=== PATIENT | female | born 1950 | race Caucasian/White ===

== ENCOUNTER 2019-10-09 06:00 | Outpatient (RCR) | payer MEDICARE, OTHER, SELFPAY | END 2019-11-08 00:01 | LOC: SPT 06:00 | PROVIDERS: Family Provider Family Medicine; Visit Provider Orthopaedic Surgery | DX: M25.512 Pain in left shoulder (principal); S42.295D Other nondisplaced fracture of upper end of left humerus, subsequent encounter for fracture with routine healing; X58.XXXD Exposure to other specified factors, subsequent encounter | CPT/HCPCS: 97110 ×3; G0283 ×3 ==

== ENCOUNTER 2019-11-09 06:00 | Outpatient (RCR) | payer MEDICARE, OTHER, SELFPAY | END 2019-12-09 23:59 | disposition home or self-care (01) | LOC: SPT 06:00 | PROVIDERS: Family Provider Family Medicine; PCP Family Medicine; Visit Provider Orthopaedic Surgery | DX: S42.202D Unspecified fracture of upper end of left humerus, subsequent encounter for fracture with routine healing (principal); X58.XXXD Exposure to other specified factors, subsequent encounter ==

== ENCOUNTER 2019-12-13 12:34 | Outpatient (CLI) | payer MEDICARE, OTHER, SELFPAY ==
--- NOTE | 2019-12-13 12:50 | XR_ITS ---
WS: [id number] KNEES AP STANDING TECHNIQUE: Bilateral AP weightbearing view. CLINICAL INFORMATION: BILATERAL KNEE PAIN COMPARISON: None. FINDINGS: Moderate to advanced degenerative arthritis both knees with medial compartment narrowing. Hypertrophi c changes along the joint line. Hypertrophic patella bilaterally moderate degenerative narrowing at t he patellofemoral articulations. XR/[place] [id number] IMPRESSION: Moderate to advanced tricompartmental arthritis both knees worse in the medial joint compartments.
== END 2019-12-13 12:35 | disposition home or self-care (01) ==
LOC: RAD 12:39
PROVIDERS: Family Provider Family Medicine; PCP Family Medicine; Visit Provider Orthopaedic Surgery
DX: M13.862 Other specified arthritis, left knee (principal); M13.861 Other specified arthritis, right knee
CPT/HCPCS: 73565

== ENCOUNTER 2019-12-21 10:42 | Outpatient (CLI) | payer MEDICARE, OTHER, SELFPAY ==
--- NOTE | 2019-12-21 10:53 | XRR_ITS ---
PROCEDURE INFORMATION: Exam: XR Abdomen, 2 Views Exam date and time: 12/21/2019 10:54 AM Age: 69 years old Clinical indication: Condition or disease; Other: Cath obstruction subsequent/esrd/dependent on renal dialysis; Prior surgery; Surgery date: 6+ months; Surgery type: Dialysis catheter TECHNIQUE: Imaging protocol: XR of the abdomen. Views: 2 Views. COMPARISON: CR Abdomen 2 views [id number] 10/10/2019 12:44 PM FINDINGS: Tubes, catheters and devices: Peritoneal dialysis catheter within the left pelvis. Gastrointestinal tract: bowel gas pattern is nonspecific. Air filled large bowel including distal rectal gas. Moderate amount stool throughout the large bowel. Medicinal capsule Intraperitoneal space: Normal. No free air. Bones/joints: Unremarkable for age. XR/XR abdomen min 2V [id number] IMPRESSION: 1. Peritoneal dialysis catheter within the left pelvis. 2. Bowel gas pattern is nonspecific. Air filled large bowel including distal rectal gas. 3. Moderate amount stool throughout the large bowel.
== END 2019-12-21 10:43 | disposition home or self-care (01) ==
PROVIDERS: Family Provider Family Medicine; PCP Family Medicine; Visit Provider Internal Medicine Nephrology
DX: T85.691D Other mechanical complication of intraperitoneal dialysis catheter, subsequent encounter (principal); N18.6 End stage renal disease; Z99.2 Dependence on renal dialysis
CPT/HCPCS: 74019

== ENCOUNTER 2020-01-10 11:29 | Emergency (ER) | payer MEDICARE, OTHER, SELFPAY ==
[2020-01-10 11:36] VITALS: BP 109/58; PULSE 79; RESP 16; TEMP 37; O2SAT 100; BMI 27.1
--- NOTE | 2020-01-10 11:47 | XR_ITS ---
WS: [id number] XR chest 1V portable [id number] REASON FOR EXAM: dizzness FINDINGS: Comparisons were made to August 24, 2019. There is elevation of the right hemidiaphragm with atelectasis in the right lower lung. Slight fullne ss off the right hilum is seen. A Mediport is seen extending from the left side. There is postop changes in the axilla on the left. The left shoulder shows a permeated pattern a fracture line is not seen but metastatic changes is fatemeh pected. XR/XR chest 1V portable [id number] IMPRESSION: Atelectasis of the right right lower lung with a nodule in the right hilum. Suspected destructive changes in the left proximal humerus. Postop changes in the axilla on the left. A Mediport is seen in good position extends from the left side.
--- NOTE | 2020-01-10 11:47 | ECG_ITS ---
Measurements Intervals [place] Rate: 75 P: 65 NE: 162 QRS: -18 QRSD: 118 T: 47 QT: 414 QTc: 463 SINUS RHYTHM INCOMPLETE RIGHT BUNDLE BRANCH BLOCK SEPTAL MYOCARDIAL INFARCTION , PROBABLY OLD [40+ ms Q WAVE IN V1/V2] Compared to ECG 06/14/2019 09:24:00 Incomplete right bundle-branch block now present Myocardial infarct finding now present Left-axis deviation no longer present Electronically Signed On 01-10-2020 13:18:05 RECEIVING WORKER by Elsie Villagomez M.D. [id number] valdes
--- NOTE | 2020-01-10 14:33 | CT_ITS ---
WS: [id number] CT scan of the chest Without IV contrast, CT scan of the abdomen and pelvis without IV contrast an d oral contrast. Additional two-dimensional coronal and sagittal reconstruction was performed. 020 Clinical Data: elevated right diaphragm and metastatic changes left humerus Comparison: CT abdomen pelvis, 01/28/2018. DLP: 1278.[address] scans at [facility] use at least one of these dose optimization techniques: automat ed exposure control; mA and/or kV adjustment per patient size (includes targeted exams where dose is matched to clinical indication); or iterative reconstruction. Findings: Chest: There is a moderate right pleural effusion. The left lung is clear. There are no nodules or masses. T here is coronary artery calcification. The heart size is normal with a minimal pericardial effusion. There are clips in the left axilla from surgery. The pulmonary arterial system and thoracic aorta demonstrate no abnormalities or dilatations. There i s atherosclerotic calcification of the thoracic aorta. There is no axillary or significant mediastinal adenopathy. The bones of the thorax show no fractures or evidence of metastatic disease. Abdomen/pelvis: The gallbladder shows calcification of the wall and there may be small gallstones. The liver, spleen, adrenal glands and pancreas are normal. The kidneys show no cysts, masses, hydronephrosis or renal calculi. The abdominal aorta is normal in size with calcification in the wall. No appendicitis or diverticulitis is seen. The small bowel, stomach and colon show only fecal materia l throughout the colon. No abscess, adenopathy, ascites, mass, obstruction or free air is seen. The b ladder is unremarkable. There are bilateral fat-containing inguinal hernias. The uterus shows calcifi cation probably from a uterine leiomyoma.. There is a tube curled in the inferior aspect of the abdom en. The bones of the lower thorax, lumbar spine, pelvis, and hips show no metastatic lesions. There i s degenerative disc narrowing at L2-L3.. CT/CT chest abd pel wo con Impression: 1. Moderate right pleural effusion. 2. Gallbladder wall calcification with possible small gallstones. 3. Tube curled in the pelvis overlying the bladder.
--- NOTE | 2020-01-10 14:33 | CT_ITS ---
WS: [id number] CT scan of the left arm and humerus. Additional two-dimensional coronal and sagittal reconstruction w as performed. MIP images were also performed. 01/10/2020 Clinical Data: metastatic changes proximal humerus Comparison: Left shoulder x-ray, 10/25/2019. DLP: 2704.43 mGy-cm All CT scans at [facility] use at least one of these dose optimization techniques: automat ed exposure control; mA and/or kV adjustment per patient size (includes targeted exams where dose is matched to clinical indication); or iterative reconstruction. Findings: The comminuted impacted fracture of the left humeral neck shows periosteal new bone formation. The fr acture lines are still visible. The shaft of the humerus does not show any evidence of metastatic dis ease. The visualized elbow is unremarkable. CT/CT humerus LT wo con* [id number] Impression: Healing fracture of the left humeral neck.
--- NOTE | 2020-01-10 14:42 | PC.NURSE ---
PHYSICAL ASSESSMENT Chief Complaint: Dizzy Hx: Started after dialysis last night. GENERAL / NEURO / PSYCH: Alert and oriented x 4 GIOVANI COMA SCORE: 15 HEENT: No facial asymmetry noted. Mucous membranes are pink. RESPIRATORY: Denies complaints CVS: Capillary refill less than 2 seconds. Pulses within normal limits. GI / : Abdomen soft and nontender and normal bowel sounds. SKIN: Skin intact. Skin is warm and dry. Normal skin turgor. - Patient resting at this time. No needs.
[2020-01-10 15:06] LABS: Influenza A by IFA Negative (Negative); Influenza B by IFA Negative (Negative)
--- NOTE | 2020-01-10 15:07 | W.ED.DIZZY ---
HPI - Dizziness General: Chief Complaint: Dizziness Stated Complaint: DIZZY Time Seen by Provider: 01/10/20 14:25 History of Present Illness: HPI Narrative: Patient with history of node in lung with lymph node biopsies left side. In here days to come from dialysis and was dizzy prior to then dizzy with movement of her head but while she still her thing feels fine she went down to [facility] saw Dr. Mendez after dialysis and he sent her up here no testing was done except blood test done at dialysis MD elicited complaint: dizziness and disequilibrium Onset (ago): hour(s) Timing: gradual onset Severity: mild Description: sense of movement Exacerbating factors: change in body position Relieving factors: remaining still Associated symptoms: Reports no associated symptoms and headache(s); Denies chest pain, chills, nausea, nasal congestion or vomiting Associated neuro symptoms: Reports no associated symptoms Review of Systems Const: Denies: fever, chills or body aches Eyes: Denies: change in vision or blurry vision ENMT: Denies: throat pain or nasal congestion Card: Denies: chest pain or shortness of breath on exertion Resp: Denies: shortness of breath, productive cough or non-productive cough GI: Denies: abdominal pain, nausea or vomiting Musc: Denies: extremity pain Skin/Breast: Denies: rash Neuro: Reports: headache and other (Dizziness with movement okay while sitting still) Psych: Denies: anxiety or depression Dave/Lymph: Denies: easy bruising PFSH ED PFSH: Social History Smoking and tobacco status: never smoked Alcohol intake: never Physical Exam Const: COMMON NORMALS: no apparent distress, average body habitus, oriented x3 and alert HENMT: COMMON NORMALS: normocephalic HEAD & SCALP: normal to inspection and normocephalic FACE & SINUS: normal facial exam Eye: COMMON NORMALS: conjunctivae normal GENERAL EYE: normal appearance of both eyes CONJUNCTIVA: Yes conjunctivae normal Neck/C-Spine: COMMON NORMALS: no JVD Chest: COMMONS NORMALS: inspection of chest normal Resp: COMMON NORMALS: normal respiratory effort and clear to auscultation bilaterally AUSCULTATION: clear to auscultation bilaterally Cardio: COMMON NORMALS: no JVD, regular rate and regular rhythm RATE: regular rate RHYTHM: regular rhythm GI: COMMON NORMALS: normal to inspection, nondistended, normoactive bowel sounds Extremity: COMMON NORMALS: normal to inspection and full ROM Neuro: COMMON NORMALS: oriented x3, CN's II-XII intact bilaterally and moves all extremities SENSORIUM/ORIENTATION: Yes alert Course Vital Signs: Vital signs: Vital Signs Temperature 98.6 F 01/10/20 11:36 Pulse Rate 74 01/10/20 16:30 Respiratory Rate 17 01/10/20 16:30 Blood Pressure 127/67 01/10/20 16:30 Pulse Oximetry 98 01/10/20 16:30 MDM - Dizziness MDM Narrative: Medical decision making narrative: Discussed case with Dr. Lion Lab Data: Labs: Lab Results 01/10/20 01/10/20 01/10/20 Range/Units 14:40 15:51 15:51 WBC 12.2 H (4.0-10.0) 10^3/ uL RBC 3.42 L (4.1-5.3) 10^6/u L Hgb 10.4 L (11.5-15.3) g/dL Hct 30.1 L (37.0-47.0) % MCV 88.0 (81-99) fL MCH 30.4 (28.0-34.0) pg MCHC 34.6 (30.0-36.0) g/dL RDW 14.4 (12.1-15.1) % Plt Count 296 (130-400) 10^3/c mm MPV 10.8 H (7.4-10.4) fL Neut % (Auto) 78.9 % Lymph % (Auto) 13.0 % Moody % (Auto) 4.9 % Eos % (Auto) 0.8 % Baso % (Auto) 0.4 % Neut # (Auto) 9.6 H (1.8-7.7) 10^3/u L Lymph # (Auto) 1.6 (0.8-4.8) 10^3/u L Moody # (Auto) 0.6 (0.2-0.9) 10^3/u L Eos # (Auto) 0.1 (0.0-0.8) 10^3/u L Baso # (Auto) 0.1 (0.0-0.1) 10^3/u L Nucleated RBC % (a uto) 0 % Nucleated RBCs # 0.0 /100WBC Sodium 133 L (136-145) mmol/L Potassium 3.7 (3.5-5.1) mmol/L Chloride 88 L (98-107) mmol/L Carbon Dioxide 27 (22-29) mmol/L Anion Gap 21.7 H (5-19) BUN 105 H* (8-23) mg/dL Creatinine 6.1 H* (0.5-0.9) mg/dL Glucose 205 H (65-115) mg/dL Calcium 9.6 (8.5-10.5) mg/dL Total Bilirubin 0.4 (0.15-1.2) mg/dL AST 11 (0-32) U/L ALT 14 (0-33) U/L Alkaline Phosphata se 92 (35-105) IU/L Total Protein 7.9 (6.6-8.7) g/dL Albumin 4.1 (3.5-5.2) g/dL Globulin 3.8 (1.3-4.6) g/dL Influenza Type A A g Negative (Negative) POC Influenza B Ag Negative (Negative) Discharge Plan Discharge Prescriptions: No Action tamsulosin 0.4 mg capsule 0.4 mg PO DAILY RF: 0 atorvastatin 20 mg tablet 20 mg PO DAILY RF: 0 metolazone 5 mg tablet 5 mg PO DAILY RF: 0 amlodipine 5 mg tablet 10 mg PO DAILY RF: 0 furosemide [Lasix] 80 mg tablet 80 mg PO QAM RF: 0 levothyroxine 200 mcg capsule 200 mcg PO DAILY RF: 0 ferrous sulfate 325 mg (65 mg iron) tablet 325 mg PO DAILY RF: 0 amitriptyline 10 mg tablet 100 mg PO DAILY RF: 0 losartan 50 mg tablet 50 mg PO DAILY RF: 0 potassium chloride 10 mEq capsule, extended release 20 meq PO DAILY RF: 0 torsemide 100 mg tablet 50 mg PO DAILY RF: 0 calcitriol 0.5 mcg Capsule 0.5 mcg PO DAILY RF: 0 ropinirole 0.5 mg tablet 0.5 mg PO BEDTIME RF: 0 Aldactone 50 mg Tablet 50 mg PO DAILY RF: 0 Novolog Flexpen U-100 Insulin 100 unit/mL (3 mL) insulin pen See Rx Instructions .ROUTE .COMPLEX RF: 0 Tresiba FlexTouch U-100 100 unit/mL (3 mL) insulin pen See Rx Instructions .ROUTE .COMPLEX RF: 0 RenaPlex-D 800 mcg-12.5 mg -2,000 unit tablet 1 tab PO DAILY RF: 0 Coding Level of Care Code ED Malt Specifications Control Assistant for Chg Fwd Exam Comprehensive
[2020-01-10 15:56] LABS: Basophils # 0.1 10^3/uL (0.0-0.1); Basophils % 0.4 %; Eosinophils # 0.1 10^3/uL (0.0-0.8); Eosinophils % 0.8 %; Hematocrit 30.1 % (37.0-47.0); Hemoglobin 10.4 g/dL (11.5-15.3); Lymphocytes # 1.6 10^3/uL (0.8-4.8); Mean Corpuscular HGB Conc 34.6 g/dL (30.0-36.0); Mean Corpuscular Hemoglobin 30.4 pg (28.0-34.0); Mean Platelet Volume 10.8 fL (7.4-10.4); Monocytes # 0.6 10^3/uL (0.2-0.9); Monocytes % 4.9 %; Neutrophils # 9.6 10^3/uL (1.8-7.7); Neutrophils % 78.9 %; Nucleated Red Blood Cells % 0 %; Platelet Count 296 10^3/cmm (130-400); Red Blood Count 3.42 10^6/uL (4.1-5.3); Red Cell Distribution Width 14.4 % (12.1-15.1); White Blood Count 12.2 10^3/uL (4.0-10.0)
[2020-01-10 16:11] LABS: Alanine Aminotransferase 14 U/L (0-33); Albumin Level 4.1 g/dL (3.5-5.2); Alkaline Phosphatase 92 IU/L (35-105); Anion Gap 21.7 (5-19); Aspartate Amino Transferase 11 U/L (0-32); Calcium 9.6 mg/dL (8.5-10.5); Carbon Dioxide 27 mmol/L (22-29); Chloride 88 mmol/L (98-107); Globulin 3.8 g/dL (1.3-4.6); Glucose 205 mg/dL (65-115); Potassium 3.7 mmol/L (3.5-5.1); Sodium 133 mmol/L (136-145); Total Bilirubin 0.4 mg/dL (0.15-1.2); Total Protein 7.9 g/dL (6.6-8.7)
[2020-01-10 16:20] LABS: Blood Urea Nitrogen 105 mg/dL (8-23)
--- NOTE | 2020-01-10 16:24 | PC.NURSE ---
BUN 105 creatinine 6.1. Anya notified.
[2020-01-10] MEDS: meclizine 25 mg tablet PO (16:28)
[2020-01-10 16:30] VITALS: BP 127/67; PULSE 74; RESP 17; O2SAT 98
[2020-01-10 17:06] VITALS: BP 110/75; PULSE 70; RESP 14; O2SAT 98
== END 2020-01-10 17:07 | disposition home or self-care (01) ==
PROVIDERS: Emergency Provider Nurse Practitioner Family; Family Provider Family Medicine; PCP Family Medicine
DX: R42 Dizziness and giddiness (principal); R51 Headache; Z99.2 Dependence on renal dialysis
CPT/HCPCS: 36415; 71045; 71250; 73200; 74176; 80053; 85025; 87804; 93005; 99281; 99283; J8597

== ENCOUNTER 2020-02-06 08:22 | Outpatient (CLI) | payer MEDICARE, OTHER, SELFPAY ==
--- NOTE | 2020-02-06 08:31 | US_ITS ---
WS: [id number] ULTRASOUND-GUIDED THORACENTESIS, diagnostic and therapeutic. HISTORY: PLEURAL EFFUSION(RT SIDE) Procedure, risks, and complications were explained to the patient. With the patient in an upright pos ition, the skin over the RIGHT posterior thorax was cleansed with ChloraPrep and anesthetized with 1% buffered lidocaine. A 5 Danish Yueh needle is inserted into the pleural fluid without complication. Approximately 1200 cc of clear pleural fluid is removed without difficulty. Pleural fluid specimen collected and sent for analysis as requested. / thoracentesis [id number] IMPRESSION: 1. RIGHT thoracentesis yielding 1200 cc of fluid. 2. Chest radiograph to follow to evaluate for pneumothorax. 3. Pleural fluid collected and sent for analysis as requested.
[2020-02-06 09:15] VITALS: BP 120/63; PULSE 90; RESP 18; TEMP 36.8; O2SAT 95; BMI 27.4
[2020-02-06 09:59] LABS: INR 1.07 (0.8-1.2)
--- NOTE | 2020-02-06 10:25 | XR_ITS ---
WS: [id number] PORTABLE CHEST HISTORY: thoracentesis COMPARISON: None available. Status post RIGHT thoracentesis. There is very minimal residual pleural fluid. Slight elevation of th e RIGHT hemidiaphragm with RIGHT basilar atelectasis. LEFT subclavian Port-A-Cath with tip in the dis ginette SVC. Prior LEFT axillary abdoulaye dissection. LEFT lung is clear. No pneumothorax. Cardiac size: Normal. Mediastinum/Aorta: Mild atherosclerosis aorta. Known healing fracture in the proximal LEFT humerus. XR/XR chest 1V portable [id number] IMPRESSION: 1. Small residual RIGHT pleural effusion and RIGHT basilar atelectasis. 2. No pneumothorax postthoracentesis.
== END 2020-02-06 08:23 | disposition home or self-care (01) ==
LOC: RAD 08:28
PROVIDERS: Radiology Diagnostic Radiology; Family Provider Family Medicine; PCP Family Medicine; Visit Provider Internal Medicine Nephrology
DX: J90 Pleural effusion, not elsewhere classified (principal); J98.11 Atelectasis; J93.83 Other pneumothorax
CPT/HCPCS: 32555; 36591; 36592; 71045; 82945; 85610

== ENCOUNTER 2020-02-23 09:49 | Outpatient (CLI) | payer MEDICARE, OTHER, SELFPAY ==
--- NOTE | 2020-02-23 | XR_ITS ---
WS: [id number] CHEST 2 VIEWS HISTORY: PLEURAL EFFUSION COMPARISON: 02/06/2020 Lungs: Slight elevation of the RIGHT hemidiaphragm. Elevation of the diaphragms likely due to a combi nation of a small effusion with atelectasis. No pneumothorax. LEFT lung is clear. Cardiac size: Normal. Mediastinum/Aorta: Mild atherosclerosis aorta. LEFT subclavian Port-A-Cath in good position. Bones: Healed fracture proximal LEFT humerus. Prior LEFT axillary abdoulaye dissection. XR/XR chest 2V* [id number] IMPRESSION: 1. Volume loss and increased density at the RIGHT lung base. Probably combinat ion of subsegmental atelectasis and small effusion. Progressed since 02/06/2020. 2. No pneumonia.
== END 2020-02-23 09:50 | disposition home or self-care (01) ==
LOC: RAD 09:54
PROVIDERS: Family Provider Family Medicine; PCP Family Medicine; Visit Provider Internal Medicine Nephrology
DX: J91.8 Pleural effusion in other conditions classified elsewhere (principal)
CPT/HCPCS: 71046

== ENCOUNTER 2020-03-16 10:08 | Day surgery (SDC) | payer MEDICARE, OTHER, SELFPAY ==
[2020-03-15 15:06] VITALS: BMI 26.7
[2020-03-16 10:23] VITALS: BP 112/66; PULSE 77; RESP 18; TEMP 36.1; O2SAT 96
--- NOTE | 2020-03-16 11:21 | P.HPUD_ITS ---
Surgery/Procedure H&P Update DATE OF PROCEDURE: March 16, 2020 DATE H&P PERFORMED: 03/15/20 H&P UPDATE INFORMATION: I have reviewed H&P completed within last 30 days, I have examined patient prior to procedure and No changes to prior documentation PLANNED PROCEDURE: Patient is here for right-sided Pleurx catheter placement. Operation Date: 03/16/20 12:10 Proposed Procedures p [place] Drain Placement Indwelling Pleural Catheter Insertion [id number] J90(Not Applicable) - Mitchell Hinkle MD
--- NOTE | 2020-03-16 12:44 | PM.OP ---
Operative Report Date of procedure: March 16, 2020 Pre-op Diagnosis: Right-sided recurrent pleural effusion Post-op diagnosis: same Brief History: 69-year-old female with recurrent right-sided pleural fluid requiring thoracentesis coming in for Pleurx catheter placement. The eventual plan is to perform pleurodesis as outpatient. Procedure: Name of the procedure: Right-sided Pleurx catheter placement Anesthesia: Monitor anesthesia care. Local: 1% lidocaine 13 mL. Fentanyl 25 mcg, Versed 1 mg. Description of the procedure: The patient was brought to the preop area and underwent conscious sedation. The patient was placed in left lateral position. Using the ultrasound a safe fluid pocket was identified in the right eighth intercostal space in the midaxillary line. The site was marked. The site was then prepared using sterile technique. 1% lidocaine was used to anesthetize the skin and subcutaneous tissue periosteum and the pleural space was entered. Straw-colored fluid was aspirated. The introducer needle was then introduced into the pleural space. The guide wire was introduced and left in place. About 6 cm from the initial introduction site in the anterolateral chest wall a second incision was made. The pleural catheter was then tunneled under the skin with the help of a trocar. The initial site was then dilated and the Pleurx catheter was advanced into the pleural space without any difficulty. The incision sites were sutured. There was good hemostasis. 1600 cc of straw-colored fluid was drained. Pleural fluid is sent for analysis including cell count and differential, pH, LDH, glucose, protein, Gram stain culture, fungal stain culture, AFB stain and culture, cytology. Complications: None Follow-up: 1. The patient will follow-up with me in 10 days time for removal of sutures.
--- NOTE | 2020-03-16 12:47 | XR_ITS ---
WS: [id number] XR chest 1V portable [id number] REASON FOR EXAM: Post Pleurx catheter placement FINDINGS: Pleurx catheter is seen placed in the lower right chest. The Mediport is seen in good position extending from the left side. There is a healing fracture of the surgical neck of the left humerus. There is no fluid is now seen in the right lung base. There is arteriosclerotic changes seen in the arch the aorta. XR/XR chest 1V portable [id number] IMPRESSION: Markedly improved right pleural effusion after insertion of a Pleurx catheter.
[2020-03-16 12:51] VITALS: BP 97/48; PULSE 71; RESP 18; TEMP 36.1; O2SAT 96
[2020-03-16 13:09] LABS: Body Fluid Polynuclear #Cells 0.009 10^3/uL; Body Fluid WBC 80 /uL; Monocytes # Body Fluid 0.071 10^3/uL; RBC, Body Fluid 1 10^3/uL (0-0)
[2020-03-16 13:36] LABS: LDH Body Fluid 37 U/L; Total Protein Pleural Fluid 1.1 g/dL
[2020-03-16 14:04] LABS: Apprearance, Body Fluid CLEAR (CLEAR); Color, Body Fluid PALE YELLOW (PALE YELLOW)
--- NOTE | 2020-03-16 14:04 | SUR.PHASEII ---
[id number] Discharge: [facility]yler fritz [facility] contacted regarding referral for home health services. [place] drain to be drained daily as ordered. Patient to be called within 24 hours for admission to home health.
== END 2020-03-16 13:45 | disposition home or self-care (01) ==
PROVIDERS: PCP Family Medicine; Visit Provider Internal Medicine Critical Care Medicine
PROC: (CPT 32550; principal; 2020-03-16 12:00)
DX: J90 Pleural effusion, not elsewhere classified (principal); I10 Essential (primary) hypertension; Z85.3 Personal history of malignant neoplasm of breast; E11.9 Type 2 diabetes mellitus without complications; Z79.4 Long term (current) use of insulin; E03.9 Hypothyroidism, unspecified
CPT/HCPCS: 32550; 12345; 71045; 80500; 82945; 83615; 83986; 84157; 87070; 87075; 87205; 88112; 88305; 89050; C1729; J1642; T1015-U1

== ENCOUNTER 2020-03-28 13:20 | Day surgery (SDC) | payer MEDICARE, OTHER, SELFPAY ==
[2020-03-27 10:12] VITALS: BMI 26.7
--- NOTE | 2020-03-28 | SCC_ITS ---
Procedure Done: Right IJ dual-lumen tunneled dialysis catheter placement 62.7 seconds of fluoroscopic guidance, for a cumulative dose of 6.69 mGy, was provided to Dr. Kaufman by the radiology department. C-arm images of the chest were saved for the patient's permanent record. [facility]
--- NOTE | 2020-03-28 | SC_ITS ---
WS: [id number] INTRAOPERATIVE TECHNIQUE: 3 Spot fluoroscopic images for intraoperative purposes. FLUOROSCOPY TIME: 62.7 seconds CLINICAL INFORMATION: DIALYSIS CATH COMPARISON: None. FINDINGS: Right dual-lumen central venous dialysis catheter with tip in the distal SVC. Left Port-A-Cath with t ip in the right atrium. No pneumothorax. SC/C-arm FL for CVA [id number] IMPRESSION: Images obtained for intraoperative purposes.
--- NOTE | 2020-03-28 11:11 | P.ANESASSM_ITS ---
Documented by User: Neeta Hwang 03/28/20 11:14 Pre-Anesthetic Assessment Pre-Anesthetic Assessment: Height/Weight: Height 1.6 m Weight 68.492 kg Preop Diagnosis: Right-sided recurrent pleural effusion Proposed Procedure: Operation Date: 03/28/20 14:55 Proposed Procedures p Split Jorge Catheter Placement(Not Applicable) - Delbert Kaufman MD CV/HEM: CV/HEM: HTN and OK (septal mI, RBBB) : : Chronic renal failure (ESRD on dialysis (peritoneal)) Metabolic: Metabolic: DM, Hyperlipidemia and Thyroid Anesthetic Plan: ASA status: 4 Anesthesia: MAC Risk of > 500 ml blood loss (7ml/kg in children): No PFSH Anesthesia PFSH: Medical History Cataract Closed fracture of left proximal humerus History of peritoneal dialysis HTN (hypertension) Hx of breast cancer Hyperlipidemia Hypothyroidism Microcytic anemia Type 2 diabetes mellitus Surgical History H/O knee surgery H/O skin graft H/O tubal ligation History of kidney surgery History of lumpectomy of left breast History of surgery on arm Hx of cataract surgery Hx of tonsillectomy S/P dialysis catheter insertion Family History Mother Stroke Father Stroke Social History Smoking and tobacco status: never smoked Alcohol intake: never Lives independently: Yes Household members: spouse Marital status: Current occupational status: employed History of recent travel: No Current gender identity: Female Data Anesthesia Cardiac Studies: No Data to Display Documented by User: Delbert Hatfield Jr, CRNA 03/28/20 14:22 Pre-Anesthetic Assessment Pre-Anesthetic Assessment: Preop Diagnosis: renal failure Proposed Pro cedure: Dialysis catheter Was Beta Jessa taken within 24 hours: N/A Last intake: 2300 Last Intake: 23:00 Social: Social History: No alcohol and No tobacco Exam: Pre-Anes Outpt Exam: alert, oriented x 3, clear to auscultation bilaterally and regular rate & rhythm Airway: Submandibular: WNL Cervical ROM: WNL MP: 2 Dentition: Full Pulmonary: Pulmonary: SOB CV/HEM: CV/HEM: Anemia, DVT (RLE 1971) and HTN : : Chronic renal failuer Hepatic: Hepatic: None reported GI: GI: None reported Metabolic: Metabolic: DM (avg 200-300) and Thyroid Musc/skel: Musc/skel: Lower Back Pain and OA/DJD Neuropsych: Neuropsych: None reported Anesthetic Plan: ASA status: 3 Anesthesia: Anesthesia Evaluation and MAC Risk of > 500 ml blood loss (7ml/kg in children): No PFSH Anesthesia PFSH: Medical History Cataract Closed fracture of left proximal humerus History of peritoneal dialysis HTN (hypertension) Hx of breast cancer Hyperlipidemia Hypothyroidism Microcytic anemia Type 2 diabetes mellitus Surgical History H/O knee surgery H/O skin graft H/O tubal ligation History of kidney surgery History of lumpectomy of left breast History of surgery on arm Hx of cataract surgery Hx of tonsillectomy S/P dialysis catheter insertion Family History Mother Stroke Father Stroke Social History Smoking and tobacco status: never smoked Alcohol intake: never Lives independently: Yes Household members: spouse Marital status: Current occupational status: employed History of recent travel: No Current gender identity: Female Data Anesthesia Cardiac Studies: No Data to Display
[2020-03-28 13:30] VITALS: BP 125/68; PULSE 70; RESP 18; TEMP 36.6; O2SAT 95
[2020-03-28] MEDS: sodium chloride 0.9% 1,000 ML 30 ML IV (14:35)
[2020-03-28] MEDS: vancomycin 500 MG in sodium chloride 0.9% (100 ml) 100 ML 200 MG IV (14:36)
--- NOTE | 2020-03-28 15:14 | W.PM.OPSUD ---
Surgery/Procedure H&P Update DATE OF PROCEDURE: March 28, 2020 DATE H&P PERFORMED: 03/15/20 H&P UPDATE INFORMATION: I have reviewed H&P completed within last 30 days, I have examined patient prior to procedure and No changes to prior documentation PREOP DIAGNOSIS: renal failure PRIMARY INDICATION FOR PROCEDURE: Inability to continue peritoneal dialysis due to pleural leak. PLANNED PROCEDURE: Operation Date: 03/28/20 14:55 Proposed Procedures p Split Jorge Catheter Placement(Not Applicable) - Delbert Kaufman MD
[2020-03-28] MEDS: lidocaine 1% INJ 20 mL INJECTION (16:07)
[2020-03-28] MEDS: heparin, porcine 1,000 unit/mL INJ 10 mL 6000 UNIT HE (16:08)
--- NOTE | 2020-03-28 16:32 | P.OP_ITS ---
Operative Report Date of procedure: March 28, 2020 Pre-op Diagnosis: renal failure Post-op diagnosis: same Procedure Done: Right IJ dual-lumen tunneled dialysis catheter placement Implants: Dual-lumen dialysis catheter Pathology: none sent Surgeon: Delbert Kaufman Anesthesia: MAC and Local (15 cc 1% lidocaine infiltrated locally) Complications: None: Post procedure chest x-ray pending Disposition: same day Brief History: Ms. Saab is a very pleasant 69-year-old female with chronic renal insufficiency. Original peritoneal dialysis is now not practical as she has a right pleural leak. Tunnel dialysis catheter which was recommended by her bankruptcy judge, Dr. Clark. Rationale for the procedure was carefully and frankly discussed. Appropriate consents have been reviewed and signed. Procedure: The entire chest was sterilely prepped and draped. With the patient in Trendelenburg position, and utilizing a modified Seldinger technique, the right jugular vein was engaged with a needle and easily aspirated of blood. Guidewire was placed and advanced without difficulty. The patient was returned to the supine position. The fluoroscopy was then used to confirm appropriate placement of the guidewire. Next, the dialysis catheter was measured to the appropriate length. A small incision was made laterally and inferiorly to the exit point of the guidewire. The dialysis catheter was then tunneled from this point medially to the point of exit of the guidewire on the chest wall after the tunnel had been infiltrated with 1% lidocaine. Velcro cuff was placed in this tunnel. Next, utilizing a series of dilators over the guidewire, under fluoroscopic guidance, the subcutaneous tract was dilated. Next, a dilator and tear-away sheath was placed over the guidewire and advanced under fluoroscopic guidance. Dilator and guidewire were removed. The dual-lumen dialysis catheter was then placed in the tear-away sheath as the tear-away sheath was removed. The entire system was interrogated with fluoroscopy to confirm appropriate position. Next, each lumen of the catheter was aspirated of air and blood and flushed with heparin solution. Securing caps and clamps were applied. The superior wound was closed with 4-0 Monocryll suture in a subcuticular fashion. The dialysis catheter was secured to the skin with 2-0 silk suture. A sterile dressing was applied. There were equal breath sounds bilaterally at the completion of the procedure. Post procedure chest x-ray will be obtained in recovery. We did family and marriage counsellor with the Ms. Saab and family at the completion of the procedure.
--- NOTE | 2020-03-28 16:42 | XRR_ITS ---
PROCEDURE INFORMATION: Exam: XR Chest, 1 View Exam date and time: 03/28/2020 4:57 PM Age: 69 years old Clinical indication: Device placement; Other: Jorge split catheter placement; Prior surgery; Surgery type: Port; Additional info: Post split jorge cath placement TECHNIQUE: Imaging protocol: XR of the chest Views: 1 view. COMPARISON: CR XR chest 1V portable [id number] 03/16/2020 1:04 PM FINDINGS: Tubes, catheters and devices: Tunneled right jugular hemodialysis catheter in place. Tip at cavoatrial junction. Left subclavian chest port in place. Right basilar PleurX chest drain in place. Lungs: Unremarkable. No consolidation. Pleural space: No pleural effusion. No pneumothorax. Heart/Mediastinum: No cardiomegaly. Vasculature: Mildly tortuous aorta with moderate arch atherosclerotic calcification. Bones/joints: Unremarkable. Soft tissues: Prior left breast surgery with left axillary clips in place. XR/XR chest 1V portable [id number] IMPRESSION: Tubes and catheters appear well-positioned.
[2020-03-28 16:45] VITALS: BP 119/54; PULSE 74; RESP 18; TEMP 36.4; O2SAT 93
[2020-03-28 17:13] VITALS: BP 145/68; PULSE 75; RESP 18; O2SAT 96
== END 2020-03-28 15:30 | disposition home or self-care (01) ==
PROVIDERS: PCP Family Medicine; Visit Provider Thoracic Surgery (Cardiothoracic Vascular Surgery)
PROC: (CPT 36561; principal; 2020-03-28 14:55)
DX: J90 Pleural effusion, not elsewhere classified (principal); E11.22 Type 2 diabetes mellitus with diabetic chronic kidney disease; I12.9 Hypertensive chronic kidney disease with stage 1 through stage 4 chronic kidney disease, or unspecified chronic kidney disease; N18.9 Chronic kidney disease, unspecified; E78.5 Hyperlipidemia, unspecified; E03.9 Hypothyroidism, unspecified; Z85.3 Personal history of malignant neoplasm of breast; M19.90 Unspecified osteoarthritis, unspecified site
CPT/HCPCS: 36561; 12345; 71045; 77001; 86850; 86900; C1750; J1644; J2001; J2704; J3010; J7030

== ENCOUNTER 2020-04-06 06:05 | Day surgery (SDC) | payer MEDICARE, OTHER, SELFPAY ==
[2020-04-06] VITALS (7 sets, daily range): BP systolic 116–135; BP diastolic 54–73; PULSE 78–81; RESP 18–20; TEMP 36.6–36.7; O2SAT 96–99
[2020-04-06 06:43] LABS: Glucose Point of Care 179 mg/dL (70-110)
[2020-04-06] MEDS: sodium chloride 0.9% 1,000 ML 30 ML IV (06:54)
--- NOTE | 2020-04-06 06:55 | W.PM.OPSUD ---
Surgery/Procedure H&P Update DATE OF PROCEDURE: April 06, 2020 DATE H&P PERFORMED: 03/27/20 H&P UPDATE INFORMATION: I have reviewed H&P completed within last 30 days, I have examined patient prior to procedure and No changes to prior documentation PREOP DIAGNOSIS: Recurrent right-sided pleural effusion PLANNED PROCEDURE: Right-sided pleurodesis with Pleurx catheter in place. Operation Date: 04/06/20 07:00 Proposed Procedures p Atkinson Drain Placement Indwelling Pleural Catheter Insertion [id number]/J91.8(Not Applicable) - Mitchell Hinkle MD
[2020-04-06] MEDS: midazolam 1 mg/mL INJ 2 mL IVP (07:20)
[2020-04-06] MEDS: lidocaine 1% INJ 20 mL XX (07:21)
--- NOTE | 2020-04-06 08:48 | PC.NURSE ---
NOTIFIED [facility] THAT DR LANG WANTED PTS POWER DRAIN TO BE DRAINED AT 1600 TODAY AND AGAIN AT 0600 TOMORROW MORNING. THEY SAID THAT HER NURSE WOULD BE THERE TODAY AND THAT THE CREAM MAKER NURSE WOULD BE THERE IN THE MORNING.
--- NOTE | 2020-04-06 08:51 | PC.NURSE ---
0720- PT 02 SAT STARTED TO DROP DURING PROCEDURE AFTER FENTANYL AND VERSED GIVEN. O2 AT 2L PER NC APPLIED, AND SATS BACK UP TO 99.
--- NOTE | 2020-04-06 08:54 | PC.NURSE ---
0745-PT RESTING, O2 REMOVED AND SATS STAYING ABOVE 95. HAVING PATIENT TURN EVERY 15 MIN AND PT TOLERATING THAT WELL. NO COMPLAINTS AT THIS TIME.
--- NOTE | 2020-04-06 09:31 | XRR_ITS ---
PROCEDURE INFORMATION: Exam: XR Chest, 1 View Exam date and time: 04/06/2020 9:45 AM Age: 69 years old Clinical indication: Screening exam; Other screening; Prior surgery; Surgery date: Post-operative (0-2 days); Surgery type: Post gray drain placement; Additional info: Post bronchoscopy TECHNIQUE: Imaging protocol: XR of the chest Views: 1 view. COMPARISON: CR XR chest 1V portable [id number] 03/28/2020 5:00 PM FINDINGS: Tubes, catheters and devices: Bilateral central venous catheters and right pleural drain again demonstrated. Lungs: Hyperinflation and mild interstitial prominence. Pleural space: No significant pleural effusion or pneumothorax. Heart/Mediastinum: Cardiac silhouette upper limits of normal in size. Vasculature: Calcification and ectasia of the thoracic aorta. Bones/joints: Degenerative change prior Soft tissues: Surgical clips in the left axilla. When correlating with the previous study, no significant interval changes are present. XR/XR chest 1V portable [id number] IMPRESSION: Stable appearance of the chest, not significantly changed from 03/28/2020 .
--- NOTE | 2020-04-06 09:32 | PM.ACPR ---
Procedure/Consent Time out: Time Out Performed: Yes Consent: Consent for Procedure: Consent obtained from patient Procedure Narrative: Name of the procedure: Right-sided pleurodesis using Pleurx catheter. Anesthetic: Lidocaine 1% 20 mL instilled into the pleural space, midazolam 1 mg, fentanyl 25 mcg. Description of the procedure: The Pleurx catheter was accessed. Last pleural drainage was about a week ago. 200 mL of straw-colored fluid was suctioned out. 20 mL of 1% lidocaine was then introduced into the pleural space. This was followed by 4 g of talc instilled into 50 cc syringes to a total of 100 cc. The talc was left in place for 1.5 hours. Repeat suctioning removed 100 cc of fluid. The patient tolerated the procedure well without any significant pain, development of shortness of breath or cardiac arrhythmia. Complications: None Follow-up: The plan is for her to drain her pleural space again at 4 PM today. Tomorrow morning she will have another session of drainage of the pleural fluid. After that she will get drained every day for the next 4 days. The patient follow-up with me in 2 weeks time in office. Acute Procedures Epistaxis Control: Time out performed: Yes
--- NOTE | 2020-04-06 09:42 | PC.NURSE ---
0938-CHEST XRAY DONE AND DR LANG LOOKED AT IT. LUNGS LOOK GOOD, AND PT OK TO GO HOME
--- NOTE | 2020-04-06 09:44 | PC.NURSE ---
4119- CALLED [facility] BACK AND LET THEM KNOW THAT THEY WOULD NEED TO SEE PT THE NEXT 4 DAYS TO DRAIN TUBE.
--- NOTE | 2020-04-06 10:41 | PC.NURSE ---
0720-200ml yellow fluid drained from glentana drain per Dr Hinkle using suction. Then 20ml lidocaine 1% instilled into drain, and 100ml talc solution instilled into drain. 0930-200ml yellow foamy fluid drained from glentana drain per Dr Hinkle using suction. During wait time, pt was turned every 15 min to rotate talc solution. Pt tolerated well
== END 2020-04-06 10:10 | disposition home or self-care (01) ==
PROVIDERS: PCP Family Medicine; Visit Provider Internal Medicine Critical Care Medicine
PROC: (CPT 32550; principal; 2020-04-06 07:00)
DX: J90 Pleural effusion, not elsewhere classified (principal)
CPT/HCPCS: 32550; 12345; 36416; 71045; 82962; 96374; 96375; J2001; J2250; J3010; J7030

== ENCOUNTER 2020-04-18 10:09 | Outpatient (CLI) | payer MEDICARE, OTHER, SELFPAY ==
--- NOTE | 2020-04-18 10:19 | XR_ITS ---
WS: [id number] Abdomen series, Flat and upright 04/18/2020 Clinical Data: CATHETER OBSTRUCTION/DEPENDENCE ON RENAL DIALYSIS/ESRD Comparison: KUB, 12/21/2019. Findings: There is a peritoneal dialysis catheter which enters the left side of the abdomen and is cu rled in the pelvis. There is also a catheter in the base of the right pleural space. There is a large bore catheter in the midportion of the abdomen. There is a large amount of fecal material throughout the colon. No abnormal masses or calcifications are present. Scattered air-fluid levels are seen on the erect film but there is no free air. No obstruction is present. XR/XR abdomen min 2V [id number] Impression: 1. Peritoneal dialysis catheter unchanged. 2. Large bore catheter in the mid abdomen. 3. Catheter at the base of the right pleural space unchanged. 4. Moderate generalized ileus.
== END 2020-04-18 10:10 | disposition home or self-care (01) ==
LOC: RAD 10:14
PROVIDERS: PCP Family Medicine; Visit Provider Internal Medicine Nephrology
DX: T85.691D Other mechanical complication of intraperitoneal dialysis catheter, subsequent encounter (principal); Z99.2 Dependence on renal dialysis; N18.6 End stage renal disease
CPT/HCPCS: 74019

== ENCOUNTER 2020-04-23 15:22 | Outpatient (CLI) | payer MEDICARE, OTHER, SELFPAY ==
--- NOTE | 2020-04-23 15:49 | XR_ITS ---
WS: [id number] XR chest 2V* [id number] REASON FOR EXAM: Status post pleurodesis FINDINGS: Left-sided pleurodesis shows mild blunting of the costophrenic angle. There is no pneumotho rax seen the triple-lumen catheter is seen in good position. A Mediport is seen in good position. There is mild thickening of the pleural space on the right side not seen on previous exam. XR/XR chest 2V* [id number] IMPRESSION: Mild thickening of the pleura along the lateral wall of the right lung Lumen catheter and Mediport unchanged. The right lung is hyper aerated in regards to the left.
== END 2020-04-23 15:23 | disposition home or self-care (01) ==
LOC: RAD 15:31
PROVIDERS: PCP Family Medicine; Visit Provider Internal Medicine Critical Care Medicine
DX: Z48.89 Encounter for other specified surgical aftercare (principal)
CPT/HCPCS: 71046

== ENCOUNTER 2020-05-01 09:15 | Inpatient (IN) | payer MEDICARE, OTHER, SELFPAY ==
[2020-05-01] VITALS (31 sets, daily range): BP systolic 113–155; BP diastolic 50–102; PULSE 61–95; RESP 15–29; TEMP 36.5–37.4; O2SAT 88–100; BMI 26.5
--- NOTE | 2020-05-01 09:28 | XR_ITS ---
WS: [id number] PORTABLE CHEST HISTORY: dyspnea/cough COMPARISON: 04/23/2020 RIGHT subclavian dialysis catheter remains unchanged in position. There is also Port-A-Cath present t hrough the LEFT subclavian vein with tip in the distal SVC. Lungs are clear and well expanded. No pleural effusion or pneumothorax. RIGHT thoracostomy tube is pr esent in the RIGHT lower thorax. No pneumothorax. Cardiac size: Normal. Mediastinum/Aorta: Mild atherosclerosis aorta. Healing pathological fracture involving the LEFT proximal humerus. Prior axillary abdoulaye dissection on the LEFT. XR/XR chest 1V portable [id number] IMPRESSION: 1. No pneumonia. 2. RIGHT lower thorax thoracostomy tube with no pneumothorax. No residual effu roseanne.
--- NOTE | 2020-05-01 09:46 | US_ITS ---
WS: [id number] Abdominal ultrasound, limited. History: Evaluate for ascites. Comparison: None. All 4 quadrants are imaged by ultrasound to evaluate for ascites. There is no peritoneal fluid identi fied. US/US abdomen limited [id number] IMPRESSION: No peritoneal ascites.
[2020-05-01 09:51] LABS: Basophils # 0.1 10^3/uL (0.0-0.1); Basophils % 0.3 %; Eosinophils % 0.1 %; Hematocrit 29.1 % (37.0-47.0); Hemoglobin 9.3 g/dL (11.5-15.3); Lymphocytes # 1.1 10^3/uL (0.8-4.8); Lymphocytes % 4.3 %; Mean Corpuscular Hemoglobin 28.5 pg (28.0-34.0); Mean Corpuscular Volume 89.3 fL (81-99); Mean Platelet Volume 10.6 fL (7.4-10.4); Monocytes # 0.9 10^3/uL (0.2-0.9); Monocytes % 3.3 %; Neutrophils # 23.5 10^3/uL (1.8-7.7); Neutrophils % 91.1 %; Nucleated Red Blood Cells % 0 %; Platelet Count 420 10^3/cmm (130-400); Red Blood Count 3.26 10^6/uL (4.1-5.3); Red Cell Distribution Width 15.8 % (12.1-15.1); White Blood Count 25.9 10^3/uL (4.0-10.0)
[2020-05-01 10:09] LABS: Lactate (Lactic Acid level) 2.3 mmol/L (0.5-2.2)
[2020-05-01] MEDS: ondansetron 2 mg/ML SDV 2 mL 4 MG IVP (10:12)
[2020-05-01 10:13] LABS: Alanine Aminotransferase 11 U/L (0-33); Albumin Level 3.4 g/dL (3.5-5.2); Alkaline Phosphatase 123 IU/L (35-105); Aspartate Amino Transferase 12 U/L (0-32); Blood Urea Nitrogen 56 mg/dL (8-23); Calcium 9.4 mg/dL (8.5-10.5); Carbon Dioxide 22 mmol/L (22-29); Chloride 89 mmol/L (98-107); Globulin 4.5 g/dL (1.3-4.6); Glucose 331 mg/dL (65-115); Lipase 20 U/L (13-60); Osmolality Calculated 275 mOsm/kg (285-295); Sodium 127 mmol/L (136-145); Total Bilirubin 0.7 mg/dL (0.15-1.2); Total Protein 7.9 g/dL (6.6-8.7)
[2020-05-01] MEDS: morphine 4 mg/mL SDV 1 mL IVP (10:15)
--- NOTE | 2020-05-01 11:06 | CT_ITS ---
WS: [id number] CT ABDOMEN AND PELVIS WITH CONTRAST HISTORY: Abdominal pain. Pain around dialysis catheter insertion site. TECHNIQUE: Imaging performed of the abdomen and pelvis with IV contrast. Single phase imaging of the abdomen. Coronal and sagittal reformats are submitted. All CT scans at [facility] use at least one of these dose optimization techniques: automated exposure control; mA and/or kV adjustment per patient size (includes targeted exams where dose is matched to clinical indication); or iterativ e reconstruction. IV CONTRAST: Visipaque 320; 75 mL IV. Oral contrast: No DLP: 573.12 mGy.cm COMPARISON: 01/10/2020 Lower thorax: [place] drain is noted at the RIGHT inferior thorax. There is no associated fluid remain ing. Heart is normal size. Small hiatal hernia. Liver/biliary system: Liver is moderately enlarged with mild diffuse intrahepatic duct dilatation. Gallbladder: Slightly contracted gallbladder with partially calcified gallbladder wall. No adjacent i nflammation. Pancreas: Atrophied pancreas. Spleen: Normal. Adrenal glands: Normal. Right kidney: Mild perinephric stranding with no obstruction. Left kidney: Mild perinephric stranding with no obstruction. Aorta: Heavy calcification with no aneurysm. Lymphadenopathy: None. Free fluid: None. GI tract: There is no GI tract obstruction. There is marked thickening of the distal small bowel at t he site of the dialysis catheter insertion. Abdominal wall: Marked abnormal appearance of the abdominal wall. The dialysis catheter enters the mi dline of the abdominal wall at the level of S1. At the insertion site of the catheter there is marked inflammation of the abdominal wall musculature and the soft tissues. Foci of air within the abdomina l wall musculature. The dialysis catheter is within the anterior pelvis and there is a large amount o f inflammation surrounding the peritoneal catheter and inseparable from the small bowel loops over th e lower pelvis. Pelvis: Well-distended urinary bladder. Uterus remains midline and atrophic. Bones: Unremarkable. Notified Florian Gerber DO at 05/01/2020 1:[address]/CT abdomen pelvis w con* [id number] IMPRESSION: 1. Significant inflammatory process involving the dialysis catheter insertion site, abdominal wall musculature and soft tissue and also the adjacent underlyi ng small bowel. Significant inflammatory process but no abscess. 2. Dissecting air along the LEFT abdominal wall. May be due to recent catheter manipulation or infection. 3. No ascites. 4. Calcified gallbladder wall. 5. Minimal intrahepatic bile duct dilatation of uncertain etiology. 6. Luis drain at the RIGHT inferior thorax with no adjacent fluid.
[2020-05-01] MEDS: cefTRIAXone 2,000 MG in sodium chloride 0.9% (plus) 50 ML 100 MG IV (11:26)
--- NOTE | 2020-05-01 11:27 | W.ED.ABDPA2 ---
HPI - Abdominal Pain General: Chief Complaint: Abdominal Pain Stated Complaint: DIALYSIS TUBE SITE PAIN Time Seen by Provider: 05/01/20 09:26 History of Present Illness: HPI narrative: 69-year-old female who is currently going through complications of peritoneal dialysis. In discussing it sounds like there is a fluid leak through the hiatus of the diaphragm putting fluid into the right side of her chest. They drained twice large amounts of peritoneal dialysis fluid out the right side of the chest using a Luis drain once 1200 and once [address] Shrestha for this today or clot her peritoneal dialysis port is also been clotted off the got bits of blood from it. She seen Dr. Hinkle for this she is supposed to be seeing Dr. Shrestha her usual golf club head inspector and adjuster is Dr. Clark. She presents today complaining of severe abdominal pain that began overnight. She denies any fever denies any respiratory symptoms prior to the draining the fluid from her chest she was severely short of breath but has not been recently. She does have a known hiatal hernia. They are hoping to return her back to peritoneal dialysis but she did recently have a tunneled dialysis catheter placed in the right subclavian she has a port in the left subclavian. MD elicited complaint: abdominal pain Pertinent past history: none Onset (ago): day(s) Pain Consistency: constant and intermittent Location: Diffuse Severity: severe Associated Symptoms: Denies bloating, chills, coffee ground emesis, constipation, diarrhea, dysuria, fever(s), hematochezia, hematemesis, melena, nausea and vomiting Review of Systems Const: Denies: fever(s), chills, body aches, change in appetite, fatigue or malaise ENMT: Denies: throat pain, ear or mastoid pain, nasal discharge or nasal congestion Card: Denies: chest pain, edema, dyspnea on exertion or orthopnea Resp: Denies: dyspnea, productive cough or non-productive cough GI: Denies: abdominal pain, nausea, vomiting, hematemesis, coffee ground emesis, diarrhea, constipation, bloating, hematochezia or melena : Denies: flank pain, difficulty voiding, dysuria, urinary frequency or urinary urgency Skin/Breast: Denies: rash or pruritus PFSH ED PFSH: Medical History (Updated 05/02/20 @ 12:08 by Cabrera Shrestha MD) Cataract Chronic kidney disease (CKD) Closed fracture of left proximal humerus Hemodialysis patient History of peritoneal dialysis HTN (hypertension) Hx of breast cancer Hyperlipidemia Hypothyroidism Microcytic anemia Type 2 diabetes mellitus Surgical History H/O knee surgery H/O skin graft H/O tubal ligation History of kidney surgery History of lumpectomy of left breast History of surgery Right-sided pleurodesis and Pleurx catheter placement History of surgery on arm Hx of cataract surgery Hx of tonsillectomy S/P dialysis catheter insertion Peritoneal dialysis catheter placement x3 according to patient, revisions had to be performed in [facility] at an outside facility Hemodialysis catheter placement Family History Mother Stroke Father Stroke Social History Smoking and tobacco status: never smoked Alcohol intake: never Lives independently: Yes Household members: spouse Marital status: Current occupational status: employed History of recent travel: No Current gender identity: Female Physical Exam Const: COMMON NORMALS: no acute distress GENERAL APPEARANCE: cooperative and comfortable ORIENTATION/CONSCIOUSNESS: Yes awake, Yes oriented to person, Yes oriented to place and Yes oriented to time HENMT: COMMON NORMALS: normocephalic, atraumatic, hearing grossly normal bilaterally, external ears normal, EAC's normal, TM's normal bilaterally, Normal nasal mucous membranes and turbinates present, moist oral mucous membranes and oropharynx normal HEAD & SCALP: normocephalic and atraumatic NOSE: Normal nasal mucous membranes and turbinates present EXTERNAL EAR: Yes external ears normal EXTERNAL AUDITORY CANAL: EAC's normal TYMPANIC MEMBRANE: TM's normal bilaterally Eye: COMMON NORMALS: Equal, round and reactive pupils present, EOMs intact bilaterally, conjunctivae normal and no scleral icterus CONJUNCTIVA: Yes conjunctivae normal PUPIL: Yes Equal, round and reactive pupils present Neck/C-Spine: COMMON NORMALS: full ROM, no lymphadenopathy, supple and no JVD Lymph: LYMPHATIC: no lymphadenopathy noted and no lymphedema noted Resp: COMMON NORMALS: normal respiratory effort, No retractions, No use of accessory muscles and clear to auscultation bilaterally AUSCULTATION: clear to auscultation bilaterally Cardio: COMMON NORMALS: no JVD, regular rate, regular rhythm and No murmurs present (Cardio) RATE: regular rate RHYTHM: regular rhythm GI: AUSCULTATION: Yes Hypoactive bowel sounds present PALPATION: Yes Tenderness to palpation present (GI) (Diffuse peritoneal signs), Yes Guarding due to palpation present (GI) and Yes Rigid due to palpation Extremity: COMMON NORMALS: normal to inspection, capillary refill normal, no clubbing, cyanosis or edema, no calf tenderness and no pedal edema Neuro: SENSORIUM/ORIENTATION: Yes oriented to person, Yes oriented to place and Yes oriented to time Course Vital Signs: Vital signs: Vital Signs Temperature 98.5 F 05/02/20 12:00 Pulse Rate 86 05/02/20 12:00 Respiratory Rate 19 H 05/02/20 12:00 Blood Pressure 125/55 05/02/20 12:00 Pulse Oximetry 100 05/02/20 12:00 MDM - Abdominal Pain MDM Narrative: Medical decision making narrative: Patient developed peritonitis. Discussed with Dr. Rdz will go ahead and admit also discussed with nephrology and Dr. Shrestha who is to see the patient later today. She will need heme dialysis. Lab Data: Labs: Lab Results 05/01/20 05/01/20 05/01/20 Range/Units 04:20 09:43 09:43 WBC 25.9 H (4.0-10.0) 10^3/ uL RBC 3.26 L (4.1-5.3) 10^6/u L Hgb 9.3 L (11.5-15.3) g/dL Hct 29.1 L (37.0-47.0) % MCV 89.3 (81-99) fL MCH 28.5 (28.0-34.0) pg MCHC 32.0 (30.0-36.0) g/dL RDW 15.8 H (12.1-15.1) % Plt Count 420 H (130-400) 10^3/c mm MPV 10.6 H (7.4-10.4) fL Neut % (Auto) 91.1 % Lymph % (Auto) 4.3 % [place] % (Auto) 3.3 % Eos % (Auto) 0.1 % Baso % (Auto) 0.3 % Neut # (Auto) 23.5 H (1.8-7.7) 10^3/u L Lymph # (Auto) 1.1 (0.8-4.8) 10^3/u L [place] # (Auto) 0.9 (0.2-0.9) 10^3/u L Eos # (Auto) 0.0 (0.0-0.8) 10^3/u L Baso # (Auto) 0.1 (0.0-0.1) 10^3/u L Nucleated RBC % (a uto) 0 % Nucleated RBCs # 0.0 /100WBC Sodium 127 L (136-145) mmol/L Potassium 5.0 (3.5-5.1) mmol/L Chloride 89 L (98-107) mmol/L Carbon Dioxide 22 (22-29) mmol/L Anion Gap 21.0 H (5-19) BUN 56 H (8-23) mg/dL Creatinine 4.4 H (0.5-0.9) mg/dL Glucose 331 H (65-115) mg/dL Calculated Osmolal ity 275 L (285-295) mOsm/k g Lactate (0.5-2.2) mmol/L Calcium 9.4 (8.5-10.5) mg/dL Total Bilirubin 0.7 (0.15-1.2) mg/dL AST 12 (0-32) U/L ALT 11 (0-33) U/L Alkaline Phosphata se 123 H (35-105) IU/L Total Protein 7.9 (6.6-8.7) g/dL Albumin 3.4 L (3.5-5.2) g/dL Globulin 4.5 (1.3-4.6) g/dL Lipase 20 (13-60) U/L Urine Color Yellow (Yellow) Urine Appearance Cloudy (CLEAR) Urine pH 7 (5-7) Ur Specific Gravit y 1.005 (1.005-1.030) Urine Protein Trace (Negative) Urine Glucose (UA) Norm (Normal) Urine Ketones Negative (Negative) Urine Blood 3+ H (Negative) Urine Nitrate Negative (Negative) Urine Bilirubin Neg (NEGATIVE) Urine Urobilinogen Norm (Negative) mg/dL Ur Leukocyte Ayesha ase 2+ H (Negative) Urine RBC 0-4 H (0-2) /hpf Urine WBC Too numerous to c nt H (0-5) /hpf Ur Squamous Epith Cells 0-4 H (0-5) Urine Bacteria 1+ H (NONE) 05/01/20 Range/Units 09:43 WBC (4.0-10.0) 10^3/ uL RBC (4.1-5.3) 10^6/u L Hgb (11.5-15.3) g/dL Hct (37.0-47.0) % MCV (81-99) fL MCH (28.0-34.0) pg MCHC (30.0-36.0) g/dL RDW (12.1-15.1) % Plt Count (130-400) 10^3/c mm MPV (7.4-10.4) fL Neut % (Auto) % Lymph % (Auto) % [place] % (Auto) % Eos % (Auto) % Baso % (Auto) % Neut # (Auto) (1.8-7.7) 10^3/u L Lymph # (Auto) (0.8-4.8) 10^3/u L [place] # (Auto) (0.2-0.9) 10^3/u L Eos # (Auto) (0.0-0.8) 10^3/u L Baso # (Auto) (0.0-0.1) 10^3/u L Nucleated RBC % (a uto) % Nucleated RBCs # /100WBC Sodium (136-145) mmol/L Potassium (3.5-5.1) mmol/L Chloride (98-107) mmol/L Carbon Dioxide (22-29) mmol/L Anion Gap (5-19) BUN (8-23) mg/dL Creatinine (0.5-0.9) mg/dL Glucose (65-115) mg/dL Calculated Osmolal ity (285-295) mOsm/k g Lactate 2.3 H (0.5-2.2) mmol/L Calcium (8.5-10.5) mg/dL Total Bilirubin (0.15-1.2) mg/dL AST (0-32) U/L ALT (0-33) U/L Alkaline Phosphata se (35-105) IU/L Total Protein (6.6-8.7) g/dL Albumin (3.5-5.2) g/dL Globulin (1.3-4.6) g/dL Lipase (13-60) U/L Urine Color (Yellow) Urine Appearance (CLEAR) Urine pH (5-7) Ur Specific Gravit y (1.005-1.030) Urine Protein (Negative) Urine Glucose (UA) (Normal) Urine Ketones (Negative) Urine Blood (Negative) Urine Nitrate (Negative) Urine Bilirubin (NEGATIVE) Urine Urobilinogen (Negative) mg/dL Ur Leukocyte Ayesha ase (Negative) Urine RBC (0-2) /hpf Urine WBC (0-5) /hpf Ur Squamous Epith Cells (0-5) Urine Bacteria (NONE) Discharge Plan Discharge Patient Disposition: Admitted As Inpatient Admit Provider: Milagros Rdz Clinical Impression: Peritonitis due to infected peritoneal dialysis catheter, End stage renal disease, Diabetes mellitus Condition: Stable Referrals: Cesar Mendez MD [Primary Care Provider] - Discharge Date/Time: 05/01/20 12:20 Coding Level of Care Code ED Senior Ui Software Engineer for Chg Fwd Exam Comprehensive
[2020-05-01] MEDS: iodixanol 320 mg/mL 100mL Btl IV (12:38)
--- NOTE | 2020-05-01 12:43 | PM.HP ---
Providers/Chief Complaint Admitting Physician: Milagros Rdz DO Primary Care Provider: Cesar Mendez MD Chief Complaint: DIALYSIS TUBE SITE PAIN History of Present Illness María Saab is a 69 year old female with a past medical history of end-stage renal disease on peritoneal dialysis, diabetes, hypertension, hypothyroidism, history of breast cancer and history of recurrent right-sided pleural effusion status post right-sided Pleurx catheter that presented to the emergency department today for abdominal pain. Patient was seen and evaluated in the emergency department noted to have concern for sepsis with elevated white blood cell count of 25,000 and abdominal pain. Initial concern for peritonitis therefore patient was given IV antibiotics and dialysis nurse was called to obtain peritoneal fluid culture. Patient was noted to have continued left lower quadrant abdominal pain. She stated that she was seen in dialysis yesterday and they attempted to heparinize her PD catheter to get it to function again. She stated that since that time she is continued to have increasing pain. She denies any fevers at home, no sick contacts. She reports nausea with no vomiting, bowel movement yesterday, no melanotic stools, no bright red blood per rectum. Patient reports that she is continued to pass flatus with no concern. Continued to have worsening pain so therefore came into the ER for further evaluation and treatment. ER work-up showed CT scan of the abdomen and pelvis with concern for peritoneal dialysis catheter with inflammation along peritoneal dialysis insertion site, abdominal wall musculature and soft tissue and adjacent small bowel with significant inflammatory process. Dissecting air along the left abdominal wall. Discussed findings with patient and she reported that she has had 3 prior surgeries due to similar issues with prior peritoneal dialysis catheters. Patient had recent talc pleurodesis on 04/06/2020, performed from indwelling pleural catheter due to recurrent right-sided pleural effusions. Patient has been on peritoneal dialysis previously, however due to peritoneal dialysis catheter failure she had a tunneled dialysis catheter placed and has been on hemodialysis since that time. Review of Systems Const: Denies: fever(s) or chills Eyes: Denies: change in vision ENMT: Denies: nasal congestion Card: Denies: chest pain, palpitations or edema Resp: Denies: dyspnea, productive cough or hemoptysis GI: Reports: abdominal pain and nausea; Denies: vomiting, diarrhea, constipation, hematochezia or melena : Reports: other (cloudy urine); Denies: dysuria or hematuria Musc: Denies: extremity pain or muscle cramps Skin/Breast: Denies: rash or new lesions Neuro: Denies: headache(s) or dizziness Psych: Denies: anxiety or depression Endo: Denies: polyuria or hot flashes Dave/Lymph: Denies: easy bruising or easy bleeding Medications/Allergies Home Medications Medication Instructions Recorded Confirmed Last Taken Type atorvastatin 20 mg tablet 20 mg PO DAILY 11/28/19 05/01/20 04/30/20 History ferrous sulfate 325 mg (65 mg 325 mg PO BID 11/28/19 05/01/20 05/01/20 History iron) tablet levothyroxine 200 mcg capsule 200 mcg PO DAILY 11/28/19 05/01/20 05/01/20 History metolazone 5 mg tablet 5 mg PO DAILY 11/28/19 05/01/20 04/05/20 History Tresiba FlexTouch U-100 18 unit SUBCUT DAILY 01/10/20 05/01/20 04/30/20 History insulin aspart U-100 [Novolog See Rx Instructions .ROUTE .COMPLEX 01/10/20 05/01/20 05/01/20 History Flexpen U-100 Insulin] meclizine 25 mg PO TID PRN #14 tab 01/10/20 05/01/20 05/01/20 Rx potassium chloride 20 meq PO BID 01/10/20 05/01/20 05/01/20 History ropinirole 0.5 mg PO BEDTIME 01/10/20 05/01/20 04/30/20 History torsemide See Rx Instructions .ROUTE .COMPLEX 01/10/20 05/01/20 05/01/20 History tamsulosin 0.4 mg capsule 0.4 mg PO BID #60 cap 02/17/20 05/01/20 05/01/20 Rx Velphoro 500 - 1,000 mg PO TID 03/15/20 05/01/20 04/30/20 History amitriptyline 100 mg PO BEDTIME 03/15/20 05/01/20 04/30/20 History PreserVision AREDS 1 tab PO BID 03/27/20 05/01/20 05/01/20 History RenaPlex 1 tab PO DAILY 03/27/20 05/01/20 05/01/20 History calcitriol 0.5 mcg PO QMWF 03/27/20 05/01/20 04/30/20 History gentamicin 1 applic TOPICAL PRN PRN 03/27/20 05/01/20 04/02/20 History sevelamer carbonate [Renvela] 1,600 mg PO TID 03/27/20 05/01/20 04/30/20 History spironolactone [Aldactone] 50 mg PO DAILY 03/27/20 05/01/20 04/30/20 History Allergies Allergy/AdvReac Type Severity Reaction Status Date / Time Penicillins Allergy Mild ALGY-Rash Verified 05/01/20 14:12 propoxyphene [From Darvon] Allergy Mild ALGY-Rash Verified 05/01/20 14:12 codeine Allergy ALGY-Rash Verified 05/01/20 14:12 PFSH Acute PFSH: Medical History (Updated 05/01/20 @ 13:39 by Milagros Rdz DO) Cataract Closed fracture of left proximal humerus History of peritoneal dialysis HTN (hypertension) Hx of breast cancer Hyperlipidemia Hypothyroidism Microcytic anemia Type 2 diabetes mellitus Surgical History H/O knee surgery H/O skin graft H/O tubal ligation History of kidney surgery History of lumpectomy of left breast History of surgery Right-sided pleurodesis and Pleurx catheter placement History of surgery on arm Hx of cataract surgery Hx of tonsillectomy S/P dialysis catheter insertion Peritoneal dialysis catheter placement x3 according to patient, revisions had to be performed in [facility] at an outside facility Hemodialysis catheter placement Family History Mother Stroke Father Stroke Social History Smoking and tobacco status: never smoked Alcohol intake: never Lives independently: Yes Household members: spouse Marital status: Current occupational status: employed History of recent travel: No Current gender identity: Female Vitals/I&O/Wt Last Vital Signs Temp 98.0 F 05/01/20 09:26 Pulse 91 05/01/20 11:28 Resp 18 05/01/20 09:26 BP 133/60 05/01/20 11:28 Pulse Ox 97 05/01/20 11:28 Weight last 48 hrs Weight 68.039 kg Physical Exam Const: COMMON NORMALS: patient oriented x3 and alert GENERAL APPEARANCE: cooperative ORIENTATION/CONSCIOUSNESS: Yes awake, Yes oriented to person, Yes oriented to place and Yes oriented to time HENMT: COMMON NORMALS: normocephalic and atraumatic HEAD & SCALP: normocephalic and atraumatic Eye: COMMON NORMALS: Equal, round and reactive pupils present PUPIL: Yes Equal, round and reactive pupils present Neck/C-Spine: COMMON NORMALS: supple GENERAL: Yes normal visual inspection Resp: COMMON NORMALS: normal respiratory effort and clear to auscultation bilaterally EFFORT & INSPECTION: Yes able to speak in complete sentences AUSCULTATION: clear to auscultation bilaterally, no rhonchi and no wheezes Cardio: COMMON NORMALS: regular rate, regular rhythm and No murmurs present (Cardio) RATE: regular rate RHYTHM: regular rhythm GI: OTHER: Tender to palpation in the left lower quadrant with guarding and rigidity, normal bowel sounds : COMMON NORMALS: Yes no CVA tenderness BLADDER/KIDNEY EXAM: Yes no CVA tenderness Back/Pelvis: COMMON NORMALS: no CVA tenderness Extremity: COMMON NORMALS: no clubbing, cyanosis or edema and no calf tenderness Neuro: COMMON NORMALS: patient oriented x3, CN's II-XII intact bilaterally, moves all extremities and no focal motor deficits SENSORIUM/ORIENTATION: Yes alert, Yes oriented to person, Yes oriented to place and Yes oriented to time SPEECH: speech normal Psych: COMMON NORMALS: mental status grossly normal and cooperative Skin: COMMON NORMALS: no rashes or lesions noted GENERAL SKIN EXAM: no rashes or lesions noted Data : 05/01/20 09:43 05/01/20 09:43 Micro: Microbiology 05/01/20 09:43 Blood Culture - Preliminary Blood SPECIMEN COLLECTED 05/01/20 09:35 Blood Culture - Preliminary Blood SPECIMEN COLLECTED CXR: I personally reviewed and interpreted this imaging study as follows: Radiologist's impression: RIGHT subclavian dialysis catheter remains unchanged in position. There is also Port-A-Cath present through the LEFT subclavian vein with tip in the distal SVC. Lungs are clear and well expanded. No pleural effusion or pneumothorax. RIGHT thoracostomy tube is present in the RIGHT lower thorax. No pneumothorax. Cardiac size: Normal. Mediastinum/Aorta: Mild atherosclerosis aorta. Healing pathological fracture involving the LEFT proximal humerus. Prior axillary abdoulaye dissection on the LEFT. XR/XR chest 1V portable [id number] IMPRESSION: 1. No pneumonia. 2. RIGHT lower thorax thoracostomy tube with no pneumothorax. No residual effusion. US: I personally reviewed and interpreted this imaging study as follows: Radiologist's impression: All 4 quadrants are imaged by ultrasound to evaluate for ascites. There is no peritoneal fluid identified. US/US abdomen limited [id number] IMPRESSION: No peritoneal ascites. CT Abd/Pel: I personally reviewed and interpreted this imaging study as follows: Radiologist's impression: Lower thorax: Hutchinson drain is noted at the RIGHT inferior thorax. There is no associated fluid remaining. Heart is normal size. Small hiatal hernia. Liver/biliary system: Liver is moderately enlarged with mild diffuse intrahepatic duct dilatation. Gallbladder: Slightly contracted gallbladder with partially calcified gallbladder wall. No adjacent inflammation. Pancreas: Atrophied pancreas. Spleen: Normal. Adrenal glands: Normal. Right kidney: Mild perinephric stranding with no obstruction. Left kidney: Mild perinephric stranding with no obstruction. Aorta: Heavy calcification with no aneurysm. Lymphadenopathy: None. Free fluid: None. GI tract: There is no GI tract obstruction. There is marked thickening of the distal small bowel at the site of the dialysis catheter insertion. Abdominal wall: Marked abnormal appearance of the abdominal wall. The dialysis catheter enters the midline of the abdominal wall at the level of S1. At the insertion site of the catheter there is marked inflammation of the abdominal wall musculature and the soft tissues. Foci of air within the abdominal wall musculature. The dialysis catheter is within the anterior pelvis and there is a large amount of inflammation surrounding the peritoneal catheter and inseparable from the small bowel loops over the lower pelvis. Pelvis: Well-distended urinary bladder. Uterus remains midline and atrophic. Bones: Unremarkable. Notified Florian Gerber DO at 05/01/2020 1:[address]/CT abdomen pelvis w con* [id number] IMPRESSION: 1. Significant inflammatory process involving the dialysis catheter insertion site, abdominal wall musculature and soft tissue and also the adjacent underlying small bowel. Significant inflammatory process but no abscess. 2. Dissecting air along the LEFT abdominal wall. May be due to recent catheter manipulation or infection. 3. No ascites. 4. Calcified gallbladder wall. 5. Minimal intrahepatic bile duct dilatation of uncertain etiology. 6. Hutchinson drain at the RIGHT inferior thorax with no adjacent fluid. A&P Assessment and plan (1) Peritonitis due to infected peritoneal dialysis catheter: Left lower quadrant abdominal pain with imaging findings of significant inflammatory process involving the dialysis catheter insertion site, soft tissue and abdominal wall musculature with inflammatory process with dissecting air along the left abdominal wall that could be related to infection versus recent manipulation of catheter. Dr. Shrestha consulted, plan for patient to go to the OR urgently today Given Rocephin in the emergency department, discussed broadening antibiotic coverage at this time with Primaxin We will obtain culture from PD catheter Patient had recent manipulation of PD catheter at outpatient dialysis center yesterday, flushed with heparin but no results and patient began having onset of pain following this. Status: Acute (2) Abdominal pain: Left lower quadrant abdominal pain as noted above with concern for dissecting air along the left abdominal wall with concern for catheter manipulation or infectious process with significant inflammatory findings along the abdominal wall musculature soft tissue and underlying adjacent small bowel. N.p.o. Dr. Shrestha consulted, plan for patient to go to the OR today for peritoneal dialysis catheter removal and further exploration Continue broad-spectrum antibiotic coverage with Primaxin Status: Acute (3) Diabetes mellitus: Patient reports worsening blood glucose control over the past several days, likely secondary to infectious process Will place on moderate dose sliding scale insulin and addition of long acting insulin if indicated, will continue to be cautious at this time due to n.p.o. status Status: Acute (4) End stage renal disease: Consult to nephrology Patient has end-stage renal disease previously on peritoneal dialysis, however has been on hemodialysis for 1 month Has catheter placed for hemodialysis, will continue with HD at this time due to PD catheter malfunction Appreciate nephrology recommendations and assistance in patient's care Patient did not have dialysis on Thursday due to PD dysfunction and trying to get back on peritoneal dialysis. Typically on Thursday hemodialysis schedule for the past 1 month. Status: Acute (5) HTN (hypertension): Patient reports recently being taken off of her home blood pressure medications, will hold Aldactone, continue to monitor fluid status and blood pressure closely due to concern for sepsis secondary to intra-abdominal infection. Status: Acute (6) Hypothyroidism: Continue on levothyroxine 200 mcg daily Status: Acute (7) Sepsis: Sepsis with concern for intra-abdominal pathology as noted above Continue on broad-spectrum Primaxin Blood culture ordered and pending Peritoneal dialysis catheter to be removed today, will send for culture We will drained fluid from Pleurx cath for culture Status: Acute (8) Anemia: Anemia of chronic disease with no active bleeding. Continue to monitor hemoglobin closely Status: Acute Additional A&P Information Hyponatremia Elevated lactic acid: We will recheck with sepsis, continue to monitor bili pain with empiric antibiotic treatment and plan for patient to go to the OR, this could be secondary to renal disease as well Patient reports recently having cloudy urine: UA ordered and pending DVT prophylaxis: SCDs, no pharmacologic prophylaxis due to concern for intra-abdominal pathology requiring urgent surgery Diet: N.p.o. CODE STATUS: Full code, this was discussed with patient on admission Discussion with patient about the need for operative management due to concern for intra-abdominal infection Also discussed with patient's and made him aware of admission and plan for surgical intervention, he verbalized understanding and agreed with plan. Attestations Medical Necessity Statement*: She requires hospitalization and close monitoring in the ICU due to abdominal pain with end-stage renal disease and concerning findings for peritoneal dialysis catheter inflammation and infectious process with adherence to bowel wall. Expected stay greater than 2 midnights. 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
[2020-05-01] MEDS: morphine 4 mg/mL SDV 1 mL 2 MG IVP (13:54)
--- NOTE | 2020-05-01 14:01 | PC.NURSE ---
PT'S MONEY COUNTED WITH OR NURSE SABINE DELGADO, TOTAL OF $228.00 ELIZABETH WITH PT UPON DISCHARGE FROM ER.
--- NOTE | 2020-05-01 14:28 | ANES.PREANE2 ---
Pre-Anesthetic Assessment Pre-Anesthetic Assessment: Height/Weight: Height 1.6 m Weight 68.039 kg Temp Pulse Resp BP Pulse Ox 99.4 F 90 18 155/66 97 05/01/20 14:08 05/01/20 14:08 05/01/20 14:08 05/01/20 14:08 05/01/20 14:08 Preop Diagnosis: Recurrent right-sided pleural effusion Proposed Procedure: Operation Date: 05/01/20 15:00 Proposed Procedures p Peritoneal Catheter Removal(Not Applicable) - Cabrera Shrestha MD Last intake: Intake Last Liquid Date 05/01/20 Last Liquid Time 08:30 Last Solid Date 04/30/20 Last Solid Time 12:00 Social: Social History: No alcohol and No tobacco Exam: Pre-Anes Outpt Exam: alert, oriented x 3, clear to auscultation bilaterally and regular rate & rhythm Airway: Submandibular: WNL Cervical ROM: WNL MP: 3 Dentition: Other (teeth ok) History/ROS: No significant history except as noted Pulmonary: Pulmonary: COONEY Comments: gray drain placed 03/31 for pleural eff CV/HEM: CV/HEM: HTN : : Chronic renal failure Hepatic: Hepatic: None reported GI: GI: None reported Metabolic: Metabolic: DM and Thyroid Musc/skel: Musc/skel: OA/DJD Neuropsych: Neuropsych: Neuropathy (bilat feet) Anesthetic Plan: ASA status: 3E Anesthesia: Anesthesia Evaluation, General and MAC Risk of > 500 ml blood loss (7ml/kg in children): No PFSH Anesthesia PFSH: Medical History (Updated 05/01/20 @ 13:39 by Milagros Rdz DO) Cataract Closed fracture of left proximal humerus History of peritoneal dialysis HTN (hypertension) Hx of breast cancer Hyperlipidemia Hypothyroidism Microcytic anemia Type 2 diabetes mellitus Surgical History H/O knee surgery H/O skin graft H/O tubal ligation History of kidney surgery History of lumpectomy of left breast History of surgery Right-sided pleurodesis and Pleurx catheter placement History of surgery on arm Hx of cataract surgery Hx of tonsillectomy S/P dialysis catheter insertion Peritoneal dialysis catheter placement x3 according to patient, revisions had to be performed in [facility] at an outside facility Hemodialysis catheter placement Family History Mother Stroke Father Stroke Social History Smoking and tobacco status: never smoked Alcohol intake: never Lives independently: Yes Household members: spouse Marital status: Current occupational status: employed History of recent travel: No Current gender identity: Female Data Anesthesia CBC & Chem 7: 05/01/20 09:43 05/01/20 09:43 Other Labs: Laboratory Results - last 48 hr 05/01/20 05/01/20 05/01/20 09:43 09:43 09:43 WBC 25.9 H RBC 3.26 L Hgb 9.3 L Hct 29.1 L MCV 89.3 MCH 28.5 MCHC 32.0 RDW 15.8 H Plt Count 420 H MPV 10.6 H Neut % (Auto) 91.1 Lymph % (Auto) 4.3 Heard % (Auto) 3.3 Eos % (Auto) 0.1 Baso % (Auto) 0.3 Neut # (Auto) 23.5 H Lymph # (Auto) 1.1 Heard # (Auto) 0.9 Eos # (Auto) 0.0 Baso # (Auto) 0.1 Nucleated RBC % (auto) 0 Nucleated RBCs # 0.0 Sodium 127 L Potassium 5.0 Chloride 89 L Carbon Dioxide 22 Anion Gap 21.0 H BUN 56 H Creatinine 4.4 H Glucose 331 H Calculated Osmolality 275 L Lactate 2.3 H Calcium 9.4 Total Bilirubin 0.7 AST 12 ALT 11 Alkaline Phosphatase 123 H Total Protein 7.9 Albumin 3.4 L Globulin 4.5 Lipase 20 Micro: Microbiology 05/01/20 09:43 Blood Culture - Preliminary Blood SPECIMEN COLLECTED 05/01/20 09:35 Blood Culture - Preliminary Blood SPECIMEN COLLECTED Cardiac Studies: No Data to Display
[2020-05-01] MEDS: sodium chloride 0.9% 1,000 ML 30 ML IV (14:39)
--- NOTE | 2020-05-01 16:46 | PM.CONSULT ---
Providers/Reason For Consult Consulting Physican/Specialty*: Dr. Rdz Reason for Consult*: Peritonitis Attending Physician: Milagros Rdz DO Primary Care Provider: Cesar Mendez MD History of Present Illness History of Present Illness María Saab is a 69 year old female with end-stage renal disease currently on peritoneal dialysis. Patient was seen in dialysis center yesterday where the catheter was injected with heparin since it was not functioning well. Patient had the cath placed last year in [place]. She presented to the ER due to worsening abdominal pain around the catheter entry site. Review of Systems General: Reports: 10 or more systems reviewed and unremarkable except in HPI and below Meds/Allergies Home Medications and Allergies Home Medications Medication Instructions Recorded Confirmed Last Taken Type atorvastatin 20 mg tablet 20 mg PO DAILY 11/28/19 05/01/20 04/30/20 History ferrous sulfate 325 mg (65 mg 325 mg PO BID 11/28/19 05/01/20 05/01/20 History iron) tablet levothyroxine 200 mcg capsule 200 mcg PO DAILY 11/28/19 05/01/20 05/01/20 History metolazone 5 mg tablet 5 mg PO DAILY 11/28/19 05/01/20 04/05/20 History Tresiba FlexTouch U-100 18 unit SUBCUT DAILY 01/10/20 05/01/20 04/30/20 History insulin aspart U-100 [Novolog See Rx Instructions .ROUTE .COMPLEX 01/10/20 05/01/20 05/01/20 History Flexpen U-100 Insulin] meclizine 25 mg PO TID PRN #14 tab 01/10/20 05/01/20 05/01/20 Rx potassium chloride 20 meq PO BID 01/10/20 05/01/20 05/01/20 History ropinirole 0.5 mg PO BEDTIME 01/10/20 05/01/20 04/30/20 History torsemide See Rx Instructions .ROUTE .COMPLEX 01/10/20 05/01/20 05/01/20 History tamsulosin 0.4 mg capsule 0.4 mg PO BID #60 cap 02/17/20 05/01/20 05/01/20 Rx Velphoro 500 - 1,000 mg PO TID 03/15/20 05/01/20 04/30/20 History amitriptyline 100 mg PO BEDTIME 03/15/20 05/01/20 04/30/20 History PreserVision AREDS 1 tab PO BID 03/27/20 05/01/20 05/01/20 History RenaPlex 1 tab PO DAILY 03/27/20 05/01/20 05/01/20 History calcitriol 0.5 mcg PO QMWF 03/27/20 05/01/20 04/30/20 History gentamicin 1 applic TOPICAL PRN PRN 03/27/20 05/01/20 04/02/20 History sevelamer carbonate [Renvela] 1,600 mg PO TID 03/27/20 05/01/20 04/30/20 History spironolactone [Aldactone] 50 mg PO DAILY 03/27/20 05/01/20 04/30/20 History Allergies Allergy/AdvReac Type Severity Reaction Status Date / Time Penicillins Allergy Mild ALGY-Rash Verified 05/01/20 14:12 propoxyphene [From Darvon] Allergy Mild ALGY-Rash Verified 05/01/20 14:12 codeine Allergy ALGY-Rash Verified 05/01/20 14:12 Current Medications Current Medications Generic Name Dose Route Start Last Admin Trade Name Freq PRN Reason Stop Dose Admin Sodium Chloride 1,000 mls @ 30 mls/hr 05/01/20 14:45 05/01/20 14:39 Sodium Chloride 0.9% IV 05/02/20 14:44 30 mls/hr .Q24H NIKKY Administration PFSH Acute PFSH: Medical History Cataract Closed fracture of left proximal humerus History of peritoneal dialysis HTN (hypertension) Hx of breast cancer Hyperlipidemia Hypothyroidism Microcytic anemia Type 2 diabetes mellitus Surgical History H/O knee surgery H/O skin graft H/O tubal ligation History of kidney surgery History of lumpectomy of left breast History of surgery Right-sided pleurodesis and Pleurx catheter placement History of surgery on arm Hx of cataract surgery Hx of tonsillectomy S/P dialysis catheter insertion Peritoneal dialysis catheter placement x3 according to patient, revisions had to be performed in [facility] at an outside facility Hemodialysis catheter placement Family History Mother Stroke Father Stroke Social History Smoking and tobacco status: never smoked Alcohol intake: never Lives independently: Yes Household members: spouse Marital status: Current occupational status: employed History of recent travel: No Current gender identity: Female Vitals/I&O/Wt Last Vital Signs Temp 99.4 F 05/01/20 14:08 Pulse 90 05/01/20 14:08 Resp 18 05/01/20 14:08 BP 155/66 05/01/20 14:08 Pulse Ox 97 05/01/20 14:08 05/01/20 05/01/20 05/01/20 06:59 14:59 22:59 Intake Total 150 / 150 Balance 150 / 150 Weight last 48 hrs Weight 150 lb Physical Exam Narrative: EXAM NARRATIVE: HEENT: Normocephalic Eye: Sclera /conjunctiva normal Respiratory and chest: Bilateral clear breath sounds on auscultation Cardiovascular: Normal S1 and S2 heart sounds Abdomen: Soft to palpation, generalized tenderness, voluntary guarding left lower quadrant, PD catheter left upper quadrant, well-healed laparoscopy scars Neurological: Oriented to place person and time Skin: Intact, no lesions appreciated on gross exam Urinary Catheter Management^: Spears: Cath Placed During This Visit: yes Urinary Catheter Date of Insertion: 05/01/20 Urinary Catheter Time of Insertion: 13:51 Data Micro: Micro: Microbiology 05/01/20 09:43 Blood Culture - Pr eliminary Blood SPECIMEN [facility] 05/01/20 09:35 Blood Culture - Pr eliminary Blood SPECIMEN [facility] A&P Assessment and plan (1) Peritonitis due to infected peritoneal dialysis catheter: 69-year-old female with end-stage renal disease on hemodialysis due to nonfunctioning PD catheter who now presents with peritonitis, leukocytosis and CT scan showing inflammatory changes in the small bowel as well as air within the abdominal wall near the catheter entry site. Patient has been admitted to the ICU and started on empiric antibiotics. We will take her to the operating room for diagnostic laparoscopy, possible laparotomy for removal of dialysis catheter, possible bowel resection. Procedure, risks, benefits and alternatives have been discussed with the patient who wishes to proceed with surgery. 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
--- NOTE | 2020-05-01 17:02 | PC.NURSE ---
OR staff brought aver valuables. Placed in Pyxis.
--- NOTE | 2020-05-01 18:30 | PC.NURSE ---
Pt arrives to ICU 8 from surgery. Pt alert and drowsy. On Rooom air. Implanted port, accessed noted on her left chest. Hemodialysis cath noted on right chest.. Pleurex drain noted right chest, per OR report freshly dressed. Peripherl IV noted right AC. 3 small bandages noted mid and left abdomen, sanguineness drainage noted on mid. Spears cath patent and draining plae yellow puruent appearing fluid. Mild abdominal ain reported by patient.
--- NOTE | 2020-05-01 19:05 | PC.NURSE ---
Report given to DANNY Winchester
--- NOTE | 2020-05-01 19:07 | PM.OP ---
Operative Report Date of procedure: May 01, 2020 Pre-op Diagnosis: PD catheter peritonitis Post-op Findings: No evidence of bowel injury or perforation. No free fluid or significant inflammation except for one small bowel loop which was adherent to the abdominal wall and appeared inflamed. There was a small amount of pus within the abdominal wall adjacent to the catheter Procedure Done: Diagnostic laparoscopy Removal of peritoneal dialysis catheter. Pathology: PD catheter tip for culture Surgeon: Cabrera Shrestha Anesthesia: General Estimated blood loss (mL): 10 Condition: stable Disposition: ICU Brief History: This is a 69-year-old female who presented to the ER with severe abdominal pain, leukocytosis and CT scan showing air within the abdominal wall at the catheter entry site. The catheter has not been functioning. Procedure: The patient was taken to the operating room and intubated under general anesthesia and the abdomen was prepped and draped in a sterile manner. Patient is currently on IV antibiotics. Using 15 blade 3 cm incision was made at the catheter entry site into the peritoneal cavity, subcutaneous tissues was divided using electrocautery and the catheter was dissected free from the surrounding subcutaneous tissue and anterior rectus sheath. The external portion of the catheter was cut with [place] scissors and the tunnelled portion of the catheter along with the cuff was first freed and removed. The pigtail tip of the catheter was freed without difficulty from the rectus muscle and sent for cultures. A 5 mm port was placed through the catheter entry site and the anterior rectus sheath. 15 mm of pneumoperitoneum was created and a 5 mm 30 degrees scope was introduced. On examination of the abdomen, there were 2 inflamed small bowel loops adherent to the anterior abdominal wall where the catheter had previously been in place, there was no free fluid, pus or signs of bowel perforation noted. Another 5 mm port was placed in the left lower quadrant under direct visualization and I tried to gently peel away the adherent small bowel loop from the abdominal wall. It was inflamed and therefore I decided to not completely dissect the bowel loops free due to risk of bowel injury. The ports were removed under direct visualization and there was no bleeding from the port sites. The anterior rectus sheath was closed using [id number] 0 Vicryl suture, subcutaneous is approximated using interrupted 3-0 Vicryl suture and skin was closed with shanell and wounds packed with quarter inch ribbon gauze. The patient was extubated and transferred to ICU in stable condition.
--- NOTE | 2020-05-01 19:41 | P.CONIM_ITS ---
Providers/Reason For Consult Consulting Physican/Specialty*: Luba Perez DO, telenephrology Reason for Consult*: ESRD Requesting Physcian: Milagros Rdz DO Attending Physician: Milagros Rdz DO Primary Care Provider: Cesar Mendez MD History of Present Illness History of Present Illness María Saab is a 69 year old female presenting for evaluation of abdominal pain. Was on peritoneal dialysis for about one year, history of malfunctioning PD catheter. Attempt to flush PD catheter yesterday at dialysis. Has been getting hemodialysis via venous catheter for 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 Last treatment ThursdayApril 27. Patient seen postop PD catheter removal. History obtained from patient, chart and speaking with ER and admitting physicians. Meds/Allergies Home Medications and Allergies Home Medications Medication Instructions Recorded Confirmed Last Taken Type atorvastatin 20 mg tablet 20 mg PO DAILY 11/28/19 05/01/20 04/30/20 History ferrous sulfate 325 mg (65 mg 325 mg PO BID 11/28/19 05/01/20 05/01/20 History iron) tablet levothyroxine 200 mcg capsule 200 mcg PO DAILY 11/28/19 05/01/20 05/01/20 History metolazone 5 mg tablet 5 mg PO DAILY 11/28/19 05/01/20 04/05/20 History Tresiba FlexTouch U-100 18 unit SUBCUT DAILY 01/10/20 05/01/20 04/30/20 History insulin aspart U-100 [Novolog See Rx Instructions .ROUTE .COMPLEX 01/10/20 05/01/20 05/01/20 History Flexpen U-100 Insulin] meclizine 25 mg PO TID PRN #14 tab 01/10/20 05/01/20 05/01/20 Rx potassium chloride 20 meq PO BID 01/10/20 05/01/20 05/01/20 History ropinirole 0.5 mg PO BEDTIME 01/10/20 05/01/20 04/30/20 History torsemide See Rx Instructions .ROUTE .COMPLEX 01/10/20 05/01/20 05/01/20 History tamsulosin 0.4 mg capsule 0.4 mg PO BID #60 cap 02/17/20 05/01/20 05/01/20 Rx Velphoro 500 - 1,000 mg PO TID 03/15/20 05/01/20 04/30/20 History amitriptyline 100 mg PO BEDTIME 03/15/20 05/01/20 04/30/20 History PreserVision AREDS 1 tab PO BID 03/27/20 05/01/20 05/01/20 History RenaPlex 1 tab PO DAILY 03/27/20 05/01/20 05/01/20 History calcitriol 0.5 mcg PO QMWF 03/27/20 05/01/20 04/30/20 History gentamicin 1 applic TOPICAL PRN PRN 03/27/20 05/01/20 04/02/20 History sevelamer carbonate [Renvela] 1,600 mg PO TID 03/27/20 05/01/20 04/30/20 History spironolactone [Aldactone] 50 mg PO DAILY 03/27/20 05/01/20 04/30/20 History Allergies Allergy/AdvReac Type Severity Reaction Status Date / Time Penicillins Allergy Mild ALGY-Rash Verified 05/01/20 14:12 propoxyphene [From Darvon] Allergy Mild ALGY-Rash Verified 05/01/20 14:12 codeine Allergy ALGY-Rash Verified 05/01/20 14:12 PFSH Acute PFSH: Medical History Cataract Closed fracture of left proximal humerus History of peritoneal dialysis HTN (hypertension) Hx of breast cancer Hyperlipidemia Hypothyroidism Microcytic anemia Type 2 diabetes mellitus Surgical History H/O knee surgery H/O skin graft H/O tubal ligation History of kidney surgery History of lumpectomy of left breast History of surgery Right-sided pleurodesis and Pleurx catheter placement History of surgery on arm Hx of cataract surgery Hx of tonsillectomy S/P dialysis catheter insertion Peritoneal dialysis catheter placement x3 according to patient, revisions had to be performed in [facility] at an outside facility Hemodialysis catheter placement Family History Mother Stroke Father Stroke Social History Smoking and tobacco status: never smoked Alcohol intake: never Lives independently: Yes Household members: spouse Marital status: Current occupational status: employed History of recent travel: No Current gender identity: Female Vitals/I&O/Wt Last Vital Signs Temp 98.7 F 05/01/20 18:32 Pulse 86 05/01/20 18:45 Resp 17 05/01/20 18:45 BP 152/61 05/01/20 18:45 Pulse Ox 92 05/01/20 18:45 05/01/20 05/01/20 05/01/20 06:59 14:59 22:59 Intake Total 150 / 150 Balance 150 / 150 Weight last 48 hrs Weight 68.039 kg Physical Exam Const: COMMON NORMALS: no acute distress GENERAL APPEARANCE: cooperative Urinary Catheter Management^: Spears: Cath Placed During This Visit: yes Urinary Catheter Date of Insertion: 05/01/20 Urinary Catheter Time of Insertion: 13:51 Data Micro: Micro: Microbiology 05/01/20 09:43 Blood Culture - Pr eliminary Blood SPECIMEN [facility] 05/01/20 09:35 Blood Culture - Pr eliminary Blood SPECIMEN [facility] Other Data: Other data: CT ABDOMEN AND PELVIS WITH CONTRAST IMPRESSION: 1. Significant inflammatory process involving the dialysis catheter insertion site, abdominal wall musculature and soft tissue and also the adjacent underlying small bowel. Significant inflammatory process but no abscess. 2. Dissecting air along the LEFT abdominal wall. May be due to recent catheter manipulation or infection. 3. No ascites. 4. Calcified gallbladder wall. 5. Minimal intrahepatic bile duct dilatation of uncertain etiology. 6. Luis drain at the RIGHT inferior thorax with no adjacent fluid. CXR RIGHT subclavian dialysis catheter remains unchanged in position. There is also Port-A-Cath present through the LEFT subclavian vein with tip in the distal SVC. Lungs are clear and well expanded. No pleural effusion or pneumothorax. RIGHT t horacostomy tube is present in the RIGHT lower thorax. No pneumothorax. Cardiac size: Normal. Mediastinum/Aorta: Mild atherosclerosis aorta. Healing pathological fracture involving the LEFT proximal humerus. Prior axillary abdoulaye dissection on the LEFT. A&P Additional A&P Information Impression: 1. ESRD 2. Peritonitis, sepsis, s/p removal of peritoneal dialysis catheter 3. Hypertension 4. Anemia 5. Diabetes 6. Hyponatremia Recommendation: Hemodialysis 05/02/20. 4hours, 2 liter UF, 2K, 2.5 Ca. Epogen for anemia. Can hold phosphate binders (renvela and velphoro), oral diuretics (furosemide and metolazone) and oral iron, vitamin D. Follow up blood and peritoneal cultures. 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
--- NOTE | 2020-05-01 20:21 | PC.NURSE ---
Dr. Clifton called spoke with patient re: dialysis in morning and to think about fistula being placed. patient will have meds held tonite per dr. Clifton.
[2020-05-01] MEDS: ropinirole 0.25 mg Tablet 0.5 MG PO (21:07)
[2020-05-01 21:30] LABS: Glucose Point of Care 183 mg/dL (70-110)
--- NOTE | 2020-05-01 23:57 | PC.NURSE ---
patient ate sandwich and is talking on phone, no issues at this time. no pain. dressings dry and intact on abdomen. pleuridex is patent vey minute drainage.
[2020-05-02] VITALS (37 sets, daily range): BP systolic 101–154; BP diastolic 53–76; PULSE 82–99; RESP 14–33; TEMP 36.5–37.6; O2SAT 90–100; BMI 26.5
[2020-05-02 04:57] LABS: Basophils # 0.1 10^3/uL (0.0-0.1); Basophils % 0.3 %; Eosinophils # 0.1 10^3/uL (0.0-0.8); Eosinophils % 0.7 %; Hematocrit 26.2 % (37.0-47.0); Hemoglobin 8.2 g/dL (11.5-15.3); Lymphocytes # 1.2 10^3/uL (0.8-4.8); Lymphocytes % 6.8 %; Mean Corpuscular HGB Conc 31.3 g/dL (30.0-36.0); Mean Corpuscular Hemoglobin 28.4 pg (28.0-34.0); Mean Corpuscular Volume 90.7 fL (81-99); Mean Platelet Volume 11.1 fL (7.4-10.4); Monocytes # 0.9 10^3/uL (0.2-0.9); Neutrophils # 14.6 10^3/uL (1.8-7.7); Neutrophils % 85.8 %; Nucleated Red Blood Cells % 0 %; Platelet Count 343 10^3/cmm (130-400); Red Blood Count 2.89 10^6/uL (4.1-5.3)
[2020-05-02 05:36] LABS: Anion Gap 20.7 (5-19); Blood Urea Nitrogen 67 mg/dL (8-23); Calcium 8.8 mg/dL (8.5-10.5); Carbon Dioxide 21 mmol/L (22-29); Chloride 95 mmol/L (98-107); Glucose 218 mg/dL (65-115); Osmolality Calculated 280 mOsm/kg (285-295); Potassium 4.7 mmol/L (3.5-5.1); Sodium 132 mmol/L (136-145)
[2020-05-02 06:00] LABS: Blood Urine 3+ (Negative); Glucose Urine UA Norm (Normal); Ketones Urine Negative (Negative); Protein Urine Trace (Negative); Specific Gravity, Urine 1.005 (1.005-1.030); Urine Appearance Cloudy (CLEAR); Urine Color Yellow (Yellow); pH Urine 7 (5-7)
[2020-05-02 06:01] LABS: Add Urine Culture? Yes; Bacteria Urine 1+; Bilirubin Urine Neg (NEGATIVE); Leukocyte Esterase Urine 2+ (Negative); Nitrate Urine Negative (Negative); RBC Urine 0-4 /hpf (0-2); Squamous Epithelial Cell Urine 0-4 (0-5); Urobilinogen Urine Norm (Negative); WBC Urine TOO NUMEROUS TO CNT /hpf (0-5)
--- NOTE | 2020-05-02 07:00 | PC.NURSE ---
Report received from DANNY Winchester. Pt had an uneventful night. Snyder pale urine noted and sent to lab. No resp distress, no arrythmias noted. Belly slightly distended and still operator gin.
[2020-05-02 07:46] LABS: Glucose Point of Care 193 mg/dL (70-110)
[2020-05-02] MEDS: levothyroxine 100 mcg Tablet 200 MCG PO (08:04)
[2020-05-02] MEDS: sodium chloride 0.9% 1,000 ML 50 ML IV ×2 (08:04→08:19)
[2020-05-02] MEDS: atorvastatin 40 mg Tablet 20 MG PO (08:04)
[2020-05-02] MEDS: pantoprazole 40 mg SDV IVP (08:05)
--- NOTE | 2020-05-02 08:19 | PC.NURSE ---
MAR: Dialysis needed 2 bags of NS, both scanned into MAR, per direction of Arley Tim when this nurse spoke to him about this. Primaxin, antibiotic, on hold until after Dialysis, as it is dialyzable. Dr Rdz aware and ok'd
--- NOTE | 2020-05-02 08:24 | PC.NURSE ---
MICRO PD CATHETER TIP CULTURE WAS REORDERED TISSUE CULTURE PER ARNAV IN LAB. DR DURANT NOTIFIED & OK'D
[2020-05-02 09:14] LABS: Hepatitis B Core AB, Total Non-Reactive (Nonreactive); Hepatitis B Surface Antigen Non-Reactive (Nonreactive)
--- NOTE | 2020-05-02 09:42 | P.PN_ITS ---
Subjective Subjective: Interval history: seen during HD, alert. Mild abdominal pain. no flatus Medications: Reviewed: Yes Vitals/I&O/Wt Last Vital Signs Temp 98.6 F 05/02/20 05:00 Pulse 91 05/02/20 05:45 Resp 19 H 05/02/20 05:45 BP 137/70 05/02/20 05:45 Pulse Ox 95 05/02/20 05:45 05/01/20 05/02/20 05/02/20 22:59 06:59 14:59 Intake Total 240 / 390 480 / 870 1000 / 1000 Output Total 40 / 40 500 / 540 Balance 200 / 350 -20 / 330 1000 / 1000 Weight last 48 hrs Weight 68.039 kg Weight 68.039 kg Physical Exam Const: COMMON NORMALS: no acute distress Neck/C-Spine: OTHER: right IJ HD catheter Resp: COMMON NORMALS: clear to auscultation bilaterally AUSCULTATION: clear to auscultation bilaterally Cardio: COMMON NORMALS: regular rate and regular rhythm RATE: regular rate RHYTHM: regular rhythm GI: OTHER: distended, incision below umbilicus Extremity: COMMON NORMALS: no pedal edema Urinary Catheter Management^: Spears: Cath Placed During This Visit: yes Reason for Continuing Indwelling Catheter: Accurate Measurement of Urinary Output in Critically Ill Patients Urinary Catheter Date of Insertion: 05/01/20 Urinary Catheter Time of Insertion: 13:51 Data : 05/02/20 04:20 05/02/20 04:20 Other Labs: Urine TNTC WBC Micro: Microbiology 05/01/20 09:43 Blood Culture - Preliminary Blood SPECIMEN COLLECTED 05/01/20 09:35 Blood Culture - Preliminary Blood SPECIMEN COLLECTED A&P Additional A&P Information Impression: 1. ESRD 2. Peritonitis, sepsis, s/p removal of peritoneal dialysis catheter. Lab states they have PD catheter tip to culture, but no PD fluid 3. UTI 4. Hypertension 5. Anemia, receiving SQ epogen MWF 6. Diabetes 7. Hyponatremia, improved Recommendation: Hemodialysis 05/02/20. 4hours, 2 liter UF, 2K, 2.5 Ca. Follow up blood, urine and peritoneal cultures. I spoke with Dr Clark. We agree pleural tube can be removed prior to discharge. 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
--- NOTE | 2020-05-02 10:51 | ANE.PACU2 ---
Inpatient post-anesthesia follow up: Airway intact: Yes Vital signs: Temperature 99.3 F Pulse Rate 87 Respiratory Rate 19 Blood Pressure 123/58 Pulse Oximetry 100 Oxygen Delivery Me thod [ Room Air Current Rate & Del filippo] Oxygen Delivery Me thod Room Air Oxygen Flow Rate 2 Fraction of Inspir ed Oxygen 96 Hydration adequate: Yes Nausea and vomiting: No Pain level: 5 Mental status: Baseline
[2020-05-02 11:44] LABS: Glucose Point of Care 115 mg/dL (70-110)
--- NOTE | 2020-05-02 12:02 | PM.PN ---
Subjective Subjective: Interval history: Patient awake in bed at time of exam this morning. Reports that she continues to have some tenderness over her abdomen but pain is improved from admission. Discussed with her plan for transfer out of the ICU and she verbalizes understanding and agrees with plan. Discussed continuation of IV antibiotics at this time until further cultures return. We will continue with hemodialysis today. Medications: Reviewed: Yes Vitals/I&O/Wt Last Vital Signs Temp 99.3 F 05/02/20 08:00 Pulse 87 05/02/20 10:00 Resp 19 H 05/02/20 10:00 BP 123/58 05/02/20 10:00 Pulse Ox 100 05/02/20 10:00 05/01/20 05/02/20 05/02/20 22:59 06:59 14:59 Intake Total 240 / 390 480 / 870 1250 / 1250 Output Total 40 / 40 500 / 540 Balance 200 / 350 -20 / 330 1250 / 1250 Weight last 48 hrs Weight 68.039 kg Weight 68.039 kg Physical Exam Const: COMMON NORMALS: patient oriented x3 and alert GENERAL APPEARANCE: cooperative ORIENTATION/CONSCIOUSNESS: Yes awake, Yes oriented to person, Yes oriented to place and Yes oriented to time HENMT: COMMON NORMALS: normocephalic and atraumatic HEAD & SCALP: normocephalic and atraumatic Eye: COMMON NORMALS: Equal, round and reactive pupils present PUPIL: Yes Equal, round and reactive pupils present Neck/C-Spine: COMMON NORMALS: supple GENERAL: Yes normal visual inspection Resp: COMMON NORMALS: normal respiratory effort and clear to auscultation bilaterally EFFORT & INSPECTION: Yes able to speak in complete sentences AUSCULTATION: clear to auscultation bilaterally, no rhonchi and no wheezes Cardio: COMMON NORMALS: regular rate, regular rhythm and No murmurs present (Cardio) RATE: regular rate RHYTHM: regular rhythm GI: OTHER: Tenderness to palpation over the anterior abdomen, rigidity has improved, hypoactive bowel sounds : COMMON NORMALS: Yes no CVA tenderness BLADDER/KIDNEY EXAM: Yes no CVA tenderness Back/Pelvis: COMMON NORMALS: no CVA tenderness Extremity: COMMON NORMALS: no clubbing, cyanosis or edema and no calf tenderness Neuro: COMMON NORMALS: patient oriented x3, CN's II-XII intact bilaterally, moves all extremities and no focal motor deficits SENSORIUM/ORIENTATION: Yes alert, Yes oriented to person, Yes oriented to place and Yes oriented to time SPEECH: speech normal Psych: COMMON NORMALS: mental status grossly normal and cooperative Skin: COMMON NORMALS: no rashes or lesions noted GENERAL SKIN EXAM: no rashes or lesions noted Urinary Catheter Management^: Spears: Cath Placed During This Visit: yes Reason for Continuing Indwelling Catheter: Accurate Measurement of Urinary Output in Critically Ill Patients Urinary Catheter Date of Insertion: 05/01/20 Urinary Catheter Time of Insertion: 13:51 Data : 05/02/20 04:20 05/02/20 04:20 Micro: Microbiology 05/01/20 09:43 Blood Culture - Preliminary Blood NEGATIVE TO DATE 05/01/20 09:35 Blood Culture - Preliminary Blood NEGATIVE TO DATE A&P Assessment and plan (1) Peritonitis due to infected peritoneal dialysis catheter: Patient postop day #1 from diagnostic laparoscopy with removal of peritoneal dialysis catheter Initial concern for peritonitis, remains on broad-spectrum IV antibiotics PD catheter tip sent for culture CT scan showed peritoneal dialysis catheter with concern for attachment to small bowel Dr. Shrestha, general surgeon consulted, appreciate recommendations and assistance in patient's care. Status: Acute (2) Abdominal pain: Secondary to above postop day #1 Continue to follow with surgical recommendations Advance to clear liquid diet and gradually advance to renal diet Status: Acute (3) Diabetes mellitus: Continue sliding scale insulin, will continue with longer acting insulin if able to tolerate increase diet Status: Acute (4) End stage renal disease: Consult to nephrology Plan for hemodialysis today Patient will not likely be a good candidate for peritoneal dialysis in the future due to recurrent issues with peritoneal dialysis catheter placement Status: Acute (5) HTN (hypertension): Patient reports recently being taken off of her home blood pressure medications, will hold Aldactone, continue to monitor fluid status and blood pressure closely due to concern for sepsis secondary to intra-abdominal infection. Status: Acute (6) Hypothyroidism: Continue on levothyroxine 200 mcg daily Status: Acute (7) Sepsis: Sepsis with concern for intra-abdominal pathology as noted above Continue on broad-spectrum Primaxin Blood culture ordered and pending Peritoneal dialysis catheter to be removed, will send for culture Fluid Pleurx cath for culture Status: Acute (8) Anemia: Anemia of chronic disease with no active bleeding. Continue to monitor hemoglobin closely Status: Acute Additional A&P Information Hyponatremia: Improved Patient reports recently having cloudy urine: With prominence of WBCs and 1+ bacteria, recently had urinalysis dialysis center, awaiting records DVT prophylaxis: SCDs, no pharmacologic prophylaxis due to concern for intra-abdominal pathology requiring urgent surgery along with anemia with a hemoglobin of 8.2 at this time Diet: Fair liquid diet CODE STATUS: Full code, this was discussed with patient on admission Attestations Medical Necessity Statement*: Continued hospitalization due to concern for intra-abdominal infection with adherence of peritoneal dialysis catheter to small bowel requiring surgical removal Coding Level of Care Code Acute Correctional Probation Officer for [facility] Diagnoses Peritonitis due to infected peritoneal dialysis catheter T85.71XA; K65.9 Abdominal pain R10.9 Diabetes mellitus E11.9 End stage renal disease N18.6 HTN (hypertension) I10 Hypothyroidism E03.9 Sepsis A41.9 Anemia D64.9
--- NOTE | 2020-05-02 12:03 | PM.PN ---
Subjective Subjective: Interval history: No issues overnight, patient is getting hemodialysis currently. Still has some abdominal pain but no nausea or vomiting. Vitals/I&O/Wt Last Vital Signs Temp 99.3 F 05/02/20 08:00 Pulse 87 05/02/20 10:00 Resp 19 H 05/02/20 10:00 BP 123/58 05/02/20 10:00 Pulse Ox 100 05/02/20 10:00 05/01/20 05/02/20 05/02/20 22:59 06:59 14:59 Intake Total 240 / 870 480 / 870 1250 / 1250 Output Total 40 / 540 500 / 540 Balance 200 / 330 -20 / 330 1250 / 1250 Weight last 48 hrs Weight 150 lb Weight 150 lb Physical Exam Narrative: EXAM NARRATIVE: Abdomen: Soft, mildly distended, minimally tender, incision clean dry and intact Urinary Catheter Management^: Spears: Cath Placed During This Visit: yes Reason for Continuing Indwelling Catheter: Accurate Measurement of Urinary Output in Critically Ill Patients Urinary Catheter Date of Insertion: 05/01/20 Urinary Catheter Time of Insertion: 13:51 Data : 05/02/20 04:20 05/02/20 04:20 Micro: Microbiology 05/01/20 09:43 Blood Culture - Preliminary Blood NEGATIVE TO DATE 05/01/20 09:35 Blood Culture - Preliminary Blood NEGATIVE TO DATE A&P Assessment and plan (1) Peritoneal dialysis catheter site infection: Status post diagnostic laparoscopy with removal of peritoneal dialysis catheter postop day 1, WBC down to 17 today Cultures pending Continue IV antibiotics Medical management as per hospitalist service. Patient will need to stay on hemodialysis for the next few weeks Status: Acute Attestations Medical Necessity Statement*: Peritonitis Coding Level of Care Code Acute Hoop Bender Tank for [facility] Diagnoses Peritoneal dialysis catheter site infection T85.71XA
--- NOTE | 2020-05-02 15:06 | PC.NURSE ---
Report faxed to [facility]. Further verbal report given to DANNY Dejesus. All questions answered.
--- NOTE | 2020-05-02 15:36 | PC.NURSE ---
Addendum entered by Alyx Estevez RN 05/02/20 15:41: Valuables ( vann) in a signed and sealed envelope. Original Note: Pt transferred to room 270 via W/C. All belongings ( bag with clothing and other things, flower arrangement, cell phne and dry pan charger and valuables;vann (removed from ICU pyxis)) with pateint. Charge nurse, Neeta (at nurse desk) and DANNY Dejesus, primary nurse informed of valuables at pt's bedside.
[2020-05-02 17:17] LABS: Glucose Point of Care 232 mg/dL (70-110)
[2020-05-02 20:31] LABS: Glucose Point of Care 217 mg/dL (70-110)
[2020-05-02] MEDS: epoetin alfa 10,000 unit/mL INJ 10000 UNIT SUBCUT (21:08)
[2020-05-02] MEDS: ropinirole 0.25 mg Tablet 0.5 MG PO (21:09)
[2020-05-03] VITALS: BP 124/66; PULSE 85; RESP 17; TEMP 37.2; O2SAT 94
[2020-05-03] MEDS: sodium chloride 0.9% 1,000 ML 50 ML IV (00:18)
[2020-05-03 04:00] VITALS: BP 133/79; PULSE 88; RESP 17; TEMP 36.8; O2SAT 97
[2020-05-03 06:15] LABS: Glucose Point of Care 189 mg/dL (70-110)
[2020-05-03 07:52] VITALS: BP 149/68; PULSE 86; RESP 18; TEMP 36.6; O2SAT 96
[2020-05-03] MEDS: levothyroxine 100 mcg Tablet 200 MCG PO (08:52)
[2020-05-03] MEDS: atorvastatin 40 mg Tablet 20 MG PO (08:52)
[2020-05-03] MEDS: pantoprazole 40 mg SDV IVP (08:53)
[2020-05-03 10:11] LABS: Basophils # 0.1 10^3/uL (0.0-0.1); Basophils % 0.5 %; Eosinophils # 0.2 10^3/uL (0.0-0.8); Eosinophils % 1.5 %; Hematocrit 25.3 % (37.0-47.0); Lymphocytes # 0.8 10^3/uL (0.8-4.8); Lymphocytes % 5.7 %; Mean Corpuscular HGB Conc 31.6 g/dL (30.0-36.0); Mean Corpuscular Hemoglobin 28.8 pg (28.0-34.0); Mean Platelet Volume 10.8 fL (7.4-10.4); Monocytes # 0.7 10^3/uL (0.2-0.9); Monocytes % 5.2 %; Neutrophils # 11.2 10^3/uL (1.8-7.7); Neutrophils % 85.3 %; Nucleated Red Blood Cells % 0 %; Platelet Count 292 10^3/cmm (130-400); Red Blood Count 2.78 10^6/uL (4.1-5.3); Red Cell Distribution Width 15.9 % (12.1-15.1); White Blood Count 13.1 10^3/uL (4.0-10.0)
--- NOTE | 2020-05-03 10:23 | P.PN_ITS ---
Subjective Subjective: Interval history: Patient denies any nausea, tolerating full liquid diet, passing flatus, no BM yet. States abdominal pain is better though still present Vitals/I&O/Wt Last Vital Signs Temp 97.9 F 05/03/20 07:52 Pulse 86 05/03/20 07:52 Resp 18 05/03/20 07:52 BP 149/68 05/03/20 07:52 Pulse Ox 96 05/03/20 07:52 05/02/20 05/03/20 05/03/20 22:59 06:59 14:59 Intake Total 480 / 3129.167 799.167 / 3129.167 240 / 240 Output Total 650 / 650 Balance 480 / 2479.167 149.167 / 2479.167 240 / 240 Weight last 48 hrs Weight 152 lb 8 oz Weight 150 lb Physical Exam Narrative: EXAM NARRATIVE: Abdomen: soft mildly distended, tender, incisions clean dry, packed with quarter inch ribbon gauze Urinary Catheter Management^: Spears: Cath Placed During This Visit: yes Reason for Continuing Indwelling Catheter: Accurate Measurement of Urinary Output in Critically Ill Patients Urinary Catheter Date of Insertion: 05/01/20 Urinary Catheter Time of Insertion: 13:51 Data : 05/03/20 09:58 05/02/20 04:20 Micro: Microbiology 05/01/20 04:20 Urine Culture - Preliminary Urine,Clean Catch 05/01/20 17:50 Gram Stain - Final Other Source 05/01/20 09:43 Blood Culture - Preliminary Blood NEGATIVE TO DATE 05/01/20 09:35 Blood Culture - Preliminary Blood NEGATIVE TO DATE A&P Assessment and plan (1) Peritoneal dialysis catheter site infection: Status post diagnostic laparoscopy with removal of peritoneal dialysis catheter postop day 2, WBC down to 13 today Cultures pending Continue IV antibiotics I have added senna S to her bowel regimen since she appeared pretty constipated on the CT scan Medical management as per hospitalist service. Patient will need to stay on hemodialysis for the next few weeks Status: Acute Attestations Medical Necessity Statement*: Peritoneal dialysis catheter malfunction, leukocytosis requiring continued inpatient stay for IV antibiotics Coding Level of Care Code Acute Blood Bank Business Manager for [facility] Diagnoses Peritoneal dialysis catheter site infection T85.71XA
[2020-05-03 10:31] LABS: Alanine Aminotransferase 28 U/L (0-33); Albumin Level 2.8 g/dL (3.5-5.2); Alkaline Phosphatase 214 IU/L (35-105); Anion Gap 18.5 (5-19); Aspartate Amino Transferase 13 U/L (0-32); Blood Urea Nitrogen 39 mg/dL (8-23); Calcium 8.5 mg/dL (8.5-10.5); Carbon Dioxide 22 mmol/L (22-29); Chloride 90 mmol/L (98-107); Globulin 4.1 g/dL (1.3-4.6); Glucose 336 mg/dL (65-115); Osmolality Calculated 275 mOsm/kg (285-295); Phosphorus 4.1 mg/dL (2.5-4.5); Potassium 3.5 mmol/L (3.5-5.1); Sodium 127 mmol/L (136-145); Total Bilirubin 0.3 mg/dL (0.15-1.2); Total Protein 6.9 g/dL (6.6-8.7)
--- NOTE | 2020-05-03 10:41 | PC.CHAP ---
Pastoral Care Encounter/Spiritual Assessment Type of Contact [] Declined excavation laborer visit [] Patient/Family/Request visit [] Outpatient visit [] Follow-up visit [] Physician referral [] Code/Alert [x] Routine visit [] Staff referral [] Actively dying [] Patient sleeping [] Family support [] [] Out of room [] Palliative care [] [] Receiving care in room [] Pre-surgical visit [] Trauma [] Long length of stay [] ICU visit [] Other: Relational/Emotional Strength [x] Patient feels connected with others/family/visitors/staff [] Distress [] Loneliness/isolation [] Abandonment Spirituality of Patient [x] Person of Dede [x] Attends Zoroastrian of their Dede [x] Believes in Prayer [x] Reads Bible or Samaritan materials [] There are Spiritual issues to be addressed Calculus Professor Interventions [x] Prayer [x] Active listening [x] Non-anxious presence [x] Spiritual/emotional support [] Crisis/trauma care [] Spiritual counseling [] Bereavement support [] Provided bereavement packet [] Provided Bible/devotional materials [] Provided toy/stuffed animal, coloring book to patient or family member [] Provided Communion [] Anointing/[place] [] Salvation [x] Completed spiritual assessment [] Other: Impact on Illness or Injury [] Angry [] Fearful [] Anxious [] Often cries [] Exhaustion [] Unable to work [] Unable to attend uatsdin [] Unable to walk/stand [] Unable to read [] Unable to drive [] Unable to eat/drink [] Unable to sleep [] Unable to be with family [] Patient intubated [x] Other: Summary 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 Time spent with patient 10 minutes
[2020-05-03 11:06] VITALS: BP 126/69; PULSE 87; RESP 18; TEMP 36.8; O2SAT 95
--- NOTE | 2020-05-03 11:43 | P.PN_ITS ---
Subjective Subjective: Interval history: Patient awake in bed at time of exam. She reported that abdominal pain still slightly present in the left lower quadrant, however continues to improve. Now passing flatus, has not had a bowel movement. She denies any nausea or vomiting. Discussed with patient concern for positive culture from peritoneal dialysis catheter, she verbalized understanding. Medications: Reviewed: Yes Vitals/I&O/Wt Last Vital Signs Temp 98.2 F 05/03/20 11:06 Pulse 87 05/03/20 11:06 Resp 18 05/03/20 11:06 BP 126/69 05/03/20 11:06 Pulse Ox 95 05/03/20 11:06 05/02/20 05/03/20 05/03/20 22:59 06:59 14:59 Intake Total 480 / 2330 799.167 / 3129.167 240 / 240 Output Total 650 / 650 Balance 480 / 2330 149.167 / 2479.167 240 / 240 Weight last 48 hrs Weight 69.173 kg Weight 68.039 kg Physical Exam Const: COMMON NORMALS: patient oriented x3 and alert GENERAL APPEARANCE: cooperative ORIENTATION/CONSCIOUSNESS: Yes awake, Yes oriented to person, Yes oriented to place and Yes oriented to time HENMT: COMMON NORMALS: normocephalic and atraumatic HEAD & SCALP: normocephalic and atraumatic Eye: COMMON NORMALS: Equal, round and reactive pupils present PUPIL: Yes Equal, round and reactive pupils present Neck/C-Spine: COMMON NORMALS: supple GENERAL: Yes normal visual inspection Resp: COMMON NORMALS: normal respiratory effort and clear to auscultation bilaterally EFFORT & INSPECTION: Yes able to speak in complete sentences AUSCULTATION: clear to auscultation bilaterally, no rhonchi and no wheezes Cardio: COMMON NORMALS: regular rate, regular rhythm and No murmurs present (Cardio) RATE: regular rate RHYTHM: regular rhythm GI: OTHER: Improved tenderness over the anterior abdominal wall, normal bowel sounds, tenderness to palpation in the left lower quadrant : COMMON NORMALS: Yes no CVA tenderness BLADDER/KIDNEY EXAM: Yes no CVA tenderness Back/Pelvis: COMMON NORMALS: no CVA tenderness Extremity: COMMON NORMALS: no clubbing, cyanosis or edema and no calf tenderness Neuro: COMMON NORMALS: patient oriented x3, CN's II-XII intact bilaterally, moves all extremities and no focal motor deficits SENSORIUM/ORIENTATION: Yes alert, Yes oriented to person, Yes oriented to place and Yes oriented to time SPEECH: speech normal Psych: COMMON NORMALS: mental status grossly normal and cooperative Skin: COMMON NORMALS: no rashes or lesions noted GENERAL SKIN EXAM: no rashes or lesions noted Urinary Catheter Management^: Spears: Cath Placed During This Visit: yes Reason for Continuing Indwelling Catheter: Accurate Measurement of Urinary Output in Critically Ill Patients Urinary Catheter Date of Insertion: 05/01/20 Urinary Catheter Time of Insertion: 13:51 Data : 05/03/20 09:58 05/03/20 09:58 Micro: Microbiology 05/01/20 17:50 Gram Stain - Final Other Source Tissue Culture - Preliminary Coagulase negativ staphylococc 05/01/20 04:20 Urine Culture - Preliminary Urine,Clean Catch 05/01/20 09:43 Blood Culture - Preliminary Blood NEGATIVE TO DATE 05/01/20 09:35 Blood Culture - Preliminary Blood NEGATIVE TO DATE A&P Assessment and plan (1) Peritonitis due to infected peritoneal dialysis catheter: Patient postop day #2 from diagnostic laparoscopy with removal of peritoneal dialysis catheter Initial concern for peritonitis, remains on broad-spectrum IV antibiotics PD catheter culture showing staph Blood culture showed no growth to date, will follow up with final catheter cu lture Follow-up with recommendations from deja Michel consultation Status: Acute (2) Abdominal pain: Secondary to above postop day #2 Continue to follow with surgical recommendations Full liquid diet and will advance to soft diet Status: Acute (3) Diabetes mellitus: Continue sliding scale insulin, start lantus 10U daily Status: Acute (4) End stage renal disease: Consult to nephrology Plan for hemodialysis M,W,F Patient will not likely be a good candidate for peritoneal dialysis in the future due to recurrent issues with peritoneal dialysis catheter placement Status: Acute (5) HTN (hypertension): Patient reports recently being taken off of her home blood pressure medications, will hold Aldactone Status: Acute (6) Hypothyroidism: Continue on levothyroxine 200 mcg daily Status: Acute (7) Sepsis: Improved Continue IV antibiotics due to concern for peritonitis Status: Acute (8) Anemia: Anemia of chronic disease with no active bleeding. Continue to monitor hemoglobin closely Status: Acute Additional A&P Information Hyponatremia: IV fluids discontinued Patient reports recently having cloudy urine: Culture shows no significant growth DVT prophylaxis: SCDs, will start heparin today Diet: GI soft diet CODE STATUS: Full code, this was discussed with patient on admission Attestations Medical Necessity Statement*: Patient requires continued hospitalization due to concern for peritonitis with peritoneal dialysis catheter removal Coding Level of Care Code Acute Cascara Bark Cutter for Chg Fwd Diagnoses Peritonitis due to infected peritoneal dialysis catheter T85.71XA; K65.9 Abdominal pain R10.9 Diabetes mellitus E11.9 End stage renal disease N18.6 HTN (hypertension) I10 Hypothyroidism E03.9 Sepsis A41.9 Anemia D64.9
[2020-05-03 11:56] LABS: Glucose Point of Care 294 mg/dL (70-110)
[2020-05-03] MEDS: heparin 5,000 unit/mL INJ 1 mL 5000 UNIT SUBCUT ×2 (12:33→23:23)
[2020-05-03] MEDS: vancomycin 1,000 MG in sodium chloride 0.9% 250 ML 250 MG IV (15:04)
[2020-05-03 15:24] VITALS: BP 133/73; PULSE 85; RESP 18; TEMP 36.8; O2SAT 96
--- NOTE | 2020-05-03 15:45 | P.PN_ITS ---
Subjective Subjective: Interval history: s/p PD catheter removal. abdomen still sore. + flatus, no BM Medications: Reviewed: Yes Vitals/I&O/Wt Last Vital Signs Temp 98.2 F 05/03/20 15:24 Pulse 85 05/03/20 15:24 Resp 18 05/03/20 15:24 BP 133/73 05/03/20 15:24 Pulse Ox 96 05/03/20 15:24 05/03/20 05/03/20 05/03/20 06:59 14:59 22:59 Intake Total 899.167 / 3229.167 240 / 240 100 / 340 Output Total 650 / 650 500 / 500 Balance 249.167 / 2579.167 -260 / -260 100 / -160 Weight last 48 hrs Weight 69.173 kg Weight 68.039 kg Physical Exam Const: COMMON NORMALS: no acute distress Resp: COMMON NORMALS: normal respiratory effort and clear to auscultation bilaterally AUSCULTATION: clear to auscultation bilaterally Cardio: COMMON NORMALS: regular rate and regular rhythm RATE: regular rate RHYTHM: regular rhythm Urinary Catheter Management^: Spears: Cath Placed During This Visit: yes Reason for Continuing Indwelling Catheter: Accurate Measurement of Urinary Output in Critically Ill Patients Urinary Catheter Date of Insertion: 05/01/20 Urinary Catheter Time of Insertion: 13:51 Data : 05/03/20 09:58 05/03/20 09:58 Micro: Microbiology 05/01/20 17:50 Gram Stain - Final Other Source Tissue Culture - Preliminary Coagulase negativ staphylococc 05/01/20 04:20 Urine Culture - Preliminary Urine,Clean Catch A&P Additional A&P Information Impression: 1. ESRD 2. Peritonitis, sepsis, s/p removal of peritoneal dialysis catheter. Culture + coag neg staph, vancomycin added 3. Pyuria, culture < 5000 GNR 4. Hypertension 5. Anemia, receiving SQ epogen MWF 6. Diabetes 7. Hyponatremia, improved Recommendation: Hemodialysis 05/04/20. 4hours, 2 liter UF, 2K, 2.5 Ca. Vancomycin can be dosed at dialysis Attestations Medical Necessity Statement*: per primary service Coding Level of Care Code Acute Framing Mechanic for [facility]
[2020-05-03 17:07] LABS: Glucose Point of Care 133 mg/dL (70-110)
[2020-05-03] MEDS: sennosides-docusate Tablet 1 TAB PO (18:00)
[2020-05-03 20:00] VITALS: BP 159/79; PULSE 94; RESP 18; TEMP 36.7; O2SAT 99
[2020-05-03 21:38] LABS: Glucose Point of Care 254 mg/dL (70-110)
[2020-05-03] MEDS: insulin glargine 100 units/1 mL 10 UNIT SUBCUT (22:53)
[2020-05-03] MEDS: ropinirole 0.25 mg Tablet 0.5 MG PO (22:54)
[2020-05-04 00:05] VITALS: BP 147/63; PULSE 86; RESP 12; TEMP 36.9; O2SAT 94
[2020-05-04 03:47] LABS: Basophils # 0.1 10^3/uL (0.0-0.1); Basophils % 0.7 %; Eosinophils # 0.3 10^3/uL (0.0-0.8); Eosinophils % 3.5 %; Hematocrit 24.1 % (37.0-47.0); Hemoglobin 7.5 g/dL (11.5-15.3); Lymphocytes # 0.8 10^3/uL (0.8-4.8); Lymphocytes % 8.7 %; Mean Corpuscular HGB Conc 31.1 g/dL (30.0-36.0); Mean Corpuscular Hemoglobin 29.1 pg (28.0-34.0); Mean Corpuscular Volume 93.4 fL (81-99); Mean Platelet Volume 11.1 fL (7.4-10.4); Monocytes # 0.6 10^3/uL (0.2-0.9); Neutrophils % 77.4 %; Nucleated Red Blood Cells % 0 %; Platelet Count 259 10^3/cmm (130-400); Red Blood Count 2.58 10^6/uL (4.1-5.3); Red Cell Distribution Width 15.9 % (12.1-15.1)
[2020-05-04 04:00] VITALS: BP 144/79; PULSE 83; RESP 12; TEMP 36.6; O2SAT 98
[2020-05-04 04:20] LABS: Alanine Aminotransferase 18 U/L (0-33); Albumin Level 2.6 g/dL (3.5-5.2); Alkaline Phosphatase 167 IU/L (35-105); Anion Gap 17.7 (5-19); Aspartate Amino Transferase 9 U/L (0-32); Blood Urea Nitrogen 47 mg/dL (8-23); Calcium 8.4 mg/dL (8.5-10.5); Carbon Dioxide 21 mmol/L (22-29); Chloride 94 mmol/L (98-107); Globulin 3.9 g/dL (1.3-4.6); Glucose 179 mg/dL (65-115); Osmolality Calculated 271 mOsm/kg (285-295); Potassium 3.7 mmol/L (3.5-5.1); Sodium 129 mmol/L (136-145); Total Bilirubin 0.3 mg/dL (0.15-1.2); Total Protein 6.5 g/dL (6.6-8.7)
[2020-05-04 06:52] LABS: Glucose Point of Care 177 mg/dL (70-110)
[2020-05-04 08:00] VITALS: BP 144/62; PULSE 82; RESP 16; TEMP 36.6; O2SAT 100
--- NOTE | 2020-05-04 08:45 | PC.SOCIAL ---
IMM Page 2 of IMM explained to patient. Initialed, dated, and timed and placed in chart. Copy provided to patient.
[2020-05-04] MEDS: atorvastatin 40 mg Tablet 20 MG PO (08:48)
[2020-05-04] MEDS: pantoprazole 40 mg SDV IVP (08:49)
[2020-05-04] MEDS: sennosides-docusate Tablet 1 TAB PO ×2 (08:49→18:33)
[2020-05-04] MEDS: levothyroxine 100 mcg Tablet 200 MCG PO (08:49)
[2020-05-04 11:59] LABS: Glucose Point of Care 178 mg/dL (70-110)
[2020-05-04 12:00] VITALS: BP 160/73; PULSE 85; RESP 20; TEMP 36.6; O2SAT 100
[2020-05-04] MEDS: polyethylene glycol 3350 Pkt 17 gm PO (12:01)
[2020-05-04 12:22] LABS: Hematocrit 28.8 % (37.0-47.0); Hemoglobin 9.1 g/dL (11.5-15.3)
--- NOTE | 2020-05-04 12:29 | P.DS_ITS ---
Discharge Providers Date of Admission: 05/01/20 18:21 Date of Discharge: May 04, 2020 Attending Provider at Admission: Milagros Rdz DO Attending Provider at Discharge: Cabrera Shrestha MD Primary Care Provider: Cesar Mendez MD Diagnoses at Discharge Discharge Diagnosis (1) Peritonitis due to infected peritoneal dialysis catheter: Status: Acute (2) Abdominal pain: Status: Acute Problem details: Resolved (3) Diabetes mellitus: Status: Acute (4) End stage renal disease: Status: Acute Problem details: Currently on hemodialysis Thursday, Thursday, Thursday (5) HTN (hypertension): Status: Acute (6) Hypothyroidism: Status: Acute (7) Sepsis: Status: Acute Problem details: Resolved (8) Anemia: Status: Acute Problem details: Stable Reason for Visit Reason for Visit: DIALYSIS TUBE SITE PAIN Hospital Course Hospital Course: Patient was seen and evaluated in the emergency department due to concern for abdominal pain. She was noted to have concern for peritoneal dialysis catheter being adjacent to the small bowel with concern for infectious process. Concern for peritonitis with a white blood cell count of 25,000 on admission. She was started on broad-spectrum antibiotic coverage and general surgeon, Dr. Shrestha was consulted. Patient was taken to the OR for peritoneal dialysis catheter removal, culture was obtained from removed catheter. Nephrology was consulted and patient was continued on hemodialysis. Patient continued to improve status post removal of peritoneal dialysis catheter and IV antibiotics. Culture ended up growing coagulase-negative staph. Patient had been on Primaxin and vancomycin. On date of discharge she had been afebrile and white blood cell count had returned to normal. Patient was feeling well with no further abdominal pain or discomfort. She was eating and tolerating a regular diet with no nausea or vomiting, passing flatus. Discussed with general surgeon on date of discharge and he cleared patient for discharge with plan to follow-up in 2 weeks. 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 Patient verbalized understanding and agreed with plan. She stated that she was feeling well on date of discharge with no concerns. Physical Exam Const: COMMON NORMALS: patient oriented x3 and alert GENERAL APPEARANCE: cooperative ORIENTATION/CONSCIOUSNESS: Yes awake, Yes oriented to person, Yes oriented to place and Yes oriented to time HENMT: COMMON NORMALS: normocephalic and atraumatic HEAD & SCALP: normocephalic and atraumatic Eye: COMMON NORMALS: Equal, round and reactive pupils present PUPIL: Yes Equal, round and reactive pupils present Neck/C-Spine: COMMON NORMALS: supple GENERAL: Yes normal visual inspection Resp: COMMON NORMALS: normal respiratory effort and clear to auscultation bilaterally EFFORT & INSPECTION: Yes able to speak in complete sentences AUSCULTATION: clear to auscultation bilaterally, no rhonchi and no wheezes Cardio: COMMON NORMALS: regular rate, regular rhythm and No murmurs present (Cardio) RATE: regular rate RHYTHM: regular rhythm GI: OTHER: No tenderness to palpation throughout the abdomen, normal bowel sounds : COMMON NORMALS: Yes no CVA tenderness BLADDER/KIDNEY EXAM: Yes no CVA tenderness Back/Pelvis: COMMON NORMALS: no CVA tenderness Extremity: COMMON NORMALS: no clubbing, cyanosis or edema and no calf tenderness Neuro: COMMON NORMALS: patient oriented x3, CN's II-XII intact bilaterally, moves all extremities and no focal motor deficits SENSORIUM/ORIENTATION: Yes alert, Yes oriented to person, Yes oriented to place and Yes oriented to time SPEECH: speech normal Psych: COMMON NORMALS: mental status grossly normal and cooperative Skin: COMMON NORMALS: no rashes or lesions noted GENERAL SKIN EXAM: no rashes or lesions noted Urinary Catheter Management^: Spears: Cath Placed During This Visit: yes, but has since been removed by the nurse Reason for Continuing Indwelling Catheter: Decision to DC Catheter Urinary Catheter Date of Insertion: 05/01/20 Urinary Catheter Time of Insertion: 13:51 Date Urinary Catheter Removed: 05/03/20 Time Urinary Catheter Discontinued: 14:00 Discharge Data Data Completed and Pending: Completed Studies During Hospitalization Category Date Time Status CT abdomen pelvis w con* [id number] Urge nt Cat Scan 05/01/20 11:06 Completed XR chest 1V pushpa ble [id number] Stat Exams 05/01/20 09:28 Completed US abdomen limite d [id number] Urgent Ultrasound 05/01/20 09:46 Completed Pending at discharge Category Date Time Status Blood Culture Sta t Lab 05/01/20 09:43 Results Body Fluid Cultur e & GS Stat Lab 05/01/20 22:54 Ordered Tissue Culture an d Gram Stain Routi ne Lab 05/01/20 17:50 Results Labs from last 24 hours 05/04/20 05/04/20 05/04/20 12:05 11:53 06:42 WBC RBC Hgb 9.1 L Hct 28.8 L MCV MCH MCHC RDW Plt Count MPV Neut % (Auto) Lymph % (Auto) [place] % (Auto) Eos % (Auto) Baso % (Auto) Neut # (Auto) Lymph # (Auto) [place] # (Auto) Eos # (Auto) Baso # (Auto) Nucleated RBC % (a uto) Nucleated RBCs # Sodium Potassium Chloride Carbon Dioxide Anion Gap BUN Creatinine Glucose POC Glucose 178 177 Calculated Osmolal ity Calcium Total Bilirubin AST ALT Alkaline Phosphata se Total Protein Albumin Globulin 05/04/20 05/04/20 05/03/20 03:01 03:01 21:30 WBC 9.0 RBC 2.58 L Hgb 7.5 L Hct 24.1 L MCV 93.4 MCH 29.1 MCHC 31.1 RDW 15.9 H Plt Count 259 MPV 11.1 H Neut % (Auto) 77.4 Lymph % (Auto) 8.7 [place] % (Auto) 7.0 Eos % (Auto) 3.5 Baso % (Auto) 0.7 Neut # (Auto) 7.0 Lymph # (Auto) 0.8 [place] # (Auto) 0.6 Eos # (Auto) 0.3 Baso # (Auto) 0.1 Nucleated RBC % (a uto) 0 Nucleated RBCs # 0.0 Sodium 129 L Potassium 3.7 Chloride 94 L Carbon Dioxide 21 L Anion Gap 17.7 BUN 47 H Creatinine 3.9 H Glucose 179 H POC Glucose 254 Calculated Osmolal ity 271 L Calcium 8.4 L Total Bilirubin 0.3 AST 9 ALT 18 Alkaline Phosphata se 167 H Total Protein 6.5 L Albumin 2.6 L Globulin 3.9 05/03/20 16:54 WBC RBC Hgb Hct MCV MCH MCHC RDW Plt Count MPV Neut % (Auto) Lymph % (Auto) [place] % (Auto) Eos % (Auto) Baso % (Auto) Neut # (Auto) Lymph # (Auto) [place] # (Auto) Eos # (Auto) Baso # (Auto) Nucleated RBC % (a uto) Nucleated RBCs # Sodium Potassium Chloride Carbon Dioxide Anion Gap BUN Creatinine Glucose POC Glucose 133 Calculated Osmolal ity Calcium Total Bilirubin AST ALT Alkaline Phosphata se Total Protein Albumin Globulin Vitals: Last Vital Signs Temp 97.8 F 05/04/20 08:00 Pulse 82 05/04/20 08:00 Resp 16 05/04/20 08:00 BP 144/62 05/04/20 08:00 Pulse Ox 100 05/04/20 08:00 Discharge Plan Discharge Patient Disposition: Home, Self-Care Condition: Stable Prescriptions: New levofloxacin [Levaquin] 750 mg tablet 750 mg PO Q48H 5 Days Qty: 3 RF: 0 Continued atorvastatin 20 mg tablet 20 mg PO DAILY RF: 0 metolazone 5 mg tablet 5 mg PO DAILY RF: 0 levothyroxine 200 mcg capsule 200 mcg PO DAILY RF: 0 ferrous sulfate 325 mg (65 mg iron) tablet 325 mg PO BID RF: 0 tamsulosin 0.4 mg capsule 0.4 mg PO BID Qty: 60 RF: 12 Velphoro 500 mg Tablet,Chewable 500 - 1,000 mg PO TID RF: 0 amitriptyline 100 mg tablet 100 mg PO BEDTIME RF: 0 calcitriol 0.5 mcg capsule 0.5 mcg PO QMWF RF: 0 gentamicin 0.1 % cream 1 applic TOPICAL PRN PRN (Reason: Rash) RF: 0 sevelamer carbonate [Renvela] 800 mg tablet 1,600 mg PO TID RF: 0 PreserVision AREDS [id number] tablet 1 tab PO BID RF: 0 RenaPlex 800 mcg- 12.5 mg tablet 1 tab PO DAILY RF: 0 torsemide 100 mg tablet See Rx Instructions .ROUTE .COMPLEX RF: 0 ropinirole 0.5 mg tablet 0.5 mg PO BEDTIME RF: 0 insulin aspart U-100 [Novolog Flexpen U-100 Insulin] 100 unit/mL (3 mL) insulin pen See Rx Instructions .ROUTE .COMPLEX RF: 0 Tresiba FlexTouch U-100 100 unit/mL (3 mL) insulin pen 18 unit SUBCUT DAILY RF: 0 meclizine 25 mg tablet 25 mg PO TID PRN (Reason: motion sickness) Qty: 14 RF: 0 Held spironolactone [Aldactone] 50 mg tablet 50 mg PO DAILY RF: 0 Discontinued potassium chloride 10 mEq capsule, extended release 20 meq PO BID RF: 0 Discharge Orders: Discharge Order (Routine); Ordered 05/04/20 Ordered By: Milagros Rdz Referrals: Wu Clark MD [Referring] - 2 weeks Cabrera Shrestha MD [Physician] - 2 weeks Cesar Mendez MD [Primary Care Provider] - 1-3 days Mitchell Hinkle MD [Physician] - 1 week Discharge Diet: Advance as tolerated and Usual diet Discharge Activity: Increase activity as tolerated and Limit activity as instructed Activity Restrictions/Additional Instructions: Continue with postsurgical care and postsurgical activity as instructed per Dr. Shrestha Recommend holding on Aldactone at this time until follow-up with primary care provider and nephrology Discharge to home with Levaquin 750 mg every 48 hours, take after dialysis Continue with dialysis as scheduled on Thursday, Thursday, Thursday Will need close follow-up with Dr. Clark Call your physician or present to the ED for any acute illness or concern. For any worsening abdominal pain, increasing nausea or vomiting, unable to pass gas or have a bowel movement please call your physician or present to the ED. 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
--- NOTE | 2020-05-04 12:32 | P.PN_ITS ---
Subjective Subjective: Interval history: feels better today. has ambulated, out of bed in chair, ate breakfast. No bowel movement Medications: Reviewed: Yes Vitals/I&O/Wt Last Vital Signs Temp 97.8 F 05/04/20 08:00 Pulse 82 05/04/20 08:00 Resp 16 05/04/20 08:00 BP 144/62 05/04/20 08:00 Pulse Ox 100 05/04/20 08:00 05/03/20 05/04/20 05/04/20 22:59 06:59 14:59 Intake Total 990 / 1230 340 / 1570 240 / 240 Output Total 500 / 1000 200 / 1200 Balance 490 / 230 140 / 370 240 / 240 Weight last 48 hrs Weight 69.173 kg Physical Exam Const: COMMON NORMALS: no acute distress Urinary Catheter Management^: Spears: Cath Placed During This Visit: yes, but has since been removed by the nurse Reason for Continuing Indwelling Catheter: Decision to DC Catheter Urinary Catheter Date of Insertion: 05/01/20 Urinary Catheter Time of Insertion: 13:51 Date Urinary Catheter Removed: 05/03/20 Time Urinary Catheter Discontinued: 14:00 Data : 05/04/20 12:05 05/04/20 03:01 Micro: Microbiology 05/01/20 17:50 Gram Stain - Final Other Source Tissue Culture - Preliminary Staphylococcus lugdunensis 05/01/20 04:20 Urine Culture - Final Urine,Clean Catch A&P Additional A&P Information Impression: 1. ESRD 2. Peritonitis, Staph lugdunesis, sepsis, s/p removal of peritoneal dialysis catheter. Received 1 gram IV vanco yesterday 3. Pyuria, culture < 5000 GNR 4. Hypertension 5. Anemia, receiving SQ epogen MWF 6. Diabetes 7. Hyponatremia, stable Recommendation: Hemodialysis today. 4hours, 2 liter UF, 2K, 2.5 Ca. Vancomycin 750 mg IV today after dialysis to cover weekend. Suggest vancomycin 750 g IV QHD x 2 weeks - vanco levels should be sent from outpatient dialysis. Outpatient removal of pleural space catheter. Follow-up with outpatient supervisor chemical Dr Clark. 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
[2020-05-04 14:54] VITALS: BP 160/73; PULSE 85; RESP 20; TEMP 36.6; O2SAT 100
--- NOTE | 2020-05-04 15:19 | PM.PN ---
Subjective Subjective: Interval history: Patient still has some abdominal pain, passing flatus,. No nausea or vomiting Vitals/I&O/Wt Last Vital Signs Temp 97.9 F 05/04/20 14:54 Pulse 85 05/04/20 14:54 Resp 20 H 05/04/20 14:54 BP 160/73 05/04/20 14:54 Pulse Ox 100 05/04/20 14:54 05/04/20 05/04/20 05/04/20 06:59 14:59 22:59 Intake Total 340 / 1570 240 / 240 Output Total 200 / 1200 Balance 140 / 370 240 / 240 Weight last 48 hrs Weight 152 lb 8 oz Physical Exam Narrative: EXAM NARRATIVE: Abdomen: Soft, nontender, nondistended incisions healing well Urinary Catheter Management^: Spears: Cath Placed During This Visit: yes, but has since been removed by the nurse Reason for Continuing Indwelling Catheter: Decision to DC Catheter Urinary Catheter Date of Insertion: 05/01/20 Urinary Catheter Time of Insertion: 13:51 Date Urinary Catheter Removed: 05/03/20 Time Urinary Catheter Discontinued: 14:00 Data : 05/04/20 12:05 05/04/20 03:01 Micro: Microbiology 05/01/20 17:50 Gram Stain - Final Other Source Tissue Culture - Preliminary Staphylococcus lugdunensis 05/01/20 04:20 Urine Culture - Final Urine,Clean Catch A&P Assessment and plan (1) Peritoneal dialysis catheter site infection: Status post removal of PD catheter currently on hemodialysis doing well White count is down to 9 today DC home today on oral antibiotics Follow-up 2 weeks for staple removal and scheduling of PD catheter 4 weeks from now Status: Acute Attestations Medical Necessity Statement*: Infected PD catheter Coding Level of Care Code 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
[2020-05-04] MEDS: heparin, porcine 1,000 unit/mL INJ 10 mL HE (17:27)
[2020-05-04] MEDS: vancomycin 750 MG in sodium chloride 0.9% 250 ML 250 MG IV (18:33)
[2020-05-04 18:34] LABS: Glucose Point of Care 134 mg/dL (70-110)
--- NOTE | 2020-05-04 22:12 | PC.NURSE ---
Patient was assisted to ED parking lot via wheelchair with staff and all personal belongings, PT entered family vehicle with family members driving, left unit at 2100.
== END 2020-05-04 21:00 | disposition home or self-care (01) | DRG 907 ==
LOC: ER 13:47 → OPS 18:08 → ICU 05-02 09:53 → ER 05-02 10:14 → OPS 05-02 10:20 → ICU 05-02 10:24 → MEDSURG 05-02 15:52
PROVIDERS: Family Medicine; Internal Medicine; Admitting Provider Family Medicine; PCP Family Medicine; Visit Provider Surgery
PROC: 0WJG4ZZ Inspection of Peritoneal Cavity, Percutaneous Endoscopic Approach (ICD-10-PCS; CPT 49320; principal; 2020-05-01 15:00)
PROC: 0WJG4ZZ Inspection of Peritoneal Cavity, Percutaneous Endoscopic Approach (ICD-10-PCS; CPT 49422; 2020-05-01 15:00)
DX: T85.71XA Infection and inflammatory reaction due to peritoneal dialysis catheter, initial encounter (principal); A41.9 Sepsis, unspecified organism; N18.6 End stage renal disease; I12.0 Hypertensive chronic kidney disease with stage 5 chronic kidney disease or end stage renal disease; E87.1 Hypo-osmolality and hyponatremia; N39.0 Urinary tract infection, site not specified; Y82.8 Other medical devices associated with adverse incidents; E11.22 Type 2 diabetes mellitus with diabetic chronic kidney disease; Z99.2 Dependence on renal dialysis; E03.9 Hypothyroidism, unspecified; Z85.3 Personal history of malignant neoplasm of breast; E78.5 Hyperlipidemia, unspecified; D63.1 Anemia in chronic kidney disease; Z79.4 Long term (current) use of insulin
CPT/HCPCS: 12345; 36415; 36416; 36591; 51702; 71045; 74177; 76705; 80048; 80053; 81001; 82962; 83605; 83690; 84100; 85014; 85018; 85025; 86705; 86706; 87040; 87070; 87075; 87077; 87086; 87176; 87186; 87205; 87340; 90935; 96372; 96375; 99282; C9113; J0696; J0743; J1642; J1644; J1815; J2001; J2270; J2370; J2405; J2704; J3010; J3370; J3490; J7030; J7050; Q3014; Q4081; Q9967

== ENCOUNTER → 2020-05-31 05:59 | Day surgery (SDC) | payer MEDICARE, OTHER, SELFPAY ==
[2020-05-31 06:23] LABS: Glucose Point of Care 155 mg/dL (70-110)
[2020-05-31 06:26] VITALS: BP 128/63; PULSE 83; RESP 16; TEMP 36.5; O2SAT 100; BMI 26.5
--- NOTE | 2020-05-31 07:02 | P.HP_ITS ---
Same Day Surgery H&P Indication for Procedure/HPI DATE OF PROCEDURE: May 31, 2020 CHIEF COMPLAINT/INDICATIONFOR SURGICAL PROCEDURE: The patient is here for removal of the right-sided Pleurx catheter. PREOP DIAGNOSIS: Recurrent right-sided pleural effusion PLANNED PROCEDRUE: Right-sided Pleurx catheter removal Operation Date: 05/31/20 07:10 Proposed Procedures p Urich Drain Removal(Not Applicable) - Mitchell Hinkle MD This is 69-year-old lady with recurrent right-sided pleural effusion secondary to peritoneal dialysis had undergone an indwelling right-sided pleural catheter placement as well as pleurodesis. Now the patient is here for removal of the Pleurx catheter as there is no significant pleural effusion. Medications/Allergies* Home Medications Medication Instructions Recorded Confirmed Type atorvastatin 20 mg tablet 20 mg PO DAILY 11/28/19 05/31/20 History levothyroxine 200 mcg capsule 200 mcg PO DAILY 11/28/19 05/31/20 History metolazone 5 mg tablet 5 mg PO DAILY 11/28/19 05/31/20 History Tresiba FlexTouch U-100 18 unit SUBCUT DAILY 01/10/20 05/31/20 History insulin aspart U-100 [Novolog See Rx Instructions .ROUTE .COMPLEX 01/10/20 05/31/20 History Flexpen U-100 Insulin] ropinirole 0.5 mg PO BEDTIME 01/10/20 05/31/20 History torsemide See Rx Instructions .ROUTE .COMPLEX 01/10/20 05/31/20 History Velphoro 500 - 1,000 mg PO TID 03/15/20 05/31/20 History amitriptyline 100 mg PO BEDTIME 03/15/20 05/31/20 History PreserVision AREDS 1 tab PO BID 03/27/20 05/31/20 History RenaPlex 1 tab PO DAILY 03/27/20 05/31/20 History calcitriol 0.5 mcg PO QMWF 03/27/20 05/31/20 History gentamicin 1 applic TOPICAL PRN PRN 03/27/20 05/30/20 History sevelamer carbonate [Renvela] 1,600 mg PO TID 03/27/20 05/31/20 History spironolactone [Aldactone] 50 mg PO DAILY 03/27/20 05/31/20 History Allergies/Adverse Reactions Allergy/AdvReac Type Severity Reaction Status Date / Time Penicillins Allergy Mild ALGY-Rash Verified 05/31/20 06:13 propoxyphene [From Darvon] Allergy Mild ALGY-Rash Verified 05/31/20 06:13 codeine Allergy ALGY-Rash Verified 05/31/20 06:13 Pertinent History/Comorbid Conditions* Medical History (Updated 05/05/20 @ 00:00 by ) Cataract Chronic kidney disease (CKD) Closed fracture of left proximal humerus Hemodialysis patient History of peritoneal dialysis HTN (hypertension) Hx of breast cancer Hyperlipidemia Hypothyroidism Microcytic anemia Type 2 diabetes mellitus Surgical History (Updated 05/01/20 @ 13:44 by Milagros Rdz DO) H/O knee surgery H/O skin graft H/O tubal ligation History of kidney surgery History of lumpectomy of left breast History of surgery Right-sided pleurodesis and Pleurx catheter placement History of surgery on arm Hx of cataract surgery Hx of tonsillectomy S/P dialysis catheter insertion Peritoneal dialysis catheter placement x3 according to patient, revisions had to be performed in [facility] at an outside facility Hemodialysis catheter placement Family History (Updated 03/15/20 @ 12:27 by Christy Dc LPN) Father Mother Stroke Mother Father Social History Smoking and tobacco status: never smoked Alcohol intake: never Lives independently: Yes Household members: spouse Marital status: Current occupational status: employed History of recent travel: No Current gender identity: Female Pertinent Exam Findings alert, oriented x 3, clear to auscultation bilaterally, regular rate & rhythm and operative site marked Recommendations Surgery/Procedure today Coding Level of Care Code 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
--- NOTE | 2020-05-31 13:22 | PM.ACPR ---
Procedure/Consent Time out: Time Out Performed: Yes Consent: Consent for Procedure: Consent obtained from patient Procedure Narrative: Name of the procedure: Right-sided Pleurx catheter removal. Description of the procedure: The site was prepared using sterile technique. 1% lidocaine 12 mL was used to anesthetized the skin subcutaneous tissue and the site around the indwelling catheter. The catheter was mobilized by blunt dissection with forceps. The catheter was then removed to the entirety of its length. The catheter exit site was opposed with a single suture. Complication none Follow-up: The patient to follow-up with me in 1 week time. Acute Procedures Epistaxis Control: Time out performed: Yes
== END ==
PROVIDERS: PCP Family Medicine; Visit Provider Internal Medicine Critical Care Medicine
DX: J90 Pleural effusion, not elsewhere classified (principal); E11.22 Type 2 diabetes mellitus with diabetic chronic kidney disease; I12.9 Hypertensive chronic kidney disease with stage 1 through stage 4 chronic kidney disease, or unspecified chronic kidney disease; N18.9 Chronic kidney disease, unspecified; Z85.3 Personal history of malignant neoplasm of breast; E78.5 Hyperlipidemia, unspecified; E03.9 Hypothyroidism, unspecified
CPT/HCPCS: 12345; 36416; 82962

== ENCOUNTER → 2020-09-25 10:56 | Outpatient (BNVA) | payer MEDICARE, OTHER, SELFPAY | PROVIDERS: PCP Family Medicine; Visit Provider Specialist | DX: R42 Dizziness and giddiness (principal); M17.0 Bilateral primary osteoarthritis of knee; G11.9 Hereditary ataxia, unspecified; E11.42 Type 2 diabetes mellitus with diabetic polyneuropathy; E11.22 Type 2 diabetes mellitus with diabetic chronic kidney disease; I12.0 Hypertensive chronic kidney disease with stage 5 chronic kidney disease or end stage renal disease; N18.6 End stage renal disease; Z99.2 Dependence on renal dialysis; Z79.4 Long term (current) use of insulin | CPT/HCPCS: 99205 ==

== ENCOUNTER 2020-09-28 14:08 | Outpatient (CLI) | payer MEDICARE, OTHER, SELFPAY ==
--- NOTE | 2020-09-28 15:00 | USCV_ITS ---
María Saab Age: 70 Gender: F : 1950 Exam Date: 09/28/2020 14:35 Ordering Phys: Elsie Villagomez MD ([email or web address]) Technologist: Amy Leal Exam Location: [facility] – [place] Indication: Carotid Stenosis Risk Factors: Previous Vascular Surgery: Right Brachial BP: / Left Brachial BP: / Right Left Velocity (cm/s) Spectral Plaque Velocity (cm/s) Spectral Plaque Syst/Diast Broadening Syst/Diast Broadening 89.70/ 8.70 Prox CCA 124.50/ 10.80 80.90/ 9.50 Mid CCA 84.80 / 11.80 78.60/ 8.50 Distal CCA 70.80 / 11.80 56.60/ 10.80 Prox ICA 78.80 / 17.70 81.00/ 19.20 Mid ICA 104.00/ 21.20 105.30/21.50 Distal ICA 74.90 / 16.80 144.80 ECA 104.40 1.30 ICA/CCA 1.23 Antegrade Vertebral Antegrade 86.90/ 13.30 cm/s 49.20/ 9.20 cm/s Bi Subclavian Tri 170.5 165.0 0 0 FINDINGS Comparison: none available. No significant elevation of systolic or diastolic velocities. Waveforms are normal. Mixture of calcified and noncalcified plaque in the bifurcations. Bilateral antegrade vertebral arteries. CONCLUSIONS Bilateral ICA stenosis less than 50%. Mild atherosclerosis carotid bifurcations. Dr. Lilly Andre DO (Electronically Signed) Final Date: 28 September 2020 15:37 S
--- NOTE | 2020-09-28 15:45 | USCV_ITS ---
María Saab Age: 70 Gender: F : 1950 Exam Date: 09/28/2020 15:07 Ordering Phys: Elsie Villagomez MD ([email or web address]) Technologist: Mirian Alvares Exam Location: [facility] – [place] Indication: sob BP: / HR: 87 Rhythm: Sinus Technical Quality: Good MEASUREMENTS (Male / Female) Normal Values 2D ECHO LV Diastolic Diameter PLAX 5.4 cm 4.2 - 5.9 / 3.9 - 5.3 cm LV Systolic Diameter PLAX 4.5 cm IVS Diastolic Thickness 0.8 cm 0.6 - 1.0 / 0.6 - 0.9 cm IVS Systolic Thickness 0.8 cm LVPW Diastolic Thickness 0.7 cm 0.6 - 1.0 / 0.6 - 0.9 cm LVPW Systolic Thickness 1.2 cm LVOT Diameter 2.0 cm LV Ejection Fraction 2D Teich 33.7 % LV Ejection Fraction MOD 2C 73.7 % LV Ejection Fraction 2C AL 75.1 % LA Diameter 3.4 cm LA Width 4.0 cm LA Height 5.1 cm RA Width 3.1 cm RA Height 4.9 cm Aorta at Sinotubular Diameter 2.6 cm M-MODE LV Diastolic Diameter MM 6.0 cm 4.2 - 5.9 / 3.9 - 5.3 cm LV Systolic Diameter MM 3.6 cm LV Ejection Fraction MM Teich 69.9 % IVS Diastolic Thickness MM 1.3 cm 0.6 - 1.0 / 0.6 - 0.9 cm IVS Systolic Thickness MM 1.6 cm LVPW Diastolic Thickness MM 1.0 cm 0.6 - 1.0 / 0.6 - 0.9 cm LVPW Systolic Thickness MM 1.5 cm Aortic Annulus Diameter 2.9 cm LA Ao Ratio MM 1.4 MV E Point Septal Separation 0.8 cm DOPPLER AV Peak Velocity 181.0 cm/s LVOT Peak Velocity 128.0 cm/s AV Area Cont Eq vti 2.2 cm squared AV Area Cont Eq pk 2.2 cm squared MV Peak Velocity 195.0 cm/s MV Area PHT 3.9 cm squared Mitral E to A Ratio 1.1 MV E' Velocity 100.0 cm/s Mitral E to MV E' Ratio 28.3 Mitral E to LV E' Lateral Ratio 24.4 Mitral E to LV E' Septal Ratio 34.4 TR Peak Velocity 266.8 cm/s TR Peak Gradient 28.5 mmHg Right Atrial Pressure 3.0 mmHg Pulmonary Artery Systolic Pressu 31.5 mmHg PV Peak Velocity 121.7 cm/s RV Acceleration Time 0.1 s RV Ejection Time 0.3 s RV AcT/ET 0.3 FINDINGS Left Ventricle Normal left ventricular size, systolic function and wall thickness, with no regional wall motion abnormalities. Left ventricular ejection fraction is estimated at 65 %. Grade II diastolic dysfunction, moderately elevated filling pressures. Right Ventricle Normal right ventricular size and systolic function. Right ventricular systolic pressure 31.5 mmHg. Right Atrium Normal right atrial size. Right atrial pressure estimated at 3 mm Hg. Left Atrium Moderately increased left atrial size. Mitral Valve Moderate mitral annular calcification. Moderately thickened mitral valve. No mitral valve stenosis. Mild-moderate mitral valve regurgitation. Aortic Valve Mildly thickend trileaflet aortic valve. No aortic valve stenosis. No aortic valve regurgitation. Tricuspid Valve Structurally normal tricuspid valve. No tricuspid valve stenosis. Mild tricuspid valve regurgitation. Pulmonic Valve Pulmonic valve not well visualized. No pulmonary valve stenosis. Trace pulmonary valve regurgitation. Pericardium No pericardial effusion. Aorta Normal size aortic root and proximal ascending aorta. Normal sized inferior vena cava. CONCLUSIONS 1. Normal left ventricular size, systolic function and wall thickness, with no regional wall motion abnormalities. Left ventricular ejection fraction is estimated at 65 %. Grade II diastolic dysfunction, moderately elevated filling pressures. 2. Mild-moderate mitral valve regurgitation. 3. Pulmonary artery pressure estimated at 31 mm Hg. 4. Moderately increased left atrial size. 5. When compared to previous study dated 10/06/2017, there has been no significant change. Elsie Villagomez MD (Electronically Signed) Final Date: 28 September 2020 21:02 S
== END 2020-09-28 14:09 | disposition home or self-care (01) ==
LOC: RAD 14:21
PROVIDERS: PCP Family Medicine; Visit Provider Internal Medicine Cardiovascular Disease
DX: R06.02 Shortness of breath (principal); I34.0 Nonrheumatic mitral (valve) insufficiency; I65.23 Occlusion and stenosis of bilateral carotid arteries
CPT/HCPCS: 93306; 93880

== ENCOUNTER → 2020-10-02 09:08 | Outpatient (BNVA) | payer MEDICARE, OTHER, SELFPAY | PROVIDERS: PCP Family Medicine; Visit Provider Urology | DX: N11.1 Chronic obstructive pyelonephritis (principal); R33.9 Retention of urine, unspecified; R82.81 Pyuria | CPT/HCPCS: 81003; 87077; 87086; 87184 ==

== ENCOUNTER 2020-10-08 14:42 | Outpatient (CLI) | payer MEDICARE, OTHER, SELFPAY ==
--- NOTE | 2020-10-08 15:15 | MR_ITS ---
WS: [id number] MRI HEAD WITHOUT CONTRAST TECHNIQUE: Sagittal T1, T2 axial, T2 axial FLAIR, axial and coronal T1 images, axial susceptibility w eighted imaging, axial diffusion weighted images, and coronal T2 images were obtained. CLINICAL INFORMATION: R42 - Dizziness and giddiness COMPARISON: None. FINDINGS: Well-circumscribed extra-axial lesion overlying the left parietal convexity at the vertex posteriorly consistent with meningioma. This measures approximately 2.1 x 1.5 x 1.5 CM. Mild localized mass effe ct. No underlying edema. This appears unchanged compared to the CT . No restricted diffusion to suggest acute ischemia. Ventricular system and basal cisterns are patent. Mild small vessel changes. Moderate parenchymal volume loss. Small vessel changes in the loulou. Normal vascular flow voids at the skull base. No extra-axial fluid collections. Paranasal sinuses and masto id air cells well aerated. Benign partially empty sella. Moderate symmetric atrophy involving the temporal lobes and hippocampal formations. Normal optic helene sm and pituitary infundibulum. Normal cavernous sinuses and Meckel's cave. Small retention cyst right maxillary sinus measuring 1.5 CM. MR/MR head wo con* [id number] IMPRESSION: 1. 2.1 x 1.5 x 1.5 CM meningioma overlying the left parietal convexity global program director iorly at the vertex. No underlying edema. This appears unchanged prior CT. Nestor mmend annual surveillance with MRI without and with gadolinium 2. No restricted diffusion to suggest acute ischemia. 3. Mild small vessel changes. Moderate parenchymal volume loss. 4. Small vessel changes in the loulou. 5. Moderate symmetric atrophy involving the temporal lobes and hippocampal for mations. 6. 1.4 cm retention cyst right maxillary sinus.
== END 2020-10-08 14:43 | disposition home or self-care (01) ==
LOC: RADSHAW 14:46
PROVIDERS: PCP Family Medicine; Visit Provider Specialist
DX: R42 Dizziness and giddiness (principal); J34.1 Cyst and mucocele of nose and nasal sinus; G31.9 Degenerative disease of nervous system, unspecified; D32.0 Benign neoplasm of cerebral meninges
CPT/HCPCS: 70551

== ENCOUNTER → 2020-10-23 08:42 | Outpatient (BNVA) | payer MEDICARE, OTHER, SELFPAY | PROVIDERS: PCP Family Medicine; Visit Provider Specialist | DX: R20.0 Anesthesia of skin (principal); M17.0 Bilateral primary osteoarthritis of knee; G62.89 Other specified polyneuropathies | CPT/HCPCS: 95909 ==

== ENCOUNTER → 2021-01-01 11:09 | Outpatient (BNVA) | payer MEDICARE, OTHER, SELFPAY | PROVIDERS: PCP Family Medicine; Visit Provider Specialist | DX: G11.9 Hereditary ataxia, unspecified; E11.22 Type 2 diabetes mellitus with diabetic chronic kidney disease; E11.42 Type 2 diabetes mellitus with diabetic polyneuropathy; N18.6 End stage renal disease; Z99.2 Dependence on renal dialysis; Z79.4 Long term (current) use of insulin | CPT/HCPCS: 99214 ==

== ENCOUNTER 2021-01-07 06:00 | Outpatient (RCR) | payer MEDICARE, OTHER, SELFPAY | END 2021-02-06 23:59 | disposition home or self-care (01) | LOC: SPT 06:00 | PROVIDERS: PCP Family Medicine; Referring Provider Specialist; Visit Provider Specialist | DX: R26.89 Other abnormalities of gait and mobility (principal) | CPT/HCPCS: 97110; 97161 ==

== ENCOUNTER 2021-02-07 12:52 | Outpatient (RCR) | payer MEDICARE, OTHER, SELFPAY | END 2021-03-08 23:59 | disposition home or self-care (01) | LOC: SPT 12:52 | PROVIDERS: PCP Family Medicine; Referring Provider Specialist; Visit Provider Specialist | DX: R26.89 Other abnormalities of gait and mobility (principal); E03.9 Hypothyroidism, unspecified; E11.22 Type 2 diabetes mellitus with diabetic chronic kidney disease; N18.6 End stage renal disease; E11.319 Type 2 diabetes mellitus with unspecified diabetic retinopathy without macular edema; E11.42 Type 2 diabetes mellitus with diabetic polyneuropathy; E16.0 Drug-induced hypoglycemia without coma; T38.3X5A Adverse effect of insulin and oral hypoglycemic [antidiabetic] drugs, initial encounter | CPT/HCPCS: 97110; 99204 ==

== ENCOUNTER 2021-06-03 19:56 | Emergency (ER) | payer MEDICARE, OTHER, SELFPAY ==
[2021-06-03 20:56] VITALS: BP 193/75; PULSE 76; RESP 18; TEMP 36.7; O2SAT 97; BMI 29.7
[2021-06-03 23:48] LABS: Add Urine Microscopic? YES; Bacteria Urine TRACE /hpf; Bilirubin Urine Neg (Negative); Blood Urine 2+ (Negative); Glucose Urine UA 2+ (Normal); Ketones Urine Negative (Negative); Leukocyte Esterase Urine Negative (Negative); Mucus Urine TRACE /hpf; Nitrate Urine Negative (Negative); Protein Urine 1+ (Negative); Squamous Epithelial Cell Urine 15-25 /hpf (0-5); Sulfosalicylic Acid Urine Positive (Negative); Urine Appearance Clear (CLEAR); Urine Color Yellow (Yellow); Urobilinogen Urine Norm (Negative); pH Urine 9 (5-7)
[2021-06-03 23:49] LABS: Add Urine Culture? No; Renal Epithelial Cells Urine 0-4 /hpf
--- NOTE | 2021-06-04 00:46 | ED_ITS ---
HPI - Abdominal Pain General: Chief Complaint: Abdominal Pain Stated Complaint: ABD Pain On Dialysis Time Seen by Provider: 06/04/21 00:46 History of Present Illness: HPI narrative: Patient comes in with left flank pain starting today. Patient denies any nausea or vomiting. Patient reports the pain reminds her of her of a previous kidney infection she had on the right side. Patient is a dialysis patient with chronic renal failure, diabetes, hypothyroidism. Patient appears in no acute distress. Patient appears mildly unwell but not toxic. Review of Systems General: Reports: 10 or more systems reviewed and unremarkable except in HPI and below GI: Reports: abdominal pain : Reports: flank pain PFSH ED PFSH: Medical History Cataract Chronic kidney disease (CKD) Closed fracture of left proximal humerus Hemodialysis patient History of peritoneal dialysis HTN (hypertension) Hx of breast cancer Hydronephrosis Hyperlipidemia Hypothyroidism Incomplete bladder emptying Kidney stones Microcytic anemia Obstructive pyelonephritis Type 2 diabetes mellitus Ureteral obstruction, right HX OF RIGHT URETEROSCOPY WITH STENT PLACEMENT Surgical History H/O knee surgery H/O skin graft H/O tubal ligation History of kidney surgery History of lumpectomy of left breast History of surgery Right-sided pleurodesis and Pleurx catheter placement History of surgery on arm Hx of cataract surgery Hx of tonsillectomy S/P dialysis catheter insertion Peritoneal dialysis catheter placement x3 according to patient, revisions had to be performed in [facility] at an outside facility Hemodialysis catheter placement S/P hemodialysis catheter insertion Right IJ: Removed Family History Mother Stroke Father Stroke Social History Smoking and tobacco status: never smoked Alcohol intake: never Lives independently: Yes Household members: spouse Marital status: Current occupational status: employed History of recent travel: No Current gender identity: Female Physical Exam Const: COMMON NORMALS: no acute distress and patient oriented x3 GENERAL APPEARANCE: cooperative HENMT: COMMON NORMALS: normocephalic and Normal external nose present HEAD & SCALP: normal to inspection and normocephalic NOSE: Normal external nose present MOUTH: Normal oral and palatal mucosa present THROAT: posterior oropharynx normal Eye: GENERAL EYE: appearance normal, both eyes and all related structures Neck/C-Spine: COMMON NORMALS: full ROM Lymph: LYMPHATIC: no lymphadenopathy noted Chest: COMMONS NORMALS: normal inspection of the chest Resp: COMMON NORMALS: normal respiratory effort EFFORT & INSPECTION: Yes able to speak in complete sentences Cardio: COMMON NORMALS: regular rate and regular rhythm RATE: regular rate RHYTHM: regular rhythm GI: COMMON NORMALS: non-tender PALPATION: Yes Firmness to palpation present (GI) (Mildly distended.) and Yes Tenderness to palpation present (GI) Details: LUQ : BLADDER/KIDNEY EXAM: Yes CVA tenderness on the left Back/Pelvis: COMMON NORMALS: thoracic and lumbar spine normal to inspection GENERAL BACK: Yes CVA tenderness Extremity: COMMON NORMALS: normal to inspection Neuro: COMMON NORMALS: patient oriented x3 and moves all extremities Psych: COMMON NORMALS: mental status grossly normal and cooperative Skin: COMMON NORMALS: no rashes or lesions noted GENERAL SKIN EXAM: no rashes or lesions noted Course Vital Signs: Vital signs: Vital Signs Temperature 98.1 F 06/03/21 20:56 Pulse Rate 78 06/04/21 03:26 Respiratory Rate 20 H 06/04/21 03:26 Blood Pressure 160/99 06/04/21 03:26 Pulse Oximetry 99 06/04/21 03:26 MDM - Abdominal Pain 2 MDM Narrative: Medical decision making narrative: Patient came in tonight with complaints of left flank pain. Patient reports the pain comes across her abdomen into the right side. Patient states pains been going on for a few days now. But was worse tonight. Patient states that she has been using hydrocodone to help control the pain but she had ran out. On exam patient appears well. Patient does have some mild abdominal distention. Bowel sounds are present. Skin is warm and dry. No edema is noted in the extremities. Differential diagnosis includes but not limited to renal calculi, urinary tract infection, diverticulitis, musculoskeletal. Laboratory values noted chronic anemia, CMP was unremarkable except for a 2.7 creatinine which is better than her previous. Most of the abnormals we would expect patient on dialysis. CT scan of the abdomen pelvis indicated no significant problem except a new L4 vertebral frac ture. I reviewed this with patient I feel that her pain probably is secondary to the new vertebral fracture. Patient will be continued on hydrocodone for her pain. I will also have case management arrange for follow-up with the spinal aviation technical systems specialist Dr. Ferrera. Lab Data: Labs: Lab Results 06/03/21 06/04/21 06/04/21 Range/Units 23:35 01:22 01:22 WBC 8.3 (4.0-10.0) 10^3/ uL RBC 3.20 L (4.1-5.3) 10^6/u L Hgb 9.6 L (11.5-15.3) g/dL Hct 29.4 L (37.0-47.0) % MCV 91.9 (81-99) fL MCH 30.0 (28.0-34.0) pg MCHC 32.7 (30.0-36.0) g/dL RDW 16.5 H (12.1-15.1) % Plt Count 259 (130-400) 10^3/c mm MPV 10.3 (7.4-10.4) fL Neut % (Auto) 67.9 % Lymph % (Auto) 14.6 % Cottle % (Auto) 9.4 % Eos % (Auto) 6.4 % Baso % (Auto) 1.1 % Neut # (Auto) 5.67 (1.8-7.7) 10^3/u L Lymph # (Auto) 1.2 (0.8-4.8) 10^3/u L Cottle # (Auto) 0.8 (0.2-0.9) 10^3/u L Eos # (Auto) 0.5 (0.0-0.8) 10^3/u L Baso # (Auto) 0.1 (0.0-0.1) 10^3/u L Nucleated RBC % (a uto) 0 % Nucleated RBCs # 0.0 /100WBC Sodium 131 L (136-145) mmol/L Potassium 4.1 (3.5-5.1) mmol/L Chloride 94 L (98-107) mmol/L Carbon Dioxide 27 (22-29) mmol/L Anion Gap 14.1 (5-19) BUN 18 (8-23) mg/dL Creatinine 2.7 H (0.5-0.9) mg/dL GFR Calculation Not Reportable Glucose 122 H (65-115) mg/dL Calculated Osmolal ity 275 L (285-295) mOsm/k g Lactic Acid (0.5-2.2) mmol/L Calcium 8.5 (8.5-10.5) mg/dL Total Bilirubin 0.4 (0.15-1.2) mg/dL AST 10 (0-32) U/L ALT 9 (0-33) U/L Alkaline Phosphata se 83 (35-105) IU/L Total Protein 6.6 (6.6-8.7) g/dL Albumin 3.6 (3.5-5.2) g/dL Globulin 3.0 (1.3-4.6) g/dL Lipase 11 L (13-60) U/L Urine Color Yellow (Yellow) Urine Appearance Clear (CLEAR) Urine pH 9 H (5-7) Ur Specific Gravit y 1.010 (1.005-1.030) Urine Protein 1+ H (Negative) Urine Glucose (UA) 2+ (Normal) Urine Ketones Negative (Negative) Urine Blood 2+ H (Negative) Urine Nitrate Negative (Negative) Urine Bilirubin Neg (Negative) Prot Sulfosalicyli c Acd Positive (Negative) Urine Urobilinogen Norm (Negative) mg/dL Ur Leukocyte Ayesha ase Negative (Negative) Urine RBC 5-10 H (0-2) /hpf Urine WBC 5-10 H (0-5) /hpf Ur Squamous Epith Cells 15-25 H (0-5) /hpf Ur Renal Epithelia l Cell 0-4 /hpf Amorphous Sediment Not Reportable Urine Bacteria Trace (NONE) /hpf Urine Mucus Trace /hpf 06/04/ Range/Units 01:22 WBC (4.0-10.0) 10^3/ uL RBC (4.1-5.3) 10^6/u L Hgb (11.5-15.3) g/dL Hct (37.0-47.0) % MCV (81-99) fL MCH (28.0-34.0) pg MCHC (30.0-36.0) g/dL RDW (12.1-15.1) % Plt Count (130-400) 10^3/c mm MPV (7.4-10.4) fL Neut % (Auto) % Lymph % (Auto) % Cottle % (Auto) % Eos % (Auto) % Baso % (Auto) % Neut # (Auto) (1.8-7.7) 10^3/u L Lymph # (Auto) (0.8-4.8) 10^3/u L Cottle # (Auto) (0.2-0.9) 10^3/u L Eos # (Auto) (0.0-0.8) 10^3/u L Baso # (Auto) (0.0-0.1) 10^3/u L Nucleated RBC % (a uto) % Nucleated RBCs # /100WBC Sodium (136-145) mmol/L Potassium (3.5-5.1) mmol/L Chloride (98-107) mmol/L Carbon Dioxide (22-29) mmol/L Anion Gap (5-19) BUN (8-23) mg/dL Creatinine (0.5-0.9) mg/dL GFR Calculation Glucose (65-115) mg/dL Calculated Osmolal ity (285-295) mOsm/k g Lactic Acid 0.9 (0.5-2.2) mmol/L Calcium (8.5-10.5) mg/dL Total Bilirubin (0.15-1.2) mg/dL AST (0-32) U/L ALT (0-33) U/L Alkaline Phosphata se (35-105) IU/L Total Protein (6.6-8.7) g/dL Albumin (3.5-5.2) g/dL Globulin (1.3-4.6) g/dL Lipase (13-60) U/L Urine Color (Yellow) Urine Appearance (CLEAR) Urine pH (5-7) Ur Specific Gravit y (1.005-1.030) Urine Protein (Negative) Urine Glucose (UA) (Normal) Urine Ketones (Negative) Urine Blood (Negative) Urine Nitrate (Negative) Urine Bilirubin (Negative) Prot Sulfosalicyli c Acd (Negative) Urine Urobilinogen (Negative) mg/dL Ur Leukocyte Ayesha ase (Negative) Urine RBC (0-2) /hpf Urine WBC (0-5) /hpf Ur Squamous Epith Cells (0-5) /hpf Ur Renal Epithelia l Cell /hpf Amorphous Sediment Urine Bacteria (NONE) /hpf Urine Mucus /hpf Discharge Plan Discharge Patient Disposition: Home Clinical Impression: Compression fracture of L4 vertebra Qualifiers: Encounter type: initial encounter Qualified Code(s): S32.040A - Wedge compression fracture of fourth lumbar vertebra, initial encounter for closed fracture Condition: Stable Prescriptions: New hydrocodone-acetaminophen 5-325 mg tablet 1 tab PO Q6H PRN (Reason: pain (scale score 7-10)) Qty: 20 RF: 0 No Action Velphoro 500 mg tablet,chewable 500 mg PO BID RF: 0 RenaPlex-D 800 mcg-12.5 mg -2,000 unit tablet 1 tab PO DAILY RF: 0 amitriptyline 100 mg tablet 100 mg PO DAILY RF: 0 ropinirole 0.5 mg tablet 0.5 mg PO DAILY RF: 0 [employer] Renal 2 Cassius 0.09 gram- 2 kcal/mL liquid PO RF: 0 metolazone 5 mg tablet 5 mg PO DAILY RF: 0 levothyroxine 200 mcg capsule 200 mcg PO DAILY RF: 0 potassium chloride 10 mEq tablet extended release 10 meq PO DAILY RF: 0 (DME) FreeStyle Anita 2 Sensor Kit See Rx Instructions .Route Qty: 3 RF: 3 (DME) FreeStyle Anita 2 Hawkins Misc See Rx Instructions .Route Qty: 1 RF: 0 tamsulosin 0.4 mg capsule See Rx Instructions .ROUTE .COMPLEX Qty: 60 RF: 12 torsemide 100 mg tablet See Rx Instructions .ROUTE .COMPLEX RF: 0 insulin aspart U-100 [Novolog Flexpen U-100 Insulin] 100 unit/mL (3 mL) insulin pen See Rx Instructions .ROUTE .COMPLEX RF: 0 Tresiba FlexTouch U-100 100 unit/mL (3 mL) insulin pen 20 unit SUBCUT .night RF: 0 Discharge Orders: Discharge ED (Routine); Ordered 06/04/21 Ordered By: Delbert Colbert Referrals: Cesar Mendez MD [Primary Care Provider] - Discharge Diet: Usual diet Discharge Activity: Increase activity as tolerated Patient Instructions: Thoracolumbar Fracture (ED), Opioid Safety Activity Restrictions/Additional Instructions: Home and rest. Use medication as directed. Use a walker to help with ambulation. Follow-up with primary care as needed. Case management will contact you in regards for follow-up with our orthopedic spinal specialist for further evaluation and possible treatment. Coding Level of Care Code ED Human Development Professor for Nadegeg Fwd Exam Comprehensive
--- NOTE | 2021-06-04 01:27 | CTR_ITS ---
PROCEDURE INFORMATION: Exam: CT Abdomen And Pelvis Without Contrast Exam date and time: 06/04/2021 1:27 AM Age: 70 years old Clinical indication: Abdominal pain; Flank; Left; Prior surgery; Surgery date: 6+ months; Surgery type: Dialysis cath; Additional info: Left flank pain TECHNIQUE: Imaging protocol: Computed tomography of the abdomen and pelvis without contrast. Radiation optimization: All CT scans at this facility use at least one of these dose optimization techniques: automated exposure control; mA and/or kV adjustment per patient size (includes targeted exams where dose is matched to clinical indication); or iterative reconstruction. COMPARISON: CT abdomen pelvis w con* [id number] 05/01/2020 12:26 PM RADIATION DOSE METRICS: Total DLP (mGy-cm): 1121.35 FINDINGS: Lungs: The lung bases are clear. No effusion Pleural spaces: There is pleural thickening in the left costophrenic angle. Liver: Normal. No mass. Gallbladder and bile ducts: Stable calcifications of the gallbladder wall. Pancreas: Normal. No ductal dilation. Spleen: Normal. No splenomegaly. Adrenal glands: Normal. No mass. Kidneys and ureters: There is a low-attenuation left renal lesion which is too small to accurately characterize by CT, but likely represents a cyst. Stomach and bowel: Mild amount of formed stool in the colon. Appendix: No evidence of appendicitis. Intraperitoneal space: Unremarkable. No free air. No significant fluid collection. Vasculature: Mild atherosclerotic disease of the aorta without aneurysm. Lymph nodes: Unremarkable. No enlarged lymph nodes. Urinary bladder: Unremarkable as visualized. Reproductive: Unremarkable as visualized. Bones/joints: There is compression deformity of the left lateral aspect of the superior endplate of L4. No involvement of the posterior elements. Soft tissues: Small bilateral fat containing inguinal hernias. CT/CT abdomen pelvis wo con [id number] IMPRESSION: 1. Stable calcifications of the gallbladder wall. 2. Mild constipation. 3. Acute compression of the left lateral aspect of the superior endplate of L4, since 05/01/2020. 4. Mild atherosclerotic disease of the aorta without aneurysm. COMMENTS: Consistent with the [employer]'s Incidental Findings Committee white paper (J Am Ramon Radiol 2018): Any incidental renal lesion less than 1 cm or classified as too small to characterize, or any incidental cystic renal lesion characterized as simple-appearing, is likely benign. No follow-up imaging is recommended for these lesions per consensus recommendations based on imaging criteria. Radiation Dose CTDIVOL = (mGy): DLP = 1121.35 (mGy-cm)
[2021-06-04 01:28] LABS: Basophils # 0.1 10^3/uL (0.0-0.1); Basophils % 1.1 %; Eosinophils # 0.5 10^3/uL (0.0-0.8); Eosinophils % 6.4 %; Hematocrit 29.4 % (37.0-47.0); Hemoglobin 9.6 g/dL (11.5-15.3); Lymphocytes # 1.2 10^3/uL (0.8-4.8); Lymphocytes % 14.6 %; Mean Corpuscular HGB Conc 32.7 g/dL (30.0-36.0); Mean Corpuscular Volume 91.9 fL (81-99); Mean Platelet Volume 10.3 fL (7.4-10.4); Monocytes # 0.8 10^3/uL (0.2-0.9); Monocytes % 9.4 %; Neutrophils # 5.67 10^3/uL (1.8-7.7); Neutrophils % 67.9 %; Nucleated Red Blood Cells % 0 %; Platelet Count 259 10^3/cmm (130-400); Red Cell Distribution Width 16.5 % (12.1-15.1); White Blood Count 8.3 10^3/uL (4.0-10.0)
[2021-06-04 01:48] LABS: Lactic Sepsis W/Reflex 0.9 mmol/L (0.5-2.2)
[2021-06-04 01:49] LABS: Alanine Aminotransferase 9 U/L (0-33); Albumin Level 3.6 g/dL (3.5-5.2); Alkaline Phosphatase 83 IU/L (35-105); Anion Gap 14.1 (5-19); Aspartate Amino Transferase 10 U/L (0-32); Blood Urea Nitrogen 18 mg/dL (8-23); Calcium 8.5 mg/dL (8.5-10.5); Carbon Dioxide 27 mmol/L (22-29); Chloride 94 mmol/L (98-107); Glucose 122 mg/dL (65-115); Lipase 11 U/L (13-60); Osmolality Calculated 275 mOsm/kg (285-295); Potassium 4.1 mmol/L (3.5-5.1); Sodium 131 mmol/L (136-145); Total Bilirubin 0.4 mg/dL (0.15-1.2); Total Protein 6.6 g/dL (6.6-8.7)
[2021-06-04] MEDS: ondansetron 2 mg/ML SDV 2 mL 4 MG IVP (03:20)
[2021-06-04] MEDS: morphine 4 mg/mL SDV 1 mL 2 MG IVP (03:21)
[2021-06-04 03:26] VITALS: BP 160/99; PULSE 78; RESP 20; O2SAT 99
[2021-06-04 04:39] VITALS: BP 140/85; PULSE 76; RESP 18; O2SAT 94
--- NOTE | 2021-06-04 09:38 | DCPLANNER ---
assistant store manager had message to schedule a follow up appointment for patient with ortho for a follow up for L4 vertabral fracture. assistant store manager called the ortho clinic, spoke with Yolie, gave clinic patients information. assistant store manager was told that patients information would be printed and reviewed. Clinic will call patient with appointment information.
--- NOTE | 2021-06-05 09:07 | DCPLANNER ---
Patient has a follow up appointment scheduled for , May at 8:[address] Ferrera at [facility]. Clinic will call patient with appointment information.
--- NOTE | 2021-06-28 13:20 | DCPLANNER ---
Patient had a follow up appointment scheduled for 06.06.[address] Ferrera at [facility] - patient did attend appointment.
== END 2021-06-04 04:40 | disposition home or self-care (01) ==
PROVIDERS: Emergency Provider Nurse Practitioner Family; PCP Family Medicine
DX: S32.040A Wedge compression fracture of fourth lumbar vertebra, initial encounter for closed fracture (principal); I12.9 Hypertensive chronic kidney disease with stage 1 through stage 4 chronic kidney disease, or unspecified chronic kidney disease; N18.9 Chronic kidney disease, unspecified; E78.5 Hyperlipidemia, unspecified; E03.9 Hypothyroidism, unspecified; E11.22 Type 2 diabetes mellitus with diabetic chronic kidney disease; Z79.4 Long term (current) use of insulin; Z99.2 Dependence on renal dialysis; X58.XXXA Exposure to other specified factors, initial encounter
CPT/HCPCS: 74176; 80053; 81001; 83605; 83690; 85025; 87040; 96374; 96375; 99283; J2270; J2405

== ENCOUNTER → 2021-06-06 08:42 | Outpatient (BNVA) | payer MEDICARE, OTHER, SELFPAY | PROVIDERS: PCP Family Medicine; Referring Provider Nurse Practitioner Family; Visit Provider Orthopaedic Surgery | DX: S32.040A Wedge compression fracture of fourth lumbar vertebra, initial encounter for closed fracture (principal); M43.10 Spondylolisthesis, site unspecified | CPT/HCPCS: 72100 ==

== ENCOUNTER → 2021-06-25 13:32 | Outpatient (BNVA) | payer MEDICARE, OTHER, SELFPAY | PROVIDERS: PCP Family Medicine; Visit Provider Specialist | DX: R26.9 Unspecified abnormalities of gait and mobility (principal); D32.0 Benign neoplasm of cerebral meninges; H81.10 Benign paroxysmal vertigo, unspecified ear; E11.42 Type 2 diabetes mellitus with diabetic polyneuropathy; Z79.4 Long term (current) use of insulin | CPT/HCPCS: 99214 ==

== ENCOUNTER 2021-06-26 04:46 | Emergency (ER) | payer MEDICARE, OTHER, SELFPAY ==
[2021-06-26 04:59] VITALS: BP 225/89; PULSE 84; RESP 16; TEMP 36.7; O2SAT 97; BMI 27.4
--- NOTE | 2021-06-26 05:04 | ED_ITS ---
Documented by User: Luis Gibson MD 06/26/21 05:07 HPI - General Adult General: Chief complaint: General Medical Stated complaint: Gall Bladder\Vomiting\Fractured Vertibr. Time Seen by Provider: 06/26/21 04:59 Source: patient Mode of arrival: ambulatory Limitations: no limitations History of Present Illness: HPI narrative: 71-year-old female states she been having abdominal pain off and on over the last 2 weeks. States she is a history of gallstones and that tonight her pain worsened. States the pain is sharp in nature in her right upper quadrant and rates an 8 out of 10. She denies any radiation of her pain. States she is also having back pain but did have a lumbar compression fracture remotely and has a back brace and is followed Dr. Laney burris for that. States abdominal pain is new. Denies any diarrhea. States it is worse with palpation of movement improved with rest. Associated symptoms: Deny chest pain, dyspnea, headache(s) or rash Review of Systems Const: Denies: fever(s), chills, body aches or change in appetite Eyes: Denies: blurry vision or eye discomfort ENMT: Denies: throat pain or dental pain Card: Denies: chest pain Resp: Denies: dyspnea GI: Reports: abdominal pain : Denies: dysuria Musc: Denies: neck pain or back pain Skin/Breast: Denies: rash Neuro: Denies: headache(s) Psych: Denies: depression Dave/Lymph: Denies: easy bruising All/Imm: Denies: urticaria PFSH ED PFSH: Medical History Cataract Chronic kidney disease (CKD) Closed fracture of left proximal humerus Hemodialysis patient History of peritoneal dialysis HTN (hypertension) Hx of breast cancer Hydronephrosis Hyperlipidemia Hypothyroidism Incomplete bladder emptying Kidney stones Microcytic anemia Obstructive pyelonephritis Type 2 diabetes mellitus Ureteral obstruction, right HX OF RIGHT URETEROSCOPY WITH STENT PLACEMENT Surgical History H/O knee surgery H/O skin graft H/O tubal ligation History of kidney surgery History of lumpectomy of left breast History of surgery Right-sided pleurodesis and Pleurx catheter placement History of surgery on arm Hx of cataract surgery Hx of tonsillectomy S/P dialysis catheter insertion Peritoneal dialysis catheter placement x3 according to patient, revisions had to be performed in [facility] at an outside facility Hemodialysis catheter placement S/P hemodialysis catheter insertion Right IJ: Removed Family History Mother Stroke Father Stroke Social History Smoking and tobacco status: never smoked Alcohol intake: never Lives independently: Yes Household members: spouse Marital status: Current occupational status: employed History of recent travel: No Current gender identity: Female Physical Exam Const: COMMON NORMALS: no acute distress, patient oriented x3 and healthy appearing HENMT: COMMON NORMALS: normocephalic and atraumatic HEAD & SCALP: normocephalic and atraumatic Eye: COMMON NORMALS: Equal, round and reactive pupils present and EOMs intact bilaterally PUPIL: Yes Equal, round and reactive pupils present Neck/C-Spine: COMMON NORMALS: full ROM and supple Chest: COMMONS NORMALS: normal inspection of the chest and normal palpation of entire chest wall Resp: COMMON NORMALS: normal respiratory effort, No retractions, No use of accessory muscles and clear to auscultation bilaterally AUSCULTATION: clear to auscultation bilaterally Cardio: COMMON NORMALS: regular rate, regular rhythm and No murmurs present (Cardio) RATE: regular rate RHYTHM: regular rhythm GI: COMMON NORMALS: Normal to inspection, nondistended, normoactive bowel sounds present, Soft to palpation and no masses PALPATION: Yes Soft to palpation and Yes Tenderness to palpation present (GI) Details: RUQ Extremity: COMMON NORMALS: normal to inspection and full ROM Neuro: COMMON NORMALS: patient oriented x3, moves all extremities and no focal motor deficits Psych: COMMON NORMALS: mental status grossly normal, Normal thought process present and cooperative THOUGHT PROCESS: Normal thought process present Skin: COMMON NORMALS: no rashes or lesions noted and no wounds GENERAL SKIN EXAM: no rashes or lesions noted Course Vital Signs: Vital signs: Vital Signs Temperature 97.6 F 06/26/21 05:30 Pulse Rate 75 06/26/21 09:00 Respiratory Rate 19 H 06/26/21 09:00 Blood Pressure 179/99 06/26/21 09:00 Pulse Oximetry 96 06/26/21 09:00 [facility] - General Adult Lab Data: Labs: Lab Results 06/26/21 06/26/21 Range/Units 05:15 05:15 WBC 13.0 H (4.0-10.0) 10^3/ uL RBC 4.35 (4.1-5.3) 10^6/u L Hgb 12.5 (11.5-15.3) g/dL Hct 39.0 (37.0-47.0) % MCV 89.7 (81-99) fl MCH 28.7 (28.0-34.0) pg MCHC 32.1 (30.0-36.0) g/dL RDW 17.9 H (12.1-15.1) % Plt Count 455 H (130-400) 10^3/c mm MPV 10.6 H (7.4-10.4) fL Neut % (Auto) 80.6 % Lymph % (Auto) 9.0 % Alexander % (Auto) 6.0 % Eos % (Auto) 1.5 % Baso % (Auto) 0.7 % Neut # (Auto) 10.47 H (1.8-7.7) 10^3/u L Lymph # (Auto) 1.2 (0.8-4.8) 10^3/u L Alexander # (Auto) 0.8 (0.2-0.9) 10^3/u L Eos # (Auto) 0.2 (0.0-0.8) 10^3/u L Baso # (Auto) 0.1 (0.0-0.1) 10^3/u L Nucleated RBC % (a uto) 0.2 % Nucleated RBCs # 0.0 /100WBC Sodium 130 L (136-145) mmol/L Potassium 3.8 (3.5-5.1) mmol/L Chloride 90 L (98-107) mmol/L Carbon Dioxide 24 (22-29) mmol/L Anion Gap 19.8 H (5-19) BUN 38 H (8-23) mg/dL Creatinine 3.2 H (0.5-0.9) mg/dL GFR Calculation Not Reportable Glucose 215 H (65-115) mg/dL Calculated Osmolal ity 286 (285-295) mOsm/k g Calcium 9.9 (8.5-10.5) mg/dL Total Bilirubin 0.7 (0.15-1.2) mg/dL AST 14 (0-32) U/L ALT 14 (0-33) U/L Alkaline Phosphata se 117 H (35-105) IU/L Total Protein 8.2 (6.6-8.7) g/dL Albumin 4.2 (3.5-5.2) g/dL Globulin 4.0 (1.3-4.6) g/dL Lipase 15 (13-60) U/L Discharge Plan Discharge Patient Disposition: Home Clinical Impression: Abdominal pain, End stage renal disease, Diabetes mellitus, Cholelithiases Condition: Stable Prescriptions: New hydrocodone-acetaminophen 5-325 mg tablet 1 tab PO Q6H PRN (Reason: pain) Qty: 25 RF: 0 Zofran 4 mg tablet 4 mg PO Q6H PRN (Reason: nausea and vomiting) Qty: 20 RF: 0 pantoprazole 40 mg tablet,delayed release (DR/EC) 40 mg PO QAM 56 Days Qty: 56 RF: 0 No Action RenaPlex-D 800 mcg-12.5 mg -2,000 unit tablet 1 tab PO DAILY RF: 0 amitriptyline 100 mg tablet 100 mg PO DAILY RF: 0 ropinirole 0.5 mg tablet 0.5 mg PO DAILY RF: 0 NovaSource Renal 2 Cassius 0.09 gram- 2 kcal/mL liquid PO RF: 0 metolazone 5 mg tablet 5 mg PO DAILY RF: 0 levothyroxine 200 mcg capsule 200 mcg PO DAILY RF: 0 potassium chloride 10 mEq tablet extended release 10 meq PO DAILY RF: 0 (DME) corset back brace See Rx Instructions .Route .MEDSUPPLY Qty: 1 RF: 0 hydrocodone-acetaminophen 5-325 mg tablet 1 tab PO Q6H PRN (Reason: pain (scale score 7-10)) 7 Days Qty: 40 RF: 0 (DME) FreeStyle Anita 2 Sensor Kit See Rx Instructions .Route Qty: 3 RF: 3 (DME) FreeStyle Anita 2 [place] Misc See Rx Instructions .Route Qty: 1 RF: 0 tamsulosin 0.4 mg capsule See Rx Instructions .ROUTE .COMPLEX Qty: 60 RF: 12 torsemide 100 mg tablet See Rx Instructions .ROUTE .COMPLEX RF: 0 Tresiba FlexTouch U-100 100 unit/mL (3 mL) insulin pen 20 unit SUBCUT .night RF: 0 insulin aspart U-100 [Novolog Flexpen U-100 Insulin] 100 unit/mL (3 mL) insulin pen See Rx Instructions .ROUTE .COMPLEX RF: 0 Discharge Orders: Discharge ED (Routine); Ordered 06/26/21 Ordered By: Florian Gerber Referrals: Cesar Mendez MD [Primary Care Provider] - Discharge Diet: As Directed Discharge Activity: Increase activity as tolerated Patient Instructions: Abdominal Pain (ED), Opioid Safety Activity Restrictions/Additional Instructions: Case management make arrangements for you to have a HIDA scan. After this is completed you should follow-up with Dr. Mullins. Sign Out Sign Out Data: Patient Sign Out occurred on 06/26/21 at 06:00. Patient's care was discussed, and care was transferred from to Florian Gerber DO. Coding Level of Care Code ED Laboratory Specialist for Chg Fwd Exam Comprehensive Documented by User: Florian Gerber DO 06/26/21 10:14 HPI - General Adult General: Chief complaint: General Medical Stated complaint: Gall Bladder\Vomiting\Fractured Vertibr. Time Seen by Provider: 06/26/21 04:59 PFSH ED PFSH: Medical History Cataract Chronic kidney disease (CKD) Closed fracture of left proximal humerus Hemodialysis patient History of peritoneal dialysis HTN (hypertension) Hx of breast cancer Hydronephrosis Hyperlipidemia Hypothyroidism Incomplete bladder emptying Kidney stones Microcytic anemia Obstructive pyelonephritis Type 2 diabetes mellitus Ureteral obstruction, right HX OF RIGHT URETEROSCOPY WITH STENT PLACEMENT Surgical History H/O knee surgery H/O skin graft H/O tubal ligation History of kidney surgery History of lumpectomy of left breast History of surgery Right-sided pleurodesis and Pleurx catheter placement History of surgery on arm Hx of cataract surgery Hx of tonsillectomy S/P dialysis catheter insertion Peritoneal dialysis catheter placement x3 according to patient, revisions had to be performed in [facility] at an outside facility Hemodialysis catheter placement S/P hemodialysis catheter insertion Right IJ: Removed Family History Mother Stroke Father Stroke Social History Smoking and tobacco status: never smoked Alcohol intake: never Lives independently: Yes Household members: spouse Marital status: Current occupational status: employed History of recent travel: No Current gender identity: Female Course Vital Signs: Vital signs: Vital Signs Temperature 97.6 F 06/26/21 05:30 Pulse Rate 75 06/26/21 09:00 Respiratory Rate 19 H 06/26/21 09:00 Blood Pressure 179/99 06/26/21 09:00 Pulse Oximetry 96 06/26/21 09:00 MDM - General Adult MDM Narrative: Medical decision making narrative: Care assumed a change of shift. Reviewed imaging and labs on the chart discussed with the patient. No evidence of acute cholecystitis at this time. Ultrasound shows cholelithiasis with some calcification of the gallbladder wall but no thickening no dilation of the common bile duct. She has been seen in the past by Dr. Owen for this problem. We'll get her set up for a HIDA scan and have her follow-up with echo after that. We also gave her hydrocodone and Zofran to use as needed simple carbohydrate diet return if is worsening symptoms. Lab Data: Labs: Lab Results 06/26/21 06/26/21 Range/Units 05:15 05:15 WBC 13.0 H (4.0-10.0) 10^3/ uL RBC 4.35 (4.1-5.3) 10^6/u L Hgb 12.5 (11.5-15.3) g/dL Hct 39.0 (37.0-47.0) % MCV 89.7 (81-99) fl MCH 28.7 (28.0-34.0) pg MCHC 32.1 (30.0-36.0) g/dL RDW 17.9 H (12.1-15.1) % Plt Count 455 H (130-400) 10^3/c mm MPV 10.6 H (7.4-10.4) fL Neut % (Auto) 80.6 % Lymph % (Auto) 9.0 % Alexander % (Auto) 6.0 % Eos % (Auto) 1.5 % Baso % (Auto) 0.7 % Neut # (Auto) 10.47 H (1.8-7.7) 10^3/u L Lymph # (Auto) 1.2 (0.8-4.8) 10^3/u L Alexander # (Auto) 0.8 (0.2-0.9) 10^3/u L Eos # (Auto) 0.2 (0.0-0.8) 10^3/u L Baso # (Auto) 0.1 (0.0-0.1) 10^3/u L Nucleated RBC % (a uto) 0.2 % Nucleated RBCs # 0.0 /100WBC Sodium 130 L (136-145) mmol/L Potassium 3.8 (3.5-5.1) mmol/L Chloride 90 L (98-107) mmol/L Carbon Dioxide 24 (22-29) mmol/L Anion Gap 19.8 H (5-19) BUN 38 H (8-23) mg/dL Creatinine 3.2 H (0.5-0.9) mg/dL GFR Calculation Not Reportable Glucose 215 H (65-115) mg/dL Calculated Osmolal ity 286 (285-295) mOsm/k g Calcium 9.9 (8.5-10.5) mg/dL Total Bilirubin 0.7 (0.15-1.2) mg/dL AST 14 (0-32) U/L ALT 14 (0-33) U/L Alkaline Phosphata se 117 H (35-105) IU/L Total Protein 8.2 (6.6-8.7) g/dL Albumin 4.2 (3.5-5.2) g/dL Globulin 4.0 (1.3-4.6) g/dL Lipase 15 (13-60) U/L Discharge Plan Discharge Patient Disposition: Home Clinical Impression: Abdominal pain, End stage renal disease, Diabetes mellitus, Cholelithiases Condition: Stable Prescriptions: New hydrocodone-acetaminophen 5-325 mg tablet 1 tab PO Q6H PRN (Reason: pain) Qty: 25 RF: 0 Zofran 4 mg tablet 4 mg PO Q6H PRN (Reason: nausea and vomiting) Qty: 20 RF: 0 pantoprazole 40 mg tablet,delayed release (DR/EC) 40 mg PO QAM 56 Days Qty: 56 RF: 0 No Action RenaPlex-D 800 mcg-12.5 mg -2,000 unit tablet 1 tab PO DAILY RF: 0 amitriptyline 100 mg tablet 100 mg PO DAILY RF: 0 ropinirole 0.5 mg tablet 0.5 mg PO DAILY RF: 0 NovaSource Renal 2 Cassius 0.09 gram- 2 kcal/mL liquid PO RF: 0 metolazone 5 mg tablet 5 mg PO DAILY RF: 0 levothyroxine 200 mcg capsule 200 mcg PO DAILY RF: 0 potassium chloride 10 mEq tablet extended release 10 meq PO DAILY RF: 0 (DME) corset back brace See Rx Instructions .Route .MEDSUPPLY Qty: 1 RF: 0 hydrocodone-acetaminophen 5-325 mg tablet 1 tab PO Q6H PRN (Reason: pain (scale score 7-10)) 7 Days Qty: 40 RF: 0 (DME) FreeStyle Anita 2 Sensor Kit See Rx Instructions .Route Qty: 3 RF: 3 (DME) FreeStyle Anita 2 [place] Misc See Rx Instructions .Route Qty: 1 RF: 0 tamsulosin 0.4 mg capsule See Rx Instructions .ROUTE .COMPLEX Qty: 60 RF: 12 torsemide 100 mg tablet See Rx Instructions .ROUTE .COMPLEX RF: 0 Tresiba FlexTouch U-100 100 unit/mL (3 mL) insulin pen 20 unit SUBCUT .night RF: 0 insulin aspart U-100 [Novolog Flexpen U-100 Insulin] 100 unit/mL (3 mL) insulin pen See Rx Instructions .ROUTE .COMPLEX RF: 0 Discharge Orders: Discharge ED (Routine); Ordered 06/26/21 Ordered By: Florian Gerber Referrals: Cesar Mendez MD [Primary Care Provider] - Discharge Diet: As Directed Discharge Activity: Increase activity as tolerated Patient Instructions: Abdominal Pain (ED), Opioid Safety Activity Restrictions/Additional Instructions: Case management make arrangements for you to have a HIDA scan. After this is completed you should follow-up with Dr. Mullins. Sign Out Sign Out Data: Patient Sign Out occurred on 06/26/21 at 06:00. Patient's care was discussed, and care was transferred from to Florian Gerber DO. Coding Level of Care Code ED Laboratory Specialist for Chg Fwd Exam Comprehensive
--- NOTE | 2021-06-26 05:05 | XRR_ITS ---
PROCEDURE INFORMATION: Exam: XR Chest Exam date and time: 06/26/2021 5:05 AM Age: 71 years old Clinical indication: Prior surgery; Surgery type: Dialysis cath. Chest port. ; Patient HX: Epigastric pain. History of breast cancer. TECHNIQUE: Imaging protocol: XR of the chest. Views: 1 view. COMPARISON: CR XR chest 1V portable [id number] 05/01/2020 10:13 AM FINDINGS: Tubes, catheters and devices: Right central catheter tip terminates in the right atrium. Left central catheter tip projects over the caval atrial junction. Right axillary stent noted. Lungs: Left basilar atelectasis or other infiltrate. Pleural spaces: Unremarkable. No pleural effusion. No pneumothorax. Heart/Mediastinum: No cardiomegaly. Bones/joints: No acute fracture. Soft tissues: Left axillary clips noted. XR/XR chest 1V portable [id number] IMPRESSION: Left basilar atelectasis or other infiltrate.
--- NOTE | 2021-06-26 05:23 | US_ITS ---
WS: [id number] RIGHT UPPER QUADRANT ULTRASOUND HISTORY: Abdominal pain. COMPARISON: 05/01/2020 Liver: 16.5 cm in length. Mildly enlarged liver with changes of hepatic steatosis. Surface of the joleen er is nodular suggesting cirrhosis. Gallbladder: Large amount shadowing from the gallbladder fossa. On a recent CT heavy calcification wa s noted within the wall of the gallbladder. There is heavy wall calcification is obscuring the lumina l contents. No wall thickening appreciated. CBD: 0.7 cm Pancreas: Head and tail are poorly visualized. Right kidney: 8.4 cm in length. Normal size and echogenicity. No hydronephrosis or mass. Small cortic al cyst measures 8 mm inferior pole. Aorta and IVC: Unremarkable abdominal aorta and IVC. No ascites. US/US gall bladder [id number] IMPRESSION: 1. Shadowing from the gallbladder fossa. On a prior CT gallbladder wall calcif ications were identified. Cannot exclude intraluminal calcifications due to the extensive shadowing from the wall. 2. Top normal common bile duct. 3. Mild hepatic steatosis and hepatomegaly with cirrhosis.
[2021-06-26] MEDS: ondansetron 2 mg/ML SDV 2 mL 4 MG IVP (05:25)
[2021-06-26 05:26] LABS: Basophils # 0.1 10^3/uL (0.0-0.1); Basophils % 0.7 %; Eosinophils # 0.2 10^3/uL (0.0-0.8); Eosinophils % 1.5 %; Hemoglobin 12.5 g/dL (11.5-15.3); Lymphocytes # 1.2 10^3/uL (0.8-4.8); Mean Corpuscular HGB Conc 32.1 g/dL (30.0-36.0); Mean Corpuscular Hemoglobin 28.7 pg (28.0-34.0); Mean Corpuscular Volume 89.7 fl (81-99); Mean Platelet Volume 10.6 fL (7.4-10.4); Monocytes # 0.8 10^3/uL (0.2-0.9); Neutrophils # 10.47 10^3/uL (1.8-7.7); Neutrophils % 80.6 %; Nucleated Red Blood Cells % 0.2 %; Platelet Count 455 10^3/cmm (130-400); Red Blood Count 4.35 10^6/uL (4.1-5.3); Red Cell Distribution Width 17.9 % (12.1-15.1)
[2021-06-26 05:30] VITALS: BP 105/64; PULSE 75; RESP 20; TEMP 36.4; O2SAT 100
[2021-06-26 05:44] VITALS: BP 185/66; PULSE 72; RESP 18; O2SAT 97
[2021-06-26 05:44] LABS: Alanine Aminotransferase 14 U/L (0-33); Albumin Level 4.2 g/dL (3.5-5.2); Alkaline Phosphatase 117 IU/L (35-105); Anion Gap 19.8 (5-19); Aspartate Amino Transferase 14 U/L (0-32); Blood Urea Nitrogen 38 mg/dL (8-23); Calcium 9.9 mg/dL (8.5-10.5); Carbon Dioxide 24 mmol/L (22-29); Chloride 90 mmol/L (98-107); Glucose 215 mg/dL (65-115); Lipase 15 U/L (13-60); Osmolality Calculated 286 mOsm/kg (285-295); Potassium 3.8 mmol/L (3.5-5.1); Sodium 130 mmol/L (136-145); Total Bilirubin 0.7 mg/dL (0.15-1.2); Total Protein 8.2 g/dL (6.6-8.7)
[2021-06-26 06:41] VITALS: BP 181/87; PULSE 73; RESP 18; O2SAT 98
[2021-06-26] MEDS: promethazine 25 mg/mL SDV 1 mL 12.5 MG IM (08:48)
[2021-06-26] MEDS: HYDROmorphone 1 mg/mL INJ 1 mL 0.5 MG IVP (08:48)
[2021-06-26 09:00] VITALS: BP 179/99; PULSE 75; RESP 19; O2SAT 96
--- NOTE | 2021-06-26 10:21 | DCPLANNER ---
Addendum entered by Sarah Govea 07/02/21 09:52: Patient has a HIDA scan scheduled for Friday, July 30, 2021 at 10:00. front office manager called the office of Dr. Mullins, spoke with Faviola, and let her know when the HIDA scan was scheduled for. Clinic will call patient with appointment information. Original Note: front office manager had message to schedule an out patient HIDA scan for patient. front office manager faxed signed order to centralized scheduling, who will call patient with appointment information. front office manager also had message to schedule a follow up appointment for patient with Dr. Mullins after the HIDA scan, manager of case management faxed patients information to the office of Dr. Mullins. front office manager will call the office of Dr. Mullins and schedule a follow up appointment after the HIDA scan.
--- NOTE | 2021-07-01 15:22 | DCPLANNER ---
Patient has a follow up appointment scheduled for Friday, July 30, 2021 at 10:00 for a HIDA scan. Centralized scheduling will call patient with appointment information.
--- NOTE | 2021-08-01 09:12 | DCPLANNER ---
Patient had an appointment for a HIDA scan scheduled - appointment cancelled.
== END 2021-06-26 09:22 | disposition home or self-care (01) ==
PROVIDERS: Emergency Medicine; Emergency Provider Family Medicine; PCP Family Medicine
DX: K80.20 Calculus of gallbladder without cholecystitis without obstruction (principal); E11.22 Type 2 diabetes mellitus with diabetic chronic kidney disease; I12.0 Hypertensive chronic kidney disease with stage 5 chronic kidney disease or end stage renal disease; N18.6 End stage renal disease; Z79.4 Long term (current) use of insulin; Z85.3 Personal history of malignant neoplasm of breast; E78.5 Hyperlipidemia, unspecified
CPT/HCPCS: 71045; 76705; 80053; 83690; 85025; 96372; 96374; 96375; 99284; J1170; J2405; J2550

== ENCOUNTER → 2021-07-09 08:19 | Outpatient (BNVA) | payer MEDICARE, OTHER, SELFPAY | PROVIDERS: PCP Family Medicine; Visit Provider Orthopaedic Surgery | DX: S32.040A Wedge compression fracture of fourth lumbar vertebra, initial encounter for closed fracture (principal); X58.XXXA Exposure to other specified factors, initial encounter | CPT/HCPCS: 72100 ==

== ENCOUNTER 2021-07-26 09:28 | Emergency (ER) | payer MEDICARE, OTHER, SELFPAY ==
[2021-07-26] VITALS (11 sets, daily range): BP systolic 159–220; BP diastolic 66–90; PULSE 64–85; RESP 16–20; TEMP 36.2–36.9; O2SAT 96–98; BMI 29.2
--- NOTE | 2021-07-26 09:47 | ED_ITS ---
HPI - General Adult General: Chief complaint: General Medical Stated complaint: fall, abd pain-not related to the fall Time Seen by Provider: 07/26/21 09:46 History of Present Illness: HPI narrative: Ms. Saab is a 71-year-old lady with significant past medical history of diabetes, stroke, hypertension, hyperlipidemia, end-stage renal disease on dialysis who presents emergency department due to pain. She has had some pain in her right upper quadrant and h as known gallbladder disease however now has generalized abdominal pain which started yesterday. Additionally she had a mechanical fall yesterday and landed on the left side of her face and chest. She earlier today she developed chest pressure in the middle of her chest without radiation. She thought initially that this was due to the fall however decided to come get checked out. Over the all of the intensity symptoms is moderate. The course has persisted. No other new exacerbating or alleviating factors identified. Review of Systems 2 General: Reports: 10 or more systems reviewed and unremarkable except in HPI and below Narrative: CONSTITUTIONAL: denies fever, fatigue, weakness EYES - denies pain, denies loss of vision EARS - denies ear issues. NOSE - denies congestion or rhinorrhea. THROAT - denies sore throat or difficulty swallowing. CARDIOVASCULAR - denies chest pain and palpitations RESPIRATORY - denies shortness of breath and cough GASTROINTESTINAL -see HPI GENITOURINARY - denies dysuria or urinary frequency MUSCULOSKELETAL-see HPI SKIN - denies rashes or new changed skin lesions NEUROLOGIC - denies focal weakness or sensory changes HEMATOLOGIC/LYMPHATIC - denies easy bruising or lymphadenopathy. [facility] ED PFSH: Medical History Cataract Chronic kidney disease (CKD) Closed fracture of left proximal humerus Hemodialysis patient History of peritoneal dialysis HTN (hypertension) Hx of breast cancer Hydronephrosis Hyperlipidemia Hypothyroidism Incomplete bladder emptying Kidney stones Microcytic anemia Obstructive pyelonephritis Type 2 diabetes mellitus Ureteral obstruction, right HX OF RIGHT URETEROSCOPY WITH STENT PLACEMENT Surgical History H/O knee surgery H/O skin graft H/O tubal ligation History of kidney surgery History of lumpectomy of left breast History of surgery Right-sided pleurodesis and Pleurx catheter placement History of surgery on arm Hx of cataract surgery Hx of tonsillectomy S/P dialysis catheter insertion Peritoneal dialysis catheter placement x3 according to patient, revisions had to be performed in [facility] at an outside facility Hemodialysis catheter placement S/P hemodialysis catheter insertion Right IJ: Removed Family History Mother Stroke Father Stroke Social History Smoking and tobacco status: never smoked Alcohol intake: never Lives independently: Yes Household members: spouse Marital status: Current occupational status: employed History of recent travel: No Current gender identity: Female Physical Exam Narrative: EXAM NARRATIVE: GENERAL/CONSTITUTIONAL -chronically ill-appearing. No acute distress. Eyes - PERRL, left lateral eye subconjunctival hemorrhage which the patient reports is from a injection ENMT - Atraumatic external nose and ears. Moist mucous membranes NECK - supple. trachea midline CARDIOVASCULAR - regular rate and rhythm. Peripheral pulses 2+ and equal RESPIRATORY -clear to auscultation bilaterally. No retractions or accessory muscle use. ABDOMEN/GI -mild to moderately generalized tender. Nondistended. No tenderness to percussion or evidence of peritonitis MSK - Extremities without obvious deformity or tenderness to palpation SKIN - Warm, Dry. Small contusion on face. NEURO - alert and appropriately oriented. strength and sensation intact. Moves all extremities equally. PSYCH - Appropriate mood and affect Course ED course: - Patient was seen and evaluated by me at bedside - Patient placed on cardiac monitors, IV access obtained - Initial evaluation notable for chronically ill appearance, no acute distress. -Symptom treatment ordered - Labs notable for no significant hematologic abnormality. No emergent indication for dialysis. Delta troponin negative, BNP is somewhat elevated though patient not requiring additional supplemental oxygen. Urinalysis not concerning for urinary tract infection. - Imaging notable for Negative head CT. No acute abnormality to explain patient's anterior abdominal pain. Abnormality of the thoracic spine, additional dedicated imaging ordered which notes compression fractures. - Upon serial reexamination after treatment the patient was somewhat improved and back to her baseline pain - Based on patient history, evaluation, labs, and imaging as interpreted the m ost likely cause of the patient's condition is thoracic compression fractures - Patient will follow up with Dr. Ferrera of orthopedic spine surgery. - The results of ED evaluation were discussed with the patient including prescriptions and/or symptomatic cares (if applicable) including appropriate and responsible use, followup plan, and return precautions. The patient verbalized understanding and felt safe for discharge. - Patient discharged in satisfactory condition. Vital Signs: Vital signs: Vital Signs Temperature 98 F 07/26/21 14:19 Pulse Rate 77 07/26/21 14:19 Respiratory Rate 20 H 07/26/21 14:19 Blood Pressure 195/75 07/26/21 14:19 Pulse Oximetry 97 07/26/21 14:19 MDM - General Adult Medical Records: Attestation: I reviewed the patient's medical records. Lab Data: Attestation: I reviewed the patient's lab results. Labs: Lab Results 07/26/21 07/26/21 07/26/21 Range/Units 10:49 10:49 10:49 WBC 7.1 (4.0-10.0) 10^3/ uL RBC 4.33 (4.1-5.3) 10^6/u L Hgb 12.4 (11.5-15.3) g/dL Hct 39.9 (37.0-47.0) % MCV 92.1 (81-99) fl MCH 28.6 (28.0-34.0) pg MCHC 31.1 (30.0-36.0) g/dL RDW 17.2 H (12.1-15.1) % Plt Count 253 (130-400) 10^3/c mm MPV 11.1 H (7.4-10.4) fL Neut % (Auto) 79.3 % Lymph % (Auto) 12.1 % [place] % (Auto) 6.2 % Eos % (Auto) 1.3 % Baso % (Auto) 0.8 % Neut # (Auto) 5.64 (1.8-7.7) 10^3/u L Lymph # (Auto) 0.9 (0.8-4.8) 10^3/u L [place] # (Auto) 0.4 (0.2-0.9) 10^3/u L Eos # (Auto) 0.1 (0.0-0.8) 10^3/u L Baso # (Auto) 0.1 (0.0-0.1) 10^3/u L Nucleated RBC % (a uto) 0 % Nucleated RBCs # 0.0 /100WBC Sodium 134 L (136-145) mmol/L Potassium 3.6 (3.5-5.1) mmol/L Chloride 97 L (98-107) mmol/L Carbon Dioxide 26 (22-29) mmol/L Anion Gap 14.6 (5-19) BUN 24 H (8-23) mg/dL Creatinine 2.9 H (0.5-0.9) mg/dL GFR Calculation Not Reportable Glucose 157 H (65-115) mg/dL Calculated Osmolal ity 285 (285-295) mOsm/k g Calcium 8.6 (8.5-10.5) mg/dL Total Bilirubin 0.4 (0.15-1.2) mg/dL AST 12 (0-32) U/L ALT 12 (0-33) U/L Alkaline Phosphata se 115 H (35-105) IU/L Troponin T Baselin e 64 H (0-10) ng/L Troponin T 120 Min mariana (0-10) ng/L Delta Troponin T (0-10) ABS# NT-Pro-B Natriuret Pep 3478 H (0-125) pg/mL Total Protein 6.2 L (6.6-8.7) g/dL Albumin 3.7 (3.5-5.2) g/dL Globulin 2.5 (1.3-4.6) g/dL Lipase 10 L (13-60) U/L TSH 60.71 H (0.27-4.20) uIU/ mL Free T4 (0.82-1.77) ng/d L Urine Color (Yellow) Urine Appearance (CLEAR) Urine pH (5-7) Ur Specific Gravit y (1.005-1.030) Urine Protein (Negative) Urine Glucose (UA) (Normal) Urine Ketones (Negative) Urine Blood (Negative) Urine Nitrate (Negative) Urine Bilirubin (Negative) Prot Sulfosalicyli c Acd (Negative) Urine Urobilinogen (Negative) mg/dL Ur Leukocyte Ayesha ase (Negative) Urine RBC (0-2) /hpf Urine WBC (0-5) /hpf Ur Squamous Epith Cells (0-5) /hpf Amorphous Sediment Urine Bacteria (NONE) /hpf Urine Mucus /hpf 07/26/21 07/26/21 07/26/21 Range/Units 10:49 10:56 12:50 WBC (4.0-10.0) 10^3/ uL RBC (4.1-5.3) 10^6/u L Hgb (11.5-15.3) g/dL Hct (37.0-47.0) % MCV (81-99) fl MCH (28.0-34.0) pg MCHC (30.0-36.0) g/dL RDW (12.1-15.1) % Plt Count (130-400) 10^3/c mm MPV (7.4-10.4) fL Neut % (Auto) % Lymph % (Auto) % [place] % (Auto) % Eos % (Auto) % Baso % (Auto) % Neut # (Auto) (1.8-7.7) 10^3/u L Lymph # (Auto) (0.8-4.8) 10^3/u L [place] # (Auto) (0.2-0.9) 10^3/u L Eos # (Auto) (0.0-0.8) 10^3/u L Baso # (Auto) (0.0-0.1) 10^3/u L Nucleated RBC % (a uto) % Nucleated RBCs # /100WBC Sodium (136-145) mmol/L Potassium (3.5-5.1) mmol/L Chloride (98-107) mmol/L Carbon Dioxide (22-29) mmol/L Anion Gap (5-19) BUN (8-23) mg/dL Creatinine (0.5-0.9) mg/dL GFR Calculation Glucose (65-115) mg/dL Calculated Osmolal ity (285-295) mOsm/k g Calcium (8.5-10.5) mg/dL Total Bilirubin (0.15-1.2) mg/dL AST (0-32) U/L ALT (0-33) U/L Alkaline Phosphata se (35-105) IU/L Troponin T Baselin e (0-10) ng/L Troponin T 120 Min mariana 60.58 H (0-10) ng/L Delta Troponin T -3.42 L (0-10) ABS# NT-Pro-B Natriuret Pep (0-125) pg/mL Total Protein (6.6-8.7) g/dL Albumin (3.5-5.2) g/dL Globulin (1.3-4.6) g/dL Lipase (13-60) U/L TSH (0.27-4.20) uIU/ mL Free T4 0.82 (0.82-1.77) ng/d L Urine Color Yellow (Yellow) Urine Appearance Clear (CLEAR) Urine pH 8 H (5-7) Ur Specific Gravit y 1.005 (1.005-1.030) Urine Protein 2+ H (Negative) Urine Glucose (UA) 1+ H (Normal) Urine Ketones Negative (Negative) Urine Blood 3+ H (Negative) Urine Nitrate Negative (Negative) Urine Bilirubin Neg (Negative) Prot Sulfosalicyli c Acd Positive (Negative) Urine Urobilinogen Norm (Negative) mg/dL Ur Leukocyte Ayesha ase Negative (Negative) Urine RBC 10-15 H (0-2) /hpf Urine WBC 0-4 H (0-5) /hpf Ur Squamous Epith Cells 0-4 H (0-5) /hpf Amorphous Sediment Not Reportable Urine Bacteria Trace (NONE) /hpf Urine Mucus Trace /hpf EKG Data^: EKG 1: Attestation: I personally reviewed and interpreted this EKG as follows: EKG interpretation date: 07/26/21 EKG interpretation time: 10:39 Interpretation: Twelve-lead EKG shows a regular sinus rhythm at a rate of 78. NH interval 149, QRS duration 115, QTc 428. Left axis deviation. Interpretation: Sinus rhythm. LVH. Computer generated interpretation: Abdomen/Pelvis CT 07/26/21 10:07 IMPRESSION: 1. Marked perinephric stranding around each kidney with no obstruction. Correlate for possible pyelonephritis. 2. Constipation with no obstruction. 3. Mild anterior wedging of T9. Sclerotic and lytic changes within T9 with adjacent paravertebral soft tissue edema. There is also a small adjacent LEFT pleural effusion. With history of recent trauma this may be related to a compression fracture. Cannot exclude malignancy. Additional imaging may be necessary. Consider CT thoracic spine imaging or MRI of thoracic spine with and without contrast. 4. Stable minimal compression deformity superior endplate of L4. Chest X-Ray 07/26/21 10:07 IMPRESSION: 1. No pneumonia. 2. Mild atherosclerosis aorta. 3. Minimal pleural thickening versus small LEFT pleural effusion. Head CT 07/26/21 10:07 IMPRESSION: 1. No acute intracranial hemorrhage or edema. 2. Stable noncontrast head CT since 08/24/2019. Thoracic Spine CT 07/26/21 12:08 IMPRESSION: 1. Acute T8, 50% compression fracture without retropulsion. 2. Acute T9, 20% compression fracture without retropulsion. 3. Moderate amount of paravertebral edema and hemorrhage surrounding the T8 and T9 vertebral bodies. EKG 2: Attestation: I personally reviewed and interpreted this EKG as follows: EKG interpretation date: 07/26/21 EKG interpretation time: 12:50 Interpretation: Twelve-lead EKG shows a regular sinus rhythm at a rate of 70. NH interval 123, QRS duration 123, QTc 437. Left axis deviation. Interpretation: Sinus rhythm, LVH. Computer generated interpretation: Abdomen/Pelvis CT 07/26/21 10:07 IMPRESSION: 1. Marked perinephric stranding around each kidney with no obstruction. Correlate for possible pyelonephritis. 2. Constipation with no obstruction. 3. Mild anterior wedging of T9. Sclerotic and lytic changes within T9 with adjacent paravertebral soft tissue edema. There is also a small adjacent LEFT pleural effusion. With history of recent trauma this may be related to a compression fracture. Cannot exclude malignancy. Additional imaging may be necessary. Consider CT thoracic spine imaging or MRI of thoracic spine with and without contrast. 4. Stable minimal compression deformity superior endplate of L4. Chest X-Ray 07/26/21 10:07 IMPRESSION: 1. No pneumonia. 2. Mild atherosclerosis aorta. 3. Minimal pleural thickening versus small LEFT pleural effusion. Head CT 07/26/21 10:07 IMPRESSION: 1. No acute intracranial hemorrhage or edema. 2. Stable noncontrast head CT since 08/24/2019. Thoracic Spine CT 07/26/21 12:08 IMPRESSION: 1. Acute T8, 50% compression fracture without retropulsion. 2. Acute T9, 20% compression fracture without retropulsion. 3. Moderate amount of paravertebral edema and hemorrhage surrounding the T8 and T9 vertebral bodies. Discharge Plan Discharge Patient Disposition: Home Clinical Impression: Compression fracture of thoracic vertebra, Fall, End stage renal disease Condition: Stable Prescriptions: New oxycodone 5 mg tablet 5 mg PO Q4H PRN (Reason: pain) Qty: 20 RF: 0 methocarbamol 750 mg tablet 750 mg PO TID Qty: 20 RF: 0 No Action RenaPlex-D 800 mcg-12.5 mg -2,000 unit tablet 1 tab PO QAM RF: 0 amitriptyline 100 mg tablet 100 mg PO BEDTIME RF: 0 ropinirole 0.5 mg tablet 0.5 mg PO BEDTIME PRN (Reason: Restless Leg(S)) RF: 0 NovaSource Renal 2 Cassius 0.09 gram- 2 kcal/mL liquid 1 ea PO BID RF: 0 metolazone 5 mg tablet 5 mg PO DAILY@15 RF: 0 potassium chloride 10 mEq tablet extended release 10 meq PO BID RF: 0 (DME) corset back brace See Rx Instructions .Route .MEDSUPPLY Qty: 1 RF: 0 (DME) FreeStyle Anita 2 Sensor Kit See Rx Instructions .Route Qty: 3 RF: 3 (DME) FreeStyle Anita 2 [place] Misc See Rx Instructions .Route Qty: 1 RF: 0 ondansetron HCl [Zofran] 4 mg tablet 4 mg PO Q6H PRN (Reason: nausea and vomiting) Qty: 20 RF: 0 torsemide 100 mg tablet See Rx Instructions .ROUTE .COMPLEX RF: 0 Tresiba FlexTouch U-100 100 unit/mL (3 mL) insulin pen 15 unit SUBCUT BEDTIME RF: 0 insulin aspart U-100 [Novolog Flexpen U-100 Insulin] 100 unit/mL (3 mL) insulin pen See Rx Instructions .ROUTE .COMPLEX RF: 0 hydrocodone-acetaminophen 10-325 mg tablet 1 tab PO Q4H PRN (Reason: Pain) RF: 0 Tylenol Extra Strength 500 mg Tablet 1,000 mg PO Q4H PRN (Reason: Pain) RF: 0 lidocaine-prilocaine 2.5-2.5 % cream See Rx Instructions .ROUTE .COMPLEX RF: 0 levothyroxine 200 mcg tablet 200 mcg PO .FIVE DAYS A WEEK RF: 0 PreserVision AREDS-2 250-90-40-1 mg Capsule 1 tab PO BID RF: 0 Auryxia 210 mg iron tablet 210 mg PO TID RF: 0 tamsulosin 0.4 mg capsule 0.4 mg PO BID RF: 0 pantoprazole 40 mg tablet,delayed release (DR/EC) 40 mg PO QAM PRN (Reason: Heartburn) RF: 0 Discharge Orders: Discharge ED (Routine); Ordered 07/26/21 Ordered By: Neri Ohara Referrals: Cesar Mendez MD [Primary Care Provider] - Discharge Diet: Usual diet Discharge Activity: Limit activity as instructed Patient Instructions: Vertebral Compression Fracture (ED), Opioid Safety Activity Restrictions/Additional Instructions: Thank you for visiting the emergency department. You were seen and evaluated for fall. You pain is likely secondary to new vertebral compression fractures at T8 and T9. Please follow-up with your spine surgeon. Please follow-up with your primary care provider. Please return to the emergency department for uncontrolled pain, or anything else that you are concerned about and feel needs emergency department evaluation. You will be given a prescription for oxycodone. 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
--- NOTE | 2021-07-26 10:07 | CT_ITS ---
WS: [id number] CT HEAD NONCONTRAST HISTORY: fall, head strike TECHNIQUE: Contiguous axial imaging performed through the brain in 2.5 mm imaging. Bone and soft tiss ue windows. Sagittal and coronal reformats reviewed. All CT scans at [facility] use at least one of these dose optimization techniques: automated exposure control; mA and/or kV adjustment per pa tient size (includes targeted exams where dose is matched to clinical indication); or iterative recon struction. DLP: 794.88 mGy.cm COMPARISON: 08/24/2019 Soft tissue mass of mild increased density towards the LEFT vertex. This appears extra-axial on the c oronal and sagittal reformats. Mass measures 2.0 x 2.0 cm. No increase in size. Very mild atrophy and chronic microvascular ischemic disease. No acute hemorrhage. Prominent perivasc ular space versus small remote lacunar infarct in the LEFT inferior basal ganglia. Ventricles: Normal size with no hydrocephalus. No inferior displacement of cerebellar tonsils. Paranasal sinuses: Mild mucoperiosteal thickening in the RIGHT frontal sinus. No air-fluid levels. Mastoid air cells: Well pneumatized. Calvarium and scalp: Skull is intact with no soft tissue edema or swelling. CT/CT head wo con* [id number] IMPRESSION: 1. No acute intracranial hemorrhage or edema. 2. Stable noncontrast head CT since 08/24/2019.
--- NOTE | 2021-07-26 10:07 | XR_ITS ---
WS: [id number] PORTABLE CHEST HISTORY: chest pain COMPARISON: 06/26/2021 Large-bore dialysis catheter through the RIGHT subclavian vein. LEFT subclavian Mediport. Lungs are clear and well expanded. . Minimal blunting of the LEFT costophrenic angle. Cardiac size: Normal. Mediastinum/Aorta: Mild atherosclerosis aorta. Osteopenia. Prior LEFT axillary abdoulaye dissection. There is a short stent within the soft tissues of the RIGHT upp er extremity. XR/XR chest 1V portable [id number] IMPRESSION: 1. No pneumonia. 2. Mild atherosclerosis aorta. 3. Minimal pleural thickening versus small LEFT pleural effusion.
--- NOTE | 2021-07-26 10:07 | CT_ITS ---
WS: [id number] CT ABDOMEN AND PELVIS NONCONTRAST HISTORY: abdominal pain TECHNIQUE: Imaging performed through the abdomen and pelvis. Coronal and sagittal reformats are submi tted. All CT scans at [facility] use at least one of these dose optimization techniques: auto mated exposure control; mA and/or kV adjustment per patient size (includes targeted exams where dose is matched to clinical indication); or iterative reconstruction. DLP: 1399.37 mGy.cm COMPARISON: 06/04/2021 and 01/10/2020 Lower thorax: Dependent changes at the lung bases. Very small LEFT pleural effusion. Moderate enlarge ment of the heart. Small hiatal hernia. Liver: Normal size liver. No mass or bile duct dilatation. Gallbladder: Normally distended gallbladder with calcified wall. No adjacent inflammation. Pancreas: Moderate atrophy of the pancreas. Spleen: Normal. Adrenal glands: Normal. No mass. Right kidney: Normal size kidney with moderate perinephric stranding. No obstruction. Left kidney: Normal size kidney with perinephric stranding. No obstruction. Aorta: Moderate atherosclerosis of aorta and mesenteric arteries. No aneurysm. No free fluid, intraperitoneal air or significant lymphadenopathy. GI tract: Moderate diffuse fecal retention and constipation. No obstruction is identified. There is a lso moderate fluid distention of the stomach. Abdominal wall: Negative. No hernia. Pelvis: Moderate distention of the urinary bladder. No intraluminal filling defect. Seen on the appea phyllis of the uterus. No adnexal masses or fluid. Osseous structures: L4 anterolisthesis by 4 mm. Stable minimal compression deformity involving the cooper perior endplate of L4. Mixed sclerotic and lytic changes within T9. There is mild anterior wedging of T9. There is increased soft tissue edema surrounding the T9 vertebral body. There may be similar findings in the T8 vertebr al body but only a small portion is visualized. CT/CT abdomen pelvis wo con [id number] IMPRESSION: 1. Marked perinephric stranding around each kidney with no obstruction. Correl ate for possible pyelonephritis. 2. Constipation with no obstruction. 3. Mild anterior wedging of T9. Sclerotic and lytic changes within T9 with adj acent paravertebral soft tissue edema. There is also a small adjacent LEFT pleu ral effusion. With history of recent trauma this may be related to a compressio n fracture. Cannot exclude malignancy. Additional imaging may be necessary. 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 4. Stable minimal compression deformity superior endplate of L4.
[2021-07-26] MEDS: fentaNYL 50 mcg/mL INJ 2mL 25 MCG IVP ×2 (10:57→11:54)
[2021-07-26 11:02] LABS: Basophils # 0.1 10^3/uL (0.0-0.1); Basophils % 0.8 %; Eosinophils # 0.1 10^3/uL (0.0-0.8); Eosinophils % 1.3 %; Hematocrit 39.9 % (37.0-47.0); Hemoglobin 12.4 g/dL (11.5-15.3); Lymphocytes # 0.9 10^3/uL (0.8-4.8); Lymphocytes % 12.1 %; Mean Corpuscular HGB Conc 31.1 g/dL (30.0-36.0); Mean Corpuscular Hemoglobin 28.6 pg (28.0-34.0); Mean Corpuscular Volume 92.1 fl (81-99); Mean Platelet Volume 11.1 fL (7.4-10.4); Monocytes # 0.4 10^3/uL (0.2-0.9); Monocytes % 6.2 %; Neutrophils # 5.64 10^3/uL (1.8-7.7); Neutrophils % 79.3 %; Nucleated Red Blood Cells % 0 %; Platelet Count 253 10^3/cmm (130-400); Red Blood Count 4.33 10^6/uL (4.1-5.3); Red Cell Distribution Width 17.2 % (12.1-15.1); White Blood Count 7.1 10^3/uL (4.0-10.0)
[2021-07-26 11:26] LABS: Troponin(5th) Baseline 64 ng/L (0-10)
[2021-07-26 11:28] LABS: Add Urine Microscopic? YES; Bilirubin Urine Neg (Negative); Blood Urine 3+ (Negative); Glucose Urine UA 1+ (Normal); Ketones Urine Negative (Negative); Leukocyte Esterase Urine Negative (Negative); Nitrate Urine Negative (Negative); Protein Urine 2+ (Negative); Specific Gravity, Urine 1.005 (1.005-1.030); Sulfosalicylic Acid Urine Positive (Negative); Urine Appearance Clear (CLEAR); Urine Color Yellow (Yellow); Urobilinogen Urine Norm (Negative); WBC Urine 0-4 /hpf (0-5); pH Urine 8 (5-7)
[2021-07-26 11:29] LABS: Add Urine Culture? No; Bacteria Urine TRACE /hpf; Mucus Urine TRACE /hpf; Squamous Epithelial Cell Urine 0-4 /hpf (0-5)
[2021-07-26 11:32] LABS: Alanine Aminotransferase 12 U/L (0-33); Albumin Level 3.7 g/dL (3.5-5.2); Alkaline Phosphatase 115 IU/L (35-105); Anion Gap 14.6 (5-19); Aspartate Amino Transferase 12 U/L (0-32); Blood Urea Nitrogen 24 mg/dL (8-23); Calcium 8.6 mg/dL (8.5-10.5); Carbon Dioxide 26 mmol/L (22-29); Chloride 97 mmol/L (98-107); Globulin 2.5 g/dL (1.3-4.6); Glucose 157 mg/dL (65-115); Lipase 10 U/L (13-60); NT Pro B Type Natriuretic Pept 3478 pg/mL (0-125); Osmolality Calculated 285 mOsm/kg (285-295); Potassium 3.6 mmol/L (3.5-5.1); Sodium 134 mmol/L (136-145); Thyroid Stimulating Hormone 60.71 uIU/mL (0.27-4.20); Total Bilirubin 0.4 mg/dL (0.15-1.2); Total Protein 6.2 g/dL (6.6-8.7)
[2021-07-26] MEDS: labetalol 5 mg/mL SDV 20mL 10 MG IVP (11:46)
--- NOTE | 2021-07-26 12:08 | ECG_ITS ---
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 Measurements Intervals [place] Rate: 70 P: 29 SC: 123 QRS: -47 QRSD: 123 T: 9 QT: 416 QTc: 451 Interpretive Statements SINUS RHYTHM LEFT AXIS DEVIATION [QRS AXIS < -30] MODERATE INTRAVENTRICULAR CONDUCTION DELAY [110+ ms QRS DURATION] VOLTAGE CRITERIA FOR LVH [MEETS CRITERIA IN ONE OF: R(aVL), S(V1), R(V5), R(V5/V6)+S(V1)] Compared to ECG 07/26/2021 10:31:59 Intraventricular conduction delay now present ST (T wave) deviation no longer present Myocardial infarct finding no longer present Electronically Signed On 07-26-2021 19:07:15 CDT by Elsie Villagomez M.D. [id number]
--- NOTE | 2021-07-26 12:08 | CT_ITS ---
WS: [id number] CT THORACIC SPINE HISTORY: abnormal CT, pain after fall TECHNIQUE: Contiguous 2.5 mm axial images are reviewed to thoracic spine. Images are reformatted in s agittal and coronal planes. All CT scans at [facility] use at least one of these dose optimiz ation techniques: automated exposure control; mA and/or kV adjustment per patient size (includes targ eted exams where dose is matched to clinical indication); or iterative reconstruction. DLP: 1402.94 mGy.cm COMPARISON: None available. Increase in thoracic kyphosis centered at T8-9. Acute compression fractures at T8 and T9. T8 compress ion fracture 50% and T9 20%. Multiple small osseous fragments anteriorly with a moderate amount of pa ravertebral soft tissue thickening, edema and hemorrhage. Transverse processes and posterior elements appear intact. No rib fracture identified. No retropulsion of the vertebral bodies. No cord contact. Mild bilateral foraminal stenosis at T8-9 and T9-10. No central or foraminal high-grade stenosis. No acute-appearing disc protrusions or herniations. Smal l LEFT effusion. CT/CT thoracic spin wo con* [id number] IMPRESSION: 1. Acute T8, 50% compression fracture without retropulsion. 2. Acute T9, 20% compression fracture without retropulsion. 3. Moderate amount of paravertebral edema and hemorrhage surrounding the T8 an d T9 vertebral bodies.
--- NOTE | 2021-07-26 12:36 | PC.PHAR ---
pt states she takes care of her own medications-pt states she takes a binder but is unsure of the name states what fresenius has is what she takes fresenius has the pt should be taking auryxia 210mg tid with meals-notes are made in the pharmacy comments
[2021-07-26 12:41] LABS: Free T4 Free Thyroxine 0.82 ng/dL (0.82-1.77)
[2021-07-26 13:12] LABS: Troponin 5 2HR 60.58 ng/L (0-10)
[2021-07-26 13:16] LABS: Troponin 5 2HR Delta -3.42 ABS# (0-10)
[2021-07-26] MEDS: acetaminophen 325 mg Tablet 650 MG PO (13:18)
[2021-07-26] MEDS: lidocaine 5% Patch 1 PATCH TOPICAL (13:19)
[2021-07-26] MEDS: methocarbamol 750 mg Tablet PO (13:19)
[2021-07-26] MEDS: ketorolac 30 mg/mL INJ 15 MG IVP (13:19)
--- NOTE | 2021-07-26 16:08 | ECG_ITS ---
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 Measurements Intervals [place] Rate: 78 P: 47 TX: 149 QRS: -44 QRSD: 115 T: 54 QT: 395 QTc: 450 Interpretive Statements SINUS RHYTHM LEFT AXIS DEVIATION [QRS AXIS < -30] LEFT VENTRICULAR HYPERTROPHY AND ST-T CHANGE [VOLTAGE CRITERIA PLUS ST/T ABNORMALITY] POSSIBLE ANTERIOR MYOCARDIAL INFARCTION , OF INDETERMINATE AGE [30 ms Q WAVE IN V3/V4, OR R < 0.2 mV IN V4] Compared to ECG 01/10/2020 12:52:57 Left-axis deviation now present Left ventricular hypertrophy now present ST (T wave) deviation now present Incomplete right bundle-branch block no longer present Myocardial infarct finding still present Electronically Signed On 07-26-2021 19:13:24 CDT by Elsie Villagomez M.D. [id number]
--- NOTE | 2021-07-29 09:19 | DCPLANNER ---
international operations manager had message to schedule a follow up appointment for patient with ortho. international operations manager called the ortho clinic, spoke with Kirsten, gave clinic patients information. international operations manager was told that patients information would be printed and reviewed. Clinic will call patient with appointment information.
--- NOTE | 2021-07-30 14:21 | DCPLANNER ---
Patient had a follow up appointment scheduled for 07.30.[address] Ferrera at [facility] - patient did attend appointment.
== END 2021-07-26 14:23 | disposition home or self-care (01) ==
PROVIDERS: Emergency Provider Emergency Medicine; PCP Family Medicine
DX: S22.060A Wedge compression fracture of T7-T8 vertebra, initial encounter for closed fracture (principal); S22.070A Wedge compression fracture of T9-T10 vertebra, initial encounter for closed fracture; I12.0 Hypertensive chronic kidney disease with stage 5 chronic kidney disease or end stage renal disease; E11.22 Type 2 diabetes mellitus with diabetic chronic kidney disease; N18.6 End stage renal disease; Z99.2 Dependence on renal dialysis; Z79.4 Long term (current) use of insulin; Z85.3 Personal history of malignant neoplasm of breast; E78.5 Hyperlipidemia, unspecified; Z86.73 Personal history of transient ischemic attack (TIA), and cerebral infarction without residual deficits; W19.XXXA Unspecified fall, initial encounter
CPT/HCPCS: 70450; 71045; 72128; 74176; 80053; 81001; 83690; 83880; 84439; 84443; 84484; 85025; 93005; 96374; 96375; 99284; J1642; J1885; J3010; J3490

== ENCOUNTER 2021-07-30 06:00 | Outpatient (CLI) | payer MEDICARE, OTHER, SELFPAY | END 2021-07-30 06:01 | disposition home or self-care (01) | LOC: RAD 03-20 15:09 | PROVIDERS: PCP Internal Medicine Nephrology; Visit Provider Orthopaedic Surgery | DX: S32.000A Wedge compression fracture of unspecified lumbar vertebra, initial encounter for closed fracture (principal); W19.XXXA Unspecified fall, initial encounter | CPT/HCPCS: 72100 ==

== ENCOUNTER 2021-08-01 07:57 | Day surgery (SDC) | payer MEDICARE, OTHER, SELFPAY ==
[2021-07-31 13:17] VITALS: BMI 29.2
[2021-08-01] VITALS (15 sets, daily range): BP systolic 163–217; BP diastolic 69–86; PULSE 67–81; RESP 14–20; TEMP 36.3; O2SAT 94–100
--- NOTE | 2021-08-01 08:58 | W.PM.OPSUD ---
Surgery/Procedure H&P Update DATE OF PROCEDURE: August 01, 2021 DATE H&P PERFORMED: 05/01/20 H&P UPDATE INFORMATION: No changes to prior documentation PREOP DIAGNOSIS: Symptomatic cholelithiasis. PLANNED PROCEDURE: Operation Date: 08/01/21 09:45 Proposed Procedures p Laparoscopic Cholecystectomy(Not Applicable) - Atul Mullins MD
[2021-08-01 09:01] LABS: Glucose Point of Care 153 mg/dL (70-110)
[2021-08-01] MEDS: sodium chloride 0.9% 1,000 ML 30 ML IV (09:06)
[2021-08-01 09:35] LABS: Alanine Aminotransferase 12 U/L (0-33); Albumin Level 3.7 g/dL (3.5-5.2); Alkaline Phosphatase 132 IU/L (35-105); Aspartate Amino Transferase 14 U/L (0-32); Globulin 3.5 g/dL (1.3-4.6); Potassium 3.9 mmol/L (3.5-5.1); Total Bilirubin 0.5 mg/dL (0.15-1.2); Total Protein 7.2 g/dL (6.6-8.7)
--- NOTE | 2021-08-01 09:43 | P.ANESASSM_ITS ---
Pre-Anesthetic Assessment Pre-Anesthetic Assessment: Height/Weight: Height 1.6 m Weight 74.843 kg Preop Diagnosis: Symptomatic cholelithiasis. Proposed Procedure: Operation Date: 08/01/21 09:45 Proposed Procedures p Laparoscopic Cholecystectomy(Not Applicable) - Atul Mullins MD Was Beta Jessa taken within 24 hours: N/A Was Clonidine taken within 24 hours: N/A Last intake: Intake Last Liquid Date 07/31/21 Last Liquid Time 23:59 Last Solid Date 07/28/21 Last Solid Time 18:00 Social: Social History: No alcohol and No tobacco Exam: Pre-Anes Outpt Exam: alert, oriented x 3, clear to auscultation bilaterally and regular rate & rhythm Airway: Submandibular: WNL Cervical ROM: WNL MP: 2 Dentition: Chipped CV/HEM: CV/HEM: Anemia : : Chronic renal failure Comments: ESRDz, M-W-F dialysis through right SC cath, fistula RUE GI: GI: GERD Metabolic: Metabolic: DM and Thyroid Musc/skel: Musc/skel: OA/DJD Neuropsych: Neuropsych: Neuropathy Anesthetic Plan: ASA status: 3 Anesthesia: General Risk of > 500 ml blood loss (7ml/kg in children): No Meds/Allergies Current Medications: Current Medications Generic Name Dose Route Start Last Admin Trade Name Freq PRN Reason Stop Dose Admin Sodium Chloride 1,000 mls @ 30 ml s/hr 08/01/21 08:30 08/01/21 09:06 Sodium Chloride 0.9% IV 08/02/21 08:29 30 mls/hr .Q24H NIKKY Administration PFSH Anesthesia PFSH: Medical History Cataract Chronic kidney disease (CKD) Closed fracture of left proximal humerus Hemodialysis patient History of peritoneal dialysis HTN (hypertension) Hx of breast cancer Hydronephrosis Hyperlipidemia Hypothyroidism Incomplete bladder emptying Kidney stones Microcytic anemia Obstructive pyelonephritis Type 2 diabetes mellitus Ureteral obstruction, right HX OF RIGHT URETEROSCOPY WITH STENT PLACEMENT Surgical History H/O knee surgery H/O skin graft H/O tubal ligation History of kidney surgery History of lumpectomy of left breast History of surgery Right-sided pleurodesis and Pleurx catheter placement History of surgery on arm Hx of cataract surgery Hx of tonsillectomy S/P dialysis catheter insertion Peritoneal dialysis catheter placement x3 according to patient, revisions had to be performed in [facility] at an outside facility Hemodialysis catheter placement S/P hemodialysis catheter insertion Right IJ: Removed Family History Mother Stroke Father Stroke Social History Smoking and tobacco status: never smoked Alcohol intake: never Lives independently: Yes Household members: spouse Marital status: Current occupational status: employed History of recent travel: No Current gender identity: Female Data Anesthesia CBC & Chem 7: 08/01/21 09:10 Other Labs: Laboratory Results - last 48 hr 08/01/21 08/01/21 08:58 09:10 Potassium 3.9 POC Glucose 153 H Total Bilirubin 0.5 Direct Bilirubin 0.20 AST 14 ALT 12 Alkaline Phosphatase 132 H Total Protein 7.2 Albumin 3.7 Globulin 3.5 Cardiac Studies: Holter Monitor 09/10/20
--- NOTE | 2021-08-01 11:00 | PM.OP ---
Operative Report Date of procedure: August 01, 2021 Pre-op Diagnosis: Symptomatic cholelithiasis. Post-op diagnosis: same Procedure Done: Laparoscopic cholecystectomy. Specimens removed/disposition: Gallbladder. Surgeon: Atul Mullins Anesthesia: General Estimated blood loss (mL): 10 Complications: None. Condition: stable Disposition: PACU Procedure: The patient was brought to the Operating Room and was placed in a supine position on the Operating Room table. General endotracheal anesthesia was induced. The abdomen was prepped and draped in a sterile fashion. A small vertical incision was carried out in the superior aspect of the umbilicus. Blunt dissection was carried out down to the fascia, which was grasped with a Melissa clamp. A stay suture of 0 Vicryl was placed on either side of the midline and the midline fascia was incised. The underlying peritoneum was opened bluntly and the Rosaura port was placed directly into the peritoneal cavity and was held in place with the inflatable balloon. The peritoneal cavity was insufflated with carbon dioxide. The laparoscope was used to inspect the abdominal cavity. The patient had some adhesions in the lower abdomen at the midline in the right lower quadrant. These involved both omentum and bowel. None of these were disturbed, but the pressure in the abdomen was limited to 10 mmHg throughout the procedure as a result of their presence. A 5 millimeter port was placed in the epigastrium under direct vision. Two 5-millimeter ports were placed on the right side of the abdomen under direct vision. The gallbladder was grasped and was elevated. The gallbladder had chronic adhesions all the way along the fundus down to and involving the infundibular region. In addition, it appeared as if almost the entire lumen was filled with one large stone by palpation. Blunt dissection and hydrodissection were carried out in the infundibular region of the gallbladder and the cystic duct and cystic artery were identified. There was extensive chronic inflammation in this region, as well. The gallbladder was partially removed from the liver bed using cautery and the spatula to confirm the anatomy before the structures were clipped and divided. The gallbladder was then removed from the liver bed using cautery and the spatula. After the gallbladder had been removed from the liver bed, the laparoscope was moved to the epigastric port and the gallbladder was removed from the peritoneal cavity through the umbilical port site after being placed in a laparoscopic bag. The fascial opening at the umbilical incision had to be elongated slightly to allow passage of the gallbladder with a large stone in place. The stay sutures of Vicryl were tied to each other at the umbilicus and additional [id number] suture of 0 Vicryl was placed to buttress the repair, closing the defect so that it was airtight. The perihepatic spaces were irrigated with saline and the liver bed was reinspected. No ongoing problems were seen. The remaining ports were removed from the abdominal wall and the pneumoperitoneum was evacuated. All skin incisions were closed using inverted interrupted sutures of 4-0 Vicryl. Benzoin and Steri-Strips were placed over the incisions and Band-Aids followed. The patient was taken to the Recovery Area in stable condition postoperatively.
[2021-08-01] MEDS: labetalol 5 mg/mL SDV 20mL IVP ×2 (11:19→11:32)
[2021-08-01 11:23] LABS: Glucose Point of Care 141 mg/dL (70-110)
[2021-08-01] MEDS: fentaNYL 50 mcg/mL INJ 2mL IVP ×2 (11:39→11:47)
== END 2021-08-01 13:18 | disposition home or self-care (01) ==
PROVIDERS: PCP Family Medicine; Visit Provider Surgery
PROC: 0FT44ZZ Resection of Gallbladder, Percutaneous Endoscopic Approach (ICD-10-PCS; CPT 47562; principal; 2021-08-01 09:45)
DX: K80.10 Calculus of gallbladder with chronic cholecystitis without obstruction (principal); E11.22 Type 2 diabetes mellitus with diabetic chronic kidney disease; I12.0 Hypertensive chronic kidney disease with stage 5 chronic kidney disease or end stage renal disease; N18.6 End stage renal disease; Z99.2 Dependence on renal dialysis; M19.90 Unspecified osteoarthritis, unspecified site; M79.7 Fibromyalgia; Z85.3 Personal history of malignant neoplasm of breast; Z79.4 Long term (current) use of insulin; Z82.49 Family history of ischemic heart disease and other diseases of the circulatory system; Z83.3 Family history of diabetes mellitus
CPT/HCPCS: 47562; 36416; 36592; 80076; 82962; 84132; 88304; 96365; J0690; J2405; J2704; J3010; J3490; J7030

== ENCOUNTER → 2021-08-13 08:16 | Outpatient (BNVA) | payer MEDICARE, OTHER, SELFPAY | PROVIDERS: PCP Family Medicine; Visit Provider Orthopaedic Surgery | DX: S29.9XXA Unspecified injury of thorax, initial encounter (principal); X58.XXXA Exposure to other specified factors, initial encounter | CPT/HCPCS: 72100 ==

== ENCOUNTER 2021-08-16 09:53 | Outpatient (CLI) | payer MEDICARE, OTHER, SELFPAY ==
--- NOTE | 2021-08-16 10:15 | USCV_ITS ---
María Saab Age: 71 Gender: F : 1950 Exam Date: 08/16/2021 10:15 Ordering Phys: Nellie Simons MD Technologist: Mirian Alvares Exam Location: [facility] [place] Indication: palpitations, dizziness Risk Factors: Previous Vascular Surgery: Right Brachial BP: / Left Brachial BP: / Right Left Velocity (cm/s) Spectral Plaque Velocity (cm/s) Spectral Plaque Syst/Diast Broadening Syst/Diast Broadening 89.30/ 13.20 Prox CCA 95.70 / 6.80 73.90/ 13.20 Mid CCA 50.40 / 8.50 Hetro 44.30/ 9.30 Hetro Distal CCA 64.90 / 11.10 Hetro 43.40/ 9.20 Prox ICA 59.00 / 14.50 Hetro 42.70/ 8.50 Mid ICA 61.50 / 12.80 81.60/ 15.50 Distal ICA 72.10 / 16.30 97.40 ECA 90.60 Hetro 0.91 ICA/CCA 0.75 Antegrade Vertebral Antegrade 69.90/ 13.30 cm/s 28.80/ 5.90 cm/s Tri Subclavian Tri 93.20 94.80 CONCLUSIONS Right ICA stenosis <50%. Mild atheromatous plaque right carotid bulb/ICA. Left ICA stenosis <50%. Moderate atheromatous plaque left carotid bulb/ICA. Normal antegrade Doppler flow noted in the right vertebral artery. Normal antegrade Doppler flow noted in the left vertebral artery. Naif Jenkins MD (Electronically Signed) Final Date: 16 August 2021 15:14 S
== END 2021-08-16 09:54 | disposition home or self-care (01) ==
LOC: US 09:54
PROVIDERS: PCP Family Medicine; Visit Provider Specialist
DX: R42 Dizziness and giddiness (principal); R00.2 Palpitations
CPT/HCPCS: 93880

== ENCOUNTER 2021-08-27 12:13 | Outpatient (CLI) | payer MEDICARE, OTHER, SELFPAY ==
--- NOTE | 2021-08-27 13:00 | MR_ITS ---
WS: [id number] MRI LUMBAR SPINE NONCONTRAST TECHNIQUE: Sagittal T1, T2 and STIR imaging. Axial T1 and T2 imaging. CLINICAL INFORMATION: M54.50 - Low back pain, unspecified COMPARISON: None. FINDINGS: Mild lumbar curve. Mild biconcave compression at T12 with loss of approximately 20% vertebral body he ight and anterior wedging. Mild associated edema consistent with recent compression. No retropulsion. Mild compression along the inferior endplate at L1 consistent with recent compression. Mild compress ion superior endplate T11 with trace edema likely subacute to early chronic Hemangioma posterior T12 vertebral body. Grade 1 anterolisthesis L4 on L5 measuring 3.3 mm. Chronic appearing compression fractures with anterior wedging in the mid and lower thoracic spine T7, T8, T9, T10. L1-L2: Normal. L2-L3: Mild annular bulging. Narrowing of the subarticular recess bilaterally. Mild facet arthropathy . Spinal canal is patent. L3-L4: Mild annular bulging with slight narrowing of the subarticular recess bilaterally. Moderate fa cet arthropathy. Spinal canal and foramen are patent. L4-L5: Slight anterolisthesis L4 on L5. Mild central canal stenosis and impingement on the traversing right greater than left L5 nerve roots. Moderate facet arthropathy ligament flavum hypertrophy. Mild right and no significant left foraminal narrowing. L5-S1: Mild disc osteophytic ridging. Moderate facet arthropathy. Spinal canal and foramen are patent . Adrenal glands are normal. Small bilateral renal cysts. MR/MR lumbar spine wo con* [id number] IMPRESSION: 1. Mild lumbar curve. Grade 1 anterolisthesis L4 on L5 measuring 3.3 mm. 2. Acute to subacute compression involving the superior endplate T11 , biconca ve compression at T12, and inferior endplate L1 with mild edema at these locati ons. This appears more acute at T12 and L1. Loss of approximately 25% vertebral body height at T12. No significant retropulsion. 3. Chronic appearing compression fractures involving the mid and lower thoraci c spine at T7, T8, T9, and T10 4. Mild central canal stenosis L4-5 with impingement on the traversing right g reater than left L5 nerve roots with mild central canal stenosis. Moderate to a dvanced 5. Mild central canal stenosis L2-3 and L3-4 with narrowing of the subarticula r recess bilaterally. Moderate Facet arthropathy.
== END 2021-08-27 12:14 | disposition home or self-care (01) ==
LOC: RADSHAW 12:16
PROVIDERS: PCP Family Medicine; Visit Provider Orthopaedic Surgery
DX: M48.061 Spinal stenosis, lumbar region without neurogenic claudication (principal); M48.56XA Collapsed vertebra, not elsewhere classified, lumbar region, initial encounter for fracture; M54.50 Low back pain, unspecified
CPT/HCPCS: 72148

== ENCOUNTER → 2021-09-05 09:11 | Outpatient (BNVA) | payer MEDICARE, OTHER, SELFPAY | PROVIDERS: PCP Family Medicine; Visit Provider Physician Assistant | DX: M43.16 Spondylolisthesis, lumbar region (principal) | CPT/HCPCS: 72100 ==

== ENCOUNTER → 2021-09-10 10:36 | Outpatient (BNVA) | payer MEDICARE, OTHER, SELFPAY | PROVIDERS: PCP Family Medicine; Visit Provider Internal Medicine | DX: E11.319 Type 2 diabetes mellitus with unspecified diabetic retinopathy without macular edema (principal); E11.40 Type 2 diabetes mellitus with diabetic neuropathy, unspecified; E11.22 Type 2 diabetes mellitus with diabetic chronic kidney disease; E03.9 Hypothyroidism, unspecified; E16.0 Drug-induced hypoglycemia without coma; T38.3X5A Adverse effect of insulin and oral hypoglycemic [antidiabetic] drugs, initial encounter; N18.6 End stage renal disease; Z79.84 Long term (current) use of oral hypoglycemic drugs | CPT/HCPCS: 99214 ==

== ENCOUNTER → 2021-09-17 09:53 | Outpatient (BNVA) | payer MEDICARE, OTHER, SELFPAY | PROVIDERS: PCP Internal Medicine Nephrology; Referring Provider Orthopaedic Surgery; Visit Provider Anesthesiology Pain Medicine | DX: M43.16 Spondylolisthesis, lumbar region (principal); S22.000A Wedge compression fracture of unspecified thoracic vertebra, initial encounter for closed fracture; S32.040A Wedge compression fracture of fourth lumbar vertebra, initial encounter for closed fracture; G62.9 Polyneuropathy, unspecified; X58.XXXA Exposure to other specified factors, initial encounter; Z79.891 Long term (current) use of opiate analgesic | CPT/HCPCS: 99205 ==

== ENCOUNTER → 2021-12-17 11:02 | Outpatient (BNVA) | payer MEDICARE, OTHER, SELFPAY | PROVIDERS: PCP Internal Medicine Nephrology; Visit Provider Internal Medicine | DX: E11.319 Type 2 diabetes mellitus with unspecified diabetic retinopathy without macular edema (principal); E11.40 Type 2 diabetes mellitus with diabetic neuropathy, unspecified; E03.9 Hypothyroidism, unspecified; N18.6 End stage renal disease; E16.0 Drug-induced hypoglycemia without coma; T38.3X5A Adverse effect of insulin and oral hypoglycemic [antidiabetic] drugs, initial encounter; Z79.4 Long term (current) use of insulin | CPT/HCPCS: 99214 ==

== ENCOUNTER 2022-01-03 13:56 | Emergency (ER) | payer MEDICARE, OTHER, SELFPAY ==
[2022-01-03 14:02] VITALS: BP 160/97; PULSE 75; RESP 18; TEMP 36.3; O2SAT 97; BMI 26.5
--- NOTE | 2022-01-03 14:25 | US_ITS ---
WS: [id number] ULTRASOUND ABDOMEN LIMITED CLINICAL INFORMATION: eval for fluid COMPARISON: None. FINDINGS: 4 quadrant ultrasound survey. No evidence of free fluid. US/US abdomen limited [id number] IMPRESSION: No evidence of free fluid
--- NOTE | 2022-01-03 14:27 | W.ED.GENADLT ---
HPI - General Adult General: Chief complaint: General Medical Stated complaint: SOB Time Seen by Provider: 01/03/22 14:07 History of Present Illness: Patient is a 71-year-old female history of CKD on dialysis Thursday/Thursday/Thursday, diabetes, hypothyroidism, CHF on torsemide who presents the emergency room for evaluation of worsening dental swelling over 2-month. Patient tells me that she is due for an ultrasound study but has not heard back the outpatient elective test. Patient has no complaints abdominal pain, nausea/vomiting, fever/chills. Patient says that she reports shortness of breath thinks that the abdominals that she is causing her shortness of breath to be worse. Patient denies any acute worsening of abdominal distention. Denies any history of cirrhosis. Patient denies any hemoptysis, hematemesis, melena/hematochezia, complaints, chest pain or palpitation. Patient tells me that she went to dialysis center earlier today. She is still able to make urine. Patient takes torsemide compliantly per prescription. No other focal complaints at this time. Onset: chronic 2 month ago Duration:2 month Location:home Severity:mild/moderate Associated symptoms: Reports dyspnea; Deny chest pain, nausea, rash, palpitations or vomiting Review of Systems Const: Denies: fever(s) or chills Eyes: Denies: change in vision ENMT: Denies: mouth pain Card: Denies: chest pain or palpitations Resp: Reports: dyspnea; Denies: non-productive cough GI: Reports: other (+abdominal distenion); Denies: abdominal pain, nausea, vomiting or diarrhea : Denies: dysuria Musc: Denies: extremity pain Skin/Breast: Denies: rash or new lesions Neuro: Denies: weakness in extremities Psych: Reports: other (Normal mood) Dave/Lymph: Denies: easy bruising PFSH ED PFSH: Medical History Cataract Chronic kidney disease (CKD) Closed fracture of left proximal humerus Hemodialysis patient History of peritoneal dialysis HTN (hypertension) Hx of breast cancer Hydronephrosis Hyperlipidemia Hypothyroidism Incomplete bladder emptying Kidney stones Microcytic anemia Obstructive pyelonephritis Type 2 diabetes mellitus Ureteral obstruction, right HX OF RIGHT URETEROSCOPY WITH STENT PLACEMENT Surgical History H/O knee surgery H/O skin graft H/O tubal ligation History of kidney surgery History of lumpectomy of left breast History of surgery Right-sided pleurodesis and Pleurx catheter placement History of surgery on arm Hx of cataract surgery Hx of tonsillectomy S/P dialysis catheter insertion Peritoneal dialysis catheter placement x3 according to patient, revisions had to be performed in [facility] at an outside facility Hemodialysis catheter placement S/P hemodialysis catheter insertion Right IJ: Removed Family History Mother Stroke Father Stroke Social History Smoking and tobacco status: never smoked Alcohol intake: never Lives independently: Yes Household members: spouse Marital status: Current occupational status: employed History of recent travel: No Current gender identity: Female Physical Exam Const: COMMON NORMALS: alert HENMT: COMMON NORMALS: atraumatic HEAD & SCALP: atraumatic MOUTH: moist mucous membranes not abnormal Eye: COMMON NORMALS: EOMs intact bilaterally and conjunctivae normal CONJUNCTIVA: Yes conjunctivae normal Neck/C-Spine: COMMON NORMALS: full ROM and supple Resp: COMMON NORMALS: normal respiratory effort and clear to auscultation bilaterally AUSCULTATION: clear to auscultation bilaterally Cardio: COMMON NORMALS: regular rate RATE: regular rate GI: COMMON NORMALS: Soft to palpation and non-tender PALPATION: Yes Soft to palpation OTHER: +moderate abdominal swelling and distenison, no focal TTP. NO guarding rebound, guarding, rigidity. No CVA tenderness to percussion. Neg Kerns/Neg McBurney's point tenderness, no suprabupic tenderness to palpation. Extremity: COMMON NORMALS: full ROM Neuro: SENSORIUM/ORIENTATION: Yes alert MOTOR EXAM: No Abnormal motor strength present and Other motor observations present (no focal motor deficits) Psych: COMMON NORMALS: speech normal SPEECH: Yes normal speech MOOD & AFFECT: Yes euthymic mood Course Vital Signs: Vital signs: Vital Signs Temperature 97.4 F L 01/03/22 14:02 Pulse Rate 75 01/03/22 14:02 Respiratory Rate 18 01/03/22 14:02 Blood Pressure 160/97 01/03/22 14:02 Pulse Oximetry 97 01/03/22 14:02 MDM - General Adult Medical Decision Making 71-year-old female with a history of CKD on dialysis, hypertension, hyperlipidemia, diabetes presented to the emergency room for evaluation of abdominal distention x2 months. On exam, patient has moderate distended abdomen. No guarding no rebound tenderness no focal tenderness palpation. Rest of vitals within normal limit. Stat ultrasound showed no large pockets of ascites requiring future paracentesis. Will obtain blood work and formal ultrasound performed since patient has not been scheduled for US. Cr appears to be improved at 2.3 with baseline 2.8-6. Ultrasound not show any focal findings including ascites. PATIENT INSTRUCTED TO FOLLOW-UP WITH DR. CLARK FOR FURTHER MANAGEMENT OF ABDOMINAL DISTENTION. Since PATIENT HAS BEEN HAVING SYMPTOMS FOR THE LAST 2-MONTH, DO NOT SUSPECT THAT THERE IS AN ACUTE PATHOLOGY AT THIS TIME. No suspicion for other acute intra-abdominal pathology including SBO, biliary pathology, appendicitis, diverticulitis, or other emergent condition requiring surgery. I have given patient follow up with our mattress spring encaser to be seen by Dr. Perla for repeat assessment. Patient aware of a call from our mattress spring encaser to schedule for appointment(s) and verbalizes understanding of the importance of following up. Disposition: Discharge. Patient counseled regarding diagnostic impression, treatment plan. Patient given ED strict return precautions to return for continuation, worsening, or development of new symptoms. Instructed to f/u w/ PCP regarding symptoms today. Patient verbalized understanding. Lab Data : 01/03/22 14:22 Radiology Impressions Abdomen Ultrasound 01/03/22 14:25 IMPRESSION: No evidence of free fluid Laboratory Results Sodium 133 mmol/L (136-145) L 01/03/22 14:22 Potassium 4.3 mmol/L (3.5-5.1) 01/03/22 14:22 Chloride 96 mmol/L (98-107) L 01/03/22 14:22 Carbon Dioxide 24 mmol/L (22-29) 01/03/22 14:22 Anion Gap 17.3 (5-19) 01/03/22 14:22 BUN 20 mg/dL (8-23) 01/03/22 14:22 Creatinine 2.3 mg/dL (0.5-0.9) H 01/03/22 14:22 GFR Calculation Not Reportable 01/03/22 14:22 Glucose 171 mg/dL (65-115) H 01/03/22 14:22 Calculated Osmolality 283 mOsm/kg (285-295) L 01/03/22 14:22 Calcium 9.4 mg/dL (8.5-10.5) 01/03/22 14:22 Total Bilirubin 0.6 mg/dL (0.15-1.2) 01/03/22 14:22 AST 14 U/L (0-32) 01/03/22 14:22 ALT 9 U/L (0-33) 01/03/22 14:22 Alkaline Phosphatase 95 IU/L (35-105) 01/03/22 14:22 Total Protein 8.3 g/dL (6.6-8.7) 01/03/22 14: Albumin 4.2 g/dL (3.5-5.2) 01/03/22 14: Globulin 4.1 g/dL (1.3-4.6) 01/03/22 14: Lipase 16 U/L (13-60) 01/03/22 14:22 Imaging Data Other Imaging: Radiologist's impression: [address] [address] Ultrasound Report Signed Patient: María Saab Unit #: [id number] : 1950 Age/Sex: 71 / F ADM Date: 01/03/22 Loc: ER Room/Bed: Attending Dr: Ordering Provider/Ordering MD: Maria Elena Livingston MD Date of Service: 01/03/22 Procedure(s): US abdomen limited [id number] Accession Number(s): [id number] Report Number: [id number] WS: [id number] ULTRASOUND ABDOMEN LIMITED CLINICAL INFORMATION: eval for fluid COMPARISON: None. FINDINGS: 4 quadrant ultrasound survey. No evidence of free fluid. US/US abdomen limited [id number] IMPRESSION: ? No evidence of free fluid ? Dictated By: Naif Jenkins MD Signed By: Naif Jenkins MD Signed Date/Time: 01/03/22 1508 DD/ 1504 Discharge Plan Discharge Patient Disposition: Home Clinical Impression: Abdominal distention Condition: Stable Prescriptions: No Action RenaPlex-D 800 mcg-12.5 mg -2,000 unit tablet 1 tab PO QAM 0RF amitriptyline 100 mg tablet 100 mg PO BEDTIME 0RF ropinirole 0.5 mg tablet 0.5 mg PO BEDTIME PRN (Reason: Restless Leg(S)) 0RF NovaSource Renal 2 Cassius 0.09 gram- 2 kcal/mL liquid 1 ea PO BID 0RF metolazone 5 mg tablet 5 mg PO DAILY@15 0RF potassium chloride 10 mEq tablet extended release 10 meq PO BID 0RF (DME) corset back brace See Rx Instructions .Route .MEDSUPPLY Qty: 1 0RF Rx Instructions: As directed hydrocodone-acetaminophen 10-325 mg tablet 1 tab PO Q6H PRN (Reason: Pain) 0RF tamsulosin 0.4 mg capsule 0.4 mg PO BID Qty: 180 3RF (DME) FreeStyle Anita 2 Sensor Kit See Rx Instructions .Route Qty: 3 3RF Rx Instructions: check blood sugar (DME) FreeStyle Anita 2 [place] Misc See Rx Instructions .Route Qty: 1 0RF Rx Instructions: check blood sugar carvedilol 3.125 mg tablet 3.125 mg PO DAILY 0RF lidocaine-prilocaine 2.5-2.5 % cream 1 applic topical . DIRECTED 0RF torsemide 100 mg tablet See Rx Instructions .ROUTE .COMPLEX 0RF Rx Instructions: 100 mg orally IN THE MORNING and 50 MG IN THE EVENING Tresiba FlexTouch U-100 100 unit/mL (3 mL) insulin pen 15 unit SUBCUT BEDTIME 0RF insulin aspart U-100 [Novolog Flexpen U-100 Insulin] 100 unit/mL (3 mL) insulin pen See Rx Instructions .ROUTE .COMPLEX 0RF Rx Instructions: 2-4 units plus moderate sliding scale before meals with max daily dose of 48 units levothyroxine 200 mcg tablet 200 mcg PO .FIVE DAYS A WEEK 0RF Rx Instructions: takes mon,,thu,,fri PreserVision AREDS-2 250-90-40-1 mg Capsule 1 tab PO BID 0RF Discharge Orders: Discharge ED (Routine); Ordered 01/03/22 Ordered By: Maria Elena Livingston Referrals: Wu Clark MD [Primary Care Provider] - Discharge Diet: Advance as tolerated Discharge Activity: Increase activity as tolerated Patient Instructions: Gas and Bloating (ED) Activity Restrictions/Additional Instructions: Please come back if you have any worsening abdominal pain, fever or chills, nausea or vomiting, diarrhea, blood in the stool, inability hold down liquid or solids, or any new concerning complaints. Coding Level of Care Code ED Launch Operator for Chg Fwd Exam Comprehensive
[2022-01-03 14:51] LABS: Alanine Aminotransferase 9 U/L (0-33); Albumin Level 4.2 g/dL (3.5-5.2); Alkaline Phosphatase 95 IU/L (35-105); Aspartate Amino Transferase 14 U/L (0-32); Blood Urea Nitrogen 20 mg/dL (8-23); Calcium 9.4 mg/dL (8.5-10.5); Carbon Dioxide 24 mmol/L (22-29); Chloride 96 mmol/L (98-107); Globulin 4.1 g/dL (1.3-4.6); Glucose 171 mg/dL (65-115); Lipase 16 U/L (13-60); Osmolality Calculated 283 mOsm/kg (285-295); Sodium 133 mmol/L (136-145); Total Bilirubin 0.6 mg/dL (0.15-1.2); Total Protein 8.3 g/dL (6.6-8.7)
[2022-01-03 14:53] LABS: Anion Gap 17.3 (5-19); Potassium 4.3 mmol/L (3.5-5.1)
[2022-01-03 15:05] VITALS: BP 172/70; PULSE 80; RESP 20; O2SAT 98
[2022-01-03 15:23] VITALS: BP 177/84; PULSE 81; RESP 18; O2SAT 98
[2022-01-03 15:33] LABS: Basophils # 0.1 10^3/uL (0.0-0.1); Basophils % 0.8 %; Eosinophils # 0.3 10^3/uL (0.0-0.8); Eosinophils % 3.5 %; Hematocrit 30.8 % (37.0-47.0); Hemoglobin 10.3 g/dL (11.5-15.3); Mean Corpuscular HGB Conc 33.4 g/dL (30.0-36.0); Mean Corpuscular Hemoglobin 30.3 pg (28.0-34.0); Mean Corpuscular Volume 90.6 fl (81-99); Mean Platelet Volume 10.7 fL (7.4-10.4); Monocytes # 0.8 10^3/uL (0.2-0.9); Monocytes % 9.2 %; Neutrophils # 6.04 10^3/uL (1.8-7.7); Nucleated Red Blood Cells % 0 %; Platelet Count 287 10^3/cmm (130-400); Red Cell Distribution Width 16.5 % (12.1-15.1); White Blood Count 8.3 10^3/uL (4.0-10.0)
--- NOTE | 2022-01-08 12:08 | DCPLANNER ---
manager business development hospice had message to speak with patient about getting a follow up appointment for patient with primary care. [facility] business development hosp[facility] unable to speak with patient or leave a voicemail for patient.
== END 2022-01-03 15:24 | disposition home or self-care (01) ==
PROVIDERS: Emergency Provider Emergency Medicine; PCP Internal Medicine Nephrology
DX: R14.0 Abdominal distension (gaseous) (principal); Z79.4 Long term (current) use of insulin; I12.9 Hypertensive chronic kidney disease with stage 1 through stage 4 chronic kidney disease, or unspecified chronic kidney disease; E11.22 Type 2 diabetes mellitus with diabetic chronic kidney disease; N18.9 Chronic kidney disease, unspecified; Z99.2 Dependence on renal dialysis; Z85.3 Personal history of malignant neoplasm of breast; E78.5 Hyperlipidemia, unspecified
CPT/HCPCS: 76705; 80053; 83690; 85025; 99283

== ENCOUNTER → 2022-01-28 10:10 | Outpatient (BNVA) | payer MEDICARE, OTHER, SELFPAY | PROVIDERS: PCP Internal Medicine Nephrology; Visit Provider Internal Medicine | DX: E11.40 Type 2 diabetes mellitus with diabetic neuropathy, unspecified (principal); E11.319 Type 2 diabetes mellitus with unspecified diabetic retinopathy without macular edema; E03.9 Hypothyroidism, unspecified; N18.6 End stage renal disease; E16.0 Drug-induced hypoglycemia without coma; T38.3X5A Adverse effect of insulin and oral hypoglycemic [antidiabetic] drugs, initial encounter; Z79.4 Long term (current) use of insulin | CPT/HCPCS: 99214 ==

== ENCOUNTER → 2022-02-04 13:08 | Outpatient (BNVA) | payer MEDICARE, OTHER, SELFPAY | PROVIDERS: PCP Internal Medicine Nephrology; Visit Provider Internal Medicine Cardiovascular Disease | DX: R14.0 Abdominal distension (gaseous) (principal); I12.9 Hypertensive chronic kidney disease with stage 1 through stage 4 chronic kidney disease, or unspecified chronic kidney disease; N18.6 End stage renal disease; E11.22 Type 2 diabetes mellitus with diabetic chronic kidney disease | CPT/HCPCS: 99213 ==

== ENCOUNTER 2022-02-28 11:05 | Outpatient (CLI) | payer MEDICARE, OTHER, SELFPAY ==
--- NOTE | 2022-02-28 11:27 | XR_ITS ---
WS: [id number] Exam: XR chest 2V* [id number] Date/Time of Exam: 02/28/2022 11:47 AM Reason For Exam: SHORT OF BREATH Comparison 07/26/2021. The lungs are clear and fully expanded. Heart size is normal. The superior mediastinum is not widened . There may be small right pleural effusion. Surgical clips along left axilla. A left subclavian port ends in the lower one third of the SVC. A right axillary artery vascular graft is noted. Old fractur e of the proximal left humerus. XR/XR chest 2V* [id number] IMPRESSION: 1. No acute cardiopulmonary finding. 2. Probable trace right basal pleural effusion.
== END 2022-02-28 11:06 | disposition home or self-care (01) ==
LOC: RAD 11:16
PROVIDERS: PCP Internal Medicine Nephrology; Visit Provider Internal Medicine Nephrology
DX: R06.02 Shortness of breath (principal)
CPT/HCPCS: 71046

== ENCOUNTER 2022-03-06 11:27 | Outpatient (CLI) | payer MEDICARE, OTHER, SELFPAY ==
--- NOTE | 2022-03-06 12:00 | USCV_ITS ---
María Saab Age: 71 Gender: F : 1950 Exam Date: 03/06/2022 11:50 Ordering Phys: Rob Garcia MD ([email or web address]) Technologist: [email or web address] [place]am [place] [facility] [place]: SOB BP: 140 / 90 HR: 79 Rhythm: Sinus Technical Quality: Adequate MEASUREMENTS (Male / Female) Normal Values 2D ECHO LVOT Diameter 2.0 cm LV Ejection Fraction MOD 2C 64.1 % LV Ejection Fraction 2C AL 64.8 % LA Diameter 3.5 cm LA Width 3.8 cm LA Height 5.3 cm RA Width 3.5 cm RA Height 4.3 cm Aorta at Sinotubular Diameter 1.7 cm M-MODE Aortic Annulus Diameter 2.8 cm LA Ao Ratio MM 1.1 DOPPLER AV Peak Velocity 184.0 cm/s LVOT Peak Velocity 125.0 cm/s AV Area Cont Eq vti 2.2 cm squared AV Area Cont Eq pk 2.2 cm squared MV Peak Velocity 211.0 cm/s MV Area PHT 5.0 cm squared Mitral E to A Ratio 1.3 MV E' Velocity 93.0 cm/s Mitral E to MV E' Ratio 28.0 Mitral E to LV E' Lateral Ratio 26.8 Mitral E to LV E' Septal Ratio 29.4 TR Peak Velocity 350.4 cm/s TR Peak Gradient 49.1 mmHg TR Mean Velocity 280.4 cm/s TR Mean Gradient 33.2 mmHg TR Velocity Time Integral 105.5 cm TV Peak E Velocity 55.0 cm/s Right Atrial Pressure 3.0 mmHg Pulmonary Artery Systolic Pressu 52.1 mmHg PV Peak Velocity 150.0 cm/s RV Acceleration Time 0.1 s RV Ejection Time 0.3 s RV AcT/ET 0.4 FINDINGS Left Ventricle The ventricle is normal in size. There is overall normal left ventricular function with an ejection fraction of about 55%. In 1 view, the parasternal short axis view there may be slight hypokinesis of the inferior posterior wall but this is not confirmed on other views. There is mild LVH with grade 2 diastolic dysfunction. Right Ventricle Normal right ventricular size and systolic function. Moderate pulmonary hypertension, RVSP 52.1 mmHg. Right Atrium Mildly increased right atrial size. Left Atrium Moderately increased left atrial size. Mitral Valve Structurally normal mitral valve. Moderate mitral valve regurgitation. Aortic Valve Structurally normal aortic valve without significant sclerosis or stenosis. There is no aortic regurgitation. Tricuspid Valve Structurally normal tricuspid valve. [id number] tricuspid valve regurgitation. Pulmonic Valve Structurally normal pulmonic valve. Mild pulmonary valve regurgitation. Pericardium Normal pericardium without effusion. Aorta Normal ascending aorta dimension. CONCLUSIONS The ventricle is normal in size. There is overall normal left ventricular function with an ejection fraction of about 55%. In 1 view, the parasternal short axis view there may be slight hypokinesis of the inferior posterior wall but this is not confirmed on other views. There is mild LVH with grade 2 diastolic dysfunction. Normal right ventricular size and systolic function. Moderate pulmonary hypertension, RVSP 52.1 mmHg. Mildly increased right atrial size. Moderately increased left atrial size. Structurally normal mitral valve. Moderate mitral valve regurgitation. No change from prior study. Dr. Rob Garcia MD (Electronically Signed) Final Date: 07 March 2022 13:57 S
== END 2022-03-06 11:28 | disposition home or self-care (01) ==
LOC: RAD 11:34
PROVIDERS: PCP Internal Medicine Nephrology; Visit Provider Internal Medicine Cardiovascular Disease
DX: I27.20 Pulmonary hypertension, unspecified (principal); I51.7 Cardiomegaly; I34.0 Nonrheumatic mitral (valve) insufficiency
CPT/HCPCS: 93306

== ENCOUNTER → 2022-03-25 14:13 | Outpatient (BNVA) | payer MEDICARE, OTHER, SELFPAY | PROVIDERS: PCP Internal Medicine Nephrology; Visit Provider Nurse Practitioner Family | DX: I51.89 Other ill-defined heart diseases (principal) | CPT/HCPCS: 99213 ==

== ENCOUNTER → 2022-04-03 09:58 | Outpatient (BNVA) | payer MEDICARE, OTHER, SELFPAY | PROVIDERS: PCP Internal Medicine Nephrology; Visit Provider Internal Medicine Critical Care Medicine | DX: R06.02 Shortness of breath (principal); E78.5 Hyperlipidemia, unspecified; E03.9 Hypothyroidism, unspecified; E11.8 Type 2 diabetes mellitus with unspecified complications; N18.9 Chronic kidney disease, unspecified | CPT/HCPCS: 99213 ==

== ENCOUNTER → 2022-04-15 14:50 | Outpatient (BNVA) | payer MEDICARE, OTHER, SELFPAY | PROVIDERS: PCP Internal Medicine Nephrology; Visit Provider Internal Medicine | DX: E11.319 Type 2 diabetes mellitus with unspecified diabetic retinopathy without macular edema (principal); E11.40 Type 2 diabetes mellitus with diabetic neuropathy, unspecified; E11.65 Type 2 diabetes mellitus with hyperglycemia; E11.22 Type 2 diabetes mellitus with diabetic chronic kidney disease; E11.649 Type 2 diabetes mellitus with hypoglycemia without coma; E16.0 Drug-induced hypoglycemia without coma; E03.9 Hypothyroidism, unspecified; N18.6 End stage renal disease; T38.3X5A Adverse effect of insulin and oral hypoglycemic [antidiabetic] drugs, initial encounter; Z79.4 Long term (current) use of insulin | CPT/HCPCS: 99214 ==

== ENCOUNTER 2022-07-18 11:48 | Day surgery (SDC) | payer MEDICARE, OTHER, SELFPAY ==
[2022-07-18] VITALS (12 sets, daily range): BP systolic 117–152; BP diastolic 45–78; PULSE 73–82; RESP 16–19; TEMP 36.7–37.4; O2SAT 90–99; BMI 27.3
[2022-07-18 13:52] LABS: Hematocrit 16.7 % (37.0-47.0); Hemoglobin 5.3 g/dL (11.5-15.3)
--- NOTE | 2022-07-18 20:35 | PM.HP ---
Providers/Chief Complaint Primary Care Provider: Wu Clark MD History of Present Illness María Saab is a 72 year old female who has history of hemodialysis dependent end-stage renal disease failed peritoneal dialysis, recurrent right-sided pleural effusion follows up with Dr. Hinkle has undergone pleurodesis was sent to GI lab Dr. Clark for blood transfusion, status post 2 unit PRBC, is being admitted because at the time of discharge patient had an episode of hematochezia. She was admitted outpatient to get blood transfusion for hemoglobin 5.3 however decision was made to admit her as observation because of hematochezia. Patient is hemodynamically stable. Patient recently had GI surgery at [facility] by Dr. Whittaker, patient is stating there was a polyp in her appendix which was thought to be precancerous and 3 inches of colon was removed as well she does not know the details but stating that since her surgery she has been experiencing intermittent bright bleed per rectum. She is also noticing some abdominal bloating which is chronic even before her surgery she is describing it as watermelon belly. No history of liver cirrhosis. Today when she was about to go home she had an episode of bright bleed per rectum with fresh big chunks of clots. I have requested Protonix 40 mg IV twice daily, we will keep her n.p.o., check H&H in the morning, she is hemodynamically stable Hold antiplatelet regimen, Check iron panel, B12 level Review of Systems Const: Reports: fatigue Eyes: Denies: change in vision ENMT: Denies: throat pain Card: Denies: chest pain Resp: Reports: dyspnea GI: Reports: nausea and hematochezia : Denies: flank pain Musc: Denies: neck pain Skin/Breast: Denies: rash Neuro: Denies: headache(s) Psych: Reports: anxiety Endo: Denies: polyuria Dave/Lymph: Denies: easy bruising All/Imm: Denies: urticaria Medications/Allergies Home Medications Medication Instructions Recorded Confirmed Last Taken Type metolazone 5 mg tablet 5 mg PO DAILY@15 11/28/19 07/18/22 07/18/22 History torsemide 100 mg tablet 100 mg PO DAILY 01/10/20 07/18/22 07/18/22 History amitriptyline 100 mg tablet 100 mg PO BEDTIME 11/07/18/22 07/18/22 History nut.tx.impaired renal fxn,soy 0.09 1 ea PO BID 10/02/20 07/18/22 07/18/22 History gram-2 kcal/mL oral liquid ([facility] Renal 2 Cassius) vit B,C-folic ac 800 mcg-zinc 12.5 1 tab PO QAM 10/02/20 07/18/22 07/18/22 History mg-selen-D3 2,000 unit-vit E tablet (RenaPlex-D) flash glucose scanning reader #1 ea 03/15/21 07/18/22 07/18/22 Rx (FreeStyle Anita 2 Porter) flash glucose sensor (FreeStyle #3 ea 03/15/21 07/18/22 07/18/22 Rx Anita 2 Sensor) insulin aspart U-100 100 unit/mL See Rx Instructions .Route 06/10/21 07/18/22 07/18/22 History (3 mL) subcutaneous pen (Novolog .COMPLEX see pharamacy comments-pt Flexpen U-100 Insulin aspart) states she hasnt used for a couple weeks levothyroxine 200 mcg tablet 200 mcg PO .FIVE DAYS A WEEK 07/26/21 07/18/22 07/18/22 History vit C 250 mg-vit E 90 mg-zinc 40 1 tab PO BID 07/26/21 07/18/22 07/18/22 History mg-copper 1 br-[id number]-[id number] capsule (PreserVision AREDS-2) hydrocodone 10 mg-acetaminophen 1 tab PO Q6H PRN Pain 09/10/21 07/18/22 07/18/22 History 325 mg tablet lidocaine-prilocaine 2.5 %-2.5 % 1 applic topical . DIRECTED 01/03/22 07/18/22 07/18/22 History topical cream carvedilol 3.125 mg tablet 3.125 mg PO DIRECTED 02/04/22 07/18/22 07/18/22 History insulin degludec 100 unit/mL (3 12 unit SUBCUT DIRECTED see 02/04/22 07/18/22 07/18/22 History mL) subcutaneous pen ([facility] pharmacy comments FlexTouch U-100 insulin) ropinirole 0.5 mg tablet 1 mg PO BEDTIME PRN Restless Leg(S) 05/26/22 09/09/22 09/09/22 History tamsulosin 0.4 mg capsule 0.4 mg PO BID 07/18/22 07/18/22 07/18/22 History Allergies Allergy/AdvReac Type Severity Reaction Status Date / Time Penicillins Allergy Mild ALGY-Rash Verified 04/15/22 15:11 propoxyphene [From Darvon] Allergy Mild ALGY-Rash Verified 04/15/22 15:11 codeine Allergy ALGY-Rash Verified 04/15/22 15:11 PFSH Acute PFSH: Medical History Abdominal bloating Cataract Chronic kidney disease (CKD) Closed fracture of left proximal humerus Hemodialysis patient History of peritoneal dialysis HTN (hypertension) Hx of breast cancer Hydronephrosis Hyperlipidemia Hypothyroidism Incomplete bladder emptying Kidney stones Microcytic anemia Obstructive pyelonephritis SOB (shortness of breath) Type 2 diabetes mellitus Ureteral obstruction, right HX OF RIGHT URETEROSCOPY WITH STENT PLACEMENT Surgical History H/O knee surgery H/O skin graft H/O tubal ligation History of kidney surgery History of lumpectomy of left breast History of surgery Right-sided pleurodesis and Pleurx catheter placement History of surgery on arm Hx of cataract surgery Hx of tonsillectomy S/P dialysis catheter insertion Peritoneal dialysis catheter placement x3 according to patient, revisions had to be performed in [facility] at an outside facility Hemodialysis catheter placement S/P hemodialysis catheter insertion Right IJ: Removed Family History Mother Stroke Father Stroke Social History Smoking and tobacco status: never smoked Alcohol intake: never Lives independently: Yes Household members: spouse Marital status: Current occupational status: employed History of recent travel: No Current gender identity: Female Vitals/I&O/Wt Last Vital Signs Temp 98.9 F 07/18/22 20:00 Pulse 75 07/18/22 20:00 Resp 18 07/18/22 20:00 BP 139/60 07/18/22 20:00 Pulse Ox 99 07/18/22 20:00 O2 Del Method 07/18/22 15:54 07/18/22 07/18/22 07/18/22 06:59 14:59 22:59 Intake Total 250 / 250 Balance 250 / 250 Weight last 48 hrs Weight 69.853 kg Physical Exam Narrative: Patient is laying supine Hemodynamically stable No acute tachycardia Awake and alert Abdomen is soft No signs of peritonitis Bowel sound present Right arm AV fistula Currently euvolemic Awake and alert Currently on room air No audible stridor or wheezing No sign of congestive heart failure Awake and alert Nonfocal neuro exam Data : 07/18/22 12:15 A&P Assessment and plan (1) Diabetes type 2, uncontrolled: Status: Acute Qualifiers: Glycemic state: with hyperglycemia Qualified Code(s): E11.65 - Type 2 diabetes mellitus with hyperglycemia (2) Abdominal bloating: Status: Acute (3) Diabetic neuropathy: Status: Acute (4) Hematochezia: Status: Acute (5) Precancerous lesion: Status: Acute Plan Hematochezia Acute blood loss normocytic anemia Hemodynamically stable Hemodialysis dependent Hemoglobin 5.3 Check CBC, iron panel, B12 panel SCDs for DVT prophylaxis N.p.o. Protonix 40 mg IV twice daily Hold Antihypertensive regimen She carries history of diabetes, we will keep her on sliding scale for now Full code N.p.o. Follows up with Dr. Clark Hypothyroidism: Takes levothyroxine 200 mcg 5 days a week With her recent GI surgery she might need CTA abdomen pelvis to rule out postsurgical complications however I did tell the patient that she might need to go back to [facility] if there are any postoperative complication detected on this CAT scan, she is agreeable and wants to stay overnight for observation We will get records from [place] I did tell her that it is probably late to arrange CAT scan of the abdomen with angiogram because she will need dialysis afterwards it is better to do it in the morning Attestations Medical Necessity Statement*: Anticipating discharge within 48 hours will need evaluation for hematochezia and severe anemia Time Spent in Patient Care: 40 Coding Level of Care Code Acute [employer] Operator 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
[2022-07-18] MEDS: sodium chloride 0.9% 250 ML 30 ML IV (21:00)
[2022-07-18 21:46] LABS: Glucose Point of Care 256 mg/dL (70-110)
[2022-07-19] VITALS (16 sets, daily range): BP systolic 130–177; BP diastolic 53–81; PULSE 68–77; RESP 16–19; TEMP 36.6–37.2; O2SAT 92–98
[2022-07-19 04:54] LABS: Basophils # 0.1 10^3/uL (0.0-0.1); Basophils % 0.8 %; Eosinophils # 0.2 10^3/uL (0.0-0.8); Lymphocytes # 0.9 10^3/uL (0.8-4.8); Lymphocytes % 15.2 %; Mean Corpuscular HGB Conc 32.8 g/dL (30.0-36.0); Mean Corpuscular Volume 94.7 fl (81-99); Monocytes # 0.6 10^3/uL (0.2-0.9); Monocytes % 9.9 %; Neutrophils % 69.4 %; Nucleated Red Blood Cells % 0.5 %; Platelet Count 144 10^3/cmm (130-400); Red Blood Count 1.87 10^6/uL (4.1-5.3); Red Cell Distribution Width 16.3 % (12.1-15.1); White Blood Count 6.1 10^3/uL (4.0-10.0)
[2022-07-19 05:33] LABS: Anion Gap 11.8 (5-19); Blood Urea Nitrogen 30 mg/dL (8-23); Calcium 7.8 mg/dL (8.5-10.5); Carbon Dioxide 30 mmol/L (22-29); Chloride 99 mmol/L (98-107); Glucose 201 mg/dL (65-115); Iron 39 ug/dL (37-145); Magnesium 1.8 mg/dL (1.7-2.3); Osmolality Calculated 296 mOsm/kg (285-295); Percent Saturation 36.4 % (20-50); Potassium 3.8 mmol/L (3.5-5.1); Sodium 137 mmol/L (136-145); Total Iron Binding Capacity 107 mcg/dl; Unsaturated Iron Binding 68 ug/dL (112-347)
[2022-07-19 05:39] LABS: Vitamin B12 936 pg/mL (232-1245)
[2022-07-19 05:59] LABS: Ferritin 1521 ng/mL (15-150)
[2022-07-19 06:14] LABS: Hematocrit 17.7 % (37.0-47.0); Hemoglobin 5.8 g/dL (11.5-15.3)
[2022-07-19 06:35] LABS: Iron 38 ug/dL (37-145)
--- NOTE | 2022-07-19 07:18 | CTR_ITS ---
PROCEDURE INFORMATION: Exam: CT Abdomen And Pelvis Without Contrast Exam date and time: 07/19/2022 7:39 AM Age: 72 years old Clinical indication: Condition or disease; Intestinal condition; Other: Hematochezia; Prior surgery; Surgery date: <1 month; Surgery type: Colon resection TECHNIQUE: Imaging protocol: Computed tomography of the abdomen and pelvis without contrast. Radiation optimization: All CT scans at this facility use at least one of these dose optimization techniques: automated exposure control; mA and/or kV adjustment per patient size (includes targeted exams where dose is matched to clinical indication); or iterative reconstruction. COMPARISON: CT abdomen pelvis con [id number] 07/26/2021 11:12 AM RADIATION DOSE METRICS: Total DLP (mGy-cm): 528.19 FINDINGS: Pleural spaces: Bilateral small layering pleural effusions, left greater than right. Chronic right posterior basilar pleural calcification. Liver: Normal. Gallbladder and bile ducts: Cholecystectomy. Pancreas: Normal. No ductal dilation. Spleen: Normal. No splenomegaly. Adrenal glands: Low-density thickening of the right adrenal gland is unchanged. No discrete nodule. Kidneys and ureters: No hydronephrosis or urinary tract calculi identified. No change subcentimeter rounded hyperdense lesion at the left renal midpole compatible with hyperdense cyst but not further characterized without contrast. Stomach and bowel: Interval right hemicolectomy with mild surrounding stranding. No fluid collection or free air. No bowel obstruction or focal inflammation identified. Appendix: Appendix not present. Intraperitoneal space: See Stomach and bowel finding. Vasculature: Extensive atherosclerotic calcification. No abdominal aortic aneurysm. Lymph nodes: Unremarkable. No enlarged lymph nodes. Urinary bladder: Bladder well distended. No stones. Reproductive: Unremarkable as visualized. Bones/joints: Osteopenia. Severe compression fracture of T12 and mild compression fracture inferior endplate L1 are favored to be chronic though were not present on the July 26 2021 comparison. Chronic superior endplate compression fracture of L4. Soft tissues: Bilateral small fat containing inguinal hernias. Ventral midline laparotomy scar with minimal air within the subcutaneous tissues to the left midline. No fluid collection. CT/CT abdomen pelvis con [id number] IMPRESSION: 1. Right hemicolectomy with mild nonspecific surrounding stranding which may simply be postoperative in nature; no discrete fluid collection. Bowel otherwise unremarkable on noncontrast CT. 2. Minimal subcutaneous air to the left of ventral laparotomy scar. No fluid collection. 3. Small pleural effusions, left greater than right, similar to prior. Right pleural calcification again noted. 4. Incidental stable subcentimeter hyperdense left renal lesion compatible with hyperdense cyst though not further characterized without contrast. 5. Compression fractures of T12 and L1 are favored to be chronic but were not present July 26, 2021. Chronic L4 compression fracture is unchanged. 6. Other chronic and incidental findings as described.
[2022-07-19 07:59] LABS: Glucose Point of Care 235 mg/dL (70-110)
[2022-07-19] MEDS: pantoprazole 40 mg SDV IVP (09:28)
[2022-07-19] MEDS: sodium chloride 0.9% 250 ML 10 ML IV (09:47)
[2022-07-19 11:14] LABS: Glucose Point of Care 205 mg/dL (70-110)
[2022-07-19 13:23] LABS: Basophils % 0.7 %; Eosinophils # 0.4 10^3/uL (0.0-0.8); Hematocrit 22.5 % (37.0-47.0); Hemoglobin 7.5 g/dL (11.5-15.3); Lymphocytes # 0.9 10^3/uL (0.8-4.8); Lymphocytes % 15.4 %; Mean Corpuscular HGB Conc 33.3 g/dL (30.0-36.0); Mean Corpuscular Hemoglobin 30.7 pg (28.0-34.0); Mean Corpuscular Volume 92.2 fl (81-99); Mean Platelet Volume 11.8 fL (7.4-10.4); Monocytes # 0.6 10^3/uL (0.2-0.9); Monocytes % 9.9 %; Neutrophils # 4.01 10^3/uL (1.8-7.7); Neutrophils % 67.3 %; Nucleated Red Blood Cells % 0.5 %; Platelet Count 158 10^3/cmm (130-400); Red Blood Count 2.44 10^6/uL (4.1-5.3); Red Cell Distribution Width 15.8 % (12.1-15.1)
[2022-07-19 14:00] LABS: INR 1.11 (0.8-1.2)
[2022-07-19 14:01] LABS: Partial Thromboplastin Time 32.4 SECONDS (23.9-36.7)
[2022-07-19 14:03] LABS: D Dimer 0.78 ug/mIFEU (0-0.59)
[2022-07-19] MEDS: sodium chloride 0.9% 250 ML 30 ML IV (14:12)
--- NOTE | 2022-07-19 14:30 | PM.TDS ---
Transfer Summary Providers Date of Admission: 07/18/2022 Date of Discharge/Transfer: 07/19/22 Attending Provider at Admission: Kristy Rodriguez MD Attending Provider at Transfer: Naif Gagnon MD Consults: None Primary Care Provider: Wu Clark MD Transfer Plans: Anticipated date of transfer: 07/19/22. Receiving Facility: [facility] in [facility]. Receiving Provider: Dr. Nielsen. Additional transfer facility information: Going to [facility] with plans for CTA and interventional radiology to stop recurrent lower GI bleeding. Diagnoses at Discharge Discharge Diagnosis (1) Lower GI bleed requiring more than 4 units of blood in 24 hours, ICU, or surgery: Details from hospital stay: Patient with hemoglobin 5.2 yesterday received 2 units of packed red cells in the outpatient infusion and subsequent hemoglobin 5.8 was referred to hospitalist for admission and received additional unit of blood with hemoglobin now seven-point 5/4 unit of blood being transfused and she is transferred to [facility] for probable CT angiogram and interventional radiology to stop lower GI bleed Status: Acute (2) Hematochezia: Details from hospital stay: She states that in the last 1 hour bright red blood from rectum has slowed or stopped At no time was this bright red blood from rectum overtly smelly in the room suggesting a fairly distal bleed however not consistent with location for appendectomy which would be near the cecum Status: Acute (3) Diabetes type 2, uncontrolled: Details from hospital stay: Stable Status: Acute Qualifiers: Glycemic state: with hyperglycemia Qualified Code(s): E11.65 - Type 2 diabetes mellitus with hyperglycemia (4) Abdominal bloating: Details from hospital stay: Recent chronic concern for the patient Status: Acute (5) Diabetic neuropathy: Details from hospital stay: Unchanged Status: Acute Reason for Visit Reason for Visit Bright red blood per rectum Brief History: 72-year-old female is a patient of Dr. Whittaker and underwent laparoscopic appendectomy on 07/10/2022 for concerning appendiceal polyp. This ended up being benign. The patient had some postoperative hematochezia with hemoglobin drop below 6 and was transfused 2 unit and hemoglobin became stable. She was discharged with intended follow-up on 08/05/2022 She is on chronic hemodialysis and was noted to have hemoglobin 5.2 was sent to outpatient infusion for 2 units of blood and follow-up hemoglobin 5.8. She was then referred to hospitalist service for admission and additional blood but continues to have bright red blood per rectum and is too many days from her recent surgery for this to be considered likely to heal without intervention Hospital Course Hospital Course Patient received a total of 3 units packed red cells and hemoglobin 7.5 PT PTT normal dimer only minimally elevated. She is hemodynamically stable and not actively pooping blood although she did throughout the night and only stopped in the last 1-1/2 hours. She has been accepted to the care of Dr. Castellanos on-call for Dr. Whittaker and will be transferred via ground ambulance to [facility] at this time Physical Exam Narrative: General well-developed well-nourished modestly overweight female no acute cardiopulmonary distress CV regular rate and rhythm Lungs clear to auscultation bilateral Abdomen diminished bowel tones soft nontender no rebound Calves no tenderness cords pedal edema No significant stool odor in the room TS Data Studies Completed and Pending Labs from last 24 hours 07/19/22 07/19/22 07/19/22 13:00 13:00 11:12 WBC 6.0 RBC 2.44 L Hgb 7.5 L Hct 22.5 L MCV 92.2 MCH 30.7 MCHC 33.3 RDW 15.8 H Plt Count 158 MPV 11.8 H Neut % (Auto) 67.3 Lymph % (Auto) 15.4 Mcpherson % (Auto) 9.9 Eos % (Auto) 6.0 Baso % (Auto) 0.7 Neut # (Auto) 4.01 Lymph # (Auto) 0.9 Mcpherson # (Auto) 0.6 Eos # (Auto) 0.4 Baso # (Auto) 0.0 Nucleated RBC % (auto) 0.5 Nucleated RBCs # 0.0 PT 14.60 INR 1.11 APTT 32.4 D-Dimer 0.78 H Sodium Potassium Chloride Carbon Dioxide Anion Gap BUN Creatinine GFR Calculation Glucose POC Glucose 205 H Calculated Osmolality Calcium Magnesium Iron TIBC % Saturation Unsat Iron Binding Ferritin Vitamin B12 Blood Type Rho(D) Type Antibody Screen Crossmatch 07/19/22 07/19/22 07/19/22 07:56 04:25 04:25 WBC 6.1 RBC 1.87 L Hgb 5.8 L* Hct 17.7 L* MCV 94.7 MCH 31.0 MCHC 32.8 RDW 16.3 H Plt Count 144 MPV 12.0 H Neut % (Auto) 69.4 Lymph % (Auto) 15.2 Mcpherson % (Auto) 9.9 Eos % (Auto) 4.0 Baso % (Auto) 0.8 Neut # (Auto) 4.20 Lymph # (Auto) 0.9 Mcpherson # (Auto) 0.6 Eos # (Auto) 0.2 Baso # (Auto) 0.1 Nucleated RBC % (auto) 0.5 Nucleated RBCs # 0.0 PT INR APTT D-Dimer Sodium 137 Potassium 3.8 Chloride 99 Carbon Dioxide 30 H Anion Gap 11.8 BUN 30 H Creatinine 2.8 H GFR Calculation Not Reportable Glucose 201 H POC Glucose 235 H Calculated Osmolality 296 H Calcium 7.8 L Magnesium 1.8 Iron 39 TIBC 107 % Saturation 36.4 Unsat Iron Binding 68 L Ferritin 1521 H Vitamin B12 936 Blood Type Rho(D) Type Antibody Screen Crossmatch 07/18/22 07/18/22 07/18/22 21:18 12:15 04:25 WBC RBC Hgb Hct MCV MCH MCHC RDW Plt Count MPV Neut % (Auto) Lymph % (Auto) Mcpherson % (Auto) Eos % (Auto) Baso % (Auto) Neut # (Auto) Lymph # (Auto) Mcpherson # (Auto) Eos # (Auto) Baso # (Auto) Nucleated RBC % (auto) Nucleated RBCs # PT INR APTT D-Dimer Sodium Potassium Chloride Carbon Dioxide Anion Gap BUN Creatinine GFR Calculation Glucose POC Glucose 256 H Calculated Osmolality Calcium Magnesium Iron 38 TIBC % Saturation Unsat Iron Binding Ferritin Vitamin B12 Blood Type A Positive Rho(D) Type Positive Antibody Screen Negative Crossmatch See Detail Completed Studies During Hospitalization Category Date Time Status CT abdomen pelvis wo con [id number] Routine Cat Scan 07/19/22 07:18 Completed Laboratory Last Values WBC 6.0 10^3/uL (4.0-10.0) 07/19/22 13:00 RBC 2.44 10^6/uL (4.1-5.3) L 07/19/22 13:00 Hgb 7.5 g/dL (11.5-15.3) L 07/19/22 13:00 Hct 22.5 % (37.0-47.0) L 07/19/22 13:00 MCV 92.2 fl (81-99) 07/19/22 13:00 MCH 30.7 pg (28.0-34.0) 07/19/22 13:00 MCHC 33.3 g/dL (30.0-36.0) 07/19/22 13:00 RDW 15.8 % (12.1-15.1) H 07/19/22 13:00 Plt Count 158 10^3/cmm (130-400) 07/19/22 13:00 MPV 11.8 fL (7.4-10.4) H 07/19/22 13:00 Neut % (Auto) 67.3 % 07/19/22 13:00 Lymph % (Auto) 15.4 % 07/19/22 13:00 Mcpherson % (Auto) 9.9 % 07/19/22 13:00 Eos % (Auto) 6.0 % 07/19/22 13:00 Baso % (Auto) 0.7 % 07/19/22 13:00 Neut # (Auto) 4.01 10^3/uL (1.8-7.7) 07/19/22 13:00 Lymph # (Auto) 0.9 10^3/uL (0.8-4.8) 07/19/22 13:00 Mcpherson # (Auto) 0.6 10^3/uL (0.2-0.9) 07/19/22 13:00 Eos # (Auto) 0.4 10^3/uL (0.0-0.8) 07/19/22 13:00 Baso # (Auto) 0.0 10^3/uL (0.0-0.1) 07/19/22 13:00 Nucleated RBC % (auto) 0.5 % 07/19/22 13:00 Nucleated RBCs # 0.0 /100WBC 07/19/22 13:00 PT 14.60 SECONDS (12.1-14.9) 07/19/22 13:00 INR 1.11 (0.8-1.2) 07/19/22 13:00 APTT 32.4 SECONDS (23.9-36.7) 07/19/22 13:00 D-Dimer 0.78 ug/mIFEU (0-0.59) H 07/19/22 13:00 Sodium 137 mmol/L (136-145) 07/19/22 04:25 Potassium 3.8 mmol/L (3.5-5.1) 07/19/22 04:25 Chloride 99 mmol/L (98-107) 07/19/22 04:25 Carbon Dioxide 30 mmol/L (22-29) H 07/19/22 04:25 Anion Gap 11.8 (5-19) 07/19/22 04:25 BUN 30 mg/dL (8-23) H 07/19/22 04:25 Creatinine 2.8 mg/dL (0.5-0.9) H 07/19/22 04:25 GFR Calculation Not Reportable 07/19/22 04:25 Glucose 201 mg/dL (65-115) H 07/19/22 04:25 POC Glucose 205 mg/dL (70-110) H 07/19/22 11:12 Calculated Osmolality 296 mOsm/kg (285-295) H 07/19/22 04:25 Calcium 7.8 mg/dL (8.5-10.5) L 07/19/22 04:25 Magnesium 1.8 mg/dL (1.7-2.3) 07/19/22 04:25 Iron 39 ug/dL (37-145) 07/19/22 04:25 TIBC 107 mcg/dl 07/19/22 04:25 % Saturation 36.4 % (20-50) 07/19/22 04:25 Unsat Iron Binding 68 ug/dL (112-347) L 07/19/22 04:25 Ferritin 1521 ng/mL (15-150) H 07/19/22 04:25 Vitamin B12 936 pg/mL (232-1245) 07/19/22 04:25 Blood Type A Positive 07/18/22 12:15 Rho(D) Type Positive 07/18/22 12:15 Antibody Screen Negative 07/18/22 12:15 Crossmatch See Detail 07/18/22 12:15 Radiology Impressions Abdomen/Pelvis CT 07/19/22 07:18 IMPRESSION: 1. Right hemicolectomy with mild nonspecific surrounding stranding which may simply be postoperative in nature; no discrete fluid collection. Bowel otherwise unremarkable on noncontrast CT. 2. Minimal subcutaneous air to the left of ventral laparotomy scar. No fluid collection. 3. Small pleural effusions, left greater than right, similar to prior. Right pleural calcification again noted. 4. Incidental stable subcentimeter hyperdense left renal lesion compatible with hyperdense cyst though not further characterized without contrast. 5. Compression fractures of T12 and L1 are favored to be chronic but were not present July 26, 2021. Chronic L4 compression fracture is unchanged. 6. Other chronic and incidental findings as described. Recent Clincial Data Last Vital Signs Temp 98.1 F 07/19/22 14:14 Pulse 72 07/19/22 14:14 Resp 16 07/19/22 14:14 BP 162/67 07/19/22 14:14 Pulse Ox 93 07/19/22 14:14 O2 Del Method 07/19/22 08:02 Vital Signs Temp Pulse Resp BP Pulse Ox O2 Del Method 07/19/22 14:14 98.1 F 72 16 162/67 93 07/19/22 12:30 98.9 F 69 16 159/71 95 07/19/22 12:21 98.9 F 69 16 159/71 95 07/19/22 11:21 98.1 F 69 16 135/62 07/19/22 10:21 98.0 F 68 16 145/53 07/19/22 10:06 98.6 F 69 16 155/76 07/19/22 09:49 98.3 F 69 16 163/81 07/19/22 07:19 71 18 96 Room Air 07/19/22 08:02 97.8 F 73 17 162/70 98 Room Air 07/19/22 04:00 98.6 F 71 17 130/58 95 Intake & Output/Weight 07/17/22 07/18/22 07/19/22 07/20/22 06:59 06:59 06:59 06:59 Intake Total 650 / 650 350 / 350 Balance 650 / 650 350 / 350 Weight 73.437 kg Vitals Last Vital Signs Temp 98.1 F 07/19/22 14:14 Pulse 72 07/19/22 14:14 Resp 16 07/19/22 14:14 BP 162/67 07/19/22 14:14 Pulse Ox 93 07/19/22 14:14 O2 Del Method 07/19/22 08:02 TS Medications Medications Acetaminophen (Acetaminophen 500 Mg Tablet) 500 mg PO Q4H PRN PRN Reason: fever Albuterol/Ipratropium (Ipratropium-Albuterol 3 Ml Neb) 3 ml INHALATION Q6H PRN PRN Reason: SHORTNESS OF BREATH Dextrose (Dextrose 50% Syringe 50 Ml) 25 ml IVP ONCE PRN; Protocol PRN Reason: hypoglycemia protocol Dextrose (Dextrose 50% Syringe 50 Ml) 50 ml IVP PRN PRN; Protocol PRN Reason: hypoglycemia protocol Glucagon (Glucagon 1 Mg/Ml Inj 1 Ml) 1 mg IM ONCE PRN; Protocol PRN Reason: Adult Acute Hypoglycemia Prot. Dextrose (D5w) 500 mls @ 100 mls/hr IV ONCE PRN; Protocol PRN Reason: Adult Acute Hypoglycemia Prot Sodium Chloride (Sodium Chloride 0.9%) 250 mls @ 30 mls/hr IV .Q8H20M [facility] Last Admin: 07/19/22 09:47 Dose: 10 mls/hr Sodium Chloride (Sodium Chloride 0.9%) 250 mls @ 30 mls/hr IV .Q8H20M [facility] Last Admin: 07/19/22 14:12 Dose: 30 mls/hr Insulin Human Lispro (Insulin Lispro 100 Unit/1 Ml) 0 unit SUBCUT TIDWM [facility]; Protocol Last Admin: 07/19/22 11:19 Dose: Not Given Ondansetron HCl (Ondansetron 2 Mg/Ml Sdv 2 Ml) 4 mg IVP Q6H PRN PRN Reason: NAUSEA AND VOMITING Pantoprazole Sodium (Pantoprazole 40 Mg Sdv) 40 mg IVP BID [facility] Last Admin: 07/19/22 09:28 Dose: 40 mg Discontinued Medications Sodium Chloride (Sodium Chloride 0.9%) 250 mls @ 30 mls/hr IV .Q8H20M ONE Stop: 07/19/22 00:19 Last Infusion: 07/19/22 04:30 Dose: Infused Allergies Penicillins Allergy (Mild, Verified 04/15/22 15:11) ALGY-Rash propoxyphene [From Darvon] Allergy (Mild, Verified 04/15/22 15:11) ALGY-Rash codeine Allergy (Verified 04/15/22 15:11) ALGY-Rash Home Medications metolazone 5 mg tablet 5 mg PO DAILY@15 11/28/19 [History Confirmed 07/18/22] torsemide 100 mg tablet 100 mg PO DAILY 01/10/20 [History Confirmed 07/18/22] amitriptyline 100 mg tablet 100 mg PO BEDTIME 10/02/20 [History Confirmed 07/18/22] nut.tx.impaired renal fxn,soy 0.09 gram-2 kcal/mL oral liquid (NovaSource Renal 2 Cassius) 1 ea PO BID 10/02/20 [History Confirmed 07/18/22] vit B,C-folic ac 800 mcg-zinc 12.5 mg-selen-D3 2,000 unit-vit E tablet (RenaPlex-D) 1 tab PO QAM 10/02/20 [History Confirmed 07/18/22] flash glucose scanning reader (MapMyFitnessStyle Anita 2 [place]) #1 ea 03/15/21 [Rx Confirmed 07/18/22] flash glucose sensor (FreeStyle Anita 2 Sensor) #3 ea 03/15/21 [Rx Confirmed 07/18/22] insulin aspart U-100 100 unit/mL (3 mL) subcutaneous pen (Novolog Flexpen U-100 Insulin aspart) See Rx Instructions .Route .COMPLEX see pharamacy comments-pt states she hasnt used for a couple weeks 06/10/21 [History Confirmed 07/18/22] levothyroxine 200 mcg tablet 200 mcg PO .FIVE DAYS A WEEK 07/26/21 [History Confirmed 07/18/22] vit C 250 mg-vit E 90 mg-zinc 40 mg-copper 1 [id number] capsule (PreserVision AREDS-2) 1 tab PO BID 07/26/21 [History Confirmed 07/18/22] hydrocodone 10 mg-acetaminophen 325 mg tablet 1 tab PO Q6H PRN Pain 09/10/21 [History Confirmed 07/18/22] lidocaine-prilocaine 2.5 %-2.5 % topical cream 1 applic topical . DIRECTED 01/03/22 [History Confirmed 07/18/22] carvedilol 3.125 mg tablet 3.125 mg PO DIRECTED 02/04/22 [History Confirmed 07/18/22] insulin degludec 100 unit/mL (3 mL) subcutaneous pen (Tresiba FlexTouch U-100 insulin) 12 unit SUBCUT DIRECTED see pharmacy comments 02/04/22 [History Confirmed 07/18/22] ropinirole 0.5 mg tablet 1 mg PO BEDTIME PRN Restless Leg(S) 04/03/22 [History Confirmed 07/18/22] tamsulosin 0.4 mg capsule 0.4 mg PO BID 07/18/22 [History Confirmed 07/18/22] Discharge Plan Discharge Patient Disposition: Home Condition: Stable Prescriptions: No Action RenaPlex-D 800 mcg-12.5 mg -2,000 unit tablet 1 tab PO QAM amitriptyline 100 mg tablet 100 mg PO BEDTIME NovaSource Renal 2 Cassius 0.09 gram- 2 kcal/mL liquid 1 ea PO BID ropinirole 0.5 mg tablet 1 mg PO BEDTIME PRN (Reason: Restless Leg(S)) metolazone 5 mg tablet 5 mg PO DAILY@15 hydrocodone-acetaminophen 10-325 mg tablet 1 tab PO Q6H PRN (Reason: Pain) (DME) FreeStyle Anita 2 Sensor Kit See Rx Instructions .Route Qty: 3 3RF Rx Instructions: check blood sugar (DME) FreeStyle Anita 2 [place] Misc See Rx Instructions .Route Qty: 1 0RF Rx Instructions: check blood sugar lidocaine-prilocaine 2.5-2.5 % cream 1 applic topical . DIRECTED carvedilol 3.125 mg tablet 3.125 mg PO DIRECTED Rx Instructions: 1 tab morning of dialysis Thu, Thu, Fri torsemide 100 mg tablet 100 mg PO DAILY insulin aspart U-100 [Novolog Flexpen U-100 Insulin] 100 unit/mL (3 mL) insulin pen See Rx Instructions .ROUTE .COMPLEX Rx Instructions: 2-4 units plus moderate sliding scale before meals with max daily dose of 48 units Tresiba FlexTouch U-100 100 unit/mL (3 mL) insulin pen 12 unit SUBCUT DIRECTED Rx Instructions: 10-12 units at bedtime levothyroxine 200 mcg tablet 200 mcg PO .FIVE DAYS A WEEK Rx Instructions: takes thu,,thu,,thu PreserVision AREDS-2 250-90-40-1 mg Capsule 1 tab PO BID tamsulosin 0.4 mg capsule 0.4 mg PO BID Rx Instructions: TAKE ONE CAPSULE BY MOUTH TWICE DAILY Discharge Orders: Discharge Order (Routine); Ordered 07/18/22 Ordered By: Rolo Flores Transfer Attestations Time Spent in Transfer Care: greater than 30 min Status at Transfer: Cognitive status at transfer: cognitively intact; Behavioral status at transfer: cooperative; Functional status at transfer: independent ambulation; Overall status at transfer: patient is progressing back to baseline Quality Metrics Clinical Quality Measures [ No reported AMI, CVA or VTE this stay] Coding Level of Care Code Acute Flask Fitter for Supriya Fwd History Comprehensive Exam Detailed Medical Decision Making High Complexity Diagnoses Lower GI bleed requiring more than 4 units of blood in 24 hours, ICU, or surgery K92.2 Hematochezia K92.1 Diabetes type 2, uncontrolled E11.65 Glycemic state: with hyperglycemia Abdominal bloating R14.0 Diabetic neuropathy E11.40
[2022-07-19] MEDS: carvedilol 3.125 mg Tablet PO (16:47)
== END 2022-07-19 16:57 | disposition short-term general hospital (02) ==
LOC: GILAB 11:50 → MEDSURG 15:31
PROVIDERS: Internal Medicine; PCP Internal Medicine Nephrology; Visit Provider Internal Medicine Nephrology
DX: K92.1 Melena (principal); D62 Acute posthemorrhagic anemia; R14.0 Abdominal distension (gaseous); D12.1 Benign neoplasm of appendix; I12.0 Hypertensive chronic kidney disease with stage 5 chronic kidney disease or end stage renal disease; N18.6 End stage renal disease; E11.22 Type 2 diabetes mellitus with diabetic chronic kidney disease; E11.65 Type 2 diabetes mellitus with hyperglycemia; E11.40 Type 2 diabetes mellitus with diabetic neuropathy, unspecified; E78.5 Hyperlipidemia, unspecified; E03.9 Hypothyroidism, unspecified; Z79.4 Long term (current) use of insulin; Z88.0 Allergy status to penicillin; Z88.5 Allergy status to narcotic agent; Z90.49 Acquired absence of other specified parts of digestive tract; Z99.2 Dependence on renal dialysis
CPT/HCPCS: 36415; 36416; 36430; 36591; 74176; 80048; 82607; 82728; 82962; 83540; 83550; 83735; 85014; 85018; 85025; 85378; 85610; 85730; 86850; 86900; 86920; C9113; J7050; P9016; P9040

== ENCOUNTER → 2022-09-16 12:49 | Outpatient (BNVA) | payer MEDICARE, OTHER, SELFPAY | PROVIDERS: PCP Internal Medicine Nephrology; Visit Provider Podiatrist Foot & Ankle Surgery | DX: E11.65 Type 2 diabetes mellitus with hyperglycemia (principal); G62.9 Polyneuropathy, unspecified; B35.1 Tinea unguium; L84 Corns and callosities; R60.9 Edema, unspecified; Z79.4 Long term (current) use of insulin | CPT/HCPCS: 11721; 99204 ==

== ENCOUNTER → 2022-09-17 12:57 | Outpatient (BNVA) | payer MEDICARE, OTHER, SELFPAY | PROVIDERS: PCP Internal Medicine Nephrology; Visit Provider Orthopaedic Surgery | DX: M17.0 Bilateral primary osteoarthritis of knee (principal) | CPT/HCPCS: 20610; J7327 ==

== ENCOUNTER 2022-10-13 07:23 | Emergency (ER) | payer MEDICARE, OTHER, SELFPAY ==
[2022-10-13 07:26] VITALS: BP 142/63; PULSE 68; RESP 18; TEMP 36.5; O2SAT 90; BMI 26.9
--- NOTE | 2022-10-13 07:27 | XR_ITS ---
WS: [id number] EXAMINATION: XR cervical spine 3V* [id number] Cervical spine 3 5 views HISTORY: Neck pain after a fall FINDINGS: There is no sign of acute fracture or subluxation. The osseous densities appear normal. There are pro minent osteophyte disc complexes and disc space narrowing occurring at C4-5 C5-6 and difficult to vis ualize C6-7 due to soft tissue artifact. There is prominent carotid bulb calcifications on the right. Incidental note is made of a left-sided Port-A-Cath. There is no prevertebral soft tissue change. XR/XR cervical spine 3V* 94999 IMPRESSION: No acute osseous abnormality. Prominent degenerative changes in lower cervical spine is noted.
--- NOTE | 2022-10-13 07:27 | CT_ITS ---
WS: [id number] CT HEAD NONCONTRAST HISTORY: trauma TECHNIQUE: Contiguous axial imaging performed through the brain in 2.5 mm imaging. Bone and soft tiss ue windows. Sagittal and coronal reformats reviewed. All CT scans at [facility] use at least one of these dose optimization techniques: automated exposure control; mA and/or kV adjustment per pa tient size (includes targeted exams where dose is matched to clinical indication); or iterative recon struction. DLP: 1646.67 mGy.cm COMPARISON: 07/26/2021 No acute intracranial hemorrhage or edema. There is mild atrophy and small vessel ischemic disease. E xtra-axial mass towards the LEFT vertex is of slightly increased density compared to the adjacent bra in parenchyma. This mass measures 1.8 x 2.2 x 2.2 cm. No associated hemorrhage. Stable over multiple prior examinations. No prior infarcts. Ventricles: Normal size with no hydrocephalus. No inferior displacement of the cerebellar tonsils. There is calcified plaque in the vertebral arteri es and the intracranial carotid arteries. Paranasal sinuses: As visualized are clear. Mastoid air cells: Fluid in the RIGHT mastoid air cells. Fluid is new since the prior CT of 07/26/2021 . No identifiable skull base fracture. Calvarium and scalp: No skull fracture identified. There is a large soft tissue hematoma centered ove r the RIGHT orbit and globe. This area will be better evaluated on follow-up facial bone CT performed on the same day. No air-fluid levels in the adjacent sinuses. CT/CT head wo con* [id number] IMPRESSION: 1. No acute intracranial hemorrhage or edema. 2. Moderate soft tissue hematoma centered over the RIGHT orbit and globe. Faci al bone CT is pending. 3. No skull fractures are identified. 4. New effusion in the RIGHT mastoid air cells. No fracture is identified.
[2022-10-13 07:33] VITALS: BP 176/72; PULSE 69; RESP 16; O2SAT 91
--- NOTE | 2022-10-13 07:34 | XR_ITS ---
WS: [id number] EXAMINATION: XR shoulder RT min 2V* [id number] DATE: 10/13/2022 7:55 AM CLINICAL HISTORY: Trauma from fall TECHNIQUE: 3 views of the right shoulder were obtained. COMPARISON: None X-RAY FINDINGS: No fractures or dislocations. Normal motion of the shoulder with internal/external rotation. No degenerative changes. Acromioclavicular joint appears unremarkable. XR/XR shoulder RT min 2V* [id number] IMPRESSION: No fractures or dislocations of the right shoulder.
--- NOTE | 2022-10-13 07:34 | ED_ITS ---
HPI - Fall General: Chief Complaint: Fall Stated Complaint: FALL W/BRUISE OVER EYE Time Seen by Provider: 10/13/22 07:25 Source: patient Mode of arrival: EMS History of Present Illness: 72-year-old female with mechanical ground-level fall. She falls frequently he was on her way to dialysis and fell while trying to open the door she has an ecchymotic area above her right thigh. She denies any loss of consciousness no chest pain or difficulty breathing. She gets hemodialysis 3 days a week she is not on any anticoagulants. She had no chest pain or's precipitating symptoms prior to the fall. MD complaint: fall Onset (ago): minute(s) Fall from: standing Fall witnessed: yes, by bystander Place fall occurred: street Loss of consciousness: None Prolonged down time: no Symptoms prior to fall: none Context: history of frequent falls Location of injury: head and face Location of injury - extremities: Right: shoulder Associated symptoms-after fall: Reports difficulty walking and headache(s); Denies abdominal pain, chest pain, confusion, hematuria, lightheadedness, neck pain, numbness, short of breath, vertigo or weakness Review of Systems Const: Denies: fever(s), chills, body aches, change in appetite, fatigue or malaise ENMT: Denies: throat pain, ear or mastoid pain, nasal discharge or nasal congestion Card: Denies: chest pain or lightheadedness Resp: Denies: dyspnea, productive cough or non-productive cough GI: Denies: abdominal pain : Denies: dysuria, urinary frequency, urinary urgency or hematuria Musc: Denies: neck pain Skin/Breast: Denies: rash or pruritus Neuro: Reports: headache(s) and difficulty walking; Denies: vertigo or confusion PFS ED PFSH: Medical History Abdominal bloating Cataract Chronic kidney disease (CKD) Closed fracture of left proximal humerus Hemodialysis patient History of peritoneal dialysis HTN (hypertension) Hx of breast cancer Hydronephrosis Hyperlipidemia Hypothyroidism Incomplete bladder emptying Kidney stones Microcytic anemia Obstructive pyelonephritis SOB (shortness of breath) Type 2 diabetes mellitus Ureteral obstruction, right HX OF RIGHT URETEROSCOPY WITH STENT PLACEMENT Surgical History H/O knee surgery H/O skin graft H/O tubal ligation History of kidney surgery History of lumpectomy of left breast History of surgery Right-sided pleurodesis and Pleurx catheter placement History of surgery on arm Hx of cataract surgery Hx of tonsillectomy S/P dialysis catheter insertion Peritoneal dialysis catheter placement x3 according to patient, revisions had to be performed in [facility] at an outside facility Hemodialysis catheter placement S/P hemodialysis catheter insertion Right IJ: Removed Family History Mother Stroke Father Stroke Social History Smoking and tobacco status: never smoked Alcohol intake: never Lives independently: Yes Household members: spouse Marital status: Current occupational status: employed History of recent travel: No Current gender identity: Female Physical Exam Const: COMMON NORMALS: no acute distress GENERAL APPEARANCE: cooperative and comfortable ORIENTATION/CONSCIOUSNESS: Yes awake, Yes oriented to person, Yes oriented to place and Yes oriented to time HENMT: COMMON NORMALS: normocephalic, hearing grossly normal bilaterally, external ears normal, EAC's normal, TM's normal bilaterally, Normal nasal mucous membranes and turbinates present, moist oral mucous membranes and oropharynx normal HEAD & SCALP: normocephalic NOSE: Normal nasal mucous membranes and turbinates present EXTERNAL EAR: Yes external ears normal EXTERNAL AUDITORY CANAL: EAC's normal TYMPANIC MEMBRANE: TM's normal bilaterally Eye: COMMON NORMALS: Equal, round and reactive pupils present, EOMs intact bilaterally, conjunctivae normal and no scleral icterus CONJUNCTIVA: Yes conjunctivae normal PUPIL: Yes Equal, round and reactive pupils present Neck/C-Spine: COMMON NORMALS: full ROM, no lymphadenopathy, supple and no JVD Resp: COMMON NORMALS: normal respiratory effort, No retractions, No use of accessory muscles and clear to auscultation bilaterally AUSCULTATION: clear to auscultation bilaterally Cardio: COMMON NORMALS: no JVD, regular rate, regular rhythm and No murmurs present (Cardio) RATE: regular rate RHYTHM: regular rhythm GI: COMMON NORMALS: Soft to palpation and No hepatosplenomegaly present A USCULTATION: Yes normoactive bowel sounds PALPATION: Yes Soft to palpation, No Tenderness to palpation present (GI), No Guarding due to palpation present (GI) and Yes No hepatosplenomegaly present Extremity: COMMON NORMALS: normal to inspection, capillary refill normal, no clubbing, cyanosis or edema, no calf tenderness and no pedal edema Neuro: SENSORIUM/ORIENTATION: Yes oriented to person, Yes oriented to place and Yes oriented to time Skin: COMMON NORMALS: no rashes or lesions noted GENERAL SKIN EXAM: no rashes or lesions noted Course Vital Signs: Vital signs: Vital Signs Temperature 97.7 F 10/13/22 07:26 Pulse Rate 69 10/13/22 07:33 Respiratory Rate 16 10/13/22 07:33 Blood Pressure 176/72 10/13/22 07:33 Pulse Oximetry 91 10/13/22 07:33 Oxygen Delivery Me thod 10/13/22 07:26 MDM - Fall Medical Decision Making Labs and imaging reviewed. There is a questionable nasal bone fracture that even on the CT is difficult to distinguish to the extent that it may be present there is not any significant deformity clinically at this point in really no intervention of any type will be needed. Otherwise no fracture remainder of her labs are as expected given her underlying comorbid conditions. She will be discharged from the emergency room back to the dialysis clinic to complete her routine run of dialysis for today. Medical Records I reviewed the patient's medical records. Lab Data I reviewed the patient's lab results. 10/13/22 07:50 10/13/22 07:50 Radiology Impressions Cervical Spine X-Ray 10/13/22 07:27 IMPRESSION: No acute osseous abnormality. Prominent degenerative changes in lower cervical spine is noted. Head CT 10/13/22 07:27 IMPRESSION: 1. No acute intracranial hemorrhage or edema. 2. Moderate soft tissue hematoma centered over the RIGHT orbit and globe. Facial bone CT is pending. 3. No skull fractures are identified. 4. New effusion in the RIGHT mastoid air cells. No fracture is identified. Face CT 10/13/22 07:34 IMPRESSION: 1. No facial bone fractures identified. 2. Very minimal deviation of the RIGHT nasal bone. Indeterminate for fracture. No adjacent edema. If this is a fracture is not displaced. 3. Moderate soft tissue hematoma centered over the RIGHT orbit and globe. Orbit and globe are otherwise negative. Shoulder X-Ray 10/13/22 07:34 IMPRESSION: No fractures or dislocations of the right shoulder. Laboratory Results WBC 8.3 10^3/uL (4.0-10.0) 10/13/22 07:50 RBC 3.38 10^6/uL (4.1-5.3) L 10/13/22 07:50 Hgb 9.9 g/dL (11.5-15.3) L 10/13/22 07:50 Hct 31.5 % (37.0-47.0) L 10/13/22 07:50 MCV 93.2 fl (81-99) 10/13/22 07:50 MCH 29.3 pg (28.0-34.0) 10/13/22 07:50 MCHC 31.4 g/dL (30.0-36.0) 10/13/22 07:50 RDW 16.6 % (12.1-15.1) H 10/13/22 07:50 Plt Count 195 10^3/cmm (130-400) 10/13/22 07:50 MPV 11.2 fL (7.4-10.4) H 10/13/22 07:50 Neut % (Auto) 83.5 % 10/13/22 07:50 Lymph % (Auto) 7.3 % 10/13/22 07:50 [place] % (Auto) 5.7 % 10/13/22 07:50 Eos % (Auto) 2.4 % 10/13/22 07:50 Baso % (Auto) 0.6 % 10/13/22 07:50 Neut # (Auto) 6.91 10^3/uL (1.8-7.7) 10/13/22 07:50 Lymph # (Auto) 0.6 10^3/uL (0.8-4.8) L 10/13/22 07:50 [place] # (Auto) 0.5 10^3/uL (0.2-0.9) 10/13/22 07:50 Eos # (Auto) 0.2 10^3/uL (0.0-0.8) 10/13/22 07:50 Baso # (Auto) 0.1 10^3/uL (0.0-0.1) 10/13/22 07:50 Nucleated RBC % (auto) 0.2 % 10/13/22 07:50 Nucleated RBCs # 0.0 /100WBC 10/13/22 07:50 Sodium 125 mmol/L (136-145) L 10/13/22 07:50 Potassium 3.6 mmol/L (3.5-5.1) 10/13/22 07:50 Chloride 88 mmol/L (98-107) L 10/13/22 07:50 Carbon Dioxide 27 mmol/L (22-29) 10/13/22 07:50 Anion Gap 13.6 (5-19) 10/13/22 07:50 BUN 54 mg/dL (8-23) H 10/13/22 07:50 Creatinine 5.4 mg/dL (0.5-0.9) H 10/13/22 07:50 GFR Calculation Not Reportable 10/13/22 07:50 Glucose 289 mg/dL (65-115) H 10/13/22 07:50 POC Glucose 288 mg/dL (70-110) H 10/13/22 07:40 Calculated Osmolality 285 mOsm/kg (285-295) 10/13/22 07:50 Calcium 9.1 mg/dL (8.5-10.5) 10/13/22 07:50 Discharge Plan Discharge Patient Disposition: Home Clinical Impression: Fall, End stage renal disease, Diabetes mellitus, Anemia, Closed fracture nasal bone Condition: Stable Prescriptions: No Action RenaPlex-D 800 mcg-12.5 mg -2,000 unit tablet 1 tab PO QAM amitriptyline 100 mg tablet 100 mg PO BEDTIME [facility] Renal 2 Cassius 0.09 gram- 2 kcal/mL liquid 1 ea PO BID ropinirole 0.5 mg tablet 1 mg PO BEDTIME PRN (Reason: Restless Leg(S)) metolazone 5 mg tablet 5 mg PO DAILY@15 hydrocodone-acetaminophen 10-325 mg tablet 1 tab PO Q6H PRN (Reason: Pain) (DME) FreeStyle Anita 2 Sensor Kit See Rx Instructions .Route Qty: 3 3RF Rx Instructions: check blood sugar (DME) FreeStyle Anita 2 [place] Misc See Rx Instructions .Route Qty: 1 0RF Rx Instructions: check blood sugar Tresiba FlexTouch U-100 100 unit/mL (3 mL) insulin pen See Rx Instructions .ROUTE .COMPLEX Qty: 9 0RF Dose Instruction: ADMINISTER 14 UNITS UNDER THE SKIN WITH THE EVENING MEAL Rx Instructions: ADMINISTER 14 UNITS UNDER THE SKIN WITH THE EVENING MEAL lidocaine-prilocaine 2.5-2.5 % cream 1 applic topical . DIRECTED carvedilol 3.125 mg tablet 3.125 mg PO DIRECTED Rx Instructions: 1 tab morning of dialysis Thu, Thu, Thu torsemide 100 mg tablet 100 mg PO DAILY insulin aspart U-100 [Novolog Flexpen U-100 Insulin] 100 unit/mL (3 mL) insulin pen See Rx Instructions .ROUTE .COMPLEX Rx Instructions: 2-4 units plus moderate sliding scale before meals with max daily dose of 48 units levothyroxine 200 mcg tablet 200 mcg PO .FIVE DAYS A WEEK Rx Instructions: takes thu,,thu,,thu PreserVision AREDS-2 250-90-40-1 mg Capsule 1 tab PO BID tamsulosin 0.4 mg capsule 0.4 mg PO BID Rx Instructions: TAKE ONE CAPSULE BY MOUTH TWICE DAILY Discharge Orders: Discharge ED (Routine); Ordered 10/13/22 Ordered By: Florian Gerber Referrals: Wu Clark MD [Primary Care Provider] - Discharge Diet: Usual diet Discharge Activity: Increase activity as tolerated Patient Instructions: Opioid Safety, Pain Management Activity Restrictions/Additional Instructions: You were seen today for a fall. There is a questionable nasal bone fracture with no displacement on the CT of your facial bones. While this may lead to some discomfort for period of time there is no intervention at this point that needs to be done. You will have a significant mount of swelling around the right thigh for the next several days. We will discharge you from the ER you should return to the dialysis clinic so they can complete your usual run of dialysis. 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
--- NOTE | 2022-10-13 07:34 | CT_ITS ---
WS: [id number] CT FACIAL BONES HISTORY: fall TECHNIQUE: Images obtained from the supraorbital location through the mandible. Soft tissue and bone windows are reviewed. Coronal and sagittal reformats have also been submitted. DLP: 1646.[address] scans at [facility] use at least one of these dose optimization techniques: automated e xposure control; mA and/or kV adjustment per patient size (includes targeted exams where dose is matc hed to clinical indication); or iterative reconstruction. COMPARISON: None available. There is very slight deformity of the RIGHT nasal bone. Indeterminate for fracture. This could very w ell be congenital or from prior injury. There is no adjacent soft tissue hematoma. The zygomatic arch es are intact. No fractures involving the maldonado of the maxillary sinuses. The roof of the orbit and r zackary of the RIGHT maxillary sinus are intact. There are no fractures. No displacement of the extraocul ar muscles. There is a moderate amount of soft tissue hematoma centered over the RIGHT orbit and globe. No post o rbital hematoma. Small RIGHT maxillary sinus mucous retention cyst. Moderate plaque in the cervical carotid arteries. Visualized cervical spine is negative for fracture. There are degenerative changes in the cervical sp ine related to disc space narrowing and osteophyte disease. CT/CT facial bones wo con* [id number] IMPRESSION: 1. No facial bone fractures identified. 2. Very minimal deviation of the RIGHT nasal bone. Indeterminate for fracture. No adjacent edema. If this is a fracture is not displaced. 3. Moderate soft tissue hematoma centered over the RIGHT orbit and globe. Orbi t and globe are otherwise negative.
[2022-10-13 07:46] LABS: Glucose Point of Care 288 mg/dL (70-110)
[2022-10-13 07:46] LABS: Glucose Point of Care 276 mg/dL (70-110)
[2022-10-13 08:01] LABS: Basophils # 0.1 10^3/uL (0.0-0.1); Basophils % 0.6 %; Eosinophils # 0.2 10^3/uL (0.0-0.8); Eosinophils % 2.4 %; Hematocrit 31.5 % (37.0-47.0); Hemoglobin 9.9 g/dL (11.5-15.3); Lymphocytes # 0.6 10^3/uL (0.8-4.8); Lymphocytes % 7.3 %; Mean Corpuscular HGB Conc 31.4 g/dL (30.0-36.0); Mean Corpuscular Hemoglobin 29.3 pg (28.0-34.0); Mean Corpuscular Volume 93.2 fl (81-99); Mean Platelet Volume 11.2 fL (7.4-10.4); Monocytes # 0.5 10^3/uL (0.2-0.9); Monocytes % 5.7 %; Neutrophils # 6.91 10^3/uL (1.8-7.7); Neutrophils % 83.5 %; Nucleated Red Blood Cells % 0.2 %; Platelet Count 195 10^3/cmm (130-400); Red Blood Count 3.38 10^6/uL (4.1-5.3); Red Cell Distribution Width 16.6 % (12.1-15.1); White Blood Count 8.3 10^3/uL (4.0-10.0)
--- NOTE | 2022-10-13 08:03 | PC.NURSE ---
PT PRESENTS TO THE ED WITH RIGHT SIDED SHOULDER PAIN, AND BRUISING/SWELLING OF THE RIGHT EYE AND RIGHT SIDE OF FACE. PT BLOOD GLUCOSE 288, PT STATES SHE HAD A PROTEIN SHAKE NOT TOO LONG AGO
[2022-10-13 08:22] LABS: Anion Gap 13.6 (5-19); Blood Urea Nitrogen 54 mg/dL (8-23); Calcium 9.1 mg/dL (8.5-10.5); Carbon Dioxide 27 mmol/L (22-29); Chloride 88 mmol/L (98-107); Glucose 289 mg/dL (65-115); Osmolality Calculated 285 mOsm/kg (285-295); Potassium 3.6 mmol/L (3.5-5.1); Sodium 125 mmol/L (136-145)
[2022-10-13 08:33] VITALS: BP 159/61; PULSE 61; O2SAT 96
[2022-10-13 09:33] VITALS: BP 168/94; PULSE 64; O2SAT 92
--- NOTE | 2022-10-13 09:55 | PC.NURSE ---
PT PORT DE-ACCESSED WITH PULSATING SALINE FLUSH
[2022-10-13 09:59] VITALS: BP 132/80; PULSE 62; O2SAT 94
== END 2022-10-13 10:00 | disposition home or self-care (01) ==
PROVIDERS: Emergency Provider Family Medicine; PCP Internal Medicine Nephrology
DX: S02.2XXA Fracture of nasal bones, initial encounter for closed fracture (principal); E11.22 Type 2 diabetes mellitus with diabetic chronic kidney disease; I12.0 Hypertensive chronic kidney disease with stage 5 chronic kidney disease or end stage renal disease; N18.6 End stage renal disease; Z99.2 Dependence on renal dialysis; D64.9 Anemia, unspecified; Z79.4 Long term (current) use of insulin; Z85.3 Personal history of malignant neoplasm of breast; E78.5 Hyperlipidemia, unspecified; W18.30XA Fall on same level, unspecified, initial encounter
CPT/HCPCS: 36416; 70450; 70486; 72040; 73030; 80048; 82962; 85025; 99285

== ENCOUNTER → 2022-10-22 13:07 | Outpatient (BNVA) | payer MEDICARE, OTHER, SELFPAY | PROVIDERS: PCP Family Medicine; Visit Provider Internal Medicine | DX: E11.319 Type 2 diabetes mellitus with unspecified diabetic retinopathy without macular edema (principal); E11.65 Type 2 diabetes mellitus with hyperglycemia; E11.40 Type 2 diabetes mellitus with diabetic neuropathy, unspecified; E11.649 Type 2 diabetes mellitus with hypoglycemia without coma; E03.9 Hypothyroidism, unspecified; N18.6 End stage renal disease; E16.0 Drug-induced hypoglycemia without coma; T38.3X5A Adverse effect of insulin and oral hypoglycemic [antidiabetic] drugs, initial encounter; Z79.890 Hormone replacement therapy; Z79.4 Long term (current) use of insulin | CPT/HCPCS: 99214 ==

== ENCOUNTER → 2022-11-24 13:12 | Outpatient (BNVA) | payer MEDICARE, OTHER, SELFPAY | PROVIDERS: PCP Family Medicine; Visit Provider Podiatrist Foot & Ankle Surgery | DX: E11.65 Type 2 diabetes mellitus with hyperglycemia (principal); G62.9 Polyneuropathy, unspecified; B35.1 Tinea unguium; R60.9 Edema, unspecified; Z79.4 Long term (current) use of insulin | CPT/HCPCS: 11721 ==

== ENCOUNTER → 2022-12-15 13:37 | Outpatient (BNVA) | payer MEDICARE, OTHER, SELFPAY | PROVIDERS: PCP Family Medicine; Visit Provider Internal Medicine | DX: E11.65 Type 2 diabetes mellitus with hyperglycemia (principal); E11.319 Type 2 diabetes mellitus with unspecified diabetic retinopathy without macular edema; E11.40 Type 2 diabetes mellitus with diabetic neuropathy, unspecified; T38.3X5A Adverse effect of insulin and oral hypoglycemic [antidiabetic] drugs, initial encounter; E16.0 Drug-induced hypoglycemia without coma; N18.6 End stage renal disease; E03.9 Hypothyroidism, unspecified; E11.22 Type 2 diabetes mellitus with diabetic chronic kidney disease; Z79.4 Long term (current) use of insulin; Z79.890 Hormone replacement therapy | CPT/HCPCS: 99214 ==

== ENCOUNTER → 2022-12-30 13:51 | Outpatient (BNVA) | payer MEDICARE, OTHER, SELFPAY | PROVIDERS: PCP Family Medicine; Visit Provider Internal Medicine | DX: E11.40 Type 2 diabetes mellitus with diabetic neuropathy, unspecified (principal); E11.65 Type 2 diabetes mellitus with hyperglycemia; E11.319 Type 2 diabetes mellitus with unspecified diabetic retinopathy without macular edema; E11.649 Type 2 diabetes mellitus with hypoglycemia without coma; E11.22 Type 2 diabetes mellitus with diabetic chronic kidney disease; N18.6 End stage renal disease; E16.0 Drug-induced hypoglycemia without coma; T38.3X5A Adverse effect of insulin and oral hypoglycemic [antidiabetic] drugs, initial encounter; Z79.890 Hormone replacement therapy; Z79.4 Long term (current) use of insulin | CPT/HCPCS: 99214 ==

== ENCOUNTER → 2022-12-31 15:36 | Outpatient (BNVA) | payer MEDICARE, OTHER, SELFPAY | PROVIDERS: PCP Family Medicine; Visit Provider Otolaryngology | DX: H91.91 Unspecified hearing loss, right ear (principal) | CPT/HCPCS: 99202; 99203 ==

== ENCOUNTER → 2023-02-23 13:24 | Outpatient (BNVA) | payer MEDICARE, OTHER, SELFPAY | PROVIDERS: PCP Family Medicine; Visit Provider Internal Medicine | DX: E11.40 Type 2 diabetes mellitus with diabetic neuropathy, unspecified (principal); E11.319 Type 2 diabetes mellitus with unspecified diabetic retinopathy without macular edema; E11.65 Type 2 diabetes mellitus with hyperglycemia; E11.649 Type 2 diabetes mellitus with hypoglycemia without coma; E11.22 Type 2 diabetes mellitus with diabetic chronic kidney disease; T38.3X5A Adverse effect of insulin and oral hypoglycemic [antidiabetic] drugs, initial encounter; E16.0 Drug-induced hypoglycemia without coma; E03.9 Hypothyroidism, unspecified; N18.6 End stage renal disease; Z79.4 Long term (current) use of insulin; X58.XXXA Exposure to other specified factors, initial encounter | CPT/HCPCS: 36415; 84439; 84443; 84480; 99214 ==

== ENCOUNTER 2023-02-27 04:29 | Inpatient (IN) | payer MEDICARE, OTHER, SELFPAY ==
[2023-02-27] VITALS (32 sets, daily range): BP systolic 117–219; BP diastolic 53–86; PULSE 64–83; RESP 14–18; TEMP 36.2–36.8; O2SAT 92–100; BMI 24.7
--- NOTE | 2023-02-27 | CTR_ITS ---
PROCEDURE INFORMATION: Exam: CT Head Without Contrast Exam date and time: 02/27/2023 5:30 AM Age: 72 years old Clinical indication: Injury or trauma; Fall; Blunt trauma (contusions or hematomas); Consciousness not specified; Additional info: Fall, trauma TECHNIQUE: Imaging protocol: Computed tomography of the head without contrast. Total images: 664 Radiation optimization: All CT scans at this facility use at least one of these dose optimization techniques: automated exposure control; mA and/or kV adjustment per patient size (includes targeted exams where dose is matched to clinical indication); or iterative reconstruction. REPORTING DATA: Count of CT and Cardiac NM exams in prior 12 months: This patient has received 3 known CTs and 0 known cardiac nuclear medicine studies in the 12 months prior to the current study. COMPARISON: CT head wo con* [id number] 10/13/2022 8:22 AM RADIATION DOSE METRICS: Total DLP (mGy-cm): 1097.38 FINDINGS: Brain: Global brain atrophy and chronic white matter ischemic changes are present. Intracranial mass extending from the inner table of the left parietal bone near vertex most consistent with a meningioma and appears unchanged from prior exam. This measures 1.8 x 2.2 x 2.2 cm. Cerebral ventricles: Ventricles are appropriate in size for degree of atrophy. Pituitary gland and sella: Incidental incompetence of the diaphragmatic sella. Paranasal sinuses: Benign mucous retention cyst in the right maxillary paranasal sinus. Mastoid air cells: Partially opacified right mastoid air cells unchanged from prior exam. Orbital cavities: Prior right lens extraction. Prior left lens replacement. Bones/joints: Unremarkable. No acute fracture. Soft tissues: Unremarkable. CT/CT head wo con* [id number] IMPRESSION: No acute intracranial pathology detected.
--- NOTE | 2023-02-27 04:31 | CTR_ITS ---
PROCEDURE INFORMATION: Exam: CT Cervical Spine Without Contrast Exam date and time: 02/27/2023 5:33 AM Age: 72 years old Clinical indication: Injury or trauma; Fall; Blunt trauma TECHNIQUE: Imaging protocol: Computed tomography of the cervical spine without contrast. Total images: 287 Radiation optimization: All CT scans at this facility use at least one of these dose optimization techniques: automated exposure control; mA and/or kV adjustment per patient size (includes targeted exams where dose is matched to clinical indication); or iterative reconstruction. REPORTING DATA: Count of CT and Cardiac NM exams in prior 12 months: This patient has received 3 known CTs and 0 known cardiac nuclear medicine studies in the 12 months prior to the current study. COMPARISON: CT cervical spin wo con* [id number] 08/24/2019 9:59 AM RADIATION DOSE METRICS: Total DLP (mGy-cm): 314.61 FINDINGS: Bones/joints: Facet joint degenerative changes are present. C4-7 degenerative disc disease with disc space narrowing and osteophyte formation. Uncovertebral joint degeneration is present. Mastoid air cells: Partially opacified right mastoid air cells. Lungs: Peripheral apical interstitial septal thickening is suspicious for mild interstitial edema. 3 mm nodule in the lung apices bilaterally. Vasculature: Calcified atherosclerotic plaque is noted at the carotid bifurcations bilaterally. Soft tissues: Unremarkable. CT/CT cervical spin wo con* [id number] IMPRESSION: 1. No acute cervical spine pathology. 2. Peripheral apical interstitial septal thickening is suspicious for mild interstitial edema. 3. 3 mm nodule in the lung apices bilaterally. Finding may be infectious or neoplastic. For patients at low risk (minimal or absent history of smoking and of other known risk factors), no routine follow-up is indicated. For patients at high risk (history of smoking or of other known risk factors), consider optional CT Chest at 12 months. (Reference: Marky) REFERENCES: Marky Le, et al. Guidelines for Management of Incidental Pulmonary Nodules Detected on CT Images: From the Fleischner Society 2017. Radiology. 2017;284(1):228-243.
--- NOTE | 2023-02-27 04:31 | XRR_ITS ---
PROCEDURE INFORMATION: Exam: XR Left Hip Exam date and time: 02/27/2023 5:20 AM Age: 72 years old Clinical indication: Injury or trauma; Fall; Blunt trauma (contusions or hematomas); Left; Hip TECHNIQUE: Imaging protocol: Radiologic exam of the left hip. Views: 2 or 3 views hip with pelvis when performed. COMPARISON: CT abdomen pelvis wo con [id number] 07/19/2022 7:39 AM FINDINGS: Bones/joints: Minimally displaced intertrochanteric fracture of the left femur. Femoroacetabular alignment is normal. The visible portion of pelvis is intact. Soft tissues: Visible soft tissues are unremarkable. Vascular calcification is present. XR/XR hip LT 2-3V wo/w pel* [id number] IMPRESSION: Minimally displaced intertrochanteric fracture of the left femur.
--- NOTE | 2023-02-27 04:31 | XRR_ITS ---
PROCEDURE INFORMATION: Exam: XR Chest Exam date and time: 02/27/2023 5:17 AM Age: 72 years old Clinical indication: Injury or trauma; Fall; Blunt trauma (contusions or hematomas) TECHNIQUE: Imaging protocol: Radiologic exam of the chest. Views: 1 view. COMPARISON: CR XR chest 2V* [id number] 02/28/2022 11:45 AM FINDINGS: Tubes, catheters and devices: There is a left chest port with the line tip appropriately positioned in the lower SVC near the cavoatrial junction. Lungs: There is no consolidation. Pleural spaces: There is no pleural effusion or pneumothorax. Heart/Mediastinum: There is mild enlargement of the cardiac silhouette. Vasculature: Vascular stent partially imaged in the right upper arm. Bones/joints: Healed fracture of the left proximal humerus. Soft tissues: Surgical clips in the left axilla. XR/XR chest 1V portable [id number] IMPRESSION: No acute findings.
--- NOTE | 2023-02-27 04:34 | ED_ITS ---
HPI - Fall General: Chief Complaint: Extremity Injury, Lower Stated Complaint: HIP PAIN Time Seen by Provider: 02/27/23 04:31 Source: patient and EMS Mode of arrival: EMS Limitations: no limitations History of Present Illness: 72-year-old female states that she got up an hour ago walk and tripped and fell on her left side she states she was unable to stand been having left hip pain she rates a 9 out of 10. States she also hit her head no loss conscious does have a headache and neck pain denies any other pain elsewhere. Patient does have end-stage renal disease she is on dialysis receives a Thursday she states she did go on Thursday. Associated symptoms-after fall: Reports neck pain; Denies abdominal pain, chest pain or headache(s) Review of Systems Const: Denies: fever(s) or chills Eyes: Denies: blurry vision or eye discomfort ENMT: Denies: throat pain or dental pain Card: Denies: chest pain Resp: Denies: dyspnea GI: Denies: abdominal pain, nausea, vomiting or diarrhea Musc: Reports: neck pain and extremity pain; Denies: back pain Skin/Breast: Denies: rash Neuro: Denies: headache(s) Psych: Denies: depression PFSH ED PFSH: Medical History Abdominal bloating Cataract Chronic kidney disease (CKD) Closed fracture of left proximal humerus Hemodialysis patient History of peritoneal dialysis HTN (hypertension) Hx of breast cancer Hydronephrosis Hyperlipidemia Hypothyroidism Incomplete bladder emptying Kidney stones Microcytic anemia Obstructive pyelonephritis SOB (shortness of breath) Type 2 diabetes mellitus Ureteral obstruction, right HX OF RIGHT URETEROSCOPY WITH STENT PLACEMENT Surgical History H/O knee surgery H/O skin graft H/O tubal ligation History of cholecystectomy History of kidney surgery History of lumpectomy of left breast History of surgery Right-sided pleurodesis and Pleurx catheter placement History of surgery on arm Hx of cataract surgery Hx of tonsillectomy S/P dialysis catheter insertion Peritoneal dialysis catheter placement x3 according to patient, revisions had to be performed in [facility] at an outside facility Hemodialysis catheter placement S/P hemodialysis catheter insertion Right IJ: Removed Family History Mother Stroke Father Stroke Social History Smoking and tobacco status: never smoked Alcohol intake: never Substance/Drug Use: never Lives independently: Yes Household members: spouse Marital status: Current occupational status: employed Current gender identity: Female Physical Exam Const: COMMON NORMALS: patient oriented x3 and healthy appearing HENMT: COMMON NORMALS: normocephalic HEAD & SCALP: normocephalic OTHER: abrasion to forehead Eye: COMMON NORMALS: conjunctivae normal CONJUNCTIVA: Yes conjunctivae normal Neck/C-Spine: COMMON NORMALS: full ROM and supple Chest: COMMONS NORMALS: normal inspection of the chest and normal palpation of entire chest wall Resp: COMMON NORMALS: normal respiratory effort Cardio: COMMON NORMALS: regular rate, regular rhythm and No murmurs present (Cardio) RATE: regular rate RHYTHM: regular rhythm GI: COMMON NORMALS: Normal to inspection, nondistended, normoactive bowel sounds present, Soft to palpation, non-tender and no masses PALPATION: Yes Soft to palpation Extremity: COMMON NORMALS: full ROM NARRATIVE EXTREMITY EXAM: Patient presents here left hip tenderness noted pain with range of motion. Neuro: COMMON NORMALS: patient oriented x3, moves all extremities and no focal motor deficits Psych: COMMON NORMALS: mental status grossly normal, Normal thought process present and cooperative THOUGHT PROCESS: Normal thought process present Skin: COMMON NORMALS: no rashes or lesions noted and no wounds GENERAL SKIN EXAM: no rashes or lesions noted Course Vital Signs: Vital signs: Vital Signs Temperature 97.8 F 02/27/23 04:29 Pulse Rate 80 02/27/23 04:29 Respiratory Rate 16 02/27/23 05:00 Blood Pressure 214/82 02/27/23 04:29 Pulse Oximetry 97 02/27/23 05:00 Oxygen Delivery Me thod Room Air 02/27/23 04:29 MDM - Fall Medical Decision Making Patient presents here with a left hip fracture after a fall CT head CT C-spine are negative spoke to the hospitalist and orthopedist and will admit at this time. Lab Data 02/27/23 04:50 02/27/23 04:50 Radiology Impressions Cervical Spine CT 02/27/23 04:31 IMPRESSION: 1. No acute cervical spine pathology. 2. Peripheral apical interstitial septal thickening is suspicious for mild interstitial edema. 3. 3 mm nodule in the lung apices bilaterally. Finding may be infectious or neoplastic. For patients at low risk (minimal or absent history of smoking and of other known risk factors), no routine follow-up is indicated. For patients at high risk (history of smoking or of other known risk factors), consider optional CT Chest at 12 months. (Reference: Marky) REFERENCES: Marky Le, et al. Guidelines for Management of Incidental Pulmonary Nodules Detected on CT Images: From the Fleischner Society 2017. Radiology. 2017;284(1):228-243. Laboratory Results WBC 13.6 10^3/uL (4.0-10.0) H 02/27/23 04:50 RBC 3.15 10^6/uL (4.1-5.3) L 02/27/23 04:50 Hgb 9.4 g/dL (11.5-15.3) L 02/27/23 04:50 Hct 29.4 % (37.0-47.0) L 02/27/23 04:50 MCV 93.3 fl (81-99) 02/27/23 04:50 MCH 29.8 pg (28.0-34.0) 02/27/23 04:50 MCHC 32.0 g/dL (30.0-36.0) 02/27/23 04:50 RDW 16.0 % (12.1-15.1) H 02/27/23 04:50 Plt Count 170 10^3/cmm (130-400) 02/27/23 04:50 MPV 11.4 fL (7.4-10.4) H 02/27/23 04:50 Neut % (Auto) 90.7 % 02/27/23 04:50 Lymph % (Auto) 3.4 % 02/27/23 04:50 [place] % (Auto) 3.4 % 02/27/23 04:50 Eos % (Auto) 1.1 % 02/27/23 04:50 Baso % (Auto) 0.3 % 02/27/23 04:50 Neut # (Auto) 12.33 10^3/uL (1.8-7.7) H 02/27/23 04:50 Lymph # (Auto) 0.5 10^3/uL (0.8-4.8) L 02/27/23 04:50 [place] # (Auto) 0.5 10^3/uL (0.2-0.9) 02/27/23 04:50 Eos # (Auto) 0.2 10^3/uL (0.0-0.8) 02/27/23 04:50 Baso # (Auto) 0.0 10^3/uL (0.0-0.1) 02/27/23 04:50 Nucleated RBC % (auto) 0 % 02/27/23 04:50 Nucleated RBCs # 0.0 /100WBC 02/27/23 04:50 PT 14.60 SECONDS (12.1-14.9) 02/27/23 04:50 INR 1.10 (0.8-1.2) 02/27/23 04:50 Sodium 130 mmol/L (136-145) L 02/27/23 04:50 Potassium 4.2 mmol/L (3.5-5.1) 02/27/23 04:50 Chloride 92 mmol/L (98-107) L 02/27/23 04:50 Carbon Dioxide 25 mmol/L (22-29) 02/27/23 04:50 Anion Gap 17.2 (5-19) 02/27/23 04:50 BUN 47 mg/dL (8-23) H 02/27/23 04:50 Creatinine 4.5 mg/dL (0.5-0.9) H 02/27/23 04:50 GFR Calculation Not Reportable 02/27/23 04:50 Glucose 194 mg/dL (65-115) H 02/27/23 04:50 Calculated Osmolality 288 mOsm/kg (285-295) 02/27/23 04:50 Calcium 8.8 mg/dL (8.5-10.5) 02/27/23 04:50 Total Bilirubin 0.4 mg/dL (0.15-1.2) 02/27/23 04:50 AST 13 U/L (0-32) 02/27/23 04:50 ALT 12 U/L (0-33) 02/27/23 04:50 Alkaline Phosphatase 73 U/L (35-105) 02/27/23 04:50 Total Protein 7.0 g/dL (6.6-8.7) 02/27/23 04:50 Albumin 3.7 g/dL (3.5-5.2) 02/27/23 04:50 Globulin 3.3 g/dL (1.3-4.6) 02/27/23 04:50 EKG Data EKG 1: I personally reviewed and interpreted this EKG as follows: EKG interpretation date: 02/27/23 EKG interpretation time: 04:45 Interpretation: nsr hr [address] or t wave abnormalities qrs 136 qtc 463 Discharge Plan Discharge Patient Disposition: Admitted As Inpatient Clinical Impression: Fall Closed fracture of left hip Qualifiers: Encounter type: initial encounter Qualified Code(s): S72.002A - Fracture of unspecified part of neck of left femur, initial encounter for closed fracture Condition: Stable Coding Level of Care Code ED Cookie Padder for Supriya Byers
--- NOTE | 2023-02-27 04:45 | ECG_ITS ---
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 Measurements Intervals [place] Rate: 77 P: 54 NM: 137 QRS: -52 QRSD: 136 T: 73 QT: 432 QTc: 489 Interpretive Statements SINUS RHYTHM LEFT AXIS DEVIATION [QRS AXIS < -30] INTRAVENTRICULAR CONDUCTION DELAY [130+ ms QRS DURATION] POSSIBLE LEFT VENTRICULAR HYPERTROPHY [VOLTAGE CRITERIA PLUS LAE OR QRS WIDENING] Compared to ECG 07/26/2021 12:44:11 No significant changes Electronically Signed On 02-27-2023 21:57:39 CDT by Cory Menjivar M.D. [id number]
[2023-02-27] MEDS: ondansetron 2 mg/ML SDV 2 mL 4 MG IVP (04:58)
[2023-02-27 04:59] LABS: Basophils % 0.3 %; Eosinophils # 0.2 10^3/uL (0.0-0.8); Eosinophils % 1.1 %; Hematocrit 29.4 % (37.0-47.0); Hemoglobin 9.4 g/dL (11.5-15.3); Lymphocytes # 0.5 10^3/uL (0.8-4.8); Lymphocytes % 3.4 %; Mean Corpuscular Hemoglobin 29.8 pg (28.0-34.0); Mean Corpuscular Volume 93.3 fl (81-99); Mean Platelet Volume 11.4 fL (7.4-10.4); Monocytes # 0.5 10^3/uL (0.2-0.9); Monocytes % 3.4 %; Neutrophils # 12.33 10^3/uL (1.8-7.7); Neutrophils % 90.7 %; Nucleated Red Blood Cells % 0 %; Platelet Count 170 10^3/cmm (130-400); Red Blood Count 3.15 10^6/uL (4.1-5.3); White Blood Count 13.6 10^3/uL (4.0-10.0)
[2023-02-27] MEDS: HYDROmorphone 1 mg/mL INJ 1 mL IVP (05:00)
[2023-02-27 05:18] LABS: Alanine Aminotransferase 12 U/L (0-33); Albumin Level 3.7 g/dL (3.5-5.2); Alkaline Phosphatase 73 U/L (35-105); Anion Gap 17.2 (5-19); Aspartate Amino Transferase 13 U/L (0-32); Blood Urea Nitrogen 47 mg/dL (8-23); Calcium 8.8 mg/dL (8.5-10.5); Carbon Dioxide 25 mmol/L (22-29); Chloride 92 mmol/L (98-107); Globulin 3.3 g/dL (1.3-4.6); Glucose 194 mg/dL (65-115); Osmolality Calculated 288 mOsm/kg (285-295); Potassium 4.2 mmol/L (3.5-5.1); Sodium 130 mmol/L (136-145); Total Bilirubin 0.4 mg/dL (0.15-1.2)
--- NOTE | 2023-02-27 06:25 | PM.HP ---
Providers/Chief Complaint Primary Care Provider: Cesar Mendez MD Chief Complaint: HIP PAIN History of Present Illness María Saab is a 72 year old female with a past medical of insulin-dependent type 2 diabetes mellitus, end-stage renal disease on dialysis, hypothyroidism, hypertension, has a port in due to difficulty in IV blood draws, history of life-threatening GI bleed, transfusion due to lower GI bleed requiring transfer to tertiary level center, who presents [facility] for a fall. Patient tells me that this morning she got up to use the bathroom, when she flipped on the light, she twisted and fell on her left side. She tells me that she has fallen before and she has had a nasal fracture, with a left shoulder fracture in the past operated by Dr. Will. She denies any preceding lightheadedness, dizziness, no nausea, no vomiting, no chest pain, palpitations, no facial droop, no slurring words, no paresthesias Review of Systems Const: Denies: fever(s) Eyes: Denies: change in vision Card: Denies: chest pain Resp: Denies: dyspnea GI: Denies: abdominal pain Musc: Denies: neck pain or back pain Skin/Breast: Denies: rash Neuro: Denies: headache(s) Medications/Allergies Home Medications Medication Instructions Recorded Confirmed Last Taken Type metolazone 5 mg tablet 5 mg PO DAILY@15 11/28/19 02/23/23 07/18/22 History torsemide 100 mg tablet 100 mg PO DAILY 01/10/20 02/23/23 07/18/22 History amitriptyline 100 mg tablet 100 mg PO BEDTIME 10/02/20 02/23/23 07/18/22 History nut.tx.impaired renal fxn,soy 0.09 1 ea PO BID 10/02/20 02/23/23 07/18/22 History gram-2 kcal/mL oral liquid (NovaSource Renal 2 Cassius) vit B,C-folic ac 800 mcg-zinc 12.5 1 tab PO QAM 10/02/20 02/23/23 07/18/22 History mg-selen-D3 2,000 unit-vit E tablet (RenaPlex-D) insulin aspart U-100 100 unit/mL See Rx Instructions .Route 06/10/21 02/23/23 07/18/22 History (3 mL) subcutaneous pen (Novolog .COMPLEX see pharamacy comments-pt FlexPen U-100 Insulin aspart) states she hasnt used for a couple weeks vit C 250 mg-vit E 90 mg-zinc 40 1 tab PO BID 07/26/21 02/23/23 07/18/22 History mg-copper 1 kw-wcrunk-kdkjed capsule (PreserVision AREDS-2) hydrocodone 10 mg-acetaminophen 1 tab PO Q6H PRN Pain 09/10/21 02/23/23 07/18/22 History 325 mg tablet lidocaine-prilocaine 2.5 %-2.5 % 1 applic topical . DIRECTED 01/03/22 02/23/23 07/18/22 History topical cream carvedilol 3.125 mg tablet 3.125 mg PO DIRECTED 02/04/22 02/23/23 07/18/22 History ropinirole 0.5 mg tablet 1 mg PO BEDTIME PRN Restless Leg(S) 04/03/22 02/23/23 07/18/22 History tamsulosin 0.4 mg capsule 0.4 mg PO BID 07/18/22 02/23/23 07/18/22 History levothyroxine 200 mcg tablet 200 mcg PO .FIVE DAYS A WEEK #120 10/23/22 02/23/23 Unknown Rx tabs insulin degludec 100 unit/mL (3 See Rx Instructions .Route 11/24/22 02/23/23 Unknown Rx mL) subcutaneous pen (Tresiba .COMPLEX #9 mL FlexTouch U-100 insulin) flash glucose scanning reader #1 ea 12/15/22 02/23/23 Unknown Rx (FreeStyle Anita 2 [place]) flash glucose sensor (FreeStyle #3 ea 12/15/22 02/23/23 Unknown Rx Anita 2 Sensor kit) semaglutide 0.25 mg or 0.5 mg (2 0.25 mg (0.2 mL) SUBCUT Q7D #8 mL 12/15/22 02/23/23 Unknown Rx mg/1.5 mL) subcutaneous pen injector (Ozempic) semaglutide 0.25 mg or 0.5 mg (2 0.5 mg (0.4 mL) SUBCUT Q7D 1 month 12/30/22 02/23/23 Unknown Rx mg/1.5 mL) subcutaneous pen #2 mL injector (Ozempic) semaglutide 2 mg/dose (8 mg/3 mL) mg SUBCUT 12/31/22 02/23/23 Unknown History subcutaneous pen injector (Ozempic) Allergies Allergy/AdvReac Type Severity Reaction Status Date / Time Penicillins Allergy Mild ALGY-Rash Verified 02/23/23 14:06 propoxyphene [From Darvon] Allergy Mild ALGY-Rash Verified 02/23/23 14:06 codeine Allergy ALGY-Rash Verified 02/23/23 14:06 PFSH Acute PFSH: Medical History Abdominal bloating Cataract Chronic kidney disease (CKD) Closed fracture of left proximal humerus Hemodialysis patient History of peritoneal dialysis HTN (hypertension) Hx of breast cancer Hydronephrosis Hyperlipidemia Hypothyroidism Incomplete bladder emptying Kidney stones Microcytic anemia Obstructive pyelonephritis SOB (shortness of breath) Type 2 diabetes mellitus Ureteral obstruction, right HX OF RIGHT URETEROSCOPY WITH STENT PLACEMENT Surgical History H/O knee surgery H/O skin graft H/O tubal ligation History of cholecystectomy History of kidney surgery History of lumpectomy of left breast History of surgery Right-sided pleurodesis and Pleurx catheter placement History of surgery on arm Hx of cataract surgery Hx of tonsillectomy S/P dialysis catheter insertion Peritoneal dialysis catheter placement x3 according to patient, revisions had to be performed in [facility] at an outside facility Hemodialysis catheter placement S/P hemodialysis catheter insertion Right IJ: Removed Family History Mother Stroke Father Stroke Social History Smoking and tobacco status: never smoked Alcohol intake: never Substance/Drug Use: never Lives independently: Yes Household members: spouse Marital status: Current occupational status: employed Current gender identity: Female Vitals/I&O/Wt Last Vital Signs Temp 97.8 F 02/27/23 04:29 Pulse 80 02/27/23 04:29 Resp 16 02/27/23 05:00 BP 214/82 02/27/23 04:29 Pulse Ox 97 02/27/23 05:00 O2 Del Method Room Air 02/27/23 04:29 Weight last 48 hrs Weight 63.503 kg Physical Exam Const: COMMON NORMALS: no acute distress and patient oriented x3 HENMT: COMMON NORMALS: normocephalic HEAD & SCALP: normocephalic Eye: COMMON NORMALS: Equal, round and reactive pupils present and EOMs intact bilaterally Neck/C-Spine: COMMON NORMALS: full ROM Lymph: LYMPHATIC: no lymphadenopathy noted Resp: COMMON NORMALS: normal respiratory effort, No retractions, No use of accessory muscles and clear to auscultation bilaterally AUSCULTATION: clear to auscultation bilaterally Cardio: COMMON NORMALS: regular rate, regular rhythm, S1 normal heart sound present and S2 normal heart sound present RATE: regular rate RHYTHM: regular rhythm HEART SOUNDS: S1 normal heart sound present and S2 normal heart sound present GI: COMMON NORMALS: Normal to inspection, nondistended, normoactive bowel sounds present, Soft to palpation and non-tender Extremity: COMMON NORMALS: no pedal edema Neuro: COMMON NORMALS: patient oriented x3 and CN's II-XII intact bilaterally Psych: COMMON NORMALS: mental status grossly normal Data 02/27/23 04:50 02/27/23 04:50 A&P Assessment and plan (1) Closed fracture of left hip: Qualifiers: Encounter type: initial encounter Qualified Code(s): S72.002A - Fracture of unspecified part of neck of left femur, initial encounter for closed fracture (2) Fall: (3) Lower GI bleed requiring more than 4 units of blood in 24 hours, ICU, or surgery: (4) Diabetic retinopathy: (5) Hypothyroidism: Qualifiers: Hypothyroidism type: unspecified Qualified Code(s): E03.9 - Hypothyroidism, unspecified (6) End stage renal disease: Plan Left hip fracture -Last meal was 1 AM, will keep n.p.o. -Pain control morphine -Zofran for nausea -SCDs for DVT prophylaxis -Anticoagulation, will hold off for now, relatively contraindicated, given her history of life-threatening lower GI bleed, requiring transfer to [facility] in 07/31, will request records End-stage renal disease, consult nephrology in a.m. for dialysis Hypertension hold blood pressure medications Hypothyroidism we will call pharmacy in the morning to confirm and clarify levothyroxine dosing, 200 mcg 5 times a day Thursday through Thursday? Insulin-dependent diabetes mellitus, low-dose sliding scale Attestations Medical Necessity Statement*: Patient requires hospitalization, inpatient, greater than 2 midnights, due to fall, left hip fracture Coding Level of Care Code Acute Code for Chg Fwd Diagnoses Closed fracture of left hip S72.002A Encounter type: initial encounter Fall W19.XXXA Lower GI bleed requiring more than 4 units of blood in 24 hours, ICU, or surgery K92.2 Diabetic retinopathy E11.319 Hypothyroidism E03.9 Hypothyroidism type: unspecified End stage renal disease N18.6
--- NOTE | 2023-02-27 07:04 | PC.NURSE ---
pt resting in bed, on cell phone. pt is alert and oriented to person, place, and time. shortening and rotation noted to LLE. Pedal pulses palpable bilaterally. skin pink/warm/dry. pt updated with plan of care and NPO status. pt verbalized understanding. call light within reach.
--- NOTE | 2023-02-27 07:08 | P.CONIM_ITS ---
Providers/Reason For Consult Consulting Physician/Specialty*: Cooper Will MD; orthopedic surgery Reason for Consult*: Left intertrochanteric hip fracture Primary Care Provider: Cesar Mendez MD History of Present Illness History of Present Illness María Saab is a 72 year old female who fell early this morning. She has a history of multiple medical problems including dfg-hkotbfp-ptsfaawyw diabetes mellitus, end-stage renal disease, hypothyroidism and hyper tension. She lives alone as her is a solo truck driver she ambulates with a cane but is still fairly functional in the community and able to drive. She apparently fell this morning on the way to the bathroom she had immediate onset left hip pain. She was taken here by EMS and radiographs revealed a left intertrochanteric hip fracture Medications/Allergies Home Medications Medication Instructions Recorded Confirmed Last Taken Type metolazone 5 mg tablet 5 mg PO DAILY@15 11/28/19 02/23/23 07/18/22 History torsemide 100 mg tablet 100 mg PO DAILY 01/10/20 02/23/23 07/18/22 History amitriptyline 100 mg tablet 100 mg PO BEDTIME 10/02/20 02/23/23 07/18/22 History nut.tx.impaired renal fxn,soy 0.09 1 ea PO BID 10/02/20 02/23/23 07/18/22 History gram-2 kcal/mL oral liquid (NovaSource Renal 2 [place]) vit B,C-folic ac 800 mcg-zinc 12.5 1 tab PO QAM 10/02/20 02/23/23 07/18/22 History mg-selen-D3 2,000 unit-vit E tablet (RenaPlex-D) insulin aspart U-100 100 unit/mL See Rx Instructions .Route 06/10/21 02/23/23 07/18/22 History (3 mL) subcutaneous pen (Novolog .COMPLEX see pharamacy comments-pt FlexPen U-100 Insulin aspart) states she hasnt used for a couple weeks vit C 250 mg-vit E 90 mg-zinc 40 1 tab PO BID 07/26/21 02/23/23 07/18/22 History mg-copper 1 kg-qecbqo-dddmdi capsule (PreserVision AREDS-2) hydrocodone 10 mg-acetaminophen 1 tab PO Q6H PRN Pain 11/12/3002/23/23 07/18/22 History 325 mg tablet lidocaine-prilocaine 2.5 %-2.5 % 1 applic topical . DIRECTED 01/03/22 02/23/23 07/18/22 History topical cream carvedilol 3.125 mg tablet 3.125 mg PO DIRECTED 02/04/22 02/23/23 07/18/22 History ropinirole 0.5 mg tablet 1 mg PO BEDTIME PRN Restless Leg(S) 04/03/22 02/23/23 07/18/22 History tamsulosin 0.4 mg capsule 0.4 mg PO BID 07/18/22 02/23/23 07/18/22 History levothyroxine 200 mcg tablet 200 mcg PO .FIVE DAYS A WEEK #120 10/23/22 02/23/23 Unknown Rx tabs insulin degludec 100 unit/mL (3 See Rx Instructions .Route 11/24/22 02/23/23 Unknown Rx mL) subcutaneous pen (Tresiba .COMPLEX #9 mL FlexTouch U-100 insulin) flash glucose scanning reader #1 ea 12/15/22 02/23/23 Unknown Rx (FreeStyle [place] 2 [place]) flash glucose sensor (FreeStyle #3 ea 12/15/22 02/23/23 Unknown Rx Anita 2 Sensor kit) semaglutide 0.25 mg or 0.5 mg (2 0.25 mg (0.2 mL) SUBCUT Q7D #8 mL 12/15/22 02/23/23 Unknown Rx mg/1.5 mL) subcutaneous pen injector (Ozempic) semaglutide 0.25 mg or 0.5 mg (2 0.5 mg (0.4 mL) SUBCUT Q7D 1 month 12/30/22 02/23/23 Unknown Rx mg/1.5 mL) subcutaneous pen #2 mL injector (Ozempic) semaglutide 2 mg/dose (8 mg/3 mL) mg SUBCUT 12/31/22 02/23/23 Unknown History subcutaneous pen injector (Ozempic) Allergies Allergy/AdvReac Type Severity Reaction Status Date / Time Penicillins Allergy Mild ALGY-Rash Verified 02/23/23 14:06 propoxyphene [From Darvon] Allergy Mild ALGY-Rash Verified 02/23/23 14:06 codeine Allergy ALGY-Rash Verified 02/23/23 14:06 PFSH Acute PFSH: Medical History Abdominal bloating Cataract Chronic kidney disease (CKD) Closed fracture of left proximal humerus Hemodialysis patient History of peritoneal dialysis HTN (hypertension) Hx of breast cancer Hydronephrosis Hyperlipidemia Hypothyroidism Incomplete bladder emptying Kidney stones Microcytic anemia Obstructive pyelonephritis SOB (shortness of breath) Type 2 diabetes mellitus Ureteral obstruction, right HX OF RIGHT URETEROSCOPY WITH STENT PLACEMENT Surgical History H/O knee surgery H/O skin graft H/O tubal ligation History of cholecystectomy History of kidney surgery History of lumpectomy of left breast History of surgery Right-sided pleurodesis and Pleurx catheter placement History of surgery on arm Hx of cataract surgery Hx of tonsillectomy S/P dialysis catheter insertion Peritoneal dialysis catheter placement x3 according to patient, revisions had to be performed in [facility] at an outside facility Hemodialysis catheter placement S/P hemodialysis catheter insertion Right IJ: Removed Family History Mother Stroke Father Stroke Social History Smoking and tobacco status: never smoked Alcohol intake: never Substance/Drug Use: never Lives independently: Yes Household members: spouse Marital status: Current occupational status: employed Current gender identity: Female Vitals/I&O/Wt Last Vital Signs Temp 97.8 F 02/27/23 04:29 Pulse 80 02/27/23 04:29 Resp 16 02/27/23 05:00 BP 187/63 02/27/23 05:11 Pulse Ox 97 02/27/23 05:11 O2 Del Method Nasal Cannula 02/27/23 05:11 O2 Flow Rate 3 02/27/23 05:11 Weight last 48 hrs Weight 140 lb Physical Exam Narrative: María is a pleasant female supine in bed. She answers questions appropriately She has shortening and external rotation of the left hip. She has severe pain with any motion of the left hip. I cannot feel a good dorsalis pedis pulse. She can flex and extend her toes and ankle. She has diminished sensation in the left foot. Data 02/27/23 04:50 02/27/23 04:50 Xray Ortho: My impression: 2 views of the left hip were personally interpreted. The patient has a left intertrochanteric hip fracture. She has significant underlying osteoporosis A&P Assessment and plan (1) Intertrochanteric fracture of left hip: María is a previously functional ambulatory female. She has fallen now with a unstable fracture of the left hip. I discussed options with the the patient. I told them we could treat this nonoperatively but certainly they would be at risk for medical problems without surgery. Theywould have problems with pain that would require narcotics for pain control. They would require a long period of bedrest industrial safety and health specialist risk for pneumonia and skin breakdown. I discussed surgical intervention with the patient. I told them with open reduction internal fixation they should be able to be mobilized and resume ambulatory status. We can eliminate the problems associated with prolonged bed rest and would have better control of pain. Certainly there would be inherent risk with surgery. These would would include the risk of cardiac complications, stroke, infection, and even . I discussed risk of any orthopedic implant including nonunion, malunion, a component failure. I discussed the possible need for component removal. I discussed risk of deep venous thromboses and pulmonary emboli that are present with any treatment and the importance of DVT prophylaxis. They expressed good understanding of alternative treatments, seem to comprehend, and agrees to surgical intervention. Coding Level [facility] Care Code [facility] Intertrochanteric fracture of left hip S72.142A
--- NOTE | 2023-02-27 07:40 | P.ANESASSM_ITS ---
Pre-Anesthetic Assessment Height/Weight: Height 1.6 m Weight 63.503 kg Temp Pulse Resp BP Pulse Ox O2 Del Method O2 Flow Rate 97.8 F 83 16 187/84 98 Nasal Cannula 3 02/27/23 04:29 02/27/23 07:00 02/27/23 07:00 02/27/23 07:00 02/27/23 07:00 02/27/23 05:11 02/27/23 05:11 Preop Diagnosis: Left intertrochanteric hip fracture Operation Date: 02/27/23 08:00 Proposed Procedures p Trochanteric Femoral Nail(Left) - Cooper Will MD Familial anesthetic complications: NOne Was Beta Jessa taken within 24 hours: Yes Was Clonidine taken within 24 hours: N/A Last intake: > 8hrs Social No alcohol and No tobacco Exam alert, oriented x 3, clear to auscultation bilaterally and regular rate & rhythm Airway Mallampati: Class II Dentition: other (missing) Comments: Comments: hx Nasal fracture CV/HEM Anemia, Congestive Heart Failure (grade II diastolic dysfunction) and Hypertension MOD MVR with mod Pulm HTN, mild LVH ESRD on dialysis, last on thursday, receives MWF GI Hx GI bleed and colon resection, early satiety but patient denies ever e xperiencing acid reflux Metabolic Diabetes Mellitus and Thyroid Disease Musc/skel Lower Back Pain Neuropsych Cerebrovascular Accident (cerebellar w/ ataxic gait) Anesthetic Plan ASA status: 4 Anesthesia: General Risk of > 500 ml blood loss (7ml/kg in children): No Medications/Allergies Home Medications Medication Instructions Recorded Confirmed Last Taken Type metolazone 5 mg tablet 5 mg PO DAILY@15 11/28/19 02/23/23 07/18/22 History torsemide 100 mg tablet 100 mg PO DAILY 01/10/20 02/23/23 07/18/22 History amitriptyline 100 mg tablet 100 mg PO BEDTIME 10/02/20 02/23/23 07/18/22 History nut.tx.impaired renal fxn,soy 0.09 1 ea PO BID 10/02/20 02/23/23 07/18/22 History gram-2 kcal/mL oral liquid (NovaSource Renal 2 Cassius) vit B,C-folic ac 800 mcg-zinc 12.5 1 tab PO QAM 10/02/20 02/23/23 07/18/22 History mg-selen-D3 2,000 unit-vit E tablet (RenaPlex-D) insulin aspart U-100 100 unit/mL See Rx Instructions .Route 06/10/21 02/23/23 07/18/22 History (3 mL) subcutaneous pen (Novolog .COMPLEX see pharamacy comments-pt FlexPen U-100 Insulin aspart) states she hasnt used for a couple weeks vit C 250 mg-vit E 90 mg-zinc 40 1 tab PO BID 07/26/21 02/23/23 07/18/22 History mg-copper 1 [id number] capsule (PreserVision AREDS-2) hydrocodone 10 mg-acetaminophen 1 tab PO Q6H PRN Pain 09/10/21 02/23/23 07/18/22 History 325 mg tablet lidocaine-prilocaine 2.5 %-2.5 % 1 applic topical . DIRECTED 01/03/22 02/23/23 07/18/22 History topical cream carvedilol 3.125 mg tablet 3.125 mg PO DIRECTED 02/04/22 02/23/23 07/18/22 History ropinirole 0.5 mg tablet 1 mg PO BEDTIME PRN Restless Leg(S) 04/03/22 02/23/23 07/18/22 History tamsulosin 0.4 mg capsule 0.4 mg PO BID 07/18/22 02/23/23 07/18/22 History levothyroxine 200 mcg tablet 200 mcg PO .FIVE DAYS A WEEK #120 10/23/22 02/23/23 Unknown Rx tabs insulin degludec 100 unit/mL (3 See Rx Instructions .Route 11/24/22 02/23/23 Unknown Rx mL) subcutaneous pen (Tresiba .COMPLEX #9 mL FlexTouch U-100 insulin) flash glucose scanning reader #1 ea 12/15/22 02/23/23 Unknown Rx (FreeStyle Anita 2 [place]) flash glucose sensor (FreeStyle #3 ea 12/15/22 02/23/23 Unknown Rx Anita 2 Sensor kit) semaglutide 0.25 mg or 0.5 mg (2 0.25 mg (0.2 mL) SUBCUT Q7D #8 mL 12/15/22 02/23/23 Unknown Rx mg/1.5 mL) subcutaneous pen injector (OzModular Patterns) semaglutide 0.25 mg or 0.5 mg (2 0.5 mg (0.4 mL) SUBCUT Q7D 1 month 12/30/22 02/23/23 Unknown Rx mg/1.5 mL) subcutaneous pen #2 mL injector (OzModular Patterns) semaglutide 2 mg/dose (8 mg/3 mL) mg SUBCUT 12/31/22 02/23/23 Unknown History subcutaneous pen injector (OzempRolith) Allergies Allergy/AdvReac Type Severity Reaction Status Date / Time Penicillins Allergy Mild ALGY-Rash Verified 02/23/23 14:06 propoxyphene [From Darvon] Allergy Mild ALGY-Rash Verified 02/23/23 14:06 codeine Allergy ALGY-Rash Verified 02/23/23 14:06 [facility] Anesthesia Medical History Abdominal bloating Cataract Chronic kidney disease (CKD) Closed fracture of left proximal humerus Hemodialysis patient History of peritoneal dialysis HTN (hypertension) Hx of breast cancer Hydronephrosis Hyperlipidemia Hypothyroidism Incomplete bladder emptying Kidney stones Microcytic anemia Obstructive pyelonephritis SOB (shortness of breath) Type 2 diabetes mellitus Ureteral obstruction, right HX OF RIGHT URETEROSCOPY WITH STENT PLACEMENT Surgical History H/O knee surgery H/O skin graft H/O tubal ligation History of cholecystectomy History of kidney surgery History of lumpectomy of left breast History of surgery Right-sided pleurodesis and Pleurx catheter placement History of surgery on arm Hx of cataract surgery Hx of tonsillectomy S/P dialysis catheter insertion Peritoneal dialysis catheter placement x3 according to patient, revisions had to be performed in [facility] at an outside facility Hemodialysis catheter placement S/P hemodialysis catheter insertion Right IJ: Removed Family History Mother Stroke Father Stroke Social History Smoking and tobacco status: never smoked Alcohol intake: never Substance/Drug Use: never Lives independently: Yes Household members: spouse Marital status: Current occupational status: employed Current gender identity: Female Data Anesthesia 02/27/23 04:50 04/21/23 04:50 Short CBC 02/27/23 Range/Units 04:50 WBC 13.6 H (4.0-10.0) 10^3/uL Hgb 9.4 L (11.5-15.3) g/dL Hct 29.4 L (37.0-47.0) % MCV 93.3 (81-99) fl Plt Count 170 (130-400) 10^3/cmm Neut % (Auto) 90.7 % Neut # (Auto) 12.33 H (1.8-7.7) 10^3/uL BMP 02/27/23 04:50 Sodium 130 L Potassium 4.2 Chloride 92 L Carbon Dioxide 25 BUN 47 H Creatinine 4.5 H Glucose 194 H Calcium 8.8 Liver Function 02/27/23 Range/Units 04:50 Total Bilirubin 0.4 (0.15-1.2) mg/dL AST 13 (0-32) U/L ALT 12 (0-33) U/L Alkaline Phosphatase 73 (35-105) U/L Albumin 3.7 (3.5-5.2) g/dL Coags 02/27/23 04:50 PT 14.60 INR 1.10 Cardiac Studies: Echocardiogram 03/06/22 Echocardiogram Ultrasound 09/28/20 Holter Monitor 09/10/20
[2023-02-27] MEDS: sodium chloride 0.9% 1,000 ML 30 ML IV (07:50)
[2023-02-27] MEDS: ceFAZolin 2,000 MG in sodium chloride 0.9% (plus) 50 ML 100 MG IV ×3 (08:13→23:14)
--- NOTE | 2023-02-27 09:08 | XR_ITS ---
WS: [id number] C-ARM RADIOGRAPHS LEFT HIP; 4 IMAGES HISTORY: OR PICS COMPARISON: None available. Intraoperative imaging during ORIF LEFT hip fracture. Long intramedullary almita and gamma nail have bee n placed. XR/XR hip LT 2-3V wo/w pel* [id number] IMPRESSION: Intraoperative imaging during LEFT hip ORIF.
--- NOTE | 2023-02-27 09:24 | PM.OP ---
Operative Report Date of procedure: February 27, 2023 Pre-op diagnosis: Preop Diagnosis Left intertrochanteric hip fracture Post-op diagnosis: Same Procedure done: Open reduction internal fixation left hip with intramedullary device Implants: Kal Gamma nail 11 mm x 340 mm, 10.5mm by 90 lag screw Pathology: none sent Surgeon: Cooper Will Anesthesia: General Estimated blood loss (mL): 100 Findings: Patient had a left 2 part intertrochanteric hip fracture. She had significant osteopenia Condition: stable Disposition: PACU Procedure: The patient was taken to the operating room. They were given 1 g of Ancef. They were positioned on the fracture table with the lower extremity in gentle traction. A timeout was performed. A 2 cm long incision was made proximal to the greater trochanter scalpel blade. Dissection was carried down to tip the greater trochanter. A guidepin was passed manually from the tip of the trochanter down the shaft. The proximal reamer was utilized to open up the proximal canal. An 11 mm 340 mm [place] gamma nail was passed down the canal without difficulty. Under visualization of fluoroscopy a guidepin was driven up into the head and neck at 125? angle. It was measured at 90 mm in length and a lag screw similar length was then placed and locked into place with the proximal locking screw. [The static guides were then used to pass the distal locking screw.] Intraoperative imaging was obtained verifying satisfactory position of the hardware and reduction of the fracture. Deep tissues were closed with 0 Vicryl as were subcutaneous tissues. The skin was closed with running 4-0 subcutaneous Monocryl suture. Sterile dressings were applied. The patient was extubated and taken to recovery room in stable condition.
--- NOTE | 2023-02-27 09:25 | PC.NURSE ---
Pt arrived to PACU, LMA removed by Will BLINDSTITCH HEMMER, pt tolerated well. Dressing to left hip C/D/I, left foot p/w/d, cap refill <3 seconds, good pedal pulse noted.
[2023-02-27] MEDS: fentaNYL 50 mcg/mL INJ 2mL IVP ×2 (09:44→09:55)
[2023-02-27 11:08] LABS: Glucose Point of Care 231 mg/dL (70-110)
--- NOTE | 2023-02-27 11:15 | W.PM.EVENTAC ---
Event Note Event Note: History and physical reviewed. I examined the patient, and reviewed her surgical risk prior to surgery as well. No direct contraindications to surgery. This is her normal dialysis day, and will require dialysis following procedure. I called nephrology to make sure that they got the consult. See history and physical done earlier today.
[2023-02-27 11:20] LABS: Thyroid Stimulating Hormone 14.63 uIU/mL (0.27-4.20)
[2023-02-27] MEDS: oxyCODONE 5 mg IR Tab/Cap PO ×3 (11:45→23:19)
--- NOTE | 2023-02-27 12:50 | PM.CONSULT ---
Providers/Reason For Consult Consulting Physician/Specialty*: Luba Perez DO, telenephrology Reason for Consult*: ESRD Requesting Physician: Rolo Flores MD Attending Physician: Rolo Flores MD Primary Care Provider: Cesar Mendez MD History of Present Illness History of Present Illness María Saab is a 72 year old female admitted after fall. Had ORIF left hip today. Reports pain. ESRD HD MWF Medications/Allergies Home Medications Medication Instructions Recorded Confirmed Last Taken Type torsemide 100 mg tablet 100 mg PO DAILY 01/10/20 02/27/23 07/18/22 History amitriptyline 100 mg tablet 100 mg PO BEDTIME 10/02/20 02/27/23 07/18/22 History nut.tx.impaired renal fxn,soy 0.09 1 ea PO BID 10/02/20 02/27/23 07/18/22 History gram-2 kcal/mL oral liquid (NovaSource Renal 2 [place]ius) vit C 250 mg-vit E 90 mg-zinc 40 1 tab PO QAM 07/26/21 02/27/23 07/18/22 History mg-copper 1 [id number] capsule (PreserVision AREDS-2) tamsulosin 0.4 mg capsule 0.4 mg PO QAM 07/18/22 02/27/23 07/18/22 History flash glucose scanning reader #1 ea 12/15/22 02/27/23 Unknown Rx (FreeStyle Anita 2 [place]) flash glucose sensor (FreeStyle #3 ea 12/15/22 02/27/23 Unknown Rx Anita 2 Sensor kit) carvedilol 12.5 mg tablet See Rx Instructions .Route .COMPLEX 02/27/23 02/27/23 Unknown History hydrocodone 7.5 mg-acetaminophen 1 tab PO Q6H PRN Pain 02/27/23 02/27/23 Unknown History 325 mg tablet levothyroxine 200 mcg tablet 200 mcg PO QAM 02/27/23 02/27/23 Unknown History lidocaine-prilocaine 2.5 %-2.5 % See Rx Instructions .Route .COMPLEX 02/27/23 02/27/23 Unknown History topical cream potassium chloride 10 mEq 10 meq PO QAM 02/27/23 02/27/23 Unknown History tablet,extended release ropinirole 0.5 mg tablet See Rx Instructions .Route .COMPLEX 02/27/23 02/27/23 1 Week Ago History ~02/20/23 ropinirole 1 mg tablet 1 mg PO BEDTIME 02/27/23 02/27/23 Unknown History semaglutide 0.25 mg or 0.5 mg (2 1.5 mg SUBCUT Q7D 02/27/23 02/27/23 02/21/23 History mg/1.5 mL) subcutaneous pen see pharmacy injector (Nexopia) comment vit B,C-folic ac 800 mcg-zinc 12.5 1 tab PO DAILY 02/27/23 02/27/23 Unknown History mg-selen-D3 2,000 unit-vit E tablet (RenaPlex-D) Allergies Allergy/AdvReac Type Severity Reaction Status Date / Time Penicillins Allergy Mild ALGY-Rash Verified 02/27/23 13:14 propoxyphene [From Darvon] Allergy Mild ALGY-Rash Verified 02/27/23 13:14 codeine Allergy ALGY-Rash Verified 02/27/23 13:14 Current Medications Generic Name Dose Route Start Last Admin Trade Name Freq PRN Reason Stop Dose Admin Oxycodone HCl 5 mg 02/27/23 10:40 02/27/23 11:45 Oxycodone 5 Mg Ir Tab/Cap PO 5 mg Q4H PRN Administration MODERATE PAIN PFSH Acute PFSH: Medical History Abdominal bloating Cataract Chronic kidney disease (CKD) Closed fracture of left proximal humerus Hemodialysis patient History of peritoneal dialysis HTN (hypertension) Hx of breast cancer Hydronephrosis Hyperlipidemia Hypothyroidism Incomplete bladder emptying Kidney stones Microcytic anemia Obstructive pyelonephritis SOB (shortness of breath) Type 2 diabetes mellitus Ureteral obstruction, right HX OF RIGHT URETEROSCOPY WITH STENT PLACEMENT Surgical History H/O knee surgery H/O skin graft H/O tubal ligation History of cholecystectomy History of kidney surgery History of lumpectomy of left breast History of surgery Right-sided pleurodesis and Pleurx catheter placement History of surgery on arm Hx of cataract surgery Hx of tonsillectomy S/P dialysis catheter insertion Peritoneal dialysis catheter placement x3 according to patient, revisions had to be performed in [facility] at an outside facility Hemodialysis catheter placement S/P hemodialysis catheter insertion Right IJ: Removed Family History Mother Stroke Father Stroke Social History Smoking and tobacco status: never smoked Alcohol intake: never Substance/Drug Use: never Lives independently: Yes Household members: spouse Marital status: Current occupational status: employed Do you think of yourself as: Straight/Heterosexual Current gender identity: Female Vitals/I&O/Wt Last Vital Signs Temp 97.6 F 02/27/23 10:24 Pulse 65 02/27/23 10:24 Resp 18 02/27/23 11:45 BP 133/76 02/27/23 10:24 Pulse Ox 97 02/27/23 10:24 O2 Del Method Nasal Cannula 02/27/23 11:17 O2 Flow Rate 1 02/27/23 10:24 02/26/23 02/27/23 02/27/23 22:59 06:59 14:59 Intake Total 550 / 550 Output Total 650 / 650 Balance -100 / -100 Weight last 48 hrs Weight 63.503 kg Weight 63.503 kg Physical Exam Const: COMMON NORMALS: alert Extremity: NARRATIVE EXTREMITY EXAM: RUE AVF + thrill per RN GENERAL: No edema Neuro: SENSORIUM/ORIENTATION: Yes alert Urinary Catheter Management: Spears: Cath Placed During This Visit: yes Urinary Catheter Date of Insertion: 02/27/23 Urinary Catheter Time of Insertion: 08:30 Data 02/27/23 04:50 02/27/23 04:50 Other data: seen via telemedicine with assistance of RN at bedside verbal consent obtained A&P Assessment and plan (1) End stage renal disease: Plan 1. ESRD 2. Fall, hip fracture, ORIF 3. Anemia 4. Mild hyponatremia, chronic 5. hypertension, well-controlled Plan: HD tomorrow, 3.5h, 2K, 1000 ml UF, then return to [facility] schedule Consult Attestations Medical Necessity Statement: per primary service Time Spent in Patient Care: 16 - 35 minutes Coding Level of Care Code Acute Code for Chg Fwd Diagnoses End stage renal disease N18.6
[2023-02-27] MEDS: insulin lispro 100 unit/1 mL SUBCUT (13:05)
[2023-02-27] MEDS: tamsulosin 0.4 mg Capsule PO ×2 (13:06→17:24)
[2023-02-27] MEDS: acetaminophen 500 mg Tablet 1000 MG PO ×2 (13:06→21:01)
[2023-02-27] MEDS: morphine 4 mg/mL SDV 1 mL 2 MG IVP ×2 (13:06→21:08)
--- NOTE | 2023-02-27 13:42 | PC.PHAR ---
pt states she takes care of her own medications-pt states she no longer takes tresiba flextouch or novolog flexpen not used for 2 months-pt states she was suppose to start out with ozempic 1.5mg q7d for 4 weeks then go to 0.5mg q7d for 4 weeks then 0.25mg q7d for 4 weeks then repeat the process-called [facility] [place] rx filled for 0.25mg q7d for 1 month then 0.5mg q7d and continue-pt states due to take 1.5mg on sat 02/28/23-pt states she takes flomax 0.4mg qam ext med history shows last filled 03/31/23 83d/s 0.4mg bid-pt states she now takes her levothyroxine 200mcg qam rx was filled for 200mcg po five days a week-pt states she has an old norco 7.5/325mg tab left from an old rx states she takes prn ext shows last filled 07/10/22 5d/s-pt states she takes carvedilol 12.5mg three times a week as directed the am of dialysis on thu and thu ext med history shows last filled 02/14/23 12.5mg twice a week as directed the am of dialysis-pt state she is no longer taking nexium 20mg daily ext med history shows last filled 11/17/22 90d/s-notes are made in the pharmacy comments
[2023-02-27 15:33] LABS: Add Urine Microscopic? YES; Bilirubin Urine Neg (Negative); Blood Urine 3+ (Negative); Glucose Urine UA 2+ (Normal); Ketones Urine Negative (Negative); Leukocyte Esterase Urine Negative (Negative); Nitrate Urine Negative (Negative); Protein Urine 3+ (Negative); Specific Gravity, Urine 1.015 (1.005-1.030); Sulfosalicylic Acid Urine Positive (Negative); Urine Appearance Clear (CLEAR); Urine Color Yellow (Yellow); Urobilinogen Urine Neg (Negative); pH Urine 8 (5-7)
[2023-02-27 15:35] LABS: Add Urine Culture? Yes; Bacteria Urine TRACE /hpf; Mucus Urine TRACE /hpf; RBC Urine 25-40 /hpf (0-2); Squamous Epithelial Cell Urine 0-4 /hpf (0-5)
[2023-02-27 16:59] LABS: Glucose Point of Care 132 mg/dL (70-110)
[2023-02-27] MEDS: sennosides-docusate Tablet 2 TAB PO (17:24)
[2023-02-27 20:48] LABS: Glucose Point of Care 159 mg/dL (70-110)
[2023-02-27] MEDS: amitriptyline 25 mg Tablet 100 MG PO (21:01)
[2023-02-27] MEDS: ropinirole 1 mg Tablet PO (21:01)
[2023-02-27 21:02] LABS: Hepatitis B Surface Antigen Non-Reactive (Nonreactive)
[2023-02-27 21:04] LABS: Hepatitis C Virus Antibody Non-Reactive (Nonreactive)
[2023-02-27 22:20] LABS: Hepatitis B Surface AB > 1000.0 (11.5-1000)
[2023-02-28] VITALS (11 sets, daily range): BP systolic 111–171; BP diastolic 53–78; PULSE 72–92; RESP 14–18; TEMP 36.1–37.7; O2SAT 90–97
[2023-02-28] MEDS: oxyCODONE 5 mg IR Tab/Cap PO ×2 (05:32→09:44)
[2023-02-28] MEDS: acetaminophen 500 mg Tablet 1000 MG PO ×2 (05:33→22:29)
[2023-02-28] MEDS: levothyroxine 200 mcg Tablet PO (05:34)
[2023-02-28 06:03] LABS: Glucose Point of Care 201 mg/dL (70-110)
[2023-02-28 06:24] LABS: Basophils % 0.4 %; Eosinophils # 0.2 10^3/uL (0.0-0.8); Eosinophils % 1.6 %; Hematocrit 27.3 % (37.0-47.0); Hemoglobin 8.6 g/dL (11.5-15.3); Lymphocytes # 0.4 10^3/uL (0.8-4.8); Lymphocytes % 3.6 %; Mean Corpuscular HGB Conc 31.5 g/dL (30.0-36.0); Mean Corpuscular Hemoglobin 29.8 pg (28.0-34.0); Mean Corpuscular Volume 94.5 fl (81-99); Mean Platelet Volume 11.8 fL (7.4-10.4); Monocytes # 0.6 10^3/uL (0.2-0.9); Monocytes % 5.8 %; Neutrophils # 9.46 10^3/uL (1.8-7.7); Nucleated Red Blood Cells % 0 %; Platelet Count 178 10^3/cmm (130-400); Red Blood Count 2.89 10^6/uL (4.1-5.3); White Blood Count 10.7 10^3/uL (4.0-10.0)
[2023-02-28 06:49] LABS: Anion Gap 12.4 (5-19); Blood Urea Nitrogen 55 mg/dL (8-23); Calcium 8.4 mg/dL (8.5-10.5); Carbon Dioxide 25 mmol/L (22-29); Chloride 88 mmol/L (98-107); Glucose 174 mg/dL (65-115); Magnesium 2.1 mg/dL (1.7-2.3); Osmolality Calculated 271 mOsm/kg (285-295); Potassium 4.4 mmol/L (3.5-5.1); Sodium 121 mmol/L (136-145)
--- NOTE | 2023-02-28 07:44 | PM.PN ---
Subjective Subjective: Had a rough night. A lot of pain in hip area. Vitals/I&O/Wt Last Vital Signs Temp 97.9 F 02/28/23 03:51 Pulse 84 02/28/23 05:57 Resp 16 02/28/23 05:32 BP 118/78 02/28/23 03:51 Pulse Ox 97 02/28/23 05:32 O2 Del Method Room Air 02/28/23 03:51 O2 Flow Rate 1 02/27/23 23:19 02/27/23 02/28/23 02/28/23 22:59 06:59 14:59 Intake Total 290 / 1080 50 / 1130 Output Total 400 / 1050 Balance 290 / 430 -350 / 80 Weight last 48 hrs Weight 63.503 kg Weight 63.503 kg Physical Exam Const: COMMON NORMALS: alert Extremity: NARRATIVE EXTREMITY EXAM: + right UE AVF GENERAL: No edema Neuro: SENSORIUM/ORIENTATION: Yes alert Urinary Catheter Management: Spaers: Cath Placed During This Visit: yes, but has since been removed by the nurse Reason for Continuing Indwelling Catheter: Decision to DC Catheter Urinary Catheter Date of Insertion: 02/27/23 Urinary Catheter Time of Insertion: 08:30 Date Urinary Catheter Removed: 02/28/23 Time Urinary Catheter Discontinued: 06:01 Data 02/28/23 05:33 02/28/23 05:33 Other data: seen via telemedicine with assistance of RN at bedside A&P Assessment and plan (1) End stage renal disease: Plan 1. ESRD 2. Fall, hip fracture, ORIF 3. Anemia, Hb lower post-op 4. Hyponatremia, serum sodium lower this morning. Did not receive IVF overnight. 5. hypertension, well-controlled Plan: HD today, 3.5h, 2K, 1000 ml UF, then return to MWF schedule. No BPs, IVs, blood draws right arm. Acceptable from renal standpoint to use NSAID for pain management. repeat serum sodium later today Attestations Medical Necessity Statement*: per primary service Time Spent in Patient Care: 16 - 35 minutes Coding Level of Care Code Acute Code for Chg Fwd Diagnoses End stage renal disease N18.6
[2023-02-28] MEDS: ceFAZolin 2,000 MG in sodium chloride 0.9% (plus) 50 ML 100 MG IV (08:10)
[2023-02-28] MEDS: tamsulosin 0.4 mg Capsule PO ×2 (08:10→18:03)
[2023-02-28] MEDS: pantoprazole DR 40 mg Tablet PO ×2 (08:11→18:03)
[2023-02-28] MEDS: TORSEmide 20 mg Tablet 100 MG PO (08:11)
[2023-02-28] MEDS: insulin lispro 100 unit/1 mL SUBCUT ×2 (08:12→18:03)
[2023-02-28] MEDS: enoxaparin 30 mg/0.3 mL Syringe SUBCUT (09:44)
[2023-02-28 11:11] LABS: Glucose Point of Care 134 mg/dL (70-110)
[2023-02-28 11:47] LABS: Free T4 Free Thyroxine 1.31 ng/dL (0.82-1.77); T3 Free 1.5 PG/ML (2.0-4.4)
[2023-02-28 12:01] LABS: Iron 26 ug/dL (37-145); Percent Saturation 17.4 % (20-50); Total Iron Binding Capacity 149 mcg/dl; Unsaturated Iron Binding 123 ug/dL (112-347)
[2023-02-28 12:16] LABS: Folate Level > 20.0 ng/mL (4.8-37.3)
[2023-02-28 12:17] LABS: Vitamin B12 770 pg/mL (232-1245)
--- NOTE | 2023-02-28 14:37 | P.PN_ITS ---
Subjective Subjective: Hospital course, labs appreciated. Today morning on examination sitting comfortably in chair. Post physical therapy. Complaining of pain. States continues to have pain even after oral medications. Currently on oxycodone 5 mg every 4 hourly as needed. Has remained hemodynamically stable and afebrile. Plan for dialysis today. Vitals/I&O/Wt Last Vital Signs Temp 97.4 F L 02/28/23 12:00 Pulse 78 02/28/23 12:00 Resp 16 02/28/23 12:00 BP 113/54 02/28/23 12:00 Pulse Ox 94 02/28/23 12:00 O2 Del Method Room Air 02/28/23 12:00 O2 Flow Rate 1 02/28/23 08:00 02/27/23 02/28/23 02/28/23 22:59 06:59 14:59 Intake Total 290 / 1080 50 / 1130 530 / 530 Output Total 400 / 1050 Balance 290 / 430 -350 / 80 530 / 530 Weight last 48 hrs Weight 63.503 kg Weight 63.503 kg Physical Exam Const: COMMON NORMALS: no acute distress and patient oriented x3 HENMT: COMMON NORMALS: normocephalic HEAD & SCALP: normocephalic Eye: COMMON NORMALS: Equal, round and reactive pupils present and EOMs intact bilaterally PUPIL: Yes Equal, round and reactive pupils present Neck/C-Spine: COMMON NORMALS: full ROM Lymph: LYMPHATIC: no lymphadenopathy noted Resp: COMMON NORMALS: normal respiratory effort, No retractions, No use of accessory muscles and clear to auscultation bilaterally AUSCULTATION: clear to auscultation bilaterally Cardio: COMMON NORMALS: regular rate, regular rhythm, S1 normal heart sound present and S2 normal heart sound present RATE: regular rate RHYTHM: regular rhythm HEART SOUNDS: S1 normal heart sound present and S2 normal heart sound present GI: COMMON NORMALS: Normal to inspection, nondistended, normoactive bowel sounds present, Soft to palpation and non-tender PALPATION: Yes Soft to palpation Extremity: COMMON NORMALS: no pedal edema Neuro: COMMON NORMALS: patient oriented x3 and CN's II-XII intact bilaterally Psych: COMMON NORMALS: mental status grossly normal Urinary Catheter Management: Spears: Cath Placed During This Visit: yes, but has since been removed by the nurse Reason for Continuing Indwelling Catheter: Decision to DC Catheter Urinary Catheter Date of Insertion: 02/27/23 Urinary Catheter Time of Insertion: 08:30 Date Urinary Catheter Removed: 02/28/23 Time Urinary Catheter Discontinued: 06:01 Data 02/28/23 05:33 02/28/23 05:33 Micro: Microbiology 02/27/23 14:20 Urine Culture - Preliminary Urine,Clean Catch A&P Assessment and plan (1) Closed fracture of left hip: Postoperative day 1. PT/ OT, anticoagulation, perioperative antibiotics as per orthopedic team. Monitor hemoglobin. Stop oxycodone 5 mg every 4 hours as needed for pain as not working enough as per patient. Restart home dose of [place] 7.5 mg every 6 hourly as needed. Add tramadol 50 mg every 6 hourly as needed and Flexeril 5 mg 3 times daily. Qualifiers: Encounter type: initial encounter Qualified Code(s): S72.002A - Fracture of unspecified part of neck of left femur, initial encounter for closed fracture (2) Fall: Mechanical (3) Lower GI bleed requiring more than 4 units of blood in 24 hours, ICU, or surgery: On previous admission. Monitor hemoglobin. Protonix 40 mg oral twice daily. Carafate twice daily. (4) Diabetic retinopathy: (5) Hypothyroidism: Supposed to take 200 mcg 5 times a week Thursday to Thursday. TSH more than 14. Check free T3, free T4. For now switch to levothyroxine 200 mcg daily. Qualifiers: Hypothyroidism type: unspecified Qualified Code(s): E03.9 - Hypothyroidism, unspecified (6) End stage renal disease: Plan End-stage renal disease: Appreciate nephrology recommendations. Dialysis as per session. Hypertension: Goal blood pressure less than 140/90 mmHg. Blood pressures soft to normal. Continue home dose of carvedilol. Discharge planning: Plan to discharge to SNF for further rehabilitation given hip fracture. Attestations Medical Necessity Statement*: Requires further hospitalization for post-ORIF care, end-stage renal disease on hemodialysis, postoperative anemia while safe discharge planning is sought. Diagnoses Closed fracture of left hip S72.002A Encounter type: initial encounter Fall W19.XXXA Lower GI bleed requiring more than 4 units of blood in 24 hours, ICU, or surgery K92.2 Diabetic retinopathy E11.319 Hypothyroidism E03.9 Hypothyroidism type: unspecified End stage renal disease N18.6
[2023-02-28] MEDS: morphine 4 mg/mL SDV 1 mL 2 MG IVP (15:42)
[2023-02-28] MEDS: cyclobenzaprine 10 mg Tablet 5 MG PO ×2 (16:06→22:31)
[2023-02-28 17:21] LABS: Glucose Point of Care 183 mg/dL (70-110)
[2023-02-28] MEDS: sucralfate 1 gm/10 mL Oral Liq UDC PO (18:03)
[2023-02-28 20:23] LABS: Anion Gap 12.4 (5-19); Blood Urea Nitrogen 21 mg/dL (8-23); Calcium 8.2 mg/dL (8.5-10.5); Carbon Dioxide 26 mmol/L (22-29); Chloride 88 mmol/L (98-107); Glucose 115 mg/dL (65-115); Osmolality Calculated 260 mOsm/kg (285-295); Potassium 3.4 mmol/L (3.5-5.1); Sodium 123 mmol/L (136-145)
[2023-02-28 20:45] LABS: Glucose Point of Care 110 mg/dL (70-110)
[2023-02-28] MEDS: amitriptyline 25 mg Tablet 100 MG PO (22:30)
[2023-02-28] MEDS: ropinirole 1 mg Tablet PO (22:31)
[2023-02-28] MEDS: HYDROcodone-acetaminophen 7.5-325 mg Tablet 1 TAB PO (22:31)
[2023-03-01] VITALS (12 sets, daily range): BP systolic 100–134; BP diastolic 45–78; PULSE 74–88; RESP 14–17; TEMP 36.6–36.9; O2SAT 90–96
[2023-03-01] MEDS: acetaminophen 500 mg Tablet 1000 MG PO ×2 (05:29→21:12)
[2023-03-01] MEDS: levothyroxine 200 mcg Tablet PO (05:30)
[2023-03-01 05:38] LABS: Basophils % 0.4 %; Eosinophils % 0.4 %; Hematocrit 23.5 % (37.0-47.0); Hemoglobin 7.7 g/dL (11.5-15.3); Lymphocytes # 0.6 10^3/uL (0.8-4.8); Lymphocytes % 5.3 %; Mean Corpuscular HGB Conc 32.8 g/dL (30.0-36.0); Mean Corpuscular Hemoglobin 30.7 pg (28.0-34.0); Mean Corpuscular Volume 93.6 fl (81-99); Mean Platelet Volume 11.4 fL (7.4-10.4); Monocytes % 9.2 %; Neutrophils # 9.01 10^3/uL (1.8-7.7); Neutrophils % 84.1 %; Nucleated Red Blood Cells % 0 %; Platelet Count 220 10^3/cmm (130-400); Red Blood Count 2.51 10^6/uL (4.1-5.3); Red Cell Distribution Width 16.4 % (12.1-15.1); White Blood Count 10.7 10^3/uL (4.0-10.0)
[2023-03-01 05:57] LABS: Estmated Average Glucose 131; Hemoglobin A1C 6.2 % (4.0-6.0)
[2023-03-01 06:13] LABS: Alanine Aminotransferase < 5 U/L (0-33); Alkaline Phosphatase 78 U/L (35-105); Anion Gap 15.9 (5-19); Aspartate Amino Transferase 14 U/L (0-32); Blood Urea Nitrogen 27 mg/dL (8-23); Calcium 8.5 mg/dL (8.5-10.5); Carbon Dioxide 26 mmol/L (22-29); Chloride 93 mmol/L (98-107); Chol HDL Ratio 2.31 mg/dL (0.0-4.40); Cholesterol 97 mg/dL (0-200); Globulin 3.3 g/dL (1.3-4.6); Glucose 147 mg/dL (65-115); HDL Cholesterol 42 mg/dL (60-100); LDL Cholesterol Calculated 38 mg/dL (50-129); Osmolality Calculated 280 mOsm/kg (285-295); Potassium 3.9 mmol/L (3.5-5.1); Sodium 131 mmol/L (136-145); Total Bilirubin 0.3 mg/dL (0.15-1.2); Total Protein 6.3 g/dL (6.6-8.7); Triglycerides 86 mg/dL (0-150); VLDL Cholestrol Calculation 17 mg/dL (0-30)
[2023-03-01 07:18] LABS: Glucose Point of Care 212 mg/dL (70-110)
[2023-03-01] MEDS: pantoprazole DR 40 mg Tablet PO ×2 (08:50→17:16)
[2023-03-01] MEDS: insulin lispro 100 unit/1 mL SUBCUT ×3 (08:50→17:16)
[2023-03-01] MEDS: sucralfate 1 gm/10 mL Oral Liq UDC PO ×2 (08:50→17:15)
[2023-03-01] MEDS: tamsulosin 0.4 mg Capsule PO ×2 (08:50→17:15)
[2023-03-01] MEDS: cyclobenzaprine 10 mg Tablet 5 MG PO ×3 (08:50→21:13)
[2023-03-01] MEDS: enoxaparin 30 mg/0.3 mL Syringe SUBCUT (08:53)
[2023-03-01] MEDS: TORSEmide 20 mg Tablet 100 MG PO (08:53)
[2023-03-01] MEDS: TRAMadol 50 mg Tablet PO (08:58)
--- NOTE | 2023-03-01 10:27 | P.PN_ITS ---
Subjective Subjective: weak, hip pain. poor appetite. no rahman, cp, sob Medications: Reviewed: Yes Medication Review Details: Current Medications Acetaminophen (Acetaminophen 325 Mg Tablet) 650 mg PO Q6H PRN PRN Reason: Mild/Mod Pain Or Temp >/= 101 Acetaminophen (Acetaminophen 500 Mg Tablet) 1,000 mg PO Q8H [facility] Last Admin: 03/01/23 05:29 Dose: 1,000 mg Hydrocodone Bitart/Acetaminophen (Hydrocodone-Acetaminophen 7.5-325 Mg Tablet) 1 tab PO Q6H PRN PRN Reason: Pain Last Admin: 02/28/23 22:31 Dose: 1 tab Amitriptyline HCl (Amitriptyline 25 Mg Tablet) 100 mg PO BEDTIME [facility] Last Admin: 02/28/23 22:30 Dose: 100 mg Carvedilol (Carvedilol 12.5 Mg Tablet) 12.5 mg PO MoWeFr@0600 NIKKY Cyclobenzaprine HCl (Cyclobenzaprine 10 Mg Tablet) 5 mg PO TID [facility] Last Admin: 03/01/23 08:50 Dose: 5 mg Dextrose (Dextrose 50% Syringe 50 Ml) 50 ml IVP PRN PRN; Protocol PRN Reason: hypoglycemia protocol Dextrose (Dextrose 50% Syringe 50 Ml) 25 ml IVP ONCE PRN; Protocol PRN Reason: hypoglycemia protocol Enoxaparin Sodium (Enoxaparin 30 Mg/0.3 Ml Syringe) 30 mg SUBCUT Q24H [facility] Last Admin: 03/01/23 08:53 Dose: 30 mg Glucagon (Glucagon 1 Mg/Ml Inj 1 Ml) 1 mg IM ONCE PRN; Protocol PRN Reason: Adult Acute Hypoglycemia Prot. Sodium Chloride (Sodium Chloride 0.9%) 1,000 mls @ 0 mls/hr IV .Q0M PRN PRN Reason: hypotension or symptomatic Insulin Human Lispro (Insulin Lispro 100 Unit/1 Ml) 0 unit SUBCUT TIDWM [facility]; Protocol Last Admin: 03/01/23 08:50 Dose: 4 unit Levothyroxine Sodium (Levothyroxine 200 Mcg Tablet) 200 mcg PO QAM [facility] Last Admin: 03/01/23 05:30 Dose: 200 mcg Metoclopramide HCl (Metoclopramide 5 Mg/Ml Sdv 2 Ml) 10 mg IVP ONCE PRN PRN Reason: N/V unrelieved by zofrmerritt Morphine Sulfate (Morphine 4 Mg/Ml Sdv 1 Ml) 2 mg IVP Q1H PRN PRN Reason: BREAKTHROUGH PAIN Last Admin: 02/28/23 15:42 Dose: 2 mg Naloxone HCl (Naloxone 0.4 Mg/Ml Sdv) 0.1 mg IVP Q2M PRN PRN Reason: Respiratory rate less than 8. Ondansetron HCl (Ondansetron 2 Mg/Ml Sdv 2 Ml) 4 mg IVP Q6H PRN PRN Reason: NAUSEA AND VOMITING Pantoprazole Sodium (Pantoprazole Dr 40 Mg Tablet) 40 mg PO BID [facility] Last Admin: 03/01/23 08:50 Dose: 40 mg Ropinirole HCl (Ropinirole 1 Mg Tablet) 1 mg PO BEDTIME [facility] Last Admin: 02/28/23 22:31 Dose: 1 mg Senna/Docusate Sodium (Sennosides-Docusate Tablet) 2 tab PO BID [facility] Last Admin: 03/01/23 08:50 Dose: Not Given Sucralfate (Sucralfate 1 Gm/10 Ml Oral Liq Udc) 1 gm PO BID [facility] Last Admin: 03/01/23 08:50 Dose: 1 gm Tamsulosin HCl (Tamsulosin 0.4 Mg Capsule) 0.4 mg PO BID [facility] Last Admin: 03/01/23 08:50 Dose: 0.4 mg Torsemide (Torsemide 20 Mg Tablet) 100 mg PO DAILY [facility] Last Admin: 03/01/23 08:53 Dose: 100 mg Tramadol HCl (Tramadol 50 Mg Tablet) 50 mg PO Q6H PRN PRN Reason: MODERATE PAIN Last Admin: 03/01/23 08:58 Dose: 50 mg Vitals/I&O/Wt Last Vital Signs Temp 98.4 F 03/01/23 08:00 Pulse 84 03/01/23 08:00 Resp 17 03/01/23 08:00 BP 117/50 03/01/23 08:00 Pulse Ox 94 03/01/23 08:00 O2 Del Method Room Air 03/01/23 03:44 O2 Flow Rate 1 02/28/23 08:00 02/28/23 03/01/23 03/01/23 22:59 06:59 14:59 Intake Total 860 / 1390 240 / 240 Output Total 1548 / 1548 Balance -688 / -158 240 / 240 Weight last 48 hrs Weight 68.5 kg Weight 63.503 kg Physical Exam Narrative: uncomfortable in bed vss heent- nc/at, eomi neck supple lungs clear heart reg, +s1, s2 abd soft, nt, nd, + bs ext RUE AVF w/ thrill and bruit no edema hip tender neuro- a,a, o x 2+ Urinary Catheter Management: Spears: Cath Placed During This Visit: yes, but has since been removed by the nurse Reason for Continuing Indwelling Catheter: Decision to DC Catheter Urinary Catheter Date of Insertion: 02/27/23 Urinary Catheter Time of Insertion: 08:30 Date Urinary Catheter Removed: 02/28/23 Time Urinary Catheter Discontinued: 06:01 Data 03/01/23 04:49 03/01/23 04:49 Micro: Microbiology 02/27/23 14:20 Urine Culture - Final Urine,Clean Catch A&P Assessment and plan (1) ESRD (end stage renal disease): 72 yr old female 1. ESRD- s/p HD yesterday. repeat hd tomorrow 2. POD #2 s/p left hip fx repair 3. anemia- h/o GI bleed, post-op bleedd- please transfuse 1 u prbc today or tomorrow on dialysis -epo. if does not get prbc tx, then give iv iron 4. DM 5. hyponatremia -improving w/ dialysis 6. htn- 7. hypothyroidism - tsh 14.6- levothyroxine per medicine seen and examined w/ RN -telehealth visit time spent 30 min Plan ESRD- hd tomorrow anemia- consider prbc tx hip pain per medicine/ orthopedics Attestations Medical Necessity Statement*: per medicine Time Spent in Patient Care: 16 - 35 minutes (>than 50% of time spent in counselling and/or direct pt care on unit) . Coding Level of Care Code Acute Code for Chg Fwd Diagnoses ESRD (end stage renal disease) N18.6
[2023-03-01 12:16] LABS: Glucose Point of Care 203 mg/dL (70-110)
--- NOTE | 2023-03-01 16:19 | PM.PN ---
Subjective Subjective: No acute events overnight. Patient has remained hemodynamically stable and afebrile. On examination patient lying comfortably in bed. Tired appearing. States pain is better after changes in medication but still bothering her with physical therapy. As per nurse patient is a little more groggy after changes in medications. Vitals/I&O/Wt Last Vital Signs Temp 98.2 F 03/01/23 15:55 Pulse 86 03/01/23 15:55 Resp 15 03/01/23 15:55 BP 110/51 03/01/23 15:55 Pulse Ox 96 03/01/23 15:55 O2 Del Method Room Air 03/01/23 03:44 O2 Flow Rate 1 02/28/23 08:00 03/01/23 03/01/23 03/01/23 06:59 14:59 22:59 Intake Total 240 / 240 Balance 240 / 240 Weight last 48 hrs Weight 68.5 kg Physical Exam Const: COMMON NORMALS: no acute distress and patient oriented x3 HENMT: COMMON NORMALS: normocephalic HEAD & SCALP: normocephalic Eye: COMMON NORMALS: Equal, round and reactive pupils present and EOMs intact bilaterally PUPIL: Yes Equal, round and reactive pupils present Neck/C-Spine: COMMON NORMALS: full ROM Lymph: LYMPHATIC: no lymphadenopathy noted Resp: COMMON NORMALS: normal respiratory effort, No retractions, No use of accessory muscles and clear to auscultation bilaterally AUSCULTATION: clear to auscultation bilaterally Cardio: COMMON NORMALS: regular rate, regular rhythm, S1 normal heart sound present and S2 normal heart sound present RATE: regular rate RHYTHM: regular rhythm HEART SOUNDS: S1 normal heart sound present and S2 normal heart sound present GI: COMMON NORMALS: Normal to inspection, nondistended, normoactive bowel sounds present, Soft to palpation and non-tender PALPATION: Yes Soft to palpation Extremity: COMMON NORMALS: no pedal edema Neuro: COMMON NORMALS: patient oriented x3 and CN's II-XII intact bilaterally Psych: COMMON NORMALS: mental status grossly normal Urinary Catheter Management: Spears: Cath Placed During This Visit: yes, but has since been removed by the nurse Reason for Continuing Indwelling Catheter: Decision to DC Catheter Urinary Catheter Date of Insertion: 02/27/23 Urinary Catheter Time of Insertion: 08:30 Date Urinary Catheter Removed: 02/28/23 Time Urinary Catheter Discontinued: 06:01 Data 03/01/23 04:49 03/01/23 04:49 Micro: Microbiology 02/27/23 14:20 Urine Culture - Final Urine,Clean Catch A&P Assessment and plan (1) Closed fracture of left hip: Postoperative day 1. PT/ OT, anticoagulation, perioperative antibiotics as per orthopedic team. Monitor hemoglobin. Stop oxycodone 5 mg every 4 hours as needed for pain as not working enough as per patient. Restart home dose of [place] 7.5 mg every 6 hourly as needed. Add tramadol 50 mg every 6 hourly as needed and Flexeril 5 mg 3 times daily. Qualifiers: Encounter type: initial encounter Qualified Code(s): S72.002A - Fracture of unspecified part of neck of left femur, initial encounter for closed fracture (2) Fall: Mechanical (3) Lower GI bleed requiring more than 4 units of blood in 24 hours, ICU, or surgery: On previous admission. Monitor hemoglobin. Protonix 40 mg oral twice daily. Carafate twice daily. (4) Diabetic retinopathy: (5) Hypothyroidism: Supposed to take 200 mcg 5 times a week Thursday to Thursday. TSH more than 14. Check free T3, free T4. For now switch to levothyroxine 200 mcg daily. Qualifiers: Hypothyroidism type: unspecified Qualified Code(s): E03.9 - Hypothyroidism, unspecified (6) End stage renal disease: Plan End-stage renal disease: Appreciate nephrology recommendations. Dialysis as per session. Hypertension: Goal blood pressure less than 140/90 mmHg. Blood pressures soft to normal. Continue home dose of carvedilol. Plan for today: Continue with current medications. Change frequency of tramadol 50 mg to every 8 hourly as needed. Continue with home dose of [place] and Flexeril. Dialysis as per schedule. Transfuse 1 unit of PRBC today as patient's hemoglobin trending down gradually for last 3 days. Discharge planning: Plan to discharge to SNF for further rehabilitation given hip fracture. Attestations Medical Necessity Statement*: Requires further hospitalization for post-ORIF care, end-stage renal disease on hemodialysis, blood loss anemia while safe discharge planning is sought. Diagnoses Closed fracture of left hip S72.002A Encounter type: initial encounter Fall W19.XXXA Lower GI bleed requiring more than 4 units of blood in 24 hours, ICU, or surgery K92.2 Diabetic retinopathy E11.319 Hypothyroidism E03.9 Hypothyroidism type: unspecified End stage renal disease N18.6
[2023-03-01] MEDS: ferrous gluconate 324 mg Tablet PO (17:16)
[2023-03-01 17:19] LABS: Glucose Point of Care 272 mg/dL (70-110)
[2023-03-01] MEDS: sodium chloride 0.9% 100 mL Bag 50 ML IV (17:25)
[2023-03-01 20:51] LABS: Glucose Point of Care 172 mg/dL (70-110)
[2023-03-01] MEDS: amitriptyline 25 mg Tablet 100 MG PO (21:13)
[2023-03-01] MEDS: ropinirole 1 mg Tablet PO (21:13)
[2023-03-02] VITALS: BP 126/53; PULSE 72; RESP 16; TEMP 36.6; O2SAT 16
[2023-03-02 01:58] LABS: Basophils % 0.3 %; Eosinophils # 0.2 10^3/uL (0.0-0.8); Eosinophils % 1.8 %; Hematocrit 25.5 % (37.0-47.0); Hemoglobin 8.1 g/dL (11.5-15.3); Lymphocytes # 0.8 10^3/uL (0.8-4.8); Lymphocytes % 6.3 %; Mean Corpuscular HGB Conc 31.8 g/dL (30.0-36.0); Mean Corpuscular Hemoglobin 29.6 pg (28.0-34.0); Mean Corpuscular Volume 93.1 fl (81-99); Mean Platelet Volume 11.4 fL (7.4-10.4); Monocytes % 7.9 %; Neutrophils # 10.17 10^3/uL (1.8-7.7); Neutrophils % 83.1 %; Nucleated Red Blood Cells % 0 %; Platelet Count 246 10^3/cmm (130-400); Red Blood Count 2.74 10^6/uL (4.1-5.3); Red Cell Distribution Width 16.8 % (12.1-15.1); White Blood Count 12.2 10^3/uL (4.0-10.0)
[2023-03-02 02:18] LABS: Alanine Aminotransferase < 5 U/L (0-33); Albumin Level 2.9 g/dL (3.5-5.2); Alkaline Phosphatase 83 U/L (35-105); Anion Gap 16.4 (5-19); Aspartate Amino Transferase 10 U/L (0-32); Blood Urea Nitrogen 42 mg/dL (8-23); Calcium 8.7 mg/dL (8.5-10.5); Carbon Dioxide 25 mmol/L (22-29); Chloride 91 mmol/L (98-107); Globulin 3.3 g/dL (1.3-4.6); Glucose 183 mg/dL (65-115); Magnesium 2.1 mg/dL (1.7-2.3); Osmolality Calculated 281 mOsm/kg (285-295); Potassium 4.4 mmol/L (3.5-5.1); Sodium 128 mmol/L (136-145); Total Bilirubin 0.3 mg/dL (0.15-1.2); Total Protein 6.2 g/dL (6.6-8.7)
[2023-03-02 04:00] VITALS: BP 118/69; PULSE 80; RESP 17; TEMP 36.6; O2SAT 94
[2023-03-02 05:16] LABS: Glucose Point of Care 199 mg/dL (70-110)
[2023-03-02 06:00] VITALS: PULSE 82
[2023-03-02] MEDS: carvedilol 12.5 mg Tablet PO (06:12)
[2023-03-02] MEDS: acetaminophen 500 mg Tablet 1000 MG PO ×2 (06:12→14:05)
[2023-03-02] MEDS: levothyroxine 200 mcg Tablet PO (06:12)
[2023-03-02 06:44] LABS: Glucose Point of Care 229 mg/dL (70-110)
[2023-03-02 07:29] VITALS: BP 141/56; PULSE 81; RESP 16; TEMP 37.1
--- NOTE | 2023-03-02 08:17 | P.PN_ITS ---
Subjective Subjective: seen and examined on dialysis. weak, nausea, trace edema, not eating well. denies bleeding. received prbc yesterday Medications: Reviewed: Yes Medication Review Details: Current Medications Acetaminophen (Acetaminophen 325 Mg Tablet) 650 mg PO Q6H PRN PRN Reason: Mild/Mod Pain Or Temp >/= 101 Acetaminophen (Acetaminophen 500 Mg Tablet) 1,000 mg PO Q8H [facility] Last Admin: 03/02/23 06:12 Dose: 1,000 mg Hydrocodone Bitart/Acetaminophen (Hydrocodone-Acetaminophen 7.5-325 Mg Tablet) 1 tab PO Q6H PRN PRN Reason: Pain Last Admin: 02/28/23 22:31 Dose: 1 tab Amitriptyline HCl (Amitriptyline 25 Mg Tablet) 100 mg PO BEDTIME [facility] Last Admin: 03/01/23 21:13 Dose: 100 mg Carvedilol (Carvedilol 12.5 Mg Tablet) 12.5 mg PO MoWeFr@0600 [facility] Last Admin: 03/02/23 06:12 Dose: 12.5 mg Cyclobenzaprine HCl (Cyclobenzaprine 10 Mg Tablet) 5 mg PO TID [facility] Last Admin: 03/01/23 21:13 Dose: 5 mg Dextrose (Dextrose 50% Syringe 50 Ml) 50 ml IVP PRN PRN; Protocol PRN Reason: hypoglycemia protocol Dextrose (Dextrose 50% Syringe 50 Ml) 25 ml IVP ONCE PRN; Protocol PRN Reason: hypoglycemia protocol Enoxaparin Sodium (Enoxaparin 30 Mg/0.3 Ml Syringe) 30 mg SUBCUT Q24H [facility] Last Admin: 03/01/23 08:53 Dose: 30 mg Ferrous Gluconate (Ferrous Gluconate 324 Mg Tablet) 324 mg PO BIDWM [facility] Last Admin: 03/01/23 17:16 Dose: 324 mg Glucagon (Glucagon 1 Mg/Ml Inj 1 Ml) 1 mg IM ONCE PRN; Protocol PRN Reason: Adult Acute Hypoglycemia Prot. Sodium Chloride (Sodium Chloride 0.9%) 1,000 mls @ 0 mls/hr IV .Q0M PRN PRN Reason: hypotension or symptomatic Albumin Human (Albumin) 12.5 gm in 50 mls @ 60 mls/hr IV PRN PRN PRN Reason: Hypotension and/or symptomatic Insulin Human Lispro (Insulin Lispro 100 Unit/1 Ml) 0 unit SUBCUT TIDWM [facility]; Protocol Last Admin: 03/01/23 17:16 Dose: 8 unit Levothyroxine Sodium (Levothyroxine 200 Mcg Tablet) 200 mcg PO QAM [facility] Last Admin: 03/02/23 06:12 Dose: 200 mcg Metoclopramide HCl (Metoclopramide 5 Mg/Ml Sdv 2 Ml) 10 mg IVP ONCE PRN PRN Reason: N/V unrelieved by zofran Naloxone HCl (Naloxone 0.4 Mg/Ml Sdv) 0.1 mg IVP Q2M PRN PRN Reason: Respiratory rate less than 8. Ondansetron HCl (Ondansetron 2 Mg/Ml Sdv 2 Ml) 4 mg IVP Q6H PRN PRN Reason: NAUSEA AND VOMITING Pantoprazole Sodium (Pantoprazole Dr 40 Mg Tablet) 40 mg PO BID [facility] Last Admin: 03/01/23 17:16 Dose: 40 mg Ropinirole HCl (Ropinirole 1 Mg Tablet) 1 mg PO BEDTIME [facility] Last Admin: 03/01/23 21:13 Dose: 1 mg Senna/Docusate Sodium (Sennosides-Docusate Tablet) 2 tab PO BID [facility] Last Admin: 03/01/23 17:17 Dose: Not Given Sodium Chloride (Sodium Chloride 0.9% 100 Ml Bag) 50 ml IV PRN PRN PRN Reason: Blood transfusion prime and flush Stop: 03/02/23 12:06 Last Admin: 03/01/23 17:25 Dose: 50 ml Sucralfate (Sucralfate 1 Gm/10 Ml Oral Liq Udc) 1 gm PO BID [facility] Last Admin: 03/01/23 17:15 Dose: 1 gm Tamsulosin HCl (Tamsulosin 0.4 Mg Capsule) 0.4 mg PO BID [facility] Last Admin: 03/01/23 17:15 Dose: 0.4 mg Tramadol HCl (Tramadol 50 Mg Tablet) 50 mg PO Q8H PRN PRN Reason: MODERATE PAIN Vitals/I&O/Wt Last Vital Signs Temp 98.8 F 03/02/23 07:29 Pulse 81 03/02/23 07:29 Resp 16 03/02/23 07:29 BP 141/56 03/02/23 07:29 Pulse Ox 94 03/02/23 04:00 O2 Del Method Nasal Cannula 03/01/23 19:31 O2 Flow Rate 1 03/01/23 19:31 03/01/23 03/02/23 03/02/23 22:59 06:59 14:59 Intake Total 360 / 600 120 / 720 Balance 360 / 600 120 / 720 Weight last 48 hrs Weight 68.5 kg Physical Exam Narrative: comfortable in bed, nard on dialysis vss heent- nc/at, eomi neck supple lungs clear heart reg, +s1, s2 abd soft, nt, nd, + bs ext RUE AVF w/ thrill and bruit no edema hip tender neuro- a,a, o x 2+ Urinary Catheter Management: Spears: Cath Placed During This Visit: yes, but has since been removed by the nurse Reason for Continuing Indwelling Catheter: Decision to DC Catheter Urinary Catheter Date of Insertion: 02/27/23 Urinary Catheter Time of Insertion: 08:30 Date Urinary Catheter Removed: 02/28/23 Time Urinary Catheter Discontinued: 06:01 Data 03/02/23 01:41 03/02/23 01:41 Micro: Microbiology 02/27/23 14:20 Urine Culture - Final Urine,Clean Catch A&P Assessment and plan (1) ESRD (end stage renal disease): 72 yr old female 1. ESRD- HD now- remove fluids as tolerated 2. POD #3 s/p left hip fx repair 3. anemia- h/o GI bleed, post-op bleed. - s/p 1 u prbc yesterday -continue epo. -may need iron 4. DM 5. hyponatremia -monitor w/ dialysis 6. htn-BP stable 7. hypothyroidism - tsh 14.6- levothyroxine per medicine seen and examined w/ RN -telehealth visit time spent 30 min Plan ESRD- hd today anemia- monitor hgb hip pain per medicine/ orthopedics Attestations Medical Necessity Statement*: esrd, anemia, hip fracture Time Spent in Patient Care: 16 - 35 minutes (>than 50% of time spent in counselling and/or direct pt care on unit) . Coding Level of Care Code Acute Code for Chg Fwd Diagnoses ESRD (end stage renal disease) N18.6
[2023-03-02] MEDS: insulin lispro 100 unit/1 mL SUBCUT (08:33)
[2023-03-02] MEDS: albumin 12.5 GM/50 ML VIAL IV (09:28)
[2023-03-02] MEDS: HYDROcodone-acetaminophen 7.5-325 mg Tablet 1 TAB PO (09:59)
[2023-03-02] MEDS: epoetin alfa 10,000 unit/mL INJ 10000 UNIT SUBCUT (10:55)
--- NOTE | 2023-03-02 11:04 | PC.SOCIAL ---
IMM Update pg 2 of IMM updated and reviewed w/ patient while in dialysis. Copy left @ Bedside and copy dated, initialed and placed in chart.
[2023-03-02 11:30] LABS: Glucose Point of Care 132 mg/dL (70-110)
[2023-03-02 11:52] LABS: SARS Covid-2 Antigen negative (Negative)
[2023-03-02 12:00] VITALS: BP 107/65; PULSE 68; RESP 18; TEMP 36.3; O2SAT 93
--- NOTE | 2023-03-02 12:29 | PM.DCS ---
Discharge Providers Date of Admission: 02/27/23 09:16 Date of Discharge: March 02, 2023 Attending Provider at Admission: Angel Cee DO Attending Provider at Discharge: Angle Palma MD Consults: Dr Will with orthopedics Nephrology Primary Care Provider: Cesar Mendez MD Diagnoses at Discharge Discharge Diagnosis (1) Fall: Details from hospital stay: Mechanical fall, initial encounter at admission, in a patient with history of gait abnormalities Status: Acute (2) Intertrochanteric fracture of left hip: Details from hospital stay: Initial encounter at admission, closed, minimally displaced, s/p surgical repair on 02/27/[address] Status: Acute (3) Anemia: Details from hospital stay: iron deficiency anemia chronically with acute loss post operatively, s/p one unit of blood Status: Chronic Permanent problem details: Stable (4) End stage renal disease: Details from hospital stay: Dialysis MWF Status: Chronic Permanent problem details: Currently on hemodialysis Thursday, Thursday, Thursday (5) Diabetes mellitus: Details from hospital stay: Type 2, noninsulin requiring at home, currently with suboptimal blood sugar control so insulin being prescribed, with nephropathy and retinopathy Status: Chronic (6) Diabetic retinopathy: Status: Chronic (7) Diabetic neuropathy: Status: Chronic (8) HTN (hypertension): Details from hospital stay: On carvedilol. Torsemide presently held as pressures lower end of normal after surgery Status: Chronic Qualifiers: Hypertension type: essential hypertension Qualified Code(s): I10 - Essential (primary) hypertension (9) Hypothyroidism: Details from hospital stay: On levothyroxine, dosing changed to daily at TSH high, primary care provider will need to follow Status: Chronic Qualifiers: Hypothyroidism type: unspecified Qualified Code(s): E03.9 - Hypothyroidism, unspecified (10) Lower GI bleed requiring more than 4 units of blood in 24 hours, ICU, or surgery: Details from hospital stay: No evidence Gi bleed this stay but had significant bleed in 07/2022 Status: Resolved Reason for Visit Reason for Visit: HIP PAIN Brief History: From Dr Yasmeen Garcias Kaiser is a 72 year old female with a past medical of insulin-dependent type 2 diabetes mellitus, end-stage renal disease on dialysis, hypothyroidism, hypertension, has a port in due to difficulty in IV blood draws, history of life-threatening GI bleed, transfusion due to lower GI bleed requiring transfer to tertiary level center, who presents [facility] for a fall.? Patient tells me that this morning she got up to use the bathroom, when she flipped on the light, she twisted and fell on her left side.? She tells me that she has fallen before and she has had a nasal fracture, with a left shoulder fracture in the past operated by Dr. Will.? She denies any preceding lightheadedness, dizziness, no nausea, no vomiting, no chest pain, palpitations, no facial droop, no slurring words, no paresthesias Hospital Course Hospital Course Mrs. Saab was admitted to a medical bed. Orthopedics was consulted and she underwent surgical repair with open reduction and internal fixation with intramedullary device by Dr. Will on February 27. Postoperatively she had some anemia and received transfusion of 1 unit of blood. PT and OT were working with her. Recommendation was for skilled rehabilitation ongoing. Nephrology was consulted during the hospital stay for her usual dialysis on Wednesdays and Fridays. She underwent dialysis on Thursday morning and is being transferred to [facility] for ongoing care. During the hospital stay torsemide was held due to lower range blood pressures and low sodium. It will need to be resumed at discretion of nephrology soon. Adjustments were made to pain medications to optimize pain control and ability to participate in therapy. TSH was checked and was noted to be elevated. Free T3 was low though free T4 was normal. Currently on levothyroxine at 200 mcg daily. Recommend checking repeat thyroid function studies in 4 to 6 weeks and adjusting care as needed. Blood sugars at times were just under 200 but hemoglobin A1c was 6.2. She will be resuming semaglutide after discharge but currently have ordered for sliding scale insulin as needed. This can be adjusted by primary provider as needed. On the day of discharge patient pain was still present but managed with medications as outlined. She was not complaining of any chest pain or nausea. She has had some constipation. Dressings to left hip are intact with marked area of dried blood on the more proximal dressing. She has some mild edema in the left lower extremity compared to the right predominantly in the thigh around surgical site. Pulses are equal at feet. Physical Exam Urinary Catheter Management: Spears: Cath Placed During This Visit: yes, but has since been removed by the nurse Reason for Continuing Indwelling Catheter: Decision to DC Catheter Urinary Catheter Date of Insertion: 02/27/23 Urinary Catheter Time of Insertion: 08:30 Date Urinary Catheter Removed: 02/28/23 Time Urinary Catheter Discontinued: 06:01 Discharge Data Studies Completed and Pending Completed Studies During Hospitalization Category Date Time Status CT cervical spin wo con* [id number] Stat Cat Scan 02/27/23 04:[address] head wo con* [id number] Stat Cat Scan 02/27/23 Completed XR chest 1V portable [id number] Stat Exams 02/27/23 04:31 Completed XR hip LT 2-3V wo/w pel* [id number] Routine Exams 02/27/23 09:08 Completed XR hip LT 2-3V wo/w pel* [id number] Stat Exams 02/27/23 04:31 Completed Radiology Impressions Cervical Spine CT 02/27/23 04:31 IMPRESSION: 1. No acute cervical spine pathology. 2. Peripheral apical interstitial septal thickening is suspicious for mild interstitial edema. 3. 3 mm nodule in the lung apices bilaterally. Finding may be infectious or neoplastic. For patients at low risk (minimal or absent history of smoking and of other known risk factors), no routine follow-up is indicated. For patients at high risk (history of smoking or of other known risk factors), consider optional CT Chest at 12 months. (Reference: Marky) REFERENCES: Marky Le, et al. Guidelines for Management of Incidental Pulmonary Nodules Detected on CT Images: From the Fleischner Society 2017. Radiology. 2017;284(1):228-243. Chest X-Ray 02/27/23 04:31 IMPRESSION: No acute findings. Hip/Pelvis X-Ray 02/27/23 09:08 IMPRESSION: Intraoperative imaging during LEFT hip ORIF. Laboratory Results WBC 12.2 10^3/uL (4.0-10.0) H 03/02/23 01:41 RBC 2.74 10^6/uL (4.1-5.3) L 03/02/23 01:41 Hgb 8.1 g/dL (11.5-15.3) L 03/02/23 01:41 Hct 25.5 % (37.0-47.0) L 03/02/23 01:41 MCV 93.1 fl (81-99) 03/02/23 01:41 MCH 29.6 pg (28.0-34.0) 03/02/23 01:41 MCHC 31.8 g/dL (30.0-36.0) 03/02/23 01:41 RDW 16.8 % (12.1-15.1) H 03/02/23 01:41 Plt Count 246 10^3/cmm (130-400) 03/02/23 01:41 MPV 11.4 fL (7.4-10.4) H 03/02/23 01:41 Neut % (Auto) 83.1 % 03/02/23 01:41 Lymph % (Auto) 6.3 % 03/02/23 01:41 Coffey % (Auto) 7.9 % 03/02/23 01:41 Eos % (Auto) 1.8 % 03/02/23 01:41 Baso % (Auto) 0.3 % 03/02/23 01:41 Neut # (Auto) 10.17 10^3/uL (1.8-7.7) H 03/02/23 01:41 Lymph # (Auto) 0.8 10^3/uL (0.8-4.8) 03/02/23 01:41 Coffey # (Auto) 1.0 10^3/uL (0.2-0.9) H 03/02/23 01:41 Eos # (Auto) 0.2 10^3/uL (0.0-0.8) 03/02/23 01:41 Baso # (Auto) 0.0 10^3/uL (0.0-0.1) 03/02/23 01:41 Nucleated RBC % (auto) 0 % 03/02/23 01:41 Nucleated RBCs # 0.0 /100WBC 03/02/23 01:41 PT 14.60 SECONDS (12.1-14.9) 02/27/23 04:50 INR 1.10 (0.8-1.2) 02/27/23 04:50 Sodium 128 mmol/L (136-145) L 03/02/23 01:41 Potassium 4.4 mmol/L (3.5-5.1) 03/02/23 01:41 Chloride 91 mmol/L (98-107) L 03/02/23 01:41 Carbon Dioxide 25 mmol/L (22-29) 03/02/23 01:41 Anion Gap 16.4 (5-19) 03/02/23 01:41 BUN 42 mg/dL (8-23) H 03/02/23 01:41 Creatinine 5.2 mg/dL (0.5-0.9) H 03/02/23 01:41 GFR Calculation Not Reportable 03/02/23 01:41 Glucose 183 mg/dL (65-115) H 03/02/23 01:41 POC Glucose 132 mg/dL (70-110) H 03/02/23 11:15 Estimat Average Glucose 131 03/01/23 04:49 Hemoglobin A1c 6.2 % (4.0-6.0) H 03/01/23 04:49 Calculated Osmolality 281 mOsm/kg (285-295) L 03/02/23 01:41 Calcium 8.7 mg/dL (8.5-10.5) 03/02/23 01:41 Phosphorus 4.0 mg/dL (2.5-4.5) 03/02/23 01:41 Magnesium 2.1 mg/dL (1.7-2.3) 03/02/23 01:41 Iron 26 ug/dL (37-145) L 02/28/23 05:33 TIBC 149 mcg/dl 02/28/23 05:33 % Saturation 17.4 % (20-50) L 02/28/23 05:33 Unsat Iron Binding 123 ug/dL (112-347) 02/28/23 05:33 Total Bilirubin 0.3 mg/dL (0.15-1.2) 03/02/23 01:41 AST 10 U/L (0-32) 03/02/23 01:41 ALT < 5 U/L (0-33) 03/02/23 01:41 Alkaline Phosphatase 83 U/L (35-105) 03/02/23 01:41 Total Protein 6.2 g/dL (6.6-8.7) L 03/02/23 01:41 Albumin 2.9 g/dL (3.5-5.2) L 03/02/23 01:41 Globulin 3.3 g/dL (1.3-4.6) 03/02/23 01:41 Triglycerides 86 mg/dL (0-150) 03/01/23 04:49 Cholesterol 97 mg/dL (0-200) 03/01/23 04:49 LDL Cholesterol, Calc 38 mg/dL (50-129) L 03/01/23 04:49 Total VLDL Cholesterol 17 mg/dL (0-30) 03/01/23 04:49 HDL Cholesterol 42 mg/dL (60-100) L 03/01/23 04:49 Cholesterol/HDL Ratio 2.31 mg/dL (0.0-4.40) 03/01/23 04:49 Vitamin B12 770 pg/mL (232-1245) 02/28/23 05:33 Folate > 20.0 ng/mL (4.8-37.3) 02/28/23 05:33 TSH 14.63 uIU/mL (0.27-4.20) H 02/27/23 04:50 Free T4 1.31 ng/dL (0.82-1.77) 02/28/23 05:33 Free T3 1.5 PG/ML (2.0-4.4) L 02/28/23 05:33 Urine Color Yellow (Yellow) 02/27/23 14:20 Urine Appearance Clear (CLEAR) 02/27/23 14:20 Urine pH 8 (5-7) H 02/27/23 14:20 Ur Specific [employer] 1.015 (1.005-1.030) 02/27/23 14:20 Urine Protein 3+ (Negative) H 02/27/23 14:20 Urine Glucose (UA) 2+ (Normal) H 02/27/23 14:20 Urine Ketones Negative (Negative) 02/27/23 14:20 Urine Blood 3+ (Negative) H 02/27/23 14:20 Urine Nitrate Negative (Negative) 02/27/23 14:20 Urine Bilirubin Neg (Negative) 02/27/23 14:20 Prot Sulfosalicylic Acd Positive (Negative) 02/27/23 14:20 Urine Urobilinogen Neg mg/dL (Negative) 02/27/23 14:20 Ur Leukocyte Esterase Negative (Negative) 02/27/23 14:20 Urine RBC 25-40 /hpf (0-2) H 02/27/23 14:20 Urine WBC 5-10 /hpf (0-5) H 02/27/23 14:20 Ur Squamous Epith Cells 0-4 /hpf (0-5) H 02/27/23 14:20 Amorphous Sediment Not Reportable 02/27/23 14:20 Urine Bacteria Trace /hpf (NONE) 02/27/23 14:20 Urine Mucus Trace /hpf 02/27/23 14:20 Hep Bs Antigen Non-reactive (Nonreactive) 02/27/23 04:50 Hep Bs Antibody > 1000.0 (11.5-1000) H 02/27/23 04:50 Hepatitis C Antibody Non-reactive (Nonreactive) 02/27/23 04:50 SARS-CoV-2 Ag (Rapid) negative (Negative) 03/02/23 11:20 Blood Type A Positive 03/01/23 12:38 Rho(D) Type Positive 03/01/23 12:38 Antibody Screen TNP 03/01/23 12:38 PEG Antibody Screen Negative 03/01/23 12:38 Crossmatch See Detail 03/01/23 12:38 Vitals Last Vital Signs Temp 97.4 F L 03/02/23 12:00 Pulse 68 03/02/23 12:00 Resp 18 03/02/23 12:00 BP 107/65 03/02/23 12:00 Pulse Ox 93 03/02/23 12:00 O2 Del Method Room Air 03/02/23 12:00 O2 Flow Rate 1 03/02/23 08:00 Discharge Plan Discharge Patient Disposition: Xfer SNF Condition: Stable Prescriptions: New cyclobenzaprine 10 mg Tablet 5 mg PO TID Qty: 30 0RF enoxaparin 30 mg/0.3 mL Syringe 30 mg SUBCUT Q24H Qty: 14 0RF ferrous gluconate 324 mg (37.5 mg iron) Tablet 324 mg PO BIDWM Qty: 60 0RF sucralfate 1 gram tablet 1 g PO BID 56 Days Qty: 112 0RF tramadol 50 mg Tablet 50 mg PO Q8H PRN (Reason: Moderate Pain) Qty: 30 0RF Stool Softener-Laxative 8.6-50 mg Tablet 2 tab PO BID Qty: 120 0RF pantoprazole 40 mg Tablet,Delayed Release (Dr/Ec) 40 mg PO DAILY Qty: 30 0RF insulin aspart (niacinamide) 100 unit/mL (3 mL) cartridge See Rx Instructions .ROUTE .COMPLEX Qty: 15 0RF Rx Instructions: Sliding scale insulin QACHS, moderate dose, monitor for need to decrease dosing with resumption of semaglutide Continued amitriptyline 100 mg tablet 100 mg PO BEDTIME [facility]al 2 Cassius 0.09 gram- 2 kcal/mL liquid 1 ea PO BID PreserVision AREDS-2 250-90-40-1 mg Capsule 1 tab PO QAM tamsulosin 0.4 mg capsule 0.4 mg PO QAM carvedilol 12.5 mg tablet See Rx Instructions .ROUTE .COMPLEX Rx Instructions: 12.5 mg orally three times a week as directed the morning of dialysis on thu,wed,fri ropinirole 1 mg tablet 1 mg PO BEDTIME lidocaine-prilocaine 2.5-2.5 % cream See Rx Instructions .ROUTE .COMPLEX Rx Instructions: APPLY SMALL AMOUNT TO ACCESS SITE (AVF) 1 HOUR BEFORE DIALYSIS. COVER WITH OCCLUSIVE DRESSING (SARAN WRAP) ropinirole 0.5 mg tablet See Rx Instructions .ROUTE .COMPLEX Rx Instructions: 0.5 mg orally before dialysis on thu,thu,fri RenaPlex-D 800 mcg-12.5 mg -2,000 unit tablet 1 tab PO DAILY levothyroxine 200 mcg tablet 200 mcg PO QAM Ozempic 0.25 mg or 0.5 mg(2 mg/1.5 mL) Pen Injector 1.5 mg SUBCUT Q7D Rx Instructions: on sat hydrocodone-acetaminophen 7.5-325 mg tablet 1 tab PO Q6H PRN (Reason: severe pain (scale score 7-10)) Qty: 20 0RF Held torsemide 100 mg tablet 100 mg PO DAILY Hold Instructions: Discuss with Nephrology at next hemodialysis session. Held due to sodium 121 and soft blood pressures (~100 systolic) post op. potassium chloride 10 mEq tablet extended release 10 meq PO QAM Hold Instructions: Discuss with Nephrology at next hemodialysis session. Held due to torsemide being held. No Action (DME) FreeStyle Anita 2 [place] Misc See Rx Instructions .Route Qty: 1 0RF Rx Instructions: check blood sugar (DME) FreeStyle Anita 2 Sensor Kit See Rx Instructions .Route Qty: 3 3RF Rx Instructions: check blood sugar Discharge Orders: Discharge Order (Routine); Ordered 03/02/23 Ordered By: Angle Palma Referrals: [facility] [place] [Outside] Cesar Mendez MD [Primary Care Provider] - 4-7 days Cooper Will MD [Physician] - 03/17/23 9:15 am (post op hip fracture) Discharge Activity: Increase activity as tolerated and As per PT/OT instructions Patient Instructions: Cyclobenzaprine (By mouth), Tramadol (By mouth), Enoxaparin (By injection), Opioid Safety, Pain Management Activity Restrictions/Additional Instructions: Diet: Renal diabetic Therapy: PT, OT Hemodialysis: Thursday, Thursday, Thursday Labs: if does not have lab worked checked through hemodialysis, check BMP, CBC in 1-2 weeks. Needs thyroid function rechecked in 4-6 weeks. Home Medications: torsemide held due to low sodium (121) and low blood pressures (systolic 100-110); potassium held due to torsemide held >> Check at next hemodialysis session with nephrology on when to resume. Other home medications the same New Meds: Tramadol and flexeril addded for short term additional pain control Lovenox for DVT prophylaxis next 2 weeks Carafate and PPI due to history of significant GI blood last fall and currently on anticoagulant Iron due to anemia (got one unit blood) Sennokot S due to constipation with pain control Insulin due to higher blood sugars while here (monitor blood sugars with resumption of semaglutide) PCP follow up can be completed through facility provider Patient's Health Concerns: Pain control, rehabilitation Assessment: Hip Fracture status post surgical repair Plan of Treatment: Skilled rehabilitation then home Discharge Attestations Time Spent in Discharge Care*: greater than 30 min Status at Discharge: Cognitive status at discharge: cognitively intact, Behavioral status at discharge: cooperative, Functional status at discharge: other (Electric [employer] ambulation/therapy status postsurgery), Overall status at discharge: patient is not back to baseline Quality Metrics Clinical Quality Measures [ No reported AMI, CVA or VTE this stay] Coding Level of Care Code 16739 Total time (in minutes) for Discharge: 45 Diagnoses Fall W19.XXXA Intertrochanteric fracture of left hip S72.142A Anemia D64.9 End stage renal disease N18.6 Diabetes mellitus E11.9 Diabetic retinopathy E11.319 Diabetic neuropathy E11.40 HTN (hypertension) I10 Hypertension type: essential hypertension Hypothyroidism E03.9 Hypothyroidism type: unspecified Lower GI bleed requiring more than 4 units of blood in 24 hours, ICU, or surgery K92.2
--- NOTE | 2023-03-02 13:29 | PC.NURSE ---
This nurse gave report to Maria D at [facility] via phone at 1330. Patient awaiting transport at this time.
[2023-03-02] MEDS: cyclobenzaprine 10 mg Tablet 5 MG PO (14:05)
[2023-03-02 14:06] VITALS: BP 130/108; PULSE 69; RESP 16; TEMP 36
--- NOTE | 2023-03-02 14:29 | PC.OT ---
OT TREATMENT HELD TODAY DUE TO SCHEDULED PATIENT D/C TODAY
== END 2023-03-02 14:00 | disposition skilled nursing facility (03) | DRG 480 ==
LOC: ER 05:27 → OR 07:25 → MEDSURG 09:16
PROVIDERS: Family Medicine; Internal Medicine; Internal Medicine Nephrology; Orthopaedic Surgery; Student in an Organized Health Care Education/Training Program; Admitting Provider Surgery; Emergency Provider Emergency Medicine; PCP Family Medicine; Visit Provider Hospitalist
PROC: 0QH736Z Insertion of Intramedullary Internal Fixation Device into Left Upper Femur, Percutaneous Approach (ICD-10-PCS; CPT 27245; principal; 2023-02-27 08:00)
DX: S72.142A Displaced intertrochanteric fracture of left femur, initial encounter for closed fracture (principal); N18.6 End stage renal disease; D62 Acute posthemorrhagic anemia; I12.0 Hypertensive chronic kidney disease with stage 5 chronic kidney disease or end stage renal disease; E87.1 Hypo-osmolality and hyponatremia; W01.0XXA Fall on same level from slipping, tripping and stumbling without subsequent striking against object, initial encounter; D50.0 Iron deficiency anemia secondary to blood loss (chronic); E11.22 Type 2 diabetes mellitus with diabetic chronic kidney disease; Z99.2 Dependence on renal dialysis; E11.319 Type 2 diabetes mellitus with unspecified diabetic retinopathy without macular edema; E11.40 Type 2 diabetes mellitus with diabetic neuropathy, unspecified; E03.9 Hypothyroidism, unspecified; Z79.891 Long term (current) use of opiate analgesic; M85.852 Other specified disorders of bone density and structure, left thigh; E78.5 Hyperlipidemia, unspecified; Z85.3 Personal history of malignant neoplasm of breast
CPT/HCPCS: 36415; 36416; 36430; 36591; 51702; 70450; 71045; 72125; 73502; 76000; 80048; 80053; 80061; 81001; 82607; 82746; 82962; 83036; 83540; 83550; 83735; 84100; 84439; 84443; 84481; 85025; 85610; 86706; 86803; 86850; 86900; 86920; 87086; 87340; 87426; 90935; 93005; 94664; 96365; 96372; 96375; 97110; 97162; 97166; 97530; 97535; 99285; C1713; J0690; J1170; J1650; J1815; J2270; J2405; J2704; J3010; J7030; P9016; P9047; Q4081

== ENCOUNTER 2023-03-05 11:52 | Outpatient (CLI) | payer MEDICARE, OTHER, SELFPAY ==
--- NOTE | 2023-03-05 11:59 | MR_ITS ---
WS: [id number] MRI ABDOMEN with and without CONTRAST. COMPARISON: 12/10/2017 Multiplanar, multisequence imaging is performed with and without contrast. MultiHance 14 mL IV. History: History of breast cancer. Prior cholecystectomy. Colon polyps. No significant pleural effusion. Heart size is top normal. Liver is top normal size at 17 cm. Normal size spleen. No cysts or solid lesions or abnormal enhancem ent in the liver. Normal portal vein. No bile duct dilatation. Prior cholecystectomy. No mass or recu rrent abnormality in the gallbladder fossa. Pancreas is atrophic. No pancreatic pseudocyst or edema. Mild perinephric stranding, greatest on the LEFT kidney with no obstruction. No solid mass. 9 mm LEFT renal cyst lower pole. Normal size aorta. No adenopathy or ascites. MR/MR abdomen wo/w con* [id number] IMPRESSION: 1. Status post cholecystectomy. 2. No renal obstruction. 3. No metastatic disease in the liver. 4. LEFT renal cyst.
== END 2023-03-05 11:53 | disposition home or self-care (01) ==
LOC: RAD 11:54
PROVIDERS: PCP Family Medicine; Visit Provider Internal Medicine Nephrology
DX: R11.0 Nausea (principal); R19.01 Right upper quadrant abdominal swelling, mass and lump; R19.02 Left upper quadrant abdominal swelling, mass and lump; R63.4 Abnormal weight loss; Z90.49 Acquired absence of other specified parts of digestive tract
CPT/HCPCS: 74183; A9577

== ENCOUNTER → 2023-03-17 09:13 | Outpatient (BNVA) | payer MEDICARE, OTHER, SELFPAY | PROVIDERS: PCP Family Medicine; Visit Provider Nurse Practitioner Family | DX: S72.142A Displaced intertrochanteric fracture of left femur, initial encounter for closed fracture (principal); X58.XXXA Exposure to other specified factors, initial encounter; Z98.890 Other specified postprocedural states | CPT/HCPCS: 73502; 99024 ==

== ENCOUNTER 2023-04-13 13:54 | Inpatient (IN) | payer MEDICARE, OTHER, SELFPAY ==
[2023-04-13 13:57] VITALS: PULSE 77; RESP 18; TEMP 36.8; O2SAT 95; BMI 24.6
--- NOTE | 2023-04-13 13:58 | XRR_ITS ---
PROCEDURE INFORMATION: Exam: XR Right Hip Exam date and time: 04/13/2023 2:12 PM Age: 72 years old Clinical indication: Injury or trauma; Fall; Blunt trauma (contusions or hematomas); Right; Hip TECHNIQUE: Imaging protocol: Radiologic exam of the right hip. Views: 1 view hip with pelvis when performed. COMPARISON: CT abdomen pelvis wo con [id number] 07/19/2022 7:39 AM FINDINGS: Bones/joints: There is a mildly displaced intertrochanteric fracture of the proximal right femur with slight varus angulation at the fracture site. Normal femoroacetabular alignment is maintained. There are prominent bilateral acetabular enthesophytes. There is a healed fracture of the proximal left femur transfixed by a dynamic compression screw. The visible portion of the pelvis is intact. Soft tissues: Vascular calcification is present. Visible soft tissues are unremarkable. XR/XR hip RT 2-3V wo/w pel* [id number] IMPRESSION: Acute intertrochanteric fracture of the right femur.
--- NOTE | 2023-04-13 14:14 | XRR_ITS ---
PROCEDURE INFORMATION: Exam: XR Chest Exam date and time: 04/13/2023 2:20 PM Age: 72 years old Clinical indication: Injury or trauma; Fall; Blunt trauma (contusions or hematomas); Additional info: Hip fracture TECHNIQUE: Imaging protocol: Radiologic exam of the chest. Views: 1 view. COMPARISON: CR XR chest 1V portable [id number] 02/27/2023 5:17 AM FINDINGS: Tubes, catheters and devices: There is a left chest port with the line tip appropriately positioned in the lower SVC near the cavoatrial junction. Lungs: There is no consolidation. Central interstitial markings are prominent, similar to the findings on 02/27/2023. Pleural spaces: There is no pleural effusion or pneumothorax. Heart/Mediastinum: There is mild enlargement of the cardiac silhouette. Bones/joints: There is a healed fracture of the left proximal humerus. XR/XR chest 1V portable [id number] IMPRESSION: 1. Probable mild chronic or recurrent interstitial edema similar to the findings on 02/27/2023. 2. No pulmonary consolidation.
--- NOTE | 2023-04-13 14:18 | W.ED.FALL ---
HPI - Fall General: Chief Complaint: Fall Stated Complaint: rt hip pain Time Seen by Provider: 04/13/23 13:58 Source: patient Mode of arrival: EMS History of Present Illness: 72-year-old female [facility]. She was here rehabbing after a right hip fracture she went to use her walker had a ground-level mechanical fall she has external rotation and shortening of her right leg now with severe pain. She was on Lovenox [facility] the [facility] she has a history of diabetes mellitus and is on insulin as well as Ozempic. She denies any other injuries. complaint: fall Onset (ago): hour(s) Fall from: standing Fall witnessed: yes, by living facility staff Place fall occurred: [facility] Loss of consciousness: None Prolonged down time: no Context: tripped/slipped Location of injury - extremities: Right: thigh (Right hip) Quality: sharp Associated symptoms-after fall: Reports difficulty walking; Denies abdominal pain, chest pain, confusion, headache(s), hematuria, lightheadedness, neck pain, numbness, short of breath, vertigo or weakness Review of Systems Const: Denies: fever(s), chills, body aches, change in appetite, fatigue or malaise ENMT: Denies: throat pain, ear or mastoid pain, nasal discharge or nasal congestion Card: Denies: chest pain, palpitations, irregular heart rhythm or lightheadedness Resp: Denies: dyspnea, productive cough or non-productive cough GI: Denies: abdominal pain, nausea or vomiting : Denies: dysuria, urinary frequency, urinary urgency or hematuria Musc: Reports: joint pain (Right hip); Denies: neck pain Skin/Breast: Denies: rash or pruritus Neuro: Reports: difficulty walking; Denies: headache(s), vertigo or confusion PFSH ED PFSH: Medical History Abdominal bloating Cataract Cerebellar stroke syndrome Chronic kidney disease (CKD) Closed fracture of left proximal humerus Compression fracture of L4 vertebra Hemodialysis patient History of peritoneal dialysis HTN (hypertension) Hx of breast cancer Hydronephrosis Hyperlipidemia Hypothyroidism Incomplete bladder emptying Kidney stones Lower GI bleed requiring more than 4 units of blood in 24 hours, ICU, or surgery (07/2022) Microcytic anemia Obstructive pyelonephritis Pleural effusion on right SOB (shortness of breath) Spondylolisthesis at L4-L5 level Type 2 diabetes mellitus Ureteral obstruction, right HX OF RIGHT URETEROSCOPY WITH STENT PLACEMENT Surgical History H/O knee surgery H/O skin graft H/O tubal ligation History of cholecystectomy History of kidney surgery History of lumpectomy of left breast History of surgery Right-sided pleurodesis and Pleurx catheter placement History of surgery on arm Hx of cataract surgery Hx of tonsillectomy S/P dialysis catheter insertion Peritoneal dialysis catheter placement x3 according to patient, revisions had to be performed in [facility] at an outside facility Hemodialysis catheter placement S/P hemodialysis catheter insertion Right IJ: Removed Family History Mother Stroke Father Stroke Social History Smoking and tobacco status: never smoked Alcohol intake: never Substance/Drug Use: never Lives independently: Yes Household members: spouse Marital status: Current occupational status: employed Do you think of yourself as: Straight/Heterosexual Current gender identity: Female Physical Exam Const: GENERAL APPEARANCE: cooperative and comfortable ORIENTATION/CONSCIOUSNESS: Yes awake, Yes oriented to person, Yes oriented to place and Yes oriented to time HENMT: COMMON NORMALS: normocephalic, atraumatic and hearing grossly normal bilaterally HEAD & SCALP: normocephalic and atraumatic Resp: COMMON NORMALS: normal respiratory effort, No retractions, No use of accessory muscles and clear to auscultation bilaterally AUSCULTATION: clear to auscultation bilaterally Cardio: COMMON NORMALS: regular rate, regular rhythm and No murmurs present (Cardio) RATE: regular rate RHYTHM: regular rhythm GI: COMMON NORMALS: Soft to palpation and No hepatosplenomegaly present AUSCULTATION: Yes normoactive bowel sounds PALPATION: Yes Soft to palpation, No Tenderness to palpation present (GI), No Guarding due to palpation present (GI) and Yes No hepatosplenomegaly present Extremity: COMMON NORMALS: normal to inspection, capillary refill normal, no clubbing, cyanosis or edema, no calf tenderness and no pedal edema Neuro: SENSORIUM/ORIENTATION: Yes oriented to person, Yes oriented to place and Yes oriented to time Skin: COMMON NORMALS: no rashes or lesions noted GENERAL SKIN EXAM: no rashes or lesions noted Course Vital Signs: Vital signs: Vital Signs Temperature 98.1 F 04/14/23 08:00 Pulse Rate 76 04/14/23 08:00 Respiratory Rate 18 04/14/23 08:00 Blood Pressure 172/65 04/14/23 08:00 Pulse Oximetry 97 04/14/23 08:00 Oxygen Delivery Me thod Nasal Cannula 04/14/23 08:00 MDM - Fall Medical Decision Making Right intertrochanteric hip fracture on x-ray. Will discuss with on-call orthopedics admit to the [facility] under hospitalist service. Preoperative labs ordered Medical Records I reviewed the patient's medical records. Lab Data I reviewed the patient's lab results. 04/14/23 03:48 04/14/23 03:48 Radiology Impressions Chest X-Ray 04/13/23 14:14 IMPRESSION: 1. Probable mild chronic or recurrent interstitial edema similar to the findings on 02/27/2023. 2. No pulmonary consolidation. Femur X-Ray 04/13/23 14:28 IMPRESSION: Fracture through the distal femoral neck. Hip/Pelvis X-Ray 04/13/23 14:28 IMPRESSION: Left hip fixation device in expected alignment traversing known intertrochanteric left hip fracture. Knee X-Ray 04/13/23 14:28 IMPRESSION: No acute findings. Lumbar Spine CT 04/13/23 19:46 IMPRESSION: 1. Acute superior L2 mild endplate depression fracture, and opposing L3-L4 endplate depression fractures. 2. Degenerative disc and joint disease with multilevel moderate spinal and foraminal stenosis. COMMENTS: Consistent with the [employer]'s Incidental Findings Committee white paper (J Am Ramon Radiol 2018): Any incidental renal lesion less than 1 cm or classified as too small to characterize, or any incidental cystic renal lesion characterized as simple-appearing, is likely benign. No follow-up imaging is recommended for these lesions per consensus recommendations based on imaging criteria. Thoracic Spine CT 04/13/23 19:46 IMPRESSION: 1. Superior T5 age-indeterminate but possibly recent endplate depression fracture. 2. Age-indeterminate superior T5 mild endplate depression deformity. Laboratory Results WBC 16.1 10^3/uL (4.0-10.0) H 04/13/23 16:21 RBC 3.70 10^6/uL (4.1-5.3) L 04/13/23 16:21 Hgb 10.2 g/dL (11.5-15.3) L 04/13/23 16:21 Hct 33.0 % (37.0-47.0) L 04/13/23 16:21 MCV 89.2 fl (81-99) 04/13/23 16:21 MCH 27.6 pg (28.0-34.0) L 04/13/23 16:21 MCHC 30.9 g/dL (30.0-36.0) 04/13/23 16:21 RDW 16.2 % (12.1-15.1) H 04/13/23 16:21 Plt Count 328 10^3/cmm (130-400) 04/13/23 16:21 MPV 10.7 fL (7.4-10.4) H 04/13/23 16:21 Neut % (Auto) 92.1 % 04/13/23 16:21 Lymph % (Auto) 3.4 % 04/13/23 16:21 Hern[place] % (Auto) 2.8 % 04/13/23 16:21 Eos % (Auto) 0.2 % 04/13/23 16:21 Baso % (Auto) 0.2 % 04/13/23 16:21 Neut # (Auto) 14.83 10^3/uL (1.8-7.7) H 04/13/23 16:21 Lymph # (Auto) 0.5 10^3/uL (0.8-4.8) L 04/13/23 16:21 [place] # (Auto) 0.5 10^3/uL (0.2-0.9) 04/13/23 16:21 Eos # (Auto) 0.0 10^3/uL (0.0-0.8) 04/13/23 16:21 Baso # (Auto) 0.0 10^3/uL (0.0-0.1) 04/13/23 16:21 Nucleated RBC % (auto) 0.1 % 04/13/23 16:21 Nucleated RBCs # 0.0 /100WBC 04/13/23 16:21 PT 14.60 SECONDS (12.1-14.9) 04/13/23 16:21 INR 1.11 (0.8-1.2) 04/13/23 16:21 APTT 33.1 SECONDS (23.9-36.7) 04/13/23 16:21 Sodium 136 mmol/L (136-145) 04/13/23 16:21 Potassium 3.6 mmol/L (3.5-5.1) 04/13/23 16:21 Chloride 97 mmol/L (98-107) L 04/13/23 16:21 Carbon Dioxide 29 mmol/L (22-29) 04/13/23 16:21 Anion Gap 13.6 (5-19) 04/13/23 16:21 BUN 13 mg/dL (8-23) 04/13/23 16:21 Creatinine 2.2 mg/dL (0.5-0.9) H 04/13/23 16:21 GFR Calculation Not Reportable 04/13/23 16:21 Glucose 187 mg/dL (65-115) H 04/13/23 16:21 Calculated Osmolality 287 mOsm/kg (285-295) 04/13/23 16:21 Calcium 8.8 mg/dL (8.5-10.5) 04/13/23 16:21 Total Bilirubin 0.5 mg/dL (0.15-1.2) 04/13/23 16:21 AST 15 U/L (0-32) 04/13/23 16:21 ALT 7 U/L (0-33) 04/13/23 16:21 Alkaline Phosphatase 173 U/L (35-105) H 04/13/23 16:21 Total Protein 6.9 g/dL (6.6-8.7) 04/13/23 16:21 Albumin 3.5 g/dL (3.5-5.2) 04/13/23 16:21 Globulin 3.4 g/dL (1.3-4.6) 04/13/23 16:21 Discharge Plan Discharge Patient Disposition: Admitted As Inpatient Admit Provider: Hung Gonsalez Clinical Impression: Closed intertrochanteric fracture of right hip, End stage renal disease, Anemia, Diastolic dysfunction, Hypothyroidism, Diabetes type 2, uncontrolled Condition: Stable Coding Level of Care Code ED 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
--- NOTE | 2023-04-13 14:28 | XRR_ITS ---
PROCEDURE INFORMATION: Exam: XR Right Femur Exam date and time: 04/13/2023 2:36 PM Age: 72 years old Clinical indication: Injury or trauma; Fall; Blunt trauma; Thigh or upper leg; Right; Additional info: Hi( FX TECHNIQUE: Imaging protocol: Radiologic exam of the right femur. Views: 2 views. COMPARISON: NM bone scan whole body* [id number] 01/14/2019 11:01 AM FINDINGS: Bones/joints: Fracture noted through the distal femoral neck. Soft tissues: Unremarkable. XR/XR femur RT min 2V* [id number] IMPRESSION: Fracture through the distal femoral neck.
--- NOTE | 2023-04-13 14:28 | XRR_ITS ---
PROCEDURE INFORMATION: Exam: XR Left Hip Exam date and time: 04/13/2023 2:41 PM Age: 72 years old Clinical indication: Injury or trauma; Fall; Blunt trauma (contusions or hematomas); Prior surgery; Surgery date: 6+ months; Surgery type: Left hip; Additional info: Hip fx/trauma TECHNIQUE: Imaging protocol: Radiologic exam of the left hip. Views: 2 or 3 views hip with pelvis when performed. COMPARISON: CR XR hip LT 2-3V wo/w pel* [id number] 03/17/2023 9:17 AM FINDINGS: Bones/joints: Left hip fixation device noted in expected alignment traversing an intertrochanteric left hip fracture. No acute findings. Soft tissues: Unremarkable. XR/XR hip LT 2-3V wo/w pel* [id number] IMPRESSION: Left hip fixation device in expected alignment traversing known intertrochanteric left hip fracture.
--- NOTE | 2023-04-13 14:28 | XRR_ITS ---
PROCEDURE INFORMATION: Exam: XR Right Knee Exam date and time: 04/13/2023 2:39 PM Age: 72 years old Clinical indication: Injury or trauma; Fall; Blunt trauma; Knee; Right; Additional info: Hip FX TECHNIQUE: Imaging protocol: Radiologic exam of the right knee. Views: 3 views. COMPARISON: [place] [id number] 12/13/2019 12:54 PM FINDINGS: Bones/joints: Osseous structures are intact. Negative for fracture. Moderate to severe DJD centered in the medial and patellofemoral compartments. Soft tissues: Normal. XR/XR knee RT 3V* [id number] IMPRESSION: No acute findings.
--- NOTE | 2023-04-13 14:56 | ECG_ITS ---
[facility] Test Date: 2023-04-13 Pat Name: María Saab Department: Room: Gender: Female Pharmacognosist: : [id number] Requested By: Florian Garcias Order Number: [id number] Baron MD: Gilbert Bass M.D. Measurements Intervals [place] Rate: 79 P: 58 IA: 117 QRS: -54 QRSD: 123 T: 57 QT: 433 QTc: 497 Interpretive Statements SINUS RHYTHM WITH SHORT IA INTERVAL LEFT AXIS DEVIATION [QRS AXIS < -30] POSSIBLE LEFT VENTRICULAR HYPERTROPHY [VOLTAGE CRITERIA PLUS LAE OR QRS WIDENING] NONSPECIFIC T-WAVE ABNORMALITY Compared to ECG 02/27/2023 04:45:12 Short IA interval now present T-wave abnormality now present Intraventricular conduction delay no longer present Electronically Signed On 04-13-2023 16:42:52 CDT by Gilbert Bass M.D. [id number]
[2023-04-13 15:07] VITALS: BP 183/72; PULSE 82; RESP 16; O2SAT 96
[2023-04-13] MEDS: ondansetron 2 mg/ML SDV 2 mL 4 MG IVP (15:22)
[2023-04-13] MEDS: morphine 4 mg/mL SDV 1 mL IVP ×3 (15:23→22:14)
[2023-04-13 15:25] VITALS: BP 183/72; PULSE 81; RESP 18; O2SAT 96
[2023-04-13 16:34] LABS: Basophils % 0.2 %; Eosinophils % 0.2 %; Hemoglobin 10.2 g/dL (11.5-15.3); Lymphocytes # 0.5 10^3/uL (0.8-4.8); Lymphocytes % 3.4 %; Mean Corpuscular HGB Conc 30.9 g/dL (30.0-36.0); Mean Corpuscular Hemoglobin 27.6 pg (28.0-34.0); Mean Corpuscular Volume 89.2 fl (81-99); Mean Platelet Volume 10.7 fL (7.4-10.4); Monocytes # 0.5 10^3/uL (0.2-0.9); Monocytes % 2.8 %; Neutrophils # 14.83 10^3/uL (1.8-7.7); Neutrophils % 92.1 %; Nucleated Red Blood Cells % 0.1 %; Platelet Count 328 10^3/cmm (130-400); Red Cell Distribution Width 16.2 % (12.1-15.1); White Blood Count 16.1 10^3/uL (4.0-10.0)
--- NOTE | 2023-04-13 16:34 | PM.HP ---
Providers/Chief Complaint Primary Care Provider: Cesar Mendez MD Chief Complaint: rt hip pain History of Present Illness Pleasant 72-year-old lady with history of fall and fracture of left hip, status postrepair, has been undergoing rehabilitation at half-way and was just about to finish, fell down while turning to reach for her walker, subsequently with pain in right hip, shortened and everted limb noted on assessment, with finding of distal right femoral neck fracture. Review of Systems Const: Denies: fever(s), chills, body aches or malaise ENMT: Denies: throat pain or oral sores Card: Denies: chest pain, edema, pre-syncope or dyspnea on exertion Resp: Denies: dyspnea, productive cough, change in phlegm color or hemoptysis GI: Denies: abdominal pain, nausea, vomiting, diarrhea, constipation, hematochezia or melena : Denies: flank pain, urinary frequency or hematuria Musc: Reports: extremity pain and joint pain; Denies: back pain, joint swelling or joint redness Skin/Breast: Denies: rash or new lesions Neuro: Denies: headache(s), numbness in extremities, weakness in extremities, dizziness, confusion or seizure-like activity Medications/Allergies Home Medications Medication Instructions Recorded Confirmed Last Taken Type amitriptyline 100 mg tablet 100 mg PO BEDTIME 10/02/20 04/13/23 07/18/22 History tamsulosin 0.4 mg capsule 0.4 mg PO QAM 07/18/22 04/13/23 07/18/22 History flash glucose scanning reader #1 ea 12/15/22 04/13/23 Unknown Rx (FreeStyle Anita 2 [place]) flash glucose sensor (FreeStyle #3 ea 12/15/22 04/13/23 Unknown Rx Anita 2 Sensor kit) carvedilol 12.5 mg tablet See Rx Instructions .Route .COMPLEX 02/27/23 04/13/23 Unknown History levothyroxine 200 mcg tablet 200 mcg PO QAM 02/27/23 04/13/23 Unknown History lidocaine-prilocaine 2.5 %-2.5 % See Rx Instructions .Route .COMPLEX 02/27/23 04/13/23 Unknown History topical cream ropinirole 0.5 mg tablet See Rx Instructions .Route .COMPLEX 02/27/23 04/13/23 1 Week Ago History ~04/14/23 ropinirole 1 mg tablet 1 mg PO BEDTIME 02/27/23 04/13/23 Unknown History vit B,C-folic ac 800 mcg-zinc 12.5 1 tab PO DAILY 02/27/23 04/13/23 Unknown History mg-selen-D3 2,000 unit-vit E tablet (RenaPlex-D) cyclobenzaprine 10 mg tablet 5 mg PO TID #30 tabs 03/02/23 04/13/23 Unknown Rx ferrous gluconate 324 mg (37.5 mg 324 mg PO BIDWM #60 tabs 03/02/23 04/13/23 Unknown Rx iron) tablet hydrocodone 7.5 mg-acetaminophen 1 tab PO Q6H PRN severe pain 03/02/23 04/13/23 Unknown Rx 325 mg tablet (scale score 7-10) #20 tabs pantoprazole 40 mg tablet,delayed 40 mg PO DAILY #30 tabs 03/02/23 04/13/23 Unknown Rx release sennosides 8.6 mg-docusate sodium 2 tab PO BID #120 tabs 03/02/23 04/13/23 Unknown Rx 50 mg tablet (Stool Softener-Laxative) sucralfate 1 gram tablet 1 g PO BID 8 weeks #112 tabs 03/02/23 04/13/23 Unknown Rx tramadol 50 mg tablet 50 mg PO Q8H PRN Moderate Pain #30 03/02/23 04/13/23 Unknown Rx tabs amlodipine 5 mg tablet (Norvasc) 5 mg PO DAILY 04/13/23 04/13/23 Unknown History bisacodyl 10 mg rectal suppository 10 mg TX DAILY PRN Constipation 04/13/23 04/13/23 Unknown History (Dulcolax (bisacodyl)) dulaglutide 0.75 mg/0.5 mL 0.75 mg SUBCUT Q7D 04/13/23 04/13/23 Unknown History subcutaneous pen injector (Trulicity) magnesium hydroxide 400 mg/5 mL 15 ml PO DAILY PRN Constipation 04/13/23 04/13/23 Unknown History oral suspension (Milk of Magnesia) mv-mn-folic 200 mcg-vit K 15 1 cap PO DAILY 04/13/23 04/13/23 Unknown History mcg-lutein 5 mg-zeaxanthin 1 mg capsule (PreserVision AREDS 2 Plus Multivit) sodium phosphates 19 gram-7 118 ml TX DAILY PRN Constipation 04/13/23 04/13/23 Unknown History gram/118 mL enema (Fleet Enema) Allergies Allergy/AdvReac Type Severity Reaction Status Date / Time Penicillins Allergy Mild ALGY-Rash Verified 04/13/23 14:00 propoxyphene [From Darvon] Allergy Mild ALGY-Rash Verified 04/13/23 14:00 codeine Allergy ALGY-Rash Verified 04/13/23 14:00 PFSH Acute PFSH: Medical History Abdominal bloating Cataract Cerebellar stroke syndrome Chronic kidney disease (CKD) Closed fracture of left proximal humerus Compression fracture of L4 vertebra Hemodialysis patient History of peritoneal dialysis HTN (hypertension) Hx of breast cancer Hydronephrosis Hyperlipidemia Hypothyroidism Incomplete bladder emptying Kidney stones Lower GI bleed requiring more than 4 units of blood in 24 hours, ICU, or surgery (07/2022) Microcytic anemia Obstructive pyelonephritis Pleural effusion on right SOB (shortness of breath) Spondylolisthesis at L4-L5 level Type 2 diabetes mellitus Ureteral obstruction, right HX OF RIGHT URETEROSCOPY WITH STENT PLACEMENT Surgical History H/O knee surgery H/O skin graft H/O tubal ligation History of cholecystectomy History of kidney surgery History of lumpectomy of left breast History of surgery Right-sided pleurodesis and Pleurx catheter placement History of surgery on arm Hx of cataract surgery Hx of tonsillectomy S/P dialysis catheter insertion Peritoneal dialysis catheter placement x3 according to patient, revisions had to be performed in [facility] at an outside facility Hemodialysis catheter placement S/P hemodialysis catheter insertion Right IJ: Removed Family History Mother Stroke Father Stroke Social History Smoking and tobacco status: never smoked Alcohol intake: never Substance/Drug Use: never Lives independently: Yes Household members: spouse Marital status: Current occupational status: employed Do you think of yourself as: Straight/Heterosexual Current gender identity: Female Vitals/I&O/Wt Last Vital Signs Temp 98.3 F 04/13/23 13:57 Pulse 81 04/13/23 15:25 Resp 18 04/13/23 15:25 BP 183/72 04/13/23 15:25 Pulse Ox 96 04/13/23 15:25 O2 Del Method Room Air 04/13/23 15:25 Weight last 48 hrs Weight 63.049 kg Physical Exam Narrative: at bedside Const: COMMON NORMALS: patient oriented x3 and alert GENERAL APPEARANCE: cooperative ORIENTATION/CONSCIOUSNESS: Yes awake HENMT: COMMON NORMALS: oropharynx normal Neck/C-Spine: COMMON NORMALS: no JVD Resp: COMMON NORMALS: normal respiratory effort and clear to auscultation bilaterally AUSCULTATION: clear to auscultation bilaterally Cardio: COMMON NORMALS: no JVD, regular rhythm, S1 normal heart sound present, S2 normal heart sound present and No murmurs present (Cardio) RHYTHM: regular rhythm HEART SOUNDS: S1 normal heart sound present and S2 normal heart sound present GI: COMMON NORMALS: Normal to inspection, nondistended, normoactive bowel sounds present, Soft to palpation and non-tender PALPATION: Yes Soft to palpation Extremity: COMMON NORMALS: no joint enlargement and no pedal edema OTHER: RLE shortened, everted. Extremity well perfused, warm to touch. Dopplerable PT and DP pulses. Neuro: COMMON NORMALS: patient oriented x3 and moves all extremities SENSORIUM/ORIENTATION: Yes alert Skin: COMMON NORMALS: no rashes or lesions noted GENERAL SKIN EXAM: no rashes or lesions noted Data 04/13/23 16:21 04/13/23 16:21 A&P Assessment and plan (1) Closed intertrochanteric fracture of right hip: Fell down while turning to reach for her walker. Right hip fracture. She would like to get it repaired. She had just had left hip fracture and repair and had just been getting through her physical therapy. She denies any chest pain or pressure with ambulation, does not get winded or short of breath. Denies any other recent new symptoms. Her blood pressure is noted elevated in ER. She did have postoperative anemia last time, hemoglobin currently noted 10.2. This is better than at discharge back in February. We will need to monitor hemoglobin. Noted hypertensive, blood pressure 183/72. Suspect related to pain. EKG obtained in ER with possible LVH likely secondary hypertension. Nonspecific T wave abnormality. She has no chest pain or pressure. Pending additional assessment and discussion with orthopedics. 1 dose heparin VTE prophylaxis anticipation of procedure. Note n.p.o. after midnight. Pain control as needed. Monitor vital signs. Discussed with surgery, she is ESRD, also on TTE noted mitral regurgitation. May be responsible for the findings of some possible mild chronic recurrent interstitial edema on chest x-ray. She is oxygenating well on room air, is not dyspneic. However, discussed caution with volume, avoiding volume overload. We will consult nephrology as well with consideration of whether she might end up needing early/additional dialysis tomorrow before her usual day on Thursday. Discussed with nephrology. We will request repeat chemistry, Phos, monitor volume status and respiratory function, at high risk of volume overload with ESRD, mitral regurg. Plan Prior left hip fracture and repair ESRD: On MWF schedule TTS via right upper arm access. Chest x-ray noted in ER with probable mild chronic recurrent interstitial edema similar to findings back in February. No pulmonary consolidation. Follow-up: UA is requested. Will need PT HTN: Currently hypotensive, likely secondary to pain with hip fracture. Pain control. Subsequently monitor blood pressures. Resume antihypertensives. She will be Hypothyroidism DM2: Sliding scale insulin. Monitor Accu-Checks. Attestations Medical Necessity Statement*: Admission of over 2 midnights anticipated for assessment management of right hip fracture in a lady with ESRD, mitral rotation, additional coronary disease above. Diagnoses Closed intertrochanteric fracture of right hip S72.141A
[2023-04-13] MEDS: HYDROmorphone 1 mg/mL INJ 1 mL 0.5 MG IVP (16:56)
[2023-04-13 17:04] LABS: INR 1.11 (0.8-1.2); Partial Thromboplastin Time 33.1 SECONDS (23.9-36.7)
--- NOTE | 2023-04-13 17:17 | P.CONIM_ITS ---
Providers/Reason For Consult Consulting Physician/Specialty*: Ras Brady DO/orthopedic surgery Reason for Consult*: Right intertrochanteric/basicervical femur fracture Requesting Physician: Dr. Gerber Attending Physician: Hung Gonsalez Primary Care Provider: Cesar Mendez MD History of Present Illness History of Present Illness Pleasant 72-year-old lady with history of fall and fracture of left hip, status postrepair, has been undergoing rehabilitation at long term and was just about to finish, fell down while turning to reach for her walker, subsequently with pain in right hip with a shortened and externally rotated right lower extremity. She was brought to the emergency department x-rays reveal ba sicervical/intertrochanteric right femur fracture. Orthopedics was consulted for treatment recommendations. Discussion with patient and family state patient had eaten today. Patient at baseline does ambulate with a walker and this would be her goals. She is currently not on any anticoagulants however she had taken Lovenox for her previous hip fracture back in February. Denies any left hip pain t en on examination. Denies hitting her head or loss of consciousness. She is complaining of low back pain as well. Denies any fevers chills chest pain shortness of breath nausea or vomiting Review of Systems General: Reports: 10 or more systems reviewed and unremarkable except in HPI and below Medications/Allergies Home Medications Medication Instructions Recorded Confirmed Last Taken Type amitriptyline 100 mg tablet 100 mg PO BEDTIME 10/02/20 04/13/23 07/18/22 History tamsulosin 0.4 mg capsule 0.4 mg PO QAM 07/18/22 04/13/23 07/18/22 History flash glucose scanning reader #1 ea 12/15/22 04/13/23 Unknown Rx (FreeStyle Anita 2 [place]) flash glucose sensor (FreeStyle #3 ea 12/15/22 04/13/23 Unknown Rx Anita 2 Sensor kit) carvedilol 12.5 mg tablet See Rx Instructions .Route .COMPLEX 02/27/23 04/13/23 Unknown History levothyroxine 200 mcg tablet 200 mcg PO QAM 02/27/23 04/13/23 Unknown History lidocaine-prilocaine 2.5 %-2.5 % See Rx Instructions .Route .COMPLEX 02/27/23 04/13/23 Unknown History topical cream ropinirole 0.5 mg tablet See Rx Instructions .Route .COMPLEX 02/27/23 04/13/23 1 Week Ago History ~02/20/23 ropinirole 1 mg tablet 1 mg PO BEDTIME 02/27/23 04/13/23 Unknown History vit B,C-folic ac 800 mcg-zinc 12.5 1 tab PO DAILY 02/27/23 04/13/23 Unknown History mg-selen-D3 2,000 unit-vit E tablet (RenaPlex-D) cyclobenzaprine 10 mg tablet 5 mg PO TID #30 tabs 03/02/23 04/13/23 Unknown Rx ferrous gluconate 324 mg (37.5 mg 324 mg PO BIDWM #60 tabs 03/02/23 04/13/23 Unknown Rx iron) tablet hydrocodone 7.5 mg-acetaminophen 1 tab PO Q6H PRN severe pain 03/02/23 04/13/23 Unknown Rx 325 mg tablet (scale score 7-10) #20 tabs pantoprazole 40 mg tablet,delayed 40 mg PO DAILY #30 tabs 03/02/23 04/13/23 Unknown Rx release sennosides 8.6 mg-docusate sodium 2 tab PO BID #120 tabs 03/02/23 04/13/23 Unknown Rx 50 mg tablet (Stool Softener-Laxative) sucralfate 1 gram tablet 1 g PO BID 8 weeks #112 tabs 03/02/23 04/13/23 Unknown Rx tramadol 50 mg tablet 50 mg PO Q8H PRN Moderate Pain #30 03/02/23 04/13/23 Unknown Rx tabs amlodipine 5 mg tablet (Norvasc) 5 mg PO DAILY 04/13/23 04/13/23 Unknown History bisacodyl 10 mg rectal suppository 10 mg [place] DAILY PRN Constipation 04/13/23 04/13/23 Unknown History (Dulcolax (bisacodyl)) dulaglutide 0.75 mg/0.5 mL 0.75 mg SUBCUT Q7D 04/13/23 04/13/23 Unknown History subcutaneous pen injector (Trulicity) magnesium hydroxide 400 mg/5 mL 15 ml PO DAILY PRN Constipation 04/13/23 04/13/23 Unknown History oral suspension (Milk of Magnesia) mv-mn-folic 200 mcg-vit K 15 1 cap PO DAILY 04/13/23 04/13/23 Unknown History mcg-lutein 5 mg-zeaxanthin 1 mg capsule (PreserVision AREDS 2 Plus Multivit) sodium phosphates 19 gram-7 118 ml [place] DAILY PRN Constipation 04/13/23 04/13/23 Unknown History gram/118 mL enema (Fleet Enema) Allergies Allergy/AdvReac Type Severity Reaction Status Date / Time Penicillins Allergy Mild ALGY-Rash Verified 04/13/23 14:00 propoxyphene [From Darvon] Allergy Mild ALGY-Rash Verified 04/13/23 14:00 codeine Allergy ALGY-Rash Verified 04/13/23 14:00 PFSH Acute PFSH: Medical History Abdominal bloating Cataract Cerebellar stroke syndrome Chronic kidney disease (CKD) Closed fracture of left proximal humerus Compression fracture of L4 vertebra Hemodialysis patient History of peritoneal dialysis HTN (hypertension) Hx of breast cancer Hydronephrosis Hyperlipidemia Hypothyroidism Incomplete bladder emptying Kidney stones Lower GI bleed requiring more than 4 units of blood in 24 hours, ICU, or surgery (07/2022) Microcytic anemia Obstructive pyelonephritis Pleural effusion on right SOB (shortness of breath) Spondylolisthesis at L4-L5 level Type 2 diabetes mellitus Ureteral obstruction, right HX OF RIGHT URETEROSCOPY WITH STENT PLACEMENT Surgical History H/O knee surgery H/O skin graft H/O tubal ligation History of cholecystectomy History of kidney surgery History of lumpectomy of left breast History of surgery Right-sided pleurodesis and Pleurx catheter placement History of surgery on arm Hx of cataract surgery Hx of tonsillectomy S/P dialysis catheter insertion Peritoneal dialysis catheter placement x3 according to patient, revisions had to be performed in [facility] at an outside facility Hemodialysis catheter placement S/P hemodialysis catheter insertion Right IJ: Removed Family History Mother Stroke Father Stroke Social History Smoking and tobacco status: never smoked Alcohol intake: never Substance/Drug Use: never Lives independently: Yes Household members: spouse Marital status: Current occupational status: employed Do you think of yourself as: Straight/Heterosexual Current gender identity: Female Vitals/I&O/Wt Last Vital Signs Temp 98.3 F 04/13/23 13:57 Pulse 81 04/13/23 15:25 Resp 18 04/13/23 15:25 BP 183/72 04/13/23 15:25 Pulse Ox 96 04/13/23 15:25 O2 Del Method Room Air 04/13/23 15:25 Weight last 48 hrs Weight 139 lb Physical Exam Narrative: Orthopedic specific examination: Examination of the bilateral upper extremities demonstrates no tenderness palpation of the bilateral shoulders elbows wrists or hands she has gross motor and sensation intact about upper extremities distal pulses are palpable Patient has tenderness to palpation of the thoracolumbar junction and lumbar spine tender to palpation over the mid substance of the spine. no tenderness to pelvic compression and no evidence of pelvic instability Examination of the right lower extremity it is shortened and externally rotated pain with logroll unable to perform Stinchfield secondary to pain. She is able to wiggle her toes plantarflex and dorsiflex ankle sensations intact light touch distally. No tenderness palpation of the right knee tibia, foot or ankle. Distal pulses are palpable. Negative logroll to the left lower extremity patient is able to wiggle toes plantarflex and dorsiflex ankle no tenderness palpation of the left hip knee or ankle Const: GENERAL APPEARANCE: cooperative ORIENTATION/CONSCIOUSNESS: Yes awake Resp: COMMON NORMALS: normal respiratory effort Data 04/14/23 03:48 04/14/23 03:48 Xray Ortho: My impression: X-rays of the pelvis as well as hip femur and knee reviewed and personally interpreted by myself demonstrating a right hip basicervical/intertrochanteric femur fracture. With displacement noted. Previous left hip intertrochanteric femur fixation noted with stable hardware. A&P Assessment and plan (1) Closed intertrochanteric fracture of right hip: Plan N.p.o. at midnight Internal medicine as primary Medically optimized for surgery tomorrow Hold a.m. 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 At this point in time reviewed images with family. At this point time it is a stable intertrochanteric/basicervical femur fracture which would be amenable to short gamma nail fixation we talked about the treatment options in detail nonoperative and operative invention as far as through shared decision making we agreed to proceed with surgical intervention for earlier mobilization and pain control. She understands the risks which include not limited to make a better make it worse but clot, heart attack, stroke, on the table, infection, hardware failure, malunion, nonunion. Understand the risk of surgery she agrees to proceed with surgical intervention all questions been answered at this time. We will proceed with surgery for right hip trochanteric femur nail tomorrow. Consult Attestations Medical Necessity Statement: Right hip fracture ongoing care Coding Level of Care Code Acute Code for Chg Fwd Diagnoses Closed intertrochanteric fracture of right hip S72.141A Time Spent (min) 50
[2023-04-13 17:18] LABS: Alanine Aminotransferase 7 U/L (0-33); Albumin Level 3.5 g/dL (3.5-5.2); Alkaline Phosphatase 173 U/L (35-105); Anion Gap 13.6 (5-19); Aspartate Amino Transferase 15 U/L (0-32); Blood Urea Nitrogen 13 mg/dL (8-23); Calcium 8.8 mg/dL (8.5-10.5); Carbon Dioxide 29 mmol/L (22-29); Chloride 97 mmol/L (98-107); Globulin 3.4 g/dL (1.3-4.6); Glucose 187 mg/dL (65-115); Osmolality Calculated 287 mOsm/kg (285-295); Potassium 3.6 mmol/L (3.5-5.1); Sodium 136 mmol/L (136-145); Total Bilirubin 0.5 mg/dL (0.15-1.2); Total Protein 6.9 g/dL (6.6-8.7)
[2023-04-13 17:55] LABS: Add Urine Microscopic? YES; Bacteria Urine TRACE /hpf; Bilirubin Urine Neg (Negative); Blood Urine Trace (Negative); Glucose Urine UA 1+ (Normal); Ketones Urine 1+ (Negative); Leukocyte Esterase Urine Negative (Negative); Nitrate Urine Negative (Negative); Protein Urine 3+ (Negative); Sulfosalicylic Acid Urine Positive (Negative); Urine Appearance Clear (CLEAR); Urine Color Yellow (Yellow); Urobilinogen Urine Norm (Negative); WBC Urine 0-4 /hpf (0-5); pH Urine 9 (5-7)
[2023-04-13 17:56] LABS: Add Urine Culture? No
--- NOTE | 2023-04-13 19:46 | CTR_ITS ---
PROCEDURE INFORMATION: Exam: CT Thoracic Spine Without Contrast Exam date and time: 04/13/2023 8:30 PM Age: 72 years old Clinical indication: Pain in thoracic spine; Additional info: R/O compression FX TECHNIQUE: Imaging protocol: Computed tomography of the thoracic spine without contrast. Radiation optimization: All CT scans at this facility use at least one of these dose optimization techniques: automated exposure control; mA and/or kV adjustment per patient size (includes targeted exams where dose is matched to clinical indication); or iterative reconstruction. REPORTING DATA: Count of CT and Cardiac NM exams in prior 12 months: This patient has received 6 known CTs and 0 known cardiac nuclear medicine studies in the 12 months prior to the current study. COMPARISON: 1. CT thoracic spin wo con* [id number] 2021-07-26 12:15 2. NM bone scan whole body* [id number] 2019-01-14 11:01 RADIATION DOSE METRICS: Total DLP (mGy-cm): 303 FINDINGS: Bones/joints: Mild moderate superior T7, moderate wedge T8, mild T9, and moderate T12 chronic compression fractures. Superior T5 age-indeterminate but possibly recent endplate depression fracture. Age-indeterminate superior T5 mild endplate depression deformity. Soft tissues: Unremarkable. Vasculature: Pulmonary artery enlargement. Lymph nodes: Mild mediastinal adenopathy. Lungs: Minimal subsegmental dependent pulmonary atelectasis. Pleural spaces: Pleural calcifications. Heart: Cardiomegaly. Cardiomegaly. Adrenal glands: Adrenal adenomatous hypertrophy. CT/CT thoracic spin wo con* [id number] IMPRESSION: 1. Superior T5 age-indeterminate but possibly recent endplate depression fracture. 2. Age-indeterminate superior T5 mild endplate depression deformity.
--- NOTE | 2023-04-13 19:46 | CTR_ITS ---
PROCEDURE INFORMATION: Exam: CT Lumbar Spine Without Contrast Exam date and time: 04/13/2023 8:30 PM Age: 72 years old Clinical indication: Low back pain; Additional info: R/O lumbar compression fracture TECHNIQUE: Imaging protocol: Computed tomography of the lumbar spine without contrast. Radiation optimization: All CT scans at this facility use at least one of these dose optimization techniques: automated exposure control; mA and/or kV adjustment per patient size (includes targeted exams where dose is matched to clinical indication); or iterative reconstruction. REPORTING DATA: Count of CT and Cardiac NM exams in prior 12 months: This patient has received 6 known CTs and 0 known cardiac nuclear medicine studies in the 12 months prior to the current study. COMPARISON: 1. MR lumbar spine wo con* [id number] 2021-08-27 12:42 2. NM bone scan whole body* [id number] 2019-01-14 11:01 RADIATION DOSE METRICS: Total DLP (mGy-cm): 450.2 FINDINGS: Bones/joints: Bones are demineralized. Lumbar degenerative disc and joint disease greatest at L3-L5 causing up to moderate spinal and moderate foraminal stenosis. Degenerative L4-L5 anterolisthesis. Acute superior L2 mild endplate depression fracture, and opposing L3-L4 endplate depression fractures. No significant retropulsion. Mild levoconvex lumbar curvature. Normal lumbar lordosis. Chronic T12 moderate compression fracture. Chronic inferior L1 endplate depression fracture. Lungs: Minimal subsegmental dependent pulmonary atelectasis. Pleural spaces: Pulmonary pleural calcifications. Kidneys and ureters: Hemorrhagic or proteinaceous 1 cm left renal cyst. Soft tissues: Soft tissue edema. CT/CT lumbar spine wo con* [id number] IMPRESSION: 1. Acute superior L2 mild endplate depression fracture, and opposing L3-L4 endplate depression fractures. 2. Degenerative disc and joint disease with multilevel moderate spinal and foraminal stenosis. COMMENTS: Consistent with the [employer]'s Incidental Findings Committee white paper (J Am Ramon Radiol 2018): Any incidental renal lesion less than 1 cm or classified as too small to characterize, or any incidental cystic renal lesion characterized as simple-appearing, is likely benign. No follow-up imaging is recommended for these lesions per consensus recommendations based on imaging criteria.
[2023-04-13 20:00] VITALS: BP 161/64; PULSE 82; RESP 15; TEMP 36.8; O2SAT 92
[2023-04-13] MEDS: HYDROcodone-acetaminophen 7.5-325 mg Tablet 1 TAB PO (21:26)
[2023-04-13] MEDS: ferrous gluconate 324 mg Tablet PO (21:27)
[2023-04-13] MEDS: D5-NS 0.45% + KCL 20 mEq 20 MEQ/1,000 ML BAG 100 MEQ IV (21:27)
[2023-04-13] MEDS: amitriptyline 25 mg Tablet 100 MG PO (21:27)
[2023-04-13] MEDS: ropinirole 1 mg Tablet PO (21:27)
[2023-04-13] MEDS: sennosides-docusate Tablet 2 TAB PO (21:27)
[2023-04-13] MEDS: heparin 5,000 unit/mL INJ 1 mL 5000 UNIT SUBCUT (21:27)
[2023-04-13] MEDS: cyclobenzaprine 10 mg Tablet 5 MG PO (21:27)
--- NOTE | 2023-04-13 21:36 | PC.NURSE ---
Physician notification: Call placed to clarify orders. Dr. Brady clarified the medication in question is on hold for preop in the OR and the other is an 8 hour post op dose.
[2023-04-13 22:14] VITALS: RESP 20
[2023-04-13 23:49] VITALS: BP 145/56; PULSE 77; RESP 16; TEMP 36.8; O2SAT 95
[2023-04-14] VITALS (31 sets, daily range): BP systolic 81–175; BP diastolic 37–86; PULSE 56–76; RESP 13–20; TEMP 36.4–36.9; O2SAT 91–100; BMI 24.5
[2023-04-14] MEDS: morphine 4 mg/mL SDV 1 mL IVP (04:05)
[2023-04-14 04:48] LABS: Basophils % 0.5 %; Eosinophils # 0.1 10^3/uL (0.0-0.8); Eosinophils % 1.5 %; Hematocrit 33.4 % (37.0-47.0); Hemoglobin 9.8 g/dL (11.5-15.3); Lymphocytes # 0.9 10^3/uL (0.8-4.8); Mean Corpuscular HGB Conc 29.3 g/dL (30.0-36.0); Mean Corpuscular Hemoglobin 27.4 pg (28.0-34.0); Mean Corpuscular Volume 93.3 fl (81-99); Mean Platelet Volume 10.9 fL (7.4-10.4); Monocytes # 0.7 10^3/uL (0.2-0.9); Neutrophils % 78.1 %; Nucleated Red Blood Cells % 0.2 %; Platelet Count 282 10^3/cmm (130-400); Red Blood Count 3.58 10^6/uL (4.1-5.3); Red Cell Distribution Width 16.6 % (12.1-15.1); White Blood Count 8.5 10^3/uL (4.0-10.0)
[2023-04-14 05:10] LABS: Alanine Aminotransferase 8 U/L (0-33); Alkaline Phosphatase 167 U/L (35-105); Anion Gap 14.3 (5-19); Aspartate Amino Transferase 17 U/L (0-32); Blood Urea Nitrogen 15 mg/dL (8-23); Calcium 8.9 mg/dL (8.5-10.5); Carbon Dioxide 28 mmol/L (22-29); Chloride 95 mmol/L (98-107); Globulin 3.1 g/dL (1.3-4.6); Glucose 142 mg/dL (65-115); Osmolality Calculated 279 mOsm/kg (285-295); Potassium 4.3 mmol/L (3.5-5.1); Sodium 133 mmol/L (136-145); Total Bilirubin 0.4 mg/dL (0.15-1.2); Total Protein 6.1 g/dL (6.6-8.7)
[2023-04-14] MEDS: levothyroxine 200 mcg Tablet PO (06:03)
[2023-04-14] MEDS: tamsulosin 0.4 mg Capsule PO (06:03)
[2023-04-14] MEDS: cyclobenzaprine 10 mg Tablet 5 MG PO ×3 (07:39→21:19)
[2023-04-14] MEDS: sennosides-docusate Tablet 2 TAB PO ×2 (07:40→17:04)
[2023-04-14] MEDS: amlodipine 5 mg Tablet PO (07:40)
[2023-04-14] MEDS: carvedilol 12.5 mg Tablet 12.8 MG PO (07:40)
[2023-04-14] MEDS: pantoprazole DR 40 mg Tablet PO (07:41)
[2023-04-14] MEDS: HYDROcodone-acetaminophen 7.5-325 mg Tablet 1 TAB PO (07:41)
[2023-04-14] MEDS: ferrous gluconate 324 mg Tablet PO ×2 (07:42→17:04)
[2023-04-14] MEDS: D5-NS 0.45% + KCL 20 mEq 20 MEQ/1,000 ML BAG 100 MEQ IV (07:43)
--- NOTE | 2023-04-14 10:26 | PC.CHAP ---
Pastoral Care Encounter/Spiritual Assessment Type of Contact [] Declined manager contact visit [] Patient/Family/Request visit [] Outpatient visit [] Follow-up visit [] Physician referral [] Code/Alert [x] Routine visit [] Staff referral [] Actively dying [] Patient sleeping [] Family support [] [] Out of room [] Palliative care [] [] Receiving care in room [] Pre-surgical visit [] Trauma [] Long length of stay [] ICU visit [] Other: Relational/Emotional Strength [x] Patient feels connected with others/family/visitors/staff [] Distress [] Loneliness/isolation [] Abandonment Spirituality of Patient [x] Person of Dede [] Attends Buddhism of their Dede [x] Believes in Prayer [] Reads Bible or Tenriism materials [] There are Spiritual issues to be addressed Slusher Operator Interventions [x] Prayer [] Active listening [] Non-anxious presence [x] Spiritual/emotional support [] Crisis/trauma care [] Spiritual counseling [] Bereavement support [] Provided bereavement packet [] Provided Bible/devotional materials [] Provided toy/stuffed animal, coloring book to patient or family member [] Provided Communion [] Anointing/[place] [] Salvation [x] Completed spiritual assessment [] Other: Impact on Illness or Injury [] Angry [] Fearful [] Anxious [] Often cries [] Exhaustion [] Unable to work [] Unable to attend episcopalian [] Unable to walk/stand [] Unable to read [] Unable to drive [] Unable to eat/drink [] Unable to sleep [] Unable to be with family [] Patient intubated [] Other: Summary Time spent with patient 5 min
--- NOTE | 2023-04-14 10:53 | P.ANESASSM_ITS ---
Pre-Anesthetic Assessment Height/Weight: Height 1.6 m Weight 62.766 kg Temp Pulse Resp BP Pulse Ox O2 Del Method 98.1 F 74 18 158/66 96 Nasal Cannula 04/14/23 10:37 04/14/23 10:37 04/14/23 10:37 04/14/23 10:37 04/14/23 10:37 04/14/23 10:37 Preop Diagnosis: Right intertrochanteric femur fracture Operation Date: 04/14/23 15:20 Proposed Procedures p Trochanteric Femoral Nail(Right) - Ras Caitlyn, DO Familial anesthetic complications: None Was Beta Jessa taken within 24 hours: Yes Was Clonidine taken within 24 hours: N/A Last intake: Intake Last Liquid Date 04/13/23 Last Liquid Time 12:00 Last Solid Date 04/13/23 Last Solid Time 12:00 Social No alcohol and No tobacco Exam alert, oriented x 3, clear to auscultation bilaterally and regular rate & rhythm Airway Mallampati: Class II Dentition: other (missing) CV/HEM Anemia and Hypertension mod pulm HTN, mod MVR Chronic Renal Failure Metabolic Thyroid Disease Neuropsych Cerebrovascular Accident Anesthetic Plan ASA status: 4 Anesthesia: General Risk of > 500 ml blood loss (7ml/kg in children): No Medications/Allergies Home Medications Medication Instructions Recorded Confirmed Last Taken Type amitriptyline 100 mg tablet 100 mg PO BEDTIME 10/02/20 04/13/23 07/18/22 History tamsulosin 0.4 mg capsule 0.4 mg PO QAM 07/18/22 04/13/23 07/18/22 History flash glucose scanning reader #1 ea 12/15/22 04/13/23 Unknown Rx (FreeStyle Anita 2 [place]) flash glucose sensor (FreeStyle #3 ea 12/15/22 04/13/23 Unknown Rx Anita 2 Sensor kit) carvedilol 12.5 mg tablet See Rx Instructions .Route .COMPLEX 02/27/23 04/13/23 Unknown History levothyroxine 200 mcg tablet 200 mcg PO QAM 02/27/23 04/13/23 Unknown History lidocaine-prilocaine 2.5 %-2.5 % See Rx Instructions .Route .COMPLEX 02/27/23 04/13/23 Unknown History topical cream ropinirole 0.5 mg tablet See Rx Instructions .Route .COMPLEX 02/27/23 04/13/23 1 Week Ago History ~02/20/23 ropinirole 1 mg tablet 1 mg PO BEDTIME 02/27/23 04/13/23 Unknown History vit B,C-folic ac 800 mcg-zinc 12.5 1 tab PO DAILY 02/27/23 04/13/23 Unknown History mg-selen-D3 2,000 unit-vit E tablet (RenaPlex-D) cyclobenzaprine 10 mg tablet 5 mg PO TID #30 tabs 03/02/23 04/13/23 Unknown Rx ferrous gluconate 324 mg (37.5 mg 324 mg PO BIDWM #60 tabs 03/02/23 04/13/23 Unknown Rx iron) tablet hydrocodone 7.5 mg-acetaminophen 1 tab PO Q6H PRN severe pain 03/02/23 04/13/23 Unknown Rx 325 mg tablet (scale score 7-10) #20 tabs pantoprazole 40 mg tablet,delayed 40 mg PO DAILY #30 tabs 03/02/23 04/13/23 Unknown Rx release sennosides 8.6 mg-docusate sodium 2 tab PO BID #120 tabs 03/02/23 04/13/23 Unknown Rx 50 mg tablet (Stool Softener-Laxative) sucralfate 1 gram tablet 1 g PO BID 8 weeks #112 tabs 03/02/23 04/13/23 Unknown Rx tramadol 50 mg tablet 50 mg PO Q8H PRN Moderate Pain #30 03/02/23 04/13/23 Unknown Rx tabs amlodipine 5 mg tablet (Norvasc) 5 mg PO DAILY 04/13/23 04/13/23 Unknown History bisacodyl 10 mg rectal suppository 10 mg [place] DAILY PRN Constipation 04/13/23 04/13/23 Unknown History (Dulcolax (bisacodyl)) dulaglutide 0.75 mg/0.5 mL 0.75 mg SUBCUT Q7D 04/13/23 04/13/23 Unknown History subcutaneous pen injector (Trulicity) magnesium hydroxide 400 mg/5 mL 15 ml PO DAILY PRN Constipation 04/13/23 04/13/23 Unknown History oral suspension (Milk of Magnesia) mv-mn-folic 200 mcg-vit K 15 1 cap PO DAILY 04/13/23 04/13/23 Unknown History mcg-lutein 5 mg-zeaxanthin 1 mg capsule (PreserVision AREDS 2 Plus Multivit) sodium phosphates 19 gram-7 118 ml [place] DAILY PRN Constipation 04/13/23 04/13/23 Unknown History gram/118 mL enema (Fleet Enema) Allergies Allergy/AdvReac Type Severity Reaction Status Date / Time Penicillins Allergy Mild ALGY-Rash Verified 04/13/23 14:00 propoxyphene [From Darvon] Allergy Mild ALGY-Rash Verified 04/13/23 14:00 codeine Allergy ALGY-Rash Verified 04/13/23 14:00 Current Medications Generic Name Dose Route Start Last Admin Trade Name Freq PRN Reason Stop Dose Admin Hydrocodone Bitart/Acetaminophen 1 tab 04/13/23 20:58 04/14/23 07:41 Hydrocodone-Acetaminophen 7.5-325 Mg Tablet PO 1 tab Q6H PRN Administration severe pain (scale score 7-10) Amitriptyline HCl 100 mg 04/13/23 21:15 04/13/23 21:27 Amitriptyline 25 Mg Tablet PO 100 mg BEDTIME NIKKY Administration Amlodipine Besylate 5 mg 04/14/23 09:00 04/14/23 07:40 Amlodipine 5 Mg Tablet PO 5 mg DAILY NIKKY Administration Carvedilol 12.8 mg 04/14/23 09:00 04/14/23 07:40 Carvedilol 12.5 Mg Tablet PO 12.8 mg SuTuThSa NIKKY Administration Cyclobenzaprine HCl 5 mg 04/13/23 21:00 04/14/23 07:39 Cyclobenzaprine 10 Mg Tablet PO 5 mg TID NIKKY Administration Ferrous Gluconate 324 mg 04/13/23 20:58 04/14/23 07:42 Ferrous Gluconate 324 Mg Tablet PO 324 mg BIDWM NIKKY Administration Levothyroxine Sodium 200 mcg 04/14/23 06:00 04/14/23 06:03 Levothyroxine 200 Mcg Tablet PO 200 mcg QAM NIKKY Administration Morphine Sulfate 4 mg 04/13/23 20:58 04/14/23 04:05 Morphine 4 Mg/Ml Sdv 1 Ml IVP 4 mg Q4H PRN Administration SEVERE PAIN Pantoprazole Sodium 40 mg 04/14/23 09:00 04/14/23 07:[address] 40 Mg Tablet PO 40 mg DAILY NIKKY Administration Ropinirole HCl 1 mg 04/13/23 21:00 04/13/23 21:27 Ropinirole 1 Mg Tablet PO 1 mg BEDTIME NIKKY Administration Senna/Docusate Sodium 2 tab 04/13/23 20:58 04/14/23 07:40 Sennosides-Docusate Tablet PO 2 tab BID NIKKY Administration Tamsulosin HCl 0.4 mg 04/14/23 06:00 04/14/23 06:03 Tamsulosin 0.4 Mg Capsule PO 0.4 mg QAM NIKKY Administration PFSH Anesthesia Medical History Abdominal bloating Cataract Cerebellar stroke syndrome Chronic kidney disease (CKD) Closed fracture of left proximal humerus Compression fracture of L4 vertebra Hemodialysis patient History of peritoneal dialysis HTN (hypertension) Hx of breast cancer Hydronephrosis Hyperlipidemia Hypothyroidism Incomplete bladder emptying Kidney stones Lower GI bleed requiring more than 4 units of blood in 24 hours, ICU, or surgery (07/2022) Microcytic anemia Obstructive pyelonephritis Pleural effusion on right SOB (shortness of breath) Spondylolisthesis at L4-L5 level Type 2 diabetes mellitus Ureteral obstruction, right HX OF RIGHT URETEROSCOPY WITH STENT PLACEMENT Surgical History H/O knee surgery H/O skin graft H/O tubal ligation History of cholecystectomy History of kidney surgery History of lumpectomy of left breast History of surgery Right-sided pleurodesis and Pleurx catheter placement History of surgery on arm Hx of cataract surgery Hx of tonsillectomy S/P dialysis catheter insertion Peritoneal dialysis catheter placement x3 according to patient, revisions had to be performed in [facility] at an outside facility Hemodialysis catheter placement S/P hemodialysis catheter insertion Right IJ: Removed Family History Mother Stroke Father Stroke Social History Smoking and tobacco status: never smoked Alcohol intake: never Substance/Drug Use: never Lives independently: Yes Household members: spouse Marital status: Current occupational status: employed Do you think of yourself as: Straight/Heterosexual Current gender identity: Female Data Anesthesia 04/14/23 03:48 04/14/23 03:48 Short CBC 04/13/23 04/14/23 Range/Units 16:21 03:48 WBC 16.1 H 8.5 (4.0-10.0) 10^3/uL Hgb 10.2 L 9.8 L (11.5-15.3) g/dL Hct 33.0 L 33.4 L (37.0-47.0) % MCV 89.2 93.3 (81-99) fl Plt Count 328 282 (130-400) 10^3/cmm Neut % (Auto) 92.1 78.1 % Neut # (Auto) 14.83 H 6.60 (1.8-7.7) 10^3/uL BMP 04/13/23 04/14/23 16:21 03:48 Sodium 136 133 L Potassium 3.6 4.3 Chloride 97 L 95 L Carbon Dioxide 29 28 BUN 13 15 Creatinine 2.2 H 2.9 H Glucose 187 H 142 H Calcium 8.8 8.9 Liver Function 04/13/23 04/14/23 Range/Units 16:21 03:48 Total Bilirubin 0.5 0.4 (0.15-1.2) mg/dL AST 15 17 (0-32) U/L ALT 7 8 (0-33) U/L Alkaline Phosphatase 173 H 167 H (35-105) U/L Albumin 3.5 3.0 L (3.5-5.2) g/dL Urine 04/13/23 Range/Units 17:05 Urine Color Yellow (Yellow) Urine Appearance Clear (CLEAR) Urine pH 9 H (5-7) Ur Specific [place] 1.020 (1.005-1.030) Urine Protein 3+ H (Negative) Urine Glucose (UA) 1+ H (Normal) Urine Ketones 1+ H (Negative) Urine Nitrate Negative (Negative) Urine Bilirubin Neg (Negative) Ur Leukocyte Esterase Negative (Negative) Urine RBC 5-10 H (0-2) /hpf Urine WBC 0-4 H (0-5) /hpf Blood Bank 04/13/23 18:14 Blood Type A Positive Rho(D) Type Positive Antibody Screen Negative Coags 04/13/23 16:21 PT 14.60 INR 1.11 APTT 33.1 Cardiac Studies: Echocardiogram 03/06/22 Echocardiogram Ultrasound 09/28/20 Holter Monitor 09/10/20
--- NOTE | 2023-04-14 10:53 | W.PM.OPSUD ---
Surgery/Procedure H&P Update DATE OF PROCEDURE: April 14, 2023 DATE H&P PERFORMED: 04/13/23 CHANGES TO PREVIOUS DOCUMENTATION: None. Patient has displaced right intertrochanteric/basicervical femur fracture we talked about her treatment options in detail at this point in time for earlier mobility and pain control she and I agreed to proceed with a right hip trochanteric femur nail. She understands the risk benefits complication alternatives of surgery and agrees to proceed. I did review her CT scan results of her thoracic and lumbar spine and she does have some vertebral compression fractures that are. Some chronic and potentially some acute I did contact our spine surgeon Dr. Ferrera who reviewed these images these are stable fractures and is okay to proceed with surgery today. I will consult Dr. Ferrera for him to see and evaluate vertebral compression fractures for further treatment recommendations. Patient family understand agree with current plan. All questions answered. PREOP DIAGNOSIS: Right intertrochanteric femur fracture PRIMARY INDICATION FOR PROCEDURE: Right displaced intertrochanteric/basicervical femur fracture PLANNED PROCEDURE: Operation Date: 04/14/23 15:20 Proposed Procedures p Trochanteric Femoral Nail(Right) - Ras Brady DO
[2023-04-14] MEDS: ketorolac 30 mg/mL INJ IVP (10:54)
[2023-04-14] MEDS: acetaminophen 1,000 MG/100 ML PIGGYBACK 400 MG IV (10:54)
--- NOTE | 2023-04-14 10:54 | PC.NURSE ---
Surgery schedule changed. Notified of schedule changes via phone.
[2023-04-14] MEDS: clindamycin 600 MG/50 ML PREMIX 100 MG IV ×2 (11:10→21:17)
--- NOTE | 2023-04-14 12:39 | XRR_ITS ---
PROCEDURE INFORMATION: Exam: XR Right Hip Exam date and time: 04/14/2023 11:50 AM Age: 72 years old Clinical indication: Device placement; Other: Right hip troch nail; Prior surgery; Surgery date: Post-operative (0-2 days); Additional info: Postop right hip troch nail, ap pelvis, ap hip and cross table lateral TECHNIQUE: Imaging protocol: Radiologic exam of the right hip. 3image(s) are provided. Views: 1 view hip with pelvis when performed. COMPARISON: CR XR hip RT 2-3V wo/w pel* [id number] 04/13/2023 2:12 PM FINDINGS: Bones/joints: Acetabular alignment is maintained. There is slightly decreased bone mineralization overall. There is history of previous injury and fracture of the left hip intertrochanteric level similar overall. Soft tissues: There are post surgical changes including subcutaneous. This includes good alignment of the right femoral intertrochanteric hip fracture fixation hardware. Other findings: No other significant interval changes are appreciated. XR/XR hip RT 2-3V wo/w pel* [id number] IMPRESSION: There is good alignment of the right hip hardware with postsurgical changes present. No dislocation is appreciated.
--- NOTE | 2023-04-14 12:43 | PM.OP2 ---
Brief Operative Note Date of procedure: 04/14/23 Pre-op diagnosis: Right intertrochanteric/basicervical femur fracture Post-op diagnosis: same Procedure Done: Right femur trochanteric nail Surgeon: Ras Brady Estimated blood loss (mL): 75 Complications: None Post-op Plan: Patient taken to PACU in stable condition recovering well pain controlled. Will be placed on DVT prophylaxis starting tomorrow. Will receive appropriate postoperative antibiotics, TXA, pain control. PT/OT. Weightbearing as tolerated right lower extremity orthopedics will continue to follow. plan to follow-up in the office 2 weeks out from surgery Condition: stable Disposition: floor Coding Level of Care Code Acute Code for [facility]
--- NOTE | 2023-04-14 12:45 | PM.OP ---
Operative Report Date of procedure: April 14, 2023 Pre-op diagnosis: Preop Diagnosis Right intertrochanteric femur fracture Procedure: Procedure: Post-op diagnosis: right displaced intertrochanteric femur fracture Procedure done: Right intertrochanteric femur fracture ORIF with cephalomedullary nail Implants: [place] gamma nail short 11 mm x 180 mm x 125 degree Lag screw 10.5 mm x 95 mm Distal locking screw 5 mm x 35 mm Surgeon: Ras Brady DO Estimated blood loss: 75mm IV fluids: 250 mL Urine output: See anesthesia record Complications: See operative report Findings: See operative report narrative Condition: stable Disposition: FLoor Brief History: Patient sustained a fall and was found to have a right intertrochanteric hip fx.?patient recently back in February sustained a left intertrochanteric femur fracture this was fixed by her partner she had been doing well and was just about to be discharged from rehab facility when she sustained a fall yesterday. She is been unable to bear weight right hip/lower extremity shortened and externally rotated she is unable to bear weight. At this point time she was admitted by the hospitalist team we talked about treatment options as far as nonoperative and operative intervention. At this point time she would like to pursue surgical intervention for benefits of pain control and earlier mobilization. Her baseline is ambulation with a walker. She understands the ins and outs of procedure, the risk benefits complication alternatives of surgical nonsurgical treatment options. Understanding risk of surgery she agrees to proceed with surgical intervention all questions answered. Consent obtained. Procedure: Patient seen evaluated in the preoperative holding area.? Consent obtained with POA.? Correct extremity was then marked.? Once cleared by anesthesia and the hospitalist team patient was taken back to the operative suite.? Patient underwent anesthesia per the anesthesia department.? Once appropriately anesthetized she was placed on a fracture Liberty table.? Patient was appropriately secured to the bed.? All bony prominences were well-padded.? At this point time patient received appropriate preoperative antibiotics.? Final timeout was performed.? Prior to beginning surgery a standard closed reduction maneuver was placed on the [place] table and large C-arm was brought in.? After performing a closed reduction maneuver there was able to achieve satisfactory reduction of right intertrochanteric femur fracture.? Fracture site did not extend into the subtrochanteric region as result plan was for a short nail.?? This point time the right lower extremity was then prepped and draped in standard orthopedic fashion. A standard longitudinal incision was made just proximal to the greater trochanter roughly 4 cm in length sharp scalpel vision was made through skin and subcutaneous tissue.? I then utilized a blunt Thayer to split her fascia and mobilized directly down to the greater trochanter.? I then inserted my starting guidewire which was placed appropriate starting position the tip of the greater trochanter. This was advanced in AP and lateral films to be in center center position and advanced to the level lesser trochanter.? This was confirmed to be in center center position on AP and lateral imaging.? Once this was done I then introduced my opening reamer which was then subsequently guide pin removed.? I selected a 11 mm x 180 mm x 125 degree. At this point time the nail was then loaded onto the [employer] gamma trochanteric nail guide.? This was placed within the canal and confirmed with XR and the setscrew was then gently placed.? The nail was then impacted to appropriate depth .? At this point time I then inserted my lag screw guide and subsequently made a small incision through skin and subcutaneous tissue splitting the IT band longitudinally and the guide was placed directly onto bone.? Next I then subsequently placed the guidewire in center center position in the head with an appropriate tip to apex distance this was confirmed with multiple orthogonal images.? Once I was satisfied with my planned lag screw placement I then measured which was 95.? I then set my cannulated drill 95 subsequently reamed this into the head at appropriate depth and did feel as though this would accommodate for 95 which was then set to 95 and further advance with an excellent tip to apex distance.? I then had my rep open the 10.5 mm x 95 mm lag screw which was then opened on the back table and subsequently screwed into place over my cannulated drill guide.? This was placed with excellent tip to apex distance.? Next I then utilized the compressing device and subsequently compressed my fracture after I let off traction.? This had excellent fracture compression and opposition and closing down to my fracture line.? Next I then locked the nail setting my setscrew.? This point time the guidewire as well as the sleeve was then removed.? Next I plan for statically locking the nail distally.? This triple sleeve was then placed a small stab incision was made blunt dissection directly down to bone and the guide sleeve was placed and locked directly onto the bone.? I then inserted the drill bit and subsequently drilled bicortically measured appropriate length screw and then placed a 35 mm distal interlocking screw and had excellent fixation was appropriate length.? This point time is completed my construct I remove the outer jig and took final images of AP and lateral of the right intertrochanteric femur fracture which showed stable reduction and stable fixation.? Wound was then thoroughly irrigated.? Hemostasis was maintained with electrocautery.? I then once again thoroughly irrigated the incisions and then subsequently closed in layered fashion of 0 Vicryl 2-0 Vicryl and shanell.? Silverlon dressings applied.? Patient was then awakened from anesthesia transported onto the hospital bed and taken to PACU in stable condition.? Patient tolerated procedure without complications. Disposition: Patient taken to PACU in stable condition. Postoperatively.? Patient to receive appropriate discharge instructions as well as pain medication DVT prophylaxis postoperatively.? She will be allowed weightbearing as tolerated right lower extremity.? Patient to follow-up in the orthopedic office in 2 weeks.? Patients family understands and agrees with current plan.? All questions answered.
--- NOTE | 2023-04-14 12:45 | PM.PACU ---
PACU note Narrative: Patient taken to PACU in stable condition recovering well. Patient's dressings are on in place clean dry and intact thigh compartments are soft and compressible. Patient's distal pulses are palpable patient is able to wiggle toes plantarflex and dorsiflex ankle sensation intact light touch distally Exam: awake Disposition: back to floor
[2023-04-14] MEDS: fentaNYL 50 mcg/mL INJ 2mL IVP ×2 (13:03→13:23)
--- NOTE | 2023-04-14 13:46 | PM.CONSULT ---
Providers/Reason For Consult Consulting Physician/Specialty*: kom[facility]a/Nephrology Reason for Consult*: ESRD Attending Physician: Hung Gonsalez Primary Care Provider: Cesar Mendez MD History of Present Illness History of Present Illness María Saab is a 72 year old female with a past medical history of end-stage renal disease on dialysis per Thursday schedule, hypertension, hyperlipidemia, hypothyroidism, diabetes presented to the emergency department due to right hip pain. Patient underwent left hip repair for fracture recently. X-ray showed distal right femoral neck fracture. Plan for the OR today for hip repair/nailing. Last dialysis was on Thursday Review of Systems Narrative: deferred Medications/Allergies Home Medications Medication Instructions Recorded Confirmed Last Taken Type amitriptyline 100 mg tablet 100 mg PO BEDTIME 10/02/20 04/13/23 07/18/22 History tamsulosin 0.4 mg capsule 0.4 mg PO QAM 07/18/22 04/13/23 07/18/22 History flash glucose scanning reader #1 ea 12/15/22 04/13/23 Unknown Rx (FreeStyle Anita 2 [place]) flash glucose sensor (FreeStyle #3 ea 12/15/22 04/13/23 Unknown Rx Anita 2 Sensor kit) carvedilol 12.5 mg tablet See Rx Instructions .Route .COMPLEX 02/27/23 04/13/23 Unknown History levothyroxine 200 mcg tablet 200 mcg PO QAM 02/27/23 04/13/23 Unknown History lidocaine-prilocaine 2.5 %-2.5 % See Rx Instructions .Route .COMPLEX 02/27/23 04/13/23 Unknown History topical cream ropinirole 0.5 mg tablet See Rx Instructions .Route .COMPLEX 02/27/23 04/13/23 1 Week Ago History ~02/20/23 ropinirole 1 mg tablet 1 mg PO BEDTIME 02/27/23 04/13/23 Unknown History vit B,C-folic ac 800 mcg-zinc 12.5 1 tab PO DAILY 02/27/23 04/13/23 Unknown History mg-selen-D3 2,000 unit-vit E tablet (RenaPlex-D) cyclobenzaprine 10 mg tablet 5 mg PO TID #30 tabs 03/02/23 04/13/23 Unknown Rx ferrous gluconate 324 mg (37.5 mg 324 mg PO BIDWM #60 tabs 03/02/23 04/13/23 Unknown Rx iron) tablet hydrocodone 7.5 mg-acetaminophen 1 tab PO Q6H PRN severe pain 03/02/23 04/13/23 Unknown Rx 325 mg tablet (scale score 7-10) #20 tabs pantoprazole 40 mg tablet,delayed 40 mg PO DAILY #30 tabs 03/02/23 04/13/23 Unknown Rx release sennosides 8.6 mg-docusate sodium 2 tab PO BID #120 tabs 03/02/23 04/13/23 Unknown Rx 50 mg tablet (Stool Softener-Laxative) sucralfate 1 gram tablet 1 g PO BID 8 weeks #112 tabs 03/02/23 04/13/23 Unknown Rx tramadol 50 mg tablet 50 mg PO Q8H PRN Moderate Pain #30 03/02/23 04/13/23 Unknown Rx tabs amlodipine 5 mg tablet (Norvasc) 5 mg PO DAILY 04/13/23 04/13/23 Unknown History bisacodyl 10 mg rectal suppository 10 mg GA DAILY PRN Constipation 04/13/23 04/13/23 Unknown History (Dulcolax (bisacodyl)) dulaglutide 0.75 mg/0.5 mL 0.75 mg SUBCUT Q7D 04/13/23 04/13/23 Unknown History subcutaneous pen injector (Trulicity) magnesium hydroxide 400 mg/5 mL 15 ml PO DAILY PRN Constipation 04/13/23 04/13/23 Unknown History oral suspension (Milk of Magnesia) mv-mn-folic 200 mcg-vit K 15 1 cap PO DAILY 04/13/23 04/13/23 Unknown History mcg-lutein 5 mg-zeaxanthin 1 mg capsule (PreserVision AREDS 2 Plus Multivit) sodium phosphates 19 gram-7 118 ml GA DAILY PRN Constipation 04/13/23 04/13/23 Unknown History gram/118 mL enema (Fleet Enema) Allergies Allergy/AdvReac Type Severity Reaction Status Date / Time Penicillins Allergy Mild ALGY-Rash Verified 04/13/23 14:00 propoxyphene [From Darvon] Allergy Mild ALGY-Rash Verified 04/13/23 14:00 codeine Allergy ALGY-Rash Verified 04/13/23 14:00 Current Medications Generic Name Dose Route Start Last Admin Trade Name Ana PRN Reason Stop Dose Admin Hydrocodone Bitart/Acetaminophen 1 tab 04/13/23 20:58 04/14/23 07:41 Hydrocodone-Acetaminophen 7.5-325 Mg Tablet PO 1 tab Q6H PRN Administration severe pain (scale score 7-10) Amitriptyline HCl 100 mg 04/13/23 21:15 04/13/23 21:27 Amitriptyline 25 Mg Tablet PO 100 mg BEDTIME NIKKY Administration Amlodipine Besylate 5 mg 04/14/23 09:00 04/14/23 07:40 Amlodipine 5 Mg Tablet PO 5 mg DAILY NIKKY Administration Carvedilol 12.8 mg 04/14/23 09:00 04/14/23 07:40 Carvedilol 12.5 Mg Tablet PO 12.8 mg SuTuThSa NIKKY Administration Cyclobenzaprine HCl 5 mg 04/13/23 21:00 04/14/23 07:39 Cyclobenzaprine 10 Mg Tablet PO 5 mg TID NIKKY Administration Fentanyl 50 mcg 04/14/23 10:37 04/14/23 13:23 Fentanyl 50 Mcg/Ml Inj 2ml IVP 50 mcg Q10M PRN Administration Preop Pain Ferrous Gluconate 324 mg 04/13/23 20:58 04/14/23 07:42 Ferrous Gluconate 324 Mg Tablet PO 324 mg BIDWM NIKKY Administration Levothyroxine Sodium 200 mcg 04/14/23 06:00 04/14/23 06:03 Levothyroxine 200 Mcg Tablet PO 200 mcg QAM NIKKY Administration Morphine Sulfate 4 mg 04/13/23 20:58 04/14/23 04:05 Morphine 4 Mg/Ml Sdv 1 Ml IVP 4 mg Q4H PRN Administration SEVERE PAIN Pantoprazole Sodium 40 mg 04/14/23 09:00 04/14/23 07:[address] 40 Mg Tablet PO 40 mg DAILY NIKKY Administration Ropinirole HCl 1 mg 04/13/23 21:00 04/13/23 21:27 Ropinirole 1 Mg Tablet PO 1 mg BEDTIME NIKKY Administration Senna/Docusate Sodium 2 tab 04/13/23 20:58 04/14/23 07:40 Sennosides-Docusate Tablet PO 2 tab BID NIKKY Administration Tamsulosin HCl 0.4 mg 04/14/23 06:00 04/14/23 06:03 Tamsulosin 0.4 Mg Capsule PO 0.4 mg QAM NIKKY Administration PFSH Acute PFSH: Medical History Abdominal bloating Cataract Cerebellar stroke syndrome Chronic kidney disease (CKD) Closed fracture of left proximal humerus Compression fracture of L4 vertebra Hemodialysis patient History of peritoneal dialysis HTN (hypertension) Hx of breast cancer Hydronephrosis Hyperlipidemia Hypothyroidism Incomplete bladder emptying Kidney stones Lower GI bleed requiring more than 4 units of blood in 24 hours, ICU, or surgery (07/2022) Microcytic anemia Obstructive pyelonephritis Pleural effusion on right SOB (shortness of breath) Spondylolisthesis at L4-L5 level Type 2 diabetes mellitus Ureteral obstruction, right HX OF RIGHT URETEROSCOPY WITH STENT PLACEMENT Surgical History H/O knee surgery H/O skin graft H/O tubal ligation History of cholecystectomy History of kidney surgery History of lumpectomy of left breast History of surgery Right-sided pleurodesis and Pleurx catheter placement History of surgery on arm Hx of cataract surgery Hx of tonsillectomy S/P dialysis catheter insertion Peritoneal dialysis catheter placement x3 according to patient, revisions had to be performed in [facility] at an outside facility Hemodialysis catheter placement S/P hemodialysis catheter insertion Right IJ: Removed Family History Mother Stroke Father Stroke Social History Smoking and tobacco status: never smoked Alcohol intake: never Substance/Drug Use: never Lives independently: Yes Household members: spouse Marital status: Current occupational status: employed Do you think of yourself as: Straight/Heterosexual Current gender identity: Female Vitals/I&O/Wt Last Vital Signs Temp 97.6 F 04/14/23 13:40 Pulse 57 L 04/14/23 13:40 Resp 15 04/14/23 13:40 BP 100/56 04/14/23 13:40 Pulse Ox 99 04/14/23 13:40 O2 Del Method Nasal Cannula 04/14/23 13:40 O2 Flow Rate 3 04/14/23 13:40 04/13/23 04/14/23 04/14/23 22:59 06:59 14:59 Intake Total 1989 Output Total 500 / 500 125 / 125 Balance -500 / -500 1865 / 1865 Weight last 48 hrs Weight 62.766 kg Weight 63.049 kg Physical Exam Urinary Catheter Management: Spears: Cath Placed During This Visit: no Reason for Continuing Indwelling Catheter: Perioperative Use in Selected Surgeries Data 04/14/23 03:48 04/14/23 03:48 A&P Assessment and plan (1) End stage renal disease: Plan 1. End-stage renal disease: Last dialysis Thursday on [facility] schedule as outpatient, will plan on next dialysis tomorrow 2. History of hypertension: Blood pressure stable 3. Anemia hemoglobin 9.8, monitor 4. Right hip fracture: OR today for repair Consult Attestations Medical Necessity Statement: per medicine Coding Level of Care Code Acute Code for [facility] Fwd Diagnoses End stage renal disease N18.6
[2023-04-14] MEDS: ondansetron 2 mg/ML SDV 2 mL 4 MG IVP (14:30)
[2023-04-14] MEDS: FUROsemide 10 mg/mL SDV 10mL 60 MG IVP (14:30)
--- NOTE | 2023-04-14 15:56 | ANE.PACU2 ---
Inpatient post-anesthesia follow up: Airway intact: Yes Vital signs: Temperature 97.6 F Pulse Rate 57 Respiratory Rate 15 Blood Pressure 100/56 Pulse Oximetry 99 Oxygen Delivery Me thod Nasal Cannula Oxygen Flow Rate 3 Fraction of Inspir ed Oxygen Hydration adequate: Yes Nausea and vomiting: Yes Pain level: 1 Mental status: Baseline
--- NOTE | 2023-04-14 16:47 | P.CONIM_ITS ---
Providers/Reason For Consult Consulting Physician/Specialty*: Ortho Spine Reason for Consult*: Back Pain Requesting Physician: Dr Brady Attending Physician: Hung Gonsalez Primary Care Provider: Cesar Mendez MD History of Present Illness History of Present Illness María Saab is a 72 year old female who is complaining of mid and low back pain. She had a recent fall at her rehab facility following recovery of her left hip ORIF and subsequently sustained a right hip fracture which underwent open reduction internal fixation today on 04/14/[address] Brady. Orthopedic spine was consulted to deal with her back pain and evaluation of the patient in room 251 bed to with no family present she continues to complain of back pain this been ongoing and progressively intensifying. She states she has had back pain on and off over the last 2 years. Her back pain is somewhat worse following the most recent fall. She states that the back pain is progressively intensified given her more recent falls. Her leg pain is difficult to discern due to hip fractures that she has been recovering from. She does have known osteoporosis. She has been told she has had multiple fractures in her back. At its worst her back pain is sharp stabbing constant in nature 6-7 out of 10 on the pain scale. Activities such as bending and twisting seem to make things much worse prolonged standing. But given her recovery from her left hip fracture and now her right is been difficult to sort out where most of the pain localizes. Review of Systems Narrative: deferred Medications/Allergies Home Medications Medication Instructions Recorded Confirmed Last Taken Type amitriptyline 100 mg tablet 100 mg PO BEDTIME 10/02/20 04/13/23 07/18/22 History tamsulosin 0.4 mg capsule 0.4 mg PO QAM 07/18/22 04/13/23 07/18/22 History flash glucose scanning reader #1 ea 12/15/22 04/13/23 Unknown Rx (FreeStyle Anita 2 Moville) flash glucose sensor (FreeStyle #3 ea 12/15/22 04/13/23 Unknown Rx Anita 2 Sensor kit) carvedilol 12.5 mg tablet See Rx Instructions .Route .COMPLEX 02/27/23 04/13/23 Unknown History levothyroxine 200 mcg tablet 200 mcg PO QAM 02/27/23 04/13/23 Unknown History lidocaine-prilocaine 2.5 %-2.5 % See Rx Instructions .Route .COMPLEX 02/27/23 04/13/23 Unknown History topical cream ropinirole 0.5 mg tablet See Rx Instructions .Route .COMPLEX 02/27/23 04/13/23 1 Week Ago History ~02/20/23 ropinirole 1 mg tablet 1 mg PO BEDTIME 02/27/23 04/13/23 Unknown History vit B,C-folic ac 800 mcg-zinc 12.5 1 tab PO DAILY 02/27/23 04/13/23 Unknown History mg-selen-D3 2,000 unit-vit E tablet (RenaPlex-D) cyclobenzaprine 10 mg tablet 5 mg PO TID #30 tabs 03/02/23 04/13/23 Unknown Rx ferrous gluconate 324 mg (37.5 mg 324 mg PO BIDWM #60 tabs 03/02/23 04/13/23 Unknown Rx iron) tablet hydrocodone 7.5 mg-acetaminophen 1 tab PO Q6H PRN severe pain 03/02/23 04/13/23 Unknown Rx 325 mg tablet (scale score 7-10) #20 tabs pantoprazole 40 mg tablet,delayed 40 mg PO DAILY #30 tabs 03/02/23 04/13/23 Unknown Rx release sennosides 8.6 mg-docusate sodium 2 tab PO BID #120 tabs 03/02/23 04/13/23 Unknown Rx 50 mg tablet (Stool Softener-Laxative) sucralfate 1 gram tablet 1 g PO BID 8 weeks #112 tabs 03/02/23 04/13/23 Unknown Rx tramadol 50 mg tablet 50 mg PO Q8H PRN Moderate Pain #30 03/02/23 04/13/23 Unknown Rx tabs amlodipine 5 mg tablet (Norvasc) 5 mg PO DAILY 04/13/23 04/13/23 Unknown History bisacodyl 10 mg rectal suppository 10 mg OR DAILY PRN Constipation 04/13/23 04/13/23 Unknown History (Dulcolax (bisacodyl)) dulaglutide 0.75 mg/0.5 mL 0.75 mg SUBCUT Q7D 04/13/23 04/13/23 Unknown History subcutaneous pen injector (Trulicity) magnesium hydroxide 400 mg/5 mL 15 ml PO DAILY PRN Constipation 04/13/23 04/13/23 Unknown History oral suspension (Milk of Magnesia) mv-mn-folic 200 mcg-vit K 15 1 cap PO DAILY 04/13/23 04/13/23 Unknown History mcg-lutein 5 mg-zeaxanthin 1 mg capsule (PreserVision AREDS 2 Plus Multivit) sodium phosphates 19 gram-7 118 ml OR DAILY PRN Constipation 04/13/23 04/13/23 Unknown History gram/118 mL enema (Fleet Enema) Allergies Allergy/AdvReac Type Severity Reaction Status Date / Time Penicillins Allergy Mild ALGY-Rash Verified 04/13/23 14:00 propoxyphene [From Darvon] Allergy Mild ALGY-Rash Verified 04/13/23 14:00 codeine Allergy ALGY-Rash Verified 04/13/23 14:00 Current Medications Generic Name Dose Route Start Last Admin Trade Name Freq PRN Reason Stop Dose Admin Hydrocodone Bitart/Acetaminophen 1 tab 04/13/23 20:58 04/14/23 07:41 Hydrocodone-Acetaminophen 7.5-325 Mg Tablet PO 1 tab Q6H PRN Administration severe pain (scale score 7-10) Amitriptyline HCl 100 mg 04/13/23 21:15 04/13/23 21:27 Amitriptyline 25 Mg Tablet PO 100 mg BEDTIME NIKKY Administration Amlodipine Besylate 5 mg 04/14/23 09:00 04/14/23 07:40 Amlodipine 5 Mg Tablet PO 5 mg DAILY NIKKY Administration Carvedilol 12.8 mg 04/14/23 09:00 04/14/23 07:40 Carvedilol 12.5 Mg Tablet PO 12.8 mg SuTuThSa NIKKY Administration Cyclobenzaprine HCl 5 mg 04/13/23 21:00 04/14/23 07:39 Cyclobenzaprine 10 Mg Tablet PO 5 mg TID NIKKY Administration Ferrous Gluconate 324 mg 04/13/23 20:58 04/14/23 07:42 Ferrous Gluconate 324 Mg Tablet PO 324 mg BIDWM NIKKY Administration Levothyroxine Sodium 200 mcg 04/14/23 06:00 04/14/23 06:03 Levothyroxine 200 Mcg Tablet PO 200 mcg QAM NIKKY Administration Lidocaine/Prilocaine 0 applic 04/14/23 08:00 04/14/23 14:09 Lidocaine-Prilocaine Cream 5 Gm TOPICAL Not Given SuTuThSa [facility] Morphine Sulfate 4 mg 04/13/23 20:58 04/14/23 04:05 Morphine 4 Mg/Ml Sdv 1 Ml IVP 4 mg Q4H PRN Administration SEVERE PAIN Ondansetron HCl 4 mg 04/13/23 20:58 04/14/23 14:30 Ondansetron 2 Mg/Ml Sdv 2 Ml IVP 4 mg Q6H PRN Administration NAUSEA AND VOMITING Pantoprazole Sodium 40 mg 04/14/23 09:00 04/14/23 07:[address] 40 Mg Tablet PO 40 mg DAILY NIKKY Administration Ropinirole HCl 1 mg 04/13/23 21:00 04/13/23 21:27 Ropinirole 1 Mg Tablet PO 1 mg BEDTIME NIKKY Administration Senna/Docusate Sodium 2 tab 04/13/23 20:58 04/14/23 07:40 Sennosides-Docusate Tablet PO 2 tab BID NIKKY Administration Tamsulosin HCl 0.4 mg 04/14/23 06:00 04/14/23 06:03 Tamsulosin 0.4 Mg Capsule PO 0.4 mg QAM NIKKY Administration PFSH Acute PFSH: Medical History (Updated 04/14/23 @ 17:00 by Destin Morales PA-C) Abdominal bloating Cataract Cerebellar stroke syndrome Chronic kidney disease (CKD) Closed fracture of left proximal humerus Compression fracture of L4 vertebra Compression fracture of thoracic vertebra Hemodialysis patient History of peritoneal dialysis HTN (hypertension) Hx of breast cancer Hydronephrosis Hyperlipidemia Hypothyroidism Incomplete bladder emptying Kidney stones Lower GI bleed requiring more than 4 units of blood in 24 hours, ICU, or surgery (07/2022) Microcytic anemia Obstructive pyelonephritis Pleural effusion on right SOB (shortness of breath) Spondylolisthesis at L4-L5 level Type 2 diabetes mellitus Ureteral obstruction, right HX OF RIGHT URETEROSCOPY WITH STENT PLACEMENT Surgical History H/O knee surgery H/O skin graft H/O tubal ligation History of cholecystectomy History of kidney surgery History of lumpectomy of left breast History of surgery Right-sided pleurodesis and Pleurx catheter placement History of surgery on arm Hx of cataract surgery Hx of tonsillectomy S/P dialysis catheter insertion Peritoneal dialysis catheter placement x3 according to patient, revisions had to be performed in [facility] at an outside facility Hemodialysis catheter placement S/P hemodialysis catheter insertion Right IJ: Removed Family History Mother Stroke Father Stroke Social History Smoking and tobacco status: never smoked Alcohol intake: never Substance/Drug Use: never Lives independently: Yes Household members: spouse Marital status: Current occupational status: employed Do you think of yourself as: Straight/Heterosexual Current gender identity: Female Vitals/I&O/Wt Last Vital Signs Temp 97.6 F 04/14/23 13:40 Pulse 57 L 04/14/23 13:40 Resp 15 04/14/23 13:40 BP 100/56 04/14/23 13:40 Pulse Ox 99 04/14/23 13:40 O2 Del Method Nasal Cannula 04/14/23 13:40 O2 Flow Rate 3 04/14/23 13:40 04/14/23 04/14/23 04/14/23 06:59 14:59 22:59 Intake Total 1989 / 1989 Output Total 500 / 500 125 / 125 Balance -500 / -500 1865 / 1865 Weight last 48 hrs Weight 138 lb 6 oz Weight 139 lb Physical Exam Narrative: She is alert and orient x3 has a good general appearance normal mood and affect. She is recovering from anesthesia following her right hip fracture. She has had some nausea and vomiting. She has palpable pain in the thoracic spine she has good sensation in all dermatomal layers. She has palpable pain in the lumbar spine. She is able to wiggle her toes are warm to the touch. Calves are supple no medial thigh tenderness. Hip incision on the left from recent in her trochanteric hip nail as well as most recent hip ORIF on the right. She has good sensation light touch down both lower extremities dorsalis pedis and posterior tibial pulses are palpable she is able to wiggle her toes dorsiflex and plantarflex both ankles. HENMT: COMMON NORMALS: normocephalic and atraumatic HEAD & SCALP: normocephalic and atraumatic Resp: COMMON NORMALS: normal respiratory effort Cardio: COMMON NORMALS: regular rate and regular rhythm RATE: regular rate RHYTHM: regular rhythm GI: COMMON NORMALS: Soft to palpation and non-tender PALPATION: Yes Soft to palpation : COMMON NORMALS: Yes no CVA tenderness BLADDER/KIDNEY EXAM: Yes no CVA tenderness Back/Pelvis: COMMON NORMALS: no CVA tenderness Psych: COMMON NORMALS: mental status grossly normal and cooperative Urinary Catheter Management: Spears: Cath Placed During This Visit: no Reason for Continuing Indwelling Catheter: Perioperative Use in Selected Surgeries Data 04/14/23 03:48 04/14/23 03:[address]: Radiologist's impression: CT/CT thoracic spin wo con* [id number] IMPRESSION: 1. ? Superior T5 age-indeterminate but possibly recent endplate depression fracture. 2. ? Age-indeterminate superior T5 mild endplate depression deformity. ? CT/CT lumbar spine wo con* [id number] IMPRESSION: 1. ? Acute superior L2 mild endplate depression fracture, and opposing L3-L4 endplate depression fractures. 2. ? Degenerative disc and joint disease with multilevel moderate spinal and foraminal stenosis A&P Assessment and plan (1) Compression fracture of thoracic vertebra: At this point the CT scans are difficult to discern acute versus old compression fractures in the thoracic and lumbar spine. We recommend an MRI scan of the thoracic and lumbar spines without contrast but STIR images. The meantime we will keep her bedrest as she is recovering from hip nailing as well. We will obtain the MRIs to discuss further treatment options at that time. Discussed this with Dr. Ferrera at length and agrees above-stated plan. More than 50% of the time spent with the patient today involved coordination of care, counseling and discussion of conservative versus surgical treatment options. Total amount of time spent with the patient was 32 minutes. (2) Traumatic compression fracture of lumbar vertebra: Coding Level of Care Code Acute Code for [facility] Fwd Diagnoses Compression fracture of thoracic vertebra S22.000A Traumatic compression fracture of lumbar vertebra S32.000A Time Spent (min) 32
[2023-04-14] MEDS: iron polysaccharide complex 150 mg Capsule PO (17:04)
[2023-04-14] MEDS: calcium carb-vit d 600mg/400unit 1 Tablet 1 EACH PO (17:04)
[2023-04-14] MEDS: acetaminophen 500 mg Tablet 1000 MG PO (17:04)
[2023-04-14] MEDS: docusate sodium 100 mg Capsule PO (17:04)
[2023-04-14] MEDS: mupirocin oint 22 gm 1 APPLIC NASAL (17:05)
[2023-04-14] MEDS: chlorhexidine gluconate 0.12% UDC 15 mL 30 ML MUCOUS MEM ×2 (17:05→21:19)
--- NOTE | 2023-04-14 17:53 | P.PN_ITS ---
Subjective Subjective: She is awaiting surgery. Denies any additional symptoms. Denies chest pain or trouble breathing. We discussed with her and family regarding mitral regurgitation. She states most previously told about having a murmur. Vitals/I&O/Wt Last Vital Signs Temp 97.6 F 04/14/23 13:40 Pulse 57 L 04/14/23 13:40 Resp 15 04/14/23 13:40 BP 100/56 04/14/23 13:40 Pulse Ox 99 04/14/23 13:40 O2 Del Method Nasal Cannula 04/14/23 17:17 O2 Flow Rate 1 04/14/23 17:17 04/14/23 04/14/23 04/14/23 06:59 14:59 22:59 Intake Total 1989 Output Total 500 / 500 125 / 125 Balance -500 / -500 1865 / 1865 Weight last 48 hrs Weight 62.766 kg Weight 63.049 kg Physical Exam Narrative: Family at bedside Const: COMMON NORMALS: patient oriented x3 and alert GENERAL APPEARANCE: cooperative ORIENTATION/CONSCIOUSNESS: Yes awake HENMT: COMMON NORMALS: oropharynx normal Neck/C-Spine: COMMON NORMALS: no JVD Resp: COMMON NORMALS: normal respiratory effort and clear to auscultation bilaterally AUSCULTATION: clear to auscultation bilaterally Cardio: COMMON NORMALS: no JVD, regular rhythm, S1 normal heart sound present, S2 normal heart sound present and No murmurs present (Cardio) RHYTHM: regular rhythm HEART SOUNDS: S1 normal heart sound present and S2 normal heart sound present GI: COMMON NORMALS: Normal to inspection, nondistended, normoactive bowel sounds present, Soft to palpation and non-tender PALPATION: Yes Soft to palpation Extremity: COMMON NORMALS: no joint enlargement and no pedal edema OTHER: RLE shortened, everted. Extremity well perfused, warm to touch. Dopplerable PT and DP pulses. Neuro: COMMON NORMALS: patient oriented x3 and moves all extremities SENSO RIUM/ORIENTATION: Yes alert Skin: COMMON NORMALS: no rashes or lesions noted GENERAL SKIN EXAM: no rashes or lesions noted Urinary Catheter Management: Spears: Cath Placed During This Visit: no Reason for Continuing Indwelling Catheter: Acute Urinary Retention or Obstruction Data 04/14/23 03:48 04/14/23 03:48 A&P Assessment and plan (1) Closed intertrochanteric fracture of right hip: Right hip fracture repair today. Postoperatively having some nausea, did not respond to Zofran, added Reglan. Reassess blood counts. Orthopedic documentation reviewed. She is started on Lovenox for DVT prophylaxis. Hemoglobin today noted 9.8. Platelets 282. She is afebrile. No leukocytosis, WBC 8.5. Pain control as needed. Monitor vital signs. We will request repeat chemistry, Phos, monitor volume status and respiratory function, at high risk of volume overload with ESRD, mitral regurg. Plan Vertebral compression fracture: Orthospine assessment noted, documentation reviewed. Additional assessment with MRI is recommended and requested. Prior left hip fracture and repair ESRD: Anion gap 14, bicarb 20. Sodium 133, potassium 4.3, chloride 95. On MWF schedule TTS via right upper arm access. Discussed with nephrology. Appreciate consultation. Chest x-ray noted in ER with probable mild chronic recurrent interstitial edema similar to findings back in February. No pulmonary consolidation. Received IV fluids started in ER overnight. Discussed with her, stopped, and given a dose of Lasix with underlying ESRD with risk of pulmonary edema and respiratory failure. Follow-up chest x-ray. Monitor oxygenation. Moderate mitral regurgitation: Follow-up with cardiology. Follow-up: UA is requested. Will need PT HTN: Blood pressure elevated initially, currently soft. Hold antihypertensives for now. She will be Hypothyroidism DM2: Sliding scale insulin. Monitor Accu-Checks. Attestations Medical Necessity Statement*: Continue admission for assessment of lady with multiple traumas, including hip fracture, vertebral fracture, in chronically ill lady with ESRD, mitral regurgitation and risk of pulmonary edema and respiratory failure. Diagnoses Closed intertrochanteric fracture of right hip S72.141A
[2023-04-14] MEDS: metoclopramide 5 mg/mL SDV 2 mL IVP (18:19)
--- NOTE | 2023-04-14 19:03 | PC.NURSE ---
Recheck of BP is 120/62.
[2023-04-14] MEDS: ropinirole 1 mg Tablet PO (21:19)
[2023-04-14] MEDS: amitriptyline 25 mg Tablet 100 MG PO (21:19)
[2023-04-15] VITALS (9 sets, daily range): BP systolic 91–121; BP diastolic 40–53; PULSE 59–99; RESP 15–17; TEMP 36.3–37.4; O2SAT 91–100
[2023-04-15] MEDS: acetaminophen 500 mg Tablet 1000 MG PO ×2 (03:07→11:51)
[2023-04-15] MEDS: clindamycin 600 MG/50 ML PREMIX 100 MG IV ×2 (04:24→19:02)
[2023-04-15 04:31] LABS: Basophils % 0.3 %; Eosinophils # 0.1 10^3/uL (0.0-0.8); Eosinophils % 0.3 %; Hematocrit 26.9 % (37.0-47.0); Hemoglobin 7.9 g/dL (11.5-15.3); Lymphocytes # 0.8 10^3/uL (0.8-4.8); Lymphocytes % 5.2 %; Mean Corpuscular HGB Conc 29.4 g/dL (30.0-36.0); Mean Corpuscular Hemoglobin 28.2 pg (28.0-34.0); Mean Corpuscular Volume 96.1 fl (81-99); Mean Platelet Volume 11.1 fL (7.4-10.4); Monocytes # 0.6 10^3/uL (0.2-0.9); Monocytes % 4.2 %; Neutrophils # 13.18 10^3/uL (1.8-7.7); Neutrophils % 89.3 %; Nucleated Red Blood Cells % 0.1 %; Platelet Count 289 10^3/cmm (130-400); Red Cell Distribution Width 17.1 % (12.1-15.1); White Blood Count 14.8 10^3/uL (4.0-10.0)
[2023-04-15 04:53] LABS: Alanine Aminotransferase 9 U/L (0-33); Albumin Level 2.9 g/dL (3.5-5.2); Alkaline Phosphatase 146 U/L (35-105); Anion Gap 14.9 (5-19); Aspartate Amino Transferase 16 U/L (0-32); Blood Urea Nitrogen 26 mg/dL (8-23); Calcium 8.1 mg/dL (8.5-10.5); Carbon Dioxide 25 mmol/L (22-29); Chloride 95 mmol/L (98-107); Globulin 2.8 g/dL (1.3-4.6); Glucose 138 mg/dL (65-115); Osmolality Calculated 277 mOsm/kg (285-295); Potassium 4.9 mmol/L (3.5-5.1); Sodium 130 mmol/L (136-145); Total Bilirubin 0.4 mg/dL (0.15-1.2); Total Protein 5.7 g/dL (6.6-8.7)
--- NOTE | 2023-04-15 06:00 | XRR_ITS ---
PROCEDURE INFORMATION: Exam: XR Chest Exam date and time: 04/15/2023 6:05 AM Age: 72 years old Clinical indication: Shortness of breath; Additional info: Hypoxia TECHNIQUE: Imaging protocol: Radiologic exam of the chest. Views: 1 view. COMPARISON: CR XR chest 1V portable [id number] 04/13/2023 2:20 PM FINDINGS: Tubes, catheters and devices: Stable positioning of med port catheter. Lungs: Interstitial prominence. Pleural spaces: No significant pleural effusion. Heart/Mediastinum: Cardiac silhouette upper limits of normal size. Vasculature: Calcification of the thoracic aorta. Bones/joints: Osteopenia and degenerative change. Soft tissues: Surgical clips in the left axilla. When correlating with the previous study, no significant interval changes are present. XR/XR chest 1V portable [id number] IMPRESSION: Stable appearance of the chest, without acute airspace or pleural disease.
[2023-04-15] MEDS: tamsulosin 0.4 mg Capsule PO (06:28)
[2023-04-15] MEDS: levothyroxine 200 mcg Tablet PO (06:28)
--- NOTE | 2023-04-15 07:36 | PC.OT ---
OT EVALUATION ORDERS RECEIVED; DUE TO COMP. FX OF VERTEBRAE AND AWAITING MRI; ON BEDREST-WILL HOLD EVAL AT THIS TIME.
[2023-04-15] MEDS: iron polysaccharide complex 150 mg Capsule PO ×2 (08:20→17:53)
[2023-04-15] MEDS: cyclobenzaprine 10 mg Tablet 5 MG PO ×3 (08:20→20:42)
[2023-04-15] MEDS: docusate sodium 100 mg Capsule PO ×2 (08:20→17:53)
[2023-04-15] MEDS: sennosides-docusate Tablet 2 TAB PO ×2 (08:20→17:53)
[2023-04-15] MEDS: pantoprazole DR 40 mg Tablet PO (08:20)
[2023-04-15] MEDS: calcium carb-vit d 600mg/400unit 1 Tablet 1 EACH PO ×2 (08:21→17:53)
[2023-04-15] MEDS: multivitamin therapeutic Tablet 1 TAB PO (08:21)
[2023-04-15] MEDS: chlorhexidine gluconate 0.12% UDC 15 mL 30 ML MUCOUS MEM ×4 (08:21→20:42)
[2023-04-15] MEDS: enoxaparin 30 mg/0.3 mL Syringe SUBCUT (08:21)
[2023-04-15] MEDS: ferrous gluconate 324 mg Tablet PO ×2 (08:21→17:53)
[2023-04-15] MEDS: mupirocin oint 22 gm 1 APPLIC NASAL ×2 (08:22→17:53)
--- NOTE | 2023-04-15 09:30 | MR_ITS ---
WS: [id number] MRI THORACIC SPINE noncontrast. HISTORY: Compression Fractures COMPARISON: Prior CT thoracic spine 07/26/2021 and 04/13/2023 TECHNIQUE: Multiplanar sequences are performed in sagittal and axial planes. Increase in thoracic kyphosis. Mild osteopenia. T5: Mild concave deformity superior endplate without retropulsion. There is a very small amount of ma rrow edema along the superior endplate. No retropulsion. New since 07/26/2021. T7: New superior endplate fracture without retropulsion of vertebral body. Small amount of marrow evonne ma. Fracture is 10%. T8: Moderate to severe anterior compression fracture similar to 07/26/2021. T9: Biconcave fracture. No retropulsion. Similar to the prior study from 07/26/2021. T10 and T11: Very minimal signal abnormality along the superior endplate of T10 without compression. Mild concave deformity T11. T12: Anterior wedging 20% is new since 07/26/2021. Very small amount of marrow edema along the superio r endplate. T1-2: No stenosis. T2-3: No stenosis. T3-4: No stenosis. T4-5: No stenosis. T5-6: No stenosis. T6-7: No stenosis. T7-8: Mild facet arthritis. No stenosis. T8-9: Moderate facet joint arthritis encroaching upon the thecal sac. No high-grade stenosis. T9-10: Bilateral facet joint arthritis. Mild foraminal narrowing. T10-11: Mild facet arthritis. T11-12: Mild disc bulging. MR/MR thoracic spin wo con* [id number] IMPRESSION: 1. Remote stable compression fractures at T8 and T9 since 07/26/2021. 2. New compression fractures involving the superior endplates of T5 and T7, mi nimal deformity of approximately 10% with no retropulsion. New since 07/26/2021. 3. New T12 anterior wedging since 07/26/2021. T12 compression fracture 20%. 4. No significant central or foraminal stenosis. 5. Suspicious but indeterminate for occult fractures involving the superior en dplate of T10 and T11. No definite marrow edema. On the recent CT of 04/13/2023 t here were suspicious findings for fracture especially at T11.
--- NOTE | 2023-04-15 09:30 | MR_ITS ---
WS: [id number] MRI LUMBAR SPINE NONCONTRAST HISTORY: Compression fractures COMPARISON: 08/27/2021 TECHNIQUE: Sagittal and axial multisequence imaging is submitted. L4 anterolisthesis by 4 mm. Small amount of marrow edema in the superior L2 vertebral body with mild concave deformity consistent with an acute fracture. Prior fracture L1 is stable. T12 anterior compre ssion fracture has progressed since 2020. T11 superior endplate is unchanged and similar to the prior study from 2020. Conus terminates normally at L1-2 disc level. L1-L2: Mild facet arthritis. L2-L3: Annular disc bulging and osteophytic ridging. Facet joint arthritis. Mild central, bilateral s ubarticular recess and RIGHT foraminal stenosis. L3-L4: Mild annular disc bulging and osteophytic ridging. Bilateral facet joint arthritis. Central an d subarticular recess stenosis, greater on the RIGHT. Mild encroachment upon the traversing RIGHT L4 nerve root. L4-L5: Diffuse disc bulging and facet arthritis. Mild central and bilateral subarticular recess steno sis. Mild progression of encroachment upon the traversing L5 nerve root since the prior study. L5-S1: No stenosis. MR/MR lumbar spine wo con* [id number] IMPRESSION: 1. Grade 1 anterolisthesis of L4 by 4 mm. No change. 2. New mild acute compression deformity L2, 10%. 3. Prior L1 compression fracture is stable. 4. Mild central and subarticular recess stenosis at L3-4, RIGHT greater than L EFT. Encroachment upon the traversing RIGHT L4 nerve root. 5. Mild central and bilateral subarticular recess stenosis L4-5 with progressi on of encroachment upon the traversing L5 nerve roots. 6. Mild central and bilateral subarticular recess stenosis and RIGHT foraminal stenosis at L2-3.
--- NOTE | 2023-04-15 09:45 | P.PN_ITS ---
Subjective Subjective: No new complaints Medications: Reviewed: Yes Vitals/I&O/Wt Last Vital Signs Temp 97.7 F 04/15/23 08:00 Pulse 81 04/15/23 08:22 Resp 17 04/15/23 08:22 BP 101/53 04/15/23 08:00 Pulse Ox 100 04/15/23 08:22 O2 Del Method Nasal Cannula 04/15/23 08:22 O2 Flow Rate 1 04/15/23 08:22 04/14/23 04/15/23 04/15/23 22:59 06:59 14:59 Intake Total 1340 / 3330 100 / 3430 240 / 240 Output Total 100 / 225 Balance 1340 / 3205 0 / 3205 240 / 240 Weight last 48 hrs Weight 64.229 kg Weight 62.766 kg Weight 63.049 kg Physical Exam Narrative: awake , alert, no acute distress HEENT Regular rate and rhythm per report Lungs clear per report no edema Urinary Catheter Management: Spears: Cath Placed During This Visit: no Reason for Continuing Indwelling Catheter: Other Data 04/15/23 03:14 04/15/23 03:14 A&P Assessment and plan (1) End stage renal disease: Plan 1. End-stage renal disease: Last dialysis Thursday on MWF schedule as outpatient, HD today 2. History of hypertension: Blood pressure stable 3. Anemia hemoglobin 7.9 , multifactorial , sec to blood loss , ESRD . will give procrit, monitor 4. Right hip fracture: s/p repair Attestations Medical Necessity Statement*: per medicine Coding Level of Care Code Acute Code for [facility] Diagnoses End stage renal disease N18.6
[2023-04-15] MEDS: epoetin alfa 1000 Unit/0.05 mL (non-esrd) 20000 UNIT SUBCUT (10:29)
[2023-04-15 11:40] LABS: Hepatitis B Core AB, Total Non-Reactive (Nonreactive); Hepatitis B Surface Antigen Non-Reactive (Nonreactive)
[2023-04-15] MEDS: ropinirole 0.25 mg Tablet 0.5 MG PO (11:51)
[2023-04-15 12:02] LABS: Hepatitis B Surface AB > 1000.0 (11.5-1000)
--- NOTE | 2023-04-15 12:40 | PC.HD ---
Patient's first BP on dialysis was 89/61, MAP 70, patient asymptomatic. Per restoration silversmith's hypotension dialysis orders, dialysate temperature lowered from 36.0C to 35.0C. Albumin x2 ordered and received, currently running. Hot Stamp Operator and primary RN Armida aware. Will continue to monitor closely.
--- NOTE | 2023-04-15 13:30 | PM.PN ---
Subjective Subjective: C/O pain in Mid and Low back. Patient currently in dialysis. Vitals/I&O/Wt Last Vital Signs Temp 97.9 F 04/15/23 12:38 Pulse 82 04/15/23 12:38 Resp 16 04/15/23 12:38 BP 115/44 04/15/23 12:38 Pulse Ox 100 04/15/23 08:22 O2 Del Method Nasal Cannula 04/15/23 08:22 O2 Flow Rate 1 04/15/23 08:22 04/14/23 04/15/23 04/15/23 22:59 06:59 14:59 Intake Total 1340 / 3330 100 / 3430 480 / 480 Output Total 100 / 225 Balance 1340 / 3205 0 / 3205 480 / 480 Weight last 48 hrs Weight 141 lb 9.6 oz Weight 138 lb 6 oz Weight 139 lb Physical Exam Narrative: Patient presents alert and oriented x3 with a good general appearance normal mood and affect. Normal coordination normal stability. Pain in mid and low back. 4/5 motor strength both lower extremities Calves are supple no medial thigh tenderness. Pulses are 2+ at the dorsalis pedis and posterior tibial region. Good capillary refill throughout normal sensation light touch both lower extremities. HENMT: COMMON NORMALS: normocephalic and atraumatic HEAD & SCALP: normocephalic and atraumatic Resp: COMMON NORMALS: normal respiratory effort Cardio: COMMON NORMALS: regular rate and regular rhythm RATE: regular rate RHYTHM: regular rhythm GI: COMMON NORMALS: non-tender : COMMON NORMALS: Yes no CVA tenderness BLADDER/KIDNEY EXAM: Yes no CVA tenderness Back/Pelvis: COMMON NORMALS: no CVA tenderness Psych: COMMON NORMALS: cooperative Urinary Catheter Management: Spears: Cath Placed During This Visit: no Reason for Continuing Indwelling Catheter: Other Data 04/15/23 03:14 04/15/23 03:14 A&P Assessment and plan (1) Traumatic compression fracture of lumbar vertebra: Discussed treatment options that involve TLSO brace or kyphoplasty. Patient does not want surgery at this time. We will proceed with a TLSO brace continue to work towards mobilization based on her recent right hip ORIF. We will see her back in the office in 1 to 2 weeks to check her progress. Restrict bending lifting and twisting activities. Ice to the back as tolerated. Defer to medical team for discharge and placement. (2) Compression fracture of thoracic vertebra: (3) Closed intertrochanteric fracture of right hip: Attestations Medical Necessity Statement*: defer to medical team Coding Level of Care Code Acute Code for g Fwd Diagnoses Traumatic compression fracture of lumbar vertebra S32.000A Compression fracture of thoracic vertebra S22.000A Closed intertrochanteric fracture of right hip S72.141A
--- NOTE | 2023-04-15 14:54 | PM.PN ---
Subjective Subjective: No new complaints Medications: Reviewed: Yes Vitals/I&O/Wt Last Vital Signs Temp 97.9 F 04/15/23 12:38 Pulse 82 04/15/23 12:38 Resp 16 04/15/23 12:38 BP 115/44 04/15/23 12:38 Pulse Ox 93 04/15/23 12:00 O2 Del Method Room Air 04/15/23 12:00 O2 Flow Rate 1 04/15/23 08:22 04/14/23 04/15/23 04/15/23 22:59 06:59 14:59 Intake Total 1340 / 3330 100 / 3430 480 / 480 Output Total 100 / 225 Balance 1340 / 3205 0 / 3205 480 / 480 Weight last 48 hrs Weight 64.229 kg Weight 62.766 kg Physical Exam Narrative: awake , alert, no acute distress HEENT Regular rate and rhythm per report Lungs clear per report no edema Urinary Catheter Management: Separs: Cath Placed During This Visit: no Reason for Continuing Indwelling Catheter: Other Data 04/16/23 10:50 04/16/23 01:10 A&P Assessment and plan (1) Closed intertrochanteric fracture of right hip: Plan 1. End-stage renal disease: Last dialysis Thursday on MWF schedule as outpatient, HD tomorrow 2. History of hypertension: Blood pressure stable 3. Anemia hemoglobin 7.9 , multifactorial , sec to blood loss , ESRD . will give procrit, monitor 4. Right hip fracture: s/p repair Attestations Medical Necessity Statement*: per medicine Coding Level of Care Code Acute Code for [facility] Diagnoses Closed intertrochanteric fracture of right hip S72.141A
--- NOTE | 2023-04-15 15:10 | PM.PN ---
Subjective Subjective: Patient seen and evaluated this evening. Patient was receiving dialysis. Dressings on in place clean dry and intact. Patient states pain is controlled. No other issues or complaints at this time. Vitals/I&O/Wt Last Vital Signs Temp 97.9 F 04/15/23 12:38 Pulse 82 04/15/23 12:38 Resp 16 04/15/23 12:38 BP 115/44 04/15/23 12:38 Pulse Ox 93 04/15/23 12:00 O2 Del Method Room Air 04/15/23 12:00 O2 Flow Rate 1 04/15/23 08:22 04/15/23 04/15/23 04/15/23 06:59 14:59 22:59 Intake Total 100 / 3430 480 / 480 Output Total 100 / 225 Balance 0 / 3205 480 / 480 Weight last 48 hrs Weight 141 lb 9.6 oz Weight 138 lb 6 oz Physical Exam Narrative: Right lower extremity Dressings on right ankle clean dry and intact no evidence of saturation bandages left on in place compartments are soft and compressible normal postoperative swelling and ecchymosis. Patient is able to wiggle toes plantarflex and dorsiflex ankle endorses sensations intact to light touch distally distal pulses are palpable Urinary Catheter Management: Spears: Cath Placed During This Visit: no Reason for Continuing Indwelling Catheter: Other Data 04/17/23 03:10 04/17/23 03:10 Other Labs: 04/15/2023 hemoglobin 7.9 Xray Ortho: My impression: Postop x-rays reviewed and demonstrate a stable right intertrochanteric femur fracture status post cephalomedullary nail placement. A&P Assessment and plan (1) Closed intertrochanteric fracture of right hip: Plan Pain control DVT prophylaxis Postoperative antibiotics Internal medicine on board as primary Ice as needed Weight-bear as tolerated right lower extremity PT/OT Change dressings as needed Follow-up with Dr. Brady in 2 weeks upon discharge Case management on board working on discharge planning and placement Orthopedics will follow up tomorrow A.m. labs reviewed Attestations Medical Necessity Statement*: Ongoing care right intertrochanteric femur fracture Coding Level of Care Code Acute Code for Chg Fwd Diagnoses Closed intertrochanteric fracture of right hip S72.141A Time Spent (min) 20
[2023-04-15] MEDS: HYDROcodone-acetaminophen 7.5-325 mg Tablet 1 TAB PO (16:47)
[2023-04-15] MEDS: heparin, porcine 1,000 unit/mL INJ 10 mL 10000 UNIT INTRACATH (17:12)
[2023-04-15] MEDS: heparin, porcine 1,000 unit/mL INJ 10 mL 1000 UNIT IV (17:12)
--- NOTE | 2023-04-15 19:03 | P.PN_ITS ---
Subjective Subjective: She states she is doing all right. She is somewhat somnolent this morning. Some pain in her back. Later ongoing for hemodialysis. Medications: Reviewed: Yes Vitals/I&O/Wt Last Vital Signs Temp 98.1 F 04/15/23 16:00 Pulse 79 04/15/23 16:00 Resp 17 04/15/23 16:00 BP 106/52 04/15/23 16:00 Pulse Ox 96 04/15/23 16:00 O2 Del Method Nasal Cannula 04/15/23 16:00 O2 Flow Rate 1 04/15/23 08:22 04/15/23 04/15/23 04/15/23 06:59 14:59 22:59 Intake Total 100 / 3430 480 / 480 540 / 1020 Output Total 100 / 225 2800 / 2800 Balance 0 / 3205 480 / 480 -2260 / -1780 Weight last 48 hrs Weight 63.5 kg Weight 64.229 kg Weight 62.766 kg Physical Exam Narrative: Somnolent, wakes up to voice Const: COMMON NORMALS: patient oriented x3 GENERAL APPEARANCE: cooperative HENMT: COMMON NORMALS: oropharynx normal Neck/C-Spine: COMMON NORMALS: no JVD Resp: COMMON NORMALS: normal respiratory effort and clear to auscultation bilaterally AUSCULTATION: clear to auscultation bilaterally Cardio: COMMON NORMALS: no JVD, regular rhythm, S1 normal heart sound present, S2 normal heart sound present and No murmurs present (Cardio) RHYTHM: regular rhythm HEART SOUNDS: S1 normal heart sound present and S2 normal heart sound present GI: COMMON NORMALS: Normal to inspection, nondistended, normoactive bowel sounds present, Soft to palpation and non-tender PALPATION: Yes Soft to palpation Extremity: COMMON NORMALS: no joint enlargement and no pedal edema OTHER: RLE perfused Neuro: COMMON NORMALS: patient oriented x3 and moves all extremities Skin: COMMON NORMALS: no rashes or lesions noted GENERAL SKIN EXAM: no rashes or lesions noted Urinary Catheter Management: Spears: Cath Placed During This Visit: no Reason for Continuing Indwelling Catheter: Other Data 04/15/23 03:14 04/15/23 03:14 A&P Assessment and plan (1) Closed intertrochanteric fracture of right hip: Right hip fracture repair 04/14. Hemoglobin 7.9. Platelets 289. Leukocytosis 14.8. Symptomatically she is doing well. Recheck blood counts. Reassess anemia, leukocytosis. Therapy assessment. Discharge planning. Discussed with case management. Discussed with orthopedics. Still requiring IV morphine for pain. Wean down as tolerating. Monitor vital signs. Plan Vertebral compression fracture: Old compression fractures noted on MRI, as well as new compression fractures. Weight T5 and T7, minimal deformity approximately 1% with no retropulsion, new T12 anterior wedging since 07/26/2021. T12 compress ion fracture 20%. Suspicious but indeterminate for fracture involving superior endplate of T10 and T11. No definite bone marrow edema. On recent CT 04/13/2023 suspicious findings for fracture especially T11. Will need follow-up regarding pathologic fractures. [facility] documentation reviewed, consideration of TLSO brace. Consideration of kyphoplasty. She is choosing conservative management. Follow-up in 1-2 weeks in office. Prior left hip fracture and repair ESRD: HD today Chest x-ray noted in ER with probable mild chronic recurrent interstitial edema similar to findings back in February. No pulmonary consolidation. Received IV fluids started in ER overnight. Discussed with her, stopped, and given a dose of Lasix with underlying ESRD with risk of pulmonary edema and respiratory failure. Follow-up chest x-ray. Monitor oxygenation. Moderate mitral regurgitation: Follow-up with cardiology. Fall: UA not suggestive of UTI. PT assessment. HTN: Blood pressure elevated initially, currently soft. Hold antihypertensives for now. She will be Hypothyroidism DM2: Sliding scale insulin. Monitor Accu-Checks. Attestations Medical Necessity Statement*: Continue assessment and management after hip fracture and repair complicated by vertebral fractures, ESRD, mitral regurgitation. Diagnoses Closed intertrochanteric fracture of right hip S72.141A
[2023-04-15] MEDS: amitriptyline 25 mg Tablet 100 MG PO (20:41)
[2023-04-15] MEDS: ropinirole 1 mg Tablet PO (20:42)
[2023-04-16] VITALS (9 sets, daily range): BP systolic 85–155; BP diastolic 52–62; PULSE 64–83; RESP 14–18; TEMP 36.5–37.1; O2SAT 91–100
[2023-04-16 00:12] LABS: Glucose Point of Care 240 mg/dL (70-110)
--- NOTE | 2023-04-16 00:20 | CTR_ITS ---
PROCEDURE INFORMATION: Exam: CTA Head With Contrast, Arteriography Exam date and time: 04/16/2023 12:46 AM Age: 72 years old Clinical indication: Stroke-like symptoms; Altered mental status/memory loss and speech disturbance; Additional info: Aphasia TECHNIQUE: Imaging protocol: Computed tomographic angiography of the head with contrast. Exam focused on the arteries. 3D rendering (Not supervised by radiologist): MIP and/or 3D reconstructed images were created by the technologist. Radiation optimization: All CT scans at this facility use at least one of these dose optimization techniques: automated exposure control; mA and/or kV adjustment per patient size (includes targeted exams where dose is matched to clinical indication); or iterative reconstruction. Contrast material: OMNI 350; Contrast volume: 100 ml; Contrast route: INTRAVENOUS (IV); REPORTING DATA: Count of CT and Cardiac NM exams in prior 12 months: This patient has received 8 known CTs and 0 known cardiac nuclear medicine studies in the 12 months prior to the current study. COMPARISON: CT head wo con* [id number] 04/16/2023 12:39 AM RADIATION DOSE METRICS: Total DLP (mGy-cm): 294.13 FINDINGS: ANTERIOR CIRCULATION: Right internal carotid artery: Intracranial segment is patent with no significant stenosis. No aneurysm. Right middle cerebral artery: No occlusion or significant stenosis. No aneurysm. Right anterior cerebral artery: Probable scattered stenosis throughout the distal right anterior cerebral artery without occlusion. Left internal carotid artery: Intracranial segment is patent with no significant stenosis. No aneurysm. Left middle cerebral artery: No occlusion or significant stenosis. No aneurysm. Left anterior cerebral artery: Multiple short segment stenosis throughout the left anterior cerebral artery with mild to moderate severity. Negative for occlusion. POSTERIOR CIRCULATION: Right vertebral artery: No occlusion or significant stenosis. No aneurysm. Left vertebral artery: No occlusion or significant stenosis. No aneurysm. Basilar artery: No occlusion or significant stenosis. No aneurysm. Right posterior cerebral artery: No occlusion or significant stenosis. No aneurysm. Left posterior cerebral artery: Mild severity stenosis of the left INCIDENT MANAGER P1 segment without occlusion. Brain: Negative for hemorrhage. Extra-axial mass in the superior left cerebral hemisphere redemonstrated; suspect meningioma. Cerebral ventricles: No ventriculomegaly. Bones/joints: Unremarkable. No acute fracture. Soft tissues: Unremarkable. PROCEDURE INFORMATION: Exam: CTA Neck With Contrast Exam date and time: 04/16/2023 12:46 AM Age: 72 years old Clinical indication: Stroke-like symptoms; Altered mental status/memory loss and speech disturbance; Additional info: Aphasia TECHNIQUE: Imaging protocol: Computed tomographic angiography of the neck with contrast. 3D rendering (Not supervised by radiologist): MIP and/or 3D reconstructed images were created by the technologist. Radiation optimization: All CT scans at this facility use at least one of these dose optimization techniques: automated exposure control; mA and/or kV adjustment per patient size (includes targeted exams where dose is matched to clinical indication); or iterative reconstruction. Contrast material: OMNI 350; Contrast volume: 100 ml; Contrast route: INTRAVENOUS (IV); REPORTING DATA: Count of CT and Cardiac NM exams in prior 12 months: This patient has received 8 known CTs and 0 known cardiac nuclear medicine studies in the 12 months prior to the current study. COMPARISON: CT cervical spin wo con* [id number] 02/27/2023 5:33 AM RADIATION DOSE METRICS: Total DLP (mGy-cm): 294.13 FINDINGS: Tubes, catheters and devices: Partially included left chest port extends into the SVC. Right common carotid artery: No stenosis. No dissection or occlusion. Right internal carotid artery: Large calcified plaque volume proximal right ICA. Mild severity stenosis. Negative for occlusion or dissection. Right external carotid artery: No occlusion or stenosis of the origin. Left common carotid artery: No stenosis. No dissection or occlusion. Left internal carotid artery: Large circumferential calcified plaque volume proximal left ICA. Mild severity stenosis. Negative for occlusion. Negative for dissection. Left external carotid artery: No occlusion or stenosis of the origin. Right vertebral artery: No stenosis. No dissection or occlusion. Left vertebral artery: No stenosis. No dissection or occlusion. Soft tissues: Normal. No significant soft tissue swelling. Bones/joints: No acute fracture. CT/CT angio headneck* [id number] IMPRESSION: Negative for acute intracranial large arterial vessel occlusion. IMPRESSION: 1. Less than 50% carotid artery stenosis. 2. Negative for vascular occlusion in the neck. REFERENCES: NASCET CRITERIA. The degree of stenosis in the cervical segment of the internal carotid artery is based on NASCET criteria. Normal is no stenosis. Mild is less than 50% stenosis. Moderate is 50-69% stenosis. Severe is 70% to 99% stenosis. Total occlusion is no detectable patent lumen.
--- NOTE | 2023-04-16 00:20 | CTR_ITS ---
PROCEDURE INFORMATION: Exam: CT Head Without Contrast Exam date and time: 04/16/2023 12:39 AM Age: 72 years old Clinical indication: Stroke-like symptoms; Altered mental status/memory loss and speech disturbance; Additional info: Sudden onset of aphasia. Confusion. TECHNIQUE: Imaging protocol: Computed tomography of the head without contrast. Radiation optimization: All CT scans at this facility use at least one of these dose optimization techniques: automated exposure control; mA and/or kV adjustment per patient size (includes targeted exams where dose is matched to clinical indication); or iterative reconstruction. Other technique: STROKE PROTOCOL was implemented. REPORTING DATA: Count of CT and Cardiac NM exams in prior 12 months: This patient has received 8 known CTs and 0 known cardiac nuclear medicine studies in the 12 months prior to the current study. COMPARISON: 1. CT head wo con* [id number] 02/27/2023 5:[address] head wo con* [id number] 10/13/2022 8:22 AM RADIATION DOSE METRICS: Total DLP (mGy-cm): 2677.28 FINDINGS: Brain: There is moderate cerebral atrophy. There is moderate diffuse heterogeneity of the white matter attenuation, consistent with chronic white matter ischemic changes. Negative for intracranial hemorrhage. Negative for intracranial mass. Negative for midline shift brain. Flaherty matter and white matter interfaces are preserved. Circumscribed hyperdense extra-axial mass at the superior margin of the posterior left cerebral hemisphere is stable from comparison with no significant mass effect on the brain parenchyma. Cerebral ventricles: No ventriculomegaly. Paranasal sinuses: Visualized sinuses are unremarkable. No fluid levels. Mastoid air cells: Visualized mastoid air cells are well aerated. Bones/joints: Unremarkable. No acute fracture. Soft tissues: Unremarkable. CT/CT head wo con* [id number] IMPRESSION: 1. Negative for acute intracranial pathology. 2. No change in intracranial mass; suspect benign meningioma. ASSESSMENT: ASPECTS ([facility] Stroke Program Early CT Score) is 10.
[2023-04-16] MEDS: iohexol 350 mg/mL 500 mL Btl (per mL) IV (00:58)
[2023-04-16 01:20] LABS: Basophils % 0.4 %; Eosinophils # 0.1 10^3/uL (0.0-0.8); Eosinophils % 0.7 %; Lymphocytes # 0.6 10^3/uL (0.8-4.8); Lymphocytes % 7.5 %; Mean Corpuscular HGB Conc 30.1 g/dL (30.0-36.0); Mean Corpuscular Hemoglobin 27.8 pg (28.0-34.0); Mean Corpuscular Volume 92.3 fl (81-99); Mean Platelet Volume 10.4 fL (7.4-10.4); Monocytes # 0.6 10^3/uL (0.2-0.9); Monocytes % 6.9 %; Neutrophils # 7.02 10^3/uL (1.8-7.7); Nucleated Red Blood Cells % 0 %; Platelet Count 204 10^3/cmm (130-400); Red Blood Count 2.09 10^6/uL (4.1-5.3); Red Cell Distribution Width 17.6 % (12.1-15.1); White Blood Count 8.4 10^3/uL (4.0-10.0)
--- NOTE | 2023-04-16 01:24 | PM.CONSULT ---
Providers/Reason For Consult Consulting Physician/Specialty*: Farshad Sarmiento MD neurology and epilepsy Reason for Consult*: Code stroke on 04/16/2023 at 12:24 AM to the [facility] surgical floor room 251 bed #2 Attending Physician: Hung Gonsalez Primary Care Provider: Evelia Mendez History of Present Illness History of Present Illness María Saab is a 72 year old female with a history of type 2 diabetes mellitus, end-stage renal disease on hemodialysis, hypertension, anemia, osteoarthritis of the knees bilaterally, compression fracture of the thoracic vertebrae and closed intertrochanteric fracture of the right hip requiring surgery on 04/14/2023. The patient was placed on Lovenox 30 mg subcutaneously every 24 hours for deep venous thrombosis following her right hip surgery on 04/14/2023. According to the nurse who is caring for the patient this morning, the patient's underwent hemodialysis on 04/15/2023 and the patient last known well was 8:42 PM on 04/15/2023. This morning on 04/16/2023 at 12:12 AM the nurse was obtaining the patient's vitals signs and the patient was not talking and was observed to have slurred speech. According to the nurse caring for the patient this morning, the patient's blood pressure was 85/40 with a oxygen saturation of 82%. Code stroke was initiated at 12:24 AM on 04/16/2023. I arrived at 12:45 AM on 04/16/2023. The patient was off the floor and was taken to the CT scanner. I waited at the nurses station to review the patient's medical records and reviewed the unread noncontrast head CT scan which did not reveal any acute findings. The nurses station and computer where near the patient's room 251 bed #2. The nurse caring for the patient returned with the patient on the stretcher approximately 10 minutes following my arrival to the [facility] surgery unit. Upon evaluating the patient NIH score = 2. Note: The patient complained of right hip pain and proximal thigh weakness on the right but had right hip surgery 2 days prior to this neurological evaluation. The patient's distal strength in the right lower extremity was 5/5. CT angiogram of the head and neck was performed and read by radiology. The CT angiogram reported large calcific calcified plaque in the right and left internal carotid arteries measuring less than 50% stenosis. Radiology also reported a benign meningioma in the left posterior hemisphere on the head CT scan performed on 04/16/2023. Note: Since the patient's last known well was 8:42 PM on 04/15/2023 and I could not complete my assessment until 1:08 AM on 04/16/2023 and the patient had right hip surgery performed 2 days prior to the code stroke and the patient was on Lovenox subcutaneously for deep venous thrombosis and the patient has a history of anemia and her NIH score = 2, the patient was not a candidate for tPA and tPA was not administered. Repeat blood pressure following my neurological assessment was obtained. Blood pressure 124/61 heart rate 79 O2 saturation 99% on oxygen 2 L nasal cannula and the patient was alert and able to communicate and follow instructions and was in no apparent distress. Past medical history: Status post right hip surgery 04/14/2023 for right hip fracture History of left hip fracture Hypothyroid End-stage renal disease on hemodialysis Hypertension Anemia Diabetic retinopathy Diabetic neuropathy History of lower GI bleed requiring more than 4 units of blood and 24 hours on July 2022 Drug allergies: Penicillin which resulted in a rash Propoxyphene which resulted in a rash Codeine which resulted in a rash Medications: Lovenox 30 mg subcutaneously every 24 hours Amitriptyline 100 mg p.o. nightly Norvasc 5 mg p.o. daily Dulcolax 10 mg p.o. as needed constipation Carvedilol Flexeril 5 mg p.o. 3 times daily Trulicity 0.75 mg subcutaneously every 7 days Ferrous gluconate 324 mg p.o. twice daily Hydrocodone?acetaminophen 1 p.o. every 6 hours as needed pain Synthroid 200 mcg p.o. every morning Pantoprazole 40 mg p.o. daily RenaPlex-D 1 p.o. daily Review of Systems General: Reports: 10 or more systems reviewed and unremarkable except in HPI and below Eyes: Reports: change in vision, blurry vision and other Resp: Reports: dyspnea : Reports: other (End-stage renal disease) Musc: Reports: joint pain, muscle weakness and other (Status post right hip surgery) Neuro: Reports: weakness in extremities, confusion and other (Slurred speech confusion) Dave/Lymph: Reports: other (Anemia, end-stage renal disease) Medications/Allergies Home Medications Medication Instructions Recorded Confirmed Last Taken Type amitriptyline 100 mg tablet 100 mg PO BEDTIME 10/02/20 04/13/23 07/18/22 History tamsulosin 0.4 mg capsule 0.4 mg PO QAM 07/18/22 04/13/23 07/18/22 History flash glucose scanning reader #1 ea 12/15/22 04/13/23 Unknown Rx (FreeStyle Anita 2 [place]) flash glucose sensor (FreeStyle #3 ea 12/15/22 04/13/23 Unknown Rx Anita 2 Sensor kit) carvedilol 12.5 mg tablet See Rx Instructions .Route .COMPLEX 02/27/23 04/13/23 Unknown History levothyroxine 200 mcg tablet 200 mcg PO QAM 02/27/23 04/13/23 Unknown History lidocaine-prilocaine 2.5 %-2.5 % See Rx Instructions .Route .COMPLEX 02/27/23 04/13/23 Unknown History topical cream ropinirole 0.5 mg tablet See Rx Instructions .Route .COMPLEX 02/27/23 04/13/23 1 Week Ago History ~02/20/23 ropinirole 1 mg tablet 1 mg PO BEDTIME 02/27/23 04/13/23 Unknown History vit B,C-folic ac 800 mcg-zinc 12.5 1 tab PO DAILY 02/27/23 04/13/23 Unknown History mg-selen-D3 2,000 unit-vit E tablet (RenaPlex-D) cyclobenzaprine 10 mg tablet 5 mg PO TID #30 tabs 03/02/23 04/13/23 Unknown Rx ferrous gluconate 324 mg (37.5 mg 324 mg PO BIDWM #60 tabs 03/02/23 04/13/23 Unknown Rx iron) tablet hydrocodone 7.5 mg-acetaminophen 1 tab PO Q6H PRN severe pain 03/02/23 04/13/23 Unknown Rx 325 mg tablet (scale score 7-10) #20 tabs pantoprazole 40 mg tablet,delayed 40 mg PO DAILY #30 tabs 03/02/23 04/13/23 Unknown Rx release sennosides 8.6 mg-docusate sodium 2 tab PO BID #120 tabs 03/02/23 04/13/23 Unknown Rx 50 mg tablet (Stool Softener-Laxative) sucralfate 1 gram tablet 1 g PO BID 8 weeks #112 tabs 03/02/23 04/13/23 Unknown Rx tramadol 50 mg tablet 50 mg PO Q8H PRN Moderate Pain #30 03/02/23 04/13/23 Unknown Rx tabs amlodipine 5 mg tablet (Norvasc) 5 mg PO DAILY 04/13/23 04/13/23 Unknown History bisacodyl 10 mg rectal suppository 10 mg IN DAILY PRN Constipation 04/13/23 04/13/23 Unknown History (Dulcolax (bisacodyl)) dulaglutide 0.75 mg/0.5 mL 0.75 mg SUBCUT Q7D 04/13/23 04/13/23 Unknown History subcutaneous pen injector (Trulicity) magnesium hydroxide 400 mg/5 mL 15 ml PO DAILY PRN Constipation 04/13/23 04/13/23 Unknown History oral suspension (Milk of Magnesia) mv-mn-folic 200 mcg-vit K 15 1 cap PO DAILY 04/13/23 04/13/23 Unknown History mcg-lutein 5 mg-zeaxanthin 1 mg capsule (PreserVision AREDS 2 Plus Multivit) sodium phosphates 19 gram-7 118 ml IN DAILY PRN Constipation 04/13/23 04/13/23 Unknown History gram/118 mL enema (Fleet Enema) Allergies Allergy/AdvReac Type Severity Reaction Status Date / Time Penicillins Allergy Mild ALGY-Rash Verified 04/13/23 14:00 propoxyphene [From Darvon] Allergy Mild ALGY-Rash Verified 04/13/23 14:00 codeine Allergy ALGY-Rash Verified 04/13/23 14:00 Current Medications Generic Name Dose Route Start Last Admin Trade Name Freq PRN Reason Stop Dose Admin Acetaminophen 1,000 mg 04/14/23 18:45 04/15/23 19:04 Acetaminophen 500 Mg Tablet PO Not Given Q8H NIKKY Hydrocodone Bitart/Acetaminophen 1 tab 04/13/23 20:58 04/15/23 16:47 Hydrocodone-Acetaminophen 7.5-325 Mg Tablet PO 1 tab Q6H PRN Administration severe pain (scale score 7-10) Amitriptyline HCl 100 mg 04/13/23 21:15 04/15/23 20:41 Amitriptyline 25 Mg Tablet PO 100 mg BEDTIME NIKKY Administration Amlodipine Besylate 5 mg 04/14/23 09:00 04/14/23 07:40 Amlodipine 5 Mg Tablet PO 5 mg DAILY [facility] Administration Calcium Carbonate 1 each 04/14/23 18:00 04/15/23 17:53 Calcium Carb-Vit D 600mg/400unit 1 Tablet PO 1 each BID [facility] Administration Carvedilol 12.8 mg 04/14/23 09:00 04/14/23 07:40 Carvedilol 12.5 Mg Tablet PO 12.8 mg [facility] Administration Chlorhexidine Gluconate 30 ml 04/14/23 17:00 04/15/23 20:42 Chlorhexidine Gluconate 0.12% Udc 15 Ml MUCOUS MEM 30 ml QID [facility] Administration Cyclobenzaprine HCl 5 mg 04/13/23 21:00 04/15/23 20:42 Cyclobenzaprine 10 Mg Tablet PO 5 mg TID [facility] Administration Docusate Sodium 100 mg 04/14/23 18:00 04/15/23 17:53 Docusate Sodium 100 Mg Capsule PO 100 mg BID [facility] Administration Enoxaparin Sodium 30 mg 04/15/23 08:00 04/15/23 08:21 Enoxaparin 30 Mg/0.3 Ml Syringe SUBCUT 30 mg Q24H [facility] Administration Ferrous Gluconate 324 mg 04/13/23 20:58 04/15/23 17:53 Ferrous Gluconate 324 Mg Tablet PO 324 mg BIDWM [facility] Administration Levothyroxine Sodium 200 mcg 04/14/23 06:00 04/15/23 06:28 Levothyroxine 200 Mcg Tablet PO 200 mcg QAM [facility] Administration Lidocaine/Prilocaine 0 applic 04/14/23 08:00 04/14/23 14:09 Lidocaine-Prilocaine Cream 5 Gm TOPICAL Not Given [facility] Metoclopramide HCl 5 mg 04/14/23 17:22 04/14/23 18:19 Metoclopramide 5 Mg/Ml Sdv 2 Ml IVP 5 mg Q6H PRN Administration NAUSEA AND VOMITING Morphine Sulfate 4 mg 04/13/23 20:58 04/14/23 04:05 Morphine 4 Mg/Ml Sdv 1 Ml IVP 4 mg Q4H PRN Administration SEVERE PAIN Multivitamins Therapeutic 1 tab 04/15/23 09:00 04/15/23 08:21 Multivitamin Therapeutic Tablet PO 1 tab DAILY [facility] Administration Mupirocin 1 applic 04/14/23 18:00 04/15/23 17:53 Mupirocin Oint 22 Gm NASAL 04/19/23 17:59 1 applic BID NIKKY Administration Protocol Ondansetron HCl 4 mg 04/13/23 20:58 04/14/23 14:30 Ondansetron 2 Mg/Ml Sdv 2 Ml IVP 4 mg Q6H PRN Administration NAUSEA AND VOMITING Pantoprazole Sodium 40 mg 04/14/23 09:00 04/15/23 08:[address] 40 Mg Tablet PO 40 mg DAILY NIKKY Administration Polysaccharide Iron Complex 150 mg 04/14/23 18:00 04/15/23 17:53 Iron Polysaccharide Complex 150 Mg Capsule PO 150 mg BIDWM NIKKY Administration Ropinirole HCl 1 mg 04/13/23 21:00 04/15/23 20:42 Ropinirole 1 Mg Tablet PO 1 mg BEDTIME NIKKY Administration Ropinirole HCl 0.5 mg 04/15/23 10:00 04/15/23 11:51 Ropinirole 0.25 Mg Tablet PO 0.5 mg MOWEFR NIKKY Administration Senna/Docusate Sodium 2 tab 04/13/23 20:58 04/15/23 17:53 Sennosides-Docusate Tablet PO 2 tab BID NIKKY Administration Tamsulosin HCl 0.4 mg 04/14/23 06:00 04/15/23 06:28 Tamsulosin 0.4 Mg Capsule PO 0.4 mg QAM NIKKY Administration PFSH Acute PFSH: Medical History (Updated 04/16/23 @ 02:13 by Farshad Sarmiento MD) Abdominal bloating Cataract Cerebellar stroke syndrome Chronic kidney disease (CKD) Closed fracture of left proximal humerus Compression fracture of L4 vertebra Compression fracture of thoracic vertebra Hemodialysis patient History of peritoneal dialysis HTN (hypertension) Hx of breast cancer Hydronephrosis Hyperlipidemia Hypothyroidism Incomplete bladder emptying Kidney stones Lower GI bleed requiring more than 4 units of blood in 24 hours, ICU, or surgery (07/2022) Microcytic anemia Obstructive pyelonephritis Pleural effusion on right SOB (shortness of breath) Spondylolisthesis at L4-L5 level Type 2 diabetes mellitus Ureteral obstruction, right HX OF RIGHT URETEROSCOPY WITH STENT PLACEMENT Surgical History H/O knee surgery H/O skin graft H/O tubal ligation History of cholecystectomy History of kidney surgery History of lumpectomy of left breast History of surgery Right-sided pleurodesis and Pleurx catheter placement History of surgery on arm Hx of cataract surgery Hx of tonsillectomy S/P dialysis catheter insertion Peritoneal dialysis catheter placement x3 according to patient, revisions had to be performed in [facility] at an outside facility Hemodialysis catheter placement S/P hemodialysis catheter insertion Right IJ: Removed Family History Mother Stroke Father Stroke Social History Smoking and tobacco status: never smoked Alcohol intake: never Substance/Drug Use: never Lives independently: Yes Household members: spouse Marital status: Current occupational status: employed Do you think of yourself as: Straight/Heterosexual Current gender identity: Female Vitals/I&O/Wt Last Vital Signs Temp 98.6 F 04/16/23 00:00 Pulse 79 04/16/23 00:00 Resp 14 04/16/23 00:00 BP 114/59 04/16/23 00:05 Pulse Ox 99 04/16/23 00:00 O2 Del Method Room Air 04/16/23 00:00 O2 Flow Rate 2 04/15/23 20:00 04/15/23 04/15/23 04/16/23 14:59 22:59 06:59 Intake Total 480 / 480 890 / 1370 Output Total 2800 / 2800 Balance 480 / 480 -1910 / -1430 Weight last 48 hrs Weight 139 lb 15.896 oz Weight 141 lb 9.6 oz Weight 138 lb 6 oz Physical Exam Narrative: NIH =2 The patient is mildly confused. The patient knew her age but did not know the month. She had some mild dysarthria. Head atraumatic. Cranial nerves II through XII grossly intact. Pupils 5 mm round reactive to light and accommodation extraocular movements intact motor testing 5/5 bilaterally except for proximal right thigh weakness secondary to hip fracture and surgery. Deep tendon reflexes grossly symmetrical at 1-2+ plantar responses flexor bilaterally. There was no clonus. Sensory examination was intact to gross modalities. There was no extinction on double sensory stimulation. There was no ataxia in the upper extremities. Lower extremities were not tested secondary to the right hip fracture and recent surgery and patient complaining of right hip and thigh pain. Throat clear. Lungs clear. Heart regular rhythm and rate. Extremities were negative for clubbing or cyanosis. Urinary Catheter Management: Spears: Cath Placed During This Visit: no Reason for Continuing Indwelling Catheter: Other Data 04/15/23 03:14 04/15/23 03:14 A&P Assessment and plan (1) TIA (transient ischemic attack): (2) Carotid stenosis: (3) Hypotension: Plan Assessment: 1. Code stroke [facility] unit room 251. #2 at 12:24 AM NIH score =2 and the patient had recent right hip surgery on 04/14/2023, anemia, and receiving Lovenox subcutaneously therefore the patient was not a candidate for tPA and no tPA was administered. 2. Possible transient ischemic attack versus secondary to hypotension and decreased O2 saturations of 85/40 and O2 saturations of 82%), improved with repeat blood pressure 124/61 heart rate 79 O2 saturation 99% on 2 L of oxygen 3. Status post right hip surgery 04/14/2023 4. End-stage renal disease on hemodialysis 5. Diabetes mellitus 6. Hypertension 7. Anemia 8. Left extra-axial lesion suggestive of meningioma, stable on head CT scan performed on 04/16/2023 9. Bilateral large calcified plaque in the internal carotid arteries bilaterally measuring less than 50% stenosis Plan: 1. Recommend starting the patient on a medication for hyperlipidemia (i.e. Lipitor, Zocor, or Crestor) if not already started 2. Recommend low-dose aspirin 81 mg p.o. every morning when safe for the patient to start aspirin following her right hip surgery for stroke prophylaxis 3. Recommend obtaining fasting lipid profile if not already performed 4. Agree with administering fluids for hypotension Consult Attestations Medical Necessity Statement: The patient was evaluated by neurology for code stroke initiated on 04/16/2023 Coding Level of Care Code 17375 Diagnoses TIA (transient ischemic attack) G45.9 Carotid stenosis I65.29 Hypotension I95.9 Time Spent (min) 30
[2023-04-16 01:25] LABS: Hematocrit 19.3 % (37.0-47.0); Hemoglobin 5.8 g/dL (11.5-15.3)
[2023-04-16 01:41] LABS: Alanine Aminotransferase 8 U/L (0-33); Albumin Level 3.1 g/dL (3.5-5.2); Alkaline Phosphatase 140 U/L (35-105); Aspartate Amino Transferase 9 U/L (0-32); Blood Urea Nitrogen 13 mg/dL (8-23); Calcium 8.5 mg/dL (8.5-10.5); Carbon Dioxide 27 mmol/L (22-29); Chloride 92 mmol/L (98-107); Globulin 2.7 g/dL (1.3-4.6); Glucose 197 mg/dL (65-115); Osmolality Calculated 274 mOsm/kg (285-295); Sodium 129 mmol/L (136-145); Total Bilirubin 0.4 mg/dL (0.15-1.2); Total Protein 5.8 g/dL (6.6-8.7)
[2023-04-16] MEDS: levothyroxine 200 mcg Tablet PO (05:10)
[2023-04-16] MEDS: tamsulosin 0.4 mg Capsule PO (05:10)
[2023-04-16] MEDS: acetaminophen 325 mg Tablet 650 MG PO (05:10)
[2023-04-16] MEDS: chlorhexidine gluconate 0.12% UDC 15 mL 30 ML MUCOUS MEM ×4 (08:35→22:07)
[2023-04-16] MEDS: enoxaparin 30 mg/0.3 mL Syringe SUBCUT (08:35)
[2023-04-16] MEDS: ferrous gluconate 324 mg Tablet PO ×2 (08:35→17:30)
[2023-04-16] MEDS: calcium carb-vit d 600mg/400unit 1 Tablet 1 EACH PO ×2 (08:36→17:30)
[2023-04-16] MEDS: iron polysaccharide complex 150 mg Capsule PO ×2 (08:36→17:30)
[2023-04-16] MEDS: multivitamin therapeutic Tablet 1 TAB PO (08:36)
[2023-04-16] MEDS: docusate sodium 100 mg Capsule PO ×2 (08:36→17:30)
[2023-04-16] MEDS: mupirocin oint 22 gm 1 APPLIC NASAL ×2 (08:36→17:31)
[2023-04-16] MEDS: pantoprazole DR 40 mg Tablet PO (08:36)
[2023-04-16] MEDS: sennosides-docusate Tablet 2 TAB PO ×2 (08:36→17:30)
[2023-04-16] MEDS: acetaminophen 500 mg Tablet 1000 MG PO ×2 (10:45→17:31)
[2023-04-16] MEDS: lidocaine-prilocaine cream 5 gm TOPICAL (10:45)
--- NOTE | 2023-04-16 10:52 | PC.SOCIAL ---
IMM UPDATED IMM initialed and dated, copy given to patient and copy placed in chart.
[2023-04-16 10:57] LABS: Hemoglobin 7.5 g/dL (11.5-15.3)
--- NOTE | 2023-04-16 12:16 | PM.PN ---
Subjective Subjective: Patient seen and evaluated at noon. Patient had a stroke alert overnight called and was evaluated by neurology. Suspect possible TIA given lower pressures at this point in time patient does not appear to have any deficits. She is able to hold a conversation and talk with me with family member at bedside at lunchtime today. She did have low hemoglobin this morning was given a unit of the PRBC per primary team. Patient has no other complaints at this time pain is controlled. Has worked with therapy. Vitals/I&O/Wt Last Vital Signs Temp 98.7 F 04/16/23 11:50 Pulse 64 04/16/23 11:50 Resp 18 04/16/23 11:50 BP 155/60 04/16/23 11:50 Pulse Ox 95 04/16/23 11:50 O2 Del Method Room Air 04/16/23 11:50 O2 Flow Rate 2 04/16/23 04:00 04/15/23 04/16/23 04/16/23 22:59 06:59 14:59 Intake Total 890 / 1370 240 / 1610 240 / 240 Output Total 2800 / 2800 Balance -1910 / -1430 240 / -1190 240 / 240 Weight last 48 hrs Weight 140 lb 8 oz Weight 139 lb 15.896 oz Weight 141 lb 9.6 oz Physical Exam Narrative: Right lower extremity Dressings on right ankle clean dry and intact no evidence of saturation bandages left on in place compartments are soft and compressible normal postoperative swelling and ecchymosis. No evidence of progressive hematoma no worsening in swelling. Patient is able to wiggle toes plantarflex and dorsiflex ankle endorses sensations intact to light touch distally distal pulses are palpabl. Patient has TLSO brace on in place from spine team Urinary Catheter Management: Spears: Cath Placed During This Visit: no Reason for Continuing Indwelling Catheter: Other Data 04/17/23 03:10 04/17/23 03:10 Other Labs: 04/16/2020 3 AM labs hemoglobin in the early a.m. was 5.8 after 1 unit PRBC up to 7.5 A&P Assessment and plan (1) Closed intertrochanteric fracture of right hip: Plan Pain control DVT prophylaxis Postoperative antibiotics Internal medicine on board as primary Ice as needed Weight-bear as tolerated right lower extremity PT/OT Spine surgery on board for compression fractures and patient currently has TLSO brace Change dressings as needed Follow-up with Dr. Brady in 2 weeks upon discharge Case management on board working on discharge planning and placement A.m. labs reviewed 5.8 hemoglobin this a.m. received 1 unit PRBC per primary up to 7.5 At this point in time no further orthopedic surgical intervention required at this time patient's dressings are clean dry and intact examination is stable she has responded well to 1 unit PRBC no further intervention required from orthopedics at this time orthopedic surgery team will sign off patient and follow peripherally if there is any questions pertaining to patient's care or need for reassessment feel free to contact the orthopedic team discharge instructions are in patient's chart as well as discharge pain medication DVT prophylaxis recommend follow-up in 2 weeks. All questions answered. Attestations Medical Necessity Statement*: Ongoing care right intertrochanteric femur fracture Coding Level of Care Code Acute Code for Chg Fwd Diagnoses Closed intertrochanteric fracture of right hip S72.141A Time Spent (min) 35
[2023-04-16] MEDS: HYDROcodone-acetaminophen 7.5-325 mg Tablet 1 TAB PO (12:37)
--- NOTE | 2023-04-16 19:59 | P.PN_ITS ---
Subjective Subjective: States she is doing okay, I am back . Overnight states was saying some things which did not make sense. This seems to have resolved. Denies any such issues in the past. Medications: Reviewed: Yes Vitals/I&O/Wt Last Vital Signs Temp 97.7 F 04/16/23 14:46 Pulse 81 04/16/23 14:46 Resp 18 04/16/23 14:46 BP 130/55 04/16/23 14:46 Pulse Ox 96 04/16/23 14:46 O2 Del Method Room Air 04/16/23 14:46 O2 Flow Rate 2 04/16/23 04:00 04/16/23 04/16/23 04/16/23 06:59 14:59 22:59 Intake Total 240 / 1610 240 / 240 Balance 240 / -1190 240 / 240 Weight last 48 hrs Weight 63.73 kg Weight 63.5 kg Weight 64.229 kg Physical Exam Const: COMMON NORMALS: patient oriented x3 and alert GENERAL APPEARANCE: cooperative ORIENTATION/CONSCIOUSNESS: Yes awake HENMT: COMMON NORMALS: oropharynx normal Neck/C-Spine: COMMON NORMALS: no JVD Resp: COMMON NORMALS: normal respiratory effort and clear to auscultation bilaterally AUSCULTATION: clear to auscultation bilaterally Cardio: COMMON NORMALS: no JVD, regular rhythm, S1 normal heart sound present, S2 normal heart sound present and No murmurs present (Cardio) RHYTHM: regular rhythm HEART SOUNDS: S1 normal heart sound present and S2 normal heart sound present GI: COMMON NORMALS: Normal to inspection, nondistended, normoactive bowel sounds present, Soft to palpation and non-tender PALPATION: Yes Soft to palpation Extremity: COMMON NORMALS: no joint enlargement and no pedal edema OTHER: RLE perfused, mild thigh swelling Neuro: COMMON NORMALS: patient oriented x3 and moves all extremities SEN SORIUM/ORIENTATION: Yes alert Skin: COMMON NORMALS: no rashes or lesions noted GENERAL SKIN EXAM: no rashes or lesions noted Urinary Catheter Management: Spears: Cath Placed During This Visit: no Reason for Continuing Indwelling Catheter: Other Data 04/16/23 10:50 04/16/23 01:10 A&P Assessment and plan (1) Acute anemia: Hemoglobin 5.8, received 1 unit RBC transfusion. Subsequent hemoglobin 7.5. Follow-up blood count requested. Discussed with orthopedics. Suspected acute b lood loss anemia with fracture and surgery. At risk of DVT, on reduced-dose Lovenox due to renal failure. At risk of bleeding. Check Hemoccult. (2) TIA (transient ischemic attack): Possible TIA, versus acute encephalopathy secondary to hypovolemic/hemorrhagic shock. Underwent work-up overnight with CT head, CTA, noted less than 50% carotid stenosis. Neurology assessment and documentation appreciated. Start statin. Low-dose after DVT prophylaxis. Had a lipid profile in February. Add atorvastatin. Additionally requested assessment by MRI (3) Hypotension: Improved. Follow-up blood pressures. Continue to hold amlodipine, carvedilol. Hold tamsulosin as well. Follow vital signs. Follow-up hemoglobin. Hypovolemic/hemorrhagic shock following hemodialysis and with acute anemia. (4) Closed intertrochanteric fracture of right hip: Right hip fracture repair 04/14. Discussed with orthopedics. Acute anemia as above. Received transfusion. Follow-up level. Platelets 204. Leukocytosis resolved, 8.4. Recheck blood counts. PT. Discharge planning. Discussed with case management. Pain control as needed. Monitor vital signs. Plan Vertebral compression fracture: Old compression fractures noted on MRI, as well as new compression fractures. Weight T5 and T7, minimal deformity approximately 1% with no retropulsion, new T12 anterior wedging since 07/26/2021. T12 compression fracture 20%. Suspicious but indeterminate for fracture involving superior endplate of T10 and T11. No definite bone marrow edema. On recent CT 04/13/2023 suspicious findings for fracture especially T11. Will need follow-up regarding pathologic fractures. [facility]ospine documentation reviewed, consideration of TLSO brace. Consideration of kyphoplasty. She is choosing conservative management. Follow-up in 1-2 weeks in office. Prior left hip fracture and repair ESRD: HD on 04/15, nursing note noted hypotensive during HD, received albumin. Chest x-ray noted in ER with probable mild chronic recurrent interstitial edema similar to findings back in February. No pulmonary consolidation. Received IV fluids started in ER overnight. Discussed with her, stopped, and given a dose of Lasix with underlying ESRD with risk of pulmonary edema and respiratory failure. Follow-up chest x-ray. Monitor oxygenation. Moderate mitral regurgitation: Follow-up with cardiology. Fall: UA not suggestive of UTI. PT assessment. HTN: Blood pressure elevated initially, currently soft. Hold antihypertensives for now. Hypothyroidism DM2: Sliding scale insulin. Monitor Accu-Checks. Attestations Medical Necessity Statement*: Continue admission for assessment management after altered mental status, possible TIA, hypovolemic/hemorrhagic shock, acute anemia, Diagnoses Acute anemia D64.9 TIA (transient ischemic attack) G45.9 Hypotension I95.9 Closed intertrochanteric fracture of right hip S72.141U
[2023-04-16 21:26] LABS: Hemoglobin 6.6 g/dL (11.5-15.3)
[2023-04-16] MEDS: ropinirole 1 mg Tablet PO (22:07)
[2023-04-16] MEDS: atorvastatin 40 mg Tablet PO (22:07)
[2023-04-16] MEDS: amitriptyline 25 mg Tablet 100 MG PO (22:07)
[2023-04-17] VITALS (8 sets, daily range): BP systolic 123–178; BP diastolic 56–133; PULSE 71–82; RESP 16–20; TEMP 36.6–37.2; O2SAT 92–97; BMI 24.8
[2023-04-17 04:09] LABS: Basophils % 0.3 %; Eosinophils # 0.3 10^3/uL (0.0-0.8); Eosinophils % 4.3 %; Hematocrit 23.3 % (37.0-47.0); Hemoglobin 7.1 g/dL (11.5-15.3); Lymphocytes # 0.8 10^3/uL (0.8-4.8); Lymphocytes % 11.6 %; Mean Corpuscular HGB Conc 30.5 g/dL (30.0-36.0); Mean Corpuscular Hemoglobin 27.8 pg (28.0-34.0); Mean Corpuscular Volume 91.4 fl (81-99); Mean Platelet Volume 11.2 fL (7.4-10.4); Monocytes # 0.7 10^3/uL (0.2-0.9); Monocytes % 10.2 %; Neutrophils # 4.92 10^3/uL (1.8-7.7); Nucleated Red Blood Cells % 0 %; Platelet Count 229 10^3/cmm (130-400); Red Blood Count 2.55 10^6/uL (4.1-5.3); Red Cell Distribution Width 17.4 % (12.1-15.1); White Blood Count 6.7 10^3/uL (4.0-10.0)
[2023-04-17 04:34] LABS: Anion Gap 14.3 (5-19); Blood Urea Nitrogen 24 mg/dL (8-23); Calcium 9.1 mg/dL (8.5-10.5); Carbon Dioxide 27 mmol/L (22-29); Chloride 93 mmol/L (98-107); Glucose 134 mg/dL (65-115); Osmolality Calculated 276 mOsm/kg (285-295); Potassium 4.3 mmol/L (3.5-5.1); Sodium 130 mmol/L (136-145)
[2023-04-17] MEDS: levothyroxine 200 mcg Tablet PO (06:44)
[2023-04-17] MEDS: ferrous gluconate 324 mg Tablet PO ×2 (09:16→17:04)
[2023-04-17] MEDS: chlorhexidine gluconate 0.12% UDC 15 mL 30 ML MUCOUS MEM ×3 (09:16→17:03)
[2023-04-17] MEDS: iron polysaccharide complex 150 mg Capsule PO ×2 (09:16→17:03)
[2023-04-17] MEDS: enoxaparin 30 mg/0.3 mL Syringe SUBCUT (09:16)
[2023-04-17] MEDS: multivitamin therapeutic Tablet 1 TAB PO (09:17)
[2023-04-17] MEDS: pantoprazole DR 40 mg Tablet PO (09:17)
[2023-04-17] MEDS: sennosides-docusate Tablet 2 TAB PO ×2 (09:17→17:03)
[2023-04-17] MEDS: calcium carb-vit d 600mg/400unit 1 Tablet 1 EACH PO ×2 (09:17→17:03)
[2023-04-17] MEDS: mupirocin oint 22 gm 1 APPLIC NASAL (09:17)
[2023-04-17] MEDS: docusate sodium 100 mg Capsule PO ×2 (09:17→17:03)
[2023-04-17] MEDS: HYDROcodone-acetaminophen 7.5-325 mg Tablet 1 TAB PO (09:31)
--- NOTE | 2023-04-17 10:24 | PC.CHAP ---
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 [] Patient/Family/Request visit [] Outpatient visit [] Follow-up visit [] Physician referral [] Code/Alert [x] Routine visit [] Staff referral [] Actively dying [] Patient sleeping [x] Family support [] [] Out of room [] Palliative care [] [] Receiving care in room [] Pre-surgical visit [] Trauma [] Long length of stay [] ICU visit [] Other: Relational/Emotional Strength [x] Patient feels connected with others/family/visitors/staff [] Distress [] Loneliness/isolation [] Abandonment Spirituality of Patient [x] Person of Dede [x] Attends Nondenominational of their Dede [] Believes in Prayer [] Reads Bible or Sabianism materials [] There are Spiritual issues to be addressed Flight Communications Officer Interventions [x] Prayer [x] Active listening [] Non-anxious presence [] Spiritual/emotional support [] Crisis/trauma care [] Spiritual counseling [] Bereavement support [] Provided bereavement packet [] Provided Bible/devotional materials [] Provided toy/stuffed animal, coloring book to patient or family member [] Provided Communion [] Anointing/[place] [] Salvation [x] Completed spiritual assessment [] Other: Impact on Illness or Injury [] Angry [] Fearful [] Anxious [] Often cries [] Exhaustion [] Unable to work [] Unable to attend anabaptist [] Unable to walk/stand [] Unable to read [] Unable to drive [] Unable to eat/drink [] Unable to sleep [] Unable to be with family [] Patient intubated [] Other: Summary Time spent with patient 1`0 min
[2023-04-17] MEDS: acetaminophen 500 mg Tablet 1000 MG PO (11:07)
[2023-04-17] MEDS: ropinirole 0.25 mg Tablet 0.5 MG PO (11:07)
[2023-04-17] MEDS: heparin, porcine 1,000 unit/mL INJ 10 mL 1000 UNIT IV (11:09)
--- NOTE | 2023-04-17 13:01 | P.DS_ITS ---
Discharge Providers Date of Admission: 04/13/23 16:40 Date of Discharge: April 17, 2023 Attending Provider at Admission: Hung Gonsalez Attending Provider at Discharge: Cristino Lim MD Consults: Orthopedics Nephrology Neurology Primary Care Provider: Evelia Mendez Diagnoses at Discharge Discharge Diagnosis (1) Acute anemia: Status: Acute (2) TIA (transient ischemic attack): Status: Acute (3) Hypotension: Status: Acute (4) Closed intertrochanteric fracture of right hip: Status: Acute Reason for Visit Reason for Visit: rt hip pain Hospital Course Hospital Course María Saab is a 72-year-old female with a past medical history significant for cerebellar stroke syndrome, end stage renal disease on dialysis, hypertension, hyperlipidemia, hypothyroidism, mitral regurgitation, and type 2 diabetes mellitus who presented from [facility] facility after recovering from left hip surgery with right hip pain following mechanical fall. Patient found to have intertrochanteric fracture of the right hip. Orthopedic surgery consulted and followed. Patient underwent right femur trochanteric nail. Nephrology consulted and followed for end stage renal disease and dialysis management. Post-operative course was complicated by altered mental status c onsistent with cerebral hypoperfusion due to acute blood loss anemia. Code stroke was called. Patient evaluated by neurology. Head imaging was negative for acute findings. Mentation returned to baseline with transfusion. Patient discharged back to [facility] facility in stable condition. Physical Exam Narrative: General: Patient is awake. Alert. Pleasant. Head: Normocephalic. Atraumatic. EOM intact. Neck: No JVD. Cardiovascular: RRR. No gallops. No murmurs. Lungs: Clear to auscultation, no use of accessory muscles, no crackles or wheezes. Skin: No jaundice. No rashes. Abdomen: Soft. Not distended. Normal bowel sounds. Extremities: No cyanosis or clubbing. Musculoskeletal: Normal muscular development. Neurological: No myoclonus. Moves all 4 extremities. Urinary Catheter Management: Spears: Cath Placed During This Visit: no Reason for Continuing Indwelling Catheter: Other Discharge Data Studies Completed and Pending Completed Studies During Hospitalization Category Date Time Status CT head wo con* [id number] Stat Cat Scan 04/16/23 00:[address] lumbar spine wo con* [id number] Urgent Cat Scan 04/13/23 19:[address] thoracic spin wo con* [id number] Urgent Cat Scan 04/13/23 19:46 Completed CTA head neck [CT angio headneck* [id number]] Stat Cat Scan 04/16/23 00:20 Completed XR chest 1V portable [id number] Routine Exams 04/15/23 06:00 Completed XR chest 1V portable [id number] Stat Exams 04/13/23 14:14 Completed XR femur RT min 2V* [id number] Stat Exams 04/13/23 14:28 Completed XR hip LT 2-3V wo/w pel* [id number] Stat Exams 04/13/23 14:28 Completed XR hip RT 2-3V wo/w pel* [id number] Routine Exams 04/14/23 12:39 Completed XR hip RT 2-3V wo/w pel* [id number] Stat Exams 04/13/23 13:58 Completed XR knee RT 3V* [id number] Stat Exams 04/13/23 14:28 Completed MR lumbar spine wo con* [id number] Routine MRI 04/15/23 09:30 Completed MR thoracic spin wo con* [id number] Routine MRI 04/15/23 09:30 Completed Pending at discharge Category Date Time Status Leukocyte Reduced RBC Routine Lab 04/16/23 01:05 Results Occult Blood Stool [Immunochemical Fecal OCB] Routine Lab 04/16/23 20:22 Uncollected Type and Screen Routine Lab 04/16/23 01:05 Results MR head wo con* [id number] Routine MRI 04/17/23 13:38 Ordered Radiology Impressions Femur X-Ray 04/13/23 14:28 IMPRESSION: Fracture through the distal femoral neck. Knee X-Ray 04/13/23 14:28 IMPRESSION: No acute findings. Lumbar Spine CT 04/13/23 19:46 IMPRESSION: 1. Acute superior L2 mild endplate depression fracture, and opposing L3-L4 endplate depression fractures. 2. Degenerative disc and joint disease with multilevel moderate spinal and foraminal stenosis. COMMENTS: Consistent with the [employer]'s Incidental Findings Committee white paper (J Am Ramon Radiol 2018): Any incidental renal lesion less than 1 cm or classified as too small to characterize, or any incidental cystic renal lesion characterized as simple-appearing, is likely benign. No follow-up imaging is recommended for these lesions per consensus recommendations based on imaging criteria. Thoracic Spine CT 04/13/23 19:46 IMPRESSION: 1. Superior T5 age-indeterminate but possibly recent endplate depression fracture. 2. Age-indeterminate superior T5 mild endplate depression deformity. Hip/Pelvis X-Ray 04/14/23 12:39 IMPRESSION: There is good alignment of the right hip hardware with postsurgical changes present. No dislocation is appreciated. Chest X-Ray 04/15/23 06:00 IMPRESSION: Stable appearance of the chest, without acute airspace or pleural disease. Lumbar Spine MRI 04/15/23 09:30 IMPRESSION: 1. Grade 1 anterolisthesis of L4 by 4 mm. No change. 2. New mild acute compression deformity L2, 10%. 3. Prior L1 compression fracture is stable. 4. Mild central and subarticular recess stenosis at L3-4, RIGHT greater than LEFT. Encroachment upon the traversing RIGHT L4 nerve root. 5. Mild central and bilateral subarticular recess stenosis L4-5 with progression of encroachment upon the traversing L5 nerve roots. 6. Mild central and bilateral subarticular recess stenosis and RIGHT foraminal stenosis at L2-3. Thoracic Spine MRI 04/15/23 09:30 IMPRESSION: 1. Remote stable compression fractures at T8 and T9 since 07/26/2021. 2. New compression fractures involving the superior endplates of T5 and T7, minimal deformity of approximately 10% with no retropulsion. New since 07/26/2021. 3. New T12 anterior wedging since 07/26/2021. T12 compression fracture 20%. 4. No significant central or foraminal stenosis. 5. Suspicious but indeterminate for occult fractures involving the superior endplate of T10 and T11. No definite marrow edema. On the recent CT of 04/13/2023 there were suspicious findings for fracture especially at T11. Head CT 04/16/23 00:20 IMPRESSION: 1. Negative for acute intracranial pathology. 2. No change in intracranial mass; suspect benign meningioma. ASSESSMENT: ASPECTS (Ericka Stroke Program Early CT Score) is 10. Head/Neck CTA 04/16/23 00:20 IMPRESSION: Negative for acute intracranial large arterial vessel occlusion. IMPRESSION: 1. Less than 50% carotid artery stenosis. 2. Negative for vascular occlusion in the neck. REFERENCES: NASCET CRITERIA. The degree of stenosis in the cervical segment of the internal carotid artery is based on NASCET criteria. Normal is no stenosis. Mild is less than 50% stenosis. Moderate is 50-69% stenosis. Severe is 70% to 99% stenosis. Total occlusion is no detectable patent lumen. Laboratory Results WBC 6.7 10^3/uL (4.0-10.0) 04/17/23 03:10 RBC 2.55 10^6/uL (4.1-5.3) L 04/17/23 03:10 Hgb 7.1 g/dL (11.5-15.3) L 04/17/23 03:10 Hct 23.3 % (37.0-47.0) L 04/17/23 03:10 MCV 91.4 fl (81-99) 04/17/23 03:10 MCH 27.8 pg (28.0-34.0) L 04/17/23 03:10 MCHC 30.5 g/dL (30.0-36.0) 04/17/23 03:10 RDW 17.4 % (12.1-15.1) H 04/17/23 03:10 Plt Count 229 10^3/cmm (130-400) 04/17/23 03:10 MPV 11.2 fL (7.4-10.4) H 04/17/23 03:10 Neut % (Auto) 73.0 % 04/17/23 03:10 Lymph % (Auto) 11.6 % 04/17/23 03:10 [place] % (Auto) 10.2 % 04/17/23 03:10 Eos % (Auto) 4.3 % 04/17/23 03:10 Baso % (Auto) 0.3 % 04/17/23 03:10 Neut # (Auto) 4.92 10^3/uL (1.8-7.7) 04/17/23 03:10 Lymph # (Auto) 0.8 10^3/uL (0.8-4.8) 04/17/23 03:10 [place] # (Auto) 0.7 10^3/uL (0.2-0.9) 04/17/23 03:10 Eos # (Auto) 0.3 10^3/uL (0.0-0.8) 04/17/23 03:10 Baso # (Auto) 0.0 10^3/uL (0.0-0.1) 04/17/23 03:10 Nucleated RBC % (auto) 0 % 04/17/23 03:10 Nucleated RBCs # 0.0 /100WBC 04/17/23 03:10 PT 14.60 SECONDS (12.1-14.9) 04/13/23 16:21 INR 1.11 (0.8-1.2) 04/13/23 16:21 APTT 33.1 SECONDS (23.9-36.7) 04/13/23 16:21 Sodium 130 mmol/L (136-145) L 04/17/23 03:10 Potassium 4.3 mmol/L (3.5-5.1) 04/17/23 03:10 Chloride 93 mmol/L (98-107) L 04/17/23 03:10 Carbon Dioxide 27 mmol/L (22-29) 04/17/23 03:10 Anion Gap 14.3 (5-19) 04/17/23 03:10 BUN 24 mg/dL (8-23) H 04/17/23 03:10 Creatinine 3.6 mg/dL (0.5-0.9) H 04/17/23 03:10 GFR Calculation Not Reportable 04/17/23 03:10 Glucose 134 mg/dL (65-115) H 04/17/23 03:10 POC Glucose 240 mg/dL (70-110) H 04/16/23 00:06 Calculated Osmolality 276 mOsm/kg (285-295) L 04/17/23 03:10 Calcium 9.1 mg/dL (8.5-10.5) 04/17/23 03:10 Total Bilirubin 0.4 mg/dL (0.15-1.2) 04/16/23 01:10 AST 9 U/L (0-32) 04/16/23 01:10 ALT 8 U/L (0-33) 04/16/23 01:10 Alkaline Phosphatase 140 U/L (35-105) H 04/16/23 01:10 Total Protein 5.8 g/dL (6.6-8.7) L 04/16/23 01:10 Albumin 3.1 g/dL (3.5-5.2) L 04/16/23 01:10 Globulin 2.7 g/dL (1.3-4.6) 04/16/23 01:10 Urine Color Yellow (Yellow) 04/13/23 17:05 Urine Appearance Clear (CLEAR) 04/13/23 17:05 Urine pH 9 (5-7) H 04/13/23 17:05 Ur Specific [place] 1.020 (1.005-1.030) 04/13/23 17:05 Urine Protein 3+ (Negative) H 04/13/23 17:05 Urine Glucose (UA) 1+ (Normal) H 04/13/23 17:05 Urine Ketones 1+ (Negative) H 04/13/23 17:05 Urine Blood Trace (Negative) H 04/13/23 17:05 Urine Nitrate Negative (Negative) 04/13/23 17:05 Urine Bilirubin Neg (Negative) 04/13/23 17:05 Prot Sulfosalicylic Acd Positive (Negative) 04/13/23 17:05 Urine Urobilinogen Norm mg/dL (Negative) 04/13/23 17:05 Ur Leukocyte Esterase Negative (Negative) 04/13/23 17:05 Urine RBC 5-10 /hpf (0-2) H 04/13/23 17:05 Urine WBC 0-4 /hpf (0-5) H 04/13/23 17:05 Ur Squamous Epith Cells None /hpf (0-5) 04/13/23 17:05 Amorphous Sediment Not Reportable 04/13/23 17:05 Urine Bacteria Trace /hpf (NONE) 04/13/23 17:05 Hep Bs Antigen Non-reactive (Nonreactive) 04/13/23 16:21 Hep Bs Antibody > 1000.0 (11.5-1000) H 04/13/23 16:21 Hep B Core Total Ab Non-reactive (Nonreactive) 04/13/23 16:21 Blood Type A Positive 04/16/23 01:05 Rho(D) Type Positive 04/16/23 01:05 Antibody Screen Negative 04/16/23 01:05 Crossmatch See Detail 04/16/23 01:05 Procedures Performed Right femur trochanteric nail Vitals Last Vital Signs Temp 98.2 F 04/17/23 08:00 Pulse 77 04/17/23 08:19 Resp 18 04/17/23 08:00 BP 160/82 06/09/23 08:00 Pulse Ox 93 04/17/23 08:19 O2 Del Method Room Air 04/17/23 08:19 O2 Flow Rate 2 04/16/23 20:00 Discharge Plan Discharge Patient Disposition: Xfer SNF Condition: Stable Prescriptions: New Lovenox 30 mg/0.3 mL syringe 30 mg SUBCUT DAILY 35 Days Qty: 10.5 0RF hydrocodone-acetaminophen 5-325 mg tablet 1 tab PO Q6H PRN (Reason: pain) 7 Days Qty: 28 0RF ondansetron 4 mg tablet,disintegrating 4 mg PO DAILY 5 Days Qty: 5 0RF calcium carbonate-vitamin D3 600 mg-10 mcg (400 unit) Tablet 1 ea PO BID 30 Days Qty: 60 0RF Adult Aspirin Regimen 81 mg tablet,delayed release (DR/EC) 81 mg PO DAILY Qty: 90 0RF Continued amitriptyline 100 mg tablet 100 mg PO BEDTIME (DME) FreeStyle Anita 2 [place] Misc See Rx Instructions .Route Qty: 1 0RF Rx Instructions: check blood sugar (DME) FreeStyle Anita 2 Sensor Kit See Rx Instructions .Route Qty: 3 3RF Rx Instructions: check blood sugar tamsulosin 0.4 mg capsule 0.4 mg PO QAM carvedilol 12.5 mg tablet See Rx Instructions .ROUTE .COMPLEX Rx Instructions: 12.5 mg orally three times a week as directed the morning of dialysis on , KVNG, SAT, SUN ropinirole 1 mg tablet 1 mg PO BEDTIME lidocaine-prilocaine 2.5-2.5 % cream See Rx Instructions .ROUTE .COMPLEX Rx Instructions: APPLY SMALL AMOUNT TO ACCESS SITE (AVF) 1 HOUR BEFORE DIALYSIS. COVER WITH OCCLUSIVE DRESSING (SARAN WRAP) ropinirole 0.5 mg tablet See Rx Instructions .ROUTE .COMPLEX Rx Instructions: 0.5 mg orally before dialysis on mon,wed,fri RenaPlex-D 800 mcg-12.5 mg -2,000 unit tablet 1 tab PO DAILY levothyroxine 200 mcg tablet 200 mcg PO QAM cyclobenzaprine 10 mg Tablet 5 mg PO TID Qty: 30 0RF ferrous gluconate 324 mg (37.5 mg iron) Tablet 324 mg PO BIDWM Qty: 60 0RF sucralfate 1 gram tablet 1 g PO BID 56 Days Qty: 112 0RF tramadol 50 mg Tablet 50 mg PO Q8H PRN (Reason: Moderate Pain) Qty: 30 0RF sennosides-docusate sodium [Stool Softener-Laxative] 8.6-50 mg Tablet 2 tab PO BID Qty: 120 0RF pantoprazole 40 mg Tablet,Delayed Release (Dr/Ec) 40 mg PO DAILY Qty: 30 0RF hydrocodone-acetaminophen 7.5-325 mg tablet 1 tab PO Q6H PRN (Reason: severe pain (scale score 7-10)) Qty: 20 0RF Norvasc 5 mg Tablet 5 mg PO DAILY Milk of Magnesia 400 mg/5 mL Suspension 15 ml PO DAILY PRN (Reason: Constipation) Dulcolax (bisacodyl) 10 mg Suppository 10 mg [place] DAILY PRN (Reason: Constipation) Fleet Enema 19-7 gram/118 mL Enema 118 ml [place] DAILY PRN (Reason: Constipation) Trulicity 0.75 mg/0.5 mL pen injector 0.75 mg SUBCUT Q7D Rx Instructions: ON THURSDAY PreserVision AREDS 2 Plus MV 200 mcg-15 mcg- 5 mg-1 mg Capsule 1 cap PO DAILY Discharge Orders: Discharge Order (Routine); Ordered 04/17/23 Ordered By: Cristino Lim Referrals: [facility] [Outside] Evelia Mendez PA [Primary Care Provider] - Ras Brady DO [Physician] - 04/30/23 8:30 am (Please arrive 15 minutes early ) Discharge Diet: Advance as tolerated Discharge Activity: Increase activity as tolerated and As per PT/OT instructions Patient Instructions: Opioid Safety, Post Anesthesia Care Activity Restrictions/Additional Instructions: Orthopedic discharge instructions: Patient may be weightbearing as tolerated to the right lower extremity Leave Silverlon dressings on in place for a total of 7 days may change them as needed if becomes over 50% saturated. After 7 days remove Silverlon dressings and a regular island dressing can be applied. Keep incisions clean dry and intact no baths or soaks Elevation and ice as needed for pain and swelling PT/OT Encourage hip and knee range of motion Take pain medication as prescribed Take antinausea medication as needed Supplement with Citracal vitamin D for bone health and healing Take Lovenox (blood thinner) as prescribed for blood clot prevention Follow-up with Dr. Brady in the office in 2 weeks Contact the office for any questions or concerns Plan of Treatment: 1. Take medications as prescribed. 2. Weight bearing per orthopedics. 3. Continue dialysis. 4. Follow up in clinic. Discharge Attestations Time Spent in Discharge Care*: greater than 30 min Status at Discharge: Cognitive status at discharge: cognitively intact , Behavioral status at discharge: cooperative , Quality Metrics Clinical Quality Measures [ No reported AMI, CVA or VTE this stay] Coding Level of Care Code Acute Code for Chg Fwd Diagnoses Acute anemia D64.9 TIA (transient ischemic attack) G45.9 Hypotension I95.9 Closed intertrochanteric fracture of right hip S72.141A
--- NOTE | 2023-04-17 14:57 | P.PN_ITS ---
Subjective Subjective: s/p HD Medications: Reviewed: Yes Vitals/I&O/Wt Last Vital Signs Temp 98.2 F 04/17/23 08:00 Pulse 77 04/17/23 08:19 Resp 18 04/17/23 08:00 BP 160/82 04/17/23 08:00 Pulse Ox 93 04/17/23 08:19 O2 Del Method Room Air 04/17/23 08:19 O2 Flow Rate 2 04/16/23 20:00 04/16/23 04/17/23 04/17/23 22:59 06:59 14:59 Intake Total 200 / 440 120 / 560 360 / 360 Balance 200 / 440 120 / 560 360 / 360 Weight last 48 hrs Weight 63.73 kg Weight 63.73 kg Weight 63.5 kg Physical Exam Narrative: awake , alert, no acute distress HEENT Regular rate and rhythm per report Lungs clear per report no edema Urinary Catheter Management: Spears: Cath Placed During This Visit: no Reason for Continuing Indwelling Catheter: Other Data 04/17/23 03:10 04/17/23 03:10 A&P Assessment and plan (1) End stage renal disease: Plan 1. End-stage renal disease: Last dialysis Thursday on MWF schedule as outpatient, HD today 2. History of hypertension: Blood pressure stable 3. Anemia hemoglobin 7.9 , multifactorial , sec to blood loss , ESRD . will give procrit, monitor 4. Right hip fracture: s/p repair Attestations Medical Necessity Statement*: PER MEDICINE Coding Level of Care Code Acute Code for [facility] Diagnoses End stage renal disease N18.6
--- NOTE | 2023-04-17 16:03 | PC.OT ---
OT tx attempted at 11:15. Pt out of room in dialysis. Tx to be attempted again at later time if possible.
[2023-04-17 16:41] LABS: SARS Covid-2 Antigen negative (Negative)
== END 2023-04-17 17:30 | disposition skilled nursing facility (03) | DRG 480 ==
LOC: ER 15:18 → MEDSURG 16:40
PROVIDERS: Hospitalist; Student in an Organized Health Care Education/Training Program; Admitting Provider Internal Medicine; Emergency Provider Family Medicine; PCP Physician Assistant; Visit Provider Internal Medicine
PROC: 0QH636Z Insertion of Intramedullary Internal Fixation Device into Right Upper Femur, Percutaneous Approach (ICD-10-PCS; CPT 27245; principal; 2023-04-14 15:00)
DX: S72.141A Displaced intertrochanteric fracture of right femur, initial encounter for closed fracture (principal); N18.6 End stage renal disease; S22.050A Wedge compression fracture of T5-T6 vertebra, initial encounter for closed fracture; S22.060A Wedge compression fracture of T7-T8 vertebra, initial encounter for closed fracture; I12.0 Hypertensive chronic kidney disease with stage 5 chronic kidney disease or end stage renal disease; D62 Acute posthemorrhagic anemia; G45.9 Transient cerebral ischemic attack, unspecified; W01.0XXA Fall on same level from slipping, tripping and stumbling without subsequent striking against object, initial encounter; Y92.129 Unspecified place in nursing home as the place of occurrence of the external cause; D63.1 Anemia in chronic kidney disease; Z86.73 Personal history of transient ischemic attack (TIA), and cerebral infarction without residual deficits; E11.22 Type 2 diabetes mellitus with diabetic chronic kidney disease; Z99.2 Dependence on renal dialysis; E78.5 Hyperlipidemia, unspecified; E03.9 Hypothyroidism, unspecified; I34.0 Nonrheumatic mitral (valve) insufficiency; Z79.891 Long term (current) use of opiate analgesic; Z79.85 Long-term (current) use of injectable non-insulin antidiabetic drugs; Z85.3 Personal history of malignant neoplasm of breast; I95.9 Hypotension, unspecified; D42.9 Neoplasm of uncertain behavior of meninges, unspecified; M48.061 Spinal stenosis, lumbar region without neurogenic claudication; M81.0 Age-related osteoporosis without current pathological fracture
CPT/HCPCS: 12345; 36415; 36416; 36430; 36591; 70450; 70496; 70498; 71045; 72128; 72131; 72146; 72148; 73502; 73552; 73562; 76000; 80048; 80053; 81001; 82962; 85014; 85018; 85025; 85610; 85730; 86705; 86706; 86850; 86900; 86920; 87340; 87426; 90935; 93005; 96365; 96367; 96372; 96375; 96376; 97161; 97167; 97530; 97760; 99285; C1713; J0131; J0885; J1170; J1644; J1650; J1885; J1940; J2250; J2270; J2405; J2704; J2765; J3010; J3490; P9016; Q3014; Q9967

== ENCOUNTER 2023-04-23 20:47 | Emergency (ER) | payer MEDICARE, OTHER, SELFPAY ==
[2023-04-23 20:51] VITALS: PULSE 85; RESP 20; TEMP 36.8; O2SAT 98
[2023-04-23 20:58] VITALS: BP 190/68
--- NOTE | 2023-04-23 21:04 | ED_ITS ---
HPI - Extremity Problem General: Chief complaint: Extremity Injury, Lower Stated complaint: HIP PAIN Time Seen by Provider: 04/23/23 20:51 History of Present Illness: Patient arrived to the ER via EMS from the senior living. Patient was there having physical therapy today and had increasing right hip pain. Patient approximately 1 week out from right hip surgery. Patient took the hydrocodone, tramadol, Tylenol at the senior living with no relief. Review of Systems General: Reports: 10 or more systems reviewed and unremarkable except in HPI and below PFSH ED PFSH: Medical History Abdominal bloating Cataract Cerebellar stroke syndrome Chronic kidney disease (CKD) Closed fracture of left proximal humerus Compression fracture of L4 vertebra Compression fracture of thoracic vertebra Hemodialysis patient History of peritoneal dialysis HTN (hypertension) Hx of breast cancer Hydronephrosis Hyperlipidemia Hypothyroidism Incomplete bladder emptying Kidney stones Lower GI bleed requiring more than 4 units of blood in 24 hours, ICU, or surgery (07/2022) Microcytic anemia Obstructive pyelonephritis Pleural effusion on right SOB (shortness of breath) Spondylolisthesis at L4-L5 level Type 2 diabetes mellitus Ureteral obstruction, right HX OF RIGHT URETEROSCOPY WITH STENT PLACEMENT Surgical History H/O knee surgery H/O skin graft H/O tubal ligation History of cholecystectomy History of kidney surgery History of lumpectomy of left breast History of surgery Right-sided pleurodesis and Pleurx catheter placement History of surgery on arm Hx of cataract surgery Hx of tonsillectomy S/P dialysis catheter insertion Peritoneal dialysis catheter placement x3 according to patient, revisions had to be performed in [facility] at an outside facility Hemodialysis catheter placement S/P hemodialysis catheter insertion Right IJ: Removed Family History Mother Stroke Father Stroke Social History Smoking and tobacco status: never smoked Alcohol intake: never Substance/Drug Use: never Lives independently: Yes Household members: spouse Marital status: Current occupational status: employed Do you think of yourself as: Straight/Heterosexual Current gender identity: Female Physical Exam Const: COMMON NORMALS: no acute distress, average body habitus, patient oriented x3, no limitations, healthy appearing, alert and well nourished HENMT: COMMON NORMALS: normocephalic, atraumatic, hearing grossly normal bilaterally, external ears normal, Normal external nose present and moist oral mucous membranes HEAD & SCALP: normocephalic and atraumatic NOSE: Normal external nose present EXTERNAL EAR: Yes external ears normal Neck/C-Spine: COMMON NORMALS: full ROM, no lymphadenopathy, supple, no meningeal signs, no JVD and Thyroid normal THYROID: Thyroid normal Chest: COMMONS NORMALS: normal inspection of the chest Resp: COMMON NORMALS: normal respiratory effort, No retractions, No use of accessory muscles and clear to auscultation bilaterally AUSCULTATION: clear to auscultation bilaterally Cardio: COMMON NORMALS: no JVD, regular rate, regular rhythm, S1 normal heart sound present, S2 normal heart sound present, No gallops present (Cardio), No clicks present (Cardio), No murmurs present (Cardio) and No rub (Cardio) RATE: regular rate RHYTHM: regular rhythm HEART SOUNDS: S1 normal heart sound present and S2 normal heart sound present GI: COMMON NORMALS: Normal to inspection, nondistended, normoactive bowel sounds present, Soft to palpation, non-tender, No hepatosplenomegaly present and no masses PALPATION: Yes Soft to palpation and Yes No hepatosplenomegaly present : COMMON NORMALS: Yes no CVA tenderness BLADDER/KIDNEY EXAM: Yes no CVA tenderness Back/Pelvis: COMMON NORMALS: no CVA tenderness Neuro: COMMON NORMALS: patient oriented x3 SENSORIUM/ORIENTATION: Yes alert MENINGEAL SIGNS: Yes no meningeal signs Course Vital Signs: Vital signs: Vital Signs Temperature 98.2 F 04/23/23 20:51 Pulse Rate 78 04/23/23 22:41 Respiratory Rate 16 04/23/23 23:05 Blood Pressure 185/62 04/23/23 23:05 Pulse Oximetry 94 04/23/23 23:05 Oxygen Delivery Me thod Room Air 04/23/23 20:51 MDM - Extremity (Nontraumatic) Medical Decision Making Patient presents to the ER with complaints of right hip pain secondary to physical therapy on a hip repair. Patient already tried everything she has at home and [id number] with no relief. Patient was given 4 mg morphine IV which did not seem to relieve much pain. Patient was then given 0.5 mg Dilaudid IV. Patient be discharged home to continue with her current home pain medicine. Differential Diagnosis Unlikely herpes zoster, gout, cellulitis, superficial thrombophlebitis, deep venous thrombosis of upper extremity, lower extremity edema or deep vein thrombosis of lower extremity Discharge Plan Discharge Patient Disposition: Home Clinical Impression: Acute pain of right hip Condition: Stable Prescriptions: No Action amitriptyline 100 mg tablet 100 mg PO BEDTIME (DME) FreeStyle Anita 2 [place] Misc See Rx Instructions .Route Qty: 1 0RF Rx Instructions: check blood sugar (DME) FreeStyle Anita 2 Sensor Kit See Rx Instructions .Route Qty: 3 3RF Rx Instructions: check blood sugar tamsulosin 0.4 mg capsule 0.4 mg PO QAM carvedilol 12.5 mg tablet See Rx Instructions .ROUTE .COMPLEX Rx Instructions: 12.5 mg orally three times a week as directed the morning of dialysis on , KVNG, SAT, SUN ropinirole 1 mg tablet 1 mg PO BEDTIME lidocaine-prilocaine 2.5-2.5 % cream See Rx Instructions .ROUTE .COMPLEX Rx Instructions: APPLY SMALL AMOUNT TO ACCESS SITE (AVF) 1 HOUR BEFORE DIALYSIS. COVER WITH OCCLUSIVE DRESSING (SARAN WRAP) ropinirole 0.5 mg tablet See Rx Instructions .ROUTE .COMPLEX Rx Instructions: 0.5 mg orally before dialysis on mon,wed,fri RenaPlex-D 800 mcg-12.5 mg -2,000 unit tablet 1 tab PO DAILY levothyroxine 200 mcg tablet 200 mcg PO QAM cyclobenzaprine 10 mg Tablet 5 mg PO TID Qty: 30 0RF ferrous gluconate 324 mg (37.5 mg iron) Tablet 324 mg PO BIDWM Qty: 60 0RF sucralfate 1 gram tablet 1 g PO BID 56 Days Qty: 112 0RF tramadol 50 mg Tablet 50 mg PO Q8H PRN (Reason: Moderate Pain) Qty: 30 0RF sennosides-docusate sodium [Stool Softener-Laxative] 8.6-50 mg Tablet 2 tab PO BID Qty: 120 0RF pantoprazole 40 mg Tablet,Delayed Release (Dr/Ec) 40 mg PO DAILY Qty: 30 0RF hydrocodone-acetaminophen 7.5-325 mg tablet 1 tab PO Q6H PRN (Reason: severe pain (scale score 7-10)) Qty: 20 0RF Norvasc 5 mg Tablet 5 mg PO DAILY Milk of Magnesia 400 mg/5 mL Suspension 15 ml PO DAILY PRN (Reason: Constipation) Dulcolax (bisacodyl) 10 mg Suppository 10 mg [place] DAILY PRN (Reason: Constipation) Fleet Enema 19-7 gram/118 mL Enema 118 ml [place] DAILY PRN (Reason: Constipation) Trulicity 0.75 mg/0.5 mL pen injector 0.75 mg SUBCUT Q7D Rx Instructions: ON THURSDAY PreserVision AREDS 2 Plus MV 200 mcg-15 mcg- 5 mg-1 mg Capsule 1 cap PO DAILY Lovenox 30 mg/0.3 mL syringe 30 mg SUBCUT DAILY 35 Days Qty: 10.5 0RF calcium carbonate-vitamin D3 600 mg-10 mcg (400 unit) Tablet 1 ea PO BID 30 Days Qty: 60 0RF Adult Aspirin Regimen 81 mg tablet,delayed release (DR/EC) 81 mg PO DAILY Qty: 90 0RF Discharge Orders: Discharge ED (Routine); Ordered 04/23/23 Ordered By: Ranjan Olmedo Referrals: Evelia Mendez PA [Primary Care Provider] - 1 week Patient Instructions: Opioid Safety, Pain Management Activity Restrictions/Additional Instructions: Please continue your current home regimen of pain medicine as needed as directed and your physical therapy. Please follow-up with your PCP in approximately 1 week and or your orthopedic surgeon as needed for pain management. Coding Level of Care Code ED Superintendent Operating for Supriya Byers
[2023-04-23 21:56] VITALS: RESP 16; O2SAT 99
[2023-04-23] MEDS: morphine 4 mg/mL SDV 1 mL IVP (21:56)
[2023-04-23 21:58] VITALS: BP 193/70; PULSE 80; RESP 16; O2SAT 99
[2023-04-23 22:41] VITALS: BP 195/139; PULSE 78; RESP 16; O2SAT 98
[2023-04-23 23:05] VITALS: BP 185/62; RESP 16; O2SAT 94
[2023-04-23] MEDS: HYDROmorphone 1 mg/mL INJ 1 mL 0.5 MG IVP (23:24)
[2023-04-24 00:38] VITALS: RESP 16; O2SAT 98
[2023-04-24] MEDS: HYDROmorphone 1 mg/mL INJ 1 mL 0.5 MG IVP (00:38)
[2023-04-24 00:45] VITALS: BP 145/72; PULSE 76; RESP 16; O2SAT 94
[2023-04-24 01:59] VITALS: BP 145/72; PULSE 76; RESP 16; TEMP 36.8; O2SAT 94
== END 2023-04-24 02:01 | disposition home or self-care (01) ==
PROVIDERS: Emergency Provider Emergency Medicine; PCP Physician Assistant
DX: M25.551 Pain in right hip (principal); Z79.85 Long-term (current) use of injectable non-insulin antidiabetic drugs; Z79.82 Long term (current) use of aspirin; I12.9 Hypertensive chronic kidney disease with stage 1 through stage 4 chronic kidney disease, or unspecified chronic kidney disease; E11.22 Type 2 diabetes mellitus with diabetic chronic kidney disease; N18.9 Chronic kidney disease, unspecified; Z99.2 Dependence on renal dialysis; Z85.3 Personal history of malignant neoplasm of breast; E78.5 Hyperlipidemia, unspecified
CPT/HCPCS: 96374; 96375; 96376; 99284; J1170; J2270

== ENCOUNTER 2023-04-25 15:34 | Emergency (ER) | payer MEDICARE, OTHER, SELFPAY ==
[2023-04-25 15:37] VITALS: BP 155/60; PULSE 76; RESP 14; TEMP 36.9; O2SAT 97
--- NOTE | 2023-04-25 15:59 | XRR_ITS ---
PROCEDURE INFORMATION: Exam: XR Pelvis Exam date and time: 04/25/2023 4:14 PM Age: 72 years old Clinical indication: Hip pain; Right hip; Prior surgery; Surgery date: 1-6 months; Surgery type: Bilateral hip surgeries TECHNIQUE: Imaging protocol: Radiologic exam of the pelvis. Views: 1 or 2 view. COMPARISON: CR XR hip RT 2-3V wo/w pel* [id number] 04/14/2023 11:50 AM FINDINGS: Bones/joints: Stable changes consistent with a prior right and left femoral fracture repairs. No evidence for loosening of the surgical hardware. Acute nondisplaced intertrochanteric fracture of the right femur and subacute/chronic intertrochanteric fracture of the left femur are stable. Stable diffuse osteopenia of the visualized bones. Degenerative changes in the spine, sacroiliac joints, and hips. Soft tissues: Resolution of right soft tissue emphysema. Skin shanell over the right hip. Gastrointestinal tract: Increased fecal content in the visualized colon. Organs: Increased soft tissue density in the pelvis, possibly due to a distended bladder. Vasculature: Atherosclerotic changes in the visualized arteries. XR/XR pelvis 1-2V* [id number] IMPRESSION: 1. Acute nondisplaced intertrochanteric fracture of the right femur and subacute/chronic intertrochanteric fracture of the left femur are stable. 2. Increased soft tissue density in the pelvis, possibly due to a distended bladder. Recommend clinical correlation. 3. Stable changes consistent with a prior right and left femoral fracture repairs. No evidence for loosening of the surgical hardware. 4. Resolution of right soft tissue emphysema. 5. Increased fecal content in the visualized colon. 6. Incidental/nonacute findings are listed in the report.
[2023-04-25] MEDS: morphine 4 mg/mL SDV 1 mL IM (16:08)
--- NOTE | 2023-04-25 16:11 | W.ED.EXTPRO ---
HPI - Extremity Problem General: Chief complaint: Extremity Problem,Nontraumatic Stated complaint: HOLLY HIP PAIN Time Seen by Provider: 04/25/23 15:47 History of Present Illness: 72-year-old female brought to the emergency room by EMS from a local rehab facility due to right knee and right hip pain. Family and patient reveals that patient recently had hip replacement done and currently at a rehab center. Within the past few days he noticed increased pain along the right hip and some swelling of the knee. Patient described the pain as sharp/aching sensation with severity of 7 out of 10 especially with hip movement and any movement. Denies any recent fall or injury. No numbness or tingling of the lower extremity. Associated symptoms: Deny fever(s) Review of Systems General: Reports: 10 or more systems reviewed and unremarkable except in HPI and below Const: Denies: fever(s), chills, body aches, change in appetite, change in weight, fatigue or malaise Musc: Reports: extremity pain, extremity swelling, joint pain and joint swelling; Denies: back pain, joint warmth or joint stiffness PFSH ED PFSH: Medical History Abdominal bloating Cataract Cerebellar stroke syndrome Chronic kidney disease (CKD) Closed fracture of left proximal humerus Compression fracture of L4 vertebra Compression fracture of thoracic vertebra Hemodialysis patient History of peritoneal dialysis HTN (hypertension) Hx of breast cancer Hydronephrosis Hyperlipidemia Hypothyroidism Incomplete bladder emptying Kidney stones Lower GI bleed requiring more than 4 units of blood in 24 hours, ICU, or surgery (07/2022) Microcytic anemia Obstructive pyelonephritis Pleural effusion on right SOB (shortness of breath) Spondylolisthesis at L4-L5 level Type 2 diabetes mellitus Ureteral obstruction, right HX OF RIGHT URETEROSCOPY WITH STENT PLACEMENT Surgical History H/O knee surgery H/O skin graft H/O tubal ligation History of cholecystectomy History of kidney surgery History of lumpectomy of left breast History of surgery Right-sided pleurodesis and Pleurx catheter placement History of surgery on arm Hx of cataract surgery Hx of tonsillectomy S/P dialysis catheter insertion Peritoneal dialysis catheter placement x3 according to patient, revisions had to be performed in [facility] at an outside facility Hemodialysis catheter placement S/P hemodialysis catheter insertion Right IJ: Removed Family History Mother Stroke Father Stroke Social History Smoking and tobacco status: never smoked Alcohol intake: never Substance/Drug Use: never Lives independently: Yes Household members: spouse Marital status: Current occupational status: employed Do you think of yourself as: Straight/Heterosexual Current gender identity: Female Physical Exam Const: COMMON NORMALS: no acute distress, average body habitus, patient oriented x3, no limitations, healthy appearing, alert and well nourished Neck/C-Spine: COMMON NORMALS: full ROM, no lymphadenopathy, supple, no meningeal signs, no JVD, Thyroid normal and No carotid bruits THYROID: Thyroid normal Chest: COMMONS NORMALS: normal inspection of the chest, normal palpation of entire chest wall, normal inspection of the breasts and normal palpation of the breasts Breast/axilla inspection: Yes normal inspection of the breasts BREAST/AXILLA PALPATION: Yes normal palpation of the breasts Cardio: COMMON NORMALS: no JVD Extremity: RIGHT LOWER EXTREMITY: Yes hip joint (Right hip joint with pain upon full range of motion no deformities) and Yes knee joint (Right knee with some swelling and tenderness upon palpation on the anterior) Right knee: Yes palpation (Upon palpation on the transport of the knee) and Yes neurovascular exam Neuro: COMMON NORMALS: patient oriented x3 SENSORIUM/ORIENTATION: Yes alert MENINGEAL SIGNS: Yes no meningeal signs Course Vital Signs: Vital signs: Vital Signs Temperature 98.4 F 04/25/23 15:37 Pulse Rate 74 04/25/23 17:37 Respiratory Rate 13 04/25/23 17:37 Blood Pressure 142/56 04/25/23 17:37 Pulse Oximetry 91 04/25/23 17:37 Oxygen Delivery Me thod Room Air 04/25/23 15:37 MDM - Extremity (Nontraumatic) Medical Decision Making Discussed patient with family, reviewed past medical history and record, yoseph patient with orthopedic on-call. I obtained x-rays and review x-rays Medical Records I reviewed the patient's medical records. Lab Data Radiology Impressions Pelvis X-Ray 04/25/23 15:59 IMPRESSION: 1. Acute nondisplaced intertrochanteric fracture of the right femur and subacute/chronic intertrochanteric fracture of the left femur are stable. 2. Increased soft tissue density in the pelvis, possibly due to a distended bladder. Recommend clinical correlation. 3. Stable changes consistent with a prior right and left femoral fracture repairs. No evidence for loosening of the surgical hardware. 4. Resolution of right soft tissue emphysema. 5. Increased fecal content in the visualized colon. 6. Incidental/nonacute findings are listed in the report. Knee X-Ray 04/25/23 16:32 IMPRESSION: 1. No acute fracture of the right knee. Followup imaging recommended in 7-14 days if clinical concern for fracture persists. 2. Stable moderate to severe tricompartment degenerative changes at the right knee. 3. Moderate right knee joint effusion. 4. Mild soft tissue swelling anterior and lateral to the right knee. 5. Incidental/nonacute findings are listed in the report. Discharge Plan Discharge Patient Disposition: Home Clinical Impression: Osteoarthritis of knees, bilateral, Hip sprain Condition: Stable Prescriptions: No Action amitriptyline 100 mg tablet 100 mg PO BEDTIME (DME) FreeStyle Anita 2 [place] Misc See Rx Instructions .Route Qty: 1 0RF Rx Instructions: check blood sugar (DME) FreeStyle Anita 2 Sensor Kit See Rx Instructions .Route Qty: 3 3RF Rx Instructions: check blood sugar tamsulosin 0.4 mg capsule 0.4 mg PO QAM carvedilol 12.5 mg tablet See Rx Instructions .ROUTE .COMPLEX Rx Instructions: 12.5 mg orally three times a week as directed the morning of dialysis on , THU, THU, SUN ropinirole 1 mg tablet 1 mg PO BEDTIME lidocaine-prilocaine 2.5-2.5 % cream See Rx Instructions .ROUTE .COMPLEX Rx Instructions: APPLY SMALL AMOUNT TO ACCESS SITE (AVF) 1 HOUR BEFORE DIALYSIS. COVER WITH OCCLUSIVE DRESSING (SARAN WRAP) ropinirole 0.5 mg tablet See Rx Instructions .ROUTE .COMPLEX Rx Instructions: 0.5 mg orally before dialysis on mon,wed,fri RenaPlex-D 800 mcg-12.5 mg -2,000 unit tablet 1 tab PO DAILY levothyroxine 200 mcg tablet 200 mcg PO QAM cyclobenzaprine 10 mg Tablet 5 mg PO TID Qty: 30 0RF ferrous gluconate 324 mg (37.5 mg iron) Tablet 324 mg PO BIDWM Qty: 60 0RF sucralfate 1 gram tablet 1 g PO BID 56 Days Qty: 112 0RF tramadol 50 mg Tablet 50 mg PO Q8H PRN (Reason: Moderate Pain) Qty: 30 0RF sennosides-docusate sodium [Stool Softener-Laxative] 8.6-50 mg Tablet 2 tab PO BID Qty: 120 0RF pantoprazole 40 mg Tablet,Delayed Release (Dr/Ec) 40 mg PO DAILY Qty: 30 0RF hydrocodone-acetaminophen 7.5-325 mg tablet 1 tab PO Q6H PRN (Reason: severe pain (scale score 7-10)) Qty: 20 0RF Norvasc 5 mg Tablet 5 mg PO DAILY Milk of Magnesia 400 mg/5 mL Suspension 15 ml PO DAILY PRN (Reason: Constipation) Dulcolax (bisacodyl) 10 mg Suppository 10 mg [place] DAILY PRN (Reason: Constipation) Fleet Enema 19-7 gram/118 mL Enema 118 ml [place] DAILY PRN (Reason: Constipation) Trulicity 0.75 mg/0.5 mL pen injector 0.75 mg SUBCUT Q7D Rx Instructions: ON THURSDAY PreserVision AREDS 2 Plus MV 200 mcg-15 mcg- 5 mg-1 mg Capsule 1 cap PO DAILY Lovenox 30 mg/0.3 mL syringe 30 mg SUBCUT DAILY 35 Days Qty: 10.5 0RF calcium carbonate-vitamin D3 600 mg-10 mcg (400 unit) Tablet 1 ea PO BID 30 Days Qty: 60 0RF Adult Aspirin Regimen 81 mg tablet,delayed release (DR/EC) 81 mg PO DAILY Qty: 90 0RF Discharge Orders: Discharge ED (Routine); Ordered 04/25/23 Ordered By: Jackelyn Houston Referrals: Evelia Mendez PA [Primary Care Provider] - Discharge Diet: Advance as tolerated Discharge Activity: Resume usual activity Patient Instructions: Opioid Safety, Pain Management Coding Level of Care Code ED Chicken Hatchery Helper for Supriya Byers
--- NOTE | 2023-04-25 16:32 | XRR_ITS ---
PROCEDURE INFORMATION: Exam: XR Right Knee Exam date and time: 04/25/2023 5:01 PM Age: 72 years old Clinical indication: Pain; Knee; Right TECHNIQUE: Imaging protocol: Radiologic exam of the right knee. Views: 3 views. COMPARISON: CR XR knee RT 3V* [id number] 04/13/2023 2:39 PM FINDINGS: Bones/joints: Stable moderate to severe tricompartment degenerative changes at the right knee. Bones are diffusely osteopenic. Moderate right knee joint effusion. Small calcified enthesophyte at the quadriceps tendon insertion. Soft tissues: Mild soft tissue swelling anterior and lateral to the right knee. No radiopaque foreign body. Vasculature: Atherosclerotic changes in the visualized arteries. XR/XR knee RT 3V* [id number] IMPRESSION: 1. No acute fracture of the right knee. Followup imaging recommended in 7-14 days if clinical concern for fracture persists. 2. Stable moderate to severe tricompartment degenerative changes at the right knee. 3. Moderate right knee joint effusion. 4. Mild soft tissue swelling anterior and lateral to the right knee. 5. Incidental/nonacute findings are listed in the report.
[2023-04-25] MEDS: HYDROmorphone 1 mg/mL INJ 1 mL IM (16:55)
[2023-04-25 17:37] VITALS: BP 142/56; PULSE 74; RESP 13; O2SAT 91
== END 2023-04-25 18:12 | disposition home or self-care (01) ==
PROVIDERS: Emergency Provider Family Medicine; PCP Physician Assistant
DX: M17.0 Bilateral primary osteoarthritis of knee (principal); S73.101A Unspecified sprain of right hip, initial encounter; Z79.85 Long-term (current) use of injectable non-insulin antidiabetic drugs; Z79.82 Long term (current) use of aspirin; I12.9 Hypertensive chronic kidney disease with stage 1 through stage 4 chronic kidney disease, or unspecified chronic kidney disease; E11.22 Type 2 diabetes mellitus with diabetic chronic kidney disease; N18.9 Chronic kidney disease, unspecified; Z99.2 Dependence on renal dialysis; Z85.3 Personal history of malignant neoplasm of breast; E78.5 Hyperlipidemia, unspecified; X58.XXXA Exposure to other specified factors, initial encounter; Z96.649 Presence of unspecified artificial hip joint
CPT/HCPCS: 72170; 73562; 96372; 99285; J1170; J2270

== ENCOUNTER → 2023-04-30 09:08 | Outpatient (BNVA) | payer OTHER, SELFPAY | PROVIDERS: PCP Physician Assistant; Visit Provider Student in an Organized Health Care Education/Training Program | DX: Z98.890 Other specified postprocedural states (principal); S72.142A Displaced intertrochanteric fracture of left femur, initial encounter for closed fracture; S72.141A Displaced intertrochanteric fracture of right femur, initial encounter for closed fracture; X58.XXXA Exposure to other specified factors, initial encounter | CPT/HCPCS: 73502; 99024 ==

== ENCOUNTER → 2023-05-01 12:57 | Day surgery (SDC) | payer MEDICARE, OTHER, SELFPAY ==
[2023-05-01 13:05] VITALS: BP 163/63; PULSE 77; RESP 18; TEMP 37; O2SAT 100
[2023-05-01 13:35] LABS: Hematocrit 22.9 % (37.0-47.0); Hemoglobin 6.7 g/dL (11.5-15.3)
[2023-05-01] MEDS: HYDROcodone-acetaminophen 7.5-325 mg Tablet 1 TAB PO (14:38)
[2023-05-01 14:53] VITALS: BP 162/63; PULSE 76; RESP 14; TEMP 36.5; O2SAT 100
[2023-05-01] MEDS: sodium chloride 0.9% 100 mL Bag 50 ML IV (15:05)
[2023-05-01 15:15] VITALS: BP 146/58; PULSE 78; RESP 18; TEMP 36.7; O2SAT 99
[2023-05-01 15:30] VITALS: BP 151/67; PULSE 75; RESP 18; TEMP 36.6; O2SAT 100
[2023-05-01 16:30] VITALS: BP 146/95; PULSE 79; RESP 16; TEMP 36.7; O2SAT 100
[2023-05-01 17:00] VITALS: PULSE 84; RESP 16; TEMP 36.7; O2SAT 100
== END ==
PROVIDERS: PCP Physician Assistant; Visit Provider Internal Medicine Nephrology
DX: D64.9 Anemia, unspecified (principal); Z79.899 Other long term (current) drug therapy
CPT/HCPCS: 36430; 36591; 85014; 85018; 86850; 86900; 86920; P9016

== ENCOUNTER → 2023-06-11 13:01 | Outpatient (BNVA) | payer MEDICARE, OTHER, SELFPAY | PROVIDERS: PCP Physician Assistant; Visit Provider Student in an Organized Health Care Education/Training Program | DX: S72.141A Displaced intertrochanteric fracture of right femur, initial encounter for closed fracture (principal); S72.142A Displaced intertrochanteric fracture of left femur, initial encounter for closed fracture; X58.XXXA Exposure to other specified factors, initial encounter | CPT/HCPCS: 73502; 99024 ==

== ENCOUNTER → 2023-06-29 13:26 | Outpatient (BNVA) | payer MEDICARE, OTHER, SELFPAY | PROVIDERS: PCP Physician Assistant; Visit Provider Internal Medicine | DX: E03.9 Hypothyroidism, unspecified; N18.6 End stage renal disease; E16.0 Drug-induced hypoglycemia without coma; T38.3X5A Adverse effect of insulin and oral hypoglycemic [antidiabetic] drugs, initial encounter; E11.319 Type 2 diabetes mellitus with unspecified diabetic retinopathy without macular edema; E11.40 Type 2 diabetes mellitus with diabetic neuropathy, unspecified; E11.22 Type 2 diabetes mellitus with diabetic chronic kidney disease; E11.649 Type 2 diabetes mellitus with hypoglycemia without coma; S22.000A Wedge compression fracture of unspecified thoracic vertebra, initial encounter for closed fracture; X58.XXXA Exposure to other specified factors, initial encounter; Z79.890 Hormone replacement therapy; Z79.4 Long term (current) use of insulin | CPT/HCPCS: 36415; 80053; 80061; 83036; 84439; 84443; 99214 ==

== ENCOUNTER 2023-07-07 12:53 | Outpatient (CLI) | payer MEDICARE, OTHER, SELFPAY ==
--- NOTE | 2023-07-07 13:30 | XR_ITS ---
WS: [id number] SCREENING DEXA SCAN [facility] CLINICAL INFORMATION: Compression fracture of thoracic vertebra COMPARISON: None. FINDINGS: The L1-L4 bone mineral density measures 1.110 g/cm2. This corresponds to a T score score of -0.6 and Z score of 1.4. Left forearm bone mineral density measures 0.778. This corresponds to a T score of -1.1 and Z score o f 1.1. IMPRESSION: Normal bone mineralization lumbar spine. Osteopenia LEFT forearm.
== END 2023-07-07 12:54 | disposition home or self-care (01) ==
PROVIDERS: PCP Physician Assistant; Visit Provider Internal Medicine
DX: Z13.820 Encounter for screening for osteoporosis (principal); M85.832 Other specified disorders of bone density and structure, left forearm; S22.000A Wedge compression fracture of unspecified thoracic vertebra, initial encounter for closed fracture; X58.XXXA Exposure to other specified factors, initial encounter
CPT/HCPCS: 77080

== ENCOUNTER 2023-08-29 09:20 | Emergency (ER) | payer MEDICARE, OTHER, SELFPAY ==
[2023-08-29 09:27] VITALS: BP 187/93; PULSE 86; RESP 22; TEMP 36.7; O2SAT 97; BMI 22.1
--- NOTE | 2023-08-29 09:47 | CTR_ITS ---
PROCEDURE INFORMATION: Exam: CT Pelvis Without Contrast; Skeletal Exam date and time: 08/29/2023 10:16 AM Age: 73 years old Clinical indication: Injury or trauma; Fall; Blunt trauma (contusions or hematomas); Bilateral; Pelvic region and sacrum and coccyx; Prior surgery; Surgery date: 6+ months; Surgery type: Jovan hips; Additional info: [facility] for new coccyx fracture with a h/o old fracture TECHNIQUE: Imaging protocol: Computed tomography of the pelvis without contrast. Exam focused on the skeleton. 601image(s) are provided. Radiation optimization: All CT scans at this facility use at least one of these dose optimization techniques: automated exposure control; mA and/or kV adjustment per patient size (includes targeted exams where dose is matched to clinical indication); or iterative reconstruction. REPORTING DATA: Count of CT and Cardiac NM exams in prior 12 months: This patient has received 9 known CTs and 0 known cardiac nuclear medicine studies in the 12 months prior to the current study. COMPARISON: 1. CT abdomen pelvis wo con [id number] 07/19/2022 7:[address] lumbar spine wo con* [id number] 08/29/2023 10:12 AM 3. MR lumbar spine wo con* [id number] 04/15/2023 11:[address] lumbar spine wo con* [id number] 04/13/2023 8:30 PM 5. CR (PELVIS, ) 04/25/2023 4:14 PM COMPARISON MORE: CT abdomen pelvis wo con [id number] 07/19/2022 7:39 AM RADIATION DOSE METRICS: Total DLP (mGy-cm): 276.93 FINDINGS: Urinary bladder: The bladder is fluid-filled and slightly distended with unremarkable overall contours. Intraperitoneal space: No pelvic level free air or fluid collections are currently appreciated. The bowel gas pattern appears nonobstructive.Some aspects of the colon are undistended. This may also be peristaltic related.There is abundant stool present limiting mucosal detail evaluation. There is some chronic perinephric stranding and calcific nonobstructive appearance of the kidneys. Bones/joints: There is similar overall femoral intramedullary almita hardware appearance with history of previous fractures and residual nonunion. No prior ct comparison is currently available. There is some slight soft tissue swelling and joint fluid about the hips. There are intertrochanteric fractures demonstrated corresponding to the previous descriptions with some residual nonunion. No interval dislocation is appreciated. There is some chronic appearing degeneration about the pubic symphysis. There is some cortical thickening and sclerosis indicative of subacute healing fracture about the right inferior pubic ramus with lesser changes superiorly. There is some sclerosis indicative of subacute healing fracture of the right iliac bone wing. The lumbar findings correspond with the lumbar description same day. There is similar overall appearance of the left sacral wing cortical disruption indicative of interval fracture. There is some chronic appearing mid and right insufficiency related change. The coccygeal alignment appears maintained overall on the sagittal sequence. There does appear to be some cortical thickening suggestive of injury at the junction with no significant separation. There is some subtle cortical undulation suggestive of previous nondisplaced injury about the pubic symphysis. There is some nondisplaced fracture appearance about the left inferior pubic ramus. Soft tissues: No radiopaque foreign body or subcutaneous emphysema is appreciated. Other findings: There is some motion artifact present. No other significant interval changes are appreciated. CT/CT pelvis wo con [id number] IMPRESSION: There are several acute on chronic fracture related changes present including some interval for example at the left sacral wing as well as the left inferior pubic ramus and sacrococcygeal junction.
--- NOTE | 2023-08-29 09:47 | CTR_ITS ---
PROCEDURE INFORMATION: Exam: CT Lumbar Spine Without Contrast Exam date and time: 08/29/2023 10:12 AM Age: 73 years old Clinical indication: Injury or trauma; Fall; Blunt trauma (contusions or hematomas); Additional info: Fall with pain TECHNIQUE: Imaging protocol: Computed tomography of the lumbar spine without contrast. 408image(s) are provided. Radiation optimization: All CT scans at this facility use at least one of these dose optimization techniques: automated exposure control; mA and/or kV adjustment per patient size (includes targeted exams where dose is matched to clinical indication); or iterative reconstruction. REPORTING DATA: Count of CT and Cardiac NM exams in prior 12 months: This patient has received 9 known CTs and 0 known cardiac nuclear medicine studies in the 12 months prior to the current study. COMPARISON: 1. CT lumbar spine wo con* [id number] 04/13/2023 8:30 PM 2. MR lumbar spine wo con* [id number] 04/15/2023 11:[address] pelvis wo con [id number] 08/29/2023 10:16 AM 4. CR (PELVIS, ) 04/25/2023 4:14 PM RADIATION DOSE METRICS: Total DLP (mGy-cm): 433.82 FINDINGS: Bones/joints: There is slightly decreased bone mineralization overall. There is history of previous femoral fractures with similar overall hardware alignment. There is multilevel facet and ligamentous hypertrophy. There are compression deformities similar in location albeit with some interval progression for example most pronounced at the L2 level with superior and mid predominance. No interval posterior extension or significant retropulsion is currently appreciated. There is also similar compression deformity at the T12 level as well as very subtle superior endplate and inferior irregularity at the L1 level. There is some chronic appearing Schmorl's node or endplate irregularity about the L4 superior endplate as well as the adjacent anterior osteophyte. There is some overall similar paravertebral stranding related changes correspondingly. There is some incongruity suggested at the right iliac medial margin with some sclerosis suggestive of subacute injury. The sacral iliac junctions appear relatively symmetric. There is some incongruity indicative of left sacral ala fracture. There is some very subtle irregularity and could represent some nondisplaced or insufficiency related fracture about the superomedial aspect of the right sacral wing as well as midline albeit overall more pronounced on the left. There appears to be some chronic dorsal disc bulging multilevel overall similar. Discs/Spinal canal/Neural foramina: No hyperdense spinal canal fluid is appreciated. Lungs: There are some subpleural calcific related changes about the right lung base. Pleural spaces: There appears to be a small amount of pleural fluid along with some patchy atelectasis, scarring type appearance overall. Adrenal glands: There is some adrenal hypertrophy similar overall. Extraperitoneal space: There is some subtle presacral stranding more so on the left correspondingly. Vasculature: There are atherosclerotic calcifications similar overall. There is some atherosclerotic ectatic appearance of the aorta as well as dense branch vessel calcifications similar overall. Soft tissues: No radiopaque foreign body or subcutaneous emphysema is appreciated. There is some chronic appearing soft tissue calcifications present. There is some slight subcutaneous edematous stranding. Other findings: There is some motion artifact present. No other significant interval changes are appreciated. CT/CT lumbar spine wo con* [id number] IMPRESSION: There are multiple fractures demonstrated with some interval progression for example including at the L2 vertebral body compression with no significant interval posterior elements or retropulsion currently appreciated. There appears to be some interval sacral wing fracture predominantly on the left as well as some insufficiency type appearance on the right and some cortical irregularity of the right iliac bone suggestive of subacute fracture.
[2023-08-29] MEDS: HYDROcodone-acetaminophen 5-325 mg Tablet 1 TAB PO (09:52)
--- NOTE | 2023-08-29 10:00 | W.ED.FALL ---
HPI - Fall General: Chief Complaint: Fall Stated Complaint: fall Time Seen by Provider: 08/29/23 09:25 History of Present Illness: 73-year-old female presents to the ER with family chief complaint of recent fall from standing in which she struck her lower back as well as tailbone. Patient reports that she did not strike her head she had no loss of consciousness she is on no blood thinning agents patient Dors is a previous history of 2 previous tailbone fractures as well as bilateral hip fractures patient endorses she has been able to ambulate since the injury however it does hurt in the buttocks region. Patient reports she did not take any medications for the pain prior to arrival she reports no other associated symptoms. Associated symptoms-after fall: Denies abdominal pain, chest pain or headache(s) Review of Systems General: Reports: 10 or more systems reviewed and unremarkable except in HPI and below Const: Denies: fever(s), chills, fatigue or malaise Eyes: Denies: change in vision or blurry vision Card: Denies: chest pain or palpitations Resp: Denies: dyspnea or productive cough GI: Denies: abdominal pain, nausea or vomiting : Denies: flank pain Musc: Reports: back pain; Denies: extremity pain or extremity swelling Skin/Breast: Denies: rash or pruritus Neuro: Denies: headache(s) Psych: Denies: anxiety or depression Dave/Lymph: Denies: easy bleeding All/Imm: Denies: urticaria, throat swelling or facial swelling PFSH ED PFSH: Medical History Abdominal bloating Cataract Cerebellar stroke syndrome Chronic kidney disease (CKD) Closed fracture of left proximal humerus Compression fracture of L4 vertebra Compression fracture of thoracic vertebra Hemodialysis patient History of peritoneal dialysis HTN (hypertension) Hx of breast cancer Hydronephrosis Hyperlipidemia Hypothyroidism Incomplete bladder emptying Kidney stones Lower GI bleed requiring more than 4 units of blood in 24 hours, ICU, or surgery (07/2022) Microcytic anemia Obstructive pyelonephritis Pleural effusion on right SOB (shortness of breath) Spondylolisthesis at L4-L5 level Type 2 diabetes mellitus Ureteral obstruction, right HX OF RIGHT URETEROSCOPY WITH STENT PLACEMENT Surgical History H/O knee surgery H/O skin graft H/O tubal ligation History of cholecystectomy History of kidney surgery History of lumpectomy of left breast History of surgery Right-sided pleurodesis and Pleurx catheter placement History of surgery on arm Hx of cataract surgery Hx of tonsillectomy S/P dialysis catheter insertion Peritoneal dialysis catheter placement x3 according to patient, revisions had to be performed in [facility] at an outside facility Hemodialysis catheter placement S/P hemodialysis catheter insertion Right IJ: Removed Family History Mother Stroke Father Stroke Social History Smoking and tobacco/nicotine status: never used tobacco/nicotine Alcohol intake: never Substance/Drug Use: never Lives independently: Yes Household members: spouse Marital status: Current occupational status: employed Do you think of yourself as: Straight/Heterosexual Current gender identity: Female Physical Exam Const: COMMON NORMALS: patient oriented x3 and healthy appearing; apparent distress (Patient appears to be in mild distress due to pain and discomfort) HENMT: COMMON NORMALS: normocephalic and atraumatic HEAD & SCALP: normocephalic and atraumatic Eye: COMMON NORMALS: Equal, round and reactive pupils present and EOMs intact bilaterally PUPIL: Yes Equal, round and reactive pupils present Neck/C-Spine: COMMON NORMALS: full ROM, supple and no JVD Lymph: LYMPHATIC: no lymphadenopathy noted Chest: COMMONS NORMALS: normal inspection of the chest and normal palpation of entire chest wall Resp: COMMON NORMALS: normal respiratory effort, No retractions and clear to auscultation bilaterally EFFORT & INSPECTION: Yes able to speak in complete sentences and Yes symmetric chest movement AUSCULTATION: clear to auscultation bilaterally Cardio: COMMON NORMALS: no JVD, regular rate and regular rhythm RATE: regular rate RHYTHM: regular rhythm GI: COMMON NORMALS: Normal to inspection, nondistended, normoactive bowel sounds present, Soft to palpation and non-tender INSPECTION: Yes normal to inspection PALPATION: Yes Soft to palpation Back/Pelvis: OTHER: moderate pain appreciatedat approx L4-L5 region into the gluteal cleft region with no obvious step-offs, ecchymosis or crepitus noted. Neurovascularly intact distally moderate pain with movement of elevation of both legs no foot drop appreciated Extremity: COMMON NORMALS: normal to inspection and full ROM Neuro: COMMON NORMALS: patient oriented x3, CN's II-XII intact bilaterally, moves all extremities and no focal motor deficits Psych: COMMON NORMALS: mental status grossly normal, Normal thought process present, cooperative and normal affect THOUGHT PROCESS: Normal thought process present Skin: COMMON NORMALS: no rashes or lesions noted GENERAL SKIN EXAM: no rashes or lesions noted Course Vital Signs: Vital signs: Vital Signs Temperature 98.0 F 08/29/23 09:27 Pulse Rate 86 08/29/23 09:27 Respiratory Rate 22 H 08/29/23 09:27 Blood Pressure 187/93 08/29/23 09:27 Pulse Oximetry 97 08/29/23 09:27 MDM - Fall Medical Decision Making Due to pain symptoms and condition CT imaging of the lumbar spine as well as the sacrum and coccyx will be obtained. Patient was placed on hydrocodone for her current pain control. CT imaging revealed a sacral fracture subacute in nature L2 compression fracture with no retropulsion with a questionable iliac fracture as well patient has noted multiple falls in the most recent events including last 3 weeks ago patient is neurologically intact distally manage she was offered a lumbar splint LSO back brace she reports that he has to at home we will be providing the patient additional medication for pain control advised for her to use LSO back brace upon returning home in which patient advised further follow-up with primary care in 2 to 3 days in which advised return the interim if any of her symptoms persist or worse Lab Data Radiology Impressions Lumbar Spine CT 08/29/23 09:47 IMPRESSION: There are multiple fractures demonstrated with some interval progression for example including at the L2 vertebral body compression with no significant interval posterior elements or retropulsion currently appreciated. There appears to be some interval sacral wing fracture predominantly on the left as well as some insufficiency type appearance on the right and some cortical irregularity of the right iliac bone suggestive of subacute fracture. Pelvis CT 08/29/23 09:47 IMPRESSION: There are several acute on chronic fracture related changes present including some interval for example at the left sacral wing as well as the left inferior pubic ramus and sacrococcygeal junction. All radiology interpretation(s) finalized by discharge Discharge Plan Discharge Patient Disposition: Home Clinical Impression: Closed sacral fracture, Closed compression fracture of lumbar vertebra, Fall from standing Condition: Stable Prescriptions: New hydrocodone-acetaminophen 7.5-325 mg tablet 1 tab PO Q6H PRN (Reason: pain) Qty: 20 0RF No Action amitriptyline 100 mg tablet 100 mg PO BEDTIME (DME) FreeStyle Anita 2 Barlow Misc See Rx Instructions .Route Qty: 1 0RF Rx Instructions: check blood sugar (DME) FreeStyle Anita 2 Sensor Kit See Rx Instructions .Route Qty: 3 3RF Rx Instructions: check blood sugar (DME) wheel chair See Rx Instructions .Route .MEDSUPPLY Qty: 1 0RF Rx Instructions: As directed tamsulosin 0.4 mg capsule 0.4 mg PO QAM carvedilol 12.5 mg tablet See Rx Instructions .ROUTE .COMPLEX Rx Instructions: 1.25 mg orally 3 times weekly as directed the morning of dialysis on , , Thu and Sun ropinirole 1 mg tablet 1 mg PO BEDTIME lidocaine-prilocaine 2.5-2.5 % cream See Rx Instructions .ROUTE .COMPLEX Rx Instructions: APPLY SMALL AMOUNT TO ACCESS SITE (AVF) 1 HOUR BEFORE DIALYSIS. COVER WITH OCCLUSIVE DRESSING (SARAN WRAP) ropinirole 0.5 mg tablet See Rx Instructions .ROUTE .COMPLEX Rx Instructions: 0.5 mg orally before dialysis on thu,thu,thu RenaPlex-D 800 mcg-12.5 mg -2,000 unit tablet 1 tab PO QAM tramadol 50 mg Tablet 50 mg PO Q8H PRN (Reason: Moderate Pain) Qty: 30 0RF hydrocodone-acetaminophen 7.5-325 mg tablet 1 tab PO Q6H PRN (Reason: severe pain (scale score 7-10)) Qty: 20 0RF Trulicity 0.75 mg/0.5 mL pen injector 0.75 mg SUBCUT Q7D Rx Instructions: ON THURSDAY PreserVision AREDS 2 Plus MV 200 mcg-15 mcg- 5 mg-1 mg Capsule 1 cap PO QAM amlodipine 10 mg tablet 10 mg PO QAM cyclobenzaprine 5 mg tablet 5 mg PO TID PRN (Reason: Muscle Spasm) levothyroxine 200 mcg tablet 200 mcg PO QAM sucralfate 1 gram tablet 1 g PO BID bumetanide 1 mg tablet See Rx Instructions .ROUTE .COMPLEX Rx Instructions: 1 mg orally daily on non dialysis days Dialyvite 800-Ultra D 0.8-2,000 mg-unit tablet 1 tab PO QAM Discharge Orders: Discharge ED (Routine); Ordered 08/29/23 Ordered By: Rigo Bear Referrals: Evelia Mendez PA [Primary Care Provider] - 1-3 days Discharge Diet: Advance as tolerated Discharge Activity: Increase activity as tolerated Patient Instructions: Sacral Fracture (ED), Thoracolumbar Fracture (ED), Fall Prevention (ED), Opioid Safety, Pain Management Activity Restrictions/Additional Instructions: please further follow-up with your primary care doctor in 2 to 3 days please take medications as prescribed when you get home please place on your lumbar brace that you already have in which please return the interim if any of your symptoms persist or worse Coding Level of Care Code ED Transportation Assistant for Supriya Byers
== END 2023-08-29 11:58 | disposition home or self-care (01) ==
PROVIDERS: Emergency Provider Emergency Medicine; PCP Physician Assistant
DX: S32.10XA Unspecified fracture of sacrum, initial encounter for closed fracture (principal); S32.029A Unspecified fracture of second lumbar vertebra, initial encounter for closed fracture; Z79.85 Long-term (current) use of injectable non-insulin antidiabetic drugs; E11.22 Type 2 diabetes mellitus with diabetic chronic kidney disease; I12.9 Hypertensive chronic kidney disease with stage 1 through stage 4 chronic kidney disease, or unspecified chronic kidney disease; N18.9 Chronic kidney disease, unspecified; Z85.3 Personal history of malignant neoplasm of breast; E78.5 Hyperlipidemia, unspecified; W18.30XA Fall on same level, unspecified, initial encounter
CPT/HCPCS: 72131; 72192; 99284

== ENCOUNTER → 2023-09-15 11:59 | Outpatient (BNVA) | payer MEDICARE, OTHER, SELFPAY | PROVIDERS: PCP Physician Assistant; Visit Provider Internal Medicine | DX: E03.9 Hypothyroidism, unspecified; N18.6 End stage renal disease; E11.319 Type 2 diabetes mellitus with unspecified diabetic retinopathy without macular edema; E11.40 Type 2 diabetes mellitus with diabetic neuropathy, unspecified; E11.649 Type 2 diabetes mellitus with hypoglycemia without coma; E11.22 Type 2 diabetes mellitus with diabetic chronic kidney disease; E16.0 Drug-induced hypoglycemia without coma; T38.3X5A Adverse effect of insulin and oral hypoglycemic [antidiabetic] drugs, initial encounter; X58.XXXA Exposure to other specified factors, initial encounter; Z79.890 Hormone replacement therapy | CPT/HCPCS: 36415; 82306; 84439; 84443; 99214 ==

== ENCOUNTER → 2023-09-24 14:46 | Outpatient (BNVA) | payer MEDICARE, OTHER, SELFPAY | PROVIDERS: PCP Physician Assistant; Visit Provider Student in an Organized Health Care Education/Training Program | DX: S72.141D Displaced intertrochanteric fracture of right femur, subsequent encounter for closed fracture with routine healing; X58.XXXD Exposure to other specified factors, subsequent encounter | CPT/HCPCS: 73502; 99213 ==

== ENCOUNTER → 2023-12-24 11:34 | Outpatient (BNVA) | payer MEDICARE, OTHER, SELFPAY | PROVIDERS: PCP Physician Assistant; Visit Provider Internal Medicine | DX: E03.9 Hypothyroidism, unspecified; N18.6 End stage renal disease; E16.0 Drug-induced hypoglycemia without coma; T38.3X5A Adverse effect of insulin and oral hypoglycemic [antidiabetic] drugs, initial encounter; E11.319 Type 2 diabetes mellitus with unspecified diabetic retinopathy without macular edema; E11.40 Type 2 diabetes mellitus with diabetic neuropathy, unspecified; E11.22 Type 2 diabetes mellitus with diabetic chronic kidney disease; E11.649 Type 2 diabetes mellitus with hypoglycemia without coma; Z79.890 Hormone replacement therapy; Z79.85 Long-term (current) use of injectable non-insulin antidiabetic drugs | CPT/HCPCS: 99214 ==

== ENCOUNTER 2023-12-28 13:08 | Outpatient (CLI) | payer MEDICARE, OTHER, SELFPAY ==
[2023-12-28 14:45] LABS: Alanine Aminotransferase 9 U/L (0-33); Albumin Level 3.8 g/dL (3.5-5.2); Alkaline Phosphatase 84 U/L (35-105); Anion Gap 14.6 (5-19); Aspartate Amino Transferase 11 U/L (0-32); Blood Urea Nitrogen 10 mg/dL (8-23); Calcium 8.7 mg/dL (8.5-10.5); Carbon Dioxide 29 mmol/L (22-29); Chloride 96 mmol/L (98-107); Chol HDL Ratio 2.89 mg/dL (0.0-4.40); Cholesterol 130 mg/dL (0-200); Estmated Average Glucose 148; Free T4 Free Thyroxine 1.68 ng/dL (0.82-1.77); Globulin 3.8 g/dL (1.3-4.6); Glucose 215 mg/dL (65-115); HDL Cholesterol 45 mg/dL (60-100); Hemoglobin A1C 6.8 % (4.0-6.0); LDL Cholesterol Calculated 59 mg/dL (50-129); LDL HDL Ratio 1.31 RATIO (0.00-3.22); Osmolality Calculated 288 mOsm/kg (285-295); Potassium 3.6 mmol/L (3.5-5.1); Sodium 136 mmol/L (136-145); Thyroid Stimulating Hormone 0.58 uIU/mL (0.27-4.20); Total Bilirubin 0.6 mg/dL (0.15-1.2); Total Protein 7.6 g/dL (6.6-8.7); Triglycerides 132 mg/dL (0-150)
== END 2023-12-28 13:09 | disposition home or self-care (01) ==
LOC: LAB 13:09
PROVIDERS: PCP Physician Assistant; Visit Provider Internal Medicine
DX: E03.9 Hypothyroidism, unspecified (principal); N18.6 End stage renal disease; E11.9 Type 2 diabetes mellitus without complications
CPT/HCPCS: 36415; 80053; 80061; 83036; 84439; 84443

== ENCOUNTER 2023-12-30 13:22 | Outpatient (CLI) | payer MEDICARE, OTHER, SELFPAY ==
[2023-12-30 14:07] LABS: Creatinine Urine, Random 22 mg/dL (28-217)
[2023-12-30 14:26] LABS: Microalbum Creatinine Ratio Ur 4364 mg/dL (0-20); Microalbumin Random Urine 96 ug/dL (0-20)
== END 2023-12-30 13:23 | disposition home or self-care (01) ==
LOC: LAB 13:24
PROVIDERS: PCP Physician Assistant; Visit Provider Internal Medicine
DX: E03.9 Hypothyroidism, unspecified (principal); N18.6 End stage renal disease
CPT/HCPCS: 82044

== ENCOUNTER 2024-03-21 12:48 | Outpatient (CLI) | payer MEDICARE, OTHER, SELFPAY ==
[2024-03-21 14:28] LABS: Estmated Average Glucose 171; Hemoglobin A1C 7.6 % (4.0-6.0)
[2024-03-21 14:30] LABS: Alanine Aminotransferase 19 U/L (0-33); Albumin Level 3.9 g/dL (3.5-5.2); Alkaline Phosphatase 89 U/L (35-105); Aspartate Amino Transferase 18 U/L (0-32); Blood Urea Nitrogen 20 mg/dL (8-23); Calcium 9.2 mg/dL (8.5-10.5); Carbon Dioxide 29 mmol/L (22-29); Chloride 92 mmol/L (98-107); Chol HDL Ratio 2.56 mg/dL (0.0-4.40); Cholesterol 133 mg/dL (0-200); Free T4 Free Thyroxine 2.09 ng/dL (0.82-1.77); Globulin 4.1 g/dL (1.3-4.6); Glucose 126 mg/dL (65-115); HDL Cholesterol 52 mg/dL (60-100); LDL Cholesterol Calculated 55 mg/dL (50-129); LDL HDL Ratio 1.06 RATIO (0.00-3.22); Osmolality Calculated 278 mOsm/kg (285-295); Sodium 132 mmol/L (136-145); Thyroid Stimulating Hormone 1.46 uIU/mL (0.27-4.20); Total Bilirubin 0.5 mg/dL (0.15-1.2); Triglycerides 131 mg/dL (0-150)
[2024-03-21 14:37] LABS: Anion Gap 15.1 (5-19); Potassium 4.1 mmol/L (3.5-5.1)
== END 2024-03-21 12:49 | disposition home or self-care (01) ==
LOC: LAB 12:49
PROVIDERS: Internal Medicine; PCP Physician Assistant; Visit Provider Physician Assistant
DX: E03.9 Hypothyroidism, unspecified (principal); N18.6 End stage renal disease; E11.9 Type 2 diabetes mellitus without complications
CPT/HCPCS: 36415; 80053; 80061; 83036; 84439; 84443

== ENCOUNTER 2024-03-22 12:47 | Outpatient (CLI) | payer MEDICARE, OTHER, SELFPAY ==
[2024-03-22 13:25] LABS: Creatinine Urine, Random 23 mg/dL (28-217)
[2024-03-22 13:40] LABS: Microalbum Creatinine Ratio Ur 4652 mg/dL (0-20); Microalbumin Random Urine 107 ug/dL (0-20)
== END 2024-03-22 12:48 | disposition home or self-care (01) ==
LOC: LAB 12:49
PROVIDERS: PCP Physician Assistant; Visit Provider Internal Medicine
DX: E03.9 Hypothyroidism, unspecified (principal); N18.6 End stage renal disease
CPT/HCPCS: 82044

== ENCOUNTER → 2024-03-24 11:13 | Outpatient (BNVA) | payer MEDICARE, OTHER, SELFPAY | PROVIDERS: PCP Physician Assistant; Visit Provider Internal Medicine | DX: E03.9 Hypothyroidism, unspecified; N18.6 End stage renal disease; E16.0 Drug-induced hypoglycemia without coma; T38.3X5A Adverse effect of insulin and oral hypoglycemic [antidiabetic] drugs, initial encounter; E11.319 Type 2 diabetes mellitus with unspecified diabetic retinopathy without macular edema; E11.40 Type 2 diabetes mellitus with diabetic neuropathy, unspecified; E11.649 Type 2 diabetes mellitus with hypoglycemia without coma; E11.22 Type 2 diabetes mellitus with diabetic chronic kidney disease; X58.XXXA Exposure to other specified factors, initial encounter | CPT/HCPCS: 99214 ==

== ENCOUNTER → 2024-04-14 15:35 | Outpatient (BNVA) | payer MEDICARE, OTHER, SELFPAY | PROVIDERS: PCP Physician Assistant; Visit Provider Student in an Organized Health Care Education/Training Program | DX: S72.141D Displaced intertrochanteric fracture of right femur, subsequent encounter for closed fracture with routine healing; X58.XXXD Exposure to other specified factors, subsequent encounter | CPT/HCPCS: 73502; 99213 ==

== ENCOUNTER 2024-04-20 14:09 | Oncology outpatient (recurring) (ONCR) | payer MEDICARE, OTHER, SELFPAY ==
[2024-04-20] MEDS: denosumab 60 mg SDV SUBCUT (14:38)
== END 2024-05-08 23:59 | disposition home or self-care (01) ==
PROVIDERS: PCP Physician Assistant; Visit Provider Internal Medicine
DX: S72.092D Other fracture of head and neck of left femur, subsequent encounter for closed fracture with routine healing (principal); X58.XXXD Exposure to other specified factors, subsequent encounter
CPT/HCPCS: 96372; J0897

== ENCOUNTER → 2024-04-21 09:26 | Outpatient (BNVA) | payer MEDICARE, OTHER, SELFPAY | PROVIDERS: PCP Physician Assistant; Visit Provider Podiatrist Foot & Ankle Surgery | DX: B35.1 Tinea unguium (principal); G62.9 Polyneuropathy, unspecified; R60.9 Edema, unspecified; N18.6 End stage renal disease; E11.42 Type 2 diabetes mellitus with diabetic polyneuropathy | CPT/HCPCS: 11721 ==

== ENCOUNTER → 2024-06-23 09:40 | Outpatient (BNVA) | payer MEDICARE, OTHER, SELFPAY | PROVIDERS: PCP Physician Assistant; Visit Provider Podiatrist Foot & Ankle Surgery | DX: B35.1 Tinea unguium (principal); G62.9 Polyneuropathy, unspecified; R60.9 Edema, unspecified; N18.6 End stage renal disease; E11.42 Type 2 diabetes mellitus with diabetic polyneuropathy | CPT/HCPCS: 11721 ==

== ENCOUNTER 2024-06-27 12:42 | Outpatient (CLI) | payer MEDICARE, OTHER, SELFPAY ==
[2024-06-27 13:23] LABS: Estmated Average Glucose 160; Hemoglobin A1C 7.2 % (4.0-6.0)
[2024-06-27 13:26] LABS: Alanine Aminotransferase 11 U/L (0-33); Albumin Level 3.9 g/dL (3.5-5.2); Alkaline Phosphatase 91 U/L (35-105); Aspartate Amino Transferase 12 U/L (0-32); Blood Urea Nitrogen 26 mg/dL (8-23); Calcium 8.6 mg/dL (8.5-10.5); Carbon Dioxide 24 mmol/L (22-29); Chloride 94 mmol/L (98-107); Chol HDL Ratio 2.64 mg/dL (0.0-4.40); Cholesterol 132 mg/dL (0-200); Globulin 3.7 g/dL (1.3-4.6); Glucose 225 mg/dL (65-115); HDL Cholesterol 50 mg/dL (60-100); LDL Cholesterol Calculated 54 mg/dL (50-129); LDL HDL Ratio 1.08 RATIO (0.00-3.22); Osmolality Calculated 286 mOsm/kg (285-295); Sodium 132 mmol/L (136-145); Total Bilirubin 0.6 mg/dL (0.15-1.2); Total Protein 7.6 g/dL (6.6-8.7); Triglycerides 140 mg/dL (0-150)
[2024-06-27 13:50] LABS: Free T4 Free Thyroxine 1.31 ng/dL (0.82-1.77)
== END 2024-06-27 12:43 | disposition home or self-care (01) ==
LOC: LAB 12:44
PROVIDERS: PCP Family Medicine; Visit Provider Internal Medicine
DX: E11.9 Type 2 diabetes mellitus without complications (principal); E03.9 Hypothyroidism, unspecified
CPT/HCPCS: 36415; 80053; 80061; 83036; 84439

== ENCOUNTER → 2024-06-30 09:45 | Outpatient (BNVA) | payer MEDICARE, OTHER, SELFPAY | PROVIDERS: PCP Family Medicine; Visit Provider Internal Medicine | DX: N18.6 End stage renal disease (principal); E16.0 Drug-induced hypoglycemia without coma; T38.3X5A Adverse effect of insulin and oral hypoglycemic [antidiabetic] drugs, initial encounter; E03.9 Hypothyroidism, unspecified; E11.319 Type 2 diabetes mellitus with unspecified diabetic retinopathy without macular edema; E11.40 Type 2 diabetes mellitus with diabetic neuropathy, unspecified; E11.22 Type 2 diabetes mellitus with diabetic chronic kidney disease; X58.XXXA Exposure to other specified factors, initial encounter; Z79.890 Hormone replacement therapy; Z79.85 Long-term (current) use of injectable non-insulin antidiabetic drugs | CPT/HCPCS: 99214 ==

== ENCOUNTER → 2024-08-25 09:45 | Outpatient (BNVA) | payer MEDICARE, OTHER, SELFPAY | PROVIDERS: PCP Family Medicine; Visit Provider Podiatrist Foot & Ankle Surgery | DX: B35.1 Tinea unguium (principal); G62.9 Polyneuropathy, unspecified; R60.9 Edema, unspecified; N18.6 End stage renal disease; E11.42 Type 2 diabetes mellitus with diabetic polyneuropathy | CPT/HCPCS: 11056; 11721 ==

== ENCOUNTER 2024-09-05 13:34 | Oncology outpatient (recurring) (ONCR) | payer MEDICARE, OTHER, SELFPAY | END 2024-09-08 23:59 | disposition home or self-care (01) | PROVIDERS: PCP Family Medicine; Visit Provider Internal Medicine | DX: S72.092D Other fracture of head and neck of left femur, subsequent encounter for closed fracture with routine healing (principal); X58.XXXD Exposure to other specified factors, subsequent encounter | CPT/HCPCS: 96523 ==

== ENCOUNTER 2024-09-27 08:32 | Outpatient (CLI) | payer MEDICARE, OTHER, SELFPAY ==
--- NOTE | 2024-09-27 08:46 | CTR_ITS ---
PROCEDURE INFORMATION: Exam: CT Abdomen And Pelvis With Contrast Exam date and time: 09/27/2024 10:27 AM Age: 74 years old Clinical indication: Prior surgery; Surgery date: 6+ months; Surgery type: Dialysis catheter, gb tubal, left breast lumpectomy; Patient HX: Bloating x 2.5 years since dialysis cath was removed; Additional info: Abdominal bloating, stat TECHNIQUE: Imaging protocol: Computed tomography of the abdomen and pelvis with contrast. Radiation optimization: All CT scans at this facility use at least one of these dose optimization techniques: automated exposure control; mA and/or kV adjustment per patient size (includes targeted exams where dose is matched to clinical indication); or iterative reconstruction. Contrast material: OMNIPAQUE 350; Contrast volume: 100 ml; Contrast route: INTRAVENOUS (IV); Other contrast: Oral, omnipaque 350, 50; COMPARISON: 1. CT pelvis wo con [id number] 08/29/2023 10:16 AM 2. MR abdomen wo/w con* [id number] 03/05/2023 2:[address] abdomen pelvis wo con [id number] 07/19/2022 7:[address] lumbar spine wo con* [id number] 08/29/2023 10:12 AM RADIATION DOSE METRICS: Total DLP (mGy-cm): 308.18 FINDINGS: Lungs: Mild right basilar scarring. Liver: Measures 16.4 cm in craniocaudal dimension. Heterogeneous mottled of the liver without discrete mass. Gallbladder and biliary ducts: Prior cholecystectomy without biliary ductal dilatation. Pancreas: Diffuse pancreatic atrophy without ductal dilatation. Spleen: Normal. No splenomegaly. Adrenal glands: Stable right adrenal thickening possibly representing adenoma. Unremarkable left adrenal gland. Kidneys and ureters: Redemonstrated left renal cyst and bilateral subcentimeter hypodensities too small to characterize are statistically likely benign and require no dedicated imaging follow-up. Mild symmetric perirenal fat stranding is likely age related. Otherwise unremarkable. Stomach and bowel: Suspect prior partial right colectomy. No bowel dilatation to suggest obstruction. No evidence of mucosal thickening. Oral contrast visualized within the stomach and small bowel. Appendix: Evidence of prior appendectomy. Intraperitoneal space: Unremarkable. No free air. No significant fluid collection. Vasculature: Heavy systemic atherosclerosis without abdominal aortic aneurysm. Lymph nodes: Unremarkable. No enlarged lymph nodes. Urinary bladder: Unremarkable as visualized. Reproductive: Unremarkable as visualized. Bones/joints: Stable moderate anterior wedge compression deformity of the T12 vertebral body and mild anterior wedge deformity of the L2 vertebral body. Moderate anterior wedge deformity of the L1 vertebral body new from August 2023, age indeterminate. Degenerative change along the imaged axial skeletal system. Partially visualized bilateral femur intramedullary nail and screw fixation. Soft tissues: Small fat containing left inguinal hernia. CT/CT abdomen pelvis w con* [id number] IMPRESSION: 1. Heterogeneous liver parenchyma suggestive of hepatic venous congestion. 2. Age-indeterminate moderate anterior wedge deformity of the L1 vertebral body new from August 2023. 3. Additional chronic and incidental findings as above. COMMENTS: Consistent with the [employer]'s Incidental Findings Committee white paper (J Am Ramon Radiol 2018): Any incidental renal lesion less than 1 cm or classified as too small to characterize, or any incidental cystic renal lesion characterized as simple-appearing, is likely benign. No follow-up imaging is recommended for these lesions per consensus recommendations based on imaging criteria.
[2024-09-27] MEDS: iohexol 350 mg/mL 500 mL Btl (per mL) PO (10:15)
[2024-09-27] MEDS: iohexol 350 mg/mL 500 mL Btl (per mL) IV (10:42)
== END 2024-09-27 08:33 | disposition home or self-care (01) ==
PROVIDERS: PCP Family Medicine; Visit Provider Internal Medicine Gastroenterology
DX: R14.0 Abdominal distension (gaseous) (principal); K76.89 Other specified diseases of liver; D35.01 Benign neoplasm of right adrenal gland; I70.0 Atherosclerosis of aorta; S22.080A Wedge compression fracture of T11-T12 vertebra, initial encounter for closed fracture; S32.010A Wedge compression fracture of first lumbar vertebra, initial encounter for closed fracture; X58.XXXA Exposure to other specified factors, initial encounter; Z90.49 Acquired absence of other specified parts of digestive tract
CPT/HCPCS: 74177

== ENCOUNTER 2024-09-29 11:36 | Outpatient (CLI) | payer MEDICARE, OTHER, SELFPAY ==
--- NOTE | 2024-09-29 11:39 | MR_ITS ---
WS: [id number] MRI BRAIN WITH HIGH-RESOLUTION IMAGING THROUGH THE INTERNAL AUDITORY CANALS WITHOUT AND WITH CONTRAST HISTORY: SENSORINEURAL HEARING LOSS,BILATERAL COMPARISON: 10/08/2020 TECHNIQUE: Multiplanar, multisequence imaging is performed through the brain. Additional 3 mm imaging performed in multiple planes through the internal auditory canal. Postcontrast imaging with 12 ml's of MultiHance. No acute intracranial hemorrhage, midline shift, edema or mass effect. Mild symmetric atrophy with mild small vessel ischemic type changes in the periventricular and subcor tical white matter. Small vessel disease does appear to progressed since the prior study. No focal in farct. Small vessel ischemic disease also noted bilaterally within the loulou. Reidentified is a well-circumscribed extra-axial mass over the LEFT parietal convexity towards the ve rtex consistent with a meningioma. Moderately intensely enhancing mass with slight mass effect on the parietal cortex. Mass measures 1.6 x 1.6 x 2.1 cm without significant increase in size. No edema in the cortex. No additional masses or abnormal enhancement. Ventricles and extra-axial spaces are normal. No inferior displacement of cerebellar tonsils. Clivus and pituitary gland are normal. Internal and external auditory canals: Unremarkable. Cranial nerves VII and VIII complexes: Unremarkable. No enhancement or mass. Cerebellopontine angles: Normal. Paranasal sinuses: Normal. Mastoid air cells: Normal. Calvarium and scalp: Normal. Visualized [place] and dural venous sinuses demonstrate no abnormality. MR/MR iac's wo/w con* [id number] IMPRESSION: 1. Normal internal auditory canals. No mass identified or abnormal enhancement . 2. Normal cerebellopontine angles. 3. Stable LEFT parietal extra-axial meningioma since 10/08/2020. Meningioma me asures 1.6 x 1.6 x 2.1 cm. 4. Mild progression of atrophy and small vessel ischemic disease since 2020. 5. Mild ischemic change in the loulou bilaterally.
[2024-09-29] MEDS: gadobenate dimeglumine 20 mL vial 12 ML IV (12:59)
== END 2024-09-29 11:37 | disposition home or self-care (01) ==
LOC: RAD 11:36
PROVIDERS: PCP Family Medicine; Visit Provider Otolaryngology
DX: H90.3 Sensorineural hearing loss, bilateral (principal); D32.0 Benign neoplasm of cerebral meninges
CPT/HCPCS: 70553

== ENCOUNTER 2024-10-17 13:16 | Oncology outpatient (recurring) (ONCR) | payer MEDICARE, SELFPAY ==
[2024-10-17] MEDS: denosumab 60 mg SDV SUBCUT (13:35)
== END 2024-11-08 23:59 | disposition home or self-care (01) ==
PROVIDERS: PCP Family Medicine; Visit Provider Internal Medicine
DX: S72.092D Other fracture of head and neck of left femur, subsequent encounter for closed fracture with routine healing (principal); X58.XXXD Exposure to other specified factors, subsequent encounter; Z45.2 Encounter for adjustment and management of vascular access device; Z79.899 Other long term (current) drug therapy; Z53.9 Procedure and treatment not carried out, unspecified reason
CPT/HCPCS: 96372; 96523; J0897

== ENCOUNTER → 2024-10-27 09:49 | Outpatient (BNVA) | payer MEDICARE, SELFPAY | PROVIDERS: PCP Family Medicine; Visit Provider Podiatrist Foot & Ankle Surgery | DX: B35.1 Tinea unguium (principal); G62.9 Polyneuropathy, unspecified; R60.9 Edema, unspecified; N18.6 End stage renal disease; E11.42 Type 2 diabetes mellitus with diabetic polyneuropathy | CPT/HCPCS: 11721 ==

== ENCOUNTER 2024-11-28 13:16 | Oncology outpatient (recurring) (ONCR) | payer MEDICARE, SELFPAY | END 2024-12-09 23:59 | disposition home or self-care (01) | PROVIDERS: PCP Family Medicine; Visit Provider Internal Medicine | DX: Z45.2 Encounter for adjustment and management of vascular access device (principal) | CPT/HCPCS: 96523 ==

== ENCOUNTER 2024-12-06 20:03 | Emergency (ER) | payer MEDICARE, OTHER, SELFPAY ==
[2024-12-06] VITALS (8 sets, daily range): BP systolic 138–173; BP diastolic 65–103; PULSE 63–96; RESP 19–22; TEMP 36.7; O2SAT 90–93; BMI 22.1
--- NOTE | 2024-12-06 20:34 | XRR_ITS ---
PROCEDURE INFORMATION: Exam: XR Chest Exam date and time: 12/06/2024 9:05 PM Age: 74 years old Clinical indication: Shortness of breath; Additional info: SOB TECHNIQUE: Imaging protocol: Radiologic exam of the chest. Views: 1 view. COMPARISON: CR XR chest 1V portable [id number] 04/15/2023 6:05 AM FINDINGS: Lungs: No focal consolidation. Pleural spaces: No evidence of pneumothorax. No evidence of pleural effusion. Heart/Mediastinum: Cardiomediastinal silhouette is within normal limits. Left-sided MediPort with tip terminating at the cavoatrial junction. Bones/joints: No evidence of acute osseous abnormality. Clips noted in the left axilla. XR/XR chest 1V portable [id number] IMPRESSION: 1. No acute cardiopulmonary abnormality.
--- NOTE | 2024-12-06 21:21 | ECG_ITS ---
[facility] 24/7 Card Test Date: 2024-12-06 Pat Name: María Saab Department: Room: Gender: Female Tissue Specialist: : 1950 Requested By: Luis Gibson Order Number: [id number] Baron MD: Gilbert Bass M.D. Measurements Intervals [place] Rate: 93 P: 0 NM: 0 QRS: -52 QRSD: 122 T: 88 QT: 382 QTc: 477 Interpretive Statements ATRIAL FIBRILLATION WITH ABERRANT CONDUCTION OR VENTRICULAR PREMATURE COMPLEXES POSSIBLE ANTERIOR MYOCARDIAL INFARCTION , PROBABLY OLD [30 ms Q WAVE IN V3/V4, OR R < 0.2 mV IN V4] INFERIOR MYOCARDIAL INFARCTION , PROBABLY OLD [40+ ms Q WAVE AND/OR ST/T ABNORMALITY IN II/aVF] Compared to ECG 04/13/2023 14:56:32 Ventricular premature complex(es) now present Sinus rhythm no longer present Short NM interval no longer present Left-axis deviation no longer present T-wave abnormality no longer present Electronically Signed On 12-08-2024 11:17:02 BARREL INSPECTOR TIGHT by Gilbert Bass M.D. [id number]
--- NOTE | 2024-12-06 21:35 | W.ED.SOB ---
HPI - SOB/Dyspnea General: Chief Complaint: Shortness of Breath/Dyspnea Stated Complaint: SOB,lower abd pain Time Seen by Provider: 12/06/24 20:34 History of Present Illness: HPI Narrative: Patient presents to the ER with a cough congestion shortness of breath all started about 3 days ago got worse today. Patient also has some bilateral lower abdominal pain. 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 Patient denies any fever chills nausea vomiting diarrhea or overt sickness. Related Data Home Medications Medication Instructions Recorded Confirmed amitriptyline 100 mg tablet 100 mg PO BEDTIME 10/02/20 10/27/24 tamsulosin 0.4 mg capsule 0.4 mg PO QAM 07/18/22 10/27/24 carvedilol 12.5 mg tablet See Rx Instructions .Route .COMPLEX 02/27/23 10/27/24 lidocaine-prilocaine 2.5 %-2.5 % See Rx Instructions .Route .COMPLEX 02/27/23 10/27/24 topical cream ropinirole 0.5 mg tablet See Rx Instructions .Route .COMPLEX 02/27/23 10/27/24 ropinirole 1 mg tablet 1 mg PO BEDTIME 02/27/23 10/27/24 vit B,C-folic ac 800 mcg-zinc 12.5 1 tab PO QAM 02/27/23 10/27/24 mg-selen-D3 2,000 unit-vit E tablet (RenaPlex-D) mv-mn-folic 200 mcg-vit K 15 1 cap PO QAM 04/13/23 10/27/24 mcg-lutein 5 mg-zeaxanthin 1 mg capsule (PreserVision AREDS 2 Plus Multivit) amlodipine 10 mg tablet 10 mg PO QAM 08/29/23 10/27/24 bumetanide 1 mg tablet See Rx Instructions .Route .COMPLEX 08/29/23 10/27/24 cyclobenzaprine 5 mg tablet 5 mg PO TID PRN Muscle Spasm 08/29/23 10/27/24 folic acid 0.8 mg-vit B comp with 1 tab PO QAM 08/29/23 10/27/24 J-uglf-nwgsdes D3 2,000 unit tablet (Dialyvite 800-Ultra D) sucralfate 1 gram tablet 1 g PO BID 08/29/23 10/27/24 Previous Rx's Medication Instructions Recorded flash glucose scanning reader #1 ea 12/15/22 (FreeStyle Anita 2 [place]) flash glucose sensor (FreeStyle #3 ea 12/15/22 Anita 2 Sensor kit) hydrocodone 7.5 mg-acetaminophen 1 tab PO Q6H PRN severe pain 03/02/23 325 mg tablet (scale score 7-10) #20 tabs tramadol 50 mg tablet 50 mg PO Q8H PRN Moderate Pain #30 03/02/23 tabs wheel chair #1 ea 04/30/23 hydrocodone 7.5 mg-acetaminophen 1 tab PO Q6H PRN pain #20 tabs 08/29/23 325 mg tablet semaglutide 2 mg/dose (8 mg/3 mL) 2 mg (0.75 mL) SUBCUT Q7D #9 mL 09/16/23 subcutaneous pen injector (Ozempic) levothyroxine 200 mcg tablet 200 mcg PO DAILY #90 tabs 03/24/24 denosumab 60 mg/mL subcutaneous 60 mg SUBCUT .u8yqnnyg #1 mL 06/11/24 syringe (Prolia) Allergies Allergy/AdvReac Type Severity Reaction Status Date / Time Penicillins Allergy Mild ALGY-Rash Verified 12/06/24 20:13 propoxyphene [From Darvon] Allergy Mild ALGY-Rash Verified 12/06/24 20:13 codeine Allergy ALGY-Rash Verified 12/06/24 20:13 Review of Systems General: Reports: 10 or more systems reviewed and unremarkable except in HPI and below PFSH ED PFSH: Medical History Lower GI bleed requiring more than 4 units of blood in 24 hours, ICU, or surgery (07/2022) Abdominal bloating SOB (shortness of breath) Spondylolisthesis at L4-L5 level Compression fracture of L4 vertebra Compression fracture of thoracic vertebra Cerebellar stroke syndrome Incomplete bladder emptying Hydronephrosis Ureteral obstruction, right HX OF RIGHT URETEROSCOPY WITH STENT PLACEMENT Obstructive pyelonephritis Kidney stones Hemodialysis patient Chronic kidney disease (CKD) Pleural effusion on right Microcytic anemia Type 2 diabetes mellitus Hx of breast cancer History of peritoneal dialysis HTN (hypertension) Hyperlipidemia Hypothyroidism Cataract Closed fracture of left proximal humerus Surgical History History of cholecystectomy S/P hemodialysis catheter insertion Right IJ: Removed History of surgery Right-sided pleurodesis and Pleurx catheter placement S/P dialysis catheter insertion Peritoneal dialysis catheter placement x3 according to patient, revisions had to be performed in [facility] at an outside facility Hemodialysis catheter placement Hx of cataract surgery Hx of tonsillectomy H/O tubal ligation History of surgery on arm H/O skin graft History of lumpectomy of left breast H/O knee surgery History of kidney surgery Family History Mother Stroke Father Stroke Social History Smoking and tobacco/nicotine status: never used tobacco/nicotine Alcohol intake: never Substance/Drug Use: never Lives independently: Yes Household members: spouse Marital status: Current occupational status: employed Do you think of yourself as: Straight/Heterosexual Current gender identity: Female Physical Exam Const: COMMON NORMALS: no acute distress, average body habitus, patient oriented x3, no limitations, healthy appearing, alert and well nourished HENMT: COMMON NORMALS: normocephalic, atraumatic, hearing grossly normal bilaterally, external ears normal, Normal external nose present and moist oral mucous membranes HEAD & SCALP: normocephalic and atraumatic NOSE: Normal external nose present EXTERNAL EAR: Yes external ears normal Neck/C-Spine: COMMON NORMALS: no JVD Chest: COMMONS NORMALS: normal inspection of the chest and normal palpation of entire chest wall Resp: COMMON NORMALS: normal respiratory effort, No retractions, No use of accessory muscles and clear to auscultation bilaterally AUSCULTATION: clear to auscultation bilaterally Cardio: COMMON NORMALS: no JVD, regular rate, regular rhythm, S1 normal heart sound present, S2 normal heart sound present, No gallops present (Cardio), No clicks present (Cardio) and No murmurs present (Cardio) RATE: regular rate RHYTHM: regular rhythm HEART SOUNDS: S1 normal heart sound present and S2 normal heart sound present GI: COMMON NORMALS: Normal to inspection, nondistended, normoactive bowel sounds present, Soft to palpation, non-tender, No hepatosplenomegaly present and no masses PALPATION: Yes Soft to palpation and Yes No hepatosplenomegaly present Neuro: COMMON NORMALS: patient oriented x3 SENSORIUM/ORIENTATION: Yes alert Course Vital Signs: Vital signs: Vital Signs Temperature 98.1 F 12/06/24 20:10 Pulse Rate 91 12/06/24 22:30 Respiratory Rate 22 H 12/06/24 22:30 Blood Pressure 156/72 12/06/24 22:30 Pulse Oximetry 90 12/06/24 22:30 Oxygen Delivery Me thod Room Air 12/06/24 20:10 MDM - SOB/Dyspnea Medical Decision Making On record review as well as chest x-ray, patient pain her oxygen saturation on room air. Patient states she was ready to go. Did talk with patient about having dialysis for little more excess fluid off and this may help her. She has dialysis tomorrow. Patient be discharged home. Medical Records I reviewed the patient's medical records. Lab Data I reviewed the patient's lab results. 12/06/24 22:07 12/06/24 22:07 Labs/Radiology: Radiology Impressions Chest X-Ray 12/06/24 20:34 IMPRESSION: 1. No acute cardiopulmonary abnormality. Laboratory Results WBC 7.55 10^3/uL (3.29-11.43) 12/06/24 22:07 RBC 3.57 10^6/uL (3.85-5.65) L 12/06/24 22:07 Hgb 10.60 g/dL (11.27-16.99) L 12/06/24 22:07 Hct 33.3 % (36-47) L 12/06/24 22:07 MCV 93.3 fl (85-98) 12/06/24 22:07 MCH 29.7 pg (27-33) 12/06/24 22:07 MCHC 31.8 g/dL (30-55) 12/06/24 22:07 RDW 16.3 % (12.1-15.1) H 12/06/24 22:07 Plt Count 158 10^3/cmm (157-399) 12/06/24 22:07 MPV 11.3 fL (7.4-10.4) H 12/06/24 22:07 Neut % (Auto) 79.3 % 12/06/24 22:07 Lymph % (Auto) 10.3 % 12/06/24 22:07 Walton % (Auto) 7.5 % 12/06/24 22:07 Eos % (Auto) 2.0 % 12/06/24 22:07 Baso % (Auto) 0.4 % 12/06/24 22:07 Neut # (Auto) 5.98 10^3/uL (1.8-7.7) 12/06/24 22:07 Lymph # (Auto) 0.8 10^3/uL (0.8-4.8) 12/06/24 22:07 Walton # (Auto) 0.6 10^3/uL (0.2-0.9) 12/06/24 22:07 Eos # (Auto) 0.2 10^3/uL (0.0-0.8) 12/06/24 22:07 Baso # (Auto) 0.0 10^3/uL (0.0-0.1) 12/06/24 22:07 Nucleated RBC % (auto) 0 % 12/06/24 22:07 Nucleated RBCs # 0.0 /100WBC 12/06/24 22:07 Sodium 129 mmol/L (136-145) L 12/06/24 22:07 Potassium 3.7 mmol/L (3.5-5.1) 12/06/24 22:07 Chloride 89 mmol/L (98-107) L 12/06/24 22:07 Carbon Dioxide 27 mmol/L (22-29) 12/06/24 22:07 Anion Gap 16.7 (5-19) 12/06/24 22:07 BUN 30 mg/dL (8-23) H 12/06/24 22:07 Creatinine 4.2 mg/dL (0.5-0.9) H 12/06/24 22:07 GFR Calculation Not Reportable 12/06/24 22:07 Glucose 161 mg/dL (65-115) H 12/06/24 22:07 Calculated Osmolality 278 mOsm/kg (285-295) L 12/06/24 22:07 Calcium 8.6 mg/dL (8.5-10.5) 12/06/24 22:07 Total Bilirubin 0.5 mg/dL (0.15-1.2) 12/06/24 22:07 AST 17 U/L (0-32) 12/06/24 22:07 ALT 23 U/L (0-33) 12/06/24 22:07 Alkaline Phosphatase 122 U/L (35-105) H 12/06/24 22:07 NT-Pro-B Natriuret Pep 27830 pg/mL (0-450) H 12/06/24 22:07 Total Protein 7.8 g/dL (6.6-8.7) 12/06/24 22:07 Albumin 4.2 g/dL (3.5-5.2) 12/06/24 22:07 Globulin 3.6 g/dL (1.3-4.6) 12/06/24 22:07 Lipase 11 U/L (13-60) L 12/06/24 22:07 Coronavirus (PCR) Negative (Negative) 12/06/24 21:27 Influenza A (PCR) Negative (Negative) 12/06/24 21:27 Influenza Type B (PCR) Negative (Negative) 12/06/24 21:27 All radiology interpretation(s) finalized by discharge Discharge Plan Discharge Patient Disposition: Home Clinical Impression: Breath shortness, ESRD (end stage renal disease) on dialysis Condition: Stable Prescriptions: No Action amitriptyline 100 mg tablet 100 mg PO BEDTIME (DME) FreeStyle Anita 2 [place] [facility] See Rx Instructions .Route Qty: 1 0RF Rx Instructions: check blood sugar (DME) FreeStyle Anita 2 Sensor Kit See Rx Instructions .Route Qty: 3 3RF Rx Instructions: check blood sugar (DME) wheel chair See Rx Instructions .Route .MEDSUPPLY Qty: 1 0RF Rx Instructions: As directed levothyroxine 200 mcg tablet 200 mcg PO DAILY Qty: 90 1RF Ozempic 2 mg/dose (8 mg/3 mL) pen injector 2 mg SUBCUT Q7D Qty: 9 0RF Prolia 60 mg/mL syringe 60 mg SUBCUT .n4ftsmho Qty: 1 0RF Rx Instructions: at infusions tamsulosin 0.4 mg capsule 0.4 mg PO QAM carvedilol 12.5 mg tablet See Rx Instructions .ROUTE .COMPLEX Rx Instructions: 1.25 mg orally 3 times weekly as directed the morning of dialysis on , , Sat and Sun ropinirole 1 mg tablet 1 mg PO BEDTIME lidocaine-prilocaine 2.5-2.5 % cream See Rx Instructions .ROUTE .COMPLEX Rx Instructions: APPLY SMALL AMOUNT TO ACCESS SITE (AVF) 1 HOUR BEFORE DIALYSIS. COVER WITH OCCLUSIVE DRESSING (SARAN WRAP) ropinirole 0.5 mg tablet See Rx Instructions .ROUTE .COMPLEX Rx Instructions: 0.5 mg orally before dialysis on mon,wed,fri RenaPlex-D 800 mcg-12.5 mg -2,000 unit tablet 1 tab PO QAM tramadol 50 mg Tablet 50 mg PO Q8H PRN (Reason: Moderate Pain) Qty: 30 0RF hydrocodone-acetaminophen 7.5-325 mg tablet 1 tab PO Q6H PRN (Reason: severe pain (scale score 7-10)) Qty: 20 0RF PreserVision AREDS 2 Plus MV 200 mcg-15 mcg- 5 mg-1 mg Capsule 1 cap PO QAM amlodipine 10 mg tablet 10 mg PO QAM cyclobenzaprine 5 mg tablet 5 mg PO TID PRN (Reason: Muscle Spasm) sucralfate 1 gram tablet 1 g PO BID bumetanide 1 mg tablet See Rx Instructions .ROUTE .COMPLEX Rx Instructions: 1 mg orally daily on non dialysis days Dialyvite 800-Ultra D 0.8-2,000 mg-unit tablet 1 tab PO QAM hydrocodone-acetaminophen 7.5-325 mg tablet 1 tab PO Q6H PRN (Reason: pain) Qty: 20 0RF Discharge Orders: Discharge ED (Routine); Ordered 12/06/24 Ordered By: Ranjan Olmedo Referrals: Cesar Mendez MD [Primary Care Provider] - 1 week Patient Instructions: Shortness of Breath (ED) Activity Restrictions/Additional Instructions: Activity restrictions/additional instructions: Thank you for choosing [facility] for your healthcare needs today. Please realize that you were seen in the emergency department and that we are providing you with an emergency medical screening exam and this may not be a complete and all exclusive of all testing and/or medical workup we may need to determine your element or severity of your illness. It is very important that you follow-up as instructed with your primary care provider or specialist for the additional evaluation and to discuss your medical treatment plan. You may return to the emergency department should you have concerns or if your condition changes or worsens in any way. Coding Level of Care Code ED Guide Dog Trainer for Supriya Byers
[2024-12-06 22:20] LABS: Basophils % 0.4 %; Eosinophils # 0.2 10^3/uL (0.0-0.8); Hematocrit 33.3 % (36-47); Lymphocytes # 0.8 10^3/uL (0.8-4.8); Lymphocytes % 10.3 %; Mean Corpuscular HGB Conc 31.8 g/dL (30-55); Mean Corpuscular Hemoglobin 29.7 pg (27-33); Mean Corpuscular Volume 93.3 fl (85-98); Mean Platelet Volume 11.3 fL (7.4-10.4); Monocytes # 0.6 10^3/uL (0.2-0.9); Monocytes % 7.5 %; Neutrophils # 5.98 10^3/uL (1.8-7.7); Neutrophils % 79.3 %; Nucleated Red Blood Cells % 0 %; Platelet Count 158 10^3/cmm (157-399); Red Blood Count 3.57 10^6/uL (3.85-5.65); Red Cell Distribution Width 16.3 % (12.1-15.1); White Blood Count 7.55 10^3/uL (3.29-11.43)
[2024-12-06 22:38] LABS: Covid PCR NEGATIVE (Negative); Influenza A NEGATIVE (Negative); Influenza B NEGATIVE (Negative)
[2024-12-06 22:45] LABS: Alanine Aminotransferase 23 U/L (0-33); Albumin Level 4.2 g/dL (3.5-5.2); Alkaline Phosphatase 122 U/L (35-105); Anion Gap 16.7 (5-19); Aspartate Amino Transferase 17 U/L (0-32); Blood Urea Nitrogen 30 mg/dL (8-23); Calcium 8.6 mg/dL (8.5-10.5); Carbon Dioxide 27 mmol/L (22-29); Chloride 89 mmol/L (98-107); Creatinine Clr Calc Pharmacy 9.7358; Globulin 3.6 g/dL (1.3-4.6); Glucose 161 mg/dL (65-115); Lipase 11 U/L (13-60); NT Pro B Type Natriuretic Pept 30048 pg/mL (0-450); Osmolality Calculated 278 mOsm/kg (285-295); Potassium 3.7 mmol/L (3.5-5.1); Sodium 129 mmol/L (136-145); Total Bilirubin 0.5 mg/dL (0.15-1.2); Total Protein 7.8 g/dL (6.6-8.7)
[2024-12-06 23:24] LABS: Respiratory Syncytial Virus Ce POSITIVE (Negative)
== END 2024-12-06 23:30 | disposition home or self-care (01) ==
PROVIDERS: Emergency Medicine; Emergency Provider Emergency Medicine; PCP Family Medicine
DX: R06.02 Shortness of breath (principal); E11.22 Type 2 diabetes mellitus with diabetic chronic kidney disease; I12.0 Hypertensive chronic kidney disease with stage 5 chronic kidney disease or end stage renal disease; N18.6 End stage renal disease; Z99.2 Dependence on renal dialysis; E78.5 Hyperlipidemia, unspecified
CPT/HCPCS: 36415; 71045; 80053; 83690; 83880; 85025; 87637; 93005; 99285

== ENCOUNTER 2024-12-19 12:52 | Outpatient (CLI) | payer MEDICARE, SELFPAY ==
[2024-12-19 13:58] LABS: Estmated Average Glucose 189; Hemoglobin A1C 8.2 % (4.0-6.0)
[2024-12-19 14:18] LABS: 25 Hydroxy Vitamin D 50 ng/mL (30-100); Alanine Aminotransferase 10 U/L (0-33); Albumin Level 3.8 g/dL (3.5-5.2); Alkaline Phosphatase 86 U/L (35-105); Blood Urea Nitrogen 13 mg/dL (8-23); Calcium 9.7 mg/dL (8.5-10.5); Carbon Dioxide 26 mmol/L (22-29); Chloride 96 mmol/L (98-107); Chol HDL Ratio 2.87 mg/dL (0.0-4.40); Cholesterol 129 mg/dL (0-200); Globulin 3.9 g/dL (1.3-4.6); Glucose 191 mg/dL (65-115); HDL Cholesterol 45 mg/dL (60-100); LDL Cholesterol Calculated 64 mg/dL (50-129); LDL HDL Ratio 1.42 RATIO (0.00-3.22); Osmolality Calculated 281 mOsm/kg (285-295); Sodium 133 mmol/L (136-145); Thyroid Stimulating Hormone 1.52 uIU/mL (0.27-4.20); Total Bilirubin 0.7 mg/dL (0.15-1.2); Total Protein 7.7 g/dL (6.6-8.7); Triglycerides 98 mg/dL (0-150)
[2024-12-19 14:30] LABS: Aspartate Amino Transferase 18 U/L (0-32)
[2024-12-19 15:09] LABS: Free T4 Free Thyroxine 1.69 ng/dL (0.82-1.77)
== END 2024-12-19 12:53 | disposition home or self-care (01) ==
PROVIDERS: PCP Family Medicine; Visit Provider Internal Medicine
DX: N18.6 End stage renal disease (principal); E11.9 Type 2 diabetes mellitus without complications; E16.0 Drug-induced hypoglycemia without coma; T38.3X5A Adverse effect of insulin and oral hypoglycemic [antidiabetic] drugs, initial encounter; E03.9 Hypothyroidism, unspecified; X58.XXXA Exposure to other specified factors, initial encounter
CPT/HCPCS: 36415; 80053; 80061; 82306; 83036; 84439; 84443

== ENCOUNTER 2024-12-27 09:58 | Emergency (ER) | payer MEDICARE, OTHER, SELFPAY ==
[2024-12-27 10:02] VITALS: RESP 18; TEMP 36.4; BMI 22.1
--- NOTE | 2024-12-27 10:03 | ECG_ITS ---
[facility] Test Date: 2024-12-27 Pat Name: María Saab Department: Room: Gender: Female Maxillofacial Pathology: : 1950 Requested By: Florian Garcias Order Number: [id number] Braon MD: Gilbert Bass M.D. Measurements Intervals [place] Rate: 75 P: 0 NM: 0 QRS: -58 QRSD: 123 T: 11 QT: 430 QTc: 483 Interpretive Statements ATRIAL FIBRILLATION LEFT AXIS DEVIATION [QRS AXIS < -30] MINIMAL VOLTAGE CRITERIA FOR LVH, CONSIDER NORMAL VARIANT [MEETS CRITERIA IN ONE OF: R(aVL), S(V1), R(V5), R(V5/V6)+S(V1)] POSSIBLE ANTERIOR MYOCARDIAL INFARCTION , PROBABLY OLD [30 ms Q WAVE IN V3/V4, OR R < 0.2 mV IN V4] Compared to ECG 12/06/2024 21:21:06 Left-axis deviation now present Ventricular premature complex(es) no longer present Aberrant conduction of supraventricular beat(s) no longer present Myocardial infarct finding still present Electronically Signed On 12-29-2024 17:54:50 FRENCH TEACHER by Gilbert Bass M.D. [email or web address]
[2024-12-27 10:11] VITALS: BP 128/49; PULSE 75; RESP 18; TEMP 36.4; O2SAT 98
--- NOTE | 2024-12-27 10:15 | XR_ITS ---
WS: [id number] Exam: XR chest 1V portable [id number] Date/Time of Exam: 12/27/2024 10:17 AM Reason For Exam: dyspnea/cough Comparison 12/06/2024. The lungs are hyperinflated and clear. Normal cardiomediastinal silhouette. No pleural effusions. LEFT subclavian port ends at the cavoatrial junction. Surgical clips along the LEFT axilla. Healed proximal LEFT humeral fracture. XR/XR chest 1V portable [id number] IMPRESSION: 1. Pulmonary hyperinflation. No acute process.
[2024-12-27 10:36] LABS: Basophils # 0.1 10^3/uL (0.0-0.1); Eosinophils # 0.2 10^3/uL (0.0-0.8); Eosinophils % 3.8 %; Hematocrit 31.9 % (36-47); Lymphocytes # 0.8 10^3/uL (0.8-4.8); Lymphocytes % 13.8 %; Mean Corpuscular Hemoglobin 30.4 pg (27-33); Mean Corpuscular Volume 95.2 fl (85-98); Mean Platelet Volume 11.3 fL (7.4-10.4); Monocytes # 0.5 10^3/uL (0.2-0.9); Monocytes % 9.2 %; Neutrophils # 4.09 10^3/uL (1.8-7.7); Neutrophils % 71.5 %; Nucleated Red Blood Cells % 0 %; Platelet Count 220 10^3/cmm (157-399); Red Blood Count 3.35 10^6/uL (3.85-5.65); Red Cell Distribution Width 16.9 % (12.1-15.1); White Blood Count 5.73 10^3/uL (3.29-11.43)
--- NOTE | 2024-12-27 10:46 | W.ED.WEAKNES ---
HPI - Weakness General: Chief complaint: Weakness Stated complaint: hypotension Time Seen by Provider: 12/27/24 10:14 History of Present Illness: 74-year-old female brought to the ER after rapid response in the medical office building. She was being seen mentioned that she got dizzy at times her blood pressure was measured at 90 systolic she has not had any chest pain abdominal pain she does occasionally get dizzy when she stands up too quick she is chronically anemic. She taken all of her blood pressure medicines this morning when she arrived here from the clinic setting her blood pressure was 128 systolic she is otherwise asymptomatic. Patient is diabetic. Associated symptoms: Denies chest pain, chills, dysuria or fever(s) Review of Systems Const: Denies: fever(s) or chills Card: Denies: chest pain Resp: Denies: dyspnea GI: Denies: abdominal pain : Denies: dysuria, urinary frequency or urinary urgency Musc: Denies: neck pain or back pain Skin/Breast: Denies: rash PFSH ED PFSH: Medical History Lower GI bleed requiring more than 4 units of blood in 24 hours, ICU, or surgery (07/2022) Abdominal bloating SOB (shortness of breath) Spondylolisthesis at L4-L5 level Compression fracture of L4 vertebra Compression fracture of thoracic vertebra Cerebellar stroke syndrome Incomplete bladder emptying Hydronephrosis Ureteral obstruction, right HX OF RIGHT URETEROSCOPY WITH STENT PLACEMENT Obstructive pyelonephritis Kidney stones Hemodialysis patient Chronic kidney disease (CKD) Pleural effusion on right Microcytic anemia Type 2 diabetes mellitus Hx of breast cancer History of peritoneal dialysis HTN (hypertension) Hyperlipidemia Hypothyroidism Cataract Closed fracture of left proximal humerus Surgical History History of cholecystectomy S/P hemodialysis catheter insertion Right IJ: Removed History of surgery Right-sided pleurodesis and Pleurx catheter placement S/P dialysis catheter insertion Peritoneal dialysis catheter placement x3 according to patient, revisions had to be performed in [facility] at an outside facility Hemodialysis catheter placement Hx of cataract surgery Hx of tonsillectomy H/O tubal ligation History of surgery on arm H/O skin graft History of lumpectomy of left breast H/O knee surgery History of kidney surgery Family History Mother Stroke Father Stroke Social History Smoking and tobacco/nicotine status: never used tobacco/nicotine Alcohol intake: never Substance/Drug Use: never Lives independently: Yes Household members: spouse Marital status: Current occupational status: employed Do you think of yourself as: Straight/Heterosexual Current gender identity: Female Physical Exam Const: GENERAL APPEARANCE: cooperative ORIENTATION/CONSCIOUSNESS: Yes awake, Yes oriented to person, Yes oriented to place and Yes oriented to time HENMT: COMMON NORMALS: normocephalic, atraumatic and hearing grossly normal bilaterally HEAD & SCALP: normocephalic and atraumatic Resp: COMMON NORMALS: normal respiratory effort, No retractions, No use of accessory muscles and clear to auscultation bilaterally AUSCULTATION: clear to auscultation bilaterally Cardio: COMMON NORMALS: regular rate, regular rhythm and No murmurs present (Cardio) RATE: regular rate RHYTHM: regular rhythm GI: COMMON NORMALS: Soft to palpation and No hepatosplenomegaly present AUSCULTATION: Yes normoactive bowel sounds PALPATION: Yes Soft to palpation, No Tenderness to palpation present (GI), No Guarding due to palpation present (GI) and Yes No hepatosplenomegaly present Extremity: COMMON NORMALS: normal to inspection, capillary refill normal, no clubbing, cyanosis or edema, no calf tenderness and no pedal edema Neuro: SENSORIUM/ORIENTATION: Yes oriented to person, Yes oriented to place and Yes oriented to time Skin: COMMON NORMALS: no rashes or lesions noted GENERAL SKIN EXAM: no rashes or lesions noted Course Vital Signs: Vital signs: Vital Signs Temperature 97.6 F 12/27/24 10:11 Pulse Rate 75 12/27/24 14:04 Respiratory Rate 16 12/27/24 11:16 Blood Pressure 178/75 12/27/24 14:04 Pulse Oximetry 99 12/27/24 14:04 Oxygen Delivery Me thod Room Air 12/27/24 13:00 MDM - Weakness Medical Decision Making Patient is feeling much better after IV fluids she did have mild orthostatic hypotension symptomatically she is resolved we will go ahead and discharge patient home have her follow-up with her primary care doctor no change in medications made at this time. Suspect it was her Lasix that triggered this. She should follow-up with her doctor within the next week Medical Records I reviewed the patient's medical records. Lab Data I reviewed the patient's lab results. 12/27/24 10:30 12/27/24 10:30 Radiology Impressions Chest X-Ray 12/27/24 10:15 IMPRESSION: 1. Pulmonary hyperinflation. No acute process. Laboratory Results WBC 5.73 10^3/uL (3.29-11.43) 12/27/24 10:30 RBC 3.35 10^6/uL (3.85-5.65) L 12/27/24 10:30 Hgb 10.20 g/dL (11.27-16.99) L 12/27/24 10:30 Hct 31.9 % (36-47) L 12/27/24 10:30 MCV 95.2 fl (85-98) 12/27/24 10:30 MCH 30.4 pg (27-33) 12/27/24 10:30 MCHC 32.0 g/dL (30-55) 12/27/24 10:30 RDW 16.9 % (12.1-15.1) H 12/27/24 10:30 Plt Count 220 10^3/cmm (157-399) 12/27/24 10:30 MPV 11.3 fL (7.4-10.4) H 12/27/24 10:30 Neut % (Auto) 71.5 % 12/27/24 10:30 Lymph % (Auto) 13.8 % 12/27/24 10:30 [place]ham % (Auto) 9.2 % 12/27/24 10:30 Eos % (Auto) 3.8 % 12/27/24 10:30 Baso % (Auto) 1.0 % 12/27/24 10:30 Neut # (Auto) 4.09 10^3/uL (1.8-7.7) 12/27/24 10:30 Lymph # (Auto) 0.8 10^3/uL (0.8-4.8) 12/27/24 10:30 Oldham # (Auto) 0.5 10^3/uL (0.2-0.9) 12/27/24 10:30 Eos # (Auto) 0.2 10^3/uL (0.0-0.8) 12/27/24 10:30 Baso # (Auto) 0.1 10^3/uL (0.0-0.1) 12/27/24 10:30 Nucleated RBC % (auto) 0 % 12/27/24 10:30 Nucleated RBCs # 0.0 /100WBC 12/27/24 10:30 Sodium 131 mmol/L (136-145) L 12/27/24 10:30 Potassium 3.9 mmol/L (3.5-5.1) 12/27/24 10:30 Chloride 91 mmol/L (98-107) L 12/27/24 10:30 Carbon Dioxide 25 mmol/L (22-29) 12/27/24 10:30 Anion Gap 18.9 (5-19) 12/27/24 10:30 BUN 25 mg/dL (8-23) H 12/27/24 10:30 Creatinine 3.7 mg/dL (0.5-0.9) H 12/27/24 10:30 GFR Calculation Not Reportable 12/27/24 10:30 Glucose 330 mg/dL (65-115) H 12/27/24 10:30 Calculated Osmolality 289 mOsm/kg (285-295) 12/27/24 10:30 Calcium 9.0 mg/dL (8.5-10.5) 12/27/24 10:30 Total Bilirubin 0.5 mg/dL (0.15-1.2) 12/27/24 10:30 AST 10 U/L (0-32) 12/27/24 10:30 ALT 9 U/L (0-33) 12/27/24 10:30 Alkaline Phosphatase 78 U/L (35-105) 12/27/24 10:30 Total Protein 7.3 g/dL (6.6-8.7) 12/27/24 10:30 Albumin 3.7 g/dL (3.5-5.2) 12/27/24 10:30 Globulin 3.6 g/dL (1.3-4.6) 12/27/24 10:30 All radiology interpretation(s) finalized by discharge Discharge Plan Discharge Patient Disposition: Home Clinical Impression: Orthostasis Condition: Stable Prescriptions: No Action amitriptyline 100 mg tablet 100 mg PO BEDTIME (DME) FreeStyle Anita 2 [place] Misc See Rx Instructions .Route Qty: 1 0RF Rx Instructions: check blood sugar (DME) FreeStyle Anita 2 Sensor Kit See Rx Instructions .Route Qty: 3 3RF Rx Instructions: check blood sugar (DME) wheel chair See Rx Instructions .Route .MEDSUPPLY Qty: 1 0RF Rx Instructions: As directed levothyroxine 200 mcg tablet 200 mcg PO DAILY Qty: 90 1RF Ozempic 2 mg/dose (8 mg/3 mL) pen injector 2 mg SUBCUT Q7D Qty: 9 0RF Prolia 60 mg/mL syringe 60 mg SUBCUT .[id number] Qty: 1 0RF Rx Instructions: at infusions tamsulosin 0.4 mg capsule 0.4 mg PO QAM carvedilol 12.5 mg tablet See Rx Instructions .ROUTE .COMPLEX Rx Instructions: 1.25 mg orally 3 times weekly as directed the morning of dialysis on , , Thu and Sun ropinirole 1 mg tablet 1 mg PO BEDTIME RenaPlex-D 800 mcg-12.5 mg -2,000 unit tablet 1 tab PO QAM Dialyvite 800-Ultra D 0.8-2,000 mg-unit tablet 1 tab PO QAM furosemide 80 mg tablet 80 mg PO BID losartan 25 mg tablet 25 mg PO DAILY gabapentin 100 mg capsule 100 mg PO BEDTIME Auryxia 210 mg iron tablet 1 tab PO TID Discharge Orders: Discharge ED (Routine); Ordered 12/27/24 Ordered By: Florian Gerber Referrals: Cesar Mendez MD [Primary Care Provider] - Discharge Diet: Usual diet Discharge Activity: Increase activity as tolerated Patient Instructions: Opioid Safety, Pain Management Activity Restrictions/Additional Instructions: Thank you for choosing [facility] for your healthcare needs today. It is very important that you follow up as instructed or that you return to the Emergency Department should you have concerns or if your condition changes or worsens in any way. You were seen emergency with low blood pressure improved after IV fluids continuously medications Print Language: Serbian Coding Level of Care Code ED Box Finisher for Chg Fwd Related Data Home Medications ?Medication ?Instructions ?Recorded ?Confirmed amitriptyline 100 mg tablet 100 mg PO BEDTIME 10/02/20 12/27/24 tamsulosin 0.4 mg capsule 0.4 mg PO QAM 07/18/22 12/27/24 carvedilol 12.5 mg tablet See Rx Instructions .Route .COMPLEX 02/27/23 12/27/24 ropinirole 1 mg tablet 1 mg PO BEDTIME 02/27/23 12/27/24 vit B,C-folic ac 800 mcg-zinc 12.5 1 tab PO QAM 02/27/23 12/27/24 mg-selen-D3 2,000 unit-vit E tablet (RenaPlex-D) folic acid 0.8 mg-vit B comp with 1 tab PO QAM 08/29/23 12/27/24 V-wjgz-zvgqavy D3 2,000 unit tablet (Dialyvite 800-Ultra D) ferric citrate 210 mg iron tablet 1 tab PO TID 12/27/24 12/27/24 (Auryxia) furosemide 80 mg tablet 80 mg PO BID 12/27/24 12/27/24 gabapentin 100 mg capsule 100 mg PO BEDTIME 12/27/24 12/27/24 losartan 25 mg tablet 25 mg PO DAILY 12/27/24 12/27/24 Previous Rx's ?Medication ?Instructions ?Recorded flash glucose scanning reader #1 ea 12/15/22 (FreeStyle Anita 2 [place]) flash glucose sensor (FreeStyle #3 ea 12/15/22 Anita 2 Sensor kit) wheel chair #1 ea 04/30/23 semaglutide 2 mg/dose (8 mg/3 mL) 2 mg (0.75 mL) SUBCUT Q7D #9 mL 09/16/23 subcutaneous pen injector (Ozempic) levothyroxine 200 mcg tablet 200 mcg PO DAILY #90 tabs 03/24/24 denosumab 60 mg/mL subcutaneous 60 mg SUBCUT .h8zogiaw #1 mL 06/11/24 syringe (Prolia) Allergies Allergy/AdvReac Type Severity Reaction Status Date / Time Penicillins Allergy Mild ALGY-Rash Verified 12/26/24 08:13 propoxyphene (From Darvon) Allergy Mild ALGY-Rash Verified 12/26/24 08:13 codeine Allergy ALGY-Rash Verified 12/26/24 08:13
[2024-12-27 10:54] LABS: Alanine Aminotransferase 9 U/L (0-33); Albumin Level 3.7 g/dL (3.5-5.2); Alkaline Phosphatase 78 U/L (35-105); Anion Gap 18.9 (5-19); Aspartate Amino Transferase 10 U/L (0-32); Blood Urea Nitrogen 25 mg/dL (8-23); Carbon Dioxide 25 mmol/L (22-29); Chloride 91 mmol/L (98-107); Creatinine Clr Calc Pharmacy 11.0514; Globulin 3.6 g/dL (1.3-4.6); Glucose 330 mg/dL (65-115); Osmolality Calculated 289 mOsm/kg (285-295); Potassium 3.9 mmol/L (3.5-5.1); Sodium 131 mmol/L (136-145); Total Bilirubin 0.5 mg/dL (0.15-1.2); Total Protein 7.3 g/dL (6.6-8.7)
[2024-12-27 11:07] VITALS: BP 108/50; BP 112/55; BP 120/49; PULSE 72; PULSE 74; PULSE 76
[2024-12-27 11:16] VITALS: PULSE 71; RESP 16; O2SAT 98
--- NOTE | 2024-12-27 11:38 | PC.NURSE ---
this nurse asked pt for urine sample, pt states she cannot go at this time.
[2024-12-27 13:00] VITALS: BP 151/69; PULSE 69; O2SAT 97
[2024-12-27] MEDS: sodium chloride 0.9% 500 ML 999 ML IV (13:11)
--- NOTE | 2024-12-27 13:11 | PC.NURSE ---
chest port accessed by Asiya DELGADO.
[2024-12-27 14:04] VITALS: BP 178/75; PULSE 75; O2SAT 99
== END 2024-12-27 14:06 | disposition home or self-care (01) ==
PROVIDERS: Emergency Provider Family Medicine; PCP Family Medicine
DX: I95.1 Orthostatic hypotension (principal); Z85.3 Personal history of malignant neoplasm of breast; E78.5 Hyperlipidemia, unspecified; E11.22 Type 2 diabetes mellitus with diabetic chronic kidney disease; I12.9 Hypertensive chronic kidney disease with stage 1 through stage 4 chronic kidney disease, or unspecified chronic kidney disease; N18.9 Chronic kidney disease, unspecified
CPT/HCPCS: 71045; 80053; 85025; 93005; 96361; 96374; 99285; J1642; J7040

== ENCOUNTER → 2024-12-29 10:02 | Outpatient (BNVA) | payer MEDICARE, OTHER, SELFPAY | PROVIDERS: PCP Family Medicine; Visit Provider Podiatrist Foot & Ankle Surgery | DX: E11.42 Type 2 diabetes mellitus with diabetic polyneuropathy (principal); B35.1 Tinea unguium; L84 Corns and callosities; G62.9 Polyneuropathy, unspecified; R60.9 Edema, unspecified; N18.6 End stage renal disease | CPT/HCPCS: 11056; 11721 ==

== ENCOUNTER 2025-01-11 14:24 | Oncology outpatient (recurring) (ONCR) | payer MEDICARE, OTHER, SELFPAY | END 2025-02-06 23:59 | disposition home or self-care (01) | LOC: ONCMED 14:24 | PROVIDERS: PCP Family Medicine; Visit Provider Internal Medicine | DX: Z45.2 Encounter for adjustment and management of vascular access device (principal) | CPT/HCPCS: 96523 ==

== ENCOUNTER 2025-02-06 11:46 | Outpatient (CLI) | payer MEDICARE, OTHER, SELFPAY ==
[2025-02-06 13:12] LABS: Potassium 3.2 mmol/L (3.5-5.1)
== END 2025-02-06 11:47 | disposition home or self-care (01) ==
LOC: LAB 11:53
PROVIDERS: PCP Family Medicine; Visit Provider Student in an Organized Health Care Education/Training Program
DX: E11.3211 Type 2 diabetes mellitus with mild nonproliferative diabetic retinopathy with macular edema, right eye (principal)
CPT/HCPCS: 36415; 84132

== ENCOUNTER 2025-02-20 13:40 | Oncology outpatient (recurring) (ONCR) | payer MEDICARE, OTHER, SELFPAY | END 2025-03-08 23:59 | disposition home or self-care (01) | LOC: ONCMED 13:40 | PROVIDERS: PCP Family Medicine; Visit Provider Internal Medicine | DX: Z45.2 Encounter for adjustment and management of vascular access device (principal) | CPT/HCPCS: 96523 ==

== ENCOUNTER → 2025-03-02 10:34 | Outpatient (BNVA) | payer MEDICARE, OTHER, SELFPAY | PROVIDERS: PCP Family Medicine; Visit Provider Podiatrist Foot & Ankle Surgery | DX: E11.42 Type 2 diabetes mellitus with diabetic polyneuropathy (principal); B35.1 Tinea unguium; L84 Corns and callosities; G62.9 Polyneuropathy, unspecified; R60.9 Edema, unspecified; N18.6 End stage renal disease | CPT/HCPCS: 11056; 11721 ==

== ENCOUNTER 2025-04-05 14:19 | Oncology outpatient (recurring) (ONCR) | payer MEDICARE, OTHER, SELFPAY ==
[2025-04-05 15:27] LABS: Alanine Aminotransferase 9 U/L (0-33); Albumin Level 3.8 g/dL (3.5-5.2); Alkaline Phosphatase 107 U/L (35-105); Anion Gap 13.1 (5-19); Aspartate Amino Transferase 11 U/L (0-32); Blood Urea Nitrogen 7 mg/dL (8-23); Calcium 8.7 mg/dL (8.5-10.5); Carbon Dioxide 32 mmol/L (22-29); Chloride 93 mmol/L (98-107); Chol HDL Ratio 1.92 mg/dL (0.0-4.40); Cholesterol 100 mg/dL (0-200); Free T4 Free Thyroxine 1.53 ng/dL (0.82-1.77); Globulin 3.2 g/dL (1.3-4.6); Glucose 280 mg/dL (65-115); HDL Cholesterol 52 mg/dL (60-100); LDL Cholesterol Calculated 35 mg/dL (50-129); LDL HDL Ratio 0.67 RATIO (0.00-3.22); Osmolality Calculated 288 mOsm/kg (285-295); Potassium 3.1 mmol/L (3.5-5.1); Sodium 135 mmol/L (136-145); Thyroid Stimulating Hormone 2.14 uIU/mL (0.27-4.20); Total Bilirubin 0.5 mg/dL (0.15-1.2); Triglycerides 64 mg/dL (0-150)
== END 2025-04-08 23:59 | disposition home or self-care (01) ==
LOC: ONCMED 14:20
PROVIDERS: PCP Family Medicine; Visit Provider Internal Medicine
DX: Z45.2 Encounter for adjustment and management of vascular access device (principal); Z95.828 Presence of other vascular implants and grafts; E11.9 Type 2 diabetes mellitus without complications; E03.9 Hypothyroidism, unspecified; N18.6 End stage renal disease; T38.3X5A Adverse effect of insulin and oral hypoglycemic [antidiabetic] drugs, initial encounter; X58.XXXA Exposure to other specified factors, initial encounter; E11.319 Type 2 diabetes mellitus with unspecified diabetic retinopathy without macular edema; E11.40 Type 2 diabetes mellitus with diabetic neuropathy, unspecified; E16.0 Drug-induced hypoglycemia without coma
CPT/HCPCS: 36591; 80053; 80061; 84439; 84443; 96523

== ENCOUNTER 2025-04-28 14:16 | Outpatient (CLI) | payer MEDICARE, OTHER, SELFPAY ==
[2025-04-28 15:33] LABS: Creatinine Urine, Random 51 mg/dL (28-217)
[2025-04-28 16:12] LABS: Microalbum Creatinine Ratio Ur 1588 mg/dL (0-20); Microalbumin Random Urine 81 ug/dL (0-20)
== END 2025-04-28 14:17 | disposition home or self-care (01) ==
LOC: LAB 14:22
PROVIDERS: PCP Family Medicine; Visit Provider Internal Medicine
DX: E11.9 Type 2 diabetes mellitus without complications (principal); E16.0 Drug-induced hypoglycemia without coma; E03.9 Hypothyroidism, unspecified
CPT/HCPCS: 82044

== ENCOUNTER → 2025-05-02 10:09 | Outpatient (BNVA) | payer MEDICARE, OTHER, SELFPAY | PROVIDERS: PCP Family Medicine; Visit Provider Internal Medicine | DX: E11.9 Type 2 diabetes mellitus without complications (principal); I95.9 Hypotension, unspecified; E03.9 Hypothyroidism, unspecified; N18.6 End stage renal disease; E11.319 Type 2 diabetes mellitus with unspecified diabetic retinopathy without macular edema; E11.40 Type 2 diabetes mellitus with diabetic neuropathy, unspecified; E16.0 Drug-induced hypoglycemia without coma | CPT/HCPCS: 99214 ==

== ENCOUNTER → 2025-05-04 10:38 | Outpatient (BNVA) | payer MEDICARE, OTHER, SELFPAY | PROVIDERS: PCP Family Medicine; Visit Provider Podiatrist Foot & Ankle Surgery | DX: E11.42 Type 2 diabetes mellitus with diabetic polyneuropathy (principal); B35.1 Tinea unguium; G62.9 Polyneuropathy, unspecified; R60.9 Edema, unspecified; N18.6 End stage renal disease | CPT/HCPCS: 11721 ==

== ENCOUNTER → 2025-06-01 08:04 | Outpatient (BNVA) | payer MEDICARE, OTHER, SELFPAY | PROVIDERS: PCP Family Medicine; Visit Provider Podiatrist Foot & Ankle Surgery | DX: E11.42 Type 2 diabetes mellitus with diabetic polyneuropathy (principal); B35.1 Tinea unguium; G62.9 Polyneuropathy, unspecified; R60.9 Edema, unspecified; N18.6 End stage renal disease; S90.424A Blister (nonthermal), right lesser toe(s), initial encounter; X58.XXXA Exposure to other specified factors, initial encounter | CPT/HCPCS: 10140; 99213 ==

== ENCOUNTER 2025-06-17 10:23 | Emergency (ER) | payer MEDICARE, OTHER, SELFPAY ==
--- OUTSIDE RECORDS SUMMARY | 2025-06-17 10:27 | XMS_ITS | Encounter Summary ---
Author Organization [facility] Address [address] [place] [address] Care Team Providers Care Highway Safety Engineer Name Role Phone Cesar Mendez MD Primary Care Provider [phone] Encounter Details Date Type Department Care Team (Latest Contact Info) Description 02/09/2002 Outpatient Historical HIS [facility] Vince Chaney Jr., MD [address] [place] [address] BACKACHE NOS (Primary Dx); DIABETES UNCOMPL ADULT-TYPE II (CMS/[facility]); HYPERTENSION NOS; AFTERCARE RESIDENTIAL USE MEDICATN Social History Tobacco Use Types Packs/Day Years Used Date Smoking Tobacco: Never Assessed Comments Unknown Sex and Gender Information Value Date Recorded Sex Assigned at Not on file 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 Sex 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 Gender Identity Not on file Sexual Orientation Not on file documented as of this encounter Plan of Treatment Not on file documented as of this encounter Visit Diagnoses Diagnosis Backache, unspecified- Primary Type II or unspecified type diabetes mellitus without mention of complication, not stated as uncontrolled Unspecified essential hypertension Encounter for long-term (current) use of other medications documented in this encounter Care Teams Highway Safety Engineer Relationship Specialty Start Date End Date Cesar Mendez MD [address] [facility] [address] [place] [address] PCP - General Family Practice 01/13/20 documented as of this encounter
--- OUTSIDE RECORDS SUMMARY | 2025-06-17 10:27 | XMS_ITS | Encounter Summary ---
Author Organization [facility] Address [address] [place] [address] Care Team Providers Care Lye Machine Operator Name Role Phone Cesar Mendez MD Primary Care Provider [phone] Encounter Details Date Type Department Care Team (Latest Contact Info) Description 06/30/2002 Outpatient Historical HIS [facility] Vince Chaney Jr., MD [address] [place] [address] ANEMIA NOS (Primary Dx); DIABETES UNCOMPL ADULT-TYPE II (CMS/HCC); HYPERTENSION NOS Social History Tobacco Use Types Packs/Day Years Used Date Smoking Tobacco: Never Assessed Comments Unknown Sex and Gender Information Value Date Recorded Sex Assigned at Not on file Legal Sex Female 4:12 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
--- OUTSIDE RECORDS SUMMARY | 2025-06-17 10:27 | XMS_ITS | Encounter Summary ---
Author Organization [facility] Address [address] [place] [address] Care Team Providers Care Cook Dessert Name Role Phone Cesar Mendez MD Primary Care Provider [phone] Encounter Details Date Type Department Care Team (Late st Contact Info) Description 01/02/2003 Outpatient Historical HIS [facility] Vince Chaney Jr., MD [address] [place] [address] Social History Tobacco Use Types Packs/Day Years Used Date Smoking Tobacco: Never Assessed Comments Unknown Sex and Gender Information Value Date Recorded Sex Assigned at Not on file 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
--- OUTSIDE RECORDS SUMMARY | 2025-06-17 10:27 | XMS_ITS | Encounter Summary ---
Author Organization [facility] Address [address] [place] [address] Care Team Providers Care Log Sawyer Name Role Phone Cesar Mendez MD Primary Care Provider [phone] Encounter Details Date Type Department Care Team (Latest Contact Info) Description 07/06/2003 Outpatient Historical HIS [facility] Vince Chaney Jr., MD [address] [place] [address] DIABETES UNCOMPL ADULT-TYPE II (CMS/HCC) (Primary Dx); LUMBAGO; HYPERTENSION NOS Social History Tobacco Use Types Packs/Day Years Used Date Smoking Tobacco: Never Assessed Comments Unknown Sex and Gender Information Value Date Recorded Sex Assigned at Not on file Legal Sex Female 4:12 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
--- OUTSIDE RECORDS SUMMARY | 2025-06-17 10:27 | XMS_ITS | Encounter Summary ---
Author Organization [employer] [facility] Address [address] [place] [address] Care Team Providers Care Subject Scientific Research Name Role Phone Cesar Mendez MD Primary Care Provider [phone] Encounter Details Date Type Department Care Team (Latest Contact Info) Description 04/05/2003 Outpatient Historical HIS [facility] Vince Chaney Jr., MD [address] [place] [address] DIABETES UNCOMPL ADULT-TYPE II (CMS/HCC) (Primary Dx); Pure hypercholesterolem; HYPERTENSION NOS; AFTERCARE CAREERS ADVISER USE MEDICATN Social History Tobacco Use Types Packs/Day Years Used Date Smoking Tobacco: Never Assessed Comments Unknown Sex and Gender Information Value Date Recorded Sex Assigned at Not on file Legal Sex Female 4:12 AM FURNACE PROCESS PLANT OPERATOR Gender Identity Not on file Sexual Orientation Not on file documented as of this encounter Plan of Treatment Not on file documented as of this encounter Visit Diagnoses Diagnosis Type II or unspecified type diabetes mellitus without mention of complication, not stated as uncontrolled- Primary Pure hypercholesterolem Pure hypercholesterolemia Unspecified essential hypertension Encounter for long-term (current) use of other medications documented in this encounter Care Teams Subject Scientific Research Relationship Specialty Start Date End Date Cesar Mendez MD [address] [address] PCP - General Family Practice 01/13/20 documented as of this encounter
--- OUTSIDE RECORDS SUMMARY | 2025-06-17 10:27 | XMS_ITS | Encounter Summary ---
Author Organization [facility] Address [address] [place] [address] Care Team Providers Care All Round Logger Name Role Phone Cesar Mendez MD Primary Care Provider [phone] Encounter Details Date Type Department Care Team (Late st Contact Info) Description 04/05/2003 Outpatient Historical HIS [facility] Vince Chaney Jr., MD [address] [place] [address] Social History Tobacco Use Types Packs/Day Years Used Date Smoking Tobacco: Never Assessed Comments Unknown Sex and Gender Information Value Date Recorded Sex Assigned at Not on file Legal Sex Female 4:12 AM SOFTWARE CONFIGURATION ENGINEER Gender Identity Not on file Sexual Orientation Not on file documented as of this encounter Plan of Treatment Not on file documented as of this encounter Visit Diagnoses Not on filedocumented in this encounter Care Teams All Round Logger Relationship Specialty Start Date End Date Cesar Mendez MD [address] [facility] 1 [place] [address] PCP - General Family Practice 01/13/20 documented as of this encounter
--- OUTSIDE RECORDS SUMMARY | 2025-06-17 10:27 | XMS_ITS | Encounter Summary ---
Author Organization [facility] [employer] [facility] [facility] Address [address] [place] [address] Care Team Providers Care Accounts Payable Analyst Name Role Phone Cesar Mendez MD Primary Care Provider [phone] Encounter Details Date Type Department Care Team (Latest Contact Info) Description 03/16/2002 Outpatient Historical HIS [facility] Vince Chaney Jr., MD [address] [place] [address] DIABETES UNCOMPL ADULT-TYPE II (CMS/HCC) (Primary Dx); Pure hypercholesterolem; PERS HX OF BREAST MALIGNANCY Social History Tobacco Use Types Packs/Day Years Used Date Smoking Tobacco: Never Assessed Comments Unknown Sex and Gender Information Value Date Recorded Sex Assigned at Not on file Legal Sex Female 4:12 AM AUTO STRIPER Gender Identity Not on file Sexual Orientation Not on file documented as of this encounter Plan of Treatment Not on file documented as of this encounter Visit Diagnoses Diagnosis Type II or unspecified type diabetes mellitus without mention of complication, not stated as uncontrolled- Primary Pure hypercholesterolem Pure hypercholesterolemia Personal history of malignant neoplasm of breast documented in this encounter Care Teams Accounts Payable Analyst Relationship Specialty Start Date End Date Cesar Mendez MD [address] [facility] 1 [place] [phone] PCP - General Family Practice 01/13/20 documented as of this encounter
--- OUTSIDE RECORDS SUMMARY | 2025-06-17 10:27 | XMS_ITS | Encounter Summary ---
Author Organization [facility] Address [address] [place] [address] Care Team Providers Care Metallic Yarn Slitting Machine Operator Name Role Phone Cesar Mendez MD Primary Care Provider [phone] Encounter Details Date Type Department Care Team (Late st Contact Info) Description 04/05/2003 Outpatient Historical HIS [facility] Vince Chaney Jr., MD [address] [place] [address] Social History Tobacco Use Types Packs/Day Years Used Date Smoking Tobacco: Never Assessed Comments Unknown Sex and Gender Information Value Date Recorded Sex Assigned at Not on file Legal Sex Female 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
--- OUTSIDE RECORDS SUMMARY | 2025-06-17 10:27 | XMS_ITS | Encounter Summary ---
Author Organization [employer] [facility] Address [address] [place] [address] Care Team Providers Care Insurance Agency Manager Name Role Phone Cesar Mendez MD Primary Care Provider [phone] Encounter Details Date Type Department Care Team (Latest Contact Info) Description 01/02/2003 Outpatient Historical HIS [facility] Vince Chaney Jr., MD [address] [place] [address] DIABETES UNCOMPL ADULT-TYPE II (CMS/HCC) (Primary Dx); HYPERTENSION NOS; Pure hypercholesterolem; HEMATURIA Social History Tobacco Use Types Packs/Day Years Used Date Smoking Tobacco: Never Assessed Comments Unknown Sex and Gender Information Value Date Recorded Sex Assigned at Not on file Legal Sex Female 4:12 AM APPOINTMENT SETTER Gender Identity Not on file Sexual Orientation Not on file documented as of this encounter Plan of Treatment Not on file documented as of this encounter Visit Diagnoses Diagnosis Type II or unspecified type diabetes mellitus without mention of complication, not stated as uncontrolled- Primary Unspecified essential hypertension Pure hypercholesterolem Pure hypercholesterolemia Hematuria documented in this encounter Care Teams Insurance Agency Manager Relationship Specialty Start Date End Date Cesar Mendez MD [address] [facility] 1 [place] [address] PCP - General Family Practice 01/13/20 documented as of this encounter
--- OUTSIDE RECORDS SUMMARY | 2025-06-17 10:27 | XMS_ITS | Encounter Summary ---
Author Organization [facility] Address [address] [place] [address] Care Team Providers Care Retail Department Manager Name Role Phone Cesar Mendez MD Primary Care Provider [phone] Encounter Details Date Type Department Care Team (Latest Contact Info) Description 10/03/2002 Outpatient Historical [facility] Vince Chaney Jr., MD [address] [place] [address] DIABETES UNCOMPL ADULT-TYPE II (CMS/HCC) (Primary Dx); HYPERTENSION NOS; HYPOTHYROIDISM NOS; VACCINE FOR INFLUENZA Social History Tobacco Use Types Packs/Day Years Used Date Smoking Tobacco: Never Assessed Comments Unknown Sex and Gender Information Value Date Recorded Sex Assigned at Not on file Legal Sex Female 4:12 AM BAND CUTTER Gender Identity Not on file Sexual Orientation Not on file documented as of this encounter Plan of Treatment Not on file documented as of this encounter Visit Diagnoses Diagnosis Type II or unspecified type diabetes mellitus without mention of complication, not stated as uncontrolled- Primary Unspecified essential hypertension Unspecified hypothyroidism Need vaccination-viral disease Need for prophylactic vaccination and inoculation against other viral diseases documented in this encounter Care Teams Retail Department Manager Relationship Specialty Start Date End Date Cesar Mendez MD [address] [facility] 1 [place] [address] PCP - General Family Practice 01/13/20 documented as of this encounter
--- OUTSIDE RECORDS SUMMARY | 2025-06-17 10:27 | XMS_ITS | Encounter Summary ---
Author Organization [employer] [facility] Address [address] [place] [address] Care Team Providers Care Supervisor Decorating Name Role Phone Cesar Mendez MD Primary Care Provider [phone] Encounter Details Date Type Department Care Team (Late st Contact Info) Description 07/20/2003 Outpatient [facility] Breast Center [facility] [address] [place], [place] [id number] Vince Chaney Jr., MD [address] [place] [address] SCREENING MAMM-MAILG NEOPL-OTHER (Primary Dx) Social History Tobacco Use Types Packs/Day Years Used Date Smoking Tobacco: Never Assessed Comments Unknown Sex and Gender Information Value Date Recorded Sex Assigned at Not on file 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
--- OUTSIDE RECORDS SUMMARY | 2025-06-17 10:27 | XMS_ITS | Encounter Summary ---
Author Organization [employer] [facility] Address [address] [place] [address] Care Team Providers Care Production Leader Name Role Phone Cesar Mendez MD Primary Care Provider [phone] Encounter Details Date Type Department Care Team (Latest Contact Info) Description 08/31/2001 Outpatient Historical [facility] Vince Chaney Jr., MD [address] [place] [address] Need vaccination-viral disease (Primary Dx) Social History Tobacco Use Types Packs/Day Years Used Date Smoking Tobacco: Never Assessed Comments Unknown Sex and Gender Information Value Date Recorded Sex Assigned at Not on file Legal Sex Female 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
--- OUTSIDE RECORDS SUMMARY | 2025-06-17 10:27 | XMS_ITS | Encounter Summary ---
Author Organization [employer] Address [address] [facility] Attn: [place] [address] Care Team Providers Care Universal Winding Machine Operator Name Role Phone Cesar Mendez MD Primary Care Provider [phone] Encounter Details Date Type Department Care Team (Late st Contact Info) Description 07/12/2002 Outpatient Historical Vince Chaney Jr., MD [address] [place] [address] Social History Tobacco Use Types Packs/Day Years Used Date Smoking Tobacco: Never Assessed Comments Unknown Sex and Gender Information Value Date Recorded Sex Assigned at Not on file 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
--- OUTSIDE RECORDS SUMMARY | 2025-06-17 10:27 | XMS_ITS | Encounter Summary ---
Author Organization [facility] Address [address] [facility] Attn: [place] [address] Care Team Providers Care Certified Solid Waste Facility Operator Name Role Phone Cesar Mendez MD Primary Care Provider [phone] Encounter Details Date Type Department Care Team (Late st Contact Info) Description 09/06/2001 Outpatient Historical Walt Solomon MD [address] [place] [address] Social History Tobacco Use Types Packs/Day Years Used Date Smoking Tobacco: Never Assessed Comments Unknown Sex and Gender Information Value Date Recorded Sex Assigned at Not on file 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
--- OUTSIDE RECORDS SUMMARY | 2025-06-17 10:28 | XMS_ITS | Encounter Summary ---
Author Organization [facility] Address [address] [place] [address] Phone Care Team Providers Care Personnel Director Name Role Phone Cesar Mendez MD Primary Care Provider [phone] Reason for Visit * Reason Comments Med Refill Encounter Details Date Type Department Care Team (Late st Contact Info) Description 05/06/2021 Refill [facility] [address] [place] [address] Wu Clark MD [address] [place] [address] Social History Tobacco Use Types Packs/Day Years Used Date Smoking Tobacco: Never Smokeless Tobacco: Never Alcohol Use Standard Drinks/Week Comments Never 0 (1 standard drink = 0.6 oz pur e alcohol) AUDIT-C Answer Date Recorded Frequency of Alcohol Consumption Never 12/27/2018 Average Number of Drinks Not on file 019 Frequency of Binge Drinking Not on file 12/10 Comments Unknown Sex and Gender Information Value Date Recorded Sex Assigned at Not on file Legal Sex Female 10:51 AM EST Gender Identity Not on file Sexual Orientation Not on file documented as of this encounter Plan of Treatment Not on file documented as of this encounter Visit Diagnoses Not on filedocumented in this encounter Care Teams Personnel Director Relationship Specialty Start Date End Date Cesar Mendez MD [address] [place] [phone] PCP - General Family Medicine 12/29/18 documented as of this encounter
--- OUTSIDE RECORDS SUMMARY | 2025-06-17 10:28 | XMS_ITS | Encounter Summary ---
Author Organization [facility] Address [address] [facility] [address] [facility] [address] [place] [address] Phone Care Team Providers Care Phlebotomy Services Technician Name Role Phone Cesar Mendez MD Primary Care Provider [phone] Encounter Details Date Type Department Care Team (Late st Contact Info) Description 03/16/2019 Orders Only [facility] [address] [place] [address] Wu Clark MD [address] [place] [address] Chronic kidney disease stage 4 (HCC) Social History Tobacco Use Types Packs/Day Years [...] on file documented as of this encounter Progress Notes * Wu Clark MD - 03/16/2019 11:59 PM CDT Have her stop her losartin and lasix and recheck next Thursday. She's going to be seen this week. documented in this encounter Plan of Treatment Not on file documented as of this encounter Procedures Procedure Name Priority Date/Time Associated Diagnosis Comments CBC Routine 03/09/2019 Chronic kidney disease stage 4 (HCC) RENAL FUNCTION PANEL Routine 03/09/2019 Chronic kidney disease stage 4 (HCC) documented in this encounter Results * CBC (03/09/2019) WBC 6.9 K/uL [facility] Red Blood Cell Count 3.25 [facility] Hemoglobin 9.4 g/dL [facility] Hematocrit 28.2 % [facility] MCV 86.7 [facility] MCH 28.9 [facility] MCHC 33.3 [facility] RDW 16.5 [facility] Platelet Count 274 [facility] Absolute Lymphocytes 1.2 [facility] Absolute Monocytes 0.6 [facility] Lymphocytes 17 [facility] Monocytes 8.5 [facility] Blood specimen (specimen) 03/09/2019 Narrative [facility] - 03/15/2019 9:45 AM CDT kwadwo klein us Wu Clark MD LAB BLOOD ORDERABLES Fi nal Result [facility] * (ABNORMAL) RFP (03/09/2019) Albumin 3.8 3.5 - 5.0 g/dL [facility] BUN 74(A) 4 - 21 mg/dL [facility] BUN/Creatinine Ratio 17.62 [facility] Calcium 9.4 8.7 - 10.7 mg/dL [facility] Chloride 103 99 - 108 [facility] Bicarbonate (CO2) 23 22 - 30 mmol/L [facility] Creatinine 4.20(A) 0.50 - 1.10 mg/dL [facility] eGFR 11.1 mL/min/1.7 3m*2 [facility] eGFR Non- 13.0 mL/min/1.7 3m*2 [facility] Glucose 67 [facility] Blood specimen (specimen) 03/09/2019 Narrative [facility] - 03/15/2019 9:48 AM CDT Kwadwo klein us Wu Clark MD LAB BLOOD ORDERABLES Fi nal Result [facility] documented in this encounter Visit Diagnoses Diagnosis Chronic kidney disease stage 4 (HCC) documented in this encounter Care Teams Phlebotomy Services Technician Relationship Specialty Start Date End Date Cesar Mendez MD [address] [place] [address] PCP - General Family Medicine 12/29/18 documented as of this encounter
--- OUTSIDE RECORDS SUMMARY | 2025-06-17 10:28 | XMS_ITS | Encounter Summary ---
Author Organization [facility] Address [address] [place] [address] Care Team Providers Care Environmental Services Attendant Name Role Phone Cesar Mendez MD Primary Care Provider [phone] Reason for Referral * Radiology Services (Routine) - Closed Specialty Diagnoses / Procedures Referred By George wallace Referred To Contact Radiology Diagnoses ESRD on dialysis ([facility]) Procedures IR FISTULOGRAM Wu Clark MD [facility] Interventional Radiology [address] [place] [address] Phone: tel: fax: Referral ID Status Reason Start Date Expiration Date Visits Re quested Visits Authorized [id number] Closed 11/30/2020 12/31/2021 1 1 AND PENCILS REPAIRER Encounter Details Date Type Department Care Team (Latest Contact Info) Description 11/30/2020 Ancillary Orders [facility] Interventional Radiology [address] [place] [address] Wu Clark MD NO ADDRESS ON FILE ESRD on dialysis ([facility]) Social History Tobacco Use Types Packs/Day Years Used Date Smoking Tobacco: Never Smokeless Tobacco: Never Alcohol Use Standard Drinks/Week Comments Never 0 (1 standard drink = 0.6 oz pur e alcohol) Comments No Sex and Gender Information Value Date Recorded Sex Assigned at Not on file Legal Sex Female 4:12 AM PENS AND PENCILS REPAIRER Gender Identity Not on file Sexual Orientation Not on file COVID-19 Exposure Response Date Recorded In the last month, have you been in contact with someone who was confirmed or suspected to have Coronavirus / COVID-19? No / Unsure 11/30/2020 11:40 AM PENS AND PENCILS REPAIRER documented as of this encounter Plan of Treatment Not on file documented as of this encounter Results * IR FISTULOGRAM (11/30/2020 3:52 PM PENS AND PENCILS REPAIRER) Anatomical Region Laterality Modality X-Ray Angiograph y 11/30/2020 3:52 PM PENS AND PENCILS REPAIRER Impressions 11/30/2020 6:58 PM PENS AND PENCILS REPAIRER IMPRESSION: Please see below. Exam: Right upper portion dialysis fistulogram, declot and peripheral venous balloon angioplasty and stent graft insertion Date/Time of Exam: 11/30/2020 3:52 PM Reason For Exam: This is a 70-year-old female who underwent declot on 11/22/2020. The patient returns with newly thrombosed right upper arm dialysis graft.. Diagnosis: ESRD on dialysis; ESRD on dialysis. Findings: The procedure and its risks and convocations were explained to the patient and written consent was obtained. Monitored IV conscious sedation was performed. Following sterile preparation, drape, and adequate local anesthesia, the arterial limb of the dialysis graft was punctured and a 6 Panamanian sheath was placed with its tip directed centrally. A 5 Panamanian straight end hole catheter was advanced over a J guidewire position with its tip in the right axillary vein. Imaging was performed over the chest during contrast injection. The catheter was retracted and imaging was performed throughout the venous outflow of the graft. These images demonstrate wide patency of the central veins. The outflow brachial and basilic vein are widely patent with the exception of a recurrent moderate short segment stenosis at the venous anastomosis of the graft. Subsequently, the end hole catheter was replaced over the guidewire with an 8 mm x 4 cm balloon angioplasty catheter. Angioplasty was performed at the venous anastomotic stenosis. Alteplase 2.5 mg was pulse sprayed infused throughout the thrombus in the venous limb of the graft. The balloon catheter was removed from the access sheath. Subsequently the venous limb of the graft was punctured and a 6 Panamanian sheath was placed with its tip directed peripherally. A 5 Panamanian Yamileth balloon catheter was advanced over the glide wire and positioned with its tip in the arterial limb of the graft. Alteplase 2.5 mg was pulse sprayed infused throughout the thrombosed arterial limb. An angled Glidewire was then advanced across the AV anastomosis into the proximal right brachial artery. Yamileth balloon thrombectomy was performed several times. Repeat imaging demonstrated was stored patency and outflow throughout the graft with a persistent filling defect in the arterial limb of the graft near the arterial limb access sheath. At this point the millimeter by 4 cm balloon catheter was advanced over the guidewire through the venous limb access sheath and angioplasty was performed at the filling defect 4 balloon maceration. Repeat imaging demonstrated resolution of the filling defect. There was however some subtle persistent filling defect in the venous limb of the graft. The balloon catheter was removed from the venous limb access sheath and advanced over the guidewire through the arterial limb access sheath. Balloon maceration was performed throughout the venous limb of the graft. Repeat imaging demonstrated resolution of the residual thrombus. There was a persistent moderate short segment stenosis at the venous anastomosis of the graft. Subsequently the balloon angioplasty catheter was removed leaving the guidewire in place through the venous outflow of the graft. The indwelling 6 Panamanian arterial limb access sheath was replaced with an 8 Panamanian access sheath through which a 9 mm x 6 cm Covera stent graft was advanced and deployed at the venous anastomosis. The introducer device was removed from the guidewire and the 8 mm x 4 cm balloon catheter was advanced and balloon angioplasty was performed within the covered stent. Repeat imaging demonstrated wide patency of the treated segment. The balloon catheter was removed from the access sheath. The sheaths were removed and hemostasis was achieved using 2-0 nylon suture material as per string closures at both sites. Blood loss was negligible. IMPRESSION: This examination demonstrated a recurrent short segment moderate grade elastic stenosis at the venous anastomosis the graft. The clot was performed. A Covera stent graft was deployed and ballooned into position resulting in near 100% patency of the venous anastomotic site. A good thrill was palpable within the graft upon completion Narrative Procedure Note Betsey Serra MD - 11/30/2020 IMPRESSION: Please see below. Exam: Right upper portion dialysis fistulogram, declot and peripheral venous balloon angioplasty and stent graft insertion Date/Time of Exam: 11/30/2020 3:52 PM Reason For Exam: This is a 70-year-old female who underwent declot on 11/22/2020. The patient returns with newly thrombosed right upper arm dialysis graft.. Diagnosis: ESRD on dialysis; ESRD on dialysis. Findings: The procedure and its risks and convocations were explained to the patient and written consent was obtained. Monitored IV conscious sedation was performed. Following sterile preparation, drape, and adequate local anesthesia, the arterial limb of the dialysis graft was punctured and a 6 Panamanian sheath was placed with its tip directed centrally. A 5 Panamanian straight end hole catheter was advanced over a J guidewire position with its tip in the right axillary vein. Imaging was performed over the chest during contrast injection. The catheter was retracted and imaging was performed throughout the venous outflow of the graft. These images demonstrate wide patency of the central veins. The outflow brachial and basilic vein are widely patent with the exception of a recurrent moderate short segment stenosis at the venous anastomosis of the graft. Subsequently, the end hole catheter was replaced over the guidewire with an 8 mm x 4 cm balloon angioplasty catheter. Angioplasty was performed at the venous anastomotic stenosis. Alteplase 2.5 mg was pulse sprayed infused throughout the thrombus in the venous limb of the graft. The balloon catheter was removed from the access sheath. Subsequently the venous limb of the graft was punctured and a 6 Panamanian sheath was placed with its tip directed peripherally. A 5 Panamanian Yamileth balloon catheter was advanced over the glide wire and positioned with its tip in the arterial limb of the graft. Alteplase 2.5 mg was pulse sprayed infused throughout the thrombosed arterial limb. An angled Glidewire was then advanced across the AV anastomosis into the proximal right brachial artery. Yamileth balloon thrombectomy was performed several times. Repeat imaging demonstrated was stored patency and outflow throughout the graft with a persistent filling defect in the arterial limb of the graft near the arterial limb access sheath. At this point the millimeter by 4 cm balloon catheter was advanced over the guidewire through the venous limb access sheath and angioplasty was performed at the filling defect 4 balloon maceration. Repeat imaging demonstrated resolution of the filling defect. There was however some subtle persistent filling defect in the venous limb of the graft. The balloon catheter was removed from the venous limb access sheath and advanced over the guidewire through the arterial limb access sheath. Balloon maceration was performed throughout the venous limb of the graft. Repeat imaging demonstrated resolution of the residual thrombus. There was a persistent moderate short segment stenosis at the venous anastomosis of the graft. Subsequently the balloon angioplasty catheter was removed leaving the guidewire in place through the venous outflow of the graft. The indwelling 6 Panamanian arterial limb access sheath was replaced with an 8 Panamanian access sheath through which a 9 mm x 6 cm Covera stent graft was advanced and deployed at the venous anastomosis. The introducer device was removed from the guidewire and the 8 mm x 4 cm balloon catheter was advanced and balloon angioplasty was performed within the covered stent. Repeat imaging demonstrated wide patency of the treated segment. The balloon catheter was removed from the access sheath. The sheaths were removed and hemostasis was achieved using 2-0 nylon suture material as per string closures at both sites. Blood loss was negligible. IMPRESSION: This examination demonstrated a recurrent short segment moderate grade elastic stenosis at the venous anastomosis the graft. The clot was performed. A Covera stent graft was deployed and ballooned into position resulting in near 100% patency of the venous anastomotic site. A good thrill was palpable within the graft upon completion us Wu Clark MD IR ORDERABLES Final Result documented in this encounter Visit Diagnoses Diagnosis ESRD on dialysis ([facility]) End stage renal disease ESRD on dialysis ([facility]) End stage renal disease documented in this encounter Care Teams Environmental Services Attendant Relationship Specialty Start Date End Date Cesar Mendez MD [address] [phone] PCP - General Family Practice 01/13/20 documented as of this encounter
--- OUTSIDE RECORDS SUMMARY | 2025-06-17 10:28 | XMS_ITS | Encounter Summary ---
Author Organization [facility] Address [address] [place] [address] Care Team Providers Care Rough Rounder Machine Name Role Phone Cesar Mendez MD Primary Care Provider [phone] Encounter Details Date Type Department Care Team (Latest Contact Info) Description 08/30/1999 Outpatient Historical [facility] Breast Center [address] [facility] [address] [place] [phone] Nagi Clark MD NO ADDRESS ON FILE Lump or mass in breast (Primary Dx) Social History Tobacco Use Types Packs/Day Years Used Date Smoking Tobacco: Never Assessed Comments Unknown Sex and Gender Information Value Date Recorded Sex Assigned at Not on file Legal Sex Female 4:12 AM RESPIRATORY THERAPIST Gender Identity Not on file Sexual Orientation Not on file documented as of this encounter Plan of Treatment Not on file documented as of this encounter Visit Diagnoses Diagnosis Lump or mass in breast- Primary documented in this encounter Care Teams Rough Rounder Machine Relationship Specialty Start Date End Date Cesar Mendez MD [address] [facility] 1 [place] [phone] PCP - General Family Practice 01/13/20 documented as of this encounter
--- OUTSIDE RECORDS SUMMARY | 2025-06-17 10:28 | XMS_ITS | Encounter Summary ---
Author Organization [facility] Address [address] [place] [address] Care Team Providers Care Geriatric Case Manager Name Role Phone Cesar Mendez MD Primary Care Provider [phone] Encounter Details Date Type Department Care Team (Latest Contact Info) Description 09/23/1999 Outpatient Historical [facility] Antonio Mathis MD [address] [place] [address] Other specified aftercare following surgery (Primary Dx) Social History Tobacco Use Types Packs/Day Years Used Date Smoking Tobacco: Never Assessed Comments Unknown Sex and Gender Information Value Date Recorded Sex Assigned at Not on file 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
--- OUTSIDE RECORDS SUMMARY | 2025-06-17 10:28 | XMS_ITS | Encounter Summary ---
Author Organization [facility] Address [address] [place] [address] Care Team Providers Care Licensed Loan Officer Assistant Name Role Phone Cesar Mendez MD Primary Care Provider [phone] Reason for Referral * Radiology Services (Routine) - Closed Specialty Diagnoses / Procedures Referred By George wallace Referred To Contact Radiology Diagnoses Arteriovenous fistula occlusion, initial encounter Procedures IR FISTULOGRAM Wu Clark MD [facility] Interventional Radiology [address] [place] [address] Phone: tel: fax: Referral ID Status Reason Start Date Expiration Date Visits Re quested Visits Authorized [id number] Closed 12/10/2020 01/10/2022 1 1 MBLE MEMBER Encounter Details Date Type Department Care Team (Latest Contact Info) Description 12/10/2020 Ancillary Orders [facility] Interventional Radiology [address] [place] [address] Wu Clark MD NO ADDRESS ON FILE Arteriovenous fistula occlusion, initial encounter Social History Tobacco Use Types Packs/Day Years Used Date Smoking Tobacco: Never Smokeless Tobacco: Never Alcohol Use Standard Drinks/Week Comments Never 0 (1 standard drink = 0.6 oz pur e alcohol) Comments No Sex and Gender Information Value Date Recorded Sex Assigned at Not on file Legal Sex Female 4:12 AM ENSEMBLE MEMBER Gender Identity Not on file Sexual Orientation Not on file COVID-19 Exposure Response Date Recorded In the last month, have you been in contact with someone who was confirmed or suspected to have Coronavirus / COVID-19? No / Unsure 12/10/2020 11:46 AM ENSEMBLE MEMBER documented as of this encounter Plan of Treatment Not on file documented as of this encounter Results * IR FISTULOGRAM (12/10/2020 3:06 PM ENSEMBLE MEMBER) Anatomical Region Laterality Modality X-Ray Angiograph y 12/10/2020 3:06 PM ENSEMBLE MEMBER Impressions 12/10/2020 6:48 PM ENSEMBLE MEMBER IMPRESSION: Please see below. Exam: Right upper extremity dialysis fistulogram, declot and covered stent insertion Date/Time of Exam: 12/10/2020 3:06 PM Reason For Exam: This is a 70-year-old female who returns with graft thrombosis having undergone declot and venous anastomotic covered stent insertion on 11/30/2020. Diagnosis: Arteriovenous fistula occlusion, initial encounter. Findings: The procedure and its risks and convocations were To the patient and written consent was obtained. Monitored IV conscious sedation was performed. Following sterile preparation, drape, and adequate local anesthesia, the thrombosed right upper arm dialysis graft was punctured at the arterial limb and a 6 Welsh sheath was placed with its tip directed centrally. A 5 Welsh straight end hole catheter was advanced over a J guidewire and position with its tip in the right axillary vein. Imaging was performed over the chest during contrast injection. The catheter was retracted and imaging was performed throughout the patent portion of the outflow basilic system. The central venogram demonstrates mild narrowing of the right subclavian vein near its confluence with the right innominate vein. This does not appear flow limiting. From this is demonstrated within the previously placed stent at the venous anastomosis of the graft. Subsequently, an 8 mm x 4 cm balloon catheter was advanced and balloon plasty was performed within the stented venous anastomosis of the graft. Alteplase 2.5 mg was then PulseSpray infusion throughout the venous limb of the graft. The balloon catheter was removed from the access sheath. After this, the venous limb of the graft was punctured and a 6 Welsh sheath was placed with its tip directed peripherally. A 5 Welsh Yamileth catheter was advanced over an angled Glidewire and alteplase 2.5 mg was pulse sprayed infused throughout the thrombus of the arterial limb. Yamileth thrombectomy was performed multiple times. A faint thrill was palpable. Repeat imaging demonstrated a filling defect at the arterial limb of the graft and additional scattered filling defects throughout the venous limb of the graft and the venous outflow. Additional maneuvers were performed utilizing balloon angioplasty and Yamileth thrombectomy until the graft was almost entirely free of significant filling defects with exception of the bandlike filling defect within the previously placed venous anastomotic stent. The Yamileth catheter was advanced and this was dislodged as proved on follow-up fistulogram, after all these maneuvers, there was mild narrowing of the venous anastomosis of the graft despite the presence of the previously placed covered stent. With a Gallegos guidewire in place entering through the arterial limb access sheath, the indwelling 6 Welsh sheath was replaced with an 8 Welsh access sheath through which an 8 mm x 4 cm Covera stent graft was advanced and diploic overlapping with the peripheral and of the previously placed stent graft. Repeat imaging demonstrated wide patency of the treated segment. A good thrill was palpable at completion. The access sheath were removed and hemostasis was achieved with local compression. Blood loss was negligible. IMPRESSION: Difficult declot. Persistent mild narrowing at the venous anastomosis of the graft despite previous stent graft insertion. Overlapping stent graft was placed to attempt improved hemodynamics. Patency was restored with good post procedure palpable thrill. Narrative Procedure Note Btesey Serra MD - 12/10/2020 IMPRESSION: Please see below. Exam: Right upper extremity dialysis fistulogram, declot and covered stent insertion Date/Time of Exam: 12/10/2020 3:06 PM Reason For Exam: This is a 70-year-old female who returns with graft thrombosis having undergone declot and venous anastomotic covered stent insertion on 11/30/2020. Diagnosis: Arteriovenous fistula occlusion, initial encounter. Findings: The procedure and its risks and convocations were To the patient and written consent was obtained. Monitored IV conscious sedation was performed. Following sterile preparation, drape, and adequate local anesthesia, the thrombosed right upper arm dialysis graft was punctured at the arterial limb and a 6 Welsh sheath was placed with its tip directed centrally. A 5 Welsh straight end hole catheter was advanced over a J guidewire and position with its tip in the right axillary vein. Imaging was performed over the chest during contrast injection. The catheter was retracted and imaging was performed throughout the patent portion of the outflow basilic system. The central venogram demonstrates mild narrowing of the right subclavian vein near its confluence with the right innominate vein. This does not appear flow limiting. From this is demonstrated within the previously placed stent at the venous anastomosis of the graft. Subsequently, an 8 mm x 4 cm balloon catheter was advanced and balloon plasty was performed within the stented venous anastomosis of the graft. Alteplase 2.5 mg was then PulseSpray infusion throughout the venous limb of the graft. The balloon catheter was removed from the access sheath. After this, the venous limb of the graft was punctured and a 6 Welsh sheath was placed with its tip directed peripherally. A 5 Welsh Yamileth catheter was advanced over an angled Glidewire and alteplase 2.5 mg was pulse sprayed infused throughout the thrombus of the arterial limb. Yamileth thrombectomy was performed multiple times. A faint thrill was palpable. Repeat imaging demonstrated a filling defect at the arterial limb of the graft and additional scattered filling defects throughout the venous limb of the graft and the venous outflow. Additional maneuvers were performed utilizing balloon angioplasty and Yamileth thrombectomy until the graft was almost entirely free of significant filling defects with exception of the bandlike filling defect within the previously placed venous anastomotic stent. The Yamileth catheter was advanced and this was dislodged as proved on follow-up fistulogram, after all these maneuvers, there was mild narrowing of the venous anastomosis of the graft despite the presence of the previously placed covered stent. With a Gallegos guidewire in place entering through the arterial limb access sheath, the indwelling 6 Welsh sheath was replaced with an 8 Welsh access sheath through which an 8 mm x 4 cm Covera stent graft was advanced and diploic overlapping with the peripheral and of the previously placed stent graft. Repeat imaging demonstrated wide patency of the treated segment. A good thrill was palpable at completion. The access sheath were removed and hemostasis was achieved with local compression. Blood loss was negligible. IMPRESSION: Difficult declot. Persistent mild narrowing at the venous anastomosis of the graft despite previous stent graft insertion. Overlapping stent graft was placed to attempt improved hemodynamics. Patency was restored with good post procedure palpable thrill. us Wu Clark MD IR ORDERABLES Final Result documented in this encounter Visit Diagnoses Diagnosis Arteriovenous fistula occlusion, initial encounter Arteriovenous fistula occlusion, initial encounter documented in this encounter Care Teams Licensed Loan Officer Assistant Relationship Specialty Start Date End Date Cesar Mendez MD [address] [phone] PCP - General Family Practice 01/13/20 documented as of this encounter
--- OUTSIDE RECORDS SUMMARY | 2025-06-17 10:28 | XMS_ITS | Encounter Summary ---
Author Organization [facility] Address [address] [place] [address] Care Team Providers Care Hot Strip Mill Inspector Name Role Phone Cesar Mendez MD Primary Care Provider [phone] Encounter Details Date Type Department Care Team (Latest Contact Info) Description 03/02/[address] [facility] Antonio Mathis MD [address] [place] [address] Personal history of malignant neoplasm of breast (Primary Dx) Social History Tobacco Use Types Packs/Day Years Used Date Smoking Tobacco: Never Assessed Comments Unknown Sex and Gender Information Value Date Recorded Sex Assigned at Not on file Legal Sex Female 4:12 AM PARTS IDENTIFIER Gender Identity Not on file Sexual Orientation Not on file documented as of this encounter Plan of Treatment Not on file documented as of this encounter Visit Diagnoses Diagnosis Personal history of malignant neoplasm of breast- Primary documented in this encounter Care Teams Hot Strip Mill Inspector Relationship Specialty Start Date End Date Cesar Mendez MD [address] [facility] 1 [place] [phone] PCP - General Family Practice 01/13/20 documented as of this encounter
--- OUTSIDE RECORDS SUMMARY | 2025-06-17 10:28 | XMS_ITS | Encounter Summary ---
Author Organization [facility] Address [address] [place] [address] Care Team Providers Care Funeral Counselor Name Role Phone Cesar Mendez MD Primary Care Provider [phone] Encounter Details Date Type Department Care Team (Latest Contact Info) Description 09/06/2001 Outpatient Historical [facility] [address] [facility] [address] [place] [phone] Nagi Clark MD NO ADDRESS ON FILE SYMPTOMS IN BREAST NEC (Primary Dx) Social History Tobacco Use Types Packs/Day Years Used Date Smoking Tobacco: Never Assessed Comments Unknown Sex and Gender Information Value Date Recorded Sex Assigned at Not on file Legal Sex Female 4:12 AM TACK DRILLER Gender Identity Not on file Sexual Orientation Not on file documented as of this encounter Plan of Treatment Not on file documented as of this encounter Visit Diagnoses Diagnosis Other sign and symptom in breast- Primary documented in this encounter Care Teams Funeral Counselor Relationship Specialty Start Date End Date Cesar Mendez MD [address] [facility] 1 [place] [phone] PCP - General Family Practice 01/13/20 documented as of this encounter
--- OUTSIDE RECORDS SUMMARY | 2025-06-17 10:28 | XMS_ITS | Encounter Summary ---
Author Organization [facility] Address [address] [place] [address] Care Team Providers Care Saloon Keeper Name Role Phone Cesar Mendez MD Primary Care Provider [phone] Encounter Details Date Type Department Care Team (Latest Contact Info) Description 02/12/2000 Outpatient Historical HIS [facility] Vince Chaney Jr., MD [address] [place] [address] Type II or unspecified type diabetes mellitus without mention of complication, not stated as uncontrolled (Primary Dx); Anemia, unspecified; Unspecified hypothyroidism; Other and unspecified hyperlipidemia Social History Tobacco Use Types Packs/Day Years Used Date Smoking Tobacco: Never Assessed Comments Unknown Sex and Gender Information Value Date Recorded Sex Assigned at Not on file Legal Sex Female 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 Gender Identity Not on file Sexual Orientation Not on file documented as of this encounter Plan of Treatment Not on file documented as of this encounter Visit Diagnoses Diagnosis Type II or unspecified type diabetes mellitus without mention of complication, not stated as uncontrolled- Primary Anemia, unspecified Unspecified hypothyroidism Other and unspecified hyperlipidemia documented in this encounter Care Teams Saloon Keeper Relationship Specialty Start Date End Date Cesar Mendez MD [address] [facility] 1 [place] [address] PCP - General Family Practice 01/13/20 documented as of this encounter
--- OUTSIDE RECORDS SUMMARY | 2025-06-17 10:28 | XMS_ITS | Encounter Summary ---
Author Organization [facility] Address [address] [place] [address] Care Team Providers Care Flow Floor Attendant Name Role Phone Cesar Mendez MD Primary Care Provider [phone] Encounter Details Date Type Department Care Team (Late st Contact Info) Description 03/05/2001 Outpatient Historical [facility] [place] [address] [facility] [address] [place] [address] Mirian Nj MD NO ADDRESS ON FILE Other sign and symptom in breast (Primary Dx) Social History Tobacco Use Types Packs/Day Years Used Date Smoking Tobacco: Never Assessed Comments Unknown Sex and Gender Information Value Date Recorded Sex Assigned at Not on file Legal Sex Female 4:12 AM RECRUITING INTERN Gender Identity Not on file Sexual Orientation Not on file documented as of this encounter Plan of Treatment Not on file documented as of this encounter Visit Diagnoses Diagnosis Other sign and symptom in breast- Primary documented in this encounter Care Teams Flow Floor Attendant Relationship Specialty Start Date End Date Cesar Mendez MD [address] [facility] 1 [place] [address] PCP - General Family Practice 01/13/20 documented as of this encounter
--- OUTSIDE RECORDS SUMMARY | 2025-06-17 10:28 | XMS_ITS | Clinical Summary ---
Author Organization [facility] Address [address] [place] [address] Phone Care Team Providers Care Pediatric Dietician Name Role Phone Cesar Mendez MD Primary Care Provider [phone] Allergies Active Allergy Reactions Criticality Noted Date Comments Codeine Rash Low 01/12/2019 Penicillins Rash Low 01/12/2019 Propoxyphene Rash Low 01/12/2019 Medications amitriptyline (ELAVIL) 100 mg tablet Take 100 mg by mouth daily at bedtime. Active tamsulosin (FLOMAX) 0.4 mg capsule Take 0.4 mg by mouth 2 times daily . Active metOLazone (ZAROXOLYN) 5 mg tablet Take 5 mg by mouth late in the day. 4 9 Active RENAPLEX-D 800 mcg-12.5 mg -2,000 unit Tablet TAKE 1 TABLET BY MOUTH EVERY DAY (ON DIALYSIS DAYS, TAKE AFTER DIALYSIS TREATMENT) 4 9 Active torsemide (DEMADEX) 100 mg tablet Take 100 mg by mouth 2 times daily. 100 mg in AM, 50 mg in afternoon 11 9 Active rOPINIRole (REQUIP) 0.5 mg tablet Take 0.5 mg by mouth daily at bedtime. 0 Active calcitRIOL (ROCALTROL) 0.5 mcg capsule TAKE 1 CAPSULE BY MOUTH THREE DAYS A WEEK (3 TIMES A WEEK) ON THURSDAY, THURSDAY & THURSDAY. 0 Active Tresiba FlexTouch U-100 100 unit/mL (3 mL) pen syringe Inject 20 Units by subcutaneous injection daily at bedtime. 0 Active spironolactone (ALDACTONE) 50 mg tablet Take 1 Tablet by mouth daily. 0 Active insulin aspart protamine-aspart (NovoLOG MIX 70-30) 100 unit/mL (70-30) pen syringe Inject by subcutaneous injection. as needed Active levothyroxine 200 mcg tablet Take 200 mcg by mouth daily. 0 Active potassium chloride (KLOR-CON) 10 mEq Extended Release tablet Take 1 Tablet by mouth. 0 Active sucroferric oxyhydroxide (Velphoro) 500 mg Tablet, Chewable Take 2 Tablets by mouth. 0 Active Vit A,C,K-Kxbs-Wsfya r (Ocuvite PreserVision) 7,160 unit- 113 mg-100 unit Tablet Take 1 Tablet by mouth 2 times daily. 9 Active HYDROcodone-acet aminophen (NORCO) 5-325 mg tabletIndication s:CKD (chronic kidney disease) stage 5, GFR less than 15 ml/min (CMS/HCC) Take 1 Tablet by mouth every 4 hours as needed for Pain, Moderate. Max Daily Amount: 6 Tablets 15 Tablet 01/31/2021 3:11 PM CDT 1 Active Active Problems Problem Noted Date Diagnosed Date CKD (chronic kidney disease) stage 5, GFR less than 15 ml/min 03/28/2019 Hypertension 03/18/2019 Breast cancer 11/09/1999 Overview (06/05/2020): Left Breast Lumpectomy with Lymph Node removal. Chemo and Radiation Immunizations Immunization Administration Dates Next Due (HAVRIX/VAQTA)(19 YRS UP) HE PATITIS A VACCINE ADULT DOSAGE 1 ML IMM 08/30/2019 (PNEUMOVAX 23)(50 YRS UP) PN EUMOCOCCAL POLYSACCHARIDE (PPV23) 0.5 ML, IM 07/03/2000 Influenza Seasonal Unspecifi ed Formulation IM 07/27/2020,08/23/2019,10/03/2002,08/31 Social History Tobacco Use Types Packs/Day Years Used Date Smoking Tobacco: Never Smokeless Tobacco: Never Alcohol Use Standard Drinks/Week Comments Never 0 (1 standard drink = 0.6 oz pur e alcohol) Comments No Sex and Gender Information Value Date Recorded Sex Assigned at Not on file Legal Sex Female 4:12 AM 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 MANAGER Gender Identity Not on file Sexual Orientation Not on file Last Filed Vital Signs Vital Sign Reading Time Taken Comments Blood Pressure 156/61 04/11/2021 1:19 PM CDT Pulse 77 04/11/2021 1:19 PM CDT Temperature 36.2 C (97.2 F) 04/11/2021 1:19 PM CDT Respiratory Rate 12 04/11/2021 1:19 PM CDT Oxygen Saturation 98% 04/11/2021 1:19 PM CDT Inhaled Oxygen Concentration - - Weight 76.2 kg (168 lb) 04/11/2021 10:40 AM CDT Height 160 cm (5' 3 ) 04/11/2021 10:40 AM CDT Body Mass Index 29.76 04/11/2021 10:40 AM CDT Plan of Treatment Health Maintenance Due Date Last Done Comments DIABETES ANNUAL FOOT EXAM 1966 DIABETES ANNUAL RETINAL EXAM 1966 DTAP/TDAP/TD VACCINES (1 - Tdap) 1967 ZOSTER VACCINE (1 of 2) 1998 LDL CHOLESTEROL ANNUAL 04/05/2004 3, 03/24/2001, 02/12/2000 DIABETES MICROALBUMIN ANNUAL SCREEN 07/06/2004 07/06/2003, 04/05/2003, 01/02/2003, Additional history exists OSTEOPOROSIS SCREENING 2013 DIABETES HBA1C Q 6 MONTHS 10/10/20212020, 01/02/2003, 08/12/2001, Additional history exists RSV VACCINE (60+ or ) (1 - 1-dose 75+ series) 2023 PNEUMOCOCCAL VACCINE 50+ YEA RS (3 of 3 - PCV20 or PCV21) 07/20/2024 07/20/2019, 07/03/2000 INFLUENZA VACCINE (#1) 2025 0, 07/27/2020, 08/23/2019, Additional history exists Medical Devices Implanted Type Area Dump Truck Driver Off Highway Device Identifier Shelf Expiration Date Model / Serial / Lot Cath Pd Eric Boone 2cuff 12483-824 - [id number] Implanted:Qty : 1 on 04/26/2019 by Ben Enciso DO at [facility] Catheter N/A: Abdomen MEDTRONIC - COVIDIEN 11/30/2023 [id number] / / [id number] Cath Dialysis Glidepath 14.5fr 23cm Std [id number] Implanted:Qty : 1 on 12/21/2020 by Robert Castro MD Catheter Right: Chest Wall CR BARD- [employer] [id number] 05/08/2022 [id number] / / [id number] Description:14.5fr x 23cm Gl idePath Dialysis Catheter implanted on right Clip Ligating Horizon Med Ti [id number] - Csc - [id number] Implanted:Qty : 1 on 01/31/2021 by Lonnie Sparks MD at [facility] Clip Right: Arm TELEFLEX- WECK CLOSURE SYS 04/30/2025 [id number] / / [id number] Clip Ligating Horizon Red [id number] - Csc - [id number] Implanted:Qty : 1 on 01/31/2021 by Lonnie Sparks MD at [facility] Clip Right: Arm TELEFLEX INC 04/30/2025 [id number] / / [id number] Hemostatic Surgifoam [id number] 1973 - [id number] Implanted:Qty : 1 on 07/04/2020 by Lonnie Sparks MD at [facility] Hemostatic Right: Arm [employer] [id number] 02/22/2024 1974 / / [id number] Covera Flaired Stent-11/30/19 Implanted:Qty : 1 on 11/30/2020 by Betsey Serra MD Stent Right: Arm [id number] 07/06/2022 [id number] / / [id number] 8 X 40mm Covera Covered Stent- Implanted:Qty : 1 on 12/10/2020 by Betsey Serra MD Stent Right: Arm [id number] 05/04/2022 [id number] / / [id number] Description:8 x 40mm Covera Covered Stent implanted in right arm Graft Graft Vasc Propaten [id number] - [id number] Implanted:Qty : 1 on 07/04/2020 by Lonnie Sparks MD at [facility] Tissue Right: Arm [employer] 01/07/2024 [id number] / / [id number] Explanted Type Area Dump Truck Driver Off Highway Device Identifier Shelf Expiration Date Model / Serial / Lot Hemostatic Surgifoam [id number] 1973 - [id number] Explanted:Qty: 1 on 01/31/2021 by Lonnie Sparks MD at [facility] Hemostatic Right: Arm [employer] [id number] 09/06/20241973 / / [id number] Insurance MEDICARE PART A AND B [place] [facility] Medicare Part D Advance Directives For more information, please contact: [phone] * Full Code (Latest Code Status on File) Date Activated Date Inactivated Comments 01/18/2020 12:14 PM 01/18/2020 4:42 PM * Full Code Date Activated Date Inactivated Comments 01/18/2020 10:33 AM 01/18/2020 12:14 PM * Full Code Date Activated Date Inactivated Comments 10/04/2019 2:21 PM 10/04/2019 4:43 PM * Full Code Date Activated Date Inactivated Comments 10/04/2019 11:50 AM 10/04/2019 2:21 PM * Full Code Date Activated Date Inactivated Comments 04/26/2019 7:55 AM 04/26/2019 11:45 AM Care Teams Pediatric Dietician Relationship Specialty Start Date End Date Cesar Mendez MD [address] [phone] PCP - General Family Practice 01/13/20
--- OUTSIDE RECORDS SUMMARY | 2025-06-17 10:28 | XMS_ITS | Encounter Summary ---
Author Organization [employer] [facility] Address [address] [place] [address] Care Team Providers Care Reference Test Clerk Name Role Phone Cesar Mendez MD Primary Care Provider [phone] Encounter Details Date Type Department Care Team (Latest Contact Info) Description 09/23/2000 Outpatient Historical [facility] Vince Chaney Jr., MD [address] [place] [address] Osteoporosis, unspecified (Primary Dx); Personal history of other disorder of urinary system Social History Tobacco Use Types Packs/Day Years Used Date Smoking Tobacco: Never Assessed Comments Unknown Sex and Gender Information Value Date Recorded Sex Assigned at Not on file Legal Sex Female 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
--- OUTSIDE RECORDS SUMMARY | 2025-06-17 10:28 | XMS_ITS | Encounter Summary ---
Author Organization [employer] [facility] Address [address] [place] [address] Care Team Providers Care Agriculture Consultant Name Role Phone Cesar Mendez MD Primary Care Provider [phone] Encounter Details Date Type Department Care Team (Latest Contact Info) Description 09/10/2000 Outpatient Historical [facility] Vince Chaney Jr., MD [address] [place] [address] Hematuria (Primary Dx); Urinary tract infection, site not specified Social History Tobacco Use Types Packs/Day Years Used Date Smoking Tobacco: Never Assessed Comments Unknown Sex and Gender Information Value Date Recorded Sex Assigned at Not on file 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
--- OUTSIDE RECORDS SUMMARY | 2025-06-17 10:28 | XMS_ITS | Encounter Summary ---
Author Organization [facility] Address [address] [place] [address] Care Team Providers Care Leather Patcher Name Role Phone Cesar Mendez MD Primary Care Provider [phone] Reason for Referral * Radiology Services (Routine) - Closed Specialty Diagnoses / Procedures Referred By Contac t Referred To Contact Diagnoses Chronic kidney disease, stage IV (severe) (CMS/HCC) Procedures US BIOPSY ABDOMEN Wu Clark MD Referral ID Status Reason Start Date Expiration Date Visits Re quested Visits Authorized [id number] Closed 01/04/2019 02/04/2020 1 1 RION DEVELOPER Encounter Details Date Type Department Care Team (Latest Contact Info) Description 01/04/2019 Ancillary Orders [facility] Ultrasound [address] 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 Date: 01/12/2019 1:10 PM Reason For Exam: See Diagnosis. Diagnosis: Chronic kidney disease, stage IV (severe). Veterans' Counselor: Dr. Machado Moderate (conscious) sedation for this procedure was performed with continuous physician supervision. Medical history, physical exam, drug dosages, routes of drug administration, monitoring data, and precise times of service are documented in the medical record on the [facility]-approved form, 'Sedative/Analgesic Administration for Diagnostic and Therapeutic Procedures'. Please see nursing flow sheets for dosage and time. PROCEDURE AND FINDINGS: Successful ultrasound guided beaver kidney biopsy. Preliminary pathology report deems the specimen adequate for glomerular evaluation. Side: Left. Complication/s: None.. Estimated Blood Loss: Minimal. Technique: Informed written consent was obtained with specific understanding of the risks of the procedure including bleeding, infection, and injury to adjacent structures. The patient was taken to the ultrasound suite where the left posterior flank was prepped and draped in normal sterile fashion. A timeout procedure was performed. Intravenous sedation was administered in divided doses. Ultrasound was performed to localize appropriate biopsy site in the posterior inferior aspect of the kidney. Local anesthesia was achieved with subcutaneous injection of 1% lidocaine. With continuous ultrasound imaging, five 18 gauge core biopsy passes were obtained with a biopsy device. Post procedure ultrasound imaging identified no immediate complications. Pathology deemed the specimen adequate for evaluation. ++++++++++++++++++++ IMPRESSION: Successful ultrasound guided beaver kidney biopsy with results pending. Narrative Procedure Note Yvon Machado MD - 01/12/2019 IMPRESSION: Please see below. Date: 01/12/2019 1:10 PM Reason For Exam: See Diagnosis. Diagnosis: Chronic kidney disease, stage IV (severe). Veterans' Counselor: Dr. Machado Moderate (conscious) sedation for this procedure was performed with continuous physician supervision. Medical history, physical exam, drug dosages, routes of drug administration, monitoring data, and precise times of service are documented in the medical record on the [facility]-approved form, 'Sedative/Analgesic Administration for Diagnostic and Therapeutic Procedures'. Please see nursing flow sheets for dosage and time. PROCEDURE AND FINDINGS: Successful ultrasound guided beaver kidney biopsy. Preliminary pathology report deems the specimen adequate for glomerular evaluation. Side: Left. Complication/s: None.. Estimated Blood Loss: Minimal. Technique: Informed written consent was obtained with specific understanding of the risks of the procedure including bleeding, infection, and injury to adjacent structures. The patient was taken to the ultrasound suite where the left posterior flank was prepped and draped in normal sterile fashion. A timeout procedure was performed. Intravenous sedation was administered in divided doses. Ultrasound was performed to localize appropriate biopsy site in the posterior inferior aspect of the kidney. Local anesthesia was achieved with subcutaneous injection of 1% lidocaine. With continuous ultrasound imaging, five 18 gauge core biopsy passes were obtained with a biopsy device. Post procedure ultrasound imaging identified no immediate complications. Pathology deemed the specimen adequate for evaluation. ++++++++++++++++++++ IMPRESSION: Successful ultrasound guided beaver kidney biopsy with results pending. us Wu Clark MD US ORDERABLES Final Result documented in this encounter Visit Diagnoses Diagnosis Chronic kidney disease, stage IV (severe) (CMS/HCC) Chronic kidney disease, Stage IV (severe) Chronic kidney disease, stage IV (severe) (CMS/HCC) Chronic kidney disease, Stage IV (severe) documented in this encounter Care Teams Leather Patcher Relationship Specialty Start Date End Date Cesar Mendez MD [address] [phone] PCP - General Family Practice 01/13/20 documented as of this encounter
--- OUTSIDE RECORDS SUMMARY | 2025-06-17 10:28 | XMS_ITS | Encounter Summary ---
Author Organization [employer] [facility] Address [address] [place] [address] Care Team Providers Care Straddle Carrier Operator Name Role Phone Cesar Mendez MD Primary Care Provider [phone] Encounter Details Date Type Department Care Team (Latest Contact Info) Description 07/03/2000 Outpatient Historical [facility] Vince Chaney Jr., MD [address] [place] [address] Type II or unspecified type diabetes mellitus without mention of complication, not stated as uncontrolled (Primary Dx); Unspecified essential hypertension; Edema; Osteoarthrosis, unspecified whether generalized or localized, unspecified site Social History Tobacco Use Types Packs/Day Years Used Date Smoking Tobacco: Never Assessed Comments Unknown Sex and Gender Information Value Date Recorded Sex Assigned at Not on file 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 Gender Identity Not on file Sexual Orientation Not on file documented as of this encounter Plan of Treatment Not on file documented as of this encounter Visit Diagnoses Diagnosis Type II or unspecified type diabetes mellitus without mention of complication, not stated as uncontrolled- Primary Unspecified essential hypertension Edema Osteoarthrosis, unspecified whether generalized or localized, unspecified site documented in this encounter Care Teams Straddle Carrier Operator Relationship Specialty Start Date End Date Cesar Mendez MD [address] [phone] PCP - General Family Practice 01/13/20 documented as of this encounter
--- OUTSIDE RECORDS SUMMARY | 2025-06-17 10:28 | XMS_ITS | Clinical Summary ---
Author Organization [facility] Address [address] [place] [address] Phone Care Team Providers Care Command Post Craftsman Name Role Phone Wu Clark MD Primary Care Provider Unava ilable Allergies Active Allergy Reactions Criticality Noted Date Comments Codeine Rash Low 01/12/2019 Penicillins Rash Low 01/12/2019 Propoxyphene Rash Low 01/12/2019 Medications levothyroxine 200 mcg tablet Take 200 mcg by mouth daily. 0 Active torsemide (DEMADEX) 100 mg tablet Take 100 mg by mouth daily. 11 9 Active tamsulosin (FLOMAX) 0.4 mg capsule Take 0.4 mg by mouth 2 times daily. Usually only once daily Active insulin aspart U-100 (NovoLOG) 100 unit/mL vial Inject by subcutaneous injection. Sliding scale Active amitriptyline (ELAVIL) 100 mg tablet Take 100 mg by mouth daily at bedtime. Active Vit A,C,E-Zinc-Luis er (PreserVision AREDS) 14,320-226-200 oatu-ut-wiaf Capsule Take 1 Tablet by mouth. Active vit B,C-FX-phww-arianne en-vit D3-E (RenaPlex-D) 800 mcg-12.5 mg -2,000 unit Tablet Take 1 Tablet by mouth. 9 Active rOPINIRole (REQUIP) 0.5 mg tablet Take 1 Tablet by mouth daily at bedtime. Takes 1 before dialysis 0 Active carvediloL (COREG) 3.125 mg tablet Take 1 Tablet by mouth daily. 3 times a week before dialysis 2 Active Tresiba FlexTouch U-100 100 unit/mL (3 mL) pen syringe daily at bedtime. 8-10 u at hs 2 Active lidocaine-prilo kevin (EMLA) 2.5-2.5 % Cream APPLY SMALL AMOUNT TO ACCESS SITE (AVF) 1 HOUR BEFORE DIALYSIS. COVER WITH OCCLUSIVE DRESSING (SARAN WRAP) 2 Active ondansetron (Zofran) 4 mg Tablet Take 1 Tablet (4 mg) by mouth every 8 hours as needed for Nausea/Emesis. 3 Tablet 2 Active HYDROcodone-terence taminophen (NORCO) 7.5-325 mg TabletIndicatio ns:Adenomatous polyp of ascending colon Take 1 Tablet by mouth every 4 hours as needed for Pain, Moderate. Max Daily Amount: 6 Tablets 30 Tablet 07/14/2022 12:41 PM CDT 2 Active amitriptyline (ELAVIL) 100 mg tablet Take 100 mg by mouth daily at bedtime. 9 Active tamsulosin (FLOMAX) 0.4 mg capsule Take 0.4 mg by mouth 2 times daily . 9 Active Active Problems Problem Noted Date Diagnosed Date GI bleed 07/20/2022 Type 1 diabetes mellitus with hyperglycemia 11/2021 s/p lap right hemicolectomy 07/10/2022 07/10/2022 End stage renal disease 03/28/2019 Hypertension 03/18/2019 Breast cancer 11/09/1999 Overview (03/08/2021): Left Breast Lumpectomy with Lymph Node removal. Chemo and Radiation Encounters Date Type Department Care Team Description 05/30/2025 External Device Data STL ABSTRACTION Provider, Abstract 05/30/2025 External Device Data STL ABSTRACTION Provider, Abstract 05/24/2025 External Device Data STL ABSTRACTION Provider, Abstract 05/23/2025 External Device Data STL ABSTRACTION Provider, Abstract 04/25/2025 External Device Data STL ABSTRACTION Provider, Abstract 04/11/2025 Telephone [facility] Ophthal[facility] [place] [address] [phone] Sabino Díaz, OD Documentation Only from Last 3 Months Immunizations Immunization Administration Dates Next Due (HAVRIX/VAQTA)(19 YRS UP) HE PATITIS A VACCINE ADULT DOSAGE 1 ML IMM 08/30/2019 (PNEUMOVAX 23)(50 YRS UP) PN EUMOCOCCAL POLYSACCHARIDE (PPV23) 0.5 ML, IM 07/03/2000 (PREVNAR 13)(6 WKS UP) PNEUM OCOCCAL CONJUGATE (PCV13) 0.5 ML, IM 07/20/2019 (SPIKEVAX) (12 YRS UP PRIMAR Y SERIES) COVID-19 VACCINE - MRNA-1273(PF) 100 MCG/0.5 ML IM SUSP 09/18/2021,03/06/2021,01/28/2021 Hepatitis B Vaccine 11/10/2019, 9,07/06/2019,06/08 INFLUENZA VACCINE HIGH DOSE QUADRIVALENT 65 YR UP PF IM 08/07/2021,08/03/2020 Influenza Seasonal Unspecifi ed Formulation IM 07/27/2020,08/23/2019,10/03/2002,08/31 Family History Medical History Relation Name Comments Colon Cancer Neg Hx Social History Tobacco Use Types Packs/Day Years Used Date Smoking Tobacco: Never Smokeless Tobacco: Never Tobacco Cessation:Counseling Given: Not Answered Alcohol Use Standard Drinks/Week Comments Never 0 (1 standard drink = 0.6 oz pur e alcohol) Comments No Sex and Gender Information Value Date Recorded Sex Assigned at Not on file Legal Sex Female 9:26 AM TEST ADMINISTRATOR Gender Identity Not on file Sexual Orientation Not on file Last Filed Vital Signs Vital Sign Reading Time Taken Comments Blood Pressure 147/82 03/14/2025 1:15 PM CDT Pulse 82 03/14/2025 1:15 PM CDT Temperature 36.3 C (97.3 F) 03/14/2025 1:15 PM CDT Respiratory Rate 12 03/14/2025 1:15 PM CDT Oxygen Saturation 94% 03/14/2025 1:15 PM CDT Inhaled Oxygen Concentration - - Weight 56.7 kg (125 lb) 10/24/2024 11:04 AM TEST ADMINISTRATOR Height 160 cm (5' 3 ) 10/24/2024 11:04 AM TEST ADMINISTRATOR Body Mass Index 22.14 10/24/2024 11:04 AM TEST ADMINISTRATOR Plan of Treatment Health Maintenance Due Date Last Done Comments DIABETES ANNUAL FOOT EXAM 1966 DIABETES ANNUAL RETINAL EXAM 1966 DIABETES MICROALBUMIN ANNUAL SCREEN 1966 LDL CHOLESTEROL ANNUAL 1966 DTAP/TDAP/TD VACCINES (1 - Tdap) 1967 ZOSTER VACCINE (1 of 2) 1998 OSTEOPOROSIS SCREENING 2013 RSV VACCINE (60+ or ) (1 - 1-dose 75+ series) 2023 COVID-19 Vaccine (4 - 2023-2 5 season) 2024 09/18/2021, 03/06/2021, 02/27/2021, Additional history exists PNEUMOCOCCAL VACCINE 50+ YEA RS (3 of 3 - PCV20 or PCV21) 07/20/2024 07/20/2019, 07/03/2000 DIABETES HBA1C Q 6 MONTHS 04/12/2025 10/12/2024 INFLUENZA VACCINE (#1) 2025 , 08/19/2023, 08/07/2021, Additional history exists COLORECTAL SCREENING Discontinued 06/12/2022, 06/12/20 Colorectal Cancer Screening Discontinued FIT-DNA Q 3 years Discontinued FIT/FOBT Q 1 year Discontinued Flex Sig/CT Colonography Q 5 years Discontinued Medical Devices Implanted Type Area Demand Planning Manager Device Identifier Shelf Expiration Date Model / Serial / Lot Cath Pd Eric Boone 2cuff 97311-260 - [id number] Implanted:Qty : 1 on 04/26/2019 by Ben Enciso DO Catheter N/A: Abdomen [employer] - COVIDIEN 11/30/2023 [id number] / / [id number] Cath Dialysis Glidepath 14.5fr 23cm Std [id number] Implanted:Qty : 1 on 12/21/2020 by Robert Castro MD Catheter Right: Chest Wall CR BARD- [employer] [id number] 05/08/2022 [id number] / / [id number] Description:14.5fr x 23cm Gl idePath Dialysis Catheter implanted on right Clip Ligating [facility] [id number] [place] [facility] [place] [id number] Implanted:Qty : 1 on 01/31/2021 by Lonnie Sparks MD Clip Right: Arm TELEFLEX- WECK CLOSURE SYS 04/30/2025 [id number] / / [id number] Clip Ligating Horizon Red [id number] - Csc - [id number] Implanted:Qty : 1 on 01/31/2021 by Lonnie Sparks MD Clip Right: Arm TELE[employer]LEX INC 04/30/2025 [id number] / / [id number] Clip Ligating Horizon Red 875849 - Csc - [id number] Implanted:Qty : 1 on 05/09/2021 by Lonnie Sparks MD at [facility] Clip Right: Arm TELE[employer]LEX INC 07/16/2025 [id number] / / [id number] Clip Ligating Horizon Med Ti 110561 - Csc - [id number] Implanted:Qty : 1 on 05/09/2021 by Lonnie Sparks MD at [facility] Clip Right: Arm TELEFLEX- WECK CLOSURE SYS 07/09/2025 [id number] / / [id number] Hemostatic Surgifoam Sz100 1973 - [id number] Implanted:Qty : 1 on 07/04/2020 by Lonnie Sparks MD Hemostatic Right: Arm J[employer]- [employer] [id number] 02/22/20241973 / / [id number] Covera Flaired Stent-11/30/19 Implanted:Qty : 1 on 11/30/2020 by Betsey Serra MD Stent Right: Arm [id number] 07/06/2022 [id number] / / [id number] 8 X 40mm Covera Covered Stent- Implanted:Qty : 1 on 12/10/2020 by Betsey Serra MD Stent Right: Arm [id number] 05/04/2022 [id number] / / [id number] Description:8 x 40mm Covera Covered Stent implanted in right arm Graft Graft Vasc Propaten [id number] - [id number] Implanted:Qty : 1 on 07/04/2020 by Lonnie Sparks MD Tissue Right: Arm [employer] 01/07/2024 [id number] / / [id number] Explanted Type Area Demand Planning Manager Device Identifier Shelf Expiration Date Model / Serial / Lot Hemostatic Surgifoam Sz100 1973 - [id number] Explanted:Qty: 1 on 01/31/2021 by Lonnie Sparks MD Hemostatic Right: Arm [employer]- [employer] [id number] 09/06/20241973 / / [id number] Hemostatic Surgifoam Sz100 1973 - [id number] Explanted:Qty: 1 on 05/09/2021 by Lonnie Sparks MD at [facility] Hemostatic Right: Arm J[employer]J- [employer] [id number] 12/06/20241973 / / [id number] Procedures Procedure Name Priority Date/Time Associated Diagnosis Comments COLONOSCOPY REPORT 06/12/2022 12 :49 PM CDT from Last 3 Months or Most Recently Relevant to Health Maintenance Results * COLONOSCOPY REPORT (06/12/2022 12:49 PM CDT) Narrative Procedure Note Kane Kim DO - 06/12/2022 12:48 PM CDT [facility] Patient Name: María Saab Procedure Date: 06/12/2022 Date of : 1950 Admit Type: Outpatient Age: 71 Attending MD: Kane Kim MD Procedure: Colonoscopy Indications: Change in bowel habits Providers: Kane Kim MD Referring MD: Wu Clark MD Medicines: Fentanyl 100 micrograms IV, Midazolam 6 mg IV Complications: No immediate complications. Procedure: After I obtained informed consent, the scope was passed under direct vision. Throughout the procedure, the patient's blood pressure, pulse, and oxygen saturations were monitored continuously. The Colonoscope was introduced through the anus and advanced to the cecum, identified by appendiceal orifice and ileocecal valve. The colonoscopy was performed without difficulty. The patient tolerated the procedure well. The quality of the bowel preparation was good. Estimated Blood Loss: Estimated blood loss was minimal. Findings: A 12 mm polyp was found in the transverse colon. The polyp was sessile. The polyp was removed with a hot snare. Resection and retrieval were complete. A 4 mm polyp was found in the transverse colon. The polyp was sessile. The polyp was removed with a cold snare. Resection and retrieval were complete. A polyp was found in the appendiceal orifice. The polyp was sessile. Biopsies were taken with a cold forceps for histology. Polyp was going into the orifice and would not be able to be completely removed endoscopically. A 25 mm polyp was found in the ascending colon. The polyp was sessile. The terminal ileum appeared normal. Moderate Sedation: Moderate (conscious) sedation was administered by the endoscopy nurse and supervised by the endoscopist. The following parameters were monitored: oxygen saturation, heart rate, blood pressure, respiratory rate, EKG, adequacy of pulmonary ventilation, and response to care. Total physician intraservice time was 34 minutes. Impression: - One 12 mm polyp in the transverse colon, removed with a hot snare. Resected and retrieved. - One 4 mm polyp in the transverse colon, removed with a cold snare. Resected and retrieved. - One polyp at the appendiceal orifice. Biopsied. - One 25 mm polyp in the ascending colon. - The examined portion of the ileum was normal. Recommendation: - Patient has a contact number available for emergencies. The signs and symptoms of potential delayed complications were discussed with the patient. Return to normal activities tomorrow. Written discharge instructions were provided to the patient. - Resume previous diet. - Continue present medications. - Repeat colonoscopy date to be determined after pending pathology results are reviewed for surveillance. - Patient will need MAC if further endoscopy procedures done. Kane Kim MD 06/12/2022 12:48:38 PM Number of Addenda: 0 Note Initiated On: 06/12/2022 12:03 PM Scope Withdrawal Time 0 hours 18 minutes 20 seconds Scope In: 12:14:29 PM Scope Out: 12:43:42 PM [address] Kane Kim DO GI PROCEDURE ORDERABLES Final Result from Last 3 Months or Most Recently Relevant to Health Maintenance Insurance [address] [place] [address] MEDICARE PART A AND B [facility] [place] [address] * Guarantor: MARÍA SAAB Dieter Account Type Relation to Patient Date of Phone Billing Address Personal/Family [address] [place], [place] [id number] [place] [address] RX [facility] Medicare Part D Advance Directives For more information, please contact: [phone] * Full Code (Latest Code Status on File) Date Activated Date Inactivated Comments 07/19/2022 7:28 PM 07/23/2022 7:37 PM * Full Code Date Activated Date Inactivated Comments 07/10/2022 5:41 PM 07/14/2022 4:37 PM * Full Code Date Activated Date Inactivated Comments 07/10/2022 10:52 AM 07/10/2022 5:40 PM * Full Code Date Activated Date Inactivated Comments 06/12/2022 11:50 AM 06/12/2022 3:14 PM Care Teams Command Post Craftsman Relationship Specialty Start Date End Date Wu Clark MD PCP - General Nephrology 05/06/22
--- OUTSIDE RECORDS SUMMARY | 2025-06-17 10:28 | XMS_ITS | Encounter Summary ---
Author Organization [facility] Address [address] [place] [address] Care Team Providers Care Greenhouse Technician Name Role Phone Cesar Mendez MD Primary Care Provider [phone] Reason for Referral * Radiology Services (Routine) - Closed Specialty Diagnoses / Procedures Referred By George wallace Referred To Contact Radiology Diagnoses End stage renal disease (CMS/HCC) Procedures IR VENOUS ACCESS IR FISTULOGRAM Wu Clark MD [facility] Interventional Radiology [address] [place] [address] Phone: tel: fax: Referral ID Status Reason Start Date Expiration Date Visits Re quested Visits Authorized [id number] Closed 12/19/2020 01/19/2022 1 1 TMENT MAINTENANCE Encounter Details Date Type Department Care Team (Latest Contact Info) Description 12/19/2020 Ancillary Orders [facility] Interventional Radiology [address] [place] [address] [place] [address] Wu Clark MD NO ADDRESS ON FILE End stage renal disease (CMS/HCC) Social History Tobacco Use Types Packs/Day Years Used Date Smoking Tobacco: Never Smokeless Tobacco: Never Alcohol Use Standard Drinks/Week Comments Never 0 (1 standard drink = 0.6 oz pur e alcohol) Comments No Sex and Gender Information Value Date Recorded Sex Assigned at Not on file Legal Sex Female 4:12 AM APARTMENT MAINTENANCE Gender Identity Not on file Sexual Orientation Not on file COVID-19 Exposure Response Date Recorded In the last month, have you been in contact with someone who was confirmed or suspected to have Coronavirus / COVID-19? No / Unsure 12/21/2020 10:18 AM APARTMENT MAINTENANCE documented as of this encounter Plan of Treatment Not on file documented as of this encounter Results * IR VENOUS ACCESS (12/21/2020 1:09 PM APARTMENT MAINTENANCE) Anatomical Region Laterality Modality X-Ray Angiograph y 12/21/2020 1:09 PM APARTMENT MAINTENANCE Impressions 12/21/2020 5:03 PM APARTMENT MAINTENANCE IMPRESSION: Please see below. EXAM: Ultrasound and fluoroscopy guided tunneled hemodialysis catheter placement OPERATORS: Robert Castro MD ACCESS SITE: Right internal jugular vein with ultrasound MEDICATIONS: Versed and Fentanyl were titrated to effect. Ancef 2 gram IV. CONTRAST: None FLUOROSCOPY TIME: 0.8 minutes CATHETER: 14.5 Hong Konger, 23 cm tip to cuff catheter ESTIMATED BLOOD LOSS: Minimal COMPLICATIONS: None TECHNIQUE: The risks, benefits, and alternatives to the procedure and sedation were explained. Written informed consent was obtained. The right neck and upper chest were prepped and draped in sterile fashion. Using local anesthetic and ultrasound guidance, the right internal jugular vein was punctured with a 21 gauge needle. An image was saved and stored to PACS. A 0.018-inch wire was passed centrally and the needle exchanged for a 5 Hong Konger transitional dilator. A 0.035-inch wire was advanced through the dilator and negotiated into the IVC. The microwire was used to measure the intravascular length. The soft tissues caudal and lateral to the sheath entry site were anesthetized with lidocaine with epinephrine. A dermatotomy was made and a tunneling tool brought from the dermatotomy to the venotomy. The catheter was brought through the tunnel. The skin tract was dilated and a 15 Hong Konger dilator peel-away combination placed over the wire. During suspended respiration, the catheter was advanced through the peel-away and positioned centrally using fluoroscopy. The peel-away was removed and hemostasis achieved with manual compression. The venotomy was closed with Dermabond applied. The catheter was secured with 2-0 suture. An antimicrobial disc and sterile dressing were applied. The catheter was aspirated, flushed, and heparinized per protocol. The procedure was well tolerated, and the patient was discharged in satisfactory condition. FINDINGS: 1. The right internal jugular vein is ultrasonographically patent. Needle entry was documented. 2. The newly placed catheter has a smooth course with the tips terminating in the right atrium. 3. There is excellent function with 20 ml syringes. IMPRESSION: Uneventful image guided placement of a right internal jugular tunneled hemodialysis catheter as described. Narrative Procedure Note Robert Castro MD - 12/21/2020 IMPRESSION: Please see below. EXAM: Ultrasound and fluoroscopy guided tunneled hemodialysis catheter placement OPERATORS: Robert Castro MD ACCESS SITE: Right internal jugular vein with ultrasound MEDICATIONS: Versed and Fentanyl were titrated to effect. Ancef 2 gram IV. CONTRAST: None FLUOROSCOPY TIME: 0.8 minutes CATHETER: 14.5 Hong Konger, 23 cm tip to cuff catheter ESTIMATED BLOOD LOSS: Minimal COMPLICATIONS: None TECHNIQUE: The risks, benefits, and alternatives to the procedure and sedation were explained. Written informed consent was obtained. The right neck and upper chest were prepped and draped in sterile fashion. Using local anesthetic and ultrasound guidance, the right internal jugular vein was punctured with a 21 gauge needle. An image was saved and stored to PACS. A 0.018-inch wire was passed centrally and the needle exchanged for a 5 Hong Konger transitional dilator. A 0.035-inch wire was advanced through the dilator and negotiated into the IVC. The microwire was used to measure the intravascular length. The soft tissues caudal and lateral to the sheath entry site were anesthetized with lidocaine with epinephrine. A dermatotomy was made and a tunneling tool brought from the dermatotomy to the venotomy. The catheter was brought through the tunnel. The skin tract was dilated and a 15 Hong Konger dilator peel-away combination placed over the wire. During suspended respiration, the catheter was advanced through the peel-away and positioned centrally using fluoroscopy. The peel-away was removed and hemostasis achieved with manual compression. The venotomy was closed with Dermabond applied. The catheter was secured with 2-0 suture. An antimicrobial disc and sterile dressing were applied. The catheter was aspirated, flushed, and heparinized per protocol. The procedure was well tolerated, and the patient was discharged in satisfactory condition. FINDINGS: 1. The right internal jugular vein is ultrasonographically patent. Needle entry was documented. 2. The newly placed catheter has a smooth course with the tips terminating in the right atrium. 3. There is excellent function with 20 ml syringes. IMPRESSION: Uneventful image guided placement of a right internal jugular tunneled hemodialysis catheter as described. us Wu Clark MD IR ORDERABLES Final Result documented in this encounter Visit Diagnoses Diagnosis End stage renal disease (CMS/HCC) End stage renal disease End stage renal disease (CMS/HCC) End stage renal disease documented in this encounter Care Teams Greenhouse Technician Relationship Specialty Start Date End Date Cesar Mendez MD [address] [address] PCP - General Family Practice 01/13/20 documented as of this encounter
--- OUTSIDE RECORDS SUMMARY | 2025-06-17 10:28 | XMS_ITS | Encounter Summary ---
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/HCC) (Primary Dx); Unspecified essential hypertension; Malignant neoplasm of breast (female), unspecified site Social History Tobacco Use Types Packs/Day Years Used Date Smoking Tobacco: Never Assessed Comments Unknown Sex and Gender Information Value Date Recorded Sex Assigned at Not on file Legal Sex Female 4:12 AM BLUEPRINT DUPLICATOR Gender Identity Not on file Sexual Orientation Not on file documented as of this encounter Plan of Treatment Not on file documented as of this encounter Visit Diagnoses Diagnosis Type I (juvenile type) diabetes mellitus without mention of complication, not stated as uncontrolled (CMS/HCC)- Primary Type I (juvenile type) diabetes mellitus without mention of complication, not stated as uncontrolled Unspecified essential hypertension Malignant neoplasm of breast (female), unspecified site documented in this encounter Care Teams Processor Solid Propellant Relationship Specialty Start Date End Date Cesar Mendez MD [address] [phone] PCP - General Family Practice 01/13/20 documented as of this encounter
--- OUTSIDE RECORDS SUMMARY | 2025-06-17 10:28 | XMS_ITS | Encounter Summary ---
Author Organization [employer] [facility] Address [address] [place] [address] Care Team Providers Care Metal Casting Trades Worker Name Role Phone Cesar Mendez MD Primary Care Provider [phone] Encounter Details Date Type Department Care Team (Latest Contact Info) Description 09/17/2000 Outpatient Historical HIS [facility] Vince Chaney Jr., MD [address] [place] [address] Urinary tract infection, site not specified (Primary Dx); Hypopotassemia; Encounter for long-term (current) use of other medications Social History Tobacco Use Types Packs/Day Years Used Date Smoking Tobacco: Never Assessed Comments Unknown Sex and Gender Information Value Date Recorded Sex Assigned at Not on file Legal Sex Female 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 ACCOUNT DIRECTOR Gender Identity Not on file Sexual Orientation Not on file documented as of this encounter Plan of Treatment Not on file documented as of this encounter Visit Diagnoses Diagnosis Urinary tract infection, site not specified- Primary Hypopotassemia Encounter for long-term (current) use of other medications documented in this encounter Care Teams Metal Casting Trades Worker Relationship Specialty Start Date End Date Cesar Mendez MD [address] [facility] 1 [place] [address] PCP - General Family Practice 01/13/20 documented as of this encounter
--- OUTSIDE RECORDS SUMMARY | 2025-06-17 10:28 | XMS_ITS | Encounter Summary ---
Author Organization [facility] [employer] [employer] [facility] Address [address] [place] [address] Phone Care Team Providers Care Pharmacometrician Name Role Phone Cesar Mendez MD Primary Care Provider [phone] Encounter Details Date Type Department Care Team (Late st Contact Info) Description 12/22/2018 Orders Only [facility] [employer] [address] [facility] [address] [place] [address] Diabetes mellitus with renal manifestations (HCC) Social History Tobacco Use Types Packs/Day [...] as of this encounter Visit Diagnoses Diagnosis Diabetes mellitus with renal manifestations (HCC) documented in this encounter Care Teams Pharmacometrician Relationship Specialty Start Date End Date Cesar Mendez MD [address] [place] [address] PCP - General Family Medicine 12/29/18 documented as of this encounter
--- OUTSIDE RECORDS SUMMARY | 2025-06-17 10:28 | XMS_ITS | Encounter Summary ---
Author Organization [employer] [facility] Address [address] [place] [address] Care Team Providers Care Geography Faculty Member Name Role Phone Cesar Mendez MD Primary Care Provider [phone] Encounter Details Date Type Department Care Team (Latest Contact Info) Description 04/22/2001 Outpatient Historical HIS [facility] Vince Chaney Jr., MD [address] [place] [address] Unspecified essential hypertension (Primary Dx); Type II or unspecified type diabetes mellitus without mention of complication, not stated as uncontrolled; Neurogenic bladder, NOS Social History Tobacco Use Types Packs/Day Years Used Date Smoking Tobacco: Never Assessed Comments Unknown Sex and Gender Information Value Date Recorded Sex Assigned at Not on file Legal Sex Female 4:12 AM WATER MAINTENANCE SUPERVISOR Gender Identity Not on file Sexual Orientation Not on file documented as of this encounter Plan of Treatment Not on file documented as of this encounter Visit Diagnoses Diagnosis Unspecified essential hypertension- Primary Type II or unspecified type diabetes mellitus without mention of complication, not stated as uncontrolled Neurogenic bladder, NOS documented in this encounter Care Teams Geography Faculty Member Relationship Specialty Start Date End Date Cesar Mendez MD [address] [facility] [place] 1 [place] [address] PCP - General Family Practice 01/13/20 documented as of this encounter
--- OUTSIDE RECORDS SUMMARY | 2025-06-17 10:28 | XMS_ITS | Encounter Summary ---
Author Organization [employer] [facility] Address [address] [place] [address] Care Team Providers Care Staying Machine Operator Name Role Phone Cesar Mendez MD Primary Care Provider [phone] Encounter Details Date Type Department Care Team (Latest Contact Info) Description 09/11/1999 Outpatient Historical HIS [facility] GENER[facility]ERY Antonio Mathis MD [address] [place] [address] Other specified aftercare following surgery (Primary Dx) Social History Tobacco Use Types Packs/Day Years Used Date Smoking Tobacco: Never Assessed Comments Unknown Sex and Gender Information Value Date Recorded Sex Assigned at Not on file Legal Sex Female 4:12 AM PHARMACY ASSOCIATE Gender Identity Not on file Sexual Orientation Not on file documented as of this encounter Plan of Treatment Not on file documented as of this encounter Visit Diagnoses Diagnosis Other specified aftercare following surgery- Primary documented in this encounter Care Teams Staying Machine Operator Relationship Specialty Start Date End Date Cesar Mendez MD [address] [place] [address] 1 [place] [phone] PCP - General Family Practice 01/13/20 documented as of this encounter
--- OUTSIDE RECORDS SUMMARY | 2025-06-17 10:28 | XMS_ITS | Encounter Summary ---
Author Organization [facility] Address [address] [place] [address] Care Team Providers Care Crtt Name Role Phone Cesar Mendez MD Primary Care Provider [phone] Encounter Details Date Type Department Care Team (Latest Contact Info) Description 05/14/2000 Outpatient Historical HIS [facility] Vince Chaney Jr., MD [address] [place] [address] Type II or unspecified type diabetes mellitus without mention of complication, not stated as uncontrolled (Primary Dx); Unspecified essential hypertension Social History Tobacco Use Types Packs/Day Years Used Date Smoking Tobacco: Never Assessed Comments Unknown Sex and Gender Information Value Date Recorded Sex Assigned at Not on file Legal Sex Female 4:12 AM CERTIFIED NOVELL ADMINISTRATOR Gender Identity Not on file Sexual Orientation Not on file documented as of this encounter Plan of Treatment Not on file documented as of this encounter Visit Diagnoses Diagnosis Type II or unspecified type diabetes mellitus without mention of complication, not stated as uncontrolled- Primary Unspecified essential hypertension documented in this encounter Care Teams Crtt Relationship Specialty Start Date End Date Cesar Mendez MD [address] [facility] 1 [place] [address] PCP - General Family Practice 01/13/20 documented as of this encounter
--- OUTSIDE RECORDS SUMMARY | 2025-06-17 10:28 | XMS_ITS | Encounter Summary ---
Author Organization [employer] [facility] Address [address] [place] [address] Care Team Providers Care Mine Foreman Name Role Phone Cesar Mendez MD Primary Care Provider [phone] Encounter Details Date Type Department Care Team (Latest Contact Info) Description 08/12/2001 Outpatient Historical HIS [facility] Vince Chaney Jr., MD [address] [place] [address] Type II or unspecified type diabetes mellitus without mention of complication, not stated as uncontrolled (Primary Dx); Unspecified essential hypertension; Cystitis, unspecified; Other nonspecific finding on examination of urine Social History Tobacco Use Types Packs/Day Years Used Date Smoking Tobacco: Never Assessed Comments Unknown Sex and Gender Information Value Date Recorded Sex Assigned at Not on file Legal Sex Female 4:12 AM TELEVISION ENGINEERING TEACHER Gender Identity Not on file Sexual Orientation Not on file documented as of this encounter Plan of Treatment Not on file documented as of this encounter Visit Diagnoses Diagnosis Type II or unspecified type diabetes mellitus without mention of complication, not stated as uncontrolled- Primary Unspecified essential hypertension Cystitis, unspecified Other nonspecific finding on examination of urine documented in this encounter Care Teams Mine Foreman Relationship Specialty Start Date End Date Cesar Mendez MD [address] [facility] 1 [place] [address] PCP - General Family Practice 01/13/20 documented as of this encounter
--- OUTSIDE RECORDS SUMMARY | 2025-06-17 10:28 | XMS_ITS | Encounter Summary ---
Author Organization [facility] [employer] Address [address] [facility] [address] [place] [address] Phone Care Team Providers Care Party Bus Driver Name Role Phone Cesar Mendez MD Primary Care Provider [phone] Encounter Details Date Type Department Care Team (Late st Contact Info) Description 04/15/2019 Orders Only [facility] [address] [place] [address] Nicholas Rahman TOMB MAKER HELPER [address] [facility] [address] [place] [address] Chronic kidney disease stage 4 [...] as of this encounter Progress Notes * Nicholas Rahman NP - 04/15/2019 11:59 PM CDT Has referral in place for PD cath placement and for dialysis initiation. GFR remains less than 15 documented in this encounter Plan of Treatment Not on file documented as of this encounter Procedures Procedure Name Priority Date/Time Associated Diagnosis Comments BASIC METABOLIC PANEL Routine 03/21/2019 8:25 AM CDT Chronic kidney disease stage 4 (HCC) documented in this encounter Results * BMP (03/21/2019 8:25 AM CDT) Sodium 138 mEq/L [facility] Potassium 4.5 mEq/L [facility] Chloride 100 [facility] Carbon Dioxide 26 mmol/L [facility] Calcium 9.3 mg/dL [facility] BUN 66.0 mg/dL [facility] Creatinine 3.9 mg/dL [facility] Glucose 223 mg/dL [facility] eGFR Non-Afr [place] 11 [facility] eGFR 14 [facility] Blood specimen (specimen) Venous blood / Unknown 03/21/2019 8:25 AM CDT Narrative [facility] - 03/21/2019 10:26 AM CDT Kwadwo Murray Nicholas Varnerley TOMB MAKER HELPER LAB BLOOD ORDERABLES Final Res ult [facility] documented in this encounter Visit Diagnoses Diagnosis Chronic kidney disease stage 4 (HCC) documented in this encounter Care Teams Party Bus Driver Relationship Specialty Start Date End Date Cesar Mendez MD [address] [place] [address] PCP - General Family Medicine 12/29/18 documented as of this encounter
--- OUTSIDE RECORDS SUMMARY | 2025-06-17 10:28 | XMS_ITS | Encounter Summary ---
Author Organization [email or web address] [facility] Address [address] [place] [address] Care Team Providers Care Sander And Buffer Name Role Phone Cesar Mendez MD Primary Care Provider [phone] Encounter Details Date Type Department Care Team (Latest Contact Info) Description 11/11/2001 Outpatient Historical HIS [facility] Vince Chaney Jr., MD [address] [place] [address] DIABETES UNCOMPL ADULT-TYPE II (CMS/HCC) (Primary Dx); Pure hypercholesterolem; HYPERTENSION NOS Social History Tobacco Use Types Packs/Day Years Used Date Smoking Tobacco: Never Assessed Comments Unknown Sex and Gender Information Value Date Recorded Sex Assigned at Not on file Legal Sex Female 4:12 AM SPOOLING MACHINE OPERATOR Gender Identity Not on file Sexual Orientation Not on file documented as of this encounter Plan of Treatment Not on file documented as of this encounter Visit Diagnoses Diagnosis Type II or unspecified type diabetes mellitus without mention of complication, not stated as uncontrolled- Primary Pure hypercholesterolem Pure hypercholesterolemia Unspecified essential hypertension documented in this encounter Care Teams Sander And Buffer Relationship Specialty Start Date End Date Cesar Mendez MD [address] [facility] 1 [place] [phone] PCP - General Family Practice 01/13/20 documented as of this encounter
--- OUTSIDE RECORDS SUMMARY | 2025-06-17 10:28 | XMS_ITS | Encounter Summary ---
Author Organization [facility] Address [address] [place] [address] Care Team Providers Care Sales Operations Associate Name Role Phone Cesar Mendez MD Primary Care Provider [phone] Encounter Details Date Type Department Care Team (Latest Contact Info) Description 05/26/2001 Outpatient Historical HIS [facility] Vince Chaney Jr., MD [address] [place] [address] Myalgia and myositis, unspecified (Primary Dx); Urinary obstruction Social History Tobacco Use Types Packs/Day Years Used Date Smoking Tobacco: Never Assessed Comments Unknown Sex and Gender Information Value Date Recorded Sex Assigned at Not on file Legal Sex Female 4:12 AM AUTO SELF SERVICE STATION ATTENDANT Gender Identity Not on file Sexual Orientation Not on file documented as of this encounter Plan of Treatment Not on file documented as of this encounter Visit Diagnoses Diagnosis Myalgia and myositis, unspecified- Primary Mylagia and myositis, unspecified Urinary obstruction documented in this encounter Care Teams Sales Operations Associate Relationship Specialty Start Date End Date Cesar Mendez MD [address] [facility] 1 [place] [address] PCP - General Family Practice 01/13/20 documented as of this encounter
--- OUTSIDE RECORDS SUMMARY | 2025-06-17 10:28 | XMS_ITS | Encounter Summary ---
Author Organization [employer] [facility] Address [address] [place] [address] Care Team Providers Care Green Chain Marker Name Role Phone Cesar Mendez MD Primary Care Provider [phone] Encounter Details Date Type Department Care Team (Latest Contact Info) Description 10/30/1999 Outpatient Historical HIS [facility] Antonio Mathis MD [address] [place] [address] Other specified aftercare following surgery (Primary Dx) Social History Tobacco Use Types Packs/Day Years Used Date Smoking Tobacco: Never Assessed Comments Unknown Sex and Gender Information Value Date Recorded Sex Assigned at Not on file Legal Sex Female 4:12 AM M[place] HOUSE KILN OPERATOR Gender Identity Not on file Sexual Orientation Not on file documented as of this encounter Plan of Treatment Not on file documented as of this encounter Visit Diagnoses Diagnosis Other specified aftercare following surgery- Primary documented in this encounter Care Teams Green Chain Marker Relationship Specialty Start Date End Date Cesar Mendez MD [address] [place] [address] 1 [place] [phone] PCP - General Family Practice 01/13/20 documented as of this encounter
--- OUTSIDE RECORDS SUMMARY | 2025-06-17 10:28 | XMS_ITS | Encounter Summary ---
Author Organization [facility] [employer] [employer] Address [address] [place] [address] Phone Care Team Providers Care Field Investigator Name Role Phone Cesar Mendez MD Primary Care Provider [phone] Reason for Visit * Reason Comments Med Refill Encounter Details Date Type Department Care Team (Late st Contact Info) Description 03/16/2021 Refill [facility] [address] [place] [address] Wu Clark MD [address] [place] [address] Social History Tobacco Use Types [...] on filedocumented in this encounter Care Teams Field Investigator Relationship Specialty Start Date End Date Cesar Mendez MD [address] [place] [id number] PCP - General Family Medicine 12/29/18 documented as of this encounter
--- OUTSIDE RECORDS SUMMARY | 2025-06-17 10:28 | XMS_ITS | Encounter Summary ---
Author Organization [facility] Address [address] [place] [address] Care Team Providers Care Administration Assistant Name Role Phone Cesar Mendez MD Primary Care Provider [phone] Encounter Details Date Type Department Care Team (Latest Contact Info) Description 09/01/2000 Outpatient Historical [facility] [address] [facility] [address] [place] [address] Rajwinder Traylor MD NO ADDRESS ON FILE Other sign and symptom in breast (Primary Dx) Social History Tobacco Use Types Packs/Day Years Used Date Smoking Tobacco: Never Assessed Comments Unknown Sex and Gender Information Value Date Recorded Sex Assigned at Not on file 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
--- OUTSIDE RECORDS SUMMARY | 2025-06-17 10:28 | XMS_ITS | Encounter Summary ---
Author Organization [employer] [facility] Address [address] [place] [address] Care Team Providers Care Extractor Operator Solvent Process Name Role Phone Cesar Mendez MD Primary Care Provider [phone] Encounter Details Date Type Department Care Team (Latest Contact Info) Description 03/24/2001 Outpatient Historical HIS [facility] Vince Chaney Jr., MD [address] [place] [address] Type II or unspecified type diabetes mellitus without mention of complication, not stated as uncontrolled (Primary Dx); Unspecified essential hypertension; Pure hypercholesterolem; Screening for thyroid disorder Social History Tobacco Use Types Packs/Day Years Used Date Smoking Tobacco: Never Assessed Comments Unknown Sex and Gender Information Value Date Recorded Sex Assigned at Not on file 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 Gender Identity Not on file Sexual Orientation Not on file documented as of this encounter Plan of Treatment Not on file documented as of this encounter Visit Diagnoses Diagnosis Type II or unspecified type diabetes mellitus without mention of complication, not stated as uncontrolled- Primary Unspecified essential hypertension Pure hypercholesterolem Pure hypercholesterolemia Screening for thyroid disorder documented in this encounter Care Teams Extractor Operator Solvent Process Relationship Specialty Start Date End Date Cesar Mendez MD [address] [facility] 1 [place] [address] PCP - General Family Practice 01/13/20 documented as of this encounter
--- OUTSIDE RECORDS SUMMARY | 2025-06-17 10:28 | XMS_ITS | Encounter Summary ---
Author Organization [facility] Address [address] [place] [address] Care Team Providers Care Reproductive Endocrinologist Name Role Phone Cesar Mendez MD Primary Care Provider [phone] Encounter Details Date Type Department Care Team (Latest Contact Info) Description 01/13/2000 Outpatient Historical HIS [facility] Vince Chaney Jr., MD [address] [place] [address] Type II or unspecified type diabetes mellitus without mention of complication, not stated as uncontrolled (Primary Dx); Unspecified essential hypertension; Malignant neoplasm of breast (female), unspecified site Social History Tobacco Use Types Packs/Day Years Used Date Smoking Tobacco: Never Assessed Comments Unknown Sex and Gender Information Value Date Recorded Sex Assigned at Not on file 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 Gender Identity Not on file Sexual Orientation Not on file documented as of this encounter Plan of Treatment Not on file documented as of this encounter Visit Diagnoses Diagnosis Type II or unspecified type diabetes mellitus without mention of complication, not stated as uncontrolled- Primary Unspecified essential hypertension Malignant neoplasm of breast (female), unspecified site documented in this encounter Care Teams Reproductive Endocrinologist Relationship Specialty Start Date End Date Cesar Mendez MD [address] [address] PCP - General Family Practice 01/13/20 documented as of this encounter
--- OUTSIDE RECORDS SUMMARY | 2025-06-17 10:28 | XMS_ITS | Encounter Summary ---
Author Organization [facility] Address [address] [place] [address] Care Team Providers Care Rn Mobile Name Role Phone Cesar Mendez MD Primary Care Provider [phone] Encounter Details Date Type Department Care Team (Latest Contact Info) Description 04/01/2001 Outpatient Historical HIS [facility] Vince Chaney Jr., MD [address] [place] [address] Urinary tract infection, site not specified (Primary Dx); Type II or unspecified type diabetes mellitus without mention of complication, not stated as uncontrolled Social History Tobacco Use Types Packs/Day Years Used Date Smoking Tobacco: Never Assessed Comments Unknown Sex and Gender Information Value Date Recorded Sex Assigned at Not on file 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
--- OUTSIDE RECORDS SUMMARY | 2025-06-17 10:28 | XMS_ITS | Encounter Summary ---
Author Organization [facility] Address [address] [place] [address] Care Team Providers Care Electrolysis Engineer Name Role Phone Cesar Mendez MD Primary Care Provider [phone] Encounter Details Date Type Department Care Team (Late st Contact Info) Description 09/03/1999 Outpatient Historical [facility] [address] [facility] [address] [place] [phone] Mirian Nj MD NO ADDRESS ON FILE Other sign and symptom in breast (Primary Dx) Social History Tobacco Use Types Packs/Day Years Used Date Smoking Tobacco: Never Assessed Comments Unknown Sex and Gender Information Value Date Recorded Sex Assigned at Not on file 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
--- OUTSIDE RECORDS SUMMARY | 2025-06-17 10:28 | XMS_ITS | Encounter Summary ---
Author Organization [facility] Address [address] [place] [address] Care Team Providers Care Paleologist Name Role Phone Cesar Mendez MD Primary Care Provider [phone] Encounter Details Date Type Department Care Team (Latest Contact Info) Description 06/01/2000 Outpatient Historical HIS [facility] Antonio Mathis MD [address] [place] [address] Personal history of malignant neoplasm of breast (Primary Dx) Social History Tobacco Use Types Packs/Day Years Used Date Smoking Tobacco: Never Assessed Comments Unknown Sex and Gender Information Value Date Recorded Sex Assigned at Not on file 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
--- OUTSIDE RECORDS SUMMARY | 2025-06-17 10:28 | XMS_ITS | Encounter Summary ---
Author Organization [facility] Address [address] [place] [address] Care Team Providers Care Medical Director Occupational Health Name Role Phone Cesar Mendez MD Primary Care Provider [phone] Encounter Details Date Type Department Care Team (Latest Contact Info) Description 12/18/1999 Outpatient Historical HIS [facility] Antonio Mathis MD [address] [place] [address] Personal history of malignant neoplasm of breast (Primary Dx) Social History Tobacco Use Types Packs/Day Years Used Date Smoking Tobacco: Never Assessed Comments Unknown Sex and Gender Information Value Date Recorded Sex Assigned at Not on file 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
--- OUTSIDE RECORDS SUMMARY | 2025-06-17 10:28 | XMS_ITS | Encounter Summary ---
Author Organization [facility] Address [address] [place] [address] Care Team Providers Care Sammying Machine Operator Name Role Phone Cesar Mendez MD Primary Care Provider [phone] Reason for Referral * Radiology Services (Routine) - Closed Specialty Diagnoses / Procedures Referred By George wallace Referred To Contact Radiology Diagnoses Arteriovenous fistula occlusion, initial encounter Procedures IR FISTULOGRAM Wu Clark MD [facility] Interventional Radiology [address] [place] [address] Phone: tel: fax: Referral ID Status Reason Start Date Expiration Date Visits Re quested Visits Authorized [id number] Closed 11/21/2020 12/22/2021 1 1 HARMACEUTICAL REP Encounter Details Date Type Department Care Team (Latest Contact Info) Description 11/21/2020 Ancillary Orders [facility] Interventional Radiology [address] [place] [address] Wu Clark MD NO ADDRESS [...] on file Legal Sex Female 4:12 AM BIOPHARMACEUTICAL REP Gender Identity Not on file Sexual Orientation Not on file COVID-19 Exposure Response Date Recorded In the last month, have you been in contact with someone who was confirmed or suspected to have Coronavirus / COVID-19? No / Unsure 11/22/2020 8:30 AM BIOPHARMACEUTICAL REP documented as of this encounter Plan of Treatment Not on file documented as of this encounter Results * IR FISTULOGRAM (11/22/2020 10:46 AM BIOPHARMACEUTICAL REP) Anatomical Region Laterality Modality X-Ray Angiograph y 11/22/2020 10:4 6 AM BIOPHARMACEUTICAL REP Impressions 11/23/2020 7:56 AM BIOPHARMACEUTICAL REP IMPRESSION: 1. Sonography and fistulography demonstrated occlusive thrombus in the right upper arm arterial venous graft. 2. Thrombolysis and thrombectomy resulted in confucianism of vascular flow through the arteriovenous graft. 3. Angioplasty of a stenotic lesion at the venous anastomosis resulted in brisk flow and mild residual stenosis. Narrative 11/23/2020 7:56 AM BIOPHARMACEUTICAL REP PROCEDURE: 1. Ultrasound-guided vascular access. 2. Fistulography of the right upper extremity arteriovenous fistula, including venography of the peripheral and central venous outflow and arteriography performed from the right brachial artery. 3. Catheter-directed thrombolysis of thrombus in the left upper arm arteriovenous graft. 4. Transcatheter mechanical thrombectomy of thrombus in the right upper extremity arterial venous graft. 5. Percutaneous transluminal angioplasty of a short segment of stenosis at the venous anastomosis of the arteriovenous graft. INDICATION: End-stage renal disease requiring hemodialysis. Thrombosed right upper extremity arteriovenous graft. DATE: 11/23/2020. COMPARISON: None. PHYSICIAN: Juan Peace CONSENT: After discussing the potential risks, benefits, and alternatives of the procedure, written informed consent was obtained. MEDICATIONS: Moderate sedation was given by a trained provider under the direct supervision of the physician using intravenous Versed and fentanyl titrated to effect (see nursing notes). 2% lidocaine, approximately 4 mL subcutaneous. Alteplase 4 mg intravenous. DESCRIPTION OF PROCEDURE: The patient was brought to the angiography suite and placed on table in the supine position. Her right upper extremity was prepped and draped in usual sterile manner. [place] timeout protocol was performed. Sonographic evaluation of the right upper arm arterial venous graft showed occlusive thrombus within the graft. Using real-time ultrasound guidance, the arterial limb of the graft was accessed with micropuncture needle after anesthetizing the skin with 2% lidocaine (an ultrasound image is archived to PACS). Using standard micropuncture technique, the tract was dilated, and a 6 [place]an vascular sheath was inserted over a guidewire and directed antegrade. A 4 [place] [employer] diagnostic catheter was advanced over wire into the right axillary vein, and a gentle pullback venogram was performed. This demonstrated occlusive thrombus in the arteriovenous graft. Catheter-directed thrombolysis of thrombus in the arterial venous graft was performed using 4 mg of TPA. Balloon maceration of the thrombus in the arteriovenous graft was performed using an 8 mm x 40 mm Elwood balloon. Percutaneous transluminal angioplasty of a short segment of 70% stenosis at the venous anastomosis of the arterial venous graft was performed. A stenotic waist was seen widening during inflation of the balloon. Using real-time ultrasound guidance, the venous limb of the graft was accessed with micropuncture needle after anesthetizing the skin with 2% lidocaine (an ultrasound image is archived to PACS). Using standard micropuncture technique, the tract was dilated, and a 6 [place] vascular sheath was inserted over a guidewire and directed retrograde. A Yamileth balloon was advanced over a guidewire into the right brachial artery, and Yamileth thrombectomy of the arterial limb of the graft was performed. Subsequent arteriography performed from the right brachial artery demonstrated confucianism of flow through the arteriovenous graft. A small to moderate amount of residual thrombus was seen within the graft. Balloon maceration of the thrombus in the graft was again performed. Subsequent angiography demonstrated confucianism of brisk flow in the arterial venous graft and no significant residual stenosis. A short segment of 65% stenosis was again seen at the venous anastomosis. A prolonged inflation of the 8 mm balloon was performed at the venous anastomosis. Subsequent angiography demonstrated confucianism of brisk flow and less than 50% residual stenosis at the venous anastomosis. The vascular sheath and wire were removed. Hemostasis was achieved with placement of a Woggle temporary pursestring suture. The procedure site was dressed. COMPLICATIONS: None. The patient tolerated the procedure well. ESTIMATED BLOOD LOSS: Less than 10 mL. CONTRAST: Visipaque 320, 40 mL intravenous and intra-arterial.. FLUOROSCOPY TIME: 7.3 minutes. SAMPLES: None. Procedure Note Juan Peace MD - 11/23/2020 PROCEDURE: 1. Ultrasound-guided vascular access. 2. Fistulography of the right upper extremity arteriovenous fistula, including venography of the peripheral and central venous outflow and arteriography performed from the right brachial artery. 3. Catheter-directed thrombolysis of thrombus in the left upper arm arteriovenous graft. 4. Transcatheter mechanical thrombectomy of thrombus in the right upper extremity arterial venous graft. 5. Percutaneous transluminal angioplasty of a short segment of stenosis at the venous anastomosis of the arteriovenous graft. INDICATION: End-stage renal disease requiring hemodialysis. Thrombosed right upper extremity arteriovenous graft. DATE: 11/23/2020. COMPARISON: None. PHYSICIAN: Juan Peace CONSENT: After discussing the potential risks, benefits, and alternatives of the procedure, written informed consent was obtained. MEDICATIONS: Moderate sedation was given by a trained provider under the direct supervision of the physician using intravenous Versed and fentanyl titrated to effect (see nursing notes). 2% lidocaine, approximately 4 mL subcutaneous. Alteplase 4 mg intravenous. DESCRIPTION OF PROCEDURE: The patient was brought to the angiography suite and placed on table in the supine position. Her right upper extremity was prepped and draped in usual sterile manner. [place] timeout protocol was performed. Sonographic evaluation of the right upper arm arterial venous graft showed occlusive thrombus within the graft. Using real-time ultrasound guidance, the arterial limb of the graft was accessed with micropuncture needle after anesthetizing the skin with 2% lidocaine (an ultrasound image is archived to PACS). Using standard micropuncture technique, the tract was dilated, and a 6 [place]an vascular sheath was inserted over a guidewire and directed antegrade. A 4 [place] [employer] diagnostic catheter was advanced over wire into the right axillary vein, and a gentle pullback venogram was performed. This demonstrated occlusive thrombus in the arteriovenous graft. Catheter-directed thrombolysis of thrombus in the arterial venous graft was performed using 4 mg of TPA. Balloon maceration of the thrombus in the arteriovenous graft was performed using an 8 mm x 40 mm Elwood balloon. Percutaneous transluminal angioplasty of a short segment of 70% stenosis at the venous anastomosis of the arterial venous graft was performed. A stenotic waist was seen widening during inflation of the balloon. Using real-time ultrasound guidance, the venous limb of the graft was accessed with micropuncture needle after anesthetizing the skin with 2% lidocaine (an ultrasound image is archived to PACS). Using standard micropuncture technique, the tract was dilated, and a 6 [place] vascular sheath was inserted over a guidewire and directed retrograde. A Yamileth balloon was advanced over a guidewire into the right brachial artery, and Yamileth thrombectomy of the arterial limb of the graft was performed. Subsequent arteriography performed from the right brachial artery demonstrated confucianism of flow through the arteriovenous graft. A small to moderate amount of residual thrombus was seen within the graft. Balloon maceration of the thrombus in the graft was again performed. Subsequent angiography demonstrated confucianism of brisk flow in the arterial venous graft and no significant residual stenosis. A short segment of 65% stenosis was again seen at the venous anastomosis. A prolonged inflation of the 8 mm balloon was performed at the venous anastomosis. Subsequent angiography demonstrated confucianism of brisk flow and less than 50% residual stenosis at the venous anastomosis. The vascular sheath and wire were removed. Hemostasis was achieved with placement of a Woggle temporary pursestring suture. The procedure site was dressed. COMPLICATIONS: None. The patient tolerated the procedure well. ESTIMATED BLOOD LOSS: Less than 10 mL. CONTRAST: Visipaque 320, 40 mL intravenous and intra-arterial.. FLUOROSCOPY TIME: 7.3 minutes. SAMPLES: None. IMPRESSION: 1. Sonography and fistulography demonstrated occlusive thrombus in the right upper arm arterial venous graft. 2. Thrombolysis and thrombectomy resulted in confucianism of vascular flow through the arteriovenous graft. 3. Angioplasty of a stenotic lesion at the venous anastomosis resulted in brisk flow and mild residual stenosis. Wu Clark MD IR ORDERABLES Final Result documented in this encounter Visit Diagnoses Diagnosis Arteriovenous fistula occlusion, initial encounter Arteriovenous fistula occlusion, initial encounter documented in this encounter Care Teams Sammying Machine Operator Relationship Specialty Start Date End Date Cesar Mendez MD [address] [address] PCP - General Family Practice 01/13/20 documented as of this encounter
--- OUTSIDE RECORDS SUMMARY | 2025-06-17 10:28 | XMS_ITS | Encounter Summary ---
Author Organization [employer] [facility] Address [address] [place] [address] Care Team Providers Care Soaking Room Operator Name Role Phone Cesar Mendez MD Primary Care Provider [phone] Encounter Details Date Type Department Care Team (Late st Contact Info) Description 09/30/1999 Outpatient Historical HIS [facility] Social History Tobacco Use Types Packs/Day Years Used Date Smoking Tobacco: Never Assessed Comments Unknown Sex and Gender Information Value Date Recorded Sex Assigned at Not on file 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
--- OUTSIDE RECORDS SUMMARY | 2025-06-17 10:28 | XMS_ITS | Encounter Summary ---
Author Organization [facility] Address [address] [place] [address] Care Team Providers Care Color Specialist Name Role Phone Cesar Mendez MD Primary Care Provider [phone] Encounter Details Date Type Department Care Team (Latest Contact Info) Description 02/19/2000 Outpatient Historical [facility] Vince Chaney Jr., MD [address] [place] [address] Type II or unspecified type diabetes mellitus without mention of complication, not stated as uncontrolled (Primary Dx); Unspecified essential hypertension; Other abnormal blood chemistry; Hypopotassemia Social History Tobacco Use Types Packs/Day Years Used Date Smoking Tobacco: Never Assessed Comments Unknown Sex and Gender Information Value Date Recorded Sex Assigned at Not on file 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 Gender Identity Not on file Sexual Orientation Not on file documented as of this encounter Plan of Treatment Not on file documented as of this encounter Visit Diagnoses Diagnosis Type II or unspecified type diabetes mellitus without mention of complication, not stated as uncontrolled- Primary Unspecified essential hypertension Other abnormal blood chemistry Hypopotassemia documented in this encounter Care Teams Color Specialist Relationship Specialty Start Date End Date Cesar Mendez MD [address] [facility] 1 [place] [address] PCP - General Family Practice 01/13/20 documented as of this encounter
--- OUTSIDE RECORDS SUMMARY | 2025-06-17 10:28 | XMS_ITS | Encounter Summary ---
Author Organization [facility] [employer] Address [address] [place] [address] Phone Care Team Providers Care Worksite Wellness Practitioner Name Role Phone Cesar Mendez MD Primary Care Provider [phone] Reason for Visit * Reason Comments Med Refill Encounter Details Date Type Department Care Team (Late st Contact Info) Description 01/15/2021 Refill [facility] [employer] [address] [place] [address] Wu Clark MD [address] [place] [address] Social History Tobacco Use Types [...] on filedocumented in this encounter Care Teams Worksite Wellness Practitioner Relationship Specialty Start Date End Date Cesar Mendez MD [address] [place] [phone] PCP - General Family Medicine 12/29/18 documented as of this encounter
--- OUTSIDE RECORDS SUMMARY | 2025-06-17 10:28 | XMS_ITS | Encounter Summary ---
Author Organization [facility] Address [address] [place] [address] Care Team Providers Care Unhairer Name Role Phone Cesar Mendez MD Primary Care Provider [phone] Encounter Details Date Type Department Care Team (Latest Contact Info) Description 09/02/2000 Outpatient Historical HIS [facility] Vince Chaney Jr., MD [address] [place] [address] Unspecified hypothyroidism (Primary Dx); Type II or unspecified type diabetes mellitus without mention of complication, not stated as uncontrolled; Unspecified essential hypertension Social History Tobacco Use Types Packs/Day Years Used Date Smoking Tobacco: Never Assessed Comments Unknown Sex and Gender Information Value Date Recorded Sex Assigned at Not on file 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 Gender Identity Not on file Sexual Orientation Not on file documented as of this encounter Plan of Treatment Not on file documented as of this encounter Visit Diagnoses Diagnosis Unspecified hypothyroidism- Primary Type II or unspecified type diabetes mellitus without mention of complication, not stated as uncontrolled Unspecified essential hypertension documented in this encounter Care Teams Unhairer Relationship Specialty Start Date End Date Cesar Mendez MD [address] [facility] 1 [place] [address] PCP - General Family Practice 01/13/20 documented as of this encounter
--- OUTSIDE RECORDS SUMMARY | 2025-06-17 10:28 | XMS_ITS | Encounter Summary ---
Author Organization [facility] Address [address] [place] [address] Care Team Providers Care Evaporator Supervisor Name Role Phone Cesar Mendez MD Primary Care Provider [phone] Encounter Details Date Type Department Care Team (Late st Contact Info) Description 03/02/[address] [facility] [address] [facility] [address] [place] [address] Mirian Nj MD NO ADDRESS ON FILE Other sign and symptom in breast (Primary Dx) Social History Tobacco Use Types Packs/Day Years Used Date Smoking Tobacco: Never Assessed Comments Unknown Sex and Gender Information Value Date Recorded Sex Assigned at Not on file Legal Sex Female 4:12 AM INCLUSION INTERNSHIP Gender Identity Not on file Sexual Orientation Not on file documented as of this encounter Plan of Treatment Not on file documented as of this encounter Visit Diagnoses Diagnosis Other sign and symptom in breast- Primary documented in this encounter Care Teams Evaporator Supervisor Relationship Specialty Start Date End Date Cesar Mendez MD [address] [facility] 1 [place] [address] PCP - General Family Practice 01/13/20 documented as of this encounter
--- OUTSIDE RECORDS SUMMARY | 2025-06-17 10:28 | XMS_ITS ---
Author Organization [facility] Address [address] [place] [address] Phone Care Team Providers Care Battery Test Engineer Name Role Phone Wu Clark MD Primary Care Provider Unava ilable Active Problems Problem Noted Date Diagnosed Date GI bleed 07/20/2022 Type 1 diabetes mellitus with hyperglycemia 11/2021 s/p lap right hemicolectomy 07/10/2022 07/10/2022 End stage renal disease 03/28/2019 Hypertension 03/18/2019 Breast cancer 11/09/1999 Overview (03/08/2021): Left Breast Lumpectomy with Lymph Node removal. Chemo and Radiation Current Treatment and Therapy Plans No current plan information found. Past Treatment and Therapy Plans No past plan information found. Lifetime Dose Tracking * Chemical Lifetime Dose Automatic Entry Manual Entr y Effective Dose 10.3 mSv 10.3 mSv 0 mSv Total DLP 559 DLP 559 DLP 0 DLP CTDIvol Max 19.5 mGy 19.5 mGy 0 mGy CTDIvol Min 19.5 mGy 19.5 mGy 0 mGy
--- OUTSIDE RECORDS SUMMARY | 2025-06-17 10:28 | XMS_ITS | Encounter Summary ---
Author Organization [employer] [facility] Address [address] [place] [address] Care Team Providers Care Tank Systems Maintainer Name Role Phone Cesar Mendez MD Primary Care Provider [phone] Encounter Details Date Type Department Care Team (Latest Contact Info) Description 12/24/2000 Outpatient Historical [facility] Vince Chaney Jr., MD [address] [place] [address] Type II or unspecified type diabetes mellitus without mention of complication, not stated as uncontrolled (Primary Dx); Unspecified essential hypertension; Pure hypercholesterolem Social History Tobacco Use Types Packs/Day Years Used Date Smoking Tobacco: Never Assessed Comments Unknown Sex and Gender Information Value Date Recorded Sex Assigned at Not on file 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 Gender Identity Not on file Sexual Orientation Not on file documented as of this encounter Plan of Treatment Not on file documented as of this encounter Visit Diagnoses Diagnosis Type II or unspecified type diabetes mellitus without mention of complication, not stated as uncontrolled- Primary Unspecified essential hypertension Pure hypercholesterolem Pure hypercholesterolemia documented in this encounter Care Teams Tank Systems Maintainer Relationship Specialty Start Date End Date Cesar Mendez MD [address] [facility] 1 [place] [phone] PCP - General Family Practice 01/13/20 documented as of this encounter
--- OUTSIDE RECORDS SUMMARY | 2025-06-17 10:29 | XMS_ITS | Encounter Summary ---
Author Organization [facility] Address [address] [place] [address] Care Team Providers Care Java Designer Name Role Phone Cesar Mendez MD Primary Care Provider [phone] Encounter Details Date Type Department Care Team (Latest Contact Info) Description 08/26/1999 Outpatient Historical [facility] Antonio Mathis MD [address] [place] [address] Malignant neoplasm of breast (female), unspecified site (Primary Dx) Social History Tobacco Use Types Packs/Day Years Used Date Smoking Tobacco: Never Assessed Comments Unknown Sex and Gender Information Value Date Recorded Sex Assigned at Not on file Legal Sex Female 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
--- OUTSIDE RECORDS SUMMARY | 2025-06-17 10:29 | XMS_ITS | Encounter Summary ---
Author Organization [facility] [employer] Address [address] [place] [address] Phone Care Team Providers Care Baggage Agent Supervisor Name Role Phone Cesar Mendez MD Primary Care Provider [phone] Reason for Visit * Reason Comments Med Refill Encounter Details Date Type Department Care Team (Late st Contact Info) Description 05/28/2020 Refill [facility] [employer] [address] [place] [address] Wu Clark MD [address] [place] [address] Social History Tobacco Use Types [...] on filedocumented in this encounter Care Teams Baggage Agent Supervisor Relationship Specialty Start Date End Date Cesar Mendez MD [address] [facility] [place] [address] PCP - General Family Medicine 12/29/18 documented as of this encounter
--- OUTSIDE RECORDS SUMMARY | 2025-06-17 10:29 | XMS_ITS | Patient Health Record ---
Author Organization [facility] Address [address] [place] [address] Care Team Providers Care Vegetable Tier Name Role Phone Cesar Mendez MD Primary Care Provider Sin Cruz Unavailable [phone] Simran Strong Unavailable [phone] Tia Hsieh Unavailable [phone] Allergies Allergen (clinical drug ingredient) Drug/Non Drug Allergy documented on EMR Reaction Allergy Type Onset Date Status Darvon Unknown Drug Allergy Active codeine Codeine Unknown Drug Allergy 08/22/2004 Active Substance with penicillin structure and antibacterial mechanism of action (substance) Penicillins Unknown Drug Allergy 08/22/2004 Active Reason For Referral No Information Medications Medication SIG (Take, Route, Frequency, Duration) Notes Start Date End Date Status Enoxaparin Sodium 30 MG/0.3ML Solution Prefilled Syringe 0.3 mL Injection 3x a week Active HYDROcodone-Acetami nophen 7.5-325 MG Tablet 1 tablet as needed Orally every 6 hrs Active Levothyroxine Sodium 200 MCG Tablet 1 tablet in the morning on an empty stomach Orally Once a day Active Losartan Potassium 25 MG Tablet 1 tablet Orally Once a day Active RenaPlex-D - Tablet as directed Orally 800mcg-12 .5 mg 2000 unit tablet once a day Active rOPINIRole HCl 0.5 MG Tablet 1 tablet 1 to 3 hours before bedtime Orally Once a day. Take before dialysis on // Active rOPINIRole HCl 1 MG Tablet 1 tablet 1 to 3 hours before bedtime Orally Once a day Active Tamsulosin HCl 0.4 MG Capsule 1 capsule Orally Once a day Active Sucralfate 1 GM Tablet 1 tablet on an empty stomach Orally Twice a day Not-Taking traMADol HCl 50 MG Tablet 1 tab(s) po q6h Oral; Duration: 30 Tramadol 50mg Tablet 1 tab(s) po q6h 08/22/2004 Not-Taking Lasix 80 MG Tablet 1 tablet Orally 2 x a day Active Trulicity 0.75 MG/0.5ML Solution Pen-injector as directed Subcutaneous 1 x a week Active Tylenol 325 MG Tablet 2 tablet as needed Orally every 6 hrs Active amLODIPine Besylate 10 MG Tablet 1 tablet Orally Once a day Not-Taking Caltrate 600 + D 600 mg(1,500mg) -400 unit tablet Take 1 tablet(s) by mouth tid; Duration: 30 *please review for potential _update for e-prescription and drug interaction check* Caltrate 600 + D Tablet Take 1 tab(s) by mouth tid 08/22/2004 Not-Taking Acetaminophen 325 MG Tablet 1 tablet as needed Orally every 4 hrs Active Dyazide 37.5-25 mg Capsule Take 1 capsule(s) by mouth daily Oral; Duration: 30 Dyazide Capsules 1 cap(s) po qd 08/22/2004 Not-Taking Levoxyl 112 mcg Tablet Take 1 tablet(s) by mouth daily Oral; Duration: 30 Levoxyl 0.112mg Tablet 1 tab(s) po qd 08/22/2004 Not-Taking Amitriptyline HCl 100 MG Tablet 1 tablet at bedtime Orally Once a day; Duration: 30 days Amitriptyline HCl 50mg Tablet 1 tab(s) po hs 08/22/2004 Active Lisinopril 20 MG Tablet 1 tab(s) po bid Oral; Duration: 30 Lisinopril 20mg Tablet 1 tab(s) po bid 08/22/2004 Not-Taking metFORMIN HCl 850 MG Tablet Take 1 tablet(s) by mouth tid Oral; Duration: 30 Metformin HCl 850mg Tablet 1 tab(s) po tid 08/22/2004 Not-Taking Auryxia 1 GM 210 MG(Fe) Tablet 1 tablet with a meal Orally Three times a Week Active oxyCODONE HCl 5 MG Tablet 1 tablet as needed Orally every 6 hrs Not-Taking Bumetanide 1 MG Tablet 1 tablet Orally Once a day Active Pantoprazole Sodium 40 MG Tablet Delayed Release 1 tablet Orally Once a day Not-Taking Carvedilol 12.5 MG Tablet 1 tablet with food Orally once a day Active Social History Tobacco Use: Social History Observation Description Date Details (start date - stop date) Never Smoker NA - NA Social History Drugs/Alcohol: Social Info Question Answer Notes Alcohol Screen (Audit-C) Did you have a drink containing alcohol in the past year? No Points 0 Interpretation Negative Drugs Have you used drugs other than those for medical reasons in the past 12 months? No Caffeine Intake: Tea and little bit of soda Tobacco Use: Social Info Question Answer Notes Tobacco Control (Standard) Tobacco use: Nonsmoker Additional Details Category Social Info Options Details Drugs/Alcohol: Do you smoke marijuana? De nies Do you drink alcohol? No Problems Problem Type SNOMED Code ICD Code Onset Dates Problem Status W/U Status Risk Notes Problem Essential hypertension (36080074) Essential (primary) hypertension (I10) Active confirmed Problem Chronic diastolic heart failure (308516237) Chronic diastolic (congestive) heart failure (I50.32) Active confirmed Problem End stage renal disease (66912938) End stage renal disease (N18.6) Active confirmed Problem Dependence on renal dialysis (064964880) Dependence on renal dialysis (Z99.2) Active confirmed Problem Personal history of primary malignant neoplasm of breast (943400104) History of left breast cancer (Z85.3) Active confirmed Problem Abdominal bloating (363226843) Abdominal bloating (R14.0) Active confirmed Problem Cardiac arrhythmia (883389365) Irregular heart rhythm (I49.9) Active confirmed Problem Diabetic renal disease (142584163) Type 2 diabetes mellitus with diabetic nephropathy, 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) Active confirmed Problem Rheumatoid arthritis (37428200) Rheumatoid arthritis (714.0) 08/22/20 Problem resolved confirmed [id number] 11- Problem Essential hypertension (49314179) Essential hypertension (401.1) 08/22/20 Problem resolved confirmed [id number] 11- Problem Diabetes mellitus type 2 (disorder) (37319748) Type 2 diabetes (250.00) 08/22/20 Problem resolved confirmed [id number] 11- Vital Signs Heart Rate 63 /min 09/07/2024 Temperature 97.7 degrees Fahrenheit 09/07/2024 Respiratory Rate 18 /min 09/07/2024 Blood pressure diastolic 62 mm Hg 09/07/2024 Oximetry 98 % 09/07/2024 Height-cm 160.02 cm 09/07/2024 Weight-kg 56.7 kg 09/07/2024 Height 63 in 09/07/2024 Blood pressure systolic 104 mm Hg 09/07/2024 Weight 125 lbs 09/07/2024 BMI 22.14 kg/m2 09/07/2024 Encounters Encounter Location Date Provider Diagnosis [facility] [address] [place] [address] 09/06/2024 Simran Strong Abdominal bloating R14.0 [facility] [address] [place] [address] 09/07/2024 Sin Medley Abdominal bloating R14.0 ; Essential (primary) hypertension I10 ; Type 2 diabetes mellitus with diabetic nephropathy, without long-term current use of insulin E11.21 ; End stage renal disease N18.6 ; Dependence on renal dialysis Z99.2 ; Chronic diastolic (congestive) heart failure I50.32 and History of left breast cancer Z85.3 [facility] [address] [place] [address] 09/07/2024 Simran Strong End stage renal disease N18.6 Assessments Encounter Date Diagnosis (ICD Code) Assessment Notes Treatment Notes Treatment Clinical Notes Section Notes 09/06/2024 Abdominal bloating (ICD-10 - R14.0) Ms Saab, in the last year, broke one of her hips and broke the other one in rehab. She has had some trouble getting to this clinic for evaluation. I do not have any current labs or imaging. Multiple requests have been made to [facility] for records. I am having her follow up with Dr Medley as he will be in clinic tomorrow. 09/07/2024 Abdominal bloating (ICD-10 - R14.0) 09/07/2024 Essential (primary) hypertension (ICD-10 - I10) 09/07/2024 End stage renal disease (ICD-10 - N18.6) 09/07/2024 Type 2 diabetes mellitus with diabetic nephropathy, without long-term current use of insulin (ICD-10 - E11.21) 09/07/2024 End stage renal disease (ICD-10 - N18.6) 09/07/2024 Dependence on renal dialysis (ICD-10 - Z99.2) 09/07/2024 Chronic diastolic (congestive) heart failure (ICD-10 - I50.32) 09/07/2024 History of left breast cancer (ICD-10 - Z85.3) 09/07/2024 Other The report of last colonoscopy performed in [place], [place] 2 years ago was reviewed and noted. Surgical pathology report of right hemicolectomy was also reviewed and noted. The patient has chronic abdominal bloating for over 2 years. No specific abnormality is noted during physical examination. The patient's last cross-sectional imaging was performed over 2 years ago. Recommend abdomen/pelvis CT scan with p.o. and IV contrast for further evaluation. Meanwhile, dietary modifications to minimize abdominal bloating was discussed with the patient. I see no indication for upper endoscopy at this time. Future follow-ups will be with Dr. Russell. Plan Of Treatment Pending Test Test Name Order Date Pro BNP 60524 11/17/2023 CT Abdomen, Pelvis w/ Contrast-[id number] Electrocardiogram 12 Lead Tracing-92045 11/17/2023 Future Test Test Name Order Date Blood Urea Nitrogen (BUN) 15063 09/07/20 24 Creatinine (B) 43085 09/07/2024 Insurance Providers Payer Name Payer Address Payer Phone Subscriber Number Group Number Insured Name Patient Relationship to Insured Coverage Start Date Coverage End Date [place] Medicare [address] [place] [phone] [id number] María Saab Self - patient is the insured [address] [phone] [id number] María Saab Self - patient is the insured Medical (General) History Medical History History ICD Code measles mumps Arthritis Chicken Pox anemia bladder infections diabetes Back Trouble blood transfusion High Blood Pressure Low Blood Pressure stroke cataracts adenomatous colonic polyps fibromyalgia kidney stones Hemo Dialysis Colonoscopy 2021 Peritoneal dialysis 2019 Kidney infection 2019 Surgical History Surgery Date(Month/Year) Biopsy of breast; lymph node Tonsillectomy + AdenoidectomyTubal Ligation skin graft on arms Breast Cancer 1998 Broken Left and Right Legs 2022 choleycystectomy 2020 appendectomy 2021 Dialysis Graft 2020 Colonoscopy Polyp Removal 2021 dialysis fistula Hospitalization History Reason Date(Month/Year) Kidney infection 2000 See surgery history
--- OUTSIDE RECORDS SUMMARY | 2025-06-17 10:29 | XMS_ITS | Encounter Summary ---
Author Organization [employer] [facility] Address [address] [place] [address] Care Team Providers Care Parking Lot Laborer Name Role Phone Cesar Mendez MD Primary Care Provider [phone] Encounter Details Date Type Department Care Team (Latest Contact Info) Description 09/27/1998 Outpatient Historical [facility] Fady Jones MD [address] [place] [address] Hypotension, unspecified (Primary Dx); Unspecified hypothyroidism; Dyspepsia and other specified disorders of function of stomach Social History Tobacco Use Types Packs/Day Years Used Date Smoking Tobacco: Never Assessed Comments Unknown Sex and Gender Information Value Date Recorded Sex Assigned at Not on file 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
--- OUTSIDE RECORDS SUMMARY | 2025-06-17 10:29 | XMS_ITS | Encounter Summary ---
Author Organization [employer] [facility] Address [address] [place] [address] Care Team Providers Care Ship Officer Name Role Phone Cesar Mendez MD Primary Care Provider [phone] Encounter Details Date Type Department Care Team (Latest Contact Info) Description 08/14/1999 Outpatient Historical HIS [facility] Vince Chaney Jr., MD [address] [place] [address] Unspecified essential hypertension (Primary Dx); Lump or mass in breast Social History Tobacco Use Types Packs/Day Years Used Date Smoking Tobacco: Never Assessed Comments Unknown Sex and Gender Information Value Date Recorded Sex Assigned at Not on file Legal Sex Female 4:12 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
--- OUTSIDE RECORDS SUMMARY | 2025-06-17 10:29 | XMS_ITS | Encounter Summary ---
Author Organization [employer] [facility] Address [address] [place] [address] Care Team Providers Care Internship Name Role Phone Cesar Mendez MD Primary Care Provider [phone] Encounter Details Date Type Department Care Team (Latest Contact Info) Description 06/11/1998 Outpatient Historical [facility] Chris Connelly MD NO ADDRESS ON FILE Backache, unspecified (Primary Dx) Social History Tobacco Use Types Packs/Day Years Used Date Smoking Tobacco: Never Assessed Comments Unknown Sex and Gender Information Value Date Recorded Sex Assigned at Not on file Legal Sex Female 4:12 AM RIB BENDER Gender Identity Not on file Sexual Orientation Not on file documented as of this encounter Plan of Treatment Not on file documented as of this encounter Visit Diagnoses Diagnosis Backache, unspecified- Primary documented in this encounter Care Teams Internship Relationship Specialty Start Date End Date Cesar Mendez MD [address] [facility] 1 [place] [address] PCP - General Family Practice 01/13/20 documented as of this encounter
--- OUTSIDE RECORDS SUMMARY | 2025-06-17 10:29 | XMS_ITS | Encounter Summary ---
Author Organization [facility] [employer] Address [address] [facility] [address] [place] [address] Phone Care Team Providers Care Didactic Instructor Name Role Phone Cesar Mendez MD Primary Care Provider [phone] Encounter Details Date Type Department Care Team (Late st Contact Info) Description 05/18/2019 Orders Only [facility] [address] [place] [address] Nicholas Rahman [facility] [address] [place] [address] Chronic kidney disease stage 4 [...] Priority Date/Time Associated Diagnosis Comments CBC Routine 05/13/2019 9:45 AM CDT Chronic kidney disease stage 4 (HCC) PTH, INTACT Routine 05/13/2019 9:45 AM CDT Chronic kidney disease stage 4 (HCC) RENAL FUNCTION PANEL Routine 05/13/2019 9:45 AM CDT Chronic kidney disease stage 4 (HCC) documented in this encounter Results * PTH, intact (05/13/2019 9:45 AM CDT) Parathyroid Hormone, Intact 230 pg/mL [facility] Blood specimen (specimen) Venous blood / Unknown 05/13/2019 9:45 AM CDT [facility] LAB BLOOD ORDERABLES Final Res ult [facility] * CBC (05/13/2019 9:45 AM CDT) WBC 11.0 K/uL [facility] Red Blood Cell Count 2.51 [facility] Hemoglobin 7.7 g/dL [facility] Hematocrit 22.7 % [facility] MCV 90.7 [facility] MCH 30.7 [facility] MCHC 33.9 [facility] RDW 14.7 [facility] Platelet Count 304.0 [facility] Absolute Lymphocytes 1.2 [facility] Absolute Monocytes 0.6 [facility] Lymphocytes 11.0 [facility] Monocytes 5.1 [facility] Blood specimen (specimen) Venous blood / Unknown 05/13/2019 9:45 AM CDT [facility] LAB BLOOD ORDERABLES Final Res ult [facility] * (ABNORMAL) Renal function panel (05/13/2019 9:45 AM CDT) Albumin 3.4(A) 3.5 - 5.0 g/dL [facility] BUN 65(A) 4 - 21 mg/dL [facility] Calcium 8.7 8.7 - 10.7 mg/dL [facility] Chloride 103 99 - 108 [facility] Bicarbonate (CO2) 24 22 - 30 mmol/L [facility] Creatinine 3.89(A) 0.50 - 1.10 mg/dL [facility] eGFR 13.0 mL/min/1.7 3m*2 [facility] eGFR Non- 11.0 mL/min/1.7 3m*2 [facility] Glucose 177 [facility] Phosphorus, Serum 4.9 [facility] Potassium 4.5 3.4 - 5.[address] [facility] Sodium 138 137 - [address] [facility] Blood specimen (specimen) Venous blood / Unknown 05/13/2019 9:45 AM CDT Nicholas Rahman [facility] LAB BLOOD ORDERABLES Final Res ult [facility] documented in this encounter Visit Diagnoses Diagnosis Chronic kidney disease stage 4 (HCC) documented in this encounter Care Teams Didactic Instructor Relationship Specialty Start Date End Date Cesar Mendez MD [address] [place] [address] PCP - General Family Medicine 12/29/18 documented as of this encounter
--- OUTSIDE RECORDS SUMMARY | 2025-06-17 10:29 | XMS_ITS | Encounter Summary ---
Author Organization [facility] [employer] Address [address] [place] [address] Phone Care Team Providers Care Recreational Resort Manager Name Role Phone Cesar Mendez MD Primary Care Provider [phone] Encounter Details Date Type Department Care Team (Late st Contact Info) Description 06/14/2025 Orders Only [facility] [employer] [facility] [address] [place] [address] Debi Montes De Oca MD [address] [place] [address] Social History Tobacco Use Types [...] Procedure Name Priority Date/Time Associated Diagnosis Comments HD KINETICS Routine 06/14/2025 POST CHEMISTRY Routine 06/14/2025 HEMATOLOGY Routine 06/14/2025 CHEMISTRY Routine 06/14/2025 documented in this encounter Results * HD KINETICS (06/14/2025) Pathologist [facility] % Urea Reduction 77 65 - 80 % [facility] 06/14/2025 06/15/2025 4:1 2 PM CDT Narrative [facility] - 06/15/2025 Unless otherwise specified, test(s) performed at: [facility], [address] [place], [place] [id number] HIGHWAY SAFETY ENGINEER: John Treviño M.D. For any questions, please call customer service at FREQUENCY:MONTHLY Resulting Agency Comment Specimen source: Plasma Debi Montes De Oca MD LAB BLOOD ORDERABLES Final Re sult [facility] See order comments or contact performing lab Unknown, [place] * (ABNORMAL) [facility] (06/14/2025) Pathologist [facility] BUN 31(H) 6 - 19 mg/dL [facility] Creatinine 4.34(H) 0.60 - 1.30 mg/dL [facility] BUN/Creatinine Ratio 7.1(L) 10.0 - 20.0 [facility] Sodium 130(L) 136 - 145 mEq/L [facility] Potassium 3.8 3.5 - 5.1 mEq/L [facility] Chloride 90(L) 96 - 108 mEq/L [facility] Bicarbonate (CO2) 28 22 - 29 mEq/L [facility] Calcium 8.9 8.4 - 10.2 mg/dL [facility] Corrected Calcium 9.0 8.4 - 10.2 mg/dL [facility] Comment: Corrected Calcium is not equivalent to measured Ionized Calcium. Phosphorus 5.2(H) 2.6 - 4.5 mg/dL [facility] Calcium Phosphorus Product 46 0 - 54 [facility] Calcium Phosporus Product, Cor 47 0 - 54 [facility] Total Protein 6.9 6.0 - 8.5 g/dL [facility] Albumin 3.9 3.5 - 5.2 g/dL [facility] Globulin, Total 3.0 2.0 - 4.0 g/dL [facility] A/G Ratio 1.3 1.0 - 2.0 [facility] Glucose 198(H) 70 - 100 mg/dL [facility] Iron 39 30 - 160 mcg/dL [facility] UIBC 146(L) 155 - 355 mcg/dL [facility] TIBC 185 185 - 515 mcg/dL [facility] Iron Saturation (TSat) 21 20 - 55 % [facility] 06/14/2025 06/15/2025 12: 05 PM CDT Narrative [facility] - 06/15/2025 Unless otherwise specified, test(s) performed at: [facility], [address] [place] [address] HIG[address] SAFETY ENGINEER: John Treviño M.D. For any questions, please call customer service at FREQUENCY:MONTHLY Resulting Agency Comment Specimen source: Serum us Debi Montes De Oca MD LAB BLOOD ORDERABLES Final Re sult Performing Organization Address [facility] Co de Phone Number [facility] See order comments or contact performing lab Unknown, [place] * POST CHEMISTRY (06/14/2025) Pathologist [facility] BUN Post Dialysis 7 6 - 19 mg/dL [facility] 06/14/2025 06/15/2025 4:1 2 PM CDT Narrative [facility] - 06/15/2025 Unless otherwise specified, test(s) performed at: [facility], [address] [place] [address] [address]IG[address] SAFETY ENGINEER: John Treviño M.D. For any questions, please call customer service at FREQUENCY:MONTHLY Resulting Agency Comment Specimen source: Plasma us Debi Montes De Oca MD LAB BLOOD ORDERABLES Final Re sult Performing Organization Address City/[facility]/ZIP Co de Phone Number [facility] See order comments or contact performing lab Unknown, [place] * (ABNORMAL) HEMATOLOGY (06/14/2025) Neutrophils 71.4 40.0 - 75.0 % [facility] Lymphocytes Relative 14.4(L) 19.0 - 48.0 % [facility] Monocytes 6.5 3.0 - 10.0 % [facility] Eosinophils Relative 3.6 0.0 - 7.0 % [facility] Basophils Relative 2.3(H) 0.0 - 1.5 % [facility] LAZARO 1.8 0.0 - 4.0 % [facility] WBC 4.64(L) 4.80 - 10.80 1000/mcL [facility] RBC 3.25(L) 4.20 - 5.40 mill/mcL [facility] Hematocrit 30.2(L) 37.0 - 47.0 % [facility] MCV 93 80 - 100 fl [facility] MCH 30.0 27.0 - 31.0 pg [facility] MCHC 32.3 30.0 - 36.0 g/dL [facility] RDW 16.9(H) 11.5 - 14.5 % [facility] Hemoglobin 9.8(L) 12.0 - 16.0 g/dL [facility] Hemoglobin x 3 29.4(L) 36.0 - 48.0 % [facility] Platelets 175 130 - 400 1000/mcL [facility] 06/14/2025 06/15/2025 1:0 2 PM CDT Narrative [facility] - 06/15/2025 Unless otherwise specified, test(s) performed at: [facility], [address] [place] [id number] [address] SAFETY ENGINEER: John Treviño M.D. For any questions, please call customer service at FREQUENCY:MONTHLY Resulting Agency Comment Specimen source: Blood us Debi Montes De Oca MD LAB BLOOD ORDERABLES Final Re sult [facility] See order comments or contact performing lab Unknown, [place] documented in this encounter Visit Diagnoses Not on filedocumented in this encounter Care Teams Recreational Resort Manager Relationship Specialty Start Date End Date Cesar Mendez MD [address] [place] [address] PCP - General Family Medicine 12/29/18 documented as of this encounter
--- OUTSIDE RECORDS SUMMARY | 2025-06-17 10:29 | XMS_ITS | Encounter Summary ---
Author Organization [facility] Address [address] [place] [address] Care Team Providers Care Supplies Packer Name Role Phone Cesar Mendez MD Primary Care Provider [phone] Encounter Details Date Type Department Care Team (Latest Contact Info) Description 08/16/1999 Outpatient Historical [facility] Vince Chaney Jr., MD [address] [place] [address] Abn Pap Smear-Cervix (Primary Dx) Social History Tobacco Use Types Packs/Day Years Used Date Smoking Tobacco: Never Assessed Comments Unknown Sex and Gender Information Value Date Recorded Sex Assigned at Not on file Legal Sex Female 4:12 AM INSTALLATION 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
--- OUTSIDE RECORDS SUMMARY | 2025-06-17 10:29 | XMS_ITS | Encounter Summary ---
Author Organization [facility] [employer] Address [address] [place] [address] Phone Care Team Providers Care Ornamenter Hand Name Role Phone Cesar Mendez MD Primary Care Provider [phone] Reason for Visit * Reason Comments Med Refill Encounter Details Date Type Department Care Team (Late st Contact Info) Description 10/02/2021 Refill [facility] [employer] [facility] [address] [place] [address] Wu Clark MD [address] [place] [address] Social History Tobacco Use Types [...] on filedocumented in this encounter Care Teams Ornamenter Hand Relationship Specialty Start Date End Date Cesar Mendez MD [address] [place] [id number] PCP - General Family Medicine 12/29/18 documented as of this encounter
--- OUTSIDE RECORDS SUMMARY | 2025-06-17 10:29 | XMS_ITS | Clinical Summary ---
Author Organization [facility] Facility Address [address] [address] Care Team Providers Care Managed Care Coordinator Name Role Phone Cesar Mendez MD Primary Care Provider [phone] Allergies Active Allergy Reactions Criticality Noted Date Comments Codeine Rash Low 12/27/2018 Penicillins Rash Low 12/27/2018 Propoxyphene Rash Low 01/12/2019 Medications * This document contains information received from the source organization and may not represent a complete record from that organization. Insulin Degludec 100 UNIT/ML solution Inject 13 Units under the skin 2 (two) times a day with meals Active potassium chloride (KLOR-CON) 10 MEQ CR tablet Take 10 mEq by mouth in the morning and 10 mEq in the evening. Do not crush, chew, or split. . Active amitriptyline (ELAVIL) 100 MG tablet Take 100 mg by mouth every night Active levothyroxine (SYNTHROID, LEVOTHROID) 200 MCG tablet Take 200 mcg by mouth 1 (one) time each day Active ferrous sulfate 325 (65 Fe) MG EC tablet Take 325 mg by mouth in the morning and 325 mg in the evening. Do not crush, chew, or split. . Active tamsulosin (FLOMAX) 0.4 MG 24 hr capsule Take 0.4 mg by mouth 1 (one) time each day Active Multiple Vitamins-Minera ls (PRESERVISION AREDS 2 PO) Take 1 tablet by mouth 2 (two) times a day Active furosemide (LASIX) 40 MG tablet TAKE 2 TABLETS BY MOUTH TWICE DAILY. 60 tablet 1 03/31/2019 Active insulin aspart (NovoLOG) 100 UNIT/ML injection Inject under the skin Per sliding scale Active amLODIPine (NORVASC) 10 MG tablet Take 1 tablet (10 mg total) by mouth 1 (one) time each day 90 tablet 3 05/18/2019 Active Active Problems Problem Noted Date Diagnosed Date Hypertension 03/18/2019 Proteinuria 03/18/2019 Malignant tumor of breast 11/09/1999 Overview (05/25/2022): Left Breast Lumpectomy with Lymph Node removal. Chemo and Radiation Left Breast Lumpectomy with Lymph Node removal. Chemo and Radiation Resolved Problems Problem Noted Date Diagnosed Date Resolved Date Chronic kidney disease stage 4 03/18/2019 01/16/2022 Encounters Date Type Department Care Team Description 06/14/2025 [facility] Only [facility], [facility] [address] [place] [address] Debi Montes De Oca MD 06/07/2025 Orders Only [facility], [facility] [address] [place] [address] Debi Montes De Oca MD 06/02/2025 Orders Only [facility], [facility] [address] [place] [address] Debi Montes De Oca MD 05/31/2025 Orders Only [facility], [facility] [address] [place] [address] Debi Montes De Oca MD 05/31/[address] [facility], [facility] [address] [place] [address] Debi Montes De Oca MD End stage renal disease; Dependence on renal dialysis 05/25/2025 Orders Only [facility], [facility] [address] [place] [address] Debi Montes De Oca MD 05/22/2025 Orders Only [facility], [facility] [address] [place] [address] Debi Montes De Oca MD 05/22/[address] [facility], [facility] [address] [place] [address] Alyx Hayes, MIGEL End stage renal disease; Dependence on renal dialysis 05/17/2025 Orders Only [facility], [facility] [address] [place] [address] Debi Montes De Oca MD 05/17/[address] [facility], [facility] [address] [place] [address] Maryellen Laird NP End stage renal disease; Dependence on renal dialysis 05/10/2025 Orders Only [facility], [facility] [address] [place] [address] Debi Montes De Oca MD 05/10/2025 Treatment 8[facility], [facility] [address] [place] [address] Maryellen Laird NP End stage renal disease; Dependence on renal dialysis 05/03/2025 Orders Only [facility], [facility] [address] [place] [address] Debi Montes De Oca MD 04/26/2025 Orders Only [facility], [facility] [address] [place] [address] Debi Montes De Oca MD 04/26/[address] [facility], [facility] [address] [place] [address] Debi Montes De Oca MD End stage renal disease; Dependence on renal dialysis 04/23/2025 Refill [facility], [facility] [address] [place] [address] Debi Montes De Oca MD 04/19/2025 Orders Only [facility], [facility] [address] [place] [address] Debi Montes De Oca MD 04/17/[address] [facility], [facility] [address] [place] [address] Alyx Hayes NP End stage renal disease; Dependence on renal dialysis 04/14/2025 Orders Only [facility], [facility] [address] [place] [address] Debi Montes De Oca MD 04/12/2025 Orders Only [facility], [facility] [address] [place] [address] Debi Montes De Oca MD 04/10/[address] [place] [address], [facility] [address] [place] [address] Alyx Hayes NP End stage renal disease; Dependence on renal dialysis 04/05/2025 Orders Only [facility], [facility] [address] [place] [address] Debi Montes De Oca MD 04/05/[address] [place] [address], [facility] [address] [place] [address] Debi Montes De Oca MD End stage renal disease; Dependence on renal dialysis 03/29/2025 Orders Only [facility], [facility] [address] [place] [address] Debi Montes De Oca MD 03/27/[address] [place], [place] [address]rology [facility], [facility] [address] [place] [address] Maryellen Laird NP End stage renal disease; Dependence on renal dialysis 03/22/2025 Orders Only [facility], [facility] [address] [place] [address] Debi Montes De Oca MD 03/20/[address] [place], [place] [address]rology [facility], [facility] [address] [place] [address] Alyx Hayes, MIGEL End stage renal disease; Dependence on renal dialysis from Last 3 Months Immunizations Immunization Administration Dates Next Due Influenza TIV (IM) 10/03/2002,08/31/2001 Pneumococcal Polysaccharide 07/03/2000 Family History Medical History Relation Comments Hypertension Father Stroke Father Hypertension Mother Stroke Mother Relation Status Comments Father Mother Social History Tobacco Use Types Packs/Day Years [...] Sign Reading Time Taken Comments Blood Pressure 144/70 01/15/2022 2:57 PM ASSISTANT FOOTBALL COACH Pulse 70 01/15/2022 2:57 PM ASSISTANT FOOTBALL COACH Temperature - - Respiratory Rate - - Oxygen Saturation - - Inhaled Oxygen Concentration - - Weight 70.1 kg (154 lb 9.6 oz) 01/15/2022 2:57 P M ASSISTANT FOOTBALL COACH Height 160 cm (5' 3 ) 01/15/2022 2:57 PM ASSISTANT FOOTBALL COACH Body Mass Index 27.39 01/15/2022 2:57 PM ASSISTANT FOOTBALL COACH Plan of Treatment Health Maintenance Due Date Last Done Comments Hepatitis B Vaccine (1 of 5 - Risk Dialysis 4-dose series) 1970 11/10/2019, 07/29/2019, 07/06/2019, Additional history exists Pneumococcal Vaccine: 50+ Ye ars (3 of 3 - PCV20 or PCV21) 09/14/2019 07/20/2019, 07/03/2000 Diabetes: Ophthalmology Exam 12/14/2021 Diabetes: Pedal Pulse Checked 12/14/2021 Diabetes: Sensory Foot Exam 12/14/2021 Diabetes: Visual Foot Exam 12/14/2021 Influenza Vaccine (#1) 2025 10/03/2002, 2000 Diabetes: Hemoglobin A1C 07/27/2025 025, 10/12/2024, 07/13/2024, Additional history exists Pneumococcal Vaccine: Peds ( 0 to 5 Years) and At-Risk Patients (6 to 49 Years) Discontinued 07/20/2019, 07/03/2000 Colorectal Cancer Screening: Colonoscopy Discontinued 06/12/2022 Procedures Procedure Name Priority Date/Time Associated Diagnosis Comments HD KINETICS Routine 06/14/2025 CHEMISTRY Routine 06/14/2025 POST CHEMISTRY Routine 06/14/2025 HEMATOLOGY Routine 06/14/2025 HEMATOLOGY Routine 06/07/2025 [facility] RESULTS Routine 06/02/2025 HD KINETICS Routine 06/02/2025 POST CHEMISTRY Routine 06/02/2025 CHEMISTRY Routine 06/02/2025 [facility] RESULTS Routine 05/31/2025 HD KINETICS Routine 05/31/2025 POST CHEMISTRY Routine 05/31/2025 CHEMISTRY Routine 05/31/2025 HEMATOLOGY Routine 05/31/2025 HEMATOLOGY Routine 05/25/2025 [facility] RESULTS Routine 05/22/2025 HD KINETICS Routine 05/22/2025 POST CHEMISTRY Routine 05/22/2025 CHEMISTRY Routine 05/22/2025 HEMATOLOGY Routine 05/17/2025 CHEMISTRY Routine 05/10/2025 HEMATOLOGY Routine 05/10/2025 HEMATOLOGY Routine 05/03/2025 CHEMISTRY Routine 04/26/2025 SPECIAL CHEMISTRY Routine 04/26/2025 HEMATOLOGY Routine 04/26/2025 IMMUNO CHEMISTRY Routine 04/19/2025 HEMATOLOGY Routine 04/19/2025 [facility] RESULTS Routine 04/14/2025 HD KINETICS Routine 04/14/2025 POST CHEMISTRY Routine 04/14/2025 CHEMISTRY Routine 04/14/2025 CHEMISTRY Routine 04/12/2025 CHEMISTRY Routine 04/12/2025 HEMATOLOGY Routine 04/12/2025 HEMATOLOGY Routine 04/05/2025 HEMATOLOGY Routine 03/29/2025 HEMATOLOGY Routine 03/22/2025 from Last 3 Months Results * HD KINETICS (06/14/2025) Only the most recent of5 resultswithin the time period is included. % Urea Reduction 77 65 - 80 % [facility] 06/14/2025 06/15/2025 4:1 2 PM CDT Narrative [facility] - 06/15/2025 Unless otherwise specified, test(s) performed at: [facility], [address] [place] [address] OPERATING SYSTEM PROGRAMMER: John Treviño M.D. For any questions, please call customer service at FREQUENCY:MONTHLY Resulting Agency Comment Specimen source: Plasma us Debi Montes De Oca MD LAB BLOOD ORDERABLES Final Re [facility] Performing Organization Address [facility] de Phone Number [facility] See order comments or contact performing lab Unknown, [place] * POST CHEMISTRY (06/14/2025) Only the most recent of5 resultswithin the time period is included. Pathologist [facility] BUN Post Dialysis 7 6 - 19 mg/dL [facility] 06/14/2025 06/15/2025 4:1 2 PM CDT Narrative [facility] - 06/15/2025 Unless otherwise specified, test(s) performed at: [facility], [address] [place] [address] OPERATING SYSTEM PROGRAMMER: John Treviño M.D. For any questions, please call customer service at FREQUENCY:MONTHLY Resulting Agency Comment Specimen source: Plasma us Debi Montes De Oca MD LAB BLOOD ORDERABLES Final Re [facility] Performing Organization Address [facility] de Phone Number [facility] See order comments or contact performing lab Unknown, [place] * (ABNORMAL) HEMATOLOGY (06/14/2025) Only the most recent of13 resultswithin the time period is included. Pathologist [facility] Neutrophils 71.4 40.0 - 75.0 % [facility] [...] 06/15/2025 Unless otherwise specified, test(s) performed at: [facility], [address] [place] [address] OPERATING SYSTEM PROGRAMMER: John Treviño M.D. For any questions, please call customer service at FREQUENCY:MONTHLY Resulting Agency Comment Specimen source: Blood Debi Montes De Oca MD LAB BLOOD ORDERABLES Final Re sult [facility] [employer] [facility] See order comments or contact performing lab Unknown, [place] * (ABNORMAL) [facility] (06/14/2025) Only the most recent of9 resultswithin the time period is included. BUN 31(H) 6 - 19 mg/dL [facility] [...] 06/14/2025 06/15/2025 12: 05 PM CDT Narrative [facility] - 06/15/2025 Unless otherwise specified, test(s) performed at: [facility], [address] [place] [address] OPERATING SYSTEM PROGRAMMER: John Treviño M.D. For any questions, please call customer service at FREQUENCY:MONTHLY Resulting Agency Comment Specimen source: Serum Debi Montes De Oca MD LAB BLOOD ORDERABLES Final Re sult [facility] See order comments or contact performing lab Unknown, [place] * [facility] Lab Results (06/02/2025) Only the most recent of4 resultswithin the time period is included. Pathologist [facility] eKdrt/V 1.56 [facility] spKt/V (Daugirdas II) 1.78 [facility] eKt/V [facility] 1.56 [facility] e Center eKt/V ([place]) 1.55 [facility] WSTDKT/V 3.5 [facility] spKt/V [facility] 1.79 [facility] ge [place] nPCR_HD 0.50 [facility] PCR 44.63 [facility] eNPCR 0.47 [facility] 06/02/2025 06/02/2025 [facility] Ordering Provider LAB BLOOD ORDERABLES Final Result [facility] Center Contact Performing lab Unknown, [place] * (ABNORMAL) SPECIAL CHEMISTRY (04/26/2025) Pathologist [facility] Hemoglobin A1C 8.9(H) 4.8 - 5.9 % [facility] 04/26/2025 04/27/2025 9:1 4 AM CDT Narrative [facility] - 04/27/2025 Unless otherwise specified, test(s) performed at: [facility], [address] [place] [address] OPERATING SYSTEM PROGRAMMER: John Treviño M.D. For any questions, please call customer service at FREQUENCY:OTHER Resulting Agency Comment Specimen source: Blood us Debi Montes De Oca MD LAB BLOOD BANK TEST ORDERABLE S Final Result Performing Organization Address City/[facility]/ZIP Co de Phone Number [facility] See order comments or contact performing lab [facility], [place] * IMMUNO CHEMISTRY (04/19/2025) Hepatitis B Surface Ab 143 mIU/mL [employer] Comment: The anti-HBs (Hepatitis B surface antibody) is greater than or equal to 10 mIU/mL and implies immunity. The patient has either had an antibody response to HBV vaccination, received a transfusion, or has recovered from HBV infection. For post-vaccination antibody testing guidelines for the general public, refer to MMWR October 31, 2005/Vol.54 (No. 16); 1-23, and for healthcare workers, refer to MMWR October 28, 2013/Vol.62 (No. 10); 1-18. Reference Range: <10 mIU/mL Non-Immune >=10 mIU/mL Immune The magnitude of the measured result above 10 mIU/mL is not indicative of the total amount of antibody present. 04/19/2025 04/20/2025 11: 50 AM CDT Narrative [facility] - 04/20/2025 Unless otherwise specified, test(s) performed at: [facility], [address] [place] [address] OPERATING SYSTEM PROGRAMMER: John Treviño M.D. For any questions, please call customer service at FREQUENCY:OTHER Resulting Agency Comment Specimen source: Serum us Debi Montes De Oca MD LAB BLOOD ORDERABLES Final Re sult [facility] See order comments or contact performing lab Unknown, [place] from Last 3 Months Insurance Medicare [facility] Care Teams Managed Care Coordinator Relationship Specialty Start Date End Date Cesar Mendez MD [address] [place] [address] PCP - General Family Medicine 12/29/18
--- OUTSIDE RECORDS SUMMARY | 2025-06-17 10:29 | XMS_ITS | Encounter Summary ---
Author Organization [facility] Address [address] [place] [address] Phone Care Team Providers Care Cash Sales Audit Clerk Name Role Phone Cesar Mendez MD Primary Care Provider [phone] Reason for Visit * Reason Comments Med Refill Encounter Details Date Type Department Care Team (Late st Contact Info) Description 10/07/2021 Refill [facility] [address] [place] [address] Wu Clark MD [address] [place] [address] Social History Tobacco Use Types [...] on filedocumented in this encounter Care Teams Cash Sales Audit Clerk Relationship Specialty Start Date End Date Cesar Mendez MD [address] [place] [id number] PCP - General Family Medicine 12/29/18 documented as of this encounter
--- OUTSIDE RECORDS SUMMARY | 2025-06-17 10:29 | XMS_ITS | Patient Health Record ---
Author Organization [facility] Address [address] [place] [address] Care Team Providers Care Bag Washer Name Role Phone Andrea MONACO, Cesar Primary Care Provider Unavailabl e Reason For Referral No Information Plan Of Treatment No Information Insurance Providers Payer Name Payer Address Payer Phone Subscriber Number Group Number Insured Name Patient Relationship to Insured Coverage Start Date Coverage End Date [place] Medicare [address] [place], [place] [id number] María Saab Self - patient is the insured
--- OUTSIDE RECORDS SUMMARY | 2025-06-17 10:29 | XMS_ITS | Encounter Summary ---
Author Organization [facility] Address [address] [place] [address] Phone Care Team Providers Care Fringe Maker Name Role Phone Cesar Mendez MD Primary Care Provider [phone] Reason for Visit * Reason Comments Med Refill Encounter Details Date Type Department Care Team (Late st Contact Info) Description 05/16/2020 [facility]ill [facility] [address] [place] [address] Wu Clark MD [address] [place] [address] Social History Tobacco Use Types [...] on filedocumented in this encounter Care Teams Fringe Maker Relationship Specialty Start Date End Date Cesar Mendez MD [address] [facility] [place] [address] PCP - General Family Medicine 12/29/18 documented as of this encounter
[2025-06-17 10:32] VITALS: BP 166/67; PULSE 85; RESP 22; TEMP 36.4; O2SAT 97
--- NOTE | 2025-06-17 10:33 | XRR_ITS ---
PROCEDURE INFORMATION: Exam: XR Left Humerus Exam date and time: 06/17/2025 10:42 AM Age: 75 years old Clinical indication: Pain; Shoulder; Left; Additional info: Lt humerus deformity post fall TECHNIQUE: Imaging protocol: Radiologic exam of the left humerus. Views: 2 or more views. COMPARISON: CR XR chest 1V portable [id number] 04/13/2023 2:20 PM FINDINGS: Bones/joints: Oblique distal humeral shaft fracture displaced 2.3 cm is acute. Subtle linear lucencies are seen in the greater tuberosity. Soft tissues: Normal. XR/[place] [id number] IMPRESSION: 1. Acute humeral shaft fracture. 2. Subtle linear lucencies in the greater tuberosity. Suggest dedicated left shoulder radiographs.
--- NOTE | 2025-06-17 10:33 | XRR_ITS ---
PROCEDURE INFORMATION: Exam: XR Left Forearm Exam date and time: 06/17/2025 10:44 AM Age: 75 years old Clinical indication: Pain; Lower or forearm; Left; Additional info: Lt forearm pain post fall TECHNIQUE: Imaging protocol: Radiologic exam of the left forearm. Views: 2 views. COMPARISON: No relevant prior studies available. FINDINGS: Bones/joints: Normal. Soft tissues: Normal. XR/XR forearm LT 2V [id number] IMPRESSION: No acute findings.
--- NOTE | 2025-06-17 10:54 | ED_ITS ---
HPI - Extremity Problem General: Chief complaint: Extremity Injury, Upper Stated complaint: lt arm inj Time Seen by Provider: 06/17/25 10:29 History of Present Illness: HPI: Patient lost control of her walker at home and had a ground-level falls striking her left upper arm on the ground. No head strike, loss conscious, nausea, vomiting, rib pain, wrist pain. Patient states that this happened approximately 20 minutes prior to arrival. States only has pain in her left arm nowhere else. No prodromal symptoms prior to the fall. REVIEW OF SYSTEMS: 10 systems reviewed and otherwise unrema rkable except for those noted in HPI. PHYSCIAL EXAM: Triage vital signs reviewed Gen: A&O NAD HEENT: NCAT, EOMI, not icteric. External ears normal. No rhinorrhea. Moist mucous membranes. Neck: Supple, full range of motion, no observable masses, No meningeal sign. Lungs: No Respiratory distress. CV: RRR, no edema. Abdomen: Soft, nondistended, No rebound tenderness. MSK: Median, ulnar, radial nerve distributions with strength and sensation intact of the left upper extremity. Patient has tenderness and swelling to the mid humerus area, no clavicular tenderness, shoulder tenderness, wrist tenderness. Skin: No rashes, petechiae, lesions. Normal color per patient. Neuro: Normal Gait, Grossly intact. Psych: Appropriate for situation. PROCEDURES: N/A Related Data Home Medications ?Medication ?Instructions ?Recorded ?Confirmed amitriptyline 100 mg tablet 100 mg PO BEDTIME 10/02/20 06/01/25 tamsulosin 0.4 mg capsule 0.4 mg PO QAM 07/18/2206/01 carvedilol 12.5 mg tablet See Rx Instructions .Route . COMPLEX 02/27/23 06/01/25 ropinirole 1 mg tablet 1 mg PO BEDTIME 02/27/23 vit B,C-folic ac 800 mcg-zinc 12.5 1 tab PO QAM 06/01/25 mg-selen-D3 2,000 unit-vit E tablet (RenaPlex-D) folic acid 0.8 mg-vit B comp with 1 tab PO QAM 3 06/01/25 V-hibb-xppeiwc D3 2,000 unit tablet (Dialyvite 800-Ultra D) ferric citrate 210 mg iron tablet 1 tab PO TID 5 06/01/25 (Auryxia) furosemide 80 mg tablet 80 mg PO BID 12/27/24 gabapentin 100 mg capsule 100 mg PO BEDTIME 12/27/24 0 06/01/25 losartan 25 mg tablet 25 mg PO DAILY 12/27/2405/10 Previous Rx's ?Medication ?Instructions ?Recorded flash glucose scanning reader #1 ea 12/15/22 (FreeStyle Anita 2 [place]) flash glucose sensor (FreeStyle #3 ea 12/15/22 Anita 2 Sensor kit) wheel chair #1 ea 04/30/23 semaglutide 2 mg/dose (8 mg/3 mL) 2 mg (0.75 mL) SUBCU T Q7D #9 mL 09/16/23 subcutaneous pen injector (Ozempic) denosumab 60 mg/mL subcutaneous 60 mg SUBCUT .e4iccrsp #1 mL 06/11/24 syringe ([facility]) glipizide 5 mg tablet 5 mg PO TID 90 days #270 tab s 05/02/25 levothyroxine 200 mcg tablet See Rx Instructions .Rout e 06/02/25 .COMPLEX #90 tabs levothyroxine 25 mcg tablet 25 mcg PO DAILY #90 tabs 0 06/09/25 (Synthroid) Allergies Allergy/AdvReac Type Severity Reaction Status Date / Time Penicillins Allergy Mild ALGY-Rash Verified 06/01/25 08:13 propoxyphene (From Darvon) Allergy Mild ALGY-Rash Verified 06/01/25 08:13 codeine Allergy ALGY-Rash Verified 06/01/25 08:13 [facility] PFSH: Medical History (Updated 06/17/25 @ 10:57 by Chris Ye MD) Lower GI bleed requiring more than 4 units of blood in 24 hours, ICU, or surgery (07/2022) Abdominal bloating SOB (shortness of breath) Spondylolisthesis at L4-L5 level Compression fracture of L4 vertebra Compression fracture of thoracic vertebra Cerebellar stroke syndrome Incomplete bladder emptying Hydronephrosis Ureteral obstruction, right HX OF RIGHT URETEROSCOPY WITH STENT PLACEMENT Obstructive pyelonephritis Kidney stones Hemodialysis patient Chronic kidney disease (CKD) Pleural effusion on right Microcytic anemia Type 2 diabetes mellitus Hx of breast cancer History of peritoneal dialysis HTN (hypertension) Hyperlipidemia Hypothyroidism Cataract Closed fracture of left proximal humerus Surgical History History of cholecystectomy S/P hemodialysis catheter insertion Right IJ: Removed History of surgery Right-sided pleurodesis and Pleurx catheter placement S/P dialysis catheter insertion Peritoneal dialysis catheter placement x3 according to patient, revisions had to be performed in [facility] at an outside facility Hemodialysis catheter placement Hx of cataract surgery Hx of tonsillectomy H/O tubal ligation History of surgery on arm H/O skin graft History of lumpectomy of left breast H/O knee surgery History of kidney surgery Family History Mother Stroke Father Stroke Social History Smoking and tobacco/nicotine status: unknown if used tobacco/nicotine Alcohol intake: never Substance/Drug Use: never Lives independently: Yes Household members: spouse Marital status: Current occupational status: employed Do you think of yourself as: Straight/Heterosexual Current gender identity: Female Course Vital Signs: Vital signs: Vital Signs Temperature 97.6 F 06/17/25 10:32 Pulse Rate 85 06/17/25 10:32 Respiratory Rate 22 H 06/17/25 10:32 Blood Pressure 166/67 06/17/25 10:32 Pulse Oximetry 97 06/17/25 10:32 Oxygen Delivery Me thod Room Air 06/17/25 10:32 MDM - Extremity (Nontraumatic) Medical Decision Making MEDICAL DECISION MAKING: Differential diagnoses considered but not limited to: Fracture, strain, sprain, occult other traumatic injury from blunt fall trauma. Vitals nonactionable. Given history, examination, and pretest risk factors, patient without head strike, other areas of tenderness. X-ray shows midshaft humerus fracture. Spoke to on-call orthopedist recommends splint and outpatient follow-up. DISPO: VLADIMIR Ye MD Staff physician, [facility] Emergency Department [phone] All radiology interpretation(s) finalized by discharge Discharge Plan Discharge Patient Disposition: Home Clinical Impression: Humerus shaft fracture Qualifiers: Encounter type: initial encounter Fracture type: closed Fracture morphology: oblique Fracture alignment: displaced Laterality: left Qualified Code(s): S42.332A - Displaced oblique fracture of shaft of humerus, left arm, initial encounter for closed fracture Condition: Stable Prescriptions: No Action amitriptyline 100 mg tablet 100 mg PO BEDTIME (DME) FreeStyle Anita 2 [place] Misc See Rx Instructions .Route Qty: 1 0RF Rx Instructions: check blood sugar (DME) FreeStyle Anita 2 Sensor Kit See Rx Instructions .Route Qty: 3 3RF Rx Instructions: check blood sugar glipizide 5 mg tablet 5 mg PO TID 90 Days Qty: 270 0RF (DME) wheel chair See Rx Instructions .Route .MEDSUPPLY Qty: 1 0RF Rx Instructions: As directed Ozempic 2 mg/dose (8 mg/3 mL) pen injector 2 mg SUBCUT Q7D Qty: 9 0RF Prolia 60 mg/mL syringe 60 mg SUBCUT .w3gwrkdo Qty: 1 0RF Rx Instructions: at infusions levothyroxine 200 mcg tablet See Rx Instructions .ROUTE .COMPLEX Qty: 90 0RF Rx Instructions: TAKE 1 TABLET BY MOUTH DAILY IN ADDITION TO 25 MCG DAILY.; 225 MCG DAILY levothyroxine [Synthroid] 25 mcg tablet 25 mcg PO DAILY Qty: 90 1RF Rx Instructions: To be taken with 200 mcg one tablet daily tamsulosin 0.4 mg capsule 0.4 mg PO QAM carvedilol 12.5 mg tablet See Rx Instructions .ROUTE .COMPLEX Rx Instructions: 1.25 mg orally 3 times weekly as directed the morning of dialysis on , , Sat and Sun ropinirole 1 mg tablet 1 mg PO BEDTIME RenaPlex-D 800 mcg-12.5 mg -2,000 unit tablet 1 tab PO QAM Dialyvite 800-Ultra D 0.8-2,000 mg-unit tablet 1 tab PO QAM furosemide 80 mg tablet 80 mg PO BID losartan 25 mg tablet 25 mg PO DAILY gabapentin 100 mg capsule 100 mg PO BEDTIME Auryxia 210 mg iron tablet 1 tab PO TID Discharge Orders: Discharge ED (Routine); Ordered 06/17/25 Ordered By: Chris Ye Referrals: Juan Ramon Ferrera DO [Physician, Orthopedics] - 1-3 days Referral Note: Call the office on Thursday morning for an appointment on Thursday to see the orthopedic surgeon. Clinical Impression: Humerus shaft fracture Cesar Mendez MD [Primary Care Provider, Family Practice] Discharge Diet: Usual diet Discharge Activity: Resume usual activity Patient Instructions: Opioid Safety, Pain Management, Patient Portal & Maisha Instructions Activity Restrictions/Additional Instructions: It has been a pleasure caring for you in the emergency department. Please ensure that you follow-up with your primary care physician for review of all data obtained during this encounter including any incidental findings and laboratory values. Keep in mind that if your condition worsens in any way, I strongly recommend that you return to the emergency department for repeat evaluation immediately. Take 1000 mg of Tylenol at breakfast lunch and dinner. Print Language: Hungarian Coding Level of Care Code ED Director Business Systems for Supriya Byers
[2025-06-17 11:00] VITALS: RESP 20; O2SAT 98
[2025-06-17] MEDS: oxyCODONE-APAP 5-325 mg Tablet 1 TAB PO (11:00)
[2025-06-17 11:45] VITALS: PULSE 85; O2SAT 96
== END 2025-06-17 11:47 | disposition home or self-care (01) ==
PROVIDERS: Emergency Provider General Practice; PCP Family Medicine
DX: S42.332A Displaced oblique fracture of shaft of humerus, left arm, initial encounter for closed fracture (principal); E78.5 Hyperlipidemia, unspecified; E11.22 Type 2 diabetes mellitus with diabetic chronic kidney disease; I12.9 Hypertensive chronic kidney disease with stage 1 through stage 4 chronic kidney disease, or unspecified chronic kidney disease; N18.9 Chronic kidney disease, unspecified; Z85.3 Personal history of malignant neoplasm of breast; W18.30XA Fall on same level, unspecified, initial encounter
CPT/HCPCS: 29125; 73060; 73090; 99284; J9999

== ENCOUNTER → 2025-06-20 09:05 | Outpatient (BNVA) | payer MEDICARE, OTHER, SELFPAY | PROVIDERS: PCP Family Medicine; Visit Provider Orthopaedic Surgery | DX: S42.332A Displaced oblique fracture of shaft of humerus, left arm, initial encounter for closed fracture (principal); Z01.818 Encounter for other preprocedural examination; E11.9 Type 2 diabetes mellitus without complications; W19.XXXA Unspecified fall, initial encounter | CPT/HCPCS: 73060; 99204 ==

== ENCOUNTER 2025-06-20 12:45 | Oncology outpatient (recurring) (ONCR) | payer MEDICARE, OTHER, SELFPAY ==
[2025-06-14] MEDS: denosumab 60 mg SDV SUBCUT (12:34)
== END 2025-07-09 23:59 | disposition home or self-care (01) ==
PROVIDERS: PCP Family Medicine; Visit Provider Internal Medicine
DX: S42.332A Displaced oblique fracture of shaft of humerus, left arm, initial encounter for closed fracture (principal); X58.XXXA Exposure to other specified factors, initial encounter
CPT/HCPCS: 80053; 83036; 85025; 96372; 96523; J0897

== ENCOUNTER 2025-06-23 14:30 | Inpatient (IN) | payer MEDICARE, OTHER, SELFPAY ==
[2025-06-23] VITALS (27 sets, daily range): BP systolic 71–125; BP diastolic 21–75; PULSE 70–86; RESP 16–24; TEMP 36.1–36.6; O2SAT 91–100; BMI 22.3
--- NOTE | 2025-06-23 06:30 | W.PM.OPSUD ---
Surgery/Procedure H&P Update DATE OF PROCEDURE: June 23, 2025 DATE H&P PERFORMED: 06/20/25 H&P UPDATE INFORMATION: I have reviewed H&P completed within last 30 days, I have examined patient prior to procedure and No changes to prior documentation CHANGES TO PREVIOUS DOCUMENTATION: Patient was seen for preop clearance by Dr. Mendez. PREOP DIAGNOSIS: Left humerus fracture PLANNED PROCEDURE: Operation Date: 06/23/25 07:00 Proposed Procedures p ORIF humerus shaft fracture(Left) - Juan Ramon Ferrera DO
[2025-06-23 06:45] LABS: Hematocrit 23.1 % (36-47); Hemoglobin 7.50 g/dL (11.27-16.99); Mean Corpuscular HGB Conc 32.5 g/dL (30-55); Mean Corpuscular Hemoglobin 30.4 pg (27-33); Mean Corpuscular Volume 93.5 fl (85-98); Nucleated Red Blood Cells % 0 %; Platelet Count 177 10^3/cmm (157-399); Red Blood Count 2.47 10^6/uL (3.85-5.65); White Blood Count 7.00 10^3/uL (3.29-11.43)
--- NOTE | 2025-06-23 06:50 | ANES.PREANE2 ---
Pre-Anesthetic Assessment Height/Weight: Height 1.6 m Weight 57.153 kg Temp Pulse Resp Pulse Ox O2 Del Method 97.4 F L 81 17 96 Room Air 06/23/25 06:07 06/23/25 06:07 06/23/25 06:07 06/23/25 06:07 06/23/25 06:07 Preop Diagnosis: Left humerus fracture Operation Date: 06/23/25 07:00 Proposed Procedures p ORIF humerus shaft fracture(Left) - Juan Ramon Ferrera, DO Familial anesthetic complications: none Was Beta Jessa taken within 24 hours: N/A Was Clonidine taken within 24 hours: N/A Last intake: Intake Last Liquid Date 06/22/25 Last Liquid Time 22:00 Last Solid Date 06/22/25 Last Solid Time 12:00 Social No alcohol and No tobacco Exam alert, oriented x 3, clear to auscultation bilaterally and regular rate & rhythm Airway Mallampati: Class II Dentition: full Pulmonary mod pulm htn CV/HEM Atrial Fibrillation, Anemia, Congestive Heart Failure and Hypertension Kidney Stones (dialysis mwf) Metabolic Thyroid Disease Neuropsych carotid stenosis Anesthetic Plan ASA status: 4 Anesthesia: General and Regional (specify below) Risk of > 500 ml blood loss (7ml/kg in children): No Medications/Allergies Home Medications ?Medication ?Instructions ?Recorded ?Confirmed ?Last Taken ?Type amitriptyline 100 mg tablet 100 mg PO BEDTIME 10/02/20 06/23/25 06/22/25 History tamsulosin 0.4 mg capsule 0.4 mg PO QAM 07/18/22 06/23/25 06/22/25 History flash glucose scanning reader #1 ea 12/15/22 06/20/25 04/30/23 Rx (FreeStyle Anita 2 [place]) flash glucose sensor (FreeStyle #3 ea 12/15/22 06/20/25 04/30/23 Rx Anita 2 Sensor kit) carvedilol 12.5 mg tablet 12.5 mg PO EVERY OTHER DAY 02/27/23 06/23/25 06/23/25 History ropinirole 1 mg tablet 1 mg PO BEDTIME 02/27/23 06/23/25 06/22/25 History vit B,C-folic ac 800 mcg-zinc 12.5 1 tab PO QAM 02/27/23 06/23/25 06/22/25 History mg-selen-D3 2,000 unit-vit E tablet (RenaPlex-D) wheel chair #1 ea 04/30/23 06/20/25 04/30/23 Rx folic acid 0.8 mg-vit B comp with 1 tab PO QAM 08/29/23 06/23/25 06/22/25 History P-jsyp-skqgpnu D3 2,000 unit tablet (Dialyvite 800-Ultra D) semaglutide 2 mg/dose (8 mg/3 mL) 2 mg (0.75 mL) SUBCUT Q7D #9 mL 09/16/23 06/23/25 06/16/25 Rx subcutaneous pen injector (Ozempic) denosumab 60 mg/mL subcutaneous 60 mg SUBCUT .d4mfaosu #1 mL 06/11/24 06/23/25 06/15/25 Rx syringe (Prolia) ferric citrate 210 mg iron tablet 1 tab PO TID 12/27/24 06/23/25 06/21/25 History (Auryxia) furosemide 80 mg tablet 80 mg PO BID 12/27/24 06/23/25 06/22/25 History gabapentin 100 mg capsule 100 mg PO BEDTIME 12/27/24 06/23/25 06/22/25 History losartan 25 mg tablet 25 mg PO DAILY 12/27/24 06/23/25 12/26/24 History levothyroxine 25 mcg tablet 25 mcg PO DAILY #90 tabs 06/09/25 06/23/25 06/22/25 Rx (Synthroid) levothyroxine 200 mcg tablet 200 mcg PO DAILY 06/22/25 06/23/25 06/22/25 History Allergies Allergy/AdvReac Type Severity Reaction Status Date / Time Penicillins Allergy Mild ALGY-Rash Verified 06/22/25 11:43 propoxyphene (From Darvon) Allergy Mild ALGY-Rash Verified 06/22/25 11:43 codeine Allergy ALGY-Rash Verified 06/22/25 11:43 Current Medications Generic Name Dose Route Start Last Admin Trade Name Freq PRN Reason Stop Dose Admin Sodium Chloride 1,000 mls @ 30 mls/hr 06/23/25 06:00 06/23/25 06:49 Sodium Chloride 0.9% IV 06/24/25 05:59 30 mls/hr .Q24H NIKKY Administration PFSH Anesthesia Medical History (Updated 06/20/25 @ 10:17 by Juan Ramon Ferrera DO) Lower GI bleed requiring more than 4 units of blood in 24 hours, ICU, or surgery (07/2022) Abdominal bloating SOB (shortness of breath) Spondylolisthesis at L4-L5 level Compression fracture of L4 vertebra Compression fracture of thoracic vertebra Cerebellar stroke syndrome Incomplete bladder emptying Hydronephrosis Ureteral obstruction, right HX OF RIGHT URETEROSCOPY WITH STENT PLACEMENT Obstructive pyelonephritis Kidney stones Hemodialysis patient Chronic kidney disease (CKD) Pleural effusion on right Microcytic anemia Type 2 diabetes mellitus Hx of breast cancer History of peritoneal dialysis HTN (hypertension) Hyperlipidemia Hypothyroidism Cataract Closed fracture of left proximal humerus Surgical History History of cholecystectomy S/P hemodialysis catheter insertion Right IJ: Removed History of surgery Right-sided pleurodesis and Pleurx catheter placement S/P dialysis catheter insertion Peritoneal dialysis catheter placement x3 according to patient, revisions had to be performed in [facility] at an outside facility Hemodialysis catheter placement Hx of cataract surgery Hx of tonsillectomy H/O tubal ligation History of surgery on arm H/O skin graft History of lumpectomy of left breast H/O knee surgery History of kidney surgery Family History Mother Stroke Father Stroke Social History Smoking and tobacco/nicotine status: unknown if used tobacco/nicotine Alcohol intake: never Substance/Drug Use: never Lives independently: Yes Household members: spouse Marital status: Current occupational status: employed Do you think of yourself as: Straight/Heterosexual Current gender identity: Female Data Anesthesia 06/23/25 Unknown 06/23/25 Unknown Short CBC 06/23/25 Range/Units Unknown WBC 7.00 (3.29-11.43) 10^3/uL Hgb 7.50 L (11.27-16.99) g/dL Hct 23.1 L (36-47) % MCV 93.5 (85-98) fl Plt Count 177 (157-399) 10^3/cmm Neut % (Auto) 82.8 % Neut # (Auto) 5.80 (1.8-7.7) 10^3/uL BMP 06/23/25 Unknown Sodium 131 L Potassium 3.0 L Chloride 94 L Carbon Dioxide 24 BUN 30 H Creatinine 3.3 H Glucose 195 H Calcium 6.9 L Blood Bank 06/23/25 Unknown Blood Type A Positive Rho(D) Type Rh positive Antibody Screen Negative Cardiac Studies: Echocardiogram 03/06/22 Echocardiogram Ultrasound 09/28/20 Holter Monitor 09/10/20
[2025-06-23 07:05] LABS: Anion Gap 16.0 (5-19); Blood Urea Nitrogen 30 mg/dL (8-23); Calcium 6.9 mg/dL (8.5-10.5); Carbon Dioxide 24 mmol/L (22-29); Chloride 94 mmol/L (98-107); Creatinine Clr Calc Pharmacy 12.2383; Glucose 195 mg/dL (65-115); Osmolality Calculated 284 mOsm/kg (285-295); Potassium 3.0 mmol/L (3.5-5.1); Sodium 131 mmol/L (136-145)
--- NOTE | 2025-06-23 09:05 | XR_ITS ---
WS: [id number] Left arm and humerus, 2 views, C ARM fluoroscopy views, 06/23/2025 Clinical Data: OR PICS Comparison: Left arm and humerus, 06/20/2025 Findings: Dr. Ferrera repaired the distal left humeral fracture with a plate and screws. XR/[place] [id number] Impression: Internal fixation of distal left humeral fracture.
--- NOTE | 2025-06-23 09:11 | XR_ITS ---
WS: [id number] Left arm and humerus, 2 views, 06/23/2025 Clinical Data: POST OP Comparison: Left arm and humerus, 06/20/2025 Findings: There is a long plate attached to the distal left humerus with multiple screws reducing the distal humeral fracture. There is a splint assisting in reducing the fracture. There are clips in the left axilla and an infusion port on the left. There is an old proximal left humeral fracture. XR/[place] [id number] Impression: Internal fixation of distal left humeral fracture.
--- NOTE | 2025-06-23 09:34 | PM.OP ---
Operative Report Date of procedure: June 23, 2025 Pre-op diagnosis: Left humerus fracture Post-op diagnosis: same Procedure done: Open reduction internal fixation of left humerus fracture Surgeon: Juan Ramon Ferrera DO Estimated blood loss (mL): 250 Procedure: Open reduction internal fixation of left humerus fracture Patient is brought to the operative suite after undergoing anesthesia was placed in the lateral decubitus position. Left arm was bolstered with blankets. Patient was then prepped and draped in sterile fashion. All areas impingement were well-padded prior to this. Skin incision was made over the back of the arm. The distal tricep fascia was split. The radial nerve was then identified in the muscle belly. And the Larry drain was wrapped around the radial nerve to protect it. The fracture was then identified. Fracture was reduced and then 2 lag screws were placed to hold into position. A Altierre posterior lateral humerus plate was then used. This was an 8 hole plate. The plate was placed on the bone to fit well. 2 lag screws were placed through the plate to further stabilize the fracture. For total of 4 lag screws into the fracture. And then 4 locking screws were placed distally. And then 1 cortical screw in 3 locking screw were placed proximal to the fracture. AP lateral fluoroscopy ensured the fracture and hardware in good position. Wounds were irrigated and closed in a layered fashion. The tricep fascia was closed with 0 Vicryl. Skin was closed with 2-0 Vicryl nylon suture. Sterile dressings were applied patient was placed in a brace and transferred to the PACU in stable condition.
[2025-06-23 10:09] LABS: Hematocrit 24.6 % (36-47); Hemoglobin 8.10 g/dL (11.27-16.99)
--- NOTE | 2025-06-23 10:42 | ANES.PROC ---
Anesthesia Procedures Procedure/Date: 06/23/25 Nerve Block ^: Nerve Block 1: Main Anesthesia: general anesthesia Time Out Performed: Yes Consent: requested by attending/covering physician, from patient, from other, risks and benefits reviewed and patient agrees to proceed Laterality: Left Nerve block location: supraclavicular (L) Anesthesia monitors applied: pulse oximetry, EKG, BP cuff and oxygen Nerve block position: semi sitting Anesthetic Used: ropivicaine 0.5% (20 ml) and with decadron (4 mg) Ultrasound used to: recognize landmarks, visualize and ID brachial plexus and in supraclavicular region Nerve Stimulator Used?: No Interscalene/Femoral BLK: 4 stimuplex 21 g needle used for position and inplane approach, visualize local anesthetic spread and no vascular puncture identified Injection: neg aspiration of heme Patient Tolerated Procedure: well Complications: none Other Information: Diagnosis: Post-op upper extremity pain
--- NOTE | 2025-06-23 10:55 | PC.NURSE ---
Unable to obtain a blood pressure at times during Phase 1. Cuff changed to left and right legs numerous times to obtain blood pressure. Patient unable to remain still at times due to restless leg syndrome.
--- NOTE | 2025-06-23 10:59 | PM.CONSULT ---
Providers/Reason For Consult Consulting Physician/Specialty*: Dr. perez Reason for Consult*: Medical management Attending Physician: Juan Ramon Perez DO Primary Care Provider: Cesar Mendez MD History of Present Illness History of Present Illness María Saab is a 75 year old female past medical history of end-stage renal disease on dialysis, hypothyroidism, type 2 diabetes mellitus, chronic anemia, hypertension, hyperlipidemia who presents to [facility] as outpatient for ORIF of left humerus fracture, estimated blood loss 500 mL, she has received 1 unit of PRBC, hemoglobin pending, currently patient is alert to person, to place, not to time she follows commands no chest pain, shortness of breath no CAD history, no history of stroke, she does report history of anemia, has never required blood transfusions in the last denies any blood or black stools, denies being on blood thinners, she has no complaints except pain, denies any recent use of NSAIDs Review of Systems Const: Denies: fever(s) Card: Denies: chest pain Resp: Denies: dyspnea GI: Denies: abdominal pain Medications/Allergies Home Medications ?Medication ?Instructions ?Recorded ?Confirmed ?Last Taken ?Type amitriptyline 100 mg tablet 100 mg PO BEDTIME 10/02/20 06/23/25 06/22/25 History tamsulosin 0.4 mg capsule 0.4 mg PO QAM 07/18/22 06/23/25 06/22/25 History flash glucose scanning reader #1 ea 12/15/22 06/20/25 04/30/23 Rx (FreeStyle Anita 2 Meherrin) flash glucose sensor (FreeStyle #3 ea 12/15/22 06/20/25 04/30/23 Rx Anita 2 Sensor kit) carvedilol 12.5 mg tablet 12.5 mg PO EVERY OTHER DAY 02/27/23 06/23/25 06/23/25 History ropinirole 1 mg tablet 1 mg PO BEDTIME 02/27/23 06/23/25 06/22/25 History vit B,C-folic ac 800 mcg-zinc 12.5 1 tab PO QAM 02/27/23 06/23/25 06/22/25 History mg-selen-D3 2,000 unit-vit E tablet (RenaPlex-D) wheel chair #1 ea 04/30/23 06/20/2523 Rx folic acid 0.8 mg-vit B comp with 1 tab PO QAM 08/29/23 06/23/25 06/22/25 History A-sbin-qrmkbmt D3 2,000 unit tablet (Dialyvite 800-Ultra D) semaglutide 2 mg/dose (8 mg/3 mL) 2 mg (0.75 mL) SUBCUT Q7D #9 mL 09/16/23 06/23/25 06/16/25 Rx subcutaneous pen injector (Ozempic) denosumab 60 mg/mL subcutaneous 60 mg SUBCUT .d9tbpftz #1 mL 06/11/24 06/23/25 06/15/25 Rx syringe (Prolia) ferric citrate 210 mg iron tablet 1 tab PO TID 12/27/24 06/23/25 06/21/25 History (Auryxia) furosemide 80 mg tablet 80 mg PO BID 12/27/24 06/23/25 06/22/25 History gabapentin 100 mg capsule 100 mg PO BEDTIME 12/27/24 06/23/25 06/22/25 History losartan 25 mg tablet 25 mg PO DAILY 12/27/24 06/23/25 12/26/24 History levothyroxine 25 mcg tablet 25 mcg PO DAILY #90 tabs 06/09/25 06/23/25 06/22/25 Rx (Synthroid) levothyroxine 200 mcg tablet 200 mcg PO DAILY 06/22/25 06/23/25 06/22/25 History Allergies Allergy/AdvReac Type Severity Reaction Status Date / Time Penicillins Allergy Mild ALGY-Rash Verified 06/22/25 11:43 propoxyphene (From Darvon) Allergy Mild ALGY-Rash Verified 06/22/25 11:43 codeine Allergy ALGY-Rash Verified 06/22/25 11:43 Current Medications Generic Name Dose Route Start Last Admin Trade Name Freq PRN Reason Stop Dose Admin Sodium Chloride 1,000 mls @ 30 mls/hr 06/23/25 06:00 06/23/25 06:49 Sodium Chloride 0.9% IV 06/24/25 05:59 30 mls/hr .Q24H NIKKY Administration PFSH Acute PFSH: Medical History Lower GI bleed requiring more than 4 units of blood in 24 hours, ICU, or surgery (07/2022) Abdominal bloating SOB (shortness of breath) Spondylolisthesis at L4-L5 level Compression fracture of L4 vertebra Compression fracture of thoracic vertebra Cerebellar stroke syndrome Incomplete bladder emptying Hydronephrosis Ureteral obstruction, right HX OF RIGHT URETEROSCOPY WITH STENT PLACEMENT Obstructive pyelonephritis Kidney stones Hemodialysis patient Chronic kidney disease (CKD) Pleural effusion on right Microcytic anemia Type 2 diabetes mellitus Hx of breast cancer History of peritoneal dialysis HTN (hypertension) Hyperlipidemia Hypothyroidism Cataract Closed fracture of left proximal humerus Surgical History History of cholecystectomy S/P hemodialysis catheter insertion Right IJ: Removed History of surgery Right-sided pleurodesis and Pleurx catheter placement S/P dialysis catheter insertion Peritoneal dialysis catheter placement x3 according to patient, revisions had to be performed in [facility] at an outside facility Hemodialysis catheter placement Hx of cataract surgery Hx of tonsillectomy H/O tubal ligation History of surgery on arm H/O skin graft History of lumpectomy of left breast H/O knee surgery History of kidney surgery Family History Mother Stroke Father Stroke Social History Smoking and tobacco/nicotine status: unknown if used tobacco/nicotine Alcohol intake: never Substance/Drug Use: never Lives independently: Yes Household members: spouse Marital status: Current occupational status: employed Do you think of yourself as: Straight/Heterosexual Current gender identity: Female Vitals/I&O/Wt Last Vital Signs Temp 97.0 F L 06/23/25 10:45 Pulse 79 06/23/25 10:45 Resp 20 H 06/23/25 10:45 BP 110/63 06/23/25 10:42 Pulse Ox 98 06/23/25 10:45 O2 Del Method Room Air 06/23/25 10:45 O2 Flow Rate 8 06/23/25 10:02 06/22/25 06/23/25 06/23/25 22:59 06:59 14:59 Intake Total 50 / 50 Output Total 500 / 500 Balance -450 / -450 Weight last 48 hrs Weight 57.153 kg Physical Exam Const: COMMON NORMALS: no acute distress ORIENTATION/CONSCIOUSNESS: Yes awake, Yes oriented to person and Yes oriented to place; not oriented to time HENMT: COMMON NORMALS: normocephalic HEAD & SCALP: normocephalic Resp: COMMON NORMALS: normal respiratory effort, No retractions, No use of accessory muscles and clear to auscultation bilaterally AUSCULTATION: clear to auscultation bilaterally Cardio: COMMON NORMALS: regular rate, regular rhythm, S1 normal heart sound present and S2 normal heart sound present RATE: regular rate RHYTHM: regular rhythm HEART SOUNDS: S1 normal heart sound present and S2 normal heart sound present GI: COMMON NORMALS: Normal to inspection, nondistended, normoactive bowel sounds present and non-tender Extremity: COMMON NORMALS: no calf tenderness and no pedal edema NARRATIVE EXTREMITY EXAM: Left arm is in a binder Neuro: SENSORIUM/ORIENTATION: Yes oriented to person, Yes oriented to place and No oriented to time Psych: COMMON NORMALS: mental status grossly normal Data 06/23/25 Unknown 06/23/25 Unknown A&P Assessment and plan 1. Diabetes type 2, uncontrolled: 2. Hypothyroidism: 3. Acute on chronic anemia: Plan: Acute on chronic anemia - In July 2022 patient had a lower GI bleed requiring 4 units of PRBC, she was transferred to tertiary level center - In 2021 she had GI surgery at some point in [place], had a polyp in her appendix which was precancerous, had 3 inches of colon removed -Has a chronic anemia hemoglobin 7.5? -Status post left shoulder surgery, with EBL of 500 mL Plan - Monitor ferritin, monitor iron, monitor TIBC - Monitor hemoglobin every 6 hours - Has received 1 units PRBC, possibility of receiving another unit - Will avoid blood thinners for now - Hemoccult stool - Protonix, Carafate - Monitor hemodynamics closely Type 2 diabetes mellitus - Low-dose sliding scale End-stage renal disease on dialysis, nephrology consulted for dialysis Left humerus fracture - Open reduction internal fixation of left humerus - Pain control as per orthopedic team Hypocalcemia?, Recheck CMP, albumin Full code SCDs for DVT prophylaxis PDMP PDMP Reviewed: Not Reviewed Consult Attestations Medical Necessity Statement: Patient requires hospitalization, outpatient observation, acute on chronic anemia, end-stage renal disease on dialysis, left humeral fracture Diagnoses Diabetes type 2, uncontrolled Hypothyroidism E03.9 Acute on chronic anemia D64.9
[2025-06-23 12:57] LABS: Alanine Aminotransferase 7 U/L (0-33); Albumin Level 3.5 g/dL (3.5-5.2); Alkaline Phosphatase 91 U/L (35-105); Anion Gap 17.6 (5-19); Aspartate Amino Transferase 10 U/L (0-32); Blood Urea Nitrogen 32 mg/dL (8-23); Calcium 6.9 mg/dL (8.5-10.5); Carbon Dioxide 25 mmol/L (22-29); Chloride 90 mmol/L (98-107); Creatinine Clr Calc Pharmacy 11.2185; Globulin 2.9 g/dL (1.3-4.6); Glucose 293 mg/dL (65-115); Osmolality Calculated 286 mOsm/kg (285-295); Potassium 3.6 mmol/L (3.5-5.1); Sodium 129 mmol/L (136-145); Total Protein 6.4 g/dL (6.6-8.7)
[2025-06-23 13:45] LABS: Hematocrit 25.7 % (36-47); Hemoglobin 8.40 g/dL (11.27-16.99)
--- NOTE | 2025-06-23 14:24 | PC.NURSE ---
Reports given to ZAN. Pt AOx4, no complaints of pain at time of transfer to floor. Pt belonging sent with pt. 100mL left of 500mL fluid bolus
[2025-06-23 15:31] LABS: Hematocrit 26.4 % (36-47); Hemoglobin 8.30 g/dL (11.27-16.99)
[2025-06-23] MEDS: pantoprazole 40 mg SDV IVP (15:32)
[2025-06-23 15:55] LABS: Troponin(5th) Baseline 56 ng/L (0-10)
[2025-06-23 15:58] LABS: Iron 16 ug/dL (37-145); Total Iron Binding Capacity 123 mcg/dl; Unsaturated Iron Binding 107 ug/dL (112-347)
[2025-06-23 16:02] LABS: Calcium 6.6 mg/dL (8.5-10.5)
--- NOTE | 2025-06-23 16:07 | ECG_ITS ---
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 Measurements Intervals [place] Rate: 80 P: 0 IA: 0 QRS: 224 QRSD: 126 T: 90 QT: 443 QTc: 513 Interpretive Statements ATRIAL FIBRILLATION SUSPECT LIMB LEAD REVERSAL INFERIOR MYOCARDIAL INFARCTION , OF INDETERMINATE AGE [40+ ms Q WAVE AND/OR ST/T ABNORMALITY IN II/aVF] ANTEROLATERAL MYOCARDIAL INFARCTION , OF INDETERMINATE AGE [40+ ms Q WAVE IN I/aVL/V3-V6] Compared to ECG 12/27/2024 10:03:56 LIMB LEAD REVERSAL IS NEW Electronically Signed On 06-25-2025 17:12:55 CDT by Ronnie Lau M.D. [email or web address] [id number]
[2025-06-23 16:17] LABS: Ferritin 1624 ng/mL (15-150)
[2025-06-23] MEDS: albumin 25 G/100 ML BAG 60 G IV (16:49)
[2025-06-23 18:05] LABS: Troponin 5 2HR 55.77 ng/L (0-10)
[2025-06-23 18:06] LABS: Troponin 5 2HR Delta -0.23 ABS# (0-10)
[2025-06-23 18:33] LABS: Hematocrit 24.4 % (36-47); Hemoglobin 8.00 g/dL (11.27-16.99); Mean Corpuscular HGB Conc 32.8 g/dL (30-55); Mean Corpuscular Hemoglobin 29.6 pg (27-33); Mean Corpuscular Volume 90.4 fl (85-98); Nucleated Red Blood Cells % 0 %; Platelet Count 170 10^3/cmm (157-399); Red Blood Count 2.70 10^6/uL (3.85-5.65); White Blood Count 8.33 10^3/uL (3.29-11.43)
--- NOTE | 2025-06-23 20:07 | ECG_ITS ---
[facility] Date: 2025-06-24 Pat Name: María Saab Department: Room: 264 Gender: Female Staff Registered Nurse: : 1950 Requested By: Cas Arana Order Number: [id number] Baron MD: Ronnie Lau M.D. Measurements Intervals [place] Rate: 89 P: 0 IL: 0 QRS: -52 QRSD: 122 T: 125 QT: 424 QTc: 517 Interpretive Statements ATRIAL FIBRILLATION POSSIBLE ANTERIOR MYOCARDIAL INFARCTION , PROBABLY OLD [30 ms Q WAVE IN V3/V4, OR R < 0.2 mV IN V4] INFERIOR MYOCARDIAL INFARCTION , PROBABLY OLD [40+ ms Q WAVE AND/OR ST/T ABNORMALITY IN II/aVF] Compared to ECG 06/23/2025 15:24:40 No significant changes Electronically Signed On 06-25-2025 17:17:36 CDT by Ronnie Lau M.D. [id number] [id number]
[2025-06-23 20:18] LABS: INR 1.13 (0.8-1.2); Prothrombin Time 15.20 SECONDS (12.1-14.9)
[2025-06-23 20:26] LABS: Lactic Sepsis W/Reflex 3.6 mmol/L (0.5-2.2)
[2025-06-23 20:28] LABS: Reflex Lactate Order REFLEX LACTIC ORDERD
[2025-06-23 22:02] LABS: Lactic Acid level (Lactate) 3.4 mmol/L (0.5-2.2)
[2025-06-23 22:06] LABS: Troponin 5 6HR 57.66 ng/L (0-10); Troponin 5 6HR Delta 1.66 ng/L (0-12)
[2025-06-24] VITALS (34 sets, daily range): BP systolic 69–147; BP diastolic 23–122; PULSE 0–119; RESP 1–31; TEMP 36.9–37.1; O2SAT 85–100
[2025-06-24] MEDS: pantoprazole 40 mg SDV IVP ×2 (03:12→14:48)
[2025-06-24] MEDS: HYDROcodone-acetaminophen 5-325 mg Tablet PO ×3 (03:12→21:02)
[2025-06-24 05:25] LABS: Hepatitis B Surface Antigen Non-Reactive (Nonreactive)
[2025-06-24 05:28] LABS: Hematocrit 21.9 % (36-47); Hemoglobin 7.30 g/dL (11.27-16.99); Mean Corpuscular HGB Conc 33.3 g/dL (30-55); Mean Corpuscular Hemoglobin 29.9 pg (27-33); Mean Corpuscular Volume 89.8 fl (85-98); Nucleated Red Blood Cells % 0.2 %; Platelet Count 198 10^3/cmm (157-399); Red Blood Count 2.44 10^6/uL (3.85-5.65); White Blood Count 8.77 10^3/uL (3.29-11.43)
[2025-06-24 06:05] LABS: Alanine Aminotransferase 8 U/L (0-33); Albumin Level 3.5 g/dL (3.5-5.2); Alkaline Phosphatase 84 U/L (35-105); Anion Gap 16.6 (5-19); Aspartate Amino Transferase 10 U/L (0-32); Blood Urea Nitrogen 41 mg/dL (8-23); Calcium 6.5 mg/dL (8.5-10.5); Carbon Dioxide 25 mmol/L (22-29); Chloride 91 mmol/L (98-107); Creatinine Clr Calc Pharmacy 8.5929; Globulin 2.6 g/dL (1.3-4.6); Glucose 78 mg/dL (65-115); Magnesium 2.0 mg/dL (1.7-2.3); Osmolality Calculated 277 mOsm/kg (285-295); Potassium 3.6 mmol/L (3.5-5.1); Sodium 129 mmol/L (136-145); Total Protein 6.1 g/dL (6.6-8.7)
--- NOTE | 2025-06-24 07:07 | PC.NURSE ---
Addendum entered by Kvng Owens RN 06/24/25 07:43: During initial call to Dr baez, nurse was still attempting to obtain BP. Initially difficult due to fistula on right arm, surgery on left, and restless legs when trying to get pressure on the calf. Nurse was able to obtain a BP eventually, 49/21, checked again and it was 69/42. Peripheral pulses are thready. Nurse placed patient head down, and alerted Dr arteaga. REceived order for 1L bolus, Levophed if bolus ins innefective, and to give narcan. Nurse administered bolus while another nurse obtained narcan. Received ICU orders. Original Note: upon shift change, patient found to be very lethargic. Will look towards voice, but will not respond verbally. B,spo2: 91%. Respiratory rate is 16 to 18 and patient is protecting her airway. Nurse attempted a stroke assessment, but due to lethargy, patient is unable to participate. Nurse alerted Dr baez to AMS, received order for ABG.
[2025-06-24 07:31] LABS: ABG PCO2 36.6 mmHg (35-45); ABG PH Result 7.44 (7.35-7.45); Alveolar-Arterial Oxygen Gradi 6.1 mmHg (5-10); Arterial Blood Gas Hematocrit 22.8 % (37-47); Blood Gas Allen Test Pos; Blood Gas Operator Identificat WALCI; Blood Gas Sample Site Radial, right; Blood Gas Sample Type Arterial; Carboxyhemoglobin 2.7 %THgb (0.4-20.1); Glucose Level-ABG 95.0 mg/dL (70-115); HCO3 ABG 25.0 mmol/L (22-26); Ionized Calcium Level - ABG 0.9 mmol/L (1.1-1.4); Methemoglobin 1.2 % (0.4-1.5); Oxygen Saturation ABG 91.3; PO2 ABG 57.4 mmHg (80.0-100.0); PO2 FiO2 Ratio Arterial Blood 273; Potassium Level - ABG 3.7 mmol/L (3.5-5.0); Sodium Level - ABG 127.0 mmol/L (131-143)
--- NOTE | 2025-06-24 07:43 | PC.NURSE ---
Patient given 0.4 of Narcan at this time by verbal order of Dr. Arana.
[2025-06-24] MEDS: norepinephrine 4 MG/250 ML BAG 37.5 MG IV (08:00)
--- NOTE | 2025-06-24 08:00 | PC.NURSE ---
recieved into icu at this time noted blood pressure unable to obtain fluid bolus in progress attempt to dopple blood pressure unable pt very altered confused and restless constant moving legs and twitching unable to follow commands at this time. iv infusing via port cath levophed started on arrivial at 4 mcg, brief on noted incontinet urine foul smell, anesthesa called for art line and central line , Case here attempt art line 3 attempt left wrist unable to obtain several attempt for blood pressure check very unreliable , dr Arana here aware attempting cut left dressing off to mid arm . still unable to obtain after several tries dressing cut off of open to obtain site . to ct scan stat. check for abd pain and hypotension
--- NOTE | 2025-06-24 08:04 | ECG_ITS ---
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 Measurements Intervals [place] Rate: 104 P: 0 CT: 0 QRS: -60 QRSD: 120 T: 111 QT: 372 QTc: 491 Interpretive Statements ATRIAL FIBRILLATION WITH RAPID VENTRICULAR RESPONSE LEFT AXIS DEVIATION [QRS AXIS < -30] INFERIOR MYOCARDIAL INFARCTION, AGE UNDETERMINED POSSIBLE ANTERIOR MYOCARDIAL INFARCTION , PROBABLY OLD [30 ms Q WAVE IN V3/V4, OR R < 0.2 mV IN V4] INTRAVENTRICULAR CONDUCTION DELAY Compared to ECG 06/24/2025 05:04:22 NO SIGNIFICANT CHANGE Electronically Signed On 06-24-2025 21:44:20 CDT by Ronnie Lau M.D. [id number] [id number]
--- NOTE | 2025-06-24 08:18 | PC.NURSE ---
Nurse called patient family. SPoke to Alexis Saab- . Alerted him to status, interventions we provided so far, and transfer to ICU.
--- NOTE | 2025-06-24 08:57 | CTR_ITS ---
PROCEDURE INFORMATION: Exam: CT Chest With Contrast; Diagnostic Exam date and time: 06/24/2025 9:24 AM Age: 75 years old Clinical indication: Abdominal tenderness; Shortness of breath; Prior surgery; Surgery date: Post-operative (0-2 days); Surgery type: Left humerus; Additional info: Unresponsive, lethargic, hypxia TECHNIQUE: Imaging protocol: Diagnostic computed tomography of the chest with contrast. Radiation optimization: All CT scans at this facility use at least one of these dose optimization techniques: automated exposure control; mA and/or kV adjustment per patient size (includes targeted exams where dose is matched to clinical indication); or iterative reconstruction. Contrast material: OMNIPAQUE 350; Contrast volume: 100 ml; Contrast route: INTRAVENOUS (IV); COMPARISON: CR XR chest 1V portable [id number] 12/27/2024 10:17 AM RADIATION DOSE METRICS: Total DLP (mGy-cm): 1204.99 FINDINGS: Lungs: Right basilar pleural-based lesion measuring 1.2 x 2.2 cm. Pleural spaces: Moderate-sized left-sided pleural effusion. Calcified pleural plaques in the right chest posteriorly. Heart: Cardiomegaly is seen. Coronary arteries: Coronary calcifications are seen. Lymph nodes: Enlarged paratracheal lymph node 2.3 x 1.1 cm. Additional shotty mediastinal lymph nodes. Vasculature: Mild calcified atherosclerotic changes are seen in the thoracic aorta. Bones/joints: Chronic manubrial fracture. Age-indeterminate T7, T8, T9 vertebral body compression deformities. Soft tissues: Surgical shanell are seen in the left axilla. Generalized soft tissue anasarca. PROCEDURE INFORMATION: Exam: CT Abdomen And Pelvis With Contrast Exam date and time: 06/24/2025 9:24 AM Age: 75 years old Clinical indication: Abdominal tenderness; Shortness of breath; Prior surgery; Surgery date: Post-operative (0-2 days); Surgery type: Left humerus; Additional info: Unresponsive, lethargic, hypxia TECHNIQUE: Imaging protocol: Computed tomography of the abdomen and pelvis with contrast. Radiation optimization: All CT scans at this facility use at least one of these dose optimization techniques: automated exposure control; mA and/or kV adjustment per patient size (includes targeted exams where dose is matched to clinical indication); or iterative reconstruction. Contrast material: OMNIPAQUE 350; Contrast volume: 100 ml; Contrast route: INTRAVENOUS (IV); COMPARISON: CT abdomen pelvis w con* [id number] 09/27/2024 10:27 AM RADIATION DOSE METRICS: Total DLP (mGy-cm): 1204.99 FINDINGS: Liver: Liver has a heterogeneous appearance. The liver measures 19.9 cm in length. Liver appears to have irregular border. Edema is seen at the pushpa hepatis. Gallbladder and biliary ducts: Post cholecystectomy changes are seen. Pancreas: Normal. No ductal dilation. Spleen: Normal. No splenomegaly. Adrenal glands: Normal. No mass. Kidneys and ureters: Left renal simple cyst 1.9 x 1.3 cm. Stomach and bowel: No small bowel loop dilatation. Appendix: Post appendectomy changes. Intraperitoneal space: Small free pelvic fluid. Small perihepatic ascites. Vasculature: Moderate calcified atherosclerotic changes are seen in the abdominal aorta. Lymph nodes: Unremarkable. No enlarged lymph nodes. Urinary bladder: Unremarkable as visualized. Reproductive: Unremarkable as visualized. Bones/joints: Prior surgical changes in bilateral femur. Chronic T12, L1, L2 and L4 compression deformities. Mild lumbar spine degenerative changes. Soft tissues: Generalized soft tissue anasarca. CT/CT chest abdpel w/*[id number] IMPRESSION: 1. Right basilar pleural-based lesion measuring 1.2 x 2.2 cm. PET-CT scan for further evaluation to exclude neoplasm is advised. 2. Mediastinal adenopathy. PET-CT scan for further evaluation is advised. 3. Moderate-sized left-sided pleural effusion. 4. Calcified pleural plaques in the right chest posteriorly. Finding could be secondary to prior asbestos exposure. Clinical correlation is advised. 5. Age-indeterminate T7, T8, T9 vertebral body compression deformities. 6. Coronary calcifications. 7. Cardiomegaly. 8. Mild calcified atherosclerotic changes are seen in the thoracic aorta. 9. Generalized soft tissue anasarca. IMPRESSION: 1. Liver has a heterogeneous appearance. Diffuse hepatocellular process can not be excluded. 2. Liver appears to have irregular border. Cirrhotic liver can not be excluded. 3. Generalized soft tissue anasarca, small free pelvic fluid , edema at pushpa hepatis and small perihepatic ascites. 4. Moderate calcified atherosclerotic changes are seen in the abdominal aorta. 5. Hepatomegaly. 6. Generalized soft tissue anasarca. 7. Mild lumbar spine degenerative changes. COMMENTS: Consistent with the [employer]'s Incidental Findings Committee white paper (J Am Ramon Radiol 2018): Any incidental renal lesion less than 1 cm or classified as too small to characterize, or any incidental cystic renal lesion characterized as simple-appearing, is likely benign. No follow-up imaging is recommended for these lesions per consensus recommendations based on imaging criteria.
--- NOTE | 2025-06-24 09:02 | XRR_ITS ---
PROCEDURE INFORMATION: Exam: XR Chest Exam date and time: 06/24/2025 9:28 AM Age: 75 years old Clinical indication: Shortness of breath; Additional info: SOB TECHNIQUE: Imaging protocol: Radiologic exam of the chest. Views: 1 view. COMPARISON: CT chest abdpel w/*[id number] 06/24/2025 9:24 AM FINDINGS: Tubes, catheters and devices: Left chest Port-A-Cath is in position. Lungs: Pulmonary vessels are within normal limits. Right lung is clear. Pleural spaces: Small left-sided pleural effusion. Heart/Mediastinum: Cardiomegaly is seen. Bones/joints: Unremarkable. XR/XR chest 1V portable [id number] IMPRESSION: 1. Small left-sided pleural effusion. 2. Cardiomegaly.
--- NOTE | 2025-06-24 09:03 | USCV_ITS ---
Kaiser María Age: 75 Gender: F : 1950 Exam Date: 06/24/2025 14:04 Ordering Phys: Cas Aarna MD Technologist: Froilan Gutierrez Exam Location: [facility] [place] Indication: sob BP: 69 / 42 HR: 103 Rhythm: Atrial fibrillation Technical Quality: Adequate MEASUREMENTS (Male / Female) Normal Values 2D ECHO LV Diastolic Diameter PLAX 3.7 cm 4.2 - 5.9 / 3.9 - 5.3 cm IVS Diastolic Thickness 0.9 cm 0.6 - 1.0 / 0.6 - 0.9 cm IVS Systolic Thickness 1.2 cm LVPW Diastolic Thickness 0.7 cm 0.6 - 1.0 / 0.6 - 0.9 cm LVPW Systolic Thickness 1.0 cm LVOT Diameter 2.0 cm LV Ejection Fraction 2D Teich 45.1 % LV Ejection Fraction MOD 4C 50.1 % LV Ejection Fraction MOD 2C 48.7 % LV Ejection Fraction 2C AL 49.7 % LA Diameter 3.9 cm RA Systolic Volume 4C AL 43.3 ml RA Systolic Volume 4C MOD 42.3 ml LA Sys Volume AL 64.9 cm cubed LA Sys Volume Index AL 40.6 cm cubed/m squared Aorta at Sinotubular Diameter 1.7 cm IVC Diameter 1.8 cm M-MODE LA Ao Ratio MM 1.5 AV Cusp Separation MM 1.0 cm DOPPLER AV Peak Velocity 189.3 cm/s LVOT Peak Velocity 89.0 cm/s AV Area Cont Eq vti 1.6 cm squared AV Area Cont Eq pk 1.5 cm squared MV Peak Velocity 167.0 cm/s MV Area PHT 4.9 cm squared Mitral E to A Ratio 59.1 TV Peak Velocity 347.5 cm/s TR Peak Velocity 379.0 cm/s TR Peak Gradient 57.5 mmHg TR Mean Velocity 276.0 cm/s TR Mean Gradient 34.0 mmHg TR Velocity Time Integral 92.1 cm PV Peak Velocity 109.0 cm/s RV Ejection Time 0.3 s FINDINGS Left Ventricle Normal left ventricular size. Severe hypokinesis of the septum and inferior maldonado. Overall mildly reduced ejection fraction of 45%. Indeterminate left ventricular diastolic function due to severe mitral annular calcification Right Ventricle Moderately increased right ventricular cavity size. Mildly decreased right ventricular systolic function. Right Atrium Mildly increased right atrial size. Left Atrium Moderately increased left atrial size. Mitral Valve Severe mitral annular calcification. Moderate mitral valve regurgitation. Mild mitral valve stenosis with a mean pressure gradient of 5 with a heart rate of 99 bpm Aortic Valve Aortic valve not well-visualized. Mild aortic valve sclerosis. No aortic valve stenosis or regurgitation. Tricuspid Valve Blrlvyah-yf-khgpvn tricuspid valve regurgitation. Moderately to severely elevated pulmonary pressure, PASP 64 mmHg. No tricuspid valve stenosis. Pulmonic Valve Mild pulmonary valve regurgitation. No pulmonic valve stenosis Pericardium No pleural effusion Aorta Normal size aortic root and proximal ascending aorta. IVC Normal IVC size. Less than 50% IVC collapse with inspiration. Estimated right atrial pressure 8 mmHg. CONCLUSIONS 1. Normal LV size. Mildly reduced left ventricular systolic function with severe hypokinesis of the septum and inferior maldonado. Overall ejection fraction 45%. 2. Moderately dilated right ventricle. Mildly reduced right ventricular systolic function 3. Moderate left atrial enlargement 4. Indeterminate left ventricular diastolic function due to severe mitral annular calcification 5. Moderate to severe pulmonary hypertension, PASP 64 mmHg 6. Moderate mitral valve regurgitation. Mild mitral valve stenosis 7. Moderate to severe tricuspid valve regurgitation 8. Compared to echocardiogram on 03/07/2022, the left ventricular systolic function has mildly decreased and the pulmonary hypertension has mildly increased. Ronnie Lua MD, FACC (Electronically Signed) Final Date: 24 June 2025 15:32 S
[2025-06-24] MEDS: iohexol 350 mg/mL 500 mL Btl (per mL) IV (09:29)
--- NOTE | 2025-06-24 09:30 | ANES.PROC ---
Anesthesia Procedures Procedure/Date: 06/24/25 Arterial Line Diagnosis: Sepsis Procedure Narrative: Several attempts to place A line in L radial, but was unable to due to small vessel and patient's poor ability to cooperate with proper positioning (L humeral fracture)
--- NOTE | 2025-06-24 10:05 | XRR_ITS ---
PROCEDURE INFORMATION: Exam: XR Chest Exam date and time: 06/24/2025 10:16 AM Age: 75 years old Clinical indication: Other vascular access device placement or adjustment; Central line, non-tunnelled; Additional info: Central line placement TECHNIQUE: Imaging protocol: Radiologic exam of the chest. Views: 1 view. COMPARISON: CR (CHEST, ) 06/24/2025 9:28 AM FINDINGS: Tubes, catheters and devices: A left infusion port terminates in the SVC. A right central line has been inserted. It courses into the jugular system, tip not included on the uppermost portion of the image. Lungs: Hypoventilatory changes in the lower lobes. Pleural spaces: Unremarkable. No pleural effusion. No pneumothorax. Heart/Mediastinum: Endovascular stent in the mid upper arm on the right side. Mild cardiomegaly. Bones/joints: Unremarkable. XR/XR chest 1V portable [id number] IMPRESSION: 1. The right central line is malpositioned. 2. The left infusion port terminates near the atriocaval junction.
--- NOTE | 2025-06-24 10:30 | ANES.PROC ---
Anesthesia Procedures Procedure/Date: 06/24/25 Central Venous Insert: Central Venous Line: R IJ Time Out Performed: Yes Consent: requested by attending/covering physician, from patient, from other, risks and benefits reviewed and patient agrees to proceed Central Line: New Anesthesia monitors: pulse oximetry Vein cannulated: right internal jugular Ultrasound used: to identify patency to vessel and to visualize needle entry to vein Post procedure: Obtain Chest X-Ray Additional Comments: R IJ placed, but ended up tracking to subclavian vein. 2nd and 3rd attempt both displayed resistance to threading guidewire. Suspected Port was causing obstruction and called another provider to attempt alternate anatomical site, Subclavian
[2025-06-24 10:44] LABS: Glucose Urine UA 2+ (Normal); Nitrate Urine Negative (Negative); Specific Gravity, Urine 1.015 (1.005-1.030)
--- NOTE | 2025-06-24 10:52 | P.PN_ITS ---
Subjective 2 Subjective: Patient seen and examined later this morning. Patient currently in ICU. Patient currently having central line placed. Originally they had attempted an art line on the operative extremity left upper extremity dressing was taken down dressing incision inspected it is clean dry and intact. Will be redressed once procedure is done by the nursing team. Case discussed with hospitalist appreciate their management, I spoke with family and updated them on patient's current condition and they will continue to be updated by hospitalist at this time. Vitals/I&O/Wt Last Vital Signs Temp 98.8 F 06/24/25 07:42 Pulse 91 06/24/25 07:42 Resp 14 06/24/25 07:42 BP 69/42 06/24/25 07:42 Pulse Ox 90 06/24/25 07:42 O2 Del Method Room Air 06/24/25 07:42 O2 Flow Rate 0.5 06/23/25 13:55 06/23/25 06/24/25 06/24/25 22:59 06:59 14:59 Intake Total 1370 / 2520 290 / 2810 Output Total 400 / 900 Balance 1370 / 2020 -110 / 1910 Weight last 48 hrs Weight 126 lb Weight 126 lb Weight 126 lb Physical Exam 2 Narrative: Patient is awake and oriented she is able to follow commands Examination left upper extremity dressing subsequently taken down incisions inspected sutures all in place is clean dry and intact patient left upper extremity is warm well-perfused. Due to patient's low blood pressure diminished radial pulse she is able to perform all cardinal hand movements she is able to perform AIN/PIN/radial/ulnar/median nerve all appears to be intact. Sensations intact light touch distally to radial/ulnar/median nerve distribution. Normal postoperative swelling and ecchymosis about the incision site and upper arm, compartments are soft and compressible. Data 06/24/25 11:29 06/24/25 11:29 A&P Assessment and plan 1. Postoperative state: 2. Status post open reduction and internal fixation (ORIF) of fracture: 3. Postoperative anemia: Plan: Postop day 1 left humeral shaft open reduction internal fixation nonweightbearing left upper extremity Pain control Labs reviewed Internal medicine on board for medical management Patient currently in ICU requiring central line placement Patient received a unit PRBC [address] Patient currently has low blood pressure and receiving pressure support Dressings taken down and incision inspected clean dry and intact Instructed nursing on appropriate dressing reapplication once central line is placed and will reapply Xeroform 4 x 4's ABD Curlex soft roll Omid wrap and reapply patient's elbow brace Family updated after rounding from orthopedic standpoint. Will defer to the internal medicine/hospitalist team about patient's medical condition at this time. Orthopedics will continue to follow PDMP PDMP Reviewed: Not Reviewed Attestations 2 Medical Necessity Statement*: Ongoing care postop left humeral shaft ORIF patient requiring transfusion today and central line placement as well as requiring pressor support. Coding Level of Care Code Acute Code for Chg Fwd Diagnoses Postoperative state Z98.890 Status post open reduction and internal fixation (ORIF) of fracture Z98.890; Z87.81 Postoperative anemia D64.9 Time Spent (min) 35
--- NOTE | 2025-06-24 10:57 | PHA.VACGOAL ---
Vancomycin Goal - Goal Vancomycin Goal:: 15-20 mg/L Vancomycin Indication:: Other - Therapy Day of therpy:: Day []of [] . 1 Actual body weight (kg): 126 lb - Data Labs: WBC 8.77 10^3/uL (3.29-11.43) 06/24/25 04:55 RBC 2.44 10^6/uL (3.85-5.65) L 06/24/25 04:55 Hgb 7.30 g/dL (11.27-16.99) L 06/24/25 04:55 Hct 21.9 % (36-47) L 06/24/25 04:55 MCV 89.8 fl (85-98) 06/24/25 04:55 MCH 29.9 pg (27-33) 06/24/25 04:55 MCHC 33.3 g/dL (30-55) 06/24/25 04:55 RDW 19.5 % (12.1-15.1) H 06/24/25 04:55 Sodium 129 mmol/L (136-145) L 06/24/25 04:55 Potassium 3.6 mmol/L (3.5-5.1) 06/24/25 04:55 Chloride 91 mmol/L (98-107) L 06/24/25 04:55 Carbon Dioxide 25 mmol/L (22-29) 06/24/25 04:55 Anion Gap 16.6 (5-19) 06/24/25 04:55 BUN 41 mg/dL (8-23) H 06/24/25 04:55 Creatinine 4.7 mg/dL (0.5-0.9) H 06/24/25 04:55 GFR Calculation Not Reportable 06/24/25 04:55 Treatment plan:: new consult
--- NOTE | 2025-06-24 11:00 | PC.NURSE ---
unable to obtain line Dr Hwang here inserted left ij cxr done , and mejias inserted with dark cloudy urine return, spec to lab unable to do dialysis today due to hypotension , on levophed gtt at 10mcg more awake and able to respond remains lethargic , family here at bedside , dr vang here aware of site left arm to redress later and replace imobilizer,
--- NOTE | 2025-06-24 11:25 | XRR_ITS ---
PROCEDURE INFORMATION: Exam: XR Chest Exam date and time: 06/24/2025 11:27 AM Age: 75 years old Clinical indication: Other vascular access device placement or adjustment; Central line, non-tunnelled; Prior surgery; Surgery date: 6+ months; Surgery type: Port; Additional info: Left central line placement TECHNIQUE: Imaging protocol: Radiologic exam of the chest. Views: 1 view. COMPARISON: CR (CHEST, ) 06/24/2025 10:16 AM FINDINGS: Tubes, catheters and devices: Left-sided central line tip is at innominate vein. No pneumothorax. XR/XR chest 1V portable [id number] IMPRESSION: Left-sided central line tip is at innominate vein. No pneumothorax.
--- NOTE | 2025-06-24 11:31 | PC.HD ---
HD orders for 06/24/2025: Patient with low BPs, moved to ICU, unstable. Per Dr. Arredondo, hold HD today and attempt tomorrow.
[2025-06-24 11:42] LABS: Hematocrit 23.3 % (36-47); Hemoglobin 7.50 g/dL (11.27-16.99); Mean Corpuscular HGB Conc 32.2 g/dL (30-55); Mean Corpuscular Hemoglobin 29.1 pg (27-33); Mean Corpuscular Volume 90.3 fl (85-98); Nucleated Red Blood Cells % 0 %; Platelet Count 226 10^3/cmm (157-399); Red Blood Count 2.58 10^6/uL (3.85-5.65); White Blood Count 14.07 10^3/uL (3.29-11.43)
[2025-06-24 12:04] LABS: Alanine Aminotransferase 16 U/L (0-33); Albumin Level 3.4 g/dL (3.5-5.2); Alkaline Phosphatase 198 U/L (35-105); Anion Gap 20.0 (5-19); Aspartate Amino Transferase 25 U/L (0-32); Blood Urea Nitrogen 41 mg/dL (8-23); Calcium 6.1 mg/dL (8.5-10.5); Carbon Dioxide 20 mmol/L (22-29); Chloride 90 mmol/L (98-107); Creatinine Clr Calc Pharmacy 9.3922; Globulin 2.1 g/dL (1.3-4.6); Glucose 210 mg/dL (65-115); Osmolality Calculated 278 mOsm/kg (285-295); Potassium 4.0 mmol/L (3.5-5.1); Sodium 126 mmol/L (136-145); Total Protein 5.5 g/dL (6.6-8.7)
[2025-06-24] MEDS: albumin 50 G/200 ML BAG 60 G IV (12:05)
[2025-06-24 12:09] LABS: Procalcitonin 0.45 ng/mL (0-0.5)
[2025-06-24] MEDS: water for injection-sterile 10 ML (12:18)
[2025-06-24 12:21] LABS: Lactate (Lactic Acid level) 1.7 mmol/L (0.5-2.2)
[2025-06-24 12:23] LABS: Troponin(5th) Baseline 105 ng/L (0-10)
--- NOTE | 2025-06-24 13:07 | PM.CCN ---
Critical Care Event Note Consulted by hospitalist for placement of a central line. They are having difficulty with placement due to the patient's PowerPort. Patient is requiring multiple medications and can only give a single meant to the PowerPort other medications are not compatible or requesting this electrolyte replacement. Critical Care Time Code activated: No Critical Care Time (min): 0 Procedures Central Line Placement^ Right IJ: Additional comments: Initial attempt by anesthesiology and right IJ repeat attempted there I was able to easily cannulate the vessel but cannot get the wire to advance enough to place the catheter. I am concerned that subclavian catheter was deflected by the PowerPort line into the subclavian previously and I cannot get the wire to advance enough that I believe it would be able to get the line to remain in the superior vena cava. Wire withdrawn attempt abandoned and switched to the left IJ. Left IJ: Time out performed: Yes Patient placed on monitor/pulse ox: Yes prep: mask, gown and gloves Central line prep: Chlorhexidine scrub Local anesthesia used: lidocaine 1% Amount of anesthesia used (ml): 5 Central line lumen inserted: triple Post procedure: sutured in place, good blood return, all ports aspirated, flushed, capped and sterile dressing applied Post procedure x-ray: tip of catheter in good position (In the innominate see below) Patient tolerated procedure: well Complications: none Additional comments: Able to advance the wire and also able to advance the triple-lumen however did not advance completely concerned about positioning in relation of the PowerPort. When I did try to advance it completely it deflects and begins to go up the superior vena cava. Withdraw 4 cm the tip remains in the innominate. It should be fully functional there all of the ports can draw and flush without difficulty discussed with the attending at this point given his position in relation of the power port line and would not try to further advance that it should and it can be used safely there. Positioning confirmed by ultrasound. Coding Level of Care Code Acute Code for Chg Fwd
--- NOTE | 2025-06-24 14:18 | PC.NURSE ---
prbc infusing as per order and albumin infusing has had 2 liter total of fluid bolus now awake and responding to questions oriented x3 at this time , taking small amts of ice cream and applesauce po meds given and dressing reapplied to left arm area , immobilizer loosly applied levophed gtt remains at 10 mcg attempting to wean at this time , echo in progress
--- NOTE | 2025-06-24 14:26 | P.PN_ITS ---
Subjective 2 Subjective: Patient was examined multiple times throughout the morning into the afternoon - Early in the morning she was seen, jalne sing staff alerted me that patient was not responding appropriately, appeared lethargic, with soft blood pressures 69/42, no strokelike symptoms, she was not responding appropriately, not requiring oxygen - Order placed to place patient in [facility], received a 1 L bolus, orders for her to move down to ICU, ordered for 1 unit of blood, order placed for ABG - Patient was evaluated, and medical celestina ors she would awaken to sternal rub, say her name, but fall back asleep I cannot discern any facial droop, she is moving bilateral upper and lower extremities however her left arm is in a immobilizer - It is difficult to get a blood pressur e on her as she has AV fistula in the right arm, left arm cannot get a blood pressure as she is in an immobilizer, nursing staff have been try to get a blood pressure on her left leg but she keeps moving it due to agitation, encephalopathy - On examination pupils are equal round reactive to light, lungs clear to auscultation bilaterally, heart rate is in the 80s, normal sinus rhythm, abdomen soft, slightly distended, good bowel sounds, she is tender in her abdomen, no CVA tenderness, she has no mottling of her lower extremities, DP PT pulses although are diminished, cap refill is greater than 3 seconds, -Blood sugar was 119 - Concerns for shock, differential at th is point was hemorrhagic shock given her history of anemia, concerns for septic shock, also the possibility of cardiogenic shock - No history of rash, no history of anap hylaxis, - Nursing staff do report that she recei lucio hydrocodone, she has received her Requip, gabapentin, Elavil, distributive shock certainly could be a possibility, certainly could explain her encephalopathy - Orders placed for CBC, CMP, lactic aci d, troponin series, UA, CT chest abdomen pelvis, started on broad-spectrum metabolic therapy vancomycin, Zosyn - Patient was moved down to ICU, seen in ICU, placed on 4 of Levophed, receiving a liter bolus, she is becoming much more alert awake - She is alert to person, to place, not to time she can follow commands, still drowsy, she is in a lot of pain given her left shoulder immobilizer, she moves bilateral lower extremities, moves her right arm, she is able to squeeze my fingers able to smile for me, she is able to stick out her tongue - It was difficult to still get a blood pressure on her cannot get a blood pressure of the right arm given her AV fistula, - With the help of nursing staff I was a ble to cut down some of patient's surgical site of her forearm as it was wrapped in Omid bandage to get a blood pressure - However blood pressure cuff would not read, would not read on the left or right leg, I could palpate a DP PT pulses I can palpate a pulse in her femoral pulse, can get a radial pulse, she has a jugular pulse - Nursing staff placed Spears catheter, u rine shows evidence of sedimentation, is dark, evidence of UTI perhaps patient has septic shock from a UTI, UA sent down, CT abdomen was pending to evaluate for obstructive uropathy - I consulted anesthesia for a arterial line, central line placement - Anesthesia could not put an arterial l ine in the right arm given her AV fistula, but did try the left lower extremity could not get a arterial line in place - Spoke to Dr. Brady, about taking down the immobilizer so it be easier to try to place arterial line in left arm, he said that that would be reasonable - Immobilizer removed, however anesthesi a still could not get a arterial line in left wrist, arm is wrapped - Arm was unwrapped by me, with help of nursing staff to observe surgical site, surgical site is swollen, looks intact, but difficult to place arterial line in, not attempted to get a blood pressure reading, given the swelling and the location of the surgical site - Spoke to Dr. Brady he said that it is okay he would come back to the ICU and likely rewrap surgical site - Anesthesia try to place a arterial claudia e in groin, but was unsuccessful - At this point patient was examined aga in she is alert to person, to place, not to time she follows commands, she is hurting but she is able to follow commands, has no complaints except abdominal pain, she moves bilateral lower extremities, no facial droop, slurring of words, she moves her right arm she is able to squeeze my fingers, able to smile for me - She does have a measurable blood press ure on her left leg, MAP is greater than 65 - Patient was taken to CAT scan to do CT chest abdomen pelvis - She is back from CAT scan anesthesia t ried again to place an arterial line which was unsuccessful, tried to place a central line which was unsuccessful -Reviewed ABG with respiratory therapy, no significant pH 7.44, PCO2 36.6, PO2 57.4, lactic acid pending, - Dr. Gerber from emergency room came to the ICU to help for central line placement as patient has a port in place, but has multiple medications, pressors for which she requires multiple lines and nursing staff could not get a peripheral IV - Dr. Gerber was able to place left IJ central line however it would not pass beyond the innominate vein, due to patient's port, he tried maneuvering it multiple times, but it flushed well, patient tolerated procedure - Patient was seen thereafter, currently alert to person, to place, to time she can follow commands I cannot discern a facial droop, no slurring of words, she can move bilateral upper lower extremities, good DP PT pulses, cap refill is less than 3 seconds, no mottling, she has good popliteal pulses bilaterally, she has good femoral pulses bilaterally, she looks like she is perfusing better, MAP is consistent greater than 65 she is up to 10 of Levophed receiving albumin, fluid, IV antibiotics - Discussed with patient and family memb ers at bedside her CAT scan findings no obvious evidence of obstructive uropathy or bowel obstruction, she does have a left pleural effusion, nothing acute, discussed her UA, likely patient has sepsis and septic shock from urinary tract infection, also component of narcotics, anesthetic, - Patient tells me that her blood pressu res always run low, - Discussed monitor in the ICU, maintain MAP around 65, monitoring her kidney function and her liver function monitor mentation, will do a cardiac workup in addition, patient and family voiced understanding she is hungry she would like to eat, discussed with nursing staff that she can have cardiac diet - Reexamined again, she is on 2 L, revie wed blood work serum sodium 126, bicarb 20, anion gap 20, lactic acid 1.7, hemoglobin 7.5 -Troponin 105 no chest pain complaints, EKG no acute ST-T wave changes, will continue to monitor, blood thinners currently relatively contraindicated as she has had postoperative bleeding, 500 mL blood loss has required 1 unit PRBCs currently requiring 1 unit PRBC has a history of GI bleeds - She will be receiving 1 unit PRBC, - Currently attending celi Poe gy is holding off on dialysis for today given pressor requirements Vitals/I&O/Wt Last Vital Signs Temp 98.5 F 06/24/25 12:28 Pulse 92 06/24/25 14:00 Resp 22 H 06/24/25 12:28 BP 147/29 06/24/25 12:28 Pulse Ox 98 06/24/25 12:28 O2 Del Method Room Air 06/24/25 07:42 O2 Flow Rate 0.5 06/23/25 13:55 06/23/25 06/24/25 06/24/25 22:59 06:59 14:59 Intake Total 1370 / 2520 290 / 2810 260 / 260 Output Total 400 / 900 900 / 900 Balance 1370 / 2020 -110 / 1910 -640 / -640 Weight last 48 hrs Weight 57.153 kg Weight 57.153 kg Weight 57.153 kg Physical Exam 2 Const: COMMON NORMALS: no acute distress EXAM LIMITATIONS: altered mental status ORIENTATION/CONSCIOUSNESS: Yes awake, Yes oriented to person, Yes oriented to place and Yes oriented to time HENMT: COMMON NORMALS: normocephalic HEAD & SCALP: normocephalic Eye: COMMON NORMALS: Equal, round and reactive pupils present PUPIL: Yes Equal, round and reactive pupils present OTHER: Right eye blindness, Neck/C-Spine: COMMON NORMALS: no JVD Lymph: LYMPHATIC: no lymphadenopathy noted Chest: COMMONS NORMALS: normal inspection of the chest Resp: COMMON NORMALS: normal respiratory effort, No retractions and No use of accessory muscles AUSCULTATION: wheezes Cardio: COMMON NORMALS: no JVD, regular rate, regular rhythm, S1 normal heart sound present and S2 normal heart sound present RATE: regular rate RHYTHM: regular rhythm HEART SOUNDS: S1 normal heart sound present and S2 normal heart sound present GI: COMMON NORMALS: Normal to inspection, nondistended, normoactive bowel sounds present and non-tender Extremity: COMMON NORMALS: no pedal edema Neuro: SENSORIUM/ORIENTATION: Yes oriented to person, Yes oriented to place and Yes oriented to time Skin: NARRATIVE SKIN EXAM: Left arm, surgical site, looks clean and dry, swelling, no warmth, Data 06/24/25 11:29 06/24/25 11:29 A&P Assessment and plan 1. Postoperative state: 2. Status post open reduction and internal fixation (ORIF) of fracture: 3. Postoperative anemia: 4. Septic shock: 5. Diabetes type 2, uncontrolled: 6. Hypothyroidism: 7. Lower GI bleed requiring more than 4 units of blood in 24 hours, ICU, or surgery: 8. End stage renal disease: 9. Anemia: 10. Acute encephalopathy: 11. NSTEMI (non-ST elevated myocardial infarction): Plan: Acute encephalopathy, resolving -likely secondary to hypotension - Likely secondary metabolic acidosis - Likely secondary to hyponatremia - Likely sec to UTI -Acute on chronic anemia - Neurochecks - NIH stroke scale -aspiration precautions Septic shock secondary to urinary tract infection - Maintain MAP more than 65, currently on 10 of Levophed - Status post sepsis bolus - Status post albumin - Continue vancomycin - Continue Zosyn - Follow blood cultures - Follow urine culture Acute on chronic anemia with postoperative anemia - Hemoglobin 7.5, EBL 500, -Will transfuse 1 unit PRBC - Protonix, Carafate End-stage renal disease, hold off on dialysis, given hypotension Left upper extremity, left humerus fracture -Open reduction internal fixation of left humerus Hypocalcemia - Calcium 6.6, corrected calcium 7.1 -pth, vitamin d, ionized calcium Hyponatremia, monitor serum sodium NSTEMI, serial EKGs, serial troponins, telemetry monitoring History of GI bleed Type 2 diabetes mellitus, low-dose insulin scale Right basilar pleural base lesion 1. Right basilar pleural-based lesion measuring 1.2 x 2.2 cm. PET-CT scan for further evaluation to exclude neoplasm is advised. 2. Mediastinal adenopathy. PET-CT scan for further evaluation is advised. With calcified pleural plaques in the right chest posteriorly Plan - Will need to follow-up with oncology as outpatient Possible liver cirrhosis?, Will have to follow-up with GI as outpatient PDMP PDMP Reviewed: Not Reviewed Attestations 2 Medical Necessity Statement*: Patient requires hospitalization, inpatient, greater than 2 midnights, for septic shock, UTI, acute encephalopathy, acute renal failure on dialysis, hyponatremia, increased metabolic acidosis, NSTEMI, acute on chronic Coding Level of Care Code Critical Care >/= 30 minutes Critical care time (in minutes): 90 The high probability of a clinically significant, sudden or life threatening deterioration, as referenced in this documentation, required my full and direct attention, intervention and personal management. The critical care time shown is in addition to time spent performing any reported separately billable procedures and includes the following: [x] Data and vital sign review and interpretation [x ] Patient assessment, examination and intervention [x] Medication orders and management [x] Patient/Family updates as able [x] Care Coordination and Documentation. Diagnoses Postoperative state Z98.890 Status post open reduction and internal fixation (ORIF) of fracture Z98.890; Z87.81 Postoperative anemia D64.9 Septic shock A41.9; R65.21 Diabetes type 2, uncontrolled Hypothyroidism E03.9 Lower GI bleed requiring more than 4 units of blood in 24 hours, ICU, or surgery K92.2 End stage renal disease N18.6 Anemia D64.9 Acute encephalopathy G93.40 NSTEMI (non-ST elevated myocardial infarction) I21.4 Sepsis Event Note Evaluation Current stage of sepsis: septic shock Initial hypotension due to sepsis/infection: SBP < 90 mmHg Persistent hypotension due to sepsis/infection: SBP < 90 mmHg Possible source: genitourinary Focused Exam Vital Signs Temp Pulse Resp BP Pulse Ox O2 Del Method 06/24/25 14:00 92 06/24/25 12:28 98.5 F 107 H 22 H 147/29 98 06/24/25 07:42 98.8 F 91 14 69/42 90 Room Air Capillary refill: > 3 Seconds Peripheral pulse strength: 2+ Slightly Diminished Peripheral pulse location: Radial Skin exam: normal turgor Date exam was performed: 06/24/25 Time exam was performed: 15:01 Problem List 1. Postoperative state: Status: Acute 2. Status post open reduction and internal fixation (ORIF) of fracture: Status: Acute 3. Postoperative anemia: Status: Acute 4. Septic shock: Status: Acute 5. Diabetes type 2, uncontrolled: Status: Chronic 6. Hypothyroidism: Status: Chronic 7. Lower GI bleed requiring more than 4 units of blood in 24 hours, ICU, or surgery: Status: Resolved 8. End stage renal disease: Status: Chronic Comment: Currently on hemodialysis Thursday, Thursday, Thursday 9. Anemia: Status: Chronic Comment: Stable 10. Acute encephalopathy: Status: Acute 11. NSTEMI (non-ST elevated myocardial infarction): Status: Acute
[2025-06-24 14:59] LABS: Thyroid Stimulating Hormone 1.23 uIU/mL (0.27-4.20)
--- NOTE | 2025-06-24 15:44 | PM.CONSULT ---
Providers/Reason For Consult Consulting Physician/Specialty*: kommana/ nephrolgy Reason for Consult*: ESRD Attending Physician: Juan Ramon Ferrera DO Primary Care Provider: Cesar Mendez MD History of Present Illness History of Present Illness María Saab is a 75 year old female Patient is a 75-year-old male female with past medical history of end-stage renal disease on dialysis, hypothyroidism diabetes chronic anemia hypertension dyslipidemia initially admitted after ORIF of left humerus fracture. Patient received 1 unit of PRBCs postop. This morning patient was noted to be hypotensive with systolic blood pressure in the 60s and transferred to ICU, received IV fluid boluses and currently on pressors. . Review of Systems Narrative: negative Medications/Allergies Home Medications ?Medication ?Instructions ?Recorded ?Confirmed ?Last Taken ?Type amitriptyline 100 mg tablet 100 mg PO BEDTIME 10/02/20 06/23/25 06/22/25 History tamsulosin 0.4 mg capsule 0.4 mg PO QAM 07/18/22 06/23/25 06/22/25 History flash glucose scanning reader #1 ea 12/15/22 06/24/25 04/30/23 Rx (FreeStyle Anita 2 [place]) flash glucose sensor (FreeStyle #3 ea 12/15/22 06/24/25 04/30/23 Rx Anita 2 Sensor kit) carvedilol 12.5 mg tablet 12.5 mg PO EVERY OTHER DAY 02/27/23 06/23/25 06/23/25 History ropinirole 1 mg tablet 1 mg PO BEDTIME 02/27/23 06/23/25 06/22/25 History vit B,C-folic ac 800 mcg-zinc 12.5 1 tab PO QAM 02/27/23 06/23/25 06/22/25 History mg-selen-D3 2,000 unit-vit E tablet (RenaPlex-D) wheel chair #1 ea 04/30/23 06/24/25 04/30/23 Rx folic acid 0.8 mg-vit B comp with 1 tab PO QAM 08/29/23 06/23/25 06/22/25 History D-cvhg-wbxhuat D3 2,000 unit tablet (Dialyvite 800-Ultra D) semaglutide 2 mg/dose (8 mg/3 mL) 2 mg (0.75 mL) SUBCUT Q7D #9 mL 09/16/23 06/23/25 06/16/25 Rx subcutaneous pen injector (Ozempic) denosumab 60 mg/mL subcutaneous 60 mg SUBCUT .p6jxijxp #1 mL 06/11/24 06/23/25 06/15/25 Rx syringe (Prolia) ferric citrate 210 mg iron tablet 1 tab PO TID 12/27/24 06/23/25 06/21/25 History (Auryxia) furosemide 80 mg tablet 80 mg PO BID 12/27/24 06/23/25 06/22/25 History gabapentin 100 mg capsule 100 mg PO BEDTIME 12/27/24 06/23/25 06/22/25 History losartan 25 mg tablet 25 mg PO DAILY 12/27/24 06/23/25 12/26/24 History levothyroxine 25 mcg tablet 25 mcg PO DAILY #90 tabs 06/09/25 06/23/25 06/22/25 Rx (Synthroid) levothyroxine 200 mcg tablet 200 mcg PO DAILY 06/22/25 06/23/25 06/22/25 History Allergies Allergy/AdvReac Type Severity Reaction Status Date / Time Penicillins Allergy Mild ALGY-Rash Verified 06/22/25 11:43 propoxyphene (From Darvon) Allergy Mild ALGY-Rash Verified 06/22/25 11:43 codeine Allergy ALGY-Rash Verified 06/22/25 11:43 Current Medications Generic Name Dose Route Start Last Admin Trade Name Freq PRN Reason Stop Dose Admin Hydrocodone Bitart/Acetaminophen 1 - 2 tab 06/23/25 09:25 06/24/25 12:56 Hydrocodone-Acetaminophen 5-325 Mg Tablet PO 1 tab Q4H PRN Administration BREAKTHROUGH PAIN Norepinephrine Bitartrate 4 mg in 250 mls @ 0 mls/hr 06/24/25 07:45 06/24/25 08:00 Levophed IV 10 mcg/min .Q0M NIKKY 37.5 mls/hr Protocol Administration Per Protocol Insulin Human Lispro 0 unit 06/23/25 12:00 06/24/25 12:18 Insulin Lispro 100 Unit/1 Ml SUBCUT 4 unit WM&BEDTIME NIKKY Administration Protocol Levothyroxine Sodium 200 mcg 06/24/25 09:00 06/24/25 12:56 Levothyroxine 200 Mcg Tablet PO 200 mcg DAILY NIKKY Administration Levothyroxine Sodium 25 mcg 06/24/25 09:00 06/24/25 12:56 Levothyroxine 25 Mcg Tablet PO 25 mcg DAILY NIKKY Administration Meropenem 500 mg 06/24/25 10:00 06/24/25 10:05 Meropenem 500 Mg Sdv IVP 500 mg Q8H NIKKY Administration Protocol Pantoprazole Sodium 40 mg 06/23/25 14:41 06/24/25 14:48 Pantoprazole 40 Mg Sdv IVP 40 mg Q12H NIKKY Administration Sucralfate 1 gm 06/23/25 14:41 06/24/25 14:48 Sucralfate 1 Gm Tablet PO 1 gm Q6H NIKKY Administration Tamsulosin HCl 0.4 mg 06/24/25 06:00 06/24/25 05:40 Tamsulosin 0.4 Mg Capsule PO 0.4 mg QAM NIKKY Administration PFSH Acute PFSH: Medical History (Updated 06/24/25 @ 14:46 by Cas Arana MD) Lower GI bleed requiring more than 4 units of blood in 24 hours, ICU, or surgery (07/2022) Abdominal bloating SOB (shortness of breath) Spondylolisthesis at L4-L5 level Compression fracture of L4 vertebra Compression fracture of thoracic vertebra Cerebellar stroke syndrome Incomplete bladder emptying Hydronephrosis Ureteral obstruction, right HX OF RIGHT URETEROSCOPY WITH STENT PLACEMENT Obstructive pyelonephritis Kidney stones Hemodialysis patient Chronic kidney disease (CKD) Pleural effusion on right Microcytic anemia Type 2 diabetes mellitus Hx of breast cancer History of peritoneal dialysis HTN (hypertension) Hyperlipidemia Hypothyroidism Cataract Closed fracture of left proximal humerus Surgical History (Updated 06/24/25 @ 12:27 by Ras Brady DO) History of cholecystectomy S/P hemodialysis catheter insertion Right IJ: Removed History of surgery Right-sided pleurodesis and Pleurx catheter placement S/P dialysis catheter insertion Peritoneal dialysis catheter placement x3 according to patient, revisions had to be performed in [facility] at an outside facility Hemodialysis catheter placement Hx of cataract surgery Hx of tonsillectomy H/O tubal ligation History of surgery on arm H/O skin graft History of lumpectomy of left breast H/O knee surgery History of kidney surgery Family History Mother Stroke Father Stroke Social History Smoking and tobacco/nicotine status: unknown if used tobacco/nicotine Alcohol intake: never Substance/Drug Use: never Lives independently: Yes Household members: spouse Marital status: Current occupational status: employed Do you think of yourself as: Straight/Heterosexual Current gender identity: Female Vitals/I&O/Wt Last Vital Signs Temp 98.5 F 06/24/25 12:28 Pulse 92 06/24/25 14:00 Resp 22 H 06/24/25 12:28 BP 147/29 06/24/25 12:28 Pulse Ox 98 06/24/25 12:28 O2 Del Method Room Air 06/24/25 07:42 O2 Flow Rate 0.5 06/23/25 13:55 06/24/25 06/24/25 06/24/25 06:59 14:59 22:59 Intake Total 290 / 2810 560 / 560 Output Total 400 / 900 900 / 900 Balance -110 / 1910 -340 / -340 Weight last 48 hrs Weight 57.153 kg Weight 57.153 kg Weight 57.153 kg Physical Exam Narrative: on pressors , no distress no jvd peerla S1S2 RRR Lungs clear Abd sodt , non tender no edema Data 06/24/25 18:12 06/24/25 18:12 A&P Assessment and plan 1. End stage renal disease: Plan: 1. End-stage renal disease: Hold off on dialysis as patient hemodynamically unstable electrolytes are reasonable with no hyperkalemia no severe acidosis. Reevaluate in a.m. for dialysis. 2. Shock, likely hemorrhagic, plan for transfusions and IV fluids currently on pressors 3. Status post ORIF of humerus fracture 4. Encephalopathy, metabolic 5. Anemia due to blood loss, status posttransfusion 6. Urinary tract infection, 7. Hyponatremia, monitoring closely, and should improve with hemodialysis Patient evaluated using audiovisual cart. Time spent 40 minutes PDMP PDMP Reviewed: Not Reviewed Consult Attestations Medical Necessity Statement: per medicien team Coding Level of Care Code Acute Code for Chg Fwd Diagnoses End stage renal disease N18.6
[2025-06-24 16:15] LABS: Troponin 5 2HR 155.4 ng/L (0-10); Troponin 5 2HR Delta 50.4 ABS# (0-10)
[2025-06-24] MEDS: norepinephrine 4 MG/250 ML BAG 33.75 MG IV ×2 (17:00→23:11)
[2025-06-24] MEDS: water for injection-sterile 10 ML 1000 ML (17:52)
[2025-06-24 18:19] LABS: Hematocrit 25.6 % (36-47); Hemoglobin 8.40 g/dL (11.27-16.99); Mean Corpuscular HGB Conc 32.8 g/dL (30-55); Mean Corpuscular Hemoglobin 29.4 pg (27-33); Mean Corpuscular Volume 89.5 fl (85-98); Nucleated Red Blood Cells % 0.2 %; Platelet Count 209 10^3/cmm (157-399); Red Blood Count 2.86 10^6/uL (3.85-5.65); White Blood Count 10.32 10^3/uL (3.29-11.43)
[2025-06-24 18:45] LABS: Anion Gap 20.3 (5-19); Blood Urea Nitrogen 45 mg/dL (8-23); Calcium 6.1 mg/dL (8.5-10.5); Carbon Dioxide 19 mmol/L (22-29); Chloride 91 mmol/L (98-107); Creatinine Clr Calc Pharmacy 8.2421; Glucose 171 mg/dL (65-115); Osmolality Calculated 278 mOsm/kg (285-295); Potassium 4.3 mmol/L (3.5-5.1); Sodium 126 mmol/L (136-145)
[2025-06-24 18:53] LABS: Troponin 5 6HR 179.5 ng/L (0-10); Troponin 5 6HR Delta 74.5 ng/L (0-12)
[2025-06-25] VITALS (50 sets, daily range): BP systolic 74–155; BP diastolic 33–109; PULSE 71–94; RESP 8–29; TEMP 37–37.1; O2SAT 87–100
[2025-06-25] MEDS: pantoprazole 40 mg SDV IVP ×2 (03:44→15:13)
[2025-06-25] MEDS: HYDROcodone-acetaminophen 5-325 mg Tablet PO (05:45)
[2025-06-25 05:56] LABS: Hematocrit 25.2 % (36-47); Hemoglobin 7.90 g/dL (11.27-16.99); Mean Corpuscular HGB Conc 31.3 g/dL (30-55); Mean Corpuscular Hemoglobin 29.0 pg (27-33); Mean Corpuscular Volume 92.6 fl (85-98); Nucleated Red Blood Cells % 0.3 %; Platelet Count 196 10^3/cmm (157-399); Red Blood Count 2.72 10^6/uL (3.85-5.65); White Blood Count 6.94 10^3/uL (3.29-11.43)
[2025-06-25 06:14] LABS: INR 1.46 (0.8-1.2); Prothrombin Time 18.70 SECONDS (12.1-14.9)
[2025-06-25 06:32] LABS: Lactate (Lactic Acid level) 1.2 mmol/L (0.5-2.2)
[2025-06-25 06:33] LABS: Procalcitonin 1.74 ng/mL (0-0.5)
[2025-06-25 07:14] LABS: NT Pro B Type Natriuretic Pept > 70000 pg/mL (0-450)
[2025-06-25 07:49] LABS: Alanine Aminotransferase 14 U/L (0-33); Albumin Level 3.5 g/dL (3.5-5.2); Alkaline Phosphatase 145 U/L (35-105); Anion Gap 22.8 (5-19); Aspartate Amino Transferase 15 U/L (0-32); Blood Urea Nitrogen 46 mg/dL (8-23); Calcium 6.0 mg/dL (8.5-10.5); Carbon Dioxide 16 mmol/L (22-29); Chloride 91 mmol/L (98-107); Creatinine Clr Calc Pharmacy 9.0886; Globulin 2.4 g/dL (1.3-4.6); Glucose 86 mg/dL (65-115); Magnesium 2.0 mg/dL (1.7-2.3); Osmolality Calculated 273 mOsm/kg (285-295); Potassium 3.8 mmol/L (3.5-5.1); Sodium 126 mmol/L (136-145); Total Protein 5.9 g/dL (6.6-8.7)
--- NOTE | 2025-06-25 08:03 | ECG_ITS ---
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 Measurements Intervals [place] Rate: 81 P: 256 AL: 288 QRS: -56 QRSD: 120 T: 95 QT: 426 QTc: 496 Interpretive Statements ATRIAL FIBRILLATION INTRAVENTRICULAR CONDUCTION DELAY INFERIOR MYOCARDIAL INFARCTION , PROBABLY OLD [40+ ms Q WAVE AND/OR ST/T ABNORMALITY IN II/aVF] ANTEROSEPTAL MYOCARDIAL INFARCTION , OF INDETERMINATE AGE [40+ ms Q WAVE IN V1-V4] Compared to ECG 06/24/2025 08:27:18 NO SIGNIFICANT CHANGE Electronically Signed On 06-25-2025 17:05:02 CDT by Ronnie Lau M.D. [email or web address]
[2025-06-25 08:23] LABS: Troponin T (5th) Once 258 ng/L (0-10)
--- NOTE | 2025-06-25 09:34 | P.PN_ITS ---
Subjective 2 Subjective: on levophed 7 mcg on 4L NC Medications: Reviewed: Yes Vitals/I&O/Wt Last Vital Signs Temp 98.5 F 06/24/25 12:28 Pulse 84 06/25/25 07:30 Resp 17 06/25/25 07:30 BP 102/41 06/25/25 07:30 Pulse Ox 92 06/25/25 03:30 O2 Del Method Room Air 06/24/25 07:42 O2 Flow Rate 0.5 06/23/25 13:55 06/24/25 06/25/25 06/25/25 22:59 06:59 14:59 Intake Total 532.563 / 1442.563 763.125 / 2205.688 Output Total 500 / 1400 100 / 1500 Balance 32.563 / 42.563 663.125 / 705.688 Weight last 48 hrs Weight 68.039 kg Weight 57.153 kg Weight 57.153 kg Physical Exam 2 Narrative: on pressors , no distress , on 4L NC no jvd peerla S1S2 RRR Lungs = crackles Abd sodt , non tender no edema Data 06/25/25 04:24 06/25/25 04:24 Micro: Microbiology 06/24/25 15:25 Blood Culture - Preliminary Blood SPECIMEN COLLECTED 06/24/25 15:32 Blood Culture - Preliminary Blood SPECIMEN COLLECTED A&P Assessment and plan 1. End stage renal disease: Plan: 1. End-stage renal disease: pt on pressors , will request Temp HD catheter placent and plan for CRRT . 2. Shock, plan for transfusions and IV fluids currently on pressors 3. Status post ORIF of humerus fracture 4. Encephalopathy, metabolic 5. Anemia due to blood loss, status posttransfusion 6. Urinary tract infection, 7. Hyponatremia, monitoring closely, and should improve with hemodialysis Patient evaluated using audiovisual cart. Time spent 40 minutes PDMP PDMP Reviewed: Not Reviewed Attestations 2 Medical Necessity Statement*: per medicine Coding Level of Care Code Acute Code for Chg Fwd Diagnoses End stage renal disease N18.6
--- NOTE | 2025-06-25 09:52 | P.PN_ITS ---
Subjective 2 Subjective: Patient much more alert today and responsive this she was receiving procedure yesterday when seen. Still requiring pressure support. Dressings have been reapplied to the left upper extremity left upper extremity warm well-perfused compartments are soft and compressible Vitals/I&O/Wt Last Vital Signs Temp 98.5 F 06/24/25 12:28 Pulse 84 06/25/25 07:30 Resp 17 06/25/25 07:30 BP 102/41 06/25/25 07:30 Pulse Ox 92 06/25/25 03:30 O2 Del Method Room Air 06/24/25 07:42 O2 Flow Rate 0.5 06/23/25 13:55 06/24/25 06/25/25 06/25/25 22:59 06:59 14:59 Intake Total 532.563 / 1442.563 763.125 / 2205.688 Output Total 500 / 1400 100 / 1500 Balance 32.563 / 42.563 663.125 / 705.688 Weight last 48 hrs Weight 150 lb Weight 126 lb Weight 126 lb Physical Exam 2 Narrative: Patient is awake and oriented she is able to follow commands Examination left upper extremity dressing left in place today as well as elbow brace on in place. she is able to perform all cardinal hand movements she is able to perform AIN/PIN/radial/ulnar/median nerve all appears to be intact. Sensations intact light touch distally to radial/ulnar/median nerve distribution. Normal postoperative swelling to the left upper arm, patient's compartments are soft compressible. Data 06/25/25 04:24 06/25/25 14:29 Micro: Microbiology 06/24/25 15:25 Blood Culture - Preliminary Blood SPECIMEN COLLECTED 06/24/25 15:32 Blood Culture - Preliminary Blood SPECIMEN COLLECTED A&P Assessment and plan 1. Postoperative state: 2. Status post open reduction and internal fixation (ORIF) of fracture: 3. Postoperative anemia: Plan: Postop day 2 left humeral shaft open reduction internal fixation nonweightbearing left upper extremity Pain control Labs reviewed Internal medicine on board for medical management Patient currently in ICU -Per hospitalist having femoral line placed Patient requires dialysis Patient currently has low blood pressure and receiving pressure support Dressings clean dry and intact today with brace on in place leave on and may change as needed We will hand care back to Dr. Ferrera her orthopedic surgeon he updated him over the weekend on patient and he will resume care on Thursday No further orthopedic surgical invention required at this time?orthopedics will continue to follow Patient understands agrees with current plan. Questions answered. PDMP PDMP Reviewed: Not Reviewed Attestations 2 Medical Necessity Statement*: Ongoing care status post left humeral shaft ORIF, defer to patient's further medical necessity based on hospitalist stating patient required hospitalization, for septic shock,, UTI, NSTEMI, fluid overload, hyponatremia, Coding Level of Care Code Acute Code for Chg Fwd Diagnoses Postoperative state Z98.890 Status post open reduction and internal fixation (ORIF) of fracture Z98.890; Z87.81 Postoperative anemia D64.9 Time Spent (min) 15
--- NOTE | 2025-06-25 10:55 | PC.NURSE ---
this am weaned down levophed but had to increase back up , lungs with few crackles noted , right neck area with bruising noted but less swelling noted right arm elevated Dr Brady here aware of dressing placed on yesterday and immobilizer not able to place back on due to swelling urine output decreased alert and oriented , for crrt today unable to tolerate dialysis rt hypotension called surgeon to place line femoral for crrt
--- NOTE | 2025-06-25 12:12 | PM.CONSULT ---
Providers/Reason For Consult Consulting Physician/Specialty*: Dr Jaleel De Oliveira DO Reason for Consult*: Dialysis catheter placement Attending Physician: Juan Ramon Ferrera DO Primary Care Provider: Cesar Mendez MD History of Present Illness History of Present Illness María Saab is a 75 year old female that presented after a fall at her house with a left arm fracture. She had surgery with orthopedics to fix this and after surgery she experienced a urinary tract infection and some hypotension which required Levophed. She is on dialysis at home through a AV fistula which they are having trouble with flow rates and maintaining her blood pressure especially while she was on Levophed. She also experienced an NSTEMI postoperatively and for these reasons they wanted to place a temporary dialysis catheter to help with CRRT and to help maintain her blood pressure while she stabilized. No other complaints at this time she is resting comfortably in bed and she is being monitored in the ICU. She is currently receiving 2 units of packed red blood cells for low hemoglobin. I was asked to see her for right groin dialysis catheter placement. Review of Systems Const: Denies: fever(s) Card: Denies: chest pain Resp: Denies: dyspnea GI: Denies: abdominal pain Medications/Allergies Home Medications ?Medication ?Instructions ?Recorded ?Confirmed ?Last Taken ?Type amitriptyline 100 mg tablet 100 mg PO BEDTIME 10/02/20 06/23/25 06/22/25 History tamsulosin 0.4 mg capsule 0.4 mg PO QAM 07/18/22 06/23/25 06/22/25 History flash glucose scanning reader #1 ea 12/15/22 06/24/25 04/30/23 Rx (FreeStyle Anita 2 [place]) flash glucose sensor (FreeStyle #3 ea 12/15/22 06/24/25 04/30/23 Rx Anita 2 Sensor kit) carvedilol 12.5 mg tablet 12.5 mg PO EVERY OTHER DAY 02/27/23 06/23/25 06/23/25 History ropinirole 1 mg tablet 1 mg PO BEDTIME 02/27/23 06/23/25 06/22/25 History vit B,C-folic ac 800 mcg-zinc 12.5 1 tab PO QAM 02/27/23 06/23/25 06/22/25 History mg-selen-D3 2,000 unit-vit E tablet (RenaPlex-D) wheel chair #1 ea 04/30/23 06/24/25 04/30/23 Rx folic acid 0.8 mg-vit B comp with 1 tab PO QAM 08/29/23 06/23/25 06/22/25 History Q-idtd-imkhwob D3 2,000 unit tablet (Dialyvite 800-Ultra D) semaglutide 2 mg/dose (8 mg/3 mL) 2 mg (0.75 mL) SUBCUT Q7D #9 mL 09/16/23 06/23/25 06/16/25 Rx subcutaneous pen injector (Ozempic) denosumab 60 mg/mL subcutaneous 60 mg SUBCUT .j7xwqwkp #1 mL 06/11/24 06/23/25 06/15/25 Rx syringe (Prolia) ferric citrate 210 mg iron tablet 1 tab PO TID 12/27/24 06/23/25 06/21/25 History (Auryxia) furosemide 80 mg tablet 80 mg PO BID 12/27/24 06/23/25 06/22/25 History gabapentin 100 mg capsule 100 mg PO BEDTIME 12/27/24 06/23/25 06/22/25 History losartan 25 mg tablet 25 mg PO DAILY 12/27/24 06/23/25 12/26/24 History levothyroxine 25 mcg tablet 25 mcg PO DAILY #90 tabs 06/09/25 06/23/25 06/22/25 Rx (Synthroid) levothyroxine 200 mcg tablet 200 mcg PO DAILY 06/22/25 06/23/25 06/22/25 History Allergies Allergy/AdvReac Type Severity Reaction Status Date / Time Penicillins Allergy Mild ALGY-Rash Verified 06/22/25 11:43 propoxyphene (From Darvon) Allergy Mild ALGY-Rash Verified 06/22/25 11:43 codeine Allergy ALGY-Rash Verified 06/22/25 11:43 Current Medications Generic Name Dose Route Start Last Admin Trade Name Freq PRN Reason Stop Dose Admin Hydrocodone Bitart/Acetaminophen 1 - 2 tab 06/23/25 09:25 06/25/25 05:45 Hydrocodone-Acetaminophen 5-325 Mg Tablet PO 1 tab Q4H PRN Administration BREAKTHROUGH PAIN Aspirin 81 mg 06/25/25 08:00 06/25/25 09:12 Aspirin 81 Mg Ec Tablet PO 81 mg Q24H NIKKY Administration Norepinephrine Bitartrate 4 mg in 250 mls @ 0 mls/hr 06/24/25 07:45 06/25/25 05:15 Levophed IV 3 mcg/min .Q0M NIKKY 11.25 mls/hr Protocol Titration Per Protocol Insulin Human Lispro 0 unit 06/23/25 12:00 06/25/25 08:25 Insulin Lispro 100 Unit/1 Ml SUBCUT Not Given WM&BEDTIME NIKKY Protocol Levothyroxine Sodium 200 mcg 06/24/25 09:00 06/25/25 09:12 Levothyroxine 200 Mcg Tablet PO 200 mcg DAILY NIKKY Administration Levothyroxine Sodium 25 mcg 06/24/25 09:00 06/25/25 09:13 Levothyroxine 25 Mcg Tablet PO 25 mcg DAILY NIKKY Administration Meropenem 500 mg 06/24/25 10:00 06/25/25 11:50 Meropenem 500 Mg Sdv IVP 500 mg Q8H NIKKY Administration Protocol Pantoprazole Sodium 40 mg 06/23/25 14:41 06/25/25 03:44 Pantoprazole 40 Mg Sdv IVP 40 mg Q12H NIKKY Administration Sucralfate 1 gm 06/23/25 14:41 06/25/25 09:12 Sucralfate 1 Gm Tablet PO 1 gm Q6H NIKKY Administration Tamsulosin HCl 0.4 mg 06/24/25 06:00 06/25/25 05:44 Tamsulosin 0.4 Mg Capsule PO 0.4 mg QAM NIKKY Administration PFSH Acute PFSH: Medical History (Updated 06/24/25 @ 14:46 by Cas Arana MD) Lower GI bleed requiring more than 4 units of blood in 24 hours, ICU, or surgery (07/2022) Abdominal bloating SOB (shortness of breath) Spondylolisthesis at L4-L5 level Compression fracture of L4 vertebra Compression fracture of thoracic vertebra Cerebellar stroke syndrome Incomplete bladder emptying Hydronephrosis Ureteral obstruction, right HX OF RIGHT URETEROSCOPY WITH STENT PLACEMENT Obstructive pyelonephritis Kidney stones Hemodialysis patient Chronic kidney disease (CKD) Pleural effusion on right Microcytic anemia Type 2 diabetes mellitus Hx of breast cancer History of peritoneal dialysis HTN (hypertension) Hyperlipidemia Hypothyroidism Cataract Closed fracture of left proximal humerus Surgical History (Updated 06/25/25 @ 00:00 by ARMAAN Hernandez) History of cholecystectomy S/P hemodialysis catheter insertion Right IJ: Removed History of surgery Right-sided pleurodesis and Pleurx catheter placement S/P dialysis catheter insertion Peritoneal dialysis catheter placement x3 according to patient, revisions had to be performed in [facility] at an outside facility Hemodialysis catheter placement Hx of cataract surgery Hx of tonsillectomy H/O tubal ligation History of surgery on arm H/O skin graft History of lumpectomy of left breast H/O knee surgery History of kidney surgery Family History Mother Stroke Father Stroke Social History Smoking and tobacco/nicotine status: unknown if used tobacco/nicotine Alcohol intake: never Substance/Drug Use: never Lives independently: Yes Household members: spouse Marital status: Current occupational status: employed Do you think of yourself as: Straight/Heterosexual Current gender identity: Female Vitals/I&O/Wt Last Vital Signs Temp 98.6 F 06/25/25 11:04 Pulse 84 06/25/25 11:04 Resp 20 H 06/25/25 11:04 BP 98/56 06/25/25 11:04 Pulse Ox 93 06/25/25 11:04 O2 Del Method Room Air 06/24/25 07:42 O2 Flow Rate 0.5 06/23/25 13:55 06/24/25 06/25/25 06/25/25 22:59 06:59 14:59 Intake Total 532.563 / 1442.563 763.125 / 2205.688 200 / 200 Output Total 500 / 1400 100 / 1500 Balance 32.563 / 42.563 663.125 / 705.688 200 / 200 Weight last 48 hrs Weight 150 lb Weight 126 lb Weight 126 lb Physical Exam Const: COMMON NORMALS: no acute distress EXAM LIMITATIONS: altered mental status ORIENTATION/CONSCIOUSNESS: Yes awake, Yes oriented to person, Yes oriented to place and Yes oriented to time HENMT: COMMON NORMALS: normocephalic HEAD & SCALP: normocephalic Eye: COMMON NORMALS: Equal, round and reactive pupils present PUPIL: Yes Equal, round and reactive pupils present OTHER: Right eye blindness, Neck/C-Spine: COMMON NORMALS: no JVD Lymph: LYMPHATIC: no lymphadenopathy noted Chest: COMMONS NORMALS: normal inspection of the chest Resp: COMMON NORMALS: normal respiratory effort, No retractions and No use of accessory muscles AUSCULTATION: wheezes Cardio: COMMON NORMALS: no JVD, regular rate, regular rhythm, S1 normal heart sound present and S2 normal heart sound present RATE: regular rate RHYTHM: regular rhythm HEART SOUNDS: S1 normal heart sound present and S2 normal heart sound present GI: COMMON NORMALS: Normal to inspection, nondistended, normoactive bowel sounds present and non-tender Extremity: COMMON NORMALS: no pedal edema Neuro: SENSORIUM/ORIENTATION: Yes oriented to person, Yes oriented to place and Yes oriented to time Skin: NARRATIVE SKIN EXAM: Left arm, surgical site, looks clean and dry, swelling, no warmth, Data 06/25/25 04:24 06/25/25 04:24 Micro: Microbiology 06/24/25 15:25 Blood Culture - Preliminary Blood SPECIMEN COLLECTED 06/24/25 15:32 Blood Culture - Preliminary Blood SPECIMEN COLLECTED A&P Assessment and plan 1. Postoperative state: 2. Status post open reduction and internal fixation (ORIF) of fracture: 3. Postoperative anemia: 4. Septic shock: 5. Diabetes type 2, uncontrolled: 6. Hypothyroidism: 7. Lower GI bleed requiring more than 4 units of blood in 24 hours, ICU, or surgery: 8. End stage renal disease: 9. Anemia: 10. Acute encephalopathy: 11. NSTEMI (non-ST elevated myocardial infarction): Plan: Will place a right sided temporary dialysis catheter in the right groin. All risks and benefits were discussed with the patient and all questions were sought and answered by reviewing procedure. She agreed to proceed with the plan as discussed. Acute encephalopathy, resolving -likely secondary to hypotension - Likely secondary metabolic acidosis - Likely secondary to hyponatremia - Likely sec to UTI -Acute on chronic anemia - Neurochecks - NIH stroke scale -aspiration precautions Septic shock secondary to urinary tract infection - Maintain MAP more than 65, currently on 10 of Levophed - Status post sepsis bolus - Status post albumin - Continue vancomycin - Continue Zosyn - Follow blood cultures - Follow urine culture Acute on chronic anemia with postoperative anemia - Hemoglobin 7.5, EBL 500, -Will transfuse 1 unit PRBC - Protonix, Carafate End-stage renal disease, hold off on dialysis, given hypotension Left upper extremity, left humerus fracture -Open reduction internal fixation of left humerus Hypocalcemia - Calcium 6.6, corrected calcium 7.1 -pth, vitamin d, ionized calcium Hyponatremia, monitor serum sodium NSTEMI, serial EKGs, serial troponins, telemetry monitoring History of GI bleed Type 2 diabetes mellitus, low-dose insulin scale Right basilar pleural base lesion 1. Right basilar pleural-based lesion measuring 1.2 x 2.2 cm. PET-CT scan for further evaluation to exclude neoplasm is advised. 2. Mediastinal adenopathy. PET-CT scan for further evaluation is advised. With calcified pleural plaques in the right chest posteriorly Plan - Will need to follow-up with oncology as outpatient Possible liver cirrhosis?, Will have to follow-up with GI as outpatient PDMP PDMP Reviewed: Not Reviewed Coding Level of Care Code Acute Code for Chg Fwd Diagnoses Postoperative state Z98.890 Status post open reduction and internal fixation (ORIF) of fracture Z98.890; Z87.81 Postoperative anemia D64.9 Septic shock A41.9; R65.21 Diabetes type 2, uncontrolled Hypothyroidism E03.9 Lower GI bleed requiring more than 4 units of blood in 24 hours, ICU, or surgery K92.2 End stage renal disease N18.6 Anemia D64.9 Acute encephalopathy G93.40 NSTEMI (non-ST elevated myocardial infarction) I21.4
--- NOTE | 2025-06-25 12:18 | PM.DIACAT ---
Procedure Note: Date of procedure: 06/25/25 Pre-op diagnosis: End-stage renal disease on hemodialysis Post-op diagnosis: same Procedure Performed: femoral dialysis catheter Procedure: The area was prepped and draped in the standard sterile fashion. The right femoral vessels were identified with ultrasound guidance and using a finder needle the right femoral vein was accessed and cannulated using a guidewire the femoral vein was cannulated once this was done the ultrasound was removed and using a 10 blade scalpel a small miller was made in the skin to help with passage of the dialysis catheters. A dilation catheter was used to dilate the tract and then a 12 Vietnamese dialysis catheter was placed over the guidewire into the femoral vein. Once this was inserted in place each port was accessed using a 10 mL syringe and blood was easily drawn back and both ports were flushed using saline. At this point the catheter was fixated in place using 2-0 nylon suture through each of the fashion reports on the dialysis catheter. She tolerated this procedure well and a sterile dressing was placed over the catheter site. Anesthesia: other (5 cc of local anesthetic injected over the area of catheter insertion.) Surgeon: Jaleel De Oliveira Estimated blood loss (mL): 10 Coding Level of Care Code Acute Code for Chg Fwd
--- NOTE | 2025-06-25 12:19 | PM.CONSULT ---
Providers/Reason For Consult Consulting Physician/Specialty*: Ronnie Lau MD/Cardiology Reason for Consult*: Elevated troponin Requesting Physician: Dr. Arana Attending Physician: Juan Ramon Ferrera DO Primary Care Provider: Cesar Mendez MD History of Present Illness History of Present Illness María Saab is a 75 year old female with a history of essential hypertension, hyperlipidemia, type 2 diabetes mellitus, end-stage renal disease on hemodialysis Wednesdays and Fridays, severe GI bleed in 2021 requiring 4 units of packed red blood cells who is admitted to the hospital after a fall causing a left humerus fracture which was surgically corrected this hospitalization. She had a 500 mL blood loss during the surgery and has required a blood transfusion since then. Postoperatively the patient was found to be hypotensive and was transferred to the unit where the patient required initiation of Levophed for blood pressure support. The patient had lethargy during the time of hypotension but is now alert and oriented. The hypotension is now thought to be due to a urinary tract infection which is being treated. In the workup of the hypotension the patient had both an echocardiogram and a troponin level checked. The troponin level was elevated for which cardiology has been consulted. The patient denies chest pain or any history of cardiac disease. Medications/Allergies Home Medications ?Medication ?Instructions ?Recorded ?Confirmed ?Last Taken ?Type amitriptyline 100 mg tablet 100 mg PO BEDTIME 10/02/20 06/23/25 06/22/25 History tamsulosin 0.4 mg capsule 0.4 mg PO QAM 07/18/22 06/23/25 06/22/25 History flash glucose scanning reader #1 ea 12/15/22 06/24/25 04/30/23 Rx (FreeStyle Anita 2 Healy) flash glucose sensor (FreeStyle #3 ea 12/15/22 06/24/25 04/30/23 Rx Anita 2 Sensor kit) carvedilol 12.5 mg tablet 12.5 mg PO EVERY OTHER DAY 02/27/23 06/23/25 06/23/25 History ropinirole 1 mg tablet 1 mg PO BEDTIME 02/27/23 06/23/25 06/22/25 History vit B,C-folic ac 800 mcg-zinc 12.5 1 tab PO QAM 02/27/23 06/23/25 06/22/25 History mg-selen-D3 2,000 unit-vit E tablet (RenaPlex-D) wheel chair #1 ea 04/30/23 06/24/25 04/30/23 Rx folic acid 0.8 mg-vit B comp with 1 tab PO QAM 08/29/23 06/23/25 06/22/25 History D-vzfe-xuhlpya D3 2,000 unit tablet (Dialyvite 800-Ultra D) semaglutide 2 mg/dose (8 mg/3 mL) 2 mg (0.75 mL) SUBCUT Q7D #9 mL 09/16/23 06/23/25 06/16/25 Rx subcutaneous pen injector (Ozempic) denosumab 60 mg/mL subcutaneous 60 mg SUBCUT .l4slaiym #1 mL 06/11/24 06/23/25 06/15/25 Rx syringe (Prolia) ferric citrate 210 mg iron tablet 1 tab PO TID 12/27/24 06/23/25 06/21/25 History (Auryxia) furosemide 80 mg tablet 80 mg PO BID 12/27/24 06/23/25 06/22/25 History gabapentin 100 mg capsule 100 mg PO BEDTIME 12/27/24 06/23/25 06/22/25 History losartan 25 mg tablet 25 mg PO DAILY 12/27/24 06/23/25 12/26/24 History levothyroxine 25 mcg tablet 25 mcg PO DAILY #90 tabs 06/09/25 06/23/25 06/22/25 Rx (Synthroid) levothyroxine 200 mcg tablet 200 mcg PO DAILY 06/22/25 06/23/25 06/22/25 History Allergies Allergy/AdvReac Type Severity Reaction Status Date / Time Penicillins Allergy Mild ALGY-Rash Verified 06/22/25 11:43 propoxyphene (From Darvon) Allergy Mild ALGY-Rash Verified 06/22/25 11:43 codeine Allergy ALGY-Rash Verified 06/22/25 11:43 Current Medications Generic Name Dose Route Start Last Admin Trade Name Freq PRN Reason Stop Dose Admin Hydrocodone Bitart/Acetaminophen 1 - 2 tab 06/23/25 09:25 06/25/25 05:45 Hydrocodone-Acetaminophen 5-325 Mg Tablet PO 1 tab Q4H PRN Administration BREAKTHROUGH PAIN Aspirin 81 mg 06/25/25 08:00 06/25/25 09:12 Aspirin 81 Mg Ec Tablet PO 81 mg Q24H NIKYK Administration Norepinephrine Bitartrate 4 mg in 250 mls @ 0 mls/hr 06/24/25 07:45 06/25/25 05:15 Levophed IV 3 mcg/min .Q0M NIKKY 11.25 mls/hr Protocol Titration Per Protocol Insulin Human Lispro 0 unit 06/23/25 12:00 06/25/25 08:25 Insulin Lispro 100 Unit/1 Ml SUBCUT Not Given WM&BEDTIME NIKKY Protocol Levothyroxine Sodium 200 mcg 06/24/25 09:00 06/25/25 09:12 Levothyroxine 200 Mcg Tablet PO 200 mcg DAILY NIKKY Administration Levothyroxine Sodium 25 mcg 06/24/25 09:00 06/25/25 09:13 Levothyroxine 25 Mcg Tablet PO 25 mcg DAILY NIKKY Administration Meropenem 500 mg 06/24/25 10:00 06/25/25 11:50 Meropenem 500 Mg Sdv IVP 500 mg Q8H NIKKY Administration Protocol Pantoprazole Sodium 40 mg 06/23/25 14:41 06/25/25 03:44 Pantoprazole 40 Mg Sdv IVP 40 mg Q12H NIKKY Administration Sucralfate 1 gm 06/23/25 14:41 06/25/25 09:12 Sucralfate 1 Gm Tablet PO 1 gm Q6H NIKKY Administration Tamsulosin HCl 0.4 mg 06/24/25 06:00 06/25/25 05:44 Tamsulosin 0.4 Mg Capsule PO 0.4 mg QAM NIKKY Administration PFSH Acute PFSH: Medical History (Updated 06/25/25 @ 12:45 by Ronnie Lau MD) Lower GI bleed requiring more than 4 units of blood in 24 hours, ICU, or surgery (07/2022) Abdominal bloating SOB (shortness of breath) Spondylolisthesis at L4-L5 level Compression fracture of L4 vertebra Compression fracture of thoracic vertebra Cerebellar stroke syndrome Incomplete bladder emptying Hydronephrosis Ureteral obstruction, right HX OF RIGHT URETEROSCOPY WITH STENT PLACEMENT Obstructive pyelonephritis Kidney stones Hemodialysis patient Chronic kidney disease (CKD) Pleural effusion on right Microcytic anemia Type 2 diabetes mellitus Hx of breast cancer History of peritoneal dialysis HTN (hypertension) Hyperlipidemia Hypothyroidism Cataract Closed fracture of left proximal humerus Surgical History (Updated 06/25/25 @ 00:00 by ARMAAN Hernandez) History of cholecystectomy S/P hemodialysis catheter insertion Right IJ: Removed History of surgery Right-sided pleurodesis and Pleurx catheter placement S/P dialysis catheter insertion Peritoneal dialysis catheter placement x3 according to patient, revisions had to be performed in [facility] at an outside facility Hemodialysis catheter placement Hx of cataract surgery Hx of tonsillectomy H/O tubal ligation History of surgery on arm H/O skin graft History of lumpectomy of left breast H/O knee surgery History of kidney surgery Family History Mother Stroke Father Stroke Social History Smoking and tobacco/nicotine status: unknown if used tobacco/nicotine Alcohol intake: never Substance/Drug Use: never Lives independently: Yes Household members: spouse Marital status: Current occupational status: employed Do you think of yourself as: Straight/Heterosexual Current gender identity: Female Vitals/I&O/Wt Last Vital Signs Temp 98.6 F 06/25/25 11:04 Pulse 84 06/25/25 11:04 Resp 20 H 06/25/25 11:04 BP 98/56 06/25/25 11:04 Pulse Ox 93 06/25/25 11:04 O2 Del Method Room Air 06/24/25 07:42 O2 Flow Rate 0.5 06/23/25 13:55 06/24/25 06/25/25 06/25/25 22:59 06:59 14:59 Intake Total 532.563 / 1442.563 763.125 / 2205.688 200 / 200 Output Total 500 / 1400 100 / 1500 Balance 32.563 / 42.563 663.125 / 705.688 200 / 200 Weight last 48 hrs Weight 150 lb Weight 126 lb Weight 126 lb Physical Exam Narrative: General: In no acute distress Neck: No jugular venous distention or carotid bruits Heart: Normal S1 and S2 with a regular rate and rhythm, no cardiac murmurs Lungs: Normal respiratory effort with no use of intercostal muscles, clear lungs sounds to auscultation Extremities: Left arm in sling. Swelling in the left hand. No lower extremity edema Neuro: Alert and oriented x 3 Data 06/25/25 04:24 06/25/25 04:24 Micro: Microbiology 06/24/25 15:25 Blood Culture - Preliminary Blood SPECIMEN COLLECTED 06/24/25 15:32 Blood Culture - Preliminary Blood SPECIMEN COLLECTED Other data: Echo 06/24/25: 1. Normal LV size. Mildly reduced left ventricular systolic function with severe hypokinesis of the septum and inferior maldonado. Overall ejection fraction 45%. 2. Moderately dilated right ventricle. Mildly reduced right ventricular systolic function 3. Moderate left atrial enlargement 4. Indeterminate left ventricular diastolic function due to severe mitral annular calcification 5. Moderate to severe pulmonary hypertension, PASP 64 mmHg 6. Moderate mitral valve regurgitation. Mild mitral valve stenosis 7. Moderate to severe tricuspid valve regurgitation 8. Compared to echocardiogram on 03/07/2022, the left ventricular systolic function has mildly decreased and the pulmonary hypertension has mildly increased. EKGs personally reviewed: 05/25/2021?normal sinus rhythm 02/27/2023 normal sinus rhythm 12/06/2024 atrial fibrillation 12/27/2024 atrial fibrillation 06/23/2025 atrial fibrillation 06/24/2025 atrial fibrillation heart rate 81 A&P Assessment and plan 1. NSTEMI (non-ST elevated myocardial infarction): Type II NSTEMI due to hypotension and anemia but high risk for underlying CAD Continue with ASA 81mg QHS Atorvastatin 40mg QHS No BB due to hypotension Will ultimately need LHC due to worsening of LVF - prefer prior to discharge 2. Hypotension: [place] to be secondary to urosepsis Still requiring some Levophed but BP now stable 3. Persistent atrial fibrillation: My review of EKGs shows afib starting on EKG 12/06/24 Patient does not recall ever being told about having afib H/o of severe GI bleed in 2021 Now anemic post op and receiving pRBC Can hold on heparin for now but will need to decide if patient a candidate for anticoagulation in the near future and if not, will need to consider Watchman LAAO device Afib currently rate controlled 4. Mitral valve regurgitation: Moderate 5. Tricuspid valve regurgitation: Mod to severe 6. Acute HFrEF (heart failure with reduced ejection fraction): EF down from 55% in 03/06/2022 to 45% now. No LE edema and volume can be controlled with dialysis No GDMT for CHF currently due to hypotension PDMP PDMP Reviewed: Not Reviewed Coding Level of Care Code 64211 Diagnoses NSTEMI (non-ST elevated myocardial infarction) I21.4 Hypotension I95.9 Persistent atrial fibrillation I48.19 Mitral valve regurgitation I34.0 Tricuspid valve regurgitation I07.1 Acute HFrEF (heart failure with reduced ejection fraction) I50.21
--- NOTE | 2025-06-25 12:38 | P.PN_ITS ---
Subjective 2 Subjective: - Patient was examined this morning, son is at bedside - Currently she is alert oriented x 3, f ollowing all commands, denies any fevers, no chills, no cough, no abdominal pain, no chest pain - She is on 2 L but denies any shortness of breath - I did detailed discussion with María and her son about her current medical condition - She is on 4 of Levophed, continues to have septic shock likely sec to UTI, but also component related to acute on chronic anemia - She does have a history of GI bleeds b ut no bloody or black stools here - She had a significant GI bleed in 2022 requiring transfer to tertiary level center - I also am concerned that a component o f her hypotension might be cardiogenic shock and her NSTEMI - We discussed that she is on broad-spec trum antibiotic therapy for sepsis and septic shock for her UTI we will continue monitoring - For her left humeral fracture, she is status post surgery, will have Dr. Brady see her today - She does have evidence of fluid overlo ad she has not received dialysis in the last 2 days, due to hypotension, she tells me that she is always hypotensive in dialysis staff to give her midodrine albumin on a regular basis as outpatient - Discussed the increased risk of hypote nsion during dialysis year, especially with her NSTEMI, her echocardiogram findings high risk of cardiac event would prefer to try CRRT, after discussing risk benefits CRRT she was in agreement - We then did have a detailed discussion with her about her NSTEMI - She has NSTEMI, but she denies any ari st pain, her echocardiogram shows an EF of 45%, discussed her wall motion abnormality of the septum and inferior wall - Discussed type I versus type II NSTEMI , - However given her age, her risk factor s I cannot rule out a type I NSTEMI, will consult cardiology - The issue being that in most cases for NSTEMI we placed patients on anticoagulant therapy - Now with her acute on chronic anemia s he received 3 units of blood potential will require more blood, my goal was to keep the hemoglobin greater than 8, but in most cases of NSTEMI, especially type I NSTEM[address] place patients on blood thinners - But given her history of GI bleed, her current anemia, her hypotension, there is a high risk of worsening anemia, high risk of GI bleed - And nonetheless if she were to undergo coronary angiography she would need aspirin and Plavix and will be committed to aspirin Plavix for at least a year, which with her history of GI bleeds would carry significant risk - Discussed with María and her that certainly this is a difficult situation, were stuck between a rock and a hard place, we had a detailed discussion, shared decision making - After discussing the risks and benefit s of all options, María voiced understanding, all questions answered, she would prefer not to be put on blood thinners such as heparin due to her's severe history of GI bleed and she is worried about a recurrent GI bleed she remembers that situation in the past, and she does not want it to happen again, we did discuss trying aspirin 81 mg, and she is in agreement - Nonetheless we will monitor the ICU an d consult cardiology - Spoke to nephrology, plans on CRRT, sp bruce to dialysis nurse, spoke to nursing staff, concern for dialysis access via CRRT with her AV fistula, nephrology recommended dialysis catheter placement for CRRT - Spoke to general surgery about dialysi s catheter placement in groin, agreeable - Spoke to patient about plans on CRRT, our concerns about accessing dialysis catheter for CRRT with her AV fistula, complications associated, recommendations by nephrology to place dialysis catheter for CRRT, given patient's hypotension she is requiring more Levophed at 8, patient is agreeable, understands risk and benefits of dialysis catheter placement, under risk and benefits of CRRT, agreeable to proceed Vitals/I&O/Wt Last Vital Signs Temp 98.6 F 06/25/25 11:04 Pulse 84 06/25/25 11:04 Resp 20 H 06/25/25 11:04 BP 98/56 06/25/25 11:04 Pulse Ox 93 06/25/25 11:04 O2 Del Method Room Air 06/24/25 07:42 O2 Flow Rate 0.5 06/23/25 13:55 06/24/25 06/25/25 06/25/25 22:59 06:59 14:59 Intake Total 532.563 / 1442.563 763.125 / 2205.688 200 / 200 Output Total 500 / 1400 100 / 1500 Balance 32.563 / 42.563 663.125 / 705.688 200 / 200 Weight last 48 hrs Weight 68.039 kg Weight 57.153 kg Weight 57.153 kg Physical Exam 2 Const: COMMON NORMALS: no acute distress and patient oriented x3 Eye: COMMON NORMALS: Equal, round and reactive pupils present PUPIL: Yes Equal, round and reactive pupils present OTHER: Right eye permanent blindness, pupil minimally reactive to light, has pupillary defect Resp: COMMON NORMALS: normal respiratory effort, No retractions and No use of accessory muscles AUSCULTATION: crackles Cardio: COMMON NORMALS: regular rate, regular rhythm, S1 normal heart sound present and S2 normal heart sound present RATE: regular rate RHYTHM: r egular rhythm HEART SOUNDS: S1 normal heart sound present and S2 normal heart sound present GI: COMMON NORMALS: Normal to inspection, nondistended, normoactive bowel sounds present and non-tender Extremity: COMMON NORMALS: no pedal edema Neuro: COMMON NORMALS: patient oriented x3, CN's II-XII intact bilaterally and moves all extremities Psych: COMMON NORMALS: mental status grossly normal Data 06/25/25 04:24 06/25/25 04:24 Micro: Microbiology 06/24/25 09:15 Urine Culture - Preliminary Urine,Clean Catch 06/24/25 15:25 Blood Culture - Preliminary Blood SPECIMEN COLLECTED 06/24/25 15:32 Blood Culture - Preliminary Blood SPECIMEN COLLECTED A&P Assessment and plan 1. Postoperative state: 2. Status post open reduction and internal fixation (ORIF) of fracture: 3. Postoperative anemia: 4. Septic shock: 5. Diabetes type 2, uncontrolled: 6. Hypothyroidism: 7. Lower GI bleed requiring more than 4 units of blood in 24 hours, ICU, or surgery: 8. End stage renal disease: 9. Anemia: 10. Acute encephalopathy: 11. NSTEMI (non-ST elevated myocardial infarction): Plan: Acute encephalopathy, resolving -likely secondary to hypotension - Likely secondary metabolic acidosis - Likely secondary to hyponatremia - Likely secondary to UTI - Opponent acute on chronic anemia - Neurochecks - NIH stroke scale -aspiration precautions Multifactorial shock -Acute anemia -Possible component of cardiogenic shock? EF 45%, echocardiogram findings as below -Septic shock secondary to urinary tract infection - Maintain MAP more than 65, currently on 8 of Levophed - Status post sepsis bolus - Status post albumin - Continue vancomycin - Continue Zosyn - Follow blood cultures - Follow urine culture NSTEMI - No chest pain complaints - Type I versus type II NSTEMI -Does have septic shock secondary to UTI, acute anemia, is on Levophed, has end- stage renal disease on dialysis, fluid overload, bilateral pleural effusions CONCLUSIONS 1. Normal LV size. Mildly reduced left ventricular systolic function with severe hypokinesis of the septum and inferior maldonado. Overall ejection fraction 45%. 2. Moderately dilated right ventricle. Mildly reduced right ventricular systolic function 3. Moderate left atrial enlargement 4. Indeterminate left ventricular diastolic function due to severe mitral annular calcification 5. Moderate to severe pulmonary hypertension, PASP 64 mmHg 6. Moderate mitral valve regurgitation. Mild mitral valve stenosis 7. Moderate to severe tricuspid valve regurgitation 8. Compared to echocardiogram on 03/07/2022, the left ventricular systolic function has mildly decreased and the pulmonary hypertension has mildly increased. - History of GI bleed requiring transfer to tertiary level center with IR embolization according to patient - History of acute anemia during this hospitalization now requiring 3 units of blood Plan - After discussing the risk and benefits of anticoagulant therapy, patient has declined anticoagulant therapy - Continue aspirin 81 - Continue statin - Cardiology consulted - She will likely require stress testing versus angiographically at some point once clinically stable - Monitor clinical status closely - Cardiology consulted Fluid overload, pulmonary edema -Bilateral pleural effusion, moderate left-sided pleural effusion -Has end-stage renal disease on dialysis does not urinate much - Plan on CRRT - Will consider Lasix depending on blood pressures this afternoon Acute on chronic anemia with postoperative anemia - Hemoglobin 7.9, EBL 500, -Status post 2 units PRBC -Will give another unit PRBC today - Protonix, Carafate End-stage renal disease, right AV fistula in place, plans on assess catheter placement for CRRT Left upper extremity, left humerus fracture -Open reduction internal fixation of left humerus Hypocalcemia, monitor - Calcium 6.6, corrected calcium 7.1 -pth, vitamin d, ionized calcium Hyponatremia, monitor serum sodium CRRT today NSTEMI, serial EKGs, serial troponins, telemetry monitoring, as above History of GI bleed, as above Type 2 diabetes mellitus, low-dose insulin scale Right basilar pleural base lesion 1. Right basilar pleural-based lesion measuring 1.2 x 2.2 cm. PET-CT scan for further evaluation to exclude neoplasm is advised. 2. Mediastinal adenopathy. PET-CT scan for further evaluation is advised. With calcified pleural plaques in the right chest posteriorly Plan - Will need to follow-up with oncology as outpatient Possible liver cirrhosis?, Will have to follow-up with GI as outpatient PDMP PDMP Reviewed: Not Reviewed Attestations 2 Medical Necessity Statement*: Patient required hospitalization, for septic shock,, UTI, NSTEMI, fluid overload, hyponatremia, Coding Level of Care Code Critical Care >/= 30 minutes Critical care time (in minutes): 50 The high probability of a clinically significant, sudden or life threatening deterioration, as referenced in this documentation, required my full and direct attention, intervention and personal management. The critical care time shown is in addition to time spent performing any reported separately billable procedures and includes the following: [x] Data and vital sign review and interpretation [x ] Patient assessment, examination and intervention [x] Medication orders and management [x] Patient/Family updates as able [x] Care Coordination and Documentation. Diagnoses Postoperative state Z98.890 Status post open reduction and internal fixation (ORIF) of fracture Z98.890; Z87.81 Postoperative anemia D64.9 Septic shock A41.9; R65.21 Diabetes type 2, uncontrolled Hypothyroidism E03.9 Lower GI bleed requiring more than 4 units of blood in 24 hours, ICU, or surgery K92.2 End stage renal disease N18.6 Anemia D64.9 Acute encephalopathy G93.40 NSTEMI (non-ST elevated myocardial infarction) I21.4
[2025-06-25] MEDS: PrismaSol BGK 4/2.5 - 5,000 mL Bag 5000 ML CRRT ×5 (12:51→17:53)
[2025-06-25] MEDS: norepinephrine 4 MG/250 ML BAG 7.5 MG IV (14:51)
[2025-06-25 14:56] LABS: Albumin Level 3.6 g/dL (3.5-5.2); Anion Gap 19.2 (5-19); Blood Urea Nitrogen 48 mg/dL (8-23); Calcium 6.1 mg/dL (8.5-10.5); Carbon Dioxide 19 mmol/L (22-29); Chloride 92 mmol/L (98-107); Creatinine Clr Calc Pharmacy 9.0886; Glucose 170 mg/dL (65-115); Magnesium 2.0 mg/dL (1.7-2.3); Potassium 4.2 mmol/L (3.5-5.1); Sodium 126 mmol/L (136-145)
[2025-06-25 18:58] LABS: Hematocrit 27.6 % (36-47); Hemoglobin 9.20 g/dL (11.27-16.99); Mean Corpuscular HGB Conc 33.3 g/dL (30-55); Mean Corpuscular Hemoglobin 29.6 pg (27-33); Mean Corpuscular Volume 88.7 fl (85-98); Nucleated Red Blood Cells % 0 %; Platelet Count 194 10^3/cmm (157-399); Red Blood Count 3.11 10^6/uL (3.85-5.65); White Blood Count 7.22 10^3/uL (3.29-11.43)
[2025-06-25 19:08] LABS: Albumin Level 3.7 g/dL (3.5-5.2); Anion Gap 16.9 (5-19); Blood Urea Nitrogen 40 mg/dL (8-23); Calcium 6.4 mg/dL (8.5-10.5); Carbon Dioxide 21 mmol/L (22-29); Chloride 94 mmol/L (98-107); Creatinine Clr Calc Pharmacy 10.1454; Glucose 122 mg/dL (65-115); Magnesium 2.1 mg/dL (1.7-2.3); Potassium 3.9 mmol/L (3.5-5.1); Sodium 128 mmol/L (136-145)
--- NOTE | 2025-06-25 22:24 | PC.NURSE ---
Shift SUmmary: Temporary dialysis catheter inserted by Dr De Oliveira. Insertion was uneventful. Started CRRT at 1330 and ended at 2200. Was able to complete 8.5 hours of CRRT. Was able to acheive a net negative fluid balance of -874mL during dialysis session. Dialysis lines heparin locked at disconnect. Levophed was able to be titrated down to 2mcg. CRRT was run without any anticoagulation per physician orders. No clotting complications occurred. However, near the end of the dialysis session, pressure drop values were starting to trend upward. Nurse suspects that we would have likely had to change the filter within the next 2-3 hours.
[2025-06-25 22:37] LABS: Bacillus cereus group Not Detected (NOT DETECT); Bacillus subtillis group Not Detected (NOT DETECT); Corynebacterium Not Detected (NOT DETECT); Cutibacterium acnes (P.acnes) Not Detected (NOT DETECT); Enterococcus faecalis Not Detected (NOT DETECT); Enterococcus faecium Not Detected (NOT DETECT); Listeria Not Detected (NOT DETECT); Micrococcus Not Detected (NOT DETECT); Pan Candida Not Detected (NOT DETECT); Pan Gram-Negative Not Detected (NOT DETECT); Staphylococcus epidermidis Detected (NOT DETECT); Staphylococcus lugdunensis Not Detected (NOT DETECT); Staphylococcus species Detected (NOT DETECT); Streptococcus anginosus group Not Detected (NOT DETECT); Streptococcus pyogenes Not Detected (NOT DETECT); Streptococcus species Not Detected (NOT DETECT); mecA Detected (NOT DETECT); mecC Not Detected (NOT DETECT)
[2025-06-26] VITALS (26 sets, daily range): BP systolic 82–149; BP diastolic 41–82; PULSE 73–96; RESP 13–26; TEMP 36.6–37.2; O2SAT 90–100
[2025-06-26 00:47] LABS: Albumin Level 3.7 g/dL (3.5-5.2); Anion Gap 18.2 (5-19); Blood Urea Nitrogen 37 mg/dL (8-23); Calcium 6.4 mg/dL (8.5-10.5); Carbon Dioxide 20 mmol/L (22-29); Chloride 96 mmol/L (98-107); Creatinine Clr Calc Pharmacy 11.7906; Glucose 148 mg/dL (65-115); Magnesium 2.1 mg/dL (1.7-2.3); Potassium 4.2 mmol/L (3.5-5.1); Sodium 130 mmol/L (136-145)
[2025-06-26] MEDS: pantoprazole 40 mg SDV IVP ×2 (02:58→14:52)
[2025-06-26 04:23] LABS: Hematocrit 27.5 % (36-47); Hemoglobin 8.70 g/dL (11.27-16.99); Mean Corpuscular HGB Conc 31.6 g/dL (30-55); Mean Corpuscular Hemoglobin 28.6 pg (27-33); Mean Corpuscular Volume 90.5 fl (85-98); Nucleated Red Blood Cells % 0 %; Platelet Count 186 10^3/cmm (157-399); Red Blood Count 3.04 10^6/uL (3.85-5.65); White Blood Count 7.38 10^3/uL (3.29-11.43)
[2025-06-26 04:39] LABS: Lactate (Lactic Acid level) 1.0 mmol/L (0.5-2.2)
[2025-06-26 04:43] LABS: INR 1.26 (0.8-1.2); Prothrombin Time 16.60 SECONDS (12.1-14.9)
[2025-06-26 04:48] LABS: Procalcitonin 1.43 ng/mL (0-0.5)
[2025-06-26 05:04] LABS: Alanine Aminotransferase 15 U/L (0-33); Albumin Level 3.7 g/dL (3.5-5.2); Alkaline Phosphatase 143 U/L (35-105); Anion Gap 19.1 (5-19); Aspartate Amino Transferase 15 U/L (0-32); Blood Urea Nitrogen 41 mg/dL (8-23); Calcium 6.4 mg/dL (8.5-10.5); Carbon Dioxide 20 mmol/L (22-29); Chloride 93 mmol/L (98-107); Creatinine Clr Calc Pharmacy 10.1454; Globulin 2.3 g/dL (1.3-4.6); Glucose 149 mg/dL (65-115); Magnesium 2.2 mg/dL (1.7-2.3); Osmolality Calculated 279 mOsm/kg (285-295); Potassium 4.1 mmol/L (3.5-5.1); Sodium 128 mmol/L (136-145); Total Protein 6.0 g/dL (6.6-8.7)
[2025-06-26 05:09] LABS: NT Pro B Type Natriuretic Pept 50030 pg/mL (0-450)
[2025-06-26] MEDS: HYDROcodone-acetaminophen 5-325 mg Tablet PO ×2 (06:12→10:09)
[2025-06-26 07:10] LABS: Albumin Level 3.5 g/dL (3.5-5.2); Anion Gap 20.1 (5-19); Blood Urea Nitrogen 40 mg/dL (8-23); Calcium 6.4 mg/dL (8.5-10.5); Carbon Dioxide 19 mmol/L (22-29); Chloride 94 mmol/L (98-107); Creatinine Clr Calc Pharmacy 10.7061; Glucose 154 mg/dL (65-115); Magnesium 2.1 mg/dL (1.7-2.3); Potassium 4.1 mmol/L (3.5-5.1); Sodium 129 mmol/L (136-145)
--- NOTE | 2025-06-26 09:23 | XR_ITS ---
WS: [id number] Portable AP upright chest, 06/26/2025 Clinical Data: decreased breah sounds Comparison: Portable chest, 06/24/2025 Findings: The left infusion catheter remains in the same position ending in the superior vena cava. There is an additional left internal jugular venous catheter which ends in the superior vena cava. No pneumothorax is seen. There are no nodules, masses or effusions. There is a patchy opacity in the retrocardiac region unchanged. The aortic arch shows calcification. Monitor leads are on the chest wall. There is a stent in the medial aspect of the right arm. There are surgical clips in the left axilla. XR/XR chest 1V portable [id number] Impression: 1. Satisfactory position of the left infusion catheter and left internal jugula r venous catheter. 2. Minimal patchy opacity in the retrocardiac region unchanged. 3. Atherosclerosis.
--- NOTE | 2025-06-26 10:57 | P.PN_ITS ---
Subjective 2 Subjective: Patient is getting dialysis at this time. Patient is able to sit up in bed. Vitals/I&O/Wt Last Vital Signs Temp 99 F 06/26/25 07:30 Pulse 90 06/26/25 09:00 Resp 17 06/26/25 09:00 BP 94/59 06/26/25 09:00 Pulse Ox 94 06/26/25 09:00 O2 Del Method Nasal Cannula 06/26/25 09:00 O2 Flow Rate 11 06/26/25 08:30 06/25/25 06/26/25 06/26/25 22:59 06:59 14:59 Intake Total 417.562 / 1089.250 245.375 / 1334.625 Output Total 100 / 100 Balance 417.562 / 1089.250 145.375 / 1234.625 Weight last 48 hrs Weight 152 lb Weight 150 lb Physical Exam 2 Narrative: While nerves intact dressings clean dry and intact braces in place. Data 06/26/25 03:27 06/26/25 04:33 Micro: Microbiology 06/24/25 15:32 Blood Culture - Preliminary Blood 06/24/25 15:25 Blood Culture - Preliminary Blood NEGATIVE TO DATE 06/24/25 09:15 Urine Culture - Preliminary Urine,Clean Catch A&P Assessment and plan 1. Encounter for postoperative care: Patient is postop day 3 open reduction internal fixation of left humerus. Currently in ICU getting dialysis. PDMP PDMP Reviewed: Not Reviewed Attestations 2 Medical Necessity Statement*: Pain control cardiac issues Coding Level of Care Code Acute Code for Chg Fwd Diagnoses Encounter for postoperative care Z48.89
--- NOTE | 2025-06-26 11:26 | P.PN_ITS ---
<Statement entered by Ronnie Lau MD - 06/26/25 13:32> Patient was evaluated and cared for in conjunction with an advanced practice practitioner. I personally saw the patient and reviewed the chart and all pertinent data. I discussed the patient in detail with the advanced practice practitioner. Please see their note for complete assessment and agreed upon plan of care for the patient. Subjective 2 Subjective: She is doing well this morning, sitting up in the chair. She remains on Levophed for blood pressure support at 2 mcg/min. No chest pain or shortness of breath however breath sounds decreased in the left. Ordering chest x-ray. Vitals/I&O/Wt Last Vital Signs Temp 99 F 06/26/25 07:30 Pulse 90 06/26/25 09:00 Resp 17 06/26/25 09:00 BP 94/59 06/26/25 09:00 Pulse Ox 94 06/26/25 09:00 O2 Del Method Nasal Cannula 06/26/25 09:00 O2 Flow Rate 11 06/26/25 08:30 06/25/25 06/26/25 06/26/25 22:59 06:59 14:59 Intake Total 417.562 / 1334.625 245.375 / 1334.625 Output Total 100 / 100 Balance 417.562 / 1234.625 145.375 / 1234.625 Weight last 48 hrs Weight 152 lb Weight 150 lb Physical Exam 2 Const: COMMON NORMALS: no acute distress and patient oriented x3 GENERAL APPEARANCE: cooperative and comfortable ORIENTATION/CONSCIOUSNESS: Yes awake, Yes oriented to person, Yes oriented to place and Yes oriented to time Chest: COMMONS NORMALS: normal inspection of the chest and normal palpation of entire chest wall CHEST: Yes Symmetrical chest wall rise Resp: COMMON NORMALS: No retractions and No use of accessory muscles EFFORT & INSPECTION: Yes symmetric chest movement, Yes decreased respiratory effort and No labored AUSCULTATION: diminished lung sounds on the left OTHER: Decreased breath sounds could be due to poor inspiratory effort Cardio: COMMON NORMALS: regular rate, regular rhythm, S1 normal heart sound present, S2 normal heart sound present, No gallops present (Cardio), No clicks present (Cardio), No murmurs present (Cardio) and No rub (Cardio) RATE: r egular rate RHYTHM: regular rhythm HEART SOUNDS: S1 normal heart sound present and S2 normal heart sound present PERIPHERAL PULSES: radial pulses present Extremity: COMMON NORMALS: no pedal edema Neuro: COMMON NORMALS: patient oriented x3 and moves all extremities S ENSORIUM/ORIENTATION: Yes oriented to person, Yes oriented to place and Yes oriented to time Data 06/26/25 03:27 06/26/25 04:33 Micro: Microbiology 06/24/25 15:32 Blood Culture - Preliminary Blood 06/24/25 15:25 Blood Culture - Preliminary Blood NEGATIVE TO DATE 06/24/25 09:15 Urine Culture - Preliminary Urine,Clean Catch A&P Assessment and plan 1. NSTEMI (non-ST elevated myocardial infarction): 2. Hypotension: 3. Shock: 4. Persistent atrial fibrillation: 5. Mitral valve regurgitation: 6. Tricuspid valve regurgitation: 7. Acute HFrEF (heart failure with reduced ejection fraction): Plan: Due to new onset LV dysfunction will plan for coronary angiogram, timing will depend on blood pressure and anemia. She appears improved, sitting up in the chair. Will obtain chest x-ray just to ensure no pleural effusion. Continue weaning Levophed infusion as able, blood pressure in the upper 90s systolic both while laying in bed and while sitting in the chair. She is asymptomatic from a cardiovascular perspective. PDMP PDMP Reviewed: Not Reviewed Attestations 2 Medical Necessity Statement*: Systolic CHF and anemia requiring vasopressor Coding Level of Care Code Acute Code for [facility] Diagnoses NSTEMI (non-ST elevated myocardial infarction) I21.4 Hypotension I95.9 Shock R57.9 Persistent atrial fibrillation I48.19 Mitral valve regurgitation I34.0 Tricuspid valve regurgitation I07.1 Acute HFrEF (heart failure with reduced ejection fraction) I50.21
[2025-06-26] MEDS: heparin, porcine 1,000 unit/mL INJ 10 mL 1000 UNIT IV (11:28)
--- NOTE | 2025-06-26 11:43 | P.PN_ITS ---
Subjective 2 Subjective: on 1L NC Medications: Reviewed: Yes Vitals/I&O/Wt Last Vital Signs Temp 99 F 06/26/25 07:30 Pulse 90 06/26/25 09:00 Resp 17 06/26/25 09:00 BP 94/59 06/26/25 09:00 Pulse Ox 94 06/26/25 09:00 O2 Del Method Nasal Cannula 06/26/25 09:00 O2 Flow Rate 11 06/26/25 08:30 06/25/25 06/26/25 06/26/25 22:59 06:59 14:59 Intake Total 417.562 / 1089.250 245.375 / 1334.625 Output Total 100 / 100 Balance 417.562 / 1089.250 145.375 / 1234.625 Weight last 48 hrs Weight 68.946 kg Weight 68.039 kg Physical Exam 2 Narrative: on pressors , no distress , on 1L NC no jvd peerla S1S2 RRR Lungs + crackles Abd sodt , non tender no edema Data 06/26/25 03:27 06/26/25 04:33 Micro: Microbiology 06/24/25 15:32 Blood Culture - Preliminary Blood 06/24/25 15:25 Blood Culture - Preliminary Blood NEGATIVE TO DATE 06/24/25 09:15 Urine Culture - Preliminary Urine,Clean Catch A&P Assessment and plan 1. End stage renal disease: Plan: 1. End-stage renal disease: pt on pressors , s/p CRRT yesterday .plan for HD today 2. Shock, s/p transfusions , on pressors 3. Status post ORIF of humerus fracture 4. Encephalopathy, metabolic 5. Anemia due to blood loss, status posttransfusions 6. Urinary tract infection, 7. Hyponatremia, monitoring closely, and should improve with hemodialysis Patient evaluated using audiovisual cart. Time spent 40 minutes PDMP PDMP Reviewed: Not Reviewed Attestations 2 Medical Necessity Statement*: per rosita Coding Level of Care Code Acute Code for Chg Fwd Diagnoses End stage renal disease N18.6
--- NOTE | 2025-06-26 11:47 | PC.HD ---
Burr Bench Hand requested HD be attempted today using patient's temporary R femoral HD catheter. Unable to draw at all from venous and arterial was quite stiff to draw and flush. Attempted initiation, but unable to run due to high pressure machine alarms, despite attempts at repositioning patient and flushing ports. Contacted autocad designer and was instructed to attempt LAVF. Fistula was accessed without difficulty and treatment commenced at 11:32. Femoral catheter flushed, instilled with heparin, and capped. Dressing changed.
--- NOTE | 2025-06-26 12:08 | PC.OT ---
OT EVALUATION ATTEMPTED; PATIENT IN DIALYSIS.
--- NOTE | 2025-06-26 13:00 | P.PN_ITS ---
Subjective 2 Subjective: Currently remains on Levophed of 2. Hemoglobin stable at 8.7 this morning. Alert awake oriented sitting up in a chair today. Blood culture reported positive from 06/24/2025 with gram-positive cocci in clusters. Medications: Reviewed: Yes Vitals/I&O/Wt Last Vital Signs Temp 98.8 F 06/26/25 11:42 Pulse 88 06/26/25 11:42 Resp 16 06/26/25 11:42 BP 102/69 06/26/25 11:42 Pulse Ox 94 06/26/25 09:00 O2 Del Method Nasal Cannula 06/26/25 09:00 O2 Flow Rate 11 06/26/25 08:30 06/25/25 06/26/25 06/26/25 22:59 06:59 14:59 Intake Total 417.562 / 1089.250 245.375 / 1334.625 120 / 120 Output Total 100 / 100 Balance 417.562 / 1089.250 145.375 / 1234.625 120 / 120 Weight last 48 hrs Weight 68.946 kg Weight 68.039 kg Physical Exam 2 Narrative: General: No acute distress, chronically ill-appearing HEENT: PERRLA, pupils bilaterally equal and reactive, pallors not present Chest: Normal vesicular breath sounds, no added sounds, equal good air entry bilaterally CVS: S1-S2 regular, no murmurs, no tachycardia, no gallops, no rubs Abdomen: Soft, nontender, no organomegaly, bowel sounds present Neuro: No focal deficits, no facial deformity, AO x3, power 5/5 in all limbs Urinary Catheter Management: Spears: Cath Placed During This Visit: yes, but has since been removed by the nurse Reason for Continuing Indwelling Catheter: Decision to DC Catheter Date Urinary Catheter Removed: 06/26/25 Time Urinary Catheter Discontinued: 10:50 Data 06/26/25 03:27 06/26/25 04:33 Micro: Microbiology 06/26/25 12:24 Blood Culture - Preliminary Blood SPECIMEN COLLECTED 06/26/25 12:27 Blood Culture - Preliminary Blood SPECIMEN COLLECTED 06/24/25 09:15 Urine Culture - Final Urine,Clean Catch 06/24/25 15:32 Blood Culture - Preliminary Blood 06/24/25 15:25 Blood Culture - Preliminary Blood NEGATIVE TO DATE NAME: María Saab LOC: ICU U #: [id number] AGE/SX: 75/F ROOM: ICU11 R E06/24/[address]: Juan Ramon Ferrera DO : 1950 BED: 1 D IS: FAX #: STATUS: ADM IN TLOC: Spec #: [id number] Ramon: 06/24/25-1531 Status: RES Req #: [id number] Recd: 06/24/[address]: Cas Arana MD Src: Blood SpDesc: Ordered: Bcult Comments: 1351 LAUPA Procedure Result Verified Site Blood Culture Preliminary 06/25/25 GRAM STAIN: BOTTLE: GRAM POSITIVE COCCI IN CLUSTERS. CALLED & READBACK BY: ANNA @[id number]/[email or web address] Blood Culture Preliminary (changed) 06/25/25 NEGATIVE TO DATE Blood Culture Preliminary (changed) 06/24/25-1549 SPECIMEN COLLECTED NAME: María Saab LOC: ICU U #: [id number] AGE/SX: 75/F ROOM: ICU11 R E06/24/[address]: Juan Ramon Ferrera DO : 1950 BED: 1 D IS: FAX #: STATUS: ADM IN TLOC: Spec #: [id number] Ramon: 06/24/25-1524 Status: RES Req #: [id number] Recd: 06/24/[address]: Cas Arana MD Src: Blood SpDesc: Ordered: Bcult Comments: 1351 LAUPA Procedure Result Verified Site Blood Culture Preliminary 06/25/25-1544 NEGATIVE TO DATE Blood Culture Preliminary (changed) 06/24/25-1549 SPECIMEN COLLECTED A&P Assessment and plan 1. Postoperative state: 2. Status post open reduction and internal fixation (ORIF) of fracture: 3. Postoperative anemia: 4. Septic shock: 5. Uncontrolled type 2 diabetes mellitus with hyperglycemia: 6. Hypothyroidism, unspecified type: 7. Lower GI bleed requiring more than 4 units of blood in 24 hours, ICU, or surgery: 8. End stage renal disease: 9. Anemia: 10. Acute encephalopathy: 11. NSTEMI (non-ST elevated myocardial infarction): Plan: Acute encephalopathy, resolving -likely secondary to hypotension - Likely secondary metabolic acidosis - Likely secondary to hyponatremia - Likely secondary to UTI - Opponent acute on chronic anemia - Neurochecks - NIH stroke scale -aspiration precautions Multifactorial shock -Acute anemia -Possible component of cardiogenic shock? EF 45%, echocardiogram findings as below -Septic shock secondary to urinary tract infection - Maintain MAP more than 65, currently on 8 of Levophed - Status post sepsis bolus - Status post albumin - Continue vancomycin - Continue Zosyn - Follow blood cultures - Follow urine culture NSTEMI - No chest pain complaints - Type I versus type II NSTEMI -Does have septic shock secondary to UTI, acute anemia, is on Levophed, has end- stage renal disease on dialysis, fluid overload, bilateral pleural effusions CONCLUSIONS 1. Normal LV size. Mildly reduced left ventricular systolic function with severe hypokinesis of the septum and inferior maldonado. Overall ejection fraction 45%. 2. Moderately dilated right ventricle. Mildly reduced right ventricular systolic function 3. Moderate left atrial enlargement 4. Indeterminate left ventricular diastolic function due to severe mitral annular calcification 5. Moderate to severe pulmonary hypertension, PASP 64 mmHg 6. Moderate mitral valve regurgitation. Mild mitral valve stenosis 7. Moderate to severe tricuspid valve regurgitation 8. Compared to echocardiogram on 03/07/2022, the left ventricular systolic function has mildly decreased and the pulmonary hypertension has mildly increased. - History of GI bleed requiring transfer to tertiary level center with IR embolization according to patient - History of acute anemia during this hospitalization now requiring 3 units of blood Plan - After discussing the risk and benefits of anticoagulant therapy, patient has declined anticoagulant therapy - Continue aspirin 81 - Continue statin - Cardiology consulted - She will likely require stress testing versus angiographically at some point once clinically stable - Monitor clinical status closely - Cardiology consulted Fluid overload, pulmonary edema -Bilateral pleural effusion, moderate left-sided pleural effusion -Has end-stage renal disease on dialysis does not urinate much - Plan on CRRT - Will consider Lasix depending on blood pressures this afternoon Acute on chronic anemia with postoperative anemia - Hemoglobin 7.9, EBL 500, -Status post 2 units PRBC -Will give another unit PRBC today - Protonix, Carafate End-stage renal disease, right AV fistula in place, plans on assess catheter placement for CRRT Left upper extremity, left humerus fracture -Open reduction internal fixation of left humerus Hypocalcemia, monitor - Calcium 6.6, corrected calcium 7.1 -pth, vitamin d, ionized calcium Hyponatremia, monitor serum sodium CRRT today NSTEMI, serial EKGs, serial troponins, telemetry monitoring, as above History of GI bleed, as above Type 2 diabetes mellitus, low-dose insulin scale Right basilar pleural base lesion 1. Right basilar pleural-based lesion measuring 1.2 x 2.2 cm. PET-CT scan for further evaluation to exclude neoplasm is advised. 2. Mediastinal adenopathy. PET-CT scan for further evaluation is advised. With calcified pleural plaques in the right chest posteriorly Plan - Will need to follow-up with oncology as outpatient Possible liver cirrhosis?, Will have to follow-up with GI as outpatient June 26, 2025 Chart reviewed in detail. Patient with chronic comorbidities including ESRD on hemodialysis, hypothyroidism, diabetes mellitus, chronic anemia, history of GI bleed, hypertension, hyperlipidemia, admitted to the hospital on June 23, 2025 for planned open reduction internal fixation of a left humerus fracture. Postoperative course was notable for hypotension, altered mental status manifested as encephalopathy.. She received fluid boluses and was moved to the ICU. She has remained on Levophed, currently at 2 mics. Concern for postoperative weight loss for which patient received blood transfusion. Left IJ central line was placed in addition to having a port on the same side before due to need for multiple medications at the same time. There was no evidence of acute stroke. Patient was on CRRT as unable to tolerate hemodialysis with low blood pressure. Today patient appears to be improved. She is alert awake and oriented x 3. Levophed requirement is down at 2 mics. Plan is to resume hemodialysis today. Will add midodrine 10 mg 3 times daily to allow room on the blood pressure to be able to tolerate dialysis. Remove Spears catheter as strict output monitoring is not currently indicated in a patient on hemodialysis. CT of the chest abdomen and pelvis completed on 06/24/2025 showed a right basilar pleural-based region measuring 1.2 x 2.2 cm concerning for neoplasm. This appears to be an incidental finding. There was also mediastinal adenopathy. PET scan is recommended as an outpatient to further characterize. Liver cirrhosis was suspected based on irregular border and heterogeneous appearance of the liver. No other acute blood loss or infectious signs were found in the chest or abdomen. Urine analysis showed multiple urine WBCs, 4+ bacteria, 3+ leukocyte esterase, negative nitrate. Possibility of UTI considered, however urine culture has only showed mixed urogenital swetha on day 2 so far. She is on empiric meropenem and vancomycin at this time. Blood culture from 06/24 was reported positive for GPC's in clusters 1 out of 3 bottles. She is on empiric vancomycin. Currently awaiting identification of these GPC's. With the port in place certainly concerned that patient could have a staphylococcal infection. Will obtain repeat blood cultures today, 1 set from periphery and 1 set from the port. Patient denies any past history of port infection. Echocardiogram from 06/24/2025 showed a mildly reduced LVEF of 45% and severe hypokinesia of the septum and inferior maldonado. Right ventricle was moderately dilated. There was moderate to severe pulmonary hypertension with a PASP of 64 mmHg. There was moderate to severe tricuspid valve regurgitation as well. No gross vegetations were noted on TTE. Compared to 2021 hypokinesia was noted back then however the EF did drop from 55% previously. Cardiology service was consulted yesterday due to elevated troponins 105-->155--> 179 with delta of 50 and 74. She denied any chest pain. This was thought to be related to type II NSTEMI due to hypotension and anemia. Though there is a high risk of underlying CAD, angiogram has been deferred for now given that patient has a history of GI bleed and is not a good candidate currently to be on DAPT. This may need to be reassessed as an outpatient. Medical management with aspirin, atorvastatin and addition of beta- jose recommended once off pressors. Patient has also been noted to be having persistent A-fib. This is not a known history for patient. She will not be on anticoagulation candidate given history of severe GI bleed in 2021. May need to consider outpatient Watchman device. Currently A-fib is rate controlled. PDMP PDMP Reviewed: Not Reviewed Attestations 2 Medical Necessity Statement*: Ongoing need for IV antibiotics, needs follow-up blood cultures, GPC's needing identification from blood to isolate, continues to be on pressor support, NSTEMI, CRRT to hemodialysis today Critical Care Time: The high probability of a clinically significant, sudden or life threatening deterioration of the patient's [cardiac, renal, ID, pulmonary] system(s) required my full and direct attention, intervention and personal management. The critical care time is as shown. This time is in addition to time spent performing any reported procedures but includes the following: [x] Data and vital sign review and interpretation [x] Patient assessment, examination and intervention [x] Documentation [x] Medication orders and management Critical Care Time (min): 60 Coding Level of Care Code Acute Code for Chg Fwd Diagnoses Postoperative state Z98.890 Status post open reduction and internal fixation (ORIF) of fracture Z98.890; Z87.81 Postoperative anemia D64.9 Septic shock A41.9; R65.21 Uncontrolled type 2 diabetes mellitus with hyperglycemia Hypothyroidism, unspecified type E03.9 Lower GI bleed requiring more than 4 units of blood in 24 hours, ICU, or surgery K92.2 End stage renal disease N18.6 Anemia D64.9 Acute encephalopathy G93.40 NSTEMI (non-ST elevated myocardial infarction) I21.4
[2025-06-26 13:02] LABS: Albumin Level 3.5 g/dL (3.5-5.2); Anion Gap 14.1 (5-19); Blood Urea Nitrogen 28 mg/dL (8-23); Calcium 7.2 mg/dL (8.5-10.5); Carbon Dioxide 23 mmol/L (22-29); Chloride 97 mmol/L (98-107); Creatinine Clr Calc Pharmacy 15.1362; Glucose 134 mg/dL (65-115); Magnesium 2.0 mg/dL (1.7-2.3); Potassium 3.1 mmol/L (3.5-5.1); Sodium 131 mmol/L (136-145)
--- NOTE | 2025-06-26 14:31 | PC.SOCIAL ---
*IMM Updated* Initialed and dated and in chart, patient received copy.
[2025-06-26] MEDS: ondansetron 2 mg/ML SDV 2 mL 4 MG IVP ×2 (15:32→22:15)
--- NOTE | 2025-06-26 17:00 | PC.NURSE ---
Spoke with Dr badillo and enid Granados to removed HD temp cath, fabián. as blood flow poor. Stitches removed, cath removed intact, pressure held until hemostatis obtained. Gauze and bioclusive dressing applied. Pt tolerated well. No rednes or swelling noted at site.
--- NOTE | 2025-06-26 18:23 | PC.NURSE ---
Shift summary: Pt had HD today per her fistula. 1.4 liters removed. HD cath sluggish poor blood flow. It was removed. Pt started on Miodrine today. Levophed was at 2mcg/min, stopped after dialysis. Pt was up to chair for breakfast tolerated it well. Spears cath removed due to pt's HD history and poor urine output. Pt has been incontinent of Bm 3 times this shift. Ot and speech therapy seen her this afternoon. Pt is tolerating Dysphagia 6 level diet much better thatn the level 4. SHe ate most of her dinner. She skipped lunch and only ate a few bits of her level 4 breakfast. She did have one bout of nausea this afternoon, Zofran admin, it resolved. She has received pain med 1 x this shift.
[2025-06-27] VITALS (30 sets, daily range): BP systolic 75–122; BP diastolic 23–66; PULSE 69–91; RESP 4–24; TEMP 36.4–36.7; O2SAT 66–100
[2025-06-27] MEDS: pantoprazole 40 mg SDV IVP ×2 (02:13→14:16)
[2025-06-27 03:46] LABS: INR 1.29 (0.8-1.2); Prothrombin Time 16.90 SECONDS (12.1-14.9)
[2025-06-27 03:57] LABS: Lactate (Lactic Acid level) 1.6 mmol/L (0.5-2.2)
[2025-06-27 04:01] LABS: Procalcitonin 1.33 ng/mL (0-0.5)
[2025-06-27 04:30] LABS: NT Pro B Type Natriuretic Pept > 70000 pg/mL (0-450)
--- NOTE | 2025-06-27 04:50 | P.PN_ITS ---
Subjective 2 Subjective: no new c/o Medications: Reviewed: Yes Vitals/I&O/Wt Last Vital Signs Temp 97.9 F 06/26/25 15:10 Pulse 88 06/26/25 22:00 Resp 17 06/26/25 16:30 BP 103/72 06/26/25 16:30 Pulse Ox 96 06/26/25 16:00 O2 Del Method Nasal Cannula 06/26/25 16:30 O2 Flow Rate 1 06/26/25 16:30 06/26/25 06/26/25 06/27/25 14:59 22:59 06:59 Intake Total 120 / 120 866.375 / 986.375 Output Total 50 / 50 1700 / 1750 Balance 70 / 70 -833.625 / -763.625 Weight last 48 hrs Weight 71.8 kg Weight 68.946 kg Weight 68.039 kg Physical Exam 2 Narrative: , no distress , on 1L NC no jvd peerla S1S2 RRR Lungs + crackles Abd sodt , non tender no edema Urinary Catheter Management: Spears: Cath Placed During This Visit: yes, but has since been removed by the nurse Reason for Continuing Indwelling Catheter: Decision to DC Catheter Date Urinary Catheter Removed: 06/26/25 Time Urinary Catheter Discontinued: 10:50 Data 06/27/25 09:53 06/27/25 09:53 Micro: Microbiology 06/26/25 18:10 Occult Blood (FIT) - Final Stool Routine Collection 06/24/25 15:32 Blood Culture - Preliminary Blood Staphylococcus epidermidis 06/24/25 15:25 Blood Culture - Preliminary Blood NEGATIVE TO DATE 06/26/25 12:24 Blood Culture - Preliminary Blood SPECIMEN COLLECTED 06/26/25 12:27 Blood Culture - Preliminary Blood SPECIMEN COLLECTED 06/24/25 09:15 Urine Culture - Final Urine,Clean Catch A&P Assessment and plan 1. End stage renal disease: Plan: 1. End-stage renal disease: HD yesterday , next HD tomorrow 2. Shock, s/p transfusions , off pressors 3. Status post ORIF of humerus fracture 4. Encephalopathy, metabolic 5. Anemia due to blood loss, status posttransfusions 6. Urinary tract infection, 7. Hyponatremia, monitoring closely, and should improve with hemodialysis Patient evaluated using audiovisual cart. Time spent 40 minutes PDMP PDMP Reviewed: Not Reviewed Attestations 2 Medical Necessity Statement*: per medicine Coding Level of Care Code Acute Code for Chg Fwd Diagnoses End stage renal disease N18.6
--- NOTE | 2025-06-27 09:56 | P.PN_ITS ---
Subjective 2 Subjective: Patient remains in the ICU. Pain is controlled Vitals/I&O/Wt Last Vital Signs Temp 97.9 F 06/26/25 15:10 Pulse 91 06/27/25 05:25 Resp 17 06/26/25 16:30 BP 103/72 06/26/25 16:30 Pulse Ox 96 06/26/25 16:00 O2 Del Method Nasal Cannula 06/26/25 16:30 O2 Flow Rate 1 06/26/25 16:30 06/26/25 06/27/25 06/27/25 22:59 06:59 14:59 Intake Total 866.375 / 986.375 240 / 240 Output Total 1700 / 1750 Balance -833.625 / -763.625 240 / 240 Weight last 48 hrs Weight 148 lb Weight 158 lb 4.67 oz Weight 152 lb Physical Exam 2 Narrative: Dressing was taken down wound is clean dry and intact. Will put a new dressing on. Will keep her out of brace for a while to give her break. Urinary Catheter Management: Spears: Cath Placed During This Visit: yes, but has since been removed by the nurse Reason for Continuing Indwelling Catheter: Decision to DC Catheter Date Urinary Catheter Removed: 06/26/25 Time Urinary Catheter Discontinued: 10:50 Data 06/26/25 03:27 06/26/25 12:24 Micro: Microbiology 06/26/25 18:10 Occult Blood (FIT) - Final Stool Routine Collection 06/24/25 15:32 Blood Culture - Preliminary Blood Staphylococcus epidermidis 06/24/25 15:25 Blood Culture - Preliminary Blood NEGATIVE TO DATE 06/26/25 12:24 Blood Culture - Preliminary Blood SPECIMEN COLLECTED 06/26/25 12:27 Blood Culture - Preliminary Blood SPECIMEN COLLECTED 06/24/25 09:15 Urine Culture - Final Urine,Clean Catch A&P Assessment and plan 1. Humerus fracture: Status post ORIF of humerus. Continue to follow PDMP PDMP Reviewed: Not Reviewed Attestations 2 Medical Necessity Statement*: Patient is still in the ICU. Coding Level of Care Code Acute Code for [facility] Fwd Diagnoses Humerus fracture S42.309A
[2025-06-27 10:05] LABS: Hematocrit 22.2 % (36-47); Hemoglobin 7.20 g/dL (11.27-16.99); Mean Corpuscular HGB Conc 32.4 g/dL (30-55); Mean Corpuscular Hemoglobin 29.1 pg (27-33); Mean Corpuscular Volume 89.9 fl (85-98); Nucleated Red Blood Cells % 0 %; Platelet Count 175 10^3/cmm (157-399); Red Blood Count 2.47 10^6/uL (3.85-5.65); White Blood Count 5.71 10^3/uL (3.29-11.43)
[2025-06-27 10:26] LABS: Alanine Aminotransferase 13 U/L (0-33); Albumin Level 3.2 g/dL (3.5-5.2); Alkaline Phosphatase 113 U/L (35-105); Anion Gap 13.7 (5-19); Aspartate Amino Transferase 13 U/L (0-32); Blood Urea Nitrogen 26 mg/dL (8-23); Calcium 6.9 mg/dL (8.5-10.5); Carbon Dioxide 25 mmol/L (22-29); Chloride 99 mmol/L (98-107); Creatinine Clr Calc Pharmacy 13.1380; Globulin 2.3 g/dL (1.3-4.6); Glucose 115 mg/dL (65-115); Magnesium 2.0 mg/dL (1.7-2.3); Osmolality Calculated 284 mOsm/kg (285-295); Potassium 3.7 mmol/L (3.5-5.1); Sodium 134 mmol/L (136-145); Total Protein 5.5 g/dL (6.6-8.7)
--- NOTE | 2025-06-27 10:31 | P.PN_ITS ---
<Statement entered by Gilbert Bass M.D - 06/29/25 11:18> Patient was cared for in conjunction with an advanced practice practitioner.? I reviewed the chart and all pertinent data including imaging, telemetry, and laboratory results.? I discussed the patient in detail with the advanced practice practitioner.? Please see?their note for progress note, testing results and agreed upon plan of care for the patient. Subjective 2 Subjective: No events noted overnight. She had 1500 mL out in hemodialysis yesterday. She was started on midodrine 10 mg 3 times a day, Levophed infusion discontinued. Blood pressures and heart rates are stable. She still has some crackles in the bases. Hemoglobin 7.2 today, down from 8.7 yesterday. Vitals/I&O/Wt Last Vital Signs Temp 97.9 F 06/26/25 15:10 Pulse 91 06/27/25 05:25 Resp 17 06/26/25 16:30 BP 103/72 06/26/25 16:30 Pulse Ox 96 06/26/25 16:00 O2 Del Method Nasal Cannula 06/26/25 16:30 O2 Flow Rate 1 06/26/25 16:30 06/26/25 06/27/25 06/27/25 22:59 06:59 14:59 Intake Total 866.375 / 986.375 240 / 240 Output Total 1700 / 1750 Balance -833.625 / -763.625 240 / 240 Weight last 48 hrs Weight 148 lb Weight 158 lb 4.67 oz Weight 152 lb Physical Exam 2 Const: COMMON NORMALS: no acute distress and patient oriented x3 GENERAL APPEARANCE: cooperative and comfortable ORIENTATION/CONSCIOUSNESS: Yes awake, Yes oriented to person, Yes oriented to place and Yes oriented to time Chest: COMMONS NORMALS: normal inspection of the chest and normal palpation of entire chest wall CHEST: Yes Symmetrical chest wall rise Resp: COMMON NORMALS: normal respiratory effort, No retractions and No use of accessory muscles EFFORT & INSPECTION: Yes symmetric chest movement A USCULTATION: crackles (bases) Laterality: bilateral and posterior Cardio: COMMON NORMALS: regular rate, S1 normal heart sound present, S2 normal heart sound present, No gallops present (Cardio), No clicks present (Cardio) and No rub (Cardio) RATE: regular rate RHYTHM: abnormal rhythm irregularly irregular HEART SOUNDS: S1 normal heart sound present, S2 normal heart sound present and Murmur heart sound present systolic Location: right sternal border Intensity: II/ PERIPHERAL PULSES: radial pulses present Extremity: COMMON NORMALS: no pedal edema Neuro: COMMON NORMALS: patient oriented x3 and moves all extremities S ENSORIUM/ORIENTATION: Yes oriented to person, Yes oriented to place and Yes oriented to time Urinary Catheter Management: Spears: Cath Placed During This Visit: yes, but has since been removed by the nurse Reason for Continuing Indwelling Catheter: Decision to DC Catheter Date Urinary Catheter Removed: 06/26/25 Time Urinary Catheter Discontinued: 10:50 Data 06/27/25 09:53 06/27/25 09:53 Micro: Microbiology 06/26/25 18:10 Occult Blood (FIT) - Final Stool Routine Collection 06/24/25 15:32 Blood Culture - Preliminary Blood Staphylococcus epidermidis 06/24/25 15:25 Blood Culture - Preliminary Blood NEGATIVE TO DATE 06/26/25 12:24 Blood Culture - Preliminary Blood SPECIMEN COLLECTED 06/26/25 12:27 Blood Culture - Preliminary Blood SPECIMEN COLLECTED 06/24/25 09:15 Urine Culture - Final Urine,Clean Catch A&P Assessment and plan 1. NSTEMI (non-ST elevated myocardial infarction): 2. Hypotension: 3. Persistent atrial fibrillation: 4. Mitral valve regurgitation: 5. Tricuspid valve regurgitation: 6. Acute HFrEF (heart failure with reduced ejection fraction): 7. Diabetes mellitus: 8. End stage renal disease: 9. Acute on chronic anemia: Plan: Pleural effusion improved, she still has crackles. Received dialysis treatment yesterday. She will need coronary angiogram for investigation of new onset systolic CHF, however timing of procedure will be up to her surgeon Dr. Ferrera, due to her postoperative state. She also has atrial fibrillation and would benefit from anticoagulation however due to history of severe anemia, history of GI bleed in 2021, and ESRD this is currently contraindicated. Dr. Lau has discussed Watchman device with the patient, can discuss again in the future office visit. PDMP PDMP Reviewed: Not Reviewed Attestations 2 Medical Necessity Statement*: New onset systolic CHF Coding Level of Care Code Acute Code for [facility] Diagnoses NSTEMI (non-ST elevated myocardial infarction) I21.4 Hypotension I95.9 Persistent atrial fibrillation I48.19 Mitral valve regurgitation I34.0 Tricuspid valve regurgitation I07.1 Acute HFrEF (heart failure with reduced ejection fraction) I50.21 Diabetes mellitus E11.9 End stage renal disease N18.6 Acute on chronic anemia D64.9
[2025-06-27 12:10] LABS: Vit D 1,25 (Oh)2, Total 20 pg/mL (18-72); Vit D2 1,25 (Oh)2 <8 pg/mL; Vit D3 1,25 (Oh)2 20 pg/mL
--- NOTE | 2025-06-27 16:03 | PC.NURSE ---
Report called to Emma RN
--- NOTE | 2025-06-27 17:35 | P.PN_ITS ---
Subjective 2 Subjective: no new complaints today, participates with PT, off pressors Medications: Reviewed: Yes Vitals/I&O/Wt Last Vital Signs Temp 97.6 F 06/27/25 16:00 Pulse 84 06/27/25 16:00 Resp 19 H 06/27/25 16:00 BP 103/66 06/27/25 16:00 Pulse Ox 96 06/27/25 16:00 O2 Del Method Room Air 06/27/25 16:00 O2 Flow Rate 1 06/26/25 16:30 06/27/25 06/27/25 06/27/25 06:59 14:59 22:59 Intake Total 360 / 360 250 / 610 Balance 360 / 360 250 / 610 Weight last 48 hrs Weight 67.132 kg Weight 71.8 kg Weight 68.946 kg Physical Exam 2 Narrative: General: No acute distress, chronically ill-appearing HEENT: PERRLA, pupils bilaterally equal and reactive, pallors not present Chest: Normal vesicular breath sounds, no added sounds, equal good air entry bilaterally CVS: S1-S2 regular, no murmurs, no tachycardia, no gallops, no rubs Abdomen: Soft, nontender, no organomegaly, bowel sounds present Neuro: No focal deficits, no facial deformity, AO x3, power 5/5 in all limbs Urinary Catheter Management: Spears: Cath Placed During This Visit: yes, but has since been removed by the nurse Reason for Continuing Indwelling Catheter: Decision to DC Catheter Date Urinary Catheter Removed: 06/26/25 Time Urinary Catheter Discontinued: 10:50 Data 06/27/25 09:53 06/27/25 09:53 Micro: Microbiology 06/26/25 12:24 Blood Culture - Preliminary Blood NEGATIVE TO DATE 06/26/25 12:27 Blood Culture - Preliminary Blood NEGATIVE TO DATE 06/26/25 18:10 Occult Blood (FIT) - Final Stool Routine Collection 06/24/25 15:32 Blood Culture - Preliminary Blood Staphylococcus epidermidis 06/24/25 15:25 Blood Culture - Preliminary Blood NEGATIVE TO DATE A&P Assessment and plan 1. Postoperative state: 2. Status post open reduction and internal fixation (ORIF) of fracture: 3. Postoperative anemia: 4. Septic shock: 5. Uncontrolled type 2 diabetes mellitus with hyperglycemia: 6. Hypothyroidism, unspecified type: 7. Lower GI bleed requiring more than 4 units of blood in 24 hours, ICU, or surgery: 8. End stage renal disease: 9. Anemia: 10. Acute encephalopathy: 11. NSTEMI (non-ST elevated myocardial infarction): Plan: Acute encephalopathy, resolving -likely secondary to hypotension - Likely secondary metabolic acidosis - Likely secondary to hyponatremia - Likely secondary to UTI - Opponent acute on chronic anemia - Neurochecks - NIH stroke scale -aspiration precautions Multifactorial shock -Acute anemia -Possible component of cardiogenic shock? EF 45%, echocardiogram findings as below -Septic shock secondary to urinary tract infection - Maintain MAP more than 65, currently on 8 of Levophed - Status post sepsis bolus - Status post albumin - Continue vancomycin - Continue Zosyn - Follow blood cultures - Follow urine culture NSTEMI - No chest pain complaints - Type I versus type II NSTEMI -Does have septic shock secondary to UTI, acute anemia, is on Levophed, has end- stage renal disease on dialysis, fluid overload, bilateral pleural effusions CONCLUSIONS 1. Normal LV size. Mildly reduced left ventricular systolic function with severe hypokinesis of the septum and inferior maldonado. Overall ejection fraction 45%. 2. Moderately dilated right ventricle. Mildly reduced right ventricular systolic function 3. Moderate left atrial enlargement 4. Indeterminate left ventricular diastolic function due to severe mitral annular calcification 5. Moderate to severe pulmonary hypertension, PASP 64 mmHg 6. Moderate mitral valve regurgitation. Mild mitral valve stenosis 7. Moderate to severe tricuspid valve regurgitation 8. Compared to echocardiogram on 03/07/2022, the left ventricular systolic function has mildly decreased and the pulmonary hypertension has mildly increased. - History of GI bleed requiring transfer to tertiary level center with IR embolization according to patient - History of acute anemia during this hospitalization now requiring 3 units of blood Plan - After discussing the risk and benefits of anticoagulant therapy, patient has declined anticoagulant therapy - Continue aspirin 81 - Continue statin - Cardiology consulted - She will likely require stress testing versus angiographically at some point once clinically stable - Monitor clinical status closely - Cardiology consulted Fluid overload, pulmonary edema -Bilateral pleural effusion, moderate left-sided pleural effusion -Has end-stage renal disease on dialysis does not urinate much - Plan on CRRT - Will consider Lasix depending on blood pressures this afternoon Acute on chronic anemia with postoperative anemia - Hemoglobin 7.9, EBL 500, -Status post 2 units PRBC -Will give another unit PRBC today - Protonix, Carafate End-stage renal disease, right AV fistula in place, plans on assess catheter placement for CRRT Left upper extremity, left humerus fracture -Open reduction internal fixation of left humerus Hypocalcemia, monitor - Calcium 6.6, corrected calcium 7.1 -pth, vitamin d, ionized calcium Hyponatremia, monitor serum sodium CRRT today NSTEMI, serial EKGs, serial troponins, telemetry monitoring, as above History of GI bleed, as above Type 2 diabetes mellitus, low-dose insulin scale Right basilar pleural base lesion 1. Right basilar pleural-based lesion measuring 1.2 x 2.2 cm. PET-CT scan for further evaluation to exclude neoplasm is advised. 2. Mediastinal adenopathy. PET-CT scan for further evaluation is advised. With calcified pleural plaques in the right chest posteriorly Plan - Will need to follow-up with oncology as outpatient Possible liver cirrhosis?, Will have to follow-up with GI as outpatient June 26, 2025 Chart reviewed in detail. Patient with chronic comorbidities including ESRD on hemodialysis, hypothyroidism, diabetes mellitus, chronic anemia, history of GI bleed, hypertension, hyperlipidemia, admitted to the hospital on June 23, 2025 for planned open reduction internal fixation of a left humerus fracture. Postoperative course was notable for hypotension, altered mental status manifested as encephalopathy.. She received fluid boluses and was moved to the ICU. She has remained on Levophed, currently at 2 mics. Concern for postoperative weight loss for which patient received blood transfusion. Left IJ central line was placed in addition to having a port on the same side before due to need for multiple medications at the same time. There was no evidence of acute stroke. Patient was on CRRT as unable to tolerate hemodialysis with low blood pressure. Today patient appears to be improved. She is alert awake and oriented x 3. Levophed requirement is down at 2 mics. Plan is to resume hemodialysis today. Will add midodrine 10 mg 3 times daily to allow room on the blood pressure to be able to tolerate dialysis. Remove Spears catheter as strict output monitoring is not currently indicated in a patient on hemodialysis. CT of the chest abdomen and pelvis completed on 06/24/2025 showed a right basilar pleural-based region measuring 1.2 x 2.2 cm concerning for neoplasm. This appears to be an incidental finding. There was also mediastinal adenopathy. PET scan is recommended as an outpatient to further characterize. Liver cirrhosis was suspected based on irregular border and heterogeneous appearance of the liver. No other acute blood loss or infectious signs were found in the chest or abdomen. Urine analysis showed multiple urine WBCs, 4+ bacteria, 3+ leukocyte esterase, negative nitrate. Possibility of UTI considered, however urine culture has only showed mixed urogenital swetha on day 2 so far. She is on empiric meropenem and vancomycin at this time. Blood culture from 06/24 was reported positive for GPC's in clusters 1 out of 3 bottles. She is on empiric vancomycin. Currently awaiting identification of these GPC's. With the port in place certainly concerned that patient could have a staphylococcal infection. Will obtain repeat blood cultures today, 1 set from periphery and 1 set from the port. Patient denies any past history of port infection. Echocardiogram from 06/24/2025 showed a mildly reduced LVEF of 45% and severe hypokinesia of the septum and inferior maldonado. Right ventricle was moderately dilated. There was moderate to severe pulmonary hypertension with a PASP of 64 mmHg. There was moderate to severe tricuspid valve regurgitation as well. No gross vegetations were noted on TTE. Compared to 2021 hypokinesia was noted back then however the EF did drop from 55% previously. Cardiology service was consulted yesterday due to elevated troponins 105-->155--> 179 with delta of 50 and 74. She denied any chest pain. This was thought to be related to type II NSTEMI due to hypotension and anemia. Though there is a high risk of underlying CAD, angiogram has been deferred for now given that patient has a history of GI bleed and is not a good candidate currently to be on DAPT. This may need to be reassessed as an outpatient. Medical management with aspirin, atorvastatin and addition of beta- jose recommended once off pressors. Patient has also been noted to be having persistent A-fib. This is not a known history for patient. She will not be on anticoagulation candidate given history of severe GI bleed in 2021. May need to consider outpatient Watchman device. Currently A-fib is rate controlled. 06/27/25: clinically improving. BP mainained with midodrine 10mg TID , off levophed. Temp HD cath removed. Blood cx with staph epidermidis, likely contaminant. Plan to d/c vanc if port cx negative by tomorrow. working with PT, OT. encourage ambulation PDMP PDMP Reviewed: Not Reviewed Attestations 2 Medical Necessity Statement*: per admitting Coding Level of Care Code Acute Code for [facility] Diagnoses Postoperative state Z98.890 Status post open reduction and internal fixation (ORIF) of fracture Z98.890; Z87.81 Postoperative anemia D64.9 Septic shock A41.9; R65.21 Uncontrolled type 2 diabetes mellitus with hyperglycemia Hypothyroidism, unspecified type E03.9 Lower GI bleed requiring more than 4 units of blood in 24 hours, ICU, or surgery K92.2 End stage renal disease N18.6 Anemia D64.9 Acute encephalopathy G93.40 NSTEMI (non-ST elevated myocardial infarction) I21.4
--- NOTE | 2025-06-27 19:43 | XRR_ITS ---
PROCEDURE INFORMATION: Exam: XR Left Humerus Exam date and time: 06/27/2025 7:49 PM Age: 75 years old Clinical indication: Swelling; Arm, upper; Left; Prior surgery; Surgery date: 3-7 days post-operative; Surgery type: Lt humerus; Additional info: Edema L arm post surgery TECHNIQUE: Imaging protocol: Radiologic exam of the left humerus. Views: 2 or more views. COMPARISON: [place] [id number] 06/20/2025 9:21 AM FINDINGS: Bones/joints: Status post ORIF of distal humeral fracture. Hardware appears intact. Alignment is anatomic. Chronic appearing proximal humeral fracture is stable. Soft tissues: Diffuse soft tissue swelling. XR/[place] [id number] IMPRESSION: 1. Status post ORIF of distal humeral fracture with intact hardware. 2. Soft tissue swelling.
[2025-06-28] VITALS (23 sets, daily range): BP systolic 83–142; BP diastolic 42–83; PULSE 75–96; RESP 12–25; TEMP 36–36.7; O2SAT 93–99
[2025-06-28] MEDS: pantoprazole 40 mg SDV IVP ×2 (01:25→15:51)
[2025-06-28 05:02] LABS: Hematocrit 23.7 % (36-47); Hemoglobin 7.50 g/dL (11.27-16.99); Mean Corpuscular HGB Conc 31.6 g/dL (30-55); Mean Corpuscular Hemoglobin 29.1 pg (27-33); Mean Corpuscular Volume 91.9 fl (85-98); Nucleated Red Blood Cells % 0 %; Platelet Count 207 10^3/cmm (157-399); Red Blood Count 2.58 10^6/uL (3.85-5.65); White Blood Count 5.35 10^3/uL (3.29-11.43)
[2025-06-28 05:21] LABS: Magnesium 2.0 mg/dL (1.7-2.3)
[2025-06-28 05:26] LABS: Alanine Aminotransferase 11 U/L (0-33); Albumin Level 3.3 g/dL (3.5-5.2); Alkaline Phosphatase 115 U/L (35-105); Anion Gap 14.9 (5-19); Aspartate Amino Transferase 11 U/L (0-32); Blood Urea Nitrogen 28 mg/dL (8-23); Calcium 6.8 mg/dL (8.5-10.5); Carbon Dioxide 24 mmol/L (22-29); Chloride 98 mmol/L (98-107); Creatinine Clr Calc Pharmacy 10.5745; Globulin 2.2 g/dL (1.3-4.6); Glucose 79 mg/dL (65-115); Osmolality Calculated 280 mOsm/kg (285-295); Potassium 3.9 mmol/L (3.5-5.1); Sodium 133 mmol/L (136-145); Total Protein 5.5 g/dL (6.6-8.7)
--- NOTE | 2025-06-28 08:53 | PC.HD ---
Due to patient's hx of low BPs during HD, patient received Midodrine 10 mg PO prior to treatment initiation. Also, dialysate temperature lowered to 35.0C per hypotension dialysis orders, and albumin 25% prn was initiated at treatment start. BP currently 110/78; continue to monitor closely.
--- NOTE | 2025-06-28 08:59 | PC.SLP ---
Attempted speech therapy-pt not in room-nursing said in dialysis
--- NOTE | 2025-06-28 10:02 | P.PN_ITS ---
Subjective 2 Subjective: getting HD Medications: Reviewed: Yes Vitals/I&O/Wt Last Vital Signs Temp 96.8 F L 06/28/25 08:49 Pulse 80 06/28/25 08:49 Resp 16 06/28/25 08:49 BP 125/64 06/28/25 08:49 Pulse Ox 95 06/28/25 08:10 O2 Del Method Room Air 06/28/25 08:10 O2 Flow Rate 1 06/26/25 16:30 06/27/25 06/28/25 06/28/25 22:59 06:59 14:59 Intake Total 610 / 970 120 / 1090 290 / 290 Output Total 0 / 0 500 / 500 Balance 610 / 970 -380 / 590 290 / 290 Weight last 48 hrs Weight 70.874 kg Weight 67.132 kg Weight 71.8 kg Physical Exam 2 Narrative: , no distress , on 1L NC no jvd peerla S1S2 RRR Lungs + crackles Abd soft , non tender no edema Urinary Catheter Management: Spears: Cath Placed During This Visit: yes, but has since been removed by the nurse Reason for Continuing Indwelling Catheter: Decision to DC Catheter Date Urinary Catheter Removed: 06/26/25 Time Urinary Catheter Discontinued: 10:50 Data 06/28/25 04:16 06/28/25 04:16 Micro: Microbiology 06/26/25 12:24 Blood Culture - Preliminary Blood NEGATIVE TO DATE 06/26/25 12:27 Blood Culture - Preliminary Blood NEGATIVE TO DATE A&P Assessment and plan 1. End stage renal disease: Plan: 1. End-stage renal disease: HD today 2. Shock, off pressors 3. Status post ORIF of humerus fracture 4. Encephalopathy, metabolic 5. Anemia due to blood loss, status posttransfusions 6. Urinary tract infection, 7. Hyponatremia, monitoring closely, Patient evaluated using audiovisual cart. Time spent 40 minutes PDMP PDMP Reviewed: Not Reviewed Attestations 2 Medical Necessity Statement*: per medicine Coding Level of Care Code Acute Code for [facility] Diagnoses End stage renal disease N18.6
[2025-06-28 10:31] LABS: Hematocrit 23.3 % (36-47); Hemoglobin 7.40 g/dL (11.27-16.99)
--- NOTE | 2025-06-28 11:17 | PC.HD ---
During second hour of HD, patient's BP continued to drop despite several interventions. Contacted Dr. Arredondo, who advised to terminate treatment. Treatment terminated approximately 55 minutes early. After rinseback, BP improed to 118/83. Patient remained asymptomatic throughout. Net fluid removal 1319 mL.
--- NOTE | 2025-06-28 11:31 | PC.SOCIAL ---
IMM Updated Updated pt on IMM. No questions voiced. Provided pt a copy. Initialed, dated, & timed copy in chart.
--- NOTE | 2025-06-28 11:51 | PM.PN ---
Subjective Subjective: Patient's pain is controlled. Was supposed start bleeding yesterday. In the middle the wound otherwise everything looks okay. Vitals/I&O/Wt Last Vital Signs Temp 97.7 F 06/28/25 11:22 Pulse 75 06/28/25 11:22 Resp 18 06/28/25 11:22 BP 118/83 06/28/25 11:22 Pulse Ox 96 06/28/25 11:22 O2 Del Method Room Air 06/28/25 11:22 O2 Flow Rate 1 06/26/25 16:30 06/27/25 06/28/25 06/28/25 22:59 06:59 14:59 Intake Total 610 / 970 120 / 1090 690 / 690 Output Total 0 / 0 500 / 500 1719 / 1719 Balance 610 / 970 -380 / 590 -1029 / -1029 Weight last 48 hrs Weight 154 lb 1.65 oz Weight 156 lb 4 oz Weight 148 lb Weight 158 lb 4.67 oz Physical Exam Narrative: Laying in middle the wound. Put a pressure dressing on. Urinary Catheter Management: Spears: Cath Placed During This Visit: yes, but has since been removed by the nurse Reason for Continuing Indwelling Catheter: Decision to DC Catheter Date Urinary Catheter Removed: 06/26/25 Time Urinary Catheter Discontinued: 10:50 Data 06/28/25 10:18 06/28/25 04:16 Micro: Microbiology 06/26/25 12:24 Blood Culture - Preliminary Blood NEGATIVE TO DATE 06/26/25 12:27 Blood Culture - Preliminary Blood NEGATIVE TO DATE A&P Assessment and plan 1. Humerus fracture: Postop day #5 left humerus fracture PDMP PDMP Reviewed: Not Reviewed Attestations Medical Necessity Statement*: Pain control Coding Level of Care Code Acute Code for [facility] Fwd Diagnoses Humerus fracture S42.309A
--- NOTE | 2025-06-28 12:01 | P.PN_ITS ---
<Statement entered by Gilbert Bass M.D - 06/29/25 11:05> Patient was cared for in conjunction with an advanced practice practitioner.? I reviewed the chart and all pertinent data including imaging, telemetry, and laboratory results.? I discussed the patient in detail with the advanced practice practitioner.? Please see?their note for progress note, testing results and agreed upon plan of care for the patient. Subjective 2 Subjective: She is receiving dialysis at the time of my exam. Noted bleeding from the surgical site on the left arm, it has been persistent since yesterday. No chest pain or worsening shortness of breath. Vitals/I&O/Wt Last Vital Signs Temp 97.7 F 06/28/25 11:22 Pulse 75 06/28/25 11:22 Resp 18 06/28/25 11:22 BP 118/83 06/28/25 11:22 Pulse Ox 96 06/28/25 11:22 O2 Del Method Room Air 06/28/25 11:22 O2 Flow Rate 1 06/26/25 16:30 06/27/25 06/28/25 06/28/25 22:59 06:59 14:59 Intake Total 610 / 1090 120 / 1090 690 / 690 Output Total 0 / 500 500 / 500 1719 / 1719 Balance 610 / 590 -380 / 590 -1029 / -1029 Weight last 48 hrs Weight 154 lb 1.65 oz Weight 156 lb 4 oz Weight 148 lb Weight 158 lb 4.67 oz Physical Exam 2 Const: COMMON NORMALS: no acute distress and patient oriented x3 Chest: COMMONS NORMALS: normal inspection of the chest and normal palpation of entire chest wall CHEST: Yes Symmetrical chest wall rise Resp: COMMON NORMALS: normal respiratory effort, No retractions, No use of accessory muscles and clear to auscultation bilaterally EFFORT & INSPECTION: Yes symmetric chest movement AUSCULTATION: clear to auscultation bilaterally Cardio: COMMON NORMALS: S1 normal heart sound present, S2 normal heart sound present, No gallops present (Cardio), No clicks present (Cardio), No murmurs present (Cardio) and No rub (Cardio) RHYTHM: abnormal rhythm irregularly irregular HEART SOUNDS: S1 normal heart sound present and S2 normal heart sound present PERIPHERAL PULSES: radial pulses present, posterior tibial pulses present and dorsalis pedis present Neuro: COMMON NORMALS: patient oriented x3 and moves all extremities Psych: COMMON NORMALS: mental status grossly normal and cooperative Urinary Catheter Management: Spears: Cath Placed During This Visit: yes, but has since been removed by the nurse Reason for Continuing Indwelling Catheter: Decision to DC Catheter Date Urinary Catheter Removed: 06/26/25 Time Urinary Catheter Discontinued: 10:50 Data 06/28/25 10:18 06/28/25 04:16 Micro: Microbiology 06/26/25 12:24 Blood Culture - Preliminary Blood NEGATIVE TO DATE 06/26/25 12:27 Blood Culture - Preliminary Blood NEGATIVE TO DATE A&P Assessment and plan 1. Persistent atrial fibrillation: 2. Acute HFrEF (heart failure with reduced ejection fraction): 3. Postoperative state: 4. NSTEMI (non-ST elevated myocardial infarction): 5. End stage renal disease: 6. Acute on chronic anemia: Plan: She already received aspirin today, can hold from tomorrow. We had planned coronary angiogram for further evaluation however due to bleeding we will change to Lexiscan stress test in the morning. Continue midodrine, atorvastatin. Blood pressures remain soft. She appears near euvolemic. PDMP PDMP Reviewed: Not Reviewed Attestations 2 Medical Necessity Statement*: Ischemic workup systolic CHF Coding Level of Care Code Acute Code for [facility] Diagnoses Persistent atrial fibrillation I48.19 Acute HFrEF (heart failure with reduced ejection fraction) I50.21 Postoperative state Z98.890 NSTEMI (non-ST elevated myocardial infarction) I21.4 End stage renal disease N18.6 Acute on chronic anemia D64.9
--- NOTE | 2025-06-28 14:05 | CTR_ITS ---
PROCEDURE INFORMATION: Exam: CTA Left Upper Extremity With Contrast Exam date and time: 06/28/2025 2:49 PM Age: 75 years old Clinical indication: Swelling; Arm, upper; Prior surgery; Surgery date: 3-7 days post-operative; Surgery type: Left humerus; Additional info: Evaluate for active extravasation, post op bleeding left humerus, assess for active TECHNIQUE: Imaging protocol: Computed tomographic angiography of the left upper extremity with contrast, including non-contrast images if performed. 3D rendering (Not supervised by radiologist): MIP and/or 3D reconstructed images were created by the technologist. Radiation optimization: All CT scans at this facility use at least one of these dose optimization techniques: automated exposure control; mA and/or kV adjustment per patient size (includes targeted exams where dose is matched to clinical indication); or iterative reconstruction. Contrast material: OMNI 350; Contrast volume: 100 ml; Contrast route: INTRAVENOUS (IV); COMPARISON: NM bone scan whole body* [id number] 01/14/2019 11:01 AM RADIATION DOSE METRICS: Total DLP (mGy-cm): 1166.51 FINDINGS: Tubes, catheters and devices: Left internal jugular central line and left chest port line are partially imaged, extending into the left brachiocephalic vein. Left subclavian artery: There is moderate calcific plaque with less than 50% stenosis of the left subclavian artery origin. Axillary artery: The axillary artery is normal. Brachial artery: The brachial artery is normal. Radial artery: The visible portion is normal. Ulnar artery: The visible portion is normal. Lungs: There is compressive atelectasis in the left lower lobe. Pleural spaces: Moderate simple dependent left pleural effusion. Bones/joints: Glenohumeral and acromioclavicular alignment are normal. There is intact plate and screw fixation of the distal humerus. The elbow is grossly unremarkable but partially imaged. There is a healed fracture of the humeral neck. There is marked irregularity of the posterosuperior humeral head suggesting sequelae of avascular necrosis and subchondral collapse or deep impaction fracture. Soft tissues: There is diffuse subcutaneous edema in the left chest wall and upper arm. There is an irregular intramuscular hematoma in the posterior upper arm (triceps) measuring 3.2 x 1.9 cm, with a punctate focus of high density visible on series 7, image 65. An additional focus of high density is seen more inferiorly on series 7, image 96. Possible active bleeding. [place] [id number] IMPRESSION: 1. 3.1 cm hematoma along the posterior margin of the triceps muscle with adjacent foci of high density suggesting active bleeding. 2. No major vascular injury is visible. 3. Chronic humeral neck fracture. Chronic Hill-Sachs fracture versus avascular necrosis and subchondral collapse of the humeral head. 4. Diffuse nonspecific subcutaneous edema in the left chest wall and upper arm. 5. Moderate simple dependent left pleural effusion.
--- NOTE | 2025-06-28 14:07 | P.PN_ITS ---
Subjective 2 Subjective: Patient seen on dialysis unit today. She has had bleeding from her left arm surgical site since this morning. Multiple dressings have been changed. Pressure dressing is currently on. Hemoglobin at 7.4, stable over past 2 days. Medications: Reviewed: Yes Vitals/I&O/Wt Last Vital Signs Temp 97.9 F 06/28/25 14:00 Pulse 90 06/28/25 14:00 Resp 16 06/28/25 14:00 BP 118/83 06/28/25 11:22 Pulse Ox 95 06/28/25 14:00 O2 Del Method Room Air 06/28/25 11:22 O2 Flow Rate 1 06/26/25 16:30 06/27/25 06/28/25 06/28/25 22:59 06:59 14:59 Intake Total 610 / 970 120 / 1090 1000.688 / 1000.688 Output Total 0 / 0 500 / 500 1719 / 1719 Balance 610 / 970 -380 / 590 -718.312 / -718.312 Weight last 48 hrs Weight 69.9 kg Weight 70.874 kg Weight 67.132 kg Weight 71.8 kg Physical Exam 2 Narrative: General: No acute distress, chronically ill-appearing HEENT: PERRLA, pupils bilaterally equal and reactive, pallors not present Chest: Normal vesicular breath sounds, no added sounds, equal good air entry bilaterally CVS: S1-S2 regular, no murmurs, no tachycardia, no gallops, no rubs Abdomen: Soft, nontender, no organomegaly, bowel sounds present Neuro: No focal deficits, no facial deformity, AO x3, power 5/5 in all limbs Urinary Catheter Management: Spears: Cath Placed During This Visit: yes, but has since been removed by the nurse Reason for Continuing Indwelling Catheter: Decision to DC Catheter Date Urinary Catheter Removed: 06/26/25 Time Urinary Catheter Discontinued: 10:50 Data 06/28/25 10:18 06/28/25 04:16 Micro: Microbiology 06/26/25 12:24 Blood Culture - Preliminary Blood NEGATIVE TO DATE 06/26/25 12:27 Blood Culture - Preliminary Blood NEGATIVE TO DATE A&P Assessment and plan 1. Postoperative state: 2. Status post open reduction and internal fixation (ORIF) of fracture: 3. Postoperative anemia: 4. Septic shock: 5. Uncontrolled type 2 diabetes mellitus with hyperglycemia: 6. Hypothyroidism, unspecified type: 7. Lower GI bleed requiring more than 4 units of blood in 24 hours, ICU, or surgery: 8. End stage renal disease: 9. Anemia: 10. Acute encephalopathy: 11. NSTEMI (non-ST elevated myocardial infarction): Plan: Acute encephalopathy, resolving -likely secondary to hypotension - Likely secondary metabolic acidosis - Likely secondary to hyponatremia - Likely secondary to UTI - Opponent acute on chronic anemia - Neurochecks - NIH stroke scale -aspiration precautions Multifactorial shock -Acute anemia -Possible component of cardiogenic shock? EF 45%, echocardiogram findings as below -Septic shock secondary to urinary tract infection - Maintain MAP more than 65, currently on 8 of Levophed - Status post sepsis bolus - Status post albumin - Continue vancomycin - Continue Zosyn - Follow blood cultures - Follow urine culture NSTEMI - No chest pain complaints - Type I versus type II NSTEMI -Does have septic shock secondary to UTI, acute anemia, is on Levophed, has end- stage renal disease on dialysis, fluid overload, bilateral pleural effusions CONCLUSIONS 1. Normal LV size. Mildly reduced left ventricular systolic function with severe hypokinesis of the septum and inferior maldonado. Overall ejection fraction 45%. 2. Moderately dilated right ventricle. Mildly reduced right ventricular systolic function 3. Moderate left atrial enlargement 4. Indeterminate left ventricular diastolic function due to severe mitral annular calcification 5. Moderate to severe pulmonary hypertension, PASP 64 mmHg 6. Moderate mitral valve regurgitation. Mild mitral valve stenosis 7. Moderate to severe tricuspid valve regurgitation 8. Compared to echocardiogram on 03/07/2022, the left ventricular systolic function has mildly decreased and the pulmonary hypertension has mildly increased. - History of GI bleed requiring transfer to tertiary level center with IR embolization according to patient - History of acute anemia during this hospitalization now requiring 3 units of blood Plan - After discussing the risk and benefits of anticoagulant therapy, patient has declined anticoagulant therapy - Continue aspirin 81 - Continue statin - Cardiology consulted - She will likely require stress testing versus angiographically at some point once clinically stable - Monitor clinical status closely - Cardiology consulted Fluid overload, pulmonary edema -Bilateral pleural effusion, moderate left-sided pleural effusion -Has end-stage renal disease on dialysis does not urinate much - Plan on CRRT - Will consider Lasix depending on blood pressures this afternoon Acute on chronic anemia with postoperative anemia - Hemoglobin 7.9, EBL 500, -Status post 2 units PRBC -Will give another unit PRBC today - Protonix, Carafate End-stage renal disease, right AV fistula in place, plans on assess catheter placement for CRRT Left upper extremity, left humerus fracture -Open reduction internal fixation of left humerus Hypocalcemia, monitor - Calcium 6.6, corrected calcium 7.1 -pth, vitamin d, ionized calcium Hyponatremia, monitor serum sodium CRRT today NSTEMI, serial EKGs, serial troponins, telemetry monitoring, as above History of GI bleed, as above Type 2 diabetes mellitus, low-dose insulin scale Right basilar pleural base lesion 1. Right basilar pleural-based lesion measuring 1.2 x 2.2 cm. PET-CT scan for further evaluation to exclude neoplasm is advised. 2. Mediastinal adenopathy. PET-CT scan for further evaluation is advised. With calcified pleural plaques in the right chest posteriorly Plan - Will need to follow-up with oncology as outpatient Possible liver cirrhosis?, Will have to follow-up with GI as outpatient June 26, 2025 Chart reviewed in detail. Patient with chronic comorbidities including ESRD on hemodialysis, hypothyroidism, diabetes mellitus, chronic anemia, history of GI bleed, hypertension, hyperlipidemia, admitted to the hospital on June 23, 2025 for planned open reduction internal fixation of a left humerus fracture. Postoperative course was notable for hypotension, altered mental status manifested as encephalopathy.. She received fluid boluses and was moved to the ICU. She has remained on Levophed, currently at 2 mics. Concern for postoperative weight loss for which patient received blood transfusion. Left IJ central line was placed in addition to having a port on the same side before due to need for multiple medications at the same time. There was no evidence of acute stroke. Patient was on CRRT as unable to tolerate hemodialysis with low blood pressure. Today patient appears to be improved. She is alert awake and oriented x 3. Levophed requirement is down at 2 mics. Plan is to resume hemodialysis today. Will add midodrine 10 mg 3 times daily to allow room on the blood pressure to be able to tolerate dialysis. Remove Spears catheter as strict output monitoring is not currently indicated in a patient on hemodialysis. CT of the chest abdomen and pelvis completed on 06/24/2025 showed a right basilar pleural-based region measuring 1.2 x 2.2 cm concerning for neoplasm. This appears to be an incidental finding. There was also mediastinal adenopathy. PET scan is recommended as an outpatient to further characterize. Liver cirrhosis was suspected based on irregular border and heterogeneous appearance of the liver. No other acute blood loss or infectious signs were found in the chest or abdomen. Urine analysis showed multiple urine WBCs, 4+ bacteria, 3+ leukocyte esterase, negative nitrate. Possibility of UTI considered, however urine culture has only showed mixed urogenital swetha on day 2 so far. She is on empiric meropenem and vancomycin at this time. Blood culture from 06/24 was reported positive for GPC's in clusters 1 out of 3 bottles. She is on empiric vancomycin. Currently awaiting identification of these GPC's. With the port in place certainly concerned that patient could have a staphylococcal infection. Will obtain repeat blood cultures today, 1 set from periphery and 1 set from the port. Patient denies any past history of port infection. Echocardiogram from 06/24/2025 showed a mildly reduced LVEF of 45% and severe hypokinesia of the septum and inferior maldonado. Right ventricle was moderately dilated. There was moderate to severe pulmonary hypertension with a PASP of 64 mmHg. There was moderate to severe tricuspid valve regurgitation as well. No gross vegetations were noted on TTE. Compared to 2021 hypokinesia was noted back then however the EF did drop from 55% previously. Cardiology service was consulted yesterday due to elevated troponins 105-->155--> 179 with delta of 50 and 74. She denied any chest pain. This was thought to be related to type II NSTEMI due to hypotension and anemia. Though there is a high risk of underlying CAD, angiogram has been deferred for now given that patient has a history of GI bleed and is not a good candidate currently to be on DAPT. This may need to be reassessed as an outpatient. Medical management with aspirin, atorvastatin and addition of beta- jose recommended once off pressors. Patient has also been noted to be having persistent A-fib. This is not a known history for patient. She will not be on anticoagulation candidate given history of severe GI bleed in 2021. May need to consider outpatient Watchman device. Currently A-fib is rate controlled. 06/27/25: clinically improving. BP mainained with midodrine 10mg TID , off levophed. Temp HD cath removed. Blood cx with staph epidermidis, likely contaminant. Plan to d/c vanc if port cx negative by tomorrow. working with PT, OT. encourage ambulation June 28, 2025 Patient noted to be bleeding from the left arm, currently has a pressure dressing in place. Hemoglobin at 7.4. In patient with recent type II NSTEMI, will aim to keep hemoglobin close to 8. Ordered for 1 unit blood transfusion today. Serial H&H monitoring to be resumed today. CTA of the left arm has been ordered to evaluate for active extravasation which may need intervention. Will follow-up with results of CTA. Patient is receiving currently heparin at the time of dialysis. Aspirin 81 mg is currently on board for NSTEMI versus type II [place]. Will obtain stress test tomorrow, if stress test is normal will aim to discontinue aspirin to minimize risk of rebleeding. PDMP PDMP Reviewed: Not Reviewed Attestations 2 Medical Necessity Statement*: Per admitting Coding Level of Care Code Acute Code for [facility] Diagnoses Postoperative state Z98.890 Status post open reduction and internal fixation (ORIF) of fracture Z98.890; Z87.81 Postoperative anemia D64.9 Septic shock A41.9; R65.21 Uncontrolled type 2 diabetes mellitus with hyperglycemia Hypothyroidism, unspecified type E03.9 Lower GI bleed requiring more than 4 units of blood in 24 hours, ICU, or surgery K92.2 End stage renal disease N18.6 Anemia D64.9 Acute encephalopathy G93.40 NSTEMI (non-ST elevated myocardial infarction) I21.4
[2025-06-28] MEDS: iohexol 350 mg/mL 500 mL Btl (per mL) IV (15:12)
[2025-06-28 16:25] LABS: Hematocrit 25.0 % (36-47); Hemoglobin 8.00 g/dL (11.27-16.99)
--- NOTE | 2025-06-28 16:26 | P.PN_ITS ---
Subjective 2 Subjective: Patient is actively bleeding at this point she is requiring blood transfusion will plan to take her to surgery emergently Vitals/I&O/Wt Last Vital Signs Temp 98.0 F 06/28/25 14:15 Pulse 86 06/28/25 14:15 Resp 16 06/28/25 14:15 BP 118/83 06/28/25 11:22 Pulse Ox 95 06/28/25 14:15 O2 Del Method Room Air 06/28/25 11:22 O2 Flow Rate 1 06/26/25 16:30 06/28/25 06/28/25 06/28/25 06:59 14:59 22:59 Intake Total 120 / 1090 1000.688 / 1000.688 Output Total 500 / 500 1719 / 1719 Balance -380 / 590 -718.312 / -718.312 Weight last 48 hrs Weight 154 lb 1.65 oz Weight 156 lb 4 oz Weight 148 lb Physical Exam 2 Narrative: Patient had multiple dressing changes today due to bleeding. Urinary Catheter Management: Spears: Cath Placed During This Visit: yes, but has since been removed by the nurse Reason for Continuing Indwelling Catheter: Decision to DC Catheter Date Urinary Catheter Removed: 06/26/25 Time Urinary Catheter Discontinued: 10:50 Data 06/28/25 15:50 06/28/25 04:16 Micro: Microbiology 06/26/25 12:24 Blood Culture - Preliminary Blood NEGATIVE TO DATE 06/26/25 12:27 Blood Culture - Preliminary Blood NEGATIVE TO DATE A&P Assessment and plan 1. Humerus fracture: Taking patient to surgery emergently. PDMP PDMP Reviewed: Not Reviewed Attestations 2 Medical Necessity Statement*: Actively bleeding Coding Level of Care Code Acute Code for [facility] Fwd Diagnoses Humerus fracture S42.309A Encounter type: subsequent encounter
--- NOTE | 2025-06-28 16:36 | ANES.PREANE2 ---
Pre-Anesthetic Assessment Height/Weight: Height 1.6 m Weight 69.9 kg Temp Pulse Resp BP Pulse Ox O2 Del Method O2 Flow Rate 98.0 F 81 16 107/55 95 Room Air 1 06/28/25 14:15 06/28/25 16:20 06/28/25 14:15 06/28/25 16:20 06/28/25 14:15 06/28/25 11:22 06/26/25 16:30 Preop Diagnosis: Left humerus fracture Operation Date: 06/23/25 07:00 Proposed Procedures p ORIF humerus shaft fracture(Left) - Juan Ramon H Maisha, DO Operation Date: 06/28/25 17:00 Proposed Procedures p Wound Exploration(Left) - Juan Ramon H Maisha, DO Familial anesthetic complications: none Last intake: Intake Apple slices and cauliflower at noon - discussed waiting at least 6 hrs with surgeon to allow for 6-hr NPO interval, Surgeon is calling the case Emergency and states case unable to wait 6 hrs. Will RSI patient Last Liquid Date 06/22/25 Last Liquid Time 22:00 Last Solid Date 06/22/25 Last Solid Time 12:00 Exam alert, oriented x 3, clear to auscultation bilaterally and regular rate & rhythm CV/HEM Congestive Heart Failure and Myocardial Infarction Chronic Renal Insufficiency Patient has AV fistula R arm, Hospitalists have informed me we cannot cannulate the R radial A line d/t fistua Metabolic Diabetes Mellitus Anesthetic Plan ASA status: 4E Anesthesia: General Other: Will attempt A line in L radial, but may have to wait until case finishes d/t same side surgical site and sterility. No femoral A line kits are in hospital right now. Risk of > 500 ml blood loss (7ml/kg in children): No Medications/Allergies Home Medications ?Medication ?Instructions ?Recorded ?Confirmed ?Last Taken ?Type amitriptyline 100 mg tablet 100 mg PO BEDTIME 10/02/20 06/23/25 06/22/25 History tamsulosin 0.4 mg capsule 0.4 mg PO QAM 07/18/22 06/23/25 06/22/25 History flash glucose scanning reader #1 ea 12/15/22 06/24/25 04/30/23 Rx (FreeStyle Anita 2 [place]) flash glucose sensor (FreeStyle #3 ea 12/15/22 06/24/25 04/30/23 Rx Anita 2 Sensor kit) carvedilol 12.5 mg tablet 12.5 mg PO EVERY OTHER DAY 02/27/23 06/23/25 06/23/25 History ropinirole 1 mg tablet 1 mg PO BEDTIME 02/27/23 06/23/25 06/22/25 History vit B,C-folic ac 800 mcg-zinc 12.5 1 tab PO QAM 02/27/23 06/23/25 06/22/25 History mg-selen-D3 2,000 unit-vit E tablet (RenaPlex-D) wheel chair #1 ea 04/30/23 06/24/25 04/30/23 Rx folic acid 0.8 mg-vit B comp with 1 tab PO QAM 08/29/23 06/23/25 06/22/25 History J-noou-pawhunr D3 2,000 unit tablet (Dialyvite 800-Ultra D) semaglutide 2 mg/dose (8 mg/3 mL) 2 mg (0.75 mL) SUBCUT Q7D #9 mL 09/16/23 06/23/25 06/16/25 Rx subcutaneous pen injector (Ozempic) denosumab 60 mg/mL subcutaneous 60 mg SUBCUT .b9qmhdbw #1 mL 06/11/24 06/23/25 06/15/25 Rx syringe (Prolia) ferric citrate 210 mg iron tablet 1 tab PO TID 12/27/24 06/23/25 06/21/25 History (Auryxia) furosemide 80 mg tablet 80 mg PO BID 12/27/24 06/23/25 06/22/25 History gabapentin 100 mg capsule 100 mg PO BEDTIME 12/27/24 06/23/25 06/22/25 History losartan 25 mg tablet 25 mg PO DAILY 12/27/24 06/23/25 12/26/24 History levothyroxine 25 mcg tablet 25 mcg PO DAILY #90 tabs 06/09/25 06/23/25 06/22/25 Rx (Synthroid) levothyroxine 200 mcg tablet 200 mcg PO DAILY 06/22/25 06/23/25 06/22/25 History Allergies Allergy/AdvReac Type Severity Reaction Status Date / Time Penicillins Allergy Mild ALGY-Rash Verified 06/22/25 11:43 propoxyphene (From Darvon) Allergy Mild ALGY-Rash Verified 06/22/25 11:43 codeine Allergy ALGY-Rash Verified 06/22/25 11:43 Current Medications Generic Name Dose Route Start Last Admin Trade Name Freq PRN Reason Stop Dose Admin Hydrocodone Bitart/Acetaminophen 1 - 2 tab 06/23/25 09:25 06/26/25 10:09 Hydrocodone-Acetaminophen 5-325 Mg Tablet PO 2 tab Q4H PRN Administration BREAKTHROUGH PAIN Aspirin 81 mg 06/25/25 08:00 06/28/25 08:24 Aspirin 81 Mg Ec Tablet PO 81 mg Q24H NIKKY Administration Atorvastatin Calcium 40 mg 06/25/25 21:00 06/27/25 20:21 Atorvastatin 40 Mg Tablet PO 40 mg BEDTIME NIKKY Administration Gabapentin 100 mg 06/26/25 21:00 06/27/25 20:21 Gabapentin 100 Mg Capsule PO 100 mg BEDTIME NIKKY Administration Albumin Human 12.5 gm in 50 mls @ 60 mls/hr 06/28/25 06:57 06/28/25 12:58 Albumin IV Infused PRN PRN Infusion Hypotension and/or symptomatic Insulin Human Lispro 0 unit 06/23/25 12:00 06/28/25 12:57 Insulin Lispro 100 Unit/1 Ml SUBCUT Not Given WM&BEDTIME NIKKY Protocol Levothyroxine Sodium 200 mcg 06/24/25 09:00 06/28/25 08:24 Levothyroxine 200 Mcg Tablet PO 200 mcg DAILY NIKKY Administration Levothyroxine Sodium 25 mcg 06/24/25 09:00 06/28/25 08:24 Levothyroxine 25 Mcg Tablet PO 25 mcg DAILY NIKKY Administration Midodrine 10 mg 06/26/25 09:45 06/28/25 08:24 Midodrine 5 Mg Tablet PO 10 mg Q8H NIKKY Administration Ondansetron HCl 4 mg 06/23/25 09:25 06/26/25 22:15 Ondansetron 2 Mg/Ml Sdv 2 Ml IVP 4 mg Q4H PRN Administration NAUSEA AND VOMITING Pantoprazole Sodium 40 mg 06/23/25 14:41 06/28/25 15:51 Pantoprazole 40 Mg Sdv IVP 40 mg Q12H NIKKY Administration Sucralfate 1 gm 06/23/25 14:41 06/28/25 15:51 Sucralfate 1 Gm Tablet PO 1 gm Q6H NIKKY Administration Tamsulosin HCl 0.4 mg 06/24/25 06:00 06/28/25 05:00 Tamsulosin 0.4 Mg Capsule PO 0.4 mg QAM NIKKY Administration PFSH Anesthesia Medical History (Updated 06/28/25 @ 16:32 by Juan Ramon Ferrera DO) Lower GI bleed requiring more than 4 units of blood in 24 hours, ICU, or surgery (07/2022) Abdominal bloating SOB (shortness of breath) Spondylolisthesis at L4-L5 level Compression fracture of L4 vertebra Compression fracture of thoracic vertebra Cerebellar stroke syndrome Incomplete bladder emptying Hydronephrosis Ureteral obstruction, right HX OF RIGHT URETEROSCOPY WITH STENT PLACEMENT Obstructive pyelonephritis Kidney stones Hemodialysis patient Chronic kidney disease (CKD) Pleural effusion on right Microcytic anemia Type 2 diabetes mellitus Hx of breast cancer History of peritoneal dialysis HTN (hypertension) Hyperlipidemia Hypothyroidism Cataract Closed fracture of left proximal humerus Surgical History (Updated 06/25/25 @ 00:00 by ARMAAN Hernandez) History of cholecystectomy S/P hemodialysis catheter insertion Right IJ: Removed History of surgery Right-sided pleurodesis and Pleurx catheter placement S/P dialysis catheter insertion Peritoneal dialysis catheter placement x3 according to patient, revisions had to be performed in [facility] at an outside facility Hemodialysis catheter placement Hx of cataract surgery Hx of tonsillectomy H/O tubal ligation History of surgery on arm H/O skin graft History of lumpectomy of left breast H/O knee surgery History of kidney surgery Family History Mother Stroke Father Stroke Social History Smoking and tobacco/nicotine status: unknown if used tobacco/nicotine Alcohol intake: never Substance/Drug Use: never Lives independently: Yes Household members: spouse Marital status: Current occupational status: employed Do you think of yourself as: Straight/Heterosexual Current gender identity: Female Data Anesthesia 06/28/25 15:50 06/28/25 04:16 Short CBC 06/27/25 06/28/25 06/28/25 Range/Units 09:53 04:16 10:18 WBC 5.71 5.35 (3.29-11.43) 10^3/uL Hgb 7.20 L 7.50 L 7.40 L (11.27-16.99) g/dL Hct 22.2 L 23.7 L 23.3 L (36-47) % MCV 89.9 91.9 (85-98) fl Plt Count 175 207 (157-399) 10^3/cmm Neut % (Auto) 81.2 74.8 % Neut # (Auto) 4.64 4.00 (1.8-7.7) 10^3/uL 06/28/25 Range/Units 15:50 WBC (3.29-11.43) 10^3/uL Hgb 8.00 L (11.27-16.99) g/dL Hct 25.0 L (36-47) % MCV (85-98) fl Plt Count (157-399) 10^3/cmm Neut % (Auto) % Neut # (Auto) (1.8-7.7) 10^3/uL BMP 06/27/25 06/28/25 09:53 04:16 Sodium 134 L 133 L Potassium 3.7 3.9 Chloride 99 98 Carbon Dioxide 25 24 BUN 26 H 28 H Creatinine 3.3 H 4.1 H Glucose 115 79 Calcium 6.9 L 6.8 L Cardiac Enzymes 06/27/25 Range/Units 03:22 NT-Pro-B Natriuret Pep > 28999 H (0-450) pg/mL Liver Function 06/27/25 06/28/25 Range/Units 09:53 04:16 Total Bilirubin 0.8 0.9 (0.15-1.2) mg/dL AST 13 11 (0-32) U/L ALT 13 11 (0-33) U/L Alkaline Phosphatase 113 H 115 H (35-105) U/L Albumin 3.2 L 3.3 L (3.5-5.2) g/dL Blood Bank 06/23/25 06/28/25 Unknown 12:14 Blood Type A Positive A Positive Rho(D) Type Rh positive Rh positive Antibody Screen Negative Negative Coags 06/27/25 03:22 PT 16.90 H INR 1.29 H C-Reactive Protein 107.9 H Microbiology 06/26/25 12:24 Blood Culture - Preliminary Blood NEGATIVE TO DATE 06/26/25 12:27 Blood Culture - Preliminary Blood NEGATIVE TO DATE Cardiac Studies: Echocardiogram 06/24/25 Echocardiogram Ultrasound 09/28/20 Holter Monitor 09/10/20
--- NOTE | 2025-06-28 18:23 | PM.OP ---
Operative Report Date of procedure: June 28, 2025 Pre-op diagnosis: Active bleeding from her left humerus wound Post-op diagnosis: same Procedure done: 1. Exploration of left humerus wound 2. Coagulation of bleeding artery Surgeon: Juan Ramon Ferrera DO Estimated blood loss (mL): 50 Procedure: 1. Exploration of left humerus wound(wound was 12 inches long.) 2. Coagulation of bleeding artery Patient is brought to the operative suite after undergoing anesthesia was placed in the lateral decubitus position. All areas impingement well-padded. Patient's prepped draped in Roso fashion. The skin incision was opened. Once skin incision was opened there was an active bleed in the subcutaneous tissue that was around near the wound was draining. And there was a hematoma at this location as well. I placed this is more likely source of the bleeding then the more superior vessels that were possible on the angiogram. However I did go up and explore in the tricep of the arteries surrounding the radial nerve. Tissues around this were all coagulated with the aqua mantis. I also placed Surgiflo in this area as well as put it in on the tissues of the tricep. We waited to see if any bleeding occurred there was absolutely no bleeding and then the wound was closed in a layered fashion with 0 Vicryl, 2-0 Vicryl and 3-0 nylon suture. Sterile dressings were applied and patient was transferred to the PACU in stable condition.
--- NOTE | 2025-06-28 19:15 | ANE.PACU2 ---
Inpatient post-anesthesia follow up: Airway intact: Yes Vital signs: Temperature 98.5 F Pulse Rate 84 Respiratory Rate 17 Blood Pressure 102/41 Pulse Oximetry 92 Oxygen Delivery Me thod Room Air Oxygen Flow Rate 0.5 Fraction of Inspir ed Oxygen Hydration adequate: Yes Nausea and vomiting: No Pain level: 1 Mental status: Baseline
[2025-06-28] MEDS: HYDROcodone-acetaminophen 5-325 mg Tablet PO (20:19)
[2025-06-28 22:14] LABS: Hematocrit 27.8 % (36-47); Hemoglobin 8.90 g/dL (11.27-16.99)
[2025-06-29] VITALS (49 sets, daily range): BP systolic 60–168; BP diastolic 22–98; PULSE 0–94; RESP 0–22; TEMP 36.1–36.7; O2SAT 81–100
[2025-06-29] MEDS: pantoprazole 40 mg SDV IVP (02:39)
[2025-06-29 04:54] LABS: Hematocrit 27.5 % (36-47); Hemoglobin 8.80 g/dL (11.27-16.99); Mean Corpuscular HGB Conc 32.0 g/dL (30-55); Mean Corpuscular Hemoglobin 28.9 pg (27-33); Mean Corpuscular Volume 90.2 fl (85-98); Nucleated Red Blood Cells % 0.6 %; Platelet Count 219 10^3/cmm (157-399); Red Blood Count 3.05 10^6/uL (3.85-5.65); White Blood Count 6.20 10^3/uL (3.29-11.43)
[2025-06-29 05:11] LABS: Alanine Aminotransferase 11 U/L (0-33); Albumin Level 3.4 g/dL (3.5-5.2); Alkaline Phosphatase 111 U/L (35-105); Anion Gap 15.8 (5-19); Aspartate Amino Transferase 17 U/L (0-32); Blood Urea Nitrogen 23 mg/dL (8-23); Calcium 7.0 mg/dL (8.5-10.5); Carbon Dioxide 23 mmol/L (22-29); Chloride 98 mmol/L (98-107); Creatinine Clr Calc Pharmacy 13.3875; Globulin 2.5 g/dL (1.3-4.6); Glucose 166 mg/dL (65-115); Osmolality Calculated 283 mOsm/kg (285-295); Potassium 3.8 mmol/L (3.5-5.1); Sodium 133 mmol/L (136-145); Total Protein 5.9 g/dL (6.6-8.7)
[2025-06-29 05:14] LABS: Magnesium 2.0 mg/dL (1.7-2.3)
--- NOTE | 2025-06-29 05:42 | PC.NURSE ---
Pt scheduled for stress test this AM. Spoke with nuc med regarding access, stated they are unable to use central line or implanted port for injection of meds. Pt has hemodialyis fistula to right arm, cast covering left arm, and diabetic so unable to place peripheral IV. Also, for test patient ideally should be able to lift arms over head to allow for proper imaging of heart. Pt had surgical repair of bleed in left arm and would be contraindicated for her to lift it above her head for test. Discussed this with Dr. Arana, and he agreed to hold stress test until discussed with Dr. Mcgrath today.
[2025-06-29 08:35] LABS: Hematocrit 28.0 % (36-47); Hemoglobin 9.00 g/dL (11.27-16.99)
--- NOTE | 2025-06-29 11:22 | P.PN_ITS ---
Subjective 2 Subjective: Patient is postop day #1 for exploration of her wound and coagulating bleeding. Patient is doing well this morning no pain. Vitals/I&O/Wt Last Vital Signs Temp 97.4 F L 06/29/25 04:30 Pulse 81 06/29/25 11:00 Resp 14 06/29/25 11:00 BP 87/57 06/29/25 08:30 Pulse Ox 98 06/29/25 10:30 O2 Del Method Room Air 06/28/25 16:45 O2 Flow Rate 1 06/26/25 16:30 06/28/25 06/29/25 06/29/25 22:59 06:59 14:59 Intake Total 660 / 1660.688 60 / 1720.688 450 / 450 Output Total 50 / 1769 Balance 610 / -108.312 60 / -48.312 450 / 450 Weight last 48 hrs Weight 153 lb 3.54 oz Weight 154 lb 1.65 oz Weight 156 lb 4 oz Physical Exam 2 Narrative: Radial nerves intact fingers. Good cap refill Urinary Catheter Management: Spears: Cath Placed During This Visit: yes, but has since been removed by the nurse Reason for Continuing Indwelling Catheter: Decision to DC Catheter Date Urinary Catheter Removed: 06/26/25 Time Urinary Catheter Discontinued: 10:50 Data 06/29/25 08:25 06/29/25 03:20 A&P Assessment and plan 1. Humerus fracture: Patient postop day #1 exploration of wound and coagulation of bleeding Patient hemoglobin is stable Waiting hospitalist input to possibly discharge from the ICU. PDMP PDMP Reviewed: Not Reviewed Attestations 2 Medical Necessity Statement*: Anemia Coding Level of Care Code Acute Code for [facility] Fwd Diagnoses Humerus fracture S42.309A
--- NOTE | 2025-06-29 11:49 | P.PN_ITS ---
<Statement entered by Gilbert Bass M.D - 07/02/25 11:46> Patient was cared for in conjunction with an advanced practice practitioner.? I reviewed the chart and all pertinent data including imaging, telemetry, and laboratory results.? I discussed the patient in detail with the advanced practice practitioner.? Please see?their note for progress note, testing results and agreed upon plan of care for the patient. Subjective 2 Subjective: She was moved back to ICU, underwent surgery yesterday to coagulate an active bleed in the left arm incision. She was also transfused. Hemoglobin this morning 8.8. She has a large dressing in place on the left arm, unable to raise it above her head to perform a stress test currently. Vitals/I&O/Wt Last Vital Signs Temp 97.4 F L 06/29/25 04:30 Pulse 81 06/29/25 11:00 Resp 14 06/29/25 11:00 BP 87/57 06/29/25 08:30 Pulse Ox 98 06/29/25 10:30 O2 Del Method Room Air 06/28/25 16:45 O2 Flow Rate 1 06/26/25 16:30 06/28/25 06/29/25 06/29/25 22:59 06:59 14:59 Intake Total 660 / 1720.688 60 / 1720.688 450 / 450 Output Total 50 / 1769 Balance 610 / -48.312 60 / -48.312 450 / 450 Weight last 48 hrs Weight 153 lb 3.54 oz Weight 154 lb 1.65 oz Weight 156 lb 4 oz Physical Exam 2 Const: COMMON NORMALS: no acute distress and patient oriented x3 GENERAL APPEARANCE: cooperative and comfortable ORIENTATION/CONSCIOUSNESS: Yes awake, Yes oriented to person, Yes oriented to place and Yes oriented to time Chest: COMMONS NORMALS: normal inspection of the chest and normal palpation of entire chest wall CHEST: Yes Symmetrical chest wall rise Resp: COMMON NORMALS: normal respiratory effort, No retractions, No use of accessory muscles and clear to auscultation bilaterally EFFORT & INSPECTION: Yes symmetric chest movement AUSCULTATION: clear to auscultation bilaterally Cardio: COMMON NORMALS: regular rate, S1 normal heart sound present, S2 normal heart sound present, No gallops present (Cardio), No clicks present (Cardio), No murmurs present (Cardio) and No rub (Cardio) RATE: regular rate RHYTHM: a bnormal rhythm irregularly irregular HEART SOUNDS: S1 normal heart sound present and S2 normal heart sound present PERIPHERAL PULSES: radial pulses present Extremity: COMMON NORMALS: no pedal edema Neuro: COMMON NORMALS: patient oriented x3 and moves all extremities S ENSORIUM/ORIENTATION: Yes oriented to person, Yes oriented to place and Yes oriented to time Urinary Catheter Management: Spears: Cath Placed During This Visit: yes, but has since been removed by the nurse Reason for Continuing Indwelling Catheter: Decision to DC Catheter Date Urinary Catheter Removed: 06/26/25 Time Urinary Catheter Discontinued: 10:50 Data 06/29/25 08:25 06/29/25 03:20 A&P Assessment and plan 1. Persistent atrial fibrillation: 2. Acute HFrEF (heart failure with reduced ejection fraction): 3. Postoperative state: 4. NSTEMI (non-ST elevated myocardial infarction): 5. Diabetes mellitus: 6. End stage renal disease: 7. Acute on chronic anemia: Plan: Due to acute bleeding and surgery performed yesterday we will delay ischemic workup until she has recovered and bleeding is stabilized. Will still plan for stress test at some point. Continue to hold aspirin. Blood pressures stable on midodrine 10 mg 3 times daily. She does not appear volume overloaded and is comfortable. PDMP PDMP Reviewed: Not Reviewed Attestations 2 Medical Necessity Statement*: Ischemic workup for new onset LV dysfunction Coding Level of Care Code Acute Code for [facility] Fwd Diagnoses Persistent atrial fibrillation I48.19 Acute HFrEF (heart failure with reduced ejection fraction) I50.21 Postoperative state Z98.890 NSTEMI (non-ST elevated myocardial infarction) I21.4 Diabetes mellitus E11.9 End stage renal disease N18.6 Acute on chronic anemia D64.9
--- NOTE | 2025-06-29 13:14 | P.PN_ITS ---
Subjective 2 Subjective: status post OR intervention on 06/28/2025 to catch a bleeder in the left arm. Medications: Reviewed: Yes Vitals/I&O/Wt Last Vital Signs Temp 97 F L 06/29/25 14:51 Pulse 90 06/29/25 18:00 Resp 11 L 06/29/25 17:30 BP 113/22 06/29/25 17:00 Pulse Ox 90 06/29/25 17:30 O2 Del Method Room Air 06/29/25 14:51 O2 Flow Rate 1 06/26/25 16:30 06/29/25 06/29/25 06/30/25 14:59 22:59 06:59 Intake Total 650 / 650 250 / 900 Balance 650 / 650 250 / 900 Weight last 48 hrs Weight 69.5 kg Weight 69.9 kg Weight 70.874 kg Physical Exam 2 Narrative: General: No acute distress, AO x3 HEENT: PERRLA, pupils bilaterally equal and reactive, pallors not present Chest: Normal vesicular breath sounds, no added sounds, equal good air entry bilaterally CVS: S1-S2 regular, no murmurs, no tachycardia, no gallops, no rubs Abdomen: Soft, nontender, no organomegaly, bowel sounds present Neuro: No focal deficits, no facial deformity, AO x3, power 5/5 in all limbs Extremities: surgical dressing and cast over left arm Urinary Catheter Management: Spears: Cath Placed During This Visit: yes, but has since been removed by the nurse Reason for Continuing Indwelling Catheter: Decision to DC Catheter Date Urinary Catheter Removed: 06/26/25 Time Urinary Catheter Discontinued: 10:50 Data 06/30/25 03:39 06/30/25 03:39 Micro: Microbiology 06/24/25 15:25 Blood Culture - Final Blood NO GROWTH AFTER 5 DAYS 06/24/25 15:32 Blood Culture - Preliminary Blood Staphylococcus epidermidis Staphylococcus hominis NAME: María Saab Dieter LOC: ICU U #: [id number] AGE/SX: 75/F [place] [facility] [place]06/24/[address]: Juan Ramon Ferrera DO : 1950 BED: 1 D IS: 06/30/25 FAX #: STATUS: DIS IN TLOC: Spec #: [id number] Ramon: 06/24/25-1532 Status: RES Req #: [id number] Recd: 06/24/25-[address]: Cas Arana MD Src: Blood [facility]: Ordered: Bcult Comments: 1351 SUNNY Procedure Result Verified Site Blood Culture Preliminary 06/29/25-1418 1 OF 3 BOTTLES POSITIVE DIRECT GRAM STAIN: GRAM POSITIVE COCCI IN CLUSTERS. Detection of mecA indicates presence of Methicillin Resistant Staphylococcus spp. IDENTIFICATION BY DIRECT PCR RESULTS TO FOLLOW Organism 1 Staphylococcus epidermidis Growth 1 BOTTLE Organism 2 Staphylococcus hominis Gram Stain Charge Charge for Gram Stain CRITICAL RESULT YES/NO: YES CRITICAL CALLED BY: ESTHER TO AND READ BACK BY: ANNA DATE: 06/25/25 TIME: 2044 S hominis M.I.C. RX --------- ------ * Ciprofloxacin <=1 S * Clindamycin <=0.5 S * Erythromycin >4 R * Gentamicin <=4 S * Levofloxacin <=1 S * Linezolid 2 S * Moxifloxacin <=0.5 S * Oxacillin >2 R * Penicillin >8 R * Rifampin <=1 S * Tetracycline >8 R * Trimethoprim/Sulfamethoxazole >2/38 R Vancomycin 1 S Daptomycin <=0.5 S Blood Culture Preliminary (changed) 06/26/25-1347 1 OF 3 BOTTLES POSITIVE DIRECT GRAM STAIN: GRAM POSITIVE COCCI IN CLUSTERS. Detection of mecA indicates presence of Methicillin Resistant Staphylococcus spp. IDENTIFICATION BY DIRECT PCR RESULTS TO FOLLOW Organism 1 Staphylococcus epidermidis Growth 1 BOTTLE Gram Stain Charge Charge for Gram Stain CRITICAL RESULT YES/NO: YES CRITICAL CALLED BY: ESTHER TO AND READ BACK BY: ANNA DATE: 06/25/25 TIME: 2044 Blood Culture Preliminary (changed) 06/25/25-2048 GRAM STAIN: 1/3A BOTTLE: GRAM POSITIVE COCCI IN CLUSTERS. CALLED & READBACK BY: ANNA @[id number]/25/25.ESTHER Blood Culture Preliminary (changed) 06/25/25-1542 NEGATIVE TO DATE Blood Culture Preliminary (changed) 06/24/25-1549 SPECIMEN COLLECTED NAME: María Saab LOC: ICU U #: [id number] AGE/SX: 75/F ROOM: ICU08 R E06/24/[address]: Juan Ramon Ferrera DO : 1950 BED: 1 D IS: 06/30/25 FAX #: STATUS: DIS IN TLOC: Spec #: [id number] Ramon: 06/24/25 Status: COMP Req #: [id number] Recd: 06/24/[address]: aCs Arana MD Src: Blood SpDesc: Ordered: Bcult Comments: 1351 LAUPA Procedure Result Verified Site Blood Culture Final 06/29/25-1544 NO GROWTH AFTER 5 DAYS Blood Culture Preliminary (changed) 06/25/25-1544 NEGATIVE TO DATE Blood Culture Preliminary (changed) 06/24/25-1549 SPECIMEN COLLECTED NAME: María Saab LOC: ICU U #: [id number] AGE/SX: 75/F ROOM: ICU08 R E06/24/[address]: Juan Ramon Ferrera DO : 1950 BED: 1 D IS: 06/30/25 FAX #: STATUS: DIS IN TLOC: Spec #: [id number] Ramon: 06/26/257 Status: RES Req #: [id number] Recd: 06/26/[address]: Natalia Mcgrath MD Src: Blood SpDesc: Ordered: Bcult Comments: Comment port culture PULLED FROM PORT Procedure Result Verified Site Blood Culture Preliminary 06/27/25 NEGATIVE TO DATE Blood Culture Preliminary (changed) 06/26/25-1238 SPECIMEN COLLECTED NAME: María Saab LOC: ICU U #: [id number] AGE/SX: 75/F [place] [facility] [place] E06/24/[address]: Juan Ramon Ferrera DO : 1950 BED: 1 D IS: 06/30/25 FAX #: STATUS: DIS IN TLOC: Spec #: [id number] Ramon: 06/26/25 Status: RES Req #: [id number] Recd: 06/26/[address]: Natalia Mcgrath MD Src: Blood SpDesc: Ordered: Bcult Comments: PULLED FROM DIALYSIS LINE Procedure Result Verified Site Blood Culture Preliminary 06/27/25 NEGATIVE TO DATE Blood Culture Preliminary (changed) 06/26/25-1240 SPECIMEN COLLECTED A&P Assessment and plan 1. Postoperative state: 2. Status post open reduction and internal fixation (ORIF) of fracture: 3. Postoperative anemia: 4. Septic shock: 5. Uncontrolled type 2 diabetes mellitus with hyperglycemia: 6. Hypothyroidism, unspecified type: 7. Lower GI bleed requiring more than 4 units of blood in 24 hours, ICU, or surgery: 8. End stage renal disease: 9. Anemia: 10. Acute encephalopathy: 11. NSTEMI (non-ST elevated myocardial infarction): Plan: Acute encephalopathy, resolving -likely secondary to hypotension - Likely secondary metabolic acidosis - Likely secondary to hyponatremia - Likely secondary to UTI - Opponent acute on chronic anemia - Neurochecks - NIH stroke scale -aspiration precautions Multifactorial shock -Acute anemia -Possible component of cardiogenic shock? EF 45%, echocardiogram findings as below -Septic shock secondary to urinary tract infection - Maintain MAP more than 65, currently on 8 of Levophed - Status post sepsis bolus - Status post albumin - Continue vancomycin - Continue Zosyn - Follow blood cultures - Follow urine culture NSTEMI - No chest pain complaints - Type I versus type II NSTEMI -Does have septic shock secondary to UTI, acute anemia, is on Levophed, has end- stage renal disease on dialysis, fluid overload, bilateral pleural effusions CONCLUSIONS 1. Normal LV size. Mildly reduced left ventricular systolic function with severe hypokinesis of the septum and inferior maldonado. Overall ejection fraction 45%. 2. Moderately dilated right ventricle. Mildly reduced right ventricular systolic function 3. Moderate left atrial enlargement 4. Indeterminate left ventricular diastolic function due to severe mitral annular calcification 5. Moderate to severe pulmonary hypertension, PASP 64 mmHg 6. Moderate mitral valve regurgitation. Mild mitral valve stenosis 7. Moderate to severe tricuspid valve regurgitation 8. Compared to echocardiogram on 03/07/2022, the left ventricular systolic function has mildly decreased and the pulmonary hypertension has mildly increased. - History of GI bleed requiring transfer to tertiary level center with IR embolization according to patient - History of acute anemia during this hospitalization now requiring 3 units of blood Plan - After discussing the risk and benefits of anticoagulant therapy, patient has declined anticoagulant therapy - Continue aspirin 81 - Continue statin - Cardiology consulted - She will likely require stress testing versus angiographically at some point once clinically stable - Monitor clinical status closely - Cardiology consulted Fluid overload, pulmonary edema -Bilateral pleural effusion, moderate left-sided pleural effusion -Has end-stage renal disease on dialysis does not urinate much - Plan on CRRT - Will consider Lasix depending on blood pressures this afternoon Acute on chronic anemia with postoperative anemia - Hemoglobin 7.9, EBL 500, -Status post 2 units PRBC -Will give another unit PRBC today - Protonix, Carafate End-stage renal disease, right AV fistula in place, plans on assess catheter placement for CRRT Left upper extremity, left humerus fracture -Open reduction internal fixation of left humerus Hypocalcemia, monitor - Calcium 6.6, corrected calcium 7.1 -pth, vitamin d, ionized calcium Hyponatremia, monitor serum sodium CRRT today NSTEMI, serial EKGs, serial troponins, telemetry monitoring, as above History of GI bleed, as above Type 2 diabetes mellitus, low-dose insulin scale Right basilar pleural base lesion 1. Right basilar pleural-based lesion measuring 1.2 x 2.2 cm. PET-CT scan for further evaluation to exclude neoplasm is advised. 2. Mediastinal adenopathy. PET-CT scan for further evaluation is advised. With calcified pleural plaques in the right chest posteriorly Plan - Will need to follow-up with oncology as outpatient Possible liver cirrhosis?, Will have to follow-up with GI as outpatient June 26, 2025 Chart reviewed in detail. Patient with chronic comorbidities including ESRD on hemodialysis, hypothyroidism, diabetes mellitus, chronic anemia, history of GI bleed, hypertension, hyperlipidemia, admitted to the hospital on June 23, 2025 for planned open reduction internal fixation of a left humerus fracture. Postoperative course was notable for hypotension, altered mental status manifested as encephalopathy.. She received fluid boluses and was moved to the ICU. She has remained on Levophed, currently at 2 mics. Concern for postoperative weight loss for which patient received blood transfusion. Left IJ central line was placed in addition to having a port on the same side before due to need for multiple medications at the same time. There was no evidence of acute stroke. Patient was on CRRT as unable to tolerate hemodialysis with low blood pressure. Today patient appears to be improved. She is alert awake and oriented x 3. Levophed requirement is down at 2 mics. Plan is to resume hemodialysis today. Will add midodrine 10 mg 3 times daily to allow room on the blood pressure to be able to tolerate dialysis. Remove Spears catheter as strict output monitoring is not currently indicated in a patient on hemodialysis. CT of the chest abdomen and pelvis completed on 06/24/2025 showed a right basilar pleural-based region measuring 1.2 x 2.2 cm concerning for neoplasm. This appears to be an incidental finding. There was also mediastinal adenopathy. PET scan is recommended as an outpatient to further characterize. Liver cirrhosis was suspected based on irregular border and heterogeneous appearance of the liver. No other acute blood loss or infectious signs were found in the chest or abdomen. Urine analysis showed multiple urine WBCs, 4+ bacteria, 3+ leukocyte esterase, negative nitrate. Possibility of UTI considered, however urine culture has only showed mixed urogenital swetha on day 2 so far. She is on empiric meropenem and vancomycin at this time. Blood culture from 06/24 was reported positive for GPC's in clusters 1 out of 3 bottles. She is on empiric vancomycin. Currently awaiting identification of these GPC's. With the port in place certainly concerned that patient could have a staphylococcal infection. Will obtain repeat blood cultures today, 1 set from periphery and 1 set from the port. Patient denies any past history of port infection. Echocardiogram from 06/24/2025 showed a mildly reduced LVEF of 45% and severe hypokinesia of the septum and inferior maldonado. Right ventricle was moderately dilated. There was moderate to severe pulmonary hypertension with a PASP of 64 mmHg. There was moderate to severe tricuspid valve regurgitation as well. No gross vegetations were noted on TTE. Compared to 2021 hypokinesia was noted back then however the EF did drop from 55% previously. Cardiology service was consulted yesterday due to elevated troponins 105-->155--> 179 with delta of 50 and 74. She denied any chest pain. This was thought to be related to type II NSTEMI due to hypotension and anemia. Though there is a high risk of underlying CAD, angiogram has been deferred for now given that patient has a history of GI bleed and is not a good candidate currently to be on DAPT. This may need to be reassessed as an outpatient. Medical management with aspirin, atorvastatin and addition of beta- jose recommended once off pressors. Patient has also been noted to be having persistent A-fib. This is not a known history for patient. She will not be on anticoagulation candidate given history of severe GI bleed in 2021. May need to consider outpatient Watchman device. Currently A-fib is rate controlled. 06/27/25: clinically improving. BP mainained with midodrine 10mg TID , off levophed. Temp HD cath removed. Blood cx with staph epidermidis, likely contaminant. Plan to d/c vanc if port cx negative by tomorrow. working with PT, OT. encourage ambulation June 28, 2025 Patient noted to be bleeding from the left arm, currently has a pressure dressing in place. Hemoglobin at 7.4. In patient with recent type II NSTEMI, will aim to keep hemoglobin close to 8. Ordered for 1 unit blood transfusion today. Serial H&H monitoring to be resumed today. CTA of the left arm has been ordered to evaluate for active extravasation which may need intervention. Will follow-up with results of CTA. Patient is receiving currently heparin at the time of dialysis. Aspirin 81 mg is currently on board for NSTEMI versus type II OH. Will obtain stress test tomorrow, if stress test is normal will aim to discontinue aspirin to minimize risk of rebleeding. June 29, 2025 CTA of the left arm yesterday had revealed a 3.1 cm hematoma along the posterior margin of the triceps with adjacent foci of high density suggesting active bleeding. Patient was taken to the operating room where she was found to have active bleeding from the left humerus wound. Bleeding artery was coagulated. Patient was brought back to the ICU in stable condition. She has been hemodynamically stable thereafter. Hemoglobin today at ~9 after receiving 1 unit of blood transfusion. Blood culture from June 24, 2025 updated to reflect 1 of 3 bottles positive for Staph epidermidis and Staph hominis. Follow-up port cultures from 818 and peripheral cultures from 818 are negative to date. Favor the above to be contaminants. Discontinue vancomycin. Additionally discontinue meropenem. Monitor off antimicrobials. Continued on aspirin 81 mg p.o. daily in view of type II OH versus NSTEMI. Initially we had planned to perform a stress test, however this cannot be performed as planned as patient does not have a adequate peripheral IV access to enable administration of the nuclear contrast. This cannot be administered through a central line which is the patient's only current IV access. Cardiology service recommends proceeding with a left heart cath. Patient is discussing whether she would like to proceed with this after discussion with her family. Aspirin 81 mg to be continued now that bleeding source has been identified and coagulated. Planned dialysis tomorrow PDMP PDMP Reviewed: Last Reviewed 06/30/25 10:30 EDT by Natalia Mcgrath MD Attestations 2 Medical Necessity Statement*: Per admitting Coding Level of Care Code Acute Code for Chg Fwd High MDM includes number and complexity of problems actively addressed during encounter, amount and/or complexity of data reviewed/ordered and described risk of complication, morbidity or mortality of management as documented Diagnoses Postoperative state Z98.890 Status post open reduction and internal fixation (ORIF) of fracture Z98.890; Z87.81 Postoperative anemia D64.9 Septic shock A41.9; R65.21 Uncontrolled type 2 diabetes mellitus with hyperglycemia Hypothyroidism, unspecified type E03.9 Lower GI bleed requiring more than 4 units of blood in 24 hours, ICU, or surgery K92.2 End stage renal disease N18.6 Anemia D64.9 Acute encephalopathy G93.40 NSTEMI (non-ST elevated myocardial infarction) I21.4
--- NOTE | 2025-06-29 13:40 | PC.NURSE ---
up in chair for lunch no distress noted remains weak , shunt right arm , and dressing /cast to left arm unable to obtain blood pressure except left foot making it difficutly to obtain with restless leg syndromes, must be at bedside to steady foot to get accurate pressure
--- NOTE | 2025-06-29 14:26 | PC.SLP ---
Patient reported no difficulty swallowing or pain swallowing with level 6 diet other than not having dentures. Patient verbalized she did not want to try any food for therapy but would take a few sips of water. Patient tried several sips of cold thin liquid from straw without overt signs/symptoms of aspiration. Therapist reviewed swallowing strategies.
--- NOTE | 2025-06-29 20:58 | P.PN_ITS ---
Subjective 2 Subjective: no new complaints Medications: Reviewed: Yes Vitals/I&O/Wt Last Vital Signs Temp 97 F L 06/29/25 14:51 Pulse 90 06/29/25 18:00 Resp 11 L 06/29/25 17:30 BP 113/22 06/29/25 17:00 Pulse Ox 90 06/29/25 17:30 O2 Del Method Room Air 06/29/25 14:51 O2 Flow Rate 1 06/26/25 16:30 06/29/25 06/29/25 06/29/25 06:59 14:59 22:59 Intake Total 60 / 1720.688 650 / 650 250 / 900 Balance 60 / -48.312 650 / 650 250 / 900 Weight last 48 hrs Weight 69.5 kg Weight 69.9 kg Weight 70.874 kg Physical Exam 2 Narrative: No distress , on 1L NC no jvd peerla S1S2 RRR Lungs + crackles Abd soft , non tender no edema Urinary Catheter Management: Spears: Cath Placed During This Visit: yes, but has since been removed by the nurse Reason for Continuing Indwelling Catheter: Decision to DC Catheter Date Urinary Catheter Removed: 06/26/25 Time Urinary Catheter Discontinued: 10:50 Data 06/29/25 08:25 06/29/25 03:20 Micro: Microbiology 06/24/25 15:25 Blood Culture - Final Blood NO GROWTH AFTER 5 DAYS 06/24/25 15:32 Blood Culture - Preliminary Blood Staphylococcus epidermidis Staphylococcus hominis A&P Assessment and plan 1. End stage renal disease: Plan: 1. End-stage renal disease: HD tomorrow 2. Shock, off pressors 3. Status post ORIF of humerus fracture, s/p exploration of wound due to excess bleeding 4. Encephalopathy, resolved 5. Anemia due to blood loss, status posttransfusions 6. Urinary tract infection, 7. Hyponatremia, mild , monitoring closely, Patient evaluated using audiovisual cart. Time spent 40 minutes PDMP PDMP Reviewed: Not Reviewed Attestations 2 Medical Necessity Statement*: per medicine Coding Level of Care Code Acute Code for Chg Fwd Diagnoses End stage renal disease N18.6
[2025-06-30] VITALS (38 sets, daily range): BP systolic 90–134; BP diastolic 38–86; PULSE 67–97; RESP 10–28; TEMP 36.1–36.2; O2SAT 83–99
[2025-06-30 04:05] LABS: Hematocrit 26.9 % (36-47); Hemoglobin 8.50 g/dL (11.27-16.99); Mean Corpuscular HGB Conc 31.6 g/dL (30-55); Mean Corpuscular Hemoglobin 29.2 pg (27-33); Mean Corpuscular Volume 92.4 fl (85-98); Nucleated Red Blood Cells % 0.4 %; Platelet Count 226 10^3/cmm (157-399); Red Blood Count 2.91 10^6/uL (3.85-5.65); White Blood Count 7.02 10^3/uL (3.29-11.43)
[2025-06-30 04:29] LABS: Magnesium 2.0 mg/dL (1.7-2.3)
[2025-06-30 04:52] LABS: Alanine Aminotransferase 11 U/L (0-33); Albumin Level 3.6 g/dL (3.5-5.2); Alkaline Phosphatase 113 U/L (35-105); Anion Gap 18.1 (5-19); Aspartate Amino Transferase 14 U/L (0-32); Blood Urea Nitrogen 32 mg/dL (8-23); Calcium 6.9 mg/dL (8.5-10.5); Carbon Dioxide 24 mmol/L (22-29); Chloride 95 mmol/L (98-107); Creatinine Clr Calc Pharmacy 10.4904; Globulin 2.2 g/dL (1.3-4.6); Glucose 174 mg/dL (65-115); Osmolality Calculated 287 mOsm/kg (285-295); Potassium 4.1 mmol/L (3.5-5.1); Sodium 133 mmol/L (136-145); Total Protein 5.8 g/dL (6.6-8.7)
--- NOTE | 2025-06-30 09:20 | P.PN_ITS ---
<Statement entered by Gilbert Bass M.D - 07/02/25 12:05> Patient was cared for in conjunction with an advanced practice practitioner.? I reviewed the chart and all pertinent data including imaging, telemetry, and laboratory results.? I discussed the patient in detail with the advanced practice practitioner.? Please see?their note for progress note, testing results and agreed upon plan of care for the patient. Subjective 2 Subjective: No events noted overnight. No chest pain or shortness of breath. Vitals/I&O/Wt Last Vital Signs Temp 97.2 F L 06/30/25 10:45 Pulse 85 06/30/25 13:00 Resp 28 H 06/30/25 13:00 BP 121/64 06/30/25 12:30 Pulse Ox 99 06/30/25 13:00 O2 Del Method Room Air 06/29/25 14:51 O2 Flow Rate 1 06/26/25 16:30 06/29/25 06/30/25 06/30/25 22:59 06:59 14:59 Intake Total 250 / 900 600 / 600 Balance 250 / 900 600 / 600 Weight last 48 hrs Weight 159 lb 13.362 oz Weight 153 lb 3.54 oz Physical Exam 2 Const: COMMON NORMALS: no acute distress and patient oriented x3 Chest: COMMONS NORMALS: normal inspection of the chest and normal palpation of entire chest wall CHEST: Yes Symmetrical chest wall rise Resp: COMMON NORMALS: normal respiratory effort, No retractions, No use of accessory muscles and clear to auscultation bilaterally EFFORT & INSPECTION: Yes symmetric chest movement AUSCULTATION: clear to auscultation bilaterally Cardio: COMMON NORMALS: S1 normal heart sound present, S2 normal heart sound present, No gallops present (Cardio), No clicks present (Cardio), No murmurs present (Cardio) and No rub (Cardio) RHYTHM: abnormal rhythm irregularly irregular HEART SOUNDS: S1 normal heart sound present and S2 normal heart sound present PERIPHERAL PULSES: radial pulses present, posterior tibial pulses present and dorsalis pedis present Neuro: COMMON NORMALS: patient oriented x3 and moves all extremities Psych: COMMON NORMALS: mental status grossly normal and cooperative Urinary Catheter Management: Spears: Cath Placed During This Visit: yes, but has since been removed by the nurse Reason for Continuing Indwelling Catheter: Decision to DC Catheter Date Urinary Catheter Removed: 06/26/25 Time Urinary Catheter Discontinued: 10:50 Data 06/30/25 03:39 06/30/25 03:39 Micro: Microbiology 06/24/25 15:25 Blood Culture - Final Blood NO GROWTH AFTER 5 DAYS 06/24/25 15:32 Blood Culture - Preliminary Blood Staphylococcus epidermidis Staphylococcus hominis A&P Assessment and plan 1. Acute HFrEF (heart failure with reduced ejection fraction): 2. NSTEMI (non-ST elevated myocardial infarction): 3. HTN (hypertension): 4. Persistent atrial fibrillation: Plan: Discussed plan with the patient again this morning. She would not like any invasive procedures to be done at this time. We can follow-up with her as an outpatient for further investigation of new onset systolic CHF. Blood pressure has been soft, will hold off starting long-acting metoprolol or ARNI for now, can reassess in outpatient visits. Continue midodrine 10 mg 3 times a day. Ventricular rate of atrial fibrillation has been 70 to 80 bpm without a beta-jose. She is still candidate for Watchman device for long-term stroke prevention. This can be discussed at her outpatient visit as well. Continue baby aspirin, atorvastatin. She is discharging back to rehab today. PDMP PDMP Reviewed: Not Reviewed Attestations 2 Medical Necessity Statement*: Planned discharge to rehab today Coding Level of Care Code Acute Code for [facility] Fwd Diagnoses Acute HFrEF (heart failure with reduced ejection fraction) I50.21 NSTEMI (non-ST elevated myocardial infarction) I21.4 HTN (hypertension) I10 Persistent atrial fibrillation I48.19
[2025-06-30] MEDS: heparin, porcine 1,000 unit/mL INJ 10 mL 1000 UNIT IV (09:35)
--- NOTE | 2025-06-30 10:51 | P.DS_ITS ---
Discharge Providers Date of Admission: 06/23/25 08:35 Date of Discharge: June 30, 2025 Attending Provider at Admission: Juan Ramon Ferrera DO Attending Provider at Discharge: Juan Ramon Ferrera DO Primary Care Provider: Cesar Mendez MD Diagnoses at Discharge Discharge Diagnosis 1. End stage renal disease: Reason for Visit Reason for Visit: S42.332A Hospital Course Hospital Course June 23, 2025 patient had ORIF of her left humerus. She was kept in the hospital because she needed dialysis. June 26, 2025 Chart reviewed in detail. Patient with chronic comorbidities including ESRD on hemodialysis, hypothyroidism, diabetes mellitus, chronic anemia, history of GI bleed, hypertension, hyperlipidemia, admitted to the hospital on June 23, 2025 for planned open reduction internal fixation of a left humerus fracture. Postoperative course was notable for hypotension, altered mental status manifested as encephalopathy.. She received fluid boluses and was moved to the ICU. She has remained on Levophed, currently at 2 mics. Concern for postoperative weight loss for which patient received blood transfusion. Left IJ central line was placed in addition to having a port on the same side before due to need for multiple medications at the same time. There was no evidence of acute stroke. Patient was on CRRT as unable to tolerate hemodialysis with low blood pressure. Today patient appears to be improved. She is alert awake and oriented x 3. Levophed requirement is down at 2 mics. Plan is to resume hemodialysis today. Will add midodrine 10 mg 3 times daily to allow room on the blood pressure to be able to tolerate dialysis. Remove Spears catheter as strict output monitoring is not currently indicated in a patient on hemodialysis. CT of the chest abdomen and pelvis completed on 06/24/2025 showed a right basilar pleural-based region measuring 1.2 x 2.2 cm concerning for neoplasm. This appears to be an incidental finding. There was also mediastinal adenopathy. PET scan is recommended as an outpatient to further characterize. Liver cirrhosis was suspected based on irregular border and heterogeneous appearance of the liver. No other acute blood loss or infectious signs were found in the chest or abdomen. Urine analysis showed multiple urine WBCs, 4+ bacteria, 3+ leukocyte esterase, negative nitrate. Possibility of UTI considered, however urine culture has only showed mixed urogenital swetha on day 2 so far. She is on empiric meropenem and vancomycin at this time. Blood culture from 06/24 was reported positive for GPC's in clusters 1 out of 3 bottles. She is on empiric vancomycin. Currently awaiting identification of these GPC's. With the port in place certainly concerned that patient could have a staphylococcal infection. Will obtain repeat blood cultures today, 1 set from periphery and 1 set from the port. Patient denies any past history of port infection. Echocardiogram from 06/24/2025 showed a mildly reduced LVEF of 45% and severe hypokinesia of the septum and inferior maldonado. Right ventricle was moderately dilated. There was moderate to severe pulmonary hypertension with a PASP of 64 mmHg. There was moderate to severe tricuspid valve regurgitation as well. No gross vegetations were noted on TTE. Compared to 2021 hypokinesia was noted back then however the EF did drop from 55% previously. Cardiology service was consulted yesterday due to elevated troponins 105-->155--> 179 with delta of 50 and 74. She denied any chest pain. This was thought to be related to type II NSTEMI due to hypotension and anemia. Though there is a high risk of underlying CAD, angiogram has been deferred for now given that patient has a history of GI bleed and is not a good candidate currently to be on DAPT. This may need to be reassessed as an outpatient. Medical management with aspirin, atorvastatin and addition of beta-jose recommended once off pressors. Patient has also been noted to be having persistent A-fib. This is not a known history for patient. She will not be on anticoagulation candidate given history of severe GI bleed in 2021. May need to consider outpatient Watchman device. Currently A-fib is rate controlled. 06/27/25: clinically improving. BP mainained with midodrine 10mg TID , off levophed. Temp HD cath removed. Blood cx with staph epidermidis, likely contaminant. Plan to d/c vanc if port cx negative by tomorrow. working with PT, OT. encourage ambulation June 28, 2025 Patient noted to be bleeding from the left arm, currently has a pressure dressing in place. Hemoglobin at 7.4. In patient with recent type II NSTEMI, will aim to keep hemoglobin close to 8. Ordered for 1 unit blood transfusion today. Serial H&H monitoring to be resumed today. CTA of the left arm has been ordered to evaluate for active extravasation which may need intervention. Will follow-up with results of CTA. Patient is receiving currently heparin at the time of dialysis. Aspirin 81 mg is currently on board for NSTEMI versus type II ME. Will obtain stress test tomorrow, if stress test is normal will aim to discontinue aspirin to minimize risk of rebleeding. Patient was taken back to the OR to find where the bleeding was coming from. It seemed to be was coming from a bleeder in the subcutaneous tissue. Angiogram showed that it was possibly up on the more proximal forearm. I explored the area did not appear that anything was grossly bleeding that area is much as it was in that subcutaneous tissue and this is where the bleeding was coming out of the wound. 06/30/2025 Patient stabilized and was discharged from the ICU back to rehab. Physical Exam Narrative: Pain control patient comfortable left arm neurovasc intact. Urinary Catheter Management: Spears: Cath Placed During This Visit: yes, but has since been removed by the nurse Reason for Continuing Indwelling Catheter: Decision to DC Catheter Date Urinary Catheter Removed: 06/26/25 Time Urinary Catheter Discontinued: 10:50 Discharge Data Studies Completed and Pending Completed Studies During Hospitalization Category Date Time Status CT chest abdomen pelvis [CT chest abdpel w/*[id number] Cat Scan 06/24/25 08:57 Completed ] Routine CTA upper extremity left [place] [address]] Stat Cat Scan 06/28/25 14:05 Completed CXRP [XR chest 1V portable [id number]] Stat Exams 06/24/25 10:05 Completed CXRP [XR chest 1V portable 13813] Stat Exams 06/24/25 11:25 Completed XR chest 1V portable [id number] Routine Exams 06/24/25 09:02 Completed XR chest 1V portable [id number] Routine Exams 06/26/25 09:23 [place] [address] Routine Exams 06/23/25 09:05 [place] [address] Routine Exams 06/23/25 09:11 [place] [address] Routine Exams 06/27/25 19:43 Completed CV. echo complete* [id number] Routine Ultrasound 06/24/25 09:03 Completed Pending at discharge Category Date Time Status Cardiac Stress Test MIBI [Sestamibi Stress Test Request Exams 06/28/25 11:45 Ordered ] Routine Blood Culture Stat Lab 06/24/25 15:25 Results Blood Culture Stat Lab 06/26/25 12:24 Results Blood Culture Stat Lab 06/26/25 12:27 Results SARS Covid-2 Antigen Routine Lab 06/30/25 09:47 Uncollected Urinalysis Routine Lab 06/24/25 09:00 Ordered Urine Culture Stat Lab 06/24/25 09:06 Ordered Radiology Impressions Chest/Abdomen/Pelvis CT 06/24/25 08:57 IMPRESSION: 1. Right basilar pleural-based lesion measuring 1.2 x 2.2 cm. PET-CT scan for further evaluation to exclude neoplasm is advised. 2. Mediastinal adenopathy. PET-CT scan for further evaluation is advised. 3. Moderate-sized left-sided pleural effusion. 4. Calcified pleural plaques in the right chest posteriorly. Finding could be secondary to prior asbestos exposure. Clinical correlation is advised. 5. Age-indeterminate T7, T8, T9 vertebral body compression deformities. 6. Coronary calcifications. 7. Cardiomegaly. 8. Mild calcified atherosclerotic changes are seen in the thoracic aorta. 9. Generalized soft tissue anasarca. IMPRESSION: 1. Liver has a heterogeneous appearance. Diffuse hepatocellular process can not be excluded. 2. Liver appears to have irregular border. Cirrhotic liver can not be excluded. 3. Generalized soft tissue anasarca, small free pelvic fluid , edema at pushpa hepatis and small perihepatic ascites. 4. Moderate calcified atherosclerotic changes are seen in the abdominal aorta. 5. Hepatomegaly. 6. Generalized soft tissue anasarca. 7. Mild lumbar spine degenerative changes. COMMENTS: Consistent with the [employer]'s Incidental Findings Committee white paper (J Am Ramon Radiol 2018): Any incidental renal lesion less than 1 cm or classified as too small to characterize, or any incidental cystic renal lesion characterized as simple-appearing, is likely benign. No follow-up imaging is recommended for these lesions per consensus recommendations based on imaging criteria. Chest X-Ray 06/26/25 09:23 Impression: 1. Satisfactory position of the left infusion catheter and left internal jugular venous catheter. 2. Minimal patchy opacity in the retrocardiac region unchanged. 3. Atherosclerosis. Humerus X-Ray 06/27/25 19:43 IMPRESSION: 1. Status post ORIF of distal humeral fracture with intact hardware. 2. Soft tissue swelling. Upper Extremity CTA 06/28/25 14:05 IMPRESSION: 1. 3.1 cm hematoma along the posterior margin of the triceps muscle with adjacent foci of high density suggesting active bleeding. 2. No major vascular injury is visible. 3. Chronic humeral neck fracture. Chronic Hill-Sachs fracture versus avascular necrosis and subchondral collapse of the humeral head. 4. Diffuse nonspecific subcutaneous edema in the left chest wall and upper arm. 5. Moderate simple dependent left pleural effusion. ADDENDUM: 06/28/25 1978 THIS REPORT CONTAINS FINDINGS THAT MAY BE CRITICAL TO PATIENT CARE. The findings and recommendations were personally verbally communicated via telephone conference with Juan Ramon Faria at 4:16 PM CDT on 06/28/2025. The findings were acknowledged and understood. Laboratory Results WBC 7.02 10^3/uL (3.29-11.43) 06/30/25 03:39 RBC 2.91 10^6/uL (3.85-5.65) L 06/30/25 03:39 Hgb 8.50 g/dL (11.27-16.99) L 06/30/25 03:39 Hct 26.9 % (36-47) L 06/30/25 03:39 MCV 92.4 fl (85-98) 06/30/25 03:39 MCH 29.2 pg (27-33) 06/30/25 03:39 MCHC 31.6 g/dL (30-55) 06/30/25 03:39 RDW 19.9 % (12.1-15.1) H 06/30/25 03:39 Plt Count 226 10^3/cmm (157-399) 06/30/25 03:39 MPV 10.3 fL (7.4-10.4) 06/30/25 03:39 Neut % (Auto) 67.4 % 06/30/25 03:39 Lymph % (Auto) 14.2 % 06/30/25 03:39 Perry % (Auto) 10.5 % 06/30/25 03:39 Eos % (Auto) 3.0 % 06/30/25 03:39 Baso % (Auto) 0.6 % 06/30/25 03:39 Reticulocyte % (Auto) 1.3 % (0.5-2.0) 06/23/25 15:20 Neut # (Auto) 4.73 10^3/uL (1.8-7.7) 06/30/25 03:39 Lymph # (Auto) 1.0 10^3/uL (0.8-4.8) 06/30/25 03:39 Perry # (Auto) 0.7 10^3/uL (0.2-0.9) 06/30/25 03:39 Eos # (Auto) 0.2 10^3/uL (0.0-0.8) 06/30/25 03:39 Baso # (Auto) 0.0 10^3/uL (0.0-0.1) 06/30/25 03:39 Nucleated RBC % (auto) 0.4 % 06/30/25 03:39 Nucleated RBCs # 0.0 /100WBC 06/30/25 03:39 PT 16.90 SECONDS (12.1-14.9) H 06/27/25 03:22 INR 1.29 (0.8-1.2) H 06/27/25 03:22 Specimen Type Arterial 06/24/25 07:20 Sample Site Radial, right 06/24/25 07:20 ABG pH 7.44 (7.35-7.45) 06/24/25 07:20 ABG pCO2 36.6 mmHg (35-45) 06/24/25 07:20 ABG pO2 57.4 mmHg (80.0-100.0) L 06/24/25 07:20 ABG PO2/FiO2 Ratio 273 06/24/25 07:20 ABG HCO3 25.0 mmol/L (22-26) 06/24/25 07:20 ABG O2 Saturation 91.3 06/24/25 07:20 ABG Base Excess 0.8 mmol/L (-2.0-2.0) 06/24/25 07:20 Chan Test Pos 06/24/25 07:20 A-a O2 Gradient 6.1 mmHg (5-10) 06/24/25 07:20 Hematocrit 22.8 % (37-47) L 06/24/25 07:20 Hgb O2 Saturation 87.7 % (95-100) L 06/24/25 07:20 Carboxyhemoglobin 2.7 %THgb (0.4-20.1) 06/24/25 07:20 Methemoglobin 1.2 % (0.4-1.5) 06/24/25 07:20 Total Hemoglobin 7.4 g/dL (12-16) L 06/24/25 07:20 Sodium 127.0 mmol/L (131-143) L 06/24/25 07:20 Potassium 3.7 mmol/L (3.5-5.0) 06/24/25 07:20 Glucose 95.0 mg/dL (70-115) 06/24/25 07:20 Ionized Calcium 0.9 mmol/L (1.1-1.4) L 06/24/25 07:20 O2 Delivery Device Room air 06/24/25 07:20 FiO2 21.0 % 06/24/25 07:20 Axle Bearing Polisher ID [place] 06/24/25 07:20 Sodium 133 mmol/L (136-145) L 06/30/25 03:39 Potassium 4.1 mmol/L (3.5-5.1) 06/30/25 03:39 Chloride 95 mmol/L (98-107) L 06/30/25 03:39 Carbon Dioxide 24 mmol/L (22-29) 06/30/25 03:39 Anion Gap 18.1 (5-19) 06/30/25 03:39 BUN 32 mg/dL (8-23) H 06/30/25 03:39 Creatinine 4.2 mg/dL (0.5-0.9) H 06/30/25 03:39 GFR Calculation Not Reportable 06/30/25 03:39 Glucose 174 mg/dL (65-115) H 06/30/25 03:39 POC Glucose 167 mg/dL (70-110) H 06/30/25 06:47 Calculated Osmolality 287 mOsm/kg (285-295) 06/30/25 03:39 Lactic Acid Cancelled 06/24/25 11:29 Lactic Acid (Sepsis) 3.4 mmol/L (0.5-2.2) H 06/23/25 21:04 Lactate 1.6 mmol/L (0.5-2.2) 06/27/25 03:22 Calcium 6.9 mg/dL (8.5-10.5) L 06/30/25 03:39 Ionized Calcium Joyce 0.9 mmol/L (1.1-1.4) L 06/23/25 15:18 Phosphorus 2.3 mg/dL (2.5-4.5) L 06/30/25 03:39 Magnesium 2.0 mg/dL (1.7-2.3) 06/30/25 03:39 Iron 16 ug/dL (37-145) L 06/23/25 15:20 Iron 16 ug/dL (37-145) L 06/23/25 15:20 TIBC 123 mcg/dl 06/23/25 15:20 % Saturation 13.0 % (20-50) L 06/23/25 15:20 Unsat Iron Binding 107 ug/dL (112-347) L 06/23/25 15:20 Ferritin 1624 ng/mL (15-150) H 06/23/25 15:20 Total Bilirubin 1.1 mg/dL (0.15-1.2) 06/30/25 03:39 AST 14 U/L (0-32) 06/30/25 03:39 ALT 11 U/L (0-33) 06/30/25 03:39 Alkaline Phosphatase 113 U/L (35-105) H 06/30/25 03:39 Troponin T 5th Gen ng/L 258 ng/L (0-10) H* 06/25/25 04:24 Troponin T Baseline 105 ng/L (0-10) H* 06/24/25 11:29 Troponin T 120 Minute 155.4 ng/L (0-10) H 06/24/25 15:25 Delta Troponin T 50.4 ABS# (0-10) H* 06/24/25 15:25 Troponin T Hi Sens 6Hr 179.5 ng/L (0-10) H 06/24/25 18:12 Troponin T Hi Sens 6Hr Delta 74.5 ng/L (0-12) H* 06/24/25 18:12 C-Reactive Protein 107.9 mg/L (0.0-4.9) H 06/27/25 03:22 NT-Pro-B Natriuret Pep > 86402 pg/mL (0-450) H 06/27/25 03:22 Total Protein 5.8 g/dL (6.6-8.7) L 06/30/25 03:39 Albumin 3.6 g/dL (3.5-5.2) 06/30/25 03:39 Globulin 2.2 g/dL (1.3-4.6) 06/30/25 03:39 25-OH Vitamin D Total 20 pg/mL (18-72) 06/23/25 12:15 1,25 Dihydroxy Vit D2 <8 pg/mL 06/23/25 12:15 1,25 Dihydroxy Vit D3 20 pg/mL 06/23/25 12:15 Procalcitonin 1.33 ng/mL (0-0.5) H 06/27/25 03:22 TSH 1.23 uIU/mL (0.27-4.20) 06/24/25 11:29 PTH Intact 973.4 pg/mL (15-65) H 06/23/25 15:20 Calcium (PTH Intact) 6.6 mg/dL (8.5-10.5) L 06/23/25 15:20 Random Cortisol 9.62 ug/dL (2.47-19.5) 06/23/25 15:20 Urine Color Dark yellow (Yellow) A 06/24/25 09:15 Urine Appearance Turbid (CLEAR) A 06/24/25 09:15 Urine pH 7.5 (5-7) 06/24/25 09:15 Ur Specific [place] 1.015 (1.005-1.030) 06/24/25 09:15 Urine Protein 3+ (Negative) A 06/24/25 09:15 Urine Glucose (UA) 2+ (Normal) H 06/24/25 09:15 Urine Ketones Negative (Negative) 06/24/25 09:15 Urine Blood 2+ (Negative) A 06/24/25 09:15 Urine Nitrate Negative (Negative) 06/24/25 09:15 Urine Bilirubin Negative (Negative) 06/24/25 09:15 Urine Urobilinogen 1.0 mg/dL (Negative) 06/24/25 09:15 Ur Leukocyte Esterase 3+ (Negative) A 06/24/25 09:15 Urine RBC 5-10 /hpf (0-2) H 06/24/25 09:15 Urine WBC Too numerous to cnt /hpf (0-5) H 06/24/25 09:15 Ur Squamous Epith Cells None /hpf (0-5) 06/24/25 09:15 Amorphous Sediment Not Reportable 06/24/25 09:15 Urine Bacteria 4+ /hpf (NONE) H 06/24/25 09:15 Random Vancomycin 15.0 ug/mL (20.0-40.0) L 06/28/25 04:16 Hep Bs Antigen Non-reactive (Nonreactive) 06/23/25 15:20 Hep Bs Antibody 209.7 (11.5-1000) 06/23/25 15:20 Blood Type A Positive 06/28/25 12:14 Rho(D) Type Rh positive 06/28/25 12:14 Antibody Screen Negative 06/28/25 12:14 Crossmatch See Detail 06/28/25 12:14 Vitals Last Vital Signs Temp 97.2 F L 06/30/25 10:45 Pulse 83 06/30/25 10:45 Resp 18 06/30/25 10:45 BP 134/38 06/30/25 10:45 Pulse Ox 94 06/30/25 08:00 O2 Del Method Room Air 06/29/25 14:51 O2 Flow Rate 1 06/26/25 16:30 Discharge Plan Discharge Patient Disposition: Xfer SNF Condition: Stable Prescriptions: New atorvastatin 40 mg Tablet 40 mg PO BEDTIME 30 Days Qty: 30 0RF hydrocodone-acetaminophen 5-325 mg Tablet 1 tab PO Q8H PRN (Reason: Breakthrough Pain) 5 Days Qty: 15 0RF midodrine 5 mg Tablet 10 mg PO Q8H 30 Days Qty: 180 0RF aspirin 81 mg Tablet,Delayed Release (Dr/Ec) 81 mg PO Q24H 30 Days Qty: 30 0RF Continued amitriptyline 100 mg tablet 100 mg PO BEDTIME Prolia 60 mg/mL syringe 60 mg SUBCUT .[id number] Qty: 1 0RF Rx Instructions: at infusions levothyroxine [Synthroid] 25 mcg tablet 25 mcg PO DAILY Qty: 90 1RF Rx Instructions: To be taken with 200 mcg one tablet daily tamsulosin 0.4 mg capsule 0.4 mg PO QAM ropinirole 1 mg tablet 1 mg PO BEDTIME RenaPlex-D 800 mcg-12.5 mg -2,000 unit tablet 1 tab PO QAM Dialyvite 800-Ultra D 0.8-2,000 mg-unit tablet 1 tab PO QAM gabapentin 100 mg capsule 100 mg PO BEDTIME ferric citrate [Auryxia] 210 mg iron tablet 1 tab PO TID levothyroxine 200 mcg tablet 200 mcg PO DAILY Rx Instructions: TAKE 1 TABLET BY MOUTH DAILY IN ADDITION TO 25 MCG DAILY.; 225 MCG DAILY Held Ozempic 2 mg/dose (8 mg/3 mL) pen injector 2 mg SUBCUT Q7D Qty: 9 0RF Hold Instructions: Resume on 07/14/25. please follow up with ordering provider Discontinued carvedilol 12.5 mg tablet 12.5 mg PO EVERY OTHER DAY Rx Instructions: 1.25 mg orally 3 times weekly as directed the morning of dialysis on , , Thu and Sun furosemide 80 mg tablet 80 mg PO BID losartan 25 mg tablet 25 mg PO DAILY No Action (DME) FreeStyle Anita 2 [place] Misc See Rx Instructions .Route Qty: 1 0RF Rx Instructions: check blood sugar (DME) FreeStyle Anita 2 Sensor Kit See Rx Instructions .Route Qty: 3 3RF Rx Instructions: check blood sugar (DME) wheel chair See Rx Instructions .Route .MEDSUPPLY Qty: 1 0RF Rx Instructions: As directed Referrals: [facility] [Outside] Discharge Diet: Advance as tolerated Discharge Activity: Limit activity as instructed Patient Instructions: Acute Wound Care (DC), Opioid Safety, Post Anesthesia Care, Patient Portal & Maisha Instructions Activity Restrictions/Additional Instructions: You are being discharged from the hospital today during which time you have been under the care of Dr. Ferrera. You had a humerus fracture. You were treated for this injury with open reduction internal fixation of left humerus. You may resume you normal diet (including any special diets as directed by your primary doctor) as well as your home medications. You should follow up with you primary doctor if you have any questions regarding medication you took prior to your stay in the hospital. You may take your pain medication as prescribed. After the first few days, take your pain medication as needed. Do not drive or drink alcohol while taking your pain medication. Your injury may increase your risk of developing a blood clot,or DVT, in your arm or leg. This could potentially dislodge and travel to your lungs and become a life threatening condition called apulmonary embolus,or PE. You have been prescribed aspirin to be taken to prevent this. Frequent movement of the legs will also help prevent this from occurring. If you develop any new or worsening cough, chestpain, bloody sputum or shortness of breath, call 911 or go to the EmergencyRoom. Always keep your surgical incision/dressing clean and dry. If you experience increasing pain at your incision site, redness, swelling, increasing discharge, foul odors, or fevers (greater than 100.4), night sweats or chills you should call the office at the above number. If you feel this is an emergency you should be evaluated in the Emergency Department of a nearby hospital. Orthopedic Patient Instructions Summary: Weight Bearing: Nonweightbearing left upper extremity Activity: As tolerated. Diet: Regular. Splint Care: Keep splint clean and dry. Cover with a plastic bag for bathing. Anticoagulation: Aspirin Pain Medication: Take only as needed. Ice, rest and elevation will be of great benefit. Please plan to follow-up [facility] Dr Ferrera in 1 weeks. You will need to call the clinic [phone] to schedule this visit. Thank you far allowing me to participate in your care. Do not hesitate to call the office with any questions or concerns. Discharge Attestations Time Spent in Discharge Care*: less than 30 min Status at Discharge: Cognitive status at discharge: cognitively intact , Behavioral status at discharge: cooperative , Quality Metrics Clinical Quality Measures [ No reported AMI, CVA or VTE this stay] Coding Level of Care Code Acute Code for Chg Fwd Diagnoses End stage renal disease N18.6
--- NOTE | 2025-06-30 12:29 | PC.SOCIAL ---
IMM Update pg 2 of IMM Updated and reviewed w/ patient. Copy provided and copy dated, initialed and placed in chart.
--- NOTE | 2025-06-30 16:16 | PC.NURSE ---
Report called to [facility] [place] [facility] transport left with patient
--- NOTE | 2025-06-30 16:17 | PC.NURSE ---
notified of transport
--- NOTE | 2025-06-30 17:46 | PM.MISC ---
Miscellaneous Note Purpose of Documentation: Patient seen on dialysis today. No new complaints. She would like to proceed with left heart cath as an outpatient after discharge once recovered from her fracture. We will continue aspirin 81 mg p.o. daily and atorvastatin at discharge. Carvedilol and losartan will be discontinued due to hypotension during this current admission. Patient is currently needing midodrine 10 mg 3 times daily to maintain her blood pressure. Semaglutide continued for diabetes management. Recommended follow-up with endocrinology as an outpatient for the same.
== END 2025-06-30 16:19 | disposition skilled nursing facility (03) | DRG 853 ==
LOC: MEDSURG 14:31 → ICU 06-24 07:51 → MEDSURG 06-27 16:11 → ICU 06-28 18:22
PROVIDERS: Anesthesiology; Family Medicine; Hospitalist; Student in an Organized Health Care Education/Training Program; Admitting Provider Orthopaedic Surgery; PCP Family Medicine; Visit Provider Orthopaedic Surgery
PROC: 0PSD04Z Reposition Left Humeral Head with Internal Fixation Device, Open Approach (ICD-10-PCS; principal; 2025-06-23 07:00)
PROC: 0X3F0ZZ Control Bleeding in Left Lower Arm, Open Approach (ICD-10-PCS; principal; 2025-06-28 15:30)
DX: A41.9 Sepsis, unspecified organism (principal); G93.41 Metabolic encephalopathy; I50.21 Acute systolic (congestive) heart failure; R65.21 Severe sepsis with septic shock; N18.6 End stage renal disease; I21.A1 Myocardial infarction type 2; S42.402A Unspecified fracture of lower end of left humerus, initial encounter for closed fracture; I13.2 Hypertensive heart and chronic kidney disease with heart failure and with stage 5 chronic kidney disease, or end stage renal disease; M96.830 Postprocedural hemorrhage of a musculoskeletal structure following a musculoskeletal system procedure; E87.1 Hypo-osmolality and hyponatremia; E87.20 Acidosis, unspecified; N39.0 Urinary tract infection, site not specified; I48.19 Other persistent atrial fibrillation; D62 Acute posthemorrhagic anemia; E11.22 Type 2 diabetes mellitus with diabetic chronic kidney disease; Z79.82 Long term (current) use of aspirin; E11.65 Type 2 diabetes mellitus with hyperglycemia; E03.9 Hypothyroidism, unspecified; D63.1 Anemia in chronic kidney disease; E83.51 Hypocalcemia; E78.5 Hyperlipidemia, unspecified; W01.0XXA Fall on same level from slipping, tripping and stumbling without subsequent striking against object, initial encounter; I08.1 Rheumatic disorders of both mitral and tricuspid valves; I27.20 Pulmonary hypertension, unspecified; R91.8 Other nonspecific abnormal finding of lung field; Z79.85 Long-term (current) use of injectable non-insulin antidiabetic drugs; Z79.83 Long term (current) use of bisphosphonates; Z85.3 Personal history of malignant neoplasm of breast; Z86.73 Personal history of transient ischemic attack (TIA), and cerebral infarction without residual deficits
CPT/HCPCS: 36415; 36416; 36430; 36591; 36592; 36600; 71045; 71260; 73060; 73206; 74177; 76000; 80048; 80051; 80053; 80069; 80202; 81001; 82274; 82310; 82330; 82533; 82652; 82728; 82805; 82962; 83540; 83550; 83605; 83735; 83880; 83970; 84100; 84145; 84443; 84484; 85014; 85018; 85025; 85045; 85610; 86140; 86706; 86850; 86900; 86920; 87040; 87077; 87086; 87150; 87186; 87205; 87340; 90935; 92523; 92610; 93005; 93306; 96372; 96376; 97110; 97116; 97162; 97167; 97530; A4565; C1713; G0378; J0330; J1100; J1642; J1644; J1815; J2185; J2310; J2371; J2405; J2470; J2704; J2795; J3010; J3373; J3490; J7030; J7040; J7050; J9999; L3762; P9016; P9045; P9046; P9047; Q3014; Q5105

== ENCOUNTER → 2025-07-06 08:36 | Outpatient (BNVA) | payer MEDICARE, OTHER, SELFPAY | PROVIDERS: PCP Family Medicine; Visit Provider Orthopaedic Surgery | DX: Z98.890 Other specified postprocedural states (principal) | CPT/HCPCS: 99024 ==

== ENCOUNTER 2025-07-06 09:55 | Outpatient (CLI) | payer MEDICARE, OTHER, SELFPAY | END 2025-07-06 09:56 | disposition home or self-care (01) | LOC: SPT 09:55 | PROVIDERS: PCP Family Medicine; Visit Provider Orthopaedic Surgery | DX: Z47.89 Encounter for other orthopedic aftercare (principal); Z98.890 Other specified postprocedural states | CPT/HCPCS: A4565 ==

== ENCOUNTER 2025-07-11 11:39 | Emergency (ER) | payer MEDICARE, OTHER, SELFPAY ==
[2025-07-11 11:45] VITALS: BP 151/74; PULSE 78; TEMP 36.4; O2SAT 93; BMI 22.3
--- OUTSIDE RECORDS SUMMARY | 2025-07-11 11:45 | XMS_ITS | Encounter Summary ---
Author Organization [facility] Address [address] [place] [address] Care Team Providers Care Telegraph And Teletype Operator Name Role Phone Cesar Mendez MD Primary Care Provider [phone] Reason for Referral * Radiology Services (Routine) - Closed Specialty Diagnoses / Procedures Referred By George wallace Referred To Contact Radiology Diagnoses End stage renal disease (CMS/HCC) Procedures IR VENOUS ACCESS IR FISTULOGRAM Wu Clark MD [facility] Interventional Radiology [address] [place] [address] Phone: tel: fax: Referral ID Status Reason Start Date Expiration Date Visits Re quested Visits Authorized [id number] Closed 12/19/2020 01/19/2022 1 1 TION MECHANIC Encounter Details Date Type Department Care Team (Latest Contact Info) Description 12/19/2020 Ancillary Orders [facility] Interventional Radiology [address] [place] [address] Wu Clark MD NO ADDRESS [...] on file Legal Sex Female 4:12 AM IGNITION MECHANIC Gender Identity Not on file Sexual Orientation Not on file COVID-19 Exposure Response Date Recorded In the last month, have you been in contact with someone who was confirmed or suspected to have Coronavirus / COVID-19? No / Unsure 12/21/2020 10:18 AM IGNITION MECHANIC documented as of this encounter Plan of Treatment Not on file documented as of this encounter Results * IR VENOUS ACCESS (12/21/2020 1:09 PM IGNITION MECHANIC) Anatomical Region Laterality Modality X-Ray Angiograph y 12/21/2020 1:09 PM IGNITION MECHANIC Impressions 12/21/2020 5:03 PM IGNITION MECHANIC IMPRESSION: Please see below. EXAM: Ultrasound and fluoroscopy guided tunneled hemodialysis catheter placement OPERATORS: Robert Castro MD ACCESS SITE: Right internal jugular vein with ultrasound MEDICATIONS: Versed and Fentanyl were titrated to effect. Ancef 2 gram IV. CONTRAST: None FLUOROSCOPY TIME: 0.8 minutes CATHETER: 14.5 Chilean, 23 cm tip to cuff catheter ESTIMATED [...] and the needle exchanged for a 5 Chilean transitional dilator. A 0.035-inch wire was advanced [...] skin tract was dilated and a 15 Chilean dilator peel-away combination placed over the wire. [...] None FLUOROSCOPY TIME: 0.8 minutes CATHETER: 14.5 Chilean, 23 cm tip to cuff catheter ESTIMATED [...] and the needle exchanged for a 5 Chilean transitional dilator. A 0.035-inch wire was advanced [...] skin tract was dilated and a 15 Chilean dilator peel-away combination placed over the wire. [...] disease documented in this encounter Care Teams Telegraph And Teletype Operator Relationship Specialty Start Date End Date Cesar Mendez MD [address] [address] PCP - General Family Practice 01/13/20 documented as of this encounter
--- OUTSIDE RECORDS SUMMARY | 2025-07-11 11:45 | XMS_ITS | Encounter Summary ---
Author Organization [facility] Address [address] [place] [address] Care Team Providers Care Backside Grinder Name Role Phone Cesar Mendez MD Primary Care Provider [phone] Encounter Details Date Type Department Care Team (Latest Contact Info) Description 08/26/1999 Outpatient Historical HIS [facility] Antonio Mathis MD [address] [place] [address] Malignant neoplasm of breast (female), unspecified site (Primary Dx) Social History Tobacco Use Types Packs/Day Years Used Date Smoking Tobacco: Never Assessed Comments Unknown Sex and Gender Information Value Date Recorded Sex Assigned at Not on file Legal Sex Female 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
--- OUTSIDE RECORDS SUMMARY | 2025-07-11 11:45 | XMS_ITS | Encounter Summary ---
Author Organization [facility] Address [address] [place] [address] Care Team Providers Care Copper Etcher Name Role Phone Cesar Mendez MD Primary Care Provider [phone] Encounter Details Date Type Department Care Team (Late st Contact Info) Description 01/02/2003 Outpatient Historical HIS [facility] Vince Chaney Jr., MD [address] [place] [address] Social History Tobacco Use Types Packs/Day Years Used Date Smoking Tobacco: Never Assessed Comments Unknown Sex and Gender Information Value Date Recorded Sex Assigned at Not on file 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
--- OUTSIDE RECORDS SUMMARY | 2025-07-11 11:45 | XMS_ITS | Encounter Summary ---
Author Organization [employer] [facility] Address [address] [place] [address] Care Team Providers Care Model Dresser Name Role Phone Cesar Mendez MD Primary Care Provider [phone] Encounter Details Date Type Department Care Team (Latest Contact Info) Description 11/11/2001 Outpatient Historical HIS [facility] Vince Chaney Jr., MD [address] [place] [address] DIABETES UNCOMPL ADULT-TYPE II (CMS/HCC) (Primary Dx); Pure hypercholesterolem; HYPERTENSION NOS Social History Tobacco Use Types Packs/Day Years Used Date Smoking Tobacco: Never Assessed Comments Unknown Sex and Gender Information Value Date Recorded Sex Assigned at Not on file 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 Sex 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 Gender Identity Not on file Sexual Orientation Not on file documented as of this encounter Plan of Treatment Not on file documented as of this encounter Visit Diagnoses Diagnosis Type II or unspecified type diabetes mellitus without mention of complication, not stated as uncontrolled- Primary Pure hypercholesterolem Pure hypercholesterolemia Unspecified essential hypertension documented in this encounter Care Teams Model Dresser Relationship Specialty Start Date End Date Cesar Mendez MD 805 [facility] 1 [place] [phone] PCP - General Family Practice 01/13/20 documented as of this encounter
--- OUTSIDE RECORDS SUMMARY | 2025-07-11 11:45 | XMS_ITS | Encounter Summary ---
Author Organization [facility] Address [address] [place] [address] Care Team Providers Care Senior Javascript Developer Name Role Phone Cesar Mendez MD Primary Care Provider [phone] Encounter Details Date Type Department Care Team (Latest Contact Info) Description 09/17/2000 Outpatient Historical HIS [facility] Vince Chaney Jr., MD [address] [place] [address] Urinary tract infection, site not specified (Primary Dx); Hypopotassemia; Encounter for long-term (current) use of other medications Social History Tobacco Use Types Packs/Day Years Used Date Smoking Tobacco: Never Assessed Comments Unknown Sex and Gender Information Value Date Recorded Sex Assigned at Not on file 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
--- OUTSIDE RECORDS SUMMARY | 2025-07-11 11:45 | XMS_ITS | Encounter Summary ---
Author Organization [facility] Address [address] [place] [address] Care Team Providers Care Hair Or Beauty Salon Manager Name Role Phone Cesar Mendez MD Primary Care Provider [phone] Reason for Referral * Radiology Services (Routine) - Closed Specialty Diagnoses / Procedures Referred By George wallace Referred To Contact Radiology Diagnoses ESRD on dialysis ([facility]) Procedures IR FISTULOGRAM Wu Clakr MD [facility] Interventional Radiology [address] [place] [address] Phone: tel: fax: Referral ID Status Reason Start Date Expiration Date Visits Re quested Visits Authorized [id number] Closed 11/30/2020 12/31/2021 1 1 ATIONS SUPERINTENDENT Encounter Details Date Type Department Care Team (Latest Contact Info) Description 11/30/2020 Ancillary Orders [facility] Interventional Radiology [address] [place] [address] Wu Clark MD NO ADDRESS ON FILE ESRD on dialysis ([facility]) Social History Tobacco Use Types Packs/Day Years Used Date Smoking Tobacco: Never Smokeless Tobacco: Never Alcohol Use Standard Drinks/Week Comments Never 0 (1 standard drink = 0.6 oz pur e alcohol) Comments No Sex and Gender Information Value Date Recorded Sex Assigned at Not on file Legal Sex Female 4:12 AM OPERATIONS SUPERINTENDENT Gender Identity Not on file Sexual Orientation Not on file COVID-19 Exposure Response Date Recorded In the last month, have you been in contact with someone who was confirmed or suspected to have Coronavirus / COVID-19? No / Unsure 11/30/2020 11:40 AM OPERATIONS SUPERINTENDENT documented as of this encounter Plan of Treatment Not on file documented as of this encounter Results * IR FISTULOGRAM (11/30/2020 3:52 PM OPERATIONS SUPERINTENDENT) Anatomical Region Laterality Modality X-Ray Angiograph y 11/30/2020 3:52 PM OPERATIONS SUPERINTENDENT Impressions 11/30/2020 6:58 PM OPERATIONS SUPERINTENDENT IMPRESSION: Please see below. Exam: Right upper [...] dialysis graft was punctured and a 6 German sheath was placed with its tip directed centrally. A 5 German straight end hole catheter was advanced over [...] the graft was punctured and a 6 German sheath was placed with its tip directed peripherally. A 5 German Yamileth balloon catheter was advanced over the [...] outflow of the graft. The indwelling 6 German arterial limb access sheath was replaced with an 8 German access sheath through which a 9 mm [...] dialysis graft was punctured and a 6 German sheath was placed with its tip directed centrally. A 5 German straight end hole catheter was advanced over [...] the graft was punctured and a 6 German sheath was placed with its tip directed peripherally. A 5 German Yamileth balloon catheter was advanced over the [...] outflow of the graft. The indwelling 6 German arterial limb access sheath was replaced with an 8 German access sheath through which a 9 mm [...] encounter Visit Diagnoses Diagnosis ESRD on dialysis ([facility]) End stage renal disease ESRD on dialysis ([facility]) End stage renal disease documented in this encounter Care Teams Hair Or Beauty Salon Manager Relationship Specialty Start Date End Date Cesar Mendez MD [address] [phone] PCP - General Family Practice 01/13/20 documented as of this encounter
--- OUTSIDE RECORDS SUMMARY | 2025-07-11 11:45 | XMS_ITS | Encounter Summary ---
Author Organization [facility] Address [address] [place] [address] Care Team Providers Care Online Advertising Manager Name Role Phone Cesar Mendez MD Primary Care Provider [phone] Encounter Details Date Type Department Care Team (Latest Contact Info) Description 06/30/2002 Outpatient Historical HIS [facility] Vince Chaney Jr., MD [address] [place] [address] ANEMIA NOS (Primary Dx); DIABETES UNCOMPL ADULT-TYPE II (CMS/HCC); HYPERTENSION NOS Social History Tobacco Use Types Packs/Day Years Used Date Smoking Tobacco: Never Assessed Comments Unknown Sex and Gender Information Value Date Recorded Sex Assigned at Not on file Legal Sex Female 4:12 AM DINKEY OPERATOR SLAG Gender Identity Not on file Sexual Orientation Not on file documented as of this encounter Plan of Treatment Not on file documented as of this encounter Visit Diagnoses Diagnosis Anemia, unspecified- Primary Type II or unspecified type diabetes mellitus without mention of complication, not stated as uncontrolled Unspecified essential hypertension documented in this encounter Care Teams Online Advertising Manager Relationship Specialty Start Date End Date Cesar Mendez MD 805 [facility] 1 [place] [address] PCP - General Family Practice 01/13/20 documented as of this encounter
--- OUTSIDE RECORDS SUMMARY | 2025-07-11 11:45 | XMS_ITS | Encounter Summary ---
Author Organization [employer] [facility] Address [address] [place] [address] Care Team Providers Care High School Assistant Football Coach Name Role Phone Cesar Mendez MD Primary Care Provider [phone] Encounter Details Date Type Department Care Team (Latest Contact Info) Description 12/24/2000 Outpatient Historical HIS [facility] Vince Chaney Jr., MD [address] [place] [address] Type II or unspecified type diabetes mellitus without mention of complication, not stated as uncontrolled (Primary Dx); Unspecified essential hypertension; Pure hypercholesterolem Social History Tobacco Use Types Packs/Day Years Used Date Smoking Tobacco: Never Assessed Comments Unknown Sex and Gender Information Value Date Recorded Sex Assigned at Not on file Legal Sex Female 4:12 AM IN SERVICE EDUCATOR Gender Identity Not on file Sexual Orientation Not on file documented as of this encounter Plan of Treatment Not on file documented as of this encounter Visit Diagnoses Diagnosis Type II or unspecified type diabetes mellitus without mention of complication, not stated as uncontrolled- Primary Unspecified essential hypertension Pure hypercholesterolem Pure hypercholesterolemia documented in this encounter Care Teams High School Assistant Football Coach Relationship Specialty Start Date End Date Cesar Mendez MD 805 [facility] 1 [place] [phone] PCP - General Family Practice 01/13/20 documented as of this encounter
--- OUTSIDE RECORDS SUMMARY | 2025-07-11 11:45 | XMS_ITS | Encounter Summary ---
Author Organization [employer] [facility] Address [address] [place] [address] Care Team Providers Care Cemetery Workers Supervisor Name Role Phone Cesar Mendez MD Primary Care Provider [phone] Encounter Details Date Type Department Care Team (Latest Contact Info) Description 09/10/2000 Outpatient Historical HIS [facility] Vince Chaney Jr., MD [address] [place] [address] Hematuria (Primary Dx); Urinary tract infection, site not specified Social History Tobacco Use Types Packs/Day Years Used Date Smoking Tobacco: Never Assessed Comments Unknown Sex and Gender Information Value Date Recorded Sex Assigned at Not on file Legal Sex Female 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
--- OUTSIDE RECORDS SUMMARY | 2025-07-11 11:45 | XMS_ITS | Encounter Summary ---
Author Organization [facility] Address [address] [place] [address] Care Team Providers Care Neon Sign Erector Name Role Phone Cesar Mendez MD Primary Care Provider [phone] Encounter Details Date Type Department Care Team (Latest Contact Info) Description 07/06/2003 Outpatient Historical HIS [facility] Vince Chaney Jr., MD [address] [place] [address] DIABETES UNCOMPL ADULT-TYPE II (CMS/HCC) (Primary Dx); LUMBAGO; HYPERTENSION NOS Social History Tobacco Use Types Packs/Day Years Used Date Smoking Tobacco: Never Assessed Comments Unknown Sex and Gender Information Value Date Recorded Sex Assigned at Not on file Legal Sex Female 4:12 AM DUCT LAYER SUPERVISOR Gender Identity Not on file Sexual Orientation Not on file documented as of this encounter Plan of Treatment Not on file documented as of this encounter Visit Diagnoses Diagnosis Type II or unspecified type diabetes mellitus without mention of complication, not stated as uncontrolled- Primary Lumbago Unspecified essential hypertension documented in this encounter Care Teams Neon Sign Erector Relationship Specialty Start Date End Date Cesar Mendez MD 8[address] [facility] 1 [place] [address] PCP - General Family Practice 01/13/20 documented as of this encounter
--- OUTSIDE RECORDS SUMMARY | 2025-07-11 11:45 | XMS_ITS | Encounter Summary ---
Author Organization [employer] Address [address] [facility] Attn: [place] [address] Care Team Providers Care Estate Tax Examiner Name Role Phone Cesar Mendez MD Primary Care Provider [phone] Encounter Details Date Type Department Care Team (Late st Contact Info) Description 07/12/2002 Outpatient Historical Vince Chaney Jr., MD [address] [place] [address] Social History Tobacco Use Types Packs/Day Years Used Date Smoking Tobacco: Never Assessed Comments Unknown Sex and Gender Information Value Date Recorded Sex Assigned at Not on file Legal Sex Female 4:12 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
--- OUTSIDE RECORDS SUMMARY | 2025-07-11 11:45 | XMS_ITS | Encounter Summary ---
Author Organization [facility] Address [address] [place] [address] Care Team Providers Care Coremaking Machine Setter Name Role Phone Cesar Mendez MD Primary Care Provider [phone] Encounter Details Date Type Department Care Team (Latest Contact Info) Description 03/02/2000 Outpatient Historical HIS [facility] Antonio Mathis MD [address] [place] [address] Personal history of malignant neoplasm of breast (Primary Dx) Social History Tobacco Use Types Packs/Day Years Used Date Smoking Tobacco: Never Assessed Comments Unknown Sex and Gender Information Value Date Recorded Sex Assigned at Not on file 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
--- OUTSIDE RECORDS SUMMARY | 2025-07-11 11:45 | XMS_ITS | Encounter Summary ---
Author Organization [facility] Address [address] [place] [address] Care Team Providers Care Examination Grader Name Role Phone Cesar Mendez MD Primary Care Provider Encounter Details Date Type Department Care Team (Latest Contact Info) Description 12/18/1999 Outpatient Historical HIS [facility] Antonio Mathis MD [address] [place] [address] Personal history of malignant neoplasm of breast (Primary Dx) Social History Tobacco Use Types Packs/Day Years Used Date Smoking Tobacco: Never Assessed Comments Unknown Sex and Gender Information Value Date Recorded Sex Assigned at Not on file Legal Sex Female 4:12 AM EXAMINATION GRADER Gender Identity Not on file Sexual Orientation Not on file documented as of this encounter Plan of Treatment Not on file documented as of this encounter Visit Diagnoses Diagnosis Personal history of malignant neoplasm of breast- Primary documented in this encounter Care Teams Examination Grader Relationship Specialty Start Date End Date Cesar Mendez MD [address] [facility] 1 [place] [phone] PCP - General Family Practice 01/13/20 documented as of this encounter
--- OUTSIDE RECORDS SUMMARY | 2025-07-11 11:45 | XMS_ITS | Encounter Summary ---
Author Organization [employer] [facility] [employer] Address [address] [place] [address] Phone Care Team Providers Care Manager Installation Name Role Phone Cesar Mendez MD Primary Care Provider [phone] Reason for Visit * Reason Comments Med Refill Encounter Details Date Type Department Care Team (Late st Contact Info) Description 05/06/2021 Refill [facility] [employer] [employer] [address] [place] [address] Wu Clark MD [address] [place] [address] Social History Tobacco Use Types [...] on filedocumented in this encounter Care Teams Manager Installation Relationship Specialty Start Date End Date Cesar Mendez MD [address] [place] [phone] PCP - General Family Medicine 12/29/18 documented as of this encounter
--- OUTSIDE RECORDS SUMMARY | 2025-07-11 11:45 | XMS_ITS | Clinical Summary ---
Author Organization [facility] Address [address] [place] [address] Phone Care Team Providers Care Wood Machine Carver Name Role Phone Cesar Mendez MD Primary Care Provider [phone] Allergies Active Allergy Reactions Criticality Noted Date [...] 2 Tablets by mouth. 0 Active Vit A,C,H-Rkui-Qymex r (Ocuvite PreserVision) 7,160 unit- 113 mg-100 [...] on file Legal Sex Female 4:12 AM STATIONARY FIREMAN Gender Identity Not on file Sexual Orientation [...] history exists Medical Devices Implanted Type Area Elementary Teacher Device Identifier Shelf Expiration Date Model / Serial / Lot Cath Pd Eric Boone 2cuff 60418-331 - [id number] Implanted:Qty : 1 on 04/26/2019 by Ben Enciso DO at [facility] Catheter N/A: Abdomen MEDTRONIC - COVIDIEN 11/30/2023 [id number] / / [id number] Cath Dialysis Glidepath 14.5fr 23cm Std [id number] Implanted:Qty : 1 on 12/21/2020 by Robert Castro MD Catheter Right: Chest Wall CR BARD- [employer] [id number] 05/08/2022 [id number] / / [id number] Description:14.5fr x 23cm Gl idePath Dialysis Catheter implanted on right Clip Ligating Horizon Med Ti [id number] - Csc - [id number] Implanted:Qty : 1 on 01/31/2021 by Lonnie Sparks MD at [facility] Clip Right: Arm TELEFLEX- WECK CLOSURE SYS 04/30/2025 [id number] / / [id number] Clip Ligating Horizon Red [id number] - Csc - [id number] Implanted:Qty : 1 on 01/31/2021 by Lonnie Sparks MD at [facility] Clip Right: Arm TELEFLEX INC 04/30/2025 [id number] / / [id number] Hemostatic Surgifoam Sz100 1973 - [id number] Implanted:Qty : 1 on 07/04/2020 by Lonnie Sparks MD at [facility] Hemostatic Right: Arm J[employer]J- [employer] [id number] 02/22/2024 1974 / / [id number] Covera Flaired Stent-11/30/19 Implanted:Qty : 1 on 11/30/2020 by Betsey Serra MD Stent Right: Arm [id number] 07/06/2022 [id number] / / [id number] 8 X 40mm Covera Covered Stent- Implanted:Qty : 1 on 12/10/2020 by Betsey Serra MD Stent Right: Arm [id number] 05/04/2022 [id number] / / [id number] Description:8 x 40mm Covera Covered Stent implanted in right arm Graft Graft Vasc Propaten 4-2dob03no [id number] - [id number] Implanted:Qty : 1 on 07/04/2020 by Lonnie Sparks MD at [facility] Tissue Right: Arm [employer] 01/07/2024 [id number] / / [id number] Explanted Type Area Elementary Teacher Device Identifier Shelf Expiration Date Model / Serial / Lot Hemostatic Surgifoam Sz100 1973 - [id number] Explanted:Qty: 1 on 01/31/2021 by Lonnie Sparks MD at [facility] Hemostatic Right: Arm J&J- [employer] [id number] 09/06/20241973 / / [id number] Insurance MEDICARE PART A AND B [facility] Medicare Part D Advance Directives For more information, please contact: [phone] * Full Code (Latest Code Status on [...] 7:55 AM 04/26/2019 11:45 AM Care Teams Wood Machine Carver Relationship Specialty Start Date End Date Cesar Mendez MD [address] [phone] PCP - General Family Practice 01/13/20
--- OUTSIDE RECORDS SUMMARY | 2025-07-11 11:45 | XMS_ITS | Encounter Summary ---
Author Organization [facility] Address [address] [place] [address] Phone Care Team Providers Care Criminal Intelligence Analyst Name Role Phone Cesar Mendez MD Primary Care Provider [phone] Reason for Visit * Reason Comments Med Refill Encounter Details Date Type Department Care Team (Late st Contact Info) Description 01/15/2021 Refill [facility] [address] [place] [address] Wu Clark MD [address] [place] [address] Social History Tobacco Use Types [...] on filedocumented in this encounter Care Teams Criminal Intelligence Analyst Relationship Specialty Start Date End Date Cesar Mendez MD [address] [place] [phone] PCP - General Family Medicine 12/29/18 documented as of this encounter
--- OUTSIDE RECORDS SUMMARY | 2025-07-11 11:45 | XMS_ITS | Encounter Summary ---
Author Organization [facility] Address [address] [place] [address] Phone Care Team Providers Care Regional Company Hazmat Tanker Driver Name Role Phone Cesar Mendez MD Primary Care Provider [phone] Reason for Visit * Reason Comments Med Refill Encounter Details Date Type Department Care Team (Late st Contact Info) Description 03/16/2021 Refill [facility] [address] [place] [address] Wu Clark MD [address] [place] [address] Social History Tobacco Use Types [...] on filedocumented in this encounter Care Teams Regional Company Hazmat Tanker Driver Relationship Specialty Start Date End Date Cesar Mendez MD [address] [place] [phone] PCP - General Family Medicine 12/29/18 documented as of this encounter
--- OUTSIDE RECORDS SUMMARY | 2025-07-11 11:45 | XMS_ITS | Encounter Summary ---
Author Organization [facility] Address [address] [place] [address] Care Team Providers Care Brick Pitcher Name Role Phone Cesar Mendez MD Primary Care Provider [phone] Reason for Referral * Radiology Services (Routine) - Closed Specialty Diagnoses / Procedures Referred By George wallace Referred To Contact Radiology Diagnoses Arteriovenous fistula occlusion, initial encounter Procedures IR FISTULOGRAM Wu Clark MD [facility] Interventional Radiology [address] [place] [address] [place] [address] Phone: tel: fax: Referral ID Status Reason Start Date Expiration Date Visits Re quested Visits Authorized [id number] Closed 11/21/2020 12/22/2021 1 1 DREN'S INSTITUTION ATTENDANT Encounter Details Date Type Department Care Team (Latest Contact Info) Description 11/21/2020 Ancillary Orders [facility] Interventional Radiology [address] [place] [address] [place] [address] Wu Clark MD NO ADDRESS [...] on file Legal Sex Female 4:12 AM CHILDREN'S INSTITUTION ATTENDANT Gender Identity Not on file Sexual Orientation Not on file COVID-19 Exposure Response Date Recorded In the last month, have you been in contact with someone who was confirmed or suspected to have Coronavirus / COVID-19? No / Unsure 11/22/2020 8:30 AM CHILDREN'S INSTITUTION ATTENDANT documented as of this encounter Plan of Treatment Not on file documented as of this encounter Results * IR FISTULOGRAM (11/22/2020 10:46 AM CHILDREN'S INSTITUTION ATTENDANT) Anatomical Region Laterality Modality X-Ray Angiograph y 11/22/2020 10:4 6 AM CHILDREN'S INSTITUTION ATTENDANT Impressions 11/23/2020 7:56 AM CHILDREN'S INSTITUTION ATTENDANT IMPRESSION: 1. Sonography and fistulography demonstrated occlusive thrombus in the right upper arm arterial venous graft. 2. Thrombolysis and thrombectomy resulted in yazidi of vascular flow through the arteriovenous graft. 3. Angioplasty of a stenotic lesion at the venous anastomosis resulted in brisk flow and mild residual stenosis. Narrative 11/23/2020 7:56 AM CHILDREN'S INSTITUTION ATTENDANT PROCEDURE: 1. Ultrasound-guided vascular access. 2. Fistulography [...] prepped and draped in usual sterile manner. [place] timeout protocol was performed. Sonographic evaluation of the right upper arm arterial venous graft showed occlusive thrombus within the graft. Using real-time ultrasound guidance, the arterial limb of the graft was accessed with micropuncture needle after anesthetizing the skin with 2% lidocaine (an ultrasound image is archived to PACS). Using standard micropuncture technique, the tract was dilated, and a 6 Swiss vascular sheath was inserted over a guidewire and directed antegrade. A 4 Swiss ShopEx diagnostic catheter was advanced over wire into the right axillary vein, and a gentle pullback venogram was performed. This demonstrated occlusive thrombus in the arteriovenous graft. Catheter-directed thrombolysis of thrombus in the arterial venous graft was performed using 4 mg of TPA. Balloon maceration of the thrombus in the arteriovenous graft was performed using an 8 mm x 40 mm Kenney balloon. Percutaneous transluminal angioplasty of a short [...] the tract was dilated, and a 6 Swiss vascular sheath was inserted over a guidewire and directed retrograde. A Yamileth balloon was advanced over a guidewire into the right brachial artery, and Yamileth thrombectomy of the arterial limb of the graft was performed. Subsequent arteriography performed from the right brachial artery demonstrated yazidi of flow through the arteriovenous graft. A small to moderate amount of residual thrombus was seen within the graft. Balloon maceration of the thrombus in the graft was again performed. Subsequent angiography demonstrated yazidi of brisk flow in the arterial venous graft and no significant residual stenosis. A short segment of 65% stenosis was again seen at the venous anastomosis. A prolonged inflation of the 8 mm balloon was performed at the venous anastomosis. Subsequent angiography demonstrated yazidi of brisk flow and less than 50% [...] prepped and draped in usual sterile manner. [place] timeout protocol was performed. Sonographic evaluation of the right upper arm arterial venous graft showed occlusive thrombus within the graft. Using real-time ultrasound guidance, the arterial limb of the graft was accessed with micropuncture needle after anesthetizing the skin with 2% lidocaine (an ultrasound image is archived to PACS). Using standard micropuncture technique, the tract was dilated, and a 6 Swiss vascular sheath was inserted over a guidewire and directed antegrade. A 4 Swiss Scriptickenstein diagnostic catheter was advanced over wire into the right axillary vein, and a gentle pullback venogram was performed. This demonstrated occlusive thrombus in the arteriovenous graft. Catheter-directed thrombolysis of thrombus in the arterial venous graft was performed using 4 mg of TPA. Balloon maceration of the thrombus in the arteriovenous graft was performed using an 8 mm x 40 mm Kenney balloon. Percutaneous transluminal angioplasty of a short [...] the tract was dilated, and a 6 Swiss vascular sheath was inserted over a guidewire and directed retrograde. A Yamileth balloon was advanced over a guidewire into the right brachial artery, and Yamileth thrombectomy of the arterial limb of the graft was performed. Subsequent arteriography performed from the right brachial artery demonstrated yazidi of flow through the arteriovenous graft. A small to moderate amount of residual thrombus was seen within the graft. Balloon maceration of the thrombus in the graft was again performed. Subsequent angiography demonstrated yazidi of brisk flow in the arterial venous graft and no significant residual stenosis. A short segment of 65% stenosis was again seen at the venous anastomosis. A prolonged inflation of the 8 mm balloon was performed at the venous anastomosis. Subsequent angiography demonstrated yazidi of brisk flow and less than 50% [...] graft. 2. Thrombolysis and thrombectomy resulted in yazidi of vascular flow through the arteriovenous graft. 3. Angioplasty of a stenotic lesion at the venous anastomosis resulted in brisk flow and mild residual stenosis. Wu Clark MD IR ORDERABLES Final Result documented in this encounter Visit Diagnoses Diagnosis Arteriovenous fistula occlusion, initial encounter Arteriovenous fistula occlusion, initial encounter documented in this encounter Care Teams Brick Pitcher Relationship Specialty Start Date End Date Cesar Mendez MD [address] [phone] PCP - General Family Practice 01/13/20 documented as of this encounter
--- OUTSIDE RECORDS SUMMARY | 2025-07-11 11:45 | XMS_ITS | Encounter Summary ---
Author Organization [facility] Address [address] [place] [address] Care Team Providers Care Wax Bleacher Name Role Phone Cesar Mendez MD Primary Care Provider [phone] Encounter Details Date Type Department Care Team (Latest Contact Info) Description 01/13/2000 Outpatient Historical [facility] Vince Chaney Jr., MD [address] [place] [address] Type II or unspecified type diabetes mellitus without mention of complication, not stated as uncontrolled (Primary Dx); Unspecified essential hypertension; Malignant neoplasm of breast (female), unspecified site Social History Tobacco Use Types Packs/Day Years Used Date Smoking Tobacco: Never Assessed Comments Unknown Sex and Gender Information Value Date Recorded Sex Assigned at Not on file Legal Sex Female 4:12 AM SHANKER OUT Gender Identity Not on file Sexual Orientation Not on file documented as of this encounter Plan of Treatment Not on file documented as of this encounter Visit Diagnoses Diagnosis Type II or unspecified type diabetes mellitus without mention of complication, not stated as uncontrolled- Primary Unspecified essential hypertension Malignant neoplasm of breast (female), unspecified site documented in this encounter Care Teams Wax Bleacher Relationship Specialty Start Date End Date Cesar Mendez MD [address] [address] PCP - General Family Practice 01/13/20 documented as of this encounter
--- OUTSIDE RECORDS SUMMARY | 2025-07-11 11:45 | XMS_ITS | Encounter Summary ---
Author Organization [employer] 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
--- OUTSIDE RECORDS SUMMARY | 2025-07-11 11:45 | XMS_ITS | Encounter Summary ---
Author Organization [facility] Address [address] [facility] [address] [place] [address] Phone Care Team Providers Care Special Education Coordinator Name Role Phone Cesar Mendez MD Primary Care Provider [phone] Encounter Details Date Type Department Care Team (Late st Contact Info) Description 03/16/2019 Orders Only [facility] [address] [place] [address] Wu Clark MD [address] [place] [address] Chronic kidney disease stage 4 [...] MD LAB BLOOD ORDERABLES Fi nal Result [facility] documented in this encounter Visit Diagnoses Diagnosis Chronic kidney disease stage 4 (HCC) documented in this encounter Care Teams Special Education Coordinator Relationship Specialty Start Date End Date Cesar Mendez MD [address] [place] [address] PCP - General Family Medicine 12/29/18 documented as of this encounter
--- OUTSIDE RECORDS SUMMARY | 2025-07-11 11:45 | XMS_ITS | Encounter Summary ---
Author Organization [facility] Address [address] [place] [address] Care Team Providers Care Corporate Development Intern Name Role Phone Cesar Mendez MD Primary Care Provider [phone] Encounter Details Date Type Department Care Team (Latest Contact Info) Description 05/26/2001 Outpatient Historical HIS [facility] Vince Chaney Jr., MD [address] [place] [address] Myalgia and myositis, unspecified (Primary Dx); Urinary obstruction Social History Tobacco Use Types Packs/Day Years Used Date Smoking Tobacco: Never Assessed Comments Unknown Sex and Gender Information Value Date Recorded Sex Assigned at Not on file Legal Sex Female 4:12 AM SEPTIC TANK SERVICE TECHNICIAN Gender Identity Not on file Sexual Orientation Not on file documented as of this encounter Plan of Treatment Not on file documented as of this encounter Visit Diagnoses Diagnosis Myalgia and myositis, unspecified- Primary Mylagia and myositis, unspecified Urinary obstruction documented in this encounter Care Teams Corporate Development Intern Relationship Specialty Start Date End Date Cesar Mendez MD [address] [facility] [address] [place] [phone] PCP - General Family Practice 01/13/20 documented as of this encounter
--- OUTSIDE RECORDS SUMMARY | 2025-07-11 11:45 | XMS_ITS | Encounter Summary ---
Author Organization [facility] Address [address] [place] [address] Care Team Providers Care Pipe Fitter Marine Name Role Phone Cesar Mendez MD Primary Care Provider [phone] Encounter Details Date Type Department Care Team (Latest Contact Info) Description 02/19/2000 Outpatient Historical HIS [facility] Vince Chaney Jr., MD [address] [place] [address] Type II or unspecified type diabetes mellitus without mention of complication, not stated as uncontrolled (Primary Dx); Unspecified essential hypertension; Other abnormal blood chemistry; Hypopotassemia Social History Tobacco Use Types Packs/Day Years Used Date Smoking Tobacco: Never Assessed Comments Unknown Sex and Gender Information Value Date Recorded Sex Assigned at Not on file Legal Sex Female 4:12 AM TIER AND DETONATOR Gender Identity Not on file Sexual Orientation Not on file documented as of this encounter Plan of Treatment Not on file documented as of this encounter Visit Diagnoses Diagnosis Type II or unspecified type diabetes mellitus without mention of complication, not stated as uncontrolled- Primary Unspecified essential hypertension Other abnormal blood chemistry Hypopotassemia documented in this encounter Care Teams Pipe Fitter Marine Relationship Specialty Start Date End Date Cesar Mendez MD [address] [facility] [address] [place] [address] PCP - General Family Practice 01/13/20 documented as of this encounter
--- OUTSIDE RECORDS SUMMARY | 2025-07-11 11:45 | XMS_ITS | Encounter Summary ---
Author Organization [facility] Address [address] [place] [address] Care Team Providers Care Meat Stuffer Name Role Phone Cesar Mendez MD Primary Care Provider [phone] Reason for Referral * Radiology Services (Routine) - Closed Specialty Diagnoses / Procedures Referred By George wallace Referred To Contact Radiology Diagnoses Arteriovenous fistula occlusion, initial encounter Procedures IR FISTULOGRAM Wu Clark MD [facility] Interventional Radiology [address] [place] [address] [place] [address] Phone: tel: fax: Referral ID Status Reason Start Date Expiration Date Visits Re quested Visits Authorized [id number] Closed 12/10/2020 01/10/2022 1 1 ICIAN OBSTETRICIAN Encounter Details Date Type Department Care Team (Latest Contact Info) Description 12/10/2020 Ancillary Orders [facility] Interventional Radiology [address] [place] [address] [place] [address] Wu Clark MD NO ADDRESS [...] on file Legal Sex Female 4:12 AM PHYSICIAN OBSTETRICIAN Gender Identity Not on file Sexual Orientation Not on file COVID-19 Exposure Response Date Recorded In the last month, have you been in contact with someone who was confirmed or suspected to have Coronavirus / COVID-19? No / Unsure 12/10/2020 11:46 AM PHYSICIAN OBSTETRICIAN documented as of this encounter Plan of Treatment Not on file documented as of this encounter Results * IR FISTULOGRAM (12/10/2020 3:06 PM PHYSICIAN OBSTETRICIAN) Anatomical Region Laterality Modality X-Ray Angiograph y 12/10/2020 3:06 PM PHYSICIAN OBSTETRICIAN Impressions 12/10/2020 6:48 PM PHYSICIAN OBSTETRICIAN IMPRESSION: Please see below. Exam: Right upper [...] at the arterial limb and a 6 Cape Verdean sheath was placed with its tip directed centrally. A 5 [place]dean straight end hole catheter was advanced over [...] the graft was punctured and a 6 [place]an sheath was placed with its tip directed peripherally. A 5 [place]an Yamileth catheter was advanced over an angled [...] arterial limb access sheath, the indwelling 6 [place]dean sheath was replaced with an 8 Cape Ver[place]an access sheath through which an 8 mm [...] post procedure palpable thrill. Narrative Procedure Note Betsey Serra MD - 12/10/2020 IMPRESSION: Please see [...] at the arterial limb and a 6 Cape Verdean sheath was placed with its tip directed centrally. A 5 [place]an straight end hole catheter was advanced over [...] the graft was punctured and a 6 [place]an sheath was placed with its tip directed peripherally. A 5 [place] Yamileth catheter was advanced over an angled [...] arterial limb access sheath, the indwelling 6 [place]an sheath was replaced with an 8 [place] Verdean access sheath through which an 8 mm [...] encounter documented in this encounter Care Teams Meat Stuffer Relationship Specialty Start Date End Date Cesar Mendez MD [address] [phone] PCP - General Family Practice 01/13/20 documented as of this encounter
--- OUTSIDE RECORDS SUMMARY | 2025-07-11 11:45 | XMS_ITS | Encounter Summary ---
Author Organization [employer] [facility] Address [address] [place] [address] Care Team Providers Care Beer Runner Name Role Phone Cesar Mendez MD Primary Care Provider [phone] Encounter Details Date Type Department Care Team (Latest Contact Info) Description 09/23/2000 Outpatient Historical HIS [facility] Vince Chaney Jr., MD [address] [place] [address] Osteoporosis, unspecified (Primary Dx); Personal history of other disorder of urinary system Social History Tobacco Use Types Packs/Day Years Used Date Smoking Tobacco: Never Assessed Comments Unknown Sex and Gender Information Value Date Recorded Sex Assigned at Not on file Legal Sex Female 4:12 AM STEAM CONDITIONER FILLING Gender Identity Not on file Sexual Orientation Not on file documented as of this encounter Plan of Treatment Not on file documented as of this encounter Visit Diagnoses Diagnosis Osteoporosis, unspecified- Primary Personal history of other disorder of urinary system documented in this encounter Care Teams Beer Runner Relationship Specialty Start Date End Date Cesar Mendez MD [address] [phone] PCP - General Family Practice 01/13/20 documented as of this encounter
--- OUTSIDE RECORDS SUMMARY | 2025-07-11 11:45 | XMS_ITS | Encounter Summary ---
Author Organization [employer] [facility] Address [address] [place] [address] Care Team Providers Care Thimble Press Operator Name Role Phone Cesar Mendez MD Primary Care Provider [phone] Encounter Details Date Type Department Care Team (Latest Contact Info) Description 04/01/2001 Outpatient Historical HIS [facility] Vince Chaney Jr., MD [address] [place] [address] Urinary tract infection, site not specified (Primary Dx); Type II or unspecified type diabetes mellitus without mention of complication, not stated as uncontrolled Social History Tobacco Use Types Packs/Day Years Used Date Smoking Tobacco: Never Assessed Comments Unknown Sex and Gender Information Value Date Recorded Sex Assigned at Not on file Legal Sex Female 4:12 AM SERVICE RIG OPERATOR Gender Identity Not on file Sexual Orientation Not on file documented as of this encounter Plan of Treatment Not on file documented as of this encounter Visit Diagnoses Diagnosis Urinary tract infection, site not specified- Primary Type II or unspecified type diabetes mellitus without mention of complication, not stated as uncontrolled documented in this encounter Care Teams Thimble Press Operator Relationship Specialty Start Date End Date Cesar Mendez MD [address] [facility] [address] [place] [address] PCP - General Family Practice 01/13/20 documented as of this encounter
--- OUTSIDE RECORDS SUMMARY | 2025-07-11 11:45 | XMS_ITS | Encounter Summary ---
Author Organization [employer] [facility] Address [address] [place] [address] Care Team Providers Care Sampler Radioactive Waste Name Role Phone Cesar Mendez MD Primary Care Provider [phone] Encounter Details Date Type Department Care Team (Latest Contact Info) Description 02/12/2000 Outpatient Historical HIS [facility] Vince Chaney Jr., MD [address] [place] [address] Type II or unspecified type diabetes mellitus without mention of complication, not stated as uncontrolled (Primary Dx); Anemia, unspecified; Unspecified hypothyroidism; Other and unspecified hyperlipidemia Social History Tobacco Use Types Packs/Day Years Used Date Smoking Tobacco: Never Assessed Comments Unknown Sex and Gender Information Value Date Recorded Sex Assigned at Not on file Legal Sex Female 4:12 AM ORCHESTRA LEADER Gender Identity Not on file Sexual Orientation Not on file documented as of this encounter Plan of Treatment Not on file documented as of this encounter Visit Diagnoses Diagnosis Type II or unspecified type diabetes mellitus without mention of complication, not stated as uncontrolled- Primary Anemia, unspecified Unspecified hypothyroidism Other and unspecified hyperlipidemia documented in this encounter Care Teams Sampler Radioactive Waste Relationship Specialty Start Date End Date Cesar Mendez MD [address] [facility] 1 [place] [address] PCP - General Family Practice 01/13/20 documented as of this encounter
--- OUTSIDE RECORDS SUMMARY | 2025-07-11 11:45 | XMS_ITS | Encounter Summary ---
Author Organization [facility] Address [address] [place] [address] Care Team Providers Care Wellhead Pumper Name Role Phone Cesar Mendez MD Primary Care Provider [phone] Encounter Details Date Type Department Care Team (Latest Contact Info) Description 08/30/1999 Outpatient Historical [facility] [address] [facility] [address] [place] [address] Nagi Clark MD NO ADDRESS ON FILE Lump or mass in breast (Primary Dx) Social History Tobacco Use Types Packs/Day Years Used Date Smoking Tobacco: Never Assessed Comments Unknown Sex and Gender Information Value Date Recorded Sex Assigned at Not on file Legal Sex Female 4:12 AM SORTER/ASSAY TECH Gender Identity Not on file Sexual Orientation Not on file documented as of this encounter Plan of Treatment Not on file documented as of this encounter Visit Diagnoses Diagnosis Lump or mass in breast- Primary documented in this encounter Care Teams Wellhead Pumper Relationship Specialty Start Date End Date Cesar Mendez MD 8[address] [facility] 1 [place] [phone] PCP - General Family Practice 01/13/20 documented as of this encounter
--- OUTSIDE RECORDS SUMMARY | 2025-07-11 11:45 | XMS_ITS | Encounter Summary ---
Author Organization [employer] [facility] [facility] Address [address] [place] [address] Phone Care Team Providers Care Switchboard And Control Room Operator Name Role Phone Cesar Mendez MD Primary Care Provider [phone] Encounter Details Date Type Department Care Team (Late st Contact Info) Description 07/03/2025 Treatment [facility] [address] [place] [address] Alyx Hayes NP [address] [place] [address] End stage renal disease; Dependence on renal dialysis Social History Tobacco Use Types Packs/Day Years [...] on file documented as of this encounter Miscellaneous Notes * Dialysis Note - Alyx Hayes NP - 07/03/2025 12:00 AM CDT Patient: MARÍA SAAB, 1950, 75y, F Dialysis Location: [facility] Attending Prize Fighter: Debi Montes De Oca Service Date: 07/03/2025 Service Provider: Alyx Hayes NP I met face to face with the patient today. OVERVIEW The patient presented with ESRD on dialysis Primary cause of renal failure: Type 2 diabetes mellitus with diabetic chronic kidney disease Comments: VSS, seen on HD machine Denies changes or new concerns today Continues to struggle with fluid, remains on liquid diet, awaiting dentures. She did fall on and break her left arm/ She is s/p plate placement. Medications and labs reviewed. LAST HOSPITALIZATION Admission Date 06/23/25 DIALYSIS PRESCRIPTION IHD 3x Week Start date: 06/19/25 Dialyzer: 180NRe Optiflux BFR: 450 DFR: Autoflow 2 Potassium: 2.0 Sodium: 138 EDW: 58.6 Duration: 4:00 Calcium: 2.5 Bicarb: 33 Rx updated on: 06/19/2025 TREATMENT ASSESSMENT Comments: Stable Blood pressure controlled. No changes indicated. BP Sit Pre 06/21/2025: 133/28 06/19/2025: 107/83 06/16/2025: 161/64 BP Sit Post 06/21/2025: 158/108 06/19/2025: 144/97 06/16/2025: 149/63 Tx Duration 06/21/2025: 4:36 06/19/2025: 3:57 06/16/2025: 4:05 Missed Treatments 0 - last 30 days 1 - last 60 days 05/15 - recent FLUID ASSESSMENT Comments: Challenge EDW as tolerated. Ed as above about fluid gains. Ed to stop drinking soup. This has worsened after surgery. May be because of plate and arm sling adding to wt. Fluid status not acceptable. Interdialytic weight gain not acceptable. Optimal weight discussed. Diet reviewed with patient. EDW (kg) 06/21/2025: 58.6 06/19/2025: 58.6 06/16/2025: 58.6 Weight Pre (kg) 06/21/2025: 65.0 06/19/2025: 65.9 06/16/2025: 65.8 Weight Post (kg) 06/21/2025: 60.6 06/19/2025: 62.0 06/16/2025: 63.2 PWV (kg) 06/21/2025: 2.0 06/19/2025: 3.4 06/16/2025: 4.6 UF Rate (mL/kg/hr) 06/21/2025: 15.8 06/19/2025: 15.9 06/16/2025: 10.1 ADEQUACY ASSESSMENT Comments: Stable trend. Can not decrease time as does have larger fluid gains. spKt/V, URR 06/14/2025: 1.81, 77.0 06/02/2025: 1.78, 76.0 05/31/2025: 2.0, 80.0 ACCESS ASSESSMENT Access Type: AVFistula Access SubType: Transposed Access Status: Active (In Use) - 12/16/2021 Access Location: Right Upper Arm Created: 01/31/2021 Flow 06/07/2025: 628 04/21/2025: 683 04/03/2025: 597 Vascular access reviewed. Current access is permanent and functioning well. ANEMIA ASSESSMENT Comments: On IV iron and THOMAS protocol. HGB, TSAT 06/21/2025: 8.5, - 06/14/2025: 9.8, 21.0 06/07/2025: 10.0, - Ferritin 04/12/2025: 1443.0 01/11/2025: 1586.0 12/14/2024: 1869.0 Mircera, IVP (mcg) 06/19/2025: 50 06/05/2025: 50 05/08/2025: 75 BMM ASSESSMENT Comments: At goal. PTH, Intact 04/12/2025: 153.0 01/11/2025: 69.0 Calcium, Phosphorus 06/14/2025: 8.9, 5.2 05/10/2025: 8.9, 4.2 04/12/2025: 9.5, 3.5 NUTRITION ASSESSMENT Comments: At goal. Potassium, Albumin 06/14/2025: 3.8, 3.9 05/10/2025: 3.8, 4.0 04/12/2025: 3.8, 4.1 eNPCR 06/14/2025: 0.63 06/02/2025: 0.47 05/22/2025: 0.49 DIAGNOSIS Chief Complaint: N18.6 End stage renal disease Patient data updated 07/03/2025 at 12:32 PM Signed By: Alyx Hayes NP on 07/03/2025 12:35:00 PM documented in this encounter Plan of Treatment Not on file documented as of this encounter Visit Diagnoses Diagnosis End stage renal disease Dependence on renal dialysis documented in this encounter Care Teams Switchboard And Control Room Operator Relationship Specialty Start Date End Date Cesar Mendez MD [address] [place] [address] PCP - General Family Medicine 12/29/18 documented as of this encounter
--- OUTSIDE RECORDS SUMMARY | 2025-07-11 11:45 | XMS_ITS | Encounter Summary ---
Author Organization [email or web address] [facility] Address [address] [place] [address] Care Team Providers Care Acid Conditioner Name Role Phone Cesar Mendez MD Primary Care Provider [phone] Encounter Details Date Type Department Care Team (Latest Contact Info) Description 08/31/2001 Outpatient Historical HIS [facility] Vince Chaney Jr., MD [address] [place] [address] Need vaccination-viral disease (Primary Dx) Social History Tobacco Use Types Packs/Day Years Used Date Smoking Tobacco: Never Assessed Comments Unknown Sex and Gender Information Value Date Recorded Sex Assigned at Not on file Legal Sex Female 4:12 AM STATE 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
--- OUTSIDE RECORDS SUMMARY | 2025-07-11 11:45 | XMS_ITS | Encounter Summary ---
Author Organization [employer] [facility] Address [address] [facility] [facility] [address] [place] [address] Phone Care Team Providers Care Vp Home Health Name Role Phone Cesar Mendez MD Primary Care Provider [phone] Encounter Details Date Type Department Care Team (Late st Contact Info) Description 04/15/2019 Orders Only [place] [facility] [address] [place] [address] Nicholas Rahman ASSEMBLER UNIT [address] [place] [address] Chronic kidney disease stage 4 [...] Glucose 223 mg/dL [facility] eGFR Non-Afr Cymraes 11 [facility] eGFR 14 [facility] Blood specimen (specimen) Venous blood / Unknown 03/21/2019 8:25 AM CDT Narrative [facility] - 03/21/2019 10:26 AM CDT Kwadwo Murray Nicholas Varnerley ASSEMBLER UNIT LAB BLOOD ORDERABLES Final Res ult [facility] documented in this encounter Visit Diagnoses Diagnosis Chronic kidney disease stage 4 (HCC) documented in this encounter Care Teams Vp Home Health Relationship Specialty Start Date End Date Cesar Mendez MD [address] [place] [address] PCP - General Family Medicine 12/29/18 documented as of this encounter
--- OUTSIDE RECORDS SUMMARY | 2025-07-11 11:45 | XMS_ITS | Encounter Summary ---
Author Organization [employer] [facility] Address [address] [place] [address] Care Team Providers Care High School Professional Name Role Phone Cesar Mendez MD Primary Care Provider [phone] Encounter Details Date Type Department Care Team (Latest Contact Info) Description 03/16/2002 Outpatient Historical HIS [facility] Vince Chaney Jr., MD [address] [place] [address] DIABETES UNCOMPL ADULT-TYPE II (CMS/HCC) (Primary Dx); Pure hypercholesterolem; PERS HX OF BREAST MALIGNANCY Social History Tobacco Use Types Packs/Day Years Used Date Smoking Tobacco: Never Assessed Comments Unknown Sex and Gender Information Value Date Recorded Sex Assigned at Not on file Legal Sex Female 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 LOBSTER Gender Identity Not on file Sexual Orientation Not on file documented as of this encounter Plan of Treatment Not on file documented as of this encounter Visit Diagnoses Diagnosis Type II or unspecified type diabetes mellitus without mention of complication, not stated as uncontrolled- Primary Pure hypercholesterolem Pure hypercholesterolemia Personal history of malignant neoplasm of breast documented in this encounter Care Teams High School Professional Relationship Specialty Start Date End Date Cesar Mendez MD [address] [facility] 1 [place] [phone] PCP - General Family Practice 01/13/20 documented as of this encounter
--- OUTSIDE RECORDS SUMMARY | 2025-07-11 11:45 | XMS_ITS | Encounter Summary ---
Author Organization [facility] Address [address] [place] [address] Care Team Providers Care Aoc Director Combat Operations Officer Name Role Phone Cesar Mendez MD Primary Care Provider [phone] Encounter Details Date Type Department Care Team (Latest Contact Info) Description 09/01/2000 Outpatient Historical [facility] [address] [facility] [address] [place] [address] Rajwinder Traylor MD NO ADDRESS ON FILE Other sign and symptom in breast (Primary Dx) Social History Tobacco Use Types Packs/Day Years Used Date Smoking Tobacco: Never Assessed Comments Unknown Sex and Gender Information Value Date Recorded Sex Assigned at Not on file Legal Sex Female 4:12 AM ASSOCIATE PROFESSOR OF LITERATURE Gender Identity Not on file Sexual Orientation Not on file documented as of this encounter Plan of Treatment Not on file documented as of this encounter Visit Diagnoses Diagnosis Other sign and symptom in breast- Primary documented in this encounter Care Teams Aoc Director Combat Operations Officer Relationship Specialty Start Date End Date Cesar Mendez MD [address] [facility] 1 [place] [address] PCP - General Family Practice 01/13/20 documented as of this encounter
--- OUTSIDE RECORDS SUMMARY | 2025-07-11 11:45 | XMS_ITS | Encounter Summary ---
Author Organization [employer] [facility] Address [address] [place] [address] Care Team Providers Care Thread Twister Name Role Phone Cesar Mendez MD Primary Care Provider [phone] Encounter Details Date Type Department Care Team (Latest Contact Info) Description 09/11/1999 Outpatient Historical HIS [facility] Antonio Mathis MD [address] [place] [address] Other specified aftercare following surgery (Primary Dx) Social History Tobacco Use Types Packs/Day Years Used Date Smoking Tobacco: Never Assessed Comments Unknown Sex and Gender Information Value Date Recorded Sex Assigned at Not on file Legal Sex Female 4:12 AM CARPET RENOVATOR Gender Identity Not on file Sexual Orientation Not on file documented as of this encounter Plan of Treatment Not on file documented as of this encounter Visit Diagnoses Diagnosis Other specified aftercare following surgery- Primary documented in this encounter Care Teams Thread Twister Relationship Specialty Start Date End Date Cesar Mendez MD [address] [place] [address] [address] [place] [phone] PCP - General Family Practice 01/13/20 documented as of this encounter
--- OUTSIDE RECORDS SUMMARY | 2025-07-11 11:45 | XMS_ITS | Encounter Summary ---
Author Organization [employer] Address [address] [facility] Attn: [place] [address] Care Team Providers Care Plant Guide Name Role Phone Cesar Mendez MD Primary Care Provider Encounter Details Date Type Department Care Team (Late st Contact Info) Description 09/06/2001 Outpatient Historical Walt Solomon MD [address] [place] [address] Social History Tobacco Use Types Packs/Day Years Used Date Smoking Tobacco: Never Assessed Comments Unknown Sex and Gender Information Value Date Recorded Sex Assigned at Not on file Legal Sex Female 4:12 AM HOTEL OR MOTEL ROOM SERVICE SUPERVISOR Gender Identity Not on file Sexual Orientation Not on file documented as of this encounter Plan of Treatment Not on file documented as of this encounter Visit Diagnoses Not on filedocumented in this encounter Care Teams Plant Guide Relationship Specialty Start Date End Date Cesar Mendez MD [address] [facility] 1 [place] [address] PCP - General Family Practice 01/13/20 documented as of this encounter
--- OUTSIDE RECORDS SUMMARY | 2025-07-11 11:45 | XMS_ITS | Encounter Summary ---
Author Organization [facility] Address [address] [place] [address] Care Team Providers Care Ski Molder Name Role Phone Cesar Mendez MD Primary Care Provider [phone] Encounter Details Date Type Department Care Team (Latest Contact Info) Description 09/02/2000 Outpatient Historical HIS [facility] Vince Chaney Jr., MD [address] [place] [address] Unspecified hypothyroidism (Primary Dx); Type II or unspecified type diabetes mellitus without mention of complication, not stated as uncontrolled; Unspecified essential hypertension Social History Tobacco Use Types Packs/Day Years Used Date Smoking Tobacco: Never Assessed Comments Unknown Sex and Gender Information Value Date Recorded Sex Assigned at Not on file Legal Sex Female 4:12 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 VIDEO GAMES SERVICER Gender Identity Not on file Sexual Orientation Not on file documented as of this encounter Plan of Treatment Not on file documented as of this encounter Visit Diagnoses Diagnosis Unspecified hypothyroidism- Primary Type II or unspecified type diabetes mellitus without mention of complication, not stated as uncontrolled Unspecified essential hypertension documented in this encounter Care Teams Ski Molder Relationship Specialty Start Date End Date Cesar Mendez MD [address] [facility] 1 [place] [address] PCP - General Family Practice 01/13/20 documented as of this encounter
--- OUTSIDE RECORDS SUMMARY | 2025-07-11 11:45 | XMS_ITS ---
Author Organization [facility] Address [address] [place] [address] Phone Care Team Providers Care Anesthesia Technician Name Role Phone Wu Clark MD Primary [...]
--- OUTSIDE RECORDS SUMMARY | 2025-07-11 11:45 | XMS_ITS | Encounter Summary ---
Author Organization [employer] [facility] Address [address] [place] [address] Care Team Providers Care Pleat Patternmaker Name Role Phone Cesar Mendez MD Primary Care Provider [phone] Encounter Details Date Type Department Care Team (Latest Contact Info) Description 09/23/1999 Outpatient Historical HIS [facility] Antonio Mathis MD [address] [place] [address] Other specified aftercare following surgery (Primary Dx) Social History Tobacco Use Types Packs/Day Years Used Date Smoking Tobacco: Never Assessed Comments Unknown Sex and Gender Information Value Date Recorded Sex Assigned at Not on file Legal Sex Female 4:12 AM PRESIDING JUDGE Gender Identity Not on file Sexual Orientation Not on file documented as of this encounter Plan of Treatment Not on file documented as of this encounter Visit Diagnoses Diagnosis Other specified aftercare following surgery- Primary documented in this encounter Care Teams Pleat Patternmaker Relationship Specialty Start Date End Date Cesar Mendez MD [address] [place] [address] 1 [place] [phone] PCP - General Family Practice 01/13/20 documented as of this encounter
--- OUTSIDE RECORDS SUMMARY | 2025-07-11 11:45 | XMS_ITS | Encounter Summary ---
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
--- OUTSIDE RECORDS SUMMARY | 2025-07-11 11:45 | XMS_ITS | Encounter Summary ---
Author Organization [employer] [facility] Address [address] [place] [address] Care Team Providers Care Product Manager Financial Services Name Role Phone Cesar Mendez MD Primary Care Provider [phone] Encounter Details Date Type Department Care Team (Late st Contact Info) Description 07/20/2003 Outpatient [facility] [address] [place], [place] [address] Vince Chaney Jr., MD [address] [place] [address] SCREENING MAMM-MAILG NEOPL-OTHER (Primary Dx) Social History Tobacco Use Types Packs/Day Years Used Date Smoking Tobacco: Never Assessed Comments Unknown Sex and Gender Information Value Date Recorded Sex Assigned at Not on file Legal Sex Female 4:12 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
--- OUTSIDE RECORDS SUMMARY | 2025-07-11 11:45 | XMS_ITS | Encounter Summary ---
Author Organization [employer] [facility] Address [address] [place] [address] Care Team Providers Care Metallurgical Analyst Name Role Phone Cesar Mendez MD Primary Care Provider [phone] Encounter Details Date Type Department Care Team (Latest Contact Info) Description 10/30/1999 Outpatient Historical HIS [facility] Antonio Mathis MD [address] [place] [address] Other specified aftercare following surgery (Primary Dx) Social History Tobacco Use Types Packs/Day Years Used Date Smoking Tobacco: Never Assessed Comments Unknown Sex and Gender Information Value Date Recorded Sex Assigned at Not on file 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
--- OUTSIDE RECORDS SUMMARY | 2025-07-11 11:45 | XMS_ITS | Encounter Summary ---
Author Organization [facility] Address [address] [place] [address] Care Team Providers Care Health Director Name Role Phone Cesar Mendez MD Primary Care Provider [phone] Encounter Details Date Type Department Care Team (Latest Contact Info) Description 06/01/2000 Outpatient Historical [facility] Antonio Mathis MD [address] [place] [address] Personal history of malignant neoplasm of breast (Primary Dx) Social History Tobacco Use Types Packs/Day Years Used Date Smoking Tobacco: Never Assessed Comments Unknown Sex and Gender Information Value Date Recorded Sex Assigned at Not on file Legal Sex Female 4:12 AM HEAD OF COMMISSION DEPARTMENT Gender Identity Not on file Sexual Orientation Not on file documented as of this encounter Plan of Treatment Not on file documented as of this encounter Visit Diagnoses Diagnosis Personal history of malignant neoplasm of breast- Primary documented in this encounter Care Teams Health Director Relationship Specialty Start Date End Date Cesar Mendez MD [address] [facility] 1 [place] [phone] PCP - General Family Practice 01/13/20 documented as of this encounter
--- OUTSIDE RECORDS SUMMARY | 2025-07-11 11:45 | XMS_ITS | Encounter Summary ---
Author Organization [email or web address] Address [address] [place] [address] Care Team Providers Care Rn Behavioral Health Name Role Phone Cesar Mendez MD Primary Care Provider [phone] Encounter Details Date Type Department Care Team (Latest Contact Info) Description 10/03/2002 Outpatient Historical HIS [facility] Vince Chaney Jr., MD [address] [place] [address] DIABETES UNCOMPL ADULT-TYPE II (CMS/HCC) (Primary Dx); HYPERTENSION NOS; HYPOTHYROIDISM NOS; VACCINE FOR INFLUENZA Social History Tobacco Use Types Packs/Day Years Used Date Smoking Tobacco: Never Assessed Comments Unknown Sex and Gender Information Value Date Recorded Sex Assigned at Not on file Legal Sex Female 4:12 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
--- OUTSIDE RECORDS SUMMARY | 2025-07-11 11:45 | XMS_ITS | Encounter Summary ---
Author Organization [facility] Address [address] [place] [address] Care Team Providers Care Laser Printing Operator Name Role Phone Cesar Mendez MD Primary Care Provider [phone] Encounter Details Date Type Department Care Team (Latest Contact Info) Description 09/06/2001 Outpatient Historical [facility] [address] [place] [address] Nagi Clark MD NO ADDRESS ON FILE SYMPTOMS IN BREAST NEC (Primary Dx) Social History Tobacco Use Types Packs/Day Years Used Date Smoking Tobacco: Never Assessed Comments Unknown Sex and Gender Information Value Date Recorded Sex Assigned at Not on file Legal Sex Female 4:12 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
--- OUTSIDE RECORDS SUMMARY | 2025-07-11 11:45 | XMS_ITS | Encounter Summary ---
Author Organization [employer] [facility] Address [address] [place] [address] Care Team Providers Care Grain Mill Products Inspector Name Role Phone Cesar Mendez MD Primary Care Provider [phone] Encounter Details Date Type Department Care Team (Late st Contact Info) Description 09/30/1999 Outpatient Historical HIS [facility] Social History Tobacco Use Types Packs/Day Years Used Date Smoking Tobacco: Never Assessed Comments Unknown Sex and Gender Information Value Date Recorded Sex Assigned at Not on file Legal Sex Female 4:12 AM LEAD CAREGIVER Gender Identity Not on file Sexual Orientation Not on file documented as of this encounter Plan of Treatment Not on file documented as of this encounter Visit Diagnoses Not on filedocumented in this encounter Care Teams Grain Mill Products Inspector Relationship Specialty Start Date End Date Cesar Mendez MD 5 [facility] 1 [place] [phone] PCP - General Family Practice 01/13/20 documented as of this encounter
--- OUTSIDE RECORDS SUMMARY | 2025-07-11 11:45 | XMS_ITS | Encounter Summary ---
Author Organization [employer] [facility] Address [address] [place] [address] Care Team Providers Care Psych Tech Name Role Phone Cesar Mendez MD Primary Care Provider [phone] Encounter Details Date Type Department Care Team (Latest Contact Info) Description 04/22/2001 Outpatient Historical HIS [facility] Vince Chaney Jr., MD [address] [place] [address] Unspecified essential hypertension (Primary Dx); Type II or unspecified type diabetes mellitus without mention of complication, not stated as uncontrolled; Neurogenic bladder, NOS Social History Tobacco Use Types Packs/Day Years Used Date Smoking Tobacco: Never Assessed Comments Unknown Sex and Gender Information Value Date Recorded Sex Assigned at Not on file Legal Sex Female 4:12 AM PRESSURIZER Gender Identity Not on file Sexual Orientation Not on file documented as of this encounter Plan of Treatment Not on file documented as of this encounter Visit Diagnoses Diagnosis Unspecified essential hypertension- Primary Type II or unspecified type diabetes mellitus without mention of complication, not stated as uncontrolled Neurogenic bladder, NOS documented in this encounter Care Teams Psych Tech Relationship Specialty Start Date End Date Cesar Mendez MD 805 [facility] 1 [place] [address] PCP - General Family Practice 01/13/20 documented as of this encounter
--- OUTSIDE RECORDS SUMMARY | 2025-07-11 11:45 | XMS_ITS | Encounter Summary ---
Author Organization [facility] Address [address] [place] [address] Care Team Providers Care Labor Relations Officer Name Role Phone Cesar Mendez MD Primary Care Provider [phone] Encounter Details Date Type Department Care Team (Late st Contact Info) Description 04/05/2003 Outpatient Historical HIS [facility] Vince Chaney Jr., MD [address] [place] [address] Social History Tobacco Use Types Packs/Day Years Used Date Smoking Tobacco: Never Assessed Comments Unknown Sex and Gender Information Value Date Recorded Sex Assigned at Not on file Legal Sex Female 4:12 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
--- OUTSIDE RECORDS SUMMARY | 2025-07-11 11:45 | XMS_ITS | Encounter Summary ---
Author Organization [facility] Address [address] [place] [address] Care Team Providers Care Cargo And Container Inspector Name Role Phone Cesar Mendez MD Primary Care Provider [phone] Encounter Details Date Type Department Care Team (Late st Contact Info) Description 03/05/2001 Outpatient Historical [facility] [place] [address] [facility] [address] [place] [address] Mirian Nj MD NO ADDRESS ON FILE Other sign and symptom in breast (Primary Dx) Social History Tobacco Use Types Packs/Day Years Used Date Smoking Tobacco: Never Assessed Comments Unknown Sex and Gender Information Value Date Recorded Sex Assigned at Not on file 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 1 [place] [address] PCP - General Family Practice 01/13/20 documented as of this encounter
--- OUTSIDE RECORDS SUMMARY | 2025-07-11 11:45 | XMS_ITS | Encounter Summary ---
Author Organization [employer] [facility] [employer] Address [address] [place] [address] Phone Care Team Providers Care Cut Off Machine Helper Name Role Phone Cesar Mendez MD Primary Care Provider [phone] Encounter Details Date Type Department Care Team (Late st Contact Info) Description 12/22/2018 Orders Only [place] [email or web address] [employer] [address] [facility] [address] [place] [address] Diabetes mellitus with renal manifestations [...] (HCC) documented in this encounter Care Teams Cut Off Machine Helper Relationship Specialty Start Date End Date Cesar Mendez MD [address] [place] [address] PCP - General Family Medicine 12/29/18 documented as of this encounter
--- OUTSIDE RECORDS SUMMARY | 2025-07-11 11:45 | XMS_ITS | Encounter Summary ---
Author Organization [employer] [facility] Address [address] [place] [address] Care Team Providers Care Living Coach Name Role Phone Cesar Mendez MD Primary Care Provider [phone] Encounter Details Date Type Department Care Team (Latest Contact Info) Description 01/02/2003 Outpatient Historical HIS [facility] Vince Chaney Jr., MD [address] [place] [address] DIABETES UNCOMPL ADULT-TYPE II (CMS/HCC) (Primary Dx); HYPERTENSION NOS; Pure hypercholesterolem; HEMATURIA Social History Tobacco Use Types Packs/Day Years Used Date Smoking Tobacco: Never Assessed Comments Unknown Sex and Gender Information Value Date Recorded Sex Assigned at Not on file 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 1 [place] [address] PCP - General Family Practice 01/13/20 documented as of this encounter
--- OUTSIDE RECORDS SUMMARY | 2025-07-11 11:45 | XMS_ITS | Encounter Summary ---
Author Organization [facility] [facility] Address [address] [place] [address] Care Team Providers Care Assembler Show Motor Name Role Phone Cesar Mendez MD Primary Care Provider [phone] Encounter Details Date Type Department Care Team (Latest Contact Info) Description 07/03/2000 Outpatient Historical HIS [facility] Vince Chaney Jr., MD [address] [place] [address] Type II or unspecified type [...] file Legal Sex Female 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 CLINICAL RESEARCH ASSOCIATE Gender Identity Not on file Sexual [...] site documented in this encounter Care Teams Assembler Show Motor Relationship Specialty Start Date End Date Cesar Mendez MD [address] [phone] PCP - General Family Practice 01/13/20 documented as of this encounter
--- OUTSIDE RECORDS SUMMARY | 2025-07-11 11:45 | XMS_ITS | Encounter Summary ---
Author Organization [employer] [facility] Address [address] [place] [address] Care Team Providers Care Liquor Store Manager Name Role Phone Cesar Mendez MD Primary Care Provider [phone] Encounter Details Date Type Department Care Team (Latest Contact Info) Description 03/24/2001 Outpatient Historical HIS [facility] Vince Chaney Jr., MD [address] [place] [address] Type II or unspecified type diabetes mellitus without mention of complication, not stated as uncontrolled (Primary Dx); Unspecified essential hypertension; Pure hypercholesterolem; Screening for thyroid disorder Social History Tobacco Use Types Packs/Day Years Used Date Smoking Tobacco: Never Assessed Comments Unknown Sex and Gender Information Value Date Recorded Sex Assigned at Not on file Legal Sex Female 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 HOME Gender Identity Not on file Sexual Orientation Not on file documented as of this encounter Plan of Treatment Not on file documented as of this encounter Visit Diagnoses Diagnosis Type II or unspecified type diabetes mellitus without mention of complication, not stated as uncontrolled- Primary Unspecified essential hypertension Pure hypercholesterolem Pure hypercholesterolemia Screening for thyroid disorder documented in this encounter Care Teams Liquor Store Manager Relationship Specialty Start Date End Date Cesar Mendez MD 805 [facility] 1 [place] [address] PCP - General Family Practice 01/13/20 documented as of this encounter
--- OUTSIDE RECORDS SUMMARY | 2025-07-11 11:45 | XMS_ITS | Encounter Summary ---
Author Organization [facility] Address [address] [place] [address] Care Team Providers Care Equipment Operating Engineer Name Role Phone Cesar Mendez MD Primary Care Provider [phone] Encounter Details Date Type Department Care Team (Latest Contact Info) Description 08/16/1999 Outpatient Historical HIS [facility] Vince Chaney Jr., MD [address] [place] [address] Abn Pap Smear-Cervix (Primary Dx) Social History Tobacco Use Types Packs/Day Years Used Date Smoking Tobacco: Never Assessed Comments Unknown Sex and Gender Information Value Date Recorded Sex Assigned at Not on file Legal Sex Female 4:12 AM HEALTH AND SAFETY DIRECTOR Gender Identity Not on file Sexual Orientation Not on file documented as of this encounter Plan of Treatment Not on file documented as of this encounter Visit Diagnoses Diagnosis Abn Pap Smear-Cervix- Primary Abnormal Papanicolaou smear of cervix and cervical HPV documented in this encounter Care Teams Equipment Operating Engineer Relationship Specialty Start Date End Date Cesar Mendez MD [address] [address] PCP - General Family Practice 01/13/20 documented as of this encounter
--- OUTSIDE RECORDS SUMMARY | 2025-07-11 11:45 | XMS_ITS | Encounter Summary ---
Author Organization [facility] Address [address] [place] [address] Care Team Providers Care Supervisor Assembly Room Name Role Phone Cesar Mendez MD Primary Care Provider [phone] Encounter Details Date Type Department Care Team (Late st Contact Info) Description 09/03/1999 Outpatient Historical [facility] [address] [facility] [address] [place] [address] Mirian Nj MD NO ADDRESS ON FILE Other sign and symptom in breast (Primary Dx) Social History Tobacco Use Types Packs/Day Years Used Date Smoking Tobacco: Never Assessed Comments Unknown Sex and Gender Information Value Date Recorded Sex Assigned at Not on file Legal Sex Female 4:12 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
--- OUTSIDE RECORDS SUMMARY | 2025-07-11 11:45 | XMS_ITS | Encounter Summary ---
Author Organization [facility] Address [address] [place] [address] Care Team Providers Care Podiatry Doctor Name Role Phone Cesar Mendez MD Primary Care Provider [phone] Encounter Details Date Type Department Care Team (Late st Contact Info) Description 03/02/2000 Outpatient Historical [facility] [address] [facility] [address] [place] [address] Mirian Nj MD NO ADDRESS ON FILE Other sign and symptom in breast (Primary Dx) Social History Tobacco Use Types Packs/Day Years Used Date Smoking Tobacco: Never Assessed Comments Unknown Sex and Gender Information Value Date Recorded Sex Assigned at Not on file Legal Sex Female 4:12 AM PATTERN LEASE INSPECTOR Gender Identity Not on file Sexual Orientation Not on file documented as of this encounter Plan of Treatment Not on file documented as of this encounter Visit Diagnoses Diagnosis Other sign and symptom in breast- Primary documented in this encounter Care Teams Podiatry Doctor Relationship Specialty Start Date End Date Cesar Mendez MD [address] [facility] 1 [place] [address] PCP - General Family Practice 01/13/20 documented as of this encounter
--- OUTSIDE RECORDS SUMMARY | 2025-07-11 11:45 | XMS_ITS | Encounter Summary ---
Author Organization [employer] [facility] [facility] Address [address] [place] [address] Care Team Providers Care Press Machine Feeder Name Role Phone Cesar Mendez MD Primary Care Provider [phone] Encounter Details Date Type Department Care Team (Latest Contact Info) Description 05/14/2000 Outpatient Historical HIS [facility] Vince Chaney Jr., MD [address] [place] [address] Type II or unspecified type diabetes mellitus without mention of complication, not stated as uncontrolled (Primary Dx); Unspecified essential hypertension Social History Tobacco Use Types Packs/Day Years Used Date Smoking Tobacco: Never Assessed Comments Unknown Sex and Gender Information Value Date Recorded Sex Assigned at Not on file Legal Sex Female 4:12 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
--- OUTSIDE RECORDS SUMMARY | 2025-07-11 11:45 | XMS_ITS | Encounter Summary ---
Author Organization [facility] Address [address] [place] [address] Care Team Providers Care Huller Operator Name Role Phone Cesar Mendez MD Primary Care Provider [phone] Encounter Details Date Type Department Care Team (Latest Contact Info) Description 02/09/2002 Outpatient Historical HIS [facility] Vince Chaney Jr., MD [address] [place] [address] BACKACHE NOS (Primary Dx); DIABETES UNCOMPL ADULT-TYPE II (CMS/[facility]); HYPERTENSION NOS; AFTERCARE FDC USE MEDICATN Social History Tobacco Use Types Packs/Day Years Used Date Smoking Tobacco: Never Assessed Comments Unknown Sex and Gender Information Value Date Recorded Sex Assigned at Not on file Legal Sex Female 4:12 AM EXTRACTING MACHINE OPERATOR Gender Identity Not on file [...] medications documented in this encounter Care Teams Huller Operator Relationship Specialty Start Date End Date Cesar Mendez MD 8[address] [facility] 1 [place] [address] PCP - General Family Practice 01/13/20 documented as of this encounter
--- OUTSIDE RECORDS SUMMARY | 2025-07-11 11:45 | XMS_ITS | Clinical Summary ---
Author Organization [facility] Address [address] [place] [address] Phone Care Team Providers Care Supervisor Gate Services Name Role Phone Wu Clark MD Primary [...] Active Vit A,C,E-Zinc-Luis er (PreserVision AREDS) 14,320-226-200 okbf-zu-jhpt Capsule Take 1 Tablet by mouth. Active vit B,M-IU-xfio-arianne en-vit D3-E (RenaPlex-D) 800 mcg-12.5 mg -2,000 [...] Data STL ABSTRACTION Provider, Abstract 04/11/2025 Telephone [facility] [place] [address] [address] Sabino Díaz, OD Documentation Only from Last [...] on file Legal Sex Female 9:26 AM BUSINESS SERVICES SPECIALIST SALES Gender Identity Not on file Sexual Orientation [...] 56.7 kg (125 lb) 10/24/2024 11:04 AM BUSINESS SERVICES SPECIALIST SALES Height 160 cm (5' 3 ) 10/24/2024 11:04 AM BUSINESS SERVICES SPECIALIST SALES Body Mass Index 22.14 10/24/2024 11:04 AM BUSINESS SERVICES SPECIALIST SALES Plan of Treatment Health Maintenance Due Date [...] years Discontinued Medical Devices Implanted Type Area Service Crew Leader Device Identifier Shelf Expiration Date Model / Serial / Lot Cath Pd Eric Boone 2cuff 81177-067 - [id number] Implanted:Qty : 1 on 04/26/2019 by Ben Enciso DO Catheter N/A: Abdomen MEDTRONIC - COVIDIEN 11/30/2023 [id number] / / [id number] Cath Dialysis Glidepath 14.5fr 23cm Std [id number] Implanted:Qty : 1 on 12/21/2020 by Robert Castro MD Catheter Right: Chest Wall CR BARD- [employer] [id number] 05/08/2022 [id number] / / [id number] Description:14.5fr x 23cm Gl idePath Dialysis Catheter implanted on right Clip Ligating [facility] [id number] - [facility] - [id number] Implanted:Qty : 1 on 01/31/2021 by Lonnie Sparks MD Clip Right: Arm TELEFLEX- WECK CLOSURE SYS 04/30/2025 [id number] / / [id number] Clip Ligating Horizon Red [id number] - Csc - [id number] Implanted:Qty : 1 on 01/31/2021 by Lonnie Sparks MD Clip Right: Arm TELEFLEX INC 04/30/2025 [id number] / / [id number] Clip Ligating Horizon Red 935650 - Csc - [id number] Implanted:Qty : 1 on 05/09/2021 by Lonnie Sparks MD at [facility] Clip Right: Arm TELEFLEX INC 07/16/2025 [id number] / / [id number] Clip Ligating Horizon Med Ti 241135 - Csc - [id number] Implanted:Qty : 1 on 05/09/2021 by Lonnie Sparks MD at [facility] Clip Right: Arm TELEFLEX- WECK CLOSURE SYS 07/09/2025 [id number] / / [id number] Hemostatic Surgifoam Sz100 1973 - [id number] Implanted:Qty : 1 on 07/04/2020 by Lonnie Sparks MD Hemostatic Right: Arm J[employer]J- [employer] [id number] 02/22/20241973 / / [id number] Covera Flaired Stent-11/30/19 Implanted:Qty : 1 on 11/30/2020 by Betsey Serra MD Stent Right: Arm [id number] 07/06/2022 [id number] / / [id number] 8 X 40mm Covera Covered Stent- Implanted:Qty : 1 on 12/10/2020 by Betsey Serra MD Stent Right: Arm [id number] 05/04/2022 [id number] / / [id number] Description:8 x 40mm Covera Covered Stent implanted in right arm Graft Graft Vasc Propaten 4-1wky06wd [id number] - [id number] Implanted:Qty : 1 on 07/04/2020 by Lonnie Sparks MD Tissue Right: Arm [employer] 01/07/2024 [id number] / / [id number] Explanted Type Area Service Crew Leader Device Identifier Shelf Expiration Date Model / Serial / Lot Hemostatic Surgifoam Sz100 1973 - [id number] Explanted:Qty: 1 on 01/31/2021 by Lonnie Sparks MD Hemostatic Right: Arm J[employer]J- [employer] [id number] 09/06/20241973 / / [id number] Hemostatic Surgifoam Sz100 1973 - [id number] Explanted:Qty: 1 on 05/09/2021 by Lonnie Sparks MD at [facility] Hemostatic Right: Arm J&J- [employer] [id number] 12/06/20241973 / / [id number] Procedures Procedure Name Priority Date/Time Associated Diagnosis Comments COLONOSCOPY REPORT 06/12/2022 12 :49 PM CDT from Last 3 Months or Most Recently Relevant to Health Maintenance Results * COLONOSCOPY REPORT (06/12/2022 12:49 PM CDT) Narrative Procedure Note Kane Kim DO - 06/12/2022 12:48 PM CDT [facility] GI Patient Name: María Saab Procedure Date: [...] Relevant to Health Maintenance Insurance [address] [place] [address] MEDICARE PART A AND [place] [address] * Guarantor: MARÍA SAAB Dieter Account Type Relation to Patient Date of Phone Billing Address Personal/Family [address] [place], [place] [id number] [place] [address] RX [facility] Medicare Part D Advance Directives For more information, please contact: [phone] * Full Code (Latest Code Status on File) Date Activated Date Inactivated Comments 07/19/2022 7:28 PM 07/23/2022 7:37 PM * Full Code Date Activated Date Inactivated Comments 07/10/2022 5:41 PM 07/14/2022 4:37 PM * Full Code Date Activated Date Inactivated Comments 07/10/2022 10:52 AM 07/10/2022 5:40 PM * Full Code Date Activated Date Inactivated Comments 06/12/2022 11:50 AM 06/12/2022 3:14 PM Care Teams Supervisor Gate Services Relationship Specialty Start Date End Date Wu Clark MD PCP - General Nephrology 05/06/22
--- OUTSIDE RECORDS SUMMARY | 2025-07-11 11:45 | XMS_ITS | Encounter Summary ---
Author Organization [facility] Address [address] [place] [address] Care Team Providers Care Inspector Timers Name Role Phone Cesar Mendez MD Primary Care Provider [phone] Encounter Details Date Type Department Care Team (Latest Contact Info) Description 03/13/2000 Outpatient Historical [facility] Vince Chaney Jr., MD [address] [place] [address] Type I (juvenile type) diabetes mellitus without mention of complication, not stated as uncontrolled (CMS/HCC) (Primary Dx); Unspecified essential hypertension; Malignant neoplasm of breast (female), unspecified site Social History Tobacco Use Types Packs/Day Years Used Date Smoking Tobacco: Never Assessed Comments Unknown Sex and Gender Information Value Date Recorded Sex Assigned at Not on file Legal Sex Female 4:12 AM CORROSION CONTROL FITTER Gender Identity Not on file Sexual Orientation [...] site documented in this encounter Care Teams Inspector Timers Relationship Specialty Start Date End Date Cesar Mendez MD [address] [phone] PCP - General Family Practice 01/13/20 documented as of this encounter
--- OUTSIDE RECORDS SUMMARY | 2025-07-11 11:45 | XMS_ITS | Encounter Summary ---
Author Organization [facility] Address [address] [place] [address] Care Team Providers Care Conduit Helper Name Role Phone Cesar Mendez MD Primary Care Provider [phone] Reason for Referral * Radiology Services (Routine) - Closed Specialty Diagnoses / Procedures Referred By Contac t Referred To Contact Diagnoses Chronic kidney disease, stage IV (severe) (CMS/HCC) Procedures US BIOPSY ABDOMEN Wu Clark MD Referral ID Status Reason Start Date Expiration Date Visits Re quested Visits Authorized [id number] Closed 01/04/2019 02/04/2020 1 1 MAKER Encounter Details Date Type Department Care Team (Latest Contact Info) Description 01/04/2019 Ancillary Orders [facility] Ultrasound [address] [place] [phone] Wu Clark MD NO ADDRESS ON FILE Chronic kidney disease, stage IV (severe) (CMS/HCC) Social History Tobacco Use Types Packs/Day Years Used Date Smoking Tobacco: Never Assessed Comments Unknown Sex and Gender Information Value Date Recorded Sex Assigned at Not on file Legal Sex Female 4:12 AM CAGE MAKER Gender Identity Not on file Sexual Orientation Not on file documented as of this encounter Plan of Treatment Not on file documented as of this encounter Results * US BIOPSY ABDOMEN (01/12/2019 1:10 PM CAGE MAKER) Anatomical Region Laterality Modality Abdomen Ultrasound 01/12/2019 1:10 PM CAGE MAKER Impressions 01/12/2019 3:32 PM CAGE MAKER IMPRESSION: Please see below. Date: 01/12/2019 1:10 PM Reason For Exam: See Diagnosis. Diagnosis: Chronic kidney disease, stage IV (severe). Policy Service Coordinator: Dr. Machado Moderate (conscious) sedation for this procedure was performed with continuous physician supervision. Medical history, physical exam, drug dosages, routes of drug administration, monitoring data, and precise times of service are documented in the medical record on the [facility]-approved form, 'Sedative/Analgesic Administration for Diagnostic and Therapeutic Procedures'. Please see nursing flow sheets for dosage and time. PROCEDURE AND FINDINGS: Successful ultrasound guided [place] kidney biopsy. Preliminary pathology report deems the [...] for evaluation. ++++++++++++++++++++ IMPRESSION: Successful ultrasound guided [place] kidney biopsy with results pending. Narrative Procedure Note Yvon Machado MD - 01/12/2019 IMPRESSION: Please see below. Date: 01/12/2019 1:10 PM Reason For Exam: See Diagnosis. Diagnosis: Chronic kidney disease, stage IV (severe). Policy Service Coordinator: Dr. Machado Moderate (conscious) sedation for this procedure was performed with continuous physician supervision. Medical history, physical exam, drug dosages, routes of drug administration, monitoring data, and precise times of service are documented in the medical record on the [facility]-approved form, 'Sedative/Analgesic Administration for Diagnostic and Therapeutic Procedures'. Please see nursing flow sheets for dosage and time. PROCEDURE AND FINDINGS: Successful ultrasound guided [place] kidney biopsy. Preliminary pathology report deems the [...] for evaluation. ++++++++++++++++++++ IMPRESSION: Successful ultrasound guided [place] kidney biopsy with results pending. us Wu Clark MD US ORDERABLES Final Result documented in this encounter Visit Diagnoses Diagnosis Chronic kidney disease, stage IV (severe) (CMS/HCC) Chronic kidney disease, Stage IV (severe) Chronic kidney disease, stage IV (severe) (CMS/HCC) Chronic kidney disease, Stage IV (severe) documented in this encounter Care Teams Conduit Helper Relationship Specialty Start Date End Date Cesar Mendez MD [address] [phone] PCP - General Family Practice 01/13/20 documented as of this encounter
--- OUTSIDE RECORDS SUMMARY | 2025-07-11 11:45 | XMS_ITS | Encounter Summary ---
Author Organization [facility] Address [address] [place] [address] Care Team Providers Care Sales Support Associate Name Role Phone Cesar Mendez MD Primary Care Provider [phone] Encounter Details Date Type Department Care Team (Late st Contact Info) Description 04/05/2003 Outpatient Historical [facility] Vince Chaney Jr., MD [address] [place] [phone] Social History Tobacco Use Types Packs/Day Years Used Date Smoking Tobacco: Never Assessed Comments Unknown Sex and Gender Information Value Date Recorded Sex Assigned at Not on file Legal Sex Female 4:12 AM EQUAL EMPLOYMENT OPPORTUNITY OFFICER Gender Identity Not on file Sexual Orientation Not on file documented as of this encounter Plan of Treatment Not on file documented as of this encounter Visit Diagnoses Not on filedocumented in this encounter Care Teams Sales Support Associate Relationship Specialty Start Date End Date Cesar Mendez MD [address] [facility] [address] [place] [phone] PCP - General Family Practice 01/13/20 documented as of this encounter
--- OUTSIDE RECORDS SUMMARY | 2025-07-11 11:46 | XMS_ITS | Encounter Summary ---
Author Organization [employer] [employer] [facility] Address [address] [place] [address] Care Team Providers Care Suggestion Clerk Name Role Phone Cesar Mendez MD Primary Care Provider [phone] Encounter Details Date Type Department Care Team (Latest Contact Info) Description 06/11/1998 Outpatient Historical [facility] Chris Connelly MD NO ADDRESS ON FILE Backache, unspecified (Primary Dx) Social History Tobacco Use Types Packs/Day Years Used Date Smoking Tobacco: Never Assessed Comments Unknown Sex and Gender Information Value Date Recorded Sex Assigned at Not on file Legal Sex Female 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
--- OUTSIDE RECORDS SUMMARY | 2025-07-11 11:46 | XMS_ITS | Encounter Summary ---
Author Organization [facility] [employer] Address [address] [place] [address] Phone Care Team Providers Care Museum Or Zoo Director Name Role Phone Cesar Mendez MD Primary Care Provider [phone] Reason for Visit * Reason Comments Med Refill Encounter Details Date Type Department Care Team (Late st Contact Info) Description 05/16/2020 [facility]ill [facility] [address] [place] [address] Wu Clark MD [address] [place] [address] Social History Tobacco Use Types [...] on filedocumented in this encounter Care Teams Museum Or Zoo Director Relationship Specialty Start Date End Date Cesar Mendez MD [address] [facility] [address] PCP - General Family Medicine 12/29/18 documented as of this encounter
--- OUTSIDE RECORDS SUMMARY | 2025-07-11 11:46 | XMS_ITS | Encounter Summary ---
Author Organization [facility] Address [address] [place] [address] Phone Care Team Providers Care Forensic Document Examiner Name Role Phone Cesar Mendez MD Primary Care Provider [phone] Reason for Visit * Reason Comments Med Refill Encounter Details Date Type Department Care Team (Late st Contact Info) Description 10/07/2021 Refill [facility] [address] [place] [address] Wu Clark MD [address] [place] [address] Social History Tobacco Use Types [...] on filedocumented in this encounter Care Teams Forensic Document Examiner Relationship Specialty Start Date End Date Cesar Mendez MD [address] [place] [phone] PCP - General Family Medicine 12/29/18 documented as of this encounter
--- OUTSIDE RECORDS SUMMARY | 2025-07-11 11:46 | XMS_ITS | Encounter Summary ---
Author Organization [facility] Address [address] [facility] [address] [place] [address] Phone Care Team Providers Care Yard Jockey Name Role Phone Cesar Mendez MD Primary Care Provider [phone] Encounter Details Date Type Department Care Team (Late st Contact Info) Description 05/18/2019 Orders Only [facility] [address] [place] [address] Nicholas Rahman SUPERVISOR SHIPFITTERS [address] [place] [address] Chronic kidney disease stage 4 [...] blood / Unknown 05/13/2019 9:45 AM CDT [facility] SUPERVISOR SHIPFITTERS LAB BLOOD ORDERABLES Final Res ult [facility] [...] blood / Unknown 05/13/2019 9:45 AM CDT [facility] SUPERVISOR SHIPFITTERS LAB BLOOD ORDERABLES Final Res ult [facility] [...] Unknown 05/13/2019 9:45 AM CDT Nicholas Rahman SUPERVISOR SHIPFITTERS LAB BLOOD ORDERABLES Final Res ult [facility] documented in this encounter Visit Diagnoses Diagnosis Chronic kidney disease stage 4 (HCC) documented in this encounter Care Teams Yard Jockey Relationship Specialty Start Date End Date Cesar Mendez MD [address] [place] [address] PCP - General Family Medicine 12/29/18 documented as of this encounter
--- OUTSIDE RECORDS SUMMARY | 2025-07-11 11:46 | XMS_ITS | Clinical Summary ---
Author Organization [facility] Facility Address [address] [address] Care Team Providers Care Water Gas Operator Name Role Phone Cesar Mendez MD Primary Care Provider [phone] Allergies Active Allergy Reactions Criticality Noted Date [...] Encounters Date Type Department Care Team Description 07/05/2025 Orders Only Chloride [facility] [employer], [facility] [address] [place] [address] Debi Montes De Oca MD 07/03/[address] [place] [address] [employer], [facility] [address] [place] [address] Alyx Hayes NP End stage renal disease; Dependence on renal dialysis 06/21/2025 Orders Only [facility] [employer], [facility] [address] [place] [address] Debi Montes De Oca MD 06/21/2025 Treatment [facility] [employer], [facility] [address] [place] [address] Alyx Hayes NP End stage renal disease; Dependence on renal dialysis 06/19/2025 Treatment [facility] [employer], [facility] [address] [place] [address] Debi Montes De Oca MD End stage renal disease; Dependence on renal dialysis 06/16/2025 Treatment [facility] [employer], [facility] [address] [place] [address] Maryellen Laird NP Chronic obstructive pulmonary disease; Secondary hyperparathyroidism of renal origin; End stage renal disease; Dependence on renal dialysis 06/14/2025 Orders Only [facility], [facility] [address] [place] [address] Debi Montes De Oca MD 06/07/2025 [facility], [facility] [address] [place] [address] Debi Montes De Oca MD 06/02/2025 Orders [facility], [facility] [address] [place] [address] Debi Montes De Oca MD 05/31/2025 Orders [facility], [facility] [address] [place] [address] Debi Montes De Oca MD 05/31/2025 Treatment [facility], [facility] [address] [place] [address] Debi Montes De Oca MD End stage renal disease; Dependence on renal dialysis 05/25/2025 [facility], [facility] [address] [place] [address] Debi Montes De Oca MD 05/22/2025 Orders [facility], [facility] [address] [place] [address] Debi Montes De Oca MD 05/22/2025 Treatment [facility], [facility] [address] [place] [address] Alyx Hayes NP End stage renal disease; Dependence on renal dialysis 05/17/2025 [facility], [facility] [address] [place] [address] Debi Montes De Oca MD 05/17/2025 [facility], [facility] [address] [place] [address] Maryellen Laird NP End stage renal disease; Dependence on renal dialysis 05/10/2025 Orders Only [facility], [facility] [address] [place] [address] Debi Montes De Oca MD 05/10/[address] [place] [address], [facility] [address] [place] [address] Maryellen Laird NP End stage renal disease; Dependence on renal dialysis 05/03/2025 Orders [facility], [facility] [address] [place] [address] Debi Montes De Oca MD 04/26/2025 Orders [facility], [facility] [address] [place] [address] Debi Montes De Oca MD 04/26/2025 Treatment [facility], [facility] [address] [place] [address] Debi Montes De Oca MD End stage renal disease; Dependence on renal dialysis 04/23/2025 [facility]ill [facility], [facility] [address] [place] [address] Debi Montes De Oca MD 04/19/2025 Orders [facility], [facility] [address] [place] [address] Debi Montes De Oca MD 04/17/2025 Treatment [facility], [facility] [address] [place] [address] Alyx Hayes NP End stage renal disease; Dependence on renal dialysis 04/14/2025 [facility], [facility] [address] [place] [address] Debi Montes De Oca MD 04/12/2025 Orders Only [facility], [facility] [address] [place] [address] Debi Montes De Oca MD 04/10/[address] [place] [address] [facility] [address] [place] [address] Alyx Hayes, MIGEL End stage renal disease; [...] Comments Blood Pressure 144/70 01/15/2022 2:57 PM MOTION PICTURE NARRATOR Pulse 70 01/15/2022 2:57 PM MOTION PICTURE NARRATOR Temperature - - Respiratory Rate - - Oxygen Saturation - - Inhaled Oxygen Concentration - - Weight 70.1 kg (154 lb 9.6 oz) 01/15/2022 2:57 P M MOTION PICTURE NARRATOR Height 160 cm (5' 3 ) 01/15/2022 2:57 PM MOTION PICTURE NARRATOR Body Mass Index 27.39 01/15/2022 2:57 PM MOTION PICTURE NARRATOR Plan of Treatment Health Maintenance Due Date [...] Procedure Name Priority Date/Time Associated Diagnosis Comments HEMATOLOGY Routine 07/05/2025 HEMATOLOGY Routine 06/21/2025 [facility] RESULTS Routine 06/14/2025 HD KINETICS Routine 06/14/2025 CHEMISTRY Routine 06/14/2025 [...] 04/12/2025 CHEMISTRY Routine 04/12/2025 HEMATOLOGY Routine 04/12/2025 from Last 3 Months Results * (ABNORMAL) HEMATOLOGY (07/05/2025) Only the most recent of12 resultswithin the time period is included. Hemoglobin 9.7(L) 12.0 - 16.0 g/dL [facility] Hemoglobin x 3 29.1(L) 36.0 - 48.0 % [facility] 07/05/2025 07/06/2025 10: 32 AM CDT V[facility] WORKMAN - 07/06/2025 Unless otherwise specified, test(s) performed at: [facility], [address] [place] [address] PAPER BOX CUTTER: John Treviño M.D. For any questions, please call customer service at FREQUENCY:OTHER Resulting Agency Comment Specimen source: Blood us Debi Montes De Oca MD LAB BLOOD ORDERABLES Final Re sult Performing Organization Address [facility] Co de Phone Number [facility] See order comments or contact performing lab Unknown, [place] * HD KINETICS (06/14/2025) Only the most recent of5 resultswithin the time period is included. % Urea Reduction 77 65 - 80 % [facility] 06/14/2025 06/15/2025 4:1 2 PM CDT Narrative [facility] - 06/15/2025 Unless otherwise specified, test(s) performed at: [facility], [address] [place] [address] PAPER BOX CUTTER: John Treviño M.D. For any questions, please call customer service at FREQUENCY:MONTHLY Resulting Agency Comment Specimen source: Plasma Result Jayson Montes De Oca MD LAB BLOOD ORDERABLES Final Re sult Performing Organization Address [facility] de Phone Number [facility] See order comments or contact performing lab Unknown, [place] * POST CHEMISTRY (06/14/2025) Only the most recent of5 resultswithin the time period is included. BUN Post Dialysis 7 6 - 19 mg/dL [facility] 06/14/2025 06/15/2025 4:1 2 PM CDT Narrative [facility] - 06/15/2025 Unless otherwise specified, test(s) performed at: [facility], [address] [place] [address] PAPER BOX CUTTER: John Treviño M.D. For any questions, please call customer service at FREQUENCY:MONTHLY Resulting Agency Comment Specimen source: Plasma us Debi Montes De Oca MD LAB BLOOD ORDERABLES Final Re sult [facility] See order comments or contact performing lab Unknown, [place] * (ABNORMAL) [facility] (06/14/2025) Only the most recent of9 [...] 06/15/2025 Unless otherwise specified, test(s) performed at: [facility], [address] [place] [id number] PAPER BOX CUTTER: John Treviño M.D. For any questions, please call customer service at FREQUENCY:MONTHLY Resulting Agency Comment Specimen source: Serum Debi Montes De Oca MD LAB BLOOD ORDERABLES Final Re sult [facility] See order comments or contact performing lab Unknown, [place] * [facility] Lab Results (06/14/2025) Only the most recent of5 resultswithin the time period is included. [facility] spKt/V (Daugirdas II) 1.81 [facility] PCR 62.06 [facility] eKt/V Gotch 1.57 [facility] e Center eNPCR 0.63 [facility] WSTDKT/V 2.6 [facility] eKt/V ([place]) 1.59 [facility] spKt/V Gotch 1.80 [facility] nPCR_HD 0.67 [facility] eKdrt/V 1.57 [facility] 06/14/2025 06/14/2025 [facility] Ordering Provider LAB BLOOD ORDERABLES Final Result Performing Organization Address [facility]/ZIP Co de Phone Number [facility] Contact Performing lab Unknown, [place] * (ABNORMAL) SPECIAL CHEMISTRY (04/26/2025) [facility] Hemoglobin A1C 8.9(H) 4.8 - 5.9 % [facility] 04/26/2025 04/27/2025 9:1 4 AM CDT Narrative [facility] - 04/27/2025 Unless otherwise specified, test(s) performed at: [facility], [address] [place], [place] [id number] PAPER BOX CUTTER: John Treviño M.D. For any questions, please call customer service at FREQUENCY:OTHER Resulting Agency Comment Specimen source: Blood Debi Montes De Oca MD LAB BLOOD BANK TEST ORDERABLE S Final Result [facility] See order comments or contact performing lab Unknown, [place] * IMMUNO CHEMISTRY (04/19/2025) Hepatitis B Surface Ab 143 mIU/mL [facility] Comment: The anti-HBs (Hepatitis B surface antibody) is greater than or equal to 10 mIU/mL and implies immunity. The patient has either had an antibody response to HBV vaccination, received a transfusion, or has recovered from HBV infection. For post-vaccination antibody testing guidelines for the general public, refer to MMWR October 31, 2005/Vol.54 (No. 16); -23, and for healthcare workers, refer to MMWR October 28, 2013/Vol.62 (No. 10); 1-18. Reference Range: <10 mIU/mL Non-Immune >=10 mIU/mL Immune The magnitude of the measured result above 10 mIU/mL is not indicative of the total amount of antibody present. 04/19/2025 04/20/2025 11: 50 AM CDT Narrative [facility] - 04/20/2025 Unless otherwise specified, test(s) performed at: [facility], [address] [place] [id number] PAPER BOX CUTTER: John Treviño M.D. For any questions, please call customer service at FREQUENCY:OTHER Resulting Agency Comment Specimen source: Serum Debi Montes De Oca MD LAB BLOOD ORDERABLES Final Re sult [facility] See order comments or contact performing lab Unknown, [place] from Last 3 Months Insurance Medicare [facility] Care Teams Water Gas Operator Relationship Specialty Start Date End Date Cesar Mendez MD [address] [place] [address] PCP - General Family Medicine 12/29/18
--- OUTSIDE RECORDS SUMMARY | 2025-07-11 11:46 | XMS_ITS | Encounter Summary ---
Author Organization [email or web address] Address [address] [place] [address] Care Team Providers Care Magnetic Testing Technician Name Role Phone Cesar Mendez MD Primary Care Provider Encounter Details Date Type Department Care Team (Latest Contact Info) Description 09/27/1998 Outpatient Historical [facility] Fady Jones MD [address] [place] [address] Hypotension, unspecified (Primary Dx); Unspecified hypothyroidism; Dyspepsia and other specified disorders of function of stomach Social History Tobacco Use Types Packs/Day Years Used Date Smoking Tobacco: Never Assessed Comments Unknown Sex and Gender Information Value Date Recorded Sex Assigned at Not on file Legal Sex Female 4:12 AM SOCIAL SERVICES SPECIALIST Gender Identity Not on file Sexual Orientation Not on file documented as of this encounter Plan of Treatment Not on file documented as of this encounter Visit Diagnoses Diagnosis Hypotension, unspecified- Primary Unspecified hypothyroidism Dyspepsia and other specified disorders of function of stomach documented in this encounter Care Teams Magnetic Testing Technician Relationship Specialty Start Date End Date Cesar Mendez MD [address] [facility] [address] [place] [address] PCP - General Family Practice 01/13/20 documented as of this encounter
--- OUTSIDE RECORDS SUMMARY | 2025-07-11 11:46 | XMS_ITS | Encounter Summary ---
Author Organization [employer] [facility] Address [address] [place] [address] Care Team Providers Care Dragline Oiler Name Role Phone Cesar Mendez MD Primary Care Provider [phone] Encounter Details Date Type Department Care Team (Latest Contact Info) Description 08/14/1999 Outpatient Historical 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
--- OUTSIDE RECORDS SUMMARY | 2025-07-11 11:46 | XMS_ITS | Encounter Summary ---
Author Organization [facility] Address [address] [place] [address] Phone Care Team Providers Care Detective Bureau Chief Name Role Phone Cesar Mendez MD Primary Care Provider [phone] Reason for Visit * Reason Comments Med Refill Encounter Details Date Type Department Care Team (Late st Contact Info) Description 10/02/2021 Refill [facility] [address] [place] [address] Wu Clark MD [address] [place] [address] Social History Tobacco Use Types [...] on filedocumented in this encounter Care Teams Detective Bureau Chief Relationship Specialty Start Date End Date Cesar Mendez MD [address] [place] [address] PCP - General Family Medicine 12/29/18 documented as of this encounter
--- OUTSIDE RECORDS SUMMARY | 2025-07-11 11:46 | XMS_ITS | Encounter Summary ---
Author Organization [facility] [employer] [employer] Address [address] [place] [address] Phone Care Team Providers Care Reel Fed Printer Name Role Phone Cesar Mendez MD Primary Care Provider [phone] Encounter Details Date Type Department Care Team (Late st Contact Info) Description 07/05/2025 Orders Only [facility] [address] [place] [address] Debi Montes De Oca MD [address] [place] [address] Social History Tobacco Use Types [...] Date/Time Associated Diagnosis Comments HEMATOLOGY Routine 07/05/2025 documented in this encounter Results * (ABNORMAL) HEMATOLOGY (07/05/2025) Hemoglobin 9.7(L) 12.0 - 16.0 g/dL [facility] Hemoglobin x 3 29.1(L) 36.0 - 48.0 % [facility] 07/05/2025 07/06/2025 10: 32 AM CDT Narrative [facility] - 07/06/2025 Unless otherwise specified, test(s) performed at: [facility], [address] [place] [address] PUMP TENDER: John Treviño M.D. For any questions, please call [employer] service at FREQUENCY:OTHER Resulting Agency Comment Specimen source: Blood us Debi Montes De Oca MD LAB BLOOD ORDERABLES Final Re sult [facility] See order comments or contact performing lab Unknown, [place] documented in this encounter Visit Diagnoses Not on filedocumented in this encounter Care Teams Reel Fed Printer Relationship Specialty Start Date End Date Cesar Mendez MD [address] [place] [address] PCP - General Family Medicine 12/29/18 documented as of this encounter
--- OUTSIDE RECORDS SUMMARY | 2025-07-11 11:46 | XMS_ITS | Encounter Summary ---
Author Organization [facility] [employer] Address [address] [place] [address] Phone Care Team Providers Care Rumper Name Role Phone Cesar Mendez MD Primary Care Provider [phone] Reason for Visit * Reason Comments Med Refill Encounter Details Date Type Department Care Team (Late st Contact Info) Description 05/28/2020 Refill [facility] [address] [place] [address] Wu Clark MD [address] [place] [address] Social History Tobacco Use Types [...] on filedocumented in this encounter Care Teams Rumper Relationship Specialty Start Date End Date Cesar Mendez MD [address] [place] [address] PCP - General Family Medicine 12/29/18 documented as of this encounter
[2025-07-11 12:44] VITALS: BP 141/95; PULSE 77; RESP 16; O2SAT 97
--- NOTE | 2025-07-11 12:49 | CT_ITS ---
WS: [id number] CT HEAD NONCONTRAST HISTORY: severe, new sudden onset CARRILLO TECHNIQUE: Contiguous axial imaging performed through the brain. Bone and soft tissue windows. Sagittal and coronal reformats reviewed. All CT scans at [facility] use at least one of these dose optimization techniques: automated exposure control; mA and/or kV adjustment per patient size (includes targeted exams where dose is matched to clinical indication); or iterative reconstruction. DLP: 1100.18 mGy.cm COMPARISON: 04/16/2023 No acute intracranial hemorrhage, midline shift or mass effect. Mild cerebral and cerebellar atrophy. Mild small vessel disease. Reidentified is the high density extra-axial mass over the LEFT parietal vertex measuring 2.0 x 2.0 x 2.2 cm. Mass has been previously described and consistent with a meningioma. Ventricles: Normal size with no hydrocephalus. Paranasal sinuses: As visualized are clear. Mastoid air cells: Small amount of fluid in the LEFT mastoid air cell. Calvarium and scalp: Skull is intact with no soft tissue edema or swelling. Increased density in the RIGHT globe. May be from a ruptured globe, retinal detachment, mass or hemorrhage. New since 04/16/2023. CT/CT head wo con* [id number] IMPRESSION: 1. No acute intracranial hemorrhage or edema. 2. Mild cerebral and cerebellar atrophy and small vessel disease. 3. Abnormal RIGHT globe with increased density. New since 04/16/2023. Differenti al includes retinal detachment, hemorrhage, mass or globe rupture.
[2025-07-11 13:01] VITALS: BP 149/109; PULSE 71; RESP 16; O2SAT 94
--- NOTE | 2025-07-11 13:08 | PC.NURSE ---
PORT ACCESSED ON LEFT CHEST BY THIS NURSE. PATIENT TOLERATED PROCEDURE WELL.
--- NOTE | 2025-07-11 13:08 | W.ED.GENADLT ---
HPI - General Adult General: Chief complaint: Nausea/Vomiting/Diarrhea Stated complaint: chills, v/n pain all over Time Seen by Provider: 07/11/25 12:11 History of Present Illness: Patient is a 75-year-old female presenting with a chief complaint of sudden onset headache this morning that was severe at onset, 10+ out of 10, now spontaneously improved to 7/10. 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 Patient denies any confusion, difficulty with speech, swelling, facial asymmetry, focal numbness or weakness. She has not experienced chest pain, shortness of breath or abdominal pain though she has been feeling nauseated and has vomited. She had a normal bowel movement in the last couple of days without blood. Patient is on hemodialysis which she last completed yesterday with success. She has an AV fistula in the right upper extremity. Patient still makes a small amount of urine but has not noticed discomfort with urination. She does not have a history of intracranial hemorrhage or stroke. Patient is not on blood thinners. Related Data Home Medications ?Medication ?Instructions ?Recorded ?Confirmed amitriptyline 100 mg tablet 100 mg PO BEDTIME 10/02/20 07/11/25 tamsulosin 0.4 mg capsule 0.4 mg PO QAM 07/18/22 07/11/25 ropinirole 1 mg tablet 1 mg PO BEDTIME 02/27/23 07/11/25 vit B,C-folic ac 800 mcg-zinc 12.5 1 tab PO QAM 02/27/23 07/11/25 mg-selen-D3 2,000 unit-vit E tablet (RenaPlex-D) folic acid 0.8 mg-vit B comp with 1 tab PO QAM 08/29/23 07/11/25 O-yatm-mowiakz D3 2,000 unit tablet (Dialyvite 800-Ultra D) ferric citrate 210 mg iron tablet 1 tab PO TID 12/27/24 07/11/25 (Auryxia) gabapentin 100 mg capsule 100 mg PO BEDTIME 12/27/24 07/11/25 levothyroxine 200 mcg tablet 200 mcg PO DAILY 06/22/25 07/11/25 furosemide 80 mg tablet 80 mg PO BID 07/11/25 07/11/25 glipizide 5 mg tablet 5 mg PO TID 07/11/25 07/11/25 hydrocodone 5 mg-acetaminophen 325 1 tab PO Q8H PRN Pain 07/11/25 07/11/25 mg tablet prednisolone acetate 1 % eye 1 drp ophthalmic (eye) QID 07/11/25 07/11/25 drops,suspension Previous Rx's ?Medication ?Instructions ?Recorded flash glucose scanning reader #1 ea 12/15/22 (FreeStyle Anita 2 Rittman) flash glucose sensor (FreeStyle #3 ea 12/15/22 Anita 2 Sensor kit) wheel chair #1 ea 04/30/23 denosumab 60 mg/mL subcutaneous 60 mg SUBCUT .a5uewtld #1 mL 06/11/24 syringe (Prolia) levothyroxine 25 mcg tablet 25 mcg PO DAILY #90 tabs 06/09/25 (Synthroid) aspirin 81 mg tablet,delayed 81 mg PO Q24H 30 days #30 tabs 06/30/25 release atorvastatin 40 mg tablet 40 mg PO BEDTIME 30 days #30 tabs 06/30/25 midodrine 5 mg tablet 10 mg (2 x 5 mg) PO Q8H 30 days 06/30/25 #180 tabs Sling #1 ea 07/06/25 Allergies Allergy/AdvReac Type Severity Reaction Status Date / Time Penicillins Allergy Mild ALGY-Rash Verified 07/11/25 11:52 propoxyphene (From Darvon) Allergy Mild ALGY-Rash Verified 07/11/25 11:52 codeine Allergy ALGY-Rash Verified 07/11/25 11:52 [facility] ED PFSH: Medical History (Updated 07/11/25 @ 15:04 by Molly Padilla MD) Lower GI bleed requiring more than 4 units of blood in 24 hours, ICU, or surgery (07/2022) Abdominal bloating SOB (shortness of breath) Spondylolisthesis at L4-L5 level Compression fracture of L4 vertebra Compression fracture of thoracic vertebra Cerebellar stroke syndrome Incomplete bladder emptying Hydronephrosis Ureteral obstruction, right HX OF RIGHT URETEROSCOPY WITH STENT PLACEMENT Obstructive pyelonephritis Kidney stones Hemodialysis patient Chronic kidney disease (CKD) Pleural effusion on right Microcytic anemia Type 2 diabetes mellitus Hx of breast cancer History of peritoneal dialysis HTN (hypertension) Hyperlipidemia Hypothyroidism Cataract Closed fracture of left proximal humerus Surgical History History of cholecystectomy S/P hemodialysis catheter insertion Right IJ: Removed History of surgery Right-sided pleurodesis and Pleurx catheter placement S/P dialysis catheter insertion Peritoneal dialysis catheter placement x3 according to patient, revisions had to be performed in [facility] at an outside facility Hemodialysis catheter placement Hx of cataract surgery Hx of tonsillectomy H/O tubal ligation History of surgery on arm H/O skin graft History of lumpectomy of left breast H/O knee surgery History of kidney surgery Family History Mother Stroke Father Stroke Social History Smoking and tobacco/nicotine status: unknown if used tobacco/nicotine Alcohol intake: never Substance/Drug Use: never Lives independently: Yes Household members: spouse Marital status: Current occupational status: employed Do you think of yourself as: Straight/Heterosexual Current gender identity: Female Physical Exam Narrative: EXAM NARRATIVE: Vital signs were reviewed. Patient is alert and oriented. No meningeal signs. She does not have a lens in the R eye though it is injected (new). R pupil is reactiive, conjunctiva clear. EOMI. no facial asymmetry, speech is clear. Patient has no unilateral motor deficits or sensory deficits. She is able to perform gbtlhh-ksjf-asjvhb testing. Patient is breathing comfortably, no increased WOB or accessory muscle use. SpO2 is above 95% on RA. Patient has a heart murmur. No hypotension or tachycardia. Patient has a soft, nondistended nontender abdomen. Patient is moving all extremities, no deformity or gross injury. Course Vital Signs: Vital signs: Vital Signs Temperature 97.5 F L 07/11/25 11:45 Pulse Rate 86 07/11/25 14:11 Respiratory Rate 16 07/11/25 13:01 Blood Pressure 149/109 07/11/25 13:01 Pulse Oximetry 94 07/11/25 13:01 Oxygen Delivery Me thod Room Air 07/11/25 13:01 MDM - General Adult Medical Decision Making 75-year-old female with a chief complaint of right sided sudden onset headache that has continuously improved to 7 out of 10 in severity, associated nausea and vomiting. Patient does not report a history of headaches. She is on hemodialysis. Differential diagnose includes but is limited to, SAH, temporal arteritis, migraine, tension headache, underlying viral syndrome/illness, ocular pathology such as acute angle glaucoma. I do not appreciate any obvious neurologic deficits on my exam. Patient has IOP in R eye of 14 and 12 in L eye. Patient was evaluated with lab work including CBC, CMP, ESR, CRP, CT head. She was treated with IV Tylenol and Compazine. Patient has a normal white blood cell count. Patient's ESR is within normal limits. This lowers my suspicion for temporal arteritis. On reassessment, patient states her headache has decreased to [address] scan does not show acute findings. Regarding patient's eye, she does not have any vision in that eye anyway and was advised to follow-up with Dr. Montes De Oca within the next day or 2. She states she would be able to do that. Patient is comfortable and feeling well enough to go home. She did request pain medication and gabapentin for restless leg, was treated with IV Toradol and p.o. gabapentin. Patient was counseled on supportive care at home, given return precautions and discharged in stable condition. Lab Data 07/11/25 14:02 07/11/25 14:[address] 07/11/25 12:49 IMPRESSION: 1. No acute intracranial hemorrhage or edema. 2. Mild cerebral and cerebellar atrophy and small vessel disease. 3. Abnormal RIGHT globe with increased density. New since 04/16/2023. Differential includes retinal detachment, hemorrhage, mass or globe rupture. Laboratory Results WBC 6.96 10^3/uL (3.29-11.43) 07/11/25 14:02 RBC 3.21 10^6/uL (3.85-5.65) L 07/11/25 14:02 Hgb 9.60 g/dL (11.27-16.99) L 07/11/25 14:02 Hct 30.6 % (36-47) L 07/11/25 14:02 MCV 95.3 fl (85-98) 07/11/25 14:02 MCH 29.9 pg (27-33) 07/11/25 14:02 MCHC 31.4 g/dL (30-55) 07/11/25 14:02 RDW 21.2 % (12.1-15.1) H 07/11/25 14:02 Plt Count 149 10^3/cmm (157-399) L 07/11/25 14:02 MPV 11.6 fL (7.4-10.4) H 07/11/25 14:02 Neut % (Auto) 85.9 % 07/11/25 14:02 Lymph % (Auto) 6.3 % 07/11/25 14:02 Swain % (Auto) 6.2 % 07/11/25 14:02 Eos % (Auto) 0.3 % 07/11/25 14:02 Baso % (Auto) 0.6 % 07/11/25 14:02 Neut # (Auto) 5.98 10^3/uL (1.8-7.7) 07/11/25 14:02 Lymph # (Auto) 0.4 10^3/uL (0.8-4.8) L 07/11/25 14:02 Swain # (Auto) 0.4 10^3/uL (0.2-0.9) 07/11/25 14:02 Eos # (Auto) 0.0 10^3/uL (0.0-0.8) 07/11/25 14:02 Baso # (Auto) 0.0 10^3/uL (0.0-0.1) 07/11/25 14:02 Nucleated RBC % (auto) 0 % 07/11/25 14:02 Nucleated RBCs # 0.0 /100WBC 07/11/25 14:02 ESR 7 mm/hr (0-15) 07/11/25 14:02 Sodium 133 mmol/L (136-145) L 07/11/25 14:02 Potassium 3.6 mmol/L (3.5-5.1) 07/11/25 14:02 Chloride 92 mmol/L (98-107) L 07/11/25 14:02 Carbon Dioxide 26 mmol/L (22-29) 07/11/25 14:02 Anion Gap 18.6 (5-19) 07/11/25 14:02 BUN 22 mg/dL (8-23) 07/11/25 14:02 Creatinine 2.8 mg/dL (0.5-0.9) H 07/11/25 14:02 GFR Calculation Not Reportable 07/11/25 14:02 Glucose 213 mg/dL (65-115) H 07/11/25 14:02 Calculated Osmolality 286 mOsm/kg (285-295) 07/11/25 14:02 Calcium 7.8 mg/dL (8.5-10.5) L 07/11/25 14:02 Total Bilirubin 1.2 mg/dL (0.15-1.2) 07/11/25 14:02 AST 15 U/L (0-32) 07/11/25 14:02 ALT 10 U/L (0-33) 07/11/25 14:02 Alkaline Phosphatase 116 U/L (35-105) H 07/11/25 14:02 Total Protein 6.8 g/dL (6.6-8.7) 07/11/25 14:02 Albumin 3.9 g/dL (3.5-5.2) 07/11/25 14:02 Globulin 2.9 g/dL (1.3-4.6) 07/11/25 14:02 Lipase 31 U/L (13-60) 07/11/25 14:02 All radiology interpretation(s) finalized by discharge Discharge Plan Discharge Patient Disposition: Home Clinical Impression: Headache above the eye region Condition: Stable Prescriptions: No Action amitriptyline 100 mg tablet 100 mg PO BEDTIME (DME) FreeStyle Anita 2 Rittman Misc See Rx Instructions .Route Qty: 1 0RF Rx Instructions: check blood sugar (DME) FreeStyle Anita 2 Sensor Kit See Rx Instructions .Route Qty: 3 3RF Rx Instructions: check blood sugar (DME) wheel chair See Rx Instructions .Route .MEDSUPPLY Qty: 1 0RF Rx Instructions: As directed (DME) Sling See Rx Instructions .Route .MEDSUPPLY Qty: 1 0RF Rx Instructions: As directed Prolia 60 mg/mL syringe 60 mg SUBCUT .d5utbeah Qty: 1 0RF Rx Instructions: at infusions levothyroxine [Synthroid] 25 mcg tablet 25 mcg PO DAILY Qty: 90 1RF Rx Instructions: Along with 200mcg [id number] total tamsulosin 0.4 mg capsule 0.4 mg PO QAM ropinirole 1 mg tablet 1 mg PO BEDTIME RenaPlex-D 800 mcg-12.5 mg -2,000 unit tablet 1 tab PO QAM hydrocodone-acetaminophen 5-325 mg tablet 1 tab PO Q8H PRN (Reason: Pain) prednisolone acetate 1 % drops,suspension 1 drp ophthalmic (eye) QID furosemide 80 mg tablet 80 mg PO BID glipizide 5 mg tablet 5 mg PO TID Dialyvite 800-Ultra D 0.8-2,000 mg-unit tablet 1 tab PO QAM gabapentin 100 mg capsule 100 mg PO BEDTIME ferric citrate [Auryxia] 210 mg iron tablet 1 tab PO TID levothyroxine 200 mcg tablet 200 mcg PO DAILY Rx Instructions: Along with 25mcg [id number] total atorvastatin 40 mg Tablet 40 mg PO BEDTIME 30 Days Qty: 30 0RF midodrine 5 mg Tablet 10 mg PO Q8H 30 Days Qty: 180 0RF aspirin 81 mg Tablet,Delayed Release (Dr/Ec) 81 mg PO Q24H 30 Days Qty: 30 0RF Discharge Orders: Discharge ED (Routine); Ordered 07/11/25 Ordered By: Molly Padilla Referrals: Cesar Mendez MD [Primary Care Provider, Family Practice] Patient Instructions: Opioid Safety, Pain Management, Patient Portal & Maisha Instructions Print Language: Slovak Coding Level of Care Code ED Labor Economics Teacher for Supriya Byers
[2025-07-11] MEDS: acetaminophen 1,000 MG/100 ML PIGGYBACK 400 MG IV (13:15)
[2025-07-11 13:46] VITALS: PULSE 89
[2025-07-11 14:11] VITALS: PULSE 86
[2025-07-11 14:12] LABS: Hematocrit 30.6 % (36-47); Hemoglobin 9.60 g/dL (11.27-16.99); Mean Corpuscular HGB Conc 31.4 g/dL (30-55); Mean Corpuscular Hemoglobin 29.9 pg (27-33); Mean Corpuscular Volume 95.3 fl (85-98); Nucleated Red Blood Cells % 0 %; Platelet Count 149 10^3/cmm (157-399); Red Blood Count 3.21 10^6/uL (3.85-5.65); White Blood Count 6.96 10^3/uL (3.29-11.43)
[2025-07-11 14:30] LABS: Alanine Aminotransferase 10 U/L (0-33); Albumin Level 3.9 g/dL (3.5-5.2); Alkaline Phosphatase 116 U/L (35-105); Anion Gap 18.6 (5-19); Aspartate Amino Transferase 15 U/L (0-32); Blood Urea Nitrogen 22 mg/dL (8-23); Calcium 7.8 mg/dL (8.5-10.5); Carbon Dioxide 26 mmol/L (22-29); Chloride 92 mmol/L (98-107); Creatinine Clr Calc Pharmacy 14.4238; Globulin 2.9 g/dL (1.3-4.6); Glucose 213 mg/dL (65-115); Lipase 31 U/L (13-60); Osmolality Calculated 286 mOsm/kg (285-295); Potassium 3.6 mmol/L (3.5-5.1); Sodium 133 mmol/L (136-145); Total Protein 6.8 g/dL (6.6-8.7)
[2025-07-11 15:06] LABS: CRP High Sensitivity Cardiac 3.840 mg/dL (0.0-0.3)
[2025-07-11 15:38] VITALS: PULSE 91; RESP 17; O2SAT 98
== END 2025-07-11 15:39 | disposition home or self-care (01) ==
PROVIDERS: Emergency Medicine; Emergency Provider Emergency Medicine; PCP Family Medicine
DX: R51.9 Headache, unspecified (principal); Z79.82 Long term (current) use of aspirin; E78.5 Hyperlipidemia, unspecified; I12.9 Hypertensive chronic kidney disease with stage 1 through stage 4 chronic kidney disease, or unspecified chronic kidney disease; E11.22 Type 2 diabetes mellitus with diabetic chronic kidney disease; N18.9 Chronic kidney disease, unspecified; Z85.3 Personal history of malignant neoplasm of breast
CPT/HCPCS: 70450; 80053; 83690; 85025; 85651; 86141; 96374; 96375; 99285; J0131; J0780; J1885; J9999

== ENCOUNTER → 2025-07-13 08:48 | Outpatient (BNVA) | payer MEDICARE, OTHER, SELFPAY | PROVIDERS: PCP Family Medicine; Visit Provider Orthopaedic Surgery | DX: Z98.890 Other specified postprocedural states (principal) | CPT/HCPCS: 73030; 73060; 99024 ==

== ENCOUNTER 2025-07-17 14:22 | Outpatient (CLI) | payer MEDICARE, OTHER, SELFPAY ==
--- NOTE | 2025-07-17 14:30 | XR_ITS ---
WS: [id number] DEXA (DUAL ENERGY X-RAY ABSORPTIOMETRY) Bone mineral density was performed using a [employer] machine. HISTORY: see below COMPARISON: 07/07/2023 Lumbar spine BMD (L1-L4): 1.109 g/cm2 T score: -0.6 Z score: 1.5 Left forearm BMD: 0.700 g/cm2. T score: -2.0 Z score: 0.4 Compared to the prior study from 07/07/2023. Lumbar spine bone mineral density has decreased by 0.1%. Bilateral hips bone mineral density has decreased by 10.0%. XR/XR DEXA axial skeleton* 34326 IMPRESSION: OSTEOPENIA based upon the WHO classification for females. Significant decrease in bone mineral density within the forearm since the prior study.
== END 2025-07-17 14:23 | disposition home or self-care (01) ==
LOC: RAD 14:23
PROVIDERS: PCP Family Medicine; Visit Provider Internal Medicine
DX: I95.9 Hypotension, unspecified (principal); E03.9 Hypothyroidism, unspecified; N18.6 End stage renal disease; E11.9 Type 2 diabetes mellitus without complications; E11.319 Type 2 diabetes mellitus with unspecified diabetic retinopathy without macular edema; E11.40 Type 2 diabetes mellitus with diabetic neuropathy, unspecified; M85.80 Other specified disorders of bone density and structure, unspecified site
CPT/HCPCS: 77080

== ENCOUNTER → 2025-07-20 13:34 | Outpatient (BNVA) | payer MEDICARE, OTHER, SELFPAY | PROVIDERS: PCP Family Medicine; Visit Provider Orthopaedic Surgery | DX: Z98.890 Other specified postprocedural states (principal) | CPT/HCPCS: 73030; 73060; 99024 ==

== ENCOUNTER → 2025-08-03 14:12 | Outpatient (BNVA) | payer MEDICARE, OTHER, SELFPAY | PROVIDERS: PCP Family Medicine; Visit Provider Orthopaedic Surgery | DX: Z98.890 Other specified postprocedural states (principal) | CPT/HCPCS: 73060; 99024 ==

== ENCOUNTER → 2025-08-08 11:23 | Outpatient (BNVA) | payer MEDICARE, OTHER, SELFPAY | PROVIDERS: PCP Family Medicine; Visit Provider Internal Medicine | DX: E11.65 Type 2 diabetes mellitus with hyperglycemia (principal); E03.9 Hypothyroidism, unspecified; E11.22 Type 2 diabetes mellitus with diabetic chronic kidney disease; N18.6 End stage renal disease; E16.0 Drug-induced hypoglycemia without coma; T38.3X5A Adverse effect of insulin and oral hypoglycemic [antidiabetic] drugs, initial encounter; E11.319 Type 2 diabetes mellitus with unspecified diabetic retinopathy without macular edema; E11.40 Type 2 diabetes mellitus with diabetic neuropathy, unspecified; I95.9 Hypotension, unspecified; X58.XXXA Exposure to other specified factors, initial encounter | CPT/HCPCS: 99214 ==

== ENCOUNTER 2025-09-17 12:10 | Emergency (ER) | payer MEDICARE, OTHER, SELFPAY ==
--- OUTSIDE RECORDS SUMMARY | 2024-07-14 09:00 | XMS_ITS ---
Author Organization [facility] Address [address] [place] [address] Care Team Providers Care Zigzag Elastic Attacher Name Role Phone Andrea MONACO, Cesar Primary Care Provider Sin Cruz Unavailable [phone] Simran Strong Unavailable [phone] REASON FOR VISIT EGD Consult Encounters Encounter Location Date Provider Diagnosis [facility] [address] [place] [address] 07/14/2024 Simran Strong Plan Of Treatment No Information Progress Notes * Mg FLORESaDOB:1950 (75 yo F)Acc No.[id number]:07/14/2024 Progress Notes Patient: María Jaquez Provider: Angie Strong APRN :1950 A ge:74 Y S ex:Female Date:07/14/2024 Address:[address] [place], [place] [id number] Pcp:Cesar Mendez MD Subjective: * Chief Complaints: * E GD Consult Care Plan Details* * Electronic signature of Simran Strong APRN on 09/17/2025 at 12:16 PM ENGINEER SYSTEMS Sign off status: Pending * Provider: Angie Strong APRN Date: 0 07/14/2024 Generated for Ricci norris/Rhys/eTransmitting on: 11/17/2024 12:16 PM ENGINEER SYSTEMS
--- OUTSIDE RECORDS SUMMARY | 2024-07-26 04:45 | XMS_ITS ---
Author Organization [facility] Address [address] [place] [address] Care Team Providers Care Publicity Writer Name Role Phone Andrea MONACO, Cesar Primary Care Provider Sin Cruz Unavailable [phone] Tia Hsieh Unavailable [phone] REASON FOR VISIT Chronic diastolic heart failure per Dr. Mendez- 06/23/24 Encounters Encounter Location Date Provider Diagnosis [facility] [address] [place] [id number] 07/26/2024 Tia Hsieh Plan Of Treatment No Information Progress Notes * Mg SAABaDOB:1950 (75 yo F)Acc No.[id number]:07/26/2024 Progress Notes Patient: María Jaquez Provider: Dorene Hsieh MD :1950 A ge:74 Y S ex:Female Date:07/26/2024 Address:[address] [place], [place] [id number] Pcp:Cesar Mendez MD Subjective: * Chief Complaints: * C hronic diastolic heart failure per Dr. Mendez- 06/23/24 Billing Information: * Procedure Codes: * Electronic signature of Kusum Hsieh MD on 09/17/2025 at 12:16 PM ASSOCIATE PROFESSOR OF ARCHAEOLOGY Sign off status: Pending * Provider: Dorene Hsieh MD Date: 0 07/26/2024 Generated for Printi ng/Fayonig/eTransmitting on: 1 11/17/2024 12:16 PM ASSOCIATE PROFESSOR OF ARCHAEOLOGY
--- OUTSIDE RECORDS SUMMARY | 2024-09-06 07:30 | XMS_ITS ---
Author Organization [facility] Address [address] [place] [address] Care Team Providers Care Wheel And Axle Inspector Name Role Phone Andrea MONACO, Cesar Primary Care Provider Sin Cruz Unavailable [phone] Simran Strong Unavailable [phone] REASON FOR VISIT EGD Consult Encounters Encounter Location Date Provider Diagnosis [facility] [address] [place] [address] 09/06/2024 Simran Strong Plan Of Treatment No Information Progress Notes * Mg FLORESaDOB:1950 (75 yo F)Acc No.[id number]:09/06/2024 Progress Notes Patient: María Jaquez Provider: Angie Strong APRN :1950 A ge:74 Y S ex:Female Date:09/06/2024 Address:[address] [place], [place] [id number] Pcp:Cesar Mendez MD Subjective: * Chief Complaints: * E GD Consult Billing Information: * Procedure Codes: Care Plan Details* * Electronic signature of Simran Strong APRN on 09/17/2025 at 12:15 PM BI TRI OPERATOR Sign off status: Pending * Provider: Angie Strong APRN Date: Generated for Ricci ng/Fayonig/eTransmitting on: 11/17/2024 12:15 PM BI TRI OPERATOR
--- OUTSIDE RECORDS SUMMARY | 2025-09-17 12:15 | XMS_ITS | Encounter Summary ---
Author Organization [employer] Address [address] [facility] Attn: [place] [address] Care Team Providers Care Student Services Advisor Name Role Phone Cesar Mendez MD Primary Care Provider [phone] Encounter Details Date Type Department Care Team (Late st Contact Info) Description 07/12/2002 Outpatient Historical Vince Chaney Jr., MD [address] [place] [id number] Social History Tobacco Use Types Packs/Day Years Used Date Smoking Tobacco: Never Assessed Comments Unknown Sex and Gender Information Value Date Recorded Sex Assigned at Not on file Legal Sex Female 4:12 AM ADMINISTRATIVE PROGRAM SPECIALIST Gender Identity Not on file Sexual Orientation Not on file documented as of this encounter Plan of Treatment Not on file documented as of this encounter Visit Diagnoses Not on filedocumented in this encounter Care Teams Student Services Advisor Relationship Specialty Start Date End Date Cesar Mendez MD [address] [facility] 1 [place] [phone] PCP - General Family Practice 01/13/20 documented as of this encounter
--- OUTSIDE RECORDS SUMMARY | 2025-09-17 12:15 | XMS_ITS | Encounter Summary ---
Author Organization [employer] [facility] Address [address] [place] [address] Care Team Providers Care Tool And Die Machinist Name Role Phone Cesar Mendez MD Primary Care Provider [phone] Encounter Details Date Type Department Care Team (Latest Contact Info) Description 01/02/2003 Outpatient Historical HIS [facility] Vince Chaney Jr., MD [address] [place] [address] DIABETES UNCOMPL ADULT-TYPE II (CMS/HCC) (Primary Dx); HYPERTENSION NOS; Pure hypercholesterolem; HEMATURIA Social History Tobacco Use Types Packs/Day Years Used Date Smoking Tobacco: Never Assessed Comments Unknown Sex and Gender Information Value Date Recorded Sex Assigned at Not on file Legal Sex Female 4:12 AM SUPERVISOR CELLARS Gender Identity Not on file Sexual Orientation Not on file documented as of this encounter Plan of Treatment Not on file documented as of this encounter Visit Diagnoses Diagnosis Type II or unspecified type diabetes mellitus without mention of complication, not stated as uncontrolled- Primary Unspecified essential hypertension Pure hypercholesterolem Pure hypercholesterolemia Hematuria documented in this encounter Care Teams Tool And Die Machinist Relationship Specialty Start Date End Date Cesar Mendez MD [address] [facility] 1 [place] [address] PCP - General Family Practice 01/13/20 documented as of this encounter
--- OUTSIDE RECORDS SUMMARY | 2025-09-17 12:15 | XMS_ITS | Patient Health Record ---
Author Organization [facility] Address [address] [place] [address] Care Team Providers Care Adult Specialist Name Role Phone Cesar Mendez MD Primary Care Provider Sin Cruz Unavailable [phone] Allergies Allergen (clinical drug ingredient) Drug/Non Drug [...] W/U Status Risk Notes Problem Essential hypertension (63711144) Essential (primary) hypertension (I10) Active confirmed Problem Chronic diastolic heart failure (184778282) Chronic diastolic (congestive) heart failure (I50.32) Active confirmed Problem End stage renal disease (86931325) End stage renal disease (N18.6) Active confirmed Problem Dependence on renal dialysis (941340193) Dependence on renal dialysis (Z99.2) Active confirmed Problem Personal history of primary malignant neoplasm of breast (076332048) History of left breast cancer (Z85.3) Active confirmed Problem Abdominal bloating (135096450) Abdominal bloating (R14.0) Active confirmed Problem Cardiac arrhythmia (322467641) Irregular heart rhythm (I49.9) Active confirmed Problem Diabetic renal disease (214401788) Type 2 diabetes mellitus with diabetic nephropathy, 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) Active confirmed Problem Rheumatoid arthritis (52943173) Rheumatoid arthritis (714.0) 08/22/20 04 Problem resolved confirmed [id number] 11- Problem Essential hypertension (11537313) Essential hypertension (401.1) 08/22/20 04 Problem resolved confirmed [id number] 11- Problem Diabetes mellitus type 2 (disorder) (81092260) Type 2 diabetes (250.00) 08/22/20 04 Problem resolved confirmed [id number] 11- Plan Of Treatment Pending Test Test Name Order Date Pro BNP 36036 11/17/2023 CT Abdomen, Pelvis w/ Contrast-09278 Electrocardiogram 12 Lead Tracing-[id number] 11/17/2023 Future Test Test Name Order Date Blood Urea Nitrogen (BUN) 56972 09/07/20 24 Creatinine (B) 42680 09/07/2024 Insurance Providers Payer Name Payer Address Payer Phone Subscriber Number Group Number Insured Name Patient Relationship to Insured Coverage Start Date Coverage End Date [place] [address] [place] [phone] [id number] María Saab Self - patient is the insured [place] of [address] [place] [address] [id number] María Saab Self - patient is the [...] Broken Left and Right Legs 2022 choleycystectomy 2019 appendectomy 2021 Dialysis Graft 2020 Colonoscopy Polyp Removal 2021 dialysis fistula Hospitalization History Reason Date(Month/Year) Kidney infection 2000 See surgery history
--- OUTSIDE RECORDS SUMMARY | 2025-09-17 12:15 | XMS_ITS | Encounter Summary ---
Author Organization [facility] Address [address] [place] [address] Care Team Providers Care Solar Sales Estimator Name Role Phone Cesar Mendez MD Primary Care Provider [phone] Encounter Details Date Type Department Care Team (Late st Contact Info) Description 04/05/2003 Outpatient Historical HIS [facility] Vince Chaney Jr., MD [address] [place] [phone] Social History Tobacco Use Types Packs/Day Years Used Date Smoking Tobacco: Never Assessed Comments Unknown Sex and Gender Information Value Date Recorded Sex Assigned at Not on file Legal Sex Female 4:12 AM PROJECT GEOLOGIST Gender Identity Not on file Sexual Orientation Not on file documented as of this encounter Plan of Treatment Not on file documented as of this encounter Visit Diagnoses Not on filedocumented in this encounter Care Teams Solar Sales Estimator Relationship Specialty Start Date End Date Cesar Mendez MD [address] [facility] 1 [place] [address] PCP - General Family Practice 01/13/20 documented as of this encounter
--- OUTSIDE RECORDS SUMMARY | 2025-09-17 12:15 | XMS_ITS | Encounter Summary ---
Author Organization [employer] [facility] Address [address] [place] [address] Care Team Providers Care Varnisher Apprentice Name Role Phone Cesar Mendez MD Primary Care Provider [phone] Encounter Details Date Type Department Care Team (Latest Contact Info) Description 03/16/2002 Outpatient Historical HIS [facility] Vince Chaney Jr., MD [address] [place] [address] DIABETES UNCOMPL ADULT-TYPE II (CMS/HCC) (Primary Dx); Pure hypercholesterolem; PERS HX OF BREAST MALIGNANCY Social History Tobacco Use Types Packs/Day Years Used Date Smoking Tobacco: Never Assessed Comments Unknown Sex and Gender Information Value Date Recorded Sex Assigned at Not on file Legal Sex Female 4:12 AM BUTT MAKER Gender Identity Not on file Sexual Orientation Not on file documented as of this encounter Plan of Treatment Not on file documented as of this encounter Visit Diagnoses Diagnosis Type II or unspecified type diabetes mellitus without mention of complication, not stated as uncontrolled- Primary Pure hypercholesterolem Pure hypercholesterolemia Personal history of malignant neoplasm of breast documented in this encounter Care Teams Varnisher Apprentice Relationship Specialty Start Date End Date Cesar Mendez MD [address] [facility] 1 [place] [phone] PCP - General Family Practice 01/13/20 documented as of this encounter
--- OUTSIDE RECORDS SUMMARY | 2025-09-17 12:15 | XMS_ITS | Encounter Summary ---
Author Organization [facility] Address [address] [place] [address] Care Team Providers Care Hogshead Roller Name Role Phone Cesar Mendez MD Primary Care Provider [phone] Encounter Details Date Type Department Care Team (Latest Contact Info) Description 10/03/2002 Outpatient Historical HIS [facility] Vince Chaney Jr., MD [address] [place] [address] DIABETES UNCOMPL ADULT-TYPE II (CMS/HCC) (Primary Dx); HYPERTENSION NOS; HYPOTHYROIDISM NOS; VACCINE FOR INFLUENZA Social History Tobacco Use Types Packs/Day Years Used Date Smoking Tobacco: Never Assessed Comments Unknown Sex and Gender Information Value Date Recorded Sex Assigned at Not on file Legal Sex Female 4:12 AM ACCOUNT STRATEGIST Gender Identity Not on file Sexual Orientation [...] diseases documented in this encounter Care Teams Hogshead Roller Relationship Specialty Start Date End Date Cesar Mendez MD [address] [facility] 1 [place] [address] PCP - General Family Practice 01/13/20 documented as of this encounter
--- OUTSIDE RECORDS SUMMARY | 2025-09-17 12:15 | XMS_ITS | Encounter Summary ---
Author Organization [facility] Address [address] [place] [address] Care Team Providers Care Engineering Agent Name Role Phone Cesar Mendez MD Primary Care Provider [phone] Encounter Details Date Type Department Care Team (Latest Contact Info) Description 07/06/2003 Outpatient Historical HIS [facility] Vince Chaney Jr., MD [address] [place] [address] DIABETES UNCOMPL ADULT-TYPE II (CMS/HCC) (Primary Dx); LUMBAGO; HYPERTENSION NOS Social History Tobacco Use Types Packs/Day Years Used Date Smoking Tobacco: Never Assessed Comments Unknown Sex and Gender Information Value Date Recorded Sex Assigned at Not on file Legal Sex Female 4:12 AM PROCESS CONTROL TECH Gender Identity Not on file Sexual Orientation Not on file documented as of this encounter Plan of Treatment Not on file documented as of this encounter Visit Diagnoses Diagnosis Type II or unspecified type diabetes mellitus without mention of complication, not stated as uncontrolled- Primary Lumbago Unspecified essential hypertension documented in this encounter Care Teams Engineering Agent Relationship Specialty Start Date End Date Cesar Mendez MD [address] [facility] 1 [place] [address] PCP - General Family Practice 01/13/20 documented as of this encounter
--- OUTSIDE RECORDS SUMMARY | 2025-09-17 12:15 | XMS_ITS | Encounter Summary ---
Author Organization [facility] Address [address] [place] [address] Care Team Providers Care Acquisitions Logistics Analyst Name Role Phone Cesar Mendez MD Primary Care Provider [phone] Encounter Details Date Type Department Care Team (Late st Contact Info) Description 04/05/2003 Outpatient Historical HIS [facility] Vince Chaney Jr., MD [address] [place] [address] Social History Tobacco Use Types Packs/Day Years Used Date Smoking Tobacco: Never Assessed Comments Unknown Sex and Gender Information Value Date Recorded Sex Assigned at Not on file Legal Sex Female 4:12 AM COTTON CLASSER Gender Identity Not on file Sexual Orientation Not on file documented as of this encounter Plan of Treatment Not on file documented as of this encounter Visit Diagnoses Not on filedocumented in this encounter Care Teams Acquisitions Logistics Analyst Relationship Specialty Start Date End Date Cesar Mendez MD [address] [facility] 1 [place] [address] PCP - General Family Practice 01/13/20 documented as of this encounter
--- OUTSIDE RECORDS SUMMARY | 2025-09-17 12:15 | XMS_ITS | Encounter Summary ---
Author Organization [employer] [facility] Address [address] [place] [address] Care Team Providers Care Deboning Team Leader Name Role Phone Cesar Mendez MD Primary Care Provider [phone] Encounter Details Date Type Department Care Team (Late st Contact Info) Description 07/20/2003 Outpatient [facility] Breast [facility] [address] [place], [place] [address] Vince Chaney Jr., MD [address] [place] [address] SCREENING MAMM-MAILG NEOPL-OTHER (Primary Dx) Social History Tobacco Use Types Packs/Day Years Used Date Smoking Tobacco: Never Assessed Comments Unknown Sex and Gender Information Value Date Recorded Sex Assigned at Not on file 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
--- OUTSIDE RECORDS SUMMARY | 2025-09-17 12:15 | XMS_ITS | Encounter Summary ---
Author Organization 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
--- OUTSIDE RECORDS SUMMARY | 2025-09-17 12:16 | XMS_ITS | Encounter Summary ---
Author Organization [employer] [facility] Address [address] [place] [address] Care Team Providers Care Blackjack Pit Boss Name Role Phone Cesar Mendez MD Primary Care Provider [phone] Encounter Details Date Type Department Care Team (Latest Contact Info) Description 09/17/2000 Outpatient Historical HIS [facility] Vince Chaney Jr., MD [address] [place] [address] Urinary tract infection, site not specified (Primary Dx); Hypopotassemia; Encounter for long-term (current) use of other medications Social History Tobacco Use Types Packs/Day Years Used Date Smoking Tobacco: Never Assessed Comments Unknown Sex and Gender Information Value Date Recorded Sex Assigned at Not on file 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
--- OUTSIDE RECORDS SUMMARY | 2025-09-17 12:16 | XMS_ITS | Encounter Summary ---
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
--- OUTSIDE RECORDS SUMMARY | 2025-09-17 12:16 | XMS_ITS | Encounter Summary ---
Author Organization [facility] Address [address] [place] [address] Care Team Providers Care Transcribing Operators Supervisor Name Role Phone Cesar Mendez MD Primary Care Provider [phone] Encounter Details Date Type Department Care Team (Latest Contact Info) Description 09/02/2000 Outpatient Historical HIS [facility] Vince Chaney Jr., MD [address] [place] [address] Unspecified hypothyroidism (Primary Dx); Type II or unspecified type diabetes mellitus without mention of complication, not stated as uncontrolled; Unspecified essential hypertension Social History Tobacco Use Types Packs/Day Years Used Date Smoking Tobacco: Never Assessed Comments Unknown Sex and Gender Information Value Date Recorded Sex Assigned at Not on file 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 Gender Identity Not on file Sexual Orientation Not on file documented as of this encounter Plan of Treatment Not on file documented as of this encounter Visit Diagnoses Diagnosis Unspecified hypothyroidism- Primary Type II or unspecified type diabetes mellitus without mention of complication, not stated as uncontrolled Unspecified essential hypertension documented in this encounter Care Teams Transcribing Operators Supervisor Relationship Specialty Start Date End Date Cesar Mendez MD 805 [facility] 1 [place] [address] PCP - General Family Practice 01/13/20 documented as of this encounter
--- OUTSIDE RECORDS SUMMARY | 2025-09-17 12:16 | XMS_ITS | Encounter Summary ---
Author Organization [facility] Address [address] [place] [address] Care Team Providers Care Director Of Retail Merchandising Name Role Phone Cesar Mendez MD Primary Care Provider [phone] Encounter Details Date Type Department Care Team (Latest Contact Info) Description 08/30/1999 Outpatient Historical [facility] Breast Center [address] [facility] [address] [phone] Nagi Clark MD NO ADDRESS ON FILE Lump or mass in breast (Primary Dx) Social History Tobacco Use Types Packs/Day Years Used Date Smoking Tobacco: Never Assessed Comments Unknown Sex and Gender Information Value Date Recorded Sex Assigned at Not on file Legal Sex Female 4:12 AM SOCIAL SERVICES DIRECTOR Gender Identity Not on file Sexual Orientation Not on file documented as of this encounter Plan of Treatment Not on file documented as of this encounter Visit Diagnoses Diagnosis Lump or mass in breast- Primary documented in this encounter Care Teams Director Of Retail Merchandising Relationship Specialty Start Date End Date Cesar Mendez MD 805 [facility] 1 [place] [phone] PCP - General Family Practice 01/13/20 documented as of this encounter
--- OUTSIDE RECORDS SUMMARY | 2025-09-17 12:16 | XMS_ITS | Encounter Summary ---
Author Organization [employer] [facility] Address [address] [place] [address] Care Team Providers Care Toy Stuffer Name Role Phone Cesar Mendez MD Primary Care Provider [phone] Encounter Details Date Type Department Care Team (Latest Contact Info) Description 04/05/2003 Outpatient Historical HIS [facility] Vince Chaney Jr., MD [address] [place] [address] DIABETES UNCOMPL ADULT-TYPE II (CMS/HCC) (Primary Dx); Pure hypercholesterolem; HYPERTENSION NOS; AFTERCARE SENIOR CARE USE MEDICATN Social History Tobacco Use Types Packs/Day Years Used Date Smoking Tobacco: Never Assessed Comments Unknown Sex and Gender Information Value Date Recorded Sex Assigned at Not on file 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
--- OUTSIDE RECORDS SUMMARY | 2025-09-17 12:16 | XMS_ITS | Encounter Summary ---
Author Organization [employer] [facility] Address [address] [place] [address] Care Team Providers Care Patient Case Manager Name Role Phone Cesar Mendez MD Primary Care Provider [phone] Encounter Details Date Type Department Care Team (Latest Contact Info) Description 09/23/2000 Outpatient Historical HIS [facility] Vince Chaney Jr., MD [address] [place] [address] Osteoporosis, unspecified (Primary Dx); Personal history of other disorder of urinary system Social History Tobacco Use Types Packs/Day Years Used Date Smoking Tobacco: Never Assessed Comments Unknown Sex and Gender Information Value Date Recorded Sex Assigned at Not on file 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
--- OUTSIDE RECORDS SUMMARY | 2025-09-17 12:16 | XMS_ITS | Encounter Summary ---
Author Organization [facility] Address [address] [place] [address] Care Team Providers Care Assistant Therapy Aide Name Role Phone Cesar Mendez MD Primary Care Provider [phone] Encounter Details Date Type Department Care Team (Latest Contact Info) Description 02/09/2002 Outpatient Historical HIS [facility] Vince Chaney Jr., MD [address] [place] [address] BACKACHE NOS (Primary Dx); DIABETES UNCOMPL ADULT-TYPE II (CMS/FORMER[facility]); HYPERTENSION NOS; AFTERCARE PRISON USE MEDICATN Social History Tobacco Use Types Packs/Day Years Used Date Smoking Tobacco: Never Assessed Comments Unknown Sex and Gender Information Value Date Recorded Sex Assigned at Not on file Legal Sex Female 4:12 AM HYDRAULIC TESTER Gender Identity Not on file Sexual Orientation [...] medications documented in this encounter Care Teams Assistant Therapy Aide Relationship Specialty Start Date End Date Cesar Mendez MD 8[address] [facility] 1 [place] [address] PCP - General Family Practice 01/13/20 documented as of this encounter
--- OUTSIDE RECORDS SUMMARY | 2025-09-17 12:16 | XMS_ITS | Encounter Summary ---
Author Organization [facility] Address [address] [place] [address] Care Team Providers Care Contract Technical Writer Name Role Phone Cesar Mendez MD Primary Care Provider [phone] Encounter Details Date Type Department Care Team (Latest Contact Info) Description 12/18/1999 Outpatient Historical HIS [facility] Antonio Mathis MD [address] [place] [address] Personal history of malignant neoplasm of breast (Primary Dx) Social History Tobacco Use Types Packs/Day Years Used Date Smoking Tobacco: Never Assessed Comments Unknown Sex and Gender Information Value Date Recorded Sex Assigned at Not on file 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
--- OUTSIDE RECORDS SUMMARY | 2025-09-17 12:16 | XMS_ITS | Encounter Summary ---
Author Organization [employer] [facility] Address [address] [place] [address] Care Team Providers Care Performance Analyst Name Role Phone Cesar Mendez MD Primary Care Provider [phone] Encounter Details Date Type Department Care Team (Latest Contact Info) Description 05/14/2000 Outpatient Historical HIS [facility] Vince Chaney Jr., MD [address] [place] [address] Type II or unspecified type diabetes mellitus without mention of complication, not stated as uncontrolled (Primary Dx); Unspecified essential hypertension Social History Tobacco Use Types Packs/Day Years Used Date Smoking Tobacco: Never Assessed Comments Unknown Sex and Gender Information Value Date Recorded Sex Assigned at Not on file 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 Sex Female 4:12 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
--- OUTSIDE RECORDS SUMMARY | 2025-09-17 12:16 | XMS_ITS | Encounter Summary ---
Author Organization [facility] Address [address] [place] [address] Care Team Providers Care Solutions Specialist Name Role Phone Cesar Mendez MD Primary Care Provider [phone] Encounter Details Date Type Department Care Team (Latest Contact Info) Description 06/01/2000 Outpatient Historical HIS [facility] Antonio Mathis MD [address] [place] [address] Personal history of malignant neoplasm of breast (Primary Dx) Social History Tobacco Use Types Packs/Day Years Used Date Smoking Tobacco: Never Assessed Comments Unknown Sex and Gender Information Value Date Recorded Sex Assigned at Not on file Legal Sex Female 4:12 AM INSPECTOR CIRCUITRY NEGATIVE Gender Identity Not on file Sexual Orientation Not on file documented as of this encounter Plan of Treatment Not on file documented as of this encounter Visit Diagnoses Diagnosis Personal history of malignant neoplasm of breast- Primary documented in this encounter Care Teams Solutions Specialist Relationship Specialty Start Date End Date Cesar Mendez MD 805 [facility] 1 [place] [phone] PCP - General Family Practice 01/13/20 documented as of this encounter
--- OUTSIDE RECORDS SUMMARY | 2025-09-17 12:16 | XMS_ITS | Encounter Summary ---
Author Organization [employer] [facility] Address [address] [place] [address] Care Team Providers Care Residential Fee Appraiser Name Role Phone Cesar Mendez MD Primary Care Provider [phone] Encounter Details Date Type Department Care Team (Latest Contact Info) Description 04/22/2001 Outpatient Historical HIS [facility] Vince Chaney Jr., MD [address] [place] [address] Unspecified essential hypertension (Primary Dx); Type II or unspecified type diabetes mellitus without mention of complication, not stated as uncontrolled; Neurogenic bladder, NOS Social History Tobacco Use Types Packs/Day Years Used Date Smoking Tobacco: Never Assessed Comments Unknown Sex and Gender Information Value Date Recorded Sex Assigned at Not on file 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 Gender Identity Not on file Sexual Orientation Not on file documented as of this encounter Plan of Treatment Not on file documented as of this encounter Visit Diagnoses Diagnosis Unspecified essential hypertension- Primary Type II or unspecified type diabetes mellitus without mention of complication, not stated as uncontrolled Neurogenic bladder, NOS documented in this encounter Care Teams Residential Fee Appraiser Relationship Specialty Start Date End Date Cesar Mendez MD 805 [facility] 1 [place] [address] PCP - General Family Practice 01/13/20 documented as of this encounter
--- OUTSIDE RECORDS SUMMARY | 2025-09-17 12:16 | XMS_ITS | Encounter Summary ---
Author Organization [employer] [facility] Address [address] [place] [address] Care Team Providers Care Associate Data Scientist Name Role Phone Cesar Mendez MD Primary Care Provider [phone] Encounter Details Date Type Department Care Team (Latest Contact Info) Description 04/01/2001 Outpatient Historical HIS [facility] Vince Chaney Jr., MD [address] [place] [address] Urinary tract infection, site not specified (Primary Dx); Type II or unspecified type diabetes mellitus without mention of complication, not stated as uncontrolled Social History Tobacco Use Types Packs/Day Years Used Date Smoking Tobacco: Never Assessed Comments Unknown Sex and Gender Information Value Date Recorded Sex Assigned at Not on file 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
--- OUTSIDE RECORDS SUMMARY | 2025-09-17 12:16 | XMS_ITS | Encounter Summary ---
Author Organization [facility] Address [address] [place] [address] Care Team Providers Care Dentistry Professor Name Role Phone Cesar Mendez MD Primary Care Provider [phone] Encounter Details Date Type Department Care Team (Latest Contact Info) Description 09/06/2001 Outpatient Historical [facility] [address] [facility] [address] [place] [phone] Nagi Clark MD NO ADDRESS ON FILE SYMPTOMS IN BREAST NEC (Primary Dx) Social History Tobacco Use Types Packs/Day Years Used Date Smoking Tobacco: Never Assessed Comments Unknown Sex and Gender Information Value Date Recorded Sex Assigned at Not on file 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
--- OUTSIDE RECORDS SUMMARY | 2025-09-17 12:16 | XMS_ITS | Encounter Summary ---
Author Organization [facility] Address [address] [place] [address] Care Team Providers Care Grinder Set Up Operator Surface Name Role Phone Cesar Mendez MD Primary Care Provider [phone] Encounter Details Date Type Department Care Team (Latest Contact Info) Description 03/13/2000 Outpatient Historical HIS [facility] Vince Chaney Jr., MD [address] [place] [address] Type I (juvenile type) diabetes mellitus without mention of complication, not stated as uncontrolled (Primary Dx); Unspecified essential hypertension; Malignant neoplasm of breast (female), unspecified site Social History Tobacco Use Types Packs/Day Years Used Date Smoking Tobacco: Never Assessed Comments Unknown Sex and Gender Information Value Date Recorded Sex Assigned at Not on file Legal Sex Female 4:12 AM AIR BOATSWAIN Gender Identity Not on file Sexual Orientation Not on file documented as of this encounter Plan of Treatment Not on file documented as of this encounter Visit Diagnoses Diagnosis Type I (juvenile type) diabetes mellitus without mention of complication, not stated as uncontrolled- Primary Unspecified essential hypertension Malignant neoplasm of breast (female), unspecified site documented in this encounter Care Teams Grinder Set Up Operator Surface Relationship Specialty Start Date End Date Cesar Mendez MD [address] [address] PCP - General Family Practice 01/13/20 documented as of this encounter
--- OUTSIDE RECORDS SUMMARY | 2025-09-17 12:16 | XMS_ITS | Encounter Summary ---
Author Organization [facility] Address [address] [place] [address] Care Team Providers Care Plant Electrical Engineer Name Role Phone Cesar Mendez MD Primary Care Provider [phone] Encounter Details Date Type Department Care Team (Late st Contact Info) Description 03/02/2000 Outpatient Historical [facility] [address] [facility] [address] [place] [address] Mirian Nj MD NO ADDRESS ON FILE Other sign and symptom in breast (Primary Dx) Social History Tobacco Use Types Packs/Day Years Used Date Smoking Tobacco: Never Assessed Comments Unknown Sex and Gender Information Value Date Recorded Sex Assigned at Not on file 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
--- OUTSIDE RECORDS SUMMARY | 2025-09-17 12:16 | XMS_ITS | Encounter Summary ---
Author Organization [employer] [facility] Address [address] [place] [address] Care Team Providers Care Cold Press Operator Name Role Phone Cesar Mendez MD Primary Care Provider [phone] Encounter Details Date Type Department Care Team (Latest Contact Info) Description 10/30/1999 Outpatient Historical HIS [facility] Antonio Mathis MD [address] [place] [address] Other specified aftercare following surgery (Primary Dx) Social History Tobacco Use Types Packs/Day Years Used Date Smoking Tobacco: Never Assessed Comments Unknown Sex and Gender Information Value Date Recorded Sex Assigned at Not on file 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
--- OUTSIDE RECORDS SUMMARY | 2025-09-17 12:16 | XMS_ITS | Encounter Summary ---
Author Organization [facility] Address [address] [place] [address] Care Team Providers Care Hydraulic Plumber Name Role Phone Cesar Mendez MD Primary Care Provider [phone] Encounter Details Date Type Department Care Team (Latest Contact Info) Description 09/01/2000 Outpatient Historical [facility] [address] [facility] [address] [place] [address] Rajwinder Traylor MD NO ADDRESS ON FILE Other sign and symptom in breast (Primary Dx) Social History Tobacco Use Types Packs/Day Years Used Date Smoking Tobacco: Never Assessed Comments Unknown Sex and Gender Information Value Date Recorded Sex Assigned at Not on file 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
--- OUTSIDE RECORDS SUMMARY | 2025-09-17 12:16 | XMS_ITS | Encounter Summary ---
Author Organization [employer] [facility] Address [address] [place] [address] Care Team Providers Care Sales Lead Generator Name Role Phone Cesar Mendez MD Primary Care Provider [phone] Encounter Details Date Type Department Care Team (Latest Contact Info) Description 03/24/2001 Outpatient Historical HIS [facility] Vince Chaney Jr., MD [address] [place] [address] Type II or unspecified type diabetes mellitus without mention of complication, not stated as uncontrolled (Primary Dx); Unspecified essential hypertension; Pure hypercholesterolem; Screening for thyroid disorder Social History Tobacco Use Types Packs/Day Years Used Date Smoking Tobacco: Never Assessed Comments Unknown Sex and Gender Information Value Date Recorded Sex Assigned at Not on file Legal Sex Female 4:12 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 RN Gender Identity Not on file Sexual Orientation Not on file documented as of this encounter Plan of Treatment Not on file documented as of this encounter Visit Diagnoses Diagnosis Type II or unspecified type diabetes mellitus without mention of complication, not stated as uncontrolled- Primary Unspecified essential hypertension Pure hypercholesterolem Pure hypercholesterolemia Screening for thyroid disorder documented in this encounter Care Teams Sales Lead Generator Relationship Specialty Start Date End Date Cesar Mendez MD [address] [facility] 1 [place] [address] PCP - General Family Practice 01/13/20 documented as of this encounter
--- OUTSIDE RECORDS SUMMARY | 2025-09-17 12:16 | XMS_ITS | Encounter Summary ---
Author Organization [employer] [facility] Address [address] [place] [address] Care Team Providers Care Hooker Machine Tender Name Role Phone Cesar Mendez MD Primary Care Provider [phone] Encounter Details Date Type Department Care Team (Latest Contact Info) Description 08/16/1999 Outpatient Historical HIS [facility] Vince Chaney Jr., MD [address] [place] [address] Abn Pap Smear-Cervix (Primary Dx) Social History Tobacco Use Types Packs/Day Years Used Date Smoking Tobacco: Never Assessed Comments Unknown Sex and Gender Information Value Date Recorded Sex Assigned at Not on file 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
--- OUTSIDE RECORDS SUMMARY | 2025-09-17 12:16 | XMS_ITS | Encounter Summary ---
Author Organization [employer] [facility] Address [address] [place] [address] Care Team Providers Care Hot Air Furnace Installer And Repairer Name Role Phone Cesar Mendez MD Primary Care Provider [phone] Encounter Details Date Type Department Care Team (Latest Contact Info) Description 09/11/1999 Outpatient Historical HIS [facility] Antonio Mathis MD [address] [place] [address] Other specified aftercare following surgery (Primary Dx) Social History Tobacco Use Types Packs/Day Years Used Date Smoking Tobacco: Never Assessed Comments Unknown Sex and Gender Information Value Date Recorded Sex Assigned at Not on file 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
--- OUTSIDE RECORDS SUMMARY | 2025-09-17 12:16 | XMS_ITS | Encounter Summary ---
Author Organization [facility] Address [address] [place] [address] Care Team Providers Care Program Developer Name Role Phone Cesar Mendez MD Primary Care Provider [phone] Encounter Details Date Type Department Care Team (Latest Contact Info) Description 02/19/2000 Outpatient Historical HIS [facility] Vince Chaney Jr., MD [address] [place] [address] Type II or unspecified type diabetes mellitus without mention of complication, not stated as uncontrolled (Primary Dx); Unspecified essential hypertension; Other abnormal blood chemistry; Hypopotassemia Social History Tobacco Use Types Packs/Day Years Used Date Smoking Tobacco: Never Assessed Comments Unknown Sex and Gender Information Value Date Recorded Sex Assigned at Not on file 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 Gender Identity Not on file Sexual Orientation Not on file documented as of this encounter Plan of Treatment Not on file documented as of this encounter Visit Diagnoses Diagnosis Type II or unspecified type diabetes mellitus without mention of complication, not stated as uncontrolled- Primary Unspecified essential hypertension Other abnormal blood chemistry Hypopotassemia documented in this encounter Care Teams Program Developer Relationship Specialty Start Date End Date Cesar Mendez MD [address] [facility] 1 [place] [address] PCP - General Family Practice 01/13/20 documented as of this encounter
--- OUTSIDE RECORDS SUMMARY | 2025-09-17 12:16 | XMS_ITS | Encounter Summary ---
Author Organization [facility] Address [address] [place] [address] Care Team Providers Care Clinical Safety Specialist Name Role Phone Cesar Mendez MD Primary Care Provider [phone] Encounter Details Date Type Department Care Team (Latest Contact Info) Description 08/26/1999 Outpatient Historical HIS [facility] Antonio Mathis MD [address] [place] [address] Malignant neoplasm of breast (female), unspecified site (Primary Dx) Social History Tobacco Use Types Packs/Day Years Used Date Smoking Tobacco: Never Assessed Comments Unknown Sex and Gender Information Value Date Recorded Sex Assigned at Not on file 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
--- OUTSIDE RECORDS SUMMARY | 2025-09-17 12:16 | XMS_ITS ---
Author Organization [facility] Address [address] [place] [address] Phone Care Team Providers Care Strapping Machine Tender Name Role Phone Wu Clark MD Primary [...]
--- OUTSIDE RECORDS SUMMARY | 2025-09-17 12:16 | XMS_ITS | Encounter Summary ---
Author Organization [employer] [facility] Address [address] [place] [address] Care Team Providers Care Cake Decorator Name Role Phone Cesar Mendez MD Primary Care Provider [phone] Encounter Details Date Type Department Care Team (Latest Contact Info) Description 09/10/2000 Outpatient Historical HIS [facility] Vince Chaney Jr., MD [address] [place] [address] Hematuria (Primary Dx); Urinary tract infection, site not specified Social History Tobacco Use Types Packs/Day Years Used Date Smoking Tobacco: Never Assessed Comments Unknown Sex and Gender Information Value Date Recorded Sex Assigned at Not on file 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
--- OUTSIDE RECORDS SUMMARY | 2025-09-17 12:16 | XMS_ITS | Encounter Summary ---
Author Organization [facility] Address [address] [place] [address] Care Team Providers Care Workforce Development Specialist Name Role Phone Cesar Mendez MD Primary Care Provider [phone] Encounter Details Date Type Department Care Team (Latest Contact Info) Description 05/26/2001 Outpatient Historical HIS [facility] Vince Chaney Jr., MD [address] [place] [address] Myalgia and myositis, unspecified (Primary Dx); Urinary obstruction Social History Tobacco Use Types Packs/Day Years Used Date Smoking Tobacco: Never Assessed Comments Unknown Sex and Gender Information Value Date Recorded Sex Assigned at Not on file 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
--- OUTSIDE RECORDS SUMMARY | 2025-09-17 12:16 | XMS_ITS | Encounter Summary ---
Author Organization [employer] [facility] Address [address] [place] [address] Care Team Providers Care Route Driver Name Role Phone Cesar Mendez MD Primary Care Provider [phone] Encounter Details Date Type Department Care Team (Latest Contact Info) Description 08/12/2001 Outpatient Historical HIS [facility] Vince Chaney Jr., MD [address] [place] [address] Type II or unspecified type [...] on file Legal Sex Female 4:12 AM LEAN MANUFACTURING SPECIALIST Gender Identity Not on file Sexual [...] urine documented in this encounter Care Teams Route Driver Relationship Specialty Start Date End Date Cesar Mendez MD [address] [facility] 1 [place] [address] PCP - General Family Practice 01/13/20 documented as of this encounter
--- OUTSIDE RECORDS SUMMARY | 2025-09-17 12:16 | XMS_ITS | Encounter Summary ---
Author Organization [facility] Address [address] [place] [address] Care Team Providers Care Ornament Stitcher Name Role Phone Cesar Mendez MD Primary Care Provider [phone] Encounter Details Date Type Department Care Team (Latest Contact Info) Description 06/30/2002 Outpatient Historical HIS [facility] Vince Chaney Jr., MD [address] [place] [address] ANEMIA NOS (Primary Dx); DIABETES UNCOMPL ADULT-TYPE II (CMS/HCC); HYPERTENSION NOS Social History Tobacco Use Types Packs/Day Years Used Date Smoking Tobacco: Never Assessed Comments Unknown Sex and Gender Information Value Date Recorded Sex Assigned at Not on file 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 Sex Female 4:12 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
--- OUTSIDE RECORDS SUMMARY | 2025-09-17 12:16 | XMS_ITS | Encounter Summary ---
Author Organization [employer] [facility] Address [address] [place] [address] Care Team Providers Care Certified Activities Director Name Role Phone Cesar Mendez MD Primary Care Provider [phone] Encounter Details Date Type Department Care Team (Latest Contact Info) Description 11/11/2001 Outpatient Historical HIS [facility] Vince Chaney Jr., MD [address] [place] [address] DIABETES UNCOMPL ADULT-TYPE II (CMS/HCC) (Primary Dx); Pure hypercholesterolem; HYPERTENSION NOS Social History Tobacco Use Types Packs/Day Years Used Date Smoking Tobacco: Never Assessed Comments Unknown Sex and Gender Information Value Date Recorded Sex Assigned at Not on file 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 Sex Female 4:12 AM ROLL 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 Gender Identity Not on file Sexual Orientation Not on file documented as of this encounter Plan of Treatment Not on file documented as of this encounter Visit Diagnoses Diagnosis Type II or unspecified type diabetes mellitus without mention of complication, not stated as uncontrolled- Primary Pure hypercholesterolem Pure hypercholesterolemia Unspecified essential hypertension documented in this encounter Care Teams Certified Activities Director Relationship Specialty Start Date End Date Cesar Mendez MD [address] [facility] 1 [place] [address] PCP - General Family Practice 01/13/20 documented as of this encounter
--- OUTSIDE RECORDS SUMMARY | 2025-09-17 12:16 | XMS_ITS | Patient Health Record ---
Author Organization [facility] Address [address] [place] [address] Care Team Providers Care Manager Government Name Role Phone Andrea MONACO, Cesar Primary Care Provider Unavailabl e Reason For Referral No Information Plan Of Treatment No Information Insurance Providers Payer Name Payer Address Payer Phone Subscriber Number Group Number Insured Name Patient Relationship to Insured Coverage Start Date Coverage End Date [place] [address] [place] [id number] [phone] [id number] María Saab Self - patient is the insured
--- OUTSIDE RECORDS SUMMARY | 2025-09-17 12:16 | XMS_ITS | Clinical Summary ---
Author Organization [facility] Address [address] [place] [address] Phone Care Team Providers Care Machine Ii Trimmer Name Role Phone Wu Clark MD Primary [...] Active Vit A,C,E-Zinc-Luis er (PreserVision AREDS) 14,320-226-200 yqzt-on-eslu Capsule Take 1 Tablet by mouth. Active vit B,U-NC-tuvc-arianne en-vit D3-E (RenaPlex-D) 800 mcg-12.5 mg -2,000 [...] on file Legal Sex Female 9:26 AM BOTTOM POUNDER CEMENT SHOES Gender Identity Not on file Sexual Orientation [...] 56.7 kg (125 lb) 10/24/2024 11:04 AM BOTTOM POUNDER CEMENT SHOES Height 160 cm (5' 3 ) 10/24/2024 11:04 AM BOTTOM POUNDER CEMENT SHOES Body Mass Index 22.14 10/24/2024 11:04 AM BOTTOM POUNDER CEMENT SHOES Plan of Treatment Upcoming Encounters Date Type Department Care Team (Late st Contact Info) Description 09/26/2025 6:30 AM BOTTOM POUNDER CEMENT SHOES Appointment [facility] Orly Albarran [address] [place] [address] Debi Montes De Oca MD [address] [address] Noelle Castro MD [address] [place] [address] Health Maintenance Due Date Last Done Comments [...] 2025 , 08/19/2023, 08/07/2021, Additional history exists COVID-19 Vaccine (4 - 2024-2 6 season) 2025 09/18/2021, 03/06/2021, 02/27/2021, Additional history exists COLORECTAL SCREENING Discontinued 06/12/2022, 06/12/20 Colorectal Cancer Screening Discontinued FIT-DNA Q 3 years Discontinued FIT/FOBT Q 1 year Discontinued Flex Sig/CT Colonography Q 5 years Discontinued Medical Devices Implanted Type Area Executive Sales Assistant Device Identifier Shelf Expiration Date Model / Serial / Lot Cath Pd Eric Boone 2cuff 03635-035 - [id number] Implanted:Qty : 1 on 04/26/2019 by Ben Enciso DO Catheter N/A: Abdomen MED[employer] - COVIDIEN 11/30/2023 [id number] / / [id number] Cath Dialysis Glidepath 14.5fr 23cm Std [id number] Implanted:Qty : 1 on 12/21/2020 by Robert Castro MD Catheter Right: Chest Wall CR BARD- [employer] [id number] 05/08/2022 [id number] / / [id number] Description:14.5fr x 23cm Gl idePath Dialysis Catheter implanted on right Clip Ligating Horizon Med Ti [id number] - Csc - [id number] Implanted:Qty : 1 on 01/31/2021 by Lonnie Sparks MD Clip Right: Arm TELEFLEX- WECK CLOSURE SYS 04/30/2025 [id number] / / [id number] Clip Ligating Horizon Red [id number] - Csc - [id number] Implanted:Qty : 1 on 01/31/2021 by Lonnie Sparks MD Clip Right: Arm TELEFLEX INC 04/30/2025 [id number] / / [id number] Clip Ligating Horizon Red [id number] - Csc - [id number] Implanted:Qty : 1 on 05/09/2021 by Lonnie Sparks MD at [facility] Clip Right: Arm TELEFLEX INC 07/16/2025 [id number] / / [id number] Clip Ligating Horizon Med Ti [id number] - Csc - [id number] Implanted:Qty : 1 on 05/09/2021 by Lonnie Sparks MD at [facility] Clip Right: Arm TELEFLEX- WECK CLOSURE SYS 07/09/2025 [id number] / / [id number] Hemostatic Surgifoam Sz100 1973 - [id number] Implanted:Qty : 1 on 07/04/2020 by Lonnie Sparks MD Hemostatic Right: Arm J[employer]J- [employer] [id number] 02/22/2024 1974 / / [id number] Covera Flaired Stent-11/30/19 Implanted:Qty : 1 on 11/30/2020 by Betsey Serra MD Stent Right: Arm [id number] 07/06/2022 [id number] / / [id number] 8 X 40mm Covera Covered Stent- Implanted:Qty : 1 on 12/10/2020 by Betsey Serra MD Stent Right: Arm [id number] 05/04/2022 [id number] / / [id number] Description:8 x 40mm Covera Covered Stent implanted in right arm Graft Graft Vasc Propaten 4-0wrw20ux [id number] - [id number] Implanted:Qty : 1 on 07/04/2020 by Lonnie Sparks MD Tissue Right: Arm [employer] 01/07/2024 [id number] / / [id number] Explanted Type Area Executive Sales Assistant Device Identifier Shelf Expiration Date Model / Serial / Lot Hemostatic Surgifoam Sz100 1973 - [id number] Explanted:Qty: 1 on 01/31/2021 by Lonnie Sparks MD Hemostatic Right: Arm J[employer]J- [employer] [id number] 09/06/20241973 / [id number] Hemostatic Surgifoam Sz100 1973 - [id number] Explanted:Qty: 1 on 05/09/2021 by Lonnie Sparks MD at [facility] Hemostatic Right: Arm J&J- [employer] [id number] 12/06/20241973 / [id number] Procedures Procedure Name Priority Date/Time Associated Diagnosis Comments COLONOSCOPY REPORT 06/12/2022 12 :49 PM CDT from Last 3 Months or Most Recently Relevant to Health Maintenance Results * COLONOSCOPY REPORT (06/12/2022 12:49 PM CDT) Narrative Procedure Note Kane Kim DO - 06/12/2022 12:48 PM CDT [facility] GI Patient Name: María Saab Procedure Date: [...] 12:14:29 PM Scope Out: 12:43:42 PM [address] [place] Kane Kim DO GI PROCEDURE ORDERABLES Final Result from Last 3 Months or Most Recently Relevant to Health Maintenance Insurance MEDICARE PART A AND B [facility] * Guarantor: MARÍA SAAB Dieter Account Type Relation to Patient Date of Phone Billing Address Personal/Family [address] [place] [address] [facility] Medicare Part D Advance Directives For more information, please contact: [phone] * Full Code (Latest Code Status on File) Date Activated Date Inactivated Comments 07/19/2022 7:28 PM 07/23/2022 7:37 PM * Full Code Date Activated Date Inactivated Comments 07/10/2022 5:41 PM 07/14/2022 4:37 PM * Full Code Date Activated Date Inactivated Comments 07/10/2022 10:52 AM 07/10/2022 5:40 PM * Full Code Date Activated Date Inactivated Comments 06/12/2022 11:50 AM 06/12/2022 3:14 PM Care Teams Machine Ii Trimmer Relationship Specialty Start Date End Date Wu Clark MD PCP - General Nephrology 05/06/22
--- OUTSIDE RECORDS SUMMARY | 2025-09-17 12:16 | XMS_ITS | Encounter Summary ---
Author Organization [employer] [facility] Address [address] [place] [address] Care Team Providers Care Rubber Off Name Role Phone Cesar Mendez MD Primary Care Provider [phone] Encounter Details Date Type Department Care Team (Late st Contact Info) Description 09/30/1999 Outpatient Historical HIS [facility] Social History Tobacco Use Types Packs/Day Years Used Date Smoking Tobacco: Never Assessed Comments Unknown Sex and Gender Information Value Date Recorded Sex Assigned at Not on file Legal Sex Female 4:12 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
--- OUTSIDE RECORDS SUMMARY | 2025-09-17 12:16 | XMS_ITS | Encounter Summary ---
Author Organization [employer] [facility] Address [address] [place] [address] Care Team Providers Care Gardening Manager Name Role Phone Cesar Mendez MD Primary Care Provider [phone] Encounter Details Date Type Department Care Team (Latest Contact Info) Description 09/23/1999 Outpatient Historical HIS [facility] Antonio Mathis MD [address] [place] [address] Other specified aftercare following surgery (Primary Dx) Social History Tobacco Use Types Packs/Day Years Used Date Smoking Tobacco: Never Assessed Comments Unknown Sex and Gender Information Value Date Recorded Sex Assigned at Not on file Legal Sex Female 4:12 AM PATHOLOGIST Gender Identity Not on file Sexual Orientation Not on file documented as of this encounter Plan of Treatment Not on file documented as of this encounter Visit Diagnoses Diagnosis Other specified aftercare following surgery- Primary documented in this encounter Care Teams Gardening Manager Relationship Specialty Start Date End Date Cesar Mendez MD [address] [place] [address] 1 [place] [phone] PCP - General Family Practice 01/13/20 documented as of this encounter
--- OUTSIDE RECORDS SUMMARY | 2025-09-17 12:16 | XMS_ITS | Encounter Summary ---
Author Organization [facility] Address [address] [place] [address] Care Team Providers Care Devulcanizer Tender Name Role Phone Cesar Mendez MD Primary Care Provider [phone] Encounter Details Date Type Department Care Team (Late st Contact Info) Description 03/05/2001 Outpatient Historical [facility] [address] [facility] [address] [place] [phone] Mirian Nj MD NO ADDRESS ON FILE Other sign and symptom in breast (Primary Dx) Social History Tobacco Use Types Packs/Day Years Used Date Smoking Tobacco: Never Assessed Comments Unknown Sex and Gender Information Value Date Recorded Sex Assigned at Not on file Legal Sex Female 4:12 AM TESTER REGULATOR Gender Identity Not on file Sexual Orientation Not on file documented as of this encounter Plan of Treatment Not on file documented as of this encounter Visit Diagnoses Diagnosis Other sign and symptom in breast- Primary documented in this encounter Care Teams Devulcanizer Tender Relationship Specialty Start Date End Date Cesar Mendez MD 805 [facility] 1 [place] [address] PCP - General Family Practice 01/13/20 documented as of this encounter
--- OUTSIDE RECORDS SUMMARY | 2025-09-17 12:16 | XMS_ITS | Encounter Summary ---
Author Organization [facility] Address [address] [place] [address] Care Team Providers Care Automotive Machinist Apprentice Name Role Phone Cesar Mendez MD Primary Care Provider [phone] Encounter Details Date Type Department Care Team (Latest Contact Info) Description 03/02/[address] 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
--- OUTSIDE RECORDS SUMMARY | 2025-09-17 12:16 | XMS_ITS | Encounter Summary ---
Author Organization [facility] Address [address] [place] [address] Care Team Providers Care Bicycle Assembler Name Role Phone Cesar Mendez MD Primary Care Provider [phone] Encounter Details Date Type Department Care Team (Late st Contact Info) Description 09/03/1999 Outpatient Historical [facility] [address] [facility] [address] [place] [phone] Mirian Nj MD NO ADDRESS ON FILE Other sign and symptom in breast (Primary Dx) Social History Tobacco Use Types Packs/Day Years Used Date Smoking Tobacco: Never Assessed Comments Unknown Sex and Gender Information Value Date Recorded Sex Assigned at Not on file 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
--- OUTSIDE RECORDS SUMMARY | 2025-09-17 12:16 | XMS_ITS | Encounter Summary ---
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
--- OUTSIDE RECORDS SUMMARY | 2025-09-17 12:16 | XMS_ITS | Clinical Summary ---
Author Organization [facility] Address [address] [place] [address] Phone Care Team Providers Care Billing Coordinator Name Role Phone Cesar Mendez MD Primary Care Provider [phone] Allergies Active Allergy Reactions Criticality Noted Date [...] 2 Tablets by mouth. 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 Gender Identity Not on file Sexual [...] history exists Medical Devices Implanted Type Area Delivery Room Clerk Device Identifier Shelf Expiration Date Model / Serial / Lot Cath Pd Eric Boone 2cuff 75279-827 - [id number] Implanted:Qty : 1 on 04/26/2019 by Ben Enciso DO at [facility] Catheter N/A: Abdomen MEDTRONIC - COVIDIEN 11/30/2023 [id number] / / [id number] Cath Dialysis Glidepath 14.5fr 23cm Std [id number] Implanted:Qty : 1 on 12/21/2020 by Robert Castro MD Catheter Right: Chest Wall CR BARD- [employer] [id number] 05/08/2022 [id number] / / [id number] Description:14.5fr x 23cm Gl idePath Dialysis Catheter implanted on right Clip Ligating Horizon Med Ti [id number] - Csc - [id number] Implanted:Qty : 1 on 01/31/2021 by Lonnie Sparks MD at [facility] Clip Right: Arm TELEFLEX- WECK CLOSURE SYS 04/30/2025 [id number] / / [id number] Clip Ligating Horizon Red [id number] - Csc - [id number] Implanted:Qty : 1 on 01/31/2021 by Lonnie Sparks MD at [facility] Clip Right: Arm TELEFLEX INC 04/30/2025 [id number] / / [id number] Hemostatic Surgifoam Sz100 1973 - [id number] Implanted:Qty : 1 on 07/04/2020 by Lonnie Sparks MD at [facility] Hemostatic Right: Arm J[employer]J- [employer] [id number] 02/22/2024 1974 / / [id number] Covera Flaired Stent-11/30/19 Implanted:Qty : 1 on 11/30/2020 by Betsey Serra MD Stent Right: Arm [id number] 07/06/2022 [id number] / / [id number] 8 X 40mm Covera Covered Stent- Implanted:Qty : 1 on 12/10/2020 by Betsey Serra MD Stent Right: Arm [id number] 05/04/2022 [id number] / / [id number] Description:8 x 40mm Covera Covered Stent implanted in right arm Graft Graft Vasc Propaten 4-1miw68it [id number] - [id number] Implanted:Qty : 1 on 07/04/2020 by Lonnie Sparks MD at [facility] Tissue Right: Arm [employer] 01/07/2024 [id number] / / [id number] Explanted Type Area Delivery Room Clerk Device Identifier Shelf Expiration Date Model / Serial / Lot Hemostatic Surgifoam Sz100 1973 - [id number] Explanted:Qty: 1 on 01/31/2021 by Lonnie Sparks MD at [facility] Hemostatic Right: Arm J[employer]J- [employer] [id number] 09/06/20241973 / / [id number] Insurance MEDICARE PART A AND B [facility] Medicare Part D Advance Directives For more information, please contact: [phone] * Full Code (Latest Code Status on [...] 7:55 AM 04/26/2019 11:45 AM Care Teams Billing Coordinator Relationship Specialty Start Date End Date Cesar Mendez MD [address] [phone] PCP - General Family Practice 01/13/20
--- OUTSIDE RECORDS SUMMARY | 2025-09-17 12:16 | XMS_ITS | Encounter Summary ---
Author Organization [employer] [facility] Address [address] [place] [address] Care Team Providers Care Working Manager Name Role Phone Cesar Mendez MD Primary Care Provider [phone] Encounter Details Date Type Department Care Team (Latest Contact Info) Description 12/24/2000 Outpatient Historical HIS [facility] Vince Chaney Jr., MD [address] [place] [address] Type II or unspecified type diabetes mellitus without mention of complication, not stated as uncontrolled (Primary Dx); Unspecified essential hypertension; Pure hypercholesterolem Social History Tobacco Use Types Packs/Day Years Used Date Smoking Tobacco: Never Assessed Comments Unknown Sex and Gender Information Value Date Recorded Sex Assigned at Not on file 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 Gender Identity Not on file Sexual Orientation Not on file documented as of this encounter Plan of Treatment Not on file documented as of this encounter Visit Diagnoses Diagnosis Type II or unspecified type diabetes mellitus without mention of complication, not stated as uncontrolled- Primary Unspecified essential hypertension Pure hypercholesterolem Pure hypercholesterolemia documented in this encounter Care Teams Working Manager Relationship Specialty Start Date End Date Cesar Mendez MD 805 [facility] 1 [place] [phone] PCP - General Family Practice 01/13/20 documented as of this encounter
--- OUTSIDE RECORDS SUMMARY | 2025-09-17 12:16 | XMS_ITS | Encounter Summary ---
Author Organization [employer] [facility] Address [address] [place] [address] Care Team Providers Care Bessemer Regulator Name Role Phone Cesar Mendez MD Primary Care Provider [phone] Encounter Details Date Type Department Care Team (Latest Contact Info) Description 08/31/2001 Outpatient Historical HIS [facility] Vince Chaney Jr., MD [address] [place] [address] Need vaccination-viral disease (Primary Dx) Social History Tobacco Use Types Packs/Day Years Used Date Smoking Tobacco: Never Assessed Comments Unknown Sex and Gender Information Value Date Recorded Sex Assigned at Not on file 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
--- OUTSIDE RECORDS SUMMARY | 2025-09-17 12:16 | XMS_ITS | Encounter Summary ---
Author Organization [facility] Address [address] [place] [address] Care Team Providers Care Staging Technician Name Role Phone Cesar Mendez MD Primary Care Provider [phone] Encounter Details Date Type Department Care Team (Latest Contact Info) Description 01/13/2000 Outpatient Historical HIS [facility] Vince Chaney Jr., MD [address] [place] [address] Type II or unspecified type diabetes mellitus without mention of complication, not stated as uncontrolled (Primary Dx); Unspecified essential hypertension; Malignant neoplasm of breast (female), unspecified site Social History Tobacco Use Types Packs/Day Years Used Date Smoking Tobacco: Never Assessed Comments Unknown Sex and Gender Information Value Date Recorded Sex Assigned at Not on file 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 Gender Identity Not on file Sexual Orientation Not on file documented as of this encounter Plan of Treatment Not on file documented as of this encounter Visit Diagnoses Diagnosis Type II or unspecified type diabetes mellitus without mention of complication, not stated as uncontrolled- Primary Unspecified essential hypertension Malignant neoplasm of breast (female), unspecified site documented in this encounter Care Teams Staging Technician Relationship Specialty Start Date End Date Cesar Mendez MD [address] [address] PCP - General Family Practice 01/13/20 documented as of this encounter
--- OUTSIDE RECORDS SUMMARY | 2025-09-17 12:16 | XMS_ITS | Encounter Summary ---
Author Organization [facility] Address [address] [place] [address] Care Team Providers Care Hardboard Grinder Name Role Phone Cesar Mendez MD Primary Care Provider [phone] Encounter Details Date Type Department Care Team (Latest Contact Info) Description 02/12/2000 Outpatient Historical HIS [facility] Vince Chaney Jr., MD [address] [place] [address] Type II or unspecified type diabetes mellitus without mention of complication, not stated as uncontrolled (Primary Dx); Anemia, unspecified; Unspecified hypothyroidism; Other and unspecified hyperlipidemia Social History Tobacco Use Types Packs/Day Years Used Date Smoking Tobacco: Never Assessed Comments Unknown Sex and Gender Information Value Date Recorded Sex Assigned at Not on file 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 Gender Identity Not on file Sexual Orientation Not on file documented as of this encounter Plan of Treatment Not on file documented as of this encounter Visit Diagnoses Diagnosis Type II or unspecified type diabetes mellitus without mention of complication, not stated as uncontrolled- Primary Anemia, unspecified Unspecified hypothyroidism Other and unspecified hyperlipidemia documented in this encounter Care Teams Hardboard Grinder Relationship Specialty Start Date End Date Cesar Mendez MD [address] [facility] 1 [place] [address] PCP - General Family Practice 01/13/20 documented as of this encounter
--- OUTSIDE RECORDS SUMMARY | 2025-09-17 12:17 | XMS_ITS | Encounter Summary ---
Author Organization [facility] Address [address] [place] [address] Care Team Providers Care Lithographic Press Operator Name Role Phone Cesar Mendez MD Primary Care Provider [phone] Reason for Referral * Radiology Services (Routine) - Closed Specialty Diagnoses / Procedures Referred By George wallace Referred To Contact Radiology Diagnoses Arteriovenous fistula occlusion, initial encounter Procedures IR FISTULOGRAM Wu Clark MD [facility] Interventional Radiology [address] [place] [address] Phone: tel: fax: Referral ID Status Reason Start Date Expiration Date Visits Re quested Visits Authorized [id number] Closed 11/21/2020 12/22/2021 1 1 ONAL TRAINER Encounter Details Date Type Department Care Team (Latest Contact Info) Description 11/21/2020 Ancillary Orders [facility] Interventional Radiology [address] [place] [address] Wu Clark MD NO ADDRESS [...] on file Legal Sex Female 4:12 AM PERSONAL TRAINER Gender Identity Not on file Sexual Orientation Not on file COVID-19 Exposure Response Date Recorded In the last month, have you been in contact with someone who was confirmed or suspected to have Coronavirus / COVID-19? No / Unsure 11/22/2020 8:30 AM PERSONAL TRAINER documented as of this encounter Plan of Treatment Not on file documented as of this encounter Results * IR FISTULOGRAM (11/22/2020 10:46 AM PERSONAL TRAINER) Anatomical Region Laterality Modality X-Ray Angiograph y 11/22/2020 10:4 6 AM PERSONAL TRAINER Impressions 11/23/2020 7:56 AM PERSONAL TRAINER IMPRESSION: 1. Sonography and fistulography demonstrated occlusive thrombus in the right upper arm arterial venous graft. 2. Thrombolysis and thrombectomy resulted in latter-day of vascular flow through the arteriovenous graft. 3. Angioplasty of a stenotic lesion at the venous anastomosis resulted in brisk flow and mild residual stenosis. Narrative 11/23/2020 7:56 AM PERSONAL TRAINER PROCEDURE: 1. Ultrasound-guided vascular access. 2. Fistulography [...] prepped and draped in usual sterile manner. [place] timeout protocol was performed. Sonographic evaluation of the right upper arm arterial venous graft showed occlusive thrombus within the graft. Using real-time ultrasound guidance, the arterial limb of the graft was accessed with micropuncture needle after anesthetizing the skin with 2% lidocaine (an ultrasound image is archived to PACS). Using standard micropuncture technique, the tract was dilated, and a 6 Austrian vascular sheath was inserted over a guidewire and directed antegrade. A 4 Austrian Mixify diagnostic catheter was advanced over wire into the right axillary vein, and a gentle pullback venogram was performed. This demonstrated occlusive thrombus in the arteriovenous graft. Catheter-directed thrombolysis of thrombus in the arterial venous graft was performed using 4 mg of TPA. Balloon maceration of the thrombus in the arteriovenous graft was performed using an 8 mm x 40 mm Calumet balloon. Percutaneous transluminal angioplasty of a short [...] the tract was dilated, and a 6 Austrian vascular sheath was inserted over a guidewire and directed retrograde. A Yamileth balloon was advanced over a guidewire into the right brachial artery, and Yamileth thrombectomy of the arterial limb of the graft was performed. Subsequent arteriography performed from the right brachial artery demonstrated latter-day of flow through the arteriovenous graft. A small to moderate amount of residual thrombus was seen within the graft. Balloon maceration of the thrombus in the graft was again performed. Subsequent angiography demonstrated latter-day of brisk flow in the arterial venous graft and no significant residual stenosis. A short segment of 65% stenosis was again seen at the venous anastomosis. A prolonged inflation of the 8 mm balloon was performed at the venous anastomosis. Subsequent angiography demonstrated latter-day of brisk flow and less than 50% [...] prepped and draped in usual sterile manner. [place] timeout protocol was performed. Sonographic evaluation of the right upper arm arterial venous graft showed occlusive thrombus within the graft. Using real-time ultrasound guidance, the arterial limb of the graft was accessed with micropuncture needle after anesthetizing the skin with 2% lidocaine (an ultrasound image is archived to PACS). Using standard micropuncture technique, the tract was dilated, and a 6 Austrian vascular sheath was inserted over a guidewire and directed antegrade. A 4 Austrian Linkuaenstein diagnostic catheter was advanced over wire into the right axillary vein, and a gentle pullback venogram was performed. This demonstrated occlusive thrombus in the arteriovenous graft. Catheter-directed thrombolysis of thrombus in the arterial venous graft was performed using 4 mg of TPA. Balloon maceration of the thrombus in the arteriovenous graft was performed using an 8 mm x 40 mm Calumet balloon. Percutaneous transluminal angioplasty of a short [...] the tract was dilated, and a 6 Austrian vascular sheath was inserted over a guidewire and directed retrograde. A Yamileth balloon was advanced over a guidewire into the right brachial artery, and Yamileth thrombectomy of the arterial limb of the graft was performed. Subsequent arteriography performed from the right brachial artery demonstrated latter-day of flow through the arteriovenous graft. A small to moderate amount of residual thrombus was seen within the graft. Balloon maceration of the thrombus in the graft was again performed. Subsequent angiography demonstrated latter-day of brisk flow in the arterial venous graft and no significant residual stenosis. A short segment of 65% stenosis was again seen at the venous anastomosis. A prolonged inflation of the 8 mm balloon was performed at the venous anastomosis. Subsequent angiography demonstrated latter-day of brisk flow and less than 50% [...] graft. 2. Thrombolysis and thrombectomy resulted in latter-day of vascular flow through the arteriovenous graft. 3. Angioplasty of a stenotic lesion at the venous anastomosis resulted in brisk flow and mild residual stenosis. Wu Clark MD IR ORDERABLES Final Result documented in this encounter Visit Diagnoses Diagnosis Arteriovenous fistula occlusion, initial encounter Arteriovenous fistula occlusion, initial encounter documented in this encounter Care Teams Lithographic Press Operator Relationship Specialty Start Date End Date Cesar Mendez MD [address] [address] PCP - General Family Practice 01/13/20 documented as of this encounter
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
--- OUTSIDE RECORDS SUMMARY | 2025-09-17 12:17 | XMS_ITS | Encounter Summary ---
Author Organization [facility] Address [address] [place] [address] Care Team Providers Care Lift Electrician Name Role Phone Cesar Mendez MD Primary Care Provider [phone] Encounter Details Date Type Department Care Team (Latest Contact Info) Description 09/27/1998 Outpatient Historical [facility] Fady Jones MD [address] [place] [address] Hypotension, unspecified (Primary Dx); Unspecified hypothyroidism; Dyspepsia and other specified disorders of function of stomach Social History Tobacco Use Types Packs/Day Years Used Date Smoking Tobacco: Never Assessed Comments Unknown Sex and Gender Information Value Date Recorded Sex Assigned at Not on file 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
--- OUTSIDE RECORDS SUMMARY | 2025-09-17 12:17 | XMS_ITS | Encounter Summary ---
Author Organization [employer] [facility] Address [address] [place] [address] Care Team Providers Care Assistant Food Service Director Name Role Phone Cesar Mendez MD Primary Care Provider [phone] Encounter Details Date Type Department Care Team (Latest Contact Info) Description 06/11/1998 Outpatient Historical [facility] Chris Connelly MD NO ADDRESS ON FILE Backache, unspecified (Primary Dx) Social History Tobacco Use Types Packs/Day Years Used Date Smoking Tobacco: Never Assessed Comments Unknown Sex and Gender Information Value Date Recorded Sex Assigned at Not on file 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
--- OUTSIDE RECORDS SUMMARY | 2025-09-17 12:17 | XMS_ITS ---
Author Name Cade, Clinic Address [address] [place] [address] Phone [phone] Organization [facility], NA DOCUMENT DISCLAIMER Multiple document versions may exist, please be sure you review the latest version. The information in the [facility] Continuity of Care Document represents a summary of certain health and medical information. It may not contain the complete medical history for the patient and should be independently verified. The represented time in the document is Eastern Time. PROBLEMS Problem Code Status Onset Date Fluid overload, unspecified E87.70 Active April 05, 2025 Hypertensive chronic kidney disease with stage 5 chronic kidney disease or end stage renal disease I12.0 Active July 04, 2024 Other fluid overload E87.79 Active May Anuria and oliguria R34 Active June [id number] Displaced intertrochanteric fracture of right femur, initial encounter for closed fracture S72.141A Active April 13, 2023 Nondisplaced intertrochanter ic fracture of left femur, initial encounter for closed fracture S72.145A Active February 27, 2023 Mixed hyperlipidemia E78.2 Active January Dependence on renal dialysis Z99.2 Active December 22, 2022 End stage renal disease N18.6 Active Febr uary 2022 Covid-19 U07.1 Active June 26, 2021 Lower abdominal pain, unspecified R10.30 Active May 31, 2021 Hyperkalemia E87.5 Active March 27, 2021 Diarrhea, unspecified R19.7 Active February 15, 2021 Hyperglycemia, unspecified R73.9 Active 2020 Local infection due to centr al venous catheter, initial encounter T80.212A Active December 31, 2020 Restless legs syndrome G25.81 Active mb2019 Other peritonitis K65.8 Active May 04 Unspecified protein-calorie malnutrition E46 Active April 13, 2020 Chills (without fever) R68.83 Active April 11, 2020 Hypotension of hemodialysis I95.3 Active March 29, 2020 Shortness of breath R06.02 Active March 29, 2020 Cramp and spasm R25.2 Active March 29, 2020 Nausea R11.0 Active March 29, 2020 Allergy, unspecified, subsequent encounter T78.40XD Active March 29, 2020 Chest pain, unspecified R07.9 Active March 29, 2020 Fever, unspecified R50.9 Active March 29 020 Pain, unspecified R52 Active March 29 Pleural effusion, not elsewhere classified J90 Active March 29, 2020 Encounter for screening for respiratory tuberculosis Z11.1 Active March 29, 2020 Secondary hyperparathyroidism of renal origin N25.81 Active March 29, 2020 Iron deficiency anemia, unspecified D50.9 Activ e March 29, 2020 Anemia in chronic kidney disease D63.1 Active March 29, 2020 Encounter for immunization Z23 Active M 2019 Coagulation defect, unspecified D68.9 Active March 29, 2020 Encounter for fitting and ad justment of extracorporeal dialysis catheter Z49.01 Active March 29, 2020 End stage renal disease N18.6 Active March 29, 2020 Hypothyroidism, unspecified E03.9 Active March 29, 2020 Hyperlipidemia, unspecified E78.5 Active March 29, 2020 Hypokalemia E87.6 Active March 29, 2020 Dizziness and giddiness R42 Active March 29, 2020 Heart failure, unspecified I50.9 Active M 2019 Essential (primary) hypertension I10 Active March 29, 2020 Type 2 diabetes mellitus wit h diabetic chronic kidney disease E11.22 Active March 29, 2020 ALLERGIES AND ADVERSE REACTIONS Substance Reaction Severity Status codeine Skin Rash Moderate Active Darvon Skin Rash Moderate Active Penicillins Skin Rash Moderate Active SOCIAL HISTORY Tobacco Use Status Tobacco Type Unknown if ever consumed tobacco - 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 Characteristics No Information Available Characteristics of Home environment No Information Available Gender and Sex Information Gender Identity Sexual Orientation Female Decline to answer MEDICATIONS Prescribed Medications for Dialysis Treatments Medication Instructions Dosage Route Start Date End Date Stat us Heparin Sodium (Porcine) 1,000 Units/mL Systemic Bolus, Every Treatment, Total treatment minutes 240 2000 units Intravenous - push August 09, 2025 August 08, 2026 Active Midodrine HCl (Proamatine) During Dialysis, PRN-march repeat x1 Systolic <100 5 mg Oral June 02, 2025 May 30, 2026 Active Mircera During Dialysis, Every 2 weeks 100 mcg Intravenous - push September 11, 2025 September 10, 2026 Active Vitamin D (Calcitriol) Oral Every Treatment 0.5 mcg Oral July 19, 2025 July 18, 2026 Active Mircera During Dialysis, Every 2 weeks 75 mcg Intravenous - push August 14, 2025 August 13, 2026 Discontinued Home Medications Medication Instructions Dosage Route Start Date End Date [facility] amitriptyline 100 mg Take by mouth at bedtime 1 tablet ORAL September 07, 2023 Active aspirin 81 mg Take by mouth once a day 1 tablet ORAL July 05, 2025 Active atorvastatin 40 mg Take by mouth at bedtime as directed 1 tablet ORAL June 30, 2025 Active Auryxia 210 mg iron Take by mouth three times a day with meals 1 tablet ORAL March 31, 2024 Active dialyvite Take by mouth once a day 1 tablet by mouth July 05, 2025 Active Ferric Citrate 210 mg Take By Mouth Three times a day With Meals 1 Tablet By Mouth March 31, 2024 November 14, 2025 Active gabapentin 100 mg Take by mouth every night at bedtime 1 capsule ORAL June 06, 2024 Active hydrocodone-acet aminophen 5-325 mg Take by mouth every eight hours as needed 1 tablet ORAL July 05, 2025 Active levothyroxine 200 mcg Take by mouth once a day 1 tablet ORAL December 14, 2023 Active levothyroxine 25 mcg Take by mouth every morning 1 tablet ORAL July 05, 2025 Active midodrine 10 mg Take by mouth three times a day 1 tablet ORAL July 05, 2025 Active Ozempic 2 mg/dose (8 mg/3 mL) Inject subcutaneously 2 mg SUBCUTANEOUS July 05, 2025 Active pantoprazole 40 mg Take by mouth once a day 1 tablet ORAL July 29, 2024 Active Prolia 60 mg/mL Inject subcutaneously every six months 1 syringe SUBCUTANEOUS July 05, 2025 Active RenaPlex-D 800 mcg-12.5 mg-2,000 unit Take by mouth once a day as directed 1 tablet ORAL June 21, 2019 Active ropinirole 1 mg Take by mouth every night as directed 2 tablet ORAL January 06, 2024 Active tamsulosin 0.4 mg Take by mouth once a day 1 capsule ORAL June 13, 2024 Active Tylenol 325 mg Take by mouth every six hours as needed for pain 2 capsule ORAL April 21, 2023 Active VITAL SIGNS Post-Treatment Vital Signs Vital Sign Value Date / Time Blood Pressure-sitting 142/73 mmHg September 16, 2025 01:29 PM Heart Rate 84 beats per minute September 16, 2025 01:29 PM Respiratory Rate 16 breaths per minute September 16, 2025 01:29 PM Temperature 97.3 deg. F September 16 01:29 PM Weight Vital Sign Value Date / Time Estimated Dry Weight 58.2 kg September 11:59 PM Pre-Dialysis 63.00 kg September 16 01:29 PM Post-Dialysis 60.50 kg September 16 01:29 PM Other Other Value Date / Time Height 159 cm January 05 12:00 AM Body Mass Index 23.02 kg/m2 September 04, 2025 12:49 PM HEALTH CONCERNS Tuberculosis Testing TST Date Administered TST Date Read TST Result 07/15/2021 07/17/2021 No information a vailable LAB RESULTS Hematology Result Type Result Value Relevant Referen ce Range Interpretation Date Folate, Serum > 24.0 ng/mL No Reference Ran ge Provided - January 11, 2025 Ferritin 1443 ng/mL 10 - 291 ng/mL High April 12, 2 025 WBC (No Diff) 6.83 1000/mcL 4.80 - 10.80 1000/mcL - April 12, 2025 Transferrin Sat. (Calc) 16 % 20 - 55 % Low April 12, 2025 TIBC (Calc) 204 mcg/dL 185 - 515 mcg/dL - April UIBC/TIBC 171 mcg/dL 155 - 355 mcg/dL - April 12, 2025 Neutrophils 80.5 % 40.0 - 75.0 % High April 12 025 Platelets 166 1000/mcL 130 - 400 1000/mcL - April 12, 2025 Transferrin Sat. (Calc) 20 % 20 - 55 % - May 10, 2025 TIBC (Calc) 189 mcg/dL 185 - 515 mcg/dL - May Neutrophils 77.6 % 40.0 - 75.0 % High May 10 025 WBC (No Diff) 5.87 1000/mcL 4.80 - 10.80 1000/mcL - May 10, 2025 UIBC/TIBC 151 mcg/dL 155 - 355 mcg/dL Low May 10, 2025 Platelets 167 1000/mcL 130 - 400 1000/mcL - May 10, 2025 Platelets 175 1000/mcL 130 - 400 1000/mcL - Augu 2025 WBC (No Diff) 4.64 1000/mcL 4.80 - 10.80 1000/mcL Low June 14, 2025 UIBC/TIBC 146 mcg/dL 155 - 355 mcg/dL Low June Transferrin Sat. (Calc) 21 % 20 - 55 % - June 14, 2025 TIBC (Calc) 185 mcg/dL 185 - 515 mcg/dL - June 14, 2025 Neutrophils 71.4 % 40.0 - 75.0 % - June 14, 2025 Hemoglobin x 3 25.5 % 36.0 - 48.0 % Low June 21, 2025 Hemoglobin x 3 29.1 % 36.0 - 48.0 % Low July 05, 2025 Iron 37 mcg/dL 30 - 160 mcg/dL - July 12, 2025 TIBC (Calc) 172 mcg/dL 185 - 515 mcg/dL Low 2024 UIBC/TIBC 135 mcg/dL 155 - 355 mcg/dL Low 2024 Transferrin Sat. (Calc) 22 % 20 - 55 % - July 12, 2025 RDW 20.4 % 11.5 - 14.5 % High July Hemoglobin x 3 28.8 % 36.0 - 48.0 % Low 2024 Platelets 145 1000/mcL 130 - 400 1000/mcL - Jul Ferritin 1575 ng/mL 10 - 291 ng/mL High July 12, 2025 Neutrophils 77.6 % 40.0 - 75.0 % High July 12, 2025 Lymphocytes 10.6 % 19.0 - 48.0 % Low July 12, 2025 Monocytes 6.3 % 3.0 - 10.0 % - July Eosinophil 2.9 % 0.0 - 7.0 % - July 12, 2025 Basophils 1.1 % 0.0 - 1.5 % - July 12, 2025 LAZARO 1.5 % 0.0 - 4.0 % - July 12, 2025 WBC (No Diff) 5.33 1000/mcL 4.80 - 10.80 1000/mcL - July 12, 2025 MCH 30.4 pg 27.0 - 31.0 pg - July 12, 2025 MCHC 31.4 g/dL 30.0 - 36.0 g/dL - Julembe r 2024 Hemoglobin x 3 28.5 % 36.0 - 48.0 % Low Septemb er 2024 Hemoglobin x 3 28.8 % 36.0 - 48.0 % Low Septemb er 2024 Hemoglobin x 3 30.9 % 36.0 - 48.0 % Low Septemb er 2024 TIBC (Calc) 191 mcg/dL 185 - 515 mcg/dL - August 09, 2025 UIBC/TIBC 158 mcg/dL 155 - 355 mcg/dL - August 09, 2025 LAZARO 1.8 % 0.0 - 4.0 % - August 09, 2 025 WBC (No Diff) 5.45 1000/mcL 4.80 - 10.80 1000/mcL - August 09, 2025 Transferrin Sat. (Calc) 17 % 20 - 55 % Low August 09, 2025 Neutrophils 77.6 % 40.0 - 75.0 % High August Eosinophil 5.0 % 0.0 - 7.0 % - August 09, 2 025 Basophils 1.5 % 0.0 - 1.5 % - August 09, 2 025 Lymphocytes 8.8 % 19.0 - 48.0 % Low August Monocytes 5.3 % 3.0 - 10.0 % - August 09, 2025 Iron 33 mcg/dL 30 - 160 mcg/dL - August MCH 29.0 pg 27.0 - 31.0 pg - August MCHC 31.2 g/dL 30.0 - 36.0 g/dL - August 09, 2025 Hemoglobin x 3 29.4 % 36.0 - 48.0 % Low August 09, 2025 Platelets 201 1000/mcL 130 - 400 1000/mcL - 2024 RDW 17.4 % 11.5 - 14.5 % High August 09, 2025 Hemoglobin x 3 30.6 % 36.0 - 48.0 % Low August 16, 2025 HGB 10.3 g/dL 12.0 - 16.0 g/dL Low August 23, 2025 Hemoglobin x 3 30.9 % 36.0 - 48.0 % Low August 23, 2025 HGB 10.2 g/dL 12.0 - 16.0 g/dL Low August 30, 2025 Hemoglobin x 3 30.6 % 36.0 - 48.0 % Low August 30, 2025 HGB 9.7 g/dL 12.0 - 16.0 g/dL Low September 06, 2025 Hemoglobin x 3 29.1 % 36.0 - 48.0 % Low September 06, 2025 Iron 45 mcg/dL 45 - 160 mcg/dL Normal September 13, 2025 TIBC (Calc) 180 mcg/dL (calc) 250 - 450 mcg/dL (calc) Low September 13, 2025 Transferrin Sat. (Calc) 25 % (calc) 16 - 45 % (calc) Normal September 13 WBC (No Diff) 6.5 Thousand/uL 3.8 - 10.8 Thousand/uL Normal September 13, 2025 Platelets 145 Thousand/uL 140 - 400 Thousand/uL Normal September 13, 2025 HCT 31.2 % 35.0 - 45.0 % Low September HGB 10.1 g/dL 11.7 - 14.0 g/dL Low September 13, 2025 RBC 3.38 Million/uL 3.80 - 5.10 Million/uL Low September 13, 2025 Hemoglobin x 3 30.3 No Reference Ran ge Provided Normal September 13, 2025 RDW 16.5 % 11.0 - 15.0 % High September MCHC 32.4 g/dL 32.0 - 36.0 g/dL Normal September 13, 2025 MCH 29.9 pg 27.0 - 33.0 pg Normal September Monocytes 7.5 % No Reference Ran ge Provided Normal September 13, 2025 Lymphocytes 9.2 % No Reference Ran ge Provided Normal September 13, 2025 Neutrophils 79.7 % No Reference Ran ge Provided Normal September 13, 2025 WBC (No Diff) 6.5 Thousand/uL 3.8 - 10.8 Thousand/uL Normal September 13, 2025 Basophils 1.1 % No Reference Ran ge Provided Normal September 13, 2025 Eosinophil 2.5 % No Reference Ran ge Provided Normal September 13, 2025 Metabolic/Renal Result Type Result Value Relevant Referen ce Range Interpretation Date Hemoglobin A1c 8.9 % 4.8 - 5.9 % High April 26, 2025 BUN, Post 6 mg/dL 6 - 19 mg/dL - July Sodium 132 mEq/L 136 - 145 mEq/L Low July 12, 2025 Chloride 94 mEq/L 96 - 108 mEq/L Low July 12, 2025 Potassium 3.5 mEq/L 3.5 - 5.1 mEq/L - July 12, 2025 Bicarbonate 25 mEq/L 22 - 29 mEq/L - July 12, 2025 URR, Calc 79 % 65 - 80 % - July 12, 2025 BUN 29 mg/dL 6 - 19 mg/dL High July BUN/Creat Ratio 7.6 10.0 - 20.0 Low 2024 Creatinine, Serum 3.80 mg/dL 0.60 - 1.30 mg/dL High July 12, 2025 Hemoglobin A1c 6.6 % 4.8 - 5.9 % High July 12, 2025 URR, Calc 84 % 65 - 80 % High August 09 BUN, Post 4 mg/dL 6 - 19 mg/dL Low August 09, 2025 BUN 25 mg/dL 6 - 19 mg/dL High August 09, 2025 BUN/Creat Ratio 7.8 10.0 - 20.0 Low August 09, 2025 Creatinine, Serum 3.20 mg/dL 0.60 - 1.30 mg/dL High August 09, 2025 Bicarbonate 26 mEq/L 22 - 29 mEq/L - August Sodium 126 mEq/L 136 - 145 mEq/L Low August Chloride 90 mEq/L 96 - 108 mEq/L Low August Potassium 4.0 mEq/L 3.5 - 5.1 mEq/L - August Sodium 128 mmol/L 135 - 146 mmol/L Low September 13, 2025 Potassium 3.9 mmol/L 3.5 - 5.3 mmol/L Normal September 13, 2025 Chloride 93 mmol/L 98 - 110 mmol/L Low September 13, 2025 Bicarbonate 26 mmol/L 20 - 29 mmol/L Normal September 13, 2025 BUN 24 mg/dL 7 - 25 mg/dL Normal September 13, 2025 Creatinine, Serum 3.48 mg/dL 0.60 - 1.00 mg/dL High September 13, 2025 BUN/Creat Ratio 6.9 No Reference Ran ge Provided Normal September 13, 2025 URR, Calc 83.3 No Reference Ran ge Provided Normal September 13, 2025 BUN, Post 4 mg/dL 7 - 25 mg/dL Low September 13, 2025 HD Adequacy Result Type Result Value Relevant Referen ce Range Interpretation Date Krt/V 0.00 No Reference Ran ge Provided - April 14, 2025 Krt/V 0.00 No Reference Ran ge Provided - May 22, 2025 Krt/V 0.00 No Reference Ran ge Provided - June 02, 2025 Krt/V 0.00 No Reference Ran ge Provided - June 14, 2025 wstdKt/V, residual 0.0 No Reference Range Provided - July 12, 2025 spKt/V Got 1.90 No Reference Ran ge Provided - July 12, 2025 Krt/V 0.00 No Reference Ran ge Provided - July 12, 2025 eKt/V ([place]) 1.68 No Reference Range Provided - July 12, 2025 spKt/V (Daugirdas II) 1.90 No Reference Range Provided - July 12, 2025 wstdKt/V without residual 2.7 No Reference Range Provided - July 12, 2025 wstdKt/V 2.7 No Reference Ran ge Provided - July 12, 2025 eKt/V ([place]) 2.02 No Reference Range Provided - August 09, 2025 spKt/V (Daugirdas II) 2.28 No Reference Range Provided - August 09, 2025 wstdKt/V without residual 3.8 No Reference Range Provided - August 09, 2025 wstdKt/V 3.8 No Reference Ran ge Provided - August 09, 2025 wstdKt/V, residual 0.0 No Reference Range Provided - August 09, 2025 eKt/V ([place]) 1.91 No Reference Range Provided - September 13, 2025 wstdKt/V without residual 2.8 No Reference Range Provided - September 13, 2025 Krt/V 0.00 No Reference Ran ge Provided - September 13, 2025 spKt/V (Daugirdas II) 2.14 No Reference Range Provided - September 13, 2025 spKt/V Got 2.14 No Reference Ran ge Provided - September 13, 2025 wstdKt/V 2.8 No Reference Ran ge Provided - September 13, 2025 wstdKt/V, residual 0.0 No Reference Range Provided - September 13, 2025 Bone/Mineral Result Type Result Value Relevant Referen ce Range Interpretation Date Magnesium 2.2 mg/dL 1.6 - 2.6 mg/dL - October 12, 2024 Magnesium 2.2 mg/dL 1.6 - 2.6 mg/dL - November 092024 Vitamin D 25 Hydroxy 69.6 ng/mL 30.0 - 100.0 ng/mL - January 11, 2025 Magnesium 1.9 mg/dL 1.6 - 2.6 mg/dL - January 11, 2025 Magnesium 2.1 mg/dL 1.6 - 2.6 mg/dL - April 12, 2025 PTH-Intact, Plasma 153 pg/mL 16 - 80 pg/mL High Apr Calcium, Total 7.5 mg/dL 8.4 - 10.2 mg/dL Low Jul Ca x P Product 0 - July 12, 2025 Phosphorus 3.4 mg/dL 2.6 - 4.5 mg/dL - July 12, 2025 Alkaline Phosphatase 98 U/L 35 - 104 U/L - Se ptember 2024 Corrected Ca x P Product 26 0 - - July 12 Magnesium 2.0 mg/dL 1.6 - 2.6 mg/dL - July 12, 2025 PTH-Intact, Plasma 1530 pg/mL 16 - 80 pg/mL High Sep tember 2024 Corrected Ca x P Product 32 0 - August 09, 2025 Calcium, Total 8.7 mg/dL 8.4 - 10.2 mg/dL - 2024 Ca x P Product 31 0 - - August Phosphorus 3.6 mg/dL 2.6 - 4.5 mg/dL - August Calcium, Total 8.8 mg/dL 8.6 - 10.0 mg/dL Normal Nove 2024 Phosphorus 5.0 mg/dL 3.0 - 4.3 mg/dL High September 13, 2025 Liver/Nutrition Result Type Result Value Relevant Referen ce Range Interpretation Date eNPCR 0.62 No Reference Ran ge Provided - July 12, 2025 Total Protein 6.7 g/dL 6.0 - 8.5 g/dL - 2024 Albumin (BCG) 3.9 g/dL 3.5 - 5.2 g/dL - 2024 A/G Ratio 1.4 1.0 - 2.0 - July 12, 2025 Globulin (Calc) 2.8 g/dL 2.0 - 4.0 g/dL - 2024 Glucose 289 mg/dL 70 - 100 mg/dL High July 12, 2025 Glucose 446 mg/dL 70 - 100 mg/dL High August Globulin (Calc) 3.4 g/dL 2.0 - 4.0 g/dL - 2024 A/G Ratio 1.1 1.0 - 2.0 - August 09 Albumin (BCG) 3.7 g/dL 3.5 - 5.2 g/dL - August 09, 2025 Total Protein 7.1 g/dL 6.0 - 8.5 g/dL - August 09, 2025 Glucose 403 mg/dL 65 - 99 mg/dL High September Globulin (Calc) 3.2 No Reference Ran ge Provided Normal September 13, 2025 Total Protein 6.9 g/dL 6.1 - 8.1 g/dL Normal 2024 Albumin (BCG) 3.7 g/dL 3.6 - 5.1 g/dL Normal 2024 eNPCR 0.56 No Reference Ran ge Provided - September 13, 2025 A/G Ratio 1.2 No Reference Ran ge Provided Normal September 13, 2025 Immunochemistry Result Type Result Value Relevant Reference Range Interpre tation HCV s/co ratio 0.07 0.00 - 0.79 - August 102024 Endocrinology/Thyroid Result Type Result Value Relevant Referen ce Range Interpretation Date TSH 3rd Generation 1.811 mIU/L 0.300 - 3.000 mIU/L - October 12, 2024 Free T4 1.18 ng/dL 0.89 - 1.76 ng/dL - 2023 Trace Elements Result Type Result Value Relevant Reference Range Interpre tation Aluminum < 5 mcg/L 0 - 10 mcg/L - January 11 Aluminum 13 mcg/L 0 - 10 mcg/L High July Infectious Diseases Result Type Result Value Relevant Referen ce Range Interpretation Date Hep B Surface Ag (HBsAg) Negative No Reference Range Provided - January 11, 2025 Hep B Surface Ab (anti-HBs) 143 mIU/mL No Reference Range Provided - April 19, 2025 HCV Ab (anti-HCV) Nonreactive No Reference R nash Provided - August 30, 2025 DIALYSIS PRESCRIPTION Conventional Hemodialysis Data Element Value Order Date/Time September 20, 2025 Frequency 3X Week Treatment Days MonWedFri Dialyzer FX CorAL 80 Treatment Time (Total Minutes) 270 min Blood Flow Rate (mL/min) 450 mL/min Dialysate Flow Rate Manual 800 Estimated Dry Weight 58.2 kg Dialysate Concentrate 2.0 K, 2.5 Ca, 1.0 Mg, 100 Dextrose (N2251) Sodium (mEq/L) 138 mEq/L Bicarb Machine Setting (mEq/L) 33 mEq/L Dialysis Access Hemodialysis-AV Fist pepe-Transposed, Right Upper Arm, Brachial Artery to Basilic Vein Access Placed on January 31, 2021 Arterial Needle Size 15g1 Venous Needle Size 15g1 Conventional Hemodialysis Data Element Value Order Date/Time September 13, 2025 Frequency 3X Week Treatment Days MonWedFri Dialyzer [id number] Optiflux Treatment Time (Total Minutes) 270 min Blood Flow Rate (mL/min) 450 mL/min Dialysate Flow Rate Manual 800 Estimated Dry Weight 58.2 kg Dialysate Concentrate 2.0 K, 2.5 Ca, 1.0 Mg, 100 Dextrose (G2251) Sodium (mEq/L) 138 mEq/L Bicarb Machine Setting (mEq/L) 33 mEq/L Dialysis Access Hemodialysis-AV Fist pepe-Transposed, Right Upper Arm, Brachial Artery to Basilic Vein Access Placed on January 31, 2021 Arterial Needle Size 15g1 Venous Needle Size 15g1 IMMUNIZATIONS Vaccine Date Dose Route Status Flu Vaccine - Flucelvax Trivalent August 02, 2025 0.5 m L Intramuscular Completed Flu Vaccine - Flucelvax Trivalent August 24, 2024 0.5 mL Intramuscular Completed Flu Vaccine - Flublok Quadrivalent August 19, 2023 0.5 mL Intramuscular Completed Moderna COVID-19 Vaccine, Booster September 18, 2021 0.25 m L Intramuscular Completed Moderna COVID-19 Vaccine, Do se 2 of February 27, 2021 0.5 mL Intramuscular Completed Moderna COVID-19 Vaccine, Do se 1 of January 28, 2021 0.5 mL Intramuscular Completed [id number] November 10, 2019 40.0 mcg Intramuscular Completed [id number] July 29, 2019 40.0 mcg Intramuscula r Completed PREVNAR 13 July 20, 2019 0.5 mL Intramuscular Com pleted [id number] July 06, 2019 40.0 mcg Intramuscular C ompleted [id number] June 08, 2019 40.0 mcg Intramuscular Com pleted TRANSPLANT WAITLIST STATUS No Information on Transplant Waitlist Status ADVANCE DIRECTIVES Directive Description Ordered By Effective Date Resuscitation status Full Code Debi Montes De Oca Dec DIALYSIS TREATMENTS Conventional Hemodialysis Date Pre-Treatment Vitals Post-Treatment [place] ls Duration (hr) BFR (mL/min) Dialysate Dialyzer Dialysis Access Meds Admin Novem 2024 Weight 61.40 kg Weight 59.90 kg 04:50:00 460 2.0 K, 2.5 Ca, 1.0 Mg, 100 Dextrose (G2251) 180nre Optifl ux Blood Pressure-sitting 145/90 mmHg Blood Pressure-sit ting 121/84 mmHg Heart Rate 49 beats per minute Heart Rate 58 beats per minute Respiratory Rate 16 breaths per minute Respiratory Rate 16 breaths per minute Temperature 97.2 deg. F Temperature 97.4 deg. F September 15, 2025 Weight 63.50 kg Weight 62.50 kg 01:26:00 450 2.0 K, 2.5 Ca, 1.0 Mg, 100 Dextrose (G2251) 180nre Optiflux Hemodialysis-AV Fistula-Transposed, Right Upper Arm, Brachial Artery to Basilic Vein Access Placed on January 31, 2021 Heparin Sodium (Porcine) 1,000 Units/mL Systemic; 2000units,Intravenous - push Vitamin D (Calcitriol) Oral; 0.5mcg,Oral Blood Pressure-sitting 148/102 mmHg Blood Pressure-sit ting 91/71 mmHg Heart Rate 80 beats per minute Heart Rate 48 beats per minute Respiratory Rate 16 breaths per minute Respiratory Rate 18 breaths per minute Temperature 97.8 deg. F Temperature 98.2 deg. F September 16, 2025 Weight 63.00 kg Weight 60.50 kg 03:12:00 460 2.0 K, 2.5 Ca, 1.0 Mg, 100 Dextrose (G2251) 180nre Optiflux Hemodialysis-AV Fistula-Transposed, Right Upper Arm, Brachial Artery to Basilic Vein Access Placed on January 31, 2021 - Blood Pressure-sitting 131/71 mmHg Blood Pressure-sit ting 142/73 mmHg Heart Rate 47 beats per minute Heart Rate 84 beats per minute Respiratory Rate 18 breaths per minute Respiratory Rate 16 breaths per minute Temperature 98.2 deg. F Temperature 97.3 deg. F
--- OUTSIDE RECORDS SUMMARY | 2025-09-17 12:17 | XMS_ITS | Encounter Summary ---
Author Organization [facility] Address [address] [place] [address] Care Team Providers Care Attending Physician Name Role Phone Cesar Mendez MD Primary Care Provider [phone] Reason for Referral * Radiology Services (Routine) - Closed Specialty Diagnoses / Procedures Referred By Contac t Referred To Contact Diagnoses Chronic kidney disease, stage IV (severe) (CMS/HCC) Procedures US BIOPSY ABDOMEN Wu Clark MD Referral ID Status Reason Start Date Expiration Date Visits Re quested Visits Authorized [id number] Closed 01/04/2019 02/04/2020 1 1 ICATION INTEGRATION ARCHITECT Encounter Details Date Type Department Care Team (Latest Contact Info) Description 01/04/2019 Ancillary Orders [facility] [address] [place] [id number] Wu Clark MD NO ADDRESS ON FILE Chronic kidney disease, stage IV (severe) (CMS/HCC) Social History Tobacco Use Types Packs/Day Years Used Date Smoking Tobacco: Never Assessed Comments Unknown Sex and Gender Information Value Date Recorded Sex Assigned at Not on file Legal Sex Female 4:12 AM APPLICATION INTEGRATION ARCHITECT Gender Identity Not on file Sexual Orientation Not on file documented as of this encounter Plan of Treatment Not on file documented as of this encounter Results * US BIOPSY ABDOMEN (01/12/2019 1:10 PM APPLICATION INTEGRATION ARCHITECT) Anatomical Region Laterality Modality Abdomen Ultrasound 01/12/2019 1:10 PM APPLICATION INTEGRATION ARCHITECT Impressions 01/12/2019 3:32 PM APPLICATION INTEGRATION ARCHITECT IMPRESSION: Please see below. Date: 01/12/2019 1:10 PM Reason For Exam: See Diagnosis. Diagnosis: Chronic kidney disease, stage IV (severe). Primary Teaching Assistant: Dr. Machado Moderate (conscious) sedation for this procedure was performed with continuous physician supervision. Medical history, physical exam, drug dosages, routes of drug administration, monitoring data, and precise times of service are documented in the medical record on the [facility]-approved form, 'Sedative/Analgesic Administration for Diagnostic and Therapeutic Procedures'. Please see nursing flow sheets for dosage and time. PROCEDURE AND FINDINGS: Successful ultrasound guided morongo kidney biopsy. Preliminary pathology report deems the [...] for evaluation. ++++++++++++++++++++ IMPRESSION: Successful ultrasound guided morongo kidney biopsy with results pending. Narrative Procedure Note Yvon Machado MD - 01/12/2019 IMPRESSION: Please see below. Date: 01/12/2019 1:10 PM Reason For Exam: See Diagnosis. Diagnosis: Chronic kidney disease, stage IV (severe). Primary Teaching Assistant: Dr. Machado Moderate (conscious) sedation for this procedure was performed with continuous physician supervision. Medical history, physical exam, drug dosages, routes of drug administration, monitoring data, and precise times of service are documented in the medical record on the [facility]-approved form, 'Sedative/Analgesic Administration for Diagnostic and Therapeutic Procedures'. Please see nursing flow sheets for dosage and time. PROCEDURE AND FINDINGS: Successful ultrasound guided morongo kidney biopsy. Preliminary pathology report deems the [...] for evaluation. ++++++++++++++++++++ IMPRESSION: Successful ultrasound guided morongo kidney biopsy with results pending. us Wu Clark MD US ORDERABLES Final Result documented in this encounter Visit Diagnoses Diagnosis Chronic kidney disease, stage IV (severe) (CMS/HCC) Chronic kidney disease, Stage IV (severe) Chronic kidney disease, stage IV (severe) (CMS/HCC) Chronic kidney disease, Stage IV (severe) documented in this encounter Care Teams Attending Physician Relationship Specialty Start Date End Date Cesar Mendez MD [address] [phone] PCP - General Family Practice 01/13/20 documented as of this encounter
--- OUTSIDE RECORDS SUMMARY | 2025-09-17 12:17 | XMS_ITS | Encounter Summary ---
Author Organization [employer] [facility] Address [address] [place] [address] Care Team Providers Care Sql Server Architect Name Role Phone Cesar Mendez MD Primary Care Provider [phone] Encounter Details Date Type Department Care Team (Latest Contact Info) Description 08/14/1999 Outpatient Historical [facility] Vince Chaney Jr., MD [address] [place] [address] Unspecified essential hypertension (Primary Dx); Lump or mass in breast Social History Tobacco Use Types Packs/Day Years Used Date Smoking Tobacco: Never Assessed Comments Unknown Sex and Gender Information Value Date Recorded Sex Assigned at Not on file Legal Sex Female 4:12 AM 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
--- OUTSIDE RECORDS SUMMARY | 2025-09-17 12:17 | XMS_ITS | Encounter Summary ---
Author Organization [facility] Address [address] [place] [address] Care Team Providers Care Apparel Pattern Maker Name Role Phone Cesar Mendez MD Primary Care Provider [phone] Reason for Referral * Radiology Services (Routine) - Closed Specialty Diagnoses / Procedures Referred By George wallace Referred To Contact Radiology Diagnoses ESRD on dialysis ([facility]) Procedures IR FISTULOGRAM Wu Clark MD [facility] Interventional Radiology [address] [place] [address] [place] [address] Phone: tel: fax: Referral ID Status Reason Start Date Expiration Date Visits Re quested Visits Authorized [id number] Closed 11/30/2020 12/31/2021 1 1 LIANCE ENGINEER Encounter Details Date Type Department Care Team (Latest Contact Info) Description 11/30/2020 Ancillary Orders [facility] Interventional Radiology [address] [address] [place] [address] Wu Clark MD NO ADDRESS ON FILE ESRD on dialysis ([facility]) Social History Tobacco Use Types Packs/Day Years Used Date Smoking Tobacco: Never Smokeless Tobacco: Never Alcohol Use Standard Drinks/Week Comments Never 0 (1 standard drink = 0.6 oz pur e alcohol) Comments No Sex and Gender Information Value Date Recorded Sex Assigned at Not on file Legal Sex Female 4:12 AM COMPLIANCE ENGINEER Gender Identity Not on file Sexual Orientation Not on file COVID-19 Exposure Response Date Recorded In the last month, have you been in contact with someone who was confirmed or suspected to have Coronavirus / COVID-19? No / Unsure 11/30/2020 11:40 AM COMPLIANCE ENGINEER documented as of this encounter Plan of Treatment Not on file documented as of this encounter Results * IR FISTULOGRAM (11/30/2020 3:52 PM COMPLIANCE ENGINEER) Anatomical Region Laterality Modality X-Ray Angiograph y 11/30/2020 3:52 PM COMPLIANCE ENGINEER Impressions 11/30/2020 6:58 PM COMPLIANCE ENGINEER IMPRESSION: Please see below. Exam: Right upper [...] dialysis graft was punctured and a 6 [place] sheath was placed with its tip directed centrally. A 5 [place] straight end hole catheter was advanced over [...] the graft was punctured and a 6 [place] sheath was placed with its tip directed peripherally. A 5 [place] Yamileth balloon catheter was advanced over the [...] outflow of the graft. The indwelling 6 [place] arterial limb access sheath was replaced with an 8 [place] access sheath through which a 9 mm [...] dialysis graft was punctured and a 6 [place] sheath was placed with its tip directed centrally. A 5 [place] straight end hole catheter was advanced over [...] the graft was punctured and a 6 [place] sheath was placed with its tip directed peripherally. A 5 [place] Yamileth balloon catheter was advanced over the [...] outflow of the graft. The indwelling 6 [place] arterial limb access sheath was replaced with an 8 [place] access sheath through which a 9 mm [...] encounter Visit Diagnoses Diagnosis ESRD on dialysis ([facility]) End stage renal disease ESRD on dialysis ([facility]) End stage renal disease documented in this encounter Care Teams Apparel Pattern Maker Relationship Specialty Start Date End Date Cesar Mendez MD [address] [phone] PCP - General Family Practice 01/13/20 documented as of this encounter
--- OUTSIDE RECORDS SUMMARY | 2025-09-17 12:17 | XMS_ITS | Encounter Summary ---
Author Organization [facility] Address [address] [place] [address] Care Team Providers Care Chancery Clerk Name Role Phone Cesar Mendez MD Primary Care Provider [phone] Reason for Referral * Radiology Services (Routine) - Closed Specialty Diagnoses / Procedures Referred By George wallace Referred To Contact Radiology Diagnoses End stage renal disease (CMS/HCC) Procedures IR VENOUS ACCESS IR FISTULOGRAM Wu Clark MD [facility] Interventional Radiology [address] [address] [place] [address] Phone: tel: fax: Referral ID Status Reason Start Date Expiration Date Visits Re quested Visits Authorized [id number] Closed 12/19/2020 01/19/2022 1 1 E MECHANIC Encounter Details Date Type Department Care Team (Latest Contact Info) Description 12/19/2020 Ancillary Orders [facility] Interventional Radiology [address] [place] [address] [place] [address] Wu Clark MD NO ADDRESS [...] on file Legal Sex Female 4:12 AM VALVE MECHANIC Gender Identity Not on file Sexual Orientation Not on file COVID-19 Exposure Response Date Recorded In the last month, have you been in contact with someone who was confirmed or suspected to have Coronavirus / COVID-19? No / Unsure 12/21/2020 10:18 AM VALVE MECHANIC documented as of this encounter Plan of Treatment Not on file documented as of this encounter Results * IR VENOUS ACCESS (12/21/2020 1:09 PM VALVE MECHANIC) Anatomical Region Laterality Modality X-Ray Angiograph y 12/21/2020 1:09 PM VALVE MECHANIC Impressions 12/21/2020 5:03 PM VALVE MECHANIC IMPRESSION: Please see below. EXAM: Ultrasound and fluoroscopy guided tunneled hemodialysis catheter placement OPERATORS: Robert Castro MD ACCESS SITE: Right internal jugular vein with ultrasound MEDICATIONS: Versed and Fentanyl were titrated to effect. Ancef 2 gram IV. CONTRAST: None FLUOROSCOPY TIME: 0.8 minutes CATHETER: 14.5 [place], 23 cm tip to cuff catheter ESTIMATED [...] and the needle exchanged for a 5 [place] transitional dilator. A 0.035-inch wire was advanced [...] skin tract was dilated and a 15 [place] dilator peel-away combination placed over the wire. [...] None FLUOROSCOPY TIME: 0.8 minutes CATHETER: 14.5 [place], 23 cm tip to cuff catheter ESTIMATED [...] and the needle exchanged for a 5 [place] transitional dilator. A 0.035-inch wire was advanced [...] skin tract was dilated and a 15 [place]ian dilator peel-away combination placed over the wire. [...] disease documented in this encounter Care Teams Chancery Clerk Relationship Specialty Start Date End Date Cesar Mendez MD [address] [phone] PCP - General Family Practice 01/13/20 documented as of this encounter
--- OUTSIDE RECORDS SUMMARY | 2025-09-17 12:17 | XMS_ITS | Data Portability ---
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 bleeding around the surgical site and had to go back in the hospital for 4 days. Patient reports that she has been tired since being home. They would also like to get her set up with home health and would like for her to be sent to [facility]. Pt was discharged from the hospital following her surgery to the [facility]. After one day, she started having bleeding around the surgical site and had to go back in the hospital for 4 days. Patient reports that she has been very tired since being home. They would also like to get her set up with home health and would like for her to be sent to [facility]. Patient is also wanting to see about getting a janae lift with a U sling because they are having difficulty getting her in/out of bed, and any help with transferring from any chair and when she is also being bathed. She is currently unable to stand and help with transferring. Prior to her surgery, she did fall on the ground and it took one hour to get her up off of the floor.ROS as noted in the HPI Glipizide? There were no instructions to stop or stay on the glipizide. They are wanting to make sure if they are to continue. Midodrine? Patient was prescribed midodrine at her hospitalization and the family is concerned that there is no way for them to check BP in the home currently. While pt was hospitalized, she was treated with IV ABX for a UTI, but was not d/c with any to take orally at home. Pt does not have any c/o currently of a UTI. Claudia Mendez MD [address] [place] [address], [phone], [facility] 07/04/2025 15:42:00 5 text/html Skin LesionReported by PatientROS as noted in the HPI walk in patientpatient is here today for a red swollen, red, painful incision in her left arm after having a surgery on it about 3 weeks ago. Patient has follow up with week with surgeon but was told by home health nurse to come in due to the increased pain and swelling. is present and states that surgeon has been aware of the swelling. HUMA REBOLLEDO [address] [place] [address], [phone], [facility] 07/19/2025 11:10:53 5 text/html ROS as noted in the HPI walk in ptPt broke left arm june 17 and had 2 surgeries in june. PTs left arm is swollen and warm to the touch. starting 2-3 days ago HUMA REBOLLEDO [address] [place] [address], [phone], [facility], [place] 09/17/2025 13:05:53 OBGyn Episode No OBEpisode recorded.
--- OUTSIDE RECORDS SUMMARY | 2025-09-17 12:17 | XMS_ITS | Encounter Summary ---
Author Organization [facility] Address [address] [place] [address] Care Team Providers Care Server Administrator Name Role Phone Cesar Mendez MD Primary Care Provider [phone] Reason for Referral * Radiology Services (Routine) - Closed Specialty Diagnoses / Procedures Referred By George wallace Referred To Contact Radiology Diagnoses Arteriovenous fistula occlusion, initial encounter Procedures IR FISTULOGRAM Wu Clark MD [facility] [address] [place] [address] Phone: tel: fax: Referral ID Status Reason Start Date Expiration Date Visits Re quested Visits Authorized [id number] Closed 12/10/2020 01/10/2022 1 1 [facility] Encounter Details Date Type Department Care Team (Latest Contact Info) Description 12/10/2020 Ancillary Orders [facility] [address] [place] [address] Wu Clark MD NO ADDRESS [...] file Legal Sex Female 4:12 AM [employer] [employer] Gender Identity Not on file Sexual Orientation Not on file COVID-19 Exposure Response Date Recorded In the last month, have you been in contact with someone who was confirmed or suspected to have Coronavirus / COVID-19? No / Unsure 12/10/2020 11:46 AM [employer] documented as of this encounter Plan of Treatment Not on file documented as of this encounter Results * IR FISTULOGRAM (12/10/2020 3:06 PM [employer]) Anatomical Region Laterality Modality X-Ray Angiograph y 12/10/2020 3:06 PM [employer] [employer] Impressions 12/10/2020 6:48 PM [employer] IMPRESSION: Please see below. Exam: Right upper [...] at the arterial limb and a 6 Eritrean sheath was placed with its tip directed centrally. A 5 Eritrean straight end hole catheter was advanced over [...] the graft was punctured and a 6 Eritrean sheath was placed with its tip directed peripherally. A 5 Eritrean Yamileth catheter was advanced over an angled [...] arterial limb access sheath, the indwelling 6 Eritrean sheath was replaced with an 8 Eritrean access sheath through which an 8 mm [...] at the arterial limb and a 6 Eritrean sheath was placed with its tip directed centrally. A 5 Eritrean straight end hole catheter was advanced over [...] the graft was punctured and a 6 Eritrean sheath was placed with its tip directed peripherally. A 5 Eritrean Yamileth catheter was advanced over an angled [...] arterial limb access sheath, the indwelling 6 Eritrean sheath was replaced with an 8 Eritrean access sheath through which an 8 mm [...] encounter documented in this encounter Care Teams Server Administrator Relationship Specialty Start Date End Date Cesar Mendez MD [address] [phone] PCP - General Family Practice 01/13/20 documented as of this encounter
[2025-09-17 12:18] VITALS: BP 175/76; PULSE 88; RESP 18; TEMP 36.5; O2SAT 98
--- NOTE | 2025-09-17 12:32 | XRR_ITS ---
PROCEDURE INFORMATION: Exam: XR Left Humerus Exam date and time: 09/17/2025 12:58 PM Age: 75 years old Clinical indication: Swelling; Arm, upper; Left; Prior surgery; Surgery date: 1-6 months; Surgery type: Lt humeral orif; Additional info: Lt upper ext swelling/redness; HX lt humeral orif 06/2025; No new injury; New onset swelling/redness/weeping TECHNIQUE: Imaging protocol: Radiologic exam of the left humerus. Views: 2 or more views. 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 There are moderate degenerative changes in the left glenohumeral joint. Deformity of the left humeral head. Left humeral plate and screw fixation fixing the distal humeral fracture with near anatomic alignment and no hardware complications. Soft tissues: Clips in the left axilla. There is soft tissue swelling. XR/[place] [id number] IMPRESSION: 1. Left humeral plate and screw fixation fixing the distal humeral fracture with near anatomic alignment and no hardware complications. 2. Swelling that might be postop versus cellulitis. No soft tissue emphysema.
--- NOTE | 2025-09-17 12:46 | W.ED.GENADLT ---
Documented by User: JAH Hill 09/17/25 15:06 HPI - General Adult General: Chief complaint: General Medical Stated complaint: Lt arm swollen Time Seen by Provider: 09/17/25 12:12 Source: patient Mode of arrival: ambulatory Limitations: no limitations History of Present Illness: Patient is a 75-year-old female presents emergency department with swelling to her left elbow area for the past couple of days. History of surgery back in June, as she had a humerus fracture. She states that she has been applying topical cream to it, and there is sticky substance to her left arm right now however she does note that has been warm to the touch. No fevers or nausea/vomiting. Patient is end-stage renal disease on dialysis. Still has range of motion in the left arm, no distal numbness weakness or tingling. No coolness or pallor of the left upper extremity. MD complaint: left arm swelling Onset (ago): day(s) Associated symptoms: Deny chest pain, dyspnea, headache(s), nausea, rash or vomiting Related Data Home Medications ?Medication ?Instructions ?Recorded ?Confirmed amitriptyline 100 mg tablet 100 mg PO BEDTIME 10/02/20 09/17/25 tamsulosin 0.4 mg capsule 0.4 mg PO QAM 07/18/22 09/17/25 ropinirole 1 mg tablet 1 mg PO BEDTIME 02/27/23 09/17/25 vit B,C-folic ac 800 mcg-zinc 12.5 1 tab PO QAM 02/27/23 09/17/25 mg-selen-D3 2,000 unit-vit E tablet (RenaPlex-D) folic acid 0.8 mg-vit B comp with 1 tab PO QAM 08/29/23 09/17/25 E-kgsa-cvcukbm D3 2,000 unit tablet (Dialyvite 800-Ultra D) ferric citrate 210 mg iron tablet 1 tab PO TID 12/27/24 09/17/25 (Auryxia) gabapentin 100 mg capsule 100 mg PO BEDTIME 12/27/24 09/17/25 levothyroxine 200 mcg tablet 200 mcg PO DAILY 06/22/25 09/17/25 glipizide 5 mg tablet 5 mg PO TID 07/11/25 09/17/25 prednisolone acetate 1 % eye 1 drp ophthalmic (eye) QID 07/11/25 09/17/25 drops,suspension midodrine 10 mg tablet 10 mg PO Q8H 09/17/25 09/17/25 semaglutide 0.25 mg or 0.5 mg (2 0.5 mg SUBCUT Q7D 09/17/25 09/17/25 mg/3 mL) subcutaneous pen injector (Ozempic) Previous Rx's ?Medication ?Instructions ?Recorded flash glucose scanning reader #1 ea 12/15/22 (FreeStyle Anita 2 Hamler) flash glucose sensor (FreeStyle #3 ea 12/15/22 Anita 2 Sensor kit) wheel chair #1 ea 04/30/23 denosumab 60 mg/mL subcutaneous 60 mg SUBCUT .[id number] #1 mL 06/11/24 syringe (Prolia) levothyroxine 25 mcg tablet 25 mcg PO DAILY #90 tabs 06/09/25 (Synthroid) Sling #1 ea 07/06/25 cephalexin 500 mg capsule 500 mg PO Q6H 7 days #28 caps 09/17/25 Allergies Allergy/AdvReac Type Severity Reaction Status Date / Time Penicillins Allergy Mild ALGY-Rash Verified 08/03/25 13:52 propoxyphene (From Darvon) Allergy Mild ALGY-Rash Verified 08/03/25 13:52 codeine Allergy ALGY-Rash Verified 08/03/25 13:52 Review of Systems General: Reports: 10 or more systems reviewed and unremarkable except in HPI and below Const: Denies: fever(s) or chills Card: Denies: chest pain Resp: Denies: dyspnea or productive cough GI: Denies: abdominal pain, nausea, vomiting or diarrhea : Denies: flank pain Musc: Reports: joint swelling, joint redness and joint warmth; Denies: neck pain, back pain, extremity pain, extremity swelling, joint pain, limited range of motion or muscle weakness Skin/Breast: Denies: rash Neuro: Denies: headache(s), numbness in extremities or weakness in extremities PFSH ED PFSH: Medical History Lower GI bleed requiring more than 4 units of blood in 24 hours, ICU, or surgery (07/2022) Abdominal bloating SOB (shortness of breath) Spondylolisthesis at L4-L5 level Compression fracture of L4 vertebra Compression fracture of thoracic vertebra Cerebellar stroke syndrome Incomplete bladder emptying Hydronephrosis Ureteral obstruction, right HX OF RIGHT URETEROSCOPY WITH STENT PLACEMENT Obstructive pyelonephritis Kidney stones Hemodialysis patient Chronic kidney disease (CKD) Pleural effusion on right Microcytic anemia Type 2 diabetes mellitus Hx of breast cancer History of peritoneal dialysis HTN (hypertension) Hyperlipidemia Hypothyroidism Cataract Closed fracture of left proximal humerus Surgical History History of cholecystectomy S/P hemodialysis catheter insertion Right IJ: Removed History of surgery Right-sided pleurodesis and Pleurx catheter placement S/P dialysis catheter insertion Peritoneal dialysis catheter placement x3 according to patient, revisions had to be performed in [facility] at an outside facility Hemodialysis catheter placement Hx of cataract surgery Hx of tonsillectomy H/O tubal ligation History of surgery on arm H/O skin graft History of lumpectomy of left breast H/O knee surgery History of kidney surgery Family History Mother Stroke Father Stroke Social History Smoking and tobacco/nicotine status: unknown if used tobacco/nicotine Alcohol intake: never Substance/Drug Use: never Lives independently: Yes Household members: spouse Marital status: Current occupational status: employed Do you think of yourself as: Straight/Heterosexual Current gender identity: Female Physical Exam Const: COMMON NORMALS: no acute distress, patient oriented x3, no limitations, healthy appearing, alert and well nourished OTHER: nontoxic HENMT: COMMON NORMALS: normocephalic and atraumatic HEAD & SCALP: normocephalic and atraumatic Neck/C-Spine: COMMON NORMALS: full ROM, supple and no meningeal signs Resp: COMMON NORMALS: normal respiratory effort, No use of accessory muscles and clear to auscultation bilaterally AUSCULTATION: clear to auscultation bilaterally Cardio: COMMON NORMALS: regular rate and regular rhythm RATE: regular rate RHYTHM: regular rhythm Extremity: NARRATIVE EXTREMITY EXAM: Postoperative incision to posterior left arm. There is swelling and erythema of the left proximal arm, warm to the touch. No palpable fluctuance in the area. Distal neurovascular exam is intact, good pulses and sensations. Does have range of motion intact at the left elbow. Negative tenderness to palpation. Neuro: COMMON NORMALS: patient oriented x3, moves all extremities, no focal motor deficits and no sensory deficits noted SENSORIUM/ORIENTATION: Yes alert MENINGEAL SIGNS: Yes no meningeal signs Course Vital Signs: Vital signs: Vital Signs Temperature 97.7 F 09/17/25 12:18 Pulse Rate 87 09/17/25 15:34 Respiratory Rate 18 09/17/25 12:18 Blood Pressure 122/45 09/17/25 15:34 Pulse Oximetry 99 09/17/25 15:34 Oxygen Delivery Me thod Room Air 09/17/25 14:39 MDM - General Adult Medical Decision Making This patient presented with redness and swelling to the left upper extremity, she is status post humeral repair back in June where she had ORIF. No distal sensory changes or strength changes in the left upper extremity, she has retains range of motion at the elbow and primarily the swelling is to the posterior left upper arm extending into the elbow. There is postoperative scar that appears well. There is mild warmth to the area of redness, concerning for cellulitis. With her being postop ultrasound was ordered which ruled out any blood clot. Labs were ultimately unremarkable, she is dialysis patient and is Thursday, these labs appear baseline. No significant leukocytosis, ESR and CRP are not significantly elevated. X-ray showing that the hardware is in place, and that the swelling is concerning for a cellulitis. She will be treated with Keflex, and with her being afebrile and systemically well and nontoxic-appearing we will have her treat outpatient and monitor her condition closely for any worsening, will return with any worsening. She agrees with this plan, verbalizes understanding to the return precautions. Lab Data 09/17/25 13:03 09/17/25 13:03 Radiology Impressions Humerus X-Ray 09/17/25 12:32 IMPRESSION: 1. Left humeral plate and screw fixation fixing the distal humeral fracture with near anatomic alignment and no hardware complications. 2. Swelling that might be postop versus cellulitis. No soft tissue emphysema. Venous Duplex 09/17/25 13:20 IMPRESSION: No evidence of deep vein thrombosis. Laboratory Results WBC 7.91 10^3/uL (3.29-11.43) 09/17/25 13:03 RBC 3.41 10^6/uL (3.85-5.65) L 09/17/25 13:03 Hgb 10.00 g/dL (11.27-16.99) L 09/17/25 13:03 Hct 30.9 % (36-47) L 09/17/25 13:03 MCV 90.6 fl (85-98) 09/17/25 13:03 MCH 29.3 pg (27-33) 09/17/25 13:03 MCHC 32.4 g/dL (30-55) 09/17/25 13:03 RDW 18.6 % (12.1-15.1) H 09/17/25 13:03 Plt Count 223 10^3/cmm (157-399) 09/17/25 13:03 MPV 10.9 fL (7.4-10.4) H 09/17/25 13:03 Neut % (Auto) 84.3 % 09/17/25 13:03 Lymph % (Auto) 7.6 % 09/17/25 13:03 [place] % (Auto) 6.7 % 09/17/25 13:03 Eos % (Auto) 0.4 % 09/17/25 13:03 Baso % (Auto) 0.5 % 09/17/25 13:03 Neut # (Auto) 6.67 10^3/uL (1.8-7.7) 09/17/25 13:03 Lymph # (Auto) 0.6 10^3/uL (0.8-4.8) L 09/17/25 13:03 [place] # (Auto) 0.5 10^3/uL (0.2-0.9) 09/17/25 13:03 Eos # (Auto) 0.0 10^3/uL (0.0-0.8) 09/17/25 13:03 Baso # (Auto) 0.0 10^3/uL (0.0-0.1) 09/17/25 13:03 Nucleated RBC % (auto) 0 % 09/17/25 13:03 Nucleated RBCs # 0.0 /100WBC 09/17/25 13:03 ESR 11 mm/hr (0-15) 09/17/25 13:03 Sodium 129 mmol/L (136-145) L 09/17/25 13:03 Potassium 3.3 mmol/L (3.5-5.1) L 09/17/25 13:03 Chloride 92 mmol/L (98-107) L 09/17/25 13:03 Carbon Dioxide 24 mmol/L (22-29) 09/17/25 13:03 Anion Gap 16.3 (5-19) 09/17/25 13:03 BUN 13 mg/dL (8-23) 09/17/25 13:03 Creatinine 2.4 mg/dL (0.5-0.9) H 09/17/25 13:03 GFR Calculation Not Reportable 09/17/25 13:03 Glucose 290 mg/dL (65-115) H 09/17/25 13:03 Calculated Osmolality 279 mOsm/kg (285-295) L 09/17/25 13:03 Calcium 8.8 mg/dL (8.5-10.5) 09/17/25 13:03 Total Bilirubin 0.7 mg/dL (0.15-1.2) 09/17/25 13:03 AST 15 U/L (0-32) 09/17/25 13:03 ALT 13 U/L (0-33) 09/17/25 13:03 Alkaline Phosphatase 148 U/L (35-105) H 09/17/25 13:03 C-Reactive Protein 15.2 mg/L (0.0-4.9) H 09/17/25 13:03 Total Protein 7.4 g/dL (6.6-8.7) 09/17/25 13:03 Albumin 4.0 g/dL (3.5-5.2) 09/17/25 13:03 Globulin 3.4 g/dL (1.3-4.6) 09/17/25 13:03 All radiology interpretation(s) finalized by discharge Discharge Plan Discharge Patient Disposition: Home Clinical Impression: Cellulitis of arm, left Condition: Stable Prescriptions: New cephalexin 500 mg capsule 500 mg PO Q6H 7 Days Qty: 28 0RF No Action amitriptyline 100 mg tablet 100 mg PO BEDTIME (DME) FreeStyle Anita 2 [place] Misc See Rx Instructions .Route Qty: 1 0RF Rx Instructions: check blood sugar (DME) FreeStyle Anita 2 Sensor Kit See Rx Instructions .Route Qty: 3 3RF Rx Instructions: check blood sugar (DME) wheel chair See Rx Instructions .Route .MEDSUPPLY Qty: 1 0RF Rx Instructions: As directed (DME) Sling See Rx Instructions .Route .MEDSUPPLY Qty: 1 0RF Rx Instructions: As directed Prolia 60 mg/mL syringe 60 mg SUBCUT .[id number] Qty: 1 0RF Rx Instructions: at infusions levothyroxine [Synthroid] 25 mcg tablet 25 mcg PO DAILY Qty: 90 1RF Rx Instructions: Along with 200mcg [id number] total tamsulosin 0.4 mg capsule 0.4 mg PO QAM ropinirole 1 mg tablet 1 mg PO BEDTIME RenaPlex-D 800 mcg-12.5 mg -2,000 unit tablet 1 tab PO QAM prednisolone acetate 1 % drops,suspension 1 drp ophthalmic (eye) QID glipizide 5 mg tablet 5 mg PO TID Dialyvite 800-Ultra D 0.8-2,000 mg-unit tablet 1 tab PO QAM gabapentin 100 mg capsule 100 mg PO BEDTIME ferric citrate [Auryxia] 210 mg iron tablet 1 tab PO TID levothyroxine 200 mcg tablet 200 mcg PO DAILY Rx Instructions: Along with 25mcg [id number] total midodrine 10 mg tablet 10 mg PO Q8H Ozempic 0.25 mg or 0.5 mg (2 mg/3 mL) pen injector 0.5 mg SUBCUT Q7D Discharge Orders: Discharge ED (Routine); Ordered 09/17/25 Ordered By: Bob Sagastume Referrals: Cesar Mendez MD [Primary Care Provider, Family Practice] Patient Instructions: Patient Portal & Maisha Instructions Activity Restrictions/Additional Instructions: Cellulitis Discharge Instructions You have been diagnosed with cellulitis (a skin infection) of your left arm. You are being treated with cephalexin (Keflex), an antibiotic. Please follow these instructions carefully to help your recovery: Medication Instructions - Take cephalexin as prescribed: one tablet four times a day for one week. Try to take it at evenly spaced times. - Finish the entire course, even if you start to feel better before it is done. - If you miss a dose, take it as soon as you remember. If it is almost time for your next dose, skip the missed dose?do not double up. - Common side effects include upset stomach or diarrhea. If you develop severe diarrhea, stop the medication and contact your doctor. Care for Your Arm - Keep your arm elevated as much as possible to reduce swelling and help healing. - Rest your arm and avoid strenuous activity until the infection improves. - Keep the skin clean and dry. You may gently wash with soap and water and pat dry. Monitor for Improvement - You should start to see improvement in redness, swelling, and pain within a few days. - If you do not notice improvement after 3-5 days, contact your doctor. Strict Return Precautions Return to the emergency department immediately if you experience any of the following: - Fever over 100.4?F (38?C) or chills - Increasing redness, swelling, or pain in your arm - Red streaks spreading from the area - Pus or drainage from the skin - Difficulty moving your arm or severe pain - Confusion, weakness, or feeling faint - Rapid heartbeat, trouble breathing, or chest pain Other Important Information - If you have kidney problems, let your doctor know, as the medication dose may need adjustment. - If you have any allergies to antibiotics, inform your healthcare provider. Follow-Up - Schedule a follow-up appointment with your primary care provider within one week, or sooner if symptoms worsen. If you have any questions or concerns, do not hesitate to contact your healthcare team. Print Language: Japanese Coding Level of Care Code ED Director Of Surgery for g [facility] Documented by User: Florian Gerber DO 09/17/25 15:47 HPI - General Adult General: Chief complaint: General Medical Stated complaint: Lt arm swollen Time Seen by Provider: 09/17/25 12:12 Related Data Home Medications ?Medication ?Instructions ?Recorded ?Confirmed amitriptyline 100 mg tablet 100 mg PO BEDTIME 10/02/20 09/17/25 tamsulosin 0.4 mg capsule 0.4 mg PO QAM 07/18/22 09/17/25 ropinirole 1 mg tablet 1 mg PO BEDTIME 02/27/23 09/17/25 vit B,C-folic ac 800 mcg-zinc 12.5 1 tab PO QAM 02/27/23 09/17/25 mg-selen-D3 2,000 unit-vit E tablet (RenaPlex-D) folic acid 0.8 mg-vit B comp with 1 tab PO QAM 08/29/23 09/17/25 R-qjvb-palbchn D3 2,000 unit tablet (Dialyvite 800-Ultra D) ferric citrate 210 mg iron tablet 1 tab PO TID 12/27/24 09/17/25 (Auryxia) gabapentin 100 mg capsule 100 mg PO BEDTIME 12/27/24 09/17/25 levothyroxine 200 mcg tablet 200 mcg PO DAILY 06/22/25 09/17/25 glipizide 5 mg tablet 5 mg PO TID 07/11/25 09/17/25 prednisolone acetate 1 % eye 1 drp ophthalmic (eye) QID 07/11/25 09/17/25 drops,suspension midodrine 10 mg tablet 10 mg PO Q8H 09/17/25 09/17/25 semaglutide 0.25 mg or 0.5 mg (2 0.5 mg SUBCUT Q7D 09/17/25 09/17/25 mg/3 mL) subcutaneous pen injector ([employer]) Previous Rx's ?Medication ?Instructions ?Recorded flash glucose scanning reader #1 ea 12/15/22 (FreeStyle Anita 2 [place]) flash glucose sensor (FreeStyle #3 ea 12/15/22 Anita 2 Sensor kit) wheel chair #1 ea 04/30/23 denosumab 60 mg/mL subcutaneous 60 mg SUBCUT .[id number] #1 mL 06/11/24 syringe (Prolia) levothyroxine 25 mcg tablet 25 mcg PO DAILY #90 tabs 06/09/25 (Synthroid) Sling #1 ea 07/06/25 cephalexin 500 mg capsule 500 mg PO Q6H 7 days #28 caps 09/17/25 Allergies Allergy/AdvReac Type Severity Reaction Status Date / Time Penicillins Allergy Mild ALGY-Rash Verified 08/03/25 13:52 propoxyphene (From Darvon) Allergy Mild ALGY-Rash Verified 08/03/25 13:52 codeine Allergy ALGY-Rash Verified 08/03/25 13:52 PFSH ED PFSH: Medical History Lower GI bleed requiring more than 4 units of blood in 24 hours, ICU, or surgery (07/2022) Abdominal bloating SOB (shortness of breath) Spondylolisthesis at L4-L5 level Compression fracture of L4 vertebra Compression fracture of thoracic vertebra Cerebellar stroke syndrome Incomplete bladder emptying Hydronephrosis Ureteral obstruction, right HX OF RIGHT URETEROSCOPY WITH STENT PLACEMENT Obstructive pyelonephritis Kidney stones Hemodialysis patient Chronic kidney disease (CKD) Pleural effusion on right Microcytic anemia Type 2 diabetes mellitus Hx of breast cancer History of peritoneal dialysis HTN (hypertension) Hyperlipidemia Hypothyroidism Cataract Closed fracture of left proximal humerus Surgical History History of cholecystectomy S/P hemodialysis catheter insertion Right IJ: Removed History of surgery Right-sided pleurodesis and Pleurx catheter placement S/P dialysis catheter insertion Peritoneal dialysis catheter placement x3 according to patient, revisions had to be performed in [facility] at an outside facility Hemodialysis catheter placement Hx of cataract surgery Hx of tonsillectomy H/O tubal ligation History of surgery on arm H/O skin graft History of lumpectomy of left breast H/O knee surgery History of kidney surgery Family History Mother Stroke Father Stroke Social History Smoking and tobacco/nicotine status: unknown if used tobacco/nicotine Alcohol intake: never Substance/Drug Use: never Lives independently: Yes Household members: spouse Marital status: Current occupational status: employed Do you think of yourself as: Straight/Heterosexual Current gender identity: Female Course Vital Signs: Vital signs: Vital Signs Temperature 97.7 F 09/17/25 12:18 Pulse Rate 87 09/17/25 15:34 Respiratory Rate 18 09/17/25 12:18 Blood Pressure 122/45 09/17/25 15:34 Pulse Oximetry 99 09/17/25 15:34 Oxygen Delivery Me thod Room Air 09/17/25 14:39 MDM - General Adult Medical Decision Making This patient presented with redness and swelling to the left upper extremity, she is status post humeral repair back in June where she had ORIF. No distal sensory changes or strength changes in the left upper extremity, she has retains range of motion at the elbow and primarily the swelling is to the posterior left upper arm extending into the elbow. There is postoperative scar that appears well. There is mild warmth to the area of redness, concerning for cellulitis. With her being postop ultrasound was ordered which ruled out any blood clot. Labs were ultimately unremarkable, she is dialysis patient and is Thursday, these labs appear baseline. No significant leukocytosis, ESR and CRP are not significantly elevated. X-ray showing that the hardware is in place, and that the swelling is concerning for a cellulitis. She will be treated with Keflex, and with her being afebrile and systemically well and nontoxic-appearing we will have her treat outpatient and monitor her condition closely for any worsening, will return with any worsening. She agrees with this plan, verbalizes understanding to the return precautions. Chart reviewed Lab Data 09/17/25 13:03 09/17/25 13:03 Radiology Impressions Humerus X-Ray 09/17/25 12:32 IMPRESSION: 1. Left humeral plate and screw fixation fixing the distal humeral fracture with near anatomic alignment and no hardware complications. 2. Swelling that might be postop versus cellulitis. No soft tissue emphysema. Venous Duplex 09/17/25 13:20 IMPRESSION: No evidence of deep vein thrombosis. Laboratory Results WBC 7.91 10^3/uL (3.29-11.43) 09/17/25 13:03 RBC 3.41 10^6/uL (3.85-5.65) L 09/17/25 13:03 Hgb 10.00 g/dL (11.27-16.99) L 09/17/25 13:03 Hct 30.9 % (36-47) L 09/17/25 13:03 MCV 90.6 fl (85-98) 09/17/25 13:03 MCH 29.3 pg (27-33) 09/17/25 13:03 MCHC 32.4 g/dL (30-55) 09/17/25 13:03 RDW 18.6 % (12.1-15.1) H 09/17/25 13:03 Plt Count 223 10^3/cmm (157-399) 09/17/25 13:03 MPV 10.9 fL (7.4-10.4) H 09/17/25 13:03 Neut % (Auto) 84.3 % 09/17/25 13:03 Lymph % (Auto) 7.6 % 09/17/25 13:03 [place] % (Auto) 6.7 % 09/17/25 13:03 Eos % (Auto) 0.4 % 09/17/25 13:03 Baso % (Auto) 0.5 % 09/17/25 13:03 Neut # (Auto) 6.67 10^3/uL (1.8-7.7) 09/17/25 13:03 Lymph # (Auto) 0.6 10^3/uL (0.8-4.8) L 09/17/25 13:03 [place] # (Auto) 0.5 10^3/uL (0.2-0.9) 09/17/25 13:03 Eos # (Auto) 0.0 10^3/uL (0.0-0.8) 09/17/25 13:03 Baso # (Auto) 0.0 10^3/uL (0.0-0.1) 09/17/25 13:03 Nucleated RBC % (auto) 0 % 09/17/25 13:03 Nucleated RBCs # 0.0 /100WBC 09/17/25 13:03 ESR 11 mm/hr (0-15) 09/17/25 13:03 Sodium 129 mmol/L (136-145) L 09/17/25 13:03 Potassium 3.3 mmol/L (3.5-5.1) L 09/17/25 13:03 Chloride 92 mmol/L (98-107) L 09/17/25 13:03 Carbon Dioxide 24 mmol/L (22-29) 09/17/25 13:03 Anion Gap 16.3 (5-19) 09/17/25 13:03 BUN 13 mg/dL (8-23) 09/17/25 13:03 Creatinine 2.4 mg/dL (0.5-0.9) H 09/17/25 13:03 GFR Calculation Not Reportable 09/17/25 13:03 Glucose 290 mg/dL (65-115) H 09/17/25 13:03 Calculated Osmolality 279 mOsm/kg (285-295) L 09/17/25 13:03 Calcium 8.8 mg/dL (8.5-10.5) 09/17/25 13:03 Total Bilirubin 0.7 mg/dL (0.15-1.2) 09/17/25 13:03 AST 15 U/L (0-32) 09/17/25 13:03 ALT 13 U/L (0-33) 09/17/25 13:03 Alkaline Phosphatase 148 U/L (35-105) H 09/17/25 13:03 C-Reactive Protein 15.2 mg/L (0.0-4.9) H 09/17/25 13:03 Total Protein 7.4 g/dL (6.6-8.7) 09/17/25 13:03 Albumin 4.0 g/dL (3.5-5.2) 09/17/25 13:03 Globulin 3.4 g/dL (1.3-4.6) 09/17/25 13:03 Discharge Plan Discharge Patient Disposition: Home Clinical Impression: Cellulitis of arm, left Condition: Stable Prescriptions: New cephalexin 500 mg capsule 500 mg PO Q6H 7 Days Qty: 28 0RF No Action amitriptyline 100 mg tablet 100 mg PO BEDTIME (DME) FreeStyle Anita 2 [place] Misc See Rx Instructions .Route Qty: 1 0RF Rx Instructions: check blood sugar (DME) FreeStyle Anita 2 Sensor Kit See Rx Instructions .Route Qty: 3 3RF Rx Instructions: check blood sugar (DME) wheel chair See Rx Instructions .Route .MEDSUPPLY Qty: 1 0RF Rx Instructions: As directed (DME) Sling See Rx Instructions .Route .MEDSUPPLY Qty: 1 0RF Rx Instructions: As directed Prolia 60 mg/mL syringe 60 mg SUBCUT .[id number] Qty: 1 0RF Rx Instructions: at infusions levothyroxine [Synthroid] 25 mcg tablet 25 mcg PO DAILY Qty: 90 1RF Rx Instructions: Along with 200mcg [id number] total tamsulosin 0.4 mg capsule 0.4 mg PO QAM ropinirole 1 mg tablet 1 mg PO BEDTIME RenaPlex-D 800 mcg-12.5 mg -2,000 unit tablet 1 tab PO QAM prednisolone acetate 1 % drops,suspension 1 drp ophthalmic (eye) QID glipizide 5 mg tablet 5 mg PO TID Dialyvite 800-Ultra D 0.8-2,000 mg-unit tablet 1 tab PO QAM gabapentin 100 mg capsule 100 mg PO BEDTIME ferric citrate [Auryxia] 210 mg iron tablet 1 tab PO TID levothyroxine 200 mcg tablet 200 mcg PO DAILY Rx Instructions: Along with 25mcg [id number] total midodrine 10 mg tablet 10 mg PO Q8H Ozempic 0.25 mg or 0.5 mg (2 mg/3 mL) pen injector 0.5 mg SUBCUT Q7D Discharge Orders: Discharge ED (Routine); Ordered 09/17/25 Ordered By: Bob Sagastume Referrals: Cesar Mendez MD [Primary Care Provider, [facility]] Patient Instructions: Patient Portal & Maisha Instructions Activity Restrictions/Additional Instructions: Cellulitis Discharge Instructions You have been diagnosed with cellulitis (a skin infection) of your left arm. You are being treated with cephalexin (Keflex), an antibiotic. Please follow these instructions carefully to help your recovery: Medication Instructions - Take cephalexin as prescribed: one tablet four times a day for one week. Try to take it at evenly spaced times. - Finish the entire course, even if you start to feel better before it is done. - If you miss a dose, take it as soon as you remember. If it is almost time for your next dose, skip the missed dose?do not double up. - Common side effects include upset stomach or diarrhea. If you develop severe diarrhea, stop the medication and contact your doctor. Care for Your Arm - Keep your arm elevated as much as possible to reduce swelling and help healing. - Rest your arm and avoid strenuous activity until the infection improves. - Keep the skin clean and dry. You may gently wash with soap and water and pat dry. Monitor for Improvement - You should start to see improvement in redness, swelling, and pain within a few days. - If you do not notice improvement after 3-5 days, contact your doctor. Strict Return Precautions Return to the emergency department immediately if you experience any of the following: - Fever over 100.4?F (38?C) or chills - Increasing redness, swelling, or pain in your arm - Red streaks spreading from the area - Pus or drainage from the skin - Difficulty moving your arm or severe pain - Confusion, weakness, or feeling faint - Rapid heartbeat, trouble breathing, or chest pain Other Important Information - If you have kidney problems, let your doctor know, as the medication dose may need adjustment. - If you have any allergies to antibiotics, inform your healthcare provider. Follow-Up - Schedule a follow-up appointment with your primary care provider within one week, or sooner if symptoms worsen. If you have any questions or concerns, do not hesitate to contact your healthcare team. Print Language: Japanese Coding Level of Care Code ED Director Of Surgery for Supriya Byers
[2025-09-17 12:51] VITALS: BP 175/76; PULSE 86; O2SAT 98
--- NOTE | 2025-09-17 13:01 | PC.NURSE ---
Pt states she has a chest port left side and wants her port accessed for blood work. Lilly DELGADO notified and okayed. Pt aware of plan.
[2025-09-17 13:12] LABS: Hematocrit 30.9 % (36-47); Hemoglobin 10.00 g/dL (11.27-16.99); Mean Corpuscular HGB Conc 32.4 g/dL (30-55); Mean Corpuscular Hemoglobin 29.3 pg (27-33); Mean Corpuscular Volume 90.6 fl (85-98); Nucleated Red Blood Cells % 0 %; Platelet Count 223 10^3/cmm (157-399); Red Blood Count 3.41 10^6/uL (3.85-5.65); White Blood Count 7.91 10^3/uL (3.29-11.43)
--- NOTE | 2025-09-17 13:20 | USR_ITS ---
PROCEDURE INFORMATION: Exam: US Duplex Left Upper Extremity Veins, Limited Exam date and time: 09/17/2025 1:49 PM Age: 75 years old Clinical indication: Pain; Arm, upper; Prior surgery; Surgery date: 1-6 months; Surgery type: Surgery on left arm in June; Additional info: Redness, swelling TECHNIQUE: Imaging protocol: Real-time duplex ultrasound of the left extremity with 2-D venegas scale, color Doppler flow and spectral waveform analysis including responses to compression and other maneuvers (when performed) with image documentation. Limited exam focused on the left upper extremity veins. COMPARISON: [place] [id number] 06/28/2025 2:49 PM FINDINGS: Left deep veins: Unremarkable. Axillary and brachial veins are patent throughout without thrombus. Normal Doppler waveforms. Normal compressibility and/or augmentation response. Visualized internal jugular and subclavian veins are patent. Superficial veins: Unremarkable. Visualized cephalic and basilic veins are patent without thrombus. Soft tissues: Soft tissue swelling with interstitial subcutaneous edema. US/[place] [id number] IMPRESSION: No evidence of deep vein thrombosis.
[2025-09-17 13:27] LABS: Alanine Aminotransferase 13 U/L (0-33); Albumin Level 4.0 g/dL (3.5-5.2); Alkaline Phosphatase 148 U/L (35-105); Anion Gap 16.3 (5-19); Aspartate Amino Transferase 15 U/L (0-32); Blood Urea Nitrogen 13 mg/dL (8-23); Calcium 8.8 mg/dL (8.5-10.5); Carbon Dioxide 24 mmol/L (22-29); Chloride 92 mmol/L (98-107); Creatinine Clr Calc Pharmacy 16.8277; Globulin 3.4 g/dL (1.3-4.6); Glucose 290 mg/dL (65-115); Osmolality Calculated 279 mOsm/kg (285-295); Potassium 3.3 mmol/L (3.5-5.1); Sodium 129 mmol/L (136-145); Total Protein 7.4 g/dL (6.6-8.7)
[2025-09-17 14:39] VITALS: BP 122/45; PULSE 85; O2SAT 97
[2025-09-17 15:34] VITALS: BP 122/45; PULSE 87; O2SAT 99
--- NOTE | 2025-09-17 15:34 | PC.NURSE ---
pt's port was de-accessed by Lilly DELGADO.
== END 2025-09-17 15:35 | disposition home or self-care (01) ==
PROVIDERS: Emergency Provider Physician Assistant; PCP Family Medicine
DX: L03.114 Cellulitis of left upper limb (principal); E78.5 Hyperlipidemia, unspecified; E11.22 Type 2 diabetes mellitus with diabetic chronic kidney disease; I12.9 Hypertensive chronic kidney disease with stage 1 through stage 4 chronic kidney disease, or unspecified chronic kidney disease; N18.9 Chronic kidney disease, unspecified; Z85.3 Personal history of malignant neoplasm of breast
CPT/HCPCS: 73060; 80053; 85025; 85651; 86140; 93971; 99284

== ENCOUNTER → 2025-09-21 12:56 | Outpatient (BNVA) | payer MEDICARE, OTHER, SELFPAY | PROVIDERS: PCP Family Medicine; Visit Provider Orthopaedic Surgery | DX: Z47.89 Encounter for other orthopedic aftercare (principal); L03.114 Cellulitis of left upper limb | CPT/HCPCS: 73060; 99024 ==

== ENCOUNTER → 2025-09-25 14:58 | Outpatient (BNVA) | payer MEDICARE, OTHER, SELFPAY | PROVIDERS: PCP Family Medicine; Visit Provider Thoracic Surgery (Cardiothoracic Vascular Surgery) | DX: I96 Gangrene, not elsewhere classified (principal); S41.112A Laceration without foreign body of left upper arm, initial encounter; X58.XXXA Exposure to other specified factors, initial encounter | CPT/HCPCS: 97597; 97598; 99213 ==

== ENCOUNTER 2025-09-27 11:31 | Inpatient (IN) | payer MEDICARE, OTHER, SELFPAY ==
[2025-09-27] VITALS (17 sets, daily range): BP systolic 110–158; BP diastolic 45–78; PULSE 55–77; RESP 16–20; TEMP 36.5–36.7; O2SAT 90–100
--- NOTE | 2025-09-27 11:36 | XR_ITS ---
WS: [id number] XR chest 1V portable [id number] REASON FOR EXAM: Weakness FINDINGS: Compared to the previous examination of 08/02/2025, the opacification in the left lower lobe appears to have resolved. The left pleural effusion appears to have resolved. There is still blunting of the right costophrenic angle indicating a small right pleural effusion. No interval development of an acute or subacute pulmonary parenchymal or pleural abnormality is identified. There is significant tortuosity and ectasia of the thoracic aorta with mild cardiomegaly. Mild central pulmonary venous congestion. Chemotherapy infusion port and catheter on the left unchanged compared to the previous examination. XR/XR chest 1V portable [id number] IMPRESSION: Presumed small remnant right pleural effusion. No acute/subacute pulmonary pare nchymal or pleural abnormality.
--- NOTE | 2025-09-27 11:36 | CTR_ITS ---
PROCEDURE INFORMATION: Exam: CT Head Without Contrast Exam date and time: 09/27/2025 12:48 PM Age: 75 years old Clinical indication: Altered mental status/memory loss; Additional info: Encephalopathy, altered mental status TECHNIQUE: Imaging protocol: Computed tomography of the head without contrast. Radiation optimization: All CT scans at this facility use at least one of these dose optimization techniques: automated exposure control; mA and/or kV adjustment per patient size (includes targeted exams where dose is matched to clinical indication); or iterative reconstruction. COMPARISON: CT head wo con* [id number] 07/11/2025 1:20 PM RADIATION DOSE METRICS: Total DLP (mGy-cm): 1293.12 FINDINGS: Brain: Moderate nonspecific white matter low attenuation which may be related to microvascular ischemic changes. No acute confluent lobar ischemic infarct. No acute intracranial hemorrhage. Stable extra-axial lesion overlying the left parietal vertex measuring up to 2.3 cm. Cerebral ventricles: The ventricles and sulci are prominent in size compatible with moderate atrophy. Paranasal sinuses: Mucous retention cyst versus polyp in the right maxillary sinus measuring up to 0.9 cm. Mastoid air cells: Fluid is seen in the left mastoid air cells and left middle ear. Orbital cavities: Right globe phthsis bulbi. Bones: No acute calvarial fracture. Soft tissues: Visualized soft tissues are unremarkable. CT/CT head wo con* [id number] IMPRESSION: 1. No acute intracranial abnormality. If symptoms persist, consider further evaluation with MRI, if there are no contraindications to obtaining a MRI scan. 2. Stable extra-axial lesion overlying the left parietal vertex measuring up to 2.3 cm. Recommend clinical correlation and follow-up imaging as clinically warranted.
[2025-09-27 12:13] LABS: Glucose Urine UA 2+ (Normal); Nitrate Urine Negative (Negative); Specific Gravity, Urine 1.022 (1.005-1.030)
--- NOTE | 2025-09-27 12:24 | W.ED.AMS ---
HPI - Altered Mental Status General: Chief Complaint: Altered Mental Status Stated Complaint: AMS Time Seen by Provider: 09/27/25 11:32 History of Present Illness: 75-year-old female with a history of end-stage renal disease on dialysis, hypertension, type 2 diabetes mellitus, hyperlipidemia and hypothyroidism who presents emergency room by ambulance from dialysis with concerns for confusion and altered mental status. She also has generalized weakness. No focal deficits. She can tell me her name and her birthdate but her says she was so weak he had to feed her this morning and that she still seems very altered. Related Data Home Medications ?Medication ?Instructions ?Recorded ?Confirmed amitriptyline 100 mg tablet 100 mg PO BEDTIME 10/02/20 09/25/25 tamsulosin 0.4 mg capsule 0.4 mg PO QAM 07/18/22 09/25/25 ropinirole 1 mg tablet 1 mg PO BEDTIME 02/27/23 09/25/25 vit B,C-folic ac 800 mcg-zinc 12.5 1 tab PO QAM 02/27/23 09/25/25 mg-selen-D3 2,000 unit-vit E tablet (RenaPlex-D) folic acid 0.8 mg-vit B comp with 1 tab PO QAM 08/29/23 09/25/25 D-mfzi-mnlzlpq D3 2,000 unit tablet (Dialyvite 800-Ultra D) ferric citrate 210 mg iron tablet 1 tab PO TID 12/27/24 09/25/25 (Auryxia) gabapentin 100 mg capsule 100 mg PO BEDTIME 12/27/24 09/25/25 levothyroxine 200 mcg tablet 200 mcg PO DAILY 06/22/25 09/25/25 glipizide 5 mg tablet 5 mg PO TID 07/11/25 09/25/25 prednisolone acetate 1 % eye 1 drp ophthalmic (eye) QID 07/11/25 09/25/25 drops,suspension midodrine 10 mg tablet 10 mg PO Q8H 09/17/25 09/25/25 semaglutide 0.25 mg or 0.5 mg (2 0.5 mg SUBCUT Q7D 09/17/25 09/25/25 mg/3 mL) subcutaneous pen injector (Ozempic) Previous Rx's ?Medication ?Instructions ?Recorded flash glucose scanning reader #1 ea 12/15/22 (FreeStyle Anita 2 [place]) flash glucose sensor (FreeStyle #3 ea 12/15/22 Anita 2 Sensor kit) wheel chair #1 ea 04/30/23 denosumab 60 mg/mL subcutaneous 60 mg SUBCUT .a7rwlrtd #1 mL 06/11/24 syringe (Prolia) levothyroxine 25 mcg tablet 25 mcg PO DAILY #90 tabs 06/09/25 (Synthroid) Sling #1 ea 07/06/25 Allergies Allergy/AdvReac Type Severity Reaction Status Date / Time Penicillins Allergy Mild ALGY-Rash Verified 09/21/25 07:53 propoxyphene (From Darvon) Allergy Mild ALGY-Rash Verified 09/21/25 07:53 codeine Allergy ALGY-Rash Verified 09/21/25 07:53 Review of Systems Narrative: Constitutional symptoms: Negative except as documented in HPI. Skin symptoms: Negative except as documented in HPI. Eye symptoms: Negative except as documented in HPI. ENMT symptoms: Negative except as documented in HPI. Respiratory symptoms: Negative except as documented in HPI. Cardiovascular symptoms: Negative except as documented in HPI. Gastrointestinal symptoms: Negative except as documented in HPI. Genitourinary symptoms: Negative except as documented in HPI. Musculoskeletal symptoms: Negative except as documented in HPI. Neurologic symptoms: Negative except as documented in HPI. Psychiatric symptoms: Negative except as documented in HPI. Endocrine symptoms: Negative except as documented in HPI. PFS ED PFSH: Medical History (Updated 09/27/25 @ 13:33 by Lexi Bennett MD) Lower GI bleed requiring more than 4 units of blood in 24 hours, ICU, or surgery (07/2022) Abdominal bloating SOB (shortness of breath) Spondylolisthesis at L4-L5 level Compression fracture of L4 vertebra Compression fracture of thoracic vertebra Cerebellar stroke syndrome Incomplete bladder emptying Hydronephrosis Ureteral obstruction, right HX OF RIGHT URETEROSCOPY WITH STENT PLACEMENT Obstructive pyelonephritis Kidney stones Hemodialysis patient Chronic kidney disease (CKD) Pleural effusion on right Microcytic anemia Type 2 diabetes mellitus Hx of breast cancer History of peritoneal dialysis HTN (hypertension) Hyperlipidemia Hypothyroidism Cataract Closed fracture of left proximal humerus Surgical History History of cholecystectomy S/P hemodialysis catheter insertion Right IJ: Removed History of surgery Right-sided pleurodesis and Pleurx catheter placement S/P dialysis catheter insertion Peritoneal dialysis catheter placement x3 according to patient, revisions had to be performed in [facility] at an outside facility Hemodialysis catheter placement Hx of cataract surgery Hx of tonsillectomy H/O tubal ligation History of surgery on arm H/O skin graft History of lumpectomy of left breast H/O knee surgery History of kidney surgery Family History Mother Stroke Father Stroke Social History Smoking and tobacco/nicotine status: never used tobacco/nicotine Alcohol intake: never Substance/Drug Use: never Lives independently: Yes Household members: spouse Marital status: Current occupational status: employed Do you think of yourself as: Straight/Heterosexual Current gender identity: Female Physical Exam Narrative: General: Somnolent, no acute distress. Skin: Warm, dry. Head: Normocephalic, atraumatic. Neck: Supple, trachea midline. Eye: Extraocular movements are intact. Ears, nose, mouth and throat: mucosa moist. Cardiovascular: Regular, Normal peripheral perfusion. 2+ edema with venous stasis dermatitis and redness Respiratory: Lungs are clear to auscultation, respirations are non-labored, breath sounds are equal, Symmetrical chest wall expansion. Gastrointestinal: Soft, Nontender, Non distended Musculoskeletal: Normal ROM, no deformity. Neurological: Somnolent but arousable. She tells me her name and her birthdate but when I try to ask more complicated questions she just mumbles., No focal neurological deficit observed. Psychiatric: Cooperative, appropriate mood & affect. Course Vital Signs: Vital signs: Vital Signs Temperature 97.7 F 09/27/25 11:36 Pulse Rate 63 09/27/25 13:30 Respiratory Rate 16 09/27/25 13:30 Blood Pressure 131/45 09/27/25 13:30 Pulse Oximetry 100 09/27/25 13:30 Oxygen Delivery Me thod Room Air 09/27/25 13:30 MDM - Altered Mental Status Medical Decision Making Medical decision making Patient's reason for coming to the emergency room: Social determinants: Patient is retired and . I reviewed the patient's medical record. 75-year-old female with a history of end-stage renal disease on dialysis, hypertension, type 2 diabetes mellitus, hyperlipidemia and hypothyroidism I reviewed the patient's current home meds Alternate historians: Majority of history given by the . Differential diagnosis including but not limited to and based on the above HPI, review of systems and physical exam: In this patient with altered mental status: Stroke. Hypoglycemia. Metabolic encephalopathy. Infections such as pneumonia, urinary tract infection, Covid-19, Influenza. Electrolyte abnormalities such as hypernatremia. Renal failure / uremia. Hepatic encephalopathy. Hypoxemia. Hypercapnic respiratory failure. Psychosis. Drug or alcohol intoxication. Medication overdose. Orders placed to evaluate differential diagnosis based on the above differential, HPI and physical exam Chest x-ray: Small right pleural effusion. No acute process. No infiltrate. No pneumothorax. This was reviewed and interpreted by myself the emergency room physician. I also reviewed the radiology report. CT head: No acute intracranial process. No intracranial hemorrhage, no evidence of infarct. No evidence of acute fracture. This was reviewed and interpreted by myself the emergency room physician. I also reviewed the radiology report. Lab Review: Laboratory results were reviewed and interpreted by myself the emergency room physician. Leukopenia. Stable anemia. BUN and creatinine are 9 and 1.9 with a potassium of 2.9 which would be expected in this dialysis patient. Assessment of risk: Level of risk: High risk patient. End-stage renal disease on dialysis, multiple comorbidities, elderly Hospitalization considerations: Reexamination: Patient remains quite somnolent. says she is nowhere near her baseline. Consultation: I spoke with Dr. Dr. Huerta who is on-call for the hospitalist service who agrees to admission. Assessment and plan: Metabolic encephalopathy Urinary tract infection ?IV Rocephin in the emergency room. -I discussed the patient with the hospitalist on-call who is admitting the patient. - Discussed findings and plan with patient. Answered any questions. - All laboratory values were reviewed and interpreted personally by myself, the ER physician - All imaging was reviewed and interpreted personally by myself, the ER physician. - Evaluation and treatment of this problem were appropriate in the emergency setting Lab Data 09/27/25 12:00 09/27/25 12:00 Radiology Impressions Chest X-Ray 09/27/25 11:36 IMPRESSION: Presumed small remnant right pleural effusion. No acute/subacute pulmonary parenchymal or pleural abnormality. Head CT 09/27/25 11:36 IMPRESSION: 1. No acute intracranial abnormality. If symptoms persist, consider further evaluation with MRI, if there are no contraindications to obtaining a MRI scan. 2. Stable extra-axial lesion overlying the left parietal vertex measuring up to 2.3 cm. Recommend clinical correlation and follow-up imaging as clinically warranted. Laboratory Results WBC 3.82 10^3/uL (3.29-11.43) 09/27/25 12:00 RBC 3.53 10^6/uL (3.85-5.65) L 09/27/25 12:00 Hgb 10.30 g/dL (11.27-16.99) L 09/27/25 12:00 Hct 32.1 % (36-47) L 09/27/25 12:00 MCV 90.9 fl (85-98) 09/27/25 12:00 MCH 29.2 pg (27-33) 09/27/25 12:00 MCHC 32.1 g/dL (30-55) 09/27/25 12:00 RDW 18.4 % (12.1-15.1) H 09/27/25 12:00 Plt Count 149 10^3/cmm (157-399) L 09/27/25 12:00 MPV 11.3 fL (7.4-10.4) H 09/27/25 12:00 Neut % (Auto) 66.8 % 09/27/25 12:00 Lymph % (Auto) 18.6 % 09/27/25 12:00 Monroe % (Auto) 10.5 % 09/27/25 12:00 Eos % (Auto) 2.6 % 09/27/25 12:00 Baso % (Auto) 1.0 % 09/27/25 12:00 Neut # (Auto) 2.55 10^3/uL (1.8-7.7) 09/27/25 12:00 Lymph # (Auto) 0.7 10^3/uL (0.8-4.8) L 09/27/25 12:00 Monroe # (Auto) 0.4 10^3/uL (0.2-0.9) 09/27/25 12:00 Eos # (Auto) 0.1 10^3/uL (0.0-0.8) 09/27/25 12:00 Baso # (Auto) 0.0 10^3/uL (0.0-0.1) 09/27/25 12:00 Nucleated RBC % (auto) 0 % 09/27/25 12:00 Nucleated RBCs # 0.0 /100WBC 09/27/25 12:00 Sodium 134 mmol/L (136-145) L 09/27/25 12:00 Potassium 2.9 mmol/L (3.5-5.1) L 09/27/25 12:00 Chloride 95 mmol/L (98-107) L 09/27/25 12:00 Carbon Dioxide 31 mmol/L (22-29) H 09/27/25 12:00 Anion Gap 10.9 (5-19) 09/27/25 12:00 BUN 9 mg/dL (8-23) 09/27/25 12:00 Creatinine 1.9 mg/dL (0.5-0.9) H 09/27/25 12:00 GFR Calculation Not Reportable 09/27/25 12:00 Glucose 179 mg/dL (65-115) H 09/27/25 12:00 Calculated Osmolality 281 mOsm/kg (285-295) L 09/27/25 12:00 Lactic Acid 0.7 mmol/L (0.5-2.2) 09/27/25 12:00 Calcium 8.7 mg/dL (8.5-10.5) 09/27/25 12:00 Phosphorus 2.2 mg/dL (2.5-4.5) L 09/27/25 12:00 Total Bilirubin 0.6 mg/dL (0.15-1.2) 09/27/25 12:00 AST 10 U/L (0-32) 09/27/25 12:00 ALT 10 U/L (0-33) 09/27/25 12:00 Alkaline Phosphatase 125 U/L (35-105) H 09/27/25 12:00 C-Reactive Protein 12.6 mg/L (0.0-4.9) H 09/27/25 12:00 Total Protein 6.6 g/dL (6.6-8.7) 09/27/25 12:00 Albumin 3.7 g/dL (3.5-5.2) 09/27/25 12:00 Globulin 2.9 g/dL (1.3-4.6) 09/27/25 12:00 Procalcitonin 0.10 ng/mL (0-0.5) 09/27/25 12:00 Urine Color Dark yellow (Yellow) A 09/27/25 12:00 Urine Appearance Cloudy (CLEAR) A 09/27/25 12:00 Urine pH 5.5 (5-7) 09/27/25 12:00 Ur Specific Ford 1.022 (1.005-1.030) 09/27/25 12:00 Urine Protein 3+ (Negative) A 09/27/25 12:00 Urine Glucose (UA) 2+ (Normal) H 09/27/25 12:00 Urine Ketones Trace (Negative) 09/27/25 12:00 Urine Blood Negative (Negative) 09/27/25 12:00 Urine Nitrate Negative (Negative) 09/27/25 12:00 Urine Bilirubin 1+ (Negative) H 09/27/25 12:00 Urine Urobilinogen 1.0 mg/dL (Negative) 09/27/25 12:00 Ur Leukocyte Esterase 1+ (Negative) A 09/27/25 12:00 Urine RBC 11-20 /hpf (0-2) H 09/27/25 12:00 Urine WBC 11-20 /hpf (0-5) H 09/27/25 12:00 Ur Squamous Epith Cells 11-20 /hpf (0-5) H 09/27/25 12:00 Amorphous Sediment 1+ /hpf 09/27/25 12:00 Urine Bacteria Trace /hpf (NONE) 09/27/25 12:00 Hyaline Casts 32.24 /lpf 09/27/25 12:00 Urine Yeast Trace /hpf 09/27/25 12:00 All radiology interpretation(s) finalized by discharge Discharge Plan Discharge Patient Disposition: Admitted As Inpatient Clinical Impression: Urinary tract infection, Acute metabolic encephalopathy, End stage renal disease on dialysis Condition: Stable Coding Level of Care Code ED Railroad Firer/Fireman for Supriya Byers
[2025-09-27 12:25] LABS: Hematocrit 32.1 % (36-47); Hemoglobin 10.30 g/dL (11.27-16.99); Mean Corpuscular HGB Conc 32.1 g/dL (30-55); Mean Corpuscular Hemoglobin 29.2 pg (27-33); Mean Corpuscular Volume 90.9 fl (85-98); Nucleated Red Blood Cells % 0 %; Platelet Count 149 10^3/cmm (157-399); Red Blood Count 3.53 10^6/uL (3.85-5.65); White Blood Count 3.82 10^3/uL (3.29-11.43)
[2025-09-27 12:38] LABS: Alanine Aminotransferase 10 U/L (0-33); Albumin Level 3.7 g/dL (3.5-5.2); Alkaline Phosphatase 125 U/L (35-105); Anion Gap 10.9 (5-19); Aspartate Amino Transferase 10 U/L (0-32); Blood Urea Nitrogen 9 mg/dL (8-23); Calcium 8.7 mg/dL (8.5-10.5); Carbon Dioxide 31 mmol/L (22-29); Chloride 95 mmol/L (98-107); Globulin 2.9 g/dL (1.3-4.6); Glucose 179 mg/dL (65-115); Lactic Sepsis W/Reflex 0.7 mmol/L (0.5-2.2); Osmolality Calculated 281 mOsm/kg (285-295); Sodium 134 mmol/L (136-145); Total Protein 6.6 g/dL (6.6-8.7)
[2025-09-27] MEDS: morphine 4 mg/mL SDV 1 mL IVP ×2 (12:42→16:33)
[2025-09-27] MEDS: ondansetron 2 mg/ML SDV 2 mL 4 MG IVP (12:43)
[2025-09-27 12:45] LABS: Procalcitonin 0.10 ng/mL (0-0.5)
[2025-09-27 12:47] LABS: Potassium 2.9 mmol/L (3.5-5.1)
[2025-09-27 12:50] LABS: UA Slide Review UA Slide Review Perf
[2025-09-27] MEDS: cefTRIAXone 1,000 mg SDV 1000 MG IVP (13:32)
--- OUTSIDE RECORDS SUMMARY | 2025-09-27 14:45 | XMS_ITS | Encounter Summary ---
Author Organization [facility] Address [address] [place] [address] Care Team Providers Care Cook Helper Meat Name Role Phone Cesar Mendez MD Primary Care Provider [phone] Encounter Details Date Type Department Care Team (Late st Contact Info) Description 01/02/2003 Outpatient Historical [facility] Vince Chaney Jr., MD [address] [place] [id number] Social History Tobacco Use Types Packs/Day Years Used Date Smoking Tobacco: Never Assessed Comments Unknown Sex and Gender Information Value Date Recorded Sex Assigned at Not on file Legal Sex Female 4:[address] OFFICER Gender Identity Not on file Sexual Orientation Not on file documented as of this encounter Plan of Treatment Not on file documented as of this encounter Visit Diagnoses Not on filedocumented in this encounter Care Teams Cook Helper Meat Relationship Specialty Start Date End Date Cesar Mendez MD [address] [facility] [address] [place] [phone] PCP - General Family Practice 01/13/20 documented as of this encounter
--- OUTSIDE RECORDS SUMMARY | 2025-09-27 14:45 | XMS_ITS | Encounter Summary ---
Author Organization [facility] Address [address] [place] [address] Care Team Providers Care Rodent Control Worker Name Role Phone Cesar Mendez MD Primary Care Provider [phone] Encounter Details Date Type Department Care Team (Latest Contact Info) Description 07/06/2003 Outpatient Historical [facility] Vince Chaney Jr., MD [address] [place] [address] DIABETES UNCOMPL ADULT-TYPE II (CMS/HCC) (Primary Dx); LUMBAGO; HYPERTENSION NOS Social History Tobacco Use Types Packs/Day Years Used Date Smoking Tobacco: Never Assessed Comments Unknown Sex and Gender Information Value Date Recorded Sex Assigned at Not on file 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
--- OUTSIDE RECORDS SUMMARY | 2025-09-27 14:45 | XMS_ITS | Encounter Summary ---
Author Organization [employer] [facility] Address [address] [place] [address] Care Team Providers Care Handbag Finisher Name Role Phone Cesar Mendez MD Primary Care Provider [phone] Encounter Details Date Type Department Care Team (Late st Contact Info) Description 07/20/2003 Outpatient [facility] Breast Center [facility] [address] [place], [place] [id number] Vince Chaney Jr., MD [address] [place] [address] SCREENING MAMM-MAILG NEOPL-OTHER (Primary Dx) Social History Tobacco Use Types Packs/Day Years Used Date Smoking Tobacco: Never Assessed Comments Unknown Sex and Gender Information Value Date Recorded Sex Assigned at Not on file 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
--- OUTSIDE RECORDS SUMMARY | 2025-09-27 14:45 | XMS_ITS | Encounter Summary ---
Author Organization [employer] Address [address] [facility] Attn: [place] [address] Care Team Providers Care Personal Lines Insurance Advisor Name Role Phone Cesar Mendez MD Primary Care Provider [phone] Encounter Details Date Type Department Care Team (Late st Contact Info) Description 07/12/2002 Outpatient Historical Vince Chaney Jr., MD [address] [place] [phone] Social History Tobacco Use Types Packs/Day Years [...] on filedocumented in this encounter Care Teams Personal Lines Insurance Advisor Relationship Specialty Start Date End Date Cesar Mendez MD [address] [facility] 1 [place] [phone] PCP - General Family Practice 01/13/20 documented as of this encounter
--- OUTSIDE RECORDS SUMMARY | 2025-09-27 14:45 | XMS_ITS | Encounter Summary ---
Author Organization [facility] Address [address] [place] [address] Care Team Providers Care Sec Reporting Consultant Name Role Phone Cesar Mendez MD Primary Care Provider [phone] Encounter Details Date Type Department Care Team (Late st Contact Info) Description 04/05/2003 Outpatient Historical [facility] Vince Chaney Jr., MD [address] [place] [phone] Social History Tobacco Use Types Packs/Day Years Used Date Smoking Tobacco: Never Assessed Comments Unknown Sex and Gender Information Value Date Recorded Sex Assigned at Not on file Legal Sex Female 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
--- OUTSIDE RECORDS SUMMARY | 2025-09-27 14:45 | XMS_ITS | Encounter Summary ---
Author Organization [facility] Address [address] [place] [address] Care Team Providers Care Acid Leveler Name Role Phone Cesar Mendez MD Primary Care Provider [phone] Encounter Details Date Type Department Care Team (Late st Contact Info) Description 04/05/2003 Outpatient Historical HIS [facility] Vince Chaney Jr., MD [address] [place] [address] Social History Tobacco Use Types Packs/Day Years Used Date Smoking Tobacco: Never Assessed Comments Unknown Sex and Gender Information Value Date Recorded Sex Assigned at Not on file 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
--- OUTSIDE RECORDS SUMMARY | 2025-09-27 14:45 | XMS_ITS | Encounter Summary ---
Author Organization [facility] [employer] [facility] Address [address] [place] [address] Care Team Providers Care Journeyman Powerhouse Operator Name Role Phone Cesar Mendez MD Primary Care Provider [phone] Encounter Details Date Type Department Care Team (Latest Contact Info) Description 01/02/2003 Outpatient Historical HIS [facility] Vince Chaney Jr., MD [address] [place] [address] DIABETES UNCOMPL ADULT-TYPE II (CMS/HCC) (Primary Dx); HYPERTENSION NOS; Pure hypercholesterolem; HEMATURIA Social History Tobacco Use Types Packs/Day Years Used Date Smoking Tobacco: Never Assessed Comments Unknown Sex and Gender Information Value Date Recorded Sex Assigned at Not on file Legal Sex Female 4:12 AM MONTESSORI PARAPROFESSIONAL Gender Identity Not on file Sexual Orientation Not on file documented as of this encounter Plan of Treatment Not on file documented as of this encounter Visit Diagnoses Diagnosis Type II or unspecified type diabetes mellitus without mention of complication, not stated as uncontrolled- Primary Unspecified essential hypertension Pure hypercholesterolem Pure hypercholesterolemia Hematuria documented in this encounter Care Teams Journeyman Powerhouse Operator Relationship Specialty Start Date End Date Cesar Mendez MD 8[address] [facility] 1 [place] [address] PCP - General Family Practice 01/13/20 documented as of this encounter
--- OUTSIDE RECORDS SUMMARY | 2025-09-27 14:46 | XMS_ITS | Encounter Summary ---
Author Organization [facility] Address [address] [place] [address] Care Team Providers Care Wireless Sales Consultant Name Role Phone Cesar Mednez MD Primary Care Provider [phone] Encounter Details Date Type Department Care Team (Latest Contact Info) Description 09/01/2000 Outpatient Historical [facility] [address] [facility] [address] [place] [address] Rajwinder Traylor MD NO ADDRESS ON FILE Other sign and symptom in breast (Primary Dx) Social History Tobacco Use Types Packs/Day Years Used Date Smoking Tobacco: Never Assessed Comments Unknown Sex and Gender Information Value Date Recorded Sex Assigned at Not on file Legal Sex Female 4:12 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
--- OUTSIDE RECORDS SUMMARY | 2025-09-27 14:46 | XMS_ITS | Encounter Summary ---
Author Organization [facility] Address [address] [place] [address] Care Team Providers Care Biostatistics Director Name Role Phone Cesar Mendez MD Primary Care Provider [phone] Encounter Details Date Type Department Care Team (Latest Contact Info) Description 09/02/2000 Outpatient Historical HIS [facility] Vince Chaney Jr., MD [address] [place] [address] Unspecified hypothyroidism (Primary Dx); Type II or unspecified type diabetes mellitus without mention of complication, not stated as uncontrolled; Unspecified essential hypertension Social History Tobacco Use Types Packs/Day Years Used Date Smoking Tobacco: Never Assessed Comments Unknown Sex and Gender Information Value Date Recorded Sex Assigned at Not on file Legal Sex Female 4:12 AM DRY STARCH OPERATOR Gender Identity Not on file Sexual Orientation Not on file documented as of this encounter Plan of Treatment Not on file documented as of this encounter Visit Diagnoses Diagnosis Unspecified hypothyroidism- Primary Type II or unspecified type diabetes mellitus without mention of complication, not stated as uncontrolled Unspecified essential hypertension documented in this encounter Care Teams Biostatistics Director Relationship Specialty Start Date End Date Cesar Mendez MD [address] [facility] 1 [place] [address] PCP - General Family Practice 01/13/20 documented as of this encounter
--- OUTSIDE RECORDS SUMMARY | 2025-09-27 14:46 | XMS_ITS | Encounter Summary ---
Author Organization [facility] Address [address] [place] [address] Care Team Providers Care Reference Librarian Name Role Phone Cesar Mendez MD Primary Care Provider [phone] Encounter Details Date Type Department Care Team (Late st Contact Info) Description 03/02/2000 Outpatient Historical [facility] Breast [facility] [address] [facility] [address] [place] [address] Mirian Nj MD NO ADDRESS ON FILE Other sign and symptom in breast (Primary Dx) Social History Tobacco Use Types Packs/Day Years Used Date Smoking Tobacco: Never Assessed Comments Unknown Sex and Gender Information Value Date Recorded Sex Assigned at Not on file Legal Sex Female 4:12 AM PIPELINES LABORER Gender Identity Not on file Sexual Orientation Not on file documented as of this encounter Plan of Treatment Not on file documented as of this encounter Visit Diagnoses Diagnosis Other sign and symptom in breast- Primary documented in this encounter Care Teams Reference Librarian Relationship Specialty Start Date End Date Cesar Mendez MD 805 [facility] 1 [place] [address] PCP - General Family Practice 01/13/20 documented as of this encounter
--- OUTSIDE RECORDS SUMMARY | 2025-09-27 14:46 | XMS_ITS | Encounter Summary ---
Author Organization [facility] Address [address] [place] [address] Care Team Providers Care Pig Machine Operator Helper Name Role Phone Cesar Mendez MD Primary Care Provider [phone] Encounter Details Date Type Department Care Team (Latest Contact Info) Description 01/13/2000 Outpatient Historical HIS [facility] Vince Chaney Jr., MD [address] [place] [address] Type II or unspecified type diabetes mellitus without mention of complication, not stated as uncontrolled (Primary Dx); Unspecified essential hypertension; Malignant neoplasm of breast (female), unspecified site Social History Tobacco Use Types Packs/Day Years Used Date Smoking Tobacco: Never Assessed Comments Unknown Sex and Gender Information Value Date Recorded Sex Assigned at Not on file Legal Sex Female 4:12 AM STATISTICAL SECRETARY Gender Identity Not on file Sexual Orientation Not on file documented as of this encounter Plan of Treatment Not on file documented as of this encounter Visit Diagnoses Diagnosis Type II or unspecified type diabetes mellitus without mention of complication, not stated as uncontrolled- Primary Unspecified essential hypertension Malignant neoplasm of breast (female), unspecified site documented in this encounter Care Teams Pig Machine Operator Helper Relationship Specialty Start Date End Date Cesar Mendez MD [address] [address] PCP - General Family Practice 01/13/20 documented as of this encounter
--- OUTSIDE RECORDS SUMMARY | 2025-09-27 14:46 | XMS_ITS | Encounter Summary ---
Author Organization [facility] Address [address] [place] [address] Care Team Providers Care Greens Or Grounds Superintendent Name Role Phone Cesar Mendez MD Primary Care Provider [phone] Encounter Details Date Type Department Care Team (Latest Contact Info) Description 05/26/2001 Outpatient Historical HIS [facility] Vinec Chaney Jr., MD [address] [place] [address] Myalgia and myositis, unspecified (Primary Dx); Urinary obstruction Social History Tobacco Use Types Packs/Day Years Used Date Smoking Tobacco: Never Assessed Comments Unknown Sex and Gender Information Value Date Recorded Sex Assigned at Not on file Legal Sex Female 4:12 AM REPAIR TECH Gender Identity Not on file Sexual Orientation Not on file documented as of this encounter Plan of Treatment Not on file documented as of this encounter Visit Diagnoses Diagnosis Myalgia and myositis, unspecified- Primary Mylagia and myositis, unspecified Urinary obstruction documented in this encounter Care Teams Greens Or Grounds Superintendent Relationship Specialty Start Date End Date Cesar Mendez MD 805 [facility] 1 [place] [address] PCP - General Family Practice 01/13/20 documented as of this encounter
--- OUTSIDE RECORDS SUMMARY | 2025-09-27 14:46 | XMS_ITS | Clinical Summary ---
Author Organization [facility] Address [address] [place] [address] Phone Care Team Providers Care Metallurgy Laboratory Technician Name Role Phone Wu Clark MD [...] Active Vit A,C,E-Zinc-Luis er (PreserVision AREDS) 14,320-226-200 emtw-hz-baap Capsule Take 1 Tablet by mouth. Active vit B,P-KD-kyxk-arianne en-vit D3-E (RenaPlex-D) 800 mcg-12.5 mg -2,000 [...] on file Legal Sex Female 9:26 AM COPPERSMITH HELPER Gender Identity Not on file Sexual [...] 56.7 kg (125 lb) 10/24/2024 11:04 AM COPPERSMITH HELPER Height 160 cm (5' 3 ) 10/24/2024 11:04 AM COPPERSMITH HELPER Body Mass Index 22.14 10/24/2024 11:04 AM COPPERSMITH HELPER Plan of Treatment Upcoming Encounters Date Type Department Care Team (Late st Contact Info) Description 10/12/2025 6:30 AM COPPERSMITH HELPER Appointment [facility] Orly Albarran [address] [place] [address] Debi Montes De Oca MD [address] [address] Noelle Castro MD [address] [place] [address] Health Maintenance Due Date Last Done Comments [...] years Discontinued Medical Devices Implanted Type Area Machine Trimmer Device Identifier Shelf Expiration Date Model / Serial / Lot Cath Pd Eric Boone 2cuff 05439-797 - [id number] Implanted:Qty : 1 on 04/26/2019 by Ben Enciso DO Catheter N/A: Abdomen MEDTRONIC - COVIDIEN 11/30/2023 [id number] / / [id number] Cath Dialysis Glidepath 14.5fr 23cm Std [id number] Implanted:Qty : 1 on 12/21/2020 by Robert Castro MD Catheter Right: Chest Wall CR BARD- [employer] [id number] 05/08/2022 [id number] / / [id number] Description:14.5fr x 23cm Gl idePath Dialysis Catheter implanted on right Clip Ligating Horizon Med Ti 272842 - Csc - [id number] Implanted:Qty : 1 on 01/31/2021 by Lonnie Sparks MD Clip Right: Arm TELEFLEX- WECK CLOSURE SYS 04/30/2025 [id number] / / [id number] Clip Ligating Horizon Red 666344 - Csc - [id number] Implanted:Qty : 1 on 01/31/2021 by Lonnie Sparks MD Clip Right: Arm TELEFLEX INC 04/30/2025 [id number] / / [id number] Clip Ligating Horizon Red 192689 - Csc - [id number] Implanted:Qty : 1 on 05/09/2021 by Lonnie Sparks MD at [facility] Clip Right: Arm TELEFLEX INC 07/16/2025 [id number] / / [id number] Clip Ligating Horizon Med Ti 603868 - Csc - [id number] Implanted:Qty : 1 on 05/09/2021 by Lonnie Sparks MD at [facility] Clip Right: Arm TELEFLEX- WECK CLOSURE SYS 07/09/2025 [id number] / / [id number] Hemostatic Surgifoam Sz100 1973 - [id number] Implanted:Qty : 1 on 07/04/2020 by Lonnie Sparks MD Hemostatic Right: Arm J[employer]J- [employer] [id number] 02/22/2024 1974 / / [id number] Covera Flaired Stent-11/30/19 Implanted:Qty : 1 on 11/30/2020 by Betsey Serra MD Stent Right: Arm [id number] 07/06/2022 [id number] / / [id number] 8 X 40mm Covera Covered Stent- Implanted:Qty : 1 on 12/10/2020 by Betsey Serra MD Stent Right: Arm [id number] 05/04/2022 [id number] / / [id number] Description:8 x 40mm Covera Covered Stent implanted in right arm Graft Graft Vasc Propaten [id number] - [id number] Implanted:Qty : 1 on 07/04/2020 by Lonnie Sparks MD Tissue Right: Arm [employer] 01/07/2024 [id number] / / [id number] Explanted Type Area Machine Trimmer Device Identifier Shelf Expiration Date Model / Serial / Lot Hemostatic Surgifoam Sz100 1973 - [id number] Explanted:Qty: 1 on 01/31/2021 by Lonnie Sparks MD Hemostatic Right: Arm J&J- [employer] [id number] 09/06/20241973 048222 Hemostatic Surgifoam Sz100 1973 - [id number] Explanted:Qty: 1 on 05/09/2021 by Lonnie Sparks MD at [facility] Hemostatic Right: Arm J&J- [employer] [id number] 12/06/20241973 285899 Procedures Procedure Name Priority Date/Time Associated Diagnosis Comments COLONOSCOPY REPORT 06/12/2022 12 :49 PM CDT from Last 3 Months or Most Recently Relevant to Health Maintenance Results * COLONOSCOPY REPORT (06/12/2022 12:49 PM CDT) Narrative Procedure Note Kane Kim DO - 06/12/2022 12:48 PM CDT [facility] GI Patient Name: María Saab Procedure [...] Maintenance Insurance MEDICARE PART A AND B [facility] * Guarantor: MARÍA SAAB Account Type Relation to Patient Date of Phone Billing Address Personal/Family [address] [facility] [address] [place] [address] RX [facility] Medicare Part D Advance Directives For more information, please contact: [phone] * Full Code (Latest Code Status on File) Date Activated Date Inactivated Comments 07/19/2022 7:28 PM 07/23/2022 7:37 PM * Full Code Date Activated Date Inactivated Comments 07/10/2022 5:41 PM 07/14/2022 4:37 PM * Full Code Date Activated Date Inactivated Comments 07/10/2022 10:52 AM 07/10/2022 5:40 PM * Full Code Date Activated Date Inactivated Comments 06/12/2022 11:50 AM 06/12/2022 3:14 PM Care Teams Metallurgy Laboratory Technician Relationship Specialty Start Date End Date Wu Clark MD PCP - General Nephrology 05/06/22
--- OUTSIDE RECORDS SUMMARY | 2025-09-27 14:46 | XMS_ITS | Encounter Summary ---
Author Organization [employer] [facility] Address [address] [place] [address] Care Team Providers Care Supervisor Detasseling Crew Name Role Phone Cesar Mendez MD Primary Care Provider [phone] Encounter Details Date Type Department Care Team (Latest Contact Info) Description 09/10/2000 Outpatient Historical HIS [facility] Vince Chaney Jr., MD [address] [place] [address] Hematuria (Primary Dx); Urinary tract infection, site not specified Social History Tobacco Use Types Packs/Day Years Used Date Smoking Tobacco: Never Assessed Comments Unknown Sex and Gender Information Value Date Recorded Sex Assigned at Not on file Legal Sex Female 4:12 AM DRAWING PRESS OPERATOR Gender Identity Not on file Sexual Orientation Not on file documented as of this encounter Plan of Treatment Not on file documented as of this encounter Visit Diagnoses Diagnosis Hematuria- Primary Urinary tract infection, site not specified documented in this encounter Care Teams Supervisor Detasseling Crew Relationship Specialty Start Date End Date Cesar Mendez MD [address] [address] PCP - General Family Practice 01/13/20 documented as of this encounter
--- OUTSIDE RECORDS SUMMARY | 2025-09-27 14:46 | XMS_ITS | Encounter Summary ---
Author Organization [employer] [facility] Address [address] [place] [address] Care Team Providers Care Parking Lot Manager Name Role Phone Cesar Mendez MD Primary Care Provider [phone] Encounter Details Date Type Department Care Team (Latest Contact Info) Description 10/30/1999 Outpatient Historical HIS [facility] Antonio Mathis MD [address] [place] [address] Other specified aftercare following surgery (Primary Dx) Social History Tobacco Use Types Packs/Day Years Used Date Smoking Tobacco: Never Assessed Comments Unknown Sex and Gender Information Value Date Recorded Sex Assigned at Not on file Legal Sex Female 4:12 AM RELIEF MAN Gender Identity Not on file Sexual Orientation Not on file documented as of this encounter Plan of Treatment Not on file documented as of this encounter Visit Diagnoses Diagnosis Other specified aftercare following surgery- Primary documented in this encounter Care Teams Parking Lot Manager Relationship Specialty Start Date End Date Cesar Mendez MD [address] [place] [address] 1 [place] [address] PCP - General Family Practice 01/13/20 documented as of this encounter
--- OUTSIDE RECORDS SUMMARY | 2025-09-27 14:46 | XMS_ITS | Encounter Summary ---
Author Organization [facility] Address [address] [place] [address] Care Team Providers Care Warehouse Checker Name Role Phone Cesar Mendez MD Primary Care Provider [phone] Encounter Details Date Type Department Care Team (Latest Contact Info) Description 06/30/2002 Outpatient Historical HIS [facility] Vince Chaney Jr., MD [address] [place] [address] ANEMIA NOS (Primary Dx); DIABETES UNCOMPL ADULT-TYPE II (CMS/HCC); HYPERTENSION NOS Social History Tobacco Use Types Packs/Day Years Used Date Smoking Tobacco: Never Assessed Comments Unknown Sex and Gender Information Value Date Recorded Sex Assigned at Not on file Legal Sex Female 4:12 AM LABORATORY AIDE Gender Identity Not on file Sexual Orientation Not on file documented as of this encounter Plan of Treatment Not on file documented as of this encounter Visit Diagnoses Diagnosis Anemia, unspecified- Primary Type II or unspecified type diabetes mellitus without mention of complication, not stated as uncontrolled Unspecified essential hypertension documented in this encounter Care Teams Warehouse Checker Relationship Specialty Start Date End Date Cesar Mendez MD [address] [facility] 1 [place] [address] PCP - General Family Practice 01/13/20 documented as of this encounter
--- OUTSIDE RECORDS SUMMARY | 2025-09-27 14:46 | XMS_ITS | Encounter Summary ---
Author Organization [facility] Address [address] [place] [address] Care Team Providers Care Retail Team Leader Name Role Phone Cesar Mendez MD Primary Care Provider [phone] Encounter Details Date Type Department Care Team (Latest Contact Info) Description 03/02/2000 Outpatient Historical HIS [facility] Antonio Mathis MD [address] [place] [address] Personal history of malignant neoplasm of breast (Primary Dx) Social History Tobacco Use Types Packs/Day Years Used Date Smoking Tobacco: Never Assessed Comments Unknown Sex and Gender Information Value Date Recorded Sex Assigned at Not on file Legal Sex Female 4:12 AM LAB AIDE Gender Identity Not on file Sexual Orientation Not on file documented as of this encounter Plan of Treatment Not on file documented as of this encounter Visit Diagnoses Diagnosis Personal history of malignant neoplasm of breast- Primary documented in this encounter Care Teams Retail Team Leader Relationship Specialty Start Date End Date Cesar Mendez MD [address] [facility] 1 [place] [address] PCP - General Family Practice 01/13/20 documented as of this encounter
--- OUTSIDE RECORDS SUMMARY | 2025-09-27 14:46 | XMS_ITS | Encounter Summary ---
Author Organization [email or web address] [facility] Address [address] [place] [address] Care Team Providers Care Group Insurance Specialist Name Role Phone Cesar Mendez MD Primary Care Provider [phone] Encounter Details Date Type Department Care Team (Latest Contact Info) Description 09/11/1999 Outpatient Historical HIS [facility] Antonio Mathis MD [address] [place] [address] Other specified aftercare following surgery (Primary Dx) Social History Tobacco Use Types Packs/Day Years Used Date Smoking Tobacco: Never Assessed Comments Unknown Sex and Gender Information Value Date Recorded Sex Assigned at Not on file Legal Sex Female 4:12 AM VICE PRESIDENT OF TALENT MANAGEMENT Gender Identity Not on file Sexual Orientation Not on file documented as of this encounter Plan of Treatment Not on file documented as of this encounter Visit Diagnoses Diagnosis Other specified aftercare following surgery- Primary documented in this encounter Care Teams Group Insurance Specialist Relationship Specialty Start Date End Date Cesar Mendez MD [address] [place] [address] 1 [place] [address] PCP - General Family Practice 01/13/20 documented as of this encounter
--- OUTSIDE RECORDS SUMMARY | 2025-09-27 14:46 | XMS_ITS | Encounter Summary ---
Author Organization [employer] [facility] Address [address] [place] [address] Care Team Providers Care Router Setter Name Role Phone Cesar Mendez MD Primary Care Provider Encounter Details Date Type Department Care Team (Latest Contact Info) Description 04/05/2003 Outpatient Historical HIS [facility] Vince Chaney Jr., MD [address] [place] [address] DIABETES UNCOMPL ADULT-TYPE II (CMS/HCC) (Primary Dx); Pure hypercholesterolem; HYPERTENSION NOS; AFTERCARE INDUSTRIAL GAS FITTER HELPER USE MEDICATN Social History Tobacco Use Types Packs/Day Years Used Date Smoking Tobacco: Never Assessed Comments Unknown Sex and Gender Information Value Date Recorded Sex Assigned at Not on file Legal Sex Female 4:12 AM BREAD WRAPPING MACHINE FEEDER Gender Identity Not on file Sexual Orientation [...] medications documented in this encounter Care Teams Router Setter Relationship Specialty Start Date End Date Cesar Mendez MD 8[address] [facility] 1 [place] [address] PCP - General Family Practice 01/13/20 documented as of this encounter
--- OUTSIDE RECORDS SUMMARY | 2025-09-27 14:46 | XMS_ITS | Encounter Summary ---
Author Organization [facility] Address [address] [place] [address] Care Team Providers Care Chief Librarian Branch Or Department Name Role Phone Cesar Mendez MD Primary Care Provider [phone] Encounter Details Date Type Department Care Team (Latest Contact Info) Description 08/30/1999 Outpatient Historical [facility] [address] [facility] [address] [place] [phone] Nagi Clark MD NO ADDRESS ON FILE Lump or mass in breast (Primary Dx) Social History Tobacco Use Types Packs/Day Years Used Date Smoking Tobacco: Never Assessed Comments Unknown Sex and Gender Information Value Date Recorded Sex Assigned at Not on file Legal Sex Female 4:12 AM SUPERVISOR COMPUTER OPERATIONS Gender Identity Not on file Sexual Orientation Not on file documented as of this encounter Plan of Treatment Not on file documented as of this encounter Visit Diagnoses Diagnosis Lump or mass in breast- Primary documented in this encounter Care Teams Chief Librarian Branch Or Department Relationship Specialty Start Date End Date Cesar Mendez MD [address] [facility] 1 [place] [phone] PCP - General Family Practice 01/13/20 documented as of this encounter
--- OUTSIDE RECORDS SUMMARY | 2025-09-27 14:46 | XMS_ITS | Encounter Summary ---
Author Organization [facility] Address [address] [place] [address] Care Team Providers Care Fast Food Cashier Name Role Phone Cesar Mendez MD Primary Care Provider [phone] Encounter Details Date Type Department Care Team (Late st Contact Info) Description 03/05/2001 Outpatient Historical [facility] [place] [address] [facility] [address] [place] [phone] Mirian Nj MD NO ADDRESS ON FILE Other sign and symptom in breast (Primary Dx) Social History Tobacco Use Types Packs/Day Years Used Date Smoking Tobacco: Never Assessed Comments Unknown Sex and Gender Information Value Date Recorded Sex Assigned at Not on file Legal Sex Female 4:12 AM BIT AND SHANK DEPARTMENT SUPERVISOR Gender Identity Not on file Sexual Orientation Not on file documented as of this encounter Plan of Treatment Not on file documented as of this encounter Visit Diagnoses Diagnosis Other sign and symptom in breast- Primary documented in this encounter Care Teams Fast Food Cashier Relationship Specialty Start Date End Date Cesar Mendez MD [address] [facility] 1 [place] [address] PCP - General Family Practice 01/13/20 documented as of this encounter
--- OUTSIDE RECORDS SUMMARY | 2025-09-27 14:46 | XMS_ITS | Encounter Summary ---
Author Organization [employer] [facility] Address [address] [place] [address] Care Team Providers Care Industrial Hygenist Name Role Phone Cesar Mendez MD Primary Care Provider [phone] Encounter Details Date Type Department Care Team (Latest Contact Info) Description 09/23/2000 Outpatient Historical HIS [facility] Vince Chaney Jr., MD [address] [place] [address] Osteoporosis, unspecified (Primary Dx); Personal history of other disorder of urinary system Social History Tobacco Use Types Packs/Day Years Used Date Smoking Tobacco: Never Assessed Comments Unknown Sex and Gender Information Value Date Recorded Sex Assigned at Not on file Legal Sex Female 4:12 AM NEWS ASSISTANT Gender Identity Not on file Sexual Orientation Not on file documented as of this encounter Plan of Treatment Not on file documented as of this encounter Visit Diagnoses Diagnosis Osteoporosis, unspecified- Primary Personal history of other disorder of urinary system documented in this encounter Care Teams Industrial Hygenist Relationship Specialty Start Date End Date Cesar Mendez MD [address] [phone] PCP - General Family Practice 01/13/20 documented as of this encounter
--- OUTSIDE RECORDS SUMMARY | 2025-09-27 14:46 | XMS_ITS | Encounter Summary ---
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 Gender Identity Not on file Sexual Orientation Not on file documented as of this encounter Plan of Treatment Not on file documented as of this encounter Visit Diagnoses Diagnosis Type II or unspecified type diabetes mellitus without mention of complication, not stated as uncontrolled- Primary Unspecified essential hypertension Cystitis, unspecified Other nonspecific finding on examination of urine documented in this encounter Care Teams Operational Risk Consultant Relationship Specialty Start Date End Date Cesar Mendez MD [address] [facility] 1 [place] [phone] PCP - General Family Practice 01/13/20 documented as of this encounter
--- OUTSIDE RECORDS SUMMARY | 2025-09-27 14:46 | XMS_ITS | Encounter Summary ---
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 Gender Identity Not on file Sexual Orientation Not on file documented as of this encounter Plan of Treatment Not on file documented as of this encounter Visit Diagnoses Diagnosis Type II or unspecified type diabetes mellitus without mention of complication, not stated as uncontrolled- Primary Unspecified essential hypertension Edema Osteoarthrosis, unspecified whether generalized or localized, unspecified site documented in this encounter Care Teams Medic Technician Relationship Specialty Start Date End Date Cesar Mendez MD [address] [phone] PCP - General Family Practice 01/13/20 documented as of this encounter
--- OUTSIDE RECORDS SUMMARY | 2025-09-27 14:46 | XMS_ITS | Encounter Summary ---
Author Organization [employer] [facility] Address [address] [place] [address] Care Team Providers Care Rivet Maker Name Role Phone Cesar Mendez MD Primary Care Provider [phone] Encounter Details Date Type Department Care Team (Latest Contact Info) Description 11/11/2001 Outpatient Historical HIS [facility] Vince Chaney Jr., MD [address] [place] [address] DIABETES UNCOMPL ADULT-TYPE II (CMS/HCC) (Primary Dx); Pure hypercholesterolem; HYPERTENSION NOS Social History Tobacco Use Types Packs/Day Years Used Date Smoking Tobacco: Never Assessed Comments Unknown Sex and Gender Information Value Date Recorded Sex Assigned at Not on file 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 Gender Identity Not on file Sexual Orientation Not on file documented as of this encounter Plan of Treatment Not on file documented as of this encounter Visit Diagnoses Diagnosis Type II or unspecified type diabetes mellitus without mention of complication, not stated as uncontrolled- Primary Pure hypercholesterolem Pure hypercholesterolemia Unspecified essential hypertension documented in this encounter Care Teams Rivet Maker Relationship Specialty Start Date End Date Cesar Mendez MD 805 [facility] 1 [place] [phone] PCP - General Family Practice 01/13/20 documented as of this encounter
--- OUTSIDE RECORDS SUMMARY | 2025-09-27 14:46 | XMS_ITS | Encounter Summary ---
Author Organization [employer] [facility] Address [address] [place] [address] Care Team Providers Care Poultry Killer Name Role Phone Cesar Mendez MD Primary Care Provider [phone] Encounter Details Date Type Department Care Team (Latest Contact Info) Description 09/17/2000 Outpatient Historical HIS [facility] Vince Chaney Jr., MD [address] [place] [address] Urinary tract infection, site not specified (Primary Dx); Hypopotassemia; Encounter for long-term (current) use of other medications Social History Tobacco Use Types Packs/Day Years Used Date Smoking Tobacco: Never Assessed Comments Unknown Sex and Gender Information Value Date Recorded Sex Assigned at Not on file 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
--- OUTSIDE RECORDS SUMMARY | 2025-09-27 14:46 | XMS_ITS | Encounter Summary ---
Author Organization [employer] [facility] Address [address] [place] [address] Care Team Providers Care Division Merchandise Manager Name Role Phone Cesar Mendez MD Primary Care Provider [phone] Encounter Details Date Type Department Care Team (Latest Contact Info) Description 04/01/2001 Outpatient Historical HIS [facility] Vince Chaney Jr., MD [address] [place] [address] Urinary tract infection, site not specified (Primary Dx); Type II or unspecified type diabetes mellitus without mention of complication, not stated as uncontrolled Social History Tobacco Use Types Packs/Day Years Used Date Smoking Tobacco: Never Assessed Comments Unknown Sex and Gender Information Value Date Recorded Sex Assigned at Not on file Legal Sex Female 4:12 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 MANAGER Gender Identity Not on file Sexual Orientation Not on file documented as of this encounter Plan of Treatment Not on file documented as of this encounter Visit Diagnoses Diagnosis Urinary tract infection, site not specified- Primary Type II or unspecified type diabetes mellitus without mention of complication, not stated as uncontrolled documented in this encounter Care Teams Division Merchandise Manager Relationship Specialty Start Date End Date Cesar Mendez MD 805 [facility] 1 [place] [address] PCP - General Family Practice 01/13/20 documented as of this encounter
--- OUTSIDE RECORDS SUMMARY | 2025-09-27 14:46 | XMS_ITS | Encounter Summary ---
Author Organization [employer] [facility] Address [address] [place] [address] Care Team Providers Care Shoe Repairer Apprentice Name Role Phone Cesar Mendez MD Primary Care Provider [phone] Encounter Details Date Type Department Care Team (Latest Contact Info) Description 04/22/2001 Outpatient Historical HIS [facility] Vince Chaney Jr., MD [address] [place] [address] Unspecified essential hypertension (Primary Dx); Type II or unspecified type diabetes mellitus without mention of complication, not stated as uncontrolled; Neurogenic bladder, NOS Social History Tobacco Use Types Packs/Day Years Used Date Smoking Tobacco: Never Assessed Comments Unknown Sex and Gender Information Value Date Recorded Sex Assigned at Not on file Legal Sex Female 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 Gender Identity Not on file Sexual Orientation Not on file documented as of this encounter Plan of Treatment Not on file documented as of this encounter Visit Diagnoses Diagnosis Unspecified essential hypertension- Primary Type II or unspecified type diabetes mellitus without mention of complication, not stated as uncontrolled Neurogenic bladder, NOS documented in this encounter Care Teams Shoe Repairer Apprentice Relationship Specialty Start Date End Date Cesar Mendez MD 8[address] [facility] 1 [place] [phone] PCP - General Family Practice 01/13/20 documented as of this encounter
--- OUTSIDE RECORDS SUMMARY | 2025-09-27 14:46 | XMS_ITS | Encounter Summary ---
Author Organization [employer] [facility] Address [address] [place] [address] Care Team Providers Care Academic Services Professional Name Role Phone Cesar Mendez MD Primary Care Provider [phone] Encounter Details Date Type Department Care Team (Latest Contact Info) Description 03/16/2002 Outpatient Historical HIS [facility] Vince Chaney Jr., MD [address] [place] [address] DIABETES UNCOMPL ADULT-TYPE II (CMS/HCC) (Primary Dx); Pure hypercholesterolem; PERS HX OF BREAST MALIGNANCY Social History Tobacco Use Types Packs/Day Years Used Date Smoking Tobacco: Never Assessed Comments Unknown Sex and Gender Information Value Date Recorded Sex Assigned at Not on file 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 Sex Female 4:12 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 TEST 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 Gender Identity Not on file Sexual Orientation Not on file documented as of this encounter Plan of Treatment Not on file documented as of this encounter Visit Diagnoses Diagnosis Type II or unspecified type diabetes mellitus without mention of complication, not stated as uncontrolled- Primary Pure hypercholesterolem Pure hypercholesterolemia Personal history of malignant neoplasm of breast documented in this encounter Care Teams Academic Services Professional Relationship Specialty Start Date End Date Cesar Mendez MD 805 [facility] 1 [place] [phone] PCP - General Family Practice 01/13/20 documented as of this encounter
--- OUTSIDE RECORDS SUMMARY | 2025-09-27 14:46 | XMS_ITS | Encounter Summary ---
Author Organization [facility] Address [address] [place] [address] Care Team Providers Care Dowel Sander Operator Name Role Phone Cesar Mendez MD Primary Care Provider [phone] Encounter Details Date Type Department Care Team (Latest Contact Info) Description 02/09/2002 Outpatient Historical HIS [facility] Vince Chaney Jr., MD [address] [place] [address] BACKACHE NOS (Primary Dx); DIABETES UNCOMPL ADULT-TYPE II (CMS/[facility]); HYPERTENSION NOS; AFTERCARE GROUP HOME USE MEDICATN Social History Tobacco Use Types Packs/Day Years Used Date Smoking Tobacco: Never Assessed Comments Unknown Sex and Gender Information Value Date Recorded Sex Assigned at Not on file Legal Sex Female 4:12 AM CHIEF LEGAL OFFICER Gender Identity Not on file Sexual [...] medications documented in this encounter Care Teams Dowel Sander Operator Relationship Specialty Start Date End Date Cesar Mendez MD 805 [facility] 1 [place] [address] PCP - General Family Practice 01/13/20 documented as of this encounter
--- OUTSIDE RECORDS SUMMARY | 2025-09-27 14:46 | XMS_ITS ---
Author Organization [facility] Address [address] [place] [address] Phone Care Team Providers Care Heel Slicker Name Role Phone Wu Clark MD Primary [...]
--- OUTSIDE RECORDS SUMMARY | 2025-09-27 14:46 | XMS_ITS | Encounter Summary ---
Author Organization [employer] [facility] [facility] Address [address] [place] [address] Care Team Providers Care Dermatology Physician Name Role Phone Cesar Mendez MD Primary Care Provider [phone] Encounter Details Date Type Department Care Team (Latest Contact Info) Description 08/31/2001 Outpatient Historical HIS [facility] Vince Chaney Jr., MD [address] [place] [address] Need vaccination-viral disease (Primary Dx) Social History Tobacco Use Types Packs/Day Years Used Date Smoking Tobacco: Never Assessed Comments Unknown Sex and Gender Information Value Date Recorded Sex Assigned at Not on file Legal Sex Female 4:12 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
--- OUTSIDE RECORDS SUMMARY | 2025-09-27 14:46 | XMS_ITS | Encounter Summary ---
Author Organization [employer] [facility] Address [address] [place] [address] Care Team Providers Care Fire Pot Operator Name Role Phone Cesar Mendez MD Primary Care Provider [phone] Encounter Details Date Type Department Care Team (Latest Contact Info) Description 03/24/2001 Outpatient Historical HIS [facility] Vince Chaney Jr., MD [address] [place] [address] Type II or unspecified type diabetes mellitus without mention of complication, not stated as uncontrolled (Primary Dx); Unspecified essential hypertension; Pure hypercholesterolem; Screening for thyroid disorder Social History Tobacco Use Types Packs/Day Years Used Date Smoking Tobacco: Never Assessed Comments Unknown Sex and Gender Information Value Date Recorded Sex Assigned at Not on file 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 Gender Identity Not on file Sexual Orientation Not on file documented as of this encounter Plan of Treatment Not on file documented as of this encounter Visit Diagnoses Diagnosis Type II or unspecified type diabetes mellitus without mention of complication, not stated as uncontrolled- Primary Unspecified essential hypertension Pure hypercholesterolem Pure hypercholesterolemia Screening for thyroid disorder documented in this encounter Care Teams Fire Pot Operator Relationship Specialty Start Date End Date Cesar Mendez MD 805 [facility] 1 [place] [address] PCP - General Family Practice 01/13/20 documented as of this encounter
--- OUTSIDE RECORDS SUMMARY | 2025-09-27 14:46 | XMS_ITS | Encounter Summary ---
Author Organization [facility] Address [address] [place] [address] Care Team Providers Care Security Risk Analyst Name Role Phone Cesar Mendez MD Primary Care Provider [phone] Encounter Details Date Type Department Care Team (Latest Contact Info) Description 10/03/2002 Outpatient Historical HIS [facility] Vince Chaney Jr., MD [address] [place] [address] DIABETES UNCOMPL ADULT-TYPE II (CMS/HCC) (Primary Dx); HYPERTENSION NOS; HYPOTHYROIDISM NOS; VACCINE FOR INFLUENZA Social History Tobacco Use Types Packs/Day Years Used Date Smoking Tobacco: Never Assessed Comments Unknown Sex and Gender Information Value Date Recorded Sex Assigned at Not on file Legal Sex Female 4:12 AM ICT SALES REPRESENTATIVE Gender Identity Not on file [...] diseases documented in this encounter Care Teams Security Risk Analyst Relationship Specialty Start Date End Date Cesar Mendez MD 805 [facility] 1 [place] [address] PCP - General Family Practice 01/13/20 documented as of this encounter
--- OUTSIDE RECORDS SUMMARY | 2025-09-27 14:46 | XMS_ITS | Encounter Summary ---
Author Organization [employer] [facility] Address [address] [place] [address] Care Team Providers Care Electrical Continuity Inspector Name Role Phone Ceasr Mendez MD Primary Care Provider [phone] Encounter Details Date Type Department Care Team (Latest Contact Info) Description 05/14/2000 Outpatient Historical HIS [facility] Vince Chaney Jr., MD [address] [place] [address] Type II or unspecified type diabetes mellitus without mention of complication, not stated as uncontrolled (Primary Dx); Unspecified essential hypertension Social History Tobacco Use Types Packs/Day Years Used Date Smoking Tobacco: Never Assessed Comments Unknown Sex and Gender Information Value Date Recorded Sex Assigned at Not on file 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 Female 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
--- OUTSIDE RECORDS SUMMARY | 2025-09-27 14:46 | XMS_ITS | Encounter Summary ---
Author Organization [facility] Address [address] [place] [address] Care Team Providers Care Sports Apparel Internship Name Role Phone Cesar Mendez MD Primary Care Provider [phone] Encounter Details Date Type Department Care Team (Latest Contact Info) Description 09/06/2001 Outpatient Historical [facility] [address] [facility] [address] [place] [address] Nagi Clark MD NO ADDRESS ON FILE SYMPTOMS IN BREAST NEC (Primary Dx) Social History Tobacco Use Types Packs/Day Years Used Date Smoking Tobacco: Never Assessed Comments Unknown Sex and Gender Information Value Date Recorded Sex Assigned at Not on file 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
--- OUTSIDE RECORDS SUMMARY | 2025-09-27 14:46 | XMS_ITS | Encounter Summary ---
Author Organization [employer] Address [address] [facility] Attn: [place] [address] Care Team Providers Care Spray Rig Operator Name Role Phone Cesar Mendez MD Primary Care Provider [phone] Encounter Details Date Type Department Care Team (Late st Contact Info) Description 09/06/2001 Outpatient Historical Walt Solomon MD [address] [place] [address] Social History Tobacco Use Types Packs/Day Years Used Date Smoking Tobacco: Never Assessed Comments Unknown Sex and Gender Information Value Date Recorded Sex Assigned at Not on file Legal Sex Female 4:12 AM BOOTMAKER HAND Gender Identity Not on file Sexual Orientation Not on file documented as of this encounter Plan of Treatment Not on file documented as of this encounter Visit Diagnoses Not on filedocumented in this encounter Care Teams Spray Rig Operator Relationship Specialty Start Date End Date Cesar Mendez MD 805 [facility] 1 [place] [address] PCP - General Family Practice 01/13/20 documented as of this encounter
--- OUTSIDE RECORDS SUMMARY | 2025-09-27 14:46 | XMS_ITS | Encounter Summary ---
Author Organization [employer] [facility] Address [address] [place] [address] Care Team Providers Care Data Examination Clerk Name Role Phone Cesar Mendez MD Primary Care Provider [phone] Encounter Details Date Type Department Care Team (Late st Contact Info) Description 09/30/1999 Outpatient Historical HIS [facility] GENERAL SURGERY Social History Tobacco Use Types Packs/Day Years Used Date Smoking Tobacco: Never Assessed Comments Unknown Sex and Gender Information Value Date Recorded Sex Assigned at Not on file 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
--- OUTSIDE RECORDS SUMMARY | 2025-09-27 14:46 | XMS_ITS | Encounter Summary ---
Author Organization [employer] [facility] Address [address] [place] [address] Care Team Providers Care Technician Submarine Cable Equipment Name Role Phone Cesar Mendez MD Primary Care Provider [phone] Encounter Details Date Type Department Care Team (Latest Contact Info) Description 12/24/2000 Outpatient Historical HIS [facility] Vince Chaney Jr., MD [address] [place] [address] Type II or unspecified type diabetes mellitus without mention of complication, not stated as uncontrolled (Primary Dx); Unspecified essential hypertension; Pure hypercholesterolem Social History Tobacco Use Types Packs/Day Years Used Date Smoking Tobacco: Never Assessed Comments Unknown Sex and Gender Information Value Date Recorded Sex Assigned at Not on file Legal Sex Female 4:12 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 LEGAL 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 Gender Identity Not on file Sexual Orientation Not on file documented as of this encounter Plan of Treatment Not on file documented as of this encounter Visit Diagnoses Diagnosis Type II or unspecified type diabetes mellitus without mention of complication, not stated as uncontrolled- Primary Unspecified essential hypertension Pure hypercholesterolem Pure hypercholesterolemia documented in this encounter Care Teams Technician Submarine Cable Equipment Relationship Specialty Start Date End Date Cesar Mendez MD 805 [facility] 1 [place] [phone] PCP - General Family Practice 01/13/20 documented as of this encounter
--- OUTSIDE RECORDS SUMMARY | 2025-09-27 14:46 | XMS_ITS | Clinical Summary ---
Author Organization [facility] Address [address] [place] [address] Phone Care Team Providers Care House Calls Nurse Name Role Phone Cesar Mendez MD Primary Care Provider [phone] Allergies Active Allergy Reactions Criticality Noted Date [...] 2 Tablets by mouth. 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5fr x 23cm Gl idePath Dialysis Catheter implanted on right Clip Ligating Horizon Med Ti [id number] - Csc - [id number] Implanted:Qty : 1 on 01/31/2021 by Lonnie Sparks MD at [facility] Clip Right: Arm TELEFLEX- WECK CLOSURE SYS 04/30/2025 [id number] / / [id number] Clip Ligating Horizon Red [id number] - Csc - [id number] Implanted:Qty : 1 on 01/31/2021 by Lonnie Sparks MD at [facility] Clip Right: Arm TELE[employer]LEX INC 04/30/2025 [id number] / / [id number] Hemostatic Surgifoam [id number] 1973 - [id number] Implanted:Qty : 1 on 07/04/2020 by Lonnie Sparks MD at [facility] Hemostatic Right: Arm [employer]- [employer] [id number] 02/22/2024 1974 / / [id number] Covera Flaired Stent-11/30/19 Implanted:Qty : 1 on 11/30/2020 by Betsey Serra MD Stent Right: Arm [id number] 07/06/2022 [id number] / / [id number] 8 X 40mm Covera Covered Stent- Implanted:Qty : 1 on 12/10/2020 by Betsey Serra MD Stent Right: Arm [id number] 05/04/2022 [id number] / / [id number] Description:8 x 40mm Covera Covered Stent implanted in right arm Graft Graft Vasc Propaten 4-8iau16sp [id number] - [id number] Implanted:Qty : 1 on 07/04/2020 by Lonnie Sparks MD at [facility] Tissue Right: Arm [employer] 01/07/2024 [id number] / / [id number] Explanted Type Area Counseling Director Device Identifier Shelf Expiration Date Model / Serial / Lot Hemostatic Surgifoam Sz100 1973 - [id number] Explanted:Qty: 1 on 01/31/2021 by Lonnie Sparks MD at [facility] Hemostatic Right: Arm [employer]- [employer] [id number] 09/06/20241973 / / [id number] Insurance MEDICARE PART A AND B [facility] Medicare Part D Advance Directives For more information, please contact: [phone] * Full Code (Latest Code Status on [...] 7:55 AM 04/26/2019 11:45 AM Care Teams House Calls Nurse Relationship Specialty Start Date End Date Cesar Mendez MD [address] [phone] PCP - General Family Practice 01/13/20
--- OUTSIDE RECORDS SUMMARY | 2025-09-27 14:46 | XMS_ITS | Encounter Summary ---
Author Organization [facility] Address [address] [place] [address] Care Team Providers Care Hog Grader Name Role Phone Cesar Mendez MD Primary Care Provider [phone] Encounter Details Date Type Department Care Team (Latest Contact Info) Description 02/12/2000 Outpatient Historical HIS [facility] Vince Chaney Jr., MD [address] [place] [address] Type II or unspecified type diabetes mellitus without mention of complication, not stated as uncontrolled (Primary Dx); Anemia, unspecified; Unspecified hypothyroidism; Other and unspecified hyperlipidemia Social History Tobacco Use Types Packs/Day Years Used Date Smoking Tobacco: Never Assessed Comments Unknown Sex and Gender Information Value Date Recorded Sex Assigned at Not on file 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 Gender Identity Not on file Sexual Orientation Not on file documented as of this encounter Plan of Treatment Not on file documented as of this encounter Visit Diagnoses Diagnosis Type II or unspecified type diabetes mellitus without mention of complication, not stated as uncontrolled- Primary Anemia, unspecified Unspecified hypothyroidism Other and unspecified hyperlipidemia documented in this encounter Care Teams Hog Grader Relationship Specialty Start Date End Date Cesar Mendez MD 805 [facility] 1 [place] [address] PCP - General Family Practice 01/13/20 documented as of this encounter
--- OUTSIDE RECORDS SUMMARY | 2025-09-27 14:46 | XMS_ITS | Encounter Summary ---
Author Organization [facility] Address [address] [place] [address] Care Team Providers Care Payroll Benefits Administrator Name Role Phone Cesar Mendez MD Primary Care Provider [phone] Encounter Details Date Type Department Care Team (Latest Contact Info) Description 03/13/2000 Outpatient Historical HIS [facility] Vince Chaney Jr., MD [address] [place] [address] Type I (juvenile type) diabetes mellitus without mention of complication, not stated as uncontrolled (Primary Dx); Unspecified essential hypertension; Malignant neoplasm of breast (female), unspecified site Social History Tobacco Use Types Packs/Day Years Used Date Smoking Tobacco: Never Assessed Comments Unknown Sex and Gender Information Value Date Recorded Sex Assigned at Not on file 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 Gender Identity Not on file Sexual Orientation Not on file documented as of this encounter Plan of Treatment Not on file documented as of this encounter Visit Diagnoses Diagnosis Type I (juvenile type) diabetes mellitus without mention of complication, not stated as uncontrolled- Primary Unspecified essential hypertension Malignant neoplasm of breast (female), unspecified site documented in this encounter Care Teams Payroll Benefits Administrator Relationship Specialty Start Date End Date Cesar Mendez MD [address] [address] PCP - General Family Practice 01/13/20 documented as of this encounter
--- OUTSIDE RECORDS SUMMARY | 2025-09-27 14:46 | XMS_ITS | Encounter Summary ---
Author Organization [employer] [facility] Address [address] [place] [address] Care Team Providers Care Psychiatric Clinician Name Role Phone Cesar Mendez MD Primary Care Provider [phone] Encounter Details Date Type Department Care Team (Latest Contact Info) Description 09/23/1999 Outpatient Historical HIS [facility] Antonio Mathis MD [address] [place] [address] Other specified aftercare following surgery (Primary Dx) Social History Tobacco Use Types Packs/Day Years Used Date Smoking Tobacco: Never Assessed Comments Unknown Sex and Gender Information Value Date Recorded Sex Assigned at Not on file 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
--- OUTSIDE RECORDS SUMMARY | 2025-09-27 14:46 | XMS_ITS | Encounter Summary ---
Author Organization [facility] Address [address] [place] [address] Care Team Providers Care Elementary Classroom Teacher Name Role Phone Cesar Mendez MD Primary Care Provider [phone] Encounter Details Date Type Department Care Team (Latest Contact Info) Description 12/18/1999 Outpatient Historical HIS [facility] GENER[facility] SURGERY Antonio Mathis MD [address] [place] [address] Personal history of malignant neoplasm of breast (Primary Dx) Social History Tobacco Use Types Packs/Day Years Used Date Smoking Tobacco: Never Assessed Comments Unknown Sex and Gender Information Value Date Recorded Sex Assigned at Not on file 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
--- OUTSIDE RECORDS SUMMARY | 2025-09-27 14:46 | XMS_ITS | Encounter Summary ---
Author Organization [facility] Address [address] [place] [address] Care Team Providers Care Grocery Caddy Name Role Phone Cesar Mendez MD Primary Care Provider [phone] Encounter Details Date Type Department Care Team (Latest Contact Info) Description 06/01/2000 Outpatient Historical HIS [facility] GENER[facility] SURGERY Antonio Mathis MD [address] [place] [address] Personal history of malignant neoplasm of breast (Primary Dx) Social History Tobacco Use Types Packs/Day Years Used Date Smoking Tobacco: Never Assessed Comments Unknown Sex and Gender Information Value Date Recorded Sex Assigned at Not on file 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
--- OUTSIDE RECORDS SUMMARY | 2025-09-27 14:46 | XMS_ITS | Encounter Summary ---
Author Organization [facility] Address [address] [place] [address] Care Team Providers Care Order Make Up Clerk Name Role Phone Cesar Mendez MD Primary Care Provider [phone] Encounter Details Date Type Department Care Team (Latest Contact Info) Description 02/19/2000 Outpatient Historical HIS [facility] Vince Chaney Jr., MD [address] [place] [address] Type II or unspecified type diabetes mellitus without mention of complication, not stated as uncontrolled (Primary Dx); Unspecified essential hypertension; Other abnormal blood chemistry; Hypopotassemia Social History Tobacco Use Types Packs/Day Years Used Date Smoking Tobacco: Never Assessed Comments Unknown Sex and Gender Information Value Date Recorded Sex Assigned at Not on file 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 Gender Identity Not on file Sexual Orientation Not on file documented as of this encounter Plan of Treatment Not on file documented as of this encounter Visit Diagnoses Diagnosis Type II or unspecified type diabetes mellitus without mention of complication, not stated as uncontrolled- Primary Unspecified essential hypertension Other abnormal blood chemistry Hypopotassemia documented in this encounter Care Teams Order Make Up Clerk Relationship Specialty Start Date End Date Cesar Mendez MD 805 [facility] 1 [place] [address] PCP - General Family Practice 01/13/20 documented as of this encounter
--- OUTSIDE RECORDS SUMMARY | 2025-09-27 14:47 | XMS_ITS | Encounter Summary ---
Author Organization [facility] Address [address] [place] [address] Care Team Providers Care Coin Collector Name Role Phone Cesar Mendez MD Primary Care Provider [phone] Encounter Details Date Type Department Care Team (Latest Contact Info) Description 08/26/1999 Outpatient Historical HIS [facility] Antonio Mathis MD [address] [place] [address] Malignant neoplasm of breast (female), unspecified site (Primary Dx) Social History Tobacco Use Types Packs/Day Years Used Date Smoking Tobacco: Never Assessed Comments Unknown Sex and Gender Information Value Date Recorded Sex Assigned at Not on file 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 1 [place] [phone] PCP - General Family Practice 01/13/20 documented as of this encounter
--- OUTSIDE RECORDS SUMMARY | 2025-09-27 14:47 | XMS_ITS | Encounter Summary ---
Author Organization [facility] Address [address] [place] [address] Care Team Providers Care Supplier Diversity Director Name Role Phone Cesar Mendez MD Primary Care Provider [phone] Reason for Referral * Radiology Services (Routine) - Closed Specialty Diagnoses / Procedures Referred By Contac t Referred To Contact Diagnoses Chronic kidney disease, stage IV (severe) (CMS/HCC) Procedures US BIOPSY ABDOMEN Wu Clark MD Referral ID Status Reason Start Date Expiration Date Visits Re quested Visits Authorized [id number] Closed 01/04/2019 02/04/2020 1 1 CUTTER HELPER Encounter Details Date Type Department Care Team (Latest Contact Info) Description 01/04/2019 Ancillary Orders [facility] Ultrasound [address] [place] [phone] Wu Clark MD NO ADDRESS ON FILE Chronic kidney disease, stage IV (severe) (CMS/HCC) Social History Tobacco Use Types Packs/Day Years Used Date Smoking Tobacco: Never Assessed Comments Unknown Sex and Gender Information Value Date Recorded Sex Assigned at Not on file Legal Sex Female 4:12 AM BIAS CUTTER HELPER Gender Identity Not on file Sexual Orientation Not on file documented as of this encounter Plan of Treatment Not on file documented as of this encounter Results * US BIOPSY ABDOMEN (01/12/2019 1:10 PM BIAS CUTTER HELPER) Anatomical Region Laterality Modality Abdomen Ultrasound 01/12/2019 1:10 PM BIAS CUTTER HELPER Impressions 01/12/2019 3:32 PM BIAS CUTTER HELPER IMPRESSION: Please see below. Date: 01/12/2019 1:10 PM Reason For Exam: See Diagnosis. Diagnosis: Chronic kidney disease, stage IV (severe). Seasoning Sprayer: Dr. Machado Moderate (conscious) sedation for this procedure was performed with continuous physician supervision. Medical history, physical exam, drug dosages, routes of drug administration, monitoring data, and precise times of service are documented in the medical record on the [facility]-approved form, 'Sedative/Analgesic Administration for Diagnostic and Therapeutic Procedures'. Please see nursing flow sheets for dosage and time. PROCEDURE AND FINDINGS: Successful ultrasound guided [place] kidney biopsy. Preliminary pathology report deems the [...] for evaluation. ++++++++++++++++++++ IMPRESSION: Successful ultrasound guided [place] kidney biopsy with results pending. Narrative Procedure Note Yvon Machado MD - 01/12/2019 IMPRESSION: Please see below. Date: 01/12/2019 1:10 PM Reason For Exam: See Diagnosis. Diagnosis: Chronic kidney disease, stage IV (severe). Seasoning Sprayer: Dr. Machado Moderate (conscious) sedation for this procedure was performed with continuous physician supervision. Medical history, physical exam, drug dosages, routes of drug administration, monitoring data, and precise times of service are documented in the medical record on the [facility]-approved form, 'Sedative/Analgesic Administration for Diagnostic and Therapeutic Procedures'. Please see nursing flow sheets for dosage and time. PROCEDURE AND FINDINGS: Successful ultrasound guided [place] kidney biopsy. Preliminary pathology report deems the [...] for evaluation. ++++++++++++++++++++ IMPRESSION: Successful ultrasound guided [place] kidney biopsy with results pending. us Wu Clark MD US ORDERABLES Final Result documented in this encounter Visit Diagnoses Diagnosis Chronic kidney disease, stage IV (severe) (CMS/HCC) Chronic kidney disease, Stage IV (severe) Chronic kidney disease, stage IV (severe) (CMS/HCC) Chronic kidney disease, Stage IV (severe) documented in this encounter Care Teams Supplier Diversity Director Relationship Specialty Start Date End Date Cesar Mendez MD [address] [phone] PCP - General Family Practice 01/13/20 documented as of this encounter
--- OUTSIDE RECORDS SUMMARY | 2025-09-27 14:47 | XMS_ITS | Encounter Summary ---
Author Organization [email or web address] [facility] Address [address] [place] [address] Care Team Providers Care Rn Community Name Role Phone Cesar Mendez MD Primary Care Provider [phone] Encounter Details Date Type Department Care Team (Latest Contact Info) Description 08/16/1999 Outpatient Historical HIS [facility] Vince Chaney Jr., MD [address] [place] [address] Abn Pap Smear-Cervix (Primary Dx) Social History Tobacco Use Types Packs/Day Years Used Date Smoking Tobacco: Never Assessed Comments Unknown Sex and Gender Information Value Date Recorded Sex Assigned at Not on file 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
--- OUTSIDE RECORDS SUMMARY | 2025-09-27 14:47 | XMS_ITS | Encounter Summary ---
Author Organization [facility] Address [address] [place] [address] Care Team Providers Care Transition Assistant Name Role Phone Cesar Mendez MD Primary Care Provider [phone] Reason for Referral * Radiology Services (Routine) - Closed Specialty Diagnoses / Procedures Referred By George wallace Referred To Contact Radiology Diagnoses End stage renal disease (CMS/HCC) Procedures IR VENOUS ACCESS IR FISTULOGRAM Wu Clark MD [facility] Interventional Radiology [address] [place] [address] Phone: tel: fax: Referral ID Status Reason Start Date Expiration Date Visits Re quested Visits Authorized [id number] Closed 12/19/2020 01/19/2022 1 1 ATCH COORDINATOR Encounter Details Date Type Department Care Team (Latest Contact Info) Description 12/19/2020 Ancillary Orders [facility] Interventional Radiology [address] [place] [address] Wu Clark MD NO ADDRESS [...] on file Legal Sex Female 4:12 AM DISPATCH COORDINATOR Gender Identity Not on file Sexual Orientation Not on file COVID-19 Exposure Response Date Recorded In the last month, have you been in contact with someone who was confirmed or suspected to have Coronavirus / COVID-19? No / Unsure 12/21/2020 10:18 AM DISPATCH COORDINATOR documented as of this encounter Plan of Treatment Not on file documented as of this encounter Results * IR VENOUS ACCESS (12/21/2020 1:09 PM DISPATCH COORDINATOR) Anatomical Region Laterality Modality X-Ray Angiograph y 12/21/2020 1:09 PM DISPATCH COORDINATOR Impressions 12/21/2020 5:03 PM DISPATCH COORDINATOR IMPRESSION: Please see below. EXAM: Ultrasound and fluoroscopy guided tunneled hemodialysis catheter placement OPERATORS: Robert Castro MD ACCESS SITE: Right internal jugular vein with ultrasound MEDICATIONS: Versed and Fentanyl were titrated to effect. Ancef 2 gram IV. CONTRAST: None FLUOROSCOPY TIME: 0.8 minutes CATHETER: 14.5 [place], 23 cm tip to cuff catheter ESTIMATED [...] and the needle exchanged for a 5 [place] transitional dilator. A 0.035-inch wire was advanced [...] skin tract was dilated and a 15 [place] dilator peel-away combination placed over the wire. [...] None FLUOROSCOPY TIME: 0.8 minutes CATHETER: 14.5 [place], 23 cm tip to cuff catheter ESTIMATED [...] and the needle exchanged for a 5 [place] transitional dilator. A 0.035-inch wire was advanced [...] skin tract was dilated and a 15 [place] dilator peel-away combination placed over the wire. [...] disease documented in this encounter Care Teams Transition Assistant Relationship Specialty Start Date End Date Cesar Mendez MD [address] [phone] PCP - General Family Practice 01/13/20 documented as of this encounter
--- OUTSIDE RECORDS SUMMARY | 2025-09-27 14:47 | XMS_ITS | Encounter Summary ---
Author Organization [facility] Address [address] [place] [address] Care Team Providers Care Principal Cloud Architect Name Role Phone Cesar Mendez MD Primary Care Provider [phone] Reason for Referral * Radiology Services (Routine) - Closed Specialty Diagnoses / Procedures Referred By George wallace Referred To Contact Radiology Diagnoses Arteriovenous fistula occlusion, initial encounter Procedures IR FISTULOGRAM Wu Clark MD [facility] Interventional Radiology [address] [place] [address] Phone: tel: fax: Referral ID Status Reason Start Date Expiration Date Visits Re quested Visits Authorized [id number] Closed 12/10/2020 01/10/2022 1 1 L CLEANER Encounter Details Date Type Department Care Team (Latest Contact Info) Description 12/10/2020 Ancillary Orders [facility] Interventional Radiology [address] [place] [address] Wu Clark MD NO ADDRESS [...] on file Legal Sex Female 4:12 AM WHEEL CLEANER Gender Identity Not on file Sexual Orientation Not on file COVID-19 Exposure Response Date Recorded In the last month, have you been in contact with someone who was confirmed or suspected to have Coronavirus / COVID-19? No / Unsure 12/10/2020 11:46 AM WHEEL CLEANER documented as of this encounter Plan of Treatment Not on file documented as of this encounter Results * IR FISTULOGRAM (12/10/2020 3:06 PM WHEEL CLEANER) Anatomical Region Laterality Modality X-Ray Angiograph y 12/10/2020 3:06 PM WHEEL CLEANER Impressions 12/10/2020 6:48 PM WHEEL CLEANER IMPRESSION: Please see below. Exam: Right upper [...] at the arterial limb and a 6 Bol[place]ian sheath was placed with its tip directed centrally. A 5 [place]ian straight end hole catheter was advanced over [...] the graft was punctured and a 6 Bolivian sheath was placed with its tip directed peripherally. A 5 Bol[place]ian Yamileth catheter was advanced over an angled [...] arterial limb access sheath, the indwelling 6 Bolivian sheath was replaced with an 8 Bolivian access sheath through which an 8 mm [...] at the arterial limb and a 6 Bolivian sheath was placed with its tip directed centrally. A 5 Bolivian straight end hole catheter was advanced over [...] the graft was punctured and a 6 Bolivian sheath was placed with its tip directed peripherally. A 5 Bolivian Yamileth catheter was advanced over an angled [...] arterial limb access sheath, the indwelling 6 Bolivian sheath was replaced with an 8 Bolivian access sheath through which an 8 mm [...] encounter documented in this encounter Care Teams Principal Cloud Architect Relationship Specialty Start Date End Date Cesar Mendez MD [address] [phone] PCP - General Family Practice 01/13/20 documented as of this encounter
--- OUTSIDE RECORDS SUMMARY | 2025-09-27 14:47 | XMS_ITS | Encounter Summary ---
Author Organization [employer] [facility] Address [address] [place] [address] Care Team Providers Care Wall And Floor Tiler Name Role Phone Cesar Mendez MD Primary Care Provider [phone] Encounter Details Date Type Department Care Team (Latest Contact Info) Description 08/14/1999 Outpatient Historical [facility] Vince Chaney Jr., MD [address] [place] [address] Unspecified essential hypertension (Primary Dx); Lump or mass in breast Social History Tobacco Use Types Packs/Day Years Used Date Smoking Tobacco: Never Assessed Comments Unknown Sex and Gender Information Value Date Recorded Sex Assigned at Not on file 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
--- OUTSIDE RECORDS SUMMARY | 2025-09-27 14:47 | XMS_ITS | Encounter Summary ---
Author Organization [facility] Address [address] [place] [address] Care Team Providers Care Marketing Recruiter Name Role Phone Cesar Mendez MD Primary Care Provider [phone] Encounter Details Date Type Department Care Team (Latest Contact Info) Description 09/27/1998 Outpatient Historical [facility] Fady Jones MD [address] [place] [address] Hypotension, unspecified (Primary Dx); Unspecified hypothyroidism; Dyspepsia and other specified disorders of function of stomach Social History Tobacco Use Types Packs/Day Years Used Date Smoking Tobacco: Never Assessed Comments Unknown Sex and Gender Information Value Date Recorded Sex Assigned at Not on file 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
--- OUTSIDE RECORDS SUMMARY | 2025-09-27 14:47 | XMS_ITS | Encounter Summary ---
Author Organization [employer] [facility] Address [address] [place] [address] Care Team Providers Care Research Manufacturing Operator Name Role Phone Cesar Mendez MD Primary Care Provider [phone] Encounter Details Date Type Department Care Team (Latest Contact Info) Description 06/11/1998 Outpatient Historical [facility] Chris Connelly MD NO ADDRESS ON FILE Backache, unspecified (Primary Dx) Social History Tobacco Use Types Packs/Day Years Used Date Smoking Tobacco: Never Assessed Comments Unknown Sex and Gender Information Value Date Recorded Sex Assigned at Not on file Legal Sex Female 4:12 AM MANAGEMENT EXPERT Gender Identity Not on file Sexual Orientation Not on file documented as of this encounter Plan of Treatment Not on file documented as of this encounter Visit Diagnoses Diagnosis Backache, unspecified- Primary documented in this encounter Care Teams Research Manufacturing Operator Relationship Specialty Start Date End Date Cesar Mendez MD [address] [facility] [address] [place] [phone] PCP - General Family Practice 01/13/20 documented as of this encounter
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
--- OUTSIDE RECORDS SUMMARY | 2025-09-27 14:47 | XMS_ITS | Encounter Summary ---
Author Organization [facility] Address [address] [place] [address] Care Team Providers Care Sheet Metal Apprentice Name Role Phone Cesar Mendez MD Primary Care Provider [phone] Reason for Referral * Radiology Services (Routine) - Closed Specialty Diagnoses / Procedures Referred By George wallace Referred To Contact Radiology Diagnoses ESRD on dialysis ([facility]) Procedures IR FISTULOGRAM Wu Clark MD [facility] Interventional Radiology [address] [place] [address] Phone: tel: fax: Referral ID Status Reason Start Date Expiration Date Visits Re quested Visits Authorized [id number] Closed 11/30/2020 12/31/2021 1 1 FLOW OPERATOR Encounter Details Date Type Department Care Team (Latest Contact Info) Description 11/30/2020 Ancillary Orders [facility] Interventional Radiology [address] [place] [address] Wu Clark MD NO ADDRESS ON FILE ESRD on dialysis ([facility]) Social History Tobacco Use Types Packs/Day Years Used Date Smoking Tobacco: Never Smokeless Tobacco: Never Alcohol Use Standard Drinks/Week Comments Never 0 (1 standard drink = 0.6 oz pur e alcohol) Comments No Sex and Gender Information Value Date Recorded Sex Assigned at Not on file Legal Sex Female 4:12 AM WELL FLOW OPERATOR Gender Identity Not on file Sexual Orientation Not on file COVID-19 Exposure Response Date Recorded In the last month, have you been in contact with someone who was confirmed or suspected to have Coronavirus / COVID-19? No / Unsure 11/30/2020 11:40 AM WELL FLOW OPERATOR documented as of this encounter Plan of Treatment Not on file documented as of this encounter Results * IR FISTULOGRAM (11/30/2020 3:52 PM WELL FLOW OPERATOR) Anatomical Region Laterality Modality X-Ray Angiograph y 11/30/2020 3:52 PM WELL FLOW OPERATOR Impressions 11/30/2020 6:58 PM WELL FLOW OPERATOR IMPRESSION: Please see below. Exam: Right upper [...] dialysis graft was punctured and a 6 Latvian sheath was placed with its tip directed centrally. A 5 Latvian straight end hole catheter was advanced over [...] the graft was punctured and a 6 Latvian sheath was placed with its tip directed peripherally. A 5 Latvian Yamileth balloon catheter was advanced over the [...] outflow of the graft. The indwelling 6 Latvian arterial limb access sheath was replaced with an 8 Latvian access sheath through which a 9 mm [...] dialysis graft was punctured and a 6 Latvian sheath was placed with its tip directed centrally. A 5 Latvian straight end hole catheter was advanced over [...] the graft was punctured and a 6 Latvian sheath was placed with its tip directed peripherally. A 5 Latvian Yamileth balloon catheter was advanced over the [...] outflow of the graft. The indwelling 6 Latvian arterial limb access sheath was replaced with an 8 Latvian access sheath through which a 9 mm [...] encounter Visit Diagnoses Diagnosis ESRD on dialysis ([facility]) End stage renal disease ESRD on dialysis ([facility]) End stage renal disease documented in this encounter Care Teams Sheet Metal Apprentice Relationship Specialty Start Date End Date Cesar Mendez MD [address] [id number] PCP - General Family Practice 01/13/20 documented as of this encounter
--- OUTSIDE RECORDS SUMMARY | 2025-09-27 14:47 | XMS_ITS | Encounter Summary ---
Author Organization [facility] Address [address] [place] [address] Care Team Providers Care Roustabout Crew Pusher Name Role Phone Cesar Mendez MD Primary Care Provider [phone] Reason for Referral * Radiology Services (Routine) - Closed Specialty Diagnoses / Procedures Referred By George wallace Referred To Contact Radiology Diagnoses Arteriovenous fistula occlusion, initial encounter Procedures IR FISTULOGRAM Wu Clark MD [facility] Interventional Radiology [address] [place] [address] Phone: tel: fax: Referral ID Status Reason Start Date Expiration Date Visits Re quested Visits Authorized [id number] Closed 11/21/2020 12/22/2021 1 1 ATION MANAGER Encounter Details Date Type Department Care Team (Latest Contact Info) Description 11/21/2020 Ancillary Orders [facility] Interventional Radiology [address] [place] [address] Wu Clark MD NO ADDRESS [...] on file Legal Sex Female 4:12 AM VALUATION MANAGER Gender Identity Not on file Sexual Orientation Not on file COVID-19 Exposure Response Date Recorded In the last month, have you been in contact with someone who was confirmed or suspected to have Coronavirus / COVID-19? No / Unsure 11/22/2020 8:30 AM VALUATION MANAGER documented as of this encounter Plan of Treatment Not on file documented as of this encounter Results * IR FISTULOGRAM (11/22/2020 10:46 AM VALUATION MANAGER) Anatomical Region Laterality Modality X-Ray Angiograph y 11/22/2020 10:4 6 AM VALUATION MANAGER Impressions 11/23/2020 7:56 AM VALUATION MANAGER IMPRESSION: 1. Sonography and fistulography demonstrated occlusive thrombus in the right upper arm arterial venous graft. 2. Thrombolysis and thrombectomy resulted in denominational of vascular flow through the arteriovenous graft. 3. Angioplasty of a stenotic lesion at the venous anastomosis resulted in brisk flow and mild residual stenosis. Narrative 11/23/2020 7:56 AM VALUATION MANAGER PROCEDURE: 1. Ultrasound-guided vascular access. 2. Fistulography [...] prepped and draped in usual sterile manner. Mcclure timeout protocol was performed. Sonographic evaluation of the right upper arm arterial venous graft showed occlusive thrombus within the graft. Using real-time ultrasound guidance, the arterial limb of the graft was accessed with micropuncture needle after anesthetizing the skin with 2% lidocaine (an ultrasound image is archived to PACS). Using standard micropuncture technique, the tract was dilated, and a 6 Cuban vascular sheath was inserted over a guidewire and directed antegrade. A 4 Cuban MommyCoach diagnostic catheter was advanced over wire into the right axillary vein, and a gentle pullback venogram was performed. This demonstrated occlusive thrombus in the arteriovenous graft. Catheter-directed thrombolysis of thrombus in the arterial venous graft was performed using 4 mg of TPA. Balloon maceration of the thrombus in the arteriovenous graft was performed using an 8 mm x 40 mm [place] balloon. Percutaneous transluminal angioplasty of a short [...] the tract was dilated, and a 6 Cuban vascular sheath was inserted over a guidewire and directed retrograde. A Yamileth balloon was advanced over a guidewire into the right brachial artery, and Yamileth thrombectomy of the arterial limb of the graft was performed. Subsequent arteriography performed from the right brachial artery demonstrated denominational of flow through the arteriovenous graft. A small to moderate amount of residual thrombus was seen within the graft. Balloon maceration of the thrombus in the graft was again performed. Subsequent angiography demonstrated denominational of brisk flow in the arterial venous graft and no significant residual stenosis. A short segment of 65% stenosis was again seen at the venous anastomosis. A prolonged inflation of the 8 mm balloon was performed at the venous anastomosis. Subsequent angiography demonstrated denominational of brisk flow and less than 50% [...] prepped and draped in usual sterile manner. Mcclure timeout protocol was performed. Sonographic evaluation of the right upper arm arterial venous graft showed occlusive thrombus within the graft. Using real-time ultrasound guidance, the arterial limb of the graft was accessed with micropuncture needle after anesthetizing the skin with 2% lidocaine (an ultrasound image is archived to PACS). Using standard micropuncture technique, the tract was dilated, and a 6 Cuban vascular sheath was inserted over a guidewire and directed antegrade. A 4 Cuban [employer] diagnostic catheter was advanced over wire into the right axillary vein, and a gentle pullback venogram was performed. This demonstrated occlusive thrombus in the arteriovenous graft. Catheter-directed thrombolysis of thrombus in the arterial venous graft was performed using 4 mg of TPA. Balloon maceration of the thrombus in the arteriovenous graft was performed using an 8 mm x 40 mm [place] balloon. Percutaneous transluminal angioplasty of a short [...] the tract was dilated, and a 6 Cuban vascular sheath was inserted over a guidewire and directed retrograde. A Yamileth balloon was advanced over a guidewire into the right brachial artery, and Yamileth thrombectomy of the arterial limb of the graft was performed. Subsequent arteriography performed from the right brachial artery demonstrated denominational of flow through the arteriovenous graft. A small to moderate amount of residual thrombus was seen within the graft. Balloon maceration of the thrombus in the graft was again performed. Subsequent angiography demonstrated denominational of brisk flow in the arterial venous graft and no significant residual stenosis. A short segment of 65% stenosis was again seen at the venous anastomosis. A prolonged inflation of the 8 mm balloon was performed at the venous anastomosis. Subsequent angiography demonstrated denominational of brisk flow and less than 50% [...] graft. 2. Thrombolysis and thrombectomy resulted in denominational of vascular flow through the arteriovenous graft. 3. Angioplasty of a stenotic lesion at the venous anastomosis resulted in brisk flow and mild residual stenosis. Wu Clark MD IR ORDERABLES Final Result documented in this encounter Visit Diagnoses Diagnosis Arteriovenous fistula occlusion, initial encounter Arteriovenous fistula occlusion, initial encounter documented in this encounter Care Teams Roustabout Crew Pusher Relationship Specialty Start Date End Date Cesar Mendez MD [address] [phone] PCP - General Family Practice 01/13/20 documented as of this encounter
--- OUTSIDE RECORDS SUMMARY | 2025-09-27 14:47 | XMS_ITS | Encounter Summary ---
Author Organization [facility] Address [address] [place] [address] Care Team Providers Care Interior Design Program Chair Name Role Phone Cesar Mendez MD Primary Care Provider [phone] Encounter Details Date Type Department Care Team (Late st Contact Info) Description 09/03/1999 Outpatient Historical [facility] [address] [place] [phone] Mirian Nj MD NO ADDRESS ON FILE Other sign and symptom in breast (Primary Dx) Social History Tobacco Use Types Packs/Day Years Used Date Smoking Tobacco: Never Assessed Comments Unknown Sex and Gender Information Value Date Recorded Sex Assigned at Not on file Legal Sex Female 4:12 AM HEALTHCARE CONSULTANT Gender Identity Not on file Sexual Orientation Not on file documented as of this encounter Plan of Treatment Not on file documented as of this encounter Visit Diagnoses Diagnosis Other sign and symptom in breast- Primary documented in this encounter Care Teams Interior Design Program Chair Relationship Specialty Start Date End Date Cesar Mendez MD [address] [facility] [address] [place] [address] PCP - General Family Practice 01/13/20 documented as of this encounter
--- NOTE | 2025-09-27 17:00 | PM.HP ---
Providers/Chief Complaint Admitting Physician: Ponce Huerta MD Primary Care Provider: Cesar Mendez MD Chief Complaint: AMS History of Present Illness María Saab is a 75 year old female with pmhx of HTN, HLD, DM. ESRD, and hypothyroidism presenting with complaints of altered mental status. Patient family reports that on 09/22/25 she went to dialysis and had some confusion - asking staff to cut the sleeves off her shirt. The next day she had confused speech. 09/23/25 she appeared more alert but had chills. Family suspects she may have had infection after hiding a left arm wound that was related to a (06/2025) left arm fracture and surgery. The arm site was hard, warm, swollen, and required a course of outpatient antibiotics. 09/26/25 she put napkins instead of bread in the toaster, and became more aware of hallucinations of people and animals in her home. Overall, patient has had declining mentation and recurrent UTI's for approximately 1.5 years. She was found to be taking her medicine from three bowls - mixed in was a lot of benadryl. Family reports she may have thought they were bowls of candy. Today, she became so confused and weak that she could not feed herself. She was transported to [facility] ED for further evaluation and treatment. Son is at bedside. Review of Systems General: Reports: ROS unobtainable due to mental status Medications/Allergies Home Medications ?Medication ?Instructions ?Recorded ?Confirmed ?Last Taken ?Type amitriptyline 100 mg tablet 100 mg PO BEDTIME 10/02/20 09/27/25 09/16/25 History tamsulosin 0.4 mg capsule 0.4 mg PO QAM 07/18/22 09/27/25 09/26/25 13:00 History flash glucose scanning reader #1 ea 12/15/22 09/27/25 04/30/23 Rx (FreeStyle Anita 2 Pratt) flash glucose sensor (FreeStyle #3 ea 12/15/22 09/27/25 04/30/23 Rx Anita 2 Sensor kit) ropinirole 1 mg tablet 1 mg PO BEDTIME 02/27/23 09/27/25 09/26/25 19:00 History vit B,C-folic ac 800 mcg-zinc 12.5 1 tab PO QAM 02/27/23 09/27/25 09/26/25 History mg-selen-D3 2,000 unit-vit E tablet (RenaPlex-D) wheel chair #1 ea 04/30/23 09/27/25 04/30/23 Rx folic acid 0.8 mg-vit B comp with 1 tab PO QAM 08/29/23 09/27/25 09/26/25 08:00 History B-dwbl-dnscieu D3 2,000 unit tablet (Dialyvite 800-Ultra D) denosumab 60 mg/mL subcutaneous 60 mg SUBCUT .d1ybavdr #1 mL 06/11/24 09/27/25 06/15/25 Rx syringe (Prolia) ferric citrate 210 mg iron tablet 1 tab PO TID 12/27/24 09/27/25 09/26/25 History (Auryxia) gabapentin 100 mg capsule 100 mg PO BEDTIME 12/27/24 09/27/25 09/15/25 History levothyroxine 25 mcg tablet 25 mcg PO DAILY #90 tabs 06/09/25 09/27/25 09/26/25 Rx (Synthroid) Sling #1 ea 07/06/25 09/27/25 Unknown Rx glipizide 5 mg tablet 5 mg PO TID 07/11/25 09/27/25 07/10/25 History prednisolone acetate 1 % eye 1 drp ophthalmic (eye) QID 07/11/25 09/27/25 07/10/25 History drops,suspension midodrine 10 mg tablet 10 mg PO Q8H 09/17/25 09/27/25 09/26/25 History semaglutide 0.25 mg or 0.5 mg (2 0.5 mg SUBCUT Q7D 09/17/25 09/27/25 09/11/25 History mg/3 mL) subcutaneous pen injector (Ozempic) cephalexin 500 mg capsule 500 mg PO Q6H 09/27/25 09/27/25 Unknown History levothyroxine 200 mcg tablet 200 mcg PO DAILY #30 tabs 09/27/25 09/27/25 09/26/25 Rx Allergies Allergy/AdvReac Type Severity Reaction Status Date / Time Penicillins Allergy Mild ALGY-Rash Verified 09/21/25 07:53 propoxyphene (From Darvon) Allergy Mild ALGY-Rash Verified 09/21/25 07:53 codeine Allergy ALGY-Rash Verified 09/21/25 07:53 midodrine Allergy ALGY-Hives Verified 09/27/25 18:37 PFSH Acute PFSH: Medical History Lower GI bleed requiring more than 4 units of blood in 24 hours, ICU, or surgery (07/2022) Abdominal bloating SOB (shortness of breath) Spondylolisthesis at L4-L5 level Compression fracture of L4 vertebra Compression fracture of thoracic vertebra Cerebellar stroke syndrome Incomplete bladder emptying Hydronephrosis Ureteral obstruction, right HX OF RIGHT URETEROSCOPY WITH STENT PLACEMENT Obstructive pyelonephritis Kidney stones Hemodialysis patient Chronic kidney disease (CKD) Pleural effusion on right Microcytic anemia Type 2 diabetes mellitus Hx of breast cancer History of peritoneal dialysis HTN (hypertension) Hyperlipidemia Hypothyroidism Cataract Closed fracture of left proximal humerus Surgical History History of cholecystectomy S/P hemodialysis catheter insertion Right IJ: Removed History of surgery Right-sided pleurodesis and Pleurx catheter placement S/P dialysis catheter insertion Peritoneal dialysis catheter placement x3 according to patient, revisions had to be performed in [facility] at an outside facility Hemodialysis catheter placement Hx of cataract surgery Hx of tonsillectomy H/O tubal ligation History of surgery on arm H/O skin graft History of lumpectomy of left breast H/O knee surgery History of kidney surgery Family History Mother Stroke Father Stroke Social History Smoking and tobacco/nicotine status: never used tobacco/nicotine Alcohol intake: never Substance/Drug Use: never Lives independently: Yes Household members: spouse Marital status: Current occupational status: employed Do you think of yourself as: Straight/Heterosexual Current gender identity: Female Vitals/I&O/Wt Last Vital Signs Temp 98.0 F 09/27/25 23:22 Pulse 77 09/27/25 23:22 Resp 18 09/27/25 23:22 BP 118/62 09/27/25 23:22 Pulse Ox 98 09/27/25 23:22 O2 Del Method Room Air 09/27/25 23:22 09/27/25 09/27/25 09/28/25 14:59 22:59 06:59 Intake Total 250 / 250 100 / 350 Balance 250 / 250 100 / 350 Weight last 48 hrs Weight 59.052 kg Weight 58.06 kg Physical Exam Narrative: Skin: Warm, dry. Head: Normocephalic, atraumatic. Neck: Supple, trachea midline. Eye: Extraocular movements are intact. Ears, nose, mouth and throat: mucosa moist. Cardiovascular: 2+ edema with venous stasis dermatitis and redness. Respiratory: Respirations are non-labored. Gastrointestinal: Soft, Nontender, Non distended. Musculoskeletal: Normal ROM, no deformity. Neurological: Somnolent but arousable. Data 09/27/25 12:00 09/27/25 12:00 Micro: Microbiology 09/27/25 12:38 Blood Culture - Preliminary Blood SPECIMEN COLLECTED 09/27/25 12:00 Blood Culture - Preliminary Blood SPECIMEN COLLECTED A&P Assessment and plan 1. Acute encephalopathy: CXR; presumed small remnant right pleural effusion, no acute/subacure pulmonary parenchymal or pleural abnormality Head CT; no acure intracranial abnormality, if s/s persist, consider further evaluation w/ MRI, stable extra-axial lesion overlaying left parietal vertex measureing up to 2.3 cm, see full result Fall precautions PT/OT before discharge Patient uses wheelchair at baseline 2. End stage renal disease: BUN 9, Creatinine 1.9 Patient on dialysis Avoid nephrotoxic agents Monitor CMP 3. Recurrent UTI: Urinalysis; dark yellow, cloudy, protienuria 3+, glucose 2+, 1+ leukocytes, 1+ bilirubin, WBC 11-20 Fluids Rocephin IV 4. Hypokalemia: K+ 2.9 Replete EKG Telemetry 5. Uncontrolled type 2 diabetes mellitus with hyperglycemia: Glucose 179 A1c Hold home regimen, sliding scale 6. Hypothyroidism, unspecified type: Continue home levothyroxine PDMP PDMP Reviewed: Not Reviewed Attestations Medical Necessity Statement*: Initial continued hospitalization for acute encephalopathy, expected greater than two midnights. Other Coding Information Procedural care (documented in this note), Procedural care (documented in another note) and Prolonged care (total time indicated above or notated here) Diagnoses Acute encephalopathy G93.40 End stage renal disease N18.6 Recurrent UTI N39.0 Hypokalemia E87.6 Uncontrolled type 2 diabetes mellitus with hyperglycemia Hypothyroidism, unspecified type E03.9 Time Spent (min) 70
[2025-09-27] MEDS: pantoprazole 40 mg SDV IVP (20:12)
[2025-09-27] MEDS: potassium chloride premix 100 ML 25 MEQ IV (20:12)
[2025-09-28] VITALS (8 sets, daily range): BP systolic 97–135; BP diastolic 45–69; PULSE 62–93; RESP 16–18; TEMP 36.4–36.9; O2SAT 90–94
[2025-09-28] MEDS: potassium chloride premix 100 ML 25 MEQ IV (00:15)
[2025-09-28 05:39] LABS: Hematocrit 33.4 % (36-47); Hemoglobin 10.50 g/dL (11.27-16.99); Mean Corpuscular HGB Conc 31.4 g/dL (30-55); Mean Corpuscular Hemoglobin 30.1 pg (27-33); Mean Corpuscular Volume 95.7 fl (85-98); Nucleated Red Blood Cells % 0 %; Platelet Count 142 10^3/cmm (157-399); Red Blood Count 3.49 10^6/uL (3.85-5.65); White Blood Count 8.47 10^3/uL (3.29-11.43)
[2025-09-28 06:03] LABS: Anion Gap 9.8 (5-19); Blood Urea Nitrogen 12 mg/dL (8-23); Calcium 8.1 mg/dL (8.5-10.5); Carbon Dioxide 29 mmol/L (22-29); Chloride 101 mmol/L (98-107); Glucose 168 mg/dL (65-115); Osmolality Calculated 284 mOsm/kg (285-295); Potassium 4.8 mmol/L (3.5-5.1); Sodium 135 mmol/L (136-145)
[2025-09-28] MEDS: pantoprazole 40 mg SDV IVP (20:28)
--- NOTE | 2025-09-28 20:44 | P.PN_ITS ---
Subjective 2 Subjective: the patient was seen in the morning, and was doing well, as per the family she is more alert and oriented and no more concerns voiced by the patient she is having left arm cellulitis and following with the wound care as outpatient Vitals/I&O/Wt Last Vital Signs Temp 98.4 F 09/28/25 20:00 Pulse 86 09/28/25 20:00 Resp 16 09/28/25 20:00 BP 118/52 09/28/25 19:24 Pulse Ox 92 09/28/25 20:00 O2 Del Method Room Air 09/28/25 20:00 09/28/25 09/28/25 09/28/25 06:59 14:59 22:59 Intake Total 250 / 500 980 / 980 360 / 1340 Output Total 0 / 0 Balance 250 / 500 980 / 980 360 / 1340 Weight last 48 hrs Weight 59.052 kg Weight 59.052 kg Weight 58.06 kg Physical Exam 2 Narrative: General: Alert and oriented, lying comfortably without any distress and able to communicate and interact HEENT: Normocephalic, atraumatic, grossly unremarkable exam Cardio: normal rate rhythm, normal S1-S2 without any murmurs, rubs, or gallops and JVD normal Respiratory: normal vascular breathing on auscultation without any wheezes, stridor, rhonchi GI: Abdomen soft, nontender, nondistended, normoactive bowel sounds present all 4 quadrants, Neuro: intact cranial nerves motor and sensory and cerebellar/coordination function without any focal neurological deficit Behavior: Appropriate and cooperative Extremities: Adequate palpable pulses, bilateral trace edema, having left arm with dressings and mild oozing can be seen through the dressing. Peripheral pulses of the arm palpable Data 09/28/25 05:22 09/28/25 05:22 Micro: Microbiology 09/27/25 12:38 Blood Culture - Preliminary Blood NEGATIVE TO DATE 09/27/25 12:00 Blood Culture - Preliminary Blood NEGATIVE TO DATE 09/27/25 12:00 Urine Culture - Preliminary Urine,Clean Catch A&P Assessment and plan 1. Acute encephalopathy: Head CT; no acure intracranial abnormality Acute encephalopathy related to possible left arm cellulitis and UTI? 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 End stage renal disease: Patient on dialysis and to follow the schedule for dialysis Avoid nephrotoxic agents Monitor CMP 3. Left arm cellulitis: Patient having left arm cellulitis and history of left arm fracture following with orthopedics as outpatient Continue wound care and to follow outpatient wound care as the patient is already following Continue IV ceftriaxone 1 g daily 4. Recurrent UTI: Urinalysis; dark yellow, cloudy, protienuria 3+, glucose 2+, 1+ leukocytes, 1+ bilirubin, WBC 11-20 Urine analysis sample showed squamous cells therefore there is possibility of contamination Repeat UA and follow urine cultures Continue ceftriaxone 1 g daily 5. Hypokalemia: Corrected Magnesium to follow EKG Telemetry 6. Uncontrolled type 2 diabetes mellitus with hyperglycemia: Patient on Ozempic as per notes from quality control head Continue inpatient insulin sliding scale with monitoring of blood glucose 7. Hypothyroidism, unspecified type: Continue home levothyroxine dose 8. Thrombocytopenia: Patient having thrombocytopenia however no acute source of bleeding or acute blood loss Continue to monitor Heparin twice daily to continue as VTE prophylaxis however if the platelets are dropping further then to discontinue heparin 9. HTN (hypertension): Currently blood pressure is more or less in the normal range and sometimes on the softer side To hold any antihypertensive medications Continue midodrine 10 mg 3 times daily Plan: Diet: Renal dialysis diet VTE: Heparin twice daily PDMP PDMP Reviewed: Not Reviewed Attestations 2 Medical Necessity Statement*: Patient will stay overnight for the management of acute encephalopathy likely related to UTI versus left arm cellulitis and further optimization/continuity of care of her chronic comorbidities Time Spent in Patient Care: 16 - 35 minutes (>than 50% of time sp ent in counselling and/or direct pt care on unit) . Other Attestations: Patient condition has been discussed at length with the patient/family, I have independently reviewed the chart labs imaging/diagnostics/EKG. the goals of care and code status with the patient/family/NOK/legal employment representative, and documented accordingly. The management has been done according to the current clinical condition with respect to patient goals of care and based on recommendations/guidelines. The patient/family has been informed about the current condition and further plan of care. Agreed with the plan of care and understood without any language barrier. Every effort was made to ensure accuracy of application specialist. Any obvious errors or omissions should be clarified with the author of the document. Coding Level of Care Code 61270 Diagnoses Acute encephalopathy G93.40 End stage renal disease N18.6 Left arm cellulitis L03.114 Recurrent UTI N39.0 Hypokalemia E87.6 Uncontrolled type 2 diabetes mellitus with hyperglycemia Hypothyroidism, unspecified type E03.9 Thrombocytopenia D69.6 HTN (hypertension) I10
--- NOTE | 2025-09-28 23:31 | PM.CONSULT ---
Providers/Reason For Consult Consulting Physician/Specialty*: jeancarlos davis md/ telenephrology Reason for Consult*: ESRD Requesting Physician: Dr Sai Edwards Attending Physician: Sawyer Edwards MD Primary Care Provider: Cesar Mendez MD History of Present Illness History of Present Illness María Saab is a 75 year old female admitted yesterday for altered mental status patient was diagnosed with cellulitis and UTI started on ceftriaxone she appears to be feeling better. Past medical history occludes hypertension hyperlipidemia and diabetes. Patient is on dialysis Thursday. Patient has a left arm wound due to surgery done in June that is already required a course of antibiotics. Patient denies shortness of breath or chest pain or headaches patient like to go home. Review of Systems Narrative: Episodes of confusion patient states she knows where she is and she is no longer use. Patient's been having difficulty taking care of herself at home and taking the correct medications. Medications/Allergies Home Medications ?Medication ?Instructions ?Recorded ?Confirmed ?Last Taken ?Type amitriptyline 100 mg tablet 100 mg PO BEDTIME 10/02/20 09/27/25 09/16/25 History tamsulosin 0.4 mg capsule 0.4 mg PO QAM 07/18/22 09/27/25 09/26/25 13:00 History flash glucose scanning reader #1 ea 12/15/22 09/27/25 04/30/23 Rx (FreeStyle Anita 2 [place]) flash glucose sensor (FreeStyle #3 ea 12/15/22 09/27/25 04/30/23 Rx Anita 2 Sensor kit) ropinirole 1 mg tablet 1 mg PO BEDTIME 02/27/23 09/27/25 09/26/25 19:00 History vit B,C-folic ac 800 mcg-zinc 12.5 1 tab PO QAM 02/27/23 09/27/25 09/26/25 History mg-selen-D3 2,000 unit-vit E tablet (RenaPlex-D) wheel chair #1 ea 04/30/23 09/27/25 04/30/23 Rx folic acid 0.8 mg-vit B comp with 1 tab PO QAM 08/29/23 09/27/25 09/26/25 08:00 History N-cldy-jjkyxjx D3 2,000 unit tablet (Dialyvite 800-Ultra D) denosumab 60 mg/mL subcutaneous 60 mg SUBCUT .n7gmlnwj #1 mL 06/11/24 09/27/25 06/15/25 Rx syringe (Prolia) ferric citrate 210 mg iron tablet 1 tab PO TID 12/27/24 09/27/25 09/26/25 History (Auryxia) gabapentin 100 mg capsule 100 mg PO BEDTIME 12/27/24 09/27/25 09/15/25 History levothyroxine 25 mcg tablet 25 mcg PO DAILY #90 tabs 06/09/25 09/27/25 09/26/25 Rx (Synthroid) Sling #1 ea 07/06/25 09/27/25 Unknown Rx glipizide 5 mg tablet 5 mg PO TID 07/11/25 09/27/25 07/10/25 History prednisolone acetate 1 % eye 1 drp ophthalmic (eye) QID 07/11/25 09/27/25 07/10/25 History drops,suspension midodrine 10 mg tablet 10 mg PO Q8H 09/17/25 09/27/25 09/26/25 History semaglutide 0.25 mg or 0.5 mg (2 0.5 mg SUBCUT Q7D 09/17/25 09/27/25 09/11/25 History mg/3 mL) subcutaneous pen injector (Ozempic) cephalexin 500 mg capsule 500 mg PO Q6H 09/27/25 09/27/25 Unknown History levothyroxine 200 mcg tablet 200 mcg PO DAILY #30 tabs 09/27/25 09/27/25 09/26/25 Rx Allergies Allergy/AdvReac Type Severity Reaction Status Date / Time Penicillins Allergy Mild ALGY-Rash Verified 09/21/25 07:53 propoxyphene (From Darvon) Allergy Mild ALGY-Rash Verified 09/21/25 07:53 codeine Allergy ALGY-Rash Verified 09/21/25 07:53 midodrine Allergy ALGY-Hives Verified 09/27/25 18:37 Current Medications Generic Name Dose Route Start Last Admin Trade Name Freq PRN Reason Stop Dose Admin Insulin Human Lispro 0 unit 09/28/25 21:00 09/28/25 20:29 Insulin Lispro 100 Unit/1 Ml SUBCUT 5 unit BEDTIME NIKKY Administration Protocol Levothyroxine Sodium 25 mcg 09/28/25 05:00 09/28/25 04:35 Levothyroxine 25 Mcg Tablet PO 25 mcg DAILY NIKKY Administration Levothyroxine Sodium 200 mcg 09/28/25 05:00 09/28/25 04:35 Levothyroxine 200 Mcg Tablet PO 200 mcg DAILY NIKKY Administration Pantoprazole Sodium 40 mg 09/27/25 19:45 09/28/25 20:28 Pantoprazole 40 Mg Sdv IVP 40 mg Q24H NIKKY Administration Tamsulosin HCl 0.4 mg 09/28/25 05:00 09/28/25 04:35 Tamsulosin 0.4 Mg Capsule PO 0.4 mg QAM NIKKY Administration PFSH Acute PFSH: Medical History (Updated 09/28/25 @ 21:07 by Sawyer Edwards MD) Lower GI bleed requiring more than 4 units of blood in 24 hours, ICU, or surgery (07/2022) Abdominal bloating SOB (shortness of breath) Spondylolisthesis at L4-L5 level Compression fracture of L4 vertebra Compression fracture of thoracic vertebra Cerebellar stroke syndrome Incomplete bladder emptying Hydronephrosis Ureteral obstruction, right HX OF RIGHT URETEROSCOPY WITH STENT PLACEMENT Obstructive pyelonephritis Kidney stones Hemodialysis patient Chronic kidney disease (CKD) Pleural effusion on right Microcytic anemia Type 2 diabetes mellitus Hx of breast cancer History of peritoneal dialysis HTN (hypertension) Hyperlipidemia Hypothyroidism Cataract Closed fracture of left proximal humerus Surgical History History of cholecystectomy S/P hemodialysis catheter insertion Right IJ: Removed History of surgery Right-sided pleurodesis and Pleurx catheter placement S/P dialysis catheter insertion Peritoneal dialysis catheter placement x3 according to patient, revisions had to be performed in [facility] at an outside facility Hemodialysis catheter placement Hx of cataract surgery Hx of tonsillectomy H/O tubal ligation History of surgery on arm H/O skin graft History of lumpectomy of left breast H/O knee surgery History of kidney surgery Family History Mother Stroke Father Stroke Social History Smoking and tobacco/nicotine status: never used tobacco/nicotine Alcohol intake: never Substance/Drug Use: never Lives independently: Yes Household members: spouse Marital status: Current occupational status: employed Do you think of yourself as: Straight/Heterosexual Current gender identity: Female Vitals/I&O/Wt Last Vital Signs Temp 98.4 F 09/28/25 20:00 Pulse 86 09/28/25 20:00 Resp 16 09/28/25 20:00 BP 118/52 09/28/25 19:24 Pulse Ox 92 09/28/25 20:00 O2 Del Method Room Air 09/28/25 20:00 09/28/25 09/28/25 09/29/25 14:59 22:59 06:59 Intake Total 980 / 980 360 / 1340 Balance 980 / 980 360 / 1340 Weight last 48 hrs Weight 59.052 kg Weight 59.052 kg Weight 58.06 kg Physical Exam Narrative: Patient is in bed no apparent distress vital signs noted. HEENT normocephalic atraumatic. Neck is supple no JVD. Lungs have good air movement. Heart is regular no rubs or gallops. Abdomen is soft positive bowel sounds. Extremities left upper extremity is bandaged and wrapped. Right arm AV fistula with good thrill and bruit. Legs do not have significant edema. Neuro awake and alert interactive. Patient was seen and examined with the aid of a nurse using A/V equipment telehealth visit. Data 09/28/25 05:22 09/28/25 05:22 Micro: Microbiology 09/27/25 12:38 Blood Culture - Preliminary Blood NEGATIVE TO DATE 09/27/25 12:00 Blood Culture - Preliminary Blood NEGATIVE TO DATE 09/27/25 12:00 Urine Culture - Preliminary Urine,Clean Catch A&P Assessment and plan 1. End stage renal disease on dialysis: 75-year-old lady ESRD diabetes hypertension hyperlipidemia. Recent arm surgery in the summer that has been complicated by bleeding and infection. Patient is here now with altered mental status. Mental status improving with antibiotics. However would also consider decreasing gabapentin and/or amitriptyline. 1. ESRD dialysis in the morning. Patient had hyperkalemia on admission as she was related to dialysis. Would continue normal potassium diet as today's potassium was 4.8. 2. Altered mental status can be from medications plus minus infection. Consider complete neurological evaluation as outpatient. Head CT without significant bleed. -Stable extra-axial lesion overlying the left parietal vertex measuring up to 2.3 cm. Recommend clinical correlation and follow-up imaging as clinically warranted. 3. Diabetic management as per endocrinology and hospitalist. 4. Hypothyroidism- check tsh 5. Anemia hemoglobin acceptable for ESRD. 6. Monocytopenia monitor platelets. Can be from infection and or medication. 7. Medications reviewed. Aluminum based medications with ESRD. Patient seen and examined with the aid of a nurse using A/V present as a telehealth visit. Patient consented to telehealth and hemodialysis. Plan: Antibiotics. Plan for hemodialysis in the morning PDMP PDMP Reviewed: Not Reviewed Consult Attestations Medical Necessity Statement: Per hospitalist on IV antibiotics Time Spent in Patient Care: Greater than 35 minutes (>than 50% of time spent in counselling and/or direct pt care on unit). Coding Level of Care Code Acute Code for Chg Fwd Diagnoses End stage renal disease on dialysis N18.6; Z99.2
[2025-09-29] VITALS (10 sets, daily range): BP systolic 104–158; BP diastolic 50–105; PULSE 69–84; RESP 16–18; TEMP 36.2–36.9; O2SAT 84–97
[2025-09-29 03:35] LABS: Hepatitis B Surface Antigen Non-Reactive (Nonreactive)
[2025-09-29] MEDS: cefTRIAXone 1,000 mg SDV 1000 MG IVP ×2 (04:50→22:06)
[2025-09-29 06:10] LABS: Hematocrit 33.7 % (36-47); Hemoglobin 10.60 g/dL (11.27-16.99); Mean Corpuscular HGB Conc 31.5 g/dL (30-55); Mean Corpuscular Hemoglobin 29.4 pg (27-33); Mean Corpuscular Volume 93.6 fl (85-98); Nucleated Red Blood Cells % 0.3 %; Platelet Count 162 10^3/cmm (157-399); Red Blood Count 3.60 10^6/uL (3.85-5.65); White Blood Count 5.89 10^3/uL (3.29-11.43)
[2025-09-29 06:35] LABS: Alanine Aminotransferase 11 U/L (0-33); Albumin Level 3.7 g/dL (3.5-5.2); Alkaline Phosphatase 127 U/L (35-105); Anion Gap 14.8 (5-19); Aspartate Amino Transferase 13 U/L (0-32); Blood Urea Nitrogen 20 mg/dL (8-23); Calcium 8.8 mg/dL (8.5-10.5); Carbon Dioxide 26 mmol/L (22-29); Chloride 97 mmol/L (98-107); Globulin 3.4 g/dL (1.3-4.6); Glucose 104 mg/dL (65-115); Magnesium 2.2 mg/dL (1.7-2.3); Osmolality Calculated 279 mOsm/kg (285-295); Potassium 4.8 mmol/L (3.5-5.1); Sodium 133 mmol/L (136-145); Total Protein 7.1 g/dL (6.6-8.7)
[2025-09-29 06:45] LABS: Thyroid Stimulating Hormone 9.67 uIU/mL (0.27-4.20)
--- NOTE | 2025-09-29 07:38 | PM.PN ---
Subjective Subjective: Patient is a very pleasant 75-year-old female seen and examined at bedside on hospital rounds this morning. Patient states bilateral hip pain not resting well but denies new or worsening symptoms. Patient mentation seems to be at her baseline A&O x 4. Patient will have dialysis this morning under direction of nephrology. Hemoglobin stable 10.60, sodium 133, potassium 4.8, creatinine 3.8. Blood pressure 126/50, vital signs are stable, O2 saturation was mistakenly entered as 84 but this is the patient's pulse oxygen saturation greater than 92%. Patient does continue to have itching on her left arm scratched open skin, area cleaned and dressing replaced. Currently awaiting physical therapy and Occupational Therapy evaluation and recommendations, we will continue current interventions inpatient. Vitals/I&O/Wt Last Vital Signs Temp 97.7 F 09/29/25 04:00 Pulse 77 09/29/25 04:00 Resp 17 09/29/25 04:00 BP 127/77 09/29/25 04:00 Pulse Ox 96 09/29/25 04:00 O2 Del Method Room Air 09/28/25 20:00 09/28/25 09/29/25 09/29/25 22:59 06:59 14:59 Intake Total 480 / 1460 120 / 1580 Balance 480 / 1460 120 / 1580 Weight last 48 hrs Weight 58.967 kg Weight 59.052 kg Weight 59.052 kg Weight 58.06 kg Physical Exam Narrative: General: Alert and oriented, lying comfortably without any distress and able to communicate and interact HEENT: Normocephalic, atraumatic, grossly unremarkable exam Cardio: normal rate rhythm, normal S1-S2 without any murmurs, rubs, or gallops and JVD normal Respiratory: normal vascular breathing on auscultation without any wheezes, stridor, rhonchi GI: Abdomen soft, nontender, nondistended, normoactive bowel sounds present all 4 quadrants, Neuro: intact cranial nerves motor and sensory and cerebellar/coordination function without any focal neurological deficit Behavior: Appropriate and cooperative Extremities: Adequate palpable pulses, bilateral trace edema, having left arm with dressings and mild oozing can be seen through the dressing. Peripheral pulses of the arm palpable Data 09/29/25 05:15 09/29/25 05:15 Micro: Microbiology 09/27/25 12:38 Blood Culture - Preliminary Blood NEGATIVE TO DATE 09/27/25 12:00 Blood Culture - Preliminary Blood NEGATIVE TO DATE 09/27/25 12:00 Urine Culture - Preliminary Urine,Clean Catch A&P Assessment and plan 1. Acute encephalopathy: Head CT; no acure intracranial abnormality Acute encephalopathy related to possible left arm cellulitis and UTI? 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 End stage renal disease: Greatly appreciate nephrology consultation and management Patient on dialysis and to follow the schedule for dialysis Avoid nephrotoxic agents Monitor CMP 3. Left arm cellulitis: Patient having left arm cellulitis and history of left arm fracture following with orthopedics as outpatient Continue wound care and to follow outpatient wound care as the patient is already following Continue IV ceftriaxone 1 g daily 4. Recurrent UTI: Repeat UA and follow urine cultures Continue ceftriaxone 1 g daily 5. Hypokalemia: Corrected Magnesium WNL EKG Telemetry 6. Uncontrolled type 2 diabetes mellitus with hyperglycemia: Patient on Ozempic as per notes from veterinary pharmacologist Continue inpatient insulin sliding scale with monitoring of blood glucose 7. Hypothyroidism, unspecified type: Continue home levothyroxine dose 8. Thrombocytopenia: Patient having thrombocytopenia however no acute source of bleeding or acute blood loss, stable today 162 Continue to monitor Heparin twice daily to continue as VTE prophylaxis Monitor 9. HTN (hypertension): Currently blood pressure is more or less in the normal range and sometimes on the softer side To hold any antihypertensive medications Continue midodrine 10 mg 3 times daily - stated allergy with itching Plan: Diet: Renal dialysis diet VTE: Heparin twice daily PDMP PDMP Reviewed: Not Reviewed Attestations Medical Necessity Statement*: Continued inpatient management greater than 2 midnights with improving encephalopathy, UTI, cellulitis - continued IV antibiotic therapy and ESRD with dialysis/nephrology consulting, complex medical management. Coding Level of Care Code 39173 Diagnoses Acute encephalopathy G93.40 End stage renal disease N18.6 Left arm cellulitis L03.114 Recurrent UTI N39.0 Hypokalemia E87.6 Uncontrolled type 2 diabetes mellitus with hyperglycemia Hypothyroidism, unspecified type E03.9 Thrombocytopenia D69.6 HTN (hypertension) I10
--- NOTE | 2025-09-29 08:28 | P.PN_ITS ---
Subjective 2 Subjective: getting dialysis Medications: Reviewed: Yes Vitals/I&O/Wt Last Vital Signs Temp 98.1 F 09/29/25 08:00 Pulse 84 09/29/25 08:00 Resp 16 09/29/25 08:00 BP 126/50 09/29/25 08:00 Pulse Ox 84 L 09/29/25 08:00 O2 Del Method Room Air 09/28/25 20:00 09/28/25 09/29/25 09/29/25 22:59 06:59 14:59 Intake Total 480 / 1460 120 / 1580 Balance 480 / 1460 120 / 1580 Weight last 48 hrs Weight 58.967 kg Weight 59.052 kg Weight 59.052 kg Weight 58.06 kg Physical Exam 2 Narrative: Patient is in bed no apparent distress vital signs noted. HEENT normocephalic atraumatic. Neck is supple no JVD. Lungs have good air movement. Heart is regular no rubs or gallops. Abdomen is soft positive bowel sounds. Extremities left upper extremity is bandaged and wrapped. Right arm AV fistula with good thrill and bruit. Legs do not have significant edema. Neuro awake and alert interactive. Patient was seen and examined with the aid of a nurse using A/V equipment telehealth visit. Data 09/29/25 05:15 09/29/25 05:15 Micro: Microbiology 09/27/25 12:38 Blood Culture - Preliminary Blood NEGATIVE TO DATE 09/27/25 12:00 Blood Culture - Preliminary Blood NEGATIVE TO DATE 09/27/25 12:00 Urine Culture - Preliminary Urine,Clean Catch A&P Assessment and plan 1. End stage renal disease on dialysis: 75-year-old lady ESRD diabetes hypertension hyperlipidemia. Recent arm surgery in the summer that has been complicated by bleeding and infection. Patient is here now with altered mental status. Mental status improving with antibiotics. consider decreasing gabapentin and/or amitriptyline. 1. ESRD , HD today ,UF as tolerated 2. Altered mental status , improved , metabolic encephalopathy. 3. Anemia hemoglobin acceptable for ESRD. 4. UTI , on abx 5.hyponatremia , mild , monitor Patient seen and examined with the aid of a nurse using A/V present as a telehealth visit. Patient consented to telehealth and hemodialysis. Plan: Antibiotics. Plan for hemodialysis in the morning PDMP PDMP Reviewed: Not Reviewed Attestations 2 Medical Necessity Statement*: per medicine Coding Level of Care Code Acute Code for Chg Fwd Diagnoses End stage renal disease on dialysis N18.6; Z99.2
[2025-09-29] MEDS: heparin 5,000 unit/mL INJ 1 mL 5000 UNIT SUBCUT ×2 (09:10→22:08)
--- NOTE | 2025-09-29 09:49 | PC.HD ---
Due to patient's continued falling BPs during dialysis despite interventions, Dr. Arredondo requested treatment be terminated early after approximately 1.5 hours. UF goal was 1500 mL; 381 mL net fluid removal obtained. After treatment termination, SBP increased to >100 and patient remained asymptomatic throughout. Patient returned to room voicing no complaints.
--- NOTE | 2025-09-29 10:03 | PC.SOCIAL ---
Updated IMM Updated pt's on IMM. No questions voiced. Provided pt a copy. Initialed, dated, & timed a copy & placed in chart.
[2025-09-29] MEDS: pantoprazole 40 mg SDV IVP (22:06)
[2025-09-30 01:00] VITALS: BP 116/67; PULSE 78; RESP 14; TEMP 36.7; O2SAT 97
[2025-09-30 02:48] VITALS: RESP 18; O2SAT 97
[2025-09-30] MEDS: morphine 4 mg/mL SDV 1 mL IVP (02:48)
[2025-09-30 05:27] VITALS: BP 124/67; PULSE 71; RESP 16; TEMP 36.7; O2SAT 90
--- NOTE | 2025-09-30 05:39 | P.PN_ITS ---
Subjective 2 Subjective: s/p HD yesterday Medications: Reviewed: Yes Vitals/I&O/Wt Last Vital Signs Temp 98.1 F 09/30/25 05:27 Pulse 71 09/30/25 05:27 Resp 16 09/30/25 05:27 BP 124/67 09/30/25 05:27 Pulse Ox 90 09/30/25 05:27 O2 Del Method Room Air 09/28/25 20:00 09/29/25 09/29/25 09/30/25 14:59 22:59 06:59 Intake Total 940 / 940 240 / 1180 240 / 1420 Output Total 981 / 981 Balance -41 / -41 240 / 199 240 / 439 Weight last 48 hrs Weight 63.957 kg Weight 64 kg Weight 58.967 kg Weight 59.052 kg Physical Exam 2 Narrative: Patient is in bed no apparent distress vital signs noted. HEENT normocephalic atraumatic. Neck is supple no JVD. Lungs have good air movement. Heart is regular no rubs or gallops. Abdomen is soft positive bowel sounds. Extremities left upper extremity is bandaged and wrapped. Right arm AV fistula with good thrill and bruit. Legs do not have significant edema. Neuro awake and alert interactive. Patient was seen and examined with the aid of a nurse using A/V equipment telehealth visit. Data 09/29/25 05:15 09/30/25 08:24 Micro: Microbiology 09/27/25 12:00 Urine Culture - Final Urine,Clean Catch A&P Assessment and plan 1. End stage renal disease on dialysis: 75-year-old lady ESRD diabetes hypertension hyperlipidemia. Recent arm surgery in the summer that has been complicated by bleeding and infection. Patient is here now with altered mental status. Mental status improving with antibiotics. consider decreasing gabapentin and/or amitriptyline. 1. ESRD , HD done yesterday ,UF as tolerated 2. Altered mental status , improved , metabolic encephalopathy. 3. Anemia hemoglobin acceptable for ESRD. 4. UTI , on abx 5.hyponatremia , mild , monitor Patient seen and examined with the aid of a nurse using A/V present as a telehealth visit. Patient consented to telehealth and hemodialysis. Plan: Antibiotics. Plan for hemodialysis in the morning PDMP PDMP Reviewed: Not Reviewed Attestations 2 Medical Necessity Statement*: per medicine Coding Level of Care Code Acute Code for Chg Fwd Diagnoses End stage renal disease on dialysis N18.6; Z99.2
[2025-09-30 07:48] VITALS: BP 147/72; PULSE 84; RESP 16; TEMP 36.6; O2SAT 93
[2025-09-30] MEDS: heparin 5,000 unit/mL INJ 1 mL 5000 UNIT SUBCUT (08:31)
[2025-09-30 09:15] LABS: Anion Gap 14.3 (5-19); Blood Urea Nitrogen 20 mg/dL (8-23); Calcium 8.8 mg/dL (8.5-10.5); Carbon Dioxide 26 mmol/L (22-29); Chloride 96 mmol/L (98-107); Glucose 147 mg/dL (65-115); Osmolality Calculated 279 mOsm/kg (285-295); Potassium 4.3 mmol/L (3.5-5.1); Sodium 132 mmol/L (136-145)
--- NOTE | 2025-09-30 10:10 | P.DS_ITS ---
Discharge Providers Date of Admission: 09/27/25 16:13 Date of Discharge: September 30, 2025 Attending Provider at Admission: Ponce Huerta MD Attending Provider at Discharge: Renee Martinez NP Primary Care Provider: Cesar Mendez MD Diagnoses at Discharge Discharge Diagnosis 1. End stage renal disease on dialysis: Reason for Visit Reason for Visit: AMS Brief History: Admission: María Saab is a 75 year old female with pmhx of HTN, HLD, DM. ESRD, and hypothyroidism presenting with complaints of altered mental status. Patient family reports that on 09/22/25 she went to dialysis and had some confusion - asking staff to cut the sleeves off her shirt. The next day she had confused speech. 09/23/25 she appeared more alert but had chills. Family suspects she may have had infection after hiding a left arm wound that was related to a (06/2025) left arm fracture and surgery. The arm site was hard, warm, swollen, and required a course of outpatient antibiotics. 09/26/25 she put napkins instead of bread in the toaster, and became more aware of hallucinations of people and animals in her home. Overall, patient has had declining mentation and recurrent UTI's for approximately 1.5 years. She was found to be taking her medicine from three bowls - mixed in was a lot of benadryl. Family reports she may have thought they were bowls of candy. Today, she became so confused and weak that she could not feed herself. She was transported to [facility] ED for further evaluation and treatment. Son is at bedside. Hospital Course Hospital Course 1. Acute encephalopathy: Head CT; no acure intracranial abnormality Acute encephalopathy related to possible left arm cellulitis and UTI? 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 End stage renal disease: Greatly appreciate nephrology consultation and management Patient on dialysis and to follow the schedule for dialysis Avoid nephrotoxic agents Monitor CMP 3. Left arm cellulitis: Patient having left arm cellulitis and history of left arm fracture following with orthopedics as outpatient Continue wound care and to follow outpatient wound care as the patient is already following Continue IV ceftriaxone 1 g daily 4. Recurrent UTI: Repeat UA and follow urine cultures Continue ceftriaxone 1 g daily 5. Hypokalemia: Corrected Magnesium WNL EKG Telemetry 6. Uncontrolled type 2 diabetes mellitus with hyperglycemia: Patient on Ozempic as per notes from slitter and rewinder Continue inpatient insulin sliding scale with monitoring of blood glucose 7. Hypothyroidism, unspecified type: Continue home levothyroxine dose 8. Thrombocytopenia: Patient having thrombocytopenia however no acute source of bleeding or acute blood loss, stable today 162 Continue to monitor Heparin twice daily to continue as VTE prophylaxis Monitor 9. HTN (hypertension): Currently blood pressure is more or less in the normal range and sometimes on the softer side To hold any antihypertensive medications Continue midodrine 10 mg 3 times daily - stated allergy with itching Patient had complete resolution of confusion, blood cultures with no growth to date, urine culture with mixed swetha. Patient does have outpatient referral to neurology for stable extra-axial lesion overlying the left periorbital vertex measuring up to 2.[address] of head. Recommended further outpatient imaging as clinically warranted. Transition from IV antibiotic therapy to oral antibiotic therapy clindamycin for continued treatment of left arm cellulitis. Patient does already have outpatient wound care follow-up scheduled for Thursday. Spoke with patient and her spouse, refusing home health, relayed that this was still an option for them should they change their minds. Patient discharged in stable condition in care of spouse, prescription sent to pharmacy, advised decrease gabapentin and holding amitriptyline until reviewed by primary care provider. Did review discharge, okayed by needle control cheniller . Advised follow-up with primary care provider in 1 to 3 days, dialysis at next available appointment. All questions and concerns addressed the patient and her family at the bedside prior to discharge. Physical Exam Narrative: General: Alert and oriented, lying comfortably without any distress and able to communicate and interact HEENT: Normocephalic, atraumatic, grossly unremarkable exam Cardio: normal rate rhythm, normal S1-S2 without any murmurs, rubs, or gallops and JVD normal Respiratory: normal vascular breathing on auscultation without any wheezes, stridor, rhonchi GI: Abdomen soft, nontender, nondistended, normoactive bowel sounds present all 4 quadrants, Neuro: intact cranial nerves motor and sensory and cerebellar/coordination function without any focal neurological deficit Behavior: Appropriate and cooperative Extremities: Adequate palpable pulses, bilateral trace edema, having left arm with dressings and mild oozing can be seen through the dressing. Peripheral pulses of the arm palpable Discharge Data Studies Completed and Pending Completed Studies During Hospitalization Category Date Time Status CT head wo con* [id number] Stat Cat Scan 09/27/25 11:36 Completed XR chest 1V portable [id number] Stat Exams 09/27/25 11:36 Completed Pending at discharge Category Date Time Status Blood Culture Stat Lab 09/27/25 12:38 Results UA w/Reflex to Microscope [Urinalysis] Routine Lab 09/28/25 21:03 Uncollected Radiology Impressions Chest X-Ray 09/27/25 11:36 IMPRESSION: Presumed small remnant right pleural effusion. No acute/subacute pulmonary parenchymal or pleural abnormality. Head CT 09/27/25 11:36 IMPRESSION: 1. No acute intracranial abnormality. If symptoms persist, consider further evaluation with MRI, if there are no contraindications to obtaining a MRI scan. 2. Stable extra-axial lesion overlying the left parietal vertex measuring up to 2.3 cm. Recommend clinical correlation and follow-up imaging as clinically warranted. Laboratory Results WBC 5.89 10^3/uL (3.29-11.43) 09/29/25 05:15 RBC 3.60 10^6/uL (3.85-5.65) L 09/29/25 05:15 Hgb 10.60 g/dL (11.27-16.99) L 09/29/25 05:15 Hct 33.7 % (36-47) L 09/29/25 05:15 MCV 93.6 fl (85-98) 09/29/25 05:15 MCH 29.4 pg (27-33) 09/29/25 05:15 MCHC 31.5 g/dL (30-55) 09/29/25 05:15 RDW 18.9 % (12.1-15.1) H 09/29/25 05:15 Plt Count 162 10^3/cmm (157-399) 09/29/25 05:15 MPV 11.4 fL (7.4-10.4) H 09/29/25 05:15 Neut % (Auto) 75.8 % 09/29/25 05:15 Lymph % (Auto) 12.7 % 09/29/25 05:15 [place] % (Auto) 7.8 % 09/29/25 05:15 Eos % (Auto) 2.5 % 09/29/25 05:15 Baso % (Auto) 0.5 % 09/29/25 05:15 Neut # (Auto) 4.46 10^3/uL (1.8-7.7) 09/29/25 05:15 Lymph # (Auto) 0.8 10^3/uL (0.8-4.8) 09/29/25 05:15 [place] # (Auto) 0.5 10^3/uL (0.2-0.9) 09/29/25 05:15 Eos # (Auto) 0.2 10^3/uL (0.0-0.8) 09/29/25 05:15 Baso # (Auto) 0.0 10^3/uL (0.0-0.1) 09/29/25 05:15 Nucleated RBC % (auto) 0.3 % 09/29/25 05:15 Nucleated RBCs # 0.0 /100WBC 09/29/25 05:15 Sodium 132 mmol/L (136-145) L 09/30/25 08:24 Potassium 4.3 mmol/L (3.5-5.1) 09/30/25 08:24 Chloride 96 mmol/L (98-107) L 09/30/25 08:24 Carbon Dioxide 26 mmol/L (22-29) 09/30/25 08:24 Anion Gap 14.3 (5-19) 09/30/25 08:24 BUN 20 mg/dL (8-23) 09/30/25 08:24 Creatinine 4.1 mg/dL (0.5-0.9) H 09/30/25 08:24 GFR Calculation Not Reportable 09/30/25 08:24 Glucose 147 mg/dL (65-115) H 09/30/25 08:24 POC Glucose 102 mg/dL (70-110) 09/30/25 06:40 Calculated Osmolality 279 mOsm/kg (285-295) L 09/30/25 08:24 Lactic Acid 0.7 mmol/L (0.5-2.2) 09/27/25 12:00 Calcium 8.8 mg/dL (8.5-10.5) 09/30/25 08:24 Phosphorus 3.8 mg/dL (2.5-4.5) 09/29/25 05:15 Magnesium 2.2 mg/dL (1.7-2.3) 09/29/25 05:15 Total Bilirubin 0.5 mg/dL (0.15-1.2) 09/29/25 05:15 AST 13 U/L (0-32) 09/29/25 05:15 ALT 11 U/L (0-33) 09/29/25 05:15 Alkaline Phosphatase 127 U/L (35-105) H 09/29/25 05:15 C-Reactive Protein 12.6 mg/L (0.0-4.9) H 09/27/25 12:00 NT-Pro-B Natriuret Pep 03088 pg/mL (0-450) H 09/30/25 08:24 Total Protein 7.1 g/dL (6.6-8.7) 09/29/25 05:15 Albumin 3.7 g/dL (3.5-5.2) 09/29/25 05:15 Globulin 3.4 g/dL (1.3-4.6) 09/29/25 05:15 Procalcitonin 0.10 ng/mL (0-0.5) 09/27/25 12:00 TSH 9.67 uIU/mL (0.27-4.20) H 09/29/25 05:15 Urine Color Dark yellow (Yellow) A 09/27/25 12:00 Urine Appearance Cloudy (CLEAR) A 09/27/25 12:00 Urine pH 5.5 (5-7) 09/27/25 12:00 Ur Specific [place] 1.022 (1.005-1.030) 09/27/25 12:00 Urine Protein 3+ (Negative) A 09/27/25 12:00 Urine Glucose (UA) 2+ (Normal) H 09/27/25 12:00 Urine Ketones Trace (Negative) 09/27/25 12:00 Urine Blood Negative (Negative) 09/27/25 12:00 Urine Nitrate Negative (Negative) 09/27/25 12:00 Urine Bilirubin 1+ (Negative) H 09/27/25 12:00 Urine Urobilinogen 1.0 mg/dL (Negative) 09/27/25 12:00 Ur Leukocyte Esterase 1+ (Negative) A 09/27/25 12:00 Urine RBC 11-20 /hpf (0-2) H 09/27/25 12:00 Urine WBC 11-20 /hpf (0-5) H 09/27/25 12:00 Ur Squamous Epith Cells 11-20 /hpf (0-5) H 09/27/25 12:00 Amorphous Sediment 1+ /hpf 09/27/25 12:00 Urine Bacteria Trace /hpf (NONE) 09/27/25 12:00 Hyaline Casts 32.24 /lpf 09/27/25 12:00 Urine Yeast Trace /hpf 09/27/25 12:00 Hep Bs Antigen Non-reactive (Nonreactive) 09/28/25 05:22 Hep Bs Antibody 173.5 (11.5-1000) 09/28/25 05:22 Hepatitis C Antibody Non-reactive (Nonreactive) 09/28/25 05:22 Vitals Last Vital Signs Temp 97.9 F 09/30/25 07:48 Pulse 84 09/30/25 07:48 Resp 16 09/30/25 07:48 BP 147/72 09/30/25 07:48 Pulse Ox 93 09/30/25 07:48 O2 Del Method Room Air 09/30/25 07:48 Discharge Plan Discharge Patient Disposition: Home Condition: Stable Prescriptions: New clindamycin HCl [Cleocin HCl] 300 mg capsule 300 mg PO BID 7 Days Qty: 14 0RF Continued (DME) FreeStyle Anita 2 [place] Misc See Rx Instructions .Route Qty: 1 0RF Rx Instructions: check blood sugar (DME) FreeStyle Anita 2 Sensor Kit See Rx Instructions .Route Qty: 3 3RF Rx Instructions: check blood sugar (DME) wheel chair See Rx Instructions .Route .MEDSUPPLY Qty: 1 0RF Rx Instructions: As directed (DME) Sling See Rx Instructions .Route .MEDSUPPLY Qty: 1 0RF Rx Instructions: As directed Prolia 60 mg/mL syringe 60 mg SUBCUT .[id number] Qty: 1 0RF Rx Instructions: at infusions levothyroxine [Synthroid] 25 mcg tablet 25 mcg PO DAILY Qty: 90 1RF Rx Instructions: Along with 200mcg [id number] total levothyroxine 200 mcg tablet 200 mcg PO DAILY Qty: 30 0RF Rx Instructions: Along with 25mcg [id number] total tamsulosin 0.4 mg capsule 0.4 mg PO QAM ropinirole 1 mg tablet 1 mg PO BEDTIME RenaPlex-D 800 mcg-12.5 mg -2,000 unit tablet 1 tab PO QAM prednisolone acetate 1 % drops,suspension 1 drp ophthalmic (eye) QID glipizide 5 mg tablet 5 mg PO TID Dialyvite 800-Ultra D 0.8-2,000 mg-unit tablet 1 tab PO QAM gabapentin 100 mg capsule 100 mg PO BEDTIME ferric citrate [Auryxia] 210 mg iron tablet 1 tab PO TID midodrine 10 mg tablet 10 mg PO Q8H Ozempic 0.25 mg or 0.5 mg (2 mg/3 mL) pen injector 0.5 mg SUBCUT Q7D Held amitriptyline 100 mg tablet 100 mg PO BEDTIME Hold Instructions: Resume on 10/10/25. Resume under the direction of PCP Discontinued cephalexin 500 mg capsule 500 mg PO Q6H Discharge Order = DC NOW: Discharge Order (Routine); Ordered 09/30/25 Ordered By: Renee Martinez Referrals: Nellie Simons MD [Physician, Neurology] - 1 week Referral Note: We have notified your physician's clinic of the need for a follow-up appointment to be scheduled. If you have not heard from them within the next 2 business days, please call them directly. Cesar Mendez MD [Primary Care Provider, Family Practice] - 1-3 days Referral Note: We have notified your physician's clinic of the need for a follow-up appointment to be scheduled. If you have not heard from them within the next 2 business days, please call them directly. Discharge Diet: Usual diet Discharge Activity: Resume usual activity Patient Instructions: Clindamycin (By mouth), Urinary Tract Infection in Women (GEN), Altered Mental Status (ED), Opioid Safety, Patient Portal & Maisha Instructions Discharge Attestations Time Spent in Discharge Care*: greater than 30 min Status at Discharge: Cognitive status at discharge: cognitively intact , Behavioral status at discharge: cooperative , Quality Metrics Clinical Quality Measures [ No reported AMI, CVA or VTE this stay] Coding Level of Care Code 61281 Diagnoses End stage renal disease on dialysis N18.6; Z99.2
[2025-09-30 12:00] VITALS: BP 148/64; PULSE 88; RESP 14; TEMP 36.4; O2SAT 93
[2025-09-30 13:33] VITALS: BP 148/64; PULSE 88; RESP 14; TEMP 36.4; O2SAT 93
--- NOTE | 2025-09-30 13:35 | PC.NURSE ---
Left arm dressing change was done by this nurse. Xeroform, ABD, and kerlex was placed on wound bed. Discharge paperwork discussed with patient. All questions were answered. DANNY Mcintyre Charge removed port access. Family assisted patient with dressing. Patient was escorted to main entrance via wheelchair with all belongings and family present. Patient transferred into private vehicle, one assist at 1245.
== END 2025-09-30 12:45 | disposition home or self-care (01) | DRG 689 ==
LOC: ER 13:33 → ER IP 16:13 → MEDSURG 18:43
PROVIDERS: Clinical Nurse Specialist Acute Care; Hospitalist; Internal Medicine Nephrology; Student in an Organized Health Care Education/Training Program; Admitting Provider Family Medicine; Emergency Provider Emergency Medicine; PCP Family Medicine; Visit Provider Registered Nurse
DX: N39.0 Urinary tract infection, site not specified (principal); G93.41 Metabolic encephalopathy; N18.6 End stage renal disease; L03.114 Cellulitis of left upper limb; I12.0 Hypertensive chronic kidney disease with stage 5 chronic kidney disease or end stage renal disease; E87.1 Hypo-osmolality and hyponatremia; G93.9 Disorder of brain, unspecified; E11.65 Type 2 diabetes mellitus with hyperglycemia; E87.6 Hypokalemia; D69.6 Thrombocytopenia, unspecified; E78.5 Hyperlipidemia, unspecified; E03.9 Hypothyroidism, unspecified; D63.1 Anemia in chronic kidney disease; E11.22 Type 2 diabetes mellitus with diabetic chronic kidney disease; Z99.2 Dependence on renal dialysis; Z79.890 Hormone replacement therapy; Z88.5 Allergy status to narcotic agent; Z88.0 Allergy status to penicillin; Z88.8 Allergy status to other drugs, medicaments and biological substances; Z87.442 Personal history of urinary calculi; Z90.49 Acquired absence of other specified parts of digestive tract
CPT/HCPCS: 36415; 36416; 36591; 70450; 71045; 80048; 80053; 81001; 82962; 83605; 83735; 83880; 84100; 84145; 84443; 85025; 86140; 86706; 86803; 87040; 87086; 87340; 90935; 96372; 96374; 96375; 96376; 97161; 97166; 97597; 97598; 99213; 99285; J0696; J1644; J1815; J2270; J2405; J2470; J3480; J7040; J7050; J9999; P9047

== ENCOUNTER → 2025-10-02 14:43 | Outpatient (BNVA) | payer MEDICARE, OTHER, SELFPAY | PROVIDERS: PCP Family Medicine; Visit Provider Thoracic Surgery (Cardiothoracic Vascular Surgery) | DX: I96 Gangrene, not elsewhere classified (principal); S40.812D Abrasion of left upper arm, subsequent encounter; X58.XXXD Exposure to other specified factors, subsequent encounter | CPT/HCPCS: 97597 ==